=== PATIENT | male | born 1960 | race Caucasian/White ===

== ENCOUNTER 2019-12-21 14:21 | Emergency (ER) | payer OTHER, SELFPAY ==
--- NOTE | ~2019-12-21 | XR_ITS ---
EXAMINATION: XR chest 2V DATE: 12/21/2019 15:16 INDICATION: Mid to left chest pain TECHNIQUE: PA and lateral views of the chest are obtained. COMPARISON: 10/31/2018 FINDINGS: The lungs are free of acute opacities. There is no pleural effusion or pneumothorax. The ca rdiomediastinal silhouette is normal. There is mild thoracic spondylosis. IMPRESSION: 1. No acute cardiopulmonary abnormality. Reviewed, dictated and finalized at location A. T OR NUT CROPS FARM MANAGER
--- NOTE | 2019-12-21 14:52 | ECG_ITS ---
Measurements Intervals [place] Rate: 60 P: 40 [place]: 149 QRS: 39 QRSD: 117 T: 52 QT: 385 QTc: 386 Interpretive Statements SINUS RHYTHM INTRAVENTRICULAR CONDUCTION DELAY BORDERLINE ECG Electronically Signed On 12-21-2019 14:55:02 DISTILLERY LABORER by Manny Urban D.O.
[2019-12-21 14:53] VITALS: BP 125/77; PULSE 62; RESP 16; TEMP 36.9; O2SAT 98
[2019-12-21 15:06] LABS: Basophils Absolute Auto 0.1 K/mm3 (0.0-0.1); Basophils Percent Auto 0.9 % (0.2-1.2); Eosinophils Absolute Auto 0.1 K/mm3 (0-0.3); Eosinophils Percent Auto 1.7 % (0-4.4); Hematocrit 39.5 % (42.0-52.0); Hemoglobin 12.6 g/dL (14.0-18.0); Immature Granulocyte Absolute 0.08 K/mm3 (0.00-0.031); Immature Granulocyte Percent A 1.1 % (0-0.5); Lymphocytes Absolute Auto 2.15 K/mm3 (0.9-3.2); Lymphocytes Percent Auto 28.3 % (18.3-44.2); Mean Corpuscular HGB Conc 31.9 g/dl (32-36); Mean Corpuscular Hemoglobin 31.4 pg (26-34); Mean Corpuscular Volume 98.5 fl (80-100); Mean Platelet Volume 10.1 fl (7.4-10.4); Monocytes Absolute Auto 0.8 K/mm3 (0.1-0.6); Monocytes Percent Auto 10.8 % (2.6-8.5); Neutrophils Absolute Auto 4.4 K/mm3 (1.3-6.7); Neutrophils Percent Auto 57.2 % (45.5-73.1); Platelet Count Result 319 k/mm3 (150-375); Red Blood Count 4.01 M/mm3 (4.6-6.20); Red Cell Distribution Width 13.2 % (11.5-14.5); White Blood Count 7.6 K/mm3 (4.5-10.0)
[2019-12-21 15:20] LABS: Blood Urea Nitrogen 36 mg/dL (9-20); Calcium 9.3 mg/dL (8.4-10.2); Carbon Dioxide 26 mmol/L (22-30); Chloride 104 mmol/L (98-107); Estimated CRCL calculation 34 ml/min; Estimated Glomerular Filt Rate 25; Glucose 99 mg/dL (75-110); Potassium 4.5 mmol/L (3.4-5.0); Sodium 140 mmol/L (137-145)
[2019-12-21 15:31] LABS: Troponin I < 0.012 ng/mL (0.000-0.034)
--- NOTE | 2019-12-21 15:33 | ED.CHESTPAIN ---
HPI - Chest Pain General Chief Complaint: Chest Pain Stated Complaint: CP Time Seen by Provider: 12/21/19 15:09 Source: patient and RN notes reviewed Mode of arrival: ambulatory Limitations: no limitations History of Present Illness HPI narrative: Pt is a 59 y/o male presenting to the ED c/o CP radiating to shoulders and arms. Pt reports he started experiencing lt sided CP radiating to his bilateral shoulders and BUE at 1200 this afternoon. Pt states his pain has since alleviated, but notes it was an 8/10 on the pain scale during its onset. Pt also reports ORDONEZ, but denies N/V. Pt notes he took 1 baby aspirin earlier this morning and Ibuprofen x2 earlier today. Pt notes he has a Hx of Stress LA 1 year ago, and sees Dr. Tee as his Clean Up Helper Banquet. Pt states he had a negative Cardiac Catheterization a year ago with no blockages. Pt states his current feels similar to a previous LA. Pt notes he currently takes Metoprolol 25 mg BID, Amlodipine, and Omeprazole due to a Hx of GERD. Pt states he also has a Hx of Poly-cystic kidney disease. Pt notes he quit smoking a year ago. Pertinent past history: prior LA Onset (ago): hour(s) (5) Pain location: left chest Pain radiation: right arm, left arm, left shoulder and right shoulder Associated symptoms: other (ORDONEZ) Related Data Home Medications Medication Instructions Recorded Confirmed amlodipine 12/21/19 aspirin [Aspirin Low Dose] 12/21/19 metoprolol tartrate 12/21/19 omeprazole 12/21/19 Allergies Allergy/AdvReac Type Severity Reaction Status Date / Time No Known Allergies Allergy Verified 12/21/19 15:56 Review of Systems Review of Systems: All systems reviewed & are unremarkable except as noted in HPI and below Cardiovascular: Cardiovascular: Reports chest pain (Lt sided radiating to bilateral shoulders and BUE) Gastrointestinal: Gastrointestinal: Denies nausea and Denies vomiting Neurologic: Reports headache(s) PMFSH Past Medical History Medical History Anemia Ankle fracture, left Asthma COPD (chronic obstructive pulmonary disease) Emphysema of lung GERD (gastroesophageal reflux disease) HTN (hypertension) Myocardial infarction NSTEMI Pneumonia Polycystic kidney disease Surgical History Surgical History History of bladder surgery S/P cardiac catheterization Social History Social History Smoking status: Former smoker Exam Narrative: Exam Narrative: GENERAL: Well-appearing, well-nourished, and in no acute distress. HEAD: Normocephalic, atraumatic EYES: PERRLA and EOMI, conjunctiva clear without discharge THROAT:Mucous membranes moist, Oropharynx normal without erythema, exudate, peritonsillar swelling or fluctuance NECK: Supple, without lymphadenopathy or mass RESPIRATORY: No respiratory distress, Airway patent, Respirations non-labored, Clear to auscultation without rales, rhonchi or wheeze HEART: Regular rate and rhythm. No murmur heard. Normal peripheral pulses. ABDOMEN: Soft, nontender, nondistended, normal active bowel sounds. No masses. No rebound or guarding, No organomegaly. EXTREMITIES: No edema, normal strength with full range of motion. SKIN: Warm, dry, normal color without rash NEURO: Alert and oriented x3. CN 2-12 grossly intact. No focal deficits. PSYCH: Normal mood and affect. Course Course Emergency Course: PAtient presented with chest pain. He has history of LA but he had negative cath 1 year ago and equity structurer thought likely due to coronary spasms so he is on CCB. Patient has been pain free. I have discussed that he needs follow up with a railcar foreman. He does not need to be admitted at this time. Consultations Consultation #1: Discussed case with Cardiology CLOTHING WORKER Aviva Huitron. Presumptively coronary spasms seen in patients chart. If Troponins are negative pt can be discharged with follow-up. Date:
[2019-12-21] MEDS: ASPIRIN 81 MG CHEWABLE TABLET 324 MG PO (15:54)
[2019-12-21] MEDS: LACTATED RINGERS 1,000 ML 999 ML IV CONT (15:55)
[2019-12-21 15:56] LABS: Partial Thromboplastin Time 30.5 SECONDS (22.3-36.8); Prothrombin Time 12.7 Seconds (11.1-14.7)
[2019-12-21 16:00] VITALS: BP 139/98; PULSE 54; RESP 12; O2SAT 100
[2019-12-21 17:00] VITALS: BP 141/88; PULSE 55; RESP 14; O2SAT 100
[2019-12-21 18:00] VITALS: BP 149/88; PULSE 55; RESP 16; O2SAT 96
[2019-12-21 18:40] LABS: Troponin I < 0.012 ng/mL (0.000-0.034)
[2019-12-21 19:29] VITALS: BP 136/96; PULSE 55; RESP 13; O2SAT 100
== END 2019-12-21 19:31 | disposition home or self-care (01) ==
PROVIDERS: Emergency Medicine; Emergency Provider General Practice; PCP Internal Medicine
DX: R07.9 Chest pain, unspecified (principal); N18.9 Chronic kidney disease, unspecified; I12.9 Hypertensive chronic kidney disease with stage 1 through stage 4 chronic kidney disease, or unspecified chronic kidney disease; K21.9 Gastro-esophageal reflux disease without esophagitis; J43.9 Emphysema, unspecified; I25.2 Old myocardial infarction; Q61.3 Polycystic kidney, unspecified; Z79.82 Long term (current) use of aspirin; Z87.891 Personal history of nicotine dependence; I45.9 Conduction disorder, unspecified
CPT/HCPCS: 36415; 71046; 80048; 84484; 85025; 85610; 85730; 93005; 96360; 96361; 99284; A9270; J7120

== ENCOUNTER 2019-12-24 08:37 | Outpatient (CLI) | payer OTHER, SELFPAY ==
--- NOTE | ~2019-12-24 | US_ITS ---
EXAMINATION: US abdomen complete EXAM DATE: 12/24/2019 11:18 INDICATION: Polycystic kidneys. Abdominal bloating. TECHNIQUE: Multiple grayscale and Doppler images of the complete abdomen were obtained (by a technolo lazaro who performed the scan) and subsequently reviewed. Comparison is made to prior examination from 10/31/2018. FINDINGS: The abdominal aorta is normal in caliber. Visualized portion IVC is patent. The pancreatic head a nd body are normal in appearance. The pancreatic tail is not visualized. The liver has normal echogenicity and contour. Again there are multiple liver cysts. There is again a hyperechoic left liver lobe region measuring up to 2.7 cm, another region measuring 2.5 cm. These d o not appear significantly changed. There is no evidence of intrahepatic biliary duct dilation. Por amari venous flow was seen in the hepatopedal, normal direction and has normal Doppler waveform. Common bile duct measures 4 mm, which is normal. The gallbladder wall is normal in thickness, with ex pected amount of distention. No sonographic evidence of pericholecystic fluid. There is no cholelit hiases. Technologist performing exam reports patient did not demonstrate sonographic Ojeda's sign. Please note that this sign is less reliable in patients who have received pain medication. Right kidney: The right kidney measures 28 cm x 15 x 13 cm with innumerable cysts, autosomal dominant polycystic kidney disease. No definite evidence of hydronephrosis. Left kidney: Left kidney measures 25 x 10 x 12 cm, also innumerable cysts. No definite left-sided hyd ronephrosis. The spleen measures 11.8 x 6.5 centimeters and is morphologically normal. IMPRESSION: 1. Autosomal dominant polycystic kidney disease. 2. Liver cysts and at least 2 hyperechoic regions, which also appear unchanged. Reviewed, dictated and finalized at location B. TABLE OPERATOR IMPRESSION: 1. Autosomal dominant polycystic kidney disease. 2. Liver cysts and at least 2 hyperechoic regions, which also appear unchanged .
== END 2019-12-24 08:38 | disposition home or self-care (01) ==
LOC: CHSIMG 08:40
PROVIDERS: PCP Internal Medicine; Visit Provider Internal Medicine
DX: R14.0 Abdominal distension (gaseous) (principal); Q61.3 Polycystic kidney, unspecified
CPT/HCPCS: 76700

== ENCOUNTER 2020-02-15 08:17 | Outpatient (CLI) | payer OTHER, SELFPAY ==
[2020-02-15 08:32] LABS: Basophils Absolute Auto 0.07 K/mm3 (0.00-0.10); Eosinophils Absolute Auto 0.14 K/mm3 (0.02-0.50); Eosinophils Percent Auto 1.9 % (1.0-6.0); Hemoglobin 13.2 g/dL (14.0-18.0); Immature Granulocyte Absolute 0.07 K/mm3 (0.00-0.00); Lymphocytes Absolute Auto 2.11 K/mm3 (1.10-4.50); Lymphocytes Percent Auto 28.7 % (18.0-42.0); Mean Corpuscular HGB Conc 31.4 g/dL (32.0-36.0); Mean Corpuscular Hemoglobin 30.5 pg (27.0-31.0); Monocytes Absolute Auto 0.82 K/mm3 (0.10-0.90); Monocytes Percent Auto 11.2 % (2.0-11.0); Neutrophils Absolute Auto 4.1 K/mm3 (1.7-7.2); Neutrophils Percent Auto 56.2 % (50.0-70.0); Platelet Count Result 288 K/mm3 (150-420); Red Blood Count 4.33 M/mm3 (4.70-6.10); Red Cell Distribution Width 12.9 % (11.6-14.4); White Blood Count 7.3 K/mm3 (4.8-10.8)
[2020-02-15 08:47] LABS: Creatinine Urine 74.69 mg/dL (40-278); Total Protein Urine Random 36.5 mg/dL (0.0-11.9)
[2020-02-15 10:04] LABS: Albumin Level 4.1 g/dL (3.4-5.0); Anion Gap 14.1 mmol/L (7-16); Blood Urea Nitrogen 44 mg/dL (7-18); Calcium 9.2 mg/dL (8.5-10.1); Carbon Dioxide 28 mmol/L (21-32); Chloride 105 mmol/L (98-108); Estimated Glomerular Filt Rate 27; Glucose 106 mg/dL (70-99); Osmolality Calculated 305 mOsm/kg (285-295); Potassium 5.1 mmol/L (3.5-5.1); Sodium 142 mmol/L (136-145)
[2020-02-17 09:44] LABS: Parathyroid Intact 75 pg/mL (14-64)
[2020-02-18 02:03] LABS: Vitamin D 25 Hydroxy 25 ng/mL (30-100)
== END 2020-02-15 08:18 | disposition home or self-care (01) ==
LOC: CHSLAB 08:19
PROVIDERS: PCP Internal Medicine; Visit Provider Internal Medicine Nephrology
DX: N18.4 Chronic kidney disease, stage 4 (severe) (principal); Q61.3 Polycystic kidney, unspecified; I12.9 Hypertensive chronic kidney disease with stage 1 through stage 4 chronic kidney disease, or unspecified chronic kidney disease
CPT/HCPCS: 36415; 80069; 82306; 82570; 83970; 84156; 85025

== ENCOUNTER 2020-03-04 08:20 | Outpatient (CLI) | payer OTHER, SELFPAY ==
--- NOTE | ~2020-03-04 | MR_ITS ---
MRA OF THE BRAIN INDICATION: Autosomal dominant polycystic kidney disease. PROCEDURE: The study consist of multiple vertical and horizontal reconstructive images using informat ion obtained from a 3-D [id number] technique. COMPARISON: MRA dated 11/01/2018 FINDINGS: There is relatively normal and symmetrical flow seen within the anterior cerebral, middle c erebral and posterior cerebral arteries. The flow signals within the intracranial segments of the in ternal carotid arteries and the basilar artery are within normal limits. There are no focal abnormal ities to suggest a hemodynamically significant stenosis or aneurysm about the [place] of [place]. IMPRESSION: UNREMARKABLE MR INTRACRANIAL ANGIOGRAPHY STUDY. Reviewed, dictated and finalized at location A.
== END 2020-03-04 08:21 | disposition home or self-care (01) ==
LOC: ANHIMG 08:24
PROVIDERS: PCP Internal Medicine; Visit Provider Internal Medicine Nephrology
DX: Q61.3 Polycystic kidney, unspecified (principal); R51 Headache
CPT/HCPCS: 70544

== ENCOUNTER 2020-05-04 09:05 | Outpatient (CLI) | payer OTHER, SELFPAY ==
[2020-05-04 11:34] LABS: Carbon Dioxide 27 mmol/L (21-32); Chloride 106 mmol/L (98-108); Sodium 142 mmol/L (136-145)
[2020-05-04 11:35] LABS: Blood Urea Nitrogen 53 mg/dL (7-18); Calcium 9.1 mg/dL (8.5-10.1); Estimated Glomerular Filt Rate 21; Glucose 101 mg/dL (70-99); Osmolality Calculated 308 mOsm/kg (285-295); Phosphorus 4.4 mg/dL (2.6-4.7)
[2020-05-04 11:43] LABS: Creatinine Urine 111.51 mg/dL (40-278); Total Protein Urine Random 31.7 mg/dL (0.0-11.9)
== END 2020-05-04 09:06 | disposition home or self-care (01) ==
PROVIDERS: PCP Internal Medicine; Visit Provider Internal Medicine Nephrology
DX: I12.9 Hypertensive chronic kidney disease with stage 1 through stage 4 chronic kidney disease, or unspecified chronic kidney disease (principal); N18.4 Chronic kidney disease, stage 4 (severe); Q61.3 Polycystic kidney, unspecified
CPT/HCPCS: 36415; 80069; 82570; 84156

== ENCOUNTER 2020-05-15 10:46 | Observation (INO) | payer OTHER, SELFPAY ==
[2020-05-15] VITALS (13 sets, daily range): BP systolic 126–155; BP diastolic 76–90; PULSE 48–64; RESP 16–18; TEMP 36.5–36.8; O2SAT 95–99; BMI 23.6
--- NOTE | ~2020-05-15 | XR_ITS ---
EXAMINATION: XR chest 1V portable INDICATION: Chest pain TECHNIQUE: Portable AP chest at 1130 hours COMPARISON: 02/19/2020 FINDINGS: The lungs are free of acute opacities. There is no pleural effusion or pneumothorax. The ca rdiomediastinal silhouette is normal. The visualized bones and soft tissues are unremarkable. IMPRESSION: 1. No acute cardiopulmonary abnormality. Reviewed, dictated and finalized at location A.
--- NOTE | 2020-05-15 11:01 | ECG_ITS ---
Measurements Intervals [place] Rate: 53 P: 72 [place]: 165 QRS: 52 QRSD: 96 T: 69 QT: 391 QTc: 370 Interpretive Statements SINUS BRADYCARDIA BASELINE ARTIFACT- V2-V3 BORDERLINE ECG Electronically Signed On 05-16-2020 10:52:51 CDT by Manny Urban D.O.
--- NOTE | 2020-05-15 11:24 | ED.CHESTPAIN ---
HPI - Chest Pain General Chief Complaint: Chest Pain Stated Complaint: chest pains Mode of arrival: ambulatory Limitations: no limitations History of Present Illness HPI narrative: 60 y.o. male with CAD, s/p PR with HTN, PCKD, COPD and GERD started having chest symptoms about 2:30 this AM. He describes chest pressure, initially mild, associated with neck, bilateral upper extremity, shoulder and scapular angle radiation. The These episodes initially lasted 1 -2 minutes and occurred sporadically. At about 9:50 AM the episodes became more severe, #5-6/10, lasting up to 4 - 5 minutes and occurring several times/hour. He has no symptoms between episodes. Associated symptoms are mild, consisting of lightheadeness, nausea and difficulty getting a deep breath. He denies sweating. These symptoms resemble those he had Oct 2017 with his heart attack and in November 2019, evaluated at [facility], which pt states were attributed to muscle spasm. His GFR has been dropping. Cardiac stress test done by the kidney transplant providers at [facility] March of 2020 was reportedly normal. Risk Factors Coronary artery disease risk factors: smoking history Related Data Home Medications Medication Instructions Recorded Confirmed amlodipine [Norvasc] See Rx Instructions .ROUTE .COMPLEX 12/21/19 05/15/20 aspirin [Aspirin Low Dose] See Rx Instructions .ROUTE .COMPLEX 12/21/19 05/15/20 metoprolol tartrate See Rx Instructions .ROUTE .COMPLEX 12/21/19 05/15/20 omeprazole See Rx Instructions .ROUTE .COMPLEX 12/21/19 05/15/20 Allergies Allergy/AdvReac Type Severity Reaction Status Date / Time No Known Allergies Allergy Verified 04/06/20 10:50 Review of Systems Constitutional: Constitutional: Denies chills and Denies fever(s) Cardiovascular: Cardiovascular: Reports no additional cardiovascular complaints Respiratory: Respiratory: Denies cough Gastrointestinal: Gastrointestinal: Denies abdominal pain, Reports constipation and Denies vomiting Genitourinary: Genitourinary: Denies dysuria Neurologic: Denies dizziness PMFSH Past Medical History Medical History Anemia Ankle fracture, left Asthma CKD (chronic kidney disease) stage 4, GFR 15-29 ml/min Colon cancer screening COPD (chronic obstructive pulmonary disease) Emphysema of lung GERD (gastroesophageal reflux disease) HTN (hypertension) Myocardial infarction NSTEMI Pneumonia Polycystic kidney disease Surgical History Surgical History History of bladder surgery S/P cardiac catheterization Family History Family History (Updated 05/15/20 @ 11:44 by Tristan Melendez MD) Mother PCK (polycystic kidney disease) Social History Social History (Updated 05/15/20 @ 12:34 by Tristan Melendez MD) Years smoked: 40 Smoking status: Former smoker Living arrangements: with family Gender identity (if verbalized by the patient): Male Sexual Orientation (if Verbalized by the Patient): Straight or Heterosexual Exam Const: General: no acute distress Orientation/consciousness: patient oriented x3 HENMT: Mouth: Yes Normal oral and palatal mucosa present Neck: Neck: no lymphadenopathy Chest: Chest palpation & inspection: normal inspection of the chest and no tenderness Resp: Effort & Inspection: normal respiratory effort and no retractions Auscultation: no rales, no wheezes and diminished lung sounds Cardio: Rate: regular rate Other: very distant heart sounds, no murmur appreciated. JVD: flat at 30 degrees GI: Inspection: distended Other: nontender. No masses or organomegally : General: Yes no CVA tenderness Skin: General skin exam: normal color Rashes: no rashes Neuro: General: patient oriented x3 and moves all extremities Extrem: General: normal to inspection and no edema Psych: Affect: Anxious affect present Course Course Emergency Course: Pain resolved meena
[2020-05-15] MEDS: MAG HYDROX/ALUMINUM HYD/SIMETH 30 ML, PHENobarb/HYOSCY/ATROPINE/SCOP 32.4 MG, LIDOCAINE... PO (11:28)
[2020-05-15 11:29] LABS: Basophils Absolute Auto 0.06 K/mm3 (0.00-0.10); Basophils Percent Auto 0.8 % (0.0-1.0); Eosinophils Absolute Auto 0.19 K/mm3 (0.02-0.50); Eosinophils Percent Auto 2.5 % (1.0-6.0); Hematocrit 37.5 % (40.0-54.0); Hemoglobin 12.2 g/dL (14.0-18.0); Immature Granulocyte Absolute 0.05 K/mm3 (0.00-0.00); Immature Granulocyte Percent A 0.7 % (0.0-0.0); Lymphocytes Absolute Auto 2.23 K/mm3 (1.10-4.50); Lymphocytes Percent Auto 29.9 % (18.0-42.0); Mean Corpuscular HGB Conc 32.5 g/dL (32.0-36.0); Mean Corpuscular Hemoglobin 31.4 pg (27.0-31.0); Mean Corpuscular Volume 96.4 fL (78.0-102.0); Mean Platelet Volume 10.4 fl (8.7-11.0); Monocytes Absolute Auto 0.91 K/mm3 (0.10-0.90); Monocytes Percent Auto 12.2 % (2.0-11.0); Neutrophils Percent Auto 53.9 % (50.0-70.0); Platelet Count Result 272 K/mm3 (150-420); Red Blood Count 3.89 M/mm3 (4.70-6.10); Red Cell Distribution Width 13.1 % (11.6-14.4); White Blood Count 7.5 K/mm3 (4.8-10.8)
[2020-05-15] MEDS: ASPIRIN 81 MG CHEWABLE TABLET 324 MG PO (11:30)
[2020-05-15 11:48] LABS: Alanine Aminotransferase 24 U/L (16-63); Albumin Level 3.7 g/dL (3.4-5.0); Alkaline Phosphatase 83 U/L (46-116); Anion Gap 11.5 mmol/L (7-16); Aspartate Amino Transferase 13 U/L (15-37); Bilirubin,Total 0.3 mg/dL (0.00-1.00); Blood Urea Nitrogen 39 mg/dL (7-18); Calcium 8.9 mg/dL (8.5-10.1); Carbon Dioxide 27 mmol/L (21-32); Chloride 112 mmol/L (98-108); Estimated CRCL calculation 34 ml/min; Estimated Glomerular Filt Rate 29; Glucose 90 mg/dL (70-99); Lipase 91 U/L (73-393); Osmolality Calculated 311 mOsm/kg (285-295); Potassium 4.5 mmol/L (3.5-5.1); Sodium 146 mmol/L (136-145); Troponin I < 0.02 ng/mL (0.00-0.056)
[2020-05-15 11:49] LABS: BNP 72 pg/mL (0-100)
[2020-05-15 11:50] LABS: Partial Thromboplastin Time 27.8 SEC (22.3-31.6)
[2020-05-15 11:53] LABS: D Dimer 0.27 mg/L (0.19-0.50)
[2020-05-15 13:06] LABS: Add Urine Microscopic? NO; Appearance Urine Clear (Clear); Bilirubin Urine Negative (Negative); Blood Urine Negative (Negative); Color Urine Yellow (Yellow); Glucose Urine UA Negative (Negative); Ketones Urine Negative (Negative); Leukocyte Esterase Ur Negative LEU/UL (Negative); Nitrate Urine Negative (Negative); Protein Urine Negative (Negative); Specific Grav Ur 1.015 (1.010-1.020); Urobilinogen Urine 0.2 mg/dL (0.2-1.0); pH Urine 5.5 (5.0-8.0)
--- NOTE | 2020-05-15 14:09 | PM.IMHP ---
H&P: HPI History of Present Illness Chief complaint: chest pains <SAM Javier - Last Filed: 05/15/20 15:27> Narrative: Abel Browne is a 60 year old male that presented to [facility] ED with complaints of chest discomfort. Patient has a past medical history of CAD, history of [place], hypertension, CKD stage 4, COPD, GERD, hypertension, pneumonia, polycystic kidney disease, colon cancer screening, COPD and anemia. According to patient in bed to 2:30 a.m. he started experiencing chest discomfort that radiated to both of his upper extremities and up his neck. patient noted that last time he had similar symptoms he was having a heart attack.. he also has a history of GERD he also notes that occasions he felt the same way with his GERD symptoms. he noted that he had at least a half a dozen episodes before he came to the ED. patient was recently also at [facility] in November of 2019 for similar symptoms. [place] was ruled out and patient was treated for muscle spasms. Patient also experienced lightheaded with nausea and shortness of breath. vital signs are 146/84, 57, 18, 96% on air. while in the ED patient received a EKG which indicates sinus John with heart rate in the 40s, troponin was negative x1, sodium slightly elevated BUN and creatinine elevated, CK-MB negative, chest x-ray unremarkable. patient will be admitted for chest pain and acute on chronic renal failure and bradycardia. patient continues to complain of chest discomfort. Patient denies palpitation, extremity numbness, lightheadness, dizziness, constipation, diarrhea, chills or fever. <ASM Javier - Last Filed: 05/15/20 15:27> Review of Systems Review of Systems: Narrative: CONSTITUTIONAL : anxious and fatigued HEENT: Eyes: No diplopia or blurred vision. ENT: No earache, sore throat or runny nose. CARDIOVASCULAR: chest discomfort that radiates to the bilateral upper extremities and neck RESPIRATORY: complain of shortness of breath No cough, PND or orthopnea. GASTROINTESTINAL: No nausea, vomiting or diarrhea. GENITOURINARY: No dysuria, frequency or urgency. MUSCULOSKELETAL: No muscle, back pain, joint pain or stiffness. SKIN: No change in skin, hair or nails. NEUROLOGIC: No paresthesias, fasciculations, seizures or weakness. complained of lightheadedness that has resolved PSYCHIATRIC: No disorder of thought or mood. ENDOCRINE: No heat or cold intolerance, polyuria or polydipsia. HEMATOLOGICAL: No easy bruising or bleeding. <SAM Javier - Last Filed: 05/15/20 15:27> [facility] Past Medical History Medical History: Medical History Anemia Ankle fracture, left Asthma CKD (chronic kidney disease) stage 4, GFR 15-29 ml/min Colon cancer screening COPD (chronic obstructive pulmonary disease) Emphysema of lung GERD (gastroesophageal reflux disease) HTN (hypertension) Myocardial infarction NSTEMI Pneumonia Polycystic kidney disease <SAM Javier - Last Filed: 05/15/20 15:27> Surgical History Surgical History: Surgical History History of bladder surgery S/P cardiac catheterization <SAM Javier - Last Filed: 05/15/20 15:27> Family History Family History: Family History (Updated 05/15/20 @ 11:44 by Tristan Melendez MD) Mother PCK (polycystic kidney disease) <SAM Javier - Last Filed: 05/15/20 15:27> Social History Social History: Social History (Updated 05/15/20 @ 12:34 by Tristan Melendez MD) Smoking packs per day: 1.5 Smoking cigarettes per day: 30.0 Years smoked: 40 Smoking pack-years: 60.00 Smoking status: Former smoker Tobacco type: cigarettes Smoking end date: 09/27/18 Alcohol intake: never Substance use: never Substance use type: does not use Living arrangements: with family Gender identity (if verbalized by the patient): Male Se
--- NOTE | 2020-05-15 14:16 | ADMGEN ---
This patient, Abel Bronwe, was admitted to 2nd Floor Room 205-2. Patient/family oriented to hospital policies and general routines including ID bracelet, bed and alarms, visiting hours, pain management, procedures, bathroom and other care routines, personal items, smoking policy, room service/diet, and visiting hours. Valuables list has been completed. Information on how to activate the Rapid Response Team has been discussed. Patient/Family are encouraged to report perceived risks to care and to ask questions if they do not understand what they are told or what they should do.
[2020-05-15] MEDS: ACETAMINOPHEN 500 MG TABLET 1000 MG PO (15:35)
[2020-05-15] MEDS: MAG HYDROX/AL HYDROX/SIMETH 30 ML UDC PO (15:36)
[2020-05-15] MEDS: amLODIPine BESYLATE 5 MG TABLET 2.5 MG PO (15:37)
[2020-05-15] MEDS: PHARMACIST COMMUNICATION ORDER 1 EACH XX (15:56)
[2020-05-15 17:38] LABS: Troponin I < 0.02 ng/mL (0.00-0.056)
[2020-05-15] MEDS: PANTOPRAZOLE 40 MG TABLET PO (21:00)
[2020-05-15 22:54] LABS: Troponin I < 0.02 ng/mL (0.00-0.056)
[2020-05-16 03:53] VITALS: BP 133/81; PULSE 66; RESP 16; TEMP 36.5; O2SAT 95
[2020-05-16] MEDS: BUDESONIDE/FORMOTEROL (*SP) 160-4.5 MCG 6 GM INH 2 PUFF INHALATION (05:32)
[2020-05-16 06:48] LABS: Troponin I < 0.02 ng/mL (0.00-0.056)
[2020-05-16 07:40] VITALS: BP 147/90; PULSE 82; RESP 20; TEMP 36.8; O2SAT 97
[2020-05-16] MEDS: ENOXAPARIN 40 MG/0.4 ML SYRINGE SUB-Q (08:00)
[2020-05-16] MEDS: LACTULOSE 20 GM/30 ML UDC 10 GM PO (08:00)
[2020-05-16] MEDS: PANTOPRAZOLE 40 MG TABLET PO (08:00)
[2020-05-16] MEDS: ASPIRIN 81 MG ENTERIC TABLET PO (08:00)
[2020-05-16] MEDS: amLODIPine BESYLATE 5 MG TABLET 2.5 MG PO (08:00)
[2020-05-16 10:24] LABS: Hemoglobin 11.9 g/dL (14.0-18.0); Mean Corpuscular HGB Conc 31.3 g/dL (32.0-36.0); Mean Corpuscular Hemoglobin 30.7 pg (27.0-31.0); Mean Corpuscular Volume 98.2 fL (78.0-102.0); Mean Platelet Volume 10.7 fl (8.7-11.0); Platelet Count Result 256 K/mm3 (150-420); Red Blood Count 3.87 M/mm3 (4.70-6.10); Red Cell Distribution Width 13.2 % (11.6-14.4); White Blood Count 7.2 K/mm3 (4.8-10.8)
[2020-05-16 10:56] LABS: Alanine Aminotransferase 25 U/L (16-63); Albumin Level 3.6 g/dL (3.4-5.0); Alkaline Phosphatase 75 U/L (46-116); Aspartate Amino Transferase 14 U/L (15-37); Bilirubin,Total 0.5 mg/dL (0.00-1.00); Blood Urea Nitrogen 36 mg/dL (7-18); Calcium 8.7 mg/dL (8.5-10.1); Carbon Dioxide 27 mmol/L (21-32); Estimated CRCL calculation 37 ml/min; Estimated Glomerular Filt Rate 30; Glucose 93 mg/dL (70-99); Total Protein 6.3 g/dL (6.4-8.2)
[2020-05-16 11:53] VITALS: BP 130/81; PULSE 86; RESP 20; TEMP 36.9; O2SAT 96
[2020-05-16] MEDS: ACETAMINOPHEN 500 MG TABLET 1000 MG PO (11:59)
[2020-05-16] MEDS: CYCLOBENZAPRINE HCL 10 MG TABLET 5 MG PO (12:00)
--- NOTE | 2020-05-16 12:12 | P.DS_ITS ---
DS: Admitting Diagnosis Admitting Diagnosis Admitting Diagnosis: Chest pain, unspecified DS: Discharge Diagnosis Discharge Diagnosis (1) Chest pain: Qualifiers: Chest pain type: unspecified Qualified Code(s): R07.9 - Chest pain, unspecified Code(s): R07.9 - Chest pain, unspecified Status: Acute Assessment and Plan: * not believed to be cardiac related * troponin negative x4 * continue aspirin * CK-MB Negative * stress test results ordered from [facility] * patient has a history of cardiac catheterization and chest pain * EKG sinus tach heart rate in the 40s (2) CKD (chronic kidney disease) stage 4, GFR 15-29 ml/min: Code(s): N18.4 - Chronic kidney disease, stage 4 (severe) Status: Acute Assessment and Plan: * patient with history of polycystic kidneys * patient not qualified for transplant * (3) Anemia: Qualifiers: Anemia type: other cause Other causes of anemia: other cause, not classified Qualified Code(s): D64.89 - Other specified anemias Code(s): D64.9 - Anemia, unspecified Status: Acute Assessment and Plan: * secondary to chronic kidney disease * follow-up with nephrology (4) Myocardial infarction: Qualifiers: Involved coronary artery: unspecified coronary artery Myocardial infarction type: unspecified Qualified Code(s): I21.9 - Acute myocardial infarction, unspecified Code(s): I21.9 - Acute myocardial infarction, unspecified Status: Acute Assessment and Plan: * patient with a history of NM that occurred [address] did not indicate blockage patient placed on medication * stress test in November at [facility] per patient negative results * patient has a history of cardiac catheterization (5) Polycystic kidney disease: Code(s): Q61.3 - Polycystic kidney, unspecified Status: Acute Assessment and Plan: * patient worked up for kidney transplant did meet criteria does have plans for right nephrectomy with at [facility] * (6) DVT prophylaxis: Code(s): Z29.9 - Encounter for prophylactic measures, unspecified Status: Acute Assessment and Plan: * continue Lovenox (7) Bradycardia: Code(s): R00.1 - Bradycardia, unspecified Status: Acute Assessment and Plan: * patient takes metoprolol 25 mg bid notified director medical writing informed the patient is bradycardia, decided to continue the metoprolol 25 mg b.i.d. * continue telemetry * EKG sinus John heart rates in the 40s * patient has a history of bradycardia per patient DS: Summary Hospital Course Hospital Course: Patient admitted to [facility] to rule out NM. all tests negative for NM patient will discharge home today. I did contact Raysa Farrar GOLF CART REPAIRER for Dr Tee and informed her that while patient was here his heart rate did drop in the upper 40s-50. and notify her that patient is metoprolol 25 mg bid. we decided to continue metoprolol 25mg b.i.d.. patient is asymptomatic. patient informed to follow-up with Dr. Tee. Patient able to tolerate all meals , slept well and ambulate at baseline. Patient denies SOB, CP, palpitation, extremity numbness, lightheadness, dizziness, constipation, diarrhea, chills or fever. Patient agree that they are ready for discharge and discharge plan. Time Spent with Patient Time attestation: Total time spent providing and/or coordinating discharge services:60 Exam Narrative: Exam Narrative: General: A well-developed, well-nourished male
--- NOTE | 2020-05-16 12:12 | PM.DS ---
DS: Admitting Diagnosis Admitting Diagnosis Admitting Diagnosis: Chest pain, unspecified DS: Discharge Diagnosis Discharge Diagnosis (1) Chest pain: Qualifiers: Chest pain type: unspecified Qualified Code(s): R07.9 - Chest pain, unspecified Code(s): R07.9 - Chest pain, unspecified Status: Acute Assessment and Plan: not believed to be cardiac related troponin negative x4 continue aspirin CK-MB Negative stress test results ordered from [place] [facility] patient has a history of cardiac catheterization and chest pain EKG sinus tach heart rate in the 40s (2) CKD (chronic kidney disease) stage 4, GFR 15-29 ml/min: Code(s): N18.4 - Chronic kidney disease, stage 4 (severe) Status: Acute Assessment and Plan: patient with history of polycystic kidneys patient not qualified for transplant (3) Anemia: Qualifiers: Anemia type: other cause Other causes of anemia: other cause, not classified Qualified Code(s): D64.89 - Other specified anemias Code(s): D64.9 - Anemia, unspecified Status: Acute Assessment and Plan: secondary to chronic kidney disease follow-up with nephrology (4) Myocardial infarction: Qualifiers: Involved coronary artery: unspecified coronary artery Myocardial infarction type: unspecified Qualified Code(s): I21.9 - Acute myocardial infarction, unspecified Code(s): I21.9 - Acute myocardial infarction, unspecified Status: Acute Assessment and Plan: patient with a history of VT that occurred [address] did not indicate blockage patient placed on medication stress test in November at [facility] per patient negative results patient has a history of cardiac catheterization (5) Polycystic kidney disease: Code(s): Q61.3 - Polycystic kidney, unspecified Status: Acute Assessment and Plan: patient worked up for kidney transplant did meet criteria does have plans for right nephrectomy with at [facility] (6) DVT prophylaxis: Code(s): Z29.9 - Encounter for prophylactic measures, unspecified Status: Acute Assessment and Plan: continue Lovenox (7) Bradycardia: Code(s): R00.1 - Bradycardia, unspecified Status: Acute Assessment and Plan: patient takes metoprolol 25 mg bid notified information services manager informed the patient is bradycardia, decided to continue the metoprolol 25 mg b.i.d. continue telemetry EKG sinus John heart rates in the 40s patient has a history of bradycardia per patient DS: Summary Hospital Course Hospital Course: Patient admitted to [facility] to rule out VT. all tests negative for VT patient will discharge home today. I did contact Raysa Farrar NP for Dr Tee and informed her that while patient was here his heart rate did drop in the upper 40s-50. and notify her that patient is metoprolol 25 mg bid. we decided to continue metoprolol 25mg b.i.d.. patient is asymptomatic. patient informed to follow-up with Dr. Tee. Patient able to tolerate all meals , slept well and ambulate at baseline. Patient denies SOB, CP, palpitation, extremity numbness, lightheadness, dizziness, constipation, diarrhea, chills or fever. Patient agree that they are ready for discharge and discharge plan. Time Spent with Patient Time attestation: Total time spent providing and/or coordinating discharge services:60 Exam Narrative: Exam Narrative: General: A well-developed, well-nourished male sitting up in bed no acute distress. HEENT: Normocephalic, atraumatic. PERRL, EOMI. Sclerae anicteric. Oral mucosa moist. Oropharynx clear. Neck: Supple. Respiratory: Lungs are clear to auscultation bilaterally. Cardiovascular: bradycardic Gastrointestinal: Abdomen is soft, nontender, and nondistended with positive bowel sounds. No organomegaly. Skin: Warm, dry, and slightly pale.. No rash or lesio
[2020-05-16 12:37] LABS: Anion Gap 14.8 mmol/L (7-16); Chloride 107 mmol/L (98-108); Osmolality Calculated 306 mOsm/kg (285-295); Potassium 4.8 mmol/L (3.5-5.1); Sodium 144 mmol/L (136-145)
== END 2020-05-16 13:40 | disposition home or self-care (01) ==
LOC: CHSED 12:39 → CHS2ND 13:40
PROVIDERS: Nurse Practitioner; Admitting Provider Family Medicine; Emergency Provider Family Medicine; PCP Internal Medicine; Visit Provider Family Medicine
DX: R07.9 Chest pain, unspecified (principal); J44.9 Chronic obstructive pulmonary disease, unspecified; I10 Essential (primary) hypertension; K21.9 Gastro-esophageal reflux disease without esophagitis; Q61.3 Polycystic kidney, unspecified; N18.4 Chronic kidney disease, stage 4 (severe); I25.10 Atherosclerotic heart disease of native coronary artery without angina pectoris; R06.02 Shortness of breath; I25.2 Old myocardial infarction; Z87.891 Personal history of nicotine dependence
CPT/HCPCS: 36415; 71045; 80053; 81003; 82553; 83690; 83880; 84484; 85025; 85027; 85380; 85730; 93005; 96372; 96374; 99284; 99285; A9270; G0378; J1650; J2060

== ENCOUNTER 2020-05-25 01:13 | Outpatient (CLI) | payer OTHER, SELFPAY ==
[2020-05-25 19:19] LABS: SARS-CoV-2 RNA PCR Negative
== END 2020-05-25 01:14 | disposition home or self-care (01) ==
LOC: ANHCOVIDDT 01:13
PROVIDERS: PCP Internal Medicine; Visit Provider Internal Medicine Gastroenterology
DX: Z01.818 Encounter for other preprocedural examination (principal); Z11.59 Encounter for screening for other viral diseases
CPT/HCPCS: 87635; C9803; U0003

== ENCOUNTER 2020-05-27 02:26 | Day surgery (SDC) | payer OTHER, SELFPAY ==
[2020-05-17 12:33] VITALS: BMI 27.0
[2020-05-27 06:24] VITALS: BP 144/96; PULSE 67; RESP 18; TEMP 36.2; O2SAT 97
[2020-05-27] MEDS: LACTATED RINGERS 1,000 ML 150 ML IV CONT (06:54)
--- NOTE | 2020-05-27 07:16 | WPDANESEPPF ---
Anes - Initial Pre Proc Eval Procedure: Operation Date: 05/27/20 08:00 Proposed Procedures p Screening Colonoscopy - Milind Travis MD Date/Time: 05/27/20 07:16 Surgeon: Milind Travis MD Pre Op Diagnosis: Neoplasm Screening Patient Data Age: 60 Gender: M Height: 1.91 m Weight: 96.5 kg Last Vital Signs Temp 36.2 C L 05/27/20 06:24 Pulse 67 05/27/20 06:24 Resp 18 05/27/20 06:24 BP 144/96 H 05/27/20 06:24 Pulse Ox 97 05/27/20 06:24 Allergies Allergy/AdvReac Type Severity Reaction Status Date / Time No Known Allergies Allergy Verified 05/27/20 06:16 Home Medications Medication Instructions Recorded Confirmed Type amlodipine [Norvasc] See Rx Instructions .ROUTE .COMPLEX 12/21/19 05/27/20 History aspirin [Aspirin Low Dose] See Rx Instructions .ROUTE .COMPLEX 12/21/19 05/17/20 History omeprazole See Rx Instructions .ROUTE .COMPLEX 12/21/19 05/27/20 History cyclobenzaprine 5 mg PO Q8H PRN #20 tablet 05/16/20 05/17/20 Rx lorazepam [Ativan] 0.5 mg PO BID PRN #20 tablet 05/16/20 05/17/20 Rx metoprolol tartrate 25 mg PO BID #30 tablet 05/16/20 05/27/20 Rx trazodone 50 mg PO HS PRN #15 tablet 05/16/20 05/27/20 Rx lactulose 05/17/20 History Patient hx anesthesia problems: none Family hx anesthesia problems: none PMFSH Surgical History Surgical History History of bladder surgery S/P cardiac catheterization Family History Family History (Updated 05/15/20 @ 11:44 by Tristan Melendez MD) Mother PCK (polycystic kidney disease) Social History Social History (Updated 05/15/20 @ 12:34 by Tristan Melendez MD) Smoking packs per day: 1.5 Smoking cigarettes per day: 30.0 Years smoked: 40 Smoking pack-years: 60.00 Smoking status: Former smoker Tobacco type: cigarettes Smoking end date: 09/27/18 Alcohol intake: never Substance use: never Substance use type: does not use Gender identity (if verbalized by the patient): Male Sexual Orientation (if Verbalized by the Patient): Straight or Heterosexual Spiritual care concerns: No Anes - Eval Final PreProcedure Day of Procedure 05/27/20 07:16 Patient weight: overweight Heart: regular rate and rhythm Lungs: clear to auscultation and normal air movement Airway: Mallampati scale class II Neurological: alert and oriented Last oral intake: >/= 8 hours ASA classification: III Emergent: no Anesthetic plan: proceed Anesthesia type and monitoring: general GIVS Informed Consent: The patient's anesthetic plan and its attendant risks and benefits were discussed with the patient/family/POA. Questions were solicited and answers provided to the satisfaction of the patient/family/POA.
--- NOTE | 2020-05-27 07:54 | PM.HPGS ---
History of Present Illness History of Present Illness Consent: Risks, benefits, and alternatives have been discussed and questions answered. Patient agrees to proceed with procedure. Chief complaint: Neoplasm Screening Narrative: Abel Browne is a 60 year old male here for screening colonoscopy Review of Systems Constitutional: Constitutional: Denies headache(s) and Denies weakness Eyes: Eyes: Denies blurry vision ENT: Reports Normal hearing present, Denies headache(s) and Denies neck pain Cardiovascular: Cardiovascular: Denies chest pain and Denies dyspnea Respiratory: Respiratory: Denies dyspnea Gastrointestinal: Gastrointestinal: Reports no additional gastrointestinal complaints Genitourinary: Genitourinary: Denies dysuria Musculoskeletal: Musculoskeletal: Denies neck pain Integumentary/Breasts: Skin/Breast: Denies dry skin Neurologic: Reports Normal hearing present, Denies headache(s) and Denies weakness Psychiatric: Psychiatric: Denies anxiety Endocrine: Endocrine: Denies change in body appearance Hematologic/Lymphatic: Hematologic/Lymphatic: Denies easy bleeding Allergic/Immunologic: Allergic/Immunologic: Denies urticaria PMFSH Surgical History Surgical History History of bladder surgery S/P cardiac catheterization Family History Family History (Updated 05/15/20 @ 11:44 by Tristan Melendez MD) Mother PCK (polycystic kidney disease) Social History Social History (Updated 05/15/20 @ 12:34 by Tristan Melendez MD) Smoking packs per day: 1.5 Smoking cigarettes per day: 30.0 Years smoked: 40 Smoking pack-years: 60.00 Smoking status: Former smoker Tobacco type: cigarettes Smoking end date: 09/27/18 Alcohol intake: never Substance use: never Substance use type: does not use Gender identity (if verbalized by the patient): Male Sexual Orientation (if Verbalized by the Patient): Straight or Heterosexual Spiritual care concerns: No Meds Home Medications and Allergies Home Medications Medication Instructions Recorded Confirmed Type amlodipine [Norvasc] See Rx Instructions .ROUTE .COMPLEX 12/21/19 05/27/20 History aspirin [Aspirin Low Dose] See Rx Instructions .ROUTE .COMPLEX 12/21/19 05/17/20 History omeprazole See Rx Instructions .ROUTE .COMPLEX 12/21/19 05/27/20 History cyclobenzaprine 5 mg PO Q8H PRN #20 tablet 05/16/20 05/17/20 Rx lorazepam [Ativan] 0.5 mg PO BID PRN #20 tablet 05/16/20 05/17/20 Rx metoprolol tartrate 25 mg PO BID #30 tablet 05/16/20 05/27/20 Rx trazodone 50 mg PO HS PRN #15 tablet 05/16/20 05/27/20 Rx lactulose 05/17/20 History Allergies Allergy/AdvReac Type Severity Reaction Status Date / Time No Known Allergies Allergy Verified 05/27/20 06:16 Vital Signs Vital Signs - 24 hr 05/27/20 06:24 Temperature 97.2 F L Pulse Rate 67 Respiratory Rate 18 Blood Pressure 144/96 H Pulse Oximetry 97 Exam Const: General: comfortable and no acute distress HENMT: General nose exam: Normal nares present Eyes: General: appearance normal, both eyes and all related structures Neck: Neck: no JVD Resp: Auscultation: clear to auscultation bilaterally Cardio: Rate: regular rate Rhythm: regular rhythm GI: Inspection: non-distended GI Palp: Yes Soft to palpation Skin: General skin exam: normal color Neuro: General: gait normal Speech: normal speech Extrem: General: normal to inspection Psych: Mental Status: mental status grossly normal Assessment and Plan Assessment and plan (1) Colon cancer screening: Code(s): Z12.11 - Encounter for screening for malignant neoplasm of colon Status: Acute Assessment and Plan: will proceed with colonoscopy (2) Polycystic kidney disease: Code(s): Q61.3 - Polycystic kidney, unspecified Status: Acute (3) CKD (chronic kidney disease) stage 4, GFR 15-29 ml/min: Code(s): N18.4 - Chronic kidney dise
[2020-05-27 08:15] VITALS: BP 82/51; PULSE 71; RESP 14; O2SAT 96
[2020-05-27 08:25] VITALS: BP 88/53; PULSE 68; RESP 14; O2SAT 98
[2020-05-27 08:35] VITALS: BP 114/72; PULSE 55; RESP 22; O2SAT 99
== END 2020-05-27 08:44 | disposition home or self-care (01) ==
PROVIDERS: PCP Internal Medicine; Visit Provider Internal Medicine Gastroenterology
PROC: 0DJD8ZZ Inspection of Lower Intestinal Tract, Via Natural or Artificial Opening Endoscopic (ICD-10-PCS; CPT 45378; principal; 2020-05-27 08:00)
DX: Z12.11 Encounter for screening for malignant neoplasm of colon (principal); K57.30 Diverticulosis of large intestine without perforation or abscess without bleeding; K62.89 Other specified diseases of anus and rectum; K64.8 Other hemorrhoids; Q61.3 Polycystic kidney, unspecified; N18.4 Chronic kidney disease, stage 4 (severe); Z87.891 Personal history of nicotine dependence; Z79.82 Long term (current) use of aspirin
CPT/HCPCS: 45378; J2704; J7120

== ENCOUNTER 2020-06-20 12:19 | Outpatient (CLI) | payer OTHER, SELFPAY ==
[2020-06-20 13:05] LABS: Creatinine Urine 103.19 mg/dL (40-278); Total Protein Urine Random 56.9 mg/dL (0.0-11.9)
[2020-06-20 13:31] LABS: Albumin Level 3.2 g/dL (3.4-5.0); Anion Gap 11 mmol/L (8-16); Blood Urea Nitrogen 71 mg/dL (7-18); Calcium 8.9 mg/dL (8.5-10.1); Carbon Dioxide 23 mmol/L (21-32); Chloride 103 mmol/L (98-108); Estimated Glomerular Filt Rate 12; Glucose 102 mg/dL (70-99); Osmolality Calculated 304 mOsm/kg (285-295); Potassium 5.7 mmol/L (3.5-5.1); Sodium 137 mmol/L (136-145)
[2020-06-22 11:14] LABS: Vitamin D 25 Hydroxy 20 ng/mL (30-100)
[2020-06-23 14:38] LABS: Parathyroid Intact 55 pg/mL (14-64)
== END 2020-06-20 12:20 | disposition home or self-care (01) ==
LOC: CHSLAB 12:21
PROVIDERS: PCP Internal Medicine; Visit Provider Internal Medicine Nephrology
DX: I12.9 Hypertensive chronic kidney disease with stage 1 through stage 4 chronic kidney disease, or unspecified chronic kidney disease (principal); N18.4 Chronic kidney disease, stage 4 (severe); Q61.3 Polycystic kidney, unspecified
CPT/HCPCS: 36415; 80069; 82306; 82570; 83970; 84156

== ENCOUNTER 2020-07-01 09:03 | Outpatient (CLI) | payer OTHER, SELFPAY ==
[2020-07-01 10:18] LABS: Albumin Level 3.7 g/dL (3.4-5.0); Anion Gap 6 mmol/L (8-16); Blood Urea Nitrogen 65 mg/dL (7-18); Calcium 9.2 mg/dL (8.5-10.1); Carbon Dioxide 27 mmol/L (21-32); Chloride 105 mmol/L (98-108); Estimated Glomerular Filt Rate 10; Glucose 131 mg/dL (70-99); Osmolality Calculated 306 mOsm/kg (285-295); Phosphorus 5.1 mg/dL (2.6-4.7); Potassium 6.1 mmol/L (3.5-5.1); Sodium 138 mmol/L (136-145)
== END 2020-07-01 09:04 | disposition home or self-care (01) ==
LOC: CHSLAB 09:05
PROVIDERS: PCP Internal Medicine; Visit Provider Internal Medicine Nephrology
DX: N18.5 Chronic kidney disease, stage 5 (principal)
CPT/HCPCS: 36415; 80069

== ENCOUNTER 2020-07-03 09:40 | Emergency (ER) | payer OTHER, SELFPAY ==
--- NOTE | ~2020-07-03 | CT_ITS ---
EXAMINATION: CT abdomen pelvis wo con DATE: 07/03/2020 10:41 INDICATION: Patient status post right nephrectomy on 06/14/2020 with pain at the incision site. TECHNIQUE: Computed tomography (CT) of the abdomen and pelvis was performed without intravenous contr ast. The dose-length product (DLP) was 675.75 mGy-cm. Automated exposure control and iterative recons truction technique were employed. COMPARISON: None FINDINGS: The lung bases are clear. The heart size is normal. There are innumerable cysts of the live r. The spleen, pancreas, gallbladder, and adrenal glands are normal. The left kidney is enlarged and contains innumerable cysts, some of which are hemorrhagic. The right kidney is surgically absent. The re is an approximately 7.6 x 3.8 cm gas-containing fluid collection in the right abdominal wall. No p athologically enlarged abdominal or pelvic lymph nodes are identified. There is no free intraperitone al gas or evidence of bowel obstruction. Colonic diverticulosis is present without evidence of divert iculitis. There is moderate lumbar spondylosis at L1-2. A tiny fat-containing umbilical hernia is not ed. IMPRESSION: 1. Gas containing collection in the right, consistent with abscess versus postoperative seroma/hemato ma. 2. Changes of right nephrectomy. Reviewed, dictated and finalized at location A. IMPRESSION: 1. Gas containing collection in the right, consistent with abscess versus posto perative seroma/hematoma. 2. Changes of right nephrectomy.
[2020-07-03 09:59] VITALS: BP 125/78; PULSE 69; RESP 20; TEMP 36.6; O2SAT 98
[2020-07-03 10:16] LABS: Basophils Absolute Auto 0.06 K/mm3 (0.00-0.10); Basophils Percent Auto 0.6 % (0.0-1.0); Eosinophils Absolute Auto 0.25 K/mm3 (0.02-0.50); Eosinophils Percent Auto 2.6 % (1.0-6.0); Hematocrit 33.9 % (40.0-54.0); Hemoglobin 10.8 g/dL (14.0-18.0); Immature Granulocyte Absolute 0.07 K/mm3 (0.00-0.00); Immature Granulocyte Percent A 0.7 % (0.0-0.0); Lymphocytes Absolute Auto 1.26 K/mm3 (1.10-4.50); Lymphocytes Percent Auto 12.9 % (18.0-42.0); Mean Corpuscular HGB Conc 31.9 g/dL (32.0-36.0); Mean Corpuscular Hemoglobin 31.3 pg (27.0-31.0); Mean Corpuscular Volume 98.3 fL (78.0-102.0); Mean Platelet Volume 9.1 fl (8.7-11.0); Monocytes Absolute Auto 0.92 K/mm3 (0.10-0.90); Monocytes Percent Auto 9.5 % (2.0-11.0); Neutrophils Absolute Auto 7.2 K/mm3 (1.7-7.2); Neutrophils Percent Auto 73.7 % (50.0-70.0); Platelet Count Result 483 K/mm3 (150-420); Red Blood Count 3.45 M/mm3 (4.70-6.10); Red Cell Distribution Width 12.5 % (11.6-14.4); White Blood Count 9.7 K/mm3 (4.8-10.8)
[2020-07-03] MEDS: ONDANSETRON INJ 4 MG/2 ML VIAL IV PUSH (10:20)
[2020-07-03] MEDS: MORPHINE SULFATE 4 MG/ML INJ 2 MG IV PUSH (10:23)
[2020-07-03] MEDS: SODIUM CHLORIDE 0.9% IV 1,000 ML 999 ML IV CONT (10:24)
[2020-07-03 10:27] LABS: Add Urine Microscopic? YES; Appearance Urine Clear (Clear); Bilirubin Urine Negative (Negative); Blood Urine Negative (Negative); Color Urine Yellow (Yellow); Glucose Urine UA Negative (Negative); Ketones Urine Negative (Negative); Leukocyte Esterase Ur Negative LEU/UL (Negative); Nitrate Urine Negative (Negative); Protein Urine Trace (Negative); Specific Grav Ur 1.015 (1.010-1.020); Urobilinogen Urine 0.2 mg/dL (0.2-1.0); pH Urine 5.5 (5.0-8.0)
[2020-07-03 10:32] LABS: Alanine Aminotransferase 22 U/L (16-63); Albumin Level 3.4 g/dL (3.4-5.0); Alkaline Phosphatase 95 U/L (46-116); Anion Gap 11 mmol/L (8-16); Aspartate Amino Transferase 11 U/L (15-37); Bilirubin,Total 0.3 mg/dL (0.00-1.00); Blood Urea Nitrogen 49 mg/dL (7-18); Calcium 8.6 mg/dL (8.5-10.1); Carbon Dioxide 23 mmol/L (21-32); Chloride 106 mmol/L (98-108); Estimated CRCL calculation 16 ml/min; Estimated Glomerular Filt Rate 10; Glucose 178 mg/dL (70-99); Lipase 233 U/L (73-393); Osmolality Calculated 307 mOsm/kg (285-295); Partial Thromboplastin Time 28.9 SEC (22.3-31.6); Potassium 4.7 mmol/L (3.5-5.1); Prothrombin Time 10.7 Seconds (9.64-11.0); Sodium 140 mmol/L (136-145)
[2020-07-03 10:35] LABS: Lactic Acid Reflex 0.8 mmol/L (0.4-2.0)
[2020-07-03 10:55] LABS: Bacteria Urine None seen /hpf; RBC Urine None seen /hpf (0-2); Squamous Epithelial Cell Urine None seen /hpf (Few); WBC Urine None seen /hpf (0-3)
[2020-07-03 10:56] LABS: Mucus Urine None seen /lpf
--- NOTE | 2020-07-03 11:15 | ED.ABDPAIN ---
HPI - Abdominal Pain General Chief Complaint: Abdominal Pain Stated Complaint: 60 YO male w/ h/o right nephrectomy (sec to polycystic renal disease) on 06/14/[address] [facility] comes into ED for evaluation of R lower abd swelling w/ erythema and induration at site of robotic nephrectomy. Patient states the incision was fine and healing until last 24 hours when he noticed the redness. Related Data Home Medications Medication Instructions Recorded Confirmed amlodipine [Norvasc] See Rx Instructions .ROUTE .COMPLEX 12/21/19 07/03/20 aspirin [Aspirin Low Dose] See Rx Instructions .ROUTE .COMPLEX 12/21/19 07/03/20 omeprazole See Rx Instructions .ROUTE .COMPLEX 12/21/19 07/03/20 lactulose 10 g PO DAILY 05/17/20 07/03/20 Allergies Allergy/AdvReac Type Severity Reaction Status Date / Time No Known Allergies Allergy Verified 05/27/20 06:16 Review of Systems Review of Systems: All systems reviewed & are unremarkable except as noted in HPI and below Constitutional: Constitutional: Reports as per HPI, Denies chills, Denies fatigue, Denies fever(s) and Denies weakness ENT: Reports system reviewed and no additional complaints, except as documented Cardiovascular: Cardiovascular: Reports no additional cardiovascular complaints Respiratory: Respiratory: Reports no additional respiratory complaints Gastrointestinal: Gastrointestinal: Reports no additional gastrointestinal complaints, Reports abdominal pain, Denies bloating, Denies constipation, Denies diarrhea and Denies vomiting Genitourinary: Genitourinary: Reports no additional male genitourinary complaints Musculoskeletal: Musculoskeletal: Reports no additional musculoskeletal complaints Integumentary/Breasts: Comments: Laproscopic skin incisions 3 of shich appear to be healing, the largest of lesion on RLQ is erythematous and indurated, FLUCTUANT. Neurologic: Reports system reviewed and no additional complaints, except as documented Psychiatric: Psychiatric: Reports no additional psychiatric complaints Endocrine: Endocrine: Reports no additional endocrine complaints Hematologic/Lymphatic: Hematologic/Lymphatic: Reports no additional hematologic/lymphatic complaints Allergic/Immunologic: Allergic/Immunologic: Reports no additional allergic/immunologic complaints [facility] Past Medical History Medical History Anemia Ankle fracture, left Asthma CKD (chronic kidney disease) stage 4, GFR 15-29 ml/min Colon cancer screening COPD (chronic obstructive pulmonary disease) Emphysema of lung GERD (gastroesophageal reflux disease) HTN (hypertension) Myocardial infarction NSTEMI Pneumonia Polycystic kidney disease Surgical History Surgical History History of bladder surgery S/P cardiac catheterization Family History Family History Mother PCK (polycystic kidney disease) Social History Social History Smoking packs per day: 1.5 Smoking cigarettes per day: 30.0 Years smoked: 40 Smoking pack-years: 60.00 Smoking status: Former smoker Tobacco type: cigarettes Smoking end date: 09/27/18 Alcohol intake: never Substance use: never Substance use type: does not use Gender identity (if verbalized by the patient): Male Spiritual care concerns: No Exam Const: General: healthy appearing, no acute distress and alert Orientation/consciousness: patient oriented x3 HENMT: Head: normal to inspection Eyes: Conjunctivae: conjunctivae normal Pupils: Equal, round and reactive pupils present EOM: EOMs intact bilaterally Neck: Neck: normal visual inspection and no lymphadenopathy Chest: Chest palpation & inspection: normal inspection of the chest Resp: Effort & Inspection: normal respiratory effort Auscultation: clear to auscultation bilaterally
[2020-07-03] MEDS: levoFLOXacin 500 MG/D5W 100 ML 500 MG/100 ML BAG 100 MG IVPB (11:17)
--- NOTE | 2020-07-03 12:00 | PC.NURSE ---
MATT AT BEDSIDE FOR ASSISTANCE WITH NEEDLE ASPIRATION OF ABSCESS RLQ INCISION
[2020-07-03 13:18] VITALS: BP 125/78; PULSE 71; RESP 14; O2SAT 98
== END 2020-07-03 13:47 | disposition short-term general hospital (02) ==
PROVIDERS: Emergency Provider Family Medicine; PCP Internal Medicine
DX: T81.49XA Infection following a procedure, other surgical site, initial encounter (principal); I12.9 Hypertensive chronic kidney disease with stage 1 through stage 4 chronic kidney disease, or unspecified chronic kidney disease; N18.9 Chronic kidney disease, unspecified; J44.9 Chronic obstructive pulmonary disease, unspecified; K21.9 Gastro-esophageal reflux disease without esophagitis; Z87.891 Personal history of nicotine dependence
CPT/HCPCS: 10060; 36415; 74176; 80053; 81001; 83605; 83690; 85025; 85610; 85730; 87040; 87070; 87077; 87186; 87205; 96361; 96365; 96375; 99283; 99285; J1956; J2270; J2405; J7030

== ENCOUNTER 2020-07-15 09:59 | Outpatient (CLI) | payer OTHER, SELFPAY ==
[2020-07-15 10:50] LABS: Albumin Level 4.1 g/dL (3.4-5.0); Anion Gap 8 mmol/L (8-16); Blood Urea Nitrogen 73 mg/dL (7-18); Calcium 8.7 mg/dL (8.5-10.1); Carbon Dioxide 24 mmol/L (21-32); Chloride 108 mmol/L (98-108); Estimated Glomerular Filt Rate 11; Glucose 97 mg/dL (70-99); Osmolality Calculated 311 mOsm/kg (285-295); Phosphorus 4.7 mg/dL (2.6-4.7); Potassium 5.8 mmol/L (3.5-5.1); Sodium 140 mmol/L (136-145)
== END 2020-07-15 10:00 | disposition home or self-care (01) ==
LOC: CHSLAB 10:00
PROVIDERS: PCP Internal Medicine; Visit Provider Internal Medicine Nephrology
DX: N18.5 Chronic kidney disease, stage 5 (principal)
CPT/HCPCS: 36415; 80069

== ENCOUNTER 2020-07-22 08:44 | Outpatient (CLI) | payer OTHER, SELFPAY ==
[2020-07-22 09:23] LABS: Albumin Level 4.1 g/dL (3.4-5.0); Anion Gap 11 mmol/L (8-16); Blood Urea Nitrogen 66 mg/dL (7-18); Calcium 8.6 mg/dL (8.5-10.1); Carbon Dioxide 24 mmol/L (21-32); Chloride 107 mmol/L (98-108); Estimated Glomerular Filt Rate 11; Glucose 121 mg/dL (70-99); Osmolality Calculated 314 mOsm/kg (285-295); Phosphorus 4.1 mg/dL (2.6-4.7); Potassium 5.5 mmol/L (3.5-5.1); Sodium 142 mmol/L (136-145)
== END 2020-07-22 08:45 | disposition home or self-care (01) ==
LOC: CHSLAB 08:46
PROVIDERS: PCP Internal Medicine; Visit Provider Internal Medicine Nephrology
DX: N18.5 Chronic kidney disease, stage 5 (principal)
CPT/HCPCS: 36415; 80069

== ENCOUNTER 2020-07-29 08:41 | Outpatient (CLI) | payer OTHER, SELFPAY ==
[2020-07-29 09:39] LABS: Anion Gap 11 mmol/L (8-16); Blood Urea Nitrogen 65 mg/dL (7-18); Calcium 8.9 mg/dL (8.5-10.1); Carbon Dioxide 23 mmol/L (21-32); Chloride 107 mmol/L (98-108); Estimated Glomerular Filt Rate 11; Glucose 120 mg/dL (70-99); Osmolality Calculated 311 mOsm/kg (285-295); Phosphorus 4.3 mg/dL (2.6-4.7); Potassium 5.8 mmol/L (3.5-5.1); Sodium 141 mmol/L (136-145)
== END 2020-07-29 08:42 | disposition home or self-care (01) ==
LOC: CHSLAB 08:42
PROVIDERS: PCP Internal Medicine; Visit Provider Internal Medicine Nephrology
DX: N18.5 Chronic kidney disease, stage 5 (principal)
CPT/HCPCS: 36415; 80069

== ENCOUNTER 2020-08-08 09:03 | Outpatient (CLI) | payer OTHER, SELFPAY ==
[2020-08-08 10:11] LABS: Anion Gap 9 mmol/L (8-16); Blood Urea Nitrogen 64 mg/dL (7-18); Calcium 8.8 mg/dL (8.5-10.1); Carbon Dioxide 25 mmol/L (21-32); Chloride 108 mmol/L (98-108); Estimated Glomerular Filt Rate 12; Glucose 107 mg/dL (70-99); Osmolality Calculated 312 mOsm/kg (285-295); Phosphorus 3.8 mg/dL (2.6-4.7); Potassium 4.9 mmol/L (3.5-5.1); Sodium 142 mmol/L (136-145)
== END 2020-08-08 09:04 | disposition home or self-care (01) ==
LOC: CHSLAB 09:05
PROVIDERS: PCP Internal Medicine; Visit Provider Internal Medicine Nephrology
DX: N18.5 Chronic kidney disease, stage 5 (principal)
CPT/HCPCS: 36415; 80069

== ENCOUNTER 2020-08-10 09:06 | Outpatient (CLI) | payer OTHER, SELFPAY | END 2020-08-10 09:07 | disposition home or self-care (01) | PROVIDERS: PCP Internal Medicine; Visit Provider Transplant Surgery | DX: N18.6 End stage renal disease (principal) | CPT/HCPCS: 36415 ==

== ENCOUNTER 2020-08-15 09:08 | Outpatient (CLI) | payer OTHER, SELFPAY ==
[2020-08-15 10:19] LABS: Albumin Level 4.1 g/dL (3.4-5.0); Anion Gap 12 mmol/L (8-16); Blood Urea Nitrogen 66 mg/dL (7-18); Calcium 8.7 mg/dL (8.5-10.1); Carbon Dioxide 24 mmol/L (21-32); Chloride 109 mmol/L (98-108); Estimated Glomerular Filt Rate 12; Glucose 119 mg/dL (70-99); Osmolality Calculated 320 mOsm/kg (285-295); Phosphorus 4.5 mg/dL (2.6-4.7); Potassium 5.2 mmol/L (3.5-5.1); Sodium 145 mmol/L (136-145)
== END 2020-08-15 09:09 | disposition home or self-care (01) ==
LOC: CHSLAB 09:11
PROVIDERS: PCP Internal Medicine; Visit Provider Internal Medicine Nephrology
DX: N18.5 Chronic kidney disease, stage 5 (principal)
CPT/HCPCS: 36415; 80069

== ENCOUNTER 2020-08-22 09:17 | Outpatient (CLI) | payer OTHER, SELFPAY ==
[2020-08-22 10:12] LABS: Albumin Level 4.1 g/dL (3.4-5.0); Anion Gap 12 mmol/L (8-16); Blood Urea Nitrogen 74 mg/dL (7-18); Calcium 8.7 mg/dL (8.5-10.1); Carbon Dioxide 23 mmol/L (21-32); Chloride 108 mmol/L (98-108); Estimated Glomerular Filt Rate 12; Glucose 89 mg/dL (70-99); Osmolality Calculated 316 mOsm/kg (285-295); Phosphorus 4.7 mg/dL (2.6-4.7); Potassium 5.4 mmol/L (3.5-5.1); Sodium 143 mmol/L (136-145)
== END 2020-08-22 09:18 | disposition home or self-care (01) ==
LOC: CHSLAB 09:19
PROVIDERS: PCP Internal Medicine; Visit Provider Internal Medicine Nephrology
DX: N18.5 Chronic kidney disease, stage 5 (principal)
CPT/HCPCS: 36415; 80069

== ENCOUNTER 2020-08-29 08:08 | Outpatient (CLI) | payer OTHER, SELFPAY ==
[2020-08-29 08:57] LABS: Anion Gap 11 mmol/L (8-16); Blood Urea Nitrogen 70 mg/dL (7-18); Calcium 8.1 mg/dL (8.5-10.1); Carbon Dioxide 24 mmol/L (21-32); Chloride 109 mmol/L (98-108); Estimated Glomerular Filt Rate 11; Glucose 118 mg/dL (70-99); Osmolality Calculated 319 mOsm/kg (285-295); Potassium 5.3 mmol/L (3.5-5.1); Sodium 144 mmol/L (136-145)
== END 2020-08-29 08:09 | disposition home or self-care (01) ==
LOC: CHSLAB 08:10
PROVIDERS: PCP Internal Medicine; Visit Provider Internal Medicine Nephrology
DX: N18.5 Chronic kidney disease, stage 5 (principal)
CPT/HCPCS: 36415; 80069

== ENCOUNTER 2020-09-05 08:27 | Outpatient (CLI) | payer OTHER, SELFPAY ==
[2020-09-05 09:10] LABS: Anion Gap 12 mmol/L (8-16); Blood Urea Nitrogen 69 mg/dL (7-18); Calcium 8.2 mg/dL (8.5-10.1); Carbon Dioxide 25 mmol/L (21-32); Chloride 106 mmol/L (98-108); Estimated Glomerular Filt Rate 11; Glucose 101 mg/dL (70-99); Osmolality Calculated 316 mOsm/kg (285-295); Phosphorus 4.8 mg/dL (2.6-4.7); Potassium 5.6 mmol/L (3.5-5.1); Sodium 143 mmol/L (136-145)
== END 2020-09-05 08:28 | disposition home or self-care (01) ==
LOC: CHSLAB 08:28
PROVIDERS: PCP Internal Medicine; Visit Provider Internal Medicine Nephrology
DX: N18.5 Chronic kidney disease, stage 5 (principal)
CPT/HCPCS: 36415; 80069

== ENCOUNTER 2020-10-31 08:08 | Outpatient (RCR) | payer OTHER, SELFPAY ==
[2020-09-12 10:07] LABS: Albumin Level 4.2 g/dL (3.4-5.0); Anion Gap 11 mmol/L (8-16); Blood Urea Nitrogen 81 mg/dL (7-18); Calcium 8.2 mg/dL (8.5-10.1); Carbon Dioxide 23 mmol/L (21-32); Chloride 107 mmol/L (98-108); Estimated Glomerular Filt Rate 9; Glucose 114 mg/dL (70-99); Osmolality Calculated 317 mOsm/kg (285-295); Phosphorus 4.5 mg/dL (2.6-4.7); Potassium 5.5 mmol/L (3.5-5.1); Sodium 141 mmol/L (136-145)
[2020-09-19 11:13] LABS: Albumin Level 4.3 g/dL (3.4-5.0); Anion Gap 13 mmol/L (8-16); Blood Urea Nitrogen 81 mg/dL (7-18); Calcium 8.4 mg/dL (8.5-10.1); Carbon Dioxide 24 mmol/L (21-32); Chloride 105 mmol/L (98-108); Estimated Glomerular Filt Rate 10; Glucose 139 mg/dL (70-99); Osmolality Calculated 320 mOsm/kg (285-295); Phosphorus 5.4 mg/dL (2.6-4.7); Potassium 5.4 mmol/L (3.5-5.1); Sodium 142 mmol/L (136-145)
[2020-09-26 10:32] LABS: Albumin Level 4.5 g/dL (3.4-5.0); Anion Gap 13 mmol/L (8-16); Blood Urea Nitrogen 90 mg/dL (7-18); Calcium 8.3 mg/dL (8.5-10.1); Carbon Dioxide 23 mmol/L (21-32); Chloride 106 mmol/L (98-108); Estimated Glomerular Filt Rate 10; Glucose 92 mg/dL (70-99); Osmolality Calculated 321 mOsm/kg (285-295); Phosphorus 5.6 mg/dL (2.6-4.7); Potassium 5.4 mmol/L (3.5-5.1); Sodium 142 mmol/L (136-145)
[2020-10-03 09:25] LABS: Albumin Level 4.1 g/dL (3.4-5.0); Anion Gap 11 mmol/L (8-16); Blood Urea Nitrogen 78 mg/dL (7-18); Calcium 8.1 mg/dL (8.5-10.1); Carbon Dioxide 25 mmol/L (21-32); Chloride 107 mmol/L (98-108); Estimated Glomerular Filt Rate 10; Glucose 98 mg/dL (70-99); Osmolality Calculated 319 mOsm/kg (285-295); Phosphorus 4.6 mg/dL (2.6-4.7); Potassium 5.2 mmol/L (3.5-5.1); Sodium 143 mmol/L (136-145)
[2020-10-10 10:01] LABS: Albumin Level 4.4 g/dL (3.4-5.0); Anion Gap 12 mmol/L (8-16); Blood Urea Nitrogen 85 mg/dL (7-18); Calcium 8.7 mg/dL (8.5-10.1); Carbon Dioxide 24 mmol/L (21-32); Chloride 106 mmol/L (98-108); Estimated Glomerular Filt Rate 10; Glucose 83 mg/dL (70-99); Osmolality Calculated 318 mOsm/kg (285-295); Phosphorus 4.7 mg/dL (2.6-4.7); Potassium 5.6 mmol/L (3.5-5.1); Sodium 142 mmol/L (136-145)
[2020-10-17 11:45] LABS: Albumin Level 4.2 g/dL (3.4-5.0); Anion Gap 13 mmol/L (8-16); Blood Urea Nitrogen 86 mg/dL (7-18); Calcium 7.8 mg/dL (8.5-10.1); Carbon Dioxide 24 mmol/L (21-32); Chloride 103 mmol/L (98-108); Estimated Glomerular Filt Rate 10; Glucose 118 mg/dL (70-99); Osmolality Calculated 317 mOsm/kg (285-295); Phosphorus 4.6 mg/dL (2.6-4.7); Potassium 4.8 mmol/L (3.5-5.1); Sodium 140 mmol/L (136-145)
[2020-10-24 10:27] LABS: Albumin Level 4.2 g/dL (3.4-5.0); Anion Gap 11 mmol/L (8-16); Blood Urea Nitrogen 90 mg/dL (7-18); Calcium 8.3 mg/dL (8.5-10.1); Carbon Dioxide 23 mmol/L (21-32); Chloride 103 mmol/L (98-108); Estimated Glomerular Filt Rate 9; Glucose 128 mg/dL (70-99); Osmolality Calculated 313 mOsm/kg (285-295); Phosphorus 4.4 mg/dL (2.6-4.7); Sodium 137 mmol/L (136-145)
[2020-10-31 08:56] LABS: Albumin Level 4.3 g/dL (3.4-5.0); Anion Gap 12 mmol/L (8-16); Blood Urea Nitrogen 91 mg/dL (7-18); Calcium 8.4 mg/dL (8.5-10.1); Carbon Dioxide 24 mmol/L (21-32); Chloride 105 mmol/L (98-108); Estimated Glomerular Filt Rate 10; Glucose 123 mg/dL (70-99); Osmolality Calculated 321 mOsm/kg (285-295); Phosphorus 4.7 mg/dL (2.6-4.7); Potassium 5.1 mmol/L (3.5-5.1); Sodium 141 mmol/L (136-145)
== END 2020-12-11 23:59 | disposition home or self-care (01) ==
LOC: CHSLAB 08:08
PROVIDERS: PCP Internal Medicine; Visit Provider Internal Medicine Nephrology
DX: N18.5 Chronic kidney disease, stage 5 (principal); E87.5 Hyperkalemia
CPT/HCPCS: 36415; 80069

== ENCOUNTER 2020-11-02 09:17 | Outpatient (CLI) | payer OTHER, SELFPAY ==
--- NOTE | ~2020-11-02 | XR_ITS ---
XR chest 2V 11/02/2020 09:44 Indication: Chronic kidney disease. Shortness of breath. Procedure: 2 view chest Comparison: Comparison to multiple prior studies sequentially, with oldest reviewed study dated 11/2017. Findings: Heart size normal. No focal air space disease, pulmonary edema, pleural effusion or suspect ed pneumothorax. Impression: 1: No acute cardiopulmonary disease. Reviewed, dictated and finalized at location A. 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
[2020-11-06 06:45] LABS: Hepatitis A Antibody IgM Nonreactive; Hepatitis B Core Antibody Nonreactive (Nonreactive); Hepatitis B Surface Antibody Nonreactive (Nonreactive); Hepatitis B Surface Antigen Nonreactive (Nonreactive); Hepatitis C Signal to Cutoff 0.73 ratio (<1.00); Hepatitis C Virus Antibody Nonreactive (Nonreactive)
== END 2020-11-02 09:18 | disposition home or self-care (01) ==
PROVIDERS: PCP Internal Medicine; Visit Provider Internal Medicine Nephrology
DX: N18.5 Chronic kidney disease, stage 5 (principal); R53.81 Other malaise; R10.11 Right upper quadrant pain
CPT/HCPCS: 36415; 71046; 80074; 86706

== ENCOUNTER 2020-11-07 07:53 | Outpatient (CLI) | payer OTHER, SELFPAY ==
[2020-11-07 09:11] LABS: Albumin Level 4.4 g/dL (3.4-5.0); Anion Gap 10 mmol/L (8-16); Blood Urea Nitrogen 83 mg/dL (7-18); Calcium 8.4 mg/dL (8.5-10.1); Carbon Dioxide 25 mmol/L (21-32); Chloride 106 mmol/L (98-108); Estimated Glomerular Filt Rate 9; Glucose 132 mg/dL (70-99); Osmolality Calculated 319 mOsm/kg (285-295); Phosphorus 5.4 mg/dL (2.6-4.7); Potassium 5.1 mmol/L (3.5-5.1); Sodium 141 mmol/L (136-145)
[2020-11-07 22:22] LABS: SARS-CoV-2 RNA PCR Negative
== END 2020-11-07 07:54 | disposition home or self-care (01) ==
LOC: CHSLAB 07:54
PROVIDERS: PCP Internal Medicine; Visit Provider Internal Medicine Nephrology
DX: N18.6 End stage renal disease (principal); R06.00 Dyspnea, unspecified; R05 Cough; Z20.822 Contact with and (suspected) exposure to COVID-19; E87.5 Hyperkalemia
CPT/HCPCS: 36415; 80069; C9803; U0003

== ENCOUNTER 2021-06-28 15:27 | Outpatient (CLI) | payer OTHER, SELFPAY ==
[2021-06-28 16:35] LABS: SARS-CoV-2 RNA PCR Negative (Negative)
== END 2021-06-28 15:28 | disposition home or self-care (01) ==
LOC: CHSLAB 15:30
PROVIDERS: PCP Internal Medicine; Visit Provider Internal Medicine
DX: Z20.822 Contact with and (suspected) exposure to COVID-19 (principal)
CPT/HCPCS: C9803; U0003; U0005

== ENCOUNTER 2022-10-23 22:16 | Emergency (ER) | payer OTHER, SELFPAY ==
--- NOTE | ~2022-10-23 | CT_ITS ---
CT Abdomen and Pelvis with contrast. History: Abdominal pain. Spiral CT of the abdomen and pelvis was performed after the administration of intravenous contrast. 1 00 cc of Omnipaque 350 was administered intravenously without complication. Dose reduction technique was used on this scan by utilizing automated exposure control and iterative reconstruction technique. The dose-length product (DLP) was 574.65 mGy-cm. COMPARISON: 07/03/2020 Findings: Scans through the lung bases demonstrate mild atelectatic change. Innumerable hepatic cysts are stable from prior exam. Left kidney is enlarged and nearly completely r eplaced by innumerable cysts. Right kidney absent, presumably due to prior resection. The spleen, alicea creas, gallbladder, and adrenal glands are within normal limits. No evidence of aortic aneurysm. No lymphadenopathy is seen. There is no evidence of bowel obstruction. There is sigmoid diverticulosis. There is no evidence to s uggest acute appendicitis or diverticulitis. Images through the pelvis were performed. Urinary bladder unremarkable. Prostate gland and seminal ve sicles are unremarkable. No ascites is seen. Impression: No acute abnormality identified. 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 Probable prior right nep hrectomy. Reviewed, dictated and finalized at location . AGENT Impression: No acute abnormality identified. 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 Pr obable prior right nephrectomy.
[2022-10-23 22:25] VITALS: BP 134/70; PULSE 72; RESP 20; TEMP 37; O2SAT 98
--- NOTE | 2022-10-23 22:29 | ED.NAVMDI ---
HPI - Nausea/Vomiting/Diarrhea General Chief complaint: Nausea/Vomiting/Diarrhea Stated complaint: vomiting Time Seen by Provider: 10/23/22 22:29 Source: patient and RN notes reviewed Mode of arrival: ambulatory Limitations: no limitations History of Present Illness HPI Narrative: patient had sudden onset of nausea vomiting that woke him from sleep. He said he felt his stomach turning. He says that his epigastric area is sore from vomiting otherwise he does not have any other abdominal pain. He denies any fever chills. He denies any cough headache, chest pain. also states that friend of theirs had a heart attack and the only thing he had was a sudden onset of vomiting. Patient has a history coronary artery disease. MD elicited complaint: nausea and vomiting Onset (ago): hour(s) (2) Description of vomiting: bilious Description of diarrhea: watery Associated nausea: Yes Associated abdominal pain: No Location of pain: none Exacerbating factors: none Relieving factors: none Associated symptoms: denies other symptoms Related Data Home Medications Medication Instructions Recorded Confirmed amlodipine 5 mg tablet (Norvasc) See Rx Instructions .Route .COMPLEX 12/21/19 10/23/22 aspirin 81 mg tablet,delayed See Rx Instructions .Route .COMPLEX 12/21/19 10/23/22 release (Sheng Low Dose Aspirin) bumetanide 1 mg tablet 1 mg PO DAILY 10/23/22 10/23/22 cholecalciferol (vitamin D3) 25 25 mcg PO DAILY 10/23/22 10/23/22 mcg (1,000 unit) tablet (Vitamin D3) famotidine 20 mg tablet 40 mg PO DAILY 10/23/22 10/23/22 Allergies Allergy/AdvReac Type Severity Reaction Status Date / Time No Known Allergies Allergy Verified 05/27/20 06:16 Review of Systems Review of Systems: All systems reviewed & are unremarkable except as noted in HPI and below [facility] Past Medical History Medical History (Updated 10/24/22 @ 00:59 by Stan Abreu MD) Anemia Ankle fracture, left Asthma CKD (chronic kidney disease) stage 4, GFR 15-29 ml/min Colon cancer screening COPD (chronic obstructive pulmonary disease) Emphysema of lung GERD (gastroesophageal reflux disease) HTN (hypertension) Myocardial infarction NSTEMI Pneumonia Polycystic kidney disease Surgical History Surgical History (Updated 10/23/22 @ 22:30 by Stan Abreu MD) History of bladder surgery History of nephrectomy Right S/P cardiac catheterization Family History Family History Mother PCK (polycystic kidney disease) Social History Social History Smoking packs per day: 1.5 Smoking cigarettes per day: 30.0 Years smoked: 40 Smoking pack-years: 60.00 Smoking status: Former smoker Tobacco type: cigarettes Smoking end date: 09/27/18 Alcohol intake: never Substance use: never Substance use type: does not use Gender identity (if verbalized by the patient): Male Sexual Orientation (if Verbalized by the Patient): Straight or Heterosexual Spiritual care concerns: No Exam Const: General: healthy appearing, no acute distress and alert Nutritional Appearance: well nourished Orientation/consciousness: patient oriented x3 Limitations: no limitations HENMT: Head: normal to inspection Ears: external ears normal Face/Nose/Sinus: Normal external nose present Face and sinus: normal facial exam Mouth: Yes moist mucous membranes Eyes: Conjunctivae: conjunctivae normal Cornea: corneas normal Pupils: Equal, round and reactive pupils present EOM: EOMs intact bilaterally Neck: Neck: normal visual inspection Chest: Chest palpation & inspection: normal inspection of the chest Resp: Effort & Inspection: normal respiratory effort Auscultation: clear to auscultation bilaterally Cardio: Rate: regular rate Rhythm: regular rhythm GI: GI Palp: Yes Soft to palpation, No Tenderness to palpation present (GI) and No Guarding due to palpat
[2022-10-23] MEDS: ONDANSETRON INJ 4 MG/2 ML VIAL IV PUSH (22:47)
--- NOTE | 2022-10-23 22:47 | ECG_ITS ---
Measurements Intervals [place] Rate: 72 P: 66 OR: 146 QRS: 61 QRSD: 102 T: 69 QT: 396 QTc: 434 Interpretive Statements SINUS RHYTHM BASELINE ARTIFACT RSR' V1 AND V2 BORDERLINE ECG COMPARED TO ECG 05/15/2020 10:51:11 HEART RATE HAS INCREASED Electronically Signed On 10-24-2022 17:07:45 [employer] WORK[employer] by James Olivera M.D.
[2022-10-23 23:04] LABS: Basophils Absolute Auto 0.05 K/mm3 (0.00-0.10); Basophils Percent Auto 0.4 % (0.0-1.0); Eosinophils Absolute Auto 0.05 K/mm3 (0.02-0.50); Eosinophils Percent Auto 0.4 % (1.0-6.0); Hematocrit 38.2 % (40.0-54.0); Immature Granulocyte Absolute 0.06 K/mm3 (0.00-0.00); Immature Granulocyte Percent A 0.5 % (0.0-0.0); Lymphocytes Percent Auto 5.7 % (18.0-42.0); Mean Corpuscular HGB Conc 31.4 g/dL (32.0-36.0); Mean Corpuscular Volume 104.9 fL (78.0-102.0); Mean Platelet Volume 9.7 fl (8.7-11.0); Monocytes Absolute Auto 1.03 K/mm3 (0.10-0.90); Monocytes Percent Auto 8.4 % (2.0-11.0); Neutrophils Absolute Auto 10.4 K/mm3 (1.7-7.2); Neutrophils Percent Auto 84.6 % (50.0-70.0); Platelet Count Result 273 K/mm3 (150-420); Red Blood Count 3.64 M/mm3 (4.70-6.10); Red Cell Distribution Width 13.3 % (11.6-14.4); White Blood Count 12.2 K/mm3 (4.8-10.8)
[2022-10-23 23:13] LABS: Add Urine Microscopic? YES; Appearance Urine Clear (Clear); Bilirubin Urine Negative (Negative); Blood Urine Negative (Negative); Color Urine Light Yellow (Yellow); Glucose Urine UA Trace (Negative); Ketones Urine Negative (Negative); Leukocyte Esterase Ur Negative LEU/UL (Negative); Nitrate Urine Negative (Negative); Protein Urine 1+ (Negative); Urobilinogen Urine 0.2 mg/dL (0.2-1.0); pH Urine 7.5 (5.0-8.0)
[2022-10-23 23:19] LABS: Bacteria Urine Trace /hpf; RBC Urine 0-2 /hpf (0-2); WBC Urine 0-3 /hpf (0-3)
[2022-10-23 23:25] LABS: Lactic Acid Reflex 0.7 mmol/L (0.4-2.0)
[2022-10-23 23:30] VITALS: BP 114/67; PULSE 78; RESP 18; O2SAT 98
[2022-10-23 23:31] LABS: Alanine Aminotransferase 12 U/L (16-63); Albumin Level 3.9 g/dL (3.4-5.0); Alkaline Phosphatase 69 U/L (46-116); Anion Gap 13 mmol/L (8-16); Aspartate Amino Transferase 17 U/L (15-37); Bilirubin,Total 0.6 mg/dL (0.00-1.00); Blood Urea Nitrogen 50 mg/dL (7-18); Calcium 7.3 mg/dL (8.5-10.1); Carbon Dioxide 25 mmol/L (21-32); Chloride 103 mmol/L (98-108); Estimated CRCL calculation 12 ml/min; Estimated Glomerular Filt Rate 8; Glucose 121 mg/dL (70-99); Osmolality Calculated 306 mOsm/kg (285-295); Sodium 141 mmol/L (136-145); Total Protein 7.2 g/dL (6.4-8.2)
[2022-10-23 23:34] LABS: CRP < 0.5 mg/dL (0.0-0.9); Lipase 117 U/L (16-77); Magnesium 1.6 mg/dL (1.8-2.4)
[2022-10-23 23:40] LABS: Troponin I 6.7 ng/L (0.00-60.4)
--- NOTE | 2022-10-24 | PC.NURSE ---
Pt ambulated to BR per self, reports having some diarrhea but feeling some better and has no n/v since given Zofran. Awaiting CT results and labs.
[2022-10-24] MEDS: SODIUM CHLORIDE 0.9% IV 500 ML 999 ML IV CONT (00:57)
[2022-10-24] MEDS: PROMETHAZINE HCL 25 MG/ML AMPUL IM (00:57)
[2022-10-24] MEDS: metroNIDAZOLE 500 MG/ISO 100ML 500 MG/100 ML BAG 100 MG IVPB (01:05)
[2022-10-24 01:07] VITALS: BP 120/71; PULSE 74; RESP 18; TEMP 36.6; O2SAT 98
--- NOTE | 2022-10-24 02:12 | PC.NURSE ---
Pt up ambulatory to BR, states his stomach still feels crampy and is nauseated, having bouts of diarrhea. ERP in to discuss POC for home d/c and f/u in AM. Pt to have dialysis as scheduled in AM.
[2022-10-24 02:24] VITALS: BP 118/74; PULSE 81; RESP 20; TEMP 36.9; O2SAT 100
[2022-10-24] MEDS: ONDANSETRON HCL ODT 4 MG TABLET PO (02:28)
== END 2022-10-24 02:36 | disposition home or self-care (01) ==
PROVIDERS: Emergency Provider Emergency Medicine
DX: K52.9 Noninfective gastroenteritis and colitis, unspecified (principal); I12.9 Hypertensive chronic kidney disease with stage 1 through stage 4 chronic kidney disease, or unspecified chronic kidney disease; N18.4 Chronic kidney disease, stage 4 (severe); J43.9 Emphysema, unspecified; I25.2 Old myocardial infarction; Z87.891 Personal history of nicotine dependence; Z79.82 Long term (current) use of aspirin
CPT/HCPCS: 36415; 74177; 80053; 81001; 83605; 83690; 83735; 84484; 85025; 86140; 93005; 96365; 96372; 96375; 99284; A9270; J2405; J2550; J7040; Q9967

== ENCOUNTER 2023-05-13 19:50 | Emergency (ER) | payer OTHER, MEDICARE, SELFPAY ==
[2023-05-13] VITALS (9 sets, daily range): BP systolic 112–154; BP diastolic 68–85; PULSE 51–66; RESP 12–16; TEMP 36.6; O2SAT 94–100
--- NOTE | ~2023-05-13 | XR_ITS ---
EXAMINATION: XR chest 1V portable Exam Date/Time: 05/13/2023 20:20 CDT HISTORY: MIDSTERNAL Chest pain Comparison: 11/02/2020. RESULT: Lines, tubes, and devices: None. Lungs and pleura: Clear. Cardiomediastinal silhouette: Stable. Other: No acute osseous or upper abdominal finding. IMPRESSION: No acute cardiopulmonary process. Reviewed, dictated and finalized at location K.
--- NOTE | 2023-05-13 19:53 | ECG_ITS ---
Measurements Intervals [place] Rate: 64 P: 74 AR: 163 QRS: 59 QRSD: 99 T: 71 QT: 388 QTc: 402 Interpretive Statements SINUS RHYTHM INCOMPLETE RIGHT BUNDLE BRANCH BLOCK BASELINE ARTIFACT- V1-V2 BORDERLINE ECG COMPARED TO ECG 10/23/2022 22:59:05 NO SIGNIFICANT CHANGES Electronically Signed On 05-13-2023 20:17:34 CDT by Manny Urban D.O.
--- NOTE | 2023-05-13 20:25 | ED.GENADULT ---
HPI - General Adult General Chief complaint: Chest Pain Stated complaint: Chest Pain History of Present Illness HPI narrative: 63yo man h/o CAD, [place], ESRD, presents after an episode of chest pain. Started this morning while out walking on his usual 4-7 mile per day walk. He cut his walk short, returned home, and took some Tums, which helped. Then had hemodialysis today without incident. The rest of the day was uneventful until he laid down this evening and the pain returned. Midsternal ache. Similar to prior [place] over 5 years ago but pt had a stress test this past October which was normal. No fevers, chills, congestion, dyspnea, leg swelling. Related Data Home Medications Medication Instructions Recorded Confirmed amlodipine 5 mg tablet (Norvasc) See Rx Instructions .Route .COMPLEX 12/21/19 05/13/23 aspirin 81 mg tablet,delayed See Rx Instructions .Route .COMPLEX 12/21/19 05/13/23 release (Sheng Low Dose Aspirin) bumetanide 1 mg tablet 1 mg PO DAILY 10/23/22 05/13/23 cholecalciferol (vitamin D3) 25 25 mcg PO DAILY 10/23/22 05/13/23 mcg (1,000 unit) tablet (Vitamin D3) famotidine 20 mg tablet 40 mg PO DAILY 10/23/22 05/13/23 Allergies Allergy/AdvReac Type Severity Reaction Status Date / Time No Known Allergies Allergy Verified 05/13/23 19:54 Review of Systems Review of Systems: All systems reviewed & are unremarkable except as noted in HPI and below Constitutional: Constitutional: Denies chills and Denies fever(s) ENT: Denies dysphagia Cardiovascular: Cardiovascular: Reports chest pain Respiratory: Respiratory: Denies chest congestion, Denies cough and Denies dyspnea Gastrointestinal: Gastrointestinal: Denies abdominal pain [facility] Past Medical History Medical History Anemia Ankle fracture, left Asthma CKD (chronic kidney disease) stage 4, GFR 15-29 ml/min Colon cancer screening COPD (chronic obstructive pulmonary disease) Emphysema of lung GERD (gastroesophageal reflux disease) HTN (hypertension) Myocardial infarction NSTEMI Pneumonia Polycystic kidney disease Surgical History Surgical History History of bladder surgery History of nephrectomy Right S/P cardiac catheterization Family History Family History Mother PCK (polycystic kidney disease) Social History Social History Smoking packs per day: 1.5 Smoking cigarettes per day: 30.0 Years smoked: 40 Smoking pack-years: 60.00 Smoking status: Former smoker Tobacco type: cigarettes Smoking end date: 09/27/18 Alcohol intake: never Substance use: never Substance use type: does not use Living arrangements: with family Gender identity (if verbalized by the patient): Male Sexual Orientation (if Verbalized by the Patient): Straight or Heterosexual Spiritual care concerns: No Exam Const: General: healthy appearing and no acute distress Nutritional Appearance: well nourished Eyes: Conjunctivae: conjunctivae normal Neck: Neck: no meningeal signs Resp: Effort & Inspection: normal respiratory effort and not labored Auscultation: clear to auscultation bilaterally Cardio: Rate: regular rate Rhythm: regular rhythm Heart sounds: no murmurs GI: GI Palp: Yes Soft to palpation and No Tenderness to palpation present (GI) Skin: General skin exam: normal color, no jaundice and no pallor Neuro: General: patient oriented x3, moves all extremities and no focal motor deficits Gait exam (Neuro): Normal gait present Extrem: General: no clubbing, cyanosis or edema Other: LUE AVF with intact pulse and thrill Course Vital Signs Vital signs: Vital Signs Temperature 36.6 C 05/13/23 19:52 Pulse Rate 61 05/13/23 19:52 Respiratory Rate 16 05/13/23 19:52 Blood Pressure
[2023-05-13] MEDS: ASPIRIN 81 MG CHEWABLE TABLET 243 MG PO (20:27)
[2023-05-13 20:28] LABS: Basophils Absolute Auto 0.04 K/mm3 (0.00-0.10); Basophils Percent Auto 0.6 % (0.0-1.0); Eosinophils Absolute Auto 0.13 K/mm3 (0.02-0.50); Hematocrit 34.7 % (40.0-54.0); Hemoglobin 11.1 g/dL (14.0-18.0); Immature Granulocyte Absolute 0.03 K/mm3 (0.00-0.00); Immature Granulocyte Percent A 0.5 % (0.0-0.0); Lymphocytes Absolute Auto 2.18 K/mm3 (1.10-4.50); Mean Corpuscular Hemoglobin 33.2 pg (27.0-31.0); Mean Corpuscular Volume 103.9 fL (78.0-102.0); Mean Platelet Volume 9.6 fl (8.7-11.0); Monocytes Absolute Auto 0.79 K/mm3 (0.10-0.90); Neutrophils Absolute Auto 3.4 K/mm3 (1.7-7.2); Neutrophils Percent Auto 51.9 % (50.0-70.0); Platelet Count Result 250 K/mm3 (150-420); Red Blood Count 3.34 M/mm3 (4.70-6.10); Red Cell Distribution Width 12.9 % (11.6-14.4); White Blood Count 6.6 K/mm3 (4.8-10.8)
[2023-05-13] MEDS: FAMOTIDINE 20 MG/2 ML VIAL 40 MG IV PUSH (20:37)
[2023-05-13 20:49] LABS: Alanine Aminotransferase 21 U/L (16-63); Albumin Level 3.7 g/dL (3.4-5.0); Alkaline Phosphatase 86 U/L (46-116); Anion Gap 7 mmol/L (8-16); Aspartate Amino Transferase 11 U/L (15-37); Bilirubin,Total 0.4 mg/dL (0.00-1.00); Blood Urea Nitrogen 25 mg/dL (7-18); Calcium 8.6 mg/dL (8.5-10.1); Carbon Dioxide 33 mmol/L (21-32); Chloride 102 mmol/L (98-108); Estimated CRCL calculation 18 ml/min; Estimated Glomerular Filt Rate 13; Glucose 117 mg/dL (70-99); Lipase 43 U/L (16-77); Magnesium 1.8 mg/dL (1.8-2.4); Osmolality Calculated 299 mOsm/kg (285-295); Potassium 3.8 mmol/L (3.5-5.1); Sodium 142 mmol/L (136-145); Total Protein 6.7 g/dL (6.4-8.2)
[2023-05-13 20:53] LABS: Troponin I 155.4 ng/L (0.00-60.4)
--- NOTE | 2023-05-13 21:54 | PC.NURSE ---
2152: Pt c/o increasing CP. Dr. Ulloa aware. Orders received
[2023-05-13] MEDS: ONDANSETRON INJ 4 MG/2 ML VIAL IV PUSH (21:56)
[2023-05-13] MEDS: MORPHINE SULFATE (*CRX) 2 MG/ML INJ 4 MG IV PUSH (21:56)
[2023-05-13] MEDS: SODIUM CHLORIDE 0.9% IV 1,000 ML 999 ML IV CONT (21:57)
[2023-05-13 23:12] LABS: Troponin I 99.4 ng/L (0.00-60.4)
[2023-05-13] MEDS: MAG HYDROX/ALUMINUM HYD/SIMETH 30 ML, PHENobarb/HYOSCY/ATROPINE/SCOP 32.4 MG, LIDOCAINE... PO (23:21)
[2023-05-13] MEDS: PANTOPRAZOLE SODIUM IV 40 MG VIAL 80 MG IV PUSH (23:22)
--- NOTE | 2023-05-13 23:36 | PC.NURSE ---
2315 Pt c/o CP returning. Dr. Ulloa aware and will place orders
--- NOTE | 2023-05-13 23:37 | PC.NURSE ---
Pt stating that his CP has resolved after administration of GI cocktail and IV pantoprazole
== END 2023-05-13 23:59 | disposition home or self-care (01) ==
PROVIDERS: Emergency Provider Emergency Medicine; PCP Internal Medicine
DX: R07.9 Chest pain, unspecified (principal); K20.90 Esophagitis, unspecified without bleeding; I25.10 Atherosclerotic heart disease of native coronary artery without angina pectoris; I25.2 Old myocardial infarction; I12.0 Hypertensive chronic kidney disease with stage 5 chronic kidney disease or end stage renal disease; N18.6 End stage renal disease; Z79.82 Long term (current) use of aspirin; Z87.891 Personal history of nicotine dependence
CPT/HCPCS: 36415; 71045; 80053; 83690; 83735; 84484; 85025; 93005; 96361; 96374; 96375; 99284; A9270; C9113; J2270; J2405; J7030

== ENCOUNTER 2023-05-15 16:04 | Observation (INO) | payer OTHER, MEDICARE, SELFPAY ==
[2023-05-15] VITALS (14 sets, daily range): BP systolic 106–133; BP diastolic 59–75; PULSE 49–74; RESP 13–20; TEMP 36.4–36.6; O2SAT 88–100; BMI 23.1; BMI 22.8
--- NOTE | ~2023-05-15 | CT_ITS ---
EXAMINATION: CTA chest abdomen pelvis DATE: 05/15/2023 19:56 INDICATION: chest pain radiates into back/abd, eval dissection . TECHNIQUE: Computed tomography (CT) of the chest, abdomen, and pelvis was performed with 100 mL Omnip aque-350 intravenous contrast, in the arterial phase. Automated exposure control and iterative recons truction technique were employed. The dose-length product was 1048.80 mGy-cm. COMPARISON: X-ray chest, same date; CT abdomen pelvis 10/23/2022. FINDINGS: CHEST: Thoracic aorta: No significant dilation. Mild arch calcification, with a small focus of noncalcified plaque. Lung parenchyma and airways: Mild centrilobular and paraseptal emphysematous change. Apical and bibas ilar scarring. Scattered calcified granulomas. Thoracic inlet, axillae and chest wall: No thyroid or soft tissue mass. No axillary lymphadenopathy. Mediastinum: No mass or lymphadenopathy. Heart and pericardium: Normal heart size. No pericardial effusion. Coronary artery calcifications: Absent. Pleura: No effusion or mass. Thoracic bones: No acute osseous finding in the chest. ABDOMEN/PELVIS: Liver: Innumerable hepatic cysts. Biliary/Gallbladder: Gallbladder is normal. No bile duct dilation. Pancreas: No mass or duct dilation. Spleen: Normal. Adrenals:No mass. Kidneys: The right kidney is surgically absent. Innumerable right renal cysts distorting/replacing th e small amount of remaining renal parenchyma. GI tract: No small or large bowel dilation. Normal appendix. Diverticulosis without diverticulitis. Mesentery/Peritoneum: No ascites, mass, or free air. Retroperitoneum: No mass . Mild atherosclerotic abdominal aortic and/or arterial calcifications. The major aortic branches are patent. Pelvis: Pelvic organs are within normal limits Soft Tissues: Soft tissues and body wall unremarkable. Abdominopelvic bones: No acute osseous finding in the abdomen/pelvis. IMPRESSION: No acute finding in the chest, abdomen, pelvis. Specifically there is no CT evidence of aortic dissec tion or aneurysm Reviewed, dictated and finalized at location K. IMPRESSION: No acute finding in the chest, abdomen, pelvis. Specifically there is no CT venu dence of aortic dissection or aneurysm
--- NOTE | ~2023-05-15 | XR_ITS ---
EXAMINATION: XR chest 2V DATE: 05/15/2023 16:36 INDICATION: Medial anterior chest pain. TECHNIQUE: Frontal and lateral views of the chest were obtained. COMPARISON: Chest single view 05/13/2023, chest 2 views 11/02/20 FINDINGS: There is mild scarring at the lung apices. No pleural effusion or pneumothorax. The heart s ize is normal. There is mild chronic anterior wedging of vertebral bodies at thoracolumbar junction. IMPRESSION: 1. Mild scarring at the lung apices. Reviewed, dictated and finalized at location A.
--- NOTE | 2023-05-15 16:06 | ECG_ITS ---
Measurements Intervals [place] Rate: 54 P: 52 [place]: 158 QRS: 59 QRSD: 106 T: 62 QT: 422 QTc: 404 Interpretive Statements SINUS BRADYCARDIA INCOMPLETE RIGHT BUNDLE BRANCH BLOCK BORDERLINE ECG COMPARED TO ECG 05/13/2023 19:56:11 SINUS BRADYCARDIA NOW PRESENT Electronically Signed On 05-15-2023 16:35:44 CDT by Manny Urban D.O.
[2023-05-15 17:19] LABS: Basophils Absolute Auto 0.1 K/mm3 (0.0-0.1); Basophils Percent Auto 0.7 % (0.2-1.2); Eosinophils Absolute Auto 0.1 K/mm3 (0-0.3); Eosinophils Percent Auto 1.7 % (0-4.4); Hematocrit 35.6 % (42.0-52.0); Hemoglobin 11.1 g/dL (14.0-18.0); Immature Granulocyte Absolute 0.03 K/mm3 (0.00-0.031); Immature Granulocyte Percent A 0.4 % (0-0.5); Lymphocytes Absolute Auto 1.93 K/mm3 (0.9-3.2); Mean Corpuscular HGB Conc 31.2 g/dl (32-36); Mean Corpuscular Hemoglobin 33.2 pg (26-34); Mean Corpuscular Volume 106.6 fl (80-100); Mean Platelet Volume 9.7 fl (7.4-10.4); Monocytes Absolute Auto 0.9 K/mm3 (0.1-0.6); Monocytes Percent Auto 12.5 % (2.6-8.5); Neutrophils Absolute Auto 3.9 K/mm3 (1.3-6.7); Neutrophils Percent Auto 56.7 % (45.5-73.1); Platelet Count Result 242 k/mm3 (150-375); Red Blood Count 3.34 M/mm3 (4.6-6.20); Red Cell Distribution Width 13.2 % (11.5-14.5); White Blood Count 6.9 K/mm3 (4.5-10.0)
[2023-05-15 17:28] LABS: Alanine Aminotransferase 18 U/L (6-50); Albumin Level 4.1 g/dL (3.5-5.1); Alkaline Phosphatase 75 U/L (38-126); Anion Gap 6 mmol/L (8-16); Aspartate Amino Transferase 26 U/L (17-59); Bilirubin,Total 0.6 mg/dL (0.2-1.3); Blood Urea Nitrogen 20 mg/dL (9-20); Calcium 8.1 mg/dL (8.4-10.2); Carbon Dioxide 32 mmol/L (22-30); Chloride 100 mmol/L (98-107); Estimated CRCL calculation 22 ml/min; Estimated Glomerular Filt Rate 17; Glucose 81 mg/dL (65-110); Lipase 710 U/L (23-300); Potassium 4.2 mmol/L (3.4-5.0); Sodium 138 mmol/L (137-145)
[2023-05-15 17:42] LABS: Troponin I 0.831 ng/mL (0.000-0.034)
[2023-05-15 17:52] LABS: Partial Thromboplastin Time 32.2 SECONDS (22.3-36.8); Prothrombin Time 13.4 Seconds (11.1-14.7)
[2023-05-15 18:19] LABS: Platelet Estimate Adequate (Adequate)
[2023-05-15 18:21] LABS: Schistocytes None Seen (NORMAL)
[2023-05-15 18:22] LABS: Anisocytosis 1+ (NORMAL); Hypochromasia 1+ (NORMAL)
[2023-05-15] MEDS: ASPIRIN 81 MG CHEWABLE TABLET 324 MG PO (18:34)
--- NOTE | 2023-05-15 19:23 | ED.RECABL ---
HPI - Recheck/Abnormal Lab/Rx General Chief Complaint: Recheck/Abnormal Lab/Rx Stated Complaint: elevated trop levels on saturday Time Seen by Provider: 05/15/23 17:57 History of Present Illness HPI narrative: Patient is a 63-year-old male with a history of ESRD on dialysis presenting with elevated troponins. Patient states that he normally walks about 5 miles every day in order to stay in shape. States that he developed severe chest pain 2 days ago while on his walk. He was seen at another ER and told that his symptoms were indigestion. He had another episode of chest pain today while on his walk and his called his pedodontist who reviewed the blood work and told him to come back for evaluation due to elevated troponin levels. He currently denies any complaints. States that the pain earlier radiated into his back and both of his shoulders. States that he had some lightheadedness but no shortness of breath. Reports a history of polycystic kidney disease. He denies fevers, cough, numbness or weakness, headache Related Data Home Medications Medication Instructions Recorded Confirmed amlodipine 5 mg tablet (Norvasc) See Rx Instructions .Route .COMPLEX 12/21/19 05/15/23 aspirin 81 mg tablet,delayed See Rx Instructions .Route .COMPLEX 12/21/19 05/15/23 release (Sheng Low Dose Aspirin) bumetanide 1 mg tablet 1 mg PO DAILY 10/23/22 05/15/23 famotidine 20 mg tablet 40 mg PO DAILY 10/23/22 05/15/23 Allergies Allergy/AdvReac Type Severity Reaction Status Date / Time No Known Allergies Allergy Verified 05/17/23 13:57 Review of Systems Review of Systems: All systems reviewed & are unremarkable except as noted in HPI and below PMFSH Past Medical History Medical History Anemia Ankle fracture, left Asthma CKD (chronic kidney disease) stage 4, GFR 15-29 ml/min Colon cancer screening COPD (chronic obstructive pulmonary disease) Emphysema of lung ESRD (end stage renal disease) on dialysis GERD (gastroesophageal reflux disease) HTN (hypertension) Myocardial infarction NSTEMI NSTEMI (non-ST elevated myocardial infarction) Pneumonia Polycystic kidney disease Renal osteodystrophy Surgical History Surgical History History of bladder surgery History of nephrectomy Right S/P cardiac catheterization Family History Family History Mother PCK (polycystic kidney disease) Social History Social History Smoking packs per day: 1.5 Smoking cigarettes per day: 30.0 Years smoked: 40 Smoking pack-years: 60.00 Smoking status: Former smoker Alcohol intake: never Substance use: never Substance use type: does not use Lack of Transportation: No Lack of Food: Never True Current Housing: I Have Housing Concerned About Future Housing: No Difficulty Paying Gas/Electric Bills: No Difficulty Paying for Meds: No Currently Unemployed: No Education: High School Diploma/GED Difficulty w/ Childcare or Family Care: No Living arrangements: with family Gender identity (if verbalized by the patient): Male Sexual Orientation (if Verbalized by the Patient): Straight or Heterosexual Spiritual care concerns: No Exam Narrative: GENERAL: Appears chronically ill, no acute distress, pleasant and cooperative HEAD: Normocephalic, atraumatic. EYES: PERRLA and EOMI. ENT: Nares clear, no rhinorrhea or epistaxis. Mucous membranes moist. NECK: Supple. CHEST: Clear to auscultation. No respiratory distress. HEART: Regular rate and rhythm. ABDOMEN: Soft, nontender, nondistended EXTREMITIES: Normal range of motion. No edema. SKIN: Warm, dry, no rash. NEURO: No focal deficits. Alert and oriented x3. PSYCH: Normal mood and affect. Course Vital Signs Vital signs: Vital Signs
[2023-05-15 20:30] LABS: Troponin I 0.972 ng/mL (0.000-0.034)
--- NOTE | 2023-05-15 20:49 | PM.IMHP ---
H&P: HPI History of Present Illness Date/Time: 05/15/23 20:49 Chief Complaint: Chest pain, r/o ACS. Narrative: Patient is a 63-year-old male with a history of ESRD, secondary to ADPCKD, on dialysis, CAD s/p AR several years ago presenting with elevated troponins.?He has been on hemodialysis for 3 years. He underwent resection of a [place] kidney due to abdominal discomfort related to polycystic kidney size. Patient states that he normally walks about 5 miles every day in order to stay in shape.?He had a stress test last 10/2022 which was unremarkable. Patient is active on a kidney transplant waitlist at [place]. The patient was in his usual state of health until 2 days prior to presentation. He states that he developed severe chest pain 2 days ago while on his walk.? He was seen at another ER and told that his symptoms were indigestion.? He had another episode of chest pain today while on his walk and his called his glazier apprentice who reviewed the blood work and told him to come back for evaluation due to elevated troponin levels.? He currently denies any complaints.? States that the pain earlier radiated into his back and both of his shoulders.? States that he had some lightheadedness but no shortness of breath.? He denies fevers, cough, numbness or weakness, headache. In the ED the patient is a temperature of 97.5? home pulse 58, respiration 20, blood pressure 112/59, pulse of 99 % on room air. He CBC shows a WBC of 6.9, hemoglobin 11.1, hematocrit 35.6, platelet count 242. His serum chemistry shows a sodium of 138, potassium 4.2, chloride 100, bicarbonate 32, BUN 30 and creatinine 3.7. Serum glucose is 81. Chest x-ray shows mild scaring at the lung apices. There were no acute finding in the chest, abdomen, pelvis. There is no CT evidence of aortic dissection or aneurysm. Troponin was elevated at 0.8 with repeat troponin 1.0. Patient was started on anti-platelet with aspirin, heparin drip. Cardiology was consulted. The hospital medicine service was consulted for evaluation and further management. Patient will be admitted under observation to IMU. Review of Systems Review of Systems: All systems reviewed & are unremarkable except as noted in HPI and below Constitutional: Constitutional: Denies chills and Denies fever(s) ENT: Denies dysphagia Cardiovascular: Cardiovascular: Reports chest pain Respiratory: Respiratory: Denies chest congestion, Denies cough and Denies dyspnea Gastrointestinal: Gastrointestinal: Denies abdominal pain [facility] Past Medical History Medical History (Updated 05/16/23 @ 06:38 by Alison Duckworth MD) Anemia Ankle fracture, left Asthma CKD (chronic kidney disease) stage 4, GFR 15-29 ml/min Colon cancer screening COPD (chronic obstructive pulmonary disease) Emphysema of lung GERD (gastroesophageal reflux disease) HTN (hypertension) Myocardial infarction NSTEMI Pneumonia Polycystic kidney disease Surgical History Surgical History (Updated 05/16/23 @ 06:38 by Alison Duckworth MD) History of bladder surgery History of nephrectomy Right S/P cardiac catheterization Family History Family History Mother PCK (polycystic kidney disease) Social History Social History Smoking packs per day: 1.5 Smoking cigarettes per day: 30.0 Years smoked: 40 Smoking pack-years: 60.00 Smoking status: Former smoker Alcohol intake: never Substance use: never Substance use type: does not use Lack of Transportation: No Lack of Food: Never True Current Housing: I Have Housing Concerned About Future Housing: No Difficulty Paying Gas/Electric Bills: No Difficulty Paying for Meds: No Currently Unemployed: No Education: High School Diploma/GED Difficulty w/ Childcare or Family Care: No Living arrangements: with family Gender identity (if verbalized by the patient): Male Sexual Orien
[2023-05-15] MEDS: HEPARIN SOD/D5W 100 UNITS/ML 25,000 UNITS/250 ML BAG 10 UNITS IV CONT (21:38)
[2023-05-15] MEDS: HEPARIN SODIUM 5,000 UNITS/ML VIAL 4000 UNITS IV PUSH (21:38)
--- NOTE | 2023-05-15 23:00 | ADMGEN ---
This patient, Abel Browne, was admitted to IMU Room 213-01 at 2230 . Patient/family oriented to hospital policies and general routines including ID bracelet, bed and alarms, visiting hours, pain management, procedures, bathroom and other care routines, personal items, smoking policy, room service/diet, and visiting hours. Information on how to activate the Rapid Response Team has been discussed. Patient/Family are encouraged to report perceived risks to care and to ask questions if they do not understand what they are told or what they should do.
[2023-05-16] VITALS (27 sets, daily range): BP systolic 107–141; BP diastolic 63–74; PULSE 54–77; RESP 12–22; TEMP 35.6–36.6; O2SAT 91–100
[2023-05-16 03:28] LABS: Basophils Percent Auto 0.8 % (0.2-1.2); Eosinophils Absolute Auto 0.1 K/mm3 (0-0.3); Eosinophils Percent Auto 2.3 % (0-4.4); Hematocrit 35.2 % (42.0-52.0); Hemoglobin 10.9 g/dL (14.0-18.0); Immature Granulocyte Absolute 0.02 K/mm3 (0.00-0.031); Immature Granulocyte Percent A 0.4 % (0-0.5); Lymphocytes Absolute Auto 1.66 K/mm3 (0.9-3.2); Lymphocytes Percent Auto 31.3 % (18.3-44.2); Mean Corpuscular Hemoglobin 32.5 pg (26-34); Mean Corpuscular Volume 105.1 fl (80-100); Mean Platelet Volume 9.5 fl (7.4-10.4); Monocytes Absolute Auto 0.8 K/mm3 (0.1-0.6); Monocytes Percent Auto 14.3 % (2.6-8.5); Neutrophils Absolute Auto 2.7 K/mm3 (1.3-6.7); Neutrophils Percent Auto 50.9 % (45.5-73.1); Platelet Count Result 224 k/mm3 (150-375); Red Blood Count 3.35 M/mm3 (4.6-6.20); Red Cell Distribution Width 13.3 % (11.5-14.5); White Blood Count 5.3 K/mm3 (4.5-10.0)
[2023-05-16 03:40] LABS: Partial Thromboplastin Time 91.6 SECONDS (22.3-36.8)
[2023-05-16 04:29] LABS: Hypochromasia 1+ (NORMAL); Macrocytosis 1+ (NORMAL); Platelet Estimate Adequate (Adequate); Schistocytes None Seen (NORMAL)
--- NOTE | 2023-05-16 06:30 | ECG_ITS ---
Measurements Intervals Brogue Rate: 54 P: 54 WV: 152 QRS: 46 QRSD: 101 T: 58 QT: 417 QTc: 399 Interpretive Statements SINUS BRADYCARDIA VENTRICULAR PREMATURE COMPLEX EARLY PRECORDIAL R/S TRANSITION BORDERLINE ECG COMPARED TO ECG 05/15/2023 16:11:43 NO SIGNIFICANT CHANGES Electronically Signed On 05-16-2023 10:13:55 CDT by Manny Urban D.O.
[2023-05-16 07:04] LABS: Anion Gap 3 mmol/L (8-16); Blood Urea Nitrogen 25 mg/dL (9-20); Carbon Dioxide 35 mmol/L (22-30); Chloride 101 mmol/L (98-107); Estimated CRCL calculation 18 ml/min; Estimated Glomerular Filt Rate 13; Glucose 64 mg/dL (65-110); Potassium 4.4 mmol/L (3.4-5.0); Sodium 139 mmol/L (137-145)
[2023-05-16] MEDS: ASPIRIN 81 MG ENTERIC TABLET PO (08:08)
[2023-05-16] MEDS: FAMOTIDINE 20 MG TABLET 40 MG PO (08:09)
[2023-05-16] MEDS: METOPROLOL TARTRATE 25 MG TABLET PO (08:09)
[2023-05-16] MEDS: BUMETANIDE 1 MG TABLET PO (08:09)
[2023-05-16] MEDS: amLODIPine BESYLATE 5 MG TABLET PO (08:10)
[2023-05-16 09:28] LABS: Partial Thromboplastin Time 53.4 SECONDS (22.3-36.8)
[2023-05-16] MEDS: HEPARIN SODIUM 5,000 UNITS/ML VIAL 4000 UNITS IV PUSH (10:25)
[2023-05-16 10:35] LABS: Hepatitis B Surface Antigen Negative (Negative)
[2023-05-16 10:53] LABS: Hepatitis B Surface Anti Res Positive
--- NOTE | 2023-05-16 13:14 | PM.CNNEP ---
Assessment and Plan Assessment and plan (1) ESRD (end stage renal disease) on dialysis: Code(s): N18.6 - End stage renal disease; Z99.2 - Dependence on renal dialysis Status: Acute Assessment and Plan: The patient has end-stage renal disease. He is on dialysis 3 times a week. He is due today but he is going to get a cardiac catheterization so we will do his treatment tomorrow. Volume status looks fine. He is not short of breath. His lungs are clear and he has no swelling. The patient's potassium is okay as well. (2) Chest pain: Qualifiers: Chest pain type: unspecified Qualified Code(s): R07.9 - Chest pain, unspecified Code(s): R07.9 - Chest pain, unspecified Status: Acute Assessment and Plan: The patient has chest pain/pressure. This is exertional. Is improved with rest. I agree that there is high suspicion for coronary issues even though his troponins are okay. This could just be angina. He has had coronary disease in the past and so is at risk for more events. He is going to get a cardiac catheterization today. (3) COPD (chronic obstructive pulmonary disease): Code(s): J44.9 - Chronic obstructive pulmonary disease, unspecified Status: Acute Assessment and Plan: He stopped smoking long ago. He is getting supportive care for COPD. (4) Anemia: Qualifiers: Anemia type: other cause Other causes of anemia: other cause, not classified Qualified Code(s): D64.89 - Other specified anemias Code(s): D64.9 - Anemia, unspecified Status: Acute Assessment and Plan: The patient has anemia. Hemoglobin is 10.9. Will give him Epogen on dialysis tomorrow. (5) Renal osteodystrophy: Code(s): N25.0 - Renal osteodystrophy Status: Acute Assessment and Plan: Will check a phosphorus in the morning History of Present Illness Reason for Consult Consult date: 05/16/23 Chief Complaint Chief complaint: Elevated Troponin History of Present Illness Narrative: Abel is a very pleasant 63-year-old gentleman who has multiple medical problems including end-stage renal disease on dialysis at [facility] under Dr. Cristobal weeks 3 times a week on Tuesdays and Saturdays, coronary disease status post ME, polycystic kidney disease, pneumonia in the past, hypertension, GERD, COPD, asthma, anemia, renal osteodystrophy. Patient says that he was fine until Saturday when he took a walk. He developed chest pain and pressure. He slowed down and stopped for a while and it took a lot longer to finish his walk but eventually he was able to make it home. He went to the ER that night at [place] and there they check troponins which were only mildly elevated. He was given a lidocaine solution to swallow and that helped his pain so he was discharged. He went to dialysis on Saturday and it went pretty well. On Saturday he took another walk and had more of the chest pressure. He called his petroleum inspector supervisor office and they instructed and did go to the emergency room. He was evaluated in the ER his troponins were high again. Repeat troponin was slightly higher than still. It was feared that he might be having a STEMI so he was placed on a heparin drip and admitted to the floor cardiology was consulted. Dr. Horner saw the patient a few minutes ago and said that they needed to take him for a cardiac catheterization. So he is going to day at about noon. The patient does not have any shortness of breath. No belly pain. No nausea vomiting diarrhea constipation. No black or bloody stools. He has been on dialysis for about 2 or 3 years. His dialysis has been going well. He does not gain a whole lot of weight between treatments. His labs are generally okay. He is on the kidney transplant list. Review of Systems Constitutional: Constitutional: Reports no additional constitutional complaints Eyes: Eyes: Reports no additional eye com
--- NOTE | 2023-05-16 13:24 | PM.CNCAR ---
Assessment and Plan Assessment and plan (1) NSTEMI (non-ST elevated myocardial infarction): Code(s): I21.4 - Non-ST elevation (NSTEMI) myocardial infarction Status: Acute Assessment and Plan: Episodes of exertional chest pain with elevated troponins. His cardiac cath from 2018 was personally reviewed and it did not show any significant CAD. Given his clinical presentation, recommended cardiac cath to re-evaluate coronary anatomy. Discussed procedure details with the patient, including risks vs benefits, and alternative management options. Patient agreeable. (2) ESRD (end stage renal disease) on dialysis: Code(s): N18.6 - End stage renal disease; Z99.2 - Dependence on renal dialysis Status: Acute Assessment and Plan: Nephrology consulted (3) Dysphagia: Code(s): R13.10 - Dysphagia, unspecified Status: Acute Assessment and Plan: Patient reports having difficulty eating some foods and drinking liquids, and feels like food and liquids feel like they get stuck when he swallows. Recommend GI consultation. History of Present Illness History of Present Illness Consult date/time: 05/16/23 13:24 Requesting physician: Neisha Ford MD Consult reason: chest pain and Other (Elevated troponins ) Reason For Visit: Elevated Troponin Narrative: We are consulted for chest pain and elevated troponins. This is a 63-year-old male who follows with Dr. Tee in the clinic. He has a history of NSTEMI in 09/2018 with significantly elevated troponins. Cardiac cath 09/2018 showed angiographically normal coronary arteries. Thought to have possible coronary artery spasm. Patient also has PCKD and is on hemodialysis. Being evaluated for renal transplant at [place]. Patient reports an episode of exertional chest pain that occurred Saturday morning. Patient states he normally walks a couple miles a day, but when walking, he developed anterior chest tightness with radiation to his shoulders. Would get better with rest. This occurred again with exertion yesterday. Patient was seen at [facility] on 05/13 for evaluation and was discharged home. Given repeat episode of exertional chest pain yesterday, he came to [place] ER. Patient also reports a history of feeling like food and water sometimes gets stuck when he is eating and drinking. Has had to avoid eating bread because of this. ER evaluation showed EKG without ischemic changes Initial troponin of 0.831 which navarro to 1.080. Review of Systems Review of Systems: All systems reviewed & are unremarkable except as noted in HPI and below (HPI) [facility] Past Medical History Medical History Anemia Ankle fracture, left Asthma CKD (chronic kidney disease) stage 4, GFR 15-29 ml/min Colon cancer screening COPD (chronic obstructive pulmonary disease) Emphysema of lung GERD (gastroesophageal reflux disease) HTN (hypertension) Myocardial infarction NSTEMI Pneumonia Polycystic kidney disease Surgical History Surgical History History of bladder surgery History of nephrectomy Right S/P cardiac catheterization Family History Family History Mother PCK (polycystic kidney disease) Social History Social History Smoking packs per day: 1.5 Smoking cigarettes per day: 30.0 Years smoked: 40 Smoking pack-years: 60.00 Smoking status: Former smoker Alcohol intake: never Substance use: never Substance use type: does not use Lack of Transportation: No Lack of Food: Never True Current Housing: I Have Housing Concerned About Future Housing: No Difficulty Paying Gas/Electric Bills: No Difficulty Paying for Meds: No Currently Unemployed: No Education: High School Diploma/GED Difficulty w/ Childcare or Family Care: No Living arran
--- NOTE | 2023-05-16 14:08 | WPDMODSED ---
Moderate Sedation Note-Pt Data Patient Data Diagnosis: NSTEMI Present Complaint: NSTEMI Procedure to be performed/Plan: Coronary angiography, left heart cath, +/- PCI Allergies Allergy/AdvReac Type Severity Reaction Status Date / Time No Known Allergies Allergy Verified 05/15/23 16:05 Home Medications Medication Instructions Recorded Confirmed Type amlodipine 5 mg tablet (Norvasc) See Rx Instructions .Route .COMPLEX 12/21/19 05/15/23 History aspirin 81 mg tablet,delayed See Rx Instructions .Route .COMPLEX 12/21/19 05/15/23 History release (Sheng Low Dose Aspirin) metoprolol tartrate 25 mg tablet 25 mg PO BID #30 tabs 05/16/20 05/15/23 Rx bumetanide 1 mg tablet 1 mg PO DAILY 10/23/22 05/15/23 History famotidine 20 mg tablet 40 mg PO DAILY 10/23/22 05/15/23 History pantoprazole 40 mg tablet,delayed 40 mg PO BID PRN 05/13/23 05/15/23 Rx release heartburn/esophagitis #20 tabs Current Medications: Active Medications Amlodipine Besylate (Amlodipine Besylate 5 Mg Tablet) 5 mg PO DAILY [facility] Last Admin: 05/16/23 08:10 Dose: 5 mg Aspirin (Aspirin 81 Mg Enteric Tablet) 81 mg PO QAM [facility] Last Admin: 05/16/23 08:08 Dose: 81 mg Bumetanide (Bumetanide 1 Mg Tablet) 1 mg PO DAILY [facility] Last Admin: 05/16/23 08:09 Dose: 1 mg Epoetin Vijay-epbx (Epoetin Vijay-Epbx 4,000 Units/Ml Vial) 8,[address] [facility] Epoetin Vijay-epbx (Epoetin Vijay-Epbx 2,000 Units/Ml Vial) 2,000 units IV PUSH [facility] Famotidine (Famotidine 20 Mg Tablet) 40 mg PO DAILY [facility] Last Admin: 05/16/23 08:09 Dose: 40 mg Sodium Chloride (Normal Saline Iv) 1,000 mls @ 999 mls/hr IV CONT .Q1H1M ONE Stop: 05/16/23 14:21 Albumin Human (Albutein) 50 mls @ 999 mls/hr IVPB Q10M PRN PRN Reason: HYPOTENSION Stop: 05/17/23 13:20 Metoprolol Tartrate (Metoprolol Tartrate 25 Mg Tablet) 25 mg PO Q12HR [facility] Last Admin: 05/16/23 08:09 Dose: 25 mg Pantoprazole Sodium (Pantoprazole 40 Mg Tablet) 40 mg PO BID PRN PRN Reason: heartburn/esophagitis Sedation/Anesthesia: No previous sedation/anesthesia problems (including family history). [facility] Past Medical History Medical History Anemia Ankle fracture, left Asthma CKD (chronic kidney disease) stage 4, GFR 15-29 ml/min Colon cancer screening COPD (chronic obstructive pulmonary disease) Emphysema of lung GERD (gastroesophageal reflux disease) HTN (hypertension) Myocardial infarction NSTEMI Pneumonia Polycystic kidney disease Surgical History Surgical History History of bladder surgery History of nephrectomy Right S/P cardiac catheterization Family History Family History Mother PCK (polycystic kidney disease) Social History Social History Smoking packs per day: 1.5 Smoking cigarettes per day: 30.0 Years smoked: 40 Smoking pack-years: 60.00 Smoking status: Former smoker Alcohol intake: never Substance use: never Substance use type: does not use Lack of Transportation: No Lack of Food: Never True Current Housing: I Have Housing Concerned About Future Housing: No Difficulty Paying Gas/Electric Bills: No Difficulty Paying for Meds: No Currently Unemployed: No Education: High School Diploma/GED Difficulty w/ Childcare or Family Care: No Living arrangements: with family Gender identity (if verbalized by the patient): Male Sexual Orientation (if Verbalized by the Patient): Straight or Heterosexual Spiritual care concerns: No Mod Sed Physical Exam Physical Exam Pre Procedural Exam: Normal: Appearance, Lungs, Heart Rate, Heart Rhythm, Neuro Exam, Abdomen, Extremities and Skin Hours since solid foods: 15 Hours since liquid intake: 8 Mallampati Classification: class III Internal Medicine - PN: Obj Da Vital Signs Vital Signs:
--- NOTE | 2023-05-16 14:09 | WPDCARDPROC ---
Cardiac Cath Procedure Note Date of procedure:: 05/16/23 Performing physician:: CATHETERIZATION LABORATORY REPORT Procedure Date: 05/16/2023 Service Parts Coordinator: Ashwin Horner M.D., [facility]? Referring Physician: Ashwin Horner M.D. ? Anesthesia: Versed and Fentanyl were ordered and given in my presence at 13:32, procedure ended at 13:57. Supervision of nurse monitored moderate sedation with Versed and Fentanyl was provided for 25 minutes. Total of Versed 1mg and Fentanyl 50mcg were administered by the Business Test Analyst RN Lida Chavez. Pre-op Diagnosis: Coronary artery disease Post-op Diagnosis: 1. Nonobstructive coronary arteries. Angiographically, the coronary arteries are unchanged compared to prior cath. 2. Left ventricular end-diastolic pressure of 24mmHg Procedure(s): 1. Moderate sedation 2. Ultrasound-guided access of the right common femoral artery 3. Coronary angiography 4. Left heart cath Access Site: Right common femoral artery Brief History and Clinical Indications: Patient is a 63 year old male who is referred for [facility] for NSTEMI. All risks, benefits and alternatives to left heart catheterization with or without percutaneous coronary intervention was discussed at length with the patient. Risk of complications including but not limited to bleeding, infection, arrhythmia, stroke, worsening kidney function, blood loss, groin hematoma, limb loss, emergency coronary artery bypass grafting, and even were discussed with the patient and all questions were answered. The patient understood and wished to proceed. Time out called, patient name, date of , medical record number, allergies, procedure performed, identify Service Parts Coordinator, patient and staff member concurred with accurate data, procedure carried on. Findings: LEFT HEART CATHETERIZATION FINDINGS: 1. Left main: The left main coronary artery is widely patent without any significant obstructive disease. 2. Left anterior descending: The LAD and the diagonal branches have mild luminal irregularities without any significant obstructive angiographic disease. The mid-distal LAD is of small caliber. 3. Left circumflex: The left circumflex artery and the main marginal branches have mild luminal irregularities without any significant obstructive angiographic disease. 4. Right coronary artery: The RCA has mild luminal irregularities without any significant obstructive angiographic disease. The RCA is the dominant vessel. 5. Left ventricle: A. End-diastolic pressure 24mmHg. B. LV gram deferred. C. No significant gradient across aortic valve on catheter pullback. Description of Procedure: Informed consent signed and placed in the chart. Patient transferred to laboratory animal caretaker room. Prepped and draped in usual sterile fashion. 2% lidocaine in right groin area. Micropuncture needle used to access right common femoral artery under ultrasound guidance. J wire advanced, micropuncture cannula placed. Right iliofemoral angiogram performed, access confirmed and micropuncture cannula exchanged for 5-FR sheath. 5F FL 4 diagnostic catheter engaged Left Main Coronary Artery. 5F FR 4 diagnostic catheter engaged Right Coronary Artery. Multiple orthogonal angiogram obtained and reviewed 5F Pigtail diagnostic catheter crossed aortic valve to obtain LVEDP, LV angiogram deferred. Hemostasis was achieved by manual pressure. ? Assessment: 1. Nonobstructive coronary arteries. Angiographically, the coronary arteries are unchanged compared to prior cath. 2. Left ventricular end-diastolic pressure of 24mmHg Post Operative Condition: Stable No significant blood loss Disposition: Floor Plan: The patient will be monitored in the recovery area. The above findings were discussed with the referring physician. Continue aggressive medical therapy and risk factor modification. ? Ashwin Horner M.D. Interventional Cardiology
[2023-05-16 14:35] LABS: Activated Clotting Time 149 SEC (74-137)
--- NOTE | 2023-05-16 17:23 | PM.IMPN ---
Progress Note: A&P Assessment and Plan (1) NSTEMI (non-ST elevated myocardial infarction): Code(s): I21.4 - Non-ST elevation (NSTEMI) myocardial infarction Status: Acute Assessment and Plan: Patient symptoms of chest pain occurring with exercise are concerning for acute coronary syndrome. Patient has a history of prior TN. Troponins peaked at 1.08. EKG showing iRBBB but no change. The patient was started on anti-platelet, heparin drip. Cardiology consulted. LHC showing non obstructive coronary arteries. Discussed with Cardiology. Patient may be having coronary spasm. Continue medical management. (2) Dysphagia: Code(s): R13.10 - Dysphagia, unspecified Status: Acute Assessment and Plan: Patient complains of dysphagia that appears to be longstanding. He has a history of GERD. Continue Pepcid. GI consult for possible EGD. (3) Polycystic kidney disease: Code(s): Q61.3 - Polycystic kidney, unspecified Status: Acute Assessment and Plan: Patient has a family history of polycystic kidney disease. His mother of an aneurysm. Patient underwent all the appropriate screening testing. (4) ESRD (end stage renal disease) on dialysis: Code(s): N18.6 - End stage renal disease; Z99.2 - Dependence on renal dialysis Status: Acute Assessment and Plan: ESRD on hemodialysis Saturdays. Nephrology consulted. Plan for dialysis tomorrow. Plan DVT prophylaxis scds Code status is a full code. Subjective Date/time seen: 05/16/23 17:23 Interval history: 63yo male with ESRD and CAD here for chest pain. Patient feels well. no CP or SOB. Has been having complanits of dysphagia but this is long standing. He has never had an EGD. he was in the process of a workup with what sounds like a gastric probe placement but never had this done. No cocaine use. Exam Narrative: AF 96.8 128/65 61 18 95% Gen - NARD Chest - lungs clear anteriorly, nml RR CV - RRR S1/S2. Tele showing no significant dysrhythmias. Abd - Soft, NT/ND, Positive BS. Right groiin site without hematoma Ext - No pedal edema. Thrill and bruit Left upper arm Psych - Nml mood and affect Skin - Warm and dry Objective Data Vital Signs Vital Signs: Vital Signs - 24 hr 07/19/23 17:51 05/15/23 18:00 05/15/23 18:15 Temperature Pulse Rate 49 L 58 L 58 L Respiratory Rate 15 14 13 Blood Pressure Pulse Oximetry 99 99 98 Oxygen Delivery 05/15/23 18:30 05/15/23 18:31 05/15/23 18:45 Temperature Pulse Rate 54 L 55 L 59 L Respiratory Rate 17 19 13 Blood Pressure 106/71 Pulse Oximetry 96 97 99 Oxygen Delivery 05/15/23 19:02 05/15/23 19:15 05/15/23 19:16 Temperature Pulse Rate 55 L 61 52 L Respiratory Rate 14 19 14 Blood Pressure 133/75 Pulse Oximetry 97 100 97 Oxygen Delivery 05/15/23 19:30 05/15/23 19:54 05/15/23 20:00 Temperature Pulse Rate 60 74 64 Respiratory Rate 18 15 19 Blood Pressure Pulse Oximetry 98 98 97 Oxygen Delivery 05/15/23 23:01 05/16/23 00:00 05/16/23 00:00 Temperature 97.8 F Pulse Rate 66 61 Respiratory Rate 18 Blood Pressure 122/59 L Pulse Oximetry 88 L Oxygen Delivery Room Air 05/16/23 03:35 05/16/23 04:00 05/16/23 04:00 Temperature 97.8 F Pulse Rate 55 L 58 L Respiratory Rate 18 Blood Pressure 117/65 Pulse Oximetry 91 Oxygen Delivery Room Air 05/16/23 08:09 05/16/23 08:17 05/16/23 12:11 Temperature 96.2 F L 96.1 F L Pulse Rate 60 58 L 56 L Respiratory Rate 22 H 18 Blood Pressure 119/65 139/72 Pulse Oximetry 97 98 Oxygen Delivery 05/16/23 14:24 05/16/23 14:26 05/16/23 14:30 Temperature Pulse Rate 66 66 63 Respiratory Rate 14 20 14 Blood Pressure 121/72 134/63 120/74 Pulse Oximetry 95 100 95 Oxygen Delivery Room Air Room Air Room Air 05/16/23 14:35 05/16/23 14:40 05/16/23 14:45 Temperature Pulse Rate 66 61 62 Respir
[2023-05-17] VITALS (25 sets, daily range): BP systolic 107–146; BP diastolic 58–76; PULSE 52–93; RESP 14–26; TEMP 35.9–37; O2SAT 95–97
--- NOTE | 2023-05-17 06:06 | WPDGICN ---
Assessment and Plan Assessment and plan (1) Dysphagia: Code(s): R13.10 - Dysphagia, unspecified Status: Acute Assessment and Plan: He has had this for several years and is becoming so frequent that happens almost every day. Anything like meat or bread will get hung up on the way down a may have to stop eating. He has not lost weight. He has never had EGD or been referred for EGD to investigate this. (2) NSTEMI (non-ST elevated myocardial infarction): Code(s): I21.4 - Non-ST elevation (NSTEMI) myocardial infarction Status: Acute Assessment and Plan: He has history of coronary artery disease. He underwent catheterization yesterday which was negative for acute occlusion. (3) Polycystic kidney disease: Code(s): Q61.3 - Polycystic kidney, unspecified Status: Acute Assessment and Plan: this has resulted in him having chronic renal failure for which he is on dialysis 3 times a week. He states that he has cysts in his liver as well. He wondered if perhaps he had a cyst in his stomach or esophagus that broke yesterday. I explain him that these cysts form generally only in solid organs. (4) ESRD (end stage renal disease) on dialysis: Code(s): N18.6 - End stage renal disease; Z99.2 - Dependence on renal dialysis Status: Acute Assessment and Plan: on chronic hemodialysis and due for dialysis treatment today. Plan EGD today. The procedure was explained including the possible risks such as bleeding or perforation particularly due to the need to dilate his esophagus. GI Consult Note Consult date/time: 05/17/23 06:06 HPI: Abel Browne is a 63 year old male with chronic kidney disease due to polycystic disease. He also has coronary artery disease and presented yesterday to the emergency room with chest pain which did radiate to his back. He underwent catheterization yesterday with no acute findings, according to him. (The computers are not allowing me to review those records at this time.) I am asked to see him because he states that he has had difficulty swallowing for several years foods, particularly bread, meat, rice will get caught alf down. He will need to stop eating or drink water to help it pass. He does have chronic heartburn for which he uses famotidine. He denies weight loss. he is hopeful of a kidney transplant. He has had 1 kidney removed already and has been on hemodialysis for least 3 years. Review of Systems Review of Systems: All systems reviewed & are unremarkable except as noted in HPI and below PMFSH Past Medical History Medical History Anemia Ankle fracture, left Asthma CKD (chronic kidney disease) stage 4, GFR 15-29 ml/min Colon cancer screening COPD (chronic obstructive pulmonary disease) Emphysema of lung GERD (gastroesophageal reflux disease) HTN (hypertension) Myocardial infarction NSTEMI Pneumonia Polycystic kidney disease Surgical History Surgical History History of bladder surgery History of nephrectomy Right S/P cardiac catheterization Family History Family History Mother PCK (polycystic kidney disease) Social History Social History Smoking packs per day: 1.5 Smoking cigarettes per day: 30.0 Years smoked: 40 Smoking pack-years: 60.00 Smoking status: Former smoker Alcohol intake: never Substance use: never Substance use type: does not use Lack of Transportation: No Lack of Food: Never True Current Housing: I Have Housing Concerned About Future Housing: No Difficulty Paying Gas/Electric Bills: No Difficulty Paying for Meds: No Currently Unemployed: No Education: High School Diploma/GED Difficulty w/ Childcare or Family Care: No Wendy
--- NOTE | 2023-05-17 07:02 | PC.NURSE ---
Paper documentation exists on this patient due to [employer] downtime on 05/17/23 from to [0700] .
[2023-05-17 07:48] LABS: Albumin Level 3.8 g/dL (3.5-5.1); Anion Gap 7 mmol/L (8-16); Blood Urea Nitrogen 34 mg/dL (9-20); Calcium 8.5 mg/dL (8.4-10.2); Carbon Dioxide 30 mmol/L (22-30); Chloride 101 mmol/L (98-107); Estimated CRCL calculation 12 ml/min; Estimated Glomerular Filt Rate 9; Glucose 90 mg/dL (65-110); Sodium 138 mmol/L (137-145)
--- NOTE | 2023-05-17 10:10 | WPDANESEPPF ---
Anes - Initial Pre Proc Eval Procedure: Operation Date: 05/16/23 13:30 Proposed Procedures p Left Heart Cath - Ashwin Horner MD Operation Date: 05/17/23 14:45 Proposed Procedures p Esophagogastroduodenoscopy - Javi Oscar MD Date/Time: 05/17/23 10:10 Surgeon: Alison Duckworth MD Pre Op Diagnosis: Elevated Troponin Patient Data Age: 63 Gender: M Height: 1.91 m Weight: 81.7 kg Last Vital Signs Temp 36.4 C 05/17/23 08:18 Pulse 52 L 05/17/23 08:18 Resp 18 05/17/23 08:18 BP 132/59 L 05/17/23 08:18 Pulse Ox 97 05/17/23 08:18 O2 Del Method Room Air 05/16/23 23:20 Allergies Allergy/AdvReac Type Severity Reaction Status Date / Time No Known Allergies Allergy Verified 05/17/23 13:57 Home Medications Medication Instructions Recorded Confirmed Type amlodipine 5 mg tablet (Norvasc) See Rx Instructions .Route .COMPLEX 12/21/19 05/15/23 History aspirin 81 mg tablet,delayed See Rx Instructions .Route .COMPLEX 12/21/19 05/15/23 History release (Sheng Low Dose Aspirin) metoprolol tartrate 25 mg tablet 25 mg PO BID #30 tabs 05/16/20 05/15/23 Rx bumetanide 1 mg tablet 1 mg PO DAILY 10/23/22 05/15/23 History famotidine 20 mg tablet 40 mg PO DAILY 10/23/22 05/15/23 History pantoprazole 40 mg tablet,delayed 40 mg PO BID PRN 05/13/23 05/15/23 Rx release heartburn/esophagitis #20 tabs isosorbide mononitrate 30 mg 30 mg PO QAM #30 tabs 05/17/23 Rx tablet,extended release 24 hr Laboratory Tests 05/16/23 05/16/23 05/17/23 03:02 14:17 05:00 Activ Coag Time Kaolin 149 H SEC (74-137) Sodium 138 mmol/L (137-145) Potassium 5.0 mmol/L (3.4-5.0) Chloride 101 mmol/L (98-107) Carbon Dioxide 30 mmol/L (22-30) Anion Gap 7 L mmol/L (8-16) BUN 34 H mg/dL (9-20) Creatinine 6.60 H mg/dL (0.7-1.3) Estim Creat Clear Calc 12 ml/min Estimated GFR 9 L (59 - ) Glucose 90 mg/dL (65-110) Calcium 8.5 mg/dL (8.4-10.2) Phosphorus 5.0 H mg/dL (2.5-4.5) Albumin 3.8 g/dL (3.5-5.1) Hep Bs Antigen Negative (Negative) Hep Bs Antibody Positive Patient hx anesthesia problems: none Family hx anesthesia problems: none Results Review: All pre-operative results and documents have been reviewed as part of the pre-operative evaluation. [facility] Past Medical History Medical History Anemia Ankle fracture, left Asthma CKD (chronic kidney disease) stage 4, GFR 15-29 ml/min Colon cancer screening COPD (chronic obstructive pulmonary disease) Emphysema of lung ESRD (end stage renal disease) on dialysis GERD (gastroesophageal reflux disease) HTN (hypertension) Myocardial infarction NSTEMI NSTEMI (non-ST elevated myocardial infarction) Pneumonia Polycystic kidney disease Renal osteodystrophy Surgical History Surgical History History of bladder surgery History of nephrectomy Right S/P cardiac catheterization Family History Family History Mother PCK (polycystic kidney disease) Social History Social History Smoking packs per day: 1.5 Smoking cigarettes per day: 30.0 Years smoked: 40 Smoking pack-years: 60.00 Smoking status: Former smoker Alcohol intake: never Substance use: never Substance use type: does not use Lack of Transportation: No Lack of Food: Never True Current Housing: I Have Housing Concerned About Future Housing: No Difficulty Paying Gas/Electric Bills: No Difficulty Paying for Meds: No Currently Unemployed: No Education: High School Diploma/GED Difficulty w/ Childcare or Family Care: No Living arrangements: with family Gender identity (if v
--- NOTE | 2023-05-17 11:14 | PM.PNNEP ---
Progress Note: A&P Assessment and Plan (1) ESRD (end stage renal disease) on dialysis: Code(s): N18.6 - End stage renal disease; Z99.2 - Dependence on renal dialysis Status: Acute Assessment and Plan: The patient has end-stage renal disease. He is on dialysis 3 times a week. He is due today but he is going to get a cardiac catheterization so we will do his treatment tomorrow. Volume status looks fine. He is not short of breath. His lungs are clear and he has no swelling. Potassium is okay Dialysis is underway (2) Chest pain: Qualifiers: Chest pain type: unspecified Qualified Code(s): R07.9 - Chest pain, unspecified Code(s): R07.9 - Chest pain, unspecified Status: Acute Assessment and Plan: The patient has chest pain/pressure. This is exertional. Is improved with rest. I agree that there is high suspicion for coronary issues even though his troponins are okay. This could just be angina. He has had coronary disease in the past and so is at risk for more events. Catheterization was negative. GI workup is planned (3) COPD (chronic obstructive pulmonary disease): Code(s): J44.9 - Chronic obstructive pulmonary disease, unspecified Status: Acute Assessment and Plan: He stopped smoking long ago. He is getting supportive care for COPD. (4) Anemia: Qualifiers: Anemia type: other cause Other causes of anemia: other cause, not classified Qualified Code(s): D64.89 - Other specified anemias Code(s): D64.9 - Anemia, unspecified Status: Acute Assessment and Plan: The patient has anemia. Hemoglobin is 10.9. Will give him Epogen again on dialysis tomorrow. (5) Renal osteodystrophy: Code(s): N25.0 - Renal osteodystrophy Status: Acute Assessment and Plan: Phosphorus doing well at 5 Subjective Date/time seen: 05/17/23 11:14 Interval history: Patient is alert. He feels okay. His catheterization was negative so is going to get a GI workup He is on dialysis now and tolerating it well. His blood pressure is doing well. He never has very much fluid on. We are going for 1L today and will decrease the UF if we need to. He was seen at 10:20 am Will do him again tomorrow to get him back on schedule. Review of Systems Cardiovascular: Cardiovascular: Reports no additional cardiovascular complaints Respiratory: Respiratory: Reports no additional respiratory complaints Gastrointestinal: Gastrointestinal: Reports no additional gastrointestinal complaints Genitourinary: Genitourinary: Reports no additional male genitourinary complaints Exam Narrative: WDWN in NAD skin no rash head ncat lungs clear cor reg no rub abd BS+ nontender and soft ext no edema. Objective Data Vital Signs Vital Signs: Vital Signs - 24 hr 05/16/23 12:11 05/16/23 14:24 05/16/23 14:26 Temperature 96.1 F L Pulse Rate 56 L 66 66 Respiratory Rate 18 14 20 Blood Pressure 139/72 121/72 134/63 Pulse Oximetry 98 95 100 Oxygen Delivery Room Air Room Air 05/16/23 14:30 05/16/23 14:35 05/16/23 14:40 Temperature Pulse Rate 63 66 61 Respiratory Rate 14 16 12 Blood Pressure 120/74 113/69 122/71 Pulse Oximetry 95 95 97 Oxygen Delivery Room Air Room Air Room Air 05/16/23 14:45 05/16/23 14:50 05/16/23 14:55 Temperature Pulse Rate 62 55 L 56 L Respiratory Rate 19 16 20 Blood Pressure 139/73 117/70 138/68 Pulse Oximetry 95 98 98 Oxygen Delivery Room Air Room Air Room Air 05/16/23 15:00 05/16/23 15:15 05/16/23 15:30 Temperature Pulse Rate 63 60 57 L Respiratory Rate 15 14 15 Blood Pressure 141/73 H 126/74 125/69 Pulse Oximetry 97 97 95 Oxygen Delivery Room Air Room Air Room Air 05/16/23 16:28 05/16/23 12:00 05/16/23 16:00 Temperature 96.8 F L Pulse Rate 61 57 L 57 L Respiratory Rate 18 Blood Pressure 128/65 Pulse Oximetry 95 Oxygen Delivery 05/16/23 18:00 0
[2023-05-17] MEDS: EPOETIN ALFA 10,000 UNITS/ML VIAL 10000 UNITS IV PUSH (11:39)
[2023-05-17] MEDS: SODIUM CHLORIDE 0.9% IV 500 ML 10 ML IV CONT (14:03)
--- NOTE | 2023-05-17 14:04 | WPDANESEPPF ---
Anes - Initial Pre Proc Eval Procedure: Operation Date: 05/16/23 13:30 Proposed Procedures p Left Heart Cath - Ashwin Horner MD Operation Date: 05/17/23 15:45 Proposed Procedures p Esophagogastroduodenoscopy - Javi Oscar MD Date/Time: 05/17/23 14:04 Surgeon: Alison Duckworth MD Pre Op Diagnosis: Elevated Troponin Patient Data Age: 63 Gender: M Height: 1.91 m Weight: 81.7 kg Last Vital Signs Temp 36.4 C 05/17/23 13:58 Pulse 63 05/17/23 13:58 Resp 20 05/17/23 13:58 BP 129/69 05/17/23 13:58 Pulse Ox 97 05/17/23 13:58 O2 Del Method Room Air 05/17/23 13:58 Allergies Allergy/AdvReac Type Severity Reaction Status Date / Time No Known Allergies Allergy Verified 05/17/23 13:57 Home Medications Medication Instructions Recorded Confirmed Type amlodipine 5 mg tablet (Norvasc) See Rx Instructions .Route .COMPLEX 12/21/19 05/15/23 History aspirin 81 mg tablet,delayed See Rx Instructions .Route .COMPLEX 12/21/19 05/15/23 History release (Sheng Low Dose Aspirin) metoprolol tartrate 25 mg tablet 25 mg PO BID #30 tabs 05/16/20 05/15/23 Rx bumetanide 1 mg tablet 1 mg PO DAILY 10/23/22 05/15/23 History famotidine 20 mg tablet 40 mg PO DAILY 10/23/22 05/15/23 History pantoprazole 40 mg tablet,delayed 40 mg PO BID PRN 05/13/23 05/15/23 Rx release heartburn/esophagitis #20 tabs Laboratory Tests 05/16/23 05/17/23 14:17 05:00 Activ Coag Time Kaolin 149 H SEC (74-137) Sodium 138 mmol/L (137-145) Potassium 5.0 mmol/L (3.4-5.0) Chloride 101 mmol/L (98-107) Carbon Dioxide 30 mmol/L (22-30) Anion Gap 7 L mmol/L (8-16) BUN 34 H mg/dL (9-20) Creatinine 6.60 H mg/dL (0.7-1.3) Estim Creat Clear Calc 12 ml/min Estimated GFR 9 L (59 - ) Glucose 90 mg/dL (65-110) Calcium 8.5 mg/dL (8.4-10.2) Phosphorus 5.0 H mg/dL (2.5-4.5) Albumin 3.8 g/dL (3.5-5.1) Patient hx anesthesia problems: none Family hx anesthesia problems: none Results Review: All pre-operative results and documents have been reviewed as part of the pre-operative evaluation. [facility] Past Medical History Medical History Anemia Ankle fracture, left Asthma CKD (chronic kidney disease) stage 4, GFR 15-29 ml/min Colon cancer screening COPD (chronic obstructive pulmonary disease) Emphysema of lung ESRD (end stage renal disease) on dialysis GERD (gastroesophageal reflux disease) HTN (hypertension) Myocardial infarction NSTEMI NSTEMI (non-ST elevated myocardial infarction) Pneumonia Polycystic kidney disease Renal osteodystrophy Surgical History Surgical History History of bladder surgery History of nephrectomy Right S/P cardiac catheterization Family History Family History Mother PCK (polycystic kidney disease) Social History Social History Smoking packs per day: 1.5 Smoking cigarettes per day: 30.0 Years smoked: 40 Smoking pack-years: 60.00 Smoking status: Former smoker Alcohol intake: never Substance use: never Substance use type: does not use Lack of Transportation: No Lack of Food: Never True Current Housing: I Have Housing Concerned About Future Housing: No Difficulty Paying Gas/Electric Bills: No Difficulty Paying for Meds: No Currently Unemployed: No Education: High School Diploma/GED Difficulty w/ Childcare or Family Care: No Living arrangements: with family Gender identity (if verbalized by the patient): Male Sexual Orientation (if Verbalized by the Patient): Straight or Heterosexual Spiritual care concerns: No Anes - Eval Final PreProcedure Day of Procedure 05/17/23 14:04 Patient weight: normal
[2023-05-17] MEDS: ISOSORBIDE MONONITRATE 30 MG TAB.ER.24H PO (16:11)
[2023-05-17] MEDS: ASPIRIN 81 MG ENTERIC TABLET PO (16:11)
[2023-05-17] MEDS: amLODIPine BESYLATE 5 MG TABLET PO (16:12)
[2023-05-17] MEDS: METOPROLOL TARTRATE 25 MG TABLET PO (16:12)
[2023-05-17] MEDS: BUMETANIDE 1 MG TABLET PO (16:12)
[2023-05-17] MEDS: FAMOTIDINE 20 MG TABLET 40 MG PO (16:12)
[2023-05-17] MEDS: DOCUSATE SODIUM 100 MG CAPSULE PO (17:09)
--- NOTE | 2023-05-17 17:09 | PM.DS ---
DS: Admitting Diagnosis Discharge Date 05/17/23 Admitting Diagnosis Chest pain DS: Discharge Diagnosis Discharge Diagnosis (1) NSTEMI (non-ST elevated myocardial infarction): Code(s): I21.4 - Non-ST elevation (NSTEMI) myocardial infarction Status: Acute (2) Dysphagia: Code(s): R13.10 - Dysphagia, unspecified Status: Acute (3) Polycystic kidney disease: Code(s): Q61.3 - Polycystic kidney, unspecified Status: Acute (4) ESRD (end stage renal disease) on dialysis: Code(s): N18.6 - End stage renal disease; Z99.2 - Dependence on renal dialysis Status: Acute (5) Esophageal motility disorder: Code(s): K22.4 - Dyskinesia of esophagus Status: Acute (6) Esophageal stricture: Code(s): K22.2 - Esophageal obstruction Status: Acute DS: Summary Hospital Course Reason for hospitalization: 63yo male with ESRD and CAD here for chest pain. Please see H&P for details. Hospital Course: Patient had chest pain occurring with exercise with concern for acute coronary syndrome.? Patient has a history of prior TX. Troponins peaked at 1.08. EKG showing iRBBB but no change. CXR showing mild scarring at the lung apices. CT Chest/Abd/pelvis showing no acute findings and no evidence of aortic dissection or aneurysm. The patient was started on anti-platelet therapy and heparin drip.? Cardiology was consulted. Left heart catheterization on 05/16 showing non obstructive coronary arteries. Patient may be having coronary spasm.?He is already on Norvasc. Patient was also complaining of dysphagia with food sticking sensation that appears to be longstanding.? He has a history of GERD. GI was consult for EGD. EGD showing tertiary contraction with a moderate stenosis noted in the midesophagus. Patient underwent balloon dilation using a 15-18 mm balloon. A few diverticuli were noted in the midesophagus. The stomach and duodenum were normal appearing. Spoke with GI who stated biopsies were taken as well. Patient was seen by Nephrology. He underwent hemodialysis the day after his heart catheterization which he tolerated well. It should be clarified that the patient has dialysis on [id number]. Patient can be discharged home today with plans to continue his dialysis per his routine on May 20. Patient overall did well and was able be discharged home on 05/17/2023. Status at Discharge Cognitive/behavioral status at discharge: stable Time Spent with Patient Time attestation: Total time spent providing and/or coordinating discharge services: 38 minutes Time spent: Greater than 30 minutes Exam Narrative: AF 96.6 143/67 68 16 97% Gen - NARD Chest - lungs clear anteriorly, nml RR CV - RRR S1/S2. Tele showing no significant dysrhythmias. Abd - Soft, NT/ND, Positive BS. Ext - No pedal edema. Thrill and bruit left upper arm Psych - Nml mood and affect Skin - Warm and dry DS: Data Data Completed and Pending Pending studies at discharge: Pending at discharge 05/17/23 15:10 Surgical [PTH] Routine Labs on day of discharge: Labs from last 24 hours 05/17/23 05:00 Sodium 138 Potassium 5.0 Chloride 101 Carbon Dioxide 30 Anion Gap 7 L BUN 34 H Creatinine 6.60 H Estim Creat Clear Calc 12 Estimated GFR 9 L Glucose 90 Calcium 8.5 Phosphorus 5.0 H Albumin 3.8 Discharge Plan Discharge Attending physician on discharge: Karlos Muller Consulting providers: Sony Rangel; Cece Patel; Javi Oscar Discharging Clinician: Karlos Muller Anticipated Discharge Date/Time: 05/17/23 17:24 Patient Disposition: Home, Self-Care Activity: as tolerated Diet: heart healthy and renal Discharge Instructions: Patient is current with [facility] [place] on // schedule with 06:00am chair time. Contact your doctor or call 911 and come to the Emergency Room if you have chest pain, light
== END 2023-05-17 18:26 | disposition home or self-care (01) ==
LOC: ANHED 22:29 → ANHIMU 05-16 02:06
PROVIDERS: Emergency Medicine; Internal Medicine; Internal Medicine Gastroenterology; Internal Medicine Nephrology; Admitting Provider Internal Medicine; Emergency Provider Emergency Medicine; PCP Internal Medicine; Visit Provider Internal Medicine
PROC: 4A023N7 Measurement of Cardiac Sampling and Pressure, Left Heart, Percutaneous Approach (ICD-10-PCS; CPT 93452; principal; 2023-05-16 13:30)
PROC: 0DJ08ZZ Inspection of Upper Intestinal Tract, Via Natural or Artificial Opening Endoscopic (ICD-10-PCS; CPT 43235; principal; 2023-05-17 15:45)
DX: I21.4 Non-ST elevation (NSTEMI) myocardial infarction (principal); K22.2 Esophageal obstruction; K22.5 Diverticulum of esophagus, acquired; K22.4 Dyskinesia of esophagus; R13.10 Dysphagia, unspecified; Q61.2 Polycystic kidney, adult type; I12.0 Hypertensive chronic kidney disease with stage 5 chronic kidney disease or end stage renal disease; N18.6 End stage renal disease; Z99.2 Dependence on renal dialysis; D63.1 Anemia in chronic kidney disease; Z90.5 Acquired absence of kidney; K21.9 Gastro-esophageal reflux disease without esophagitis; J44.9 Chronic obstructive pulmonary disease, unspecified; R12 Heartburn; N25.0 Renal osteodystrophy; I49.3 Ventricular premature depolarization; I25.10 Atherosclerotic heart disease of native coronary artery without angina pectoris; I25.2 Old myocardial infarction; Z87.891 Personal history of nicotine dependence; Z87.01 Personal history of pneumonia (recurrent); R79.89 Other specified abnormal findings of blood chemistry; Z79.82 Long term (current) use of aspirin; Z79.899 Other long term (current) drug therapy
CPT/HCPCS: 43249; 36415; 71046; 71275; 74174; 80048; 80053; 80069; 83690; 84484; 85025; 85610; 85730; 86706; 87340; 88305; 93005; 93458; 96365; 96366; 99285; A9270; C1726; C1887; C1894; G0257; G0378; J0461; J1644; J2250; J2305; J2704; J3010; J7030; J7040; Q4081; Q9967

== ENCOUNTER 2023-11-12 08:36 | Outpatient (CLI) | payer OTHER, MEDICARE, SELFPAY ==
[2023-11-12 10:03] LABS: Prostate Specific Antigen 1.2 ng/mL (< OR = 4.0)
== END 2023-11-12 08:37 | disposition home or self-care (01) ==
LOC: CHSLAB 08:40
PROVIDERS: PCP Internal Medicine; Visit Provider Internal Medicine Nephrology
DX: Z01.810 Encounter for preprocedural cardiovascular examination (principal)
CPT/HCPCS: 36415; 84153; G0103

== ENCOUNTER 2024-01-31 11:18 | Emergency (ER) | payer MEDICARE, OTHER, SELFPAY ==
--- NOTE | ~2024-01-31 | XR_ITS ---
XR chest 2V DATE: 01/31/2024 11:48 INDICATION: Chest pain following dialysis treatment. History of myocardial infarction. TECHNIQUE: 2 views, PA and lateral projections COMPARISON: 05/15/2023 2 view chest 05/15/2023 CTA chest abdomen pelvis FINDINGS: Bilateral hyperinflation, suggesting obstructive airways disease. No pulmonary infiltrate o r consolidation or pulmonary mass lesion is evident. Normal heart size. No hilar or mediastinal enlargement. No pleural effusion or pulmonary vascular con gestion or pneumothorax. Osteopenia. IMPRESSION: Moderate hyperinflation, suggesting obstructive airways disease No active cardiopulmonary disease Reviewed, dictated and finalized at location B.
[2024-01-31 11:19] VITALS: BP 105/57; PULSE 119; RESP 20; TEMP 36.6; O2SAT 100
--- NOTE | 2024-01-31 11:21 | ECG_ITS ---
Measurements Intervals [place] Rate: 58 P: [place]: 0 QRS: 56 QRSD: 106 T: 65 QT: 421 QTc: 414 Interpretive Statements SINUS BRADYCARDIA ABNORMAL RHYTHM ECG COMPARED TO ECG 05/16/2023 09:32:25 NO SIGNIFICANT CHANGES Electronically Signed On 01-31-2024 12:36:34 CDT by Donaldo Tee M.D.
[2024-01-31 11:37] LABS: Basophils Absolute Auto 0.1 K/mm3 (0.0-0.1); Basophils Percent Auto 0.8 % (0.2-1.2); Eosinophils Absolute Auto 0.1 K/mm3 (0-0.3); Eosinophils Percent Auto 1.8 % (0-4.4); Hemoglobin 13.6 g/dL (14.0-18.0); Immature Granulocyte Absolute 0.04 K/mm3 (0.00-0.031); Immature Granulocyte Percent A 0.7 % (0-0.5); Lymphocytes Absolute Auto 2.17 K/mm3 (0.9-3.2); Mean Corpuscular HGB Conc 32.4 g/dl (32-36); Mean Corpuscular Hemoglobin 33.9 pg (26-34); Mean Corpuscular Volume 104.7 fl (80-100); Mean Platelet Volume 9.5 fl (7.4-10.4); Monocytes Absolute Auto 0.7 K/mm3 (0.1-0.6); Monocytes Percent Auto 11.3 % (2.6-8.5); Neutrophils Percent Auto 49.4 % (45.5-73.1); Platelet Count Result 280 k/mm3 (150-375); Red Blood Count 4.01 M/mm3 (4.6-6.20); Red Cell Distribution Width 13.3 % (11.5-14.5)
[2024-01-31 11:52] LABS: INR 0.8; Prothrombin Time 11.9 Seconds (11.1-14.7)
[2024-01-31 11:53] LABS: Partial Thromboplastin Time 29.5 Seconds (22.3-36.8)
[2024-01-31 12:01] LABS: Alanine Aminotransferase 14 U/L (6-50); Albumin Level 4.8 g/dL (3.5-5.1); Alkaline Phosphatase 77 U/L (38-126); Anion Gap 9 mmol/L (4-12); Aspartate Amino Transferase 19 U/L (17-59); Bilirubin,Total 0.7 mg/dL (0.2-1.3); Blood Urea Nitrogen 30 mg/dL (9-20); Calcium 8.7 mg/dL (8.4-10.2); Carbon Dioxide 34 mmol/L (22-30); Chloride 94 mmol/L (98-107); Estimated CRCL calculation 18 ml/min; Estimated Glomerular Filt Rate 13; Glucose 105 mg/dL (65-110); Lipase 125 U/L (23-300); Potassium 3.8 mmol/L (3.4-5.0); Sodium 137 mmol/L (137-145)
[2024-01-31 12:03] LABS: Troponin I < 0.012 ng/mL (0.000-0.034)
[2024-01-31 13:20] VITALS: O2SAT 100
[2024-01-31 13:23] VITALS: BP 99/64; PULSE 62; RESP 20; O2SAT 99
[2024-01-31 13:31] VITALS: BP 103/73; PULSE 63; RESP 16; O2SAT 99
--- NOTE | 2024-01-31 14:08 | ED.CHESTPAIN ---
HPI - Chest Pain General Chief Complaint: Chest Pain Stated Complaint: sudden chest pain radiating to back after dialysis Time Seen by Provider: 01/31/24 13:00 History of Present Illness HPI narrative: 63-year-old male present to the emergency department for evaluation of 10-15 minutes of chest pain. Patient states when he was at dialysis after having the dialysis port removed he had increased bleeding from the port. Patient states that in response to this he became diaphoretic dizzy lightheaded and had an episode of low blood pressure that lasted approximately 10-15 minutes. Patient states that during this time he was treated with additional IV fluids. Patient states the chest pain resolved. Upon arrival emergency department patient states he does feel improved denies any chest pain or shortness breath. Patient has been on dialysis for the last 4 years due to polycystic kidney disease. Patient does still make some urine. Related Data Home Medications Medication Instructions Recorded Confirmed amlodipine 5 mg tablet (Norvasc) See Rx Instructions .Route .COMPLEX 12/21/19 05/15/23 aspirin 81 mg tablet,delayed See Rx Instructions .Route .COMPLEX 12/21/19 05/15/23 release (Sheng Low Dose Aspirin) Allergies Allergy/AdvReac Type Severity Reaction Status Date / Time No Known Allergies Allergy Verified 01/31/24 13:27 Review of Systems Review of Systems: All systems reviewed & are unremarkable except as noted in HPI and below PMFSH Past Medical History Medical History Anemia Ankle fracture, left Asthma CKD (chronic kidney disease) stage 4, GFR 15-29 ml/min Colon cancer screening COPD (chronic obstructive pulmonary disease) Emphysema of lung ESRD (end stage renal disease) on dialysis GERD (gastroesophageal reflux disease) HTN (hypertension) Myocardial infarction NSTEMI NSTEMI (non-ST elevated myocardial infarction) Pneumonia Polycystic kidney disease Renal osteodystrophy Surgical History Surgical History History of bladder surgery History of nephrectomy Right S/P cardiac catheterization Family History Family History Mother PCK (polycystic kidney disease) Social History Social History Smoking packs per day: 1.5 Smoking cigarettes per day: 30.0 Years smoked: 40 Smoking pack-years: 60.00 Smoking status: Former smoker Alcohol intake: never Substance use: never Substance use type: does not use Lack of Transportation: No Lack of Food: Never True Current Housing: I Have Housing Concerned About Future Housing: No Difficulty Paying Gas/Electric Bills: No Difficulty Paying for Meds: No Currently Unemployed: No Education: High School Diploma/GED Difficulty w/ Childcare or Family Care: No Living arrangements: with family Gender identity (if verbalized by the patient): Male Sexual Orientation (if Verbalized by the Patient): Straight or Heterosexual Spiritual care concerns: No Exam Narrative: APPEARANCE: Well appearing, no pain, no distress, well-nourished. HEAD: normocephalic, atraumatic. EYES: PERRLA/EOMI, conjunctivae clear. NOSE: Normal no drainage EARS:TMS clear with good light reflex. THROAT: Pharynx clear, no exudate. NECK: Supple. No adenopathy, no masses. RESPIRATORY: Airway patent, respirations nonlabored. Clear to auscultation bilaterally, no rales, rhonchi, wheezing. CARDIOVASCULAR: Regular rate and rhythm without murmurs rubs or gallops. ABDOMINAL: Soft, nontender, nondistended, normal bowel sounds MUSCULOSKELETAL: Moves all extremities. Strength/ROM intact, No edema, No calf tenderness. NEURO: Alert. Cranial nerves II through XII intact. Grossly intact SKIN: Warm, dry. Normal Color Course Course Emergency Cour
[2024-01-31 14:48] VITALS: BP 112/68; PULSE 67; RESP 16; O2SAT 96
[2024-01-31 16:18] VITALS: BP 100/85; PULSE 67; RESP 20; O2SAT 99
== END 2024-01-31 16:37 | disposition home or self-care (01) ==
PROVIDERS: Emergency Provider Emergency Medicine; PCP Internal Medicine
DX: R55 Syncope and collapse (principal); I25.2 Old myocardial infarction; J44.9 Chronic obstructive pulmonary disease, unspecified; J43.9 Emphysema, unspecified; I12.0 Hypertensive chronic kidney disease with stage 5 chronic kidney disease or end stage renal disease; N18.6 End stage renal disease; Z99.2 Dependence on renal dialysis; N25.0 Renal osteodystrophy; K21.9 Gastro-esophageal reflux disease without esophagitis; Q61.3 Polycystic kidney, unspecified; Z87.891 Personal history of nicotine dependence; Z79.82 Long term (current) use of aspirin; Z90.5 Acquired absence of kidney
CPT/HCPCS: 36415; 71046; 80053; 83690; 84484; 85025; 85610; 85730; 93005; 99284

== ENCOUNTER 2024-08-17 10:57 | Emergency (ER) | payer MEDICARE, OTHER, SELFPAY ==
[2024-08-17] VITALS (16 sets, daily range): BP systolic 120–177; BP diastolic 74–81; PULSE 54–61; RESP 12–29; TEMP 35.7–36.4; O2SAT 95–100
--- NOTE | ~2024-08-17 | CT_ITS ---
CTA chest abdomen pelvis Ordering provider: Shivam Vogt MD History: . chest pain into back . Comparison: May 15, 2023 Technique: CT angiogram chest, abdomen and pelvis was performed following timed intravenous injection of contrast. Thin slice axial images and reformatted coronal images were obtained. Three dimensional reformatted images of the chest were also obtained using a [employer] workstation. Radiation reduction t echnique utilized.The dose-length product was 661.96 mGy-cm. FINDINGS: CHEST: --THORACIC AORTA: Mild atheromatous disease. No aneurysm, dissection or mediastinal hematoma. Ascendi ng aorta measures 3.5 cm. --GREAT VESSELS: Normal as visualized. --PULMONARY ARTERIES: No pulmonary embolus. --VISUALIZED THORACIC INLET: Normal. --MEDIASTINUM: Coronary arteries: Mild atheromatous disease. Heart/other: The heart is not enlarged. Lymph nodes: No mediastinal or hilar adenopathy. Slightly dilated esophagus with thickened wall and with air-fluid levels suggestive of reflux esophag itis. Further evaluation advised. --LUNGS: No pulmonary nodules or masses. No infiltrates or effusions. No pneumothorax. Emphysematous changes o f the lungs. --MUSCULOSKELETAL: Superficial soft tissues: The superficial soft tissues are normal. Bones: Age appropriate degenerative changes of the spine. ABDOMEN/PELVIS: --MUSCULOSKELETAL: Bones: Age appropriate degenerative changes of the spine. Superficial soft tissues: The superficial soft tissues are normal. --UPPER ABDOMINAL ORGANS: Liver: Polycystic changes are noted. Gallbladder: Distended. Spleen: Normal. Stomach/duodenum: Normal. Pancreas: Slightly prominent pancreatic duct. Possible pancreatic divisum. Adrenals: Normal. Kidneys: Status post right nephrectomy. Left polycystic kidney. --PELVIC ORGANS: The bladder shows thickened wall with underfilling. No bladder stones. --BOWEL AND MESENTERY: Colon: No evidence of diverticulitis sigmoid colon. Thickened wall of the rectum. Normal appendix. Small Bowel: Slightly dilated small bowel loops are noted which may indicate enteritis. Follow-up adv ised. No definite obstruction. Peritoneum/mesentery: No free air or free fluid. No mesenteric lymphadenopathy. --RETROPERITONEUM: No retroperitoneal lymphadenopathy. --ARTERIES: ABDOMINAL AORTA: Mild atheromatous disease. No aneurysm or dissection. RENAL ARTERIES: Slightly narrowed left renal artery. The right is not seen. CELIAC AXIS: Normal. SMA: Normal. ANTHONY: Normal. ILIAC AND VISUALIZED FEMORAL ARTERIES: Mild atherosclerotic changes. MESENTERIC ARTERIES: Normal. IMPRESSION: CHEST: 1. No evidence of dissection or pulmonary embolism. 2. No acute cardiopulmonary pathology. ABDOMEN/PELVIS: 1. Polycystic disease with multiple cysts in the liver and left kidney. 2. Status post right nephrectomy. 3. Thickened wall of the rectum suggestive of proctitis. 4. Slight dilatation of the small bowel which may indicate enteritis. 5. Constipation. Reviewed, dictated and finalized at location A.
--- NOTE | ~2024-08-17 | XR_ITS ---
XR chest 2V Ordering provider: Shivam Vogt MD History: 64 years Male with . chest pain . Comparison: January 31, 2024 FINDINGS: MEDIASTINUM: The cardiac silhouette is not enlarged. LUNGS: No infiltrates, effusions or pneumothorax. OTHER: No free air under the diaphragm. Degenerative changes of the spine. IMPRESSION: No acute cardiopulmonary pathology. Reviewed, dictated and finalized at location A.
--- NOTE | 2024-08-17 10:59 | ECG_ITS ---
Test Date: 2024-08-17 11:31:04 Measurements Intervals [place] Rate: 57 P: 57 [place]: 150 QRS: 36 QRSD: 105 T: 57 QT: 404 QTc: 395 Interpretive Statements SINUS BRADYCARDIA OTHERWISE NORMAL ECG No previous ECG available for comparison Electronically Signed On 08-17-2024 14:21:09 CDT by Donaldo Tee M.D.
--- NOTE | 2024-08-17 11:11 | PC.NURSE ---
64 year old male presents to ED for chest pain. Patient states that chest pain began about 20 min prior to arrival. Patient is currently alert and oriented x's4. Patient is able to move all extremities without difficulty. Patient is accompanied by his .
[2024-08-17] MEDS: ASPIRIN 81 MG CHEWABLE TABLET 324 MG PO (11:13)
[2024-08-17 11:38] LABS: Basophils Absolute Auto 0.1 K/mm3 (0.0-0.1); Basophils Percent Auto 0.9 % (0.2-1.2); Eosinophils Absolute Auto 0.1 K/mm3 (0-0.3); Eosinophils Percent Auto 1.9 % (0-4.4); Hematocrit 39.5 % (42.0-52.0); Hemoglobin 12.7 g/dL (14.0-18.0); Immature Granulocyte Absolute 0.05 K/mm3 (0.00-0.031); Immature Granulocyte Percent A 0.8 % (0-0.5); Lymphocytes Absolute Auto 2.01 K/mm3 (0.9-3.2); Lymphocytes Percent Auto 31.2 % (18.3-44.2); Mean Corpuscular HGB Conc 32.2 g/dl (32-36); Mean Corpuscular Hemoglobin 33.7 pg (26-34); Mean Corpuscular Volume 104.8 fl (80-100); Mean Platelet Volume 9.5 fl (7.4-10.4); Monocytes Absolute Auto 0.9 K/mm3 (0.1-0.6); Monocytes Percent Auto 13.8 % (2.6-8.5); Neutrophils Absolute Auto 3.3 K/mm3 (1.3-6.7); Neutrophils Percent Auto 51.4 % (45.5-73.1); Platelet Count Result 279 k/mm3 (150-375); Red Blood Count 3.77 M/mm3 (4.6-6.20); Red Cell Distribution Width 14.2 % (11.5-14.5); White Blood Count 6.5 K/mm3 (4.5-10.0)
--- NOTE | 2024-08-17 12:02 | ED.GENADULT ---
HPI - General Adult General Chief complaint: Chest Pain Stated complaint: chest pain Time Seen by Provider: 08/17/24 11:16 History of Present Illness HPI narrative: 64-year-old male presenting to the emergency department for evaluation for epigastric pain that he states feels similar to his prior esophageal spasms. Patient also does have a prior history of coronary disease and does have stents in place. Patient reports the current epigastric pain has been bothering him for the last 2 days. Related Data Home Medications Medication Instructions Recorded Confirmed amlodipine 5 mg tablet (Norvasc) See Rx Instructions .Route .COMPLEX 12/21/19 05/15/23 aspirin 81 mg tablet,delayed See Rx Instructions .Route .COMPLEX 12/21/19 05/15/23 release (Sheng Low Dose Aspirin) Allergies Allergy/AdvReac Type Severity Reaction Status Date / Time No Known Allergies Allergy Verified 08/17/24 10:58 Review of Systems Review of Systems: All systems reviewed & are unremarkable except as noted in HPI and below PMFSH Past Medical History Medical History Anemia Ankle fracture, left Asthma CKD (chronic kidney disease) stage 4, GFR 15-29 ml/min Colon cancer screening COPD (chronic obstructive pulmonary disease) Emphysema of lung ESRD (end stage renal disease) on dialysis GERD (gastroesophageal reflux disease) HTN (hypertension) Myocardial infarction NSTEMI NSTEMI (non-ST elevated myocardial infarction) Pneumonia Polycystic kidney disease Renal osteodystrophy Surgical History Surgical History History of bladder surgery History of nephrectomy Right S/P cardiac catheterization Family History Family History Mother PCK (polycystic kidney disease) Social History Social History Smoking packs per day: 1.5 Smoking cigarettes per day: 30.0 Years smoked: 40 Smoking pack-years: 60.00 Smoking status: Former smoker Alcohol intake: never Substance use: never Substance use type: does not use Lack of Transportation: No Lack of Food: Never True Current Housing: I Have Housing Concerned About Future Housing: No Difficulty Paying Gas/Electric Bills: No Difficulty Paying for Meds: No Currently Unemployed: No Education: High School Diploma/GED Difficulty w/ Childcare or Family Care: No Living arrangements: with family Gender identity (if verbalized by the patient): Male Sexual Orientation (if Verbalized by the Patient): Straight or Heterosexual Spiritual care concerns: No Exam Narrative: APPEARANCE: Well appearing, no pain, no distress, well-nourished. HEAD: normocephalic, atraumatic. EYES: PERRLA/EOMI, conjunctivae clear. NOSE: Normal no drainage EARS:TMS clear with good light reflex. THROAT: Pharynx clear, no exudate. NECK: Supple. No adenopathy, no masses. RESPIRATORY: Airway patent, respirations nonlabored. Clear to auscultation bilaterally, no rales, rhonchi, wheezing. CARDIOVASCULAR: Regular rate and rhythm without murmurs rubs or gallops. ABDOMINAL: Soft, nontender, nondistended, normal bowel sounds MUSCULOSKELETAL: Moves all extremities. Strength/ROM intact, No edema, No calf tenderness. NEURO: Alert. Cranial nerves II through XII intact. Grossly intact SKIN: Warm, dry. Normal Color Course Vital Signs Vital signs: Vital Signs Temperature 96.3 F L 08/17/24 11:02 Pulse Rate 60 08/17/24 11:02 Respiratory Rate 16 08/17/24 11:02 Blood Pressure 177/81 H 08/17/24 11:02 Pulse Oximetry 100 08/17/24 11:02 Oxygen Delivery Room Air 08/17/24 11:02 Temperature 97.6 F 08/17/24 16:10 Pulse Rate 57 L 08/17/24 16:10 Respiratory Rate 16 08/17/24 16:10 Blood Pressure 137/74 08/17/24 16:10 Pulse Oximetry 98 08/17/24 16:10 Oxygen Delivery Room Air 08/17/24 11:06 Medical Decision Making [facility] Narrative Medical decision making narrative: [age] old male present to the emergency department for evaluation for epigastric pain. Patient is afebrile with no leukocytosis and a stable hemoglobin of 12.7. Patient's INR is 1.0. Patient did have an elevated creatinine but he is on dialysis. Patient does not make urine. Patient had negative serial troponins. CTA was ordered due to patient complaining pain radiate from his chest to his back and was negative for aneurysm. Positive for constipation possible proctitis. Patient states he does have outpatient follow-up scheduled was physicians. Differential Diagnosis Differential Diagnosis: MS, esophagitis, gastritis, colitis, diverticulitis Vital Signs Vital Signs: Vital Signs Temperature 96.3 F L 08/17/24 11:02 Pulse Rate 60 08/17/24 11:02 Respiratory Rate 16 08/17/24 11:02 Blood Pressure 177/81 H 08/17/24 11:02 Pulse Oximetry 100 08/17/24 11:02 Oxygen Delivery Room Air 08/17/24 11:02 Temperature 97.6 F 08/17/24 16:10 Pulse Rate 57 L 08/17/24 16:10 Respiratory Rate 16 08/17/24 16:10 Blood Pressure 137/74 08/17/24 16:10 Pulse Oximetry 98 08/17/24 16:10 Oxygen Delivery Room Air 08/17/24 11:06 Lab Data Lab results reviewed: Yes I reviewed the patient's lab results. 08/17/24 11:20 08/17/24 14:35 Labs: Lab Results 08/17/24 08/17/24 08/17/24 Range/Units 11:20 12:56 14:35 WBC 6.5 (4.5-10.0) K/mm3 RBC 3.77 L (4.6-6.20) M/mm3 Hgb 12.7 L (14.0-18.0) g/dL Hct 39.5 L (42.0-52.0) % MCV 104.8 H (80-100) fl MCH 33.7 (26-34) pg MCHC 32.2 (32-36) g/dl RDW 14.2 (11.5-14.5) % Plt Count 279 (150-375) k/mm3 MPV 9.5 (7.4-10.4) fl Immature Gran % (Auto) 0.8 H (0-0.5) % Neut % (Auto) 51.4 (45.5-73.1) % Lymph % (Auto) 31.2 (18.3-44.2) % Nobles % (Auto) 13.8 H (2.6-8.5) % Eos % (Auto) 1.9 (0-4.4) % Baso % (Auto) 0.9 (0.2-1.2) % Lymph # (Auto) 2.01 (0.9-3.2) K/mm3 Nobles # (Auto) 0.9 H (0.1-0.6) K/mm3 Eos # (Auto) 0.1 (0-0.3) K/mm3 Baso # (Auto) 0.1 (0.0-0.1) K/mm3 Abs Immat Gran (auto) 0.05 H (0.00-0.031) K/mm3 Absolute Neuts (auto) 3.3 (1.3-6.7) K/mm3 Absolute Nucleated RBC 0.000 (0.0-0.012) K/mm3 Nucleated RBC % 0.0 (0.0-0.2) % PT 13.4 (11.1-14.7) Seconds INR 1.0 APTT 27.8 (22.3-36.8) Seconds Sodium Cancelled 138 Potassium Cancelled 4.9 Chloride Cancelled 96 L Carbon Dioxide Cancelled 33 H Anion Gap Cancelled 9 BUN Cancelled 40 H D Creatinine Cancelled 6.80 H Estim Creat Clear Calc Cancelled 11 Estimated GFR Cancelled 8 L Glucose Cancelled 77 Calcium Cancelled 8.3 L Total Bilirubin Cancelled 1.5 H AST Cancelled 37 ALT Cancelled 18 Alkaline Phosphatase Cancelled 63 Troponin I 0.023 (0.000-0.034) ng/mL Total Protein Cancelled 7.0 Albumin Cancelled 4.5 Lipase Cancelled 151 Imaging Data Radiologist's impression: Impressions Chest X-Ray 08/17/24 11:57 IMPRESSION: No acute cardiopulmonary pathology. Chest/Abdomen/Pelvis CTA 08/17/24 15:13 IMPRESSION: CHEST: 1. No evidence of dissection or pulmonary embolism. 2. No acute cardiopulmonary pathology. ABDOMEN/PELVIS: 1. Polycystic disease with multiple cysts in the liver and left kidney. 2. Status post right nephrectomy. 3. Thickened wall of the rectum suggestive of proctitis. 4. Slight dilatation of the small bowel which may indicate enteritis. 5. Constipation. Discharge Plan Discharge Clinical Impression: Atypical chest pain Patient Disposition: Home, Self-Care Condition: Stable Instructions: Antibiotic Form Additional Instructions: Taking medication for your esophagitis/gastritis. Maalox as needed for intermittent epigastric pain. Have close follow-up with your primary care physician for additional outpatient cardiac testing. If you have any worsening symptoms or if you have any questions or concerns then please call or return to the emergency department. Prescriptions: New hydrocodone-acetaminophen 5-325 mg tablet 1 tablet PO Q12H PRN (Reason: pain) Qty: 10 0RF No Action pantoprazole 40 mg tablet,delayed release (DR/EC) 40 mg PO BID PRN (Reason: heartburn/esophagitis) Qty: 20 0RF metoprolol tartrate 25 mg tablet 25 mg PO BID Qty: 30 0RF amlodipine [Norvasc] 5 mg tablet See Rx Instructions .ROUTE .COMPLEX Rx Instructions: daily aspirin [Sheng Low Dose Aspirin] 81 mg Tablet,Delayed Release (Dr/Ec) See Rx Instructions .ROUTE .COMPLEX Rx Instructions: daily isosorbide mononitrate 30 mg Tablet Extended Release 24 Hr 30 mg PO QAM Qty: 30 2RF famotidine 40 mg tablet 40 mg PO DAILY Qty: 30 11RF bumetanide 1 mg tablet 1 mg PO DAILY Qty: 90 3RF Follow-up/Referrals: Gerardo Shah MD [Primary Care Provider] -
[2024-08-17] MEDS: FAMOTIDINE 20 MG/2 ML VIAL IV PUSH (12:16)
[2024-08-17] MEDS: NITROGLYCERIN SL 0.4 MG TABLET SUBLINGUAL (12:16)
[2024-08-17] MEDS: PANTOPRAZOLE SODIUM IV 40 MG VIAL IV PUSH (12:16)
--- NOTE | 2024-08-17 12:20 | PC.NURSE ---
RN administered 1st dose of Nitro at this time.
--- NOTE | 2024-08-17 12:21 | PC.NURSE ---
Patient states he is feeling better. Patient had a couple drinks of water. Patient rates pain at a 6 at this time.
--- NOTE | 2024-08-17 12:25 | PC.NURSE ---
Patient states chest pain is resolving. Now states pain is a 5. RN held Nitro.
[2024-08-17 13:12] LABS: Partial Thromboplastin Time 27.8 Seconds (22.3-36.8); Prothrombin Time 13.4 Seconds (11.1-14.7)
--- NOTE | 2024-08-17 13:42 | PC.NURSE ---
Patient reports chest pain as increasing to a 6 at this time. MD made aware. New orders for GI cocktail at this time.
[2024-08-17] MEDS: BELLADONNA ALK/PHENOB ELIX 10 ML, MAG HYDROX/ALUMINUM HYD/SIMETH 30 ML, LIDOCAINE HCL 2... PO (13:46)
--- NOTE | 2024-08-17 14:23 | PC.NURSE ---
Patient is stating that GI cocktail will not go down. RN asked MD for medication for pain. new orders given.
[2024-08-17] MEDS: MORPHINE SULFATE (*CRX) 4 MG/ML INJ IV PUSH (14:27)
[2024-08-17 15:01] LABS: Alanine Aminotransferase 18 U/L (6-50); Albumin Level 4.5 g/dL (3.5-5.1); Alkaline Phosphatase 63 U/L (38-126); Anion Gap 9 mmol/L (4-12); Aspartate Amino Transferase 37 U/L (17-59); Bilirubin,Total 1.5 mg/dL (0.2-1.3); Blood Urea Nitrogen 40 mg/dL (9-20); Calcium 8.3 mg/dL (8.4-10.2); Carbon Dioxide 33 mmol/L (22-30); Chloride 96 mmol/L (98-107); Estimated CRCL calculation 11 ml/min; Estimated Glomerular Filt Rate 8; Glucose 77 mg/dL (65-110); Lipase 151 U/L (23-300); Potassium 4.9 mmol/L (3.4-5.0); Sodium 138 mmol/L (137-145)
[2024-08-17 15:08] LABS: Troponin I 0.023 ng/mL (0.000-0.034)
== END 2024-08-17 16:27 | disposition home or self-care (01) ==
PROVIDERS: Emergency Provider Emergency Medicine; PCP Internal Medicine
DX: R07.89 Other chest pain (principal); N18.6 End stage renal disease; I12.0 Hypertensive chronic kidney disease with stage 5 chronic kidney disease or end stage renal disease; N25.0 Renal osteodystrophy; I25.10 Atherosclerotic heart disease of native coronary artery without angina pectoris; I25.2 Old myocardial infarction; J45.909 Unspecified asthma, uncomplicated; J43.9 Emphysema, unspecified; D64.9 Anemia, unspecified; K21.9 Gastro-esophageal reflux disease without esophagitis; Q61.3 Polycystic kidney, unspecified; Z95.5 Presence of coronary angioplasty implant and graft; Z87.01 Personal history of pneumonia (recurrent); Z87.891 Personal history of nicotine dependence; Z90.5 Acquired absence of kidney; Z79.82 Long term (current) use of aspirin; Z79.899 Other long term (current) drug therapy; R00.1 Bradycardia, unspecified; R93.3 Abnormal findings on diagnostic imaging of other parts of digestive tract; K62.89 Other specified diseases of anus and rectum; K59.00 Constipation, unspecified; K76.89 Other specified diseases of liver
CPT/HCPCS: 36415; 71046; 71275; 74174; 80053; 83690; 84484; 85025; 85610; 85730; 93005; 96374; 96375; 99284; A9270; J2270; J2470; Q9967

== ENCOUNTER 2024-10-11 13:41 | Emergency (ER) | payer MEDICARE, OTHER, SELFPAY ==
--- NOTE | ~2024-10-11 | CT_ITS ---
EXAMINATION: CT abdomen pelvis w con DATE: 10/11/2024 16:31 INDICATION: epigastric and right upper quadrant pain TECHNIQUE: Computed tomography (CT) of the abdomen and pelvis was performed with 100 mL Omnipaque-350 intravenous contrast. Automated exposure control and iterative reconstruction technique were employe d. The dose-length product was 458.45 mGy-cm. COMPARISON: None. FINDINGS: Lower thorax: Unremarkable Liver: Enlarged. Innumerable hepatic cysts. Biliary/Gallbladder: Mild gallbladder distention, without stones or inflammatory change. No bile duct dilation. Pancreas: No mass or duct dilation. Spleen: Normal. Adrenals:No mass. Kidneys: Status post right nephrectomy. Innumerable left renal cysts. GI tract: Mild distal esophageal and gastric wall edema. Persistent rectal wall thickening. No small or large bowel dilation. Normal appendix. Diverticulosis without diverticulitis. Mesentery/Peritoneum: No ascites, mass, or free air. Retroperitoneum: No mass. Atherosclerotic abdominal aortic and/or arterial calcifications. Pelvis: Partially distended urinary bladder with wall thickening.. Soft Tissues: Soft tissues and body wall unremarkable. Bones: No acute osseous finding. IMPRESSION: Mild esophagitis/gastritis. Mild gallbladder distention, without stones or inflammatory change. This may be secondary to fasting. Correlate with biliary labs and symptoms of right upper quadrant pain. Urinary bladder wall thickening secondary to incomplete distention versus cystitis. Correlate with ur inalysis Persistent rectal wall thickening may indicate presence of proctitis. Reviewed, dictated and finalized at location K. NESS OFFICE MANAGER IMPRESSION: Mild esophagitis/gastritis. Mild gallbladder distention, without stones or inflammatory change. This may be secondary to fasting. Correlate with biliary labs and symptoms of right upper quadrant pain. Urinary bladder wall thickening secondary to incomplete distention versus cysti tis. Correlate with urinalysis Persistent rectal wall thickening may indicate presence of proctitis.
--- NOTE | ~2024-10-11 | XR_ITS ---
EXAMINATION: XR chest 1V portable Exam Date/Time: 10/11/2024 16:15 COMMISSIONED FIRE OFFICER HISTORY: epigastric pain Comparison: 08/17/2024. RESULT: Lines, tubes, and devices: None. Lungs and pleura: Clear. Cardiomediastinal silhouette: Stable. Other: No acute osseous or upper abdominal finding. IMPRESSION: No acute cardiopulmonary process. Reviewed, dictated and finalized at location K. ISSIONED FIRE OFFICER
[2024-10-11 13:42] VITALS: BP 154/77; PULSE 99; RESP 18; TEMP 37; O2SAT 98
--- NOTE | 2024-10-11 13:51 | ED_ITS ---
HPI - Abdominal Pain General Chief Complaint: Abdominal Pain Stated Complaint: abdominal pain Time Seen by Provider: 10/11/24 13:50 Source: patient Mode of arrival: ambulatory Limitations: no limitations History of Present Illness HPI narrative: 64 years old white male came to the ED from home by private car complaining epigastric pain started yesterday morning, steady, denying aggravating or relieving factors, denying radiation of pain. Last dialysis was 3 days ago. Patient denies any fever, chills, nausea, vomiting, patient reports sneezing and coughing up phlegm in the last 48 hours. Last Tylenol take it hour prior to arrival Related Data Home Medications ?Medication ?Instructions ?Recorded ?Confirmed ?Last Taken ?Type amlodipine 5 mg tablet (Norvasc) See Rx Instructions .Route .COMPLEX 12/21/19 10/11/24 05/13/23 History aspirin 81 mg tablet,delayed See Rx Instructions .Route .COMPLEX 12/21/19 10/11/24 05/13/23 History release (Sheng Low Dose Aspirin) Allergies Allergy/AdvReac Type Severity Reaction Status Date / Time No Known Allergies Allergy Verified 10/11/24 13:48 Review of Systems 2 Review of Systems: All systems reviewed & are unremarkable except as noted in HPI and below PMFSH Past Medical History Medical History NSTEMI (non-ST elevated myocardial infarction) Renal osteodystrophy ESRD (end stage renal disease) on dialysis CKD (chronic kidney disease) stage 4, GFR 15-29 ml/min Colon cancer screening Anemia Ankle fracture, left Polycystic kidney disease GERD (gastroesophageal reflux disease) Pneumonia Asthma Emphysema of lung COPD (chronic obstructive pulmonary disease) HTN (hypertension) Myocardial infarction NSTEMI Surgical History Surgical History History of nephrectomy Right History of bladder surgery S/P cardiac catheterization Family History Family History Mother PCK (polycystic kidney disease) Social History Social History Smoking packs per day: 1.5 Smoking cigarettes per day: 30.0 Years smoked: 40 Smoking pack-years: 60.00 Smoking status: Former smoker Alcohol intake: never Substance use: never Substance use type: does not use Lack of Transportation: No Lack of Food: Never True Current Housing: I Have Housing Concerned About Future Housing: No Difficulty Paying Gas/Electric Bills: No Difficulty Paying for Meds: No Currently Unemployed: No Education: High School Diploma/GED Difficulty w/ Childcare or Family Care: No Living arrangements: with family Gender identity (if verbalized by the patient): Male Sexual Orientation (if Verbalized by the Patient): Straight or Heterosexual Spiritual care concerns: No Exam 2 Narrative: General appearance: Well-developed, well-nourished Skin: Normal color Head: Normocephalic, nontraumatic Eyes: Clear conjunctiva ENT: Oropharynx normal, ears normal, nose normal Neck: Supple, nontender Chest and respiratory: Airway patent, no respiratory distress, no accessory muscle use Heart: Regular rate/rhythm Abdomen: Soft, moderate tenderness epigastric and right upper quadrant, no guarding or rebound no organomegaly, quiet bowel sounds Vascular: Normal peripheral pulses, normal capillary refill. 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 tested, no gross motor deficit Course Vital Signs Vital signs: Vital Signs Temperature 37.0 C 10/11/24 13:42 Pulse Rate 99 10/11/24 13:42 Respiratory Rate 18 10/11/24 13:42 Blood Pressure 154/77 H 10/11/24 13:42 Pulse Oximetry 98 10/11/24 13:42 Oxygen Delivery Room Air 10/11/24 13:42 Temperature 37.4 C 10/11/24 16:55 Pulse Rate 98 10/11/24 16:55 Respiratory Rate 18 10/11/24 16:55 Blood Pressure 112/80 10/11/24 16:55 Pulse Oximetry 97 10/11/24 16:55 Oxygen Delivery Room Air 10/11/24 16:55 MDM - Abdominal Pain MDM Narrative Medical decision making narrative: patient came to the ED with upper abdominal pain started yesterday, Vital signs are stable Physical examination consistent with tenderness epigastric and right upper quadrant Differential diagnosis include cholecystitis, appendicitis, constipation, diverticulitis, pancreatitis, viral infection Blood workup today includes CBC, CMP, lipase showed hemoglobin of 10.9 potassium 6.3, BNP 73, creatinine 9.2, glucose 106 C-reactive protein 20.5 Urinalysis showed no evidence of infection CT abdomen and pelvis with IV contrast showed Mild esophagitis/gastritis. Mild gallbladder distention, without stones or inflammatory change. This may be secondary to fasting. Correlate with biliary labs and symptoms of right upper quadrant pain. Urinary bladder wall thickening secondary to incomplete distention versus cystitis. Correlate with urinalysis Persistent rectal wall thickening may indicate presence of proctitis. Chest x-ray showed no acute abnormalities Patient is telling me that he is taking famotidine for acid reflux, does not have pantoprazole anymore he used to take it as needed. Pantoprazole 40 mg twice a day was prescribed to the patient prior to discharge. Esophagitis, gastritis is my concern. The pt was discharged to home.the pt,s condition upon discharge was fair,education was provided to the pt in reference to the final impression,discharge study results,treatment,prognosis and need for follow up . Differential Diagnosis Differential diagnosis: Likely abdominal pain, acute appendicitis, constipation, diverticulitis, gastroenteritis and pancreatitis Medical Records Attestation: I reviewed the patient's medical records. Lab Data Attestation: I reviewed the patient's lab results. 10/11/24 14:50 10/11/24 14:03 Labs: Lab Results 10/11/24 10/11/24 10/11/24 Range/Units 14:03 14:04 14:50 WBC 10.6 (4.8-10.8) K/mm3 RBC 3.25 L (4.70-6.10) M/mm3 Hgb 10.9 L (14.0-18.0) g/dL Hct 33.2 L (40.0-54.0) % MCV 102.2 H (78.0-102.0) fL MCH 33.5 H (27.0-31.0) pg MCHC 32.8 (32-36) g/dL RDW 13.8 (11.6-14.4) % Plt Count 181 (150-420) K/mm3 MPV 10.3 (8.7-11.0) fl Immature Gran % (Auto) Not Reportable Neut % (Auto) Not Reportable Lymph % (Auto) Not Reportable [place] % (Auto) Not Reportable Eos % (Auto) Not Reportable Baso % (Auto) Not Reportable Lymph # (Auto) Not Reportable [place] # (Auto) Not Reportable Eos # (Auto) Not Reportable Baso # (Auto) Not Reportable Abs Immat Gran (auto) Not Reportable Absolute Neuts (auto) Not Reportable Absolute Nucleated RBC Not Reportable Total Counted 100 Neutrophils % (Manual) 69 (46-73) % Band Neutrophils % 0 (0-6) % Lymphocytes % (Manual) 3 L (18-44) % Monocytes % (Manual) 27 H (3-9) % Eosinophils % (Manual) 1 (1-6) % Nucleated RBC % Not Reportable Abs Neuts (Manual) 7.31 H (1.3-6.7) K/mm3 Abs Lymphs (Manual) 0.31 L (1.1-4.5) K/mm3 Abs Monocytes (Manual) 2.86 H (0.1-0.90) K/mm3 Absolute Eos (Manual) 0.10 (0.02-0.50) K/mm3 Platelet Estimate Adequate (Adequate) Schistocytes None seen Sodium 136 (136-145) mmol/L Potassium 6.3 H (3.5-5.1) mmol/L Chloride 97 L (98-108) mmol/L Carbon Dioxide 25 (21-32) mmol/L Anion Gap 14 H (4-12) mmol/L BUN 73 H (7-18) mg/dL Creatinine 9.21 H* (0.70-1.30) mg/dL Estim Creat Clear Calc 9 ml/min Estimated GFR 6 L (59 - ) Glucose 106 H (70-99) mg/dL Calculated Osmolality 303 H (285-295) mOsm/kg Calcium 8.8 (8.5-10.1) mg/dL Total Bilirubin 0.7 (0.00-1.00) mg/dL AST 19 (15-37) U/L ALT 19 (16-63) U/L Alkaline Phosphatase 76 (46-116) U/L C-Reactive Protein 20.5 H (0.0-0.9) mg/dL Total Protein 6.7 (6.4-8.2) g/dL Albumin 3.0 L (3.4-5.0) g/dL Lipase 16 (16-77) U/L Urine Color Light yellow (Yellow) Urine Appearance Clear (Clear) Urine pH 8.0 (5.0-8.0) Ur Specific [place] 1.015 (1.010-1.020) Urine Protein 2+ H (Negative) Urine Glucose (UA) Trace H (Negative) Urine Ketones Negative (Negative) Ur Blood (Man) Negative (Negative) Urine Nitrate Negative (Negative) Urine Bilirubin Negative (Negative) Urine Urobilinogen 0.2 (0.2-1.0) mg/dL Leukocyte Esterase Rfl Negative (Negative) RAFAEL/UL Ur Squamous Epith Cells Occasional (Few) /hpf Influenza A (RT-PCR) Negative (Negative) Influenza B (RT-PCR) Negative (Negative) RSV (RT-PCR) Negative (Negative) SARS-CoV-2 RNA (RT-PCR) Negative (Negative) Imaging Data Radiologist's impression: ITS Impressions Chest X-Ray 10/11/24 16:41 IMPRESSION: No acute cardiopulmonary process. Abdomen/Pelvis CT 10/11/24 16:42 IMPRESSION: Mild esophagitis/gastritis. Mild gallbladder distention, without stones or inflammatory change. This may be secondary to fasting. Correlate with biliary labs and symptoms of right upper quadrant pain. Urinary bladder wall thickening secondary to incomplete distention versus cystitis. Correlate with urinalysis Persistent rectal wall thickening may indicate presence of proctitis. Critical Care Time Critical Care Time Critical Care Time: Yes Total Critical Care Time: 30 Discharge Plan Discharge Clinical Impression: Acute epigastric pain, Hyperkalemia Patient Disposition: Home, Self-Care Condition: Stable Instructions: Hyperkalemia (ED), Epigastric Pain (ED) Additional Instructions: Return if symptoms are worsening , call your family physician for appointment, take Tylenol as as needed for aches and pain, continue home medications. Patient Language: Thai Prescriptions: New pantoprazole [Protonix] 40 mg tablet,delayed release (DR/EC) 40 mg PO BID 28 Days Qty: 60 0RF No Action pantoprazole 40 mg tablet,delayed release (DR/EC) 40 mg PO BID PRN (Reason: heartburn/esophagitis) Qty: 20 0RF metoprolol tartrate 25 mg tablet 25 mg PO BID Qty: 30 0RF amlodipine [Norvasc] 5 mg tablet See Rx Instructions .ROUTE .COMPLEX Rx Instructions: daily aspirin [Sheng Low Dose Aspirin] 81 mg Tablet,Delayed Release (Dr/Ec) See Rx Instructions .ROUTE .COMPLEX Rx Instructions: daily isosorbide mononitrate 30 mg Tablet Extended Release 24 Hr 30 mg PO QAM Qty: 30 2RF hydrocodone-acetaminophen 5-325 mg tablet 1 tablet PO Q12H PRN (Reason: pain) Qty: 10 0RF famotidine 40 mg tablet 40 mg PO DAILY Qty: 30 11RF bumetanide 1 mg tablet 1 mg PO DAILY Qty: 90 3RF Follow-up/Referrals: UNKNOWN,DOCTOR [Non-Staff] -
--- NOTE | 2024-10-11 14:03 | ECG_ITS ---
Test Date: 2024-10-11 14:19:33 Measurements Intervals [place] Rate: 92 P: 82 SD: 142 QRS: 59 QRSD: 98 T: 70 QT: 311 QTc: 385 Interpretive Statements SINUS RHYTHM Compared to ECG 08/17/2024 11:31:04 Sinus bradycardia no longer present Electronically Signed On 10-12-2024 12:00:57 APPLICATIONS COORDINATOR by Ed Gaffney M.D.
--- NOTE | 2024-10-11 14:34 | PC.NURSE ---
covid swab sent to lab
[2024-10-11] MEDS: SODIUM CHLORIDE 0.9% IV 1,000 ML 125 ML IV CONT (14:53)
[2024-10-11 15:05] LABS: Hematocrit 33.2 % (40.0-54.0); Hemoglobin 10.9 g/dL (14.0-18.0); Mean Corpuscular HGB Conc 32.8 g/dL (32-36); Mean Corpuscular Hemoglobin 33.5 pg (27.0-31.0); Mean Corpuscular Volume 102.2 fL (78.0-102.0); Mean Platelet Volume 10.3 fl (8.7-11.0); Platelet Count Result 181 K/mm3 (150-420); Red Blood Count 3.25 M/mm3 (4.70-6.10); Red Cell Distribution Width 13.8 % (11.6-14.4); White Blood Count 10.6 K/mm3 (4.8-10.8)
[2024-10-11 15:30] VITALS: BP 142/88; PULSE 85; RESP 16; O2SAT 98
[2024-10-11 15:33] LABS: Alanine Aminotransferase 19 U/L (16-63); Alkaline Phosphatase 76 U/L (46-116); Anion Gap 14 mmol/L (4-12); Aspartate Amino Transferase 19 U/L (15-37); Bilirubin,Total 0.7 mg/dL (0.00-1.00); Blood Urea Nitrogen 73 mg/dL (7-18); Calcium 8.8 mg/dL (8.5-10.1); Carbon Dioxide 25 mmol/L (21-32); Chloride 97 mmol/L (98-108); Estimated CRCL calculation 9 ml/min; Estimated Glomerular Filt Rate 6; Glucose 106 mg/dL (70-99); Lipase 16 U/L (16-77); Osmolality Calculated 303 mOsm/kg (285-295); Potassium 6.3 mmol/L (3.5-5.1); Sodium 136 mmol/L (136-145); Total Protein 6.7 g/dL (6.4-8.2)
[2024-10-11 15:49] LABS: CRP 20.5 mg/dL (0.0-0.9)
[2024-10-11 16:09] LABS: Add Urine Microscopic? YES; Appearance Urine Clear (Clear); Bilirubin Urine Negative (Negative); Blood Urine Negative (Negative); Color Urine Light Yellow (Yellow); Glucose Urine UA Trace (Negative); Ketones Urine Negative (Negative); Leukocyte Esterase Ur Negative LEU/UL (Negative); Nitrate Urine Negative (Negative); Protein Urine 2+ (Negative); Specific Grav Ur 1.015 (1.010-1.020); Urobilinogen Urine 0.2 mg/dL (0.2-1.0)
[2024-10-11 16:15] LABS: Squamous Epithelial Cell Urine Occasional /hpf (Few)
[2024-10-11 16:19] LABS: Influenza A QL RT-PCR Negative (Negative); Influenza B QL RT-PCR Negative (Negative); RSV RNA, RT-PCR Negative (Negative); SARS-CoV-2 RNA PCR Negative (Negative)
[2024-10-11 16:26] LABS: Band Neutrophils Percent 0 % (0-6); Eosinophils Percent Manual 1 % (1-6); Lymphocytes Absolute Manual 0.31 K/mm3 (1.1-4.5); Lymphocytes Percent Manual 3 % (18-44); Monocytes Absolute Manual 2.86 K/mm3 (0.1-0.90); Monocytes Percent Manual 27 % (3-9); Neutrophils Absolute Manual 7.31 K/mm3 (1.3-6.7); Neutrophils Percent Manual 69 % (46-73); Total Cells Counted 100
[2024-10-11 16:27] LABS: Platelet Estimate Adequate (Adequate); Schistocytes None Seen
[2024-10-11 16:55] VITALS: BP 112/80; PULSE 98; RESP 18; TEMP 37.4; O2SAT 97
[2024-10-11] MEDS: INSULIN HUMAN REGULAR (*BKC) 1,000 UNITS/10 ML VIAL 10 UNITS IV PUSH (17:34)
[2024-10-11] MEDS: CALCIUM CHLORIDE 1,000 MG/10 ML SYRINGE 1000 MG IV PUSH (17:36)
[2024-10-11] MEDS: DEXTROSE 50% 25 GM/50 ML SYRINGE IV PUSH (17:40)
[2024-10-11] MEDS: SODIUM BICARBONATE 8.4% 50 MEQ/50 ML SYRINGE IV PUSH (17:48)
[2024-10-11] MEDS: SODIUM POLYSTYRENE SULFONONATE 15 GM/60 ML BTL 30 GM PO (17:55)
[2024-10-11 18:03] VITALS: BP 126/71; PULSE 77; RESP 16; TEMP 36.8; O2SAT 97
[2024-10-13 00:07] LABS: Glucose Point of Care 115 mg/dl (65-105)
--- NOTE | 2024-10-13 12:46 | PC.NURSE ---
PRELIMINARY BLOOD CULUTRE; GRAM NEGATIVE BACILLI ISOLATED, CONTINUE TO MONITOR FOR FINAL C&S
--- NOTE | 2024-10-14 12:08 | PC.NURSE ---
PRELIMINARY BLOOD CULTURE RESULTS X1: ISOLATE 1: ESCHERICHIA COLI FROM AEROBIC BOTTLE ONLY; NO GROWTH TO DATE IN ANAEROBIC BOTTLE
--- NOTE | 2024-10-15 14:34 | PC.NURSE ---
preliminary blood cultures x2 reviewed. e coli isolated in aerobic culture only. awaiting final report
--- OUTSIDE RECORDS SUMMARY | 2024-10-16 06:34 | XMS_ITS | Clinical Summary ---
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 Gender Identity Not on file Sexual Orientation Not on file Plan of Treatment Health Maintenance Due Date Last Done Comments Hepatitis C Virus (HCV) Screening 1960 TdaP Immunization 1960 Colonoscopy 02/20/2005 Colorectal Cancer Screening 02/20/2005 Cologuard 02/20/2010 Immunochemical Fecal Occult Blood 02/20/2010 Zoster Immunization (1 of 2) 02/20/2010 PSA Discussion 02/20/2015 SARS-COV-2 Immunization ( season) 2023 Influenza Immunization (Seas on Ended) 2024 Hepatitis B Immunization Aged Out No longer eligible based on patient's age to complete this topic Meningococcal Immunization (ACWY) Aged Out No longer eligible based on patient's age to complete this topic Pneumococcal Immunization Combined Aged Out No longer eligible based on patient's age to complete this topic Rotavirus Immunization Aged Out No lo nger eligible based on patient's age to complete this topic Insurance [facility] Care Teams Combat Systems Engineer Relationship Specialty Start Date End Date Gerardo Shah MD [address] [place] [address] PCP - General Internal Medicine 11/05/18 Stan Mendez DO [address] [place] [address] Gastroenterology 11/05/18
--- OUTSIDE RECORDS SUMMARY | 2024-10-16 06:35 | XMS_ITS | Encounter Summary ---
Author Organization [facility] Address [address] [place] [address] Care Team Providers Care Director Chemistry Name Role Phone Gerardo Shah MD Primary Care Provider [phone] Suzette Strickland MD Unavailable [phone] Rita Tapia RN Unavailable [phone] Encounter Details Date Type Department Care Team (Late st Contact Info) Description 03/18/2024 1:30 PM CDT Social Work [facility] [address] [place] [address], [address] Floor, [place] [address] Bhavik Calderon MSW Social History Tobacco Use Types Packs/Day Years Used Date Smoking Tobacco: Former Cigarettes 1.5 40 0 04/11/1978 - 2017 Smokeless Tobacco: Never Alcohol Use Standard Drinks/Week Comments Yes 1 (1 standard drink = 0.6 oz pur e alcohol) OCC Sex and Gender Information Value Date Recorded Sex Assigned at Not on file 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 Medical Status Patient initially listed for transplant on 08/03/2020, and his current status is active. Pt starteddialysis (CHD) in 10/2020. He currently attends dialysis at [facility] in [place], [place] on M, W, F for 3 1/2 hours. Aside from some bleeding, pt states dialysis is going well. Patient remains compliant with dialysis, and reports no concerns with dialysis compliance or medication management at this ti ne. Patient remains independent with ADLs, does not use any assistive equipment at home, and drives. AD/POA Has Court-Appointed Guardian? No Has AD/POA on file?No Has Healthcare Power of Clinical Research Assistant on file? No Pt states he has a blank copy of an AD/DPOA and does not need assistance completing at this time. Pt to complete AD/DPOA at own discretion. Living Arrangements / Social Support Current address confirmed [place] [address] [place] [address]. Patient currently lives with hiswife, Blanquita and his mother in law, Yuridia (89yo). Patient's social support system consists of his wifeand his two sisters (Meghann and Nicko). Patient's , Blanquita (#[phone]) will be primary caregiverpost transplant, she has access to FMLA, and Meghann (sister, #[phone]) will be provide additional support as needed. Patient's living situation and social support remains adequate to support him post-transplant. Employment / Income / Insurance Patient is disabled. His household income consists of his SSDI and his 's wages. Patient reports his financial situation to be tight but stable, and confirms no issues meeting his basic needs at this time. Additioanlly, pts sister has provided financial support in the past when needed. Patient's insurance coverage includes Medicare A&B and UMR ([facility]) through his 's employer, and he uses [facility] and [facility]. Pt is receiving [place] assistance with his insurance premiums. SW reviewed [place] eligibility for transplant patients and notified pt that assistance will terminate and pt will be financial responsible for premium payments. Psychosocial Factors Unknown or Not Assessed No Concerns Reported Assistance in Place Intervention Needed or In Process Transportation X Income-Financial X Employment / Vocation X Insurance / Medication Access X Social Support X Living Environment / Lodging / Housing X Comprehension of Diagnosis X Alcohol / Substance Abuse X Tobacco Usage X Mental Health / Coping X Mental Health/Coping Pt does not have a significant mental health hx and has not participated in mental health treatment(therapy, psychiatric medications, etc.) He describes having some feelings of anxiety and frustration regarding the transplant process, as he has heard stories about hardships from pt's at dialysis. He additionally describes how hard it was watching his mother go through this process as well. SW provides supportive counseling and validates pt's concerns. Pt is intentional about staying active andcontinues to walk 5 miles every day after dialysis, which helps him to cope. He denies any significant changes in his mood, anxiety, SI/HI, or hx of SA. Substance Use Tobacco: Pt has a 40 year smoking hx, smoking 1.5ppd. He quit smoking after he had a heart attack 5years ago and has maintained abstinence. Alcohol: Pt has a hx of social alcohol use. He describes drinking less frequent d/t fluid restrictions. He now drinks roughly 1 beer per year. He denies a hx or presence of excessive/uncontrolled alcohol use, dependency, or treatment (AA/rehab). Illicit Drug: None reported to SW. Impressions: Reassessment complete. Patient is 64 years old and remains actively waitlisted for transplant at this time. Patient appears to have an adequate understanding of transplant risks & benefits, and denies any issues with medical compliance at this time. Blanquita () will continue to be the primary source of caregiver support post-transplant. Patient's financial situation appears stable and adequateto meet his basic needs. His insurance coverage includes Medicare A&B and R ([facility]). Patient remains independent with ADLs, and there have been no major changes to his functional status since initial assessment. Based on the information patient provided, patient appears to continue to be capable of following a post-transplant regimen and remains an adequate candidate for transplant from a psychosocial perspective. Recommendations: Psychosocial Reassessment: Complete. Caregiver Plan: Patient's caregiver will be , Blanquita (#[phone]) . Patient's backup caregiver will be pts sister, Meghann (#[phone]) Employment Plan: Patient is disabled. Medication Access After Transplant: Patient's insurance coverage includes Medicare A&B and UMR ([facility]) through his 's employer, and he uses [facility]. AD/DPOA: Pt has not completed AD/DPOA paperwork. Pt has blank copy of AD/DPOA. Pt to complete at own discretion. Goals: Patient will continue to adhere to the pre-transplant treatment plan and following transplant team recommendations. Plan: Social work will collaborate with transplant team and patient will continue to await donor offer SEAN Miles, [facility] Senior Logistics Manager [phone] documented in this encounter Plan of Treatment Scheduled Procedures Name Priority Associated Diagnoses Date/Ti me TRANSPLANT KIDNEY ESRD (end stage renal disease) ([facility]) documented as of this encounter Visit Diagnoses Not on filedocumented in this encounter Care Teams Director Chemistry Relationship Specialty Start Date End Date Gerardo Shah MD PCP - General Internal Medicine 09/30/18 Suzette Strickland MD [address] [facility] [address] [place] [address] Referring Physician Nephrology 02/15/20 Rita Tapia, RN [address] [place] [address] Registered Nurse Ply Splicer 02/15/20 documented as of this encounter
--- OUTSIDE RECORDS SUMMARY | 2024-10-16 06:35 | XMS_ITS | Encounter Summary ---
Author Organization [facility] Healthcare Address [address] [place] [address] Care Team Providers Care Wax Machine Operator Name Role Phone Gerardo Shah MD Primary Care Provider [phone] Suzette Strickland MD Unavailable [phone] Rita Tapia RN Unavailable [phone] Encounter Details Date Type Department Care Team (Latest Contact Info) Description 12/23/2023 10:00 AM WATER TESTER - 12/23/2023 11:59 PM WATER TESTER Hospital Encounter [address] [address] 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) ([facility]) Discharge Disposition: Discharge to home or self care Social History Tobacco Use Types Packs/Day Years Used Date Smoking Tobacco: Former Cigarettes 1.5 40 0 04/11/1978 - 2017 Smokeless Tobacco: Never Alcohol Use Standard Drinks/Week Comments Yes 1 (1 standard drink = 0.6 oz pur e alcohol) OCC Sex and Gender Information Value Date Recorded Sex Assigned at Not on file Legal Sex Male 4:54 AM WATER TESTER Gender Identity Not on file Sexual Orientation Straight 05/03/2020 10 :36 AM CDT documented as of this encounter Medications at Time of Discharge acetaminophen 500 mg capsuleIndications :Pain Take 1 capsule (500 mg total) by mouth every 6 (six) hours as needed for pain for up to 30 doses 30 capsule 06/18/2020 aspirin 81 mg tabletIndications: Myocardial Reinfarction Prevention Take 1 tablet (81 mg total) by mouth every morning bumetanide (BUMEX) 1 mg tabletIndications: HELP EMPTY BLADDER Take 1 tablet (1 mg total) by mouth every morning 09/06/2020 cyanocobalamin (Vitamin B-12) 1,000 mcg tabletIndications: Prevention of Vitamin B12 Deficiency Take 1 tablet (1,000 mcg total) by mouth every morning famotidine (PEPCID) 20 mg tablet Take 2 tablets (40 mg total) by mouth daily lidocaine-prilocai ne cream 03/17/2021 nitroglycerin (NITROSTAT) 0.[address] 1 tablet (0.4 mg total) under the tongue every 5 (five) minutes as needed for chest pain 30 tablet 3 09/05/2023 amLODIPine (NORVASC) 5 mg tablet TAKE ONE TABLET BY MOUTH EVERY MORNING 90 tablet 2 09/16/2023 4 isosorbide mononitrate ER (IMDUR) 30 mg 24 hr tablet TAKE ONE TABLET BY MOUTH EVERY MORNING 30 tablet 3 11/18/2023 4 metoprolol tartrate (LOPRESSOR) 25 mg immediate release tablet TAKE ONE TABLET BY MOUTH TWICE A DAY 180 tablet 2 05/22/2023 4 documented as of this encounter Discharge Disposition Disposition Code Departure Means Destination Discharge to home or self care documented in this encounter Plan of Treatment Scheduled Procedures Name Priority Associated Diagnoses Date/Ti me TRANSPLANT KIDNEY ESRD (end stage renal disease) ([facility]) documented as of this encounter Procedures Procedure Name Priority Date/Time Associated Diagnosis Comments HLA ANTIBODY SCREEN BY PRA OR SAB PER SCHEDULE (CLASS I AND CLASS II) Routine 12/23/2023 10:00 AM WATER TESTER Stage 5 chronic kidney disease on chronic dialysis ([facility]) ([facility]) documented in this encounter Results * HLA Antibody Screen by PRA or SAB per Schedule (Class I and Class II) (12/23/2023 10:00 AM WATER TESTER) Blood 12/23/2023 10:0 0 AM WATER TESTER Narrative [facility] - WATER TESTER Sample received in lab and stored. ??No testing performed at this time. us Perla Valadez MD LAB BLOOD ORDERABLE S Final Result [facility] documented in this encounter Visit Diagnoses Diagnosis 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) (HCC) documented in this encounter Care Teams Wax Machine Operator Relationship Specialty Start Date End Date Gerardo Shah MD PCP - General Internal Medicine 09/30/18 Suzette Strickland MD [address] [facility] [address] [place] [address] Referring Physician Nephrology 02/15/20 Rita Tapia, RN [address] [place], [place] [id number] Registered Nurse Stock Wetter 02/15/20 documented as of this encounter
--- OUTSIDE RECORDS SUMMARY | 2024-10-16 06:35 | XMS_ITS | Encounter Summary ---
Author Organization [facility] Healthcare Address [address] [place] [address] Care Team Providers Care Cutter Plastics Rolls Name Role Phone Gerardo Shah MD Primary Care Provider [phone] Suzette Strickland MD Unavailable [phone] Rita Tapia RN Unavailable [phone] Encounter Details Date Type Department Care Team (Latest Contact Info) Description 04/13/2024 10:00 AM CDT - 04/13/2024 11:59 PM CDT Hospital Encounter [address] [address] 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) ([facility]) Discharge Disposition: Discharge to home or self [...] on file Legal Sex Male 4:54 AM ICE CREAM MIXER Gender Identity Not on file Sexual Orientation [...] BY MOUTH EVERY MORNING 30 tablet 3 03/17/2024 4 documented as of this encounter Discharge Disposition Disposition Code Departure Means Destination Discharge to home or self care documented in this encounter Plan of Treatment Scheduled Procedures Name Priority Associated Diagnoses Date/Ti me TRANSPLANT KIDNEY ESRD (end stage renal disease) ([facility]) documented as of this encounter Procedures Procedure Name Priority Date/Time Associated Diagnosis Comments HLA ANTIBODY SCREEN BY PRA OR SAB PER SCHEDULE (CLASS I AND CLASS II) Routine 04/13/2024 10:00 AM CDT Stage 5 chronic kidney disease on chronic dialysis ([facility]) ([facility]) HLA ANTIBODY SCREEN - SAB (CLASS I AND CLASS II) Routine 04/13/2024 10:00 AM CDT Stage 5 chronic kidney disease on chronic dialysis ([facility]) ([facility]) documented in this encounter Results * HLA Antibody Screen - SAB (Class I and Class II) (04/13/2024 10:00 AM CDT) Class I Treatment EDTA [facility] Class I Dilution 1:1 [facility] Class I Tested Date 04/14/2024 [facility] Class I Result Negative [facility] Class I CPRA 0 [facility] Class II Treatment EDTA [facility] Class II Dilution 1:1 [facility] Class II Tested Date 04/14/2024 [facility]OT[facility] Class II Result Positive [facility] Class II CPRA 20 [facility] Class II Moderate Risk DPB1*01:01, DPB1*11:01 [facility] Class II Low Risk DR51; DQ7; DPB1*03:01 [facility] 04/13/2024 10:0 0 AM CDT 04/15/2024 2:51 PM CDT Narrative [facility] - 04/15/2024 2:51 PM CDT Single-antigen HLA antibody screen is performed on serum samples using a method developed and validated by the [facility] HLA laboratory based on an FDA-approved IVD kit ([employer] Single-Antigen, [employer] [place], [place]). All patient serum samples are pretreated with EDTA before the screen to prevent complement interference. Additional serum treatments, such as adsorption and DTT treatment, may be performed as indicated. ??Interpretive comments: Low risk: MFI 7201-2549. Moderate risk: MFI 7506-9215. Increased risk: MFI >/= 5000. The presence of an antigen in two or more risk categories may indicate a mixed reactivity pattern among beads of multiple subtypes. Preformed donor-specific antibodies (DSA) with MFI above 2000 are predictive of positive cytotoxicity crossmatch (Hum Immunol 2010;71:268-73. Hum Immunol 2012;73:497- 604) and carry a higher risk of humoral rejection. For our solid-organ transplant programs, unacceptable antigens (UA) for transplant candidates are defined by MFI >/= 2000 with some exceptions. UA are listed at [employer] and used to generate calculated PRA (cPRA) rounded to the nearest integer. In the post-transplant setting, MFI values from donor-specific beads are listed in the DSA report to provide additional information. It is important to note that this test is approved as a qualitative test and the MFI values are not strictly linear. For platelet refractoriness: An empirical cutoff value of MFI >/= 2000 has been used in our center; a higher cutoff value such as 5000 may also be suitable for highly sensitized patients to prioritize the antigens to avoid. Testing performed at the [facility], [address], 5th floor, [place], [address]. IA # [id number]. Harman Flores M.D., Ph.D., HLA Clinical Operations Consultant Aviva Conway, Ph.D., Corrections Counselor, [facility] Current methodology and interpretive comments last revised on 11/22/2022. us Perla aVladez MD LAB BLOOD ORDERABLE S Final Result [facility] * HLA Antibody Screen by PRA or SAB per Schedule (Class I and Class II) (04/13/2024 10:00 AM CDT) Blood 04/13/2024 10:0 0 AM CDT Narrative HIST[facility] - ICE CREAM MIXER Sample received in lab. ??Single Antigen Antibody Screen ordered. us Perla Valadez MD LAB BLOOD ORDERABLE S Final Result [facility] documented in this encounter Visit Diagnoses Diagnosis 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) (HCC) documented in this encounter Care Teams Cutter Plastics Rolls Relationship Specialty Start Date End Date Gerardo Shah MD PCP - General Internal Medicine 09/30/18 Suzette Strickland MD [address] [place] [address] [place] [address] Referring Physician Nephrology 02/15/20 Rita Tapia, RN [address] [place] [address] Registered Nurse Natural Science Manager 02/15/20 documented as of this encounter
--- OUTSIDE RECORDS SUMMARY | 2024-10-16 06:35 | XMS_ITS | Encounter Summary ---
Author Organization [facility] Healthcare Address [address] [place] [address] Care Team Providers Care Beer Brewer Name Role Phone Gerardo Shah MD Primary Care Provider [phone] Suzette Strickland MD Unavailable [phone] Rita Tapia RN Unavailable [phone] Encounter Details Date Type Department Care Team (Late st Contact Info) Description 11/12/2023 Telephone [facility] Transplant Kidney [address] [facility] [address] Mailstop [phone] [place], [place] [id number] Rita Tapia RN [address] [place], [place] [id number] Social History Tobacco Use Types Packs/Day Years Used Date Smoking Tobacco: Former Cigarettes 1.5 40 0 04/11/1978 - 2017 Smokeless Tobacco: Never Alcohol Use Standard Drinks/Week Comments Yes 1 (1 standard drink = 0.6 oz pur e alcohol) OCC Sex and Gender Information Value Date Recorded Sex Assigned at Not on file Legal Sex Male 4:54 AM CARE CONNECTOR Gender Identity Not on file Sexual Orientation Straight 05/03/2020 10 :36 AM CDT documented as of this encounter Miscellaneous Notes * Telephone Encounter - Rita Tapia RN - 11/12/2023 11:20 AM CST Received PSA from [facility]. Added to checklist and saved to chart. CONNECTOR documented in this encounter Plan of Treatment Scheduled Procedures Name Priority Associated Diagnoses Date/Ti me TRANSPLANT KIDNEY ESRD (end stage renal disease) ([facility]) documented as of this encounter Visit Diagnoses Not on filedocumented in this encounter Care Teams Beer Brewer Relationship Specialty Start Date End Date Gerardo Shah MD PCP - General Internal Medicine 09/30/18 Suzette Strickland MD [address] [facility] [address] [place] [address] Referring Physician Nephrology 02/15/20 Rita Tapia, RN [address] [place], [place] [id number] Registered Nurse Customer Support Representative 02/15/20 documented as of this encounter
--- OUTSIDE RECORDS SUMMARY | 2024-10-16 06:35 | XMS_ITS | Encounter Summary ---
Author Organization [facility] Healthcare Address [address] [place] [address] Care Team Providers Care Melt Down Furnace Operator Name Role Phone Gerardo Shah MD Primary Care Provider [phone] Suzette Strickland MD Unavailable [phone] Rita Tapia RN Unavailable [phone] Encounter Details Date Type Department Care Team (Late st Contact Info) Description 09/29/2024 Telephone [facility] Transplant Kidney [address] [facility] 340 Mailstop [phone] [place], [place] [phone] Rita Tapia RN [address] [place], [place] [phone] Social History Tobacco Use Types Packs/Day Years Used Date Smoking Tobacco: Former Cigarettes 1.5 40 0 04/11/1978 - 2017 Smokeless Tobacco: Never Alcohol Use Standard Drinks/Week Comments Yes 1 (1 standard drink = 0.6 oz pur e alcohol) OCC Sex and Gender Information Value Date Recorded Sex Assigned at Not on file Legal Sex Male 4:54 AM WHEEL LOADER OPERATOR Gender Identity Not on file Sexual Orientation Straight 05/03/2020 10 :36 AM CDT documented as of this encounter Miscellaneous Notes * Telephone Encounter - Rita Tapia RN - 09/29/2024 3:06 PM CST Called patient and discussed need for annual testing. I told him that he had a cath in April of 2023at had no blockages so we could forego the cardiac stress testing until April of 2025. I aske dhimif he has a dentist he sees and he says he sees a Dr. Kan in [place]. I told him I would request a dental clearance letter from them and get his labs from his dialysis center. Faxed dental clearance letter to [phone]. L LOADER OPERATOR documented in this encounter Plan of Treatment Scheduled Procedures Name Priority Associated Diagnoses Date/Ti me TRANSPLANT KIDNEY ESRD (end stage renal disease) ([facility]) documented as of this encounter Visit Diagnoses Not on filedocumented in this encounter Care Teams Melt Down Furnace Operator Relationship Specialty Start Date End Date Gerardo Shah MD PCP - General Internal Medicine 09/30/18 Suzette Strickland MD [address] [facility] [address] [place] [address] Referring Physician Nephrology 02/15/20 Rita Tapia, RN [address] [place] [address] Registered Nurse Instructional Technology Director 02/15/20 documented as of this encounter
--- OUTSIDE RECORDS SUMMARY | 2024-10-16 06:35 | XMS_ITS | Encounter Summary ---
Author Organization [facility] Healthcare Address [address] [place] [address] Care Team Providers Care Pastoral Worker Name Role Phone Gerardo Shah MD Primary Care Provider Suzette Strickland MD Unavailable [phone] Rita Tapia RN Unavailable [phone] Reason for Visit * Reason Onset Date Comments Waitlist Maintenance 11/07/2023 Encounter Details Date Type Department Care Team (Late st Contact Info) Description 11/07/2023 Telephone [facility] Transplant Kidney [address] [address] Mailstop [phone] [place] [address] Rhoda Morejon Waitlist Maintenance Social History Tobacco Use Types Packs/Day Years Used Date Smoking Tobacco: Former Cigarettes 1.5 40 0 04/11/1978 - 2017 Smokeless Tobacco: Never Alcohol Use Standard Drinks/Week Comments Yes 1 (1 standard drink = 0.6 oz pur e alcohol) OCC Sex and Gender Information Value Date Recorded Sex Assigned at Not on file Legal Sex Male 4:54 AM CUSHION MAT MAKER Gender Identity Not on file Sexual Orientation Straight 05/03/2020 10 :36 AM CDT documented as of this encounter Miscellaneous Notes * Telephone Encounter - Rhoda Morejon - 11/12/2023 11:05 AM CST Spoke to patient on the phone. Encouraged patient to contact nurse with any questions. Reviewed the following: Demographics (email, address, phone numbers): No changes Patient contacts: No changes Insurance carriers: Patient confirmed [employer] as primary and Medicare A&B as secondary insurance. I reminded patient of the importance of notifying the transplant center right away of any insurancechanges. Employment status and financial situation: No changes Dialysis: No changes Weight: Patient self reported being 179 pounds. BMI 22.4 Medical issues (hospitalizations, medical conditions, illnesses, infections, procedures, open wounds, new diagnoses, or positive COVID results):Patient stated he had his PSA done today at [facility]. COVID Vaccinations: None reported Social Issues/Questions: None reported ION MAT MAKER documented in this encounter Plan of Treatment Scheduled Procedures Name Priority Associated Diagnoses Date/Ti me TRANSPLANT KIDNEY ESRD (end stage renal disease) ([facility]) documented as of this encounter Visit Diagnoses Not on filedocumented in this encounter Care Teams Pastoral Worker Relationship Specialty Start Date End Date Gerardo Shah MD PCP - General Internal Medicine 09/30/18 Suzette Strickland MD [address] [facility] [address] [place] [address] Referring Physician Nephrology 02/15/20 Rita Tapia, RN [address] [place] [address] Registered Nurse Correctional Counselor 02/15/20 documented as of this encounter
--- OUTSIDE RECORDS SUMMARY | 2024-10-16 06:35 | XMS_ITS | Encounter Summary ---
Author Organization [facility] Healthcare Address [address] [place] [address] Care Team Providers Care Sanitation Tank Washer Name Role Phone Gerardo Shah MD Primary Care Provider [phone] Suzette Strickland MD Unavailable [phone] Rita Tapia RN Unavailable [phone] Encounter Details Date Type Department Care Team (Late st Contact Info) Description 08/04/2024 Telephone [facility] Transplant Kidney [address] [facility] 340 Mailstop [phone] [place], [place] [phone] Rita Tapia RN [address] [place], [place] [phone] Social History Tobacco Use Types Packs/Day Years Used Date Smoking Tobacco: Former Cigarettes 1.5 40 0 04/11/1978 - 2017 Smokeless Tobacco: Never Alcohol Use Standard Drinks/Week Comments Yes 1 (1 standard drink = 0.6 oz pur e alcohol) OCC Sex and Gender Information Value Date Recorded Sex Assigned at Not on file Legal Sex Male 4:54 AM CHIEF SCIENTIST Gender Identity Not on file Sexual Orientation Straight 05/03/2020 10 :36 AM CDT documented as of this encounter Miscellaneous Notes * Telephone Encounter - Rita Tapia RN - 08/04/2024 10:09 AM CDT Returned call to patient and let him know that he is at the top of page 2 for the O blood group. Heasked about his annual testing. I told him that he had a cath in April of 2023 that was clean and wewill need to schedule his annual testing in October. He verbalized understanding. documented in this encounter Plan of Treatment Scheduled Procedures Name Priority Associated Diagnoses Date/Ti me TRANSPLANT KIDNEY ESRD (end stage renal disease) ([facility]) documented as of this encounter Visit Diagnoses Not on filedocumented in this encounter Care Teams Sanitation Tank Washer Relationship Specialty Start Date End Date Gerardo Shah MD PCP - General Internal Medicine 09/30/18 Suzette Strickland MD [address] [facility] [address] [place] [address] Referring Physician Nephrology 02/15/20 Rita Tapia, RN [address] [place] [address] Registered Nurse Cruise Consultant 02/15/20 documented as of this encounter
--- OUTSIDE RECORDS SUMMARY | 2024-10-16 06:35 | XMS_ITS | Encounter Summary ---
Author Organization [facility] Healthcare Address [address] [place] [address] Care Team Providers Care Turbine Mechanic Name Role Phone Gerardo Shah MD Primary Care Provider [phone] Suzette Strickland MD Unavailable [phone] Rita Tapia RN Unavailable [phone] Encounter Details Date Type Department Care Team (Late st Contact Info) Description 10/05/[address] [facility] Transplant Kidney [address] [address] Mailstop [phone] [place] [address] Landy Sumner Social History Tobacco Use Types Packs/Day Years Used Date Smoking Tobacco: Former Cigarettes 1.5 40 0 04/11/1978 - 2017 Smokeless Tobacco: Never Alcohol Use Standard Drinks/Week Comments Yes 1 (1 standard drink = 0.6 oz pur e alcohol) OCC Sex and Gender Information Value Date Recorded Sex Assigned at Not on file Legal Sex Male 4:54 AM COLLEGE BASKETBALL COACH Gender Identity Not on file Sexual Orientation Straight 05/03/2020 10 :36 AM CDT documented as of this encounter Last Filed Vital Signs Vital Sign Reading Time Taken Comments Blood Pressure - - Pulse - - Temperature - - Respiratory Rate - - Oxygen Saturation - - Inhaled Oxygen Concentration - - Weight 81.5 kg (179 lb 10.8 oz) 10/05/2024 1:31 PM COLLEGE BASKETBALL COACH Height - - Body Mass Index 22.46 03/24/2024 8:34 AM CDT documented in this encounter Progress Notes * Landy Sumner - 10/05/2024 1:31 PM CST Received dialysis records via fax and saved to chart Updated weight , dialysis start date, and immunizations EGE BASKETBALL COACH documented in this encounter Plan of Treatment Scheduled Procedures Name Priority Associated Diagnoses Date/Ti me TRANSPLANT KIDNEY ESRD (end stage renal disease) ([facility]) documented as of this encounter Visit Diagnoses Not on filedocumented in this encounter Care Teams Turbine Mechanic Relationship Specialty Start Date End Date Gerardo Shah MD PCP - General Internal Medicine 09/30/18 Suzette Strickland MD [address] [facility] [address] [place] [address] Referring Physician Nephrology 02/15/20 Rita Tapia, RN [address] [place], [place] [phone] Registered Nurse Freight Car Builder 02/15/20 documented as of this encounter
--- OUTSIDE RECORDS SUMMARY | 2024-10-16 06:35 | XMS_ITS | Encounter Summary ---
Author Organization [facility] Healthcare Address [address] [place] [address] Care Team Providers Care Instrument Calibrator Name Role Phone Gerardo Shah MD Primary Care Provider [phone] Suzette Strickland MD Unavailable [phone] Rita Tapia RN Unavailable [phone] Encounter Details Date Type Department Care Team (Latest Contact Info) Description 09/21/2024 10:00 AM CAR DRIVER - 09/21/2024 11:59 PM CAR DRIVER Hospital Encounter [address] [address] ESRD (end stage renal disease) ([facility]) ([facility]) Discharge Disposition: Discharge to home or [...] on file Legal Sex Male 4:54 AM CAR DRIVER Gender Identity Not on file Sexual Orientation Straight 05/03/2020 10 :36 AM CDT documented as of this encounter Medications at Time of Discharge acetaminophen 500 mg capsuleIndications :Pain Take 1 capsule (500 mg total) by mouth every 6 (six) hours as needed for pain for up to 30 doses 30 capsule 06/18/2020 amLODIPine (NORVASC) 5 mg tablet TAKE ONE TABLET BY MOUTH EVERY MORNING 90 tablet 2 06/15/2024 aspirin 81 mg tabletIndications: Myocardial Reinfarction Prevention [...] tablets (40 mg total) by mouth daily isosorbide mononitrate ER (IMDUR) 30 mg 24 hr tablet TAKE ONE TABLET BY MOUTH EVERY MORNING 30 tablet 3 07/14/2024 lidocaine-prilocai ne cream 03/17/2021 nitroglycerin (NITROSTAT) 0.[address] 1 tablet (0.4 mg total) under the tongue every 5 (five) minutes as needed for chest pain 30 tablet 3 09/05/2023 documented as of this encounter Discharge Disposition Disposition Code Departure Means Destination Discharge to home or self care documented in this encounter Plan of Treatment Scheduled Procedures Name Priority Associated Diagnoses Date/Ti ia TRANSPLANT KIDNEY ESRD (end stage renal disease) ([facility]) documented as of this encounter Procedures Procedure Name Priority Date/Time Associated Diagnosis Comments HLA ANTIBODY SCREEN BY PRA OR SAB PER SCHEDULE (CLASS I AND CLASS II) Routine 09/21/2024 10:00 AM CAR DRIVER ESRD (end stage renal disease) ([facility]) ([facility]) documented in this encounter Results * HLA Antibody Screen by PRA or SAB per Schedule (Class I and Class II) (09/21/2024 10:00 AM CAR DRIVER) Blood 09/21/2024 10:0 0 AM CAR DRIVER Narrative HISTOTRAC - CAR DRIVER Sample received in lab and stored. ??No testing performed at this time. us Alonso Pruitt MD LAB BLOOD ORDERABLES Final Resu lt HISTVINCENT documented in this encounter Visit Diagnoses Diagnosis ESRD (end stage renal disease) (CMS/HCC) (HCC) End stage renal disease documented in this encounter Care Teams Instrument Calibrator Relationship Specialty Start Date End Date Gerardo Shah MD PCP - General Internal Medicine 09/30/18 Suzette Strickland MD [facility] [address] [place] [address] Referring Physician Nephrology 02/15/20 Rita Tapia, RN [address] [place], [place] [id number] Registered Nurse Mining Engineer 02/15/20 documented as of this encounter
--- OUTSIDE RECORDS SUMMARY | 2024-10-16 06:35 | XMS_ITS | Encounter Summary ---
Author Organization [facility] Healthcare Address [address] [place] [address] Care Team Providers Care Director Cpg Name Role Phone Gerardo Shah MD Primary Care Provider [phone] Suzette Strickland MD Unavailable [phone] Rita Tapia RN Unavailable [phone] Encounter Details Date Type Department Care Team (Latest Contact Info) Description 06/08/2024 10:00 AM CDT - 06/08/2024 11:59 PM CDT Hospital Encounter [address] [address] ESRD (end stage renal disease) ([facility]) ([facility]) Discharge Disposition: Discharge to home or [...] on file Legal Sex Male 4:54 AM ACID RETORT OPERATOR Gender Identity Not on file Sexual [...] TRANSPLANT KIDNEY ESRD (end stage renal disease) ([facility]) documented as of this encounter Procedures Procedure Name Priority Date/Time Associated Diagnosis Comments HLA ANTIBODY SCREEN BY PRA OR SAB PER SCHEDULE (CLASS I AND CLASS II) Routine 06/08/2024 10:00 AM CDT ESRD (end stage renal disease) ([facility]) ([facility]) HLA ANTIBODY SCREEN - SAB (CLASS I AND CLASS II) Routine 06/08/2024 10:00 AM CDT ESRD (end stage renal disease) ([facility]) ([facility]) documented in this encounter Results * HLA Antibody Screen - SAB (Class I and Class II) (06/08/2024 10:00 AM CDT) Class I Treatment EDTA HISTOTRAC Class I Dilution 1:1 HISTOTRAC Class I Tested Date 06/09/2024 HISTOTRAC Class I Result Negative HISTOTRAC Class I CPRA 0 HISTOTRAC Class II Treatment EDTA HISTOTRAC Class II Dilution 1:1 HISTOTRAC Class II Tested Date 06/09/2024 HISTOTRAC Class II Result Positive HISTOTRAC Class II CPRA 20 HISTOTRAC Class II Moderate Risk DPB1*01:01, DPB1*11:01 HISTOTRAC Class II Low Risk DQ7; DPB1*03:01 HISTOTRAC 06/08/2024 10:0 0 AM CDT 06/10/2024 12:36 PM CDT Narrative HISTOTRAC - 06/10/2024 12:36 PM CDT Single-antigen HLA antibody screen is performed on serum samples using a method developed and validated by the [facility] HLA laboratory based on an FDA-approved IVD kit (Fontselfcreen Single-Antigen, [employer], [place], [place]). All patient serum samples are pretreated with EDTA before the screen to prevent complement interference. Additional serum treatments, such as adsorption and DTT treatment, may be performed as indicated. ??Interpretive comments: Low risk: MFI [id number]. Moderate risk: MFI [id number]. Increased risk: MFI >/= 5000. The presence [...] antigens to avoid. Testing performed at the [facility], [address], 5th floor, [facility], [place], [address]. [facility] # [id number]. Harman Flores M.D., Ph.D., HLA Weatherization And Housing Inspector Aviva Conway, Ph.D., Slate Roofer, [facility] Current methodology and interpretive comments last revised on 11/22/2022. us Alonso Pruitt MD LAB BLOOD ORDERABLES Final Resu lt HISTOTRAC * HLA Antibody Screen by PRA or SAB per Schedule (Class I and Class II) (06/08/2024 10:00 AM CDT) Blood 06/08/2024 10:0 0 AM CDT Narrative HISTOTRAC - ACID RETORT OPERATOR Sample received in lab. ??Single Antigen Antibody Screen ordered. Alonso Pruitt MD LAB BLOOD ORDERABLES Final Resu lt HISTOTRAC documented in this encounter Visit Diagnoses Diagnosis ESRD (end stage renal disease) (CMS/HCC) ([facility]) End stage renal disease documented in this encounter Care Teams Director Cpg Relationship Specialty Start Date End Date Gerardo Shah MD PCP - General Internal Medicine 09/30/18 Suzette Strickland MD [address] [facility] [address] [place] [address] Referring Physician Nephrology 02/15/20 Rita Tapia, RN [address] [place] [address] Registered Nurse Community Theater Actor 02/15/20 documented as of this encounter
--- OUTSIDE RECORDS SUMMARY | 2024-10-16 06:35 | XMS_ITS | Encounter Summary ---
Author Organization [facility] Healthcare Address [address] [place] [address] Care Team Providers Care Labeling Machine Operator Name Role Phone Gerardo Shah MD Primary Care Provider [phone] Suzette Strickland MD Unavailable [phone] Rita Tapia RN Unavailable [phone] Encounter Details Date Type Department Care Team (Latest Contact Info) Description 07/06/2024 10:00 AM CDT - 07/06/2024 11:59 PM CDT Hospital Encounter [address] [address] ESRD (end stage renal disease) ([facility]) (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) documented as of this encounter Procedures Procedure Name Priority Date/Time Associated Diagnosis Comments HLA ANTIBODY SCREEN BY PRA OR SAB PER SCHEDULE (CLASS I AND CLASS II) Routine 07/06/2024 10:00 AM CDT ESRD (end stage renal disease) ([facility]) ([facility]) documented in this encounter Results * HLA Antibody Screen by PRA or SAB per Schedule (Class I and Class II) (07/06/2024 10:00 AM CDT) Blood 07/06/2024 10:0 0 AM CDT Narrative HISTOTRAC - STARCH CRAB Sample received in lab and stored. ??No testing performed at this time. us Alonso Pruitt MD LAB BLOOD ORDERABLES Final Resu lt HISTOTRAC documented in this encounter Visit Diagnoses Diagnosis ESRD (end stage renal disease) (CMS/HCC) (HCC) End stage renal disease documented in this encounter Care Teams Labeling Machine Operator Relationship Specialty Start Date End Date Gerardo Shah MD PCP - General Internal Medicine 09/30/18 Suzette Strickland MD [address] [facility] [address] [place] [address] Referring Physician Nephrology 02/15/20 Rita Tapia, RN [address] [place], [place] [id number] Registered Nurse Nozzleman 02/15/20 documented as of this encounter
--- OUTSIDE RECORDS SUMMARY | 2024-10-16 06:35 | XMS_ITS | Encounter Summary ---
Author Organization [facility] Healthcare Address [address] [place] [address] Care Team Providers Care Mobile Product Manager Name Role Phone Gerardo Shah MD Primary Care Provider [phone] Suzette Strickland MD Unavailable [phone] Rita Tapia RN Unavailable [phone] Encounter Details Date Type Department Care Team (Late st Contact Info) Description 11/12/2023 Orders Only [facility] Transplant Kidney [phone] [place] [address] Provider, MD [facility] [place] [address] Social History Tobacco Use Types Packs/Day Years Used Date Smoking Tobacco: Former Cigarettes 1.5 40 0 04/11/1978 - 2017 Smokeless Tobacco: Never Alcohol Use Standard Drinks/Week Comments Yes 1 (1 standard drink = 0.6 oz pur e alcohol) OCC Sex and Gender Information Value Date Recorded Sex Assigned at Not on file Legal Sex Male 4:54 AM LEGAL RECORDS MANAGER Gender Identity Not on file Sexual Orientation Straight 05/03/2020 10 :36 AM CDT documented as of this encounter Plan of Treatment Scheduled Procedures Name Priority Associated Diagnoses Date/Ti me TRANSPLANT KIDNEY ESRD (end stage renal disease) (CMS/HCC) documented as of this encounter Procedures Procedure Name Priority Date/Time Associated Diagnosis Comments PROSTATE-SPECIFIC AG, SERUM Routine 11/12/2023 11:23 AM LEGAL RECORDS MANAGER documented in this encounter Results * Prostate-Specific Ag, Serum (11/12/2023 11:23 AM LEGAL RECORDS MANAGER) Blood us Historical Provider LAB BLOOD ORDERABLES Frances l Result documented in this encounter Visit Diagnoses Not on filedocumented in this encounter Care Teams Mobile Product Manager Relationship Specialty Start Date End Date Gerardo Shah MD PCP - General Internal Medicine 09/30/18 Suzette Strickland MD [facility] [address] [place] [address] Referring Physician Nephrology 02/15/20 Rita Tapia, RN [address] [place], [place] [id number] Registered Nurse Ambulance Operations Supervisor 02/15/20 documented as of this encounter
--- OUTSIDE RECORDS SUMMARY | 2024-10-16 06:35 | XMS_ITS | Encounter Summary ---
Author Organization [facility] Healthcare Address [address] [place] [address] Care Team Providers Care Extractions Technologist Name Role Phone Gerardo Shah MD Primary Care Provider [phone] Suzette Strickland MD Unavailable [phone] Rita Tapia RN Unavailable [phone] Encounter Details Date Type Department Care Team (Latest Contact Info) Description 02/03/2024 10:00 AM CDT - 02/03/2024 11:59 PM CDT Hospital Encounter [address] [address] 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) ([facility]) Discharge Disposition: Discharge to home or [...] on file Legal Sex Male 4:54 AM DIRECTOR SKILLS Gender Identity Not on file Sexual Orientation [...] in this encounter Plan of Treatment Scheduled Orders Name Type Priority Associated Diagnoses Orde r Schedule HLA Antibody Screen by PRA or SAB per Schedule (Class I and Class II) Lab Routine Stage 5 chronic kidney disease on chronic dialysis ([facility]) ([facility]) Once for 1 Occurrences starting 02/04/2024 until 02/04/2024 Scheduled Procedures Name Priority Associated Diagnoses Date/Ti me TRANSPLANT KIDNEY ESRD (end stage renal disease) ([facility]) documented as of this encounter Procedures Procedure Name Priority Date/Time Associated Diagnosis Comments HLA ANTIBODY SCREEN BY PRA OR SAB PER SCHEDULE (CLASS I AND CLASS II) Routine 02/03/2024 10:00 AM CDT Stage 5 chronic kidney disease on chronic dialysis ([facility]) ([facility]) HLA ANTIBODY SCREEN - SAB (CLASS I AND CLASS II) Routine 02/03/2024 10:00 AM CDT 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) (HCC) documented in this encounter Results * HLA Antibody Screen - SAB (Class I and Class II) (02/03/2024 10:00 AM CDT) Class I Treatment EDTA HISTOTRAC Class I Dilution 1:1 HISTOTRAC Class I Tested Date 02/04/2024 HISTOTRAC Class I Result Negative HISTOTRAC Class I CPRA 0 HISTOTRAC Class I Low Risk A34 HISTOTRAC Class II Treatment EDTA HISTOTRAC Class II Dilution 1:1 HISTOTRAC Class II Tested Date 02/04/2024 HISTOTRAC Class II Result Negative HISTOTRAC Class II CPRA 0 HISTOTRAC Class II Low Risk DQ7; DPB1*01:01, DPB1*11:01 HISTOTRAC 02/03/2024 10:0 0 AM CDT 02/05/2024 11:51 AM CDT Narrative HISTOTRAC - 02/05/2024 11:51 AM CDT Single-antigen HLA antibody screen is performed on serum samples using a method developed and validated by the [facility] HLA laboratory based on an FDA-approved IVD kit (LABScreen Single-Antigen, [employer], [place], [place]). All patient serum samples are pretreated with EDTA before the screen to prevent complement interference. Additional serum treatments, such as adsorption and DTT treatment, may be performed as indicated. ??Interpretive comments: Low risk: MFI [id number]. Moderate risk: MFI [id number]. Increased risk: MFI >/= 5000. The presence [...] antigens to avoid. Testing performed at the [facility], [address] [place] [address], 5th floor, [place], [address]. CLIA # [id number]. Harman Flores M.D., Ph.D., HLA Tribal Delegate Aviva Conway, Ph.D., Business Consultant, [facility] Current methodology and interpretive comments last revised on 11/22/2022. us Perla Valadez MD LAB BLOOD ORDERABLE S Final Result Performing Organization Address City/[facility] Co de Phone Number HISTOTRAC * HLA Antibody Screen by PRA or SAB per Schedule (Class I and Class II) (02/03/2024 10:00 AM CDT) Blood 02/03/2024 10:0 0 AM CDT Narrative HISTOTRAC - DIRECTOR SKILLS Sample received in lab. ??Single Antigen Antibody Screen ordered. us Perla Valadez MD LAB BLOOD ORDERABLE S Final Result Performing Organization Address [facility] Co de Phone Number HISTOTRAC documented in this encounter Visit Diagnoses Diagnosis 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) (HCC) documented in this encounter Care Teams Extractions Technologist Relationship Specialty Start Date End Date Gerardo Shah MD PCP - General Internal Medicine 09/30/18 Suzette Strickland MD [address] [facility] [address] [place] [address] Referring Physician Nephrology 02/15/20 Rita Tapia, RN [address], [place] [id number] Registered Nurse Analysis Analyst 02/15/20 documented as of this encounter
--- OUTSIDE RECORDS SUMMARY | 2024-10-16 06:35 | XMS_ITS ---
Author Organization [facility] [address] Address [address] [place] [address] Care Team Providers Care Warehouse Order Puller Name Role Phone Gerardo Shah MD Primary Care Provider [phone] Suzette Strickland MD Unavailable [phone] Rita Tapia RN Unavailable Active Problems Patient Care Coordination No te Formatting of this note migh t be different from the original. 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[facility]) 03/12/2023 Malignant neoplasm of right kidney 09/07/2021 Gastroesophageal reflux disease 06/08/2021 Hypertension 06/08/2021 Vitamin B12 deficiency 06/08/2021 Kidney disease 09/29/2020 Overview (09/29/2020): Added automatically from request for surgery [id number] Encounter for surgical after care following surgery of circulatory system 09/28/2020 Stage 5 chronic kidney disea se on chronic dialysis ([facility]) 08/04/2020 Overview (08/04/2020): Added automatically from request for surgery [id number] End-stage renal disease (ESRD) ([facility]) 020 Overview (06/22/2020): Added automatically from request for surgery [id number] Autosomal dominant polycystic kidney disease 06/2020 Overview (05/05/2020): Added automatically from request for surgery [id number] Polycystic kidney disease, autosomal dominant Stage 4 chronic kidney disease (CMS/HCC) 020 Pre-transplant evaluation for kidney transplant 04/12/2020 Secondary hyperparathyroidism 04/12/2020 Other chest pain 12/23/2018 End stage renal disease ([facility]/HCC) Acute postoperative abdominal pain Current Oncology Plans No current plan information found. Past Plans No past plan information found. Radiation Treatments * No radiation treatments are documented for this patient in [facility]. Treatments may have been administered in another system. Lifetime Dose Tracking * Chemical Lifetime Dose Automatic Entry Manual Entr y Fluoro Time 0.56 minutes 0.56 minutes 0 minutes Air kerma at the reference point (Ka,r) 1.02 mGy 1 .02 mGy 0 mGy DLP 830 mGycm 830 mGycm 0 mGycm Resolved Problems Problem Noted Date Diagnosed Date Resolved Date Coronary arteriosclerosis 06/08/2021
--- OUTSIDE RECORDS SUMMARY | 2024-10-16 06:35 | XMS_ITS | Encounter Summary ---
Author Organization [facility] Healthcare Address [address] [place] [address] Care Team Providers Care Dialysis Patient Care Technician Name Role Phone Gerardo Shah MD Primary Care Provider [phone] Suzette Strickland MD Unavailable [phone] Rita Tapia RN Unavailable [phone] Encounter Details Date Type Department Care Team (Late st Contact Info) Description 06/09/2024 Orders Only [facility] Transplant Kidney [address] [address] [address] [phone] [place], [place] [phone] Rita Tapia, RN [address] [place], [place] [id number] ESRD (end stage renal disease) ([facility]/HCC) ([facility]) (Primary Dx) Social History Tobacco Use Types Packs/Day Years Used Date Smoking Tobacco: Former Cigarettes 1.5 40 0 04/11/1978 - 2017 Smokeless Tobacco: Never Alcohol Use Standard Drinks/Week Comments Yes 1 (1 standard drink = 0.6 oz pur e alcohol) OCC Sex and Gender Information Value Date Recorded Sex Assigned at Not on file Legal Sex Male 4:54 AM DIRECTOR OF ACADEMIC SUPPORT Gender Identity Not on file Sexual Orientation Straight 05/03/2020 10 :36 AM CDT documented as of this encounter Plan of Treatment Scheduled Orders Name Type Priority Associated Diagnoses Orde r Schedule HLA Antibody Screen by PRA or SAB per Schedule (Class I and Class II) Lab Routine ESRD (end stage renal disease) ([facility]) ([facility]) 12 Occurrences starting 06/09/2024 until 06/09/2025, 4 completed Collection Task for HLA Antibody Screen Lab Routine ESRD (end stage renal disease) ([facility]) ([facility]) 12 Occurrences starting 06/09/2024 until 06/09/2025 Scheduled Procedures Name Priority Associated Diagnoses Date/Ti me TRANSPLANT KIDNEY ESRD (end stage renal disease) ([facility]) documented as of this encounter Results * HLA Antibody Screen by PRA or SAB per Schedule (Class I and Class II) (09/21/2024 10:00 AM DIRECTOR OF ACADEMIC SUPPORT) Blood 09/21/2024 10:0 0 AM DIRECTOR OF ACADEMIC SUPPORT Narrative HISTOTRAC - DIRECTOR OF ACADEMIC SUPPORT Sample received in lab and stored. ??No testing performed at this time. Alonso Pruitt MD LAB BLOOD ORDERABLES Final Resu lt Performing Organization Address [facility] Co de Phone Number HISTOTRAC * HLA Antibody Screen by PRA or SAB per Schedule (Class I and Class II) (08/10/2024 10:00 AM CDT) Blood 08/10/2024 10:0 0 AM CDT Narrative HISTOTRAC - DIRECTOR OF ACADEMIC SUPPORT Sample received in lab. ??Single Antigen Antibody Screen ordered. Alonso Pruitt MD LAB BLOOD ORDERABLES Final Resu lt Performing Organization Address City/State/[facility] Co de Phone Number HISTOTRAC * HLA Antibody Screen by PRA or SAB per Schedule (Class I and Class II) (07/06/2024 10:00 AM CDT) Blood 07/06/2024 10:0 0 AM CDT Narrative HISTOTRAC - DIRECTOR OF ACADEMIC SUPPORT Sample received in lab and stored. ??No testing performed at this time. Alonso Pruitt MD LAB BLOOD ORDERABLES Final Resu lt HISTOTRAC * HLA Antibody Screen by PRA or SAB per Schedule (Class I and Class II) (06/08/2024 10:00 AM CDT) Blood 06/08/2024 10:0 0 AM CDT Narrative HISTOTRAC - DIRECTOR OF ACADEMIC SUPPORT Sample received in lab. ??Single Antigen Antibody Screen ordered. us Alonso Pruitt MD LAB BLOOD ORDERABLES Final Resu lt HISTOTRAC documented in this encounter Visit Diagnoses Diagnosis ESRD (end stage renal disease) (CMS/HCC) (HCC)- Primary End stage renal disease ESRD (end stage renal disease) (CMS/HCC) (HCC) End stage renal disease ESRD (end stage renal disease) (CMS/HCC) (HCC) End stage renal disease ESRD (end stage renal disease) (CMS/HCC) (HCC) End stage renal disease ESRD (end stage renal disease) (CMS/HCC) (HCC) End stage renal disease documented in this encounter Care Teams Dialysis Patient Care Technician Relationship Specialty Start Date End Date Gerardo Shah MD PCP - General Internal Medicine 09/30/18 Suzette Strickland MD [address] [facility] [address] [place] [address] Referring Physician Nephrology 02/15/20 Rita Tapia, RN [address] [place] [address] Registered Nurse Camp Program Director 02/15/20 documented as of this encounter
--- OUTSIDE RECORDS SUMMARY | 2024-10-16 06:35 | XMS_ITS | Encounter Summary ---
Author Organization [facility] Healthcare Address [address] [place] [address] Care Team Providers Care Sales Utility Representative Name Role Phone Gerardo Shah MD Primary Care Provider [phone] Suzette Strickland MD Unavailable [phone] Rita Tapia RN Unavailable [phone] Encounter Details Date Type Department Care Team (Late st Contact Info) Description 09/30/2024 Documentation [facility] and [facility] [phone] [place], [place] [id number] Rita Tapia, RN [address] [place], [place] [id number] Social History Tobacco Use Types Packs/Day Years Used Date Smoking Tobacco: Former Cigarettes 1.5 40 0 04/11/1978 - 2017 Smokeless Tobacco: Never Alcohol Use Standard Drinks/Week Comments Yes 1 (1 standard drink = 0.6 oz pur e alcohol) OCC Sex and Gender Information Value Date Recorded Sex Assigned at Not on file Legal Sex Male 4:54 AM DRAGGER Gender Identity Not on file Sexual Orientation Straight 05/03/2020 10 :36 AM CDT documented as of this encounter Plan of Treatment Scheduled Procedures Name Priority Associated Diagnoses Date/Ti me TRANSPLANT KIDNEY ESRD (end stage renal disease) ([facility]) documented as of this encounter Visit Diagnoses Not on filedocumented in this encounter Care Teams Sales Utility Representative Relationship Specialty Start Date End Date Gerardo Shah MD PCP - General Internal Medicine 09/30/18 Suzette Strickland MD [address] [facility] [address] [place] [address] Referring Physician Nephrology 02/15/20 Rita Tapia, RN [address] [place] [address] Registered Nurse Wrist Liner 02/15/20 documented as of this encounter
--- OUTSIDE RECORDS SUMMARY | 2024-10-16 06:35 | XMS_ITS | Encounter Summary ---
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 Gender Identity Not on file Sexual Orientation [...] MOUTH EVERY MORNING 90 tablet 2 09/16/2023 isosorbide mononitrate ER (IMDUR) 30 mg 24 hr tablet TAKE ONE TABLET BY MOUTH EVERY MORNING 30 tablet 3 03/17/2024 4 documented as of this encounter Discharge Disposition Disposition Code Departure Means Destination Discharge to home or self care documented in this encounter Plan of Treatment Scheduled Procedures Name Priority Associated Diagnoses Date/Ti mn TRANSPLANT KIDNEY ESRD (end stage renal disease) ([facility]) documented as of this encounter Visit Diagnoses Not on filedocumented in this encounter Care Teams Associate Store Manager Relationship Specialty Start Date End Date Gerardo Shah MD PCP - General Internal Medicine 09/30/18 Suzette Strickland MD [address] [facility] [address] [place] [address] Referring Physician Nephrology 02/15/20 Rita Tapia, RN [address] [place] [address] Registered Nurse Associate Loan Officer 02/15/20 documented as of this encounter
--- OUTSIDE RECORDS SUMMARY | 2024-10-16 06:35 | XMS_ITS | Encounter Summary ---
Author Organization [facility] Healthcare Address [address] [place] [address] Care Team Providers Care Medical Staff Manager Name Role Phone Gerardo Shah MD Primary Care Provider [phone] Suzette Strickland MD Unavailable [phone] Rita Tapia RN Unavailable [phone] Encounter Details Date Type Department Care Team (Latest Contact Info) Description 08/10/2024 10:00 AM CDT - 08/10/2024 11:59 PM CDT Hospital Encounter [address] [address] ESRD (end stage renal disease) ([facility]) ([facility]) Discharge Disposition: Discharge to home or [...] on file Legal Sex Male 4:54 AM AUDIT SPEC Gender Identity Not on file Sexual Orientation [...] TRANSPLANT KIDNEY ESRD (end stage renal disease) ([facility]) documented as of this encounter Procedures Procedure Name Priority Date/Time Associated Diagnosis Comments HLA ANTIBODY SCREEN BY PRA OR SAB PER SCHEDULE (CLASS I AND CLASS II) Routine 08/10/2024 10:00 AM CDT ESRD (end stage renal disease) ([facility]) ([facility]) HLA ANTIBODY SCREEN - SAB (CLASS I AND CLASS II) Routine 08/10/2024 10:00 AM CDT ESRD (end stage renal disease) ([facility]) ([facility]) documented in this encounter Results * HLA Antibody Screen - SAB (Class I and Class II) (08/10/2024 10:00 AM CDT) Class I Treatment EDTA [facility] Class I Dilution 1:1 [facility] Class I Tested Date 08/12/2024 [facility] Class I Result Negative [facility] Class I CPRA 0 [facility]OT[facility] Class II Treatment EDTA [facility]OT[facility] Class II Dilution 1:1 [facility]OT[facility] Class II Tested Date 08/12/2024 [facility]OT[facility] Class II Result Positive [facility] Class II CPRA 16 [facility] Class II Moderate Risk DPB1*01:01 [facility] Class II Low Risk DPB1*11:01 [facility] 08/10/2024 10:0 0 AM CDT 08/12/2024 10:00 AM CDT Narrative HISTOTRAC - 08/12/2024 10:00 AM CDT Single-antigen HLA antibody screen is performed on serum samples using a method developed and validated by the [facility] laboratory based on an FDA-approved IVD kit ([employer] Single-Antigen, [facility], [place], [place]). All patient serum samples are pretreated with EDTA before the screen to prevent complement interference. Additional serum treatments, such as adsorption and DTT treatment, may be performed as indicated. ??Interpretive comments: Low risk: MFI [id number]. Moderate risk: MFI 2575-5610. Increased risk: MFI >/= 5000. The presence [...] antigens to avoid. Testing performed at the [facility], [address], [place], [address]. [facility] # [id number]. Harman Flores M.D., Ph.D., HLA Professional Poker Player Aviva Conway, Ph.D., Steam Shovel Oiler, [facility] Current methodology and interpretive comments last revised on 11/22/2022. Alonso Pruitt MD LAB BLOOD ORDERABLES Final Resu lt Performing Organization Address City/[facility]/ZIP Co de Phone Number HISTOT[facility] * HLA Antibody Screen by PRA or SAB per Schedule (Class I and Class II) (08/10/2024 10:00 AM CDT) Blood 08/10/2024 10:0 0 AM CDT Narrative [facility] - AUDIT SPEC Sample received in lab. ??Single Antigen Antibody Screen ordered. Alonso Pruitt MD LAB BLOOD ORDERABLES Final Resu lt Performing Organization Address City/[facility]/ZIP Co de Phone Number H[facility]OT[facility] documented in this encounter Visit Diagnoses Diagnosis ESRD (end stage renal disease) (CMS/HCC) ([facility]) End stage renal disease documented in this encounter Care Teams Medical Staff Manager Relationship Specialty Start Date End Date Gerardo Shah MD PCP - General Internal Medicine 09/30/18 Suzette Strickland MD [address] [facility] [address] [place] [address] Referring Physician Nephrology 02/15/20 Rita Tapia, RN [address] [place], [place] [id number] Registered Nurse Coppersmith Apprentice 02/15/20 documented as of this encounter
--- OUTSIDE RECORDS SUMMARY | 2024-10-16 06:35 | XMS_ITS | Encounter Summary ---
Author Organization [facility] Healthcare Address [address] [place] [address] Care Team Providers Care Photo Print Specialist Name Role Phone Gerardo Shah MD Primary Care Provider [phone] Suzette Strickland MD Unavailable [phone] Rita Tapia RN Unavailable [phone] Encounter Details Date Type Department Care Team (Late st Contact Info) Description 10/06/2024 Documentation [facility] and [facility] Transplant Kidney [phone] [place] [address] Kirstin Simmons Social History Tobacco Use Types Packs/Day Years Used Date Smoking Tobacco: Former Cigarettes 1.5 40 0 04/11/1978 - 2017 Smokeless Tobacco: Never Alcohol Use Standard Drinks/Week Comments Yes 1 (1 standard drink = 0.6 oz pur e alcohol) OCC Sex and Gender Information Value Date Recorded Sex Assigned at Not on file Legal 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 Gender Identity Not on file Sexual Orientation Straight 05/03/2020 10 :36 AM CDT documented as of this encounter Progress Notes * Kirstin Simmons - 10/06/2024 11:03 AM CST Saved the dental clearance to the chart H TOOL MAKER documented in this encounter Plan of Treatment Scheduled Procedures Name Priority Associated Diagnoses Date/Ti me TRANSPLANT KIDNEY ESRD (end stage renal disease) ([facility]) documented as of this encounter Visit Diagnoses Not on filedocumented in this encounter Care Teams Photo Print Specialist Relationship Specialty Start Date End Date Gerardo Shah MD PCP - General Internal Medicine 09/30/18 Suzette Strickland MD [facility] [facility] [address] [place] [address] Referring Physician Nephrology 02/15/20 Rita Tapia, RN [address] [place], [place] [address] Registered Nurse Agile Qa Tester 02/15/20 documented as of this encounter
--- OUTSIDE RECORDS SUMMARY | 2024-10-16 06:35 | XMS_ITS | Encounter Summary ---
Author Organization [facility] Healthcare Address [address] [place] [address] Care Team Providers Care Charge Coordinator Name Role Phone Gerardo Shah MD Primary Care Provider [phone] Suzette Strickland MD Unavailable [phone] Rita Tapia RN Unavailable [phone] Reason for Visit * Reason Onset Date Comments Waitlist Maintenance 01/13/2024 Encounter Details Date Type Department Care Team (Late st Contact Info) Description 01/13/2024 Telephone [facility] and [facility] Transplant Kidney [address] [address] [address] [phone] [place] [address] Rhoda Morejon Waitlist Maintenance Social History Tobacco Use Types Packs/Day Years Used Date Smoking Tobacco: Former Cigarettes 1.5 40 0 04/11/1978 - 2017 Smokeless Tobacco: Never Alcohol Use Standard Drinks/Week Comments Yes 1 (1 standard drink = 0.6 oz pur e alcohol) OCC Sex and Gender Information Value Date Recorded Sex Assigned at Not on file Legal 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 Encouraged patient to contact nurse with any questions. Reviewed the following: Demographics (email, address, phone numbers): No changes Patient contacts: No changes Insurance carriers: Patient confirmed [employer] as primary and Medicare A&B as secondary insurance. I reminded patient of the importance of notifying the transplant center right away of any insurancechanges. Employment status and financial situation: No changes Dialysis: No changes Weight: Patient self reported being 177 pounds. BMI 22.1 Medical issues (hospitalizations, medical conditions, illnesses, infections, procedures, open wounds, new diagnoses, or positive COVID results): Patient stated he is now taking over the counter antiacids Tums as of a month ago. COVID Vaccinations: None reported Social Issues/Questions: None reported Informed patient that I would not be contacting them regularly going forward, and that they should reach out to the transplant center via the main line with any questions or updates. documented in this encounter Plan of Treatment Scheduled Procedures Name Priority Associated Diagnoses Date/Ti me TRANSPLANT KIDNEY ESRD (end stage renal disease) ([facility]) documented as of this encounter Visit Diagnoses Not on filedocumented in this encounter Care Teams Charge Coordinator Relationship Specialty Start Date End Date Gerardo Shah MD PCP - General Internal Medicine 09/30/18 Suzette Strickland MD [address] [facility] [address] [place] [address] Referring Physician Nephrology 02/15/20 Rita Tapia, RN [address] [place] [address] Registered Nurse Cistern Room Operator 02/15/20 documented as of this encounter
--- OUTSIDE RECORDS SUMMARY | 2024-10-16 06:35 | XMS_ITS | Encounter Summary ---
Author Organization [facility] Address [address] [place] [address] Phone Care Team Providers Care Computer Support Technician Name Role Phone Gerardo Shah MD Primary Care Provider [phone] Suzette Strickland MD Unavailable [phone] Rita Tapia RN Unavailable [phone] Reason for Referral * MRI/CAT/PET Scan (Routine) - Authorized Specialty Diagnoses / Procedures Referred By Kishore t Referred To Contact Radiology Diagnoses History of kidney cancer Procedures MRI Abdomen WO Contrast Quique Guzman NP [address] [facility] [place] [address] Phone: tel: fax: [address] [address] Referral ID Status Reason Start Date Expiration Date V isits Requested Visits Authorized [id number] Authorized 09/08/2024 10/08/2025 1 1 ADMINISTRATOR Encounter Details Date Type Department Care Team (Late st Contact Info) Description 09/08/2024 11:40 AM UNIX ADMINISTRATOR Office Visit [facility]) - [facility] Urology [address] [place] [address] Advanced Medicine 11th [place] [address] [place] [address] Quique Guzman NP [address] [place] [address] History of kidney cancer (Primary Dx) Social History Tobacco Use Types Packs/Day Years Used Date Smoking Tobacco: Former Cigarettes 1.5 40 0 04/11/1978 - 2017 Smokeless Tobacco: Never Alcohol Use Standard Drinks/Week Comments Yes 1 (1 standard drink = 0.6 oz pur e alcohol) OCC Sex and Gender Information Value Date Recorded Sex Assigned at Not on file Legal Sex Male 4:54 AM UNIX ADMINISTRATOR Gender Identity Not on file Sexual Orientation Straight 05/03/2020 10 :36 AM CDT documented as of this encounter Progress Notes * Quique Guzman NP - 09/08/2024 11:40 AM CST Urology Note: Appointment with Quique Guzman NP CHIEF COMPLAINT: RCC HISTORY OF PRESNT ILLNESS: 64 y.o. y/o male with history of ADPCKD, on dialysis. Patient Dr. Booker. 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 MRI today showed no evidence of disease recurrence. He denies GH. PHYSICAL EXAM: General: Well-appearing male in no acute distress Radiolgy: MRI abdomen without contrast 09/08/2024 IMPRESSION: 1. Redemonstrated post surgical changes of right nephrectomy without evidence of recurrent disease on this noncontrast enhanced MR. 2. Unchanged findings consistent with polycystic liver and kidney disease. ASSESSMENT/PLAN 64 y.o. y/o male with history of polycystic kidney disease who had a right nephrectomy area with a small focus of papillary RCC in 2019. His MRI today showed no evidence of disease recurrence. Will plan on repeating an MRI next year. That will put him 5 years out and we can stop annual imaging at that time. This note was generated by speech recognition software and may contain homophonic word substitutions or errors, please contact me for any questions. ADMINISTRATOR documented in this encounter Plan of Treatment Scheduled Orders Name Type Priority Associated Diagnoses Orde r Schedule MRI Abdomen WO Contrast Imaging Schedule Routine, Read Routine (OP Routine) History of kidney cancer Expected: 03/08/2025, Expires: 03/08/2026 Scheduled Procedures Name Priority Associated Diagnoses Date/Ti me TRANSPLANT KIDNEY ESRD (end stage renal disease) ([facility]) documented as of this encounter Visit Diagnoses Diagnosis History of kidney cancer- Primary Personal history of malignant neoplasm of kidney documented in this encounter Care Teams Computer Support Technician Relationship Specialty Start Date End Date Gerardo Shah MD PCP - General Internal Medicine 09/30/18 Suzette Strickland MD [facility] [address] [place] [address] Referring Physician Nephrology 02/15/20 Rita Tapia, RN [address] [place] [address] Registered Nurse Storage And Backup Administrator 02/15/20 documented as of this encounter
--- OUTSIDE RECORDS SUMMARY | 2024-10-16 06:35 | XMS_ITS | Encounter Summary ---
Author Organization [facility] Healthcare Address [address] [place] [address] Care Team Providers Care Referral And Information Aide Name Role Phone Gerardo Shah MD Primary Care Provider [phone] Suzette Strickland MD Unavailable [phone] Rita Tapia RN Unavailable [phone] Encounter Details Date Type Department Care Team (Latest Contact Info) Description 03/09/2024 10:00 AM CDT - 03/09/2024 11:59 PM CDT Hospital Encounter [address] [address] 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) (HCC) Discharge Disposition: Discharge to home or self [...] on file 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 Gender Identity Not on file Sexual Orientation [...] TRANSPLANT KIDNEY ESRD (end stage renal disease) ([facility]) documented as of this encounter Procedures Procedure Name Priority Date/Time Associated Diagnosis Comments HLA ANTIBODY SCREEN BY PRA OR SAB PER SCHEDULE (CLASS I AND CLASS II) Routine 03/09/2024 10:00 AM CDT Stage 5 chronic kidney disease on chronic dialysis ([facility]) ([facility]) documented in this encounter Results * HLA Antibody Screen by PRA or SAB per Schedule (Class I and Class II) (03/09/2024 10:00 AM CDT) Blood 03/09/2024 10:0 0 AM CDT Narrative [facility] - DINKEY OPERATOR SLAG Sample received in lab and stored. ??No testing performed at this time. us Perla Valadez MD LAB BLOOD ORDERABLE S Final Result H[facility]OT[facility] documented in this encounter Visit Diagnoses Diagnosis 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) (HCC) documented in this encounter Care Teams Referral And Information Aide Relationship Specialty Start Date End Date Gerardo Shah MD PCP - General Internal Medicine 09/30/18 Suzette Strickland MD [address] [facility] [address] [place] [address] Referring Physician Nephrology 02/15/20 Rita Tapia, RN [address] [place], [place] [id number] Registered Nurse Heavy Forging Machine Operator 02/15/20 documented as of this encounter
--- OUTSIDE RECORDS SUMMARY | 2024-10-16 06:35 | XMS_ITS | Encounter Summary ---
Author Organization [facility] Healthcare Address [address] [place] [address] Care Team Providers Care Dry Starch Supervisor Name Role Phone Gerardo Shah MD Primary Care Provider [phone] Suzette Strickland MD Unavailable [phone] Rita Tapia RN Unavailable [phone] Encounter Details Date Type Department Care Team (Late st Contact Info) Description 11/12/2023 Documentation [facility] Transplant Kidney [address] [address] [address] [phone] [place], [place] [id number] Rita Tapia, RN [address], [place] [id number] Social History Tobacco Use Types Packs/Day Years Used Date Smoking Tobacco: Former Cigarettes 1.5 40 0 04/11/1978 - 2017 Smokeless Tobacco: Never Alcohol Use Standard Drinks/Week Comments Yes 1 (1 standard drink = 0.6 oz pur e alcohol) OCC Sex and Gender Information Value Date Recorded Sex Assigned at Not on file Legal 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 Male 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 Gender Identity Not on file Sexual Orientation Straight 05/03/2020 10 :36 AM CDT documented as of this encounter Plan of Treatment Scheduled Procedures Name Priority Associated Diagnoses Date/Ti me TRANSPLANT KIDNEY ESRD (end stage renal disease) ([facility]) documented as of this encounter Visit Diagnoses Not on filedocumented in this encounter Care Teams Dry Starch Supervisor Relationship Specialty Start Date End Date Gerardo Shah MD PCP - General Internal Medicine 09/30/18 Suzette Strickland MD [address] [facility] [address] [place] [address] Referring Physician Nephrology 02/15/20 Rita Tapia, RN [address] [place] [address] Registered Nurse Carton Folder 02/15/20 documented as of this encounter
--- OUTSIDE RECORDS SUMMARY | 2024-10-16 06:35 | XMS_ITS | Referral Summary ---
Author Organization [facility] [address] Address [address] [place] [address] Care Team Providers Care Manager Development Name Role Phone Gerardo Shah MD Primary Care Provider [phone] Suzette Strickland MD Unavailable [phone] Rita Tapia RN Unavailable [phone] Encounters Date Type Department Care Team Description 10/06/2024 Documentation [facility] Transplant Kidney [address] [facility] [address] [phone] [place] [address] Kirstin Simmons 10/05/2024 Documentation [facility] Transplant Kidney [address] [facility] [address] [id number] [place] [address] Landy Sumner 09/30/2024 Documentation [facility] Transplant Kidney [address] [facility] [address] 90-73-350 [place] [address] Rita Tapia, LEYDI 09/29/2024 Telephone [facility] Transplant Kidney [address] [facility] [address] [id number] [place] [address] Rita Tapia RN 09/21/2024 10:00 AM BROKER ASSISTANT - 09/21/2024 11:59 PM BROKER ASSISTANT Hospital Encounter [facility] [address] [place] [address] ESRD (end stage renal disease) ([facility]) ([facility]) Discharge Disposition: Discharge to home or self care 09/08/2024 8:46 AM BROKER ASSISTANT - 09/08/2024 11:59 PM BROKER ASSISTANT Hospital Encounter [facility] [address] [place] [address] History of kidney cancer Discharge Disposition: Discharge to home or self care 09/08/2024 11:40 AM BROKER ASSISTANT Office Visit [facility] ([facility] - [facility] [address] [facility] 11th [place] [address] [place] [id number] Quique Guzman NP History of kidney cancer (Primary Dx) 08/10/2024 10:00 AM CDT - 08/10/2024 11:59 PM CDT Hospital Encounter [address] [address] ESRD (end stage renal disease) ([facility]) ([facility]) Discharge Disposition: Discharge to home or self care 08/04/2024 Telephone [facility] Transplant Kidney [address] [address] [address] [id number] [place] [address] Rita Tapia RN 08/04/2024 Telephone [facility] Transplant Kidney [address] [place], [place] [address]op [phone] [place] [address] Brittany Markham from Last 3 Months Allergies No known active allergies Medications aspirin 81 mg tabletIndications :Myocardial Reinfarction Prevention Take 1 tablet (81 mg total) by mouth every morning Active cyanocobalamin (Vitamin B-12) 1,000 mcg tabletIndications :Prevention of Vitamin B12 Deficiency Take 1 tablet (1,000 mcg total) by mouth every morning Active acetaminophen 500 mg capsuleIndication s:Pain Take 1 capsule (500 mg total) by mouth every 6 (six) hours as needed for pain for up to 30 doses 30 capsule 0 Active bumetanide (BUMEX) 1 mg tabletIndications :HELP EMPTY BLADDER Take 1 tablet (1 mg total) by mouth every morning 0 Active famotidine (PEPCID) 20 mg tablet Take 2 tablets (40 mg total) by mouth daily Active lidocaine-priloca ine cream 1 Active nitroglycerin (NITROSTAT) 0.[address] 1 tablet (0.4 mg total) under the tongue every 5 (five) minutes as needed for chest pain 30 tablet 3 3 Active amLODIPine (NORVASC) 5 mg tablet TAKE ONE TABLET BY MOUTH EVERY MORNING 90 tablet 2 4 Active isosorbide mononitrate ER (IMDUR) 30 mg 24 hr tablet TAKE ONE TABLET BY MOUTH EVERY MORNING 30 tablet 3 4 Active Active Problems Patient Care Coordination No te Formatting of this note migh t be different from the original. Verbal consent - Meghann Juares Robin Problem Noted Date Diagnosed Date Prinzmetal's angina ([facility]) 03/12/2023 Malignant neoplasm of right kidney 09/07/2021 Gastroesophageal reflux disease 06/08/2021 Hypertension 06/08/2021 Vitamin B12 deficiency 06/08/2021 Kidney disease 09/29/2020 Overview (09/29/2020): Added automatically from request for surgery [id number] Encounter for surgical after care following surgery of circulatory system 09/28/2020 Stage 5 chronic kidney disea se on chronic dialysis ([facility]) 08/04/2020 Overview (08/04/2020): Added automatically from request for surgery [id number] End-stage renal disease (ESRD) ([facility]) 020 Overview (06/22/2020): Added automatically from request for surgery [id number] Autosomal dominant polycystic kidney disease 06/2020 Overview (05/05/2020): Added automatically from request for surgery [id number] Polycystic kidney disease, autosomal dominant Stage 4 chronic kidney disease ([facility]) 020 Pre-transplant evaluation for kidney transplant 04/12/2020 Secondary hyperparathyroidism 04/12/2020 Other chest pain 12/23/2018 End stage renal disease ([facility]) Acute postoperative abdominal pain Resolved Problems Problem Noted Date Diagnosed Date Resolved Date Coronary arteriosclerosis 06/08/2021 Immunizations Name Administration Dates Next Due Hep B Vaccine 01/18/2023,,08/17/2022,07/20,06/16/2021,02/17/2021,01/13/2021 ,12/16/2020 Influenza, Quadrivalent, Spl it, Intramuscular 07/28/2019 Social History Tobacco Use Types Packs/Day Years Used Date Smoking Tobacco: Former Cigarettes 1.5 40 0 04/11/1978 - 2017 Smokeless Tobacco: Never Tobacco Cessation:Counseling Given: Not Answered Alcohol Use Standard Drinks/Week Comments Yes 1 (1 standard drink = 0.6 oz pur e alcohol) OCC Sex and Gender Information Value Date Recorded Sex Assigned at Not on file Legal Sex Male 4:54 AM BROKER ASSISTANT Gender Identity Not on file Sexual Orientation Straight 05/03/2020 10 :36 AM CDT Last Filed Vital Signs Vital Sign Reading Time Taken Comments Blood Pressure 100/60 03/24/2024 8:34 AM CDT Pulse 62 03/24/2024 8:34 AM CDT Temperature 36.3 ??C (97.4 ??F) 09/07/2021 1:21 PM CS T Respiratory Rate 16 10/12/2020 1:20 PM BROKER ASSISTANT Oxygen Saturation 96% 03/24/2024 8:34 AM CDT Inhaled Oxygen Concentration - - Weight 81.5 kg (179 lb 10.8 oz) 10/05/2024 1:31 PM BROKER ASSISTANT Height 190.5 cm (6' 3 ) 03/24/2024 8:34 AM CDT Body Mass Index 22.46 03/24/2024 8:34 AM CDT Plan of Treatment Scheduled Procedures Name Priority Associated Diagnoses Date/Ti me TRANSPLANT KIDNEY ESRD (end stage renal disease) ([facility]) Procedures Procedure Name Priority Date/Time Associated Diagnosis Comments HLA ANTIBODY SCREEN BY PRA OR SAB PER SCHEDULE (CLASS I AND CLASS II) Routine 09/21/2024 10:00 AM BROKER ASSISTANT ESRD (end stage renal disease) (CMS/HCC) (HCC) MRI ABDOMEN KIDNEY WO CONTRAST Schedule Routine, Read Routine (OP Routine) 09/08/2024 9:58 AM BROKER ASSISTANT History of kidney cancer HLA ANTIBODY SCREEN - SAB (CLASS I AND CLASS II) Routine 08/10/2024 10:00 AM CDT ESRD (end stage renal disease) (CMS/HCC) (HCC) HLA ANTIBODY SCREEN BY PRA OR SAB PER SCHEDULE (CLASS I AND CLASS II) Routine 08/10/2024 10:00 AM CDT ESRD (end stage renal disease) (CMS/HCC) (HCC) HEPATITIS C ANTIBODY Routine 11/08/2022 8:15 AM BROKER ASSISTANT 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) (HCC) PSA SCREEN Routine 11/08/2022 8:15 AM BROKER ASSISTANT 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) (HCC) from Last 3 Months or Most Recently Relevant to Health Maintenance Results * HLA Antibody Screen by PRA or SAB per Schedule (Class I and Class II) (09/21/2024 10:00 AM BROKER ASSISTANT) Blood 09/21/2024 10:0 0 AM BROKER ASSISTANT Narrative HISTOTRAC - BROKER ASSISTANT Sample received in lab and stored. ??No testing performed at this time. us Alonso Pruitt MD LAB BLOOD ORDERABLES Final Resu lt HISTOTRAC * MRI Abdomen Kidney WO Contrast (09/08/2024 9:58 AM BROKER ASSISTANT) Anatomical Region Laterality Modality Body N/A Magnetic Resonan ce 09/08/2024 1:14 PM BROKER ASSISTANT Impressions 09/08/2024 1:25 PM BROKER ASSISTANT 1. ??Redemonstrated post surgical changes of right nephrectomy without evidence of recurrent disease on this noncontrast enhanced MR. 2. ??Unchanged findings consistent with polycystic liver and kidney disease. Dictated by: Cynthia Aguilar MD The radiology attending physician has personally reviewed this study, and had reviewed and/or edited this written report and agrees with it. Electronically signed by: Donaldo Moya M.D. 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 Protocol: Kidney COMPARISON: 09/10/2023 FINDINGS: Liver: Diffuse iron deposition. ??No hepatic steatosis. - Bile ducts: No intra or extrahepatic biliary ductal dilatation. - Focal liver lesions: Multiple scattered cysts are redemonstrated throughout the liver. Gallbladder: Normal Pancreas: Normal. ??The main pancreatic duct is normal in caliber. Spleen: Diffuse iron deposition. ??Normal in size. Adrenals: Normal Kidneys: Status post right nephrectomy. ??The left kidney is largely replaced by cysts, some of which are hemorrhagic. ??No hydronephrosis. Other Findings: No large nodules or masses within the imaged lung bases. ??No suspicious osseous lesions. ??No suspicious abdominal adenopathy. 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 Protocol: Kidney COMPARISON: 09/10/2023 FINDINGS: Liver: Diffuse iron deposition. No hepatic steatosis. - Bile ducts: No intra or extrahepatic biliary ductal dilatation. - Focal liver lesions: Multiple scattered cysts are redemonstrated throughout the liver. Gallbladder: Normal Pancreas: Normal. The main pancreatic duct is normal in caliber. Spleen: Diffuse iron deposition. Normal in size. Adrenals: Normal Kidneys: Status post right nephrectomy. The left kidney is largely replaced by cysts, some of which are hemorrhagic. No hydronephrosis. Other Findings: No large nodules or masses within the imaged lung bases. No suspicious osseous lesions. No suspicious abdominal adenopathy. IMPRESSION: 1. Redemonstrated post surgical changes of right nephrectomy without evidence of recurrent disease on this noncontrast enhanced MR. 2. Unchanged findings consistent with polycystic liver and kidney disease. Dictated by: Cynthia Aguilar MD The radiology attending physician has personally reviewed this study, and had reviewed and/or edited this written report and agrees with it. Electronically signed by: Donaldo Moya M.D. Quique Knox Megan STONE SPREADER OPERATOR IMG MRI PROCEDURES Fin al Result * HLA Antibody Screen by PRA or SAB per Schedule (Class I and Class II) (08/10/2024 10:00 AM CDT) Blood 08/10/2024 10:0 0 AM CDT Narrative HISTOTRAC - BROKER ASSISTANT Sample received in lab. ??Single Antigen Antibody Screen ordered. Alonso Pruitt MD LAB BLOOD ORDERABLES Final Resu lt HISTOTRAC * HLA Antibody Screen - SAB (Class [...] a method developed and validated by the [facility] HLA laboratory based on an FDA-approved IVD kit (LABScreen Single-Antigen, [employer], [place], [place]). All patient serum samples are pretreated with EDTA before the screen to prevent complement interference. Additional serum treatments, such as adsorption and DTT treatment, may be performed as indicated. ??Interpretive comments: Low risk: MFI [id number]. Moderate risk: MFI [id number]. Increased risk: MFI >/= 5000. The presence [...] antigens to avoid. Testing performed at the [facility], [address] [place] [address], 5th floor, [place], [address]. [place] # [id number]. Harman Flores M.D., Ph.D., HLA Transfer Coordinator Aviva Conway, Ph.D., Fixing Machine Operator, [facility] Current methodology and interpretive comments last revised on 11/22/2022. us Alonso Pruitt MD LAB BLOOD ORDERABLES Final Resu lt HISTOTRAC * PSA screen (11/08/2022 8:15 AM BROKER ASSISTANT) PSA-Total 0.93 <=5.40 ng/mL [facility] Comment: Interpretive Data ?AGE ? SEX ?REFERENCE INTERVAL 0 minutes-150 years ?Female ?None 0 minutes-49 years ? Male ?None ? 50-59 years ? Male ?0-3.90 ? 60-69 years ? Male ?0-5.40 ? 70-79 years ? Male ?0-6.20 ? 80-150 years ?Male ?0-6.20 The Kenn PSA Total assay procedure was used. Results from different manufacturers or methods may not be comparable. Serial testing should be performed using the same method. Current interpretive data last revised 22. Blood 11/08/2022 8:15 AM BROKER ASSISTANT 11/08/2022 8:57 AM BROKER ASSISTANT us Perla Valadez MD LAB BLOOD ORDERABLE S Final Result Performing Organization Address [facility] [place] [facility] de Phone Number [facility] [place] [address] * Hepatitis C antibody (11/08/2022 8:15 AM BROKER ASSISTANT) Hep C Ab Nonreactive Nonreactive [facility] Comment:Antibodies to HCV no t detected. Does NOT exclude the possibility of recent exposure to HCV. Current interpretive data was last revised on 22 Blood 11/08/2022 8:15 AM BROKER ASSISTANT 11/08/2022 8:57 AM BROKER ASSISTANT Perla Valadez MD LAB MICROBIOLOGY - GENERAL ORDERABLES Final Result Performing Organization Address City/[facility] Co de Phone Number [facility] [place] [address] from Last 3 Months or Most Recently Relevant to Health Maintenance Insurance [facility] HMO/PPO Address: [facility] [address] [place] [address] MEDICARE [facility] HMO/PPO Address: [address] [address] [place] [address] MEDICARE [facility] HMO/PPO Address: [address] [address] [place] [address] MEDICARE [facility] HMO/PPO Address: [address] [address] [place] [address] MEDICARE Advance Directives For more information, please contact: [phone] * Full Code (Latest Code Status on File) Date Activated Date Inactivated Comments 07/03/2020 3:51 PM 07/07/2020 4:44 PM * Full Code Date Activated Date Inactivated Comments 06/14/2020 5:08 PM 06/18/2020 10:40 PM Care Teams Manager Development Relationship Specialty Start Date End Date Gerardo Shah MD PCP - General Internal Medicine 09/30/18 Suzette Strickland MD [address] [facility] [address] [place] [address] Referring Physician Nephrology 02/15/20 Rita Tapia, RN [address] [place] [address] Registered Nurse Teacher Music 02/15/20
--- OUTSIDE RECORDS SUMMARY | 2024-10-16 06:35 | XMS_ITS | Encounter Summary ---
Author Organization [facility] Healthcare Address [address] [place] [address] Care Team Providers Care Corrections Unit Supervisor Name Role Phone Gerardo Shah MD Primary Care Provider [phone] Suzette Strickland MD Unavailable [phone] Rita Tapia RN Unavailable [phone] Encounter Details Date Type Department Care Team (Late st Contact Info) Description 08/04/2024 Telephone 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 documented in this encounter Plan of Treatment Scheduled Procedures Name Priority Associated Diagnoses Date/Ti me TRANSPLANT KIDNEY ESRD (end stage renal disease) ([facility]) documented as of this encounter Visit Diagnoses Not on filedocumented in this encounter Care Teams Corrections Unit Supervisor Relationship Specialty Start Date End Date Gerardo Shah MD PCP - General Internal Medicine 09/30/18 Suzette Strickland MD [address] [facility] [address] [address] Referring Physician Nephrology 02/15/20 Rita Tapia, RN [address] [place], [place] [id number] Registered Nurse Financial Services Auditor 02/15/20 documented as of this encounter
--- OUTSIDE RECORDS SUMMARY | 2024-10-16 06:35 | XMS_ITS | Encounter Summary ---
Author Organization [facility] Healthcare Address [address] [place] [address] Care Team Providers Care Seater Assembler Name Role Phone Gerardo Shah MD Primary Care Provider [phone] Suzette Strickland MD Unavailable [phone] Rita Tapia RN Unavailable [phone] Reason for Visit * Reason Comments Follow-up 1 year follow up. Encounter Details Date Type Department Care Team (Late st Contact Info) Description 03/24/2024 8:45 AM CDT Office Visit [facility] Cardiology [address] [id number] Donaldo Tee MD [address] [id number] Prinzmetal's angina (CMS/HCC) (HCC) (Primary Dx); Lipid screening Social History Tobacco Use Types Packs/Day Years Used Date Smoking Tobacco: Former Cigarettes 1.5 40 0 04/11/1978 - 2017 Smokeless Tobacco: Never Alcohol Use Standard Drinks/Week Comments Yes 1 (1 standard drink = 0.6 oz pur e alcohol) OCC Sex and Gender Information Value Date Recorded Sex Assigned at Not on file 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 Gender Identity Not on file Sexual Orientation Straight 05/03/2020 10 :36 AM CDT documented as of this encounter Last Filed Vital Signs Vital Sign Reading Time Taken Comments Blood Pressure 100/60 03/24/2024 8:34 AM CDT Pulse 62 03/24/2024 8:34 AM CDT Temperature - - Respiratory Rate - - Oxygen Saturation 96% 03/24/2024 8:34 AM CDT Inhaled Oxygen Concentration - - Weight 82.2 kg (181 lb 3.2 oz) 03/24/2024 8:34 A M CDT Height 190.5 cm (6' 3 ) 03/24/2024 8:34 AM CDT Body Mass Index 22.65 03/24/2024 8:34 AM CDT documented in this encounter Progress Notes * Donaldo Tee MD - 03/24/2024 8:45 AM CDT [facility] FOLLOW UP 03/24/2024 Abel Browne is a 64 y.o. male who presents for follow up of presumed history of coronary spasm. The patient was seen by myself I believe in September of 2018 with some chest pain. He was having episodes that were concerning for the possibility of myocardial ischemia and was brought for coronary angiography. The angiograms demonstrated completely normal appearing coronary arteries although there was some hypokinesia of the anteroapical wall and it was presumed therefore the might of hada coronary spasm event in the distribution of his LAD. For this calcium channel kathryn treatment was recommended and he has done well. He was hospitalized again in October of 2018 with some chest pain that recurred his ECG was unremarkable and his truck troponin levels were negative I did not see any need for further cardiac investigation at that time. The patient also has chronic kidney diseasehas been found to have polycystic kidney disease which is autosomal dominant his mother had the same disease. In 2019 he underwent a right nephrectomy to treat a renal cell carcinoma. He was undergoing a transplant workup at [place] and a stress echocardiogram was done which was a negative exam as expected since he is not known to have any coronary disease. His renal disease has progressed to end-stage renal disease requiring hemodialysis 3 times per week. Once again in April of 2023 he underwentyet another coronary angiogram to investigate chest pain and a modest troponin rise and once again was not found to have any coronary disease. He returns to the office today for scheduled six-month appointment. He has not having any specific cardiac symptoms he wanted to discuss with me for awhile trouble that he is having with hypotension that results in some difficulty with him getting dialyzed. REVIEW OF SYSTEMS General ROS: negative for - chills, fatigue, fever, malaise, night sweats, weight gain or weight loss Psychological ROS: negative for - anxiety, depression, memory difficulties or sleep disturbances Ophthalmic ROS: negative for - blurry vision, decreased vision, loss of vision or scotomata ENT ROS: negative for - epistaxis, headaches, hearing change, nasal congestion, nasal discharge, sore throat, vertigo or visual changes Hematological and Lymphatic ROS: negative for - bleeding problems, blood clots, bruising, fatigue or weight loss Endocrine ROS: negative for - hot flashes, palpitations, polydipsia/polyuria or unexpected weight changes Respiratory ROS: negative for - cough, hemoptysis, orthopnea, shortness of breath, tachypnea or wheezing Cardiovascular ROS: negative for - chest pain, dyspnea on exertion, edema, irregular heartbeat, loss of consciousness, murmur, orthopnea, palpitations, paroxysmal nocturnal dyspnea, rapid heart rate or shortness of breath Gastrointestinal ROS: negative for - abdominal pain, appetite loss, blood in stools, constipation, diarrhea, gas/bloating, heartburn, hematemesis, melena or nausea/vomiting Genito-Urinary ROS: negative for - dysuria, erectile dysfunction or hematuria Musculoskeletal ROS: negative for - joint pain, muscle pain or muscular weakness Dermatological ROS: negative for dry skin, eczema, pruritus and rash HOME MEDICATIONS Current Outpatient Medications: acetaminophen 500 mg capsule, Take 1 capsule (500 mg total) by mouth every 6 (six) hours as needed for pain for up to 30 doses, Disp: 30 capsule, Rfl: 0 amLODIPine (NORVASC) 5 mg tablet, TAKE ONE TABLET BY MOUTH EVERY MORNING, Disp: 90 tablet, Rfl: 2 aspirin 81 mg tablet, Take 1 tablet (81 mg total) by mouth every morning, Disp: , Rfl: bumetanide (BUMEX) 1 mg tablet, Take 1 tablet (1 mg total) by mouth every morning, Disp: , Rfl: cyanocobalamin (Vitamin B-12) 1,000 mcg tablet, Take 1 tablet (1,000 mcg total) by mouth every morning, Disp: , Rfl: famotidine (PEPCID) 20 mg tablet, Take 2 tablets (40 mg total) by mouth daily, Disp: , Rfl: isosorbide mononitrate ER (IMDUR) 30 mg 24 hr tablet, TAKE ONE TABLET BY MOUTH EVERY MORNING, Disp:30 tablet, Rfl: 3 lidocaine-prilocaine cream, , Disp: , Rfl: metoprolol tartrate (LOPRESSOR) 25 mg immediate release tablet, TAKE ONE TABLET BY MOUTH TWICE A DAY, Disp: 180 tablet, Rfl: 2 nitroglycerin (NITROSTAT) 0.4 mg SL tablet, Place 1 tablet (0.4 mg total) under the tongue every 5 (five) minutes as needed for chest pain, Disp: 30 tablet, Rfl: 3 LABS AND OTHER DIAGNOSTIC TESTS Lab Results Component Value Date CHOL 161 04/04/2020 Lab Results Component Value Date HDL 38 (L) 04/04/2020 Lab Results Component Value Date LDLCALC 94 04/04/2020 Lab Results Component Value Date TRIG 147 04/04/2020 Lab Results Component Value Date CHOLHDL 4 04/04/2020 Lab Results Component Value Date WBC 7.4 11/08/2022 HGB 12.1 (L) 11/08/2022 HCT 38.1 (L) 11/08/2022 MCV 103.8 (H) 11/08/2022 No lab exists for component: LABALBU PHYSICAL EXAM Vitals BP 100/60 (BP Location: Left arm, Patient Position: Sitting) Pulse 62 Ht 190.5 cm (6' 3 ) Wt 82.2 kg (181 lb 3.2 oz) SpO2 96% BMI 22.65 kg/m?? Physical Examination: General appearance - alert, well appearing, and in no distress, oriented to person, place, and time and acyanotic, in no respiratory distress Mental status - affect appropriate to mood Eyes - extraocular eye movements intact, sclera anicteric, no pallor Ears - external earsappear normal, hearing grossly normal bilaterally Nose - normal and patent, no erythema or discharge Mouth - mucous membranes moist, pharynx appears normal, dental hygiene good and tongue normal Neck - supple, no significant neck masses, carotids upstroke normal bilaterally, no bruits, no JVD Chest - clear to auscultation, no wheezes, rales or rhonchi, symmetric air entry, no tachypnea, retractions or cyanosis Heart - normal rate, regular rhythm, normal S1, S2, no murmurs, rubs, clicks or gallops, no JVD Abdomen - soft, nontender, nondistended, no masses or organomegaly bowel sounds normal Neurological - alert, oriented, normal speech, no focal findings or movement disorder noted Musculoskeletal - no joint tenderness, deformity or swelling, no muscular tenderness noted Extremities - peripheral pulses normal, no pedal edema, no clubbing or cyanosis Skin - normal coloration and turgor, no rashes, no suspicious skin lesions noted ASSESSMENT Abel Higginbotham was seen today for follow-up. Diagnoses and all orders for this visit: Prinzmetal's angina ([facility]) ([facility]) Lipid screening - POCT lipid panel PLAN/RECOMMENDATIONS Discontinue metoprolol Try to continue the low doses of amlodipine and isosorbide given his diagnosis of Prinzmetal's angina Follow-up 6 months or p.r.n. Donaldo Tee MD documented in this encounter Plan of Treatment Scheduled Procedures Name Priority Associated Diagnoses Date/Ti me TRANSPLANT KIDNEY ESRD (end stage renal disease) ([facility]) documented as of this encounter Procedures Procedure Name Priority Date/Time Associated Diagnosis Comments POCT LIPID PANEL Routine 03/24/2024 8:36 AM CDT Lipid screening documented in this encounter Results * POCT lipid panel (03/24/2024 8:36 AM CDT) Cholesterol, POC 120 mg/dL HDL, POC 38 mg/dL Triglycerides, POC 111 mg/dL LDL Cholesterol POC 59 mg/dL Chol/HDL Ratio, POC 1.6 Non-HDL Cholesterol, POC 81 mg/dL Cholesterol Total, POC 120 mg/dL Capillary blood 03/24/2024 8 :36 AM CDT Donaldo Tee MD POINT OF CARE TEST ORDER SARITHA Edited Result - Final documented in this encounter Visit Diagnoses Diagnosis Prinzmetal's angina ([facility]/HCC) ([facility])- Primary Prinzmetal angina Lipid screening Screening for lipoid disorders documented in this encounter Discontinued Medications Medication Sig Discontinue Reason Start Date End Da te metoprolol tartrate (LOPRESSOR) 25 mg immediate release tablet TAKE ONE TABLET BY MOUTH TWICE A DAY 05/22/2023 03/24/2024 documented as of this encounter Care Teams Seater Assembler Relationship Specialty Start Date End Date Gerardo Shah MD PCP - General Internal Medicine 09/30/18 Suzette Strickland MD [address] [facility] [address] [place] [address] Referring Physician Nephrology 02/15/20 Rita Tapia, RN [address] [place], [place] [id number] Registered Nurse Cytology Manager 02/15/20 documented as of this encounter
--- OUTSIDE RECORDS SUMMARY | 2024-10-16 06:35 | XMS_ITS | Encounter Summary ---
Author Organization [facility] Healthcare Address [address] [place] [address] Care Team Providers Care Scrub Nurse Name Role Phone Gerardo Shah MD Primary Care Provider [phone] Suzette Strickland MD Unavailable [phone] Rita Tapia RN Unavailable [phone] Encounter Details Date Type Department Care Team (Latest Contact Info) Description 11/20/2023 10:00 AM INHALATION THERAPY AIDE - 11/20/2023 11:59 PM INHALATION THERAPY AIDE Hospital Encounter [address] [address] 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) ([facility]) Discharge Disposition: Discharge to home or [...] on file Legal Sex Male 4:54 AM INHALATION THERAPY AIDE Gender Identity Not on file Sexual Orientation [...] TRANSPLANT KIDNEY ESRD (end stage renal disease) ([facility]) documented as of this encounter Procedures Procedure Name Priority Date/Time Associated Diagnosis Comments HLA ANTIBODY SCREEN BY PRA OR SAB PER SCHEDULE (CLASS I AND CLASS II) Routine 11/20/2023 10:00 AM INHALATION THERAPY AIDE Stage 5 chronic kidney disease on chronic dialysis ([facility]) ([facility]) HLA ANTIBODY SCREEN - SAB (CLASS I AND CLASS II) Routine 11/20/2023 10:00 AM INHALATION THERAPY AIDE Stage 5 chronic kidney disease on chronic dialysis ([facility]) ([facility]) documented in this encounter Results * HLA Antibody Screen - SAB (Class I and Class II) (11/20/2023 10:00 AM INHALATION THERAPY AIDE) Class I Treatment EDTA [facility] Class I Dilution 1:1 [facility] Class I Tested Date 11/23/2023 [facility] Class I Result Negative [facility] Class I CPRA 0 [facility] Class I Low Risk A34 [facility] Class II Treatment EDTA [facility] Class II Dilution 1:1 [facility] Class II Tested Date 11/23/2023 [facility] Class II Result Negative [facility] Class II CPRA 0 [facility] Class II Low Risk DQ7; DPB1*01:01, DPB1*11:01 [facility] 11/20/2023 10:0 0 AM INHALATION THERAPY AIDE 11/25/2023 9:57 AM INHALATION THERAPY AIDE Narrative [facility] - 11/25/2023 9:57 AM INHALATION THERAPY AIDE Single-antigen HLA antibody screen is performed on serum samples using a method developed and validated by the [facility] HLA laboratory based on an FDA-approved IVD kit (LABScreen Single-Antigen, [employer] Concierge, [facility] [place]). All patient serum samples are pretreated with EDTA before the screen to prevent complement interference. Additional serum treatments, such as adsorption and DTT treatment, may be performed as indicated. ??Interpretive comments: Low risk: MFI [id number]. Moderate risk: MFI 6514-9914. Increased risk: MFI >/= 5000. The presence [...] antigens to avoid. Testing performed at the [facility], [facility] [address], [address]th floor, [place], [address]. [place] # [id number]. Macie Vizcaino M.D., Associate HLA Automobile Washer Steam Harman Flores M.D., Ph.D., HLA Automobile Washer Steam Aviva Conway, Ph.D., Natural Gas Field Processing Supervisor, [facility] Current methodology and interpretive comments last revised on 11/22/2022. us Perla Valadez MD LAB BLOOD ORDERABLE S Final Result Performing Organization Address City/[facility]/ZIP Co de Phone Number [facility] * HLA Antibody Screen by PRA or SAB per Schedule (Class I and Class II) (11/20/2023 10:00 AM INHALATION THERAPY AIDE) Blood 11/20/2023 10:0 0 AM INHALATION THERAPY AIDE Narrative [facility] - INHALATION THERAPY AIDE Sample received in lab. ??Single Antigen Antibody Screen ordered. us Perla Valadez MD LAB BLOOD ORDERABLE S Final Result [facility] documented in this encounter Visit Diagnoses Diagnosis 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) (HCC) documented in this encounter Care Teams Scrub Nurse Relationship Specialty Start Date End Date Gerardo Shah MD PCP - General Internal Medicine 09/30/18 Suzette Strickland MD [address] [facility] [address] [place] [address] Referring Physician Nephrology 02/15/20 Rita Tapia, RN [address] [place] [address] Registered Nurse Water Treatment Plant Repairer 02/15/20 documented as of this encounter
--- OUTSIDE RECORDS SUMMARY | 2024-10-16 06:35 | XMS_ITS | Encounter Summary ---
Author Organization [facility] Healthcare Address [address] [place] [address] Care Team Providers Care Senior Contracts Administrator Name Role Phone Gerardo Shah MD Primary Care Provider [phone] Suzette Strickland MD Unavailable [phone] Rita Tapia RN Unavailable [phone] Reason for Referral * MRI/CAT/PET Scan (Routine) - Closed Specialty Diagnoses / Procedures Referred By Contac t Referred To Contact Radiology Diagnoses History of kidney cancer Procedures MRI Abdomen Kidney WO Contrast Quique Guzman NP [address] [facility] [place] [address] Phone: tel: fax: [facility] [address] [place] [address] Referral ID Status Reason Start Date Expiration Date Visits Re quested Visits Authorized [id number] Closed 09/10/2023 10/09/2024 1 1 ICAL OPERATIONS SPECIALIST Reason for Visit * MRI/CAT/PET Scan (Routine) - Closed Specialty Diagnoses / Procedures Referred By Contac t Referred To Contact Radiology Diagnoses History of kidney cancer Procedures MRI Abdomen Kidney WO Contrast Quique Guzman NP [address] [facility] [place] [address] Phone: tel: fax: [address] [address] Referral ID Status Reason Start Date Expiration Date Visits Re quested Visits Authorized [id number] Closed 09/10/2023 10/09/2024 1 1 Encounter Details Date Type Department Care Team (Latest Contact Info) Description 09/08/2024 8:46 AM CHEMICAL OPERATIONS SPECIALIST - 09/08/2024 11:59 PM CHEMICAL OPERATIONS SPECIALIST Hospital Encounter [facility] [address] [place] [address] History of kidney cancer Discharge Disposition: Discharge [...] on file Legal Sex Male 4:54 AM CHEMICAL OPERATIONS SPECIALIST Gender Identity Not on file Sexual Orientation [...] Procedure Name Priority Date/Time Associated Diagnosis Comments MRI ABDOMEN KIDNEY WO CONTRAST Schedule Routine, Read Routine (OP Routine) 09/08/2024 9:58 AM CHEMICAL OPERATIONS SPECIALIST History of kidney cancer documented in this encounter Results * MRI Abdomen Kidney WO Contrast (09/08/2024 9:58 AM CHEMICAL OPERATIONS SPECIALIST) Anatomical Region Laterality Modality Body N/A Magnetic Resonan ce 09/08/2024 1:14 PM CHEMICAL OPERATIONS SPECIALIST Impressions 09/08/2024 1:25 PM CHEMICAL OPERATIONS SPECIALIST 1. ??Redemonstrated post surgical changes of right nephrectomy without evidence of recurrent disease on this noncontrast enhanced MR. 2. ??Unchanged findings consistent with polycystic liver and kidney disease. Dictated by: Cynthia Aguilar MD The radiology attending physician has personally reviewed this study, and had reviewed and/or edited this written report and agrees with it. Electronically signed by: Donaldo Myoa M.D. Narrative 09/08/2024 1:25 PM CHEMICAL OPERATIONS SPECIALIST EXAMINATION: MAGNETIC RESONANCE IMAGING OF THE ABDOMEN [...] lesions. ??No suspicious abdominal adenopathy. Procedure Note Donadlo Moya MD PhD - 09/08/2024 EXAMINATION: MAGNETIC [...] Electronically signed by: Donaldo Moya M.D. Quique Guzman [facility] MRI PROCEDURES Fin al Result documented in this encounter Visit Diagnoses Diagnosis History of kidney cancer Personal history of malignant neoplasm of kidney documented in this encounter Care Teams Senior Contracts Administrator Relationship Specialty Start Date End Date Gerardo Shah MD PCP - General Internal Medicine 09/30/18 Suzette Strickland MD [address] [facility] [address] [place] [address] Referring Physician Nephrology 02/15/20 Rita Tapia, RN [address] [place] [address] Registered Nurse Screen Tender 02/15/20 documented as of this encounter
--- OUTSIDE RECORDS SUMMARY | 2024-10-16 06:35 | XMS_ITS | Clinical Summary ---
Author Organization [facility] [place] [address] Address [address] [place] [address] Care Team Providers Care Fire Management Officer Name Role Phone Gerardo Shah MD Primary Care Provider [phone] Suzette Strickland MD Unavailable [phone] Rita Tapia RN Unavailable [phone] Allergies No known active allergies Medications aspirin [...] Problem Noted Date Diagnosed Date Prinzmetal's angina ([facility]) 03/12/2023 Malignant neoplasm of right kidney 09/07/2021 Gastroesophageal reflux disease 06/08/2021 Hypertension 06/08/2021 Vitamin B12 deficiency 06/08/2021 Kidney disease 09/29/2020 Overview (09/29/2020): Added automatically from request for surgery [id number] Encounter for surgical after care following surgery of circulatory system 09/28/2020 Stage 5 chronic kidney disea se on chronic dialysis ([facility]) 08/04/2020 Overview (08/04/2020): Added automatically from request for surgery [id number] End-stage renal disease (ESRD) ([facility]) 020 Overview (06/22/2020): Added automatically from request for surgery [id number] Autosomal dominant polycystic kidney disease 06/2020 Overview (05/05/2020): Added automatically from request for surgery [id number] Polycystic kidney disease, autosomal dominant Stage 4 chronic kidney disease ([facility]) 020 Pre-transplant evaluation for kidney transplant 04/12/2020 Secondary hyperparathyroidism 04/12/2020 Other chest pain 12/23/2018 End stage renal disease ([facility]) Acute postoperative abdominal pain Resolved Problems Problem Noted Date Diagnosed Date Resolved Date Coronary arteriosclerosis 06/08/2021 Encounters Date Type Department Care Team Description 10/06/2024 Documentation [facility] Transplant Kidney [address] [address] Mailstop [phone] [place] [address] Kirstin Chisholm 10/05/2024 Documentation [facility] Transplant Kidney [address] [facility] [address] Mail[address] [phone] [place] [address] Landy Sumner 09/30/2024 Documentation [facility] Transplant Kidney [address] [facility] [address] Mailstop [phone] [place] [address] Rita Tapia, RN 09/29/2024 Telephone [facility] Transplant Kidney [address] [facility] [address] Mailstop [phone] [place] [address] Rita Tapia, RN 09/21/2024 10:00 AM ELECTROTYPE FINISHER - 09/21/2024 11:59 PM ELECTROTYPE FINISHER Hospital Encounter [address] [address] ESRD (end stage renal disease) (CMS/HCC) (HCC) Discharge Disposition: Discharge to home or self care 09/08/2024 11:40 AM ELECTROTYPE FINISHER Office Visit [facility] - [facility] Urology [address] [facility] 11th [place] [address] [place] [address] Quique Guzman NP History of kidney cancer (Primary Dx) 09/08/2024 8:46 AM ELECTROTYPE FINISHER - 09/08/2024 11:59 PM ELECTROTYPE FINISHER Hospital Encounter [facility] Radiology [facility] [address] [place] [address] History of kidney cancer Discharge Disposition: Discharge to home or self care 08/10/2024 10:00 AM CDT - 08/10/2024 11:59 PM CDT Hospital Encounter [address] [address] ESRD (end stage renal disease) (CMS/HCC) (HCC) Discharge Disposition: Discharge to home or self care 08/04/2024 Telephone [facility] Transplant Kidney [address] [facility] [address] Mailstop [phone] [place] [address] Rita Tapia RN 08/04/2024 Telephone [facility] Transplant Kidney [address] [facility] [address] Mailstop [phone] [place] [address] Brittany Markham from Last 3 Months Immunizations Name Administration Dates Next Due Hep B Vaccine 01/18/2023, 2,08/17/2022,07/20,06/16/2021,02/17/2021,01/13/2021 ,12/16/2020 Influenza, Quadrivalent, Spl it, Intramuscular 07/28/2019 Surgical History Surgery Date Site/Laterality Comments OTHER SURGICAL HISTORY 10/28/1972 - 10/27/1973 Ureteral surgery COLONOSCOPY 03/28/2020 - 04/26/2020 NEPHRECTOMY 05/28/2020 - 06/27/2020 CARDIAC CATHETERIZATION 10/28/2018 - 10/27/2019 Medical History Medical History Date Comments Heart attack (HCC) 09/2018 Asthma Pneumonia Arthritis Polycystic kidney disease Hiatal hernia GERD (gastroesophageal reflux disease) Anemia of chronic disease CKD (chronic kidney disease) PONV (postoperative nausea and vomiting) COPD (chronic obstructive pulmonary disease) (HC C) mild Bradycardia Family History Medical History Relation Name Comments Cancer Father Aneurysm Mother Kidney disease Mother Kidney disease Sister 1 PONV Sister 1 Anesthesia problems Neg Hx Relation Name Status Comments Father (Age 70) Mother (Age 69) Sister 1 Alive Sister 2 Alive Social History Tobacco Use Types Packs/Day Years Used Date Smoking Tobacco: Former Cigarettes 1.5 40 0 04/11/1978 - 2017 Smokeless Tobacco: Never Tobacco Cessation:Counseling Given: Not Answered Alcohol Use Standard Drinks/Week Comments Yes 1 (1 standard drink = 0.6 oz pur e alcohol) OCC Sex and Gender Information Value Date Recorded Sex Assigned at Not on file Legal Sex Male 4:54 AM ELECTROTYPE FINISHER Gender Identity Not on file Sexual Orientation Straight 05/03/2020 10 :36 AM CDT Obstetrics History Last Filed Vital Signs Vital Sign Reading Time Taken Comments Blood Pressure 100/60 03/24/2024 8:34 AM CDT Pulse 62 03/24/2024 8:34 AM CDT Temperature 36.3 ??C (97.4 ??F) 09/07/2021 1:21 PM CS T Respiratory Rate 16 10/12/2020 1:20 PM ELECTROTYPE FINISHER Oxygen Saturation 96% 03/24/2024 8:34 AM CDT Inhaled Oxygen Concentration - - Weight 81.5 kg (179 lb 10.8 oz) 10/05/2024 1:31 PM ELECTROTYPE FINISHER Height 190.5 cm (6' 3 ) 03/24/2024 8:34 AM CDT Body Mass Index 22.46 03/24/2024 8:34 AM CDT Plan of Treatment Scheduled Procedures Name Priority Associated Diagnoses Date/Ti me TRANSPLANT KIDNEY ESRD (end stage renal disease) (CMS/HCC) Health Maintenance Due Date Last Done Comments Colon Cancer Screening-Colonoscopy 1960 Depression Screening 1960 DTaP/Tdap/Td Vaccine (1 - Tdap) 02/20/1971 Regular Well Visit/Exam 18-64 02/20/1978 Lung Cancer Screening 02/20/2010 Zoster Vaccine (1 of 2) 02/20/2010 Influenza Vaccine (#1) 2024 07/28/2019 Prostate Cancer Screening-PSA 11/08/2024, 06/08/2021 Hepatitis C Screening Completed 11/08/2022 , 06/08/2021, 04/04/2020 Pneumococcal vaccine <65 Aged Out No longer eligible based on patient's age to complete this topic Procedures Procedure Name Priority Date/Time Associated Diagnosis Comments HLA ANTIBODY SCREEN BY PRA OR SAB PER SCHEDULE (CLASS I AND CLASS II) Routine 09/21/2024 10:00 AM ELECTROTYPE FINISHER ESRD (end stage renal disease) ([facility]/HCC) (HCC) MRI ABDOMEN KIDNEY WO CONTRAST Schedule Routine, Read Routine (OP Routine) 09/08/2024 9:58 AM ELECTROTYPE FINISHER History of kidney cancer HLA ANTIBODY SCREEN - SAB (CLASS I AND CLASS II) Routine 08/10/2024 10:00 AM CDT ESRD (end stage renal disease) (CMS/HCC) (HCC) HLA ANTIBODY SCREEN BY PRA OR SAB PER SCHEDULE (CLASS I AND CLASS II) Routine 08/10/2024 10:00 AM CDT ESRD (end stage renal disease) (CMS/HCC) (HCC) HEPATITIS C ANTIBODY Routine 11/08/2022 8:15 AM ELECTROTYPE FINISHER 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) (HCC) PSA SCREEN Routine 11/08/2022 8:15 AM ELECTROTYPE FINISHER 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) (HCC) from Last 3 Months or Most Recently Relevant to Health Maintenance Results * HLA Antibody Screen by PRA or SAB per Schedule (Class I and Class II) (09/21/2024 10:00 AM ELECTROTYPE FINISHER) Blood 09/21/2024 10:0 0 AM ELECTROTYPE FINISHER Narrative HISTOTRAC - ELECTROTYPE FINISHER Sample received in lab and stored. ??No testing performed at this time. us Alonso Pruitt MD LAB BLOOD ORDERABLES Final Resu lt HISTOTRAC * MRI Abdomen Kidney WO Contrast (09/08/2024 9:58 AM ELECTROTYPE FINISHER) Anatomical Region Laterality Modality Body N/A Magnetic Resonan ce 09/08/2024 1:14 PM ELECTROTYPE FINISHER Impressions 09/08/2024 1:25 PM ELECTROTYPE FINISHER 1. ??Redemonstrated post surgical changes of right [...] Donaldo Moya M.D. Narrative 09/08/2024 1:25 PM ELECTROTYPE FINISHER EXAMINATION: MAGNETIC RESONANCE IMAGING OF THE ABDOMEN [...] signed by: Donaldo Moya M.D. Quique Guzman NP IMG MRI PROCEDURES Fin al Result * HLA Antibody Screen by PRA or SAB per Schedule (Class I and Class II) (08/10/2024 10:00 AM CDT) Blood 08/10/2024 10:0 0 AM CDT Narrative HISTOTRAC - ELECTROTYPE FINISHER Sample received in lab. ??Single Antigen Antibody [...] an FDA-approved IVD kit (LABScreen Single-Antigen, [employer], [place], [place]). All patient serum samples are pretreated with EDTA before the screen to prevent complement interference. Additional serum treatments, such as adsorption and DTT treatment, may be performed as indicated. ??Interpretive comments: Low risk: MFI [id number]. Moderate risk: MFI 2426-3969. Increased risk: MFI >/= 5000. The presence [...] antigens to avoid. Testing performed at the [facility], [address] [place] [address], 5th floor, [place], [address]. IA # [id number]. Harman Flores M.D., Ph.D., HLA Professor Of Literacy Aviva Conway, Ph.D., Digester Hand, [facility] Laboratories Current methodology and interpretive comments last revised on 11/22/2022. us Alonso Pruitt MD LAB BLOOD ORDERABLES Final Resu lt HISTOTRAC * PSA screen (11/08/2022 8:15 AM ELECTROTYPE FINISHER) PSA-Total 0.93 <=5.40 ng/mL [facility]OR[facility] Comment: Interpretive Data ?AGE ? SEX ?REFERENCE [...] last revised 22. Blood 11/08/2022 8:15 AM ELECTROTYPE FINISHER 11/08/2022 8:57 AM ELECTROTYPE FINISHER Perla Valadez MD LAB BLOOD ORDERABLE S Final Result Performing Organization Address [facility] [[email or web address]] Co de Phone Number UMANG [facility] Department [place] [address] * Hepatitis C antibody (11/08/2022 8:15 AM ELECTROTYPE FINISHER) Hep C Ab Nonreactive Nonreactive [facility] Comment:Antibodies to HCV no t detected. Does NOT exclude the possibility of recent exposure to HCV. Current interpretive data was last revised on 22 Blood 11/08/2022 8:15 AM ELECTROTYPE FINISHER 11/08/2022 8:57 AM ELECTROTYPE FINISHER us Perla Vaaldez MD LAB MICROBIOLOGY - GENERAL ORDERABLES Final Result Performing Organization Address [facility] de Phone Number UMANG [facility] Department [place] [address] from Last 3 Months or Most Recently Relevant to Health Maintenance Insurance [facility] HMO/PPO Address: [address] [address] [place] [address] [id number] [place] [address] [facility] HMO/PPO Address: [address] [address] [place] [address] MEDICARE [facility] HMO/PPO Address: [address] [address] [place] [address] MEDICARE [facility] Address: [address] [address] [place] [address] [facility] HMO/PPO Address: [address] [address] [place] [address] MEDICARE [facility] Address: [address] [address] [place] [address] Advance Directives For more information, please contact: [phone] * Full Code (Latest Code Status on File) Date Activated Date Inactivated Comments 07/03/2020 3:51 PM 07/07/2020 4:44 PM * Full Code Date Activated Date Inactivated Comments 06/14/2020 5:08 PM 06/18/2020 10:40 PM Care Teams Fire Management Officer Relationship Specialty Start Date End Date Gerardo Shah MD PCP - General Internal Medicine 09/30/18 Suzette Strickland MD [address] [facility] [address] [place] [address] Referring Physician Nephrology 02/15/20 Rita Tapia, RN [address] [place] [address] Registered Nurse Mohs Surgeon/General Dermatologist 02/15/20
--- OUTSIDE RECORDS SUMMARY | 2024-10-16 06:36 | XMS_ITS | Encounter Summary ---
Author Organization [facility] Healthcare Address [address] [place] [address] Care Team Providers Care Survey Cad Technician Name Role Phone Gerardo Shah MD Primary Care Provider [phone] Suzette Strickland MD Unavailable [phone] Rita Tapia RN Unavailable [phone] Encounter Details Date Type Department Care Team (Latest Contact Info) Description 07/08/2023 10:00 AM CDT - 07/08/2023 11:59 PM CDT Hospital Encounter [address] [address] Stage 5 chronic kidney disease [...] on file Legal Sex Male 4:54 AM SEWING MACHINE REPAIRER HELPER Gender Identity Not on file Sexual Orientation [...] by mouth daily lidocaine-prilocai ne cream 03/17/2021 amLODIPine (NORVASC) 5 mg tablet TAKE ONE TABLET BY MOUTH EVERY MORNING 90 tablet 2 12/20/2022 3 isosorbide mononitrate ER (IMDUR) 30 mg 24 hr tablet 05/17/2023 3 metoprolol tartrate (LOPRESSOR) 25 mg immediate release tablet TAKE ONE TABLET BY MOUTH TWICE A DAY 180 tablet 2 05/22/2023 4 nitroglycerin (NITROSTAT) 0.[address] 1 tablet (0.4 mg total) under the tongue every 5 (five) minutes as needed 09/30/2018 3 documented as of this encounter Discharge Disposition Disposition Code Departure Means Destination Discharge to home or self care documented in this encounter Plan of Treatment Pending Results Name Type Priority Associated Diagnoses Date /Time HLA Antibody Screen by PRA or SAB per Schedule (Class I and Class II) Lab Routine Stage 5 chronic kidney disease on chronic dialysis ([facility]) ([facility]) 07/08/2023 10:00 AM CDT Scheduled Orders Name Type Priority Associated Diagnoses Orde r Schedule HLA Antibody Screen by PRA or SAB per Schedule (Class I and Class II) Lab Routine Stage 5 chronic kidney disease on chronic dialysis ([facility]) ([facility]) Once for 1 Occurrences starting 07/11/2023 until 07/11/2023 Scheduled Procedures Name Priority Associated Diagnoses Date/Ti me TRANSPLANT KIDNEY ESRD (end stage renal disease) ([facility]) documented as of this encounter Procedures Procedure Name Priority Date/Time Associated Diagnosis Comments HLA ANTIBODY SCREEN - SAB (CLASS I AND CLASS II) Routine 07/08/2023 10:00 AM CDT 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) (HCC) documented in this encounter Results * HLA Antibody Screen - SAB (Class I and Class II) (07/08/2023 10:00 AM CDT) Class I Treatment EDTA HISTOTRAC Class I Dilution 1:1 HISTOTRAC Class I Tested Date 07/12/2023 HISTOTRAC Class I Result Negative HISTOTRAC Class I CPRA 0 HISTOTRAC Class I Low Risk A34 HISTOTRAC Class II Treatment EDTA HISTOTRAC Class II Dilution 1:1 HISTOTRAC Class II Tested Date 07/12/2023 HISTOTRAC Class II Result Positive HISTOTRAC Class II CPRA 47 HISTOTRAC Class II Moderate Risk DQ7; DPB1*01:01 HISTOTRAC Class II Low Risk DPB1*06:01, DPB1*11:01 HISTOTRAC 07/08/2023 10:0 0 AM CDT 07/15/2023 1:25 PM CDT Narrative HISTOTRAC - 07/15/2023 1:25 PM CDT Single-antigen HLA antibody screen is performed on serum samples using a method developed and validated by the [facility] HLA laboratory based on an FDA-approved IVD kit (LABScreen Single-Antigen, [employer], [place], [place]). All patient serum samples are pretreated with EDTA before the screen to prevent complement interference. Additional serum treatments, such as adsorption and DTT treatment, may be performed as indicated. ??Interpretive comments: Low risk: MFI [id number]. Moderate risk: MFI 4526-8534. Increased risk: MFI >/= 5000. The presence [...] antigens to avoid. Testing performed at the [facility], [address] [place] [address], 5th floor, [place], [address]. CLIA # [id number]. Macie Vizcaino M.D., Associate HLA Plush Cutter Harman Flores M.D., Ph.D., HLA Plush Cutter Aviva Conway, Ph.D., Field Observer, [facility] Laboratories Current methodology and interpretive comments last revised on 11/22/2022. us Perla Valadez MD LAB BLOOD ORDERABLE S Final Result HISTOTRAC documented in this encounter Visit Diagnoses Diagnosis 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) (HCC) documented in this encounter Care Teams Survey Cad Technician Relationship Specialty Start Date End Date Gerardo Shah MD PCP - General Internal Medicine 09/30/18 Suzette Strickland MD [address] [facility] [address] [place] [address] Referring Physician Nephrology 02/15/20 Rita Tapia, RN [address] [place], [place] [id number] Registered Nurse Electric Organ Assembler And Checker 02/15/20 documented as of this encounter
--- OUTSIDE RECORDS SUMMARY | 2024-10-16 06:36 | XMS_ITS | Encounter Summary ---
Author Organization [facility] Healthcare Address [address] [place] [address] Care Team Providers Care News Clerk Name Role Phone Gerardo Shah MD Primary Care Provider [phone] Suzette Strickland MD Unavailable [phone] Rita Tapia RN Unavailable [phone] Encounter Details Date Type Department Care Team (Late st Contact Info) Description 07/31/2023 Telephone [facility] Transplant Kidney [address] [address] Mailstop [phone] [place] [address] Zhane Hatfield Social History Tobacco Use Types Packs/Day Years Used Date Smoking Tobacco: Former Cigarettes 1.5 40 0 04/11/1978 - 2017 Smokeless Tobacco: Never Alcohol Use Standard Drinks/Week Comments Yes 1 (1 standard drink = 0.6 oz pur e alcohol) OCC Sex and Gender Information Value Date Recorded Sex Assigned at Not on file Legal Sex Male 4:54 AM 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 documented in this encounter Plan of Treatment Scheduled Procedures Name Priority Associated Diagnoses Date/Ti me TRANSPLANT KIDNEY ESRD (end stage renal disease) ([facility]) documented as of this encounter Visit Diagnoses Not on filedocumented in this encounter Care Teams News Clerk Relationship Specialty Start Date End Date Gerardo Shah MD PCP - General Internal Medicine 09/30/18 Suzette Strickland MD [address] [facility] [address] [place] [address] Referring Physician Nephrology 02/15/20 Rita Tapia, RN [address] [place] [address] Registered Nurse Photographic Supervisor 02/15/20 documented as of this encounter
--- OUTSIDE RECORDS SUMMARY | 2024-10-16 06:36 | XMS_ITS | Encounter Summary ---
Author Organization [facility] Address [address] [place] [address] Care Team Providers Care Cytometry Technologist Name Role Phone Gerardo Shah MD Primary Care Provider [phone] Suzette Strickland MD Unavailable [phone] Rita Tapia RN Unavailable [phone] Reason for Visit * Reason Comments Coronary Artery Disease 4 mo f/u Encounter Details Date Type Department Care Team (Late st Contact Info) Description 09/05/2023 9:45 AM HISTOLOGY AIDE Office Visit [facility] Card[facility] [address] [address] Donaldo Tee MD [address] [facility] [address] [place] [address] Prinzmetal's angina (CMS/HCC) (HCC) (Primary Dx) Social History Tobacco Use Types Packs/Day Years Used Date Smoking Tobacco: Former Cigarettes 1.5 40 0 04/11/1978 - 2017 Smokeless Tobacco: Never Alcohol Use Standard Drinks/Week Comments Yes 1 (1 standard drink = 0.6 oz pur e alcohol) OCC Sex and Gender Information Value Date Recorded Sex Assigned at Not on file Legal Sex Male 4:54 AM HISTOLOGY AIDE Gender Identity Not on file Sexual Orientation Straight 05/03/2020 10 :36 AM CDT documented as of this encounter Last Filed Vital Signs Vital Sign Reading Time Taken Comments Blood Pressure 100/50 09/05/2023 9:32 AM HISTOLOGY AIDE Pulse 60 09/05/2023 9:32 AM HISTOLOGY AIDE Temperature - - Respiratory Rate - - Oxygen Saturation 97% 09/05/2023 9:32 AM HISTOLOGY AIDE Inhaled Oxygen Concentration - - Weight 81.6 kg (180 lb) 09/05/2023 9:32 AM HISTOLOGY AIDE Height 190.5 cm (6' 3 ) 09/05/2023 9:32 AM HISTOLOGY AIDE Body Mass Index 22.5 09/05/2023 9:32 AM HISTOLOGY AIDE documented in this encounter Ordered Prescriptions Prescription Sig Dispense Quantity Refills Last Filled Start Date End Date nitroglycerin (NITROSTAT) 0.[address] 1 tablet (0.4 mg total) under the tongue every 5 (five) minutes as needed for chest pain 30 tablet 3 09/05/2023 documented in this encounter Progress Notes * Donaldo Tee MD - 09/05/2023 9:45 AM CST [facility] FOLLOW UP 09/05/2023 Abel Browne is a 63 y.o. male who presents for follow up [...] He was undergoing a transplant workup at [place] and a stress echocardiogram was done which was a negative exam as expected since he is not known to have any coronary disease. His renal disease has progressed to end-stage renal disease requiring hemodialysis 3 times per week. He returns to the office today for shorter interval follow-up. I saw this gentleman back in February forhis annual appointment. He was then hospitalized in April transferred here from [place] because of some chest pain. He did have a modest troponin rise and so another coronary angiogram was done that d meccatrated no significant coronary artery disease. Looks like isosorbide was added to his medical regimen at that time. He has not had any symptoms of this sort since then. I questioned him about his availability for Nitrostat tablets. He says he has them but the bottle is at least several years old. He only other wanted to discuss with me the fact that he has been noticing some increasing tremors in his right arm. REVIEW OF SYSTEMS General ROS: negative for [...] the tongue every 5 (five) minutes as needed, Disp: , Rfl: LABS AND OTHER DIAGNOSTIC TESTS Lab Results [...] for component: LABALBU PHYSICAL EXAM Vitals BP 100/50 (BP Location: Right arm, Patient Position: Sitting) Pulse 60 Ht 190.5 cm (6' 3 ) Wt 81.6 kg (180 lb) SpO2 97% BMI 22.50 kg/m?? Physical Examination: General appearance - alert, [...] no suspicious skin lesions noted ASSESSMENT Abel was seen today for coronary artery disease. Diagnoses and all orders for this visit: Prinzmetal's angina ([facility]) ([facility]) PLAN/RECOMMENDATIONS Renew prescription for Nitrostat tablets Follow-up 6 months or p.r.n. He will discuss with his PCP the tremor that he has developed in his right arm. Told him this is not a cardiac problem he was concerned that it is related to his renal failure. Donaldo Tee MD OLOGY AIDE documented in this encounter Plan of Treatment Scheduled Procedures Name Priority Associated Diagnoses Date/Ti id TRANSPLANT KIDNEY ESRD (end stage renal disease) ([facility]) documented as of this encounter Visit Diagnoses Diagnosis Prinzmetal's angina ([facility]) ([facility])- Primary Prinzmetal angina documented in this encounter Discontinued Medications Medication Sig Discontinue Reason Start Date End Da te nitroglycerin (NITROSTAT) 0.[address] 1 tablet (0.4 mg total) under the tongue every 5 (five) minutes as needed Reorder 09/30/2018 09/05/2023 documented as of this encounter Care Teams Cytometry Technologist Relationship Specialty Start Date End Date Gerardo Shah MD PCP - General Internal Medicine 09/30/18 Suzette Strickland MD [address] [facility] [address] [place] [address] Referring Physician Nephrology 02/15/20 Rita Tapia, RN [address] [place], [place] [id number] Registered Nurse Blending Tank Tender Helper 02/15/20 documented as of this encounter
--- OUTSIDE RECORDS SUMMARY | 2024-10-16 06:36 | XMS_ITS | Encounter Summary ---
Author Organization [facility] Healthcare Address [address] [place] [address] Care Team Providers Care Clinical Services Assistant Name Role Phone Gerardo Shah MD Primary Care Provider [phone] Suzette Strickland MD Unavailable [phone] Rita Tapia RN Unavailable [phone] Encounter Details Date Type Department Care Team (Late st Contact Info) Description 07/29/2023 Telephone [facility] and 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 Is it possible to request from pt's dialysis clinic so Finance can fax as requested please. Let me know when recd Recd call from nAny Gillespie cm at [facility] requesting confirmation that pt remains actively listed for kidney txp and recent clinic note be faxed. [phone] / documented in this encounter Plan of Treatment Scheduled Procedures Name Priority Associated Diagnoses Date/Ti me TRANSPLANT KIDNEY ESRD (end stage renal disease) ([facility]) documented as of this encounter Visit Diagnoses Not on filedocumented in this encounter Care Teams Clinical Services Assistant Relationship Specialty Start Date End Date Gerardo Shah MD PCP - General Internal Medicine 09/30/18 Suzette Strickland MD [facility] [address] [place] [address] Referring Physician Nephrology 02/15/20 Rita Tapia, RN [address] [place] [address] Registered Nurse Senior Operations Analyst 02/15/20 documented as of this encounter
--- OUTSIDE RECORDS SUMMARY | 2024-10-16 06:36 | XMS_ITS | Encounter Summary ---
Author Organization [facility] Healthcare Address [address] [place] [address] Care Team Providers Care Lasting Machine Operator Hand Method Name Role Phone Gerardo Shah MD Primary Care Provider [phone] Suzette Strickland MD Unavailable [phone] Rita Tapia RN Unavailable [phone] Reason for Referral * MRI/CAT/PET Scan (Routine) - Closed Specialty Diagnoses / Procedures Referred By Contac t Referred To Contact Radiology Diagnoses Malignant neoplasm of right kidney (HCC) Procedures MRI Abdomen WO Contrast Quique Guzman NP [address] [facility] [place] [address] Phone: tel: fax: [facility] [address] [place] [address] Referral ID Status Reason Start Date Expiration Date Visits Re quested Visits Authorized [id number] Closed 09/11/2022 10/11/2023 1 1 MEAT COOK Reason for Visit * MRI/CAT/PET Scan (Routine) - Closed Specialty Diagnoses / Procedures Referred By Contac t Referred To Contact Radiology Diagnoses Malignant neoplasm of right kidney (HCC) Procedures MRI Abdomen WO Contrast Quique Guzman NP [address] [facility] [place] [address] Phone: tel: fax: [facility] [address] [facility] [place] [address] Referral ID Status Reason Start Date Expiration Date Visits Re quested Visits Authorized [id number] Closed 09/11/2022 10/11/2023 1 1 Encounter Details Date Type Department Care Team (Latest Contact Info) Description 09/10/2023 7:50 AM COLD MEAT COOK - 09/10/2023 11:59 PM COLD MEAT COOK Hospital Encounter [facility] [address] [place] [address] Malignant neoplasm of right kidney (HCC) Discharge Disposition: Discharge to home or [...] on file Legal Sex Male 4:54 AM COLD MEAT COOK Gender Identity Not on file Sexual Orientation [...] BY MOUTH EVERY MORNING 30 tablet 3 08/19/2023 4 metoprolol tartrate (LOPRESSOR) 25 mg immediate [...] Priority Date/Time Associated Diagnosis Comments MRI ABDOMEN WO CONTRAST Schedule Routine, Read Routine (OP Routine) 09/10/2023 8:42 AM COLD MEAT COOK Malignant neoplasm of right kidney (HCC) documented in this encounter Results * MRI Abdomen WO Contrast (09/10/2023 8:42 AM COLD MEAT COOK) Anatomical Region Laterality Modality Body N/A Magnetic Resonan ce 09/10/2023 9:46 AM COLD MEAT COOK Impressions 09/10/2023 10:01 AM COLD MEAT COOK 1. ??Surgical changes of right nephrectomy with no noncontrast MR evidence of locally recurrent tumor. 2. ??Unchanged findings of polycystic liver and kidney disease. Dictated by: Carla Pruitt MD, MPH The radiology attending physician has personally reviewed this study, and had reviewed and/or edited this written report and agrees with it. Electronically signed by: Roz Patterson M.D. 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 TECHNIQUE: Magnetic resonance imaging of the abdomen was performed without administration of intravenous Gadolinium contrast. Protocol: Kidney COMPARISON: MR 09/11/2022 FINDINGS: Liver: There is iron deposition. No significant hepatic steatosis. No surface nodularity. - Bile ducts: No intrahepatic or extrahepatic biliary ductal dilatation - Focal liver lesions: Numerous cysts are seen throughout the liver, grossly similar compared to prior exam. Gallbladder: Normal Pancreas: Normal Spleen: Iron deposition within the spleen. Adrenals: Normal Kidneys: Postsurgical changes of right radical nephrectomy. ??Left kidney is again noted to be entirely replaced with cysts, the majority of which are are T2 hyperintense. ??A few T1 hyperintense lesions are also present compatible with hemorrhagic or proteinaceous cysts. ??No appreciable hydronephrosis. ??Within the right nephrectomy bed, no solid tissue is identified within the limitations of this noncontrast examination. Other Findings: Diverticulosis. No lymphadenopathy. ??No ascites. ??No suspicious osseous lesion. 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 TECHNIQUE: Magnetic resonance imaging of the abdomen was performed without administration of intravenous Gadolinium contrast. Protocol: Kidney COMPARISON: MR 09/11/2022 FINDINGS: Liver: There is iron deposition. No significant hepatic steatosis. No surface nodularity. - Bile ducts: No intrahepatic or extrahepatic biliary ductal dilatation - Focal liver lesions: Numerous cysts are seen throughout the liver, grossly similar compared to prior exam. Gallbladder: Normal Pancreas: Normal Spleen: Iron deposition within the spleen. Adrenals: Normal Kidneys: Postsurgical changes of right radical nephrectomy. Left kidney is again noted to be entirely replaced with cysts, the majority of which are are T2 hyperintense. A few T1 hyperintense lesions are also present compatible with hemorrhagic or proteinaceous cysts. No appreciable hydronephrosis. Within the right nephrectomy bed, no solid tissue is identified within the limitations of this noncontrast examination. Other Findings: Diverticulosis. No lymphadenopathy. No ascites. No suspicious osseous lesion. IMPRESSION: 1. Surgical changes of right nephrectomy with no noncontrast MR evidence of locally recurrent tumor. 2. Unchanged findings of polycystic liver and kidney disease. Dictated by: Carla Pruitt MD, MPH The radiology attending physician has personally reviewed this study, and had reviewed and/or edited this written report and agrees with it. Electronically signed by: Roz Patterson M.D. Quique Guzman SANITATION TANK WASHER IMG MRI PROCEDURES Fin al Result documented in this encounter Visit Diagnoses Diagnosis Malignant neoplasm of right kidney (HCC) documented in this encounter Care Teams Lasting Machine Operator Hand Method Relationship Specialty Start Date End Date Gerardo Shah MD PCP - General Internal Medicine 09/30/18 Suzette Strickland MD [address] [facility] [address] [place] [address] Referring Physician Nephrology 02/15/20 Rita Tapia, RN [address] [place], [place] [id number] Registered Nurse Chemicals Distiller 02/15/20 documented as of this encounter
--- OUTSIDE RECORDS SUMMARY | 2024-10-16 06:36 | XMS_ITS | Encounter Summary ---
Author Organization [facility] Healthcare Address [address] [place] [address] Care Team Providers Care Bellows Charger Assembler Name Role Phone Gerardo Shah MD Primary Care Provider [phone] Suzette Strickland MD Unavailable [phone] Rita Tapia RN Unavailable [phone] Encounter Details Date Type Department Care Team (Late st Contact Info) Description 11/04/2023 Documentation [facility] and [facility] Transplant Kidney [address] [facility] [address] [phone] [place], [place] [id number] Rita Tapia, RN [address] [place], [place] [id number] Social History Tobacco Use Types Packs/Day Years Used Date Smoking Tobacco: Former Cigarettes 1.5 40 0 04/11/1978 - 2017 Smokeless Tobacco: Never Alcohol Use Standard Drinks/Week Comments Yes 1 (1 standard drink = 0.6 oz pur e alcohol) OCC Sex and Gender Information Value Date Recorded Sex Assigned at Not on file Legal Sex Male 4:54 AM INTERNET NETWORK SPECIALIST Gender Identity Not on file Sexual Orientation Straight 05/03/2020 10 :36 AM CDT documented as of this encounter Progress Notes * Rita Tapia RN - 11/04/2023 10:56 AM CST Received dental clearance. Saved to chart. RNET NETWORK SPECIALIST documented in this encounter Plan of Treatment Scheduled Procedures Name Priority Associated Diagnoses Date/Ti me TRANSPLANT KIDNEY ESRD (end stage renal disease) ([facility]) documented as of this encounter Visit Diagnoses Not on filedocumented in this encounter Care Teams Bellows Charger Assembler Relationship Specialty Start Date End Date Gerardo Shha MD PCP - General Internal Medicine 09/30/18 Suzette Strickland MD [address] [facility] [address] [place] [address] Referring Physician Nephrology 02/15/20 Rita Tapia, RN [address] [place], [place] [id number] Registered Nurse Engineering Intern 02/15/20 documented as of this encounter
--- OUTSIDE RECORDS SUMMARY | 2024-10-16 06:36 | XMS_ITS | Encounter Summary ---
Author Organization [facility] Address [address] [place] [address] Care Team Providers Care Video Tape Duplicator Name Role Phone Gerardo Shah MD Primary Care Provider [phone] Suzette Strickland MD Unavailable [phone] Rita Tapia RN Unavailable [phone] Reason for Visit * Reason Onset Date Comments Waitlist Maintenance 07/19/2023 Encounter Details Date Type Department Care Team (Late st Contact Info) Description 07/19/2023 Telephone [facility] and 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 Encouraged patient to contact nurse with any questions. Reviewed the following: Demographics (email, address, phone numbers): No changes Patient contacts: No changes Insurance carriers: Patient confirmed [employer] as primary and Medicare A&B as secondary insurance. I reminded patient of the importance of notifying the transplant center right away of any insurancechanges. Employment status and financial situation: No changes Dialysis: Patient stated he now goes at 6am. Updated in Epic. Weight: Patient self reported being 176 pounds. BMI 22.0 Medical issues (hospitalizations, medical conditions, illnesses, infections, procedures, open wounds, new diagnoses, or positive COVID results): Patient stated he was seen at [facility] back in mid April. He stated he was walking & felt like he was having a heart attack but it was issueswith his GI tract. He stated he was there 3-4 days & had a lot of test done including a heart catheter. He stated nothing was figured out but he had a follow up with his design engineering manager 2 days afterthe hospitalization. He stated he has another follow up on 09/05 with his design engineering manager. COVID Vaccinations: None reported Social Issues/Questions: None reported documented in this encounter Plan of Treatment Scheduled Procedures Name Priority Associated Diagnoses Date/Ti me TRANSPLANT KIDNEY ESRD (end stage renal disease) ([facility]) documented as of this encounter Visit Diagnoses Not on filedocumented in this encounter Care Teams Video Tape Duplicator Relationship Specialty Start Date End Date Gerardo Shah MD PCP - General Internal Medicine 09/30/18 Suzette Strickland MD [address] [facility] [address] [place] [address] Referring Physician Nephrology 02/15/20 Rita Tapia, RN [address] [place] [address] Registered Nurse Product Management Internship 02/15/20 documented as of this encounter
--- OUTSIDE RECORDS SUMMARY | 2024-10-16 06:36 | XMS_ITS | Encounter Summary ---
Author Organization [facility] Address [address] [place] [address] Care Team Providers Care Solidworks Mechanical Designer Name Role Phone Gerardo Shah MD Primary Care Provider [phone] Suzette Strickland MD Unavailable [phone] Rita Tapia RN Unavailable [phone] Encounter Details Date Type Department Care Team (Late st Contact Info) Description 07/31/2023 Telephone [facility] and [facility] Transplant Kidney [address] [address] Mailstop [phone] [place] [address] Zhane Hatfield Social History Tobacco Use Types Packs/Day Years Used Date Smoking Tobacco: Former Cigarettes 1.5 40 0 04/11/1978 - 2017 Smokeless Tobacco: Never Alcohol Use Standard Drinks/Week Comments Yes 1 (1 standard drink = 0.6 oz pur e alcohol) OCC Sex and Gender Information Value Date Recorded Sex Assigned at Not on file Legal Sex Male 4:54 AM SCREEN EXAMINER Gender Identity Not on file Sexual Orientation Straight 05/03/2020 10 :36 AM CDT documented as of this encounter Miscellaneous Notes * Telephone Encounter - Zhane Hatfield - 07/31/2023 3:43 PM CDT As of 28 Jul 2023, pt is now Medicare Primary with R/[facility] as secondary. E1E updated. documented in this encounter Plan of Treatment Scheduled Procedures Name Priority Associated Diagnoses Date/Ti me TRANSPLANT KIDNEY ESRD (end stage renal disease) ([facility]) documented as of this encounter Visit Diagnoses Not on filedocumented in this encounter Care Teams Solidworks Mechanical Designer Relationship Specialty Start Date End Date Gerardo Shah MD PCP - General Internal Medicine 09/30/18 Suzette Strickland MD [address] [facility] [address] [place] [address] Referring Physician Nephrology 02/15/20 Rita Tapia, RN [address] [place], [place] [phone] Registered Nurse Sample Card Maker 02/15/20 documented as of this encounter
--- OUTSIDE RECORDS SUMMARY | 2024-10-16 06:36 | XMS_ITS | Encounter Summary ---
Author Organization [facility] Healthcare Address [address] [place] [address] Care Team Providers Care Product Finisher Name Role Phone Gerardo Shah MD Primary Care Provider [phone] Suzette Strickland MD Unavailable [phone] Rita Tapia RN Unavailable [phone] Encounter Details Date Type Department Care Team (Late st Contact Info) Description 10/31/2023 Telephone [facility] and [facility] Transplant Kidney [address] [facility] [address] Mail[address] [phone] [place], [place] [phone] Rita Tapia RN [address] [place], [place] [phone] Social History Tobacco Use Types Packs/Day Years Used Date Smoking Tobacco: Former Cigarettes 1.5 40 0 04/11/1978 - 2017 Smokeless Tobacco: Never Alcohol Use Standard Drinks/Week Comments Yes 1 (1 standard drink = 0.6 oz pur e alcohol) OCC Sex and Gender Information Value Date Recorded Sex Assigned at Not on file Legal Sex Male 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 She said he hada [facility] at [facility]. I told her I found it in [facility] and it was clean and he would not need to do any testing. She said his dentist is Dr. Kan in [place]. I told her I would send him a dental clearance letter. I also asked her if he could get a PSA drawn and she said he would getit done and she would let me know when and where he gets it done. Faxed request for dental clearance to [phone]. ARINE WORKER documented in this encounter Plan of Treatment Scheduled Procedures Name Priority Associated Diagnoses Date/Ti me TRANSPLANT KIDNEY ESRD (end stage renal disease) ([facility]) documented as of this encounter Visit Diagnoses Not on filedocumented in this encounter Care Teams Product Finisher Relationship Specialty Start Date End Date Gerardo Shah MD PCP - General Internal Medicine 09/30/18 Suzette Strickland MD [address] [facility] [address] [place] [address] Referring Physician Nephrology 02/15/20 Rita Tapia, RN [address] [place] [address] Registered Nurse Cardiology Teacher 02/15/20 documented as of this encounter
--- OUTSIDE RECORDS SUMMARY | 2024-10-16 06:36 | XMS_ITS | Encounter Summary ---
Author Organization [facility] Healthcare Address [address] [place] [address] Care Team Providers Care Market Research Coordinator Name Role Phone Gerardo Shah MD Primary Care Provider [phone] Suzette Strickland MD Unavailable [phone] Rita Tapia RN Unavailable [phone] Encounter Details Date Type Department Care Team (Late st Contact Info) Description 10/31/2023 Telephone [facility] Transplant Kidney [address] [address] Mailstop [phone] [place] [address] Imelda Faria Social History Tobacco Use Types Packs/Day Years Used Date Smoking Tobacco: Former Cigarettes 1.5 40 0 04/11/1978 - 2017 Smokeless Tobacco: Never Alcohol Use Standard Drinks/Week Comments Yes 1 (1 standard drink = 0.6 oz pur e alcohol) OCC Sex and Gender Information Value Date Recorded Sex Assigned at Not on file Legal Sex Male 4:54 AM REVENUE COORDINATOR Gender Identity Not on file Sexual Orientation Straight 05/03/2020 10 :36 AM CDT documented as of this encounter Miscellaneous Notes * Telephone Encounter - Imelda Faria - 10/31/2023 3:05 PM CST ERROR NUE COORDINATOR documented in this encounter Plan of Treatment Scheduled Procedures Name Priority Associated Diagnoses Date/Ti me TRANSPLANT KIDNEY ESRD (end stage renal disease) ([facility]) documented as of this encounter Visit Diagnoses Not on filedocumented in this encounter Care Teams Market Research Coordinator Relationship Specialty Start Date End Date Gerardo Shah MD PCP - General Internal Medicine 09/30/18 Suzette Strickland MD [facility] [address] [place] [address] Referring Physician Nephrology 02/15/20 Rita Tapia, RN [address] [place], [place] [id number] Registered Nurse Latex Ribbon Machine Operator 02/15/20 documented as of this encounter
--- OUTSIDE RECORDS SUMMARY | 2024-10-16 06:36 | XMS_ITS | Encounter Summary ---
Author Organization [facility] Address [address] [facility] [address] [place] [address] Care Team Providers Care Door Closer Mechanic Name Role Phone Gerardo Shah MD Primary Care Provider [phone] Suzette Strickland MD Unavailable [phone] Rita Tapia RN Unavailable [phone] Reason for Visit * Reason Comments Follow-up 2 mo Encounter Details Date Type Department Care Team (Late st Contact Info) Description 05/23/2023 10:00 AM CDT Office Visit [facility] Cardiology [address] [phone] Danna Reynoso NP [address] [facility] [address] [place] [address] Coronary arteriosclerosis (Primary Dx); Microvascular angina (CMS/HCC) (HCC); Status post coronary angiogram; Hospital discharge follow-up Social History Tobacco Use Types Packs/Day Years Used Date Smoking Tobacco: Former Cigarettes 1.5 40 0 04/11/1978 - 2017 Smokeless Tobacco: Never Tobacco Cessation:Counseling Given: Not Answered Alcohol Use Standard Drinks/Week Comments Yes 1 (1 standard drink = 0.6 oz pur e alcohol) OCC Sex and Gender Information Value Date Recorded Sex Assigned at Not on file Legal Sex Male 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 Gender Identity Not on file Sexual Orientation Straight 05/03/2020 10 :36 AM CDT documented as of this encounter Last Filed Vital Signs Vital Sign Reading Time Taken Comments Blood Pressure 118/58 05/23/2023 9:53 AM CDT Pulse 60 05/23/2023 9:53 AM CDT Temperature - - Respiratory Rate - - Oxygen Saturation 96% 05/23/2023 9:53 AM CDT Inhaled Oxygen Concentration - - Weight 83 kg (183 lb) 05/23/2023 9:53 AM CDT Height 190.5 cm (6' 3 ) 05/23/2023 9:53 AM CDT Body Mass Index 22.87 05/23/2023 9:53 AM CDT documented in this encounter Progress Notes * Danna Reynoso NP - 05/23/2023 10:00 AM CDT Images from the original note were not included. [facility] Cardiology [address] [place] [address] Date of Visit: 05/23/2023 Patient ID: Abel Browne 1960 Chief Complaint Patient presents with Follow-up 2 mo Abel Browne is a 63 y.o. male who is an established patient of Dr. Tee with a history of presumed coronary vaso spasm coming to the office for hospital follow-up after he was admittedfor chest pain and elevated troponin. History of Present Illness: Abel Browne is a 63 y.o. male [...] He was undergoing a transplant workup at [place] and a stress echocardiogram was done which was a negative exam as expected since he is not known to have any coronary disease. His renal disease has progressed to end-stage renal disease requiring hemodialysis 3 times per week. 03/12/[address] Tee: He returns to the office for scheduled follow-up. What I can see in the chart he is still on the waiting list for kidney transplant. He has no cardiovascular complaints. He wanted to talk for a while about his potassium management as he says that he likesfoods that are high in potassium and his renal dietitian at the dialysis center is concerned he is typically hyperkalemic. He enjoys fresh fruits and vegetables that are high in potassium 05/23/2023 hospital follow-up visit with GRAPHIC ARTS TECHNICIAN: He went to the [place] ER for chest pain on 05/13/2023. He was given a GI cocktail and improved. However his chest pain recurred 2 days later so he went to the [facility] ER and was admitted. Initial troponin was 0.831 and navarro to 1.080. Dr. Horner saw him in consultation and was taken to the laborer laboratory. Coronary angiography showed mild luminal irregularities but no obstructive disease, and essentially appeared unchanged compared to the previouscatheterization in 2018. Because the patient's bradycardia, beta-kathryn was not up titrated, therefore he was started on Imdur 30 mg daily. He also had consultation with GI for his dysphagia, had anEGD and underwent esophageal dilatation and discharged with prescription for pantoprazole 40 mg b.i.d. for 10 days. Returns to the office today and reports he is had no recurrence of chest pain. Yesterday during dialysis his blood pressure did go low. When BP goes low he feels like a wave of burning in the chest. Records that I personally reviewed on the day of this visit include: (the interpretation is outlined in the HPI above) 03/12/[address] Tee, April 2023 [facility] records including the consultation note from Dr. Horner, cath report and discharge summary. I have also reviewed: allergies, current medications, past family history, past medical history, past social history, past surgical history and problem list. Medical History: Past Medical History: Diagnosis Date Anemia of chronic disease Arthritis Asthma Bradycardia CKD (chronic kidney disease) COPD (chronic obstructive pulmonary disease) (HCC) mild GERD (gastroesophageal reflux disease) Heart attack (CMS/HCC) (HCC) 09/2018 Hiatal hernia Pneumonia Polycystic kidney disease PONV (postoperative nausea and vomiting) Past Surgical History: Procedure Laterality Date CARDIAC CATHETERIZATION 2018 COLONOSCOPY 03/2020 NEPHRECTOMY 05/2020 OTHER SURGICAL HISTORY 1973 Ureteral surgery Social History Tobacco Use Smoking Status Former Packs/day: 1.50 Years: 40.00 Pack years: 60.00 Types: Cigarettes Start date: 04/11/1978 Quit date: 2018 Years since quittin.5 Smokeless Tobacco Never Social History Tobacco Use Smoking status: Former Packs/day: 1.50 Years: 40.00 Pack years: 60.00 Types: Cigarettes Start date: 04/11/1978 Quit date: 2018 Years since quittin.5 Smokeless tobacco: Never Substance and Sexual Activity Drug use: No Sexual activity: Defer Alcohol Use: Not on file Family History Problem Relation Age of Onset Aneurysm Mother Kidney disease Mother Cancer Father Kidney disease Sister PONV Sister Anesthesia problems Neg Hx Review of Systems Constitutional: Negative for malaise/fatigue, weight gain and weight loss. Cardiovascular: Negative for chest pain, claudication, dyspnea on exertion, leg swelling, near-syncope, orthopnea, palpitations, paroxysmal nocturnal dyspnea and syncope. Respiratory: Negative for cough, shortness of breath and sleep disturbances due to breathing. Hematologic/Lymphatic: Negative for bleeding problem. Does not bruise/bleed easily. Gastrointestinal: Positive for dysphagia and heartburn. Neurological: Negative for dizziness and light-headedness. Vital Signs: BP 118/58 (BP Location: Right arm, Patient Position: Sitting) Pulse 60 Ht 190.5 cm (6' 3 ) Wt83 kg (183 lb) SpO2 96% BMI 22.87 kg/m?? Physical Exam Constitutional: General: He is not in acute distress. Appearance: He is well-developed. HENT: Head: Normocephalic and atraumatic. Eyes: General: No scleral icterus. Conjunctiva/sclera: Conjunctivae normal. Neck: Vascular: No JVD. Trachea: No tracheal deviation. Cardiovascular: Rate and Rhythm: Regular rhythm. Bradycardia present. Heart sounds: Normal heart sounds. No murmur heard. Comments: Left upper arm fistula Pulmonary: Effort: Pulmonary effort is normal. No respiratory distress. Breath sounds: Normal breath sounds. Skin: General: Skin is warm and dry. Neurological: Mental Status: He is alert and oriented to person, place, and time. Psychiatric: Mood and Affect: Mood normal. Behavior: Behavior normal. No Known Allergies Current Outpatient Medications: amLODIPine (NORVASC) 5 mg tablet, TAKE ONE [...] ER (IMDUR) 30 mg 24 hr tablet, , Disp: , Rfl: lidocaine-prilocaine cream, , Disp: , Rfl: metoprolol tartrate (LOPRESSOR) 25 mg immediate release tablet, TAKE ONE TABLET BY MOUTH TWICE A DAY, Disp: 180 tablet, Rfl: 2 nitroglycerin (NITROSTAT) 0.4 mg SL tablet, Place 1 tablet (0.4 mg total) under the tongue every 5 (five) minutes as needed, Disp: , Rfl: acetaminophen 500 mg capsule, Take 1 capsule (500 mg total) by mouth every 6 (six) hours as needed for pain for up to 30 doses (Patient not taking: Reported on 05/23/2023), Disp: 30 capsule, Rfl: 0 Lab Results Component Value Date POTASSIUM 4.8 11/08/2022 BUNSER 30 (H) 11/08/2022 CREATININE 5.82 (H) 11/08/2022 CHOL 161 04/04/2020 TRIG 147 04/04/2020 LDLCALC 94 04/04/2020 HDL 38 (L) 04/04/2020 Lab Results Component Value Date WBC 7.4 11/08/2022 HGB 12.1 (L) 11/08/2022 HCT 38.1 (L) 11/08/2022 MCV 103.8 (H) 11/08/2022 No results found for this or any previous visit (from the past 4 hour(s)). Lab Results Component Value Date POCCHOL 118 03/12/2023 POCHDL 38 03/12/2023 POCTRIG 92 03/12/2023 POCLDL 62 03/12/2023 POCNONHDL 80 03/12/2023 POCCHLPL 118 03/12/2023 Assessment: Diagnoses and all orders for this visit: Coronary arteriosclerosis (Primary) Microvascular angina (CMS/HCC) (HCC) Status post coronary angiogram Hospital discharge follow-up Plan/Recommendations: He is s/p hospitalization for evaluation of chest pain with elevated troponin. A new coronary angiogram showed mild luminal irregularities in the coronary arteries without any significant obstructivedisease, essentially unchanged from previous cardiac catheterization in 2018. His symptoms could befrom microvascular disease. He was started on isosorbide 30 mg daily and is tolerating this withoutchest pain recurrence so far. He did have an episode of low blood pressure yesterday during dialysis. I advised the patient to notify us if hypotension becomes an ongoing problem. Otherwise continue the isosorbide, metoprolol and amlodipine. Because of this recent change in his medical therapy I advised him to follow-up with Dr. Tee again in 3 months but call us sooner with concerns. He verbalized understanding and agreed. 05/23/2023 HUMA Moon- Nurse Practitioner with [facility] This note is dictated and transcribed using [employer] Direct Software. Jewel Bearing Polisher variancesmay occur. Despite proofreading, typographical errors may occur. documented in this encounter Plan of Treatment Scheduled Procedures Name Priority Associated Diagnoses Date/Ti oh TRANSPLANT KIDNEY ESRD (end stage renal disease) (CMS/HCC) documented as of this encounter Visit Diagnoses Diagnosis Coronary arteriosclerosis- Primary Coronary atherosclerosis of unspecified type of vessel, tetlin or graft Microvascular angina (HCC) Status post coronary angiogram Other postprocedural status Hospital discharge follow-up Other follow-up examination documented in this encounter Historical Medications * This list may reflect changes made after this encounter. Medication Sig Dispense Quantity Refills Last Filled Start D ate End Date isosorbide mononitrate ER (IMDUR) 30 mg 24 hr tablet 05/17/2023 08/19/2023 added in this encounter Care Teams Door Closer Mechanic Relationship Specialty Start Date End Date Gerardo Shah MD PCP - General Internal Medicine 09/30/18 Suzette Strickland MD [address] [facility] [address] [place] [address] Referring Physician Nephrology 02/15/20 Rita Tapia, RN [address] [place] [address] Registered Nurse Cyber Security Manager 02/15/20 documented as of this encounter
--- OUTSIDE RECORDS SUMMARY | 2024-10-16 06:36 | XMS_ITS | Encounter Summary ---
Author Organization [facility] Healthcare Address [address] [place] [address] Care Team Providers Care Post Form Remover Name Role Phone Gerardo Shah MD Primary Care Provider [phone] Suzette Strickland MD Unavailable [phone] Rita Tapia RN Unavailable [phone] Reason for Visit * Reason Onset Date Comments Waitlist Maintenance 09/25/2023 Encounter Details Date Type Department Care Team (Late st Contact Info) Description 09/25/2023 Telephone [facility] Transplant Kidney [address] [address] Mailstop [phone] [place] [address] Rhoda Morjeon Waitlist Maintenance Social History Tobacco Use Types Packs/Day Years Used Date Smoking Tobacco: Former Cigarettes 1.5 40 0 04/11/1978 - 2017 Smokeless Tobacco: Never Alcohol Use Standard Drinks/Week Comments Yes 1 (1 standard drink = 0.6 oz pur e alcohol) OCC Sex and Gender Information Value Date Recorded Sex Assigned at Not on file Legal Sex Male 4:54 AM NURSE PRACTICAL Gender Identity Not on file Sexual Orientation Straight 05/03/2020 10 :36 AM CDT documented as of this encounter Miscellaneous Notes * Telephone Encounter - Rhoda Morejon - 09/30/2023 9:39 AM CST I was unable to reach patient this month. I made 3 attempts and left voicemails every time. XynCareCall task scheduled to try again next month. E PRACTICAL documented in this encounter Plan of Treatment Scheduled Procedures Name Priority Associated Diagnoses Date/Ti me TRANSPLANT KIDNEY ESRD (end stage renal disease) ([facility]) documented as of this encounter Visit Diagnoses Not on filedocumented in this encounter Care Teams Post Form Remover Relationship Specialty Start Date End Date Gerardo Shah MD PCP - General Internal Medicine 09/30/18 Suzette Strickland MD [address] [facility] [address] [place] [address] Referring Physician Nephrology 02/15/20 Rita Tapia, RN [address] [place], [place] [id number] Registered Nurse Cut Off Tender Glass 02/15/20 documented as of this encounter
--- OUTSIDE RECORDS SUMMARY | 2024-10-16 06:36 | XMS_ITS | Encounter Summary ---
Author Organization [facility] Healthcare Address [address] [place] [address] Care Team Providers Care Debt Counselor Name Role Phone Gerardo Shah MD Primary Care Provider [phone] Suzette Strickland MD Unavailable [phone] Rita Tapia RN Unavailable [phone] Encounter Details Date Type Department Care Team (Latest Contact Info) Description 06/12/2023 7:00 AM CDT - 06/12/2023 11:59 PM CDT Hospital Encounter [facility] [address] [facility] 1st [place] [phone] 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) (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) documented as of this encounter Procedures Procedure Name Priority Date/Time Associated Diagnosis Comments HLA ANTIBODY SCREEN BY PRA OR SAB PER SCHEDULE (CLASS I AND CLASS II) Routine 06/12/2023 7:00 AM CDT Stage 5 chronic kidney disease on chronic dialysis ([facility]) ([facility]) documented in this encounter Results * HLA Antibody Screen by PRA or SAB per Schedule (Class I and Class II) (06/12/2023 7:00 AM CDT) Blood 06/12/2023 7:00 AM CDT Narrative [facility] - SURFACE LOGGING SYSTEMS LOGGER Sample received in lab and stored. ??No testing performed at this time. us Perla Valadez MD LAB BLOOD ORDERABLE S Final Result [facility] documented in this encounter Visit Diagnoses Diagnosis 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) (HCC) documented in this encounter Care Teams Debt Counselor Relationship Specialty Start Date End Date Gerardo Shah MD PCP - General Internal Medicine 09/30/18 Suzette Strickland MD [address] [facility] [address] [place] [address] Referring Physician Nephrology 02/15/20 Rita Tapia, RN [address] [place], [place] [phone] Registered Nurse Court Specialist 02/15/20 documented as of this encounter
--- OUTSIDE RECORDS SUMMARY | 2024-10-16 06:36 | XMS_ITS | Encounter Summary ---
Author Organization [facility] Address [address] [place] [address] Phone Care Team Providers Care Leather Coater Name Role Phone Gerardo Shah MD Primary Care Provider [phone] Suzette Strickland MD Unavailable [phone] Rita Tapia RN Unavailable [phone] Reason for Referral * MRI/CAT/PET Scan (Routine) - Closed Specialty Diagnoses / Procedures Referred By Kishore elkins Referred To Contact Radiology Diagnoses History of kidney cancer Procedures MRI Abdomen Kidney WO Contrast Quique Guzman NP [address] [facility] [place] [address] Phone: tel: fax: [address] [address] Referral ID Status Reason Start Date Expiration Date Visits Re quested Visits Authorized [id number] Closed 09/10/2023 10/09/2024 1 1 [facility] Reason for Visit * Reason Comments Follow-up Yearly FU for Malign ant neoplasm of Rt Kidney Had MRI waiting for results Encounter Details Date Type Department Care Team ([facility] Contact Info) Description 09/10/2023 9:40 AM SECURITY SME [facility] - [facility] Urology [address] [facility] 11th [place] [address] [place] [address] Quique Guzman NP [address] [place] [address] History of kidney cancer (Primary Dx) Social History Tobacco Use Types Packs/Day Years Used Date Smoking Tobacco: Former Cigarettes 1.5 40 0 04/11/1978 - 2017 Smokeless Tobacco: Never Alcohol Use Standard Drinks/Week Comments Yes 1 (1 standard drink = 0.6 oz pur e alcohol) OCC Sex and Gender Information Value Date Recorded Sex Assigned at Not on file Legal Sex Male 4:54 AM SECURITY SME Gender Identity Not on file Sexual Orientation Straight 05/03/2020 10 :36 AM CDT documented as of this encounter Progress Notes * Quique Guzman NP - 09/10/2023 9:40 AM CST Urology Note: Appointment with Quique Guzman NP CHIEF COMPLAINT: RCC HISTORY OF PRESNT ILLNESS: 63 y.o. y/o male with history of ADPCKD, on dialysis. Patient Dr. Booker. 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 MRI today shows no evidence of disease recurrence today. He denies GH. PHYSICAL EXAM: General: Healthy-appearing male in no acute distress Radiolgy: MRI Abdomen 09/10/23 ASSESSMENT/PLAN 63 y.o. y/o male with history of polycystic kidney disease who had a right nephrectomy area with a small focus of papillary RCC in 2019. Follow-up MRI today shows no evidence of disease recurrence. Will plan on repeating imaging for a total of 5 years post diagnosis. This note was generated by speech recognition software and may contain homophonic word substitutions or errors, please contact me for any questions. [facility] documented in this encounter Plan of Treatment Scheduled Procedures Name Priority Associated Diagnoses Date/Ti me TRANSPLANT KIDNEY ESRD (end stage renal disease) (CMS/HCC) documented as of this encounter Results * MRI Abdomen Kidney WO Contrast (09/08/2024 9:58 AM SECURITY SME) Anatomical Region Laterality Modality Body N/A Magnetic Resonan ce 09/08/2024 1:14 PM SECURITY SME Impressions 09/08/2024 1:25 PM SECURITY SME 1. ??Redemonstrated post surgical changes of right [...] Donaldo Moya M.D. Narrative 09/08/2024 1:25 PM SECURITY SME EXAMINATION: MAGNETIC RESONANCE IMAGING OF THE ABDOMEN [...] signed by: Donaldo Moya M.D. Quique Guzman STUDENT MINISTRIES DIRECTOR IMG MRI PROCEDURES Fin al Result documented in this encounter Visit Diagnoses Diagnosis History of kidney cancer- Primary Personal history of malignant neoplasm of kidney History of kidney cancer Personal history of malignant neoplasm of kidney documented in this encounter Care Teams Leather Coater Relationship Specialty Start Date End Date Gerardo Shah MD PCP - General Internal Medicine 09/30/18 Suzette Strickland MD [address] [facility] [address] [place] [address] Referring Physician Nephrology 02/15/20 Rita Tapia, RN [address] [place] [address] Registered Nurse Package Checker 02/15/20 documented as of this encounter
--- OUTSIDE RECORDS SUMMARY | 2024-10-16 06:36 | XMS_ITS | Encounter Summary ---
Author Organization [facility] Healthcare Address [address] [place] [address] Care Team Providers Care Card Room Manager Name Role Phone Gerardo Shah MD Primary Care Provider [phone] Suzette Strickland MD Unavailable [phone] Rita Tapia RN Unavailable [phone] Encounter Details Date Type Department Care Team (Latest Contact Info) Description 09/11/2023 10:00 AM SAND TESTER - 09/11/2023 11:59 PM SAND TESTER Hospital Encounter [address] [address] 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) ([facility]) Discharge Disposition: Discharge to home or [...] on file Legal Sex Male 4:54 AM SAND TESTER Gender Identity Not on file Sexual [...] [facility]) documented as of this encounter Procedures Procedure Name Priority Date/Time Associated Diagnosis Comments HLA ANTIBODY SCREEN BY PRA OR SAB PER SCHEDULE (CLASS I AND CLASS II) Routine 09/11/2023 10:00 AM SAND TESTER Stage 5 chronic kidney disease on chronic dialysis ([facility]) ([facility]) HLA ANTIBODY SCREEN - SAB (CLASS I AND CLASS II) Routine 09/11/2023 10:00 AM SAND TESTER Stage 5 chronic kidney disease on chronic dialysis ([facility]) ([facility]) documented in this encounter Results * HLA Antibody Screen - SAB (Class I and Class II) (09/11/2023 10:00 AM SAND TESTER) Class I Treatment EDTA HISTOT[facility] Class I Dilution 1:1 HISTOT[facility]AC Class I Tested Date 09/13/2023 HISTOTRAC Class I Result Negative HISTOT[facility] Class I CPRA 0 HISTOT[facility]AC Class I Low Risk B13 HISTOT[facility] Class II Treatment EDTA HISTOTRAC Class II Dilution 1:1 HISTOTRAC Class II Tested Date 09/13/2023 HISTOTRAC Class II Result Positive HISTOTRAC Class II Moderate Risk DQ6; DPB1*01:01 HISTOTRAC Class II Low Risk DQ6, DQ7; DPB1*11:01 HISTOTRAC 09/11/2023 10:0 0 AM SAND TESTER 09/16/2023 7:43 AM SAND TESTER Narrative HISTOTRAC - 09/16/2023 7:43 AM SAND TESTER Single-antigen HLA antibody screen is performed on serum samples using a method developed and validated by the [facility] HLA laboratory based on an FDA-approved IVD kit (LABScreen Single-Antigen, [employer], [place], [place]). All patient serum samples are pretreated with EDTA before the screen to prevent complement interference. Additional serum treatments, such as adsorption and DTT treatment, may be performed as indicated. ??Interpretive comments: Low risk: MFI [id number]. Moderate risk: MFI [id number]. Increased risk: MFI >/= 5000. The presence [...] antigens to avoid. Testing performed at the [facility], [facility] [address], [address]th floor, [place], [address]. CLIA # [id number]. Macie Vizcaino M.D., Associate HLA Regulatory Affairs Consultant Harman Flores M.D., Ph.D., HLA Regulatory Affairs Consultant Aviva Conway, Ph.D., Therapy Technician, [facility] Current methodology and interpretive comments last revised on 11/22/2022. us Perla Valadez MD LAB BLOOD ORDERABLE S Final Result Performing Organization Address City/[facility]/ZIP Co de Phone Number HISTOTRAC * HLA Antibody Screen by PRA or SAB per Schedule (Class I and Class II) (09/11/2023 10:00 AM SAND TESTER) Blood 09/11/2023 10:0 0 AM SAND TESTER Narrative HISTOTRAC - SAND TESTER Sample received in lab. ??Single Antigen Antibody Screen ordered. us Perla Valadez MD LAB BLOOD ORDERABLE S Final Result Performing Organization Address City/[facility]/ZIP Co de Phone Number HISTOTRAC documented in this encounter Visit Diagnoses Diagnosis 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) (HCC) documented in this encounter Care Teams Card Room Manager Relationship Specialty Start Date End Date Gerardo Shah MD PCP - General Internal Medicine 09/30/18 Suzette Strickland MD [address] [facility] [address] [place] [address] Referring Physician Nephrology 02/15/20 Rita Tapia, RN [address] [place] [address] Registered Nurse Supervisor Final 02/15/20 documented as of this encounter
--- OUTSIDE RECORDS SUMMARY | 2024-10-16 06:36 | XMS_ITS | Encounter Summary ---
Author Organization [facility] Healthcare Address [address] [place] [address] Care Team Providers Care Vertical Borer Name Role Phone Gerardo Shah MD Primary Care Provider [phone] Suzette Strickland MD Unavailable [phone] Rita Tapia RN Unavailable [phone] Encounter Details Date Type Department Care Team (Latest Contact Info) Description 10/09/2023 6:25 AM BREAD MOLDER - 10/09/2023 11:59 PM BREAD MOLDER Hospital Encounter [address] [address] ESRD (end stage renal disease) ([facility]) ([facility]) Discharge Disposition: Discharge to home or self [...] on file Legal Sex Male 4:54 AM BREAD MOLDER Gender Identity Not on file Sexual Orientation [...] renal disease) ([facility]) documented as of this encounter Procedures Procedure Name Priority Date/Time Associated Diagnosis Comments HLA ANTIBODY SCREEN BY PRA OR SAB PER SCHEDULE (CLASS I AND CLASS II) Routine 10/09/2023 6:25 AM BREAD MOLDER ESRD (end stage renal disease) ([facility]) (HCC) documented in this encounter Results * HLA Antibody Screen by PRA or SAB per Schedule (Class I and Class II) (10/09/2023 6:25 AM BREAD MOLDER) Blood specimen (specimen) 10/09/2023 6:25 AM BREAD MOLDER Narrative HISTOTRAC - BREAD MOLDER Sample received in lab and stored. ??No testing performed at this time. us Tatianna Moyer MD LAB BLOOD ORDERABL ES Final Result HISTOTRAC documented in this encounter Visit Diagnoses Diagnosis ESRD (end stage renal disease) (CMS/HCC) (HCC) End stage renal disease documented in this encounter Care Teams Vertical Borer Relationship Specialty Start Date End Date Gerardo Shah MD PCP - General Internal Medicine 09/30/18 Suzette Strickland MD [address] [facility] [address] [place] [address] Referring Physician Nephrology 02/15/20 Rita Tapia, RN [address] [place], [place] [id number] Registered Nurse Product Operations Associate 02/15/20 documented as of this encounter
--- OUTSIDE RECORDS SUMMARY | 2024-10-16 06:36 | XMS_ITS | Encounter Summary ---
Author Organization [facility] Healthcare Address [address] [place] [address] Care Team Providers Care Seam Finisher Name Role Phone Gerardo Shah MD Primary Care Provider [phone] Suzette Strickland MD Unavailable [phone] Rita Tapia RN Unavailable [phone] Encounter Details Date Type Department Care Team (Late st Contact Info) Description 05/17/2023 Telephone [facility] Transplant Kidney [address] [facility] [address] [phone] [place], [place] [id number] Rita Tapia RN [address] [place], [place] [id number] Social History Tobacco Use Types Packs/Day Years Used Date Smoking Tobacco: Former Cigarettes 1.5 40 0 04/11/1978 - 2017 Smokeless Tobacco: Never Alcohol Use Standard Drinks/Week Comments Yes 1 (1 standard drink = 0.6 oz pur e alcohol) OCC Sex and Gender Information Value Date Recorded Sex Assigned at Not on file Legal Sex Male 4:54 AM GRADUATE RECRUITER Gender Identity Not on file Sexual Orientation Straight 05/03/2020 10 :36 AM CDT documented as of this encounter Miscellaneous Notes * Telephone Encounter - Rita Tapia RN - 05/17/2023 10:57 AM CDT Received cardiac cath results from 05/16/23. Added to checklist documented in this encounter Plan of Treatment Scheduled Procedures Name Priority Associated Diagnoses Date/Ti me TRANSPLANT KIDNEY ESRD (end stage renal disease) ([facility]) documented as of this encounter Visit Diagnoses Not on filedocumented in this encounter Care Teams Seam Finisher Relationship Specialty Start Date End Date Gerardo Shah MD PCP - General Internal Medicine 09/30/18 Suzette Strickland MD [address] [facility] [address] [place] [address] Referring Physician Nephrology 02/15/20 Rita Tapia, RN [address] [place], [place] [id number] Registered Nurse Back Line Cook 02/15/20 documented as of this encounter
--- OUTSIDE RECORDS SUMMARY | 2024-10-16 06:36 | XMS_ITS | Encounter Summary ---
Author Organization [facility] Healthcare Address [address] [place] [address] Care Team Providers Care Commercial Lawn Specialist Name Role Phone Gerardo Shah MD Primary Care Provider [phone] Suzette Strickland MD Unavailable [phone] Rita Tapia RN Unavailable [phone] Encounter Details Date Type Department Care Team (Late st Contact Info) Description 07/29/2023 Documentation [facility] Transplant Kidney [id number] [place], [place] [id number] Rita Tapia, RN [address] [place], [place] [id number] Social History Tobacco Use Types Packs/Day Years Used Date Smoking Tobacco: Former Cigarettes 1.5 40 0 04/11/1978 - 2017 Smokeless Tobacco: Never Alcohol Use Standard Drinks/Week Comments Yes 1 (1 standard drink = 0.6 oz pur e alcohol) OCC Sex and Gender Information Value Date Recorded Sex Assigned at Not on file Legal Sex Male 4:54 AM SENIOR COMMISSARY AGENT Gender Identity Not on file Sexual Orientation Straight 05/03/2020 10 :36 AM CDT documented as of this encounter Plan of Treatment Scheduled Procedures Name Priority Associated Diagnoses Date/Ti me TRANSPLANT KIDNEY ESRD (end stage renal disease) ([facility]) documented as of this encounter Visit Diagnoses Not on filedocumented in this encounter Care Teams Commercial Lawn Specialist Relationship Specialty Start Date End Date Gerardo Shah MD PCP - General Internal Medicine 09/30/18 Suzette Strickland MD [address] [facility] [address] [place] [address] Referring Physician Nephrology 02/15/20 Rita Tapia, RN [address] [place] [address] Registered Nurse Plug Grower 02/15/20 documented as of this encounter
--- OUTSIDE RECORDS SUMMARY | 2024-10-16 06:36 | XMS_ITS | Encounter Summary ---
Author Organization [facility] Healthcare Address [address] [place] [address] Care Team Providers Care Water Conservationist Name Role Phone Gerardo Shah MD Primary Care Provider [phone] Suzette Strickland MD Unavailable [phone] Rita Tapia RN Unavailable [phone] Encounter Details Date Type Department Care Team (Latest Contact Info) Description 08/05/2023 10:00 AM CDT - 08/05/2023 11:59 PM CDT Hospital Encounter [address] [address] 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) ([facility]) Discharge Disposition: Discharge to home [...] on file Legal Sex Male 4:54 AM MANAGER FOOD BEVERAGE Gender Identity Not on file Sexual Orientation [...] stage renal disease) ([facility]) documented as of this encounter Procedures Procedure Name Priority Date/Time Associated Diagnosis Comments HLA ANTIBODY SCREEN BY PRA OR SAB PER SCHEDULE (CLASS I AND CLASS II) Routine 08/05/2023 10:00 AM CDT Stage 5 chronic kidney disease on chronic dialysis ([facility]) ([facility]) documented in this encounter Results * HLA Antibody Screen by PRA or SAB per Schedule (Class I and Class II) (08/05/2023 10:00 AM CDT) Blood 08/05/2023 10:0 0 AM CDT Narrative HISTOTRAC - MANAGER FOOD BEVERAGE Sample received in lab and stored. ??No testing performed at this time. us Perla Valadez MD LAB BLOOD ORDERABLE S Final Result HISTOTRAC documented in this encounter Visit Diagnoses Diagnosis 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) (HCC) documented in this encounter Care Teams Water Conservationist Relationship Specialty Start Date End Date Gerardo Shah MD PCP - General Internal Medicine 09/30/18 Suzette Strickland MD [address] [facility] [address] [place] [address] Referring Physician Nephrology 02/15/20 Rita Tapia, RN [address] [place] [address] Registered Nurse Plastic Bubble Packer 02/15/20 documented as of this encounter
--- OUTSIDE RECORDS SUMMARY | 2024-10-16 06:37 | XMS_ITS | Encounter Summary ---
Author Organization [facility] Healthcare Address [address] [place] [address] Care Team Providers Care Spike Machine Feeder Name Role Phone Gerardo Shah MD Primary Care Provider [phone] Suzette Strickland MD Unavailable [phone] Rita Tapia RN Unavailable Reason for Referral * Diagnostic Imaging (Routine) - Closed Specialty Diagnoses / Procedures Referred By Contac t Referred To Contact Diagnoses 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) (HCC) Procedures XR Orthopantogram Panorex Perla Valadez MD [address] [place] [address] Phone: tel: fax: [facility] [address] [place] [address] Referral ID Status Reason Start Date Expiration Date Visits Re quested Visits Authorized [id number] Closed 09/06/2022 10/06/2023 1 1 NICAL INSPECTOR Reason for Visit * Diagnostic Imaging (Routine) - Closed Specialty Diagnoses / Procedures Referred By Contac t Referred To Contact Diagnoses 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) (HCC) Procedures XR Orthopantogram Panorex Perla Valadez MD [address] [place] [address] Phone: tel: fax: [facility] [address] [facility] [place] [address] Referral ID Status Reason Start Date Expiration Date Visits Re quested Visits Authorized [id number] Closed 09/06/2022 10/06/2023 1 1 Encounter Details Date Type Department Care Team (Latest Contact Info) Description 11/08/2022 8:18 AM TECHNICAL INSPECTOR - 11/08/2022 9:25 AM TECHNICAL INSPECTOR Hospital Encounter [facility] [address] [place] [id number] 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) ([facility]) Discharge Disposition: Discharge to home [...] on file Legal Sex Male 4:54 AM TECHNICAL INSPECTOR Gender Identity Not on file Sexual Orientation [...] BY MOUTH EVERY MORNING 90 tablet 2 04/24/2022 3 metoprolol tartrate (LOPRESSOR) 25 mg immediate release tablet TAKE ONE TABLET BY MOUTH TWICE A DAY 180 tablet 1 10/23/2022 3 nitroglycerin (NITROSTAT) 0.[address] 1 tablet (0.4 mg total) under the tongue every 5 (five) minutes as needed 09/30/2018 3 documented as of this encounter Discharge Disposition Disposition Code Departure Means Destination Discharge to home or self care documented in this encounter Plan of Treatment Scheduled Procedures Name Priority Associated Diagnoses Date/Ti me TRANSPLANT KIDNEY ESRD (end stage renal disease) ([facility]) documented as of this encounter Procedures Procedure Name Priority Date/Time Associated Diagnosis Comments XR ORTHOPANTOGRAM/PA NOREX Schedule Routine, Read Routine (OP Routine) 11/08/2022 9:13 AM TECHNICAL INSPECTOR Stage 5 chronic kidney disease on chronic dialysis ([facility]) ([facility]) documented in this encounter Results * XR Orthopantogram Panorex (11/08/2022 9:13 AM TECHNICAL INSPECTOR) Anatomical Region Laterality Modality Head and Neck N/A Panoramic X-Ray 11/08/2022 9:15 AM TECHNICAL INSPECTOR Impressions 11/08/2022 9:15 AM TECHNICAL INSPECTOR 1. ??No mandibular dental sophie or periapical abscess. Electronically signed by: Abraham Byers M.D. Narrative 11/08/2022 9:15 AM TECHNICAL INSPECTOR EXAMINATION: XR ORTHOPANTOGRAM/PANOREX HISTORY: Prerenal transplantation evaluation FINDINGS: 2 Panorex images are performed with comparison 06/08/2021. ??The maxillary is edentulous. ??There are multiple absent mandibular teeth. No mandibular dental sophie or periapical lucency. Procedure Note Abraham Byers MD - 11/08/2022 EXAMINATION: XR ORTHOPANTOGRAM/PANOREX HISTORY: Prerenal transplantation evaluation FINDINGS: 2 Panorex images are performed with comparison 06/08/2021. The maxillary is edentulous. There are multiple absent mandibular teeth. No mandibular dental sophie or periapical lucency. IMPRESSION: 1. No mandibular dental sophie or periapical abscess. Electronically signed by: Abraham Byers M.D. Perla Valadez MD IMG XR PROCEDURES F inal Result documented in this encounter Visit Diagnoses Diagnosis 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) (HCC) documented in this encounter Care Teams Spike Machine Feeder Relationship Specialty Start Date End Date Gerardo Shah MD PCP - General Internal Medicine 09/30/18 Suzette Strickland MD [address] [facility] [address] [place] [address] Referring Physician Nephrology 02/15/20 Rita Tapia, RN [address] [place], [place] [id number] Registered Nurse Transit Operations Supervisor 02/15/20 documented as of this encounter
--- OUTSIDE RECORDS SUMMARY | 2024-10-16 06:37 | XMS_ITS | Encounter Summary ---
Author Organization [facility] Healthcare Address [address] [place] [address] Care Team Providers Care Optic Fibre Drawer Name Role Phone Gerardo Shah MD Primary Care Provider [phone] Suzette Strickland MD Unavailable [phone] Rita Tapia RN Unavailable [phone] Encounter Details Date Type Department Care Team (Latest Contact Info) Description 04/04/2022 11:00 AM CDT - 04/04/2022 11:59 PM CDT Hospital Encounter [address] [address] ESRD (end stage renal disease) ([facility] ([facility]) Discharge Disposition: Discharge to home [...] on file Legal Sex Male 4:54 AM TALENT ADVISOR Gender Identity Not on file Sexual Orientation [...] TABLET BY MOUTH EVERY MORNING 30 tablet 02/23/2022 2 metoprolol tartrate (LOPRESSOR) 25 mg immediate release tablet TAKE ONE TABLET BY MOUTH TWICE A DAY 180 tablet 1 03/27/2022 2 nitroglycerin (NITROSTAT) 0.[address] 1 tablet (0.4 mg total) under the tongue every 5 (five) minutes as needed 09/30/2018 3 documented as of this encounter Discharge Disposition Disposition Code Departure Means Destination Discharge to home or self care documented in this encounter Plan of Treatment Scheduled Procedures Name Priority Associated Diagnoses Date/Ti me TRANSPLANT KIDNEY ESRD (end stage renal disease) ([facility]) documented as of this encounter Procedures Procedure Name Priority Date/Time Associated Diagnosis Comments HLA ANTIBODY SCREEN BY PRA OR SAB PER SCHEDULE (CLASS I AND CLASS II) Routine 04/04/2022 11:00 AM CDT ESRD (end stage renal disease) ([facility]) ([facility]) HLA ANTIBODY SCREEN BY PRA Routine 04/04/2022 11:00 AM CDT ESRD (end stage renal disease) ([facility]) ([facility]) documented in this encounter Results * Collection Task for HLA Antibody Screen (04/04/2022 11:00 AM CDT) HLA Antibody Screen by PRA Received [facility] Blood 04/04/2022 11:0 0 AM CDT 04/06/2022 3:18 PM CDT Tatianna Moyer MD LAB BLOOD ORDERABL ES Final Result [facility] Department [place] [address] * HLA Antibody Screen by PRA or SAB per Schedule (Class I and Class II) (04/04/2022 11:00 AM CDT) Blood specimen (specimen) 04/04/2022 11:00 AM CDT Narrative HISTOTRAC - TALENT ADVISOR Sample received in lab and stored. ??No testing performed at this time. Tatianna Moyer MD LAB BLOOD ORDERABL ES Final Result Performing Organization Address City/[facility]/ZIP Co de Phone Number HISTOTRAC documented in this encounter Visit Diagnoses Diagnosis ESRD (end stage renal disease) (CMS/HCC) ([facility]) End stage renal disease documented in this encounter Care Teams Optic Fibre Drawer Relationship Specialty Start Date End Date Gerardo Shah MD PCP - General Internal Medicine 09/30/18 Suzette Strickland MD [address] [facility] [address] [place] [address] Referring Physician Nephrology 02/15/20 Rita Tapia, RN [address] [place] [address] Registered Nurse [employer] Assistant Principal 02/15/20 documented as of this encounter
--- OUTSIDE RECORDS SUMMARY | 2024-10-16 06:37 | XMS_ITS | Encounter Summary ---
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) (HCC) Procedures Stress Echo Pharmacologic W Doppler/CF Perla Valadez MD [address] [place] [address] Phone: tel: fax: [facility] [address] [place] [address] Referral ID Status Reason Start Date Expiration Date Visits Re quested Visits Authorized [id number] Closed 09/06/2022 10/06/2023 1 1 LE SORTER * Cardiology (Routine) - Closed Specialty Diagnoses / Procedures Referred By Contac t Referred To Contact Diagnoses 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) (HCC) Procedures ECG 12 lead Perla Valadez MD [address] [place] [id number] Phone: tel: fax: [address] [phone] Referral ID Status Reason Start Date Expiration Date Visits Re quested Visits Authorized [id number] Closed 09/06/2022 10/06/2023 1 1 LE SORTER * Diagnostic Imaging (Routine) - Closed Specialty Diagnoses / Procedures Referred By Contac t Referred To Contact Diagnoses 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) (HCC) Procedures XR Chest Pa Lateral 2 Views Perla Valadez MD [address] [place] [id number] Phone: tel: fax: [address] [phone] Referral ID Status Reason Start Date Expiration Date Visits Re quested Visits Authorized [id number] Closed 09/06/2022 10/06/2023 1 1 LE SORTER * Diagnostic Imaging (Routine) - Closed Specialty Diagnoses / Procedures Referred By Contac t Referred To Contact Diagnoses 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) (HCC) Procedures XR Orthopantogram Panorex Perla Valadez MD [address] [address] Phone: tel: fax: [address] [phone] Referral ID Status Reason Start Date Expiration Date Visits Re quested Visits Authorized [id number] Closed 09/06/2022 10/06/2023 1 1 LE SORTER Encounter Details Date Type Department Care Team (Late st Contact Info) Description 09/06/2022 Telephone [facility] Transplant Kidney [address] [facility] [address] [place] [address] Rita Tapia, RN [address] [place] [address] Social History Tobacco Use Types Packs/Day Years Used Date Smoking Tobacco: Former Cigarettes 1.5 40 0 04/11/1978 - 2017 Smokeless Tobacco: Never Alcohol Use Standard Drinks/Week Comments Yes 1 (1 standard drink = 0.6 oz pur e alcohol) OCC Sex and Gender Information Value Date Recorded Sex Assigned at Not on file Legal Sex Male 4:54 AM BUNDLE SORTER Gender Identity Not on file Sexual Orientation Straight 05/03/2020 10 :36 AM CDT documented as of this encounter Miscellaneous Notes * Telephone Encounter - Rita Tapia RN - 09/06/2022 1:26 PM CST Called patient and discussed need for annual testing. He said he preferred to wait until after the first of the year. I have him scheduled for 11/08/22 as follows: CDL for Dobutamine stress echo at 1030 Please put time on schedule for labs, CXR, EKG, Panorex Please make patient schedule and mail it to patient LE SORTER documented in this encounter Plan of Treatment Pending Results Name Type Priority Associated Diagnoses Date /Time HLA Antibody Screen by PRA or SAB per Schedule (Class I and Class II) Lab Routine Stage 5 chronic kidney disease on chronic dialysis ([facility]) ([facility]) 07/08/2023 10:00 AM CDT Scheduled Orders Name Type Priority Associated Diagnoses Orde r Schedule HLA Antibody Screen by PRA or SAB per Schedule (Class I and Class II) Lab Routine Stage 5 chronic kidney disease on chronic dialysis ([facility]) ([facility]) 12 Occurrences starting 09/06/2022 until 08/23/2024, 9 completed Scheduled Procedures Name Priority Associated Diagnoses Date/Ti me TRANSPLANT KIDNEY ESRD (end stage renal disease) ([facility]) documented as of this encounter Results * HLA Antibody Screen by PRA or SAB per Schedule (Class I and Class II) (04/13/2024 10:00 AM CDT) Blood 04/13/2024 10:0 0 AM CDT Narrative HISTOTRAC - BUNDLE SORTER Sample received in lab. ??Single Antigen Antibody Screen ordered. Perla Valadez MD LAB BLOOD ORDERABLE S Final Result Performing Organization Address [facility] Co de Phone Number HISTOTRAC * HLA Antibody Screen by PRA or SAB per Schedule (Class I and Class II) (03/09/2024 10:00 AM CDT) Blood 03/09/2024 10:0 0 AM CDT Narrative HISTOTRAC - BUNDLE SORTER Sample received in lab and stored. ??No testing performed at this time. Perla Valadez MD LAB BLOOD ORDERABLE S Final Result Performing Organization Address [facility] de Phone Number HISTOTRAC * HLA Antibody Screen by PRA or SAB per Schedule (Class I and Class II) (02/03/2024 10:00 AM CDT) Blood 02/03/2024 10:0 0 AM CDT Narrative HISTOTRAC - BUNDLE SORTER Sample received in lab. ??Single Antigen Antibody Screen ordered. Perla Valadez MD LAB BLOOD ORDERABLE S Final Result Performing Organization Address [facility] de Phone Number HISTOTRAC * HLA Antibody Screen by PRA or SAB per Schedule (Class I and Class II) (12/23/2023 10:00 AM BUNDLE SORTER) Blood 12/23/2023 10:0 0 AM BUNDLE SORTER Narrative HISTOTRAC - BUNDLE SORTER Sample received in lab and stored. ??No testing performed at this time. us Perla Valadez MD LAB BLOOD ORDERABLE S Final Result H[facility] * HLA Antibody Screen by PRA or SAB per Schedule (Class I and Class II) (11/20/2023 10:00 AM BUNDLE SORTER) Blood 11/20/2023 10:0 0 AM BUNDLE SORTER Narrative HISTOTRAC - BUNDLE SORTER Sample received in lab. ??Single Antigen Antibody Screen ordered. us Perla Valadez MD LAB BLOOD ORDERABLE S Final Result H[facility]OTRAC * HLA Antibody Screen by PRA or SAB per Schedule (Class I and Class II) (09/11/2023 10:00 AM BUNDLE SORTER) Blood 09/11/2023 10:0 0 AM BUNDLE SORTER Narrative HISTOTRAC - BUNDLE SORTER Sample received in lab. ??Single Antigen Antibody Screen ordered. us Perla Valadez MD LAB BLOOD ORDERABLE S Final Result Performing Organization Address [facility] Co de Phone Number HISTOTRAC * HLA Antibody Screen by PRA or SAB per Schedule (Class I and Class II) (08/05/2023 10:00 AM CDT) Blood 08/05/2023 10:0 0 AM CDT Narrative HISTOTRAC - BUNDLE SORTER Sample received in lab and stored. ??No testing performed at this time. us Perla Valadez MD LAB BLOOD ORDERABLE S Final Result [facility] * HLA Antibody Screen by PRA or SAB per Schedule (Class I and Class II) (06/12/2023 7:00 AM CDT) Blood 06/12/2023 7:00 AM CDT Narrative HISTOTRAC - BUNDLE SORTER Sample received in lab and stored. ??No testing performed at this time. us Perla Valadez MD LAB BLOOD ORDERABLE S Final Result HISTOTRAC * STRESS ECHO PHARMACOLOGIC W DOPPLER/CF W CONTRAST (11/08/2022 11:04 AM BUNDLE SORTER) LV EF 69 % CARDIOREPORT Anatomical Region Laterality Modality Ultrasound 11/08/2022 10:3 0 AM BUNDLE SORTER Narrative 11/08/2022 11:53 AM BUNDLE SORTER Patient name: Abel Browne Date of test: 11/08/2022 Hospital #: [id number] ?Location: [facility] Interpreted by: Dino Urena MD Technical Training Coordinator: Rosa Maria Starks RDCS RN: Destiny Griffith RN Reason for Test: renal transplant evaluation Study quality: Technically good Referring Physician: PERLA VALADEZ MD Contrast Agent: 1.9 ml Optison Administered, (1.1 ml wasted). BASELINE STUDY: Wall Motion Scoring (1=Normal 2=Hypo 3=Akinetic 4=Dyskin./Aneurysm 0=Not visualized) Parasternal Long Eclectic:MAS=1 BAS=1 MIL=1 KENDRA=1 Parasternal Short Eclectic:MAS=1 MIS=1 HI=1 MIL=1 MAL=1 MA=1 Apical 4 Chambers:=1 MIS=1 BIS=1 BAL=1 MAL=1 AL=1 AC=1 Apical 2 Chambers:AI=1 HI=1 BI=1 BA=1 MA=1 AA=1 AC=1 Ejection Fraction: 69% LV Global Strain: -22% RV Global Strain: -23.9% LV Global Function: Normal left ventricular systolic function. Baseline Echo Comments: Normal LV size and systolic function; LVEF=69%. No segmental wall motion abnormalities. Miild concentric LVH. Biatrial enlargement. Mild RV enlargement with normal function. IVC is normal size. Normal aortic root size. Doppler/CF Comments: trace AR, mild AZ, mild MR, ??No MS, No , No TR. Inadequate TR jet to estimate PASP. Baseline HR: 67 Baseline BP: 113/61 Conduction Defects: None Resting ECG Comments: SR w/ PHILTTWA Medications: metoprolol norvasc asa bumex Meds held: metoprolol POST DOBUTAMINE STUDY: Wall Motion Scoring (1=Normal 2=Hypo 3=Akinetic 4=Dyskin./Aneurysm 0=Not visualized) Parasternal Long Eclectic:MAS=1 BAS=1 MIL=1 KENDRA=1 Parasternal Short Eclectic:MAS=1 MIS=1 HI=1 MIL=1 MAL=1 MA=1 Apical 4 Chambers:=1 MIS=1 BIS=1 BAL=1 MAL=1 AL=1 AC=1 Apical 2 Chambers:AI=1 HI=1 BI=1 BA=1 MA=1 AA=1 AC=1 Intravenous dobutamine was infused to a maximal dose ??30 micro-g/Kg/min. Atropine: 0.3 mg. ?Other Med: Peak HR: 160 Peak BP: 126/61 Post-Exercise Comments: Marked increase in the LV and RV contractility, no segmental wall motion abnormalities. Test terminated: ?? Stress ECG Comments: ??No ischemic changes or arrhythmia. CONTRAST ENHANCEMENT WAS EMPLOYED after initial imaging due to sub-optimal quality related to co-morbidity defined by patient's body habitus. Impression: Maximal Dobutamine Stress Echocardiogram, NEGATIVE for myocardial ischemia. Confirmed on ??11/08/2022 - 11:53:50 by Dino Urena MD ?? Assistant Attorney General: Ishaan Ornelas MD By signing this report, the attending recording artist certifies that he or she has personally supervised and interpreted the echocardiogram and has reviewed and or edited and agrees with the written comments contained within the report. Procedure Note Dino Urena MD - 11/08/2022 Patient name: Abel Browne Date of test: 11/08/2022 Hospital #: [id number] Location: [facility] Interpreted by: Dino Urena MD Technical Training Coordinator: Rosa Maria Starks RDCS RN: Destiny Griffith RN Reason for Test: renal transplant evaluation Study quality: Technically good Referring Physician: PERLA VALADEZ MD Contrast Agent: 1.9 ml Optison Administered, (1.1 ml wasted). BASELINE STUDY: Wall Motion Scoring (1=Normal 2=Hypo 3=Akinetic 4=Dyskin./Aneurysm 0=Not visualized) Parasternal Long Eclectic:MAS=1 BAS=1 MIL=1 KENDRA=1 Parasternal Short Eclectic:MAS=1 MIS=1 HI=1 MIL=1 MAL=1 MA=1 Apical 4 Chambers:=1 MIS=1 BIS=1 BAL=1 MAL=1 AL=1 AC=1 Apical 2 Chambers:AI=1 HI=1 BI=1 BA=1 MA=1 AA=1 AC=1 Ejection Fraction: 69% LV Global Strain: -22% RV Global Strain: -23.9% LV Global Function: Normal left ventricular systolic function. Baseline Echo Comments: Normal LV size and systolic function; LVEF=69%. No segmental wall motion abnormalities. Miild concentric LVH. Biatrial enlargement. Mild RV enlargement with normal function. IVC is normal size. Normal aortic root size. Doppler/CF Comments: trace AR, mild AZ, mild MR, No MS, No , No TR. Inadequate TR jet to estimate PASP. Baseline HR: 67 Baseline BP: 113/61 Conduction Defects: None Resting ECG Comments: SR w/ NSSTTWA Medications: metoprolol norvasc asa bumex Meds held: metoprolol POST DOBUTAMINE STUDY: Wall Motion Scoring (1=Normal 2=Hypo 3=Akinetic 4=Dyskin./Aneurysm 0=Not visualized) Parasternal Long Eclectic:MAS=1 BAS=1 MIL=1 KENDRA=1 Parasternal Short Eclectic:MAS=1 MIS=1 HI=1 MIL=1 MAL=1 MA=1 Apical 4 Chambers:=1 MIS=1 BIS=1 BAL=1 MAL=1 AL=1 AC=1 Apical 2 Chambers:AI=1 HI=1 BI=1 BA=1 MA=1 AA=1 AC=1 Intravenous dobutamine was infused to a maximal dose 30 micro-g/Kg/min. Atropine: 0.3 mg. Other Med: Peak HR: 160 Peak BP: 126/61 Post-Exercise Comments: Marked increase in the LV and RV contractility, no segmental wall motion abnormalities. Test terminated: Stress ECG Comments: No ischemic changes or arrhythmia. CONTRAST ENHANCEMENT WAS EMPLOYED after initial imaging due to sub-optimal quality related to co-morbidity defined by patient's body habitus. Impression: Maximal Dobutamine Stress Echocardiogram, NEGATIVE for myocardial ischemia. Confirmed on 11/08/2022 - 11:53:50 by Dino Urena MD Assistant Attorney General: Ishaan Ornelas MD By signing this report, the attending recording artist certifies that he or she has personally supervised and interpreted the echocardiogram and has reviewed and or edited and agrees with the written comments contained within the report. us Perla Valadez MD CV ECHO PROCEDURES Final Result * XR Orthopantogram Panorex (11/08/2022 9:13 AM BUNDLE SORTER) Anatomical Region Laterality Modality Head and Neck N/A Panoramic X-Ray 11/08/2022 9:15 AM BUNDLE SORTER Impressions 11/08/2022 9:15 AM BUNDLE SORTER 1. ??No mandibular dental sophie or periapical abscess. Electronically signed by: Abraham Byers M.D. Narrative 11/08/2022 9:15 AM BUNDLE SORTER EXAMINATION: XR ORTHOPANTOGRAM/PANOREX HISTORY: Prerenal transplantation evaluation [...] MD IMG XR PROCEDURES F inal Result * XR Chest Pa Lateral 2 Views (11/08/2022 8:42 AM BUNDLE SORTER) Anatomical Region Laterality Modality Body, Chest N/A Computed Radiogr aphy 11/08/2022 10:1 9 AM BUNDLE SORTER Impressions 11/08/2022 10:19 AM BUNDLE SORTER Comparison exam is dated 06/08/2021. The lungs are hyperinflated. ??No confluent pulmonary infiltrates or suspicious pulmonary nodules are seen. The cardiomediastinal silhouette is normal. No change. Electronically signed by: Luciano Vuong M.D. Narrative 11/08/2022 10:19 AM BUNDLE SORTER EXAMINATION: 2 view chest radiograph Procedure Note Luciano Vuong MD - 11/08/2022 EXAMINATION: 2 view chest radiograph IMPRESSION: Comparison exam is dated 06/08/2021. The lungs are hyperinflated. No confluent pulmonary infiltrates or suspicious pulmonary nodules are seen. The cardiomediastinal silhouette is normal. No change. Electronically signed by: Luciano Vuong M.D. Perla Valadez MD IMG XR PROCEDURES F inal Result * ECG 12 lead (11/08/2022 8:33 AM BUNDLE SORTER) Ventricular Rate EKG/Min 65 BPM [facility] Atrial Rate 65 BPM [facility] AZ-Interval (MSEC) 138 ms [facility] QRS-Interval (MSEC) 96 ms [facility] QT-Interval (MSEC) 388 ms [facility] QTc 403 ms [facility] P Eclectic 29 degrees [facility] R Eclectic 55 degrees [facility] T Eclectic 60 degrees [facility] Diagnosis Normal sinus rhythm Normal ECG When compared with ECG of 08-JUN-2021 08:01, No significant change was found Confirmed by MADY SNOW M.D ([id number]) on 11/08/2022 10:20:09 AM [facility] [place] 11/08/2022 8:33 AM BUNDLE SORTER 11/08/2022 10:20 AM BUNDLE SORTER us Perla Valadez MD ECG ORDERABLES Fin al Result [facility] * HLA Antibody Screen by PRA or SAB per Schedule (Class I and Class II) (11/08/2022 8:28 AM BUNDLE SORTER) Blood 11/08/2022 8:28 AM BUNDLE SORTER Narrative HISTOTRAC - BUNDLE SORTER Sample received in lab and stored. ??No testing performed at this time. us Perla Valadez MD LAB BLOOD ORDERABLE S Final Result Performing Organization Address [facility] de Phone Number HISTOTRAC * PSA screen (11/08/2022 8:15 AM BUNDLE SORTER) PSA-Total 0.93 <=5.40 ng/mL [facility] Comment: Interpretive Data ?AGE ? SEX ?REFERENCE [...] last revised 22. Blood 11/08/2022 8:15 AM BUNDLE SORTER 11/08/2022 8:57 AM BUNDLE SORTER us Perla Valadez MD LAB BLOOD ORDERABLE S Final Result [facility] [place] [address] * (ABNORMAL) PTH (11/08/2022 8:15 AM BUNDLE SORTER) PTH 138(H) 15 - 65 pg/mL [facility] Blood 11/08/2022 8:15 AM BUNDLE SORTER 11/08/2022 8:57 AM BUNDLE SORTER us Perla Valadez MD LAB BLOOD ORDERABLE S Final Result Performing Organization Address [facility] Co de Phone Number [facility] Department [place] [address] * Phosphorus (11/08/2022 8:15 AM BUNDLE SORTER) Phosphorus, pl 4.5 2.3 - 4.5 mg/dL [facility] Blood 11/08/2022 8:15 AM BUNDLE SORTER 11/08/2022 8:57 AM BUNDLE SORTER us Perla Valadez MD LAB BLOOD ORDERABLE S Final Result Performing Organization Address [facility] Co de Phone Number [facility] [place] [address] * Hepatitis B core antibody, total (11/08/2022 8:15 AM BUNDLE SORTER) Hep B core IgG/IgM Nonreactive Nonreactive [facility] Blood 11/08/2022 8:15 AM BUNDLE SORTER 11/08/2022 8:57 AM BUNDLE SORTER us Perla Valadez MD LAB MICROBIOLOGY - GENERAL ORDERABLES Final Result [facility] [place] [address] * Hepatitis C antibody (11/08/2022 8:15 AM BUNDLE SORTER) Hep C Ab Nonreactive Nonreactive [facility] Comment:Antibodies to HCV no t detected. Does NOT exclude the possibility of recent exposure to HCV. Current interpretive data was last revised on 22 Blood 11/08/2022 8:15 AM BUNDLE SORTER 11/08/2022 8:57 AM BUNDLE SORTER us Perla Valadez MD LAB MICROBIOLOGY - GENERAL ORDERABLES Final Result Performing Organization Address [facility]/[place] [address] * Hepatitis B Surface Antigen (11/08/2022 8:15 AM BUNDLE SORTER) HepBsAg Nonreactive Nonreactive [facility] Blood 11/08/2022 8:15 AM BUNDLE SORTER 11/08/2022 8:57 AM BUNDLE SORTER us Perla Valadez MD LAB MICROBIOLOGY - GENERAL [place] [address] * Hepatitis B surface antibody (immune status) (11/08/2022 8:15 AM BUNDLE SORTER) HBsAb (immune status) Reactive [facility] Comment:This result is consi stent with immunity to Hepatitis B Virus when used in the setting of routine screening. Current interpretive data was last revised on 22 HBsAb (immune status) index 4,909.0 mIUnits/m L [facility] Comment: The method for this assay was changed on 08/22/22. Quantitative results are approximately 0.5 log10 higher with the new assay in comparison with the one previously in use. Current interpretive data was last revised on 22. Blood 11/08/2022 8:15 AM BUNDLE SORTER 11/08/2022 8:57 AM BUNDLE SORTER Perla Valadez MD LAB MICROBI OLOGY - GENERAL ORDERABLES Edited Result - Final Performing Organization Address [facility]/ZIP Co de Phone Number [facility] Department [place] [address] * HIV 1/2 Antibody plus p24 Antigen Blood (11/08/2022 8:15 AM BUNDLE SORTER) Pathologist [facility] HIV 1/2 ab + p24 ag Nonreactive Nonreactive [facility] Comment:Nonreactive for HIV- 1 antigen and HIV-1/HIV-2 antibodies. No laboratory evidence of HIV infection. If acute HIV infection is suspected, consider testing for HIV-1 RNA. Current interpretive data was last revised on 22. Blood 11/08/2022 8:15 AM BUNDLE SORTER 11/08/2022 8:57 AM BUNDLE SORTER Perla Valadez MD LAB MICROBIOLOGY - GENERAL ORDERABLES Final Result [facility] [place] [address] * (ABNORMAL) Comprehensive metabolic panel (11/08/2022 8:15 AM BUNDLE SORTER) Sodium 142 135 - 145 mmol/L [facility] Potassium, pl 4.8 3.3 - 4.9 mmol/L [facility] Chloride 100 97 - 110 mmol/L [facility] CO2 32 22 - 32 mmol/L [facility] Anion gap 10 2 - 15 mmol/L [facility] BUN 30(H) 8 - 25 mg/dL [facility] Creatinine 5.82(H) 0.80 - 1.30 mg/dL [facility] Glucose 90 70 - 199 mg/dL [facility] Comment: Interpretive Data Fasting glucose >/= 126 mg/dl is diagnostic for diabetes. ?? Fasting is defined as no caloric intake for at least 8 hours. Fasting glucose between 100 mg/dl to 125 mg/dl is diagnostic of prediabetes. In a patient with classic symptoms of hyperglycemia or hyperglycemic crisis, a random glucose >/= 200 mg/dl is diagnostic for diabetes. In the absence of unequivocal hyperglycemia, results should be confirmed by repeat testing. The classification and Diagnosis of Diabetes Diabetes Care 2017;40 (Suppl. 1):S11. Current interpretive data was last revised 2017. Calcium 8.9 8.5 - 10.3 mg/dL [facility] Bilirubin, total 0.6 0.1 - 1.2 mg/dL [facility] Protein, pl 7.1 6.5 - 8.5 g/dL [facility] Albumin 4.5 3.5 - 5.0 g/dL [facility] Alk phos 68 40 - 130 Units/L [facility] ALT 23 7 - 55 Units/L [facility] AST 17 10 - 50 Units/L [facility] Blood 11/08/2022 8:15 AM BUNDLE SORTER 11/08/2022 8:57 AM BUNDLE SORTER us Perla Valadez MD LAB BLOOD ORDERABLE S Final Result [facility] [place] [address] * (ABNORMAL) CBC with auto differential (11/08/2022 8:15 AM BUNDLE SORTER) Pathologist [facility] WBC 7.4 3.8 - 9.9 K/cumm [facility] Hgb 12.1(L) 13.0 - 17.5 g/dL [facility] Hct 38.1(L) 38.9 - 50.3 % [facility] Plt 285 150 - 400 K/cumm [facility] MPV 9.5 9.1 - 12.3 fL [facility] RBC 3.67(L) 4.30 - 5.80 M/cumm [facility] MCV 103.8(H) 81.3 - 96.4 fL [facility] MCH 33.0 27.1 - 33.3 pg [facility] MCHC 31.8(L) 32.3 - 35.7 g/dL [facility] RDW CV 13.5 11.1 - 14.9 % [facility] RDW SD 52.1(H) 35.7 - 48.1 fL [facility] NRBC abs 0.00 0.00 - 0.01 K/cumm [facility] Blood 11/08/2022 8:15 AM BUNDLE SORTER 11/08/2022 8:57 AM BUNDLE SORTER us Perla Valadez MD LAB BLOOD ORDERABLE S Final Result [facility] [place] [address] documented in this encounter Visit Diagnoses Diagnosis 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) (HCC)- Primary 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) (HCC) 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) (HCC) 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) (HCC) 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) (HCC) 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) (HCC) 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) (HCC) 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) (HCC) 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) (HCC) 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) (HCC) 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
--- OUTSIDE RECORDS SUMMARY | 2024-10-16 06:37 | XMS_ITS | Encounter Summary ---
Author Organization [facility] Healthcare Address [address] [place] [address] Care Team Providers Care Fruit Grader Name Role Phone Gerardo Shah MD Primary Care Provider Suzette Strickland MD Unavailable Rita Tapia RN Unavailable [phone] Reason for Referral * Cardiology (Routine) - Closed Specialty Diagnoses / Procedures Referred By Contac t Referred To Contact Diagnoses 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) (HCC) Procedures ECG 12 lead Perla Valadez MD [address] [place] [address] Phone: tel: fax: [facility] [address] [place] [address] Referral ID Status Reason Start Date Expiration Date Visits Re quested Visits Authorized [id number] Closed 09/06/2022 10/06/2023 1 1 INE GRAINER Reason for Visit * Cardiology (Routine) - Closed Specialty Diagnoses / Procedures Referred By Contac t Referred To Contact Diagnoses 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) (HCC) Procedures ECG 12 lead Perla Valadez MD [address] [place] [address] Phone: tel: fax: [facility] 1 [facility] [place] [address] Referral ID Status Reason Start Date Expiration Date Visits Re quested Visits Authorized [id number] Closed 09/06/2022 10/06/2023 1 1 Encounter Details Date Type Department Care Team (Latest Contact Info) Description 11/08/2022 8:18 AM MACHINE GRAINER - 11/08/2022 9:25 AM MACHINE GRAINER Hospital Encounter [facility] [address] [place] [address] Stage 5 chronic kidney disease on chronic [...] file Legal Sex Male 4:54 AM MACHINE GRAINER Gender Identity Not on file Sexual Orientation [...] TRANSPLANT KIDNEY ESRD (end stage renal disease) ([facility]) documented as of this encounter Procedures Procedure Name Priority Date/Time Associated Diagnosis Comments ECG 12-LEAD Routine 11/08/2022 8:33 AM MACHINE GRAINER Stage 5 chronic kidney disease on chronic dialysis ([facility]) ([facility]) documented in this encounter Results * ECG 12 lead (11/08/2022 8:33 AM MACHINE GRAINER) Ventricular Rate EKG/Min 65 BPM [facility] Atrial Rate 65 BPM [facility] GA-Interval (MSEC) 138 ms [facility] QRS-Interval (MSEC) 96 ms [facility] QT-Interval (MSEC) 388 ms [facility] QTc 403 ms [facility] P [place] 29 degrees [facility] R [place] 55 degrees [facility] T [place] 60 degrees [facility] Diagnosis Normal sinus rhythm Normal ECG When compared with ECG of 08-JUN-2021 08:01, No significant change was found Confirmed by MADY SNOW M.D ([id number]) on 11/08/2022 10:20:09 AM [facility] 11/08/2022 8:33 AM MACHINE GRAINER 11/08/2022 10:20 AM [facility] us Perla Valadez MD ECG ORDERABLES Fin al Result [facility] documented in this encounter Visit Diagnoses Diagnosis Stage 5 chronic kidney disease on chronic dialysis ([facility]) ([facility]) documented in this encounter Care Teams Fruit Grader Relationship Specialty Start Date End Date Gerardo Shah MD PCP - General Internal Medicine 09/30/18 Suzette Strickland MD [address] [facility] [address] [place] [address] Referring Physician Nephrology 02/15/20 Rita Tapia, RN [address] [place] [address] Registered Nurse Investigation Officer 02/15/20 documented as of this encounter
--- OUTSIDE RECORDS SUMMARY | 2024-10-16 06:37 | XMS_ITS | Encounter Summary ---
Author Organization [facility] Healthcare Address [address] [place] [address] Care Team Providers Care Bin Tripper Operator Name Role Phone Gerardo Shah MD Primary Care Provider [phone] Suzette Strickland MD Unavailable [phone] Rita Tapia RN Unavailable [phone] Encounter Details Date Type Department Care Team (Late st Contact Info) Description 09/06/[address] [facility] Transplant Kidney [address] [address] Mailstop [phone] [place] [address] Landy Sumner Social History Tobacco Use Types Packs/Day Years Used Date Smoking Tobacco: Former Cigarettes 1.5 40 0 04/11/1978 - 2017 Smokeless Tobacco: Never Alcohol Use Standard Drinks/Week Comments Yes 1 (1 standard drink = 0.6 oz pur e alcohol) OCC Sex and Gender Information Value Date Recorded Sex Assigned at Not on file Legal Sex Male 4:54 AM NURSING HOME PHYSICIAN Gender Identity Not on file Sexual Orientation Straight 05/03/2020 10 :36 AM CDT documented as of this encounter Progress Notes * Landy Sumner - 09/06/2022 2:34 PM CST Scheduled annual testing appointments for 11/08/2022. Saved schedule to chart. Mailed schedule, med list and campus map to patient. ING HOME PHYSICIAN documented in this encounter Plan of Treatment Scheduled Procedures Name Priority Associated Diagnoses Date/Ti me TRANSPLANT KIDNEY ESRD (end stage renal disease) ([facility]) documented as of this encounter Visit Diagnoses Not on filedocumented in this encounter Care Teams Bin Tripper Operator Relationship Specialty Start Date End Date Gerardo Shah MD PCP - General Internal Medicine 09/30/18 Suzette Strickland MD [address] [facility] [address] [place] [address] Referring Physician Nephrology 02/15/20 Rita Tapia, RN [address] [place] [address] Registered Nurse Trencher Driver 02/15/20 documented as of this encounter
--- OUTSIDE RECORDS SUMMARY | 2024-10-16 06:37 | XMS_ITS | Encounter Summary ---
Author Organization [facility] Healthcare Address [address] [place] [address] Care Team Providers Care Electroplater Automatic Name Role Phone Gerardo Shah MD Primary Care Provider [phone] Suzette Strickland MD Unavailable [phone] Rita Tapia RN Unavailable [phone] Reason for Visit * Reason Onset Date Comments Waitlist Maintenance 01/31/2022 Encounter Details Date Type Department Care Team (Late st Contact Info) Description 01/31/2022 Telephone [facility] Transplant Kidney [address] [address] Mailstop [phone] [place] [address] Shahnaz Zamarripa Waitlist Maintenance Social History Tobacco Use Types Packs/Day Years Used Date Smoking Tobacco: Former Cigarettes 1.5 40 0 04/11/1978 - 2017 Smokeless Tobacco: Never Alcohol Use Standard Drinks/Week Comments Yes 1 (1 standard drink = 0.6 oz pur e alcohol) OCC Sex and Gender Information Value Date Recorded Sex Assigned at Not on file Legal Sex Male 4:54 AM BOREMATIC OPERATOR Gender Identity Not on file Sexual Orientation Straight 05/03/2020 10 :36 AM CDT documented as of this encounter Miscellaneous Notes * Telephone Encounter - ZamarripaErin whatleyra - 02/01/2022 11:10 AM CDT Spoke to patient on the phone. Encouraged patient to contact nurse with any questions. Reviewed the following: Demographics (email, address, phone numbers): No changes Patient contacts: No changes Insurance carriers: Confirmed [employer] as primary and Medicare A&B as secondary insurance I reminded patient of the importance of notifying the transplant center right away of any insurancechanges. Employment status and financial situation: No changes Dialysis: No changes Weight: Patient self reported being 191.6 pounds. BMI:23.9 Medical issues (hospitalizations, medical conditions, illnesses, infections, procedures, open wounds, new diagnoses, or positive COVID results): None reported COVID Vaccinations: None reported Social Issues/Questions: None reported documented in this encounter Plan of Treatment Scheduled Procedures Name Priority Associated Diagnoses Date/Ti me TRANSPLANT KIDNEY ESRD (end stage renal disease) ([facility]) documented as of this encounter Visit Diagnoses Not on filedocumented in this encounter Care Teams Electroplater Automatic Relationship Specialty Start Date End Date Gerardo Shah MD PCP - General Internal Medicine 09/30/18 Suzette Strickland MD [address] [facility] [address] [place] [address] Referring Physician Nephrology 02/15/20 Rita Tapia, RN [address] [place] [address] Registered Nurse Assembly Manager 02/15/20 documented as of this encounter
--- OUTSIDE RECORDS SUMMARY | 2024-10-16 06:37 | XMS_ITS | Encounter Summary ---
Author Organization [facility] Healthcare Address [address] [place] [address] Care Team Providers Care Sash Assembler Name Role Phone Gerardo Shah MD Primary Care Provider Suzette Strickland MD Unavailable [phone] Rita Tapia RN Unavailable [phone] Encounter Details Date Type Department Care Team (Late st Contact Info) Description 11/28/2022 6:00 PM STAIN WIPER Social Work [facility] Transplant Center [address] [place] [address], [address] Floor, [place] [address] Social History Tobacco Use Types Packs/Day Years Used Date Smoking Tobacco: Former Cigarettes 1.5 40 0 04/11/1978 - 2017 Smokeless Tobacco: Never Alcohol Use Standard Drinks/Week Comments Yes 1 (1 standard drink = 0.6 oz pur e alcohol) OCC Sex and Gender Information Value Date Recorded Sex Assigned at Not on file Legal Sex Male 4:54 AM STAIN WIPER Gender Identity Not on file Sexual Orientation Straight 05/03/2020 10 :36 AM CDT documented as of this encounter Progress Notes * Marie Rodriguez LCSW - 11/28/2022 6:00 PM CST Kidney Transplant Social Work Reassessment Patient Name: Abel Browne Date of : 1960 Date of Initial Assessment: 04/12/2020 Date of Reassessment: 11/28/2022 Referral Reason: Annual Reassessment Referral Source: Social Work Evaluation Method: Telephone People Present During Assessment: Pt & BUSINESS DEVELOPMENT MANAGER Sources of Information: Pt & Medical Record. Medical Status Patient initially listed for transplant on 08/03/2020, and his current status is active. Pt starteddialysis (CHD) in 10/2020. Patient remains compliant with dialysis, and reports no concerns with dialysis compliance or medication management at this time. Patient remains independent with ADLs, doesnot use any assistive equipment at home, and drives. AD/POA Has Court-Appointed Guardian? No Has AD/POA on file?No Has Healthcare Power of Equipment Operator/Laborer on file? No BUSINESS DEVELOPMENT MANAGER mailed pt AD/DPOA document and information to review. Pt to complete at own discretion. Living Arrangements / Social Support Current address confirmed as [address] [place] [address]. Patient currently lives with hiswife, Blanquita and his mother in law, Yuridia (87yo). Patient's social support system consists of his wifeand his two sisters (Meghann and Nicko). Patient's , Blanquita (#[phone]) will be primary caregiverpost transplant, and Meghann (sister, #[phone]) will be provide additional support as needed. Patient's living situation and social support remains adequate to support him post-transplant. Employment / Income / Insurance Patient is disabled. His household income consists of his SSDI and his 's wages. Patient reports his financial situation to be stable, and confirms no issues meeting his basic needs at this time.Additioanlly, pts sister has provided financial support in the past when needed. Patient's insurance coverage includes Medicare A&B and UMR ([facility]) through his 's employer, and he uses [facility]. Pt is receiving AKF assistance with his insurance premiums. SW reviewed [...] health treatment(therapy, psychiatric medications, etc.) He describes feeling acceptance towards dialysis and understands the purpose of this treatment. Pt is intentional about staying active and reportedly walks 5 miles every day, which helps him to cope. He denies any significant changes in his mood, SI/HI, orhx of SA. Substance Use Tobacco: Pt has a 40 year smoking hx, smoking 1.5ppd. He quit smoking after he had a heart attack 5years ago and has maintained abstinence. Alcohol: Pt has a hx of social alcohol use. He describes drinking less frequent d/t fluid restrictions. He denies a hx or presence of excessive/uncontrolled alcohol use, dependency, or treatment (AA/rehab). Illicit Drug: None Reported. Impressions: Reassessment complete. Patient is 62 years old and remains actively waitlisted for [...] His insurance coverage includes Medicare A&B and UMR ([facility]). Patient remains independent with ADLs, and there have been no major changes to his functional status since initial assessment. Based on the information patient provided, patient appears to continue to be capable of following a post-transplant regimen and remains an adequate candidate for transplant from a psychosocial perspective. Recommendations: Psychosocial Reassessment: Complete. Caregiver Plan: Patient's caregiver will be Blanquita (#[phone]) . Patient's backup caregiver will be pts sisterMeghann (#[phone]) Employment Plan: Patient is disabled. Medication Access After Transplant: Patient's insurance coverage includes Medicare A&B and UMR ([facility]) through his 's employer, and he uses [facility]. AD/DPOA: Pt has not completed AD/DPOA paperwork. BUSINESS DEVELOPMENT MANAGER mailed pt AD/DPOA document and information toreview. Pt to complete at own discretion. Goals: Patient will continue to adhere to the pre-transplant treatment plan and following transplant team recommendations. Plan: Social work will collaborate with transplant team and patient will continue to await donor offer. SEAN Landa, BUSINESS DEVELOPMENT MANAGER [phone] N WIPER documented in this encounter Plan of Treatment Scheduled Procedures Name Priority Associated Diagnoses Date/Ti me TRANSPLANT KIDNEY ESRD (end stage renal disease) ([facility]) documented as of this encounter Visit Diagnoses Not on filedocumented in this encounter Care Teams Sash Assembler Relationship Specialty Start Date End Date Gerardo Shah MD PCP - General Internal Medicine 09/30/18 Suzette Strickland MD [facility] [address] [place] [address] Referring Physician Nephrology 02/15/20 Rita Tapia, RN [address] [place], [place] [id number] Registered Nurse Board Design Engineer 02/15/20 documented as of this encounter
--- OUTSIDE RECORDS SUMMARY | 2024-10-16 06:37 | XMS_ITS | Encounter Summary ---
Author Organization [facility] Address [address] [place] [facility] [address] [place] [address] Care Team Providers Care Bridge Tender Name Role Phone Gerardo Shah MD Primary Care Provider [phone] Suzette Strickland MD Unavailable [phone] Rita Tapia RN Unavailable [phone] Reason for Visit * Reason Comments Chest Pain 1 year fu Encounter Details Date Type Department Care Team (Late st Contact Info) Description 03/13/2022 10:00 AM CDT Office Visit [facility] Cardiology [address] [place] [address] Donaldo Tee MD [address] [facility] [address] [facility] [address] [place], [place] [address] Encounter for surgical aftercare following surgery of circulatory system (Primary Dx); Lipid screening Social History Tobacco Use Types Packs/Day Years Used Date Smoking Tobacco: Former Cigarettes 1.5 40 0 04/11/1978 - 2017 Smokeless Tobacco: Never Alcohol Use Standard Drinks/Week Comments Yes 1 (1 standard drink = 0.6 oz pur e alcohol) OCC Sex and Gender Information Value Date Recorded Sex Assigned at Not on file Legal Sex Male 4:54 AM SALES ENABLEMENT LEAD Gender Identity Not on file Sexual Orientation Straight 05/03/2020 10 :36 AM CDT documented as of this encounter Last Filed Vital Signs Vital Sign Reading Time Taken Comments Blood Pressure 124/72 03/13/2022 9:53 AM CDT Pulse 70 03/13/2022 9:53 AM CDT Temperature - - Respiratory Rate - - Oxygen Saturation 97% 03/13/2022 9:53 AM CDT Inhaled Oxygen Concentration - - Weight 86.6 kg (191 lb) 03/13/2022 9:53 AM CDT Height 190.5 cm (6' 3 ) 03/13/2022 9:53 AM CDT Body Mass Index 23.87 03/13/2022 9:53 AM CDT documented in this encounter Progress Notes * Donaldo Tee MD - 03/13/2022 10:00 AM CDT [facility] FOLLOW UP 03/13/2022 Abel Browne is a 62 y.o. male who presents for follow up [...] He was undergoing a transplant workup at [facility] and a stress echocardiogram was done which was a negative exam as expected since he is not known to have any coronary disease. His renal disease has progressed to end-stage renal disease requiring hemodialysis 3 times per week. The patient returns to the office for scheduled follow-up. He returns today and has no cardiovascular complaints to report he is frustrated primarily about him being on dialysis and the imposition that is on his personal schedule. Other than that he has no cardiovascular symptoms or complaints. He still is on the transplant list at [facility] if an organ becomes available. REVIEW OF SYSTEMS General ROS: negative for [...] and rash HOME MEDICATIONS Current Outpatient Medications: ??? acetaminophen 500 mg capsule, Take 1 capsule (500 mg total) by mouth every 6 (six) hours as needed for pain for up to 30 doses (Patient taking differently: Take 1,000 mg by mouth every 6 (six) hours as needed for pain), Disp: 30 capsule, Rfl: 0 ??? amLODIPine (NORVASC) 5 mg tablet, TAKE ONE TABLET BY MOUTH EVERY MORNING, Disp: 30 tablet, Rfl:0 ??? aspirin 81 mg tablet, Take 81 mg by mouth every morning , Disp: , Rfl: ??? bumetanide (BUMEX) 1 mg tablet, Take 1 mg by mouth every morning , Disp: , Rfl: ??? cyanocobalamin (Vitamin B-12) 1,000 mcg tablet, Take 1,000 mcg by mouth every morning , Disp: ,Rfl: ??? famotidine (PEPCID) 20 mg tablet, Take 40 mg by mouth daily, Disp: , Rfl: ??? lidocaine-prilocaine cream, , Disp: , Rfl: ??? metoprolol tartrate (LOPRESSOR) 25 mg immediate release tablet, TAKE ONE TABLET BY MOUTH TWICE A DAY, Disp: 180 tablet, Rfl: 1 ??? nitroglycerin (NITROSTAT) 0.4 mg SL tablet, Place 0.4 mg under the tongue every 5 (five) minutes as needed , Disp: , Rfl: LABS AND OTHER DIAGNOSTIC TESTS Lab Results Component Value Date CHOL 161 04/04/2020 Lab Results Component Value Date HDL 38 (L) 04/04/2020 Lab Results Component Value Date LDLCALC 94 04/04/2020 Lab Results Component Value Date TRIG 147 04/04/2020 Lab Results Component Value Date CHOLHDL 4 04/04/2020 Lab Results Component Value Date WBC 5.3 06/08/2021 HGB 11.6 (L) 06/08/2021 HCT 36.0 (L) 06/08/2021 MCV 99.2 (H) 06/08/2021 No lab exists for component: LABALBU PHYSICAL EXAM Vitals BP 124/72 (BP Location: Right arm, Patient Position: Sitting) Pulse 70 Ht 190.5 cm (6' 3 ) Wt 86.6 kg (191 lb) SpO2 97% BMI 23.87 kg/m?? Physical Examination: General appearance - alert, [...] noted ASSESSMENT Abel was seen today for chest pain. Diagnoses and all orders for this visit: Encounter for surgical aftercare following surgery of circulatory system PLAN/RECOMMENDATIONS Continue low-dose calcium channel kathryn therapy as described above I will see him at annual intervals at this point since his coronary spasm has not been a recurrent problem any simply taking a modest dose of Norvasc for this. Donaldo Tee MD documented in this encounter Miscellaneous Notes * Addendum Note - Stephanie Bryan MA - 03/13/2022 10:00 AM CDTAddended by: STEPHANIE BRYAN on: 03/13/2022 10:17 AM Modules accepted: Orders documented in this encounter Plan of Treatment Scheduled Procedures Name Priority Associated Diagnoses Date/Ti me TRANSPLANT KIDNEY ESRD (end stage renal disease) ([facility]) documented as of this encounter Procedures Procedure Name Priority Date/Time Associated Diagnosis Comments POCT LIPID PANEL Routine 03/13/2022 10:1 7 AM CDT Lipid screening documented in this encounter Results * POCT lipid panel (03/13/2022 10:17 AM CDT) Cholesterol, POC 138 mg/dL HDL, POC 28 mg/dL Triglycerides, POC 250 mg/dL LDL Cholesterol POC 60 mg/dL Chol/HDL Ratio, POC 4.9 Non-HDL Cholesterol, POC 110 mg/dL Cholesterol Total, POC 138 mg/dL Capillary blood 03/13/2022 1 0:17 AM CDT us Donaldo Tee MD POINT OF CARE TEST ORDER SARITHA Final Result documented in this encounter Visit Diagnoses Diagnosis Encounter for surgical aftercare following surgery of circulatory system- Primary Lipid screening Screening for lipoid disorders documented in this encounter Care Teams Bridge Tender Relationship Specialty Start Date End Date Gerardo Shah MD PCP - General Internal Medicine 09/30/18 Suzette Strickland MD [address] [facility] [address] [place] [address] Referring Physician Nephrology 02/15/20 Rita Tapia, RN [address] [place], [place] [id number] Registered Nurse Social Service Agency Director 02/15/20 documented as of this encounter
--- OUTSIDE RECORDS SUMMARY | 2024-10-16 06:37 | XMS_ITS | Encounter Summary ---
Author Organization [facility] Healthcare Address [address] [place] [address] Care Team Providers Care Health Care Specialist Name Role Phone Gerardo Shah MD Primary Care Provider [phone] Suzette Strickland MD Unavailable [phone] Rita Tapia RN Unavailable [phone] Reason for Visit * Reason Onset Date Comments Waitlist Maintenance 05/09/2023 Encounter Details Date Type Department Care Team (Late st Contact Info) Description 05/09/2023 Telephone [facility] Transplant Kidney [address] [address] Mailstop [phone] [place] [address] Rhoda Morejon Waitlist Maintenance Social History Tobacco Use Types Packs/Day Years Used Date Smoking Tobacco: Former Cigarettes 1.5 40 0 04/11/1978 - 2017 Smokeless Tobacco: Never Alcohol Use Standard Drinks/Week Comments Yes 1 (1 standard drink = 0.6 oz pur e alcohol) OCC Sex and Gender Information Value Date Recorded Sex Assigned at Not on file Legal Sex Male 4:54 AM MACHINE DEBURRER Gender Identity Not on file Sexual Orientation Straight 05/03/2020 10 :36 AM CDT documented as of this encounter Miscellaneous Notes * Telephone Encounter - Rhoda Morejon - 05/09/2023 2:44 PM CDT Spoke to patient on the phone. Encouraged patient to contact nurse with any questions. Reviewed the following: Demographics (email, address, phone numbers): No changes Patient contacts: No changes Insurance carriers: Patient confirmed [employer] as primary and Medicare A&B as secondary insurance. I reminded patient of the importance of notifying the transplant center right away of any insurancechanges. Employment status and financial situation: No changes Dialysis: Patient stated he now goes to Dialysis at 2pm. Updated in Epic. Weight: Patient self reported being 83.1 kilos BMI 22.9 Medical issues (hospitalizations, medical conditions, illnesses, infections, procedures, open wounds, new diagnoses, or positive COVID results): None reported COVID Vaccinations: None reported Social Issues/Questions: None reported documented in this encounter Plan of Treatment Scheduled Procedures Name Priority Associated Diagnoses Date/Ti me TRANSPLANT KIDNEY ESRD (end stage renal disease) ([facility] documented as of this encounter Visit Diagnoses Not on filedocumented in this encounter Care Teams Health Care Specialist Relationship Specialty Start Date End Date Gerardo Shah MD PCP - General Internal Medicine 09/30/18 Suzette Strickland MD [facility] [address] [place] [address] Referring Physician Nephrology 02/15/20 Rita Tapia, RN [address] [place] [address] Registered Nurse Research Professional 02/15/20 documented as of this encounter
--- OUTSIDE RECORDS SUMMARY | 2024-10-16 06:37 | XMS_ITS | Encounter Summary ---
Author Organization [facility] Address [address] [place] [address] Care Team Providers Care [place] Representative Name Role Phone Gerardo Shah MD Primary Care Provider [phone] Suzette Strickland MD Unavailable [phone] Rita Tapia RN Unavailable [phone] Encounter Details Date Type Department Care Team (Late st Contact Info) Description 05/15/2023 Telephone [facility] Cardiology [address] [facility] [address] [place] [address] Donaldo Tee MD [address] [facility] [address] [place] [address] Social History Tobacco Use Types Packs/Day Years Used Date Smoking Tobacco: Former Cigarettes 1.5 40 0 04/11/1978 - 2017 Smokeless Tobacco: Never Alcohol Use Standard Drinks/Week Comments Yes 1 (1 standard drink = 0.6 oz pur e alcohol) OCC Sex and Gender Information Value Date Recorded Sex Assigned at Not on file Legal Sex Male 4:54 AM LOGISTICS DIRECTOR Gender Identity Not on file Sexual Orientation Straight 05/03/2020 10 :36 AM CDT documented as of this encounter Miscellaneous Notes * Telephone Encounter - Ivory Rodgers RN - 05/15/2023 4:53 PM CDT Spoke with pts spouse reassured her that pt is in good hands. She states that they have drawn bloodand done an EKG. I advised that this is a start to their workup and they would get him in a room assoon as they could. She voiced that she was upset because when EMS came to the house to get pt theymade the comment that they were only instructed to call EMS because the doctor wanted to go home .Advised spouse that we advised him to go to the ER via EMS because he needs more immediate care that we would be able to provide in the office. She verbalizes understanding and very appreciative of return call and conversation. * Telephone Encounter - Caty Zabala - 05/15/2023 4:35 PM CDT Pt spouse states her and her are currently at in the ER as intrusted by Mary. She's panicking because they will not get him into a room until one is available. Pt requesting call back. Contact:[phone] * Telephone Encounter - Mary Navarro RN - 05/15/2023 2:58 PM CDT Records reviewd and briefly discuss with DK. Noted elevated tpn and CP symptoms similar to previousMI on records. Call placed to pt. Only able to speak to pts family member as pt was sleeping to hard after dialysis. She states he asks if he can call me back. I asked if he has any CP and told her Iwould really like to speak to him as I am considering sending him back to the ER. He states he is not really having any more CP but some trouble swallowing and throwing up. Advised pt to go to the ER for evaluation. * Telephone Encounter - Kadi Tee MA - 05/15/2023 1:33 PM CDT Records received from [facility]. Records given to LEYDI Hernandez to review since Dr. Tee is out of the office this afternoon. She will contact patient's . * Telephone Encounter - Marivel Siddiqui - 05/15/2023 9:02 AM CDT Pt spouse states pt was taken to [facility] on 05/13 because he was having severe chest pain.States pts troponin levels were 155. Spouse is requesting we get those records for [facility] to review. Contact: documented in this encounter Plan of Treatment Scheduled Procedures Name Priority Associated Diagnoses Date/Ti me TRANSPLANT KIDNEY ESRD (end stage renal disease) ([facility]) documented as of this encounter Visit Diagnoses Not on filedocumented in this encounter Care Teams U.[place]. Representative Relationship Specialty Start Date End Date Gerardo Shah MD PCP - General Internal Medicine 09/30/18 Suzette Strickland MD [facility] [address] [place] [address] Referring Physician Nephrology 02/15/20 Rita Tapia RN [address] [place] [address] Registered Nurse Group Exercise Class Instructor 02/15/20 documented as of this encounter
--- OUTSIDE RECORDS SUMMARY | 2024-10-16 06:37 | XMS_ITS | Encounter Summary ---
Author Organization [facility] Address [address] [facility] [address] [place] [address] Phone Care Team Providers Care Mailing Specialist Name Role Phone Gerardo Shah MD Primary Care Provider [phone] Suzette Strickland MD Unavailable [phone] Rita Tapia RN Unavailable [phone] Reason for Referral * MRI/CAT/PET Scan (Routine) - Closed Specialty Diagnoses / Procedures Referred By Kishore elkins Referred To Contact Radiology Diagnoses Malignant neoplasm of right kidney (HCC) Procedures MRI Abdomen WO Contrast Quique Guzman NP [address] [facility] [place] [address] Phone: tel: fax: [address] [phone] Referral ID Status Reason Start Date Expiration Date Visits Re quested Visits Authorized [id number] Closed 09/11/2022 10/11/2023 1 1 AL PROJECT MANAGER Reason for Visit * Reason Comments Malignant neoplasm right kidney F/u appt , discuss imagingDialysisPt has concerns regarding weight gain * Consultation (Routine) - Closed Specialty Diagnoses / Procedures Referred By Kishore elkins Referred To Contact Urology Diagnoses End-stage renal disease (ESRD) (CMS/HCC) (HCC) Gerardo Shah MD Phone: tel: fax: [facility] (All Locations) Referral ID Status Reason Start Date Expiration Date V isits Requested Visits Authorized [id number] Closed Specialty Services Required 03/14/2022 04/13/2023 99 99 Encounter Details Date Type Department Care Team (Late st Contact Info) Description 09/11/2022 9:20 AM GLOBAL PROJECT MANAGER Office Visit [facility] - [facility] Urology [address] [facility] 11th [place] [address] [place] [address] Quique Guzman NP [address] [place] [address] Malignant neoplasm of right kidney (CMS/HCC) (HCC) (Primary Dx); End-stage renal disease (ESRD) (CMS/HCC) (HCC) Social History Tobacco Use Types Packs/Day Years Used Date Smoking Tobacco: Former Cigarettes 1.5 40 0 04/11/1978 - 2017 Smokeless Tobacco: Never Alcohol Use Standard Drinks/Week Comments Yes 1 (1 standard drink = 0.6 oz pur e alcohol) OCC Sex and Gender Information Value Date Recorded Sex Assigned at Not on file Legal Sex Male 4:54 AM GLOBAL PROJECT MANAGER Gender Identity Not on file Sexual Orientation Straight 05/03/2020 10 :36 AM CDT documented as of this encounter Progress Notes * Quique Guzman NP - 09/11/2022 9:20 AM CST Urology Note: Appointment with Quique Guzman NP CHIEF COMPLAINT: RCC HISTORY OF PRESNT ILLNESS: 62 y.o. y/o male with history of ADPCKD, on dialysis. Patient Dr. Juarez and Lux. 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 MRI today shows no evidence of disease recurrence today. He denies GH. PHYSICAL EXAM: General: Healthy-appearing male in no acute distress Radiolgy: MRI Abdomen 09/11/22 IMPRESSION: 1. Postsurgical changes from right nephrectomy with no noncontrast MR evidence of locally recurrent tumor. 2. Unchanged findings of polycystic liver and kidney disease. ASSESSMENT/PLAN 62 y.o. y/o male with history of polycystic kidney disease who had a right nephrectomy area with a small focus of papillary RCC in 2019. Follow-up MRI today shows no evidence of recurrence. The plan on repeat imaging (MRI) in 1 year. This note was generated by speech recognition software and may contain homophonic word substitutions or errors, please contact me for any questions. AL PROJECT MANAGER documented in this encounter Plan of Treatment Scheduled Procedures Name Priority Associated Diagnoses Date/Ti me TRANSPLANT KIDNEY ESRD (end stage renal disease) (CMS/HCC) documented as of this encounter Procedures Procedure Name Priority Date/Time Associated Diagnosis Comments POCT URINALYSIS DIPSTICK Routine 09/11/2022 9:00 AM GLOBAL PROJECT MANAGER Malignant neoplasm of right kidney (CMS/HCC) (HCC) documented in this encounter Results * MRI Abdomen WO Contrast (09/10/2023 8:42 AM GLOBAL PROJECT MANAGER) Anatomical Region Laterality Modality Body N/A Magnetic Resonan ce 09/10/2023 9:46 AM GLOBAL PROJECT MANAGER Impressions 09/10/2023 10:01 AM GLOBAL PROJECT MANAGER 1. ??Surgical changes of right nephrectomy with no noncontrast MR evidence of locally recurrent tumor. 2. ??Unchanged findings of polycystic liver and kidney disease. Dictated by: Carla Pruitt MD, MPH The radiology attending physician has personally reviewed this study, and had reviewed and/or edited this written report and agrees with it. Electronically signed by: Roz Patterson M.D. Narrative 09/10/2023 10:01 AM GLOBAL PROJECT MANAGER EXAMINATION: MAGNETIC RESONANCE IMAGING OF THE ABDOMEN [...] signed by: Roz Patterson M.D. Quique Guzman WATCHMAKER APPRENTICE IMG MRI PROCEDURES Fin al Result * (ABNORMAL) POCT urinalysis dipstick (09/11/2022 9:00 AM GLOBAL PROJECT MANAGER) Color, Urine, POC Yellow Clarity, ur, POC Clear Clear Glucose, ur, POC Negative Negative MG/DL Ketones, ur, POC Negative Negative Blood, ur, POC Negative Negative pH, ur, POC 7.0 5.0 - 8.0 Protein, ur, POC 2+(A) Negative Nitrite, ur, POC Negative Negative Leukocytes, ur, POC Negative Negative Lot Number 0 Urine 09/11/2022 9:00 AM GLOBAL PROJECT MANAGER Quique Guzman NP POINT OF CARE TEST ORD ERABLES Final Result documented in this encounter Visit Diagnoses Diagnosis Malignant neoplasm of right kidney (HCC)- Primary End-stage renal disease (ESRD) (CMS/HCC) (HCC) Malignant neoplasm of right kidney (HCC) documented in this encounter Orders Outpatient Referral Count Last Ordered Date Fir st Ordered Date AMB REFERRAL TO UROLOGY 1 09/11/2022 documented in this encounter Care Teams Mailing Specialist Relationship Specialty Start Date End Date Gerardo Shah MD PCP - General Internal Medicine 09/30/18 Suzette Strickland MD [address] [facility] [address] [place] [address] Referring Physician Nephrology 02/15/20 Rita Tapia, RN [address] [place] [address] Registered Nurse Big Data Hadoop Developer 02/15/20 documented as of this encounter
--- OUTSIDE RECORDS SUMMARY | 2024-10-16 06:37 | XMS_ITS | Encounter Summary ---
Author Organization [facility] Healthcare Address [address] [place] [address] Care Team Providers Care Photo Mask Cleaner Name Role Phone Gerardo Shah MD Primary Care Provider [phone] Suzette Strickland MD Unavailable [phone] Rita Tapia RN Unavailable [phone] Encounter Details Date Type Department Care Team (Late st Contact Info) Description 11/08/2022 9:00 AM FUEL AGENT Lab [facility] Advanced Medicine [facility] Advanced Medicine ([facility]) [address] [place] [address] [phone] 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) (HCC) Social History Tobacco Use Types Packs/Day Years Used Date Smoking Tobacco: Former Cigarettes 1.5 40 0 04/11/1978 - 2017 Smokeless Tobacco: Never Alcohol Use Standard Drinks/Week Comments Yes 1 (1 standard drink = 0.6 oz pur e alcohol) OCC Sex and Gender Information Value Date Recorded Sex Assigned at Not on file Legal Sex Male 4:54 AM FUEL AGENT Gender Identity Not on file Sexual [...] SCHEDULE (CLASS I AND CLASS II) Routine 11/08/2022 8:28 AM FUEL AGENT 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) (HCC) HLA ANTIBODY SCREEN BY PRA Routine 11/08/2022 8:27 AM FUEL AGENT 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) (HCC) EGFR Routine 11/08/2022 8:15 AM FUEL AGENT 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) (HCC) DIFFERENTIAL AUTO Routine 11/08/2022 8:1 5 AM FUEL AGENT 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) (HCC) PSA SCREEN Routine 11/08/2022 8:15 AM FUEL AGENT 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) (HCC) HIV 1/2 ANTIBODY PLUS P24 ANTIGEN Routine 11/08/2022 8:15 AM FUEL AGENT 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) (HCC) CBC WITH AUTO DIFFERENTIAL Routine 11/08/2022 8:15 AM FUEL AGENT 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) (HCC) HEPATITIS C ANTIBODY Routine 11/08/2022 8:15 AM FUEL AGENT 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) (HCC) HEPATITIS B CORE ANTIBODY, TOTAL Routine 11/08/2022 8:15 AM FUEL AGENT 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) (HCC) HEPATITIS B SURFACE ANTIBODY (IMMUNE STATUS) Routine 11/08/2022 8:15 AM FUEL AGENT 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) (HCC) HEPATITIS B SURFACE ANTIGEN Routine 11/08/2022 8:15 AM FUEL AGENT 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) (HCC) PHOSPHORUS Routine 11/08/2022 8:15 AM FUEL AGENT 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) (HCC) PTH Routine 11/08/2022 8:15 AM FUEL AGENT 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) (HCC) COMPREHENSIVE METABOLIC PANEL Routine 11/08/2022 8:15 AM FUEL AGENT 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) (HCC) documented in this encounter Results * HLA Antibody Screen by PRA or SAB per Schedule (Class I and Class II) (11/08/2022 8:28 AM FUEL AGENT) Blood 11/08/2022 8:28 AM FUEL AGENT Narrative [facility] - FUEL AGENT Sample received in lab and stored. ??No testing performed at this time. us Perla Valadez MD LAB BLOOD ORDERABLE S Final Result Performing Organization Address City/State/[facility] Co de Phone Number [facility] * Collection Task for HLA Antibody Screen (11/08/2022 8:27 AM FUEL AGENT) HLA Antibody Screen by PRA Received [facility] Blood 11/08/2022 8:27 AM FUEL AGENT 11/08/2022 9:58 AM FUEL AGENT us Perla Valadez MD LAB BLOOD ORDERABLE S Final Result Performing Organization Address [facility] Co de Phone Number [facility] [address] [facility] [place] [address] * (ABNORMAL) eGFR (11/08/2022 8:15 AM FUEL AGENT) eGFR 10(L) 90 - 130 mL/min/1. 73 m2 [facility] Comment: Interpretive Data Reference Interval Normal ?>/= 90 mL/min/1.73m2 Mildly decreased* ? 60 - 89 mL/min/1.73m2 Mildly to moderately decreased ?45 - 59 mL/min/1.73m2 Moderately to severely decreased ??30 - 44 mL/min/1.73m2 Severely decreased ?15 - 29 mL/min/1.73m2 Kidney Failure ?< 15 ??mL/min/1.73m2 *Relative to young adult level Estimated glomerular filtration rate is determined by the 2020 CKD-EPI equation recommended by the National Kidney Foundation (A Unifying Approach to GFR Estimation: Recommendations of the NKF-ASK Task Force on Reassessing the Inclusion of Race in Diagnosing Kidney Disease, JASN 2020). The CKD-EPI equation should not be used for patients with unstable renal function and has not been validated in children and those over 70. Current interpretive data was last reviewed 2021. Blood 11/08/2022 8:15 AM FUEL AGENT 11/08/2022 9:01 AM FUEL AGENT us Perla Valadez MD LAB BLOOD ORDERABLE S Final Result [facility] [address] [facility] Department [place] [address] * Differential, auto (11/08/2022 8:15 AM FUEL AGENT) Neutrophil abs 4.8 1.7 - 6.5 K/cumm [facility] Imm gran abs 0.0 0.0 - 0.1 K/cumm [facility] Lymphocyte abs 1.5 0.8 - 3.3 K/cumm [facility] Monocyte abs 0.8 0.2 - 0.8 K/cumm [facility] Eosinophil abs 0.1 0.0 - 0.5 K/cumm [facility] Basophil abs 0.1 0.0 - 0.1 K/cumm [facility] Neutrophil pct 65.7 % [facility] Comment: Interpretive Data Percent cell count reference ranges are not reported, since discordance with absolute values may lead to misinterpretation of CBC data. Current Interpretive Data was last revised on 2018. Imm gran pct 0.5 % [facility] Comment: Interpretive Data Percent cell count reference ranges are not reported, since discordance with absolute values may lead to misinterpretation of CBC data. Current Interpretive Data was last revised on 2018. Lymphocyte pct 21.0 % [facility] Comment: Interpretive Data Percent cell count reference ranges are not reported, since discordance with absolute values may lead to misinterpretation of CBC data. Current Interpretive Data was last revised on 2018. Monocyte pct 10.7 % [facility] Comment: Interpretive Data Percent cell count reference ranges are not reported, since discordance with absolute values may lead to misinterpretation of CBC data. Current Interpretive Data was last revised on 2018. Eosinophil pct 1.1 % [facility] Comment: Interpretive Data Percent cell count reference ranges are not reported, since discordance with absolute values may lead to misinterpretation of CBC data. Current Interpretive Data was last revised on 2018. Basophil pct 1.0 % [facility] Comment: Interpretive Data Percent cell count reference ranges are not reported, since discordance with absolute values may lead to misinterpretation of CBC data. Current Interpretive Data was last revised on 2018. Blood 11/08/2022 8:15 AM FUEL AGENT 11/08/2022 8:57 AM FUEL AGENT us Perla Valadez MD LAB BLOOD ORDERABLE S Final Result [facility] [address] [facility] Department of Laboratories [place], [place] [id number] * (ABNORMAL) CBC with auto differential (11/08/2022 8:15 AM FUEL AGENT) WBC 7.4 3.8 - 9.9 K/cumm [facility] Hgb 12.1(L) 13.0 - 17.5 g/dL [facility] Hct 38.1(L) 38.9 - 50.3 % [facility] Plt 285 150 - 400 K/cumm [facility] MPV 9.5 9.1 - 12.3 fL [facility] RBC 3.67(L) 4.30 - 5.80 M/cumm [facility] MCV 103.8(H) 81.3 - 96.4 fL [facility] MCH 33.0 27.1 - 33.3 pg [facility] MCHC 31.8(L) 32.3 - 35.7 g/dL [facility] RDW CV 13.5 11.1 - 14.9 % [facility] RDW SD 52.1(H) 35.7 - 48.1 fL [facility] NRBC abs 0.00 0.00 - 0.01 K/cumm [facility] Blood 11/08/2022 8:15 AM FUEL AGENT 11/08/2022 8:57 AM FUEL AGENT us Perla Valadez MD LAB BLOOD ORDERABLE S Final Result [facility] [address] [facility] Department [place] [address] * (ABNORMAL) Comprehensive metabolic panel (11/08/2022 8:15 AM FUEL AGENT) Sodium 142 135 - 145 mmol/L [facility] Potassium, pl 4.8 3.3 - 4.9 mmol/L [facility] Chloride 100 97 - 110 mmol/L [facility] CO2 32 22 - 32 mmol/L [facility] Anion gap 10 2 - 15 mmol/L [facility] BUN 30(H) 8 - 25 mg/dL [facility] Creatinine 5.82(H) 0.80 - 1.30 mg/dL [facility] Glucose 90 70 - 199 mg/dL [facility] Comment: Interpretive Data Fasting glucose [...] Calcium 8.9 8.5 - 10.3 mg/dL [facility] Bilirubin, total 0.6 0.1 - 1.2 mg/dL [facility] Protein, pl 7.1 6.5 - 8.5 g/dL [facility] Albumin 4.5 3.5 - 5.0 g/dL [facility] Alk phos 68 40 - 130 Units/L [facility] ALT 23 7 - 55 Units/L [facility] AST 17 10 - 50 Units/L [facility] Blood 11/08/2022 8:15 AM FUEL AGENT 11/08/2022 8:57 AM FUEL AGENT us Perla Valadez MD LAB BLOOD ORDERABLE S Final Result Performing Organization Address [facility] Co de Phone Number [facility] Department [place] [address] * HIV 1/2 Antibody plus p24 Antigen Blood (11/08/2022 8:15 AM FUEL AGENT) [facility] HIV 1/2 ab + p24 ag Nonreactive Nonreactive [facility] Comment:Nonreactive for HIV- 1 antigen and HIV-1/HIV-2 antibodies. No laboratory evidence of HIV infection. If acute HIV infection is suspected, consider testing for HIV-1 RNA. Current interpretive data was last revised on 22. Blood 11/08/2022 8:15 AM FUEL AGENT 11/08/2022 8:57 AM FUEL AGENT us Perla Valadez MD LAB MICROBIOLOGY - GENERAL ORDERABLES Final Result Performing Organization Address City/[facility]/ZIP Co de Phone Number [facility] Department [place] [address] * Hepatitis B surface antibody (immune status) (11/08/2022 8:15 AM FUEL AGENT) Pathologist [facility] HBsAb (immune status) Reactive [facility] Comment:This result is consi stent with immunity to Hepatitis B Virus when used in the setting of routine screening. Current interpretive data was last revised on 22 HBsAb (immune status) index 4,909.0 mIUnits/m L [facility] Comment: The method for this assay was changed on 08/22/22. Quantitative results are approximately 0.5 log10 higher with the new assay in comparison with the one previously in use. Current interpretive data was last revised on 22. Blood 11/08/2022 8:15 AM FUEL AGENT 11/08/2022 8:57 AM FUEL AGENT Perla Valadez MD LAB MICROBI OLOGY - GENERAL ORDERABLES Edited Result - Final Performing Organization Address City/[facility]/ZIP Co de Phone Number [facility] Department [place] [address] * Hepatitis B Surface Antigen (11/08/2022 8:15 AM FUEL AGENT) [facility] HepBsAg Nonreactive Nonreactive [facility] Blood 11/08/2022 8:15 AM FUEL AGENT 11/08/2022 8:57 AM FUEL AGENT Perla Valadez MD LAB MICROBIOLOGY - GENERAL ORDERABLES Final Result Performing Organization Address [facility] Co de Phone Number [facility] Department [place] [address] * Hepatitis C antibody (11/08/2022 8:15 AM FUEL AGENT) Pathologist [facility] Hep C Ab Nonreactive Nonreactive [facility] Comment:Antibodies to HCV no t detected. Does NOT exclude the possibility of recent exposure to HCV. Current interpretive data was last revised on 22 Blood 11/08/2022 8:15 AM FUEL AGENT 11/08/2022 8:57 AM FUEL AGENT us Perla Valadez MD LAB MICROBIOLOGY - GENERAL ORDERABLES Final Result Performing Organization Address City/[facility] Co de Phone Number [facility] [place] [address] * Hepatitis B core antibody, total (11/08/2022 8:15 AM FUEL AGENT) Hep B core IgG/IgM Nonreactive Nonreactive [facility] Blood 11/08/2022 8:15 AM FUEL AGENT 11/08/2022 8:57 AM FUEL AGENT us Perla Valadez MD LAB MICROBIOLOGY - GENERAL ORDERABLES Final Result Performing Organization Address [facility] Co de Phone Number [facility] [place] [address] * Phosphorus (11/08/2022 8:15 AM FUEL AGENT) Phosphorus, pl 4.5 2.3 - 4.5 mg/dL [facility] Blood 11/08/2022 8:15 AM FUEL AGENT 11/08/2022 8:57 AM FUEL AGENT us Perla Valadez MD LAB BLOOD ORDERABLE S Final Result Performing Organization Address City/[facility] Co de Phone Number [facility] [place] [place] [address] * (ABNORMAL) PTH (11/08/2022 8:15 AM FUEL AGENT) PTH 138(H) 15 - 65 pg/mL [facility] Blood 11/08/2022 8:15 AM FUEL AGENT 11/08/2022 8:57 AM FUEL AGENT us Perla Valadez MD LAB BLOOD ORDERABLE S Final Result Performing Organization Address City/[facility]/ZIP Co de Phone Number [facility] Department [place] [address] * PSA screen (11/08/2022 8:15 AM FUEL AGENT) PSA-Total 0.93 <=5.40 ng/mL [facility] Comment: Interpretive Data ?AGE ? SEX ?REFERENCE [...] last revised 22. Blood 11/08/2022 8:15 AM FUEL AGENT 11/08/2022 8:57 AM FUEL AGENT us Perla Valadez MD LAB BLOOD ORDERABLE S Final Result Performing Organization Address [facility] de Phone Number [facility] Department [place] [address] documented in this encounter Visit Diagnoses Diagnosis 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) (HCC) documented in this encounter Care Teams Photo Mask Cleaner Relationship Specialty Start Date End Date Gerardo Shah MD PCP - General Internal Medicine 09/30/18 Suzette Strickland MD [address] [facility] [address] [place] [address] Referring Physician Nephrology 02/15/20 Rita Tapia, RN [address] [place], [place] [id number] Registered Nurse Crisis Mental Health Therapist 02/15/20 documented as of this encounter
--- OUTSIDE RECORDS SUMMARY | 2024-10-16 06:37 | XMS_ITS | Encounter Summary ---
Author Organization [facility] Healthcare Address [address] [place] [address] Care Team Providers Care Director Government Name Role Phone Gerardo Shah MD Primary Care Provider [phone] Suzette Strickland MD Unavailable [phone] Rita Tapia RN Unavailable [phone] Encounter Details Date Type Department Care Team (Latest Contact Info) Description 10/03/2022 10:00 AM [employer]ING [employer] - 10/03/2022 11:59 PM [facility] Hospital Encounter [address] [address] ESRD (end stage renal disease) ([facility]) ([facility]); Stage 5 chronic kidney disease on chronic dialysis ([facility]) ([facility]) Discharge Disposition: Discharge to home [...] on file 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[employer] Gender Identity Not on file Sexual Orientation [...] KIDNEY ESRD (end stage renal disease) ([facility]) documented as of this encounter Procedures Procedure Name Priority Date/Time Associated Diagnosis Comments HLA ANTIBODY SCREEN BY PRA OR SAB PER SCHEDULE (CLASS I AND CLASS II) Routine 10/03/2022 10:00 AM [employer] ESRD (end stage renal disease) ([facility]) ([facility]) HLA ANTIBODY SCREEN - PRA (CLASS I AND CLASS II) Routine 10/03/2022 10:00 AM [employer] ESRD (end stage renal disease) ([facility]) ([facility]) HLA ANTIBODY SCREEN BY PRA Routine 10/03/2022 10:00 AM [employer] Stage 5 chronic kidney disease on chronic dialysis ([facility]) ([facility]) HLA ANTIBODY SCREEN - SAB (CLASS I AND CLASS II) Routine 10/03/2022 10:00 AM [employer] ESRD (end stage renal disease) (CMS/HCC) (HCC) documented in this encounter Results * HLA Antibody Screen - PRA (Class I and Class II) (10/03/2022 10:00 AM [employer]) Class I Treatment Untreated [facility] Class I Dilution 1:1 [facility] Class I Tested Date 10/05/2022 [facility] Class I Result Negative [facility] Class I Percent Positive 0 [facility] Class II Treatment Untreated [facility] Class II Dilution 1:1 [facility] Class II Tested Date 10/05/2022 [facility] Class II Result Positive [facility] Class II Percent Positive 3 [facility] 10/03/2022 10:0 0 AM [employer] 10/05/2022 1:12 PM [employer] Narrative [facility] - 10/05/2022 1:12 PM [employer] PRA (panel reactive antibody) HLA antibody screen is performed on serum samples using a method developed and validated by the [facility] HLA laboratory based on an FDA- approved IVD kit (LABScreen PRA, [place], [place], [place]). Interpretive comments: The percentage of beads with MFI > 750 is reported, which indicates the percentage of donor population estimated to be incompatible with the patient tested. PRA > 0% is consistent with alloimmunization to HLA. Testing performed at the [facility], [address] [place] [address], 5th floor, [place], [address]. CLIA # [id number]. Macie Vizcaino M.D., Associate HLA Helper Driver Harman Flores M.D., Ph.D., HLA Helper Driver Aviva Conway, Ph.D., Iron Assorter, [facility] Current methodology and interpretive comments last revised on 01/05/2020. us Tatianna Moyer MD LAB BLOOD ORDERABL ES Final Result [facility] * HLA Antibody Screen - SAB (Class I and Class II) (10/03/2022 10:00 AM [employer]) Class I Treatment EDTA [facility] Class I Dilution 1:1 [facility] Class I Tested Date 10/04/2022 [facility] Class I Result Negative [facility] Class I CPRA 0 [facility] Class I Low Risk B37 [facility] Class II Treatment EDTA [facility] Class II Dilution 1:1 [facility] Class II Tested Date 10/04/2022 [facility] Class II Result Positive [facility] Class II Moderate Risk DPB1*01:01 [facility] Class II Low Risk DPB1*11:01 [facility] 10/03/2022 10:0 0 AM [employer] 10/05/2022 1:11 PM [employer] Narrative [facility] - 10/05/2022 1:11 PM [employer] Single-antigen HLA antibody screen is performed on serum samples using a method developed and validated by the [facility] HLA laboratory based on an FDA-approved IVD kit (LABScreen Single-Antigen, [place], [place], [place]). All patient serum samples are pretreated with EDTA before the screen to prevent complement interference. Additional serum treatments, such as adsorption and DTT treatment, may be performed as indicated. ??Interpretive comments: Low risk: MFI [id number]. Moderate risk: MFI [id number]. Increased risk: MFI >/= 5000. The presence [...] PRA (cPRA) rounded to the nearest integer. UA of DQA1 and DP specificities are not included in cPRA calculation currently. If UA consist of DQA1 and DP specificities only, no cPRA will be reported. In the post-transplant setting, MFI values from [...] to avoid. Testing performed at the [facility], [facility]th [facility], [facility], [place], [address]. [facility] # [id number]. Macie Vizcaino M.D., Associate HLA Helper Driver Harman lFores M.D., Ph.D., HLA Helper Driver Aviva Conway, Ph.D., Iron Assorter, [facility] Current methodology and interpretive comments last revised on 01/05/2020. us Tatianna Moyer MD LAB BLOOD ORDERABL ES Final Result Performing Organization Address [facility] Co de Phone Number [facility] * Collection Task for HLA Antibody Screen (10/03/2022 10:00 AM [employer]ING [employer]) HLA Antibody Screen by PRA Received [facility] Blood 10/03/2022 10:0 0 AM [employer] 10/05/2022 9:23 AM [employer] Perla Valadez MD LAB BLOOD ORDERABLE S Final Result Performing Organization Address [facility] Co de Phone Number [facility] Department [place] [address] * HLA Antibody Screen by PRA or SAB per Schedule (Class I and Class II) (10/03/2022 10:00 AM [employer]) Blood specimen (specimen) 10/03/2022 10:00 AM [employer]ING [employer] Narrative [facility] - [employer] Sample received in lab. ??Single Antigen Antibody Screen and PRA Screen ordered. Tatianna Moyer MD LAB BLOOD ORDERABL ES Final Result [facility] documented in this encounter Visit Diagnoses Diagnosis ESRD (end stage renal disease) (CMS/HCC) (HCC) End stage renal disease 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) ([facility]) documented in this encounter Care Teams Director Government Relationship Specialty Start Date End Date Gerardo Shah MD PCP - General Internal Medicine 09/30/18 Suzette Strickland MD [address] [facility] [address] [place] [address] Referring Physician Nephrology 02/15/20 Rita Tapia, RN [address] [place] [address] Registered Nurse Canned Food Reconditioning Inspector 02/15/20 documented as of this encounter
--- OUTSIDE RECORDS SUMMARY | 2024-10-16 06:37 | XMS_ITS | Encounter Summary ---
Author Organization [facility] Healthcare Address [address] [place] [address] Care Team Providers Care Unit Control Clerk Name Role Phone Gerardo Shah MD Primary Care Provider [phone] Suzette Strickland MD Unavailable Rita Tapia RN Unavailable [phone] Encounter Details Date Type Department Care Team (Latest Contact Info) Description 12/12/2022 10:00 AM CLINICAL DATA ANALYST - 12/12/2022 11:59 PM [facility] Hospital Encounter [address] [address] ESRD (end stage renal disease) ([facility] ([facility]); Stage 5 chronic kidney disease on chronic dialysis ([facility]) ([facility]) Discharge Disposition: Discharge to home or self [...] on file 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 Gender Identity Not on file Sexual Orientation [...] ESRD (end stage renal disease) ([facility]) documented as of this encounter Procedures Procedure Name Priority Date/Time Associated Diagnosis Comments HLA ANTIBODY SCREEN BY PRA OR SAB PER SCHEDULE (CLASS I AND CLASS II) Routine 12/12/2022 10:00 AM CLINICAL DATA ANALYST ESRD (end stage renal disease) ([facility]) ([facility]) HLA ANTIBODY SCREEN BY PRA Routine 12/12/2022 10:00 AM CLINICAL DATA ANALYST Stage 5 chronic kidney disease on chronic dialysis ([facility]) ([facility]) documented in this encounter Results * Collection Task for HLA Antibody Screen (12/12/2022 10:00 AM CLINICAL DATA ANALYST) HLA Antibody Screen by PRA Received [facility] Blood 12/12/2022 10:0 0 AM CLINICAL DATA ANALYST 12/14/2022 8:20 AM CLINICAL DATA ANALYST us Perla Valadez MD LAB BLOOD ORDERABLE S Final Result [facility] Department [place] [address] * HLA Antibody Screen by PRA or SAB per Schedule (Class I and Class II) (12/12/2022 10:00 AM CLINICAL DATA ANALYST) Blood specimen (specimen) 12/12/2022 10:00 AM CLINICAL DATA ANALYST Narrative [facility]ISTOT[facility] - CLINICAL DATA ANALYST Sample received in lab and stored. ??No testing performed at this time. us Tatianna Moyer MD LAB BLOOD ORDERABL ES Final Result [facility] documented in this encounter Visit Diagnoses Diagnosis ESRD (end stage renal disease) (CMS/HCC) (HCC) End stage renal disease 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) (HCC) documented in this encounter Care Teams Unit Control Clerk Relationship Specialty Start Date End Date Gerardo Shah MD PCP - General Internal Medicine 09/30/18 Suzette Strickland MD [address] [facility] [address] [place] [address] Referring Physician Nephrology 02/15/20 Rita Tapia, RN [address] [place] [address] Registered Nurse Sales Service Executive 02/15/20 documented as of this encounter
--- OUTSIDE RECORDS SUMMARY | 2024-10-16 06:37 | XMS_ITS | Encounter Summary ---
Author Organization [facility] Address [address] [facility] [address] [place] [address] Care Team Providers Care Import Dispatcher Name Role Phone Gerardo Shah MD Primary Care Provider [phone] Suzette Strickland MD Unavailable [phone] Rita Tapia RN Unavailable [phone] Reason for Visit * Reason Comments Follow-up 1 year follow up. 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 Gender Identity Not on file Sexual Orientation Straight 05/03/2020 10 :36 AM CDT documented as of this encounter Last Filed Vital Signs Vital Sign Reading Time Taken Comments Blood Pressure 104/60 03/12/2023 9:04 AM CDT Pulse 51 03/12/2023 9:04 AM CDT Temperature - - Respiratory Rate - - Oxygen Saturation 99% 03/12/2023 9:04 AM CDT Inhaled Oxygen Concentration - - Weight 83.9 kg (185 lb) 03/12/2023 9:04 AM CDT Height 190.5 cm (6' 3 ) 03/12/2023 9:04 AM CDT Body Mass Index 23.12 03/12/2023 9:04 AM CDT documented in this encounter Progress Notes * Donaldo Tee MD - 03/12/2023 9:15 AM CDT [facility] FOLLOW UP 03/12/2023 Abel Browne is a 63 y.o. male [...] He was undergoing a transplant workup at [facility] and a stress echocardiogram was done which was a negative exam as expected since he is not known to have any coronary disease. His renal disease has progressed to end-stage renal disease requiring hemodialysis 3 times per week. He returns to the office for scheduled follow-up. What I can see in the chart he is still on the waiting list for kidney transplant. He has no cardiovascular complaints. He wanted to talk for a whileabout his potassium management as he says that he likes foods that are high in potassium and his renal dietitian at the dialysis center is concerned he is typically hyperkalemic. He enjoys fresh fruits and vegetables that are high in potassium REVIEW OF SYSTEMS General ROS: negative for [...] to 30 doses (Patient taking differently: Take 2 capsules (1,000 mg total) by mouth every 6 (six) hours as needed for pain), Disp: 30 capsule, Rfl: 0 amLODIPine (NORVASC) [...] total) by mouth daily, Disp: , Rfl: lidocaine-prilocaine cream, , Disp: , Rfl: metoprolol tartrate (LOPRESSOR) 25 mg immediate release tablet, TAKE ONE TABLET BY MOUTH TWICE A DAY, Disp: 180 tablet, Rfl: 1 nitroglycerin (NITROSTAT) 0.4 mg SL tablet, Place [...] for component: LABALBU PHYSICAL EXAM Vitals BP 104/60 (BP Location: Left arm, Patient Position: Sitting) Pulse 51 Ht 190.5 cm (6' 3 ) Wt 83.9 kg (185 lb) SpO2 99% BMI 23.12 kg/m?? Physical Examination: General appearance - alert, [...] noted ASSESSMENT Abel was seen today for follow-up. Diagnoses and all orders for this visit: Coronary arteriosclerosis Lipid screening - POCT lipid panel PLAN/RECOMMENDATIONS Continue low-dose calcium channel kathryn therapy as described above Will continue to see him annually or p.r.n. Donaldo Tee MD documented in this encounter Plan of Treatment Scheduled Procedures Name Priority Associated Diagnoses Date/Ti me TRANSPLANT KIDNEY ESRD (end stage renal disease) ([facility]) documented as of this encounter Procedures Procedure Name Priority Date/Time Associated Diagnosis Comments POCT LIPID PANEL Routine 03/12/2023 9:08 AM CDT Lipid screening documented in this encounter Results * POCT lipid panel (03/12/2023 9:08 AM CDT) Cholesterol, POC 118 mg/dL HDL, POC 38 mg/dL Triglycerides, POC 92 mg/dL LDL Cholesterol POC 62 mg/dL Chol/HDL Ratio, POC 1.7 Non-HDL Cholesterol, POC 80 mg/dL Cholesterol Total, POC 118 mg/dL Capillary blood 03/12/2023 9 :08 AM CDT us Donaldo Tee MD POINT OF CARE TEST ORDER SARITHA Final Result documented in this encounter Visit Diagnoses Diagnosis Coronary arteriosclerosis- Primary Coronary atherosclerosis of unspecified type of vessel, [place] or graft Lipid screening Screening for lipoid disorders Prinzmetal's angina ([facility]) ([facility]) Prinzmetal angina documented in this encounter Care Teams Import Dispatcher Relationship Specialty Start Date End Date Gerardo Shah MD PCP - General Internal Medicine 09/30/18 Suzette Strickland MD [address] [facility] [address] [place] [address] Referring Physician Nephrology 02/15/20 Rita Tapia, RN [address] [place], [place] [id number] Registered Nurse Investment Manager 02/15/20 documented as of this encounter
--- OUTSIDE RECORDS SUMMARY | 2024-10-16 06:37 | XMS_ITS | Encounter Summary ---
Author Organization [facility] Healthcare Address [address] [place] [address] Care Team Providers Care Medical Care Administrator Name Role Phone Gerardo Shha MD Primary Care Provider [phone] Suzette Strickland MD Unavailable [phone] Rita Tapia RN Unavailable [phone] Encounter Details Date Type Department Care Team (Late st Contact Info) Description 08/01/2022 Telephone [facility] and [facility] Transplant Kidney [address] [address] Mailstop [id number] [place] [address] Zhane Hatfield Social History Tobacco Use Types Packs/Day Years Used Date Smoking Tobacco: Former Cigarettes 1.5 40 0 04/11/1978 - 2017 Smokeless Tobacco: Never Alcohol Use Standard Drinks/Week Comments Yes 1 (1 standard drink = 0.6 oz pur e alcohol) OCC Sex and Gender Information Value Date Recorded Sex Assigned at Not on file 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 requesting call back on pt's status and if pt remains actively listed. Returned call and confirmed pt remains actively listed. Requested CB if clinical is needed for update. documented in this encounter Plan of Treatment Scheduled Procedures Name Priority Associated Diagnoses Date/Ti me TRANSPLANT KIDNEY ESRD (end stage renal disease) ([facility]) documented as of this encounter Visit Diagnoses Not on filedocumented in this encounter Care Teams Medical Care Administrator Relationship Specialty Start Date End Date Gerardo Shah MD PCP - General Internal Medicine 09/30/18 Suzette Strickland MD [facility] [facility] [address] [place] [address] Referring Physician Nephrology 02/15/20 Rita Tapia, RN [address] [place], [place] [id number] Registered Nurse [employer] [place] Consultant 02/15/20 documented as of this encounter
--- OUTSIDE RECORDS SUMMARY | 2024-10-16 06:37 | XMS_ITS | Encounter Summary ---
Author Organization [facility] Healthcare Address [address] [place] [address] Care Team Providers Care Telephone Solicitor Supervisor Name Role Phone Gerardo hSah MD Primary Care Provider [phone] Suzette Strickland MD Unavailable [phone] Rita Tapia RN Unavailable [phone] Reason for Visit * Reason Onset Date Comments Waitlist Maintenance 04/17/2022 Encounter Details Date Type Department Care Team (Late st Contact Info) Description 04/17/2022 Telephone [facility] and [facility] Transplant Kidney [address] [address] Mailstop [id number] [place] [address] Shahnaz Zamarripa Waitlist Maintenance Social History Tobacco Use Types Packs/Day Years Used Date Smoking Tobacco: Former Cigarettes 1.5 40 0 04/11/1978 - 2017 Smokeless Tobacco: Never Alcohol Use Standard Drinks/Week Comments Yes 1 (1 standard drink = 0.6 oz pur e alcohol) OCC Sex and Gender Information Value Date Recorded Sex Assigned at Not on file 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 Encouraged her to contact nurse with any questions. Reviewed the following: Demographics (email, address, phone numbers): No changes Patient contacts: No changes Insurance carriers: Confirmed [employer] as primary and Medicare A&B as secondary insurance I reminded patient's of the importance of notifying the transplant center right away of any insurance changes. Employment status and financial situation: No changes Dialysis: No changes Weight: Patient's reported patient being around 188 pounds. BMI 23.5 Medical issues (hospitalizations, medical conditions, illnesses, infections, procedures, open wounds, new diagnoses, or positive COVID results): None reported COVID Vaccinations: None reported Social Issues/Questions: None reported documented in this encounter Plan of Treatment Scheduled Procedures Name Priority Associated Diagnoses Date/Ti me TRANSPLANT KIDNEY ESRD (end stage renal disease) ([facility]) documented as of this encounter Visit Diagnoses Not on filedocumented in this encounter Care Teams Telephone Solicitor Supervisor Relationship Specialty Start Date End Date Gerardo Shah MD PCP - General Internal Medicine 09/30/18 Suzette Strickland MD [address] [facility] [address] [place] [address] Referring Physician Nephrology 02/15/20 Rita Tapia, RN [address] [place] [address] Registered Nurse Firearms Specialist 02/15/20 documented as of this encounter
--- OUTSIDE RECORDS SUMMARY | 2024-10-16 06:37 | XMS_ITS | Encounter Summary ---
Author Organization [facility] Healthcare Address [address] [place] [address] Care Team Providers Care Can Filling Room Sweeper Name Role Phone Gerardo Shah MD Primary Care Provider [phone] Suzette Strickland MD Unavailable [phone] Rita Tapia RN Unavailable [phone] Encounter Details Date Type Department Care Team (Latest Contact Info) Description 10/31/2022 10:00 AM EXPLOSIVE OPERATOR FUSE - 10/31/2022 11:59 PM EXPLOSIVE OPERATOR FUSE Hospital Encounter [address] [address] [facility]D (end stage renal disease[facility] ([facility] ([facility]) Discharge Disposition: Discharge to home or [...] on file Legal Sex Male 4:54 AM EXPLOSIVE OPERATOR FUSE Gender Identity Not on file Sexual Orientation [...] TRANSPLANT KIDNEY ESRD (end stage renal disease) ([facility]) documented as of this encounter Procedures Procedure Name Priority Date/Time Associated Diagnosis Comments HLA ANTIBODY SCREEN BY PRA OR SAB PER SCHEDULE (CLASS I AND CLASS II) Routine 10/31/2022 10:00 AM EXPLOSIVE OPERATOR FUSE ESRD (end stage renal disease) ([facility]) ([facility]) HLA ANTIBODY SCREEN - PRA (CLASS I AND CLASS II) Routine 10/31/2022 10:00 AM EXPLOSIVE OPERATOR FUSE ESRD (end stage renal disease) ([facility]) ([facility]) HLA ANTIBODY SCREEN - SAB (CLASS I AND CLASS II) Routine 10/31/2022 10:00 AM EXPLOSIVE OPERATOR FUSE ESRD (end stage renal disease) ([facility]) ([facility]) documented in this encounter Results * HLA Antibody Screen - PRA (Class I and Class II) (10/31/2022 10:00 AM EXPLOSIVE OPERATOR FUSE) Class I Treatment Frozen -80 C [facility] Class I Dilution 1:1 [facility] Class I Tested Date 11/13/2022 HISTOT[facility] Class I Result Negative [facility]OT[facility] Class I Percent Positive 0 [facility]OT[facility] Class II Treatment Frozen -80 C [facility]OT[facility] Class II Dilution 1:1 [facility]OT[facility] Class II Tested Date 11/13/2022 HISTOT[facility]AC Class II Result Positive [facility]OT[facility] Class II Percent Positive 3 H[facility]OT[facility]AC 10/31/2022 10:0 0 AM EXPLOSIVE OPERATOR FUSE 11/22/2022 11:04 AM EXPLOSIVE OPERATOR FUSE Narrative HISTOTRAC - 11/22/2022 11:04 AM EXPLOSIVE OPERATOR FUSE PRA (panel reactive antibody) HLA antibody screen is performed on serum samples using a method developed and validated by the [facility] HLA laboratory based on an FDA- approved IVD kit (Piethis.comcreen PRA, [employer], [facility] [place]). Interpretive comments: The percentage of beads with MFI > 750 is reported, which indicates the percentage of donor population estimated to be incompatible with the patient tested. PRA > 0% is consistent with alloimmunization to HLA. Testing performed at the [facility] Laboratory, [address] [place] [address], 5th floor, [place], [address]. CLIA # [id number]. Macie Vizcaino M.D., Associate HLA Digital Press Operator Harman Flores M.D., Ph.D., HLA Digital Press Operator Aviva Conway, Ph.D., Bilingual Social Worker, [facility] Clinical Laboratories Current methodology and interpretive comments last revised on 01/05/2020. us Tatianna Moyer MD LAB BLOOD ORDERABL ES Final Result [facility] * HLA Antibody Screen - SAB (Class I and Class II) (10/31/2022 10:00 AM EXPLOSIVE OPERATOR FUSE) Class I Treatment EDTA [facility] Class I Dilution 1:1 [facility]OT[facility] Class I Tested Date 11/07/2022 [facility]ISTOT[facility] Class I Result Negative [facility]OT[facility] Class I CPRA 0 [facility]OT[facility] Class II Treatment EDTA H[facility]OT[facility] Class II Dilution 1:1 [facility]ISTOTRAC Class II Tested Date 11/07/2022 HISTOTRAC Class II Result Positive [facility]ISTOT[facility] Class II Moderate Risk DPB1*01:01 HISTOT[facility] Class II Low Risk DQ7; DPB1*11:01 HISTOTRAC 10/31/2022 10:0 0 AM EXPLOSIVE OPERATOR FUSE 11/15/2022 3:53 PM EXPLOSIVE OPERATOR FUSE Narrative HISTOTRAC - 11/15/2022 3:53 PM EXPLOSIVE OPERATOR FUSE Single-antigen HLA antibody screen is performed on serum samples using a method developed and validated by the [facility] HLA laboratory based on an FDA-approved IVD kit (Piethis.comcreen Single-Antigen, [employer], [place], [place]). All patient serum samples are pretreated with EDTA before the screen to prevent complement interference. Additional serum treatments, such as adsorption and DTT treatment, may be performed as indicated. ??Interpretive comments: Low risk: MFI [id number]. Moderate risk: MFI [id number]. Increased risk: MFI >/= 5000. The presence [...] antigens to avoid. Testing performed at the [facility] Laboratory, [address], 5th floor, [place], [address]. [facility] # [id number]. Macie Vizcaino M.D., Associate HLA Digital Press Operator Harman Flores M.D., Ph.D., HLA Digital Press Operator Aviva Conway, Ph.D., Bilingual Social Worker, [facility] Clinical Laboratories Current methodology and interpretive comments last revised on 01/05/2020. Tatianna Moyer MD LAB BLOOD ORDERABL ES Final Result Performing Organization Address City/[facility]/ZIP Co de Phone Number HISTOT[facility] * HLA Antibody Screen by PRA or SAB per Schedule (Class I and Class II) (10/31/2022 10:00 AM EXPLOSIVE OPERATOR FUSE) Blood specimen (specimen) 10/31/2022 10:00 AM EXPLOSIVE OPERATOR FUSE Narrative HISTOTRAC - EXPLOSIVE OPERATOR FUSE Sample received in lab. ??Single Antigen Antibody Screen and PRA Screen ordered. Tatianna Moyer MD LAB BLOOD ORDERABL ES Final Result [facility]OT[facility] documented in this encounter Visit Diagnoses Diagnosis ESRD (end stage renal disease) (CMS/HCC) (HCC) End stage renal disease documented in this encounter Orders Lab Orders Without Results Count Last Ordered D ate First Ordered Date HLA ANTIBODY SCREEN BY PRA 1 11/01/2022 documented in this encounter Care Teams Can Filling Room Sweeper Relationship Specialty Start Date End Date Gerardo Shah MD PCP - General Internal Medicine 09/30/18 Suzette Strickland MD [address] [facility] [address] [place] [address] Referring Physician Nephrology 02/15/20 Rita Tapia, RN [address] [place] [address] Registered Nurse Quality Control Assessor 02/15/20 documented as of this encounter
--- OUTSIDE RECORDS SUMMARY | 2024-10-16 06:37 | XMS_ITS | Encounter Summary ---
Author Organization [facility] Healthcare Address [address] [place] [address] Care Team Providers Care Pile Fabric Knitter Name Role Phone Gerardo Shah MD Primary Care Provider [phone] Suzette Strickland MD Unavailable [phone] Rita Tapia RN Unavailable [phone] Encounter Details Date Type Department Care Team (Latest Contact Info) Description 03/21/2022 10:20 AM CDT Hospital Encounter [address] [address] ESRD (end stage renal disease) ([facility] ([facility]) Discharge Disposition: Discharge to home or self [...] on file Legal 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 Male 4:54 AM CASTING 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 HELPER Gender Identity Not on file Sexual [...] MOUTH TWICE A DAY 180 tablet 1 06/26/2021 2 nitroglycerin (NITROSTAT) 0.4 mg SL tablet [...] ESRD (end stage renal disease) ([facility]) documented as of this encounter Procedures Procedure Name Priority Date/Time Associated Diagnosis Comments HLA ANTIBODY SCREEN BY PRA OR SAB PER SCHEDULE (CLASS I AND CLASS II) Routine 03/21/2022 10:20 AM CDT ESRD (end stage renal disease) ([facility] ([facility]) HLA ANTIBODY SCREEN BY PRA Routine 03/21/2022 10:20 AM CDT ESRD (end stage renal disease) ([facility] ([facility]) HLA ANTIBODY SCREEN - SAB (CLASS I AND CLASS II) Routine 03/21/2022 10:20 AM CDT ESRD (end stage renal disease) ([facility] ([facility]) documented in this encounter Results * HLA Antibody Screen - SAB (Class I and Class II) (03/21/2022 10:20 AM CDT) Class I Treatment EDTA HISTOTRAC Class I Dilution 1:1 HISTOTRAC Class I Tested Date 03/24/2022 HISTOTRAC Class I Result Negative HISTOTRAC Class I CPRA 0 HISTOTRAC Class I Low Risk A34; B37 HISTOTRAC Class II Treatment EDTA HISTOTRAC Class II Dilution 1:1 HISTOTRAC Class II Tested Date 03/24/2022 HISTOTRAC Class II Result Positive HISTOTRAC Class II Moderate Risk DPB1*01:01 HISTOTRAC 03/21/2022 10:2 0 AM CDT 03/27/2022 8:42 AM CDT Narrative HISTOTRAC - 03/27/2022 8:42 AM CDT Single-antigen HLA antibody screen is performed on serum samples using a method developed and validated by the [facility] laboratory based on an FDA-approved IVD kit ([employer]creen Single-Antigen, Poly Adaptive, [facility] [place]). All patient serum samples are pretreated with EDTA before the screen to prevent complement interference. Additional serum treatments, such as adsorption and DTT treatment, may be performed as indicated. ??Interpretive comments: Low risk: MFI [id number]. Moderate risk: MFI [id number]. Increased risk: MFI >/= 5000. The presence [...] antigens to avoid. Testing performed at the [facility], [address] [place] [address], 5th floor, [facility], [place], [address]. [facility] # [id number]. Gracie Rubi M.D., Ph.D., Associate HLA Safety Risk Lead Harman Flores M.D., Ph.D., HLA Safety Risk Lead Aviva Conway, Ph.D., Nurse Sexual Assault, [facility] Current methodology and interpretive comments last revised on 01/05/2020. Tatianna Moyer MD LAB BLOOD ORDERABL ES Final Result Performing Organization Address City/[facility]/ZIP Co de Phone Number HISTOTRAC * Collection Task for HLA Antibody Screen (03/21/2022 10:20 AM CDT) HLA Antibody Screen by PRA Received [facility] Blood 03/21/2022 10:2 0 AM CDT 03/23/2022 3:46 PM CDT Tatianna Moyer MD LAB BLOOD ORDERABL ES Final Result Performing Organization Address [facility] Co de Phone Number [facility] One [facility] Department [place] [address] * HLA Antibody Screen by PRA or SAB per Schedule (Class I and Class II) (03/21/2022 10:20 AM CDT) Blood specimen (specimen) 03/21/2022 10:20 AM CDT Narrative HISTOTRAC - CASTING 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 HELPER Sample received in lab. ??Single Antigen Antibody Screen ordered. Tatianna Moyer MD LAB BLOOD ORDERABL ES Final Result Performing Organization Address City/[facility]/ZIP Co de Phone Number HISTOTRAC documented in this encounter Visit Diagnoses Diagnosis ESRD (end stage renal disease) (CMS/HCC) (HCC) End stage renal disease documented in this encounter Care Teams Pile Fabric Knitter Relationship Specialty Start Date End Date Gerardo Shah MD PCP - General Internal Medicine 09/30/18 Suzette Strickland MD [address] [facility] [address] [place] [address] Referring Physician Nephrology 02/15/20 Rita Tapia, RN [address] [place], [place] [id number] Registered Nurse Circulation Clerk 02/15/20 documented as of this encounter
--- OUTSIDE RECORDS SUMMARY | 2024-10-16 06:37 | XMS_ITS | Encounter Summary ---
Author Organization [facility] Healthcare Address [address] [place] [address] Care Team Providers Care Full Stack Engineer Name Role Phone Gerardo Shah MD Primary Care Provider [phone] Suzette Strickland MD Unavailable [phone] Rita Tapia RN Unavailable [phone] Encounter Details Date Type Department Care Team (Latest Contact Info) Description 08/29/2022 10:00 AM CDT - 08/29/2022 11:59 PM CDT Hospital Encounter [address] [address] ESRD (end stage renal disease) ([facility] ([facility]) Discharge Disposition: Discharge to home [...] on file Legal Sex Male 4:54 AM OPERATOR PREFINISH Gender Identity Not on file Sexual Orientation [...] (end stage renal disease) ([facility]) documented as of this encounter Procedures Procedure Name Priority Date/Time Associated Diagnosis Comments HLA ANTIBODY SCREEN BY PRA OR SAB PER SCHEDULE (CLASS I AND CLASS II) Routine 08/29/2022 10:00 AM CDT ESRD (end stage renal disease) ([facility] ([facility]) HLA ANTIBODY SCREEN BY PRA Routine 08/29/2022 10:00 AM CDT ESRD (end stage renal disease) ([facility] ([facility]) documented in this encounter Results * Collection Task for HLA Antibody Screen (08/29/2022 10:00 AM CDT) HLA Antibody Screen by PRA Received [facility] Blood 08/29/2022 10:0 0 AM CDT 08/31/2022 3:46 PM CDT Tatianna Moyer MD LAB BLOOD ORDERABL ES Final Result [facility] Department [place] [address] * HLA Antibody Screen by PRA or SAB per Schedule (Class I and Class II) (08/29/2022 10:00 AM CDT) Blood specimen (specimen) 08/29/2022 10:00 AM CDT Narrative HISTOTRAC - OPERATOR PREFINISH Sample received in lab and stored. ??No testing performed at this time. Tatianna Moyer MD LAB BLOOD ORDERABL ES Final Result Performing Organization Address City/[facility]/ZIP Co de Phone Number HISTOTRAC documented in this encounter Visit Diagnoses Diagnosis ESRD (end stage renal disease) (CMS/HCC) ([facility]) End stage renal disease documented in this encounter Care Teams Full Stack Engineer Relationship Specialty Start Date End Date Gerardo Shah MD PCP - General Internal Medicine 09/30/18 Suzette Strickland MD [address] [facility] [address] [place] [address] Referring Physician Nephrology 02/15/20 Rita Tapia, RN [address] [place] [address] Registered Nurse Cytopathology Technologist 02/15/20 documented as of this encounter
--- OUTSIDE RECORDS SUMMARY | 2024-10-16 06:37 | XMS_ITS | Encounter Summary ---
Author Organization [facility] Address [address] [facility] [address] [place] [address] Care Team Providers Care Sponge Diver Name Role Phone Gerardo Shah MD Primary Care Provider [phone] Suzette Strickland MD Unavailable [phone] Rita Tapia RN Unavailable [phone] Encounter Details Date Type Department Care Team (Late st Contact Info) Description 05/17/2023 Orders Only [facility] Cardiology [address] [place] [address] Ashwin Horner MD [address] [facility] [address], [place] [address] Social History Tobacco Use Types Packs/Day Years Used Date Smoking Tobacco: Former Cigarettes 1.5 40 0 04/11/1978 - 2017 Smokeless Tobacco: Never Alcohol Use Standard Drinks/Week Comments Yes 1 (1 standard drink = 0.6 oz pur e alcohol) OCC Sex and Gender Information Value Date Recorded Sex Assigned at Not on file 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 Gender Identity Not on file Sexual Orientation Straight 05/03/2020 10 :36 AM CDT documented as of this encounter Plan of Treatment Scheduled Procedures Name Priority Associated Diagnoses Date/Ti me TRANSPLANT KIDNEY ESRD (end stage renal disease) ([facility]) documented as of this encounter Procedures Procedure Name Priority Date/Time Associated Diagnosis Comments CARDIOLOGY DOCUMENT SCAN Routine 023 10:44 AM CDT CARDIOLOGY DOCUMENT SCAN Routine 023 10:42 AM CDT documented in this encounter Results * Cardiology Document Scan (05/16/2023 10:44 AM CDT) Anatomical Region Laterality Modality Other us Ashwin Horner MD [facility] PRO CEDURES Final Result * Cardiology Document Scan (05/16/2023 10:42 AM CDT) Anatomical Region Laterality Modality Other us Ashwin Horner MD CV CARDIAC SERVICES PRO CEDURES Final Result documented in this encounter Visit Diagnoses Not on filedocumented in this encounter Care Teams Sponge Diver Relationship Specialty Start Date End Date Gerardo Shah MD PCP - General Internal Medicine 09/30/18 Suzette Strickland MD [address] [facility] [address] [place] [address] Referring Physician Nephrology 02/15/20 Rita Tapia, RN [address] [place] [address] Registered Nurse Membership Manager 02/15/20 documented as of this encounter
--- OUTSIDE RECORDS SUMMARY | 2024-10-16 06:37 | XMS_ITS | Encounter Summary ---
Author Organization [facility] Healthcare Address [address] [place] [address] Care Team Providers Care Plant Guard Name Role Phone Gerardo Shah MD Primary Care Provider [phone] Suzette Strickland MD Unavailable [phone] Rita Tapia RN Unavailable [phone] Encounter Details Date Type Department Care Team (Latest Contact Info) Description 06/06/2022 10:00 AM CDT - 06/06/2022 11:59 PM CDT Hospital Encounter [address] [address] ESRD (end stage renal disease) ([facility]) ([facility]) Discharge Disposition: Discharge to home or [...] on file Legal Sex Male 4:54 AM INSULATION WORKER Gender Identity Not on file Sexual [...] TRANSPLANT KIDNEY ESRD (end stage renal disease) ([facility]) documented as of this encounter Procedures Procedure Name Priority Date/Time Associated Diagnosis Comments HLA ANTIBODY SCREEN BY PRA OR SAB PER SCHEDULE (CLASS I AND CLASS II) Routine 06/06/2022 10:00 AM CDT ESRD (end stage renal disease) ([facility]) ([facility]) HLA ANTIBODY SCREEN BY PRA Routine 06/06/2022 10:00 AM CDT ESRD (end stage renal disease) ([facility]) ([facility]) documented in this encounter Results * Collection Task for HLA Antibody Screen (06/06/2022 10:00 AM CDT) HLA Antibody Screen by PRA Received [facility] Blood 06/06/2022 10:0 0 AM CDT 06/07/2022 4:05 PM CDT Tatianna Moyer MD LAB BLOOD ORDERABL ES Final Result [facility] One [facility] Department [place] [address] * HLA Antibody Screen by PRA or SAB per Schedule (Class I and Class II) (06/06/2022 10:00 AM CDT) Blood specimen (specimen) 06/06/2022 10:00 AM CDT Narrative HISTOTRAC - INSULATION WORKER Sample received in lab and stored. ??No testing performed at this time. Tatianna Moyer MD LAB BLOOD ORDERABL ES Final Result Performing Organization Address City/[facility]/ZIP Co de Phone Number HISTOTRAC documented in this encounter Visit Diagnoses Diagnosis ESRD (end stage renal disease) (CMS/HCC) ([facility]) End stage renal disease documented in this encounter Care Teams Plant Guard Relationship Specialty Start Date End Date Gerardo Shah MD PCP - General Internal Medicine 09/30/18 Suzette Strickland MD [address] [facility] [address] [place] [address] Referring Physician Nephrology 02/15/20 Rita Tapia, RN [address] [place] [address] Registered Nurse Client Services Account Manager 02/15/20 documented as of this encounter
--- OUTSIDE RECORDS SUMMARY | 2024-10-16 06:37 | XMS_ITS | Encounter Summary ---
Author Organization [facility] Healthcare Address [address] [place] [address] Care Team Providers Care Home Care Chaplain Name Role Phone Gerardo Shah MD Primary Care Provider [phone] Suzette Strickland MD Unavailable [phone] Rita Tapia RN Unavailable [phone] Encounter Details Date Type Department Care Team (Latest Contact Info) Description 08/15/2022 10:00 AM CDT - 08/15/2022 11:59 PM CDT Hospital Encounter [address] [address] ESRD (end stage renal disease) ([facility]) ([facility]) Discharge Disposition: Discharge to home [...] on file Legal Sex Male 4:54 AM SCRUB WOMAN Gender Identity Not on file Sexual Orientation [...] TRANSPLANT KIDNEY ESRD (end stage renal disease) ([facility]) documented as of this encounter Procedures Procedure Name Priority Date/Time Associated Diagnosis Comments HLA ANTIBODY SCREEN BY PRA OR SAB PER SCHEDULE (CLASS I AND CLASS II) Routine 08/15/2022 10:00 AM CDT ESRD (end stage renal disease) ([facility]) ([facility]) HLA ANTIBODY SCREEN BY PRA Routine 08/15/2022 10:00 AM CDT ESRD (end stage renal disease) ([facility]) ([facility]) documented in this encounter Results * Collection Task for HLA Antibody Screen (08/15/2022 10:00 AM CDT) HLA Antibody Screen by PRA Received [facility] Blood 08/15/2022 10:0 0 AM CDT 08/20/2022 3:38 PM CDT Tatianna Moyer MD LAB BLOOD ORDERABL ES Final Result [facility] One [facility] Department [place] [address] * HLA Antibody Screen by PRA or SAB per Schedule (Class I and Class II) (08/15/2022 10:00 AM CDT) Blood specimen (specimen) 08/15/2022 10:00 AM CDT Narrative HISTOTRAC - SCRUB WOMAN Sample received in lab and stored. ??No testing performed at this time. Tatianna Moyer MD LAB BLOOD ORDERABL ES Final Result Performing Organization Address City/[facility]/ZIP Co de Phone Number HISTOTRAC documented in this encounter Visit Diagnoses Diagnosis ESRD (end stage renal disease) (CMS/HCC) ([facility]) End stage renal disease documented in this encounter Care Teams Home Care Chaplain Relationship Specialty Start Date End Date Gerardo Shah MD PCP - General Internal Medicine 09/30/18 Suzette Strickland MD [address] [facility] [address] [place] [address] Referring Physician Nephrology 02/15/20 Rita Tapia, RN [address] [place] [address] Registered Nurse Boot Trimmer 02/15/20 documented as of this encounter
--- OUTSIDE RECORDS SUMMARY | 2024-10-16 06:37 | XMS_ITS | Encounter Summary ---
Author Organization [facility] Healthcare Address [address] [place] [address] Care Team Providers Care Boathouse Keeper Name Role Phone Gerardo Shah MD Primary Care Provider [phone] Suzette Strickland MD Unavailable [phone] Rita Tapia RN Unavailable [phone] Encounter Details Date Type Department Care Team (Latest Contact Info) Description 01/09/2023 6:00 AM CDT - 01/09/2023 11:59 PM CDT Hospital Encounter [address] [address] ESRD (end stage renal disease) ([facility]) ([facility]) Discharge Disposition: [...] on file Legal Sex Male 4:54 AM PSYCHIATRIC ARNP Gender Identity Not on file Sexual Orientation [...] EVERY MORNING 90 tablet 2 12/20/2022 3 metoprolol tartrate (LOPRESSOR) 25 mg immediate [...] renal disease) ([facility]) documented as of this encounter Procedures Procedure Name Priority Date/Time Associated Diagnosis Comments HLA ANTIBODY SCREEN BY PRA OR SAB PER SCHEDULE (CLASS I AND CLASS II) Routine 01/09/2023 6:00 AM CDT ESRD (end stage renal disease) ([facility]) ([facility]) documented in this encounter Results * HLA Antibody Screen by PRA or SAB per Schedule (Class I and Class II) (01/09/2023 6:00 AM CDT) Blood specimen (specimen) 01/09/2023 6:00 AM CDT Narrative HISTOTRAC - PSYCHIATRIC ARNP Sample received in lab and stored. ??No testing performed at this time. us Tatianna Moyer MD LAB BLOOD ORDERABL ES Final Result HISTOTRAC documented in this encounter Visit Diagnoses Diagnosis ESRD (end stage renal disease) (CMS/HCC) (HCC) End stage renal disease documented in this encounter Care Teams Boathouse Keeper Relationship Specialty Start Date End Date Gerardo Shah MD PCP - General Internal Medicine 09/30/18 Suzette Strickland MD [address] [facility] [address] [place] [address] Referring Physician Nephrology 02/15/20 Rita Tapia, RN [address] [place], [place] [address] Registered Nurse Sewing Machine Repairer Helper 02/15/20 documented as of this encounter
--- OUTSIDE RECORDS SUMMARY | 2024-10-16 06:37 | XMS_ITS | Encounter Summary ---
Author Organization [facility] Healthcare Address [address] [place] [address] Care Team Providers Care Apn Name Role Phone Gerardo Shah MD Primary Care Provider [phone] Suzette Strickland MD Unavailable [phone] Rita Tapia RN Unavailable [phone] Encounter Details Date Type Department Care Team (Late st Contact Info) Description 10/30/2022 Telephone [facility] Transplant Kidney [address] [address] Mailstop [phone] [place] [address] Zhane Hatfield Social History Tobacco Use Types Packs/Day Years Used Date Smoking Tobacco: Former Cigarettes 1.5 40 0 04/11/1978 - 2017 Smokeless Tobacco: Never Alcohol Use Standard Drinks/Week Comments Yes 1 (1 standard drink = 0.6 oz pur e alcohol) OCC Sex and Gender Information Value Date Recorded Sex Assigned at Not on file 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 IAL FORCES COMMUNICATIONS SERGEANT documented in this encounter Plan of Treatment Scheduled Procedures Name Priority Associated Diagnoses Date/Ti me TRANSPLANT KIDNEY ESRD (end stage renal disease) ([facility]) documented as of this encounter Visit Diagnoses Not on filedocumented in this encounter Care Teams Apn Relationship Specialty Start Date End Date Gerardo Shah MD PCP - General Internal Medicine 09/30/18 Suzette Strickland MD [address] [facility] [address] [place] [address] Referring Physician Nephrology 02/15/20 Rita Tapia, RN [address] [place], [place] [id number] Registered Nurse Retail Pos Specialist 02/15/20 documented as of this encounter
--- OUTSIDE RECORDS SUMMARY | 2024-10-16 06:37 | XMS_ITS | Encounter Summary ---
Author Organization [facility] Healthcare Address [address] [place] [address] Care Team Providers Care Millinery Designer Name Role Phone Gerardo Shah MD Primary Care Provider [phone] Suzette Strickland MD Unavailable [phone] Rita Tapia RN Unavailable [phone] Reason for Visit * Reason Onset Date Comments Waitlist Maintenance 06/28/2022 Encounter Details Date Type Department Care Team (Late st Contact Info) Description 06/28/2022 Telephone [facility] Transplant Kidney [address] [address] Mailstop [phone] [place] [address] Shahnaz Zamarripa Waitlist Maintenance Social History Tobacco Use Types Packs/Day Years Used Date Smoking Tobacco: Former Cigarettes 1.5 40 0 04/11/1978 - 2017 Smokeless Tobacco: Never Alcohol Use Standard Drinks/Week Comments Yes 1 (1 standard drink = 0.6 oz pur e alcohol) OCC Sex and Gender Information Value Date Recorded Sex Assigned at Not on file Legal Sex Male 4:54 AM ARABIC LINGUIST Gender Identity Not on file Sexual Orientation Straight 05/03/2020 10 :36 AM CDT documented as of this encounter Miscellaneous Notes * Telephone Encounter - ZamarripaErin whatleyra - 07/03/2022 9:34 AM CDT Spoke to patient on the phone. Encouraged patient to contact nurse with any questions. Reviewed the following: Demographics (email, address, phone numbers): No changes Patient contacts: No changes Insurance carriers: Confirmed [employer] as primary and Medicare A&B as secondary insurance I reminded patient of the importance of notifying the transplant center right away of any insurancechanges. Employment status and financial situation: No changes Dialysis: No changes Weight: Patient self reported being 188 pounds. BMI 23.5 Medical issues (hospitalizations, medical conditions, illnesses, infections, procedures, open wounds, new diagnoses, or positive COVID results): None reported COVID Vaccinations: None reported Social Issues/Questions: None reported documented in this encounter Plan of Treatment Scheduled Procedures Name Priority Associated Diagnoses Date/Ti me TRANSPLANT KIDNEY ESRD (end stage renal disease) ([facility] documented as of this encounter Visit Diagnoses Not on filedocumented in this encounter Care Teams Millinery Designer Relationship Specialty Start Date End Date Gerardo Shah MD PCP - General Internal Medicine 09/30/18 Suzette Strickland MD [address] [facility] [address] [place] [address] Referring Physician Nephrology 02/15/20 Rita Tapia, RN [address] [place] [address] Registered Nurse Collection Team Lead 02/15/20 documented as of this encounter
--- OUTSIDE RECORDS SUMMARY | 2024-10-16 06:37 | XMS_ITS | Encounter Summary ---
Author Organization [facility] Healthcare Address [address] [place] [address] Care Team Providers Care Motor Route Carrier Name Role Phone Gerardo Shah MD Primary Care Provider [phone] Suzette Strickland MD Unavailable [phone] Rita Tapia RN Unavailable [phone] Encounter Details Date Type Department Care Team (Late st Contact Info) Description 10/31/2022 Telephone [facility] Transplant Kidney [address] [address] Mailstop [phone] [place] [address] Zhane Hatfield Social History Tobacco Use Types Packs/Day Years Used Date Smoking Tobacco: Former Cigarettes 1.5 40 0 04/11/1978 - 2017 Smokeless Tobacco: Never Alcohol Use Standard Drinks/Week Comments Yes 1 (1 standard drink = 0.6 oz pur e alcohol) OCC Sex and Gender Information Value Date Recorded Sex Assigned at Not on file Legal Sex Male 4:54 AM GLUER AND WEDGER Gender Identity Not on file Sexual Orientation Straight 05/03/2020 10 :36 AM CDT documented as of this encounter Miscellaneous Notes * Telephone Encounter - Zhane Hatfield - 10/31/2022 12:06 PM CST Updated pt's 2022 ins benefits and entered in E1E. Pt can remain actively listed. Finance will callpt and update ins benefit information. R AND WEDGER documented in this encounter Plan of Treatment Scheduled Procedures Name Priority Associated Diagnoses Date/Ti me TRANSPLANT KIDNEY ESRD (end stage renal disease) ([facility]) documented as of this encounter Visit Diagnoses Not on filedocumented in this encounter Care Teams Motor Route Carrier Relationship Specialty Start Date End Date Gerardo Shah MD PCP - General Internal Medicine 09/30/18 Suzette Strickland MD [address] [facility] [address] [place] [address] Referring Physician Nephrology 02/15/20 Rita Tapia, RN [address] [place], [place] [id number] Registered Nurse Seismograph Computer 02/15/20 documented as of this encounter
--- OUTSIDE RECORDS SUMMARY | 2024-10-16 06:37 | XMS_ITS | Encounter Summary ---
Author Organization [facility] Healthcare Address [address] [place] [address] Care Team Providers Care Solaris Administrator Name Role Phone Gerardo Shah MD Primary Care Provider [phone] Suzette Strickland MD Unavailable [phone] Rita Tapia RN Unavailable [phone] Reason for Referral * MRI/CAT/PET Scan (Routine) - Closed Specialty Diagnoses / Procedures Referred By Kishore elkins Referred To Contact Radiology Diagnoses Malignant neoplasm of right kidney (HCC) Procedures MRI Abdomen Kidney WO Contrast Jose L Reed DO Phone: tel: fax: [address] [address] Referral ID Status Reason Start Date Expiration Date Visits Re quested Visits Authorized [id number] Closed 09/07/2021 10/07/2022 1 1 LOPMENT LEAD Reason for Visit * MRI/CAT/PET Scan (Routine) - Closed Specialty Diagnoses / Procedures Referred By Kishore elkins Referred To Contact Radiology Diagnoses Malignant neoplasm of right kidney (HCC) Procedures MRI Abdomen Kidney WO Contrast Jose L Reed DO Phone: tel: fax: [address] [place] [address] Referral ID Status Reason Start Date Expiration Date Visits Re quested Visits Authorized [id number] Closed 09/07/2021 10/07/2022 1 1 Encounter Details Date Type Department Care Team (Latest Contact Info) Description 09/11/2022 7:30 AM DEVELOPMENT LEAD - 09/11/2022 11:59 PM DEVELOPMENT LEAD Hospital Encounter [facility] [place] [address] Jose L Reed, [address] [place] [address] Malignant neoplasm of right kidney (CMS/HCC) (HCC) Discharge Disposition: Discharge to home [...] on file Legal Sex Male 4:54 AM DEVELOPMENT LEAD Gender Identity Not on file Sexual [...] CONTRAST Schedule Routine, Read Routine (OP Routine) 09/11/2022 8:40 AM DEVELOPMENT LEAD Malignant neoplasm of right kidney (CMS/HCC) (HCC) documented in this encounter Results * MRI Abdomen Kidney WO Contrast (09/11/2022 8:40 AM DEVELOPMENT LEAD) Anatomical Region Laterality Modality Body N/A Magnetic Resonan ce 09/11/2022 9:58 AM DEVELOPMENT LEAD Impressions 09/11/2022 9:58 AM DEVELOPMENT LEAD 1. Postsurgical changes from right nephrectomy with no noncontrast MR evidence of locally recurrent tumor. 2. Unchanged findings of polycystic liver and kidney disease. Electronically signed by: Vanessa Kirkland M.D. 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 Protocol: Kidney COMPARISON: 09/07/2021 FINDINGS: Liver: No surface nodularity present. There is diffuse low intensity of the liver on in phase imaging, compatible with iron deposition. Numerous cysts are seen throughout the liver, grossly similar compared to the prior exam. Gallbladder: Normal Pancreas: Normal Spleen: Iron deposition within the spleen appears present, without focal splenic lesion Adrenals: Normal Kidneys: Postsurgical changes from right radical nephrectomy are noted. The left kidney is again noted to be entirely replaced with cysts, some of which are intrinsically T1 hyperintense, compatible with hemorrhage/high density proteinaceous content. No appreciable hydronephrosis is seen. Within the nephrectomy bed, no solid tissue is identifiable within the limitations of this noncontrast exam Other Findings: No upper abdominal lymphadenopathy or ascites. Lung bases unremarkable. 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 Protocol: Kidney COMPARISON: 09/07/2021 FINDINGS: Liver: No surface nodularity present. There is diffuse low intensity of the liver on in phase imaging, compatible with iron deposition. Numerous cysts are seen throughout the liver, grossly similar compared to the prior exam. Gallbladder: Normal Pancreas: Normal Spleen: Iron deposition within the spleen appears present, without focal splenic lesion Adrenals: Normal Kidneys: Postsurgical changes from right radical nephrectomy are noted. The left kidney is again noted to be entirely replaced with cysts, some of which are intrinsically T1 hyperintense, compatible with hemorrhage/high density proteinaceous content. No appreciable hydronephrosis is seen. Within the nephrectomy bed, no solid tissue is identifiable within the limitations of this noncontrast exam Other Findings: No upper abdominal lymphadenopathy or ascites. Lung bases unremarkable. No suspicious osseous lesion IMPRESSION: 1. Postsurgical changes from right nephrectomy with no noncontrast MR evidence of locally recurrent tumor. 2. Unchanged findings of polycystic liver and kidney disease. Electronically signed by: Vanessa Kirkland M.D. Jose L Reed DO [facility] MRI PROCEDURES Final Result documented in this encounter Visit Diagnoses Diagnosis Malignant neoplasm of right kidney (HCC) documented in this encounter Care Teams Solaris Administrator Relationship Specialty Start Date End Date Gerardo Shah MD PCP - General Internal Medicine 09/30/18 Suzette Strickland MD [address] [facility] [address] [place] [address] Referring Physician Nephrology 02/15/20 Rita Tapia, RN [address] [place] [address] Registered Nurse Liner Installer 02/15/20 documented as of this encounter
--- OUTSIDE RECORDS SUMMARY | 2024-10-16 06:37 | XMS_ITS | Encounter Summary ---
Author Organization [facility] Healthcare Address [address] [place] [address] Care Team Providers Care Demand Manager Name Role Phone Gerardo Shah MD Primary Care Provider [phone] Suzette Strickland MD Unavailable [phone] Rita Tapia RN Unavailable [phone] Encounter Details Date Type Department Care Team (Latest Contact Info) Description 05/06/2023 10:00 AM CDT - 05/06/2023 11:59 PM CDT Hospital Encounter [address] [address] ESRD (end stage renal disease) ([facility]) ([facility]) Discharge Disposition: Discharge to home [...] on file Legal Sex Male 4:54 AM NAILER HAND Gender Identity Not on file Sexual Orientation [...] TRANSPLANT KIDNEY ESRD (end stage renal disease) ([facility]) documented as of this encounter Procedures Procedure Name Priority Date/Time Associated Diagnosis Comments HLA ANTIBODY SCREEN BY PRA OR SAB PER SCHEDULE (CLASS I AND CLASS II) Routine 05/06/2023 10:00 AM CDT ESRD (end stage renal disease) ([facility]) ([facility]) HLA ANTIBODY SCREEN - SAB (CLASS I AND CLASS II) Routine 05/06/2023 10:00 AM CDT ESRD (end stage renal disease) ([facility]) ([facility]) documented in this encounter Results * HLA Antibody Screen - SAB (Class I and Class II) (05/06/2023 10:00 AM CDT) Class I Treatment EDTA HISTOTRAC Class I Dilution 1:1 HISTOTRAC Class I Tested Date 05/09/2023 HISTOTRAC Class I Result Negative HISTOTRAC Class I CPRA 0 HISTOTRAC Class I Low Risk A34 HISTOTRAC Class II Treatment EDTA HISTOTRAC Class II Dilution 1:1 HISTOTRAC Class II Tested Date 05/09/2023 HISTOTRAC Class II Result Positive HISTOTRAC Class II CPRA 16 HISTOTRAC Class II Moderate Risk DPB1*01:01 HISTOTRAC Class II Low Risk DQ7; DPB1*11:01 HISTOTRAC 05/06/2023 10:0 0 AM CDT 05/10/2023 2:55 PM CDT Narrative HISTOTRAC - 05/10/2023 2:55 PM CDT Single-antigen HLA antibody screen is performed on serum samples using a method developed and validated by the [facility] HLA laboratory based on an FDA-approved IVD kit (SiOxcreen Single-Antigen, alaTest, [facility] [place]). All patient serum samples are pretreated with EDTA before the screen to prevent complement interference. Additional serum treatments, such as adsorption and DTT treatment, may be performed as indicated. ??Interpretive comments: Low risk: MFI [id number]. Moderate risk: MFI 7144-7206. Increased risk: MFI >/= 5000. The presence [...] antigens to avoid. Testing performed at the [facility], [address], 5th floor, [facility], [place], [address]. [facility] # [id number]. Maice Vizcaino M.D., Associate HLA Public Relations Coordinator Harman Flores M.D., Ph.D., HLA Public Relations Coordinator Aviva Conway, Ph.D., Retail Sales Director, [facility] Current methodology and interpretive comments last revised on 11/22/2022. Tatianna Moyer MD LAB BLOOD ORDERABL ES Final Result HISTOTRAC * HLA Antibody Screen by PRA or SAB per Schedule (Class I and Class II) (05/06/2023 10:00 AM CDT) Blood specimen (specimen) 05/06/2023 10:00 AM CDT Narrative HISTOTRAC - NAILER HAND Sample received in lab. ??Single Antigen Antibody Screen ordered. Tatianna Moyer MD LAB BLOOD ORDERABL ES Final Result HISTOTRAC documented in this encounter Visit Diagnoses Diagnosis ESRD (end stage renal disease) (CMS/HCC) ([facility]) End stage renal disease documented in this encounter Care Teams Demand Manager Relationship Specialty Start Date End Date Gerardo Shah MD PCP - General Internal Medicine 09/30/18 Suzette Strickland MD [address] [facility] [address] [place] [address] Referring Physician Nephrology 02/15/20 Rita Tapia, RN [address] [place] [address] Registered Nurse Environmental Field Professional 02/15/20 documented as of this encounter
--- OUTSIDE RECORDS SUMMARY | 2024-10-16 06:37 | XMS_ITS | Encounter Summary ---
Author Organization [facility] Healthcare Address [address] [place] [address] Care Team Providers Care Video Game Programmer Name Role Phone Gerardo Shah MD Primary Care Provider [phone] Suzette Strickland MD Unavailable [phone] Rita Tapia RN Unavailable [phone] Reason for Visit * Reason Onset Date Comments Waitlist Maintenance 03/05/2023 Encounter Details Date Type Department Care Team (Late st Contact Info) Description 03/05/2023 Telephone [facility] Transplant Kidney [address] [address] Mailstop [phone] [place] [address] Rhoda Morejon Waitlist Maintenance Social History Tobacco Use Types Packs/Day Years Used Date Smoking Tobacco: Former Cigarettes 1.5 40 0 04/11/1978 - 2017 Smokeless Tobacco: Never Alcohol Use Standard Drinks/Week Comments Yes 1 (1 standard drink = 0.6 oz pur e alcohol) OCC Sex and Gender Information Value Date Recorded Sex Assigned at Not on file Legal Sex Male 4:54 AM BAND EDGER Gender Identity Not on file Sexual Orientation Straight 05/03/2020 10 :36 AM CDT documented as of this encounter Miscellaneous Notes * Telephone Encounter - Rhoda Morejon - 03/05/2023 11:08 AM CDT Spoke to patient on the phone. Encouraged patient to contact nurse with any questions. Reviewed the following: Demographics (email, address, phone numbers): No changes Patient contacts: No changes Insurance carriers: Patient confirmed [employer] as primary and Medicare A&B as secondary insurance. I reminded patient of the importance of notifying the transplant center right away of any insurancechanges. Employment status and financial situation: No changes Dialysis: Patient stated he is now at [facility] Dialysis. I called Dialysis center & Zhane confirmed they started here on 01/28/2023 Mon,Wed,Fri PM. Weight: Patient self reported being 86 kilos BMI 23.7 Medical issues (hospitalizations, medical conditions, illnesses, infections, procedures, open wounds, new diagnoses, or positive COVID results): None reported COVID Vaccinations: None reported Social Issues/Questions: None reported documented in this encounter Plan of Treatment Scheduled Procedures Name Priority Associated Diagnoses Date/Ti me TRANSPLANT KIDNEY ESRD (end stage renal disease) ([facility]) documented as of this encounter Visit Diagnoses Not on filedocumented in this encounter Care Teams Video Game Programmer Relationship Specialty Start Date End Date Gerardo Shah MD PCP - General Internal Medicine 09/30/18 Suzette Strickland MD [address] [facility] [address] [place] [address] Referring Physician Nephrology 02/15/20 Rita Tapia, RN [address] [place] [address] Registered Nurse Tip Banding Machine Operator 02/15/20 documented as of this encounter
--- OUTSIDE RECORDS SUMMARY | 2024-10-16 06:37 | XMS_ITS | Encounter Summary ---
Author Organization [facility] Healthcare Address [address] [place] [address] Care Team Providers Care Property Insurance Inspector Name Role Phone Gerardo Shah MD Primary Care Provider [phone] Suzette Strickland MD Unavailable [phone] Rita Tapia RN Unavailable [phone] Encounter Details Date Type Department Care Team (Late st Contact Info) Description 01/30/[address] [facility] Transplant Kidney [address] [address] Mailstop [phone] [place] [address] Zhane Hatfield Social History Tobacco Use Types Packs/Day Years Used Date Smoking Tobacco: Former Cigarettes 1.5 40 0 04/11/1978 - 2017 Smokeless Tobacco: Never Alcohol Use Standard Drinks/Week Comments Yes 1 (1 standard drink = 0.6 oz pur e alcohol) OCC Sex and Gender Information Value Date Recorded Sex Assigned at Not on file Legal Sex Male 4:54 AM BAKESHOP CLEANER Gender Identity Not on file Sexual Orientation Straight 05/03/2020 10 :36 AM CDT documented as of this encounter Miscellaneous Notes * Telephone Encounter - Zhane Hatfield - 01/30/2023 12:15 PM CDT Received msg from Anny Gillespie cm at [facility] ([phone]) f/u to get status updateon pt and if still actively listed. Returned call and provided requested information. documented in this encounter Plan of Treatment Scheduled Procedures Name Priority Associated Diagnoses Date/Ti me TRANSPLANT KIDNEY ESRD (end stage renal disease) ([facility]) documented as of this encounter Visit Diagnoses Not on filedocumented in this encounter Care Teams Property Insurance Inspector Relationship Specialty Start Date End Date Gerardo Shah MD PCP - General Internal Medicine 09/30/18 Suzette Strickland MD [facility] [address] [place] [address] Referring Physician Nephrology 02/15/20 Rita Tapia, RN [address] [place], [place] [address] Registered Nurse Fruit Washer 02/15/20 documented as of this encounter
--- OUTSIDE RECORDS SUMMARY | 2024-10-16 06:37 | XMS_ITS | Encounter Summary ---
Author Organization [facility] Healthcare Address [address] [place] [address] Care Team Providers Care Welding Machine Operator Helper Gas Name Role Phone Gerardo Shah MD Primary Care Provider [phone] Suzette Strickland MD Unavailable [phone] Rita Tapia RN Unavailable [phone] Encounter Details Date Type Department Care Team (Late st Contact Info) Description 09/06/2022 Telephone [facility] Transplant Kidney [address] [address] Mailstop [phone] [place] [address] Zhane Hatfield Social History Tobacco Use Types Packs/Day Years Used Date Smoking Tobacco: Former Cigarettes 1.5 40 0 04/11/1978 - 2017 Smokeless Tobacco: Never Alcohol Use Standard Drinks/Week Comments Yes 1 (1 standard drink = 0.6 oz pur e alcohol) OCC Sex and Gender Information Value Date Recorded Sex Assigned at Not on file Legal Sex Male 4:54 AM POWER GENERATION PLANT OPERATOR Gender Identity Not on file Sexual Orientation Straight 05/03/2020 10 :36 AM CDT documented as of this encounter Miscellaneous Notes * Telephone Encounter - Zhane Hatfield - 09/06/2022 4:18 PM CST Finance will re-verify ins coverage for 2022. Right now pt remains Medicare secondary (Medicare will be primary 07-28-2023). Called and spoke to both pt and spouse who confirmed same ins for next year. Finance will request new approval if needed for 2022. R GENERATION PLANT OPERATOR documented in this encounter Plan of Treatment Scheduled Procedures Name Priority Associated Diagnoses Date/Ti me TRANSPLANT KIDNEY ESRD (end stage renal disease) ([facility]) documented as of this encounter Visit Diagnoses Not on filedocumented in this encounter Care Teams Welding Machine Operator Helper Gas Relationship Specialty Start Date End Date Gerardo Shah MD PCP - General Internal Medicine 09/30/18 Suzette Strickland MD [facility] [address] [place] [address] Referring Physician Nephrology 02/15/20 Rita Tapia, RN [address] [place] [address] Registered Nurse Cena 02/15/20 documented as of this encounter
--- OUTSIDE RECORDS SUMMARY | 2024-10-16 06:37 | XMS_ITS | Encounter Summary ---
Author Organization [facility] Healthcare Address [address] [place] [address] Care Team Providers Care Pier Master Assistant Name Role Phone Gerardo Shah MD Primary Care Provider [phone] Suzette Strickland MD Unavailable [phone] Rita Tapia RN Unavailable [phone] Reason for Visit * Reason Onset Date Comments Waitlist Maintenance 12/26/2022 Encounter Details Date Type Department Care Team (Late st Contact Info) Description 12/26/[address] [facility] Transplant Kidney [address] [address] Mailstop [phone] [place] [address] Rhoda Morejon Waitlist Maintenance Social History Tobacco Use Types Packs/Day Years Used Date Smoking Tobacco: Former Cigarettes 1.5 40 0 04/11/1978 - 2017 Smokeless Tobacco: Never Alcohol Use Standard Drinks/Week Comments Yes 1 (1 standard drink = 0.6 oz pur e alcohol) OCC Sex and Gender Information Value Date Recorded Sex Assigned at Not on file Legal Sex Male 4:54 AM KNIFE OPERATOR Gender Identity Not on file Sexual Orientation Straight 05/03/2020 10 :36 AM CDT documented as of this encounter Miscellaneous Notes * Telephone Encounter - Rhoda Morejon - 12/31/2022 11:37 AM CST Spoke to patient on the phone. Encouraged patient to contact nurse with any questions. Reviewed the following: Demographics (email, address, phone numbers): No changes Patient contacts: No changes Insurance carriers: Confirmed [employer] as primary and Medicare A&B as secondary insurance I reminded patient of the importance of notifying the transplant center right away of any insurancechanges. Employment status and financial situation: No changes Dialysis: Patient stated he will be going to Dialysis at [facility] soon due to the centerhe is going to now is closing. Weight: Patient self reported being 189 pounds. BMI 23.6 Medical issues (hospitalizations, medical conditions, illnesses, infections, procedures, open wounds, new diagnoses, or positive COVID results): Patient stated he was seen at the ER in [place] in 11/2022 due to a bacteria infection. He stated he was throwing up & had stomach cramps. He was at the ER for 5-6 hours & was given an antibiotic he is no longer taking & feeling better. COVID Vaccinations: None reported Social Issues/Questions: None reported E OPERATOR documented in this encounter Plan of Treatment Scheduled Procedures Name Priority Associated Diagnoses Date/Ti me TRANSPLANT KIDNEY ESRD (end stage renal disease) ([facility] documented as of this encounter Visit Diagnoses Not on filedocumented in this encounter Care Teams Pier Master Assistant Relationship Specialty Start Date End Date Gerardo Shah MD PCP - General Internal Medicine 09/30/18 Suzette Strickland MD [facility] [address] [place] [address] Referring Physician Nephrology 02/15/20 Rita Tapia, RN [address] [place] [address] Registered Nurse Communications Strategist 02/15/20 documented as of this encounter
--- OUTSIDE RECORDS SUMMARY | 2024-10-16 06:37 | XMS_ITS | Encounter Summary ---
Author Organization [facility] Healthcare Address [address] [place] [address] Care Team Providers Care Automation And Controls Supervisor Name Role Phone Gerardo Shah MD Primary Care Provider [phone] Suzette Strickland MD Unavailable [phone] Rita Tapia RN Unavailable [phone] Encounter Details Date Type Department Care Team (Latest Contact Info) Description 05/02/2022 10:00 AM CDT - 05/02/2022 11:59 PM CDT Hospital Encounter [address] [address] ESRD (end stage renal disease) ([facility]) ([facility]) Discharge Disposition: Discharge to home or self [...] on file Legal Sex Male 4:54 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 Gender Identity Not on file Sexual Orientation [...] ESRD (end stage renal disease) ([facility]) documented as of this encounter Procedures Procedure Name Priority Date/Time Associated Diagnosis Comments HLA ANTIBODY SCREEN BY PRA OR SAB PER SCHEDULE (CLASS I AND CLASS II) Routine 05/02/2022 10:00 AM CDT ESRD (end stage renal disease) ([facility]) ([facility]) HLA ANTIBODY SCREEN - SAB (CLASS I AND CLASS II) Routine 05/02/2022 10:00 AM CDT ESRD (end stage renal disease) ([facility]) ([facility]) documented in this encounter Results * HLA Antibody Screen - SAB (Class I and Class II) (05/02/2022 10:00 AM CDT) Class I Treatment EDTA HISTOTRAC Class I Dilution 1:1 HISTOTRAC Class I Tested Date 05/05/2022 HISTOTRAC Class I Result Positive HISTOTRAC Class I CPRA 1 HISTOTRAC Class I Moderate Risk A34 HISTOTRAC Class I Low Risk B37 HISTOTRAC Class II Treatment EDTA HISTOTRAC Class II Dilution 1:1 HISTOTRAC Class II Tested Date 05/05/2022 HISTOTRAC Class II Result Positive HISTOTRAC Class II Moderate Risk DQA1*06; DPB1*01:01 HISTOTRAC Class II Low Risk DQ7; DP11 HISTOTRAC 05/02/2022 10:0 0 AM CDT 05/07/2022 11:55 AM CDT Narrative HISTOTRAC - 05/07/2022 11:55 AM CDT Single-antigen HLA antibody screen is performed on serum samples using a method developed and validated by the [facility] HLA laboratory based on an FDA-approved IVD kit ([employer] Groupcreen Single-Antigen, [place], [facility] [place]). All patient serum samples are pretreated with EDTA before the screen to prevent complement interference. Additional serum treatments, such as adsorption and DTT treatment, may be performed as indicated. ??Interpretive comments: Low risk: MFI [id number]. Moderate risk: MFI [id number]. Increased risk: MFI >/= 5000. The presence [...] to avoid. Testing performed at the [facility], [address] [place] [address], 5th floor, [place], [address]. CLIA # [id number]. Macie Vizcaino M.D., Associate HLA Director Of Reimbursement Harman Flores M.D., Ph.D., HLA Director Of Reimbursement Aviva Conway, Ph.D., Database Architect, [facility] Current methodology and interpretive comments last revised on 01/05/2020. Tatianna Moyer MD LAB BLOOD ORDERABL ES Final Result Performing Organization Address City/[facility]/ZIP Co de Phone Number HISTOTRAC * HLA Antibody Screen by PRA or SAB per Schedule (Class I and Class II) (05/02/2022 10:00 AM CDT) Blood specimen (specimen) 05/02/2022 10:00 AM CDT Narrative HISTOTRAC - GOLF COURSE ARCHITECT Sample received in lab. ??Single Antigen Antibody Screen ordered. Tatianna Moyer MD LAB BLOOD ORDERABL ES Final Result Performing Organization Address City/[facility] Co de Phone Number HISTOTRAC documented in this encounter Visit Diagnoses Diagnosis ESRD (end stage renal disease) ([facility]/HCC) ([facility]) End stage renal disease documented in this encounter Care Teams Automation And Controls Supervisor Relationship Specialty Start Date End Date Gerardo Shah MD PCP - General Internal Medicine 09/30/18 Suzette Strickland MD [address] [facility] [address] [place] [address] Referring Physician Nephrology 02/15/20 Rita Tapia, RN [address] [place] [address] Registered Nurse Brake Drum Molder 02/15/20 documented as of this encounter
--- OUTSIDE RECORDS SUMMARY | 2024-10-16 06:37 | XMS_ITS | Encounter Summary ---
Author Organization [facility] Healthcare Address [address] [place] [address] Care Team Providers Care Hosted Services Analyst Name Role Phone Gerardo Shah MD Primary Care Provider [phone] Suzette Strickland MD Unavailable [phone] Rita Tapia RN Unavailable [phone] Encounter Details Date Type Department Care Team (Latest Contact Info) Description 07/11/2022 10:00 AM CDT - 07/11/2022 11:59 PM CDT Hospital Encounter [address] [address] ESRD (end stage renal disease) ([facility]) ([facility]) Discharge Disposition: Discharge to home or self [...] on file 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 Gender Identity Not on file Sexual [...] TRANSPLANT KIDNEY ESRD (end stage renal disease) ([facility]) documented as of this encounter Procedures Procedure Name Priority Date/Time Associated Diagnosis Comments HLA ANTIBODY SCREEN BY PRA OR SAB PER SCHEDULE (CLASS I AND CLASS II) Routine 07/11/2022 10:00 AM CDT ESRD (end stage renal disease) ([facility]) ([facility]) HLA ANTIBODY SCREEN BY PRA Routine 07/11/2022 10:00 AM CDT ESRD (end stage renal disease) ([facility]) ([facility]) HLA ANTIBODY SCREEN - SAB (CLASS I AND CLASS II) Routine 07/11/2022 10:00 AM CDT ESRD (end stage renal disease) ([facility]) ([facility]) documented in this encounter Results * HLA Antibody Screen - SAB (Class I and Class II) (07/11/2022 10:00 AM CDT) Class I Treatment EDTA HISTOTRAC Class I Dilution 1:1 HISTOTRAC Class I Tested Date 07/13/2022 HISTOTRAC Class I Result Negative HISTOTRAC Class I CPRA 0 HISTOTRAC Class I Low Risk A34; B37 HISTOTRAC Class II Treatment EDTA HISTOTRAC Class II Dilution 1:1 HISTOTRAC Class II Tested Date 07/13/2022 HISTOTRAC Class II Result Positive HISTOTRAC Class II Moderate Risk DPB1*01:01 HISTOTRAC Class II Low Risk DQ7; DP11 HISTOTRAC 07/11/2022 10:0 0 AM CDT 07/16/2022 9:27 AM CDT Narrative HISTOTRAC - 07/16/2022 9:27 AM CDT Single-antigen HLA antibody screen is performed on serum samples using a method developed and validated by the [facility] HLA laboratory based on an FDA-approved IVD kit (LABScreen Single-Antigen, [employer], [place], [place]). All patient serum samples are pretreated with EDTA before the screen to prevent complement interference. Additional serum treatments, such as adsorption and DTT treatment, may be performed as indicated. ??Interpretive comments: Low risk: MFI [id number]. Moderate risk: MFI [phone]. Increased risk: MFI >/= 5000. The presence [...] antigens to avoid. Testing performed at the [facility], [facility], 5th [facility], [facility], [place], [address]. [facility] # [id number]. Macie Vizcaino M.D., Associate HLA Tile Conduit Layer Harman Flores M.D., Ph.D., HLA Tile Conduit Layer Aviva Conway, Ph.D., Brake Liner, [facility] Current methodology and interpretive comments last revised on 01/05/2020. Tatianna Moyer MD LAB BLOOD ORDERABL ES Final Result Performing Organization Address City/[facility]/ZIP Co de Phone Number HISTOTR * Collection Task for HLA Antibody Screen (07/11/2022 10:00 AM CDT) HLA Antibody Screen by PRA Received [facility] Blood 07/11/2022 10:0 0 AM CDT 07/12/2022 2:34 PM CDT Tatianna Moyer MD LAB BLOOD ORDERABL ES Final Result Performing Organization Address City/[facility] Co de Phone Number [facility] Department [place] [address] * HLA Antibody Screen by PRA or SAB per Schedule (Class I and Class II) (07/11/2022 10:00 AM CDT) Blood specimen (specimen) 07/11/2022 10:00 AM CDT Narrative HISTOTRAC - SALMON GILLNET VESSEL OPERATOR Sample received in lab. ??Single Antigen Antibody Screen ordered. Tatianna Moyer MD LAB BLOOD ORDERABL ES Final Result HISTOTRAC documented in this encounter Visit Diagnoses Diagnosis ESRD (end stage renal disease) (CMS/HCC) (HCC) End stage renal disease documented in this encounter Care Teams Hosted Services Analyst Relationship Specialty Start Date End Date Gerardo Shah MD PCP - General Internal Medicine 09/30/18 Suzette Strickland MD [facility] [address] [place] [address] Referring Physician Nephrology 02/15/20 Rita Tapia, RN [address] [place], [place] [id number] Registered Nurse Plate Glass Polisher 02/15/20 documented as of this encounter
--- OUTSIDE RECORDS SUMMARY | 2024-10-16 06:37 | XMS_ITS | Encounter Summary ---
Author Organization [facility] Healthcare Address [address] [place] [address] Care Team Providers Care Material Handler Name Role Phone Gerardo Shah MD Primary Care Provider [phone] Suzette Strickland MD Unavailable [phone] Rita Tapia RN Unavailable [phone] Encounter Details Date Type Department Care Team (Late st Contact Info) Description 11/08/2022 Documentation [facility] Transplant Kidney [address] [facility] [address] [phone] [place], [place] [id number] Rita Tapia, RN [address] [place], [place] [id number] Social History Tobacco Use Types Packs/Day Years Used Date Smoking Tobacco: Former Cigarettes 1.5 40 0 04/11/1978 - 2017 Smokeless Tobacco: Never Alcohol Use Standard Drinks/Week Comments Yes 1 (1 standard drink = 0.6 oz pur e alcohol) OCC Sex and Gender Information Value Date Recorded Sex Assigned at Not on file 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 Patient has active immunity. Patient is not in need of being vaccinated. GRAPHIC COMPUTATOR documented in this encounter Plan of Treatment Scheduled Procedures Name Priority Associated Diagnoses Date/Ti me TRANSPLANT KIDNEY ESRD (end stage renal disease) ([facility]) documented as of this encounter Visit Diagnoses Not on filedocumented in this encounter Care Teams Material Handler Relationship Specialty Start Date End Date Gerardo Shah MD PCP - General Internal Medicine 09/30/18 Suzette Strickland MD [facility] [address] [place] [address] Referring Physician Nephrology 02/15/20 Rita Tapia, RN [address] [place] [address] Registered Nurse Jacquard Plate Maker 02/15/20 documented as of this encounter
--- OUTSIDE RECORDS SUMMARY | 2024-10-16 06:37 | XMS_ITS | Encounter Summary ---
Author Organization [facility] Healthcare Address [address] [place] [address] Care Team Providers Care Marine Engine Mechanic Name Role Phone Gerardo Shah MD Primary Care Provider [phone] Suzette Strickland MD Unavailable [phone] Rita Tapia RN Unavailable [phone] Reason for Referral * Diagnostic Imaging (Routine) - Closed Specialty Diagnoses / Procedures Referred By Contac t Referred To Contact Diagnoses 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) (HCC) Procedures XR Chest Pa Lateral 2 Views Perla Valadez MD [address] [place] [address] Phone: tel: fax: [facility] [address] [place] [address] Referral ID Status Reason Start Date Expiration Date Visits Re quested Visits Authorized [id number] Closed 09/06/2022 10/06/2023 1 1 NSE ANALYST Reason for Visit * Diagnostic Imaging (Routine) - Closed Specialty Diagnoses / Procedures Referred By Contac t Referred To Contact Diagnoses 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) (HCC) Procedures XR Chest Pa Lateral 2 Views Perla Valadez MD [address] [place] [address] Phone: tel: fax: [facility] [address] [facility] [place] [address] Referral ID Status Reason Start Date Expiration Date Visits Re quested Visits Authorized [id number] Closed 09/06/2022 10/06/2023 1 1 Encounter Details Date Type Department Care Team (Latest Contact Info) Description 11/08/2022 8:15 AM EXPENSE ANALYST - 11/08/2022 8:17 AM EXPENSE ANALYST Hospital Encounter [facility] [address] [place] [id number] Stage 5 chronic kidney disease on chronic [...] on file Legal Sex Male 4:54 AM EXPENSE ANALYST Gender Identity Not on file Sexual [...] stage renal disease) ([facility]) documented as of this encounter Procedures Procedure Name Priority Date/Time Associated Diagnosis Comments XR CHEST PA LATERAL 2 VIEWS Schedule Routine, Read Routine (OP Routine) 11/08/2022 8:42 AM EXPENSE ANALYST Stage 5 chronic kidney disease on chronic dialysis ([facility]) ([facility]) documented in this encounter Results * XR Chest Pa Lateral 2 Views (11/08/2022 8:42 AM EXPENSE ANALYST) Anatomical Region Laterality Modality Body, Chest N/A Computed Radiogr aphy 11/08/2022 10:1 9 AM EXPENSE ANALYST Impressions 11/08/2022 10:19 AM EXPENSE ANALYST Comparison exam is dated 06/08/2021. The lungs are hyperinflated. ??No confluent pulmonary infiltrates or suspicious pulmonary nodules are seen. The cardiomediastinal silhouette is normal. No change. Electronically signed by: Luciano Vuong M.D. Narrative 11/08/2022 10:19 AM EXPENSE ANALYST EXAMINATION: 2 view chest radiograph Procedure Note [...] (HCC) documented in this encounter Care Teams Marine Engine Mechanic Relationship Specialty Start Date End Date Gerardo Shah MD PCP - General Internal Medicine 09/30/18 Suzette Strickland MD [address] [facility] [address] [place] [address] Referring Physician Nephrology 02/15/20 Rita Tapia, RN [address] [place], [place] [id number] Registered Nurse Analyst Competitive Intelligence 02/15/20 documented as of this encounter
--- OUTSIDE RECORDS SUMMARY | 2024-10-16 06:37 | XMS_ITS | Encounter Summary ---
Author Organization [facility] Healthcare Address [address] [place] [address] Care Team Providers Care Gasoline Locomotive Crane Operator Name Role Phone Gerardo Shah MD Primary Care Provider [phone] Suzette Strickland MD Unavailable [phone] Rita Tapia RN Unavailable [phone] Reason for Referral * Cardiology (Routine) - Closed Specialty Diagnoses / Procedures Referred By Contac t Referred To Contact Diagnoses 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) (HCC) Procedures Stress Echo Pharmacologic W Doppler/CF Ro Valadez MD [address] [place] [address] Phone: tel: fax: [facility] [address] [place] [address] Referral ID Status Reason Start Date Expiration Date Visits Re quested Visits Authorized [id number] Closed 09/06/2022 10/06/2023 1 1 PRINTING PRESS OPERATOR Reason for Visit * Cardiology (Routine) - Closed Specialty Diagnoses / Procedures Referred By Contac t Referred To Contact Diagnoses 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) (HCC) Procedures Stress Echo Pharmacologic W Doppler/CF Ro Valadez MD [address] [place] [address] Phone: tel: fax: [address] [address] Referral ID Status Reason Start Date Expiration Date Visits Re quested Visits Authorized [id number] Closed 09/06/2022 10/06/2023 1 1 Encounter Details Date Type Department Care Team (Latest Contact Info) Description 11/08/2022 9:26 AM TOP PRINTING PRESS OPERATOR - 11/08/2022 11:59 PM TOP PRINTING PRESS OPERATOR Hospital Encounter [facility] [address] [place] [address] Stage 5 chronic kidney disease on [...] on file Legal Sex Male 4:54 AM TOP PRINTING PRESS OPERATOR Gender Identity Not on file Sexual Orientation Straight 05/03/2020 10 :36 AM CDT documented as of this encounter Last Filed Vital Signs Vital Sign Reading Time Taken Comments Blood Pressure 126/71 11/08/2022 11:14 AM TOP PRINTING PRESS OPERATOR Pulse 87 11/08/2022 11:14 AM TOP PRINTING PRESS OPERATOR Temperature - - Respiratory Rate - - Oxygen Saturation - - Inhaled Oxygen Concentration - - Weight 86.6 kg (191 lb) 11/08/2022 10:17 AM TOP PRINTING PRESS OPERATOR Height 190.5 cm (6' 3 ) 11/08/2022 10:17 AM TOP PRINTING PRESS OPERATOR Body Mass Index 23.87 11/08/2022 10:17 AM TOP PRINTING PRESS OPERATOR documented in this encounter Medications at Time of Discharge [...] Procedure Name Priority Date/Time Associated Diagnosis Comments STRESS ECHO PHARMACOLOGIC W DOPPLER/CF W CONTRAST Routine 11/08/2022 11:04 AM TOP PRINTING PRESS OPERATOR Stage 5 chronic kidney disease on chronic dialysis ([facility] ([facility]) documented in this encounter Results * STRESS ECHO PHARMACOLOGIC W DOPPLER/CF W CONTRAST (11/08/2022 11:04 AM TOP PRINTING PRESS OPERATOR) LV EF 69 % CARDIOREPORT Anatomical Region Laterality Modality Ultrasound 11/08/2022 10:3 0 AM TOP PRINTING PRESS OPERATOR Narrative 11/08/2022 11:53 AM TOP PRINTING PRESS OPERATOR Patient name: Abel Browne Date of test: 11/08/2022 Hospital #: [id number] ?Location: [facility] Interpreted by: Dino Urena MD Scrap Picker: Rosa Maria Starks RDCS RN: Destiny Griffith RN Reason for Test: renal transplant evaluation Study quality: Technically good Referring Physician: RO VALADEZ MD Contrast Agent: 1.9 ml Optison Administered, (1.1 ml wasted). BASELINE STUDY: Wall Motion Scoring (1=Normal 2=Hypo 3=Akinetic 4=Dyskin./Aneurysm 0=Not visualized) Parasternal Long [place]:MAS=1 BAS=1 MIL=1 KENDRA=1 Parasternal Short [place]:MAS=1 MIS=1 MO=1 MIL=1 MAL=1 MA=1 Apical 4 Chambers:=1 MIS=1 BIS=1 BAL=1 MAL=1 AL=1 AC=1 Apical 2 Chambers:AI=1 MO=1 BI=1 BA=1 MA=1 AA=1 AC=1 Ejection Fraction: 69% LV Global Strain: -22% RV Global Strain: -23.9% LV Global Function: Normal left ventricular systolic function. Baseline Echo Comments: Normal LV size and systolic function; LVEF=69%. No segmental wall motion abnormalities. Miild concentric LVH. Biatrial enlargement. Mild RV enlargement with normal function. IVC is normal size. Normal aortic root size. Doppler/CF Comments: trace AR, mild OH, mild MR, ??No MS, No , No TR. Inadequate TR jet to estimate PASP. Baseline HR: 67 Baseline BP: 113/61 Conduction Defects: None Resting ECG Comments: SR w/ NSSTTWA Medications: metoprolol norvasc asa bumex Meds held: metoprolol POST DOBUTAMINE STUDY: Wall Motion Scoring (1=Normal 2=Hypo 3=Akinetic 4=Dyskin./Aneurysm 0=Not visualized) Parasternal Long [place]:MAS=1 BAS=1 MIL=1 KENDRA=1 Parasternal Short [place]:MAS=1 MIS=1 MO=1 MIL=1 MAL=1 MA=1 Apical 4 Chambers:=1 MIS=1 BIS=1 BAL=1 MAL=1 AL=1 AC=1 Apical 2 Chambers:AI=1 MO=1 BI=1 BA=1 MA=1 AA=1 AC=1 Intravenous dobutamine [...] - 11:53:50 by Dino Urena MD ?? Hitch Technician: Ishaan Ornelas MD By signing this report, the attending house detective certifies that he or she has personally supervised and interpreted the echocardiogram and has reviewed and or edited and agrees with the written comments contained within the report. Procedure Note Dino Urena MD - 11/08/2022 Patient name: Abel Browne Date of test: 11/08/2022 Hospital #: [id number] Location: [facility] Interpreted by: Dino Urena MD Scrap Picker: Rosa Maria Starks RDCS RN: Destiny Griffith RN Reason for Test: renal transplant evaluation Study quality: Technically good Referring Physician: RO VALADEZ MD Contrast Agent: 1.9 ml Optison Administered, (1.1 ml wasted). BASELINE STUDY: Wall Motion Scoring (1=Normal 2=Hypo 3=Akinetic 4=Dyskin./Aneurysm 0=Not visualized) Parasternal Long [place]:MAS=1 BAS=1 MIL=1 KENDRA=1 Parasternal Short [place]:MAS=1 MIS=1 MO=1 MIL=1 MAL=1 MA=1 Apical 4 Chambers:=1 MIS=1 BIS=1 BAL=1 MAL=1 AL=1 AC=1 Apical 2 Chambers:AI=1 MO=1 BI=1 BA=1 MA=1 AA=1 AC=1 Ejection Fraction: 69% LV Global Strain: -22% RV Global Strain: -23.9% LV Global Function: Normal left ventricular systolic function. Baseline Echo Comments: Normal LV size and systolic function; LVEF=69%. No segmental wall motion abnormalities. Miild concentric LVH. Biatrial enlargement. Mild RV enlargement with normal function. IVC is normal size. Normal aortic root size. Doppler/CF Comments: trace AR, mild OH, mild MR, No MS, No , No TR. Inadequate TR jet to estimate PASP. Baseline HR: 67 Baseline BP: 113/61 Conduction Defects: None Resting ECG Comments: SR w/ NSSTTWA Medications: metoprolol norvasc asa bumex Meds held: metoprolol POST DOBUTAMINE STUDY: Wall Motion Scoring (1=Normal 2=Hypo 3=Akinetic 4=Dyskin./Aneurysm 0=Not visualized) Parasternal Long [place]:MAS=1 BAS=1 MIL=1 KENDRA=1 Parasternal Short [place]:MAS=1 MIS=1 MO=1 MIL=1 MAL=1 MA=1 Apical 4 Chambers:=1 MIS=1 BIS=1 BAL=1 MAL=1 AL=1 AC=1 Apical 2 Chambers:AI=1 MO=1 BI=1 BA=1 MA=1 AA=1 AC=1 Intravenous dobutamine [...] 11/08/2022 - 11:53:50 by Dino Urena MD Hitch Technician: Ishaan Ornelas MD By signing this report, the attending house detective certifies that he or she has personally supervised and interpreted the echocardiogram and has reviewed and or edited and agrees with the written comments contained within the report. us Ro Valadez MD CV ECHO PROCEDURES Final Result documented in this encounter Visit Diagnoses Diagnosis 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) (HCC) documented in this encounter Administered Medications Inactive Administered Medications - up to 3 most recent administrations Medication Order MAR Action Action Date Dose Rate Site atropine injection 0-2 mg 0-2 mg, intravenous, Administer over 1 Minutes, Titrated, Starting on Brenna 11/08/22 at 1100, For 2 hours, Intra-Procedure (CV) New Bag 11/08/2022 11:05 AM TOP PRINTING PRESS OPERATOR 0.3 mg DOBUTamine in dextrose 5% (DOBUTREX) 100 mg/50 mL (2,000 mcg/mL) infusion (premix) 10-50 mcg/kg/min ? 86.6 kg (25.98-129.9 mL/hr, rounded to 26-129.9 mL/hr), intravenous, Titrated, Starting on Brenna 11/08/22 at 1100, For 2 hours, Intra-Procedure (CV) New Bag 11/08/2022 11:07 AM TOP PRINTING PRESS OPERATOR 30 mcg/kg/min 77.9 mL/hr esmoloL (BREVIBLOC) injection 10-200 mg 10-200 mg, intravenous, Administer over 1 Minutes, Titrated, Starting on Brenna 11/08/22 at 1100, For 2 hours, Intra-Procedure (CV) New Bag 11/08/2022 11:11 AM TOP PRINTING PRESS OPERATOR 60 mg perflutren protein-a (OPTISON) 3 mL in sodium chloride 0.9% 8 mL syringe 1-8 mL, intravenous, Once in imaging, contrast, Starting on Brenna 11/08/22 at 1030, For 1 dose, Intra-Procedure (CV) Contrast Given 11/08/2022 11:06 AM TOP PRINTING PRESS OPERATOR 5 mL documented in this encounter Care Teams Gasoline Locomotive Crane Operator Relationship Specialty Start Date End Date Gerardo Shah MD PCP - General Internal Medicine 09/30/18 Suzette Strickland MD [address] [facility] [address] [place] [address] Referring Physician Nephrology 02/15/20 Rita Tapia, RN [address] [place] [address] Registered Nurse Spinning Supervisor 02/15/20 documented as of this encounter
--- OUTSIDE RECORDS SUMMARY | 2024-10-16 06:37 | XMS_ITS | Encounter Summary ---
Author Organization [facility] Healthcare Address [address] [place] [address] Care Team Providers Care Nurse College Name Role Phone Gerardo Shah MD Primary Care Provider [phone] Suzette Strickland MD Unavailable [phone] Rita Tapia RN Unavailable [phone] Encounter Details Date Type Department Care Team (Latest Contact Info) Description 03/21/2022 10:20 AM CDT Hospital Encounter [address] [address] Discharge Disposition: Discharge to home [...] on file Legal Sex Male 4:54 AM BOTTLE SELECTOR Gender Identity Not on file Sexual Orientation [...] KIDNEY ESRD (end stage renal disease) ([facility]) documented as of this encounter Visit Diagnoses Not on filedocumented in this encounter Care Teams Nurse College Relationship Specialty Start Date End Date Gerardo Shah MD PCP - General Internal Medicine 09/30/18 Suzette Strickland MD [facility] [address] [place] [address] Referring Physician Nephrology 02/15/20 Rita Tapia, RN [address] [place] [address] Registered Nurse Profile Shaper Operator 02/15/20 documented as of this encounter
--- OUTSIDE RECORDS SUMMARY | 2024-10-16 06:37 | XMS_ITS | Encounter Summary ---
Author Organization [facility] Healthcare Address [address] [place] [address] Care Team Providers Care Template Clerk Name Role Phone Gerardo Shah MD Primary Care Provider [phone] Suzette Strickland MD Unavailable [phone] Rita Tapia RN Unavailable [phone] Encounter Details Date Type Department Care Team (Late st Contact Info) Description 04/06/2022 Orders Only [facility] Transplant Kidney [address] [address] Mailstop [id number] [place], [place] [id number] Rita Tapia, RN [address] [place], [place] [id number] ESRD (end stage renal disease) (CMS/HCC) ([facility]) (Primary Dx) Social History Tobacco Use Types Packs/Day Years Used Date Smoking Tobacco: Former Cigarettes 1.5 40 0 04/11/1978 - 2017 Smokeless Tobacco: Never Alcohol Use Standard Drinks/Week Comments Yes 1 (1 standard drink = 0.6 oz pur e alcohol) OCC Sex and Gender Information Value Date Recorded Sex Assigned at Not on file Legal Sex Male 4:54 AM REGIONAL MARKETING DIRECTOR Gender Identity Not on file Sexual Orientation Straight 05/03/2020 10 :36 AM CDT documented as of this encounter Plan of Treatment Scheduled Orders Name Type Priority Associated Diagnoses Orde r Schedule Collection Task for HLA Antibody Screen Lab Routine ESRD (end stage renal disease) ([facility]) (HCC) 12 Occurrences starting 04/06/2022 until 04/03/2025, 1 completed Scheduled Procedures Name Priority Associated Diagnoses Date/Ti me TRANSPLANT KIDNEY ESRD (end stage renal disease) ([facility]) documented as of this encounter Results * HLA Antibody Screen by PRA or SAB per Schedule (Class I and Class II) (10/09/2023 6:25 AM REGIONAL MARKETING DIRECTOR) Blood specimen (specimen) 10/09/2023 6:25 AM REGIONAL MARKETING DIRECTOR Narrative [facility] - REGIONAL MARKETING DIRECTOR Sample received in lab and stored. ??No testing performed at this time. Tatianna Moyer MD LAB BLOOD ORDERABL ES Final Result Performing Organization Address [facility] Co de Phone Number [facility] * HLA Antibody Screen by PRA or SAB per Schedule (Class I and Class II) (05/06/2023 10:00 AM CDT) Blood specimen (specimen) 05/06/2023 10:00 AM CDT Narrative HISTOTR[facility] - REGIONAL MARKETING DIRECTOR Sample received in lab. ??Single Antigen Antibody Screen ordered. Tatianna Moyer MD LAB BLOOD ORDERABL ES Final Result Performing Organization Address [facility] Co de Phone Number [facility] * HLA Antibody Screen by PRA or SAB per Schedule (Class I and Class II) (01/09/2023 6:00 AM CDT) Blood specimen (specimen) 01/09/2023 6:00 AM CDT Narrative H[facility] - REGIONAL MARKETING DIRECTOR Sample received in lab and stored. ??No testing performed at this time. Tatianna Moyer MD LAB BLOOD ORDERABL ES Final Result Performing Organization Address [facility] Co de Phone Number [facility] * HLA Antibody Screen by PRA or SAB per Schedule (Class I and Class II) (12/12/2022 10:00 AM REGIONAL MARKETING DIRECTOR) Blood specimen (specimen) 12/12/2022 10:00 AM REGIONAL MARKETING DIRECTOR Narrative [facility] - REGIONAL MARKETING DIRECTOR Sample received in lab and stored. ??No testing performed at this time. Result [facility] Tatianna Moyer MD LAB BLOOD ORDERABL ES Final Result Performing Organization Address [facility] de Phone Number [facility] * HLA Antibody Screen by PRA or SAB per Schedule (Class I and Class II) (10/31/2022 10:00 AM REGIONAL MARKETING DIRECTOR) Blood specimen (specimen) 10/31/2022 10:00 AM REGIONAL MARKETING DIRECTOR Narrative HISTOTRAC - REGIONAL MARKETING DIRECTOR Sample received in lab. ??Single Antigen Antibody Screen and PRA Screen ordered. Result [facility] Tatianna Moyer MD LAB BLOOD ORDERABL ES Final Result Performing Organization Address [facility] de Phone Number H[facility] * HLA Antibody Screen by PRA or SAB per Schedule (Class I and Class II) (10/03/2022 10:00 AM REGIONAL MARKETING DIRECTOR) Blood specimen (specimen) 10/03/2022 10:00 AM REGIONAL MARKETING DIRECTOR Narrative H[facility] - REGIONAL MARKETING DIRECTOR Sample received in lab. ??Single Antigen Antibody Screen and PRA Screen ordered. Tatianna Moyer MD LAB BLOOD ORDERABL ES Final Result Performing Organization Address [facility] de Phone Number [facility] * HLA Antibody Screen by PRA or SAB per Schedule (Class I and Class II) (08/29/2022 10:00 AM CDT) Blood specimen (specimen) 08/29/2022 10:00 AM CDT Narrative H[facility]OTR[facility] - REGIONAL MARKETING DIRECTOR Sample received in lab and stored. ??No testing performed at this time. Tatianna Moyer MD LAB BLOOD ORDERABL ES Final Result Performing Organization Address [facility] Co de Phone Number [facility] * HLA Antibody Screen by PRA or SAB per Schedule (Class I and Class II) (08/15/2022 10:00 AM CDT) Blood specimen (specimen) 08/15/2022 10:00 AM CDT Narrative HISTOTRAC - REGIONAL MARKETING DIRECTOR Sample received in lab and stored. ??No testing performed at this time. Tatianna Moyer MD LAB BLOOD ORDERABL ES Final Result Performing Organization Address [facility] de Phone Number [facility] * HLA Antibody Screen by PRA or SAB per Schedule (Class I and Class II) (07/11/2022 10:00 AM CDT) Blood specimen (specimen) 07/11/2022 10:00 AM CDT Narrative [facility] - REGIONAL MARKETING DIRECTOR Sample received in lab. ??Single Antigen Antibody Screen ordered. Tatianna Moyer MD LAB BLOOD ORDERABL ES Final Result Performing Organization Address [facility] de Phone Number [facility] * HLA Antibody Screen by PRA or SAB per Schedule (Class I and Class II) (06/06/2022 10:00 AM CDT) Blood specimen (specimen) 06/06/2022 10:00 AM CDT Narrative HISTOTRAC - REGIONAL MARKETING DIRECTOR Sample received in lab and stored. ??No testing performed at this time. Tatianna Moyer MD LAB BLOOD ORDERABL ES Final Result Performing Organization Address [facility] de Phone Number [facility] * HLA Antibody Screen by PRA or SAB per Schedule (Class I and Class II) (05/02/2022 10:00 AM CDT) Blood specimen (specimen) 05/02/2022 10:00 AM CDT Narrative HISTOTRAC - REGIONAL MARKETING DIRECTOR Sample received in lab. ??Single Antigen Antibody Screen ordered. Tatianna Moyer MD LAB BLOOD ORDERABL ES Final Result [facility] * Collection Task for HLA Antibody Screen (04/04/2022 11:00 AM CDT) HLA Antibody Screen by PRA Received [facility] Blood 04/04/2022 11:0 0 AM CDT 04/06/2022 3:18 PM CDT Tatianna Moyer MD LAB BLOOD ORDERABL ES Final Result Performing Organization Address [facility] de Phone Number [facility] [place] [address] * HLA Antibody Screen by PRA or SAB per Schedule (Class I and Class II) (04/04/2022 11:00 AM CDT) Blood specimen (specimen) 04/04/2022 11:00 AM CDT Narrative HISTOTR[facility] - REGIONAL MARKETING DIRECTOR Sample received in lab and stored. ??No [...] kidney disease on chronic dialysis (CMS/HCC) (HCC) ESRD (end stage renal disease) (CMS/HCC) (HCC) End stage renal disease ESRD (end stage renal disease) (CMS/HCC) (HCC) End stage renal disease 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) (HCC) ESRD (end stage renal disease) (CMS/HCC) (HCC) End stage renal disease ESRD (end stage renal disease) (CMS/HCC) (HCC) End stage renal disease ESRD (end stage renal disease) (CMS/HCC) (HCC) End stage renal disease documented in this encounter Care Teams Template Clerk Relationship Specialty Start Date End Date Gerardo Shah MD PCP - General Internal Medicine 09/30/18 Suzette Strickland MD [address] [facility] [address] [place] [address] Referring Physician Nephrology 02/15/20 Rita Tapia, RN [address] [place] [address] Registered Nurse News Videographer 02/15/20 documented as of this encounter
--- OUTSIDE RECORDS SUMMARY | 2024-10-16 06:37 | XMS_ITS | Encounter Summary ---
Author Organization [facility] Healthcare Address [address] [place] [address] Care Team Providers Care Manager Product Design Name Role Phone Gerardo Shah MD Primary Care Provider [phone] Suzette Strickland MD Unavailable [phone] Rita Tapia RN Unavailable [phone] Reason for Visit * Reason Onset Date Comments Waitlist Maintenance 10/11/2022 Encounter Details Date Type Department Care Team (Late st Contact Info) Description 10/11/2022 Telephone [facility] Transplant Kidney [address] [address] Mailstop [phone] [place] [address] Rhoda Morejon Waitlist Maintenance Social History Tobacco Use Types Packs/Day Years Used Date Smoking Tobacco: Former Cigarettes 1.5 40 0 04/11/1978 - 2017 Smokeless Tobacco: Never Alcohol Use Standard Drinks/Week Comments Yes 1 (1 standard drink = 0.6 oz pur e alcohol) OCC Sex and Gender Information Value Date Recorded Sex Assigned at Not on file Legal Sex Male 4:54 AM PHARMACOLOGY TEACHER Gender Identity Not on file Sexual Orientation Straight 05/03/2020 10 :36 AM CDT documented as of this encounter Miscellaneous Notes * Telephone Encounter - Rhoda Morejon - 10/15/2022 5:47 PM CST Spoke to patient on the phone. Encouraged patient to contact nurse with any questions. Reviewed the following: Demographics (email, address, phone numbers): No changes Patient contacts: No changes Insurance carriers: Confirmed [employer] as primary and Medicare A&B as secondary insurance I reminded patient of the importance of notifying the transplant center right away of any insurancechanges. Employment status and financial situation: No changes Dialysis: Patient reported he is now going to Dialysis at 6 am. Weight: Patient self reported being 185 pounds. BMI 23.1 Medical issues (hospitalizations, medical conditions, illnesses, infections, procedures, open wounds, new diagnoses, or positive COVID results): None reported COVID Vaccinations: None reported Social Issues/Questions: None reported MACOLOGY TEACHER documented in this encounter Plan of Treatment Scheduled Procedures Name Priority Associated Diagnoses Date/Ti me TRANSPLANT KIDNEY ESRD (end stage renal disease) ([facility]) documented as of this encounter Visit Diagnoses Not on filedocumented in this encounter Care Teams Manager Product Design Relationship Specialty Start Date End Date Gerardo Shah MD PCP - General Internal Medicine 09/30/18 Suzette Strickland MD [address] [facility] [address] [place] [address] Referring Physician Nephrology 02/15/20 Rita Tapia, RN [address] [place] [address] Registered Nurse Basketball Coach 02/15/20 documented as of this encounter
--- OUTSIDE RECORDS SUMMARY | 2024-10-16 06:38 | XMS_ITS | Encounter Summary ---
Author Organization [facility] Healthcare Address [address] [place] [address] Care Team Providers Care Prep Manager Name Role Phone Gerardo Shah MD Primary Care Provider [phone] Suzette Strickland MD Unavailable [phone] Rita Tapia RN Unavailable [phone] Encounter Details Date Type Department Care Team (Late st Contact Info) Description 09/19/2021 11:50 AM SOLE SEWER HAND Lab [address] [address] ESRD (end stage renal disease) ([facility]/HCC) ([facility]) Social History Tobacco Use Types Packs/Day Years Used Date Smoking Tobacco: Former Cigarettes 1.5 40 0 04/11/1978 - 2017 Smokeless Tobacco: Never Alcohol Use Standard Drinks/Week Comments Yes 1 (1 standard drink = 0.6 oz pur e alcohol) OCC Sex and Gender Information Value Date Recorded Sex Assigned at Not on file Legal Sex Male 4:54 AM SOLE SEWER HAND Gender Identity Not on file Sexual Orientation Straight 05/03/2020 10 :36 AM CDT documented as of this encounter Plan of Treatment Scheduled Procedures Name Priority Associated Diagnoses Date/Ti me TRANSPLANT KIDNEY ESRD (end stage renal disease) ([facility]) documented as of this encounter Procedures Procedure Name Priority Date/Time Associated Diagnosis Comments HLA ANTIBODY SCREEN BY PRA OR SAB PER SCHEDULE (CLASS I AND CLASS II) Routine 09/15/2021 11:00 AM SOLE SEWER HAND ESRD (end stage renal disease) (CMS/HCC) (HCC) HLA ANTIBODY SCREEN BY PRA Routine 09/15/2021 11:00 AM SOLE SEWER HAND ESRD (end stage renal disease) (CMS/HCC) (HCC) documented in this encounter Results * Collection Task for HLA Antibody Screen (09/15/2021 11:00 AM SOLE SEWER HAND) HLA Antibody Screen by PRA [facility] Blood 09/15/2021 11:0 0 AM SOLE SEWER HAND 09/19/2021 12:15 PM SOLE SEWER HAND Tatianna Moyer MD LAB BLOOD ORDERABL ES Final Result [facility] [place] [address] * HLA Antibody Screen by PRA or SAB per Schedule (Class I and Class II) (09/15/2021 11:00 AM SOLE SEWER HAND) Blood specimen (specimen) 09/15/2021 11:00 AM SOLE SEWER HAND Narrative [facility] - SOLE SEWER HAND Sample received in lab and stored. ??No testing performed at this time. Tatianna Moyer MD LAB BLOOD ORDERABL ES Final Result [facility] documented in this encounter Visit Diagnoses Diagnosis ESRD (end stage renal disease) (CMS/HCC) (HCC) End stage renal disease documented in this encounter Care Teams Prep Manager Relationship Specialty Start Date End Date Gerardo Shah MD PCP - General Internal Medicine 09/30/18 Suzette Strickland MD [address] [facility] [address] [place] [address] Referring Physician Nephrology 02/15/20 Rita Tapia, RN [address] [place] [address] Registered Nurse Resin Mixer 02/15/20 documented as of this encounter
--- OUTSIDE RECORDS SUMMARY | 2024-10-16 06:38 | XMS_ITS | Encounter Summary ---
Author Organization [facility] Healthcare Address [address] [place] [address] Care Team Providers Care Electronics Detail Draftsperson Name Role Phone Gerardo Shah MD Primary Care Provider [phone] Suzette Strickland MD Unavailable [phone] Rita Tapia RN Unavailable [phone] Encounter Details Date Type Department Care Team (Late st Contact Info) Description 01/04/2022 10:05 AM STEAMSHIP AGENT Lab [address] [address] ESRD (end stage renal disease) ([facility] ([facility]) Social History Tobacco Use Types Packs/Day Years Used Date Smoking Tobacco: Former Cigarettes 1.5 40 0 04/11/1978 - 2017 Smokeless Tobacco: Never Alcohol Use Standard Drinks/Week Comments Yes 1 (1 standard drink = 0.6 oz pur e alcohol) OCC Sex and Gender Information Value Date Recorded Sex Assigned at Not on file Legal Sex Male 4:54 AM STEAMSHIP AGENT Gender Identity Not on file Sexual Orientation Straight 05/03/2020 10 :36 AM CDT documented as of this encounter Plan of Treatment Scheduled Procedures Name Priority Associated Diagnoses Date/Ti me TRANSPLANT KIDNEY ESRD (end stage renal disease) ([facility]) documented as of this encounter Procedures Procedure Name Priority Date/Time Associated Diagnosis Comments HLA ANTIBODY SCREEN BY PRA OR SAB PER SCHEDULE (CLASS I AND CLASS II) Routine 01/03/2022 10:00 AM STEAMSHIP AGENT ESRD (end stage renal disease) (CMS/HCC) ([facility]) documented in this encounter Results * HLA Antibody Screen by PRA or SAB per Schedule (Class I and Class II) (01/03/2022 10:00 AM STEAMSHIP AGENT) Blood specimen (specimen) 01/03/2022 10:00 AM STEAMSHIP AGENT Narrative [facility] - STEAMSHIP AGENT Sample received in lab and stored. ??No testing performed at this time. us Tatianna Moyer MD LAB BLOOD ORDERABL ES Final Result [facility] documented in this encounter Visit Diagnoses Diagnosis ESRD (end stage renal disease) (CMS/HCC) ([facility]) End stage renal disease documented in this encounter Care Teams Electronics Detail Draftsperson Relationship Specialty Start Date End Date Gerardo Shah MD PCP - General Internal Medicine 09/30/18 Suzette Strickland MD [address] [facility] [address] [place] [address] Referring Physician Nephrology 02/15/20 Rita Tapia, RN [address] [place], [place] [id number] Registered Nurse Signs And Displays Salesperson 02/15/20 documented as of this encounter
--- OUTSIDE RECORDS SUMMARY | 2024-10-16 06:38 | XMS_ITS | Encounter Summary ---
Author Organization [facility] Healthcare Address [address] [place] [address] Care Team Providers Care Sole Painter Name Role Phone Gerardo Shah MD Primary Care Provider [phone] Suzette Strickland MD Unavailable [phone] Rita Tapia RN Unavailable [phone] Reason for Referral * Diagnostic Imaging (Routine) - Closed Specialty Diagnoses / Procedures Referred By Contac t Referred To Contact Diagnoses 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) (HCC) Procedures XR Orthopantogram Panorex Tatianna Moyer MD [address] [place] [address] Phone: tel: fax: [facility] [address] [place] [address] Referral ID Status Reason Start Date Expiration Date Visits Re quested Visits Authorized [id number] Closed 04/28/2021 05/28/2022 1 1 Reason for Visit * Diagnostic Imaging (Routine) - Closed Specialty Diagnoses / Procedures Referred By Contac t Referred To Contact Diagnoses 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) (HCC) Procedures XR Orthopantogram Panorex Tatianna Moyer MD [address] [place] [address] Phone: tel: fax: [facility] [address] [facility] [address] Referral ID Status Reason Start Date Expiration Date Visits Re quested Visits Authorized [id number] Closed 04/28/2021 05/28/2022 1 1 Encounter Details Date Type Department Care Team (Latest Contact Info) Description 06/08/2021 7:44 AM CDT - 06/08/2021 8:59 AM CDT Hospital Encounter [facility] [address] [place] [address] Tatianna Moyer MD [address] [place] [address] 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) ([facility]) Discharge Disposition: Discharge to [...] on file Legal Sex Male 4:54 AM IRON BENDER Gender Identity Not on file Sexual Orientation [...] ne cream 03/17/2021 amLODIPine (NORVASC) 5 mg tabletIndications: hypertension Take 1 tablet (5 mg total) by mouth every morning 90 tablet 1 12/28/2020 1 metoprolol tartrate (LOPRESSOR) 25 mg immediate release tabletIndications: coronary artery disease,hypertensi on Take 1 tablet (25 mg total) by mouth 2 (two) times a day 180 tablet 1 12/28/2020 1 nitroglycerin (NITROSTAT) 0.[address] [...] KIDNEY ESRD (end stage renal disease) ([facility]) documented as of this encounter Procedures Procedure Name Priority Date/Time Associated Diagnosis Comments XR ORTHOPANTOGRAM/PA NOREX Schedule Routine, Read Routine (OP Routine) 06/08/2021 8:30 AM CDT Stage 5 chronic kidney disease on chronic dialysis ([facility]) ([facility]) documented in this encounter Results * XR Orthopantogram Panorex (06/08/2021 8:30 AM CDT) Anatomical Region Laterality Modality Head and Neck N/A Panoramic X-Ray 06/08/2021 9:31 AM CDT Impressions 06/08/2021 9:36 AM CDT 1. No large caries or periapical lucencies. Dictated by: Shannon Thapa MD The radiology attending physician has personally reviewed this study, and had reviewed and/or edited this written report and agrees with it. Electronically signed by: Ivan Adamson M.D. Narrative 06/08/2021 9:36 AM CDT EXAMINATION: XR ORTHOPANTOGRAM/PANOREX HISTORY: ??T transplant evaluation. FINDINGS: 2 view orthopantogram is submitted for interpretation with comparison to 04/04/2020. The maxillary ridge is edentulous. There is interval extraction of the right mandibular second molar. Multiple dental restorations are unchanged. There are no large caries or periapical lucencies. Procedure Note Ivan Adamson MD - 06/08/2021 EXAMINATION: XR ORTHOPANTOGRAM/PANOREX HISTORY: T transplant evaluation. FINDINGS: 2 view orthopantogram is submitted for interpretation with comparison to 04/04/2020. The maxillary ridge is edentulous. There is interval extraction of the right mandibular second molar. Multiple dental restorations are unchanged. There are no large caries or periapical lucencies. IMPRESSION: 1. No large caries or periapical lucencies. Dictated by: Shannon Thapa MD The radiology attending physician has personally reviewed this study, and had reviewed and/or edited this written report and agrees with it. Electronically signed by: Ivan Adamson M.D. [facility] Randall Moyer MD IMG XR PROCEDURES Final Result documented in this encounter Visit Diagnoses Diagnosis 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) ([facility]) documented in this encounter Care Teams Sole Painter Relationship Specialty Start Date End Date Gerardo Shah MD PCP - General Internal Medicine 09/30/18 Suzette Strickland MD [address] [facility] [address] [place] [address] Referring Physician Nephrology 02/15/20 Rita Tapia, RN [address] [place] [address] Registered Nurse Web Page Designer 02/15/20 documented as of this encounter
--- OUTSIDE RECORDS SUMMARY | 2024-10-16 06:38 | XMS_ITS | Encounter Summary ---
Author Organization [facility] Address [address] [place] [address] Phone Care Team Providers Care Helpdesk Manager Name Role Phone Gerardo Shah MD Primary Care Provider [phone] Suzette Strickland MD Unavailable [phone] Rita Tapia RN Unavailable [phone] Encounter Details Date Type Department Care Team (Late st Contact Info) Description 02/06/2021 Orders Only [facility] Nephrology [address] [facility] 5th [place] [address] [place] [address] Tatianna Moyer MD [address] [place] [address] Social History Tobacco Use Types Packs/Day Years Used Date Smoking Tobacco: Former Cigarettes 1.5 40 0 04/11/1978 - 2017 Smokeless Tobacco: Never Alcohol Use Standard Drinks/Week Comments Yes 1 (1 standard drink = 0.6 oz pur e alcohol) OCC Sex and Gender Information Value Date Recorded Sex Assigned at Not on file Legal Sex Male 4:54 AM ENGINE MANAGER Gender Identity Not on file Sexual Orientation Straight 05/03/2020 10 :36 AM CDT documented as of this encounter Plan of Treatment Scheduled Procedures Name Priority Associated Diagnoses Date/Ti me TRANSPLANT KIDNEY ESRD (end stage renal disease) ([facility]) documented as of this encounter Procedures Procedure Name Priority Date/Time Associated Diagnosis Comments HLA ANTIBODY SCREEN - SAB (CLASS I AND CLASS II) Routine 02/06/2021 10:00 AM CDT documented in this encounter Results * HLA Antibody Screen - SAB (Class I and Class II) (02/06/2021 10:00 AM CDT) Class I Treatment EDTA HISTOTRAC Class I Dilution 1:1 HISTOTRAC Class I Tested Date 02/07/2021 HISTOTRAC Class I Result Negative HISTOTRAC Class I CPRA 0 HISTOTRAC Class I Low Risk B37 HISTOTRAC Class II Treatment EDTA HISTOTRAC Class II Dilution 1:1 HISTOTRAC Class II Tested Date 02/07/2021 HISTOTRAC Class II Result Negative HISTOTRAC Class II CPRA 0 HISTOTRAC Class II Low Risk DQ7; DP1 HISTOTRAC 02/06/2021 10:0 0 AM CDT 02/08/2021 6:45 AM CDT Narrative HISTOTRAC - 02/08/2021 6:45 AM CDT Single-antigen HLA antibody screen is performed on serum samples using a method developed and validated by the [facility] HLA laboratory based on an FDA-approved IVD kit (LABScreen Single-Antigen, [employer], [place], [place]). All patient serum samples are pretreated with EDTA before the screen to prevent complement interference. Additional serum treatments, such as adsorption and DTT treatment, may be performed as indicated. ??Interpretive comments: Low risk: MFI 5532-4951. Moderate risk: MFI 5266-2051. Increased risk: MFI >/= 5000. The presence [...] antigens to avoid. Testing performed at the [facility], [address] [place] [address], [place], [address]. CLIA # [id number]. Gracie Rubi M.D., Ph.D., Associate HLA Etl Bi Developer Harman Flores M.D., Ph.D., HLA Etl Bi Developer Stan Patel M.D., Mailroom Messenger, [facility] Current methodology and interpretive comments last revised on 01/05/2020. Tatianna Moyer MD LAB BLOOD ORDERABL ES Final Result HISTOTRAC documented in this encounter Visit Diagnoses Not on filedocumented in this encounter Care Teams Helpdesk Manager Relationship Specialty Start Date End Date Gerardo Shah MD PCP - General Internal Medicine 09/30/18 Suzette Strickland MD [address] [facility] [address] [place] [address] Referring Physician Nephrology 02/15/20 Rita Tapia, RN [address] [place] [address] Registered Nurse Iron Setter 02/15/20 documented as of this encounter
--- OUTSIDE RECORDS SUMMARY | 2024-10-16 06:38 | XMS_ITS | Encounter Summary ---
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) (HCC) Procedures Six Minute Walk - Tatianna Smith MD [address] [place] [address] Phone: tel: fax: [facility] [address] [place] [address] Referral ID Status Reason Start Date Expiration Date Visits Re quested Visits Authorized [id number] Closed 04/28/2021 05/28/2022 1 1 * Cardiology (Routine) - Closed Specialty Diagnoses / Procedures Referred By Contac t Referred To Contact Diagnoses 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) (HCC) Procedures Stress Echo Pharmacologic Tatianna Smith MD [address] [place] [address] Phone: tel: fax: [address] [phone] Referral ID Status Reason Start Date Expiration Date Visits Re quested Visits Authorized [id number] Closed 06/05/2021 06/27/2021 1 1 * Cardiology (Routine) - Closed Specialty Diagnoses / Procedures Referred By Contac t Referred To Contact Diagnoses 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) (HCC) Procedures ECG 12 lead Tatianna Smith MD [address] [place] [address] Phone: tel: fax: [address] [phone] Referral ID Status Reason Start Date Expiration Date Visits Re quested Visits Authorized [id number] Closed 04/28/2021 05/28/2022 1 1 * Diagnostic Imaging (Routine) - Closed Specialty Diagnoses / Procedures Referred By Contac t Referred To Contact Diagnoses 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) (HCC) Procedures XR Chest Pa Lateral 2 Views Tatianna Smith MD [address] [place] [address] Phone: tel: fax: [address] [phone] Referral ID Status Reason Start Date Expiration Date Visits Re quested Visits Authorized [id number] Closed 04/28/2021 05/28/2022 1 1 * Diagnostic Imaging (Routine) - Closed Specialty Diagnoses / Procedures Referred By Contac t Referred To Contact Diagnoses 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) (HCC) Procedures XR Orthopantogram Panorex Tatianna Smith MD [address] [place] [address] Phone: tel: fax: [facility] [address] [facility] [place] [address] Referral ID Status Reason Start Date Expiration Date Visits Re quested Visits Authorized [id number] Closed 04/28/2021 05/28/2022 1 1 Encounter Details Date Type Department Care Team (Late st Contact Info) Description 04/28/2021 Telephone 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 Please schedule patient any Saturday or and email schedule to [email or web address] He needs: Labs CXR Panorex DSE EKG 6 minute walk documented in this encounter Plan of Treatment Scheduled Procedures Name Priority Associated Diagnoses Date/Ti me TRANSPLANT KIDNEY ESRD (end stage renal disease) ([facility]) documented as of this encounter Procedures Procedure Name Priority Date/Time Associated Diagnosis Comments SIX MINUTE WALK Routine 06/08/2021 9:10 AM CDT 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) (HCC) documented in this encounter Results * STRESS ECHO PHARMACOLOGIC W DOPPLER/CF W CONTRAST (06/08/2021 12:04 PM CDT) Anatomical Region Laterality Modality Ultrasound 06/08/2021 10:3 0 AM CDT Narrative 06/08/2021 12:19 PM CDT Patient name: Abel Browne Date of test: 06/08/2021 Hospital #: [id number] ?Location: [facility] Interpreted by: Ezio Garcia MD Diesel Lube Tech: Radha Garza RDCS RN: Destiny Griffith RN Reason for Test: Renal Tx Evaluation Study quality: Technically good Referring Physician: TATIANNA SMITH MD Contrast Agent: 1.9 ml Optison Administered, (1.1 ml wasted). BASELINE STUDY: Wall Motion Scoring (1=Normal 2=Hypo 3=Akinetic 4=Dyskin./Aneurysm 0=Not visualized) Parasternal Long [place]:MAS=1 BAS=1 MIL=1 KENDRA=1 Parasternal Short [place]:MAS=1 MIS=1 MD=1 MIL=1 MAL=1 MA=1 Apical 4 Chambers:=1 MIS=1 BIS=1 BAL=1 MAL=1 AL=1 AC=1 Apical 2 Chambers:AI=1 MD=1 BI=1 BA=1 MA=1 AA=1 AC=1 Ejection Fraction: 70% LV Global Strain: -21.8% LV Global Function: Normal left ventricular systolic function. Baseline Echo Comments: Normal LV+RV morphology and function, No wall abnormalities. Doppler/CF Comments: No MS, MR, , AR, TS, TR, PS, [place], PA systolic pressure is 20 mmHg. Baseline HR: 55 Baseline BP: 104/55 Conduction Defects: None Resting ECG Comments: Normal sinus rhythm, NSSTTWA Medications: metoprolol norvasc asa bumex pepcid Meds held: metoprolol POST DOBUTAMINE STUDY: Wall Motion Scoring (1=Normal 2=Hypo 3=Akinetic 4=Dyskin./Aneurysm 0=Not visualized) Parasternal Long [place]:MAS=1 BAS=1 MIL=1 KENDRA=1 Parasternal Short [place]:MAS=1 MIS=1 MD=1 MIL=1 MAL=1 MA=1 Apical 4 Chambers:=1 MIS=1 BIS=1 BAL=1 MAL=1 AL=1 AC=1 Apical 2 Chambers:AI=1 MD=1 BI=1 BA=1 MA=1 AA=1 AC=1 Intravenous dobutamine was infused to a maximal dose ??40 micro-g/Kg/min. Atropine: 0.3 mg. ?Other Med: Peak HR: 157 Peak BP: 62/48 Post-Exercise Comments: Marked increase in the LV and RV contractility and no segmental wall motion abnormalities. Test terminated: ??Target heart rate achieved, Hypotension Stress ECG Comments: ??No ischemic changes or arrhythmia. CONTRAST ENHANCEMENT WAS EMPLOYED after initial imaging due to sub-optimal quality related to co-morbidity defined by patient's body habitus. Impression: 1) Maximal Dobutamine Stress Echocardiogram NEGATIVE for myocardial ischemia. Confirmed on ??06/08/2021 - 12:19:52 by Ezio Garcia MD By signing this report, the attending cooling tower technician certifies that he or she has personally supervised and interpreted the echocardiogram and has reviewed and or edited and agrees with the written comments contained within the report. Procedure Note Ezio Garcia MD - 06/08/2021 Patient name: Abel Browne Date of test: 06/08/2021 Hospital #: [id number] Location: [facility] Interpreted by: Ezio Garcia MD Diesel Lube Tech: Radha Garza RDCS RN: Destiny Griffith RN Reason for Test: Renal Tx Evaluation Study quality: Technically good Referring Physician: TATIANNA SMITH MD Contrast Agent: 1.9 ml Optison Administered, (1.1 ml wasted). BASELINE STUDY: Wall Motion Scoring (1=Normal 2=Hypo 3=Akinetic 4=Dyskin./Aneurysm 0=Not visualized) Parasternal Long [place]:MAS=1 BAS=1 MIL=1 KENDRA=1 Parasternal Short [place]:MAS=1 MIS=1 MD=1 MIL=1 MAL=1 MA=1 Apical 4 Chambers:=1 MIS=1 BIS=1 BAL=1 MAL=1 AL=1 AC=1 Apical 2 Chambers:AI=1 MD=1 BI=1 BA=1 MA=1 AA=1 AC=1 Ejection Fraction: 70% LV Global Strain: -21.8% LV Global Function: Normal left ventricular systolic function. Baseline Echo Comments: Normal LV+RV morphology and function, No wall abnormalities. Doppler/CF Comments: No MS, MR, , AR, TS, TR, PS, MO, PA systolic pressure is 20 mmHg. Baseline HR: 55 Baseline BP: 104/55 Conduction Defects: None Resting ECG Comments: Normal sinus rhythm, NSSTTWA Medications: metoprolol norvasc asa bumex pepcid Meds held: metoprolol POST DOBUTAMINE STUDY: Wall Motion Scoring (1=Normal 2=Hypo 3=Akinetic 4=Dyskin./Aneurysm 0=Not visualized) Parasternal Long [place]:MAS=1 BAS=1 MIL=1 KENDRA=1 Parasternal Short [place]:MAS=1 MIS=1 MD=1 MIL=1 MAL=1 MA=1 Apical 4 Chambers:=1 MIS=1 BIS=1 BAL=1 MAL=1 AL=1 AC=1 Apical 2 Chambers:AI=1 MD=1 BI=1 BA=1 MA=1 AA=1 AC=1 Intravenous dobutamine was infused to a maximal dose 40 micro-g/Kg/min. Atropine: 0.3 mg. Other Med: Peak HR: 157 Peak BP: 62/48 Post-Exercise Comments: Marked increase in the LV and RV contractility and no segmental wall motion abnormalities. Test terminated: Target heart rate achieved, Hypotension Stress ECG Comments: No ischemic changes or arrhythmia. CONTRAST ENHANCEMENT WAS EMPLOYED after initial imaging due to sub-optimal quality related to co-morbidity defined by patient's body habitus. Impression: 1) Maximal Dobutamine Stress Echocardiogram NEGATIVE for myocardial ischemia. Confirmed on 06/08/2021 - 12:19:52 by Ezio Garcia MD By signing this report, the attending cooling tower technician certifies that he or she has personally supervised and interpreted the echocardiogram and has reviewed and or edited and agrees with the written comments contained within the report. us Tatianna Smith MD CV ECHO PROCEDURES Final Result * Six Minute Walk - (06/08/2021 9:10 AM CDT) Anatomical Region Laterality Modality PFT Narrative 06/08/2021 1:11 PM CDT Margaret Mcguire, EDUCATIONAL THERAPIST on 06/08/2021 11:53 AM 6 MINUTE WALK RESULTS Name: Abel Browne : 1960 DOS: 06/08/2021 Diagnosis: Pre- Kidney eval EDUCATIONAL THERAPIST performed walk: Margaret Mcguire Rest: 1 min 0 LPM SPO2: 98 % HR: 63 ALISHA: 0 BP: 120/66 Rest: 2 min ??LPM SPO2: ??% HR: ? Walk: 1 min 0 LPM SPO2: 96 % HR: 76 ? Walk: 2 min 0 LPM SPO2: 93 % HR: 94 ? Walk: 3 min 0 LPM SPO2: 100 % HR: 101 ALISHA: 0 ?? Walk: 4 min 0 LPM SPO2: 97 % HR: 99 ? Walk: 5 min 0 LPM SPO2: 98 % HR: 99 ? Walk: 6 min 0 LPM SPO2: 98 % HR: 105 ALISHA: 0 BP: 141/62 ? Post: 1 min ??LPM SPO2: ??% HR: ? Post: 2 min 0 LPM SPO2: 98 % HR: 70 ALISHA: 0 ?? Walking SpO2 ranged from: 93-100 Walking HR ranged from: 76-105 Number of feet walked: ??1703 Number of rest breaks: ??0 O2 Recommendation Resting: ?? 0 LPM ?? Midwalk: ??0 LPM ?? Exercise: 0 LPM ? Patient's current exercise program: He walk 4-5x week for 5 miles per day. At rest breathing room air oxygen level is adequate. Heart rate increases normally with exercise. With exercise oxygen level is stable. Oxygen prescription: RA rest, RA exercise. us Tatianna Smith MD RESPIRATORY CARE O RDERABLES Final Result * XR Orthopantogram Panorex (06/08/2021 8:30 AM [...] it. Electronically signed by: Ivan Adamson M.D. us Tatianna Smith MD IMG XR PROCEDURES Final Result * PSA screen (06/08/2021 8:05 AM CDT) PSA-Total 1.20 <=5.40 ng/mL [facility] Comment: Interpretive Data ?AGE ? SEX ?REFERENCE INTERVAL 0 minutes-150 years ?Female ?None 0 minutes-49 years ? Male ?None ? 50-59 years ? Male ?0-3.90 ? 60-69 years ? Male ?0-5.40 ? 70-79 years ? Male ?0-6.20 ? 80-150 years ?Male ?0-6.20 Current interpretive data last revised 2018. Blood specimen (specimen) 06/08/2021 8:05 AM CDT 06/08/2021 8:28 AM CDT us Tatianna Smith MD LAB BLOOD ORDERABL ES Final Result [facility] Department [place] [address] * (ABNORMAL) PTH (06/08/2021 8:05 AM CDT) PTH 148(H) 15 - 65 pg/mL [facility] Blood specimen (specimen) 06/08/2021 8:05 AM CDT 06/08/2021 8:28 AM CDT Tatianna Smith MD LAB BLOOD ORDERABL ES Final Result Performing Organization Address [facility] de Phone Number [facility] Department [place] [address] * Phosphorus (06/08/2021 8:05 AM CDT) Pathologist [facility] Phosphorus, pl 3.8 2.3 - 4.5 mg/dL [facility] Blood specimen (specimen) 06/08/2021 8:05 AM CDT 06/08/2021 8:28 AM CDT Tatianna Smith MD LAB BLOOD ORDERABL ES Final Result Performing Organization Address [facility] de Phone Number [facility] [place] [address] * Hepatitis B core antibody, total (06/08/2021 8:05 AM CDT) [facility] Hep B core IgG/IgM Nonreactive Nonreactive [facility] Blood specimen (specimen) 06/08/2021 8:05 AM CDT 06/08/2021 8:27 AM CDT Result [facility] Tatianna Smith MD LAB MICROB IOLOGY - GENERAL ORDERABLES Edited Result - Final Performing Organization Address [facility] Co de Phone Number [facility] [place] [address] * Hepatitis C antibody (06/08/2021 8:05 AM CDT) [facility] Hep C Ab Nonreactive Nonreactive [facility] Comment:Antibodies to HCV no t detected. Does NOT exclude the possibility of recent exposure to HCV. Blood specimen (specimen) 06/08/2021 8:05 AM CDT 06/08/2021 8:27 AM CDT Tatianna Smith MD LAB MICROB IOLOGY - GENERAL ORDERABLES Edited Result - Final Performing Organization Address [facility] Co de Phone Number [facility] [place] [address] * Hepatitis B Surface Antigen (06/08/2021 8:05 AM CDT) HepBsAg Nonreactive Nonreactive [facility] Blood specimen (specimen) 06/08/2021 8:05 AM CDT 06/08/2021 8:27 AM CDT Tatianna Smith MD LAB MICROB IOLOGY - GENERAL ORDERABLES Edited Result - Final Performing Organization Address [facility] de Phone Number [facility] Department [place] [address] * Hepatitis B surface antibody (immune status) (06/08/2021 8:05 AM CDT) Pathologist [facility] HBsAb (immune status) Reactive [facility] Comment: Interpretive Data Nonreactive: This result is consistent with a lack of immunity to Hepatitis B Virus when used in the setting of routine screening. Equivocal: The immune status of the individual should be further assessed, if appropriate, after consideration of clinical status, risk factors, and additional diagnostic information. Reactive: This result is consistent with immunity to Hepatitis B Virus when used in the setting of routine screening. Current interpretive data was last revised on 20. HBsAb (immune status) index 13.5 mIUnits/m L [facility] Blood specimen (specimen) 06/08/2021 8:05 AM CDT 06/08/2021 8:27 AM CDT Tatianna Smith MD LAB MICROBIOLOGY - GENERAL ORDERABLES Final Result Performing Organization Address [facility] Co de Phone Number [facility] Department [place] [address] * HIV 1/2 Antibody plus p24 Antigen (06/08/2021 8:05 AM CDT) [facility] HIV 1/2 ab + p24 ag Nonreactive Nonreactive [facility] Comment: Nonreactive for HIV-1 antigen and HIV-1/HIV-2 antibodies. No laboratory evidence of HIV infection. If acute HIV infection is suspected, consider testing for HIV-1 RNA. Blood specimen (specimen) 06/08/2021 8:05 AM CDT 06/08/2021 8:28 AM CDT Tatianna Smith MD LAB MICROBIOLOGY - GENERAL ORDERABLES Final Result [facility] [place] [address] * (ABNORMAL) Comprehensive metabolic panel (06/08/2021 8:05 AM CDT) [facility] Sodium 143 135 - 145 mmol/L [facility] Potassium, pl 4.7 3.3 - 4.9 mmol/L [facility] Chloride 100 97 - 110 mmol/L [facility] CO2 32 22 - 32 mmol/L [facility] Anion gap 11 2 - 15 mmol/L [facility] BUN 22 8 - 25 mg/dL [facility] Creatinine 4.92(H) 0.80 - 1.30 mg/dL [facility] Glucose 89 70 - 199 mg/dL [facility] Comment: Interpretive Data Fasting glucose >/= [...] interpretive data was last revised 2017. Calcium 9.2 8.5 - 10.3 mg/dL [facility] Bilirubin, total 0.5 0.1 - 1.2 mg/dL [facility] Protein, pl 7.4 6.5 - 8.5 g/dL [facility] Albumin 4.7 3.5 - 5.0 g/dL [facility] Alk phos 68 40 - 130 Units/L [facility] ALT 10 7 - 55 Units/L [facility] AST 15 10 - 50 Units/L [facility] Blood specimen (specimen) 06/08/2021 8:05 AM CDT 06/08/2021 8:28 AM CDT us Tatianna Smith MD LAB BLOOD ORDERABL ES Final Result [facility] Department [place] [address] * (ABNORMAL) CBC with auto differential (06/08/2021 8:05 AM CDT) WBC 5.3 3.8 - 9.9 K/cumm [facility] Hgb 11.6(L) 13.0 - 17.5 g/dL [facility] Hct 36.0(L) 38.9 - 50.3 % [facility] Plt 209 150 - 400 K/cumm [facility] MPV 10.6 9.1 - 12.3 fL [facility] RBC 3.63(L) 4.30 - 5.80 M/cumm [facility] MCV 99.2(H) 81.3 - 96.4 fL [facility] MCH 32.0 27.1 - 33.3 pg [facility] MCHC 32.2(L) 32.3 - 35.7 g/dL [facility] RDW CV 13.5 11.1 - 14.9 % [facility] RDW SD 49.5(H) 35.7 - 48.1 fL [facility] NRBC abs 0.00 0.00 - 0.01 K/cumm [facility] Blood specimen (specimen) 06/08/2021 8:05 AM CDT 06/08/2021 8:28 AM CDT Tatianna Smith MD LAB BLOOD ORDERABL ES Final Result Performing Organization Address City/[facility]/ZIP Co de Phone Number [facility] Department [place] [address] * ECG 12 lead (06/08/2021 8:01 AM CDT) Ventricular Rate EKG/Min 58 BPM [facility] Atrial Rate 58 BPM [facility] MO-Interval (MSEC) 144 ms [facility] QRS-Interval (MSEC) 98 ms [facility] QT-Interval (MSEC) 430 ms [facility] QTc 422 ms [facility] P [place] 68 degrees [facility] R [place] 62 degrees [facility] T [place] 60 degrees [facility] Diagnosis Sinus bradycardia Otherwise normal ECG When compared with ECG of 04-APR-2020 08:26, No significant change was found Confirmed by MADY SNOW M.D ([id number]) on 06/08/2021 3:54:26 PM [facility] 06/08/2021 8:01 AM CDT 06/08/2021 3:54 PM CDT Tatianna Smith MD ECG ORDERABLES Fi nal Result Performing Organization Address [facility] Co de Phone Number [facility] * XR Chest Pa Lateral 2 Views (06/08/2021 7:46 AM CDT) Anatomical Region Laterality Modality Body, Chest N/A Computed Radiogr aphy 06/08/2021 8:05 AM CDT Impressions 06/08/2021 8:05 AM CDT Comparison made to examination of 04/04/2020 The lungs are clear without acute pneumonic consolidation or pulmonary edema. There is no pleural effusion or pneumothorax. Heart size and mediastinal contours within normal limits. Electronically signed by: Rubi Patterson M.D. Narrative 06/08/2021 8:05 AM CDT EXAMINATION: 2 view chest radiograph Procedure Note Rubi Patterson MD - 06/08/2021 EXAMINATION: 2 view chest radiograph IMPRESSION: Comparison made to examination of 04/04/2020 The lungs are clear without acute pneumonic consolidation or pulmonary edema. There is no pleural effusion or pneumothorax. Heart size and mediastinal contours within normal limits. Electronically signed by: Rubi Patterson M.D. [facility] Randall Smith MD IMG XR PROCEDURES Final Result documented in this encounter Visit Diagnoses Diagnosis 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) (HCC)- Primary 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) (HCC) 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) (HCC) documented in this encounter Care Teams Religious Educator Relationship Specialty Start Date End Date Gerardo Shah MD PCP - General Internal Medicine 09/30/18 Suzette Strickland MD [address] [facility] [address] [place] [address] Referring Physician Nephrology 02/15/20 Rita Tapia, RN [address] [place] [address] Registered Nurse Lead Application Architect 02/15/20 documented as of this encounter
--- OUTSIDE RECORDS SUMMARY | 2024-10-16 06:38 | XMS_ITS | Encounter Summary ---
Author Organization [facility] Healthcare Address [address] [place] [address] Care Team Providers Care Slot Shift Supervisor Name Role Phone Gerardo Shah MD Primary Care Provider [phone] Suzette Strickland MD Unavailable [phone] Rita Tapia RN Unavailable [phone] Reason for Visit * (Routine) - Closed Specialty Diagnoses / Procedures Referred By Contac t Referred To Contact Diagnoses 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) (HCC) Procedures Six Minute Walk - Tatianna Moyer MD [address] [place] [address] Phone: tel: fax: [address] [phone] Referral ID Status Reason Start Date Expiration Date Visits Re quested Visits Authorized [id number] Closed 04/28/2021 05/28/2022 1 1 Encounter Details Date Type Department Care Team (Latest Contact Info) Description 06/08/2021 9:00 AM CDT - 06/08/2021 10:02 AM CDT Hospital Encounter [facility] [address] 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 Gender Identity Not on file Sexual Orientation [...] TRANSPLANT KIDNEY ESRD (end stage renal disease) ([facility]) documented as of this encounter Procedures Procedure Name Priority Date/Time Associated Diagnosis Comments SIX MINUTE WALK Routine 06/08/2021 9:10 AM CDT 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) (HCC) documented in this encounter Results * Six Minute Walk - (06/08/2021 9:10 AM CDT) Anatomical Region Laterality Modality PFT Narrative 06/08/2021 1:11 PM CDT Margaret Mcguire, ELECTRICAL CAD DESIGNER on 06/08/2021 11:53 AM 6 MINUTE WALK RESULTS Name: Abel Browne : 1960 DOS: 06/08/2021 Diagnosis: Pre- Kidney eval ELECTRICAL CAD DESIGNER performed walk: Magraret Mcguire Rest: 1 min 0 LPM SPO2: [...] stable. Oxygen prescription: RA rest, RA exercise. Tatianna Moyer MD RESPIRATORY CARE O RDERABLES Final Result documented in this encounter Visit Diagnoses Not on filedocumented in this encounter Care Teams Slot Shift Supervisor Relationship Specialty Start Date End Date Gerardo Shah MD PCP - General Internal Medicine 09/30/18 Suzette Strickland MD [address] [facility] [address] [place] [address] Referring Physician Nephrology 02/15/20 Rita Tapia, RN [address] [place] [address] Registered Nurse Rope Cleaner 02/15/20 documented as of this encounter
--- OUTSIDE RECORDS SUMMARY | 2024-10-16 06:38 | XMS_ITS | Encounter Summary ---
Author Organization [facility] Healthcare Address [address] [place] [address] Care Team Providers Care Client Service Administrator Name Role Phone Gerardo Shah MD Primary Care Provider [phone] Suzette Strickland MD Unavailable [phone] Rita Tapia RN Unavailable [phone] Reason for Referral * Cardiology (Routine) - Closed Specialty Diagnoses / Procedures Referred By Contac t Referred To Contact Diagnoses 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) (HCC) Procedures Stress [place] Pharmacologic Enio Smith MD [address] [place] [address] Phone: tel: fax: [facility] [address] [place] [address] Referral ID Status Reason Start Date Expiration Date Visits Re quested Visits Authorized [id number] Closed 06/05/2021 06/27/2021 1 1 Reason for Visit * Cardiology (Routine) - Closed Specialty Diagnoses / Procedures Referred By Contac t Referred To Contact Diagnoses 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) (HCC) Procedures Stress [place] Pharmacologic Enio Smith MD [address] [place] [address] Phone: tel: fax: [address] [address] Referral ID Status Reason Start Date Expiration Date Visits Re quested Visits Authorized [id number] Closed 06/05/2021 06/27/2021 1 1 Encounter Details Date Type Department Care Team (Latest Contact Info) Description 06/08/2021 10:03 AM CDT - 06/08/2021 11:59 PM CDT Hospital Encounter [facility] Cardiac Diagnostic Lab [address] [place] [address] Enio Smith MD [address] [place] [address] 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) ([facility]) Discharge Disposition: Discharge to home [...] on file Legal 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 Male 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 HELPER Gender Identity Not on file Sexual Orientation Straight 05/03/2020 10 :36 AM CDT documented as of this encounter Last Filed Vital Signs Vital Sign Reading Time Taken Comments Blood Pressure 125/79 06/08/2021 11:48 AM CDT Pulse 75 06/08/2021 11:48 AM CDT Temperature - - Respiratory Rate - - Oxygen Saturation - - Inhaled Oxygen Concentration - - Weight 90.7 kg (200 lb) 06/08/2021 10:48 AM CDT Height 190.5 cm (6' 3 ) 06/08/2021 10:48 AM CDT Body Mass Index 25 06/08/2021 10:48 AM CDT documented in this encounter Medications at Time [...] KIDNEY ESRD (end stage renal disease) ([facility]) documented as of this encounter Procedures Procedure Name Priority Date/Time Associated Diagnosis Comments STRESS ECHO PHARMACOLOGIC W DOPPLER/CF W CONTRAST Routine 06/08/2021 12:04 PM CDT Stage 5 chronic kidney disease on chronic dialysis ([facility]) ([facility]) documented in this encounter Results * STRESS ECHO PHARMACOLOGIC W DOPPLER/CF W CONTRAST (06/08/2021 12:04 PM CDT) Anatomical Region Laterality Modality Ultrasound 06/08/2021 10:3 0 AM CDT Narrative 06/08/2021 12:19 PM CDT Patient name: Abel Browne Date of test: 06/08/2021 Hospital #: [id number] ?Location: [facility] Interpreted by: Ezio Garcia MD Puffer Tender: Radha Garza RDCS RN: Destiny Griffith RN Reason for Test: Renal Tx Evaluation Study quality: Technically good Referring Physician: ENIO SMITH MD Contrast Agent: 1.9 ml Optison Administered, (1.1 ml wasted). BASELINE STUDY: Wall Motion Scoring (1=Normal 2=Hypo 3=Akinetic 4=Dyskin./Aneurysm 0=Not visualized) Parasternal Long [place]:MAS=1 BAS=1 MIL=1 KENDRA=1 Parasternal Short [place]:MAS=1 MIS=1 ID=1 MIL=1 MAL=1 MA=1 Apical 4 Chambers:=1 MIS=1 BIS=1 BAL=1 MAL=1 AL=1 AC=1 Apical 2 Chambers:AI=1 ID=1 BI=1 BA=1 MA=1 AA=1 AC=1 Ejection Fraction: 70% LV Global Strain: -21.8% LV Global Function: Normal left ventricular systolic function. Baseline Echo Comments: Normal LV+RV morphology and function, No wall abnormalities. Doppler/CF Comments: No MS, MR, , AR, TS, TR, PS, [place], PA systolic pressure is 20 mmHg. Baseline HR: 55 Baseline BP: 104/55 Conduction Defects: None Resting ECG Comments: Normal sinus rhythm, NSSTTWA Medications: metoprolol norvasc asa bumex pepcid Meds held: metoprolol POST DOBUTAMINE STUDY: Wall Motion Scoring (1=Normal 2=Hypo 3=Akinetic 4=Dyskin./Aneurysm 0=Not visualized) Parasternal Long [place]:MAS=1 BAS=1 MIL=1 KENDRA=1 Parasternal Short [place]:MAS=1 MIS=1 ID=1 MIL=1 MAL=1 MA=1 Apical 4 Chambers:=1 MIS=1 BIS=1 BAL=1 MAL=1 AL=1 AC=1 Apical 2 Chambers:AI=1 ID=1 BI=1 BA=1 MA=1 AA=1 AC=1 Intravenous dobutamine [...] MD By signing this report, the attending bushing and broach operator certifies that he or she has personally supervised and interpreted the echocardiogram and has reviewed and or edited and agrees with the written comments contained within the report. Procedure Note Ezio Garcia MD - 06/08/2021 Patient name: Abel Browne Date of test: 06/08/2021 Hospital #: [id number] Location: [facility] Interpreted by: Ezio Garcia MD Puffer Tender: Radha Garza RDCS RN: Destiny Griffith RN Reason for Test: Renal Tx Evaluation Study quality: Technically good Referring Physician: ENIO SMITH MD Contrast Agent: 1.9 ml Optison Administered, (1.1 ml wasted). BASELINE STUDY: Wall Motion Scoring (1=Normal 2=Hypo 3=Akinetic 4=Dyskin./Aneurysm 0=Not visualized) Parasternal Long [place]:MAS=1 BAS=1 MIL=1 KENDRA=1 Parasternal Short [place]:MAS=1 MIS=1 ID=1 MIL=1 MAL=1 MA=1 Apical 4 Chambers:=1 MIS=1 BIS=1 BAL=1 MAL=1 AL=1 AC=1 Apical 2 Chambers:AI=1 ID=1 BI=1 BA=1 MA=1 AA=1 AC=1 Ejection Fraction: 70% LV Global Strain: -21.8% LV Global Function: Normal left ventricular systolic function. Baseline Echo Comments: Normal LV+RV morphology and function, No wall abnormalities. Doppler/CF Comments: No MS, MR, , AR, TS, TR, PS, WI, PA systolic pressure is 20 mmHg. Baseline HR: 55 Baseline BP: 104/55 Conduction Defects: None Resting ECG Comments: Normal sinus rhythm, NSSTTWA Medications: metoprolol norvasc asa bumex pepcid Meds held: metoprolol POST DOBUTAMINE STUDY: Wall Motion Scoring (1=Normal 2=Hypo 3=Akinetic 4=Dyskin./Aneurysm 0=Not visualized) Parasternal Long [place]:MAS=1 BAS=1 MIL=1 KENDRA=1 Parasternal Short [place]:MAS=1 MIS=1 ID=1 MIL=1 MAL=1 MA=1 Apical 4 Chambers:=1 MIS=1 BIS=1 BAL=1 MAL=1 AL=1 AC=1 Apical 2 Chambers:AI=1 ID=1 BI=1 BA=1 MA=1 AA=1 AC=1 Intravenous dobutamine [...] MD By signing this report, the attending bushing and broach operator certifies that he or she has personally supervised and interpreted the echocardiogram and has reviewed and or edited and agrees with the written comments contained within the report. Enio Smith MD CV ECHO PROCEDURES Final Result documented in this encounter Visit Diagnoses Diagnosis 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) (HCC) documented in this encounter Administered Medications Inactive Administered Medications - up to 3 most recent administrations Medication Order MAR Action Action Date Dose Rate Site atropine injection 0.2-2 mg 0.2-2 mg, intravenous, Administer over 1 Minutes, Titrated, Starting on Brenna 06/08/21 at 1100, For 2 hours, Intra-Procedure (CV) New Bag 06/08/2021 11:39 AM CDT 0.3 mg DOBUTamine in dextrose 5% (DOBUTREX) 1,000 mg/250 mL (4,000 mcg/mL) infusion (premix) 10-50 mcg/kg/min ? 91 kg (13.65-68.25 mL/hr), intravenous, Titrated, Starting on Brenna 06/08/21 at 1100, For 2 hours, Intra-Procedure (CV) New Bag 06/08/2021 11:41 AM CDT 40 mcg/kg/min 54.6 mL/hr esmoloL (BREVIBLOC) injection 10-200 mg 10-200 mg, intravenous, Administer over 1 Minutes, Titrated, Starting on Brenna 06/08/21 at 1100, For 2 hours, Intra-Procedure (CV) New Bag 06/08/2021 11:42 AM CDT 30 mg perflutren protein-a (OPTISON) 3 mL in sodium chloride 0.9% 8 mL syringe 1-8 mL, intravenous, Once in imaging, contrast, Starting on Brenna 06/08/21 at 1019, For 1 dose, Intra-Procedure (CV) Contrast Given 06/08/2021 11:41 AM CDT 5 mL documented in this encounter Historical Medications * This list may reflect changes made after this encounter. Medication Sig Dispense Quantity Refills Last Filled Start D ate End Date lidocaine-prilocaine cream 03/17/2021 added in this encounter Care Teams Client Service Administrator Relationship Specialty Start Date End Date Gerardo Shah MD PCP - General Internal Medicine 09/30/18 Suzette Strickland MD [address] [facility] [address] [place] [address] Referring Physician Nephrology 02/15/20 Rita Tapia, RN [address] [place] [address] Registered Nurse Masonry Installer 02/15/20 documented as of this encounter
--- OUTSIDE RECORDS SUMMARY | 2024-10-16 06:38 | XMS_ITS | Encounter Summary ---
Author Organization [facility] Healthcare Address [address] [place] [address] Care Team Providers Care Waste Disposal Leakage Tester Name Role Phone Gerardo Shah MD Primary Care Provider [phone] Suzette Strickland MD Unavailable [phone] Rita Tapia RN Unavailable [phone] Reason for Visit * Reason Onset Date Comments Waitlist Maintenance 05/11/2021 Encounter Details Date Type Department Care Team (Late st Contact Info) Description 05/11/2021 Telephone [facility] and [facility] Transplant Kidney [address] [address] [id number] [place] [address] Cornelia Tracey Waitlist Maintenance Social History Tobacco Use Types Packs/Day Years Used Date Smoking Tobacco: Former Cigarettes 1.5 40 0 04/11/1978 - 2017 Smokeless Tobacco: Never Alcohol Use Standard Drinks/Week Comments Yes 1 (1 standard drink = 0.6 oz pur e alcohol) OCC Sex and Gender Information Value Date Recorded Sex Assigned at Not on file Legal Sex Male 4:54 AM CANNONEER Gender Identity Not on file Sexual Orientation Straight 05/03/2020 10 :36 AM CDT documented as of this encounter Miscellaneous Notes * Telephone Encounter - Kirstin De La Torre - 05/11/2021 1:37 PM CDT Patient now has Medicare secondary updated smartform * Telephone Encounter - Kirstin De La Torre - 05/11/2021 1:36 PM CDT Patient : NATIVIDAD FINCH : 1960 Gender: Male Address: [address] [place] [id number] Eligibility : 05/11/2021 Submitter : ROMINA Submitter Type: Provider General Eligibility Information Status: Active Coverage Insurance Type: Medicare Part A Plan : 01/26/2021 Notes 2-Beneficiary insured due to End Stage Renal Disease ESRD Status: Active Coverage Insurance Type: Medicare Part B Plan : 01/26/2021 Notes 2-Beneficiary insured due to End Stage Renal Disease ESRD Coverages -- Select Coverage -- Coordination of Benefits Health Benefit Plan Coverage Insurance Type: Medicare Secondary End-Stage Renal Disease Beneficiary in the 12 month coordinationperiod with an employer's group health plan Primary Payer: [facility] Address: [facility] [address] [place] [address] Coordination of Benefits : 01/26/2021-07/27/2023 Insurance Policy #: [id number] * Telephone Encounter - Cornelia Tracey - 05/11/2021 1:00 PM CDT Spoke to patient on the phone. Delivered the education message about how the waiting list works. Discussed that wait times vary greatly based on a number of factors, and briefly explained how organ matches are made based on those factors. Encouraged patient to contact nurse with any questions. Reviewed the following: Demographics (email, address, phone numbers): No changes Patient contacts: No changes Insurance carriers: The patient stated that he has Medicare A&B in addition to [place] [employer]. The patient stated that his medicare number is [id number]. Please update in Epic. Employment status and financial situation: No changes Dialysis: No changes Weight: Patient self reported being 195 pounds. BMI 24.4. Medical issues (hospitalizations, medical conditions, illnesses, infections, procedures, open wounds, new diagnoses, or positive COVID results): None reported COVID Vaccinations: None reported Social Issues/Questions: None reported OTHER: The patient states that he is doing fine . He states that he feels a little weak some days.However, he thinks that this is normal due to his decreased kidney function. The patient tries to eat healthy and exercise when able. documented in this encounter Plan of Treatment Scheduled Procedures Name Priority Associated Diagnoses Date/Ti me TRANSPLANT KIDNEY ESRD (end stage renal disease) ([facility]) documented as of this encounter Visit Diagnoses Not on filedocumented in this encounter Care Teams Waste Disposal Leakage Tester Relationship Specialty Start Date End Date Gerardo hSah MD PCP - General Internal Medicine 09/30/18 Suzette Strickland MD [address] [facility] [address] [place] [address] Referring Physician Nephrology 02/15/20 Rita Tapia, RN [address] [place], [place] [id number] Registered Nurse Workforce Manager 02/15/20 documented as of this encounter
--- OUTSIDE RECORDS SUMMARY | 2024-10-16 06:38 | XMS_ITS | Encounter Summary ---
Author Organization [facility] Healthcare Address [address] [place] [address] Care Team Providers Care Vest Baster Name Role Phone Gerardo Shah MD Primary Care Provider Suzette Strickland MD Unavailable [phone] Rita Tapia RN Unavailable [phone] Reason for Visit * Reason Onset Date Comments Waitlist Maintenance 07/19/2021 Encounter Details Date Type Department Care Team (Late st Contact Info) Description 07/19/2021 Telephone [facility] Transplant Kidney [address] [address] [address] [place] [address] Cornelia Tracey Waitlist Maintenance Social History Tobacco Use Types Packs/Day Years Used Date Smoking Tobacco: Former Cigarettes 1.5 40 0 04/11/1978 - 2017 Smokeless Tobacco: Never Alcohol Use Standard Drinks/Week Comments Yes 1 (1 standard drink = 0.6 oz pur e alcohol) OCC Sex and Gender Information Value Date Recorded Sex Assigned at Not on file Legal Sex Male 4:54 AM ACQUISITION ADVISOR Gender Identity Not on file Sexual Orientation Straight 05/03/2020 10 :36 AM CDT documented as of this encounter Miscellaneous Notes * Telephone Encounter - Cornelia Tracey - 07/20/2021 2:38 PM CDT Spoke to patient on the [...] contacts: No changes Insurance carriers: The patient confirmed [employer] as his primary insurance and Medicare A&B as his secondary insurance. Employment status and financial situation: No changes Dialysis: No changes Weight: Patient self reported being 85.9 kilos. BMI 23.7. Medical issues (hospitalizations, medical conditions, illnesses, infections, procedures, open wounds, new diagnoses, or positive COVID results): The patient stated that he has been walking about 5 miles a day to reduce his leg cramps. The patient states he believes this walking has helped him lose weight as well. COVID Vaccinations: None reported Social Issues/Questions: None reported documented in this encounter Plan of Treatment Scheduled Procedures Name Priority Associated Diagnoses Date/Ti me TRANSPLANT KIDNEY ESRD (end stage renal disease) ([facility]) documented as of this encounter Visit Diagnoses Not on filedocumented in this encounter Care Teams Vest Baster Relationship Specialty Start Date End Date Gerardo Shah MD PCP - General Internal Medicine 09/30/18 Suzette Strickland MD [address] [facility] [address] [place] [address] Referring Physician Nephrology 02/15/20 Rita Tapia, RN [address] [place] [address] Registered Nurse Rheostat Assembler 02/15/20 documented as of this encounter
--- OUTSIDE RECORDS SUMMARY | 2024-10-16 06:38 | XMS_ITS | Encounter Summary ---
Author Organization [facility] Healthcare Address [address] [place] [address] Care Team Providers Care Physician Executive Name Role Phone Gerardo Shah MD Primary Care Provider [phone] Suzette Strickland MD Unavailable [phone] Rita Tapia RN Unavailable [phone] Encounter Details Date Type Department Care Team (Late st Contact Info) Description 08/02/2021 Telephone [facility] and [facility] Transplant Kidney [address] [address] [phone] [place] [address] Zhane Hatfield Social History Tobacco Use Types Packs/Day Years Used Date Smoking Tobacco: Former Cigarettes 1.5 40 0 04/11/1978 - 2017 Smokeless Tobacco: Never Alcohol Use Standard Drinks/Week Comments Yes 1 (1 standard drink = 0.6 oz pur e alcohol) OCC Sex and Gender Information Value Date Recorded Sex Assigned at Not on file Legal Sex Male 4:54 AM SKYDIVING INSTRUCTOR Gender Identity Not on file Sexual Orientation Straight 05/03/2020 10 :36 AM CDT documented as of this encounter Miscellaneous Notes * Telephone Encounter - Zhane Hatfield - 08/02/2021 3:43 PM CDT Received call from new assigned therapeutic case manager today - Anny Adler. Anny provided her contact information and confirmed pt remains actively listed with txp approval in place. Anny's phone: [phone] / fax: [phone]. Pt's record Updated. documented in this encounter Plan of Treatment Scheduled Procedures Name Priority Associated Diagnoses Date/Ti me TRANSPLANT KIDNEY ESRD (end stage renal disease) ([facility]) documented as of this encounter Visit Diagnoses Not on filedocumented in this encounter Care Teams Physician Executive Relationship Specialty Start Date End Date Gerardo Shah MD PCP - General Internal Medicine 09/30/18 Suzette Strickland MD [address] [facility] [address] [place] [address] Referring Physician Nephrology 02/15/20 Rita Tapia, RN [address] [place] [address] Registered Nurse Automobile Repair Service Estimator 02/15/20 documented as of this encounter
--- OUTSIDE RECORDS SUMMARY | 2024-10-16 06:38 | XMS_ITS | Encounter Summary ---
Author Organization [facility] Healthcare Address [address] [place] [address] Care Team Providers Care Wood Drill Operator Name Role Phone Gerardo Shah MD Primary Care Provider [phone] Suzette Strickland MD Unavailable [phone] Rita Tapia RN Unavailable [phone] Encounter Details Date Type Department Care Team (Late st Contact Info) Description 05/02/2021 Documentation [facility] and [facility] Transplant Kidney [address] [address] Mail[phone] [place] [address] Erica Rosales Social History Tobacco Use Types Packs/Day Years Used Date Smoking Tobacco: Former Cigarettes 1.5 40 0 04/11/1978 - 2017 Smokeless Tobacco: Never Alcohol Use Standard Drinks/Week Comments Yes 1 (1 standard drink = 0.6 oz pur e alcohol) OCC Sex and Gender Information Value Date Recorded Sex Assigned at Not on file Legal Sex Male 4:54 AM GLOBAL CTO Gender Identity Not on file Sexual Orientation Straight 05/03/2020 10 :36 AM CDT documented as of this encounter Progress Notes * Erica Rosales - 05/02/2021 12:16 PM CDT Emailed schedule, map, and stress test med list to: [email or web address] documented in this encounter Plan of Treatment Scheduled Procedures Name Priority Associated Diagnoses Date/Ti me TRANSPLANT KIDNEY ESRD (end stage renal disease) ([facility]) documented as of this encounter Visit Diagnoses Not on filedocumented in this encounter Care Teams Wood Drill Operator Relationship Specialty Start Date End Date Gerardo Shah MD PCP - General Internal Medicine 09/30/18 Suzette Strickland MD [address] [facility] [address] [place] [address] Referring Physician Nephrology 02/15/20 Rita Tapia, RN [address] [place], [place] [id number] Registered Nurse Senior Marketing Specialist 02/15/20 documented as of this encounter
--- OUTSIDE RECORDS SUMMARY | 2024-10-16 06:38 | XMS_ITS | Encounter Summary ---
Author Organization [facility] Address [address] [place] [address] Phone Care Team Providers Care Grain Manager Name Role Phone Gerardo Shah MD Primary Care Provider [phone] Suzette Strickland MD Unavailable [phone] Rita Tapia RN Unavailable [phone] Encounter Details Date Type Department Care Team (Late st Contact Info) Description 09/15/2021 Telephone [facility] [place] [address] Neisha Wilkes EMT Social History Tobacco Use Types Packs/Day Years Used Date Smoking Tobacco: Former Cigarettes 1.5 40 0 04/11/1978 - 2017 Smokeless Tobacco: Never Alcohol Use Standard Drinks/Week Comments Yes 1 (1 standard drink = 0.6 oz pur e alcohol) OCC Sex and Gender Information Value Date Recorded Sex Assigned at Not on file Legal Sex Male 4:54 AM DESKIDDING MACHINE OPERATOR Gender Identity Not on file Sexual Orientation Straight 05/03/2020 10 :36 AM CDT documented as of this encounter Miscellaneous Notes * Telephone Encounter - Neisha Wilkes EMT - 09/15/2021 2:08 PM CST Attempted to contact pt to reschedule appt. Left a voicemail with instructions to call us back. Pt needs to be rescheduled to 08/30/2022 or 09/13/2022 per MD schedule change. IDDING MACHINE OPERATOR IDDING MACHINE OPERATOR documented in this encounter Plan of Treatment Scheduled Procedures Name Priority Associated Diagnoses Date/Ti me TRANSPLANT KIDNEY ESRD (end stage renal disease) ([facility]) documented as of this encounter Visit Diagnoses Not on filedocumented in this encounter Care Teams Grain Manager Relationship Specialty Start Date End Date Gerardo Shah MD PCP - General Internal Medicine 09/30/18 Suzette Strickland MD [address] [facility] [address] [place] [address] Referring Physician Nephrology 02/15/20 Rita Tapia, RN [address] [place] [address] Registered Nurse Grapple Yarder Operator 02/15/20 documented as of this encounter
--- OUTSIDE RECORDS SUMMARY | 2024-10-16 06:38 | XMS_ITS | Encounter Summary ---
Author Organization [facility] Healthcare Address [address] [place] [address] Care Team Providers Care Trades Helper Name Role Phone Gerardo Shah MD Primary Care Provider [phone] Suzette Strickland MD Unavailable [phone] Rita Tapia RN Unavailable [phone] Reason for Visit * Reason Onset Date Comments Waitlist Maintenance 01/12/2021 Encounter Details Date Type Department Care Team (Late st Contact Info) Description 01/12/2021 Telephone [facility] Transplant Kidney [address] [address] Mailstop [phone] [place] [address] Rubi Ott Waitlist Maintenance Social History Tobacco Use Types Packs/Day Years Used Date Smoking Tobacco: Former Cigarettes 1.5 40 0 04/11/1978 - 2017 Smokeless Tobacco: Never Alcohol Use Standard Drinks/Week Comments Yes 1 (1 standard drink = 0.6 oz pur e alcohol) OCC Sex and Gender Information Value Date Recorded Sex Assigned at Not on file Legal Sex Male 4:54 AM DUST MILL OPERATOR Gender Identity Not on file Sexual Orientation Straight 05/03/2020 10 :36 AM CDT documented as of this encounter Miscellaneous Notes * Telephone Encounter - Rubi Ott - 01/12/2021 3:57 PM CDT Spoke to patient on the phone. Delivered the education message about being ready when patient is called in for a transplant. Explained needing to have a support person identified and ready to go, a bag packed and ready, and discussed that transplant ???dry-runs?? may happen. Encouraged patient to contact nurse with any questions. Reviewed the following: Demographics (email, address, phone numbers): No changes Patient contacts: No changes Insurance carriers: Patient confirmed [facility] as sole/primary policy Employment status and financial situation: No changes Dialysis: No changes - patient reported previously noted start of dialysis Weight: Patient self reported being 99 kilos Medical issues (hospitalizations, medical conditions, illnesses, infections, procedures, open wounds, new diagnoses, or positive COVID results): None reported COVID Vaccinations: None reported Social Issues/Questions: None reported documented in this encounter Plan of Treatment Scheduled Procedures Name Priority Associated Diagnoses Date/Ti me TRANSPLANT KIDNEY ESRD (end stage renal disease) ([facility]) documented as of this encounter Visit Diagnoses Not on filedocumented in this encounter Care Teams Trades Helper Relationship Specialty Start Date End Date Gerardo Shah MD PCP - General Internal Medicine 09/30/18 Suzette Strickland MD [facility] [address] [place] [address] Referring Physician Nephrology 02/15/20 Rita Tapia, RN [address] [place] [address] Registered Nurse Colleter 02/15/20 documented as of this encounter
--- OUTSIDE RECORDS SUMMARY | 2024-10-16 06:38 | XMS_ITS | Encounter Summary ---
Author Organization [facility] Healthcare Address [address] [place] [address] Care Team Providers Care Food Checker Name Role Phone Gerardo Shah MD Primary Care Provider [phone] Suzette Strickland MD Unavailable [phone] Rita Tapia RN Unavailable [phone] Encounter Details Date Type Department Care Team (Late st Contact Info) Description 11/15/2020 Telephone [facility] Transplant Kidney [address] [address] Mailstop [phone] [place] [address] Brittany Markham Social History Tobacco Use Types Packs/Day Years Used Date Smoking Tobacco: Former Cigarettes 1.5 40 0 04/11/1978 - 2017 Smokeless Tobacco: Never Alcohol Use Standard Drinks/Week Comments Yes 1 (1 standard drink = 0.6 oz pur e alcohol) OCC Sex and Gender Information Value Date Recorded Sex Assigned at Not on file Legal 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 Gender Identity Not on file Sexual Orientation Straight 05/03/2020 10 :36 AM CDT documented as of this encounter Miscellaneous Notes * Telephone Encounter - Brittany Markham - 11/15/2020 12:34 PM CST Patient's called on after hours line regarding Dialysis Requested a call back GRATION JUDGE documented in this encounter Plan of Treatment Scheduled Procedures Name Priority Associated Diagnoses Date/Ti me TRANSPLANT KIDNEY ESRD (end stage renal disease) ([facility]) documented as of this encounter Visit Diagnoses Not on filedocumented in this encounter Care Teams Food Checker Relationship Specialty Start Date End Date Gerardo Shah MD PCP - General Internal Medicine 09/30/18 Suzette Strickland MD [address] [facility] [address] [place] [address] Referring Physician Nephrology 02/15/20 Rita Tapia, RN [address] [place] [address] Registered Nurse Jumpbasting Canvas Baster 02/15/20 documented as of this encounter
--- OUTSIDE RECORDS SUMMARY | 2024-10-16 06:38 | XMS_ITS | Encounter Summary ---
Author Organization [facility] Healthcare Address [address] [place] [address] Care Team Providers Care Firearms Sales Associate Name Role Phone Gerardo Shah MD Primary Care Provider [phone] Suzette Strickland MD Unavailable [phone] Rita Tapia RN Unavailable [phone] Encounter Details Date Type Department Care Team (Late st Contact Info) Description 06/08/2021 10:00 AM CDT Lab [facility] Advanced Medicine [facility] Advanced Medicine ([facility]) [address] [place] [address] [phone] Stage 5 chronic kidney disease on chronic dialysis ([facility]/HCC) ([facility]) Social History Tobacco Use Types Packs/Day Years Used Date Smoking Tobacco: Former Cigarettes 1.5 40 0 04/11/1978 - 2017 Smokeless Tobacco: Never Alcohol Use Standard Drinks/Week Comments Yes 1 (1 standard drink = 0.6 oz pur e alcohol) OCC Sex and Gender Information Value Date Recorded Sex Assigned at Not on file 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 Gender Identity Not on file Sexual Orientation Straight 05/03/2020 10 :36 AM CDT documented as of this encounter Plan of Treatment Scheduled Procedures Name Priority Associated Diagnoses Date/Ti me TRANSPLANT KIDNEY ESRD (end stage renal disease) ([facility]/HCC) documented as of this encounter Procedures Procedure Name Priority Date/Time Associated Diagnosis Comments EGFR Routine 06/08/2021 8:05 AM CDT 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) (HCC) DIFFERENTIAL AUTO Routine 06/08/2021 8:0 5 AM CDT 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) (HCC) PSA SCREEN Routine 06/08/2021 8:05 AM CDT 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) (HCC) HIV 1/2 ANTIBODY PLUS P24 ANTIGEN Routine 06/08/2021 8:05 AM CDT 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) (HCC) CBC WITH AUTO DIFFERENTIAL Routine 06/08/2021 8:05 AM CDT 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) (HCC) HEPATITIS C ANTIBODY Routine 06/08/2021 8:05 AM CDT 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) (HCC) HEPATITIS B CORE ANTIBODY, TOTAL Routine 06/08/2021 8:05 AM CDT 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) (HCC) HEPATITIS B SURFACE ANTIBODY (IMMUNE STATUS) Routine 06/08/2021 8:05 AM CDT 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) (HCC) HEPATITIS B SURFACE ANTIGEN Routine 06/08/2021 8:05 AM CDT 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) (HCC) PHOSPHORUS Routine 06/08/2021 8:05 AM CDT 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) (HCC) PTH Routine 06/08/2021 8:05 AM CDT 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) (HCC) COMPREHENSIVE METABOLIC PANEL Routine 06/08/2021 8:05 AM CDT 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) (HCC) documented in this encounter Results * (ABNORMAL) eGFR (06/08/2021 8:05 AM CDT) Pathologist [facility] eGFR 12(L) 90 - 130 mL/min/1.7 3 m2 [facility] Comment: Interpretive Data Reference Interval Normal ?>/= 90 mL/min/1.73m2 Mildly decreased* ? 60 - 89 mL/min/1.73m2 Mildly to moderately decreased ?45 - 59 mL/min/1.73m2 Moderately to severely decreased ??30 - 44 mL/min/1.73m2 Severely decreased ?15 - 29 mL/min/1.73m2 Kidney Failure ?< 15 ??mL/min/1.73m2 *Relative to young adult level Estimated glomerular filtration rate is determined by the CKD-EPI equation recommended by the National Kidney Foundation (KDIGO 2012 Clinical Practice Guideline for the Evaluation and Management of Chronic Kidney Disease. Kidney Intnl Suppl Oct 2012;3:1). The CKD-EPI equation should not be used for patients with unstable renal function and has not been validated in children and those over 70. Current interpretive data was last reviewed 2020 Blood specimen (specimen) 06/08/2021 8:05 AM CDT 06/08/2021 8:28 AM CDT us Tatianna Moyer MD LAB BLOOD ORDERABL ES Final Result [facility] Department [place] [address] * Differential, auto (06/08/2021 8:05 AM CDT) Pathologist [facility] Neutrophil abs 3.1 1.7 - 6.5 K/cumm [facility] Imm gran abs 0.0 0.0 - 0.1 K/cumm [facility] Lymphocyte abs 1.5 0.8 - 3.3 K/cumm [facility] Monocyte abs 0.6 0.2 - 0.8 K/cumm [facility] Eosinophil abs 0.1 0.0 - 0.5 K/cumm [facility] Basophil abs 0.1 0.0 - 0.1 K/cumm [facility] Neutrophil pct 57.6 % [facility] Comment: Interpretive Data Percent cell count reference ranges are not reported, since discordance with absolute values may lead to misinterpretation of CBC data. Current Interpretive Data was last revised on 2018. Imm gran pct 0.4 % [facility] Comment: Interpretive Data Percent cell count reference ranges are not reported, since discordance with absolute values may lead to misinterpretation of CBC data. Current Interpretive Data was last revised on 2018. Lymphocyte pct 28.7 % [facility] Comment: Interpretive Data Percent cell count reference ranges are not reported, since discordance with absolute values may lead to misinterpretation of CBC data. Current Interpretive Data was last revised on 2018. Monocyte pct 10.3 % [facility] Comment: Interpretive Data Percent cell count reference ranges are not reported, since discordance with absolute values may lead to misinterpretation of CBC data. Current Interpretive Data was last revised on 2018. Eosinophil pct 1.5 % [facility] Comment: Interpretive Data Percent cell count reference ranges are not reported, since discordance with absolute values may lead to misinterpretation of CBC data. Current Interpretive Data was last revised on 2018. Basophil pct 1.5 % [facility] Comment: Interpretive Data Percent cell count reference ranges are not reported, since discordance with absolute values may lead to misinterpretation of CBC data. Current Interpretive Data was last revised on 2018. Blood specimen (specimen) 06/08/2021 8:05 AM CDT 06/08/2021 8:28 AM CDT Tatianna Moyer MD LAB BLOOD ORDERABL ES Final Result [facility] [place] [address] * (ABNORMAL) CBC with auto differential (06/08/2021 8:05 AM CDT) [facility] WBC 5.3 3.8 - 9.9 K/cumm [facility] Hgb 11.6(L) 13.0 - 17.5 g/dL [facility] Hct 36.0(L) 38.9 - 50.3 % [facility] Plt 209 150 - 400 K/cumm [facility] MPV 10.6 9.1 - 12.[address] [facility] RBC 3.63(L) 4.30 - 5.80 M/cumm [facility] MCV 99.2(H) 81.3 - 96.[address] [facility] MCH 32.0 27.1 - 33.[address] [facility] MCHC 32.2(L) 32.3 - 35.7 g/dL [facility] RDW CV 13.5 11.1 - 14.9 % [facility] RDW SD 49.5(H) 35.7 - 48.[address] [facility] NRBC abs 0.00 0.00 - 0.01 K/cumm [facility] Blood specimen (specimen) 06/08/2021 8:05 AM CDT 06/08/2021 8:28 AM CDT Tatianna Moyer MD LAB BLOOD ORDERABL ES Final Result [facility] Department [place] [address] * (ABNORMAL) Comprehensive metabolic panel (06/08/2021 8:05 AM CDT) Pathologist [facility] Sodium 143 135 - 145 mmol/L [facility] Potassium, pl 4.7 3.3 - 4.9 mmol/L [facility] Chloride 100 97 - 110 mmol/L [facility] CO2 32 22 - 32 mmol/L [facility] Anion gap 11 2 - 15 mmol/L [facility] BUN 22 8 - 25 mg/dL [facility] Creatinine 4.92(H) 0.80 - 1.30 mg/dL [facility] Glucose 89 70 - 199 mg/dL [facility] Comment: Interpretive Data Fasting glucose >/= [...] 9.2 8.5 - 10.3 mg/dL [facility] Bilirubin, total 0.5 0.1 - 1.2 mg/dL [facility] Protein, pl 7.4 6.5 - 8.5 g/dL [facility] Albumin 4.7 3.5 - 5.0 g/dL [facility] Alk phos 68 40 - 130 Units/L [facility] ALT 10 7 - 55 Units/L [facility] AST 15 10 - 50 Units/L [facility] Blood specimen (specimen) 06/08/2021 8:05 AM CDT 06/08/2021 8:28 AM CDT Tatianna Moyer MD LAB BLOOD ORDERABL ES Final Result [facility] Department [place] [address] * HIV 1/2 Antibody plus p24 Antigen (06/08/2021 8:05 AM CDT) HIV 1/2 ab + p24 ag Nonreactive Nonreactive [facility] Comment: Nonreactive for HIV-1 antigen and HIV-1/HIV-2 antibodies. No laboratory evidence of HIV infection. If acute HIV infection is suspected, consider testing for HIV-1 RNA. Blood specimen (specimen) 06/08/2021 8:05 AM CDT 06/08/2021 8:28 AM CDT Tatianna Moyer MD LAB MICROBIOLOGY - GENERAL ORDERABLES Final Result Performing Organization Address [facility] de Phone Number [facility] [place] [address] * Hepatitis B surface antibody (immune status) (06/08/2021 8:05 AM CDT) HBsAb (immune status) Reactive [facility] Comment: Interpretive Data Nonreactive: This result [...] status) index 13.5 mIUnits/m L [facility] Blood specimen (specimen) 06/08/2021 8:05 AM CDT 06/08/2021 8:27 AM CDT Tatianna Moyer MD LAB MICROBIOLOGY - GENERAL ORDERABLES Final Result Performing Organization Address [facility] de Phone Number [facility] Department [place] [address] * Hepatitis B Surface Antigen (06/08/2021 8:05 AM CDT) HepBsAg Nonreactive Nonreactive [facility] Blood specimen (specimen) 06/08/2021 8:05 AM CDT 06/08/2021 8:27 AM CDT Tatianna Moyer MD LAB MICROB IOLOGY - GENERAL ORDERABLES Edited Result - Final Performing Organization Address [facility] Co de Phone Number [facility] [place] [address] * Hepatitis C antibody (06/08/2021 8:05 AM CDT) Hep C Ab Nonreactive Nonreactive [facility] Comment:Antibodies to HCV no t detected. Does NOT exclude the possibility of recent exposure to HCV. Blood specimen (specimen) 06/08/2021 8:05 AM CDT 06/08/2021 8:27 AM CDT Tatianna Moyer MD LAB MICROB IOLOGY - GENERAL ORDERABLES Edited Result - Final Performing Organization Address [facility] Co de Phone Number [facility] [place] [address] * Hepatitis B core antibody, total (06/08/2021 8:05 AM CDT) Hep B core IgG/IgM Nonreactive Nonreactive [facility] Blood specimen (specimen) 06/08/2021 8:05 AM CDT 06/08/2021 8:27 AM CDT Tatianna Moyer MD LAB MICROB IOLOGY - GENERAL ORDERABLES Edited Result - Final Performing Organization Address [facility] Co de Phone Number [facility] Department [place] [address] * Phosphorus (06/08/2021 8:05 AM CDT) Phosphorus, pl 3.8 2.3 - 4.5 mg/dL [facility] Blood specimen (specimen) 06/08/2021 8:05 AM CDT 06/08/2021 8:28 AM CDT Tatianna Moyer MD LAB BLOOD ORDERABL ES Final Result Performing Organization Address [facility] de Phone Number [facility] Department [place] [address] * (ABNORMAL) PTH (06/08/2021 8:05 AM CDT) PTH 148(H) 15 - 65 pg/mL [facility] Blood specimen (specimen) 06/08/2021 8:05 AM CDT 06/08/2021 8:28 AM CDT Tatianna Moyer MD LAB BLOOD ORDERABL ES Final Result Performing Organization Address [facility] de Phone Number [facility] Department [place] [address] * PSA screen (06/08/2021 8:05 AM CDT) Pathologist [facility] PSA-Total 1.20 <=5.40 ng/mL [facility] Comment: Interpretive Data ?AGE ? SEX ?REFERENCE INTERVAL 0 minutes-150 years ?Female ?None 0 minutes-49 years ? Male ?None ? 50-59 years ? Male ?0-3.90 ? 60-69 years ? Male ?0-5.40 ? 70-79 years ? Male ?0-6.20 ? 80-150 years ?Male ?0-6.20 Current interpretive data last revised 2018. Blood specimen (specimen) 06/08/2021 8:05 AM CDT 06/08/2021 8:28 AM CDT us Tatianna Moyer MD LAB BLOOD ORDERABL ES Final Result [facility] [place] [address] documented in this encounter Visit Diagnoses Diagnosis 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) (HCC) documented in this encounter Care Teams Firearms Sales Associate Relationship Specialty Start Date End Date Gerardo Shah MD PCP - General Internal Medicine 09/30/18 Suzette Strickland MD [address] [facility] [address] [place] [address] Referring Physician Nephrology 02/15/20 Rita Tapia, RN [address] [place], [place] [address] Registered Nurse Benzene Operator 02/15/20 documented as of this encounter
--- OUTSIDE RECORDS SUMMARY | 2024-10-16 06:38 | XMS_ITS | Encounter Summary ---
Author Organization [facility] Healthcare Address [address] [place] [address] Care Team Providers Care Neurology Physician Assistant Name Role Phone Gerardo Shah MD Primary Care Provider [phone] Suzette Strickland MD Unavailable [phone] Rita Tapia RN Unavailable [phone] Encounter Details Date Type Department Care Team (Late st Contact Info) Description 06/15/2021 10:50 AM CDT Lab [address] [address] ESRD (end stage renal disease) ([facility]/HCC) ([facility]) Social History Tobacco Use Types Packs/Day Years Used Date Smoking Tobacco: Former Cigarettes 1.5 40 0 04/11/1978 - 2017 Smokeless Tobacco: Never Alcohol Use Standard Drinks/Week Comments Yes 1 (1 standard drink = 0.6 oz pur e alcohol) OCC Sex and Gender Information Value Date Recorded Sex Assigned at Not on file 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 Gender Identity Not on file Sexual Orientation Straight 05/03/2020 10 :36 AM CDT documented as of this encounter Plan of Treatment Scheduled Procedures Name Priority Associated Diagnoses Date/Ti me TRANSPLANT KIDNEY ESRD (end stage renal disease) (CMS/[facility]) documented as of this encounter Procedures Procedure Name Priority Date/Time Associated Diagnosis Comments HLA ANTIBODY SCREEN BY PRA OR SAB PER SCHEDULE (CLASS I AND CLASS II) Routine 06/14/2021 10:00 AM CDT ESRD (end stage renal disease) (CMS/HCC) (HCC) HLA ANTIBODY SCREEN BY PRA Routine 06/14/2021 10:00 AM CDT ESRD (end stage renal disease) (CMS/HCC) (HCC) HLA ANTIBODY SCREEN - SAB (CLASS I AND CLASS II) Routine 06/14/2021 10:00 AM CDT ESRD (end stage renal disease) (CMS/HCC) (HCC) documented in this encounter Results * HLA Antibody Screen - SAB (Class I and Class II) (06/14/2021 10:00 AM CDT) Class I Treatment EDTA [facility] Class I Dilution 1:1 [facility] Class I Tested Date 06/16/2021 [facility] Class I Result Negative [facility] Class I CPRA 0 [facility] Class I Low Risk A34; B37 [facility] Class II Treatment EDTA [facility] Class II Dilution 1:1 [facility] Class II Tested Date 06/16/2021 [facility] Class II Result Negative [facility] Class II CPRA 0 [facility] Class II Low Risk DQ7; DP1 [facility] 06/14/2021 10:0 0 AM CDT 06/16/2021 12:53 PM CDT Narrative [facility] - 06/16/2021 12:53 PM CDT Single-antigen HLA antibody screen is performed on serum samples using a method developed and validated by the [facility] HLA laboratory based on an FDA-approved IVD kit (LABScreen Single-Antigen, [employer], [place], [place]). All patient serum samples are pretreated with EDTA before the screen to prevent complement interference. Additional serum treatments, such as adsorption and DTT treatment, may be performed as indicated. ??Interpretive comments: Low risk: MFI [id number]. Moderate risk: MFI 1626-2579. Increased risk: MFI >/= 5000. The presence [...] antigens to avoid. Testing performed at the [facility], [address] [place] [address], 5th floor, [place], [address]. [place] # [id number]. Gracie Rubi M.D., Ph.D., Associate HLA Nursing Education Specialist Harman Flores M.D., Ph.D., HLA Nursing Education Specialist Stan Patel M.D., [place], [facility] Current methodology and interpretive comments last revised on 01/05/2020. Tatianna Moyer MD LAB BLOOD ORDERABL ES Final Result Performing Organization Address [facility] Co de Phone Number [facility] * Collection Task for HLA Antibody Screen (06/14/2021 10:00 AM CDT) HLA Antibody Screen by PRA Received [facility] Blood 06/14/2021 10:0 0 AM CDT 06/15/2021 12:11 PM CDT Tatianna Moyer MD LAB BLOOD ORDERABL ES Final Result Performing Organization Address [facility] Co de Phone Number [facility] [place] [address] * HLA Antibody Screen by PRA or SAB per Schedule (Class I and Class II) (06/14/2021 10:00 AM CDT) Blood specimen (specimen) 06/14/2021 10:00 AM CDT Narrative [facility] - GAME WARDEN Sample received in lab. ??Single Antigen Antibody Screen ordered. us Tatianna Moyer MD LAB BLOOD ORDERABL ES Final Result [facility] documented in this encounter Visit Diagnoses Diagnosis ESRD (end stage renal disease) (CMS/HCC) (HCC) End stage renal disease documented in this encounter Care Teams Neurology Physician Assistant Relationship Specialty Start Date End Date Gerardo Shah MD PCP - General Internal Medicine 09/30/18 Suzette Strickland MD [address] [facility] [address] [place] [address] Referring Physician Nephrology 02/15/20 Rita Tapia, RN [address] [place] [address] Registered Nurse Assistant Professor Of Physics 02/15/20 documented as of this encounter
--- OUTSIDE RECORDS SUMMARY | 2024-10-16 06:38 | XMS_ITS | Encounter Summary ---
Author Organization [facility] Healthcare Address [address] [place] [address] Care Team Providers Care Lavatory Attendant Name Role Phone Gerardo Shah MD Primary Care Provider [phone] Suzette Strickland MD Unavailable [phone] Rita Tapia RN Unavailable [phone] Encounter Details Date Type Department Care Team (Late st Contact Info) Description 08/11/2021 2:25 PM CDT Lab [address] [address] ESRD (end stage renal disease) ([facility]/HCC) ([facility]) Social History Tobacco Use Types Packs/Day Years Used Date Smoking Tobacco: Former Cigarettes 1.5 40 0 04/11/1978 - 2017 Smokeless Tobacco: Never Alcohol Use Standard Drinks/Week Comments Yes 1 (1 standard drink = 0.6 oz pur e alcohol) OCC Sex and Gender Information Value Date Recorded Sex Assigned at Not on file 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 Gender Identity Not on file Sexual Orientation [...] SCHEDULE (CLASS I AND CLASS II) Routine 08/09/2021 10:00 AM CDT ESRD (end stage renal disease) (CMS/HCC) (HCC) HLA ANTIBODY SCREEN BY PRA Routine 08/09/2021 10:00 AM CDT ESRD (end stage renal disease) (CMS/HCC) (HCC) HLA ANTIBODY SCREEN - SAB (CLASS I AND CLASS II) Routine 08/09/2021 10:00 AM CDT ESRD (end stage renal disease) (CMS/HCC) (HCC) documented in this encounter Results * HLA Antibody Screen - SAB (Class I and Class II) (08/09/2021 10:00 AM CDT) Class I Treatment EDTA HISTOTRAC Class I Dilution 1:1 HISTOTRAC Class I Tested Date 08/12/2021 HISTOTRAC Class I Result Negative HISTOTRAC Class I CPRA 0 HISTOTRAC Class I Low Risk A34; B37 HISTOTRAC Class II Treatment EDTA HISTOTRAC Class II Dilution 1:1 HISTOTRAC Class II Tested Date 08/12/2021 HISTOTRAC Class II Result Positive HISTOTRAC Class II CPRA 0 HISTOTRAC Class II Moderate Risk DQA1*06; DPB1*01:01 HISTOTRAC 08/09/2021 10:0 0 AM CDT 08/14/2021 12:51 PM CDT Narrative HISTOTRAC - 08/14/2021 12:51 PM CDT Single-antigen HLA antibody screen is performed on serum samples using a method developed and validated by the [facility] laboratory based on an FDA-approved IVD kit (LABScreen Single-Antigen, [employer], [place], [place]). All patient serum samples are pretreated with EDTA before the screen to prevent complement interference. Additional serum treatments, such as adsorption and DTT treatment, may be performed as indicated. ??Interpretive comments: Low risk: MFI [id number]. Moderate risk: MFI [id number]. Increased risk: MFI >/= 5000. The presence [...] antigens to avoid. Testing performed at the [facility], [address] [place] [address], 5th floor, [place], [address]. IA # [id number]. Gracie Rubi M.D., Ph.D., Associate HLA Shaker Repairer Harman Flores M.D., Ph.D., HLA Shaker Repairer Stan Patel M.D., Manager Diversity, [facility] Current methodology and interpretive comments last revised on 01/05/2020. Tatianna Moyer MD LAB BLOOD ORDERABL ES Final Result Performing Organization Address City/[facility] Co de Phone Number HISTOTRAC * Collection Task for HLA Antibody Screen (08/09/2021 10:00 AM CDT) HLA Antibody Screen by PRA Received [facility] Blood 08/09/2021 10:0 0 AM CDT 08/11/2021 3:49 PM CDT Tatianna Moyer MD LAB BLOOD ORDERABL ES Final Result [facility] Department [place] [address] * HLA Antibody Screen by PRA or SAB per Schedule (Class I and Class II) (08/09/2021 10:00 AM CDT) Blood specimen (specimen) 08/09/2021 10:00 AM CDT Narrative HISTOTRAC - SCHEDULE ANNOUNCER Sample received in lab. ??Single Antigen Antibody Screen ordered. us Tatianna Moyer MD LAB BLOOD ORDERABL ES Final Result [facility] documented in this encounter Visit Diagnoses Diagnosis ESRD (end stage renal disease) (CMS/HCC) (HCC) End stage renal disease documented in this encounter Care Teams Lavatory Attendant Relationship Specialty Start Date End Date Gerardo Shah MD PCP - General Internal Medicine 09/30/18 Suzette Strickland MD [address] [facility] [address] [place] [address] Referring Physician Nephrology 02/15/20 Rita Tapia, RN [address] [place] [address] Registered Nurse Dumpcart Driver 02/15/20 documented as of this encounter
--- OUTSIDE RECORDS SUMMARY | 2024-10-16 06:38 | XMS_ITS | Encounter Summary ---
Author Organization [facility] Healthcare Address [address] [place] [address] Care Team Providers Care Cisco Certified Network Professional Name Role Phone Gerardo Shah MD Primary Care Provider [phone] Suzette Strickland MD Unavailable [phone] Rita Tapia RN Unavailable [phone] Reason for Visit * Reason Onset Date Comments Waitlist Maintenance 01/10/2021 Encounter Details Date Type Department Care Team (Late st Contact Info) Description 01/10/2021 Documentation [facility] Transplant Kidney [address] 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 documented in this encounter Plan of Treatment Scheduled Procedures Name Priority Associated Diagnoses Date/Ti me TRANSPLANT KIDNEY ESRD (end stage renal disease) ([facility]) documented as of this encounter Visit Diagnoses Not on filedocumented in this encounter Care Teams Cisco Certified Network Professional Relationship Specialty Start Date End Date Gerardo Shah MD PCP - General Internal Medicine 09/30/18 Suzette Strickland MD [facility] [address] [place] [address] Referring Physician Nephrology 02/15/20 Rita Tapia RN [address] [place], [place] [id number] Registered Nurse Linux Engineer 02/15/20 documented as of this encounter
--- OUTSIDE RECORDS SUMMARY | 2024-10-16 06:38 | XMS_ITS | Encounter Summary ---
Author Organization [facility] Healthcare Address [address] [place] [address] Care Team Providers Care Entertainer Or Variety Artist Name Role Phone Gerardo Shah MD Primary Care Provider [phone] Suzette Strickland MD Unavailable [phone] Rita Tapia RN Unavailable [phone] Reason for Visit * Reason Onset Date Comments Waitlist Maintenance 09/18/2021 Encounter Details Date Type Department Care Team (Late st Contact Info) Description 09/18/2021 Telephone [facility] Transplant Kidney [address] [address] Mailstop [phone] [place] [address] Cornelia Tracey Waitlist Maintenance Social History Tobacco Use Types Packs/Day Years Used Date Smoking Tobacco: Former Cigarettes 1.5 40 0 04/11/1978 - 2017 Smokeless Tobacco: Never Alcohol Use Standard Drinks/Week Comments Yes 1 (1 standard drink = 0.6 oz pur e alcohol) OCC Sex and Gender Information Value Date Recorded Sex Assigned at Not on file 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 Delivered [...] No changes Insurance carriers: The patient confirmed [employer] as primary insurance and Medicare A&B as secondary insurance. Employment status and financial situation: No changes Dialysis: No changes Weight: Patient self reported being 186 pounds. BMI 23.2. Medical issues (hospitalizations, medical conditions, illnesses, infections, procedures, open wounds, new diagnoses, or positive COVID results): The patient states that he is still having cramps in his legs and sometimes his hands. He states that he is still walking 5 miles a day. He states that seems to help reduce the cramping. COVID Vaccinations: None reported Social Issues/Questions: None reported PULLER documented in this encounter Plan of Treatment Scheduled Procedures Name Priority Associated Diagnoses Date/Ti me TRANSPLANT KIDNEY ESRD (end stage renal disease) ([facility]) documented as of this encounter Visit Diagnoses Not on filedocumented in this encounter Care Teams Entertainer Or Variety Artist Relationship Specialty Start Date End Date Gerardo Shah MD PCP - General Internal Medicine 09/30/18 Suzette Strickland MD [address] [facility] [address] [place] [address] Referring Physician Nephrology 02/15/20 Rita Tapia, RN [address] [place] [address] Registered Nurse Boot And Saddle Repair Person 02/15/20 documented as of this encounter
--- OUTSIDE RECORDS SUMMARY | 2024-10-16 06:38 | XMS_ITS | Encounter Summary ---
Author Organization [facility] Healthcare Address [address] [place] [address] Care Team Providers Care Quality Systems Technician Name Role Phone Gerardo Shah MD Primary Care Provider [phone] Suzette Strickland MD Unavailable [phone] Rita Tapia RN Unavailable [phone] Encounter Details Date Type Department Care Team (Late st Contact Info) Description 03/07/2021 5:10 PM CDT Lab [address] [address] ESRD (end stage renal disease) ([facility]) Social History Tobacco Use Types Packs/Day Years Used Date Smoking Tobacco: Former Cigarettes 1.5 40 0 04/11/1978 - 2017 Smokeless Tobacco: Never Alcohol Use Standard Drinks/Week Comments Yes 1 (1 standard drink = 0.6 oz pur e alcohol) OCC Sex and Gender Information Value Date Recorded Sex Assigned at Not on file 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 Gender Identity Not on file Sexual Orientation Straight 05/03/2020 10 :36 AM CDT documented as of this encounter Plan of Treatment Scheduled Procedures Name Priority Associated Diagnoses Date/Ti me TRANSPLANT KIDNEY ESRD (end stage renal disease) ([facility]) documented as of this encounter Procedures Procedure Name Priority Date/Time Associated Diagnosis Comments HLA ANTIBODY SCREEN BY PRA OR SAB PER SCHEDULE (CLASS I AND CLASS II) Routine 03/03/2021 10:00 AM CDT ESRD (end stage renal disease) (CMS/HCC) HLA ANTIBODY SCREEN BY PRA Routine 03/03/2021 10:00 AM CDT ESRD (end stage renal disease) (CMS/HCC) documented in this encounter Results * HLA Antibody Screen by PRA or SAB per Schedule (Class I and Class II) (03/03/2021 10:00 AM CDT) Blood specimen (specimen) 03/03/2021 10:00 AM CDT Narrative HISTOTRAC - SKILLED LABORER Sample received in lab and stored. ??No testing performed at this time. Tatianna Moyer MD LAB BLOOD ORDERABL ES Final Result Performing Organization Address City/[facility] Co de Phone Number HISTOTRAC * Collection Task for HLA Antibody Screen (03/03/2021 10:00 AM CDT) HLA Antibody Screen by PRA Received [facility] Blood specimen (specimen) 03/03/2021 10:00 AM CDT 03/07/2021 6:15 PM CDT Tatianna Moyer MD LAB BLOOD ORDERABL ES Final Result Performing Organization Address City/[facility]/ZIP Co de Phone Number [facility] Department [place] [address] documented in this encounter Visit Diagnoses Diagnosis ESRD (end stage renal disease) (CMS/HCC) (HCC) End stage renal disease documented in this encounter Care Teams Quality Systems Technician Relationship Specialty Start Date End Date Gerardo Shah MD PCP - General Internal Medicine 09/30/18 Suzette Strickland MD [address] [facility] [address] [place] [address] Referring Physician Nephrology 02/15/20 Rita Tapia, RN [address] [place] [address] Registered Nurse Ext Js Developer 02/15/20 documented as of this encounter
--- OUTSIDE RECORDS SUMMARY | 2024-10-16 06:38 | XMS_ITS | Encounter Summary ---
Author Organization [facility] Address [address] [place] [address] Care Team Providers Care Formulation Chemist Name Role Phone Gerardo Shah MD Primary Care Provider [phone] Suzette Strickland MD Unavailable [phone] Rita Tapia RN Unavailable [phone] Reason for Visit * Reason Comments Follow-up 6 mo follow up on CP Encounter Details Date Type Department Care Team (Late st Contact Info) Description 03/09/2021 9:30 AM CDT Office Visit [facility] Cardiology [address] [address] Donaldo Tee MD [address] [facility] [address] [address] Other chest pain (Primary Dx) Social History Tobacco Use Types Packs/Day Years Used Date Smoking Tobacco: Former Cigarettes 1.5 40 0 04/11/1978 - 2017 Smokeless Tobacco: Never Alcohol Use Standard Drinks/Week Comments Yes 1 (1 standard drink = 0.6 oz pur e alcohol) OCC Sex and Gender Information Value Date Recorded Sex Assigned at Not on file Legal 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 Male 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 Gender Identity Not on file Sexual Orientation Straight 05/03/2020 10 :36 AM CDT documented as of this encounter Last Filed Vital Signs Vital Sign Reading Time Taken Comments Blood Pressure 132/70 03/09/2021 9:35 AM CDT Pulse 61 03/09/2021 9:35 AM CDT Temperature - - Respiratory Rate - - Oxygen Saturation 98% 03/09/2021 9:35 AM CDT Inhaled Oxygen Concentration - - Weight 93.4 kg (206 lb) 03/09/2021 9:35 AM CDT Height 190.5 cm (6' 3 ) 03/09/2021 9:35 AM CDT Body Mass Index 25.75 03/09/2021 9:35 AM CDT documented in this encounter Progress Notes * Donaldo Tee MD - 03/09/2021 9:30 AM CDT [facility] FOLLOW UP 03/09/2021 Abel Browne is a 61 y.o. male who presents for follow up [...] He was undergoing a transplant workup at [place] and a stress echocardiogram was done which was a negative exam as expected since he is not known to have any coronary disease. He returns to the office today for scheduled follow-up. He is not having any cardiac symptoms or concerns. He has been started on hemodialysis which he now has 3 times per week. He has not had any chest pain or any other cardiac symptoms. REVIEW OF SYSTEMS General ROS: negative for [...] 6 (six) hours as needed for pain ), Disp: 30 capsule, Rfl: 0 ??? amLODIPine (NORVASC) 5 mg tablet, Take 1 tablet (5 mg total) by mouth every morning, Disp: 90 tablet, Rfl: 1 ??? aspirin 81 mg tablet, Take 81 [...] by mouth daily, Disp: , Rfl: ??? metoprolol tartrate (LOPRESSOR) 25 mg immediate release tablet, Take 1 tablet (25 mg total) by mouth 2 (two) times a day, Disp: 180 tablet, Rfl: 1 ??? nitroglycerin [...] 04/04/2020 Lab Results Component Value Date WBC 6.7 07/05/2020 HGB 9.7 (L) 10/12/2020 HCT 29.0 (L) 10/12/2020 MCV 98.3 (H) 07/05/2020 No lab exists for component: LABALBU PHYSICAL EXAM Vitals BP 132/70 (BP Location: Right arm, Patient Position: Sitting) Pulse 61 Ht 190.5 cm (6' 3 ) Wt 93.4 kg (206 lb) SpO2 98% BMI 25.75 kg/m?? Physical Examination: General appearance - alert, [...] Diagnoses and all orders for this visit: Other chest pain PLAN/RECOMMENDATIONS Continue low-dose calcium channel kathryn therapy as described above I will see him at annual intervals at this point since his coronary spasm has not been a recurrent problem any simply taking a modest dose of Norvasc for this. Donaldo Tee MD documented in this encounter Miscellaneous Notes * Addendum Note - Neisha Conti MA - 03/09/2021 9:30 AM CDTAddended by: NEISHA CONTI on: 03/09/2021 11:41 AM Modules accepted: Orders documented in this encounter Plan of Treatment Scheduled Procedures Name Priority Associated Diagnoses Date/Ti me TRANSPLANT KIDNEY ESRD (end stage renal disease) ([facility]) documented as of this encounter Procedures Procedure Name Priority Date/Time Associated Diagnosis Comments POCT LIPID PANEL Routine 03/09/2021 11:4 0 AM CDT Other chest pain documented in this encounter Results * POCT lipid panel (03/09/2021 11:40 AM CDT) Cholesterol, POC 148 mg/dL HDL, POC 39 mg/dL Triglycerides, POC 177 mg/dL LDL Cholesterol POC 74 mg/dL Chol/HDL Ratio, POC 3.8 Non-HDL Cholesterol, POC 110 mg/dL Cholesterol Total, POC 148 mg/dL Capillary blood 03/09/2021 1 1:40 AM CDT us Donaldo Tee MD POINT OF CARE TEST ORDER SARITHA Final Result documented in this encounter Visit Diagnoses Diagnosis Other chest pain- Primary documented in this encounter Discontinued Medications Medication Sig Discontinue Reason Start Date End Da te omeprazole (PriLOSEC) 40 mg capsuleIndications:Treatm ent of Non-Bleeding Gastric Disorder Take 40 mg by mouth every morning Therapy completed 11/27/2018 03/09/2021 sodium zirconium cyclosilicate (LOKELMA ORAL)Indications:LOWER K LEVELS Take 1 tablet by mouth every other day Therapy completed 03/09/2021 documented as of this encounter Historical Medications * This list may reflect changes made after this encounter. famotidine (PEPCID) 20 mg tablet Take 2 tablets (40 mg total) by mouth daily added in this encounter Care Teams Formulation Chemist Relationship Specialty Start Date End Date Gerardo Shah MD PCP - General Internal Medicine 09/30/18 Suzette Strickland MD [address] [facility] [address] [place] [address] Referring Physician Nephrology 02/15/20 Rita Tapia, RN [address] [place] [address] Registered Nurse Player Services Representative 02/15/20 documented as of this encounter
--- OUTSIDE RECORDS SUMMARY | 2024-10-16 06:38 | XMS_ITS | Encounter Summary ---
Author Organization [facility] Healthcare Address [address] [place] [address] Care Team Providers Care Forest Firefighter Name Role Phone Gerardo Shah MD Primary Care Provider [phone] Suzette Strickland MD Unavailable [phone] Rita Tapia RN Unavailable [phone] Encounter Details Date Type Department Care Team (Late st Contact Info) Description 11/15/2020 Telephone [facility] Transplant Kidney [address] [facility] [address] Mailstop [phone] [place], [place] [id number] Rita Tapia RN [address] [facility] [place], [place] [id number] Social History Tobacco Use Types Packs/Day Years Used Date Smoking Tobacco: Former Cigarettes 1.5 40 0 04/11/1978 - 2017 Smokeless Tobacco: Never Alcohol Use Standard Drinks/Week Comments Yes 1 (1 standard drink = 0.6 oz pur e alcohol) OCC Sex and Gender Information Value Date Recorded Sex Assigned at Not on file Legal Sex Male 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 He said he [facility] at [facility]. Updated information in Epic. AMINATED LAND CONSULTANT documented in this encounter Plan of Treatment Scheduled Procedures Name Priority Associated Diagnoses Date/Ti me TRANSPLANT KIDNEY ESRD (end stage renal disease) ([facility]) documented as of this encounter Visit Diagnoses Not on filedocumented in this encounter Care Teams Forest Firefighter Relationship Specialty Start Date End Date Gerardo Shah MD PCP - General Internal Medicine 09/30/18 Suzette Strickland MD [facility] [address] [place] [address] Referring Physician Nephrology 02/15/20 Rita Tapia, RN [address] [place] [address] Registered Nurse City Jailer 02/15/20 documented as of this encounter
--- OUTSIDE RECORDS SUMMARY | 2024-10-16 06:38 | XMS_ITS | Encounter Summary ---
Author Organization [facility] Healthcare Address [address] [place] [address] Care Team Providers Care Solderer Electronic Name Role Phone Gerardo Shah MD Primary Care Provider [phone] Suzette Strickland MD Unavailable [phone] Rita Tapia RN Unavailable [phone] Reason for Visit * Reason Onset Date Comments Waitlist Maintenance 11/15/2021 Encounter Details Date Type Department Care Team (Late st Contact Info) Description 11/15/2021 Telephone [facility] Transplant Kidney [address] [address] Mailstop [id number] [place] [address] Cornelia Tracey Waitlist Maintenance Social History Tobacco Use Types Packs/Day Years Used Date Smoking Tobacco: Former Cigarettes 1.5 40 0 04/11/1978 - 2017 Smokeless Tobacco: Never Alcohol Use Standard Drinks/Week Comments Yes 1 (1 standard drink = 0.6 oz pur e alcohol) OCC Sex and Gender Information Value Date Recorded Sex Assigned at Not on file Legal Sex Male 4:54 AM TELEPHONE OPERATORS SUPERVISOR Gender Identity Not on file Sexual Orientation Straight 05/03/2020 10 :36 AM CDT documented as of this encounter Miscellaneous Notes * Telephone Encounter - Kirstin De La Torre - 11/30/2021 10:08 AM CST Reverified insurance through [employer] and insurance is active PHONE OPERATORS SUPERVISOR * Telephone Encounter - Kirstin De La Torre - 11/30/2021 10:08 AM CST Patient : NATIVIDAD FINCH : 1960 Gender: Male Address: [address] [place] [address] Eligibility : 11/30/2021 Submitter : ROMINA Submitter Type: Provider General [...] an employer's group health plan Primary Payer: [facility] Address: [address] [address] Coordination of Benefits : 01/26/2021-07/27/2023 PHONE OPERATORS SUPERVISOR * Telephone Encounter - Kirstin De La Torre - 11/30/2021 10:07 AM CST Patient : NATIVIDAD FINCH Plan #: [id number] Group Name: [facility] #: [id number] [facility] CHOICE PLUS Plan Network ID: [id number] : 1960 Gender: Male Relationship: Spouse Address: [address] [place] [address] Plan Begin : 10/28/2012 Subscriber : BLANQUITA Queenie JOSETTE Address: [address] [place] [address] Submitter : ROMINA Submitter Type: Provider General Eligibility Information Status: Active Coverage Coverages -- Select Coverage -- PHONE OPERATORS SUPERVISOR * Telephone Encounter - Cornelia Tracey - 11/30/2021 9:52 AM CST Spoke to patient on the phone. Encouraged patient to contact nurse with any questions. Reviewed the following: Demographics (email, address, phone numbers): No changes Patient contacts: No changes Insurance carriers: The patient confirmed [employer] as primary insurance and Medicare A&B as secondary insurance. I reminded patient of the importance of notifying the transplant center right away of any insurancechanges. Employment status and financial situation: No changes Dialysis: Updated time in [facility]. The patient stated that he did not attend dialysis yesterday due tothe weather conditions. He states that he spoke to the dialysis unit about the possibility of the weather preventing his attendance beforehand. The dialysis unit nurse instructed him to watch his fluid if this was the case, but that he should be fine . He states he notified the unit yesterday as well. He states that he will attend dialysis tomorrow. Weight: Patient self reported being 85 kilos. BMI 23.4. Medical issues (hospitalizations, medical conditions, illnesses, infections, procedures, open wounds, new diagnoses, or positive COVID results): None reported COVID Vaccinations: None reported Social Issues/Questions: None reported PHONE OPERATORS SUPERVISOR documented in this encounter Plan of Treatment Scheduled Procedures Name Priority Associated Diagnoses Date/Ti me TRANSPLANT KIDNEY ESRD (end stage renal disease) ([facility]) documented as of this encounter Visit Diagnoses Not on filedocumented in this encounter Care Teams Solderer Electronic Relationship Specialty Start Date End Date Gerardo Shah MD PCP - General Internal Medicine 09/30/18 Suzette Strickland MD [address] [facility] [address] [place] [address] Referring Physician Nephrology 02/15/20 Rita Tapia, RN [address] [place] [address] Registered Nurse College Sports Coach 02/15/20 documented as of this encounter
--- OUTSIDE RECORDS SUMMARY | 2024-10-16 06:38 | XMS_ITS | Encounter Summary ---
Author Organization [facility] Healthcare Address [address] [place] [address] Care Team Providers Care Junior Engineer Name Role Phone Gerardo Shah MD Primary Care Provider [phone] Suzette Strickland MD Unavailable [phone] Rita Tapia RN Unavailable [phone] Reason for Referral * Diagnostic Imaging (Routine) - Closed Specialty Diagnoses / Procedures Referred By Contac t Referred To Contact Diagnoses 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) (HCC) Procedures XR Chest Pa Lateral 2 Views Tatianna Moyer MD [address] [place] [address] Phone: tel: fax: [facility] [address] [place] [address] Referral ID Status Reason Start Date Expiration Date Visits Re quested Visits Authorized [id number] Closed 04/28/2021 05/28/2022 1 1 * Cardiology (Routine) - Closed Specialty Diagnoses / Procedures Referred By Contac t Referred To Contact Diagnoses 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) (HCC) Procedures ECG 12 lead Tatianna Moyer MD [address] [place] [address] Phone: tel: fax: [address] [address] Referral ID Status Reason Start Date Expiration Date Visits Re quested Visits Authorized [id number] Closed 04/28/2021 05/28/2022 1 1 Reason for Visit * Cardiology (Routine) - Closed Specialty Diagnoses / Procedures Referred By Contac t Referred To Contact Diagnoses 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) (HCC) Procedures ECG 12 lead Tatianna Moyer MD [address] [place] [address] Phone: tel: fax: [address] [phone] Referral ID Status Reason Start Date Expiration Date Visits Re quested Visits Authorized [id number] Closed 04/28/2021 05/28/2022 1 1 Encounter Details Date Type Department Care Team (Latest Contact Info) Description 06/08/2021 7:15 AM CDT - 06/08/2021 7:43 AM CDT Hospital Encounter [facility] [address] [place] [address] Tatianna Moyer MD [address] [facility] [place] [address] Stage 5 chronic kidney disease on chronic [...] on file Legal 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 Gender Identity Not on file Sexual [...] KIDNEY ESRD (end stage renal disease) ([facility]) documented as of this encounter Procedures Procedure Name Priority Date/Time Associated Diagnosis Comments ECG 12-LEAD Routine 06/08/2021 8:01 AM CDT Stage 5 chronic kidney disease on chronic dialysis ([facility]) ([facility]) XR CHEST PA LATERAL 2 VIEWS Schedule Routine, Read Routine (OP Routine) 06/08/2021 7:46 AM CDT Stage 5 chronic kidney disease on chronic dialysis ([facility]) ([facility]) documented in this encounter Results * ECG 12 lead (06/08/2021 8:01 AM CDT) Ventricular Rate EKG/Min 58 BPM [facility] Atrial Rate 58 BPM [facility] AK-Interval (MSEC) 144 ms [facility] QRS-Interval (MSEC) 98 ms [facility] QT-Interval (MSEC) 430 ms [facility] QTc 422 ms [facility] P [place] 68 degrees [facility] R [place] 62 degrees [facility] T [place] 60 degrees [facility] Diagnosis Sinus bradycardia Otherwise normal ECG When compared with ECG of 04-APR-2020 08:26, No significant change was found Confirmed by MADY SNOW M.D ([id number]) on 06/08/2021 3:54:26 PM [facility] 06/08/2021 8:01 AM CDT 06/08/2021 3:54 PM CDT [facility] Randall Moyer MD ECG ORDERABLES nal Result [facility] * XR Chest Pa Lateral 2 Views [...] limits. Electronically signed by: Rubi Patterson M.D. [facility] Randall Moyer MD IMG XR PROCEDURES Final Result documented in this encounter Visit Diagnoses Diagnosis 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) (HCC) documented in this encounter Care Teams Junior Engineer Relationship Specialty Start Date End Date Gerardo Shah MD PCP - General Internal Medicine 09/30/18 Suzette Strickland MD [address] [facility] [address] [place] [address] Referring Physician Nephrology 02/15/20 Rita Tapia, RN [address] [place] [address] Registered Nurse Automotive Software Engineer 02/15/20 documented as of this encounter
--- OUTSIDE RECORDS SUMMARY | 2024-10-16 06:38 | XMS_ITS | Encounter Summary ---
Author Organization [facility] Healthcare Address [address] [place] [address] Care Team Providers Care Propulsion Engineer Name Role Phone Gerardo Shah MD Primary Care Provider [phone] Suzette Strickland MD Unavailable [phone] Rita Tapia RN Unavailable [phone] Encounter Details Date Type Department Care Team (Late st Contact Info) Description 05/05/2021 Documentation [facility] and Transplant Kidney [address] [facility] [address] Mail[address] [phone] [place], [place] [id number] Rita Tapia, RN [address] [place], [place] [phone] Social History Tobacco Use Types Packs/Day Years Used Date Smoking Tobacco: Former Cigarettes 1.5 40 0 04/11/1978 - 2017 Smokeless Tobacco: Never Alcohol Use Standard Drinks/Week Comments Yes 1 (1 standard drink = 0.6 oz pur e alcohol) OCC Sex and Gender Information Value Date Recorded Sex Assigned at Not on file 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 Saved to media. documented in this encounter Plan of Treatment Scheduled Procedures Name Priority Associated Diagnoses Date/Ti me TRANSPLANT KIDNEY ESRD (end stage renal disease) ([facility]) documented as of this encounter Visit Diagnoses Not on filedocumented in this encounter Care Teams Propulsion Engineer Relationship Specialty Start Date End Date Gerardo Shah MD PCP - General Internal Medicine 09/30/18 Suzette Strickland MD [facility] [address] [place] [address] Referring Physician Nephrology 02/15/20 Rita Tapia, RN [address] [place] [address] Registered Nurse Artificial Snow Making Machine Operator 02/15/20 documented as of this encounter
--- OUTSIDE RECORDS SUMMARY | 2024-10-16 06:38 | XMS_ITS | Encounter Summary ---
Author Organization [facility] Healthcare Address [address] [place] [address] Care Team Providers Care Menu Planner Name Role Phone Gerardo Shah MD Primary Care Provider [phone] Suzette Strickland MD Unavailable [phone] Rita Tapia RN Unavailable [phone] Encounter Details Date Type Department Care Team (Late st Contact Info) Description 03/30/2021 3:00 PM CDT Lab [address] [address] ESRD (end stage renal disease) ([facility]) Social History Tobacco Use Types Packs/Day Years Used Date Smoking Tobacco: Former Cigarettes 1.5 40 0 04/11/1978 - 2017 Smokeless Tobacco: Never Alcohol Use Standard Drinks/Week Comments Yes 1 (1 standard drink = 0.6 oz pur e alcohol) OCC Sex and Gender Information Value Date Recorded Sex Assigned at Not on file 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 Gender Identity Not on file Sexual Orientation Straight 05/03/2020 10 :36 AM CDT documented as of this encounter Plan of Treatment Scheduled Procedures Name Priority Associated Diagnoses Date/Ti me TRANSPLANT KIDNEY ESRD (end stage renal disease) ([facility]) documented as of this encounter Procedures Procedure Name Priority Date/Time Associated Diagnosis Comments HLA ANTIBODY SCREEN BY PRA OR SAB PER SCHEDULE (CLASS I AND CLASS II) Routine 03/29/2021 10:00 AM CDT ESRD (end stage renal disease) ([facility]) HLA ANTIBODY SCREEN - SAB (CLASS I AND CLASS II) Routine 03/29/2021 10:00 AM CDT ESRD (end stage renal disease) ([facility]) documented in this encounter Results * HLA Antibody Screen - SAB (Class I and Class II) (03/29/2021 10:00 AM CDT) Class I Treatment EDTA [facility] Class I Dilution 1:1 [facility]OT[facility] Class I Tested Date 04/01/2021 [facility]OT[facility]AC Class I Result Negative [facility]OT[facility] Class I CPRA 0 [facility]OT[facility]AC Class I Low Risk A34; B37 [facility]OT[facility] Class II Treatment EDTA [facility]OT[facility] Class II Dilution 1:1 [facility]OT[facility]AC Class II Tested Date 04/01/2021 HISTOTRAC Class II Result Positive HISTOTRAC Class II Moderate Risk DQA1*06 [facility]OT[facility] Class II Low Risk DPB1*01:01 [facility]OT[facility] 03/29/2021 10:0 0 AM CDT 04/03/2021 9:43 AM CDT Narrative HISTOTRAC - 04/03/2021 9:43 AM CDT Single-antigen HLA antibody screen is performed on serum samples using a method developed and validated by the [facility] HLA laboratory based on an FDA-approved IVD kit (LABScreen Single-Antigen, [employer], [place], [place]). All patient serum samples are pretreated with EDTA before the screen to prevent complement interference. Additional serum treatments, such as adsorption and DTT treatment, may be performed as indicated. ??Interpretive comments: Low risk: MFI [id number]. Moderate risk: MFI [id number]. Increased risk: MFI >/= 5000. The presence [...] antigens to avoid. Testing performed at the [facility], [address] [place] [address], 5th floor, [place], [address]. IA # [id number]. Gracie Rubi M.D., Ph.D., Associate HLA Online Marketing Specialist Harman Flores M.D., Ph.D., HLA Online Marketing Specialist Stan Patel M.D., [place], [facility] Clinical Laboratories Current methodology and interpretive comments last revised on 01/05/2020. Tatianna Moyer MD LAB BLOOD ORDERABL ES Final Result Performing Organization Address [facility] Co de Phone Number HISTOTRAC * HLA Antibody Screen by PRA or SAB per Schedule (Class I and Class II) (03/29/2021 10:00 AM CDT) Blood specimen (specimen) 03/29/2021 10:00 AM CDT Narrative HISTOTRAC - AGRICULTURAL ENGINEERING TEACHER Sample received in lab. ??Single Antigen Antibody Screen ordered. Tatianna Moyer MD LAB BLOOD ORDERABL ES Final Result Performing Organization Address [facility]/State/ZIP Co de Phone Number HISTOTRAC documented in this encounter Visit Diagnoses Diagnosis ESRD (end stage renal disease) (CMS/HCC) (HCC) End stage renal disease documented in this encounter Care Teams Menu Planner Relationship Specialty Start Date End Date Gerardo Shah MD PCP - General Internal Medicine 09/30/18 Suzette Strickland MD [address] [facility] [address] [place] [address] Referring Physician Nephrology 02/15/20 Rita Tapia, RN [address] [place] [address] Registered Nurse Pedigree Tracer 02/15/20 documented as of this encounter
--- OUTSIDE RECORDS SUMMARY | 2024-10-16 06:38 | XMS_ITS | Encounter Summary ---
Author Organization [facility] Healthcare Address [address] [place] [address] Care Team Providers Care Road Marker Name Role Phone Gerardo Shah MD Primary Care Provider [phone] Suzette Strickland MD Unavailable [phone] Rita Tapia RN Unavailable [phone] Encounter Details Date Type Department Care Team (Late st Contact Info) Description 12/08/2021 3:05 PM CABIN CREW Lab [address] [address] ESRD (end stage renal disease) ([facility]/HCC) ([facility]) Social History Tobacco Use Types Packs/Day Years Used Date Smoking Tobacco: Former Cigarettes 1.5 40 0 04/11/1978 - 2017 Smokeless Tobacco: Never Alcohol Use Standard Drinks/Week Comments Yes 1 (1 standard drink = 0.6 oz pur e alcohol) OCC Sex and Gender Information Value Date Recorded Sex Assigned at Not on file 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 Gender Identity Not on file Sexual Orientation Straight 05/03/2020 10 :36 AM CDT documented as of this encounter Plan of Treatment Scheduled Procedures Name Priority Associated Diagnoses Date/Ti me TRANSPLANT KIDNEY ESRD (end stage renal disease) ([facility]) documented as of this encounter Procedures Procedure Name Priority Date/Time Associated Diagnosis Comments HLA ANTIBODY SCREEN BY PRA OR SAB PER SCHEDULE (CLASS I AND CLASS II) Routine 12/06/2021 9:30 AM CABIN CREW ESRD (end stage renal disease) (CMS/HCC) (HCC) HLA ANTIBODY SCREEN - SAB (CLASS I AND CLASS II) Routine 12/06/2021 9:30 AM CABIN CREW ESRD (end stage renal disease) (CMS/HCC) (HCC) documented in this encounter Results * HLA Antibody Screen - SAB (Class I and Class II) (12/06/2021 9:30 AM CABIN CREW) Class I Treatment EDTA HISTOTRAC Class I Dilution 1:1 HISTOTRAC Class I Tested Date 12/10/2021 HISTOTRAC Class I Result Negative HISTOTRAC Class I CPRA 0 HISTOTRAC Class I Low Risk A34; B37 HISTOTRAC Class II Treatment EDTA HISTOTRAC Class II Dilution 1:1 HISTOTRAC Class II Tested Date 12/10/2021 HISTOTRAC Class II Result Positive HISTOTRAC Class II Moderate Risk DQA1*06 HISTOT[facility]AC Class II Low Risk DP1 [facility]OT[facility] 12/06/2021 9:30 AM CABIN CREW 12/12/2021 9:04 AM CABIN CREW Narrative HISTOTRAC - 12/12/2021 9:04 AM CABIN CREW Single-antigen HLA antibody screen is performed on serum samples using a method developed and validated by the [facility] HLA laboratory based on an FDA-approved IVD kit (LABScreen Single-Antigen, [employer], [place], [place]). All patient serum samples are pretreated with EDTA before the screen to prevent complement interference. Additional serum treatments, such as adsorption and DTT treatment, may be performed as indicated. ??Interpretive comments: Low risk: MFI [id number]. Moderate risk: MFI [id number]. Increased risk: MFI >/= 5000. The presence [...] antigens to avoid. Testing performed at the [facility], [address] [place] [address], 5th floor, [place], [address]. CLIA # [id number]. Gracie Rubi M.D., Ph.D., Associate HLA Superintendent Drilling And Production Harman Flores M.D., Ph.D., HLA Superintendent Drilling And Production Aviva Conway, Ph.D., Turn Out, [facility] Clinical Laboratories Current methodology and interpretive comments last revised on 01/05/2020. Tatianna Moyer MD LAB BLOOD ORDERABL ES Final Result HISTOTR[facility] * HLA Antibody Screen by PRA or SAB per Schedule (Class I and Class II) (12/06/2021 9:30 AM CABIN CREW) Blood specimen (specimen) 12/06/2021 9:30 AM CABIN CREW Narrative HISTOTRAC - CABIN CREW Sample received in lab. ??Single Antigen Antibody Screen ordered. Tatianna Moyer MD LAB BLOOD ORDERABL ES Final Result [facility] documented in this encounter Visit Diagnoses Diagnosis ESRD (end stage renal disease) (CMS/HCC) (HCC) End stage renal disease documented in this encounter Care Teams Road Marker Relationship Specialty Start Date End Date Gerardo Shah MD PCP - General Internal Medicine 09/30/18 Suzette Strickland MD [address] [facility] [address] [place] [address] Referring Physician Nephrology 02/15/20 Rita Tapia, RN [address] [place] [address] Registered Nurse Baker Bread 02/15/20 documented as of this encounter
--- OUTSIDE RECORDS SUMMARY | 2024-10-16 06:38 | XMS_ITS | Encounter Summary ---
Author Organization [facility] Healthcare Address [address] [place] [address] Care Team Providers Care Scientific Informatics Project Leader Name Role Phone Gerardo Shah MD Primary Care Provider [phone] Suzette Strickland MD Unavailable [phone] Rita Tapia RN Unavailable [phone] Encounter Details Date Type Department Care Team (Late st Contact Info) Description 04/27/2021 Telephone [facility] Transplant Kidney [address] [facility] [address] Mailstop [phone] [place], [place] [phone] Rita Tapia RN [address], [place] [phone] Social History Tobacco Use Types Packs/Day Years Used Date Smoking Tobacco: Former Cigarettes 1.5 40 0 04/11/1978 - 2017 Smokeless Tobacco: Never Alcohol Use Standard Drinks/Week Comments Yes 1 (1 standard drink = 0.6 oz pur e alcohol) OCC Sex and Gender Information Value Date Recorded Sex Assigned at Not on file 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 Spoke with mother in law that answered the phone and saidhe was not at home right now but she took my number and is going to have him call me back. documented in this encounter Plan of Treatment Scheduled Procedures Name Priority Associated Diagnoses Date/Ti me TRANSPLANT KIDNEY ESRD (end stage renal disease) ([facility]) documented as of this encounter Visit Diagnoses Not on filedocumented in this encounter Care Teams Scientific Informatics Project Leader Relationship Specialty Start Date End Date Gerardo Shah MD PCP - General Internal Medicine 09/30/18 Suzette Strickland MD [address] [facility] [address] [place] [address] Referring Physician Nephrology 02/15/20 Rita Tapia, RN [address] [place] [address] Registered Nurse Cargo Router 02/15/20 documented as of this encounter
--- OUTSIDE RECORDS SUMMARY | 2024-10-16 06:38 | XMS_ITS | Encounter Summary ---
Author Organization [facility] Healthcare Address [address] [place] [address] Care Team Providers Care Medical Review Coordinator Name Role Phone Gerardo Shah MD Primary Care Provider [phone] Suzette Strickland MD Unavailable [phone] Rita Tapia RN Unavailable [phone] Encounter Details Date Type Department Care Team (Late st Contact Info) Description 11/08/2021 7:05 PM RUG MEASURER Lab [address] [address] ESRD (end stage renal disease) ([facility]) ([facility]) Social History Tobacco Use Types Packs/Day Years Used Date Smoking Tobacco: Former Cigarettes 1.5 40 0 04/11/1978 - 2017 Smokeless Tobacco: Never Alcohol Use Standard Drinks/Week Comments Yes 1 (1 standard drink = 0.6 oz pur e alcohol) OCC Sex and Gender Information Value Date Recorded Sex Assigned at Not on file 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 Gender Identity Not on file Sexual Orientation Straight 05/03/2020 10 :36 AM CDT documented as of this encounter Plan of Treatment Scheduled Procedures Name Priority Associated Diagnoses Date/Ti me TRANSPLANT KIDNEY ESRD (end stage renal disease) (CMS/[facility]) documented as of this encounter Procedures Procedure Name Priority Date/Time Associated Diagnosis Comments HLA ANTIBODY SCREEN BY PRA OR SAB PER SCHEDULE (CLASS I AND CLASS II) Routine 11/06/2021 8:00 AM RUG MEASURER ESRD (end stage renal disease) (CMS/HCC) (HCC) HLA ANTIBODY SCREEN - SAB (CLASS I AND CLASS II) Routine 11/06/2021 8:00 AM RUG MEASURER ESRD (end stage renal disease) (CMS/HCC) (HCC) documented in this encounter Results * HLA Antibody Screen - SAB (Class I and Class II) (11/06/2021 8:00 AM RUG MEASURER) Class I Treatment EDTA [facility] Class I Dilution 1:1 [facility] Class I Tested Date 11/09/2021 [facility]OT[facility] Class I Result Negative [facility] Class I CPRA 0 [facility] Class I Low Risk A34; B37 [facility] Class II Treatment EDTA [facility] Class II Dilution 1:1 [facility] Class II Tested Date 11/09/2021 [facility]OT[facility]AC Class II Result Positive [facility] Class II Moderate Risk DQA1*06; DPB1*01:01 [facility] 11/06/2021 8:00 AM RUG MEASURER 11/10/2021 2:01 PM RUG MEASURER Narrative HISTOTRAC - 11/10/2021 2:01 PM RUG MEASURER Single-antigen HLA antibody screen is performed on serum samples using a method developed and validated by the [facility] laboratory based on an FDA-approved IVD kit (LABScreen Single-Antigen, [employer], [place], [place]). All patient serum samples are pretreated with EDTA before the screen to prevent complement interference. Additional serum treatments, such as adsorption and DTT treatment, may be performed as indicated. ??Interpretive comments: Low risk: MFI 3960-8072. Moderate risk: MFI 3920-3540. Increased risk: MFI >/= 5000. The presence [...] to avoid. Testing performed at the [facility], [address] [place] [address], 5th floor, [place], [address]. [place] # [id number]. Gracie Rubi M.D., Ph.D., Associate HLA Balcony Worker Harman Flores M.D., Ph.D., HLA Balcony Worker Stan Patel M.D., Arch Support Technician, [facility] Current methodology and interpretive comments last revised on 01/05/2020. Tatianna Moyer MD LAB BLOOD ORDERABL ES Final Result Performing Organization Address City/[facility] Co de Phone Number HISTOTR[facility] * HLA Antibody Screen by PRA or SAB per Schedule (Class I and Class II) (11/06/2021 8:00 AM RUG MEASURER) Blood specimen (specimen) 11/06/2021 8:00 AM RUG MEASURER Narrative [facility]ISTOT[facility] - RUG MEASURER Sample received in lab. ??Single Antigen Antibody Screen ordered. Tatianna Moyer MD LAB BLOOD ORDERABL ES Final Result [facility]OT[facility] documented in this encounter Visit Diagnoses Diagnosis ESRD (end stage renal disease) (CMS/HCC) (HCC) End stage renal disease documented in this encounter Care Teams Medical Review Coordinator Relationship Specialty Start Date End Date Gerardo Shah MD PCP - General Internal Medicine 09/30/18 Suzette Strickland MD [address] [facility] [address] [place] [address] Referring Physician Nephrology 02/15/20 Rita Tapia, RN [address] [place] [address] Registered Nurse Cost Accounting Analyst 02/15/20 documented as of this encounter
--- OUTSIDE RECORDS SUMMARY | 2024-10-16 06:38 | XMS_ITS | Encounter Summary ---
Author Organization [facility] Healthcare Address [address] [place] [address] Care Team Providers Care Computer Operations Analyst Name Role Phone Gerardo Shah MD Primary Care Provider [phone] Suzette Strickland MD Unavailable [phone] Rita Tapia RN Unavailable [phone] Reason for Visit * Reason Onset Date Comments Waitlist Maintenance 01/17/2021 Encounter Details Date Type Department Care Team (Late st Contact Info) Description 01/17/2021 Documentation [facility] and [facility] Transplant Kidney [address] [facility] [address] [phone] [place] [address] Anjelica Saenz RN [address] [facility] [address] [place] [address] Waitlist Maintenance Social History Tobacco Use Types Packs/Day Years Used Date Smoking Tobacco: Former Cigarettes 1.5 40 0 04/11/1978 - 2017 Smokeless Tobacco: Never Alcohol Use Standard Drinks/Week Comments Yes 1 (1 standard drink = 0.6 oz pur e alcohol) OCC Sex and Gender Information Value Date Recorded Sex Assigned at Not on file 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 Copy was saved into Media. Dialysis start date added to Epic. documented in this encounter Plan of Treatment Scheduled Procedures Name Priority Associated Diagnoses Date/Ti me TRANSPLANT KIDNEY ESRD (end stage renal disease) ([facility]) documented as of this encounter Visit Diagnoses Not on filedocumented in this encounter Care Teams Computer Operations Analyst Relationship Specialty Start Date End Date Gerardo Shah MD PCP - General Internal Medicine 09/30/18 Suzette Strickland MD [facility] [address] [place] [address] Referring Physician Nephrology 02/15/20 Rita Tapia, RN [address] [place], [place] [id number] Registered Nurse Vibrator Operator 02/15/20 documented as of this encounter
--- OUTSIDE RECORDS SUMMARY | 2024-10-16 06:38 | XMS_ITS | Encounter Summary ---
Author Organization [facility] Healthcare Address [address] [place] [address] Care Team Providers Care Time Analysis Clerk Name Role Phone Gerardo Shah MD Primary Care Provider [phone] Suzette Strickland MD Unavailable [phone] Rita Tapia RN Unavailable [phone] Reason for Referral * Diagnostic Imaging (Routine) - Closed Specialty Diagnoses / Procedures Referred By Contac t Referred To Contact Radiology Diagnoses Malignant neoplasm of right kidney (HCC) Polycystic kidney disease, autosomal dominant Procedures MRI Abdomen Kidney WO Contrast Marc Khan MD [address] [facility] [id number] [place] [address] Phone: tel: fax: [facility] [address] [place] [address] Referral ID Status Reason Start Date Expiration Date Visits Re quested Visits Authorized [id number] Closed 09/07/2020 10/07/2021 1 1 ALT PAVING SUPERVISOR Reason for Visit * Diagnostic Imaging (Routine) - Closed Specialty Diagnoses / Procedures Referred By Contac t Referred To Contact Radiology Diagnoses Malignant neoplasm of right kidney (HCC) Polycystic kidney disease, autosomal dominant Procedures MRI Abdomen Kidney WO Contrast Marc Khan MD [address] [facility] [id number] [place] [address] Phone: tel: fax: [facility] [address] [facility] [place] [address] Referral ID Status Reason Start Date Expiration Date Visits Re quested Visits Authorized [id number] Closed 09/07/2020 10/07/2021 1 1 Encounter Details Date Type Department Care Team (Late st Contact Info) Description 09/07/2021 11:14 AM ASPHALT PAVING SUPERVISOR - 09/07/2021 11:59 PM ASPHALT PAVING SUPERVISOR Hospital Encounter [facility] [address] [place] [address] Marc Khan MD [address] [facility] [id number] [place] [address] Malignant neoplasm of right kidney (CMS/HCC) (HCC); Polycystic kidney disease, autosomal dominant Discharge Disposition: Discharge to home or self [...] on file Legal Sex Male 4:54 AM ASPHALT PAVING SUPERVISOR Gender Identity Not on file Sexual [...] TABLET BY MOUTH EVERY MORNING 90 tablet 1 06/26/2021 2 metoprolol tartrate (LOPRESSOR) 25 mg immediate [...] CONTRAST Schedule Routine, Read Routine (OP Routine) 09/07/2021 1:05 PM ASPHALT PAVING SUPERVISOR Malignant neoplasm of right kidney (CMS/HCC) (HCC) Polycystic kidney disease, autosomal dominant documented in this encounter Results * MRI Abdomen Kidney WO Contrast (09/07/2021 1:05 PM ASPHALT PAVING SUPERVISOR) Anatomical Region Laterality Modality Body N/A Magnetic Resonan ce 09/07/2021 2:54 PM ASPHALT PAVING SUPERVISOR Impressions 09/07/2021 3:28 PM ASPHALT PAVING SUPERVISOR 1. Postsurgical changes of right nephrectomy without evidence of residual recurrent disease within the abdomen. 2. Findings of polycystic kidney and liver disease without suspicious solid liver or kidney lesion on this noncontrast examination. Dictated by: Rj Peck M.D. The radiology attending physician has personally reviewed this study, and had reviewed and/or edited this written report and agrees with it. Electronically signed by: Chris Santana M.D. 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 Protocol: Kidney COMPARISON: 09/07/2020 FINDINGS: Liver: Mild hepatic steatosis. ?? - Bile ducts: No intrahepatic or extrahepatic biliary dilation. - Focal liver lesions: Multiple simple appearing cysts are seen throughout the liver. No suspicious focal liver lesions. Gallbladder: Normal Pancreas: Normal Spleen: Normal Adrenals: Normal Kidneys: Postsurgical changes of right nephrectomy without nodularity in the surgical bed. Innumerable cysts within the left kidney are compatible with polycystic kidney disease. Intrinsic T1 hyperintensity within cysts likely represent hemorrhagic cysts. Other Findings: No lymphadenopathy within the abdomen. ??No suspicious osseous lesions. Wedging of the upper lumbar spine is unchanged from CT 04/04/2020 The visualized portions of the bowel are nondilated and there is no focal wall thickening. The lung bases are clear. The visualized aorta and branch vessels are patent. 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 Protocol: Kidney COMPARISON: 09/07/2020 FINDINGS: Liver: Mild hepatic steatosis. - Bile ducts: No intrahepatic or extrahepatic biliary dilation. - Focal liver lesions: Multiple simple appearing cysts are seen throughout the liver. No suspicious focal liver lesions. Gallbladder: Normal Pancreas: Normal Spleen: Normal Adrenals: Normal Kidneys: Postsurgical changes of right nephrectomy without nodularity in the surgical bed. Innumerable cysts within the left kidney are compatible with polycystic kidney disease. Intrinsic T1 hyperintensity within cysts likely represent hemorrhagic cysts. Other Findings: No lymphadenopathy within the abdomen. No suspicious osseous lesions. Wedging of the upper lumbar spine is unchanged from CT 04/04/2020 The visualized portions of the bowel are nondilated and there is no focal wall thickening. The lung bases are clear. The visualized aorta and branch vessels are patent. IMPRESSION: 1. Postsurgical changes of right nephrectomy without evidence of residual recurrent disease within the abdomen. 2. Findings of polycystic kidney and liver disease without suspicious solid liver or kidney lesion on this noncontrast examination. Dictated by: Rj Peck M.D. The radiology attending physician has personally reviewed this study, and had reviewed and/or edited this written report and agrees with it. Electronically signed by: Chris Santana M.D. Marc Khan MD IM MRI PROCEDURES Final Result documented in this encounter Visit Diagnoses Diagnosis Malignant neoplasm of right kidney (HCC) Polycystic kidney disease, autosomal dominant Congenital polycystic kidney, autosomal dominant documented in this encounter Care Teams Time Analysis Clerk Relationship Specialty Start Date End Date Gerardo Shah MD PCP - General Internal Medicine 09/30/18 Suzette Strickland MD [address] [facility] [address] [place] [address] Referring Physician Nephrology 02/15/20 Rita Tapia, RN [address] [place], [place] [id number] Registered Nurse Record Producer 02/15/20 documented as of this encounter
--- OUTSIDE RECORDS SUMMARY | 2024-10-16 06:38 | XMS_ITS | Encounter Summary ---
Author Organization [facility] Address [address] [place] [address] Phone Care Team Providers Care Registered Nurse Obstetrics Name Role Phone Gerardo Shah MD Primary Care Provider [phone] Suzette Strickland MD Unavailable [phone] Rita Tapia RN Unavailable [phone] Reason for Referral * MRI/CAT/PET Scan (Routine) - Closed Specialty Diagnoses / Procedures Referred By Kishore elkins Referred To Contact Radiology Diagnoses Malignant neoplasm of right kidney (HCC) Procedures MRI Abdomen Kidney WO Contrast Jose L Reed DO Phone: tel: fax: [address] [address] Referral ID Status Reason Start Date Expiration Date Visits Re quested Visits Authorized [id number] Closed 09/07/2021 10/07/2022 1 1 BUILDER SUPERVISOR Reason for Visit * Reason Comments Follow-up ESRD * Consultation (Routine) - Canceled Specialty Diagnoses / Procedures Referred By Kishore elkins Referred To Contact Urology Diagnoses Polycystic kidney disease Gerardo Shah MD Phone: tel: fax: Referral ID Status Reason Start Date Expiration Date Visits Requested Visits Authorized [id number] Canceled Specialty Services Required 04/28/2020 11/07/2021 99 99 Encounter Details Date Type Department Care Team (Late st Contact Info) Description 09/07/2021 1:20 PM TANK BUILDER SUPERVISOR Office Visit [facility] Medicine ([facility]) - [facility] Urology [address]th [place] [address] [place] [address] [place] [address] [address] Malignant neoplasm of right kidney (CMS/HCC) (HCC) (Primary Dx); Polycystic kidney disease, autosomal dominant; End-stage renal disease (ESRD) (CMS/HCC) (HCC) Social History Tobacco Use Types Packs/Day Years Used Date Smoking Tobacco: Former Cigarettes 1.5 40 0 04/11/1978 - 2017 Smokeless Tobacco: Never Alcohol Use Standard Drinks/Week Comments Yes 1 (1 standard drink = 0.6 oz pur e alcohol) OCC Sex and Gender Information Value Date Recorded Sex Assigned at Not on file Legal Sex Male 4:54 AM TANK BUILDER SUPERVISOR Gender Identity Not on file Sexual Orientation Straight 05/03/2020 10 :36 AM CDT documented as of this encounter Last Filed Vital Signs Vital Sign Reading Time Taken Comments Blood Pressure - - Pulse - - Temperature 36.3 ??C (97.4 ??F) 09/07/2021 1:21 PM CS T Respiratory Rate - - Oxygen Saturation - - Inhaled Oxygen Concentration - - Weight - - Height - - Body Mass Index - - documented in this encounter Progress Notes * Jose L Reed DO - 09/07/2021 1:20 PM CST Images from the original note were not included. DEPARTMENT OF SURGERY, DIVISION OF UROLOGY OFFICE PROGRESS NOTE Chief complaint: Chief Complaint Patient presents with ??? Follow-up ESRD History of present illness: Abel Browne is a 61 y.o. male with a history of ADPCKD. Patient Dr. Juarez and [place]. 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 09/07/2021:?? Here for follow-up. He has been doing well. He walks 5 miles a day. He feels better than he had one year ago. He is on dialysis Saturday uncomplicated. He has not been smoking on for years. No trouble with his incisions. He had an MRI today. ?? Allergies as of 09/07/2021 ??? (No Known Allergies) Current Outpatient Medications: ??? acetaminophen 500 mg [...] BY MOUTH EVERY MORNING, Disp: 90 tablet, Rfl:1 ??? aspirin 81 mg tablet, Take 81 [...] minutes as needed , Disp: , Rfl: Past Medical History: Diagnosis Date ??? Anemia of chronic disease ??? Arthritis ??? Asthma ??? Bradycardia ??? CKD (chronic kidney disease) ??? COPD (chronic obstructive pulmonary disease) (CMS/HCC) (HCC) mild ??? GERD (gastroesophageal reflux disease) ??? Heart attack (CMS/HCC) (HCC) 09/2018 ??? Hiatal hernia ??? Pneumonia ??? Polycystic kidney disease ??? PONV (postoperative nausea and vomiting) Past Surgical History: Procedure Laterality Date ??? CARDIAC CATHETERIZATION 2018 ??? COLONOSCOPY 03/2020 ??? NEPHRECTOMY 05/2020 ??? OTHER SURGICAL HISTORY 1973 Ureteral surgery Family History Problem Relation Age of Onset ??? Aneurysm Mother ??? Kidney disease Mother ??? Cancer Father ??? Kidney disease Sister ??? PONV Sister ??? Anesthesia problems Neg Hx Social History Socioeconomic History ??? Marital status: Spouse name: Not on file ??? Number of children: Not on file ??? Years of education: Not on file ??? Highest education level: Not on file Occupational History ??? Not on file Tobacco Use ??? Smoking status: Former Smoker Packs/day: 1.50 Years: 40.00 Pack years: 60.00 Types: Cigarettes Start date: 04/11/1978 Quit date: 2017 Years since quittin.8 ??? Smokeless tobacco: Never Used Vaping Use ??? Vaping Use: Never used Substance and Sexual Activity ??? Alcohol use: Yes Alcohol/week: 1.0 standard drink Types: 1 Cans of beer per week Comment: OCC ??? Drug use: No ??? Sexual activity: Defer Other Topics Concern ??? Not on file Social History Narrative ??? Not on file Social Determinants of Health Financial Resource Strain: Not on file Food Insecurity: Not on file Transportation Needs: Not on file Physical Activity: Not on file Stress: Not on file Social Connections: Not on file Intimate Partner Violence: Not on file Housing Stability: Not on file Review of Systems: Gastrointestinal: negative for abdominal pain, change in bowel habits, dyspepsia, dysphagia, melenaand nausea Genitourinary: Negative for flank pain Physical Exam: Vitals: 09/07/21 1321 Temp: 36.3 ??C (97.4 ??F) General: does not appear in acute distress; no pain present Head: normocephalic/atraumatic Eyes: no discharge noted; (R,L) extraocular movements are intact; visual field normal Ears: (R,L) hearing grossly normal Nose/Mouth/Throat: mucous membranes moist Neck: neck inspection is normal; neck ROM normal Respiratory: has normal respiratory effort, non labored Cardiac: normal heart rate present Gastrointestinal: nonobese, abdominal appearance is normal; incisions are well healed. No evidence of hernia. This skin of the right lower quadrant incision is quite tethered but otherwise is not concerning Exam: no dang, Extremities: (R,L) pink and warm; no edema Musculoskeletal: normal range of motion present Neurology: patient is alert; no gross neurologic deficits Mood: has normal mood and affect Objective: Labs Reviewed Lab Results Component Value Date CREATININE 4.92 (H) 06/08/2021 Lab Results Component Value Date PSA 1.20 06/08/2021 Additional Labs: UA: Lab Results Component Value Date DOUG 5.0 09/07/2020 RBCU 0-2 04/04/2020 UROBILINOGEN <2.0 04/04/2020 NITRITEU Negative 04/04/2020 KETONESU Negative 09/07/2020 KETONESU Negative 04/04/2020 MRI Abdomen Kidney WO Contrast Narrative: EXAMINATION: MAGNETIC RESONANCE IMAGING OF THE ABDOMEN [...] visualized aorta and branch vessels are patent. Impression: 1. Postsurgical changes of right nephrectomy without evidence of residual recurrent disease within the abdomen. 2. Findings of polycystic kidney and liver disease without suspicious solid liver or kidney lesion given noncontrast technique. Dictated by: Rj ePck M.D. Lab/Radiology/Diagnostic Review: I have independently visually inspected the MRI images from 09/07/2021. It shows cystic left kidneyas well as liver. No obvious masses. No obvious recurrence from the right nephrectomy bed.. Available records within the EMR were reviewed including Care Everywhere. Orders: Orders Placed This Encounter ??? MRI Abdomen Kidney WO Contrast Standing Status: Future Standing Expiration Date: 03/07/2023 Order Specific Question: Clinical question to be answered: Answer: history of papillary RCC Order Specific Question: Is patient claustrophobic? Answer: No Order Specific Question: Is patient able to lie flat for at least one hour? Answer: Yes Order Specific Question: Where should this order be performed? Answer: [facility] [152] Order Specific Question: Does the patient have a cardiovascular implantable electronic device, pacemaker, or implantable cardioverter-defibrillator? Answer: Unknown Order Specific Question: Does the patient require anesthesia? Answer: No Order Specific Question: Does the patient have a programmable shunt? Answer: Unknown Assessment: Abel Browne is a 61 y.o. male with a history of autosomal dominant polycystic kidney disease status post right nephrectomy with Dr. Khan in May 2020. This showed a focus of 1 cm papillary renal cell carcinoma pT1aNx. He is on dialysis Saturday at this point. He is on the transplant list. He is very active walking 5 miles a day. He otherwise is in good spirits in feels healthy. Plan: 1. Return to clinic in one year with MRI without contrast prior Thank you for allowing me to participate in the care of Abel Browne. Please call me with questions or concerns. Jose L Reed DO, MBA Panel Wirer of Urology [facility] For appointments: [phone] My bilingual office assistant: [phone] For after hours emergencies: [phone] This note was written using a voice recognition system hardware device. Please note there may be variance in spelling, grammar, and syntax because of the voice recognition system hardware. Not every sentence has been reviewed in its entirety and if there are any concerns about the above please contact Dr. Reed directly at [phone]. BUILDER SUPERVISOR documented in this encounter Plan of Treatment Scheduled Procedures Name Priority Associated Diagnoses Date/Ti me TRANSPLANT KIDNEY ESRD (end stage renal disease) ([facility]) documented as of this encounter Results * MRI Abdomen Kidney WO Contrast (09/11/2022 8:40 AM TANK BUILDER SUPERVISOR) Anatomical Region Laterality Modality Body N/A Magnetic Resonan ce 09/11/2022 9:58 AM TANK BUILDER SUPERVISOR Impressions 09/11/2022 9:58 AM TANK BUILDER SUPERVISOR 1. Postsurgical changes from right nephrectomy with no noncontrast MR evidence of locally recurrent tumor. 2. Unchanged findings of polycystic liver and kidney disease. Electronically signed by: Vanessa Kirkland M.D. Narrative 09/11/2022 9:58 AM TANK BUILDER SUPERVISOR EXAMINATION: MAGNETIC RESONANCE IMAGING OF THE [...] Vanessa Kirkland M.D. Jose L Reed DO IM MRI PROCEDURES Final Result documented in this encounter Visit Diagnoses Diagnosis Malignant neoplasm of right kidney (HCC)- Primary Polycystic kidney disease, autosomal dominant Congenital polycystic kidney, autosomal dominant End-stage renal disease (ESRD) (CMS/HCC) (HCC) Malignant neoplasm of right kidney (HCC) documented in this encounter Care Teams Registered Nurse Obstetrics Relationship Specialty Start Date End Date Gerardo Shah MD PCP - General Internal Medicine 09/30/18 Suzetet Strickland MD [address] [facility] [address] [place] [address] Referring Physician Nephrology 02/15/20 Rita Tapia, RN [address] [place] [address] Registered Nurse Inward Toll Operator 02/15/20 documented as of this encounter
--- OUTSIDE RECORDS SUMMARY | 2024-10-16 06:38 | XMS_ITS | Encounter Summary ---
Author Organization [facility] Healthcare Address [address] [place] [address] Care Team Providers Care Upholsterer Inside Name Role Phone Gerardo Shah MD Primary Care Provider [phone] Suzette Strickland MD Unavailable [phone] Rita Tapia RN Unavailable [phone] Encounter Details Date Type Department Care Team (Late st Contact Info) Description 11/13/2021 2:20 PM ELEVATOR SERVICE TECHNICIAN Lab [address] [address] Social History Tobacco Use Types Packs/Day Years Used Date Smoking Tobacco: Former Cigarettes 1.5 40 0 04/11/1978 - 2017 Smokeless Tobacco: Never Alcohol Use Standard Drinks/Week Comments Yes 1 (1 standard drink = 0.6 oz pur e alcohol) OCC Sex and Gender Information Value Date Recorded Sex Assigned at Not on file Legal Sex Male 4:54 AM ELEVATOR SERVICE TECHNICIAN Gender Identity Not on file Sexual Orientation Straight 05/03/2020 10 :36 AM CDT documented as of this encounter Plan of Treatment Scheduled Procedures Name Priority Associated Diagnoses Date/Ti me TRANSPLANT KIDNEY ESRD (end stage renal disease) (CMS/HCC) documented as of this encounter Visit Diagnoses Not on filedocumented in this encounter Care Teams Upholsterer Inside Relationship Specialty Start Date End Date Gerardo Shah MD PCP - General Internal Medicine 09/30/18 Suzette Strickland MD [address] [facility] [address] [place] [address] Referring Physician Nephrology 02/15/20 Rita Tapia, RN [address] [place], [place] [id number] Registered Nurse Manager Instrumentation 02/15/20 documented as of this encounter
--- OUTSIDE RECORDS SUMMARY | 2024-10-16 06:38 | XMS_ITS | Encounter Summary ---
Author Organization [facility] Healthcare Address [address] [place] [address] Care Team Providers Care Valve Mechanic Name Role Phone Gerardo Shah MD Primary Care Provider [phone] Suzette Strickland MD Unavailable [phone] Rita Tapia RN Unavailable [phone] Encounter Details Date Type Department Care Team (Late st Contact Info) Description 07/14/2021 12:20 PM CDT Lab [address] [address] ESRD (end stage renal disease) ([facility]/HCC) ([facility]) Social History Tobacco Use Types Packs/Day Years Used Date Smoking Tobacco: Former Cigarettes 1.5 40 0 04/11/1978 - 2017 Smokeless Tobacco: Never Alcohol Use Standard Drinks/Week Comments Yes 1 (1 standard drink = 0.6 oz pur e alcohol) OCC Sex and Gender Information Value Date Recorded Sex Assigned at Not on file Legal Sex Male 4:54 AM MANAGEMENT ADVISOR Gender Identity Not on file Sexual [...] SCHEDULE (CLASS I AND CLASS II) Routine 07/12/2021 10:00 AM CDT ESRD (end stage renal disease) (CMS/HCC) (HCC) documented in this encounter Results * HLA Antibody Screen by PRA or SAB per Schedule (Class I and Class II) (07/12/2021 10:00 AM CDT) Blood specimen (specimen) 07/12/2021 10:00 AM CDT Narrative HISTOT[facility] - MANAGEMENT ADVISOR Sample received in lab and stored. ??No testing performed at this time. us Tatianna Moyer MD LAB BLOOD ORDERABL ES Final Result [facility] documented in this encounter Visit Diagnoses Diagnosis ESRD (end stage renal disease) (CMS/HCC) ([facility]) End stage renal disease documented in this encounter Care Teams Valve Mechanic Relationship Specialty Start Date End Date Gerardo Shah MD PCP - General Internal Medicine 09/30/18 Suzette Strickland MD [address] [facility] [address] [address] Referring Physician Nephrology 02/15/20 Rita Tapia, RN [address] [place] [address] Registered Nurse Receiver Bulk System 02/15/20 documented as of this encounter
--- OUTSIDE RECORDS SUMMARY | 2024-10-16 06:38 | XMS_ITS | Encounter Summary ---
Author Organization [facility] Healthcare Address [address] [place] [address] Care Team Providers Care Boat Carpenter Mechanic Name Role Phone Gerardo Shah MD Primary Care Provider [phone] Suzette Strickland MD Unavailable [phone] Rita Tapia RN Unavailable [phone] Encounter Details Date Type Department Care Team (Late st Contact Info) Description 02/07/2021 2:50 PM CDT Lab [address] [address] ESRD (end stage renal disease) ([facility]) Social History Tobacco Use Types Packs/Day Years Used Date Smoking Tobacco: Former Cigarettes 1.5 40 0 04/11/1978 - 2017 Smokeless Tobacco: Never Alcohol Use Standard Drinks/Week Comments Yes 1 (1 standard drink = 0.6 oz pur e alcohol) OCC Sex and Gender Information Value Date Recorded Sex Assigned at Not on file Legal Sex Male 4:54 AM PHYSICIAN EXTENDER Gender Identity Not on file Sexual Orientation Straight 05/03/2020 10 :36 AM CDT documented as of this encounter Plan of Treatment Scheduled Procedures Name Priority Associated Diagnoses Date/Ti me TRANSPLANT KIDNEY ESRD (end stage renal disease) ([facility]) documented as of this encounter Procedures Procedure Name Priority Date/Time Associated Diagnosis Comments HLA ANTIBODY SCREEN BY PRA Routine 02/06/2021 10:00 AM CDT ESRD (end stage renal disease) ([facility]) documented in this encounter Results * Collection Task for HLA Antibody Screen (02/06/2021 10:00 AM CDT) HLA Antibody Screen by PRA Pedro ASTORGA Blood specimen (specimen) 02/06/2021 10:00 AM CDT 02/07/2021 4:11 PM CDT us Tatianna Moyer MD LAB BLOOD ORDERABL ES Final Result [facility] Department [place] [address] documented in this encounter Visit Diagnoses Diagnosis ESRD (end stage renal disease) (CMS/HCC) ([facility]) End stage renal disease documented in this encounter Care Teams Boat Carpenter Mechanic Relationship Specialty Start Date End Date Gerardo Shah MD PCP - General Internal Medicine 09/30/18 Suzette Strickland MD [address] [facility] [address] [place] [address] Referring Physician Nephrology 02/15/20 Rita Tapia, RN [address] [place] [address] Registered Nurse Pumping Plant Operator 02/15/20 documented as of this encounter
--- OUTSIDE RECORDS SUMMARY | 2024-10-16 06:39 | XMS_ITS | Encounter Summary ---
Author Organization [facility] Healthcare Address [address] [place] [address] Care Team Providers Care Slip Operator Name Role Phone Gerardo Shah MD Primary Care Provider [phone] Suzette Strickland MD Unavailable [phone] Rita Tapia RN Unavailable [phone] Reason for Referral * Diagnostic Imaging (Routine) - Closed Specialty Diagnoses / Procedures Referred By Contac t Referred To Contact Radiology Diagnoses Renal cell carcinoma of right kidney (HCC) Procedures MRI Abdomen Kidney WO Contrast Marc Khan MD [address] [facility] [id number] [place] [address] Phone: tel: fax: [facility] [address] [place] [address] Referral ID Status Reason Start Date Expiration Date Visits Re quested Visits Authorized [id number] Closed 08/08/2020 09/07/2021 1 1 AND NUTRITION SUPERVISOR Reason for Visit * Diagnostic Imaging (Routine) - Closed Specialty Diagnoses / Procedures Referred By Contac t Referred To Contact Radiology Diagnoses Renal cell carcinoma of right kidney (HCC) Procedures MRI Abdomen Kidney WO Contrast Marc Khan MD [address] [facility] [id number] [facility] [place] [address] Phone: tel: fax: [facility] [address] [place] [address] Referral ID Status Reason Start Date Expiration Date Visits Re quested Visits Authorized [id number] Closed 08/08/2020 09/07/2021 1 1 Encounter Details Date Type Department Care Team (Late st Contact Info) Description 09/07/2020 6:07 AM FOOD AND NUTRITION SUPERVISOR - 09/07/2020 11:59 PM FOOD AND NUTRITION SUPERVISOR Hospital Encounter 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 Gender Identity Not on file Sexual Orientation Straight 05/03/2020 10 :36 AM CDT documented as of this encounter Medications at Time of Discharge acetaminophen 500 mg capsuleIndications: Pain Take 1 capsule (500 mg total) by mouth every 6 (six) hours as needed for pain for up to 30 doses 30 capsule 06/18/2020 aspirin 81 mg tabletIndications:M yocardial Reinfarction Prevention Take 1 tablet (81 mg total) by mouth every morning bumetanide (BUMEX) 1 mg tabletIndications:H ELP EMPTY BLADDER Take 1 tablet (1 mg total) by mouth every morning 09/06/2020 cyanocobalamin (Vitamin B-12) 1,000 mcg tabletIndications:P revention of Vitamin B12 Deficiency Take 1 tablet (1,000 mcg total) by mouth every morning amLODIPine (NORVASC) 5 mg tablet TAKE ONE TABLET BY MOUTH DAILY 90 tablet 3 12/20/2019 1 metoprolol (LOPRESSOR) 25 mg tablet TAKE ONE TABLET BY MOUTH TWICE A DAY 180 tablet 3 12/20/2019 1 nitroglycerin (NITROSTAT) 0.[address] 1 tablet (0.4 mg total) under the tongue every 5 (five) minutes as needed 09/30/2018 3 omeprazole (PriLOSEC) 40 mg capsuleIndications: Treatment of Non-Bleeding Gastric Disorder Take 40 mg by mouth every morning 11/27/2018 1 sodium zirconium cyclosilicate (LOKELMA ORAL)Indications:LO WER K LEVELS Take 1 tablet by mouth every other day 1 tamsulosin (FLOMAX) 0.4 mg extended release capsule Take 1 capsule (0.4 mg total) by mouth daily with dinner 30 capsule 1 06/18/2020 0 documented as of this encounter Discharge Disposition [...] CONTRAST Schedule Routine, Read Routine (OP Routine) 09/07/2020 7:01 AM FOOD AND NUTRITION SUPERVISOR Renal cell carcinoma of right kidney (CMS/HCC) documented in this encounter Results * MRI Abdomen Kidney WO Contrast (09/07/2020 7:01 AM FOOD AND NUTRITION SUPERVISOR) Anatomical Region Laterality Modality Body N/A Magnetic Resonan ce 09/07/2020 11:0 0 AM FOOD AND NUTRITION SUPERVISOR Impressions 09/07/2020 5:06 PM FOOD AND NUTRITION SUPERVISOR 1. ??Postsurgical changes of right nephrectomy without residual nodular mass in the nephrectomy bed. 2. ??Polycystic liver and kidney disease with stable appearance of hepatic and left renal cysts, almost entirely replacing the left renal parenchyma. ??No suspicious solid liver or kidney lesion. 3. ??Resolution of right abdominal wall fluid collection. ??No residual fluid collection identified. Dictated by: Rj Downs M.D. The radiology attending physician has personally reviewed this study, and had reviewed and/or edited this written report and agrees with it. Electronically signed by: Markus Montoya M.D. 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 TECHNIQUE: Magnetic resonance imaging of the abdomen was performed without administration of intravenous Gadolinium contrast. Protocol: Kidney COMPARISON: No prior magnetic resonance imaging is available for comparison. ??CT 07/03/2020, 04/04/2020 FINDINGS: Liver: No significant hepatic steatosis or iron deposition. ??No hepatic surface nodularity. - Bile ducts: No intra or extrahepatic biliary ductal dilatation. - Focal liver lesions: Numerous T2 hyperintense cysts are scattered throughout the liver, similar appearance to the prior CT and in keeping with polycystic kidney liver disease. ??No suspicious nodularity or hepatic mass is identified. Gallbladder: Normal. Pancreas: Normal. Spleen: Normal. Adrenals: Normal. Kidneys: Right kidney is surgically absent. ??The left kidney is almost entirely replaced by cysts, some with T1 hyperintensity compatible with hemorrhagic or proteinaceous cysts. ??Only minimal left renal cortical parenchyma is identified, in keeping with polycystic kidney disease and end-stage renal disease. ??No hydronephrosis. Other Findings: No ascites. ??Visualized bowel loops are without abnormal wall thickening or evidence of obstruction. ??Marrow signal intensity within the visualized osseous structures is normal. ??No abdominal lymphadenopathy. ??There is a prominent 1.2 x 0.5 cm left pericardiophrenic lymph node, nonspecific, possibly reactive. ??The previously noted fluid and gas collection along the right abdominal wall has resolved, compatible with successful incision and drainage. 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 TECHNIQUE: Magnetic resonance imaging of the abdomen was performed without administration of intravenous Gadolinium contrast. Protocol: Kidney COMPARISON: No prior magnetic resonance imaging is available for comparison. CT 07/03/2020, 04/04/2020 FINDINGS: Liver: No significant hepatic steatosis or iron deposition. No hepatic surface nodularity. - Bile ducts: No intra or extrahepatic biliary ductal dilatation. - Focal liver lesions: Numerous T2 hyperintense cysts are scattered throughout the liver, similar appearance to the prior CT and in keeping with polycystic kidney liver disease. No suspicious nodularity or hepatic mass is identified. Gallbladder: Normal. Pancreas: Normal. Spleen: Normal. Adrenals: Normal. Kidneys: Right kidney is surgically absent. The left kidney is almost entirely replaced by cysts, some with T1 hyperintensity compatible with hemorrhagic or proteinaceous cysts. Only minimal left renal cortical parenchyma is identified, in keeping with polycystic kidney disease and end-stage renal disease. No hydronephrosis. Other Findings: No ascites. Visualized bowel loops are without abnormal wall thickening or evidence of obstruction. Marrow signal intensity within the visualized osseous structures is normal. No abdominal lymphadenopathy. There is a prominent 1.2 x 0.5 cm left pericardiophrenic lymph node, nonspecific, possibly reactive. The previously noted fluid and gas collection along the right abdominal wall has resolved, compatible with successful incision and drainage. IMPRESSION: 1. Postsurgical changes of right nephrectomy without residual nodular mass in the nephrectomy bed. 2. Polycystic liver and kidney disease with stable appearance of hepatic and left renal cysts, almost entirely replacing the left renal parenchyma. No suspicious solid liver or kidney lesion. 3. Resolution of right abdominal wall fluid collection. No residual fluid collection identified. Dictated by: Rj Downs M.D. The radiology attending physician has personally reviewed this study, and had reviewed and/or edited this written report and agrees with it. Electronically signed by: Markus Montoya M.D. Marc Khan MD [facility] MRI PROCEDURES Final Result documented in this encounter Visit Diagnoses Diagnosis Renal cell carcinoma of right kidney (HCC) documented in this encounter Care Teams Slip Operator Relationship Specialty Start Date End Date Gerardo Shah MD PCP - General Internal Medicine 09/30/18 Suzette Strickland MD [address] [facility] [address] [place] [address] Referring Physician Nephrology 02/15/20 Rita Tapia, RN [address] [place] [address] Registered Nurse Lead Technician 02/15/20 documented as of this encounter
--- OUTSIDE RECORDS SUMMARY | 2024-10-16 06:39 | XMS_ITS | Encounter Summary ---
Author Organization [facility] Healthcare Address [address] [place] [address] Care Team Providers Care Shirring Tender Name Role Phone Gerardo Shah MD Primary Care Provider [phone] Suzette Strickland MD Unavailable [phone] Rita Tapia RN Unavailable [phone] Encounter Details Date Type Department Care Team (Late st Contact Info) Description 08/04/2020 Telephone [facility] Transplant Kidney [address] [facility] [phone] [place] [address] Zhane Hatfield Social History Tobacco Use Types Packs/Day Years Used Date Smoking Tobacco: Former Cigarettes 1.5 40 0 04/11/1978 - 2017 Smokeless Tobacco: Never Alcohol Use Standard Drinks/Week Comments Yes 2 (1 standard drink = 0.6 oz pur e alcohol) Sex and Gender Information Value Date Recorded Sex Assigned at Not on file 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 Gender Identity Not on file Sexual Orientation Straight 05/03/2020 10 :36 AM CDT documented as of this encounter Miscellaneous Notes * Telephone Encounter - Zhane Hatfield - 08/04/2020 12:41 PM CDT Called and LM for maco Almanza, requesting call back with txp auth or if she needs clin docs to let me know so we can fax to her documented in this encounter Plan of Treatment Scheduled Procedures Name Priority Associated Diagnoses Date/Ti me TRANSPLANT KIDNEY ESRD (end stage renal disease) ([facility]) documented as of this encounter Visit Diagnoses Not on filedocumented in this encounter Care Teams Shirring Tender Relationship Specialty Start Date End Date Gerardo Shah MD PCP - General Internal Medicine 09/30/18 Suzette Strickland MD [address] [facility] [address] [place] [address] Referring Physician Nephrology 02/15/20 Rita Tapia, RN [address] [place] [address] Registered Nurse Swatch Checker 02/15/20 documented as of this encounter
--- OUTSIDE RECORDS SUMMARY | 2024-10-16 06:39 | XMS_ITS | Encounter Summary ---
Author Organization [facility] Address [address] [place] [address] Care Team Providers Care Sole Inker Name Role Phone Gerardo Shah MD Primary Care Provider [phone] Suzette Strickland MD Unavailable [phone] Rita Tapia RN Unavailable [phone] Encounter Details Date Type Department Care Team (Latest Contact Info) Description 10/12/2020 8:01 AM CORE DIPPER - 10/12/2020 1:50 PM CORE DIPPER Hospital Encounter [facility] Operating Room [address] [place] [address] Chucho Mojica MD [address] [facility] [id number] [place] [address] Discharge Disposition: Discharge to home or self [...] on file Legal Sex Male 4:54 AM CORE DIPPER Gender Identity Not on file Sexual Orientation Straight 05/03/2020 10 :36 AM CDT documented as of this encounter Last Filed Vital Signs Vital Sign Reading Time Taken Comments Blood Pressure 119/70 10/12/2020 1:20 PM CORE DIPPER Pulse 67 10/12/2020 1:20 PM CORE DIPPER Temperature 36.2 ??C (97.2 ??F) 10/12/2020 1:06 PM CS T Respiratory Rate 16 10/12/2020 1:20 PM CORE DIPPER Oxygen Saturation 100% 10/12/2020 1:20 PM CORE DIPPER Inhaled Oxygen Concentration - - Weight 96.2 kg (212 lb) 10/05/2020 8:25 AM CORE DIPPER Height 190.5 cm (6' 3 ) 10/05/2020 8:25 AM CORE DIPPER Body Mass Index 26.5 10/05/2020 8:25 AM CORE DIPPER documented in this encounter Discharge Diagnoses Diagnosis Stenosis of other vascular prosthetic devices, implants and grafts, initial encounter (HCC) - STENOSIS OF OTHER VASCULAR PROSTHETIC DEVICES, IMPLANTS AND GRAFTS, INITIAL ENCOUNTER Surgical operation with anastomosis, bypass or graft as the cause of abnormal reaction of the patient, or of later complication, without mention of misadventure at the time of the procedure - SURGICAL OPERATION WITH ANASTOMOSIS, BYPASS OR GRAFT THE CAUSE OF ABNORMAL REACTION OF THE PATIEN Activity, unspecified - ACTIVITY, UNSPECIFIED Unspecified place or not applicable - UNSPECIFIED PLACE OR NOT APPLICABLE Unspecified external cause status - UNSPECIFIED EXTERNAL CAUSE STATUS Hypertensive chronic kidney disease with stage 5 chronic kidney disease or end stage renal disease (HCC) - HYPERTENSIVE CHRONIC KIDNEY DISEASE WITH STAGE 5 CHRONIC KIDNEY DISEASE OR END STAGE RENAL DISEASE End stage renal disease (CMS/HCC) (HCC) - END STAGE RENAL DISEASE End stage renal disease Old myocardial infarction - OLD MYOCARDIAL INFARCTION Chronic obstructive pulmonary disease, unspecified (HCC) - CHRONIC OBSTRUCTIVE PULMONARY DISEASE, UNSPECIFIED Nonrheumatic mitral (valve) insufficiency - NONRHEUMATIC MITRAL (VALVE) INSUFFICIENCY Cystic disease of liver - CYSTIC DISEASE OF LIVER Other specified disorders of liver Anemia in chronic kidney disease (CODE) - ANEMIA IN CHRONIC KIDNEY DISEASE (MANIFESTATION) Gastro-esophageal reflux disease without esophagitis - GASTRO-ESOPHAGEAL REFLUX DISEASE WITHOUT ESOPHAGITIS Diaphragmatic hernia without obstruction or gangrene - DIAPHRAGMATIC HERNIA WITHOUT OBSTRUCTION OR GANGRENE Diaphragmatic hernia without mention of obstruction or gangrene Polycystic kidney, unspecified - POLYCYSTIC KIDNEY, UNSPECIFIED Unspecified osteoarthritis, unspecified site - UNSPECIFIED OSTEOARTHRITIS, UNSPECIFIED SITE Other chronic pain - OTHER CHRONIC PAIN Low back pain - LOW BACK PAIN Lumbago Acquired absence of kidney - ACQUIRED ABSENCE OF KIDNEY Other specified postprocedural states - OTHER SPECIFIED POSTPROCEDURAL STATES Personal history of nicotine dependence - PERSONAL HISTORY OF NICOTINE DEPENDENCE 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 Plan of Care : Based on the above findings, I consider Abel Browne to be an acceptable risk for : Procedure(s): REVISION ARTERIOVENOUS FISTULA - ARM fistulogram, possible endovascular vs open revision of left arm AV fistula FISTULOGRAM DIPPER Source Note - Mariama Villa NP - 10/05/2020 9:43 AM CORE DIPPER Images from the original note were not included. Center for Preoperative Assessment and Planning Preoperative Evaluation Record Evaluation type/location: TPAP from [facility] Planned procedure site: [facility] (Pods 2//5/SAMPLE SEWER) Date: 10/05/20 NOTE: This note represents a preoperative evaluation initiated via telephone interview. NO PHYSICALEXAM was performed at the time of initial assessment. A physical exam may be added to this note anddocumented below. Anesthesia Evaluation Abel Browne is a 60 y.o. male Procedure(s): REVISION ARTERIOVENOUS FISTULA - ARM fistulogram, possible endovascular vs open revision of left arm AV fistula FISTULOGRAM Pre-Op Diagnosis Codes: * Kidney disease [N28.9] HISTORY HPI 60 y/o male w/ symptomatic ESRD s/p AV fistula creation 08/01/20 who was subsequently found to have a hematoma around his fistula. Patient is being evaluated prior to undergoing undergoing LUE AV fistula revision. Other medical history includes IA, HTN, and COPD/asthma. Past Medical History Information obtained from: patient and chart. Neurological Pertinent negatives: seizures; CVA/stroke and TIA Cardiovascular + Hypertension (on Metoprolol, Norvasc ) Typical systolic BP - 130 Typical diastolic BP - 70 + IA (IA 2018 s/p catheterization - no CAD and presumed coronary spasm event in distribution of LAD- sx at time of IA were indigestion type pain for ~24 hours ) Number of IA's: 1. Date of last IA: 2017. + Current valvular disease (per stress echo 04/11, LVEF 71%) - MR - mild; + Other arrhythmia (SB 50s - pt reports hx of bradycardia) - bradycardia. Pertinent negatives: CAD ; atrial fibrillation; pacemaker/ICD; PVD; DVT/PE; negative for CHF and hyperlipidemia Comments: F/b Dr. Nay Shrestha [place] w/ presumed history of coronary spasm per cardiology documentation. Per cardiology note 02/2020 in [facility] The patient was seen by myself I believe in September of 2018 with some chest pain. He was having episodes that were concerning for the possibility of myocardial ischemia and was brought for coronary angiography. The angiograms demonstrated completely normal appearing coronary arteries although there was some hypokinesia of the anteroapical wall and it was presumed therefore the might of had a coronary spasm event in the distribution of his LAD. For this calcium channel kathryn treatment was recommended and he has done well. 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 Respiratory + COPD ( mild COPD in setting of pneumonia, has not used inhalers in years) Rescue inhaler use: never. Hospitalizations/ER in the last year: 0. Most recent exacerbation: none recalled . FEV1 % predicted: 53%. Pertinent negatives: sleep apnea (SHAHEEN); no O2 use outside the hospital; no history of oral steriod use; no prior intubation for respiratory failure and non-smoker Comments: Per PFTs 04/04/2020 - moderately severe obstructive ventilatory defect. There is air trapping and hyperinflation. Denies being prescribed any inhalers Onset at time of pneumonia > 15 yearsago. Hx of bleach poisoning at work ~20 years ago Hepatic / Heme + Liver disease (polycystic liver per CT imaging - LFTs unremarkable 03/2020 per [facility]) + History of anemia (anemia of CKD, most recent H/H 9.4/29.5 on 07/05/20) - iron deficiency Pertinent negatives: history of thrombocytopenia and history of Emperatriz positive Gastrointestinal + GERD (on Omeprazole ) - on daily therapy. Symptoms < 1x/week. + Hiatal hernia Renal / + Renal disease (2/2 polycystic kidney disease, His Grade Tamper is Dr. Strickland) - ESRD Pertinent negatives: dialysis Comments: S/p R nephrectomy 05/2020 Musculoskeletal/Pain + Chronic pain (low back - on Flexeril and PRN Nassau - reports no use of Nassau in months ) Endocrine / Other Pertinent negatives: diabetes mellitus; thyroid disease; cancer history; rheumatological disease and infectious disease Functional Capacity Functional capacity: 4-6 METs Comments: Reports no SOB or CP with walking 2 city blocks or ascending 2 flights of stairs. Reportshe was previously <4 METS but since nephrectomy in 05/2020 he has noticed great improvement in his breathing. Review of Systems + chest pain (NO nitro use since 2018 - negative stress 03/2020) + pedal edema (Chronic BLE edema 2/2 CKD- managed on Bumex- stable and unchanged) + dizziness (intermittent w/ quick position changes - chronic and unchanged ) + chronic pain (low back - on Flexeril and PRN Nassau - reports no use of Nassau in months ) + numbness/tingling (bilateral hands/UEs intermittent ) + heartburn (worsening attributed to PKD ) + dysphagia (esophagus twists at times - intermittent ) + dentures/partials (upper denture) Pertinent negatives: productive cough; wheezing; SOB; recent cold/flu; fever; palpitations; orthopnea; PND; previous transfusion; melena/hematochezia; easy bruising; bleeding problems; syncope; muscle weakness; hard of hearing; vision loss; nausea; diarrhea; chipped/loose teeth; abdominal pain; diaphoresis and no unexpected weight change PAT Summary and Plans Cardiac risk classification of planned procedure: low cardiac risk. Preoperative assessment status: complete. Initial preoperative evaluation discussed with: Eliseo Baig MD Additional comments: Abel Browne is a 60 y.o. male who is being evaluated prior to undergoing a low cardiac risk surgery. Revised Cardiac Risk Index factors are (ischemic heart disease and preoperative creatinine > 2 mg/dL) for a total RCRI of 2 out of 6. Functional capacity is 4-6 METs. This assessment was performed via telephone. Therefore the physical exam has been deferred to the day of surgery team. The patient was provided with preoperative instructions for their medications. The patient was informed that instructions regarding stopping any therapeutic antiplatelet or anticoagulant medications will be provided by the surgeon's office. The patient was instructed to shower/bathe the night priorand the morning of the planned procedure using an antibacterial soap. Patient instructions were provided via phone and Sent electronically via [employer]. Patient verbalized understanding of preoperative plan. Obstructive sleep apnea (SHAHEEN) screening status is Preliminary SHAHEEN screening not complete, pending neck circumference measurement on day of surgery. Blood bank needs for day of procedure: No type and screen needed Pending labs/tests include: N/A Labs reviewed from 07/05/20 CBC with H/H 11.3/36.1 BMP with Na 141, K 5.0, Cr 4.7 -->Hyperkalemia managed on lokelca every other day. ISTAT labs ordered DOS. Patient with No known exposure to COVID19 and no concerning symptoms of COVID19. Plan for pre-procedure COVID19 testin10/10/20 at [facility]. Reports episode of spasm like CP 05/2020 and he was evaluated at hospital in [facility] - felt like spasm in epigastric region. Denies use of nitroglycerin in >2 years. Patient had negative stress test 03/2020 in [facility]. ECG at OSH 04/2020 shows SB. The patient is on aspirin therapy and is scheduled for cardiac/vascular surgery where aspirin is routinely continued for periprocedural benefit. TPAP complete. Preoperative evaluation performed by Mariama Villa NP on 10/05/20 at 9:45 AM. . Patient Active Problem List Diagnosis ??? Other chest pain ??? End stage renal disease (CMS/HCC) ??? Polycystic kidney disease, autosomal dominant ??? Stage 4 chronic kidney disease (CMS/HCC) ??? Pre-transplant evaluation for kidney transplant ??? Secondary hyperparathyroidism (CMS/HCC) ??? Autosomal dominant polycystic kidney disease ??? Acute postoperative abdominal pain ??? End-stage renal disease (ESRD) (CMS/HCC) ??? ESRD (end stage renal disease) (CMS/HCC) ??? Encounter for surgical aftercare following surgery of circulatory system ??? Kidney disease Past Medical History: Diagnosis Date ??? Anemia of chronic disease ??? Arthritis ??? Asthma ??? Bradycardia ??? CKD (chronic kidney disease) ??? COPD (chronic obstructive pulmonary disease) (CMS/HCC) mild ??? GERD (gastroesophageal reflux disease) ??? Heart attack (CMS/HCC) 09/2018 ??? Hiatal hernia ??? Pneumonia ??? Polycystic kidney disease ??? PONV (postoperative nausea and vomiting) Past Surgical History: Procedure Laterality Date ??? CARDIAC CATHETERIZATION 2018 ??? COLONOSCOPY 03/2020 ??? NEPHRECTOMY 05/2020 ??? OTHER SURGICAL HISTORY 1973 Ureteral surgery No Known Allergies Med List Status: Nurse Complete Set By: Stan Melendez RN at 10/05/2020 8:22 AM Taking? Last Dose Start Date End Date Provider acetaminophen 500 mg capsule 10/04/2020 06/18/20 -- Belkys Mccormick MD Take 1 capsule (500 mg total) by mouth every 6 (six) hours as needed for pain for up to 30 doses Patient taking differently: Take 1,000 mg by mouth every 6 (six) hours as needed for pain amLODIPine (NORVASC) 5 mg tablet 10/05/2020 12/20/19 -- Donaldo Tee MD TAKE ONE TABLET BY MOUTH DAILY Patient taking differently: Take 5 mg by mouth every morning Notes: ` aspirin 81 mg tablet 10/05/2020 -- -- Eben Tomas MD bumetanide (BUMEX) 1 mg tablet 10/05/2020 09/06/20 -- Eben Tomas MD cyanocobalamin (Vitamin B-12) 1,000 mcg tablet 10/05/2020 -- -- Eben Tomas MD metoprolol (LOPRESSOR) 25 mg tablet 10/05/2020 12/20/19 -- Donaldo Tee MD TAKE ONE TABLET BY MOUTH TWICE A DAY Patient taking differently: Take 25 mg by mouth 2 (two) times a day nitroglycerin (NITROSTAT) 0.4 mg SL tablet More than a month 09/30/18 -- Eben Tomas MD omeprazole (PriLOSEC) 40 mg capsule 10/05/2020 11/27/18 -- Eben Tomas MD sodium zirconium cyclosilicate (LOKELMA ORAL) 10/04/2020 -- -- Eben Tomas MD No current facility-administered medications for this encounter. Current Outpatient Medications: ??? acetaminophen 500 mg capsule ??? amLODIPine (NORVASC) 5 mg tablet ??? aspirin 81 mg tablet ??? bumetanide (BUMEX) 1 mg tablet ??? cyanocobalamin (Vitamin B-12) 1,000 mcg tablet ??? metoprolol (LOPRESSOR) 25 mg tablet ??? omeprazole (PriLOSEC) 40 mg capsule ??? sodium zirconium cyclosilicate (LOKELMA ORAL) ??? nitroglycerin (NITROSTAT) 0.4 mg SL tablet Social History Tobacco Use Smoking Status Former Smoker ??? Packs/day: 1.50 ??? Years: 40.00 ??? Pack years: 60.00 ??? Types: Cigarettes ??? Start date: 04/11/1978 ??? Quit date: 2017 ??? Years since quittin.9 Smokeless Tobacco Never Used Substance and Sexual Activity Alcohol Use Yes ??? Alcohol/week: 1.0 standard drinks ??? Types: 1 Cans of beer per week Comment: OCC Substance and Sexual Activity Drug Use No Family History Problem Relation Age of Onset ??? Aneurysm Mother ??? Kidney disease Mother ??? Cancer Father ??? Kidney disease Sister ??? PONV Sister ??? Anesthesia problems Neg Hx There were no vitals filed for this visit. Relevant diagnostics: ECG(s): OSH 05/15/2020: SB, 53 bpm? 04/04/2020: SB, 52 bpm? Stress test(s): 04/11/2020 DSE:??Impression: ??Maximal Dobutamine Stress Echocardiogram, NEGATIVE for myocardial ischemia.Normal global LV Myocardial longitudinal function and LV strain pattern. LV Global Function: Normal left ventricular systolic Function. Baseline Echo Comments: Normal LV+RV ??normal systolic function - No wall abnormalities, Mild LVH. Normal LA+RA size. EF 71%.?Doppler/CF Comments: Mild MR. ? PFT(s): 04/04/2020:? FVC PRED 0.05 - 9.99 Liters 4.91 ?? FVC PRE 0 - 12 Liters 4.26 ?? FVC %PRE PRED 0 - 300 % 87 ?? FEV1 PRED 0.05 - 9.99 Liters 3.78 ?? FEV1 PRE 0 - 12 Liters 2.01 ?? FEV1 %PRE PRED 0 - 300 % 53 ?? FEV1/FVC PRED 1 - 99 % 77 ?? FEV1/FVC PRE 0 - 12 % 47? IMPRESSION: There is a moderately severe obstructive ventilatory defect. There is air trapping and hyperinflation. There is no impairment of alveolar gas exchange by DLCO.? 6 min walk??Interpretation: Breathing room air, SpO2 is normal at rest and during exercise sufficient to increase pulse from 61to 91 b/min, SpO2 is stable. On this basis, SpO2 is adequate at rest and while walking breathing room air. This level of exercise is associated with no significant change of FEV1. ?? Vascular studies: 06/16/20 US Vein mapping Conclusions: 1. Duplex imaging of bilateral cephalic and basilic veins reveals the cross-sectional measurements noted above. 2. Superficial vein thrombus(isolated) in the left cephalic vein at mid forearm. 3. No evidence of acute deep vein thrombosis bilaterally in the upper extremities. ?? Other: ?? CXR 04/04/2020:??IMPRESSION: There are no prior chest radiographs at [facility] for comparison. The heart and mediastinal contours are normal. ??There is no mass or consolidation. ??There is no lymphadenopathy. ??There are no pleural effusions. ??There is no pneumothorax. There is old granulomatous disease. ?? CT abd/pelvis 04/04/2020:??IMPRESSION: ?? 1. ??Minimal abdominal aortic and right common iliac artery calcific atherosclerosis. ?? 2. ??Polycystic liver and kidney disease. ??Of note some of the renal lesions are hyperattenuating and may have hemorrhagic or proteinaceous content. ??Comparison with prior studies or MRI would be helpful to assess for any solid lesions. ?? 3. ??6 mm nodule within the lingula for which a one-year follow-up study is recommended. ?? Recommend follow up of the Incidental lung nodule Additional Imaging In [address] with noncontrast chest CT.?? PT: No results found for requested labs within last 720 hours. INR: No results found for requested labs within last 720 hours. APTT: No results found for requested labs within last 720 hours. Hgb A1C: No results found for requested labs within last 720 hours. CBC RBC: No results found for requested labs within last 720 hours. RDW: No results found for requested labs within last 720 hours. MCHC: No results found for requested labs within last 720 hours. MCH: No results found for requested labs within last 720 hours. MCV: No results found for requested labs within last 720 hours. Hct: No results found for requested labs within last 720 hours. Hgb: No results found for requested labs within last 720 hours. WBC: No results found for requested labs within last 720 hours. MPV: No results found for requested labs within last 720 hours. Platelets: No results found for requested labs within last 720 hours. RDW CV: No results found for requested labs within last 720 hours. RDW Sd: No results found for requested labs within last 720 hours. BMP Glucose: No results found for requested labs within last 720 hours. Calcium: No results found for requested labs within last 720 hours. Sodium: No results found for requested labs within last 720 hours. Potassium: No results found for requested labs within last 720 hours. CO2: No results found for requested labs within last 720 hours. Chloride: No results found for requested labs within last 720 hours. BUN: No results found for requested labs within last 720 hours. Creatinine: No results found for requested labs within last 720 hours. Luis Enrique index score: 100 DIPPER documented in this encounter Miscellaneous Notes * Op Note - Chucho Mojica MD - 10/12/2020 11:40 AM CST OPERATIVE REPORT SURGEON Chucho Mojica MD FIRE LOSS PREVENTION ENGINEER Ondina Will NP ANESTHESIA: Local plus sedation by anesthesia department PRESENCE STATEMENT: I was present for the entire procedure PREOPERATIVE DIAGNOSIS left upper arm brachial cephalic primary AV fistula with stenosis near arterial anastomsis POSTOPERATIVE DIAGNOSIS same NAME OF OPERATION Left arm fistulogram US guided left AV fistula access INDICATIONS FOR PROCEDURE Patient had a left upper arm primary fistula with elevated velocities near elbow. Seems to work well on exam. No on HD yet. Anastomosis was originally created to median cubital vein which connects with cephalic vein after 3 cm. A prior advanced imaging modality (CTA, MRA, etc) had not been recently obtained for this patien OPERATIVE FINDINGS No focal stenosis. First few cm of AVF, kaibab vein size is 4 mm. After that, kaibab vein size is 9-10 mm. Brisk flow, no branches. 15 mL contrast used. DESCRIPTION OF PROCEDURE The surgical field was sterilely prepped and draped. A surgical ???time out?? was performed to confirm that the appropriate side and site were identified. Access was obtained under ultrasound guidance using a micropuncture technique. A copy of the ultrasound was placed on the patient???s permanent hospital chart. The ultrasound demonstrated flow in theartery and the needle was seen entering the artery. A micropuncture sheath was placed into the AVF. A micropuncture sheath was used for the case without upsizing. Radiologic findings: Imaging of the fistula with contrast injection to visualize the arterial inflow, anastomosis and venous outflow into the central circulation was performed. The stenosis was 0 %. The sheath was removed and direct pressure held to obtain hemostasis and the patient transported tot recovery area. SPECIMENS REMOVED None. ESTIMATED BLOOD LOSS Minimal. INTRAOPERATIVE FLUIDS See anesthesia/nursing records COUNTS All sponge, instrument, needle counts were correct at the end of the procedure. CONDITION ON DISCHARGE FROM OPERATING ROOM Stable. CHIEF NURSING OFFICER MEASURES We utilized 15 cc of Optiray contrast and fluoroscopy time was 33 seconds. DIPPER * Pre-Procedure Instructions - Mariama Villa NP - 10/05/2020 9:34 AM CST Center for Preoperative Assessment and Planning CPAP Clinic Location: [facility] The night before your surgery: * Do not eat or drink anything after midnight. This includes candy, mint, gums, chewable antacids (TUMS, Rolaids) and cough drops * Do not smoke after midnight the night before surgery. It is best to stop smoking now to improve your health. The morning of your surgery: * You may brush your teeth and rinse your mouth out. * Do not glue your dentures. * Do not wear jewelry, body piercings, makeup, hairpins, false eyelashes or contact lenses to the hospital. * Leave any valuables at home or with your family. You may want to bring a credit card if you want to use our Mobile Pharm[facility] for your discharge medications. Outpatient Surgery: * You must have a responsible adult drive you home and stay with you for 24 hours after your surgery * You cannot be alone at home or in a hotel * Please call your surgeon's office if you do not have someone to drive you home and/or stay with you after surgery * Please bring any items you may need to spend the night in the hospital. Sometimes patients need to be cared for in the hospital overnight. If you are on Dialysis: * It is best to have dialysis the day before your surgery. * Having dialysis the morning of your surgery is also fine if you are able to make it to the hospital on time. * If you are not scheduled to have dialysis the day before or the morning of your surgery, please call your surgeon's office. If you have Sleep Apnea (SHAHEEN): * Bring your CPAP/BiPAP/VPAP machine to the hospital the day of your surgery * For a few days after your surgery, you will need to wear your CPAP/ BiPAP/VPAP machine any time your are sleeping. This includes when you take a nap. Instructions For Your Medications: Pre-Surgery Instructions: Medication Instructions ??? acetaminophen 500 mg capsule Take on day of surgery if needed ??? amLODIPine (NORVASC) 5 mg tablet Take morning of surgery ??? aspirin 81 mg tablet Take morning of surgery ??? bumetanide (BUMEX) 1 mg tablet Don't take on day of surgery ??? cyanocobalamin (Vitamin B-12) 1,000 mcg tablet Don't take on day of surgery ??? metoprolol (LOPRESSOR) 25 mg tablet Take morning of surgery ??? omeprazole (PriLOSEC) 40 mg capsule Take morning of surgery ??? sodium zirconium cyclosilicate (LOKELMA ORAL) Don't take on day of surgery ??? nitroglycerin (NITROSTAT) 0.4 mg SL tablet Take on day of surgery if needed General Instructions For Medications: ?? For medications that you are instructed to take on the morning of surgery, take the medications with a few sips of water. ?? Stop all of these medications 7-14 days prior to your surgery: Vitamin E, Herbal medicines, DietPills ?? If you take aspirin, do not stop taking it unless you were instructed to do so. ?? If you have pain, you may take tylenol (acetaminophen). Do not take more than 6 tablets or 3000 mg (3 g) within a 24 period. Call your surgeon and the CPAP clinic if any of the following happens before surgery: ?? Any changes in your health ?? You have a fever ?? You have any signs of an infection (chest, urinary tract or tooth) ?? You have been to the Emergency Room or were in the hospital ?? You have started taking any new medications ?? You have questions about a bowel prep or special diet before surgery DIPPER * Perioperative Nursing Note - Stan Melendez RN - 10/05/2020 8:31 AM CORE DIPPER [facility] Planning Perioperative Nursing Note Telephone Preoperative Evaluation ([facility]) - TELEPHONE ONLY, NO PHYSICAL EXAM Date: 10/05/20 Vitals: 10/05/20 0825 Weight: 96.2 kg (212 lb) Height: 190.5 cm (6' 3 ) CHEST CIRCUMFERENCE: Social History Tobacco Use Smoking Status Former Smoker ??? Packs/day: 1.50 ??? Years: 40.00 ??? Pack years: 60.00 ??? Types: Cigarettes ??? Start date: 04/11/1978 ??? Quit date: 2017 ??? Years since quittin.9 Smokeless Tobacco Never Used Substance and Sexual Activity Alcohol Use Yes ??? Alcohol/week: 1.0 standard drinks ??? Types: 1 Cans of beer per week Comment: OCC Substance and Sexual Activity Drug Use No Outpatient Medications Marked as Taking for the 10/12/20 encounter (Hospital Encounter) Medication Sig Dispense Refill ??? acetaminophen 500 mg capsule Take 1 capsule (500 mg total) by mouth every 6 (six) hours as needed for pain for up to 30 doses (Patient taking differently: Take 1,000 mg by mouth every 6 (six) hours as needed for pain ) 30 capsule 0 ??? amLODIPine (NORVASC) 5 mg tablet TAKE ONE TABLET BY MOUTH DAILY (Patient taking differently: Take 5 mg by mouth every morning ) 90 tablet 3 ??? aspirin 81 mg tablet Take 81 mg by mouth every morning ??? bumetanide (BUMEX) 1 mg tablet Take 1 mg by mouth every morning ??? cyanocobalamin (Vitamin B-12) 1,000 mcg tablet Take 1,000 mcg by mouth every morning ??? metoprolol (LOPRESSOR) 25 mg tablet TAKE ONE TABLET BY MOUTH TWICE A DAY (Patient taking differently: Take 25 mg by mouth 2 (two) times a day ) 180 tablet 3 ??? omeprazole (PriLOSEC) 40 mg capsule Take 40 mg by mouth every morning ??? sodium zirconium cyclosilicate (LOKELMA ORAL) Take 1 tablet by mouth every other day Implants No active implants to display in this view. SKIN Piercings Remaining: No Wound (LDAs) Type of Wound (LDA): (NONE) SCREENINGS Abisai Fall Risk Score (Retired): 15 Luis Enrique index score: 100 NUTRITION PATIENT CARE PLANNING Advance Directives (For Healthcare) Advance Directive: Patient does not have advance directive Communication/Vegetable Vendor Needs Communication Needs: None Assistive Devices/DME: Eyeglasses, Dentures upper Discharge Planning Type of Residence: Private residence Living Arrangements: Spouse/significant other Support Systems: Family members Assistance Needed: FAMILY WILL BE FLOOR NURSE AND HELPER Patient expects to be discharged to:: Private residence COVID Screening Covid-19 Screening In the last 10 days have you had any new or worsening cough, SOB, fever (>=100F), body aches, loss of taste or smell, diarrhea or vomiting, or sore throat?: No Have you had close contact with anyone with confirmed or suspected COVID-19 in the past 3 weeks?: No Do you live in or work in a congregate living facility (ex. assisted living/fci facility, penitentiary, jail)?: No Have you tested positive for COVID-19 within the last 14 days?: No Have you previously tested positive for COVID-19? No Have you had a COVID -19 exposure within the past 14 days? No Were both or all people exposed wearing masks (cloth, isolation, surgical or N95)? N/A TESTING PLAN-See Instructions for plan We recommend you Self-Isolate after COVID Testing: Stay at home, if possible until your surgery date. Maintain a 6 foot distance from other people (social distancing). Avoid touching your eyes, noseand mouth with unwashed hands. Wash your hands often with soap and water for at least 20 seconds. Use an alcohol- based hand senior fire protection engineer that contains at least 60% alcohol if soap and water are not available. ADDITIONAL COMMENTS/ FOLLOW UP DIPPER * Pre-Procedure Instructions - Stan Melendez RN - 10/05/2020 8:30 AM CORE DIPPER PRE-SURGICAL INSTRUCTIONS ??? General Information ?? Surgery location provided to patient. ?? Arrival time and surgical time will be provided by your surgeon. ?? Wear something clean, loose, comfortable and easy to get in and out of. ?? Leave your valuables and any jewelry at home (No metal or piercings are allowed in the operatingroom) ?? Bring your insurance card, a photo ID (like a Business Analysis Consultant's license) and a method of payment for any insurance copay, deductible, or copay for discharge medications. ?? Bring a complete, up to date list of all of your medications including any over the counter medications or supplements you may take. ? How To Prepare Your Skin For Surgery Antiseptic/antibacterial soap will decrease the amount of germs on your skin. It is important to minimize the risk of getting an infection by doing the following: ?? Change all the linens on the bed the night before surgery so you are sleeping on clean fresh sheets and pillowcases. ?? Shower the evening before and the morning of surgery with an antibacterial soap such as Dial or a surgical soap known as chlorhexidine (Hibiclens). You can purchase this soap at any pharmacy or department store or come by our CPAP clinic and we will give it to you free of charge. Do not use thissoap on your face or hair. ?? Wash your hair and face with your regular shampoo (no conditioners) and facial cleanser. ?? Take a shower using ?? cup (2 oz.) of antiseptic soap applied to a clean fresh washcloth. Scrub your entire body from the neck down. If you can't reach the surgical site, such as your back, have someone help you with your shower. Step out of the water and leave soap on your skin for 2 minutes prior to rinsing off. Rinse thoroughly and dry yourself off with a clean fresh dry towel. ?? Wear clean clothes or pajamas to sleep in and on morning of surgery. ?? Nothing extra on the skin or hair such as deodorant, makeup, hair products, lotions, powders, Vaseline, creams, or perfumes the evening before and the morning of surgery. ?? The morning of the surgery repeat the shower process with the remaining ?? cup (2 oz.) of surgical scrub using another fresh wash cloth and towel. ?? Do not shave the morning of surgery. ?? REMEMBER no deodorant, make-up, lotions, powders, creams, Vaseline, oils, conditioners or hair products the morning of the surgery. COVID TESTING PLAN COVID Test Request Placed in Epic to [facility]. Test to be performed on 10/10/20 [facility] If you have COVID testing or should have COVID testing for your surgery/procedure, please read below section: If you need to reschedule your COVID test to a different location or if your surgery gets rescheduled, you MUST call [phone] Saturday-Saturday 8am-4:30pm to get your COVID testing rescheduled or your lab order will not be available at Testing Sites. COVID Testing is only valid for up to 96 hours prior to surgery date, unless otherwise specified. If you are unable to reach staff at the above phone number, please call the CPAP Staff at [phone]. This number cannot order a lab test, but can attempt to contact the above number/staff to assist you. We are available Saturday-Saturday 8am-4:30pm . We recommend you Self-Isolate after COVID Testing: Stay at home, if possible until your surgery date. Maintain a 6 foot distance from other people (social distancing). Avoid touching your eyes, nose and mouth with unwashed hands. Wash your hands often with soap and water for at least 20 seconds. Use an alcohol- based hand senior fire protection engineer that contains at least 60% alcohol if soap and water are not available. ALL Patients should read below section: All visitors/patients are being asked to wear a clean mask when entering the hospital. COVID 19 Updates & Visitor Policy: Please access [email or web address] for the most updated information. ??? For patients having surgery [facility], if your surgeon's office has not notified you of your surgery time by NOON THE BUSINESS DAY BEFORE your surgery, please call [phone] and ask for your surgeon's office DR MOJICA DIPPER documented in this encounter Plan of Treatment Scheduled Procedures Name Priority Associated Diagnoses Date/Ti me TRANSPLANT KIDNEY ESRD (end stage renal disease) (CMS/[facility]) documented as of this encounter Procedures Procedure Name Priority Date/Time Associated Diagnosis Comments FL FLUOROSCOPY < 1 HOUR IP Routine 10/12/2020 12:50 PM CORE DIPPER FISTULOGRAM 10/12/2020 11:56 AM CORE DIPPER Kidney disease REVISION ARTERIOVENOUS FISTULA - ARM 10/12/2020 11:56 AM CORE DIPPER Kidney disease POC BLOOD GAS AND CHEMISTRIES, ARTERIAL Routine 10/12/2020 10:17 AM CORE DIPPER documented in this encounter Results * FL Fluoroscopy < 1 Hour (10/12/2020 12:50 PM CORE DIPPER) Narrative [facility] - 10/12/2020 12:51 PM CORE DIPPER The images from this study are not interpreted by Radiology. ??Please refer to the physician's procedure / OR operative note. us Chucho Mojica MD IMG FLUOROSCOPY PROCEDURES Fin al Result [facility] * (ABNORMAL) POC Blood Gas and Chemistries, Arterial - (10/12/2020 10:17 AM CORE DIPPER) Na, POC 141 135 - 145 mmol/L [facility] K POC 5.2(H) 3.3 - 4.9 mmol/L [facility] Comment: Interpretive Data Unable to assess hemolysis. ??Invitro hemolysis causes falsely elevated potassium. Current Interpretive Data was last revised on 2020. Glucose, POC 81 70 - 199 mg/dL [facility] Hct, POC 29.0(L) 41.4 - 51.6 % [facility] Total Hb, POC 9.7(L) 13.8 - 17.2 g/dL [facility] Blood specimen (specimen) 10/12/2020 10:17 AM CORE DIPPER 10/12/2020 10:17 AM CORE DIPPER us Chucho Mojica MD LAB POCT ORDERABLES - DEVICE F inal Result UMANG ASTORGA [facility] Department [place] [address] documented in this encounter Visit Diagnoses Diagnosis Kidney disease- Primary Unspecified disorder of kidney and ureter documented in this encounter Admitting Diagnoses Diagnosis Kidney disease Unspecified disorder of kidney and ureter documented in this encounter Administered Medications Inactive Administered Medications - up to 3 most recent administrations Medication Order MAR Action Action Date Dose Rate Site sodium chloride 0.9% infusion 30 mL/hr, intravenous, Continuous, Starting on Sat10/12/20 at 1030, Pre-Op documented in this encounter Active and Recently Administered Medications Times are shown in CORE DIPPER. Continuous Medication Order 10/10/2020 10/11/2020 10/12/2020 sodium chloride 0.9% infusion 30 mL/hr, intravenous, Continuous, Starting on Sat10/12/20 at 1030, Pre-Op 1030 (Due) PRN Medication Order 10/10/2020 10/11/2020 10/12/2020 fentaNYL (SUBLIMAZE) preservative free injection 25 mcg 25 mcg, intravenous, Every 10 min PRN, 1st line for pain, Starting on Sat10/12/20 at 1302, Phase I, Switch to 2nd line analgesic order if pain is uncontrolled or increasing after 2 doses. Notify Anesthesiologist if total PACU dose reaches 100 mcg and pain score 5/10 or more., Indications: Pain fentaNYL (SUBLIMAZE) preservative free injection 50 mcg 50 mcg, intravenous, Every 10 min PRN, 2nd line for pain, Starting on Sat10/12/20 at 1302, Phase I, May administer 10 mintes after 2nd dose of 1st line analgesic agent for uncontrolled or increasing pain. Revert to 1st line dose if POSS of 3. Notify Anesthesiologist if total PACU dose reaches 100 mcg and pain score 5/10 or more., Indications: Pain haloperidol (HALDOL) injection 0.5 mg 0.5 mg, intravenous, Once as needed, nausea, vomiting, Starting on Sat10/12/20 at 1302, For 1 dose, Phase I, If administered IV push, administer over 5 min for adults heparin in 0.9% sodium chloride 1,000 units/500 mL (2 unit/mL) infusion (premix) (CANCELED) As needed, Starting on Sat10/12/20 at 1244, Intra-Op 1244 (Given - Provid er: Chucho Mojica MD) ioversoL (OPTIRAY 320) injection (CANCELED) As needed, Starting on Sat10/12/20 at 1244, Intra-Op 1244 (Given - Provid er: Chucho Mojica MD) naloxone (NARCAN) 0.4 mg/mL injection 0.04-0.4 mg 0.04-0.4 mg, intravenous, Once as needed, other, excessive sedation/respiratory depression, Starting on Sat10/12/20 at 1302, For 1 dose, Phase I, Dilute 0.4 mg with 9 mL NS (final concentration 0.04 mg/mL). For respiratory depression (respiratory rate less than 6), administer 0.4 mg IVP over 30 seconds. For excessive sedation administer 0.04 mg (1 mL) every 1 minute until desired level of alertness. For IV, administer over 30 seconds., Indications: Opioid Toxicity sodium chloride 0.9 % irrigation (CANCELED) As needed, Starting on Sat10/12/20 at 1244, Intra-Op 1244 (Given - Provid er: Chucho Mojica MD) sterile water irrigation (CANCELED) As needed, Starting on Sat10/12/20 at 1244, Intra-Op 1244 (Given - Provid er: Chucho Mojica MD - Comment: instruments) documented in this encounter Orders Medications Ordered That Wolf ht Not Have Been Administered Count Last Ordered Date First Ordered Date ceFAZolin (ANCEF) 2,000 mg/2 0 mL in sterile water (premix) 2,000 mg 1 10/12/2020 fentaNYL (SUBLIMAZE) preserv ative free injection 25 mcg 1 10/12/2020 fentaNYL (SUBLIMAZE) preserv ative free injection 50 mcg 1 10/12/2020 haloperidol (HALDOL) injection 0.5 mg 1 heparin in 0.9% sodium chlor ele 1,000 units/500 mL (2 unit/mL) infusion (premix) 1 10/12/2020 ioversoL (OPTIRAY 320) injection 1 10/12/20 20 naloxone (NARCAN) 0.4 mg/mL injection 0.04-0.4 mg 1 10/12/2020 sodium chloride 0.9 % irrigation 1 10/12/20 sodium chloride 0.9% flush 0.5-20 mL 1 09/27 sodium chloride 0.9% infusion 1 10/12/2020 sterile water irrigation 1 10/12/2020 Diet Count Last Ordered Date First Orde red Date ADULT DISCHARGE DIET 1 10/12/2020 Nursing Count Last Ordered Date First Orde red Date DISCHARGE ACTIVITY 1 10/12/2020 DISCHARGE CALL PROVIDER 1 10/12/2020 DISCHARGE DRESSING 1 10/12/2020 documented in this encounter Care Teams Sole Inker Relationship Specialty Start Date End Date Gerardo Shah MD PCP - General Internal Medicine 09/30/18 Suzette Strickland MD [address] [facility] [address] [place] [address] Referring Physician Nephrology 02/15/20 Rita Tapia, RN [address] [place], [place] [id number] Registered Nurse Tc Operator 02/15/20 documented as of this encounter
--- OUTSIDE RECORDS SUMMARY | 2024-10-16 06:39 | XMS_ITS | Encounter Summary ---
Author Organization [facility] Address [address] [facility] [address] [place] [address] Phone Care Team Providers Care Awning Maker Name Role Phone Gerardo Shah MD Primary Care Provider [phone] Suzette Strickland MD Unavailable [phone] Rita Tapia RN Unavailable [phone] Encounter Details Date Type Department Care Team (Late st Contact Info) Description 09/30/2020 Telephone [facility] Surgery [address] [facility] Medical Office Building [address] [address] Chucho Aponte MD [address] [facility] [id number] [place], [place] [id number] Social History Tobacco Use Types Packs/Day Years Used Date Smoking Tobacco: Former Cigarettes 1.5 40 0 04/11/1978 - 2017 Smokeless Tobacco: Never Alcohol Use Standard Drinks/Week Comments Yes 2 (1 standard drink = 0.6 oz pur e alcohol) Sex and Gender Information Value Date Recorded Sex Assigned at Not on file Legal Sex Male 4:54 AM CRAB CATCHER Gender Identity Not on file Sexual Orientation Straight 05/03/2020 10 :36 AM CDT documented as of this encounter Miscellaneous Notes * Telephone Encounter - Qiana Salmon RMA - 09/30/2020 9:51 AM CRAB CATCHER I called and spoke with pt's and answered all of her questions. She will reach out if she has any additional questions. ----- Message from Shanelle Peters sent at 09/30/2020 9:00 AM CRAB CATCHER ----- Regarding: procedure questions Patient's (Blanquita, ) called. They have some questions about his upcoming procedure on10-12: -What will they be doing in this procedure - using balloon to open it up or completely re-doing theaccess? -How long will this take? -Does someone have to stay at the hospital while this is being done? (They have to ask someone to bring him/them so they're trying to work out the transportation soonerrather than later.) Thanks, Shanelle CATCHER CATCHER documented in this encounter Plan of Treatment Scheduled Procedures Name Priority Associated Diagnoses Date/Ti me TRANSPLANT KIDNEY ESRD (end stage renal disease) ([facility]) documented as of this encounter Visit Diagnoses Not on filedocumented in this encounter Care Teams Awning Maker Relationship Specialty Start Date End Date Gerardo Shah MD PCP - General Internal Medicine 09/30/18 Suzette Strickland MD [facility] [facility] [address] [place] [address] Referring Physician Nephrology 02/15/20 Rita Tapia, RN [address] [place], [place] [id number] Registered Nurse Centrifugal Operator 02/15/20 documented as of this encounter
--- OUTSIDE RECORDS SUMMARY | 2024-10-16 06:39 | XMS_ITS | Encounter Summary ---
Author Organization [facility] Healthcare Address [address] [place] [address] Care Team Providers Care Histology Technician Name Role Phone Gerardo Shah MD Primary Care Provider [phone] Suzette Strickland MD Unavailable [phone] Rita Tapia RN Unavailable [phone] Encounter Details Date Type Department Care Team (Late st Contact Info) Description 08/04/2020 Documentation [facility] Transplant Kidney [address] [facility] [address] [id number] [place], [place] [id number] Rita Tapia, RN [address] [place], [place] [id number] Social History Tobacco Use Types Packs/Day Years Used Date Smoking Tobacco: Former Cigarettes 1.5 40 0 04/11/1978 - 2017 Smokeless Tobacco: Never Alcohol Use Standard Drinks/Week Comments Yes 2 (1 standard drink = 0.6 oz pur e alcohol) Sex and Gender Information Value Date Recorded Sex Assigned at Not on file Legal Sex Male 4:54 AM STEWARD/STEWARDESS SECOND Gender Identity Not on file Sexual Orientation Straight 05/03/2020 10 :36 AM CDT documented as of this encounter Progress Notes * Rita Tapia RN - 08/04/2020 6:30 AM CDT Successfully verified the ABO for Abel Browne (SSN:[id number]).The candidate is now eligible for match runs. UNOS and TIEDI forms completed. documented in this encounter Plan of Treatment Scheduled Procedures Name Priority Associated Diagnoses Date/Ti me TRANSPLANT KIDNEY ESRD (end stage renal disease) ([facility]) documented as of this encounter Visit Diagnoses Not on filedocumented in this encounter Care Teams Histology Technician Relationship Specialty Start Date End Date Gerardo Shah MD PCP - General Internal Medicine 09/30/18 Suzette Strickland MD [facility] [facility] [address] [place] [address] Referring Physician Nephrology 02/15/20 Rita Tapia, RN [address] [place] [address] Registered Nurse Community Engagement Coordinator 02/15/20 documented as of this encounter
--- OUTSIDE RECORDS SUMMARY | 2024-10-16 06:39 | XMS_ITS | Encounter Summary ---
Author Organization [facility] Address [address] [facility] [address] [place] [address] Care Team Providers Care Bowling Alley Floors Installer Name Role Phone Gerardo Shah MD Primary Care Provider [phone] Suzette Strickland MD Unavailable [phone] Rita Tapia RN Unavailable [phone] Encounter Details Date Type Department Care Team (Late st Contact Info) Description 10/05/2020 Orders Only [facility] Testing Site - [address] [place] [address] Chucho Mojica MD [address] [facility] [id number] [place] [address] Pre-procedure lab exam (Primary Dx) Social History Tobacco Use Types Packs/Day Years Used Date Smoking Tobacco: Former Cigarettes 1.5 40 0 04/11/1978 - 2017 Smokeless Tobacco: Never Alcohol Use Standard Drinks/Week Comments Yes 1 (1 standard drink = 0.6 oz pur e alcohol) OCC Sex and Gender Information Value Date Recorded Sex Assigned at Not on file Legal Sex Male 4:54 AM PALS NURSE Gender Identity Not on file Sexual Orientation Straight 05/03/2020 10 :36 AM CDT documented as of this encounter Progress Notes * Samanta Key - 10/05/2020 9:02 AM CST Order Information Order #: [id number] Procedure: REQUEST FOR AMBULATORY COLLECTION SITE TESTING - ADULT Order Date: 10/05/2020 Proc Category: Outpatient Referral Orderables Priority: Routine Status: ?? Class: Internal Referral Ordering User: Stan Melendez RN Auth Provider: HCUCHO MOJICA Provider: ?? Diagnosis: ?? Department: ?? Sched Instruct: ?? Comment: ?? Order Specific Questions Question Answer Comment Testing types: Pre-procedure ?? Date of Px/chemo/treatment/placement/transfer 10/12/2020 ?? Testing site patient will be sent to: [facility], [place] ?? Date testing requested: 10/10/2020 ?? Testing: COVID-RNA ?? Does the patient currently work in a healthcare facility with direct patient contact? No ?? Is the patient a resident of a congregate care or living setting? No ?? Is the patient ? No ?? Please select the performing region: [facility] NURSE documented in this encounter Plan of Treatment Scheduled Procedures Name Priority Associated Diagnoses Date/Ti me TRANSPLANT KIDNEY ESRD (end stage renal disease) ([facility]) documented as of this encounter Results * COVID-19 Coronavirus RNA Nasopharyngeal (10/10/2020 8:30 AM PALS NURSE) COVID-19 RNA Not Detected KARTIK MARSHALL ([place]) Comment: Testing performed as a component of ??a specimen pool. ??Negative results should be treated as presumptive and, if inconsistent with clinical signs and symptoms or necessary for patient management, pooled samples should be tested individually. Negative results do not preclude SARS-CoV-2 infection and must not be used as the sole basis for patient management decisions. Negative results must be considered in the context of a patient? s recent exposures, history, presence of clinical signs and symptoms consistent with COVID-19. Interpretive Data Testing performed by the [facility] Infectious Disease [facility]. The Novel Coronavirus Assay (COVID-19) Real Time RT-PCR assay is for in vitro diagnostic use under FDA emergency use authorization only. A negative RT-PCR result does not preclude infection with COVID-19 and should not be used as the sole basis for treatment or other patient management decisions. Additional sample types have been validated according to CLIA regulations. ?? Current Interpretive Data was last revised on 2020. Testing performed by: [facility], [address] [place]., [address] First COVID-19 test? No [facility] ([place]) Comment:Testing performed by : [facility], [address] [place] [address], [phone] Employeed in healthcare? No [facility] ([place]) Comment:Testing performed by : [facility], [address] [place] [address], [phone] status? No [facility] ([place]) Comment:Testing performed by : [facility], [address] [facility], [address] Group care resident? No [facility] ([place]) Comment:Testing performed by : [facility], [address] [place] [address], [address] Hospitalized? Unknown [facility] ([place]) Comment:Testing performed by : [facility], [address] [facility], [address] Is patient in ICU? Unknown [facility] ([place]) Comment:Testing performed by : [facility], [address] [place] [address], [phone] Symptomatic as defined by CDC? No [facility] ([place]) Comment:Testing performed by : [facility], [address] [place] [address], [phone] Nasopharyngeal 10/10/2020 8: 30 AM PALS NURSE 10/10/2020 2:56 PM PALS NURSE Narrative UMANG MARSHALL ([place]) - 10/11/2020 3:56 AM PALS NURSE What is the reason for testing?->Screening prior to scheduled procedure or surgery us Chucho Mojica MD LAB MICROBIOLOGY - GENERAL ORD ERABLES Final Result UMANG MARSHALL (JT) [address] [facility] Department [place] [address] documented in this encounter Visit Diagnoses Diagnosis Pre-procedure lab exam- Primary Pre-procedural laboratory examination Pre-procedure lab exam Pre-procedural laboratory examination documented in this encounter Care Teams Bowling Alley Floors Installer Relationship Specialty Start Date End Date Gerardo Shah MD PCP - General Internal Medicine 09/30/18 Suzette Strickland MD [address] [facility] [address] [place] [address] Referring Physician Nephrology 02/15/20 Rita Tapia, RN [address] [place] [address] Registered Nurse Design Quality Engineer 02/15/20 documented as of this encounter
--- OUTSIDE RECORDS SUMMARY | 2024-10-16 06:39 | XMS_ITS | Encounter Summary ---
Author Organization [facility] Address [address] [place] [address] Phone Care Team Providers Care International Accountant Name Role Phone Gerardo Shah MD Primary Care Provider [phone] Suzette Strickland MD Unavailable [phone] Rita Tapia RN Unavailable [phone] Reason for Referral * Diagnostic Imaging (Routine) - Closed Specialty Diagnoses / Procedures Referred By Kishore elkins Referred To Contact Vascular Surgery Diagnoses Arteriovenous fistula, acquired (CMS/HCC) (HCC) Procedures US Hemodialysis Access Bruce Torre NP Phone: tel: fax: [facility] Surgery [address] [facility] 8th [place] [address] [place] [address] Phone: tel: fax: Referral ID Status Reason Start Date Expiration Date Visits Re quested Visits Authorized [id number] Closed 08/31/2020 09/30/2021 99 99 ING INSTRUCTOR Encounter Details Date Type Department Care Team (Latest Contact Info) Description 08/31/2020 11:15 AM SAILING INSTRUCTOR Office Visit [facility] Surgery [address] [facility] 2nd [address] [place] [address] Bruce Torre NP [id number] [place] [address] Arteriovenous fistula, acquired ([facility]) Social History Tobacco Use Types Packs/Day Years Used Date Smoking Tobacco: Former Cigarettes 1.5 40 0 04/11/1978 - 2017 Smokeless Tobacco: Never Alcohol Use Standard Drinks/Week Comments Yes 2 (1 standard drink = 0.6 oz pur e alcohol) Sex and Gender Information Value Date Recorded Sex Assigned at Not on file Legal Sex Male 4:54 AM SAILING INSTRUCTOR Gender Identity Not on file Sexual Orientation Straight 05/03/2020 10 :36 AM CDT documented as of this encounter Last Filed Vital Signs Vital Sign Reading Time Taken Comments Blood Pressure 151/77 08/31/2020 10:06 AM SAILING INSTRUCTOR Pulse 73 08/31/2020 10:06 AM SAILING INSTRUCTOR Temperature 36.4 ??C (97.5 ??F) 08/31/2020 10:[address] Respiratory Rate - - Oxygen Saturation 100% 08/31/2020 10:06 AM SAILING INSTRUCTOR Inhaled Oxygen Concentration - - Weight 96.6 kg (213 lb) 08/31/2020 10:06 AM SAILING INSTRUCTOR Height 190.5 cm (6' 3 ) 08/31/2020 10:06 AM SAILING INSTRUCTOR Body Mass Index 26.62 08/31/2020 10:06 AM SAILING INSTRUCTOR documented in this encounter Progress Notes * Bruce Torre NP - 08/31/2020 11:15 AM CST Natividad Finch is a 60 y.o. male with end stage renal disease. He presents today for post operative follow up after undergoing creation of left AC fossa dialysis fistula (radial artery to median cubital /cephalic vein) on August [address] Aponte . He is not currently on dialysis. He states he is doing well without any arm or hand claudication, redness or drainage from the incision. He reports tingling in his fingers bilaterally but states he had this prior to his surgery. I have reviewed his health history form, signed it accordingly and will be scanned into the EMR. he has a current medication list which includes the following prescription(s): acetaminophen, amlodipine (NORVASC), aspirin, bisacodyl (DULCOLAX), cyanocobalamin (VITAMIN B-12), famotidine (PEPCID), metoprolol tartrate (LOPRESSOR), nitroglycerin (NITROSTAT), sodium zirconium cyclosilicate, tamsulosin (FLOMAX), ciprofloxacin (CIPRO), cyclobenzaprine (FLEXERIL), lactulose, omeprazole (PRILOSEC), oxycodone (ROXICODONE), oxycodone (ROXICODONE), and sennosides. He has No Known Allergies. He does not smoke, he quit two years ago. On physical exam today this is a pleasant male in no apparent distress. His vital signs today are Blood pressure 151/77, pulse 73, temperature 36.4 ??C (97.5 ??F), height 190.5 cm (6' 3 ), weight 96.6 kg (213 lb), SpO2 100 %. His left arm incision is well healed with no redness or drainage. He has a good thrill and bruit over the fistula and a strong radial pulse. 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 He has no ulcerations or tissue loss. Vascular duplex performed today shows 2180 cc/min with No evidence of stenosis noted in the venous outflow vessel. Compression of hematoma surrounding fistula at antecubital fossa level causing in increase in velocity. Bruce Torre NP Section of Vascular Surgery [facility] MD Chucho Toledo MD Cosigned by Chucho Aponte MD at 09/01/2020 2:48 PM SAILING INSTRUCTOR ING INSTRUCTOR ING INSTRUCTOR documented in this encounter Plan of Treatment Scheduled Procedures Name Priority Associated Diagnoses Date/Ti me TRANSPLANT KIDNEY ESRD (end stage renal disease) ([facility]) documented as of this encounter Results * US Hemodialysis Access (09/28/2020 9:49 AM SAILING INSTRUCTOR) Anatomical Region Laterality Modality Body N/A Ultrasound 09/28/2020 9:08 AM SAILING INSTRUCTOR Narrative 09/28/2020 1:35 PM SAILING INSTRUCTOR [employer] [facility] [employer] [facility] - Department of Vascular Surgery, Vascular Laboratory [address] [place] [id number] Dialysis Access Fistula/Graft Duplex Report Patient Name: NATIVIDAD FINCH J ?? : 1960 (60y 7m) ??Gender: M Study Date: 09/28/2020 9:08:31 AM Coordinator Hotels: RHYS ??Location: [facility] Order Provider: BRUCE TORRE Quality: Adequate Ref.Provider: BRUCE TORRE Procedures: Vascular Report: Left Upper Extremity Arterial-Venous Fistula Duplex Exam. Radial artery to Cephalic vein ( Medial cubital vein). Indications: Arteriovenous fistula, acquired. Measurements: Diameter/Depth ?Velocities ? Measurement ? Value ?Units ?Measurement ? Value ?Units ? Lt Anastomosis Diameter ? 0.14 ? cm ? Lt Inflow Artery ?193.80 ? cm/s ? Lt Anastomosis Depth ?1.83 ? cm ? Lt Anastomosis ?656.00 ? cm/s ? Lt Outflow A/C Diameter ? 0.66 ? cm ? Lt Outflow Antecubital ?317.90 ? cm/s ? Lt Outflow A/C Depth ?0.34 ? cm ? Lt Outflow Vein Dist Arm ?108.40 ? cm/s ? Lt Outflow Distal Arm Diameter ?0.92 ? cm ? Lt Outflow Vein Mid Arm ? 103.70 ? cm/s ? Lt Outflow Distal Arm Depth ? 0.32 ? cm ? Lt Outflow Vein Prox Arm ?141.40 ? cm/s ? Lt Outflow Mid Arm Diameter ? 0.86 ? cm ? Lt Deep Vein Clothier ? 139.10 ? cm/s ? Lt Outflow Mid Arm Depth ?1.07 ? cm ? Lt Axillary Vein ?37.00 ?cm/s ? Lt Outflow Proximal Arm Diameter ?0.73 ? cm ? Lt Subclavian Vein ?148.00 ? cm/s ? Lt Outflow Proximal Arm Depth ? 0.96 ? cm ? Lt Volume Flow Average ?1505.00 ?cc/min ? Lt Deep Vein Clothier Diameter ?0.72 ? cm ? Lt Deep Vein Clothier Depth ? 1.28 ? cm ? - Findings: Performing Coordinator Hotels: Rhys Bryant, RVT, RDMS, RDCS, ACS. [place] Arterial Inflow Normal: No evidence of arterial stenosis in the inflow vessel. Anastomosis: Systolic velocity ratio is 3.38 which is consistent with >50% narrowing at the anastomosis. There is significant proliferation of the vein intima causing neointimal hyperplasia and vein lumen diameter reduction to less than 2mm at the anastomosis. Previously noted hematoma is measuring 1.1 by 0.8cm- appears to be reduced in size compared to the study on 09/01/2020. Venous Outflow: No evidence of stenosis noted in the venous outflow vessel. Incidental finding- there is a branch confluencing into cephalic vein at the distal arm level measuring 4.1mm. Volume Flow: Three volume flow measurements are performed, an averaged volume flow is 1505cc/min. Provider Notification: Results called to Bruce Torre NP at 10am. Conclusions: 1. Patent hemodialysis fistula with a >50% narrowing at the anastomosis. 2. Volume flow 1505cc/min. History: 08/01/2020 left AVF- radial to median antecubital vein. Previous Studies: Previous study on 08/31/2020. Disclaimer: The signing physician has reviewed all images pertaining to this test. These images and this report will be retained in the patient chart by the Vascular Laboratory for the legally required time period. This chart constitutes the legal record of any testing performed. Electronically Signed By: Chucho Aponte MD [facility] [phone] 2020-09-28 13:35:03 SAILING INSTRUCTOR CC: CC: Procedure Note Chucho Aponte MD - 09/28/2020 [facility] - Department of Vascular Surgery,Vascular Laboratory [address] [place] [address] Dialysis Access Fistula/Graft Duplex Report Patient Name: NATIVIDAD FINCH JPatient ID: [id number] : 1960 (60y 7m) Gender: MStudy Date: 09/28/2020 9:08:31 AM RHYS Location: [facility] Order Provider: BRUCE TORREQuality: Adequate Ref.Provider: BRUCE TORRE Procedures: Vascular Report: Left Upper Extremity Arterial-Venous Fistula Duplex Exam.Radial artery to Cephalic vein ( Medial cubital vein). Indications: Arteriovenous fistula, acquired. Measurements: Diameter/Depth Velocities Measurement Value Units MeasurementValue Units Lt Anastomosis Diameter 0.14 cm Lt Inflow Stzpcv184.80 cm/s Lt Anastomosis Depth 1.83 cm Lt Pwnglgwzdzg534.00 cm/s Lt Outflow A/C Diameter 0.66 cm Lt OutflowAntecubital 317.90 cm/s Lt Outflow A/C Depth 0.34 cm Lt Outflow Vein DistArm 108.40 cm/s Lt Outflow Distal Arm Diameter 0.92 cm Lt Outflow Vein MidArm 103.70 cm/s Lt Outflow Distal Arm Depth 0.32 cm Lt Outflow Vein ProxArm 141.40 cm/s Lt Outflow Mid Arm Diameter 0.86 cm Lt Deep VeinConfluence 139.10 cm/s Lt Outflow Mid Arm Depth 1.07 cm Lt Axillary Vein37.00 cm/s Lt Outflow Proximal Arm Diameter 0.73 cm Lt Subclavian Fgcl229.00 cm/s Lt Outflow Proximal Arm Depth 0.96 cm Lt Volume FlowAverage 1505.00 cc/min Lt Deep Vein Clothier Diameter 0.72 cm Lt Deep Vein Clothier Depth 1.28 cm - Findings: Performing Coordinator Hotels: Rhys Bryant, DICKSON, RDMS, RDCS, ACS. [place] Arterial Inflow Normal: No evidence of arterial stenosis in theinflow vessel. Anastomosis: Systolic velocity ratio is 3.38 which is consistent with >50%narrowing at the anastomosis. There is significant proliferation of the vein intima causing neointimalhyperplasia and vein lumen diameter reduction to less than 2mm at the anastomosis. Previously noted hematoma is measuring 1.1 by 0.8cm- appears to be reducedin size compared to the study on 09/01/2020. Venous Outflow: No evidence of stenosis noted in the venous outflowvessel. Incidental finding- there is a branch confluencing into cephalic vein atthe distal arm level measuring 4.1mm. Volume Flow: Three volume flow measurements are performed, an averagedvolume flow is 1505cc/min. Provider Notification: Results called to Bruce Torre NP at 10am. Conclusions: 1. Patent hemodialysis fistula with a >50% narrowing at the anastomosis. 2. Volume flow 1505cc/min. History: 08/01/2020 left AVF- radial to median antecubital vein. Previous Studies: Previous study on 08/31/2020. Disclaimer: The signing physician has reviewed all images pertaining tothis test. These images and this report will be retained in the patient chart by theVascular Laboratory for the legally required time period. This chart constitutes the legalrecord of any testing performed. Electronically Signed By: Chucho Aponte MD [facility] [phone] 2020-09-28 13:35:03 SAILING INSTRUCTOR CC: CC: Bruce Torre EDGING SUPERVISOR IMG PROCEDURES Final Result documented in this encounter Visit Diagnoses Diagnosis Arteriovenous fistula, acquired (CMS/HCC) (HCC) Arteriovenous fistula, acquired Arteriovenous fistula, acquired (CMS/HCC) (HCC) Arteriovenous fistula, acquired documented in this encounter Historical Medications * This list may reflect changes made after this encounter. famotidine (PEPCID) 20 mg tablet Take 20 mg by mouth 2 (two) times a day 0 sodium zirconium cyclosilicate (LOKELMA ORAL)Indications:LO WER K LEVELS Take 1 tablet by mouth every other day 1 added in this encounter Care Teams International Accountant Relationship Specialty Start Date End Date Gerardo Shah MD PCP - General Internal Medicine 09/30/18 Suzette Strickland MD [address] [facility] [address] [place] [address] Referring Physician Nephrology 02/15/20 Rita Tapia, RN [address] [place], [place] [id number] Registered Nurse Relief Operator 02/15/20 documented as of this encounter
--- OUTSIDE RECORDS SUMMARY | 2024-10-16 06:39 | XMS_ITS | Encounter Summary ---
Author Organization [facility] Healthcare Address [address] [place] [address] Care Team Providers Care Seal Skinner Name Role Phone Gerardo Shah MD Primary Care Provider [phone] Suzette Strickland MD Unavailable [phone] Rita Tapia RN Unavailable [phone] Reason for Visit * Reason Onset Date Comments Waitlist Maintenance 10/03/2020 Encounter Details Date Type Department Care Team (Late st Contact Info) Description 10/03/2020 Documentation [facility] Transplant Kidney [address] [address] [address] [id number] [place] [address] Aditi Steel Waitlist Maintenance Social History Tobacco Use Types Packs/Day Years Used Date Smoking Tobacco: Former Cigarettes 1.5 40 0 04/11/1978 - 2017 Smokeless Tobacco: Never Alcohol Use Standard Drinks/Week Comments Yes 2 (1 standard drink = 0.6 oz pur e alcohol) Sex and Gender Information Value Date Recorded Sex Assigned at Not on file Legal Sex Male 4:54 AM BIOMED TECH Gender Identity Not on file Sexual Orientation Straight 05/03/2020 10 :36 AM CDT documented as of this encounter Progress Notes * Aditi Steel - 10/03/2020 11:14 PM CST [facility] Introduction Letter mailed to patient. This letter explains that Care will be calling on behalf of interpretive program coordinator. ED TECH documented in this encounter Plan of Treatment Scheduled Procedures Name Priority Associated Diagnoses Date/Ti me TRANSPLANT KIDNEY ESRD (end stage renal disease) ([facility]) documented as of this encounter Visit Diagnoses Not on filedocumented in this encounter Care Teams Seal Skinner Relationship Specialty Start Date End Date Gerardo Shah MD PCP - General Internal Medicine 09/30/18 Suzette Strickland MD [address] [facility] [address] [place] [address] Referring Physician Nephrology 02/15/20 Rita Tapia, RN [address] [place], [place] [id number] Registered Nurse Fractionation Supervisor 02/15/20 documented as of this encounter
--- OUTSIDE RECORDS SUMMARY | 2024-10-16 06:39 | XMS_ITS | Encounter Summary ---
Author Organization [facility] Healthcare Address [address] [place] [address] Care Team Providers Care Waste Water Plant Operator Name Role Phone Gerardo Shah MD Primary Care Provider [phone] Suzette Strickland MD Unavailable [phone] Rita Tapia RN Unavailable [phone] Encounter Details Date Type Department Care Team (Late st Contact Info) Description 10/06/2020 Documentation [facility] Transplant Kidney [address] [facility] [address] Mail[address] [id number] [place], [place] [id number] Rita Tapia, RN [address] [place], [place] [id number] Social History Tobacco Use Types Packs/Day Years Used Date Smoking Tobacco: Former Cigarettes 1.5 40 0 04/11/1978 - 2017 Smokeless Tobacco: Never Alcohol Use Standard Drinks/Week Comments Yes 1 (1 standard drink = 0.6 oz pur e alcohol) OCC Sex and Gender Information Value Date Recorded Sex Assigned at Not on file Legal Sex Male 4:54 AM DEPARTMENT STORE GENERAL MANAGER Gender Identity Not on file Sexual Orientation Straight 05/03/2020 10 :36 AM CDT documented as of this encounter Progress Notes * Rita Tapia RN - 10/06/2020 8:13 AM CST Saved POA and consents to chart RTMENT STORE GENERAL MANAGER documented in this encounter Plan of Treatment Scheduled Procedures Name Priority Associated Diagnoses Date/Ti me TRANSPLANT KIDNEY ESRD (end stage renal disease) ([facility]) documented as of this encounter Visit Diagnoses Not on filedocumented in this encounter Care Teams Waste Water Plant Operator Relationship Specialty Start Date End Date Gerardo Shah MD PCP - General Internal Medicine 09/30/18 Suzette Strickland MD [address] [place] [address] Referring Physician Nephrology 02/15/20 Rita Tapia, RN [address] [place], [place] [id number] Registered Nurse Potato Inspector 02/15/20 documented as of this encounter
--- OUTSIDE RECORDS SUMMARY | 2024-10-16 06:39 | XMS_ITS | Encounter Summary ---
Author Organization [facility] Healthcare Address [address] [place] [address] Care Team Providers Care Hospital Mortician Name Role Phone Gerardo Shah MD Primary Care Provider [phone] Suzette Strickland MD Unavailable [phone] Rita Tapia RN Unavailable [phone] Encounter Details Date Type Department Care Team (Late st Contact Info) Description 08/16/2020 Telephone [facility] Transplant Kidney [address] [facility] 340 Mailstop [phone] [place] [address] Zhane Hatfield Social History Tobacco Use Types Packs/Day Years Used Date Smoking Tobacco: Former Cigarettes 1.5 40 0 04/11/1978 - 2017 Smokeless Tobacco: Never Alcohol Use Standard Drinks/Week Comments Yes 2 (1 standard drink = 0.6 oz pur e alcohol) Sex and Gender Information Value Date Recorded Sex Assigned at Not on file Legal Sex Male 4:54 AM SENIOR SCHEDULER Gender Identity Not on file Sexual Orientation Straight 05/03/2020 10 :36 AM CDT documented as of this encounter Miscellaneous Notes * Telephone Encounter - Zhane Hatfield - 08/16/2020 9:38 AM CDT Received vm from Holly who stated SHREYA is being faxed and there is no auth number is assigned but will be at time of admission. This approval has no expiration. Please call at time of admission and pt's block and case maker is Cami so call her if any changes to pt's status. Qs feel free to call me at [phone] documented in this encounter Plan of Treatment Scheduled Procedures Name Priority Associated Diagnoses Date/Ti me TRANSPLANT KIDNEY ESRD (end stage renal disease) ([facility]) documented as of this encounter Visit Diagnoses Not on filedocumented in this encounter Care Teams Hospital Mortician Relationship Specialty Start Date End Date Gerardo Shah MD PCP - General Internal Medicine 09/30/18 Suzette Strickland MD [address] [facility] [address] [place] [address] Referring Physician Nephrology 02/15/20 Rita Tapia, RN [address] [place] [address] Registered Nurse Student Truck Driver 02/15/20 documented as of this encounter
--- OUTSIDE RECORDS SUMMARY | 2024-10-16 06:39 | XMS_ITS | Encounter Summary ---
Author Organization [facility] Healthcare Address [address] [place] [address] Care Team Providers Care Sucker Machine Operator Name Role Phone Gerardo Shah MD Primary Care Provider [phone] Suzette Strickland MD Unavailable [phone] Rita Tapia RN Unavailable [phone] Reason for Visit * Reason Onset Date Comments Waitlist Status Update 08/15/2020 active Encounter Details Date Type Department Care Team (Late st Contact Info) Description 08/15/2020 Documentation [facility] and [facility] Transplant Kidney [address] [address] Mailstop [phone] [place] [address] Erica Rosales Waitlist Status Update (active) Social History Tobacco Use Types Packs/Day Years Used Date Smoking Tobacco: Former Cigarettes 1.5 40 0 04/11/1978 - 2017 Smokeless Tobacco: Never Alcohol Use Standard Drinks/Week Comments Yes 2 (1 standard drink = 0.6 oz pur e alcohol) Sex and Gender Information Value Date Recorded Sex Assigned at Not on file 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 Gender Identity Not on file Sexual Orientation Straight 05/03/2020 10 :36 AM CDT documented as of this encounter Progress Notes * Erica Rosales - 08/15/2020 5:49 PM CDT Patient status changed to ACTIVE in [facility]- letter sent to patient, PCP, and Referring MD Kidney Candidate Successfully updated registration for Abel Browne (SSN:[id number]) documented in this encounter Plan of Treatment Scheduled Procedures Name Priority Associated Diagnoses Date/Ti me TRANSPLANT KIDNEY ESRD (end stage renal disease) ([facility]) documented as of this encounter Visit Diagnoses Not on filedocumented in this encounter Care Teams Sucker Machine Operator Relationship Specialty Start Date End Date Gerardo Shah MD PCP - General Internal Medicine 09/30/18 Suzette Strickland MD [facility] [address] [place] [address] Referring Physician Nephrology 02/15/20 Rita Tapia, RN [address] [place], [place] [id number] Registered Nurse Facilities Operations Technician 02/15/20 documented as of this encounter
--- OUTSIDE RECORDS SUMMARY | 2024-10-16 06:39 | XMS_ITS | Encounter Summary ---
Author Organization [facility] Healthcare Address [address] [place] [address] Care Team Providers Care Diesel Power Mechanic Name Role Phone Gerardo Shah MD Primary Care Provider [phone] Suzette Strickland MD Unavailable [phone] Rita Tapia RN Unavailable [phone] Encounter Details Date Type Department Care Team (Late st Contact Info) Description 08/15/2020 Telephone [facility] Transplant Kidney [address] [address] Mailstop [phone] [place] [address] Zhane Hatfield Social History Tobacco Use Types Packs/Day Years Used Date Smoking Tobacco: Former Cigarettes 1.5 40 0 04/11/1978 - 2017 Smokeless Tobacco: Never Alcohol Use Standard Drinks/Week Comments Yes 2 (1 standard drink = 0.6 oz pur e alcohol) Sex and Gender Information Value Date Recorded Sex Assigned at Not on file 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 Ref# [id number]. Letter date 08-12-2020 and filed in Detail Drafter. Pt will need Approval for Admission. Call [facility] at [phone]. documented in this encounter Plan of Treatment Scheduled Procedures Name Priority Associated Diagnoses Date/Ti me TRANSPLANT KIDNEY ESRD (end stage renal disease) ([facility]) documented as of this encounter Visit Diagnoses Not on filedocumented in this encounter Care Teams Diesel Power Mechanic Relationship Specialty Start Date End Date Gerardo Shah MD PCP - General Internal Medicine 09/30/18 Suzette Strickland MD [address] [facility] [address] [place] [address] Referring Physician Nephrology 02/15/20 Rita Tapia, RN [address] [place] [address] Registered Nurse Sales Vice President 02/15/20 documented as of this encounter
--- OUTSIDE RECORDS SUMMARY | 2024-10-16 06:39 | XMS_ITS | Encounter Summary ---
Author Organization [facility] Healthcare Address [address] [place] [address] Care Team Providers Care Chief Airline Radio Operator Name Role Phone Gerardo Shah MD Primary Care Provider [phone] Suzette Strickland MD Unavailable [phone] Rita Tapia RN Unavailable [phone] Encounter Details Date Type Department Care Team (Late st Contact Info) Description 08/11/2020 11:15 AM CDT Lab [address] [address] Tatianna Moyer MD [address] [facility] [address] [place] [address] ESRD (end stage renal disease) ([facility], [...] file Legal Sex Male 4:54 AM CLINICAL DOCUMENTATION SPEC Gender Identity Not on file Sexual Orientation Straight 05/03/2020 10 :36 AM CDT documented as of this encounter Discharge Disposition [...] SCHEDULE (CLASS I AND CLASS II) Routine 08/10/2020 10:00 AM CDT ESRD (end stage renal disease) ([facility]) HLA ANTIBODY SCREEN BY PRA Routine 08/10/2020 10:00 AM CDT ESRD (end stage renal disease) ([facility]) HLA ANTIBODY SCREEN - SAB (CLASS I AND CLASS II) Routine 08/10/2020 10:00 AM CDT ESRD (end stage renal disease) ([facility]) documented in this encounter Results * HLA Antibody Screen - SAB (Class I and Class II) (08/10/2020 10:00 AM CDT) Class I Treatment EDTA [facility] Class I Dilution 1:1 [facility] Class I Tested Date 08/11/2020 [facility] Class I Result Negative [facility] Class I CPRA 0 [facility] Class I Low Risk B37 [facility] Class II Treatment EDTA [facility] Class II Dilution 1:1 [facility] Class II Tested Date 08/11/2020 [facility] Class II Result Negative [facility] Class II CPRA 0 [facility] Class II Low Risk DQ7; DP1 [facility] 08/10/2020 10:0 0 AM CDT 08/12/2020 8:42 AM CDT Narrative [facility]ISTOT[facility] - 08/12/2020 8:42 AM CDT Single-antigen HLA antibody screen is performed on serum samples using a method developed and validated by the [facility] HLA laboratory based on an FDA-approved IVD kit (LABScreen Single-Antigen, [employer], [place], [place]). All patient serum samples are pretreated with EDTA before the screen to prevent complement interference. Additional serum treatments, such as adsorption and DTT treatment, may be performed as indicated. ??Interpretive comments: Low risk: MFI 2029-1007. Moderate risk: MFI 9975-9550. Increased risk: MFI >/= 5000. The presence [...] antigens to avoid. Testing performed at the [facility] HLA Laboratory, [address] [place] [address], 5th floor, [place], [address]. [place] # [id number]. Gracie Rubi M.D., Ph.D., Associate HLA Brusher Hand Harman Flores M.D., Ph.D., HLA Brusher Hand Stan Patel M.D., Principal Clerk, [facility] Clinical Laboratories Current methodology and interpretive comments last revised on 01/05/2020. us Tatianna Moyer MD LAB BLOOD ORDERABL ES Final Result [facility]ISTOT[facility] * Collection Task for HLA Antibody Screen (08/10/2020 10:00 AM CDT) HLA Antibody Screen by PRA Received [facility] Blood specimen (specimen) 08/10/2020 10:00 AM CDT 08/11/2020 2:50 PM CDT us Tatianna Moyer MD LAB BLOOD ORDERABL ES Final Result [facility] Department [place] [address] * HLA Antibody Screen by PRA or SAB per Schedule (Class I and Class II) (08/10/2020 10:00 AM CDT) Blood specimen (specimen) 08/10/2020 10:00 AM CDT Narrative [facility] - CLINICAL DOCUMENTATION SPEC Sample received in lab. ??Single Antigen Antibody Screen ordered. Tatianna Moyer MD LAB BLOOD ORDERABL ES Final Result Performing Organization Address City/[facility]/ZIP Co de Phone Number HISTOTRAC documented in this encounter Visit Diagnoses Diagnosis ESRD (end stage renal disease) (CMS/HCC) ([facility]) End stage renal disease documented in this encounter Care Teams Chief Airline Radio Operator Relationship Specialty Start Date End Date Gerardo Shah MD PCP - General Internal Medicine 09/30/18 Suzette Strickland MD [address] [facility] [address] [place] [address] Referring Physician Nephrology 02/15/20 Rita Tapia, RN [address] [place] [address] Registered Nurse Java Developer With Security Clearance 02/15/20 documented as of this encounter
--- OUTSIDE RECORDS SUMMARY | 2024-10-16 06:39 | XMS_ITS | Encounter Summary ---
Author Organization [facility] Address [address] [place] [address] Phone Care Team Providers Care Outside Sales Executive Name Role Phone Gerardo Shah MD Primary Care Provider [phone] Suzette Strickland MD Unavailable [phone] Rita Tapia RN Unavailable [phone] Encounter Details Date Type Department Care Team (Late st Contact Info) Description 08/17/2020 Telephone [facility] Urology [address] [facility] [address] [place] [address] Ilana Bingham Social History Tobacco Use Types Packs/Day Years Used Date Smoking Tobacco: Former Cigarettes 1.5 40 0 04/11/1978 - 2017 Smokeless Tobacco: Never Alcohol Use Standard Drinks/Week Comments Yes 2 (1 standard drink = 0.6 oz pur e alcohol) Sex and Gender Information Value Date Recorded Sex Assigned at Not on file 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 Thank you * Telephone Encounter - Ilana Bingham - 08/17/2020 4:05 PM CDT [facility] has been seeing patient for wound assessment. He has one area right lower quadrant thathas a Blue and clear loop of a suture that is protruding out of the wound. Otherwise it is healing well, very little draining, no redness, no pain, no signs of infection. documented in this encounter Plan of Treatment Scheduled Procedures Name Priority Associated Diagnoses Date/Ti me TRANSPLANT KIDNEY ESRD (end stage renal disease) ([facility]) documented as of this encounter Visit Diagnoses Not on filedocumented in this encounter Care Teams Outside Sales Executive Relationship Specialty Start Date End Date Gerardo Shah MD PCP - General Internal Medicine 09/30/18 Suzette Strickland MD [facility] [address] [place] [address] Referring Physician Nephrology 02/15/20 Rita Tapia, RN [address] [place] [address] Registered Nurse Account Manager Education 02/15/20 documented as of this encounter
--- OUTSIDE RECORDS SUMMARY | 2024-10-16 06:39 | XMS_ITS | Encounter Summary ---
Author Organization [facility] Healthcare Address [address] [place] [address] Care Team Providers Care Bond Runner Name Role Phone Gerardo Shah MD Primary Care Provider [phone] Suzette Strickland MD Unavailable [phone] Rita Tapia RN Unavailable [phone] Encounter Details Date Type Department Care Team (Late st Contact Info) Description 08/11/2020 Telephone 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 He had been above 20 but then had a nephrectomy and is now below 20 and had a fistula placed and is getting ready to start dialysis Received a call from Holly the new human services case manager following this pt. Holly stated she is needing an updated eGFR on pt because reviewing previous notes, it stated pt's GFR was too high and he was not candidate for txp. Please fax labs to me at [phone]. My phone is [phone] Thank you. documented in this encounter Plan of Treatment Scheduled Procedures Name Priority Associated Diagnoses Date/Ti az TRANSPLANT KIDNEY ESRD (end stage renal disease) ([facility]) documented as of this encounter Visit Diagnoses Not on filedocumented in this encounter Care Teams Bond Runner Relationship Specialty Start Date End Date Gerardo Shah MD PCP - General Internal Medicine 09/30/18 Suzette Strickland MD [address] [facility] [address] [place] [address] Referring Physician Nephrology 02/15/20 Rita Tapia, RN [address] [place], [place] [address] Registered Nurse Patient Care Technician Instructor 02/15/20 documented as of this encounter
--- OUTSIDE RECORDS SUMMARY | 2024-10-16 06:39 | XMS_ITS | Encounter Summary ---
Author Organization [facility] Healthcare Address [address] [place] [address] Care Team Providers Care Director Industrial Nursing Name Role Phone Gerardo Shah MD Primary Care Provider [phone] Suzette Strickland MD Unavailable [phone] Rita Tapia RN Unavailable [phone] Encounter Details Date Type Department Care Team (Late st Contact Info) Description 08/15/2020 Telephone [facility] Transplant Kidney [address] [address] Mailstop [phone] [place] [address] Zhane Hatfield Social History Tobacco Use Types Packs/Day Years Used Date Smoking Tobacco: Former Cigarettes 1.5 40 0 04/11/1978 - 2017 Smokeless Tobacco: Never Alcohol Use Standard Drinks/Week Comments Yes 2 (1 standard drink = 0.6 oz pur e alcohol) Sex and Gender Information Value Date Recorded Sex Assigned at Not on file 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 Approval: [id number]. Letter of approval filed in intermediate project manager. Pt can be actively listed when ready. documented in this encounter Plan of Treatment Scheduled Procedures Name Priority Associated Diagnoses Date/Ti me TRANSPLANT KIDNEY ESRD (end stage renal disease) ([facility]) documented as of this encounter Visit Diagnoses Not on filedocumented in this encounter Care Teams Director Industrial Nursing Relationship Specialty Start Date End Date Gerardo Shah MD PCP - General Internal Medicine 09/30/18 Suzette Strickland MD [address] [facility] [address] [place] [address] Referring Physician Nephrology 02/15/20 Rita Tapia, RN [address] [place], [place] [address] Registered Nurse Machine Feed Operator 02/15/20 documented as of this encounter
--- OUTSIDE RECORDS SUMMARY | 2024-10-16 06:39 | XMS_ITS | Encounter Summary ---
Author Organization [facility] Healthcare Address [address] [place] [address] Care Team Providers Care Fiberglass Machine Operator Name Role Phone Gerardo Shah MD Primary Care Provider [phone] Suzette Strickland MD Unavailable [phone] Rita Tapia RN Unavailable [phone] Encounter Details Date Type Department Care Team (Late st Contact Info) Description 08/05/2020 Telephone [facility] and [facility] Transplant Kidney [address] [address] Mailstop [phone] [place], [place] [id number] Zhane Hatfield Social History Tobacco Use Types Packs/Day Years Used Date Smoking Tobacco: Former Cigarettes 1.5 40 0 04/11/1978 - 2017 Smokeless Tobacco: Never Alcohol Use Standard Drinks/Week Comments Yes 2 (1 standard drink = 0.6 oz pur e alcohol) Sex and Gender Information Value Date Recorded Sex Assigned at Not on file 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 Finance will handle and notify when approval received. Kirstin - please put together our txp clin package and fax to: Kiley Oscar at fax: [phone] Requesting txp approval. Thank you - Zhane documented in this encounter Plan of Treatment Scheduled Procedures Name Priority Associated Diagnoses Date/Ti me TRANSPLANT KIDNEY ESRD (end stage renal disease) ([facility]) documented as of this encounter Visit Diagnoses Not on filedocumented in this encounter Care Teams Fiberglass Machine Operator Relationship Specialty Start Date End Date Gerardo Shah MD PCP - General Internal Medicine 09/30/18 Suzette Strickland MD [address] [facility] [address] [place] [address] Referring Physician Nephrology 02/15/20 Rita Tapia, RN [address] [place] [address] Registered Nurse Front Counter Attendant 02/15/20 documented as of this encounter
--- OUTSIDE RECORDS SUMMARY | 2024-10-16 06:39 | XMS_ITS | Encounter Summary ---
Author Organization [facility] Healthcare Address [address] [place] [address] Care Team Providers Care Water Resource Specialist Name Role Phone Gerardo Shah MD Primary Care Provider [phone] Suzette Strickland MD Unavailable [phone] Rita Tapia RN Unavailable [phone] Encounter Details Date Type Department Care Team (Late st Contact Info) Description 08/15/2020 Documentation [facility] and [facility] Transplant Kidney [address] [facility] [address] Mailstop [phone] [place], [place] [id number] Rita Tapia, RN [address] [place], [place] [id number] Social History Tobacco Use Types Packs/Day Years Used Date Smoking Tobacco: Former Cigarettes 1.5 40 0 04/11/1978 - 2017 Smokeless Tobacco: Never Alcohol Use Standard Drinks/Week Comments Yes 2 (1 standard drink = 0.6 oz pur e alcohol) Sex and Gender Information Value Date Recorded Sex Assigned at Not on file 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 documented in this encounter Plan of Treatment Scheduled Procedures Name Priority Associated Diagnoses Date/Ti me TRANSPLANT KIDNEY ESRD (end stage renal disease) ([facility]) documented as of this encounter Visit Diagnoses Not on filedocumented in this encounter Care Teams Water Resource Specialist Relationship Specialty Start Date End Date Gerardo Shah MD PCP - General Internal Medicine 09/30/18 Suzette Strickland MD [address] [facility] [address] [place] [address] Referring Physician Nephrology 02/15/20 Rita Tapia, RN [address] [place] [address] Registered Nurse Museum Educator 02/15/20 documented as of this encounter
--- OUTSIDE RECORDS SUMMARY | 2024-10-16 06:39 | XMS_ITS | Encounter Summary ---
Author Organization [facility] Address [address] [place] [address] Phone Care Team Providers Care [employer] Principal Name Role Phone Gerardo Shah MD Primary Care Provider [phone] Suzette Strickland MD Unavailable [phone] Rita Tapia RN Unavailable [phone] Reason for Referral * Diagnostic Imaging (Routine) - Closed Specialty Diagnoses / Procedures Referred By Kishore t Referred To Contact Radiology Diagnoses Malignant neoplasm of right kidney (HCC) Polycystic kidney disease, autosomal dominant Procedures MRI Abdomen Kidney WO Contrast Marc Khan MD [address] [facility] [id number] [place] [address] Phone: tel: fax: [address] [phone] Referral ID Status Reason Start Date Expiration Date Visits Re quested Visits Authorized [id number] Closed 09/07/2020 10/07/2021 1 1 T ADVISOR Reason for Visit * Reason Comments Renal Cancer s/p R nephrectomy -Papillary renal cell carcinoma, type 2, 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, WHO/ISUP grade 3, 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 Urology [address] [facility] Advanced Medicine 11th [place] [address] [place] [address] Marc Khan MD [address] [facility] [id number] [place] [address] Malignant neoplasm of right kidney (CMS/HCC) (Primary Dx); Polycystic kidney disease, autosomal dominant Social History Tobacco Use Types Packs/Day Years Used Date Smoking Tobacco: Former Cigarettes 1.5 40 0 04/11/1978 - 2017 Smokeless Tobacco: Never Alcohol Use Standard Drinks/Week Comments Yes 2 (1 standard drink = 0.6 oz pur e alcohol) Sex and Gender Information Value Date Recorded Sex Assigned at Not on file Legal Sex Male 4:54 AM GUEST ADVISOR Gender Identity Not on file Sexual Orientation Straight 05/03/2020 10 :36 AM CDT documented as of this encounter Progress Notes * Marc Khan MD - 09/07/2020 8:30 AM CST Subjective/Objective Patient ID: Abel Browne is a 60 y.o. male. 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 Right lap nephrectomy in May 2020 complicated with postop wound infection. Also, a 1 cm papillary RCCA was discovered incidentally in the specimen. He is doing well. He has a LUE fistula, but he has not started HD. He had an MRI today. Review of Systems Constitutional: Negative for chills, fever and unexpected weight change. Respiratory: Negative for shortness of breath. Gastrointestinal: Negative for abdominal distention, abdominal pain, nausea and vomiting. Genitourinary: Negative for difficulty urinating, dysuria, flank pain, frequency, hematuria and urgency. Physical Exam Constitutional: Appearance: He is well-developed. Eyes: Pupils: Pupils are equal, round, and reactive to light. Neck: Musculoskeletal: Normal range of motion. Pulmonary: Effort: Pulmonary effort is normal. No respiratory distress. Abdominal: Palpations: Abdomen is soft. Comments: His RLQ incision has healed. Musculoskeletal: Normal range of motion. Skin: General: Skin is warm and dry. Neurological: Mental Status: He is alert and oriented to person, place, and time. MRI today: IMPRESSION: 1. Postsurgical changes of right nephrectomy without residual nodular mass in the nephrectomy bed. ?? 2. Polycystic liver and kidney disease with stable appearance of hepatic and left renal cysts, almost entirely replacing the left renal parenchyma. No suspicious solid liver or kidney lesion. ?? 3. Resolution of right abdominal wall fluid collection. No residual fluid collection identified. ?? Dictated by: Rj Downs M.D. I personally reviewed the images and I agree with the radiologist's report. Assessment/Plan ADPKD with incidental discovery of a small papillary RCCA. We have agreed on surveillance. He will follow-up in one year with a non-contrast MRI. His wound has healed. 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, WHO/ISUP grade 3, arisingin the background of end-stage cystic kidney disease.pT1aNx Orders: - MRI Abdomen Kidney WO Contrast; Future Polycystic kidney disease, autosomal dominant (Q61.2) - MRI Abdomen Kidney WO Contrast; Future T ADVISOR documented in this encounter Plan of Treatment Scheduled Procedures Name Priority Associated Diagnoses Date/Ti me TRANSPLANT KIDNEY ESRD (end stage renal disease) (CMS/HCC) documented as of this encounter Procedures Procedure Name Priority Date/Time Associated Diagnosis Comments POCT URINALYSIS DIPSTICK Routine 09/07/2020 8:57 AM GUEST ADVISOR Malignant neoplasm of right kidney (CMS/HCC) Polycystic kidney disease, autosomal dominant documented in this encounter Results * MRI Abdomen Kidney WO Contrast (09/07/2021 1:05 PM GUEST ADVISOR) Anatomical Region Laterality Modality Body N/A Magnetic Resonan ce 09/07/2021 2:54 PM GUEST ADVISOR Impressions 09/07/2021 3:28 PM GUEST ADVISOR 1. Postsurgical changes of right nephrectomy without [...] Chris Santana M.D. Narrative 09/07/2021 3:28 PM GUEST ADVISOR EXAMINATION: MAGNETIC RESONANCE IMAGING OF THE ABDOMEN [...] by: Chris Santana M.D. Marc Khan MD [facility] MRI PROCEDURES Final Result * (ABNORMAL) POCT urinalysis dipstick (09/07/2020 8:57 AM GUEST ADVISOR) Glucose, ur, POC Negative Negative mg/dL Ketones, ur, POC Negative Negative Blood, ur, POC Negative Negative pH, ur, POC 5.0 5.0 - 8.0 Protein, ur, POC Trace(A) Negative Nitrite, ur, POC Negative Negative Leukocytes, ur, POC Negative Negative Lot Number x Urine 09/07/2020 8:57 AM GUEST ADVISOR Marc Khan MD POINT OF CARE TEST ORDERA BLES Final Result documented in this encounter Visit Diagnoses Diagnosis Malignant neoplasm of right kidney (HCC)- Primary Polycystic kidney disease, autosomal dominant Congenital polycystic kidney, autosomal dominant Malignant neoplasm of right kidney (HCC) Polycystic kidney disease, autosomal dominant Congenital polycystic kidney, autosomal dominant documented in this encounter Care Teams [employer] Principal Relationship Specialty Start Date End Date Gerardo Shah MD PCP - General Internal Medicine 09/30/18 Suzette Strickland MD [address] [facility] [address] [place] [address] Referring Physician Nephrology 02/15/20 Rita Tapia, RN [address] [place] [address] Registered Nurse Health Analytics Consultant 02/15/20 documented as of this encounter
--- OUTSIDE RECORDS SUMMARY | 2024-10-16 06:39 | XMS_ITS | Encounter Summary ---
Author Organization [facility] Address [address] [place] [address] Care Team Providers Care Securities Compliance Examiner Name Role Phone Gerardo Shah MD Primary Care Provider [phone] Suzette Strickland MD Unavailable [phone] Rita Tapia RN Unavailable [phone] Encounter Details Date Type Department Care Team (Late st Contact Info) Description 08/11/[address] [facility] Transplant Kidney [address] [address] [address]stop [phone] [place] [address] Zhane Hatfield Social History Tobacco Use Types Packs/Day Years Used Date Smoking Tobacco: Former Cigarettes 1.5 40 0 04/11/1978 - 2017 Smokeless Tobacco: Never Alcohol Use Standard Drinks/Week Comments Yes 2 (1 standard drink = 0.6 oz pur e alcohol) Sex and Gender Information Value Date Recorded Sex Assigned at Not on file Legal Sex Male 4:54 AM 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 [employer] is requesting to see that his GFR is below 20 and I couldn't find anything in labs. Thanks - Zhane documented in this encounter Plan of Treatment Scheduled Procedures Name Priority Associated Diagnoses Date/Ti me TRANSPLANT KIDNEY ESRD (end stage renal disease) ([facility]) documented as of this encounter Visit Diagnoses Not on filedocumented in this encounter Care Teams Securities Compliance Examiner Relationship Specialty Start Date End Date Gerardo Shah MD PCP - General Internal Medicine 09/30/18 Suzette Strickland MD [address] [facility] [address] [place] [address] Referring Physician Nephrology 02/15/20 Rita Tapia, RN [address] [place], [place] [id number] Registered Nurse Brass Molder Helper 02/15/20 documented as of this encounter
--- OUTSIDE RECORDS SUMMARY | 2024-10-16 06:39 | XMS_ITS | Encounter Summary ---
Author Organization [facility] Address [address] [place] [address] Phone Care Team Providers Care Senior [employer] Developer Name Role Phone Gerardo Shah MD Primary Care Provider [phone] Suzette Strickland MD Unavailable [phone] Rita Tapia RN Unavailable [phone] Reason for Visit * Diagnostic Imaging (Routine) - Closed Specialty Diagnoses / Procedures Referred By Kishore elkins Referred To Contact Vascular Surgery Diagnoses Arteriovenous fistula, acquired (CMS/HCC) (HCC) Procedures US Hemodialysis Access Bruce Torre NP Phone: tel: fax: [facility] Surgery [address] [facility] Advanced [facility] 8th [place] [address] [place] [address] Phone: tel: fax: Referral ID Status Reason Start Date Expiration Date Visits Re quested Visits Authorized [id number] Closed 08/31/2020 09/30/2021 99 99 Encounter Details Date Type Department Care Team (Latest Contact Info) Description 09/28/2020 9:30 AM STRUCTURAL STEEL ERECTOR Ancillary Procedure [facility] Surgery [address] [place] [address] Arteriovenous fistula, acquired (CMS/HCC) Social History Tobacco Use Types Packs/Day Years Used Date Smoking Tobacco: Former Cigarettes 1.5 40 0 04/11/1978 - 2017 Smokeless Tobacco: Never Alcohol Use Standard Drinks/Week Comments Yes 2 (1 standard drink = 0.6 oz pur e alcohol) Sex and Gender Information Value Date Recorded Sex Assigned at Not on file Legal Sex Male 4:54 AM STRUCTURAL STEEL ERECTOR Gender Identity Not on file Sexual Orientation Straight 05/03/2020 10 :36 AM CDT documented as of this encounter Plan of Treatment Scheduled Procedures Name Priority Associated Diagnoses Date/Ti me TRANSPLANT KIDNEY ESRD (end stage renal disease) ([facility]) documented as of this encounter Procedures Procedure Name Priority Date/Time Associated Diagnosis Comments US HEMODIALYSIS ACCESS Schedule Routine, Read Routine (OP Routine) 09/28/2020 9:49 AM STRUCTURAL STEEL ERECTOR Arteriovenous fistula, acquired ([facility]) documented in this encounter Results * US Hemodialysis Access (09/28/2020 9:49 AM STRUCTURAL STEEL ERECTOR) Anatomical Region Laterality Modality Body N/A Ultrasound 09/28/2020 9:08 AM STRUCTURAL STEEL ERECTOR Narrative 09/28/2020 1:35 PM STRUCTURAL STEEL ERECTOR [facility] - Department of Vascular Surgery, Vascular Laboratory [address] [place] [address] Dialysis Access Fistula/Graft Duplex Report Patient Name: NATIVIDAD FINCH J ?? : 1960 (60y 7m) ??Gender: M Study Date: 09/28/2020 9:08:31 AM Fund Manager: RHYS ??Location: [facility] Order Provider: BRUCE TORRE Quality: Adequate Ref.Provider: [...] 0.86 ? cm ? Lt Deep Vein [place] ? 139.10 ? cm/s ? Lt Outflow Mid Arm Depth ?1.07 ? cm ? Lt Axillary Vein ?37.00 ?cm/s ? Lt Outflow Proximal Arm Diameter ?0.73 ? cm ? Lt Subclavian Vein ?148.00 ? cm/s ? Lt Outflow Proximal Arm Depth ? 0.96 ? cm ? Lt Volume Flow Average ?1505.00 ?cc/min ? Lt Deep Vein [place] Diameter ?0.72 ? cm ? Lt Deep Vein [place] Depth ? 1.28 ? cm ? - Findings: Performing Fund Manager: Rhys Bryant, DICKSON, RDMS, RDCS, ACS. [place] Arterial Inflow Normal: No evidence of arterial [...] performed. Electronically Signed By: Chucho Aponte MD [facility] [phone] 2020-09-28 13:35:03 STRUCTURAL STEEL ERECTOR CC: CC: Procedure Note Chucho Aponte MD - 09/28/2020 [facility] - Department of Vascular Surgery,Vascular Laboratory [address] [place] [address] Dialysis Access Fistula/Graft Duplex Report Patient Name: NATIVIDAD FINCH JPatient ID: [id number] : 1960 (60y 7m) Gender: MStudy Date: 09/28/2020 9:08:31 AM RHYS Location: [facility] Order Provider: BRUCE TORREQuality: Adequate Ref.Provider: BRUCE TORRE Procedures: Vascular Report: Left Upper Extremity Arterial-Venous Fistula Duplex Exam.Radial artery to Cephalic vein ( Medial cubital vein). Indications: Arteriovenous fistula, acquired. Measurements: Diameter/Depth Velocities Measurement Value Units MeasurementValue Units Lt Anastomosis Diameter 0.14 cm Lt Inflow Cqcgza690.80 cm/s Lt Anastomosis Depth 1.83 cm Lt Ksbjhswyxmd996.00 cm/s Lt Outflow A/C Diameter 0.66 cm [...] Proximal Arm Diameter 0.73 cm Lt Subclavian Zneg958.00 cm/s Lt Outflow Proximal Arm Depth 0.96 cm Lt Volume FlowAverage 1505.00 cc/min Lt Deep Vein [place] Diameter 0.72 cm Lt Deep Vein [place] Depth 1.28 cm - Findings: Performing Fund Manager: Rhys Bryant, MICHELLT, RDMS, RDCS, ACS. [place] Arterial Inflow Normal: No evidence of arterial [...] performed. Electronically Signed By: Chucho Aponte MD [facility] [phone] 2020-09-28 13:35:03 STRUCTURAL STEEL ERECTOR CC: CC: Bruce Torre NP IMG US PROCEDURES Final Result documented in this encounter Visit Diagnoses Diagnosis Arteriovenous fistula, acquired (CMS/HCC) (HCC) Arteriovenous fistula, acquired documented in this encounter Care Teams Senior Cognos Developer Relationship Specialty Start Date End Date Gerardo Shah MD PCP - General Internal Medicine 09/30/18 Suzette Strickland MD [address] [facility] [address] [place] [address] Referring Physician Nephrology 02/15/20 Rita Tapia, RN [address] [place] [address] Registered Nurse Senior Agricultural Assistant 02/15/20 documented as of this encounter
--- OUTSIDE RECORDS SUMMARY | 2024-10-16 06:39 | XMS_ITS | Encounter Summary ---
Author Organization [facility] Address [address] [place] [address] Phone Care Team Providers Care Browning Processor Name Role Phone Gerardo Shah MD Primary Care Provider [phone] Suzette Strickland MD Unavailable Rita Tapia RN Unavailable [phone] Reason for Visit * Diagnostic Imaging (Routine) - Closed Specialty Diagnoses / Procedures Referred By Kishore elkins Referred To Contact Vascular Surgery Diagnoses End stage renal disease (CMS/HCC) (HCC) Procedures US Hemodialysis Access Chucho Mojica MD Phone: tel: fax: [facility] Surgery [address] [facility] Advanced [facility] 8th [place] [address] [place] [address] Phone: tel: fax: Referral ID Status Reason Start Date Expiration Date Visits Re quested Visits Authorized [id number] Closed 08/04/2020 09/03/2021 99 99 Encounter Details Date Type Department Care Team (Latest Contact Info) Description 08/31/2020 10:15 AM CONSTRUCTION ENGINEER Ancillary Procedure [facility] Surgery [address] [place] [address] End stage renal disease (CMS/HCC) Social History Tobacco Use Types Packs/Day Years Used Date Smoking Tobacco: Former Cigarettes 1.5 40 0 04/11/1978 - 2017 Smokeless Tobacco: Never Alcohol Use Standard Drinks/Week Comments Yes 2 (1 standard drink = 0.6 oz pur e alcohol) Sex and Gender Information Value Date Recorded Sex Assigned at Not on file Legal Sex Male 4:54 AM CONSTRUCTION ENGINEER Gender Identity Not on file Sexual Orientation Straight 05/03/2020 10 :36 AM CDT documented as of this encounter Plan of Treatment Scheduled Procedures Name Priority Associated Diagnoses Date/Ti me TRANSPLANT KIDNEY ESRD (end stage renal disease) ([facility]) documented as of this encounter Procedures Procedure Name Priority Date/Time Associated Diagnosis Comments US HEMODIALYSIS ACCESS Schedule Routine, Read Routine (OP Routine) 08/31/2020 10:21 AM CONSTRUCTION ENGINEER End stage renal disease ([facility]) documented in this encounter Results * US Hemodialysis Access (08/31/2020 10:21 AM CONSTRUCTION ENGINEER) Anatomical Region Laterality Modality Body N/A Ultrasound 08/31/2020 9:44 AM CONSTRUCTION ENGINEER Narrative 09/01/2020 10:06 PM CONSTRUCTION ENGINEER [facility] - Department of Vascular Surgery, Vascular Laboratory [address] [place] [address] Dialysis Access Fistula/Graft Duplex Report Patient Name: ABEL FINCH J ?? : 1960 (60y 6m) ??Gender: M Study Date: 08/31/2020 9:44:43 AM Household Coordinator: DB ??Location: [facility] Order Provider: CHUCHO MOJICA Quality: Adequate Ref.Provider: CHUCHO MOJICA Procedures: Vascular Report: Left Upper Extremity Arterial-Venous Fistula Duplex Exam. Radial artery to Median cubital/Cephalic vein. Indications: End stage renal disease. Measurements: Diameter/Depth ?Velocities ? Measurement ? Value ?Units ?Measurement ? Value ?Units ? Lt Anastomosis Diameter ? 0.23 ? cm ? Lt Inflow Artery ?187.30 ? cm/s ? Lt Anastomosis Depth ?1.80 ? cm ? Lt Anastomosis ?516.90 ? cm/s ? Lt Outflow A/C Diameter ? 0.35 ? cm ? Lt Outflow Antecubital ?760.70 ? cm/s ? Lt Outflow A/C Depth ?1.08 ? cm ? Lt Outflow Vein Dist Arm ?183.30 ? cm/s ? Lt Outflow Distal Arm Diameter ?1.12 ? cm ? Lt Outflow Vein Mid Arm ? 154.50 ? cm/s ? Lt Outflow Distal Arm Depth ? 0.22 ? cm ? Lt Outflow Vein Prox Arm ?132.30 ? cm/s ? Lt Outflow Mid Arm Diameter ? 0.81 ? cm ? Lt Deep Vein [place] ? 185.20 ? cm/s ? Lt Outflow Mid Arm Depth ?0.77 ? cm ? Lt Axillary Vein ?275.00 ? cm/s ? Lt Outflow Proximal Arm Diameter ?0.77 ? cm ? Lt Subclavian Vein ?109.00 ? cm/s ? Lt Outflow Proximal Arm Depth ? 1.35 ? cm ? Lt Volume Flow Average ?2180.66 ?cc/min ? Lt Deep Vein [place] Diameter ?0.62 ? cm ? Lt Deep Vein [place] Depth ? 1.09 ? cm ? Measurement ? Value ?Units ?Measurement ? Value ?Units ? Diameter/Depth ?Velocities ? - Findings: Performing Household Coordinator: Meghann Moss RVT. [place] Arterial Inflow Normal: No evidence of arterial stenosis in the inflow vessel. Anastomosis: The fistula anastomosis is patent. Venous Outflow: No evidence of stenosis noted in the venous outflow vessel. Compression of hematoma surrounding fistula at antecubital fossa level causing in increase in velocity. Cross sectional measurement of hematoma is 1.28 cm x 1.58cm. Volume Flow: Three volume flow measurements are performed, an averaged volume flow is 2,180.66 cc/min. Provider Notification: Results called to Meghann Torre NP. Conclusions: 1. Patent hemodialysis fistula with no evidence of significant narrowing. 2. Hematoma surrounding fistula at the level antecubital fossa may be compressing fistula causing an increase in velocity. 3. Three volume flow measurements are performed, an averaged volume flow is 2,180.66 cc/min. History: End-stage renal disease. Previous Studies: No previous studies for comparison. Disclaimer: The signing physician has reviewed all images pertaining to this test. These images and this report will be retained in the patient chart by the Vascular Laboratory for the legally required time period. This chart constitutes the legal record of any testing performed. Electronically Signed By: Federico Bain MD [facility] 2020-09-01 22:06:09 CONSTRUCTION ENGINEER CC: CC: Procedure Note Federico Bain MD - 09/01/2020 [facility] - Department of Vascular Surgery,Vascular Laboratory [address] [place] [address] Dialysis Access Fistula/Graft Duplex Report Patient Name: ABEL FINCH JPatient ID: [id number] : 1960 (60y 6m) Gender: MStudy Date: 08/31/2020 9:44:43 AM NABIL Location: [facility] Order Provider: CHUCHO MOJICAQuality: Adequate Ref.Provider: CHUCHO MOJICA Procedures: Vascular Report: Left Upper Extremity Arterial-Venous Fistula Duplex Exam.Radial artery to Median cubital/Cephalic vein. Indications: End stage renal disease. Measurements: Diameter/Depth Velocities Measurement Value Units MeasurementValue Units Lt Anastomosis Diameter 0.23 cm Lt Inflow Hcadpo350.30 cm/s Lt Anastomosis Depth 1.80 cm Lt Qetfldcbgaq534.90 cm/s Lt Outflow A/C Diameter 0.35 cm Lt OutflowAntecubital 760.70 cm/s Lt Outflow A/C Depth 1.08 cm Lt Outflow Vein DistArm 183.30 cm/s Lt Outflow Distal Arm Diameter 1.12 cm Lt Outflow Vein MidArm 154.50 cm/s Lt Outflow Distal Arm Depth 0.22 cm Lt Outflow Vein ProxArm 132.30 cm/s Lt Outflow Mid Arm Diameter 0.81 cm Lt Deep VeinConfluence 185.20 cm/s Lt Outflow Mid Arm Depth 0.77 cm Lt Axillary Nwca419.00 cm/s Lt Outflow Proximal Arm Diameter 0.77 cm Lt Subclavian Ugig586.00 cm/s Lt Outflow Proximal Arm Depth 1.35 cm Lt Volume FlowAverage 2180.66 cc/min Lt Deep Vein [place] Diameter 0.62 cm Lt Deep Vein [place] Depth 1.09 cm Measurement Value Units MeasurementValue Units Diameter/Depth Velocities - Findings: Performing Household Coordinator: Meghann Moss RVT. [place] Arterial Inflow Normal: No evidence of arterial stenosis in theinflow vessel. Anastomosis: The fistula anastomosis is patent. Venous Outflow: No evidence of stenosis noted in the venous outflowvessel. Compression of hematoma surrounding fistula at antecubital fossa level causing inincrease in velocity. Cross sectional measurement of hematoma is 1.28 cm x 1.58cm. Volume Flow: Three volume flow measurements are performed, an averagedvolume flow is 2,180.66 cc/min. Provider Notification: Results called to Meghann Torre NP. Conclusions: 1. Patent hemodialysis fistula with no evidence of significantnarrowing. 2. Hematoma surrounding fistula at the level antecubital fossa may becompressing fistula causing an increase in velocity. 3. Three volume flow measurements are performed, an averaged volume flowis 2,180.66 cc/min. History: End-stage renal disease. Previous Studies: No previous studies for comparison. Disclaimer: The signing physician has reviewed all images pertaining tothis test. These images and this report will be retained in the patient chart by theVascular Laboratory for the legally required time period. This chart constitutes the legalrecord of any testing performed. Electronically Signed By: Federico Bain MD FACS 2020-09-01 22:06:09 CONSTRUCTION ENGINEER CC: CC: us Chucho Mojica MD IM US PROCEDURES Final Result documented in this encounter Visit Diagnoses Diagnosis End stage renal disease (CMS/HCC) (HCC) End stage renal disease documented in this encounter Care Teams Browning Processor Relationship Specialty Start Date End Date Gerardo Shah MD PCP - General Internal Medicine 09/30/18 Suzette Strickland MD [address] [facility] [address] [place] [address] Referring Physician Nephrology 02/15/20 Rita Tapia, RN [address] [place], [place] [id number] Registered Nurse Chucking Machine Set Up Operator Tool 02/15/20 documented as of this encounter
--- OUTSIDE RECORDS SUMMARY | 2024-10-16 06:39 | XMS_ITS | Encounter Summary ---
Author Organization [facility] Address [address] [place] [address] Phone Care Team Providers Care Toter Name Role Phone Gerardo Shah MD Primary Care Provider [phone] Suzette Strickland MD Unavailable [phone] Rita Tapia RN Unavailable [phone] Reason for Referral * Diagnostic Imaging (Routine) - Closed Specialty Diagnoses / Procedures Referred By Kishore elkins Referred To Contact Vascular Surgery Diagnoses End stage renal disease (CMS/HCC) (HCC) Procedures US Hemodialysis Access Chucho Mojica MD Phone: tel: fax: [facility] Advanced [facility] 8th [place] [address] [place] [address] Phone: tel: fax: Referral ID Status Reason Start Date Expiration Date Visits Re quested Visits Authorized [id number] Closed 08/04/2020 09/03/2021 99 99 Encounter Details Date Type Department Care Team (Late st Contact Info) Description 08/04/2020 Telephone [facility] Surgery [facility] 8th [place] [address] [place] [address] Chucho Mojica MD [address] [facility] [address] [place] [address] Social History Tobacco Use Types Packs/Day Years Used Date Smoking Tobacco: Former Cigarettes 1.5 40 0 04/11/1978 - 2017 Smokeless Tobacco: Never Alcohol Use Standard Drinks/Week Comments Yes 2 (1 standard drink = 0.6 oz pur e alcohol) Sex and Gender Information Value Date Recorded Sex Assigned at Not on file Legal Sex Male 4:54 AM DISH CARRIER Gender Identity Not on file Sexual Orientation Straight 05/03/2020 10 :36 AM CDT documented as of this encounter Miscellaneous Notes * Telephone Encounter - Rona Amin RMA - 08/04/2020 9:18 AM CDT Vascular Post Surgical Follow Up Patient was contacted post discharge day 3 to assess progress. How are you feeling: doing alright Activity: doing fine, just watching his arm Incision: Incision is clean and dry and there are no concerns Pain: 0 /10 Other concerns/ questions: no doing alright, not really Instructed to contact the office with any questions or concerns. documented in this encounter Plan of Treatment Scheduled Procedures Name Priority Associated Diagnoses Date/Ti me TRANSPLANT KIDNEY ESRD (end stage renal disease) ([facility]) documented as of this encounter Results * US Hemodialysis Access (08/31/2020 10:21 AM DISH CARRIER) Anatomical Region Laterality Modality Body N/A Ultrasound 08/31/2020 9:44 AM DISH CARRIER Narrative 09/01/2020 10:06 PM DISH CARRIER [employer] [facility] - Department of Vascular Surgery, Vascular Laboratory [address] [place] [address] Dialysis Access Fistula/Graft Duplex Report Patient Name: ABEL FINCH Colin ?? : 1960 (60y 6m) ??Gender: M Study Date: 08/31/2020 9:44:43 AM Online Affiliate Marketing Manager: DB ??Location: [facility] Order Provider: CHUCHO MOJICA Quality: Adequate Ref.Provider: [...] 0.81 ? cm ? Lt Deep Vein [employer] ? 185.20 ? cm/s ? Lt Outflow Mid Arm Depth ?0.77 ? cm ? Lt Axillary Vein ?275.00 ? cm/s ? Lt Outflow Proximal Arm Diameter ?0.77 ? cm ? Lt Subclavian Vein ?109.00 ? cm/s ? Lt Outflow Proximal Arm Depth ? 1.35 ? cm ? Lt Volume Flow Average ?2180.66 ?cc/min ? Lt Deep Vein [employer] Diameter ?0.62 ? cm ? Lt Deep Vein [employer] Depth ? 1.09 ? cm ? Measurement ? Value ?Units ?Measurement ? Value ?Units ? Diameter/Depth ?Velocities ? - Findings: Performing Online Affiliate Marketing Manager: Meghann Moss RVT. [place] Arterial Inflow Normal: No evidence of arterial [...] By: Federico Bain MD FACS 2020-09-01 22:06:09 DISH CARRIER CC: CC: Procedure Note Federico Bain MD - 09/01/2020 [facility] - Department of Vascular Surgery,Vascular Laboratory [address] [place] [address] Dialysis Access Fistula/Graft Duplex Report Patient Name: ABEL FINCH JPatient ID: [id number] : 1960 (60y 6m) Gender: MStudy Date: 08/31/2020 9:44:43 AM NABIL Location: [facility] Order Provider: MOJICA, BRIANQuality: Adequate Ref.Provider: CHUCHO MOJICA Procedures: Vascular Report: Left Upper Extremity Arterial-Venous Fistula Duplex Exam.Radial artery to Median cubital/Cephalic vein. Indications: End stage renal disease. Measurements: Diameter/Depth Velocities Measurement Value Units MeasurementValue Units Lt Anastomosis Diameter 0.23 cm Lt Inflow Hlkjrx291.30 cm/s Lt Anastomosis Depth 1.80 cm Lt Owufzujberr250.90 cm/s Lt Outflow A/C Diameter 0.35 cm [...] Mid Arm Depth 0.77 cm Lt Axillary Euxg303.00 cm/s Lt Outflow Proximal Arm Diameter 0.77 cm Lt Subclavian Vnab851.00 cm/s Lt Outflow Proximal Arm Depth 1.35 cm Lt Volume FlowAverage 2180.66 cc/min Lt Deep Vein [employer] Diameter 0.62 cm Lt Deep Vein [employer] Depth 1.09 cm Measurement Value Units MeasurementValue Units Diameter/Depth Velocities - Findings: Performing Online Affiliate Marketing Manager: Meghann Moss RVT. [place] Arterial Inflow Normal: No evidence of arterial [...] performed. Electronically Signed By: Federico Bain MD [facility] 2020-09-01 22:06:09 DISH CARRIER CC: CC: Chucho Mojica MD [facility] PROCEDURES Final Result documented in this encounter Visit Diagnoses Diagnosis End stage renal disease (CMS/HCC) (HCC) End stage renal disease End stage renal disease (CMS/HCC) (HCC) End stage renal disease documented in this encounter Care Teams Toter Relationship Specialty Start Date End Date Gerardo Shah MD PCP - General Internal Medicine 09/30/18 Suzette Strickland MD [address] [facility] [address] [place] [address] Referring Physician Nephrology 02/15/20 Rita Tapia, RN [address] [place], [place] [id number] Registered Nurse Licensed Insurance Sales Agent 02/15/20 documented as of this encounter
--- OUTSIDE RECORDS SUMMARY | 2024-10-16 06:39 | XMS_ITS | Encounter Summary ---
Author Organization [facility] Address [address] [place] [address] Phone Care Team Providers Care Can Maker Name Role Phone Gerardo Shah MD Primary Care Provider [phone] Suzette Strickland MD Unavailable [phone] Rita Tapia RN Unavailable [phone] Encounter Details Date Type Department Care Team (Late st Contact Info) Description 10/11/2020 Telephone [facility] Surgery [address] [facility] Advanced Medicine 8th [place] [address] [place] [address] Chucho Aponte MD [address] [facility] [address] [place] [address] Social History Tobacco Use Types Packs/Day Years Used Date Smoking Tobacco: Former Cigarettes 1.5 40 0 04/11/1978 - 2017 Smokeless Tobacco: Never Alcohol Use Standard Drinks/Week Comments Yes 1 (1 standard drink = 0.6 oz pur e alcohol) OCC Sex and Gender Information Value Date Recorded Sex Assigned at Not on file Legal Sex Male 4:54 AM SENIOR SOFTWARE ARCHITECT Gender Identity Not on file Sexual Orientation Straight 05/03/2020 10 :36 AM CDT documented as of this encounter Miscellaneous Notes * Telephone Encounter - Rona Amin, A - 10/11/2020 8:13 AM SENIOR SOFTWARE ARCHITECT Pre-screened for covid, confirmed patient got covid tested, date/time and instructions for surgery OR SOFTWARE ARCHITECT documented in this encounter Plan of Treatment Scheduled Procedures Name Priority Associated Diagnoses Date/Ti me TRANSPLANT KIDNEY ESRD (end stage renal disease) ([facility]) documented as of this encounter Visit Diagnoses Not on filedocumented in this encounter Care Teams Can Maker Relationship Specialty Start Date End Date Gerardo Shah MD PCP - General Internal Medicine 09/30/18 Suzette Strickland MD [address] [facility] [address] [place] [address] Referring Physician Nephrology 02/15/20 Rita Tapia, RN [address] [place] [address] Registered Nurse Tugboat Engineer 02/15/20 documented as of this encounter
--- OUTSIDE RECORDS SUMMARY | 2024-10-16 06:39 | XMS_ITS | Encounter Summary ---
Author Organization [facility] Address [address] [place] [address] Phone Care Team Providers Care Hat Blocking Operator Name Role Phone Gerardo Shah MD Primary Care Provider [phone] Suzette Strickland MD Unavailable [phone] Rita Tapia RN Unavailable [phone] Encounter Details Date Type Department Care Team (Late st Contact Info) Description 09/27/2020 Telephone [facility] Surgery [address] [facility] 1st Floor [address] [place] [address] Meghann Torre NP [address] [facility] [address] [place] [address] Social History Tobacco Use Types Packs/Day Years Used Date Smoking Tobacco: Former Cigarettes 1.5 40 0 04/11/1978 - 2017 Smokeless Tobacco: Never Alcohol Use Standard Drinks/Week Comments Yes 2 (1 standard drink = 0.6 oz pur e alcohol) Sex and Gender Information Value Date Recorded Sex Assigned at Not on file Legal Sex Male 4:54 AM LITHOGRAPHIC PROOFER Gender Identity Not on file Sexual Orientation Straight 05/03/2020 10 :36 AM CDT documented as of this encounter Miscellaneous Notes * Telephone Encounter - Meghann Torre NP - 09/27/2020 9:43 AM CST COVID screening OGRAPHIC PROOFER documented in this encounter Plan of Treatment Scheduled Procedures Name Priority Associated Diagnoses Date/Ti me TRANSPLANT KIDNEY ESRD (end stage renal disease) ([facility]) documented as of this encounter Visit Diagnoses Not on filedocumented in this encounter Care Teams Hat Blocking Operator Relationship Specialty Start Date End Date Gerardo Shah MD PCP - General Internal Medicine 09/30/18 Suzette Strickland MD [facility] [facility] [address] [place] [address] Referring Physician Nephrology 02/15/20 Rita Tapia, RN [address] [place], [place] [id number] Registered Nurse Pharmacist 02/15/20 documented as of this encounter
--- OUTSIDE RECORDS SUMMARY | 2024-10-16 06:39 | XMS_ITS | Encounter Summary ---
Author Organization [facility] Address [address] [place] [address] Phone Care Team Providers Care Shipping Receiving Manager Name Role Phone Gerardo Shah MD Primary Care Provider [phone] Suzette Strickland MD Unavailable [phone] Rita Tapia RN Unavailable [phone] Encounter Details Date Type Department Care Team (Late st Contact Info) Description 08/30/2020 Telephone [facility] Surgery [address] [facility] 1st Floor [address] [place] [address] Meghann Torre NP [address] [facility] [address] [place] [address] Social History Tobacco Use Types Packs/Day Years Used Date Smoking Tobacco: Former Cigarettes 1.5 40 0 04/11/1978 - 2017 Smokeless Tobacco: Never Alcohol Use Standard Drinks/Week Comments Yes 2 (1 standard drink = 0.6 oz pur e alcohol) Sex and Gender Information Value Date Recorded Sex Assigned at Not on file Legal Sex Male 4:54 AM ALARM SECURITY OR SURVEILLANCE MONITOR Gender Identity Not on file Sexual Orientation Straight 05/03/2020 10 :36 AM CDT documented as of this encounter Miscellaneous Notes * Telephone Encounter - Meghann Torre NP - 08/30/2020 8:58 AM CST COVID screening M SECURITY OR SURVEILLANCE MONITOR documented in this encounter Plan of Treatment Scheduled Procedures Name Priority Associated Diagnoses Date/Ti me TRANSPLANT KIDNEY ESRD (end stage renal disease) ([facility]) documented as of this encounter Visit Diagnoses Not on filedocumented in this encounter Care Teams Shipping Receiving Manager Relationship Specialty Start Date End Date Gerardo Shah MD PCP - General Internal Medicine 09/30/18 Suzette Strickland MD [facility] [address] [facility] [address] [place] [address] Referring Physician Nephrology 02/15/20 Rita Tapia, RN [address] [place], [place] [id number] Registered Nurse Ambulance Driver Paramedic 02/15/20 documented as of this encounter
--- OUTSIDE RECORDS SUMMARY | 2024-10-16 06:39 | XMS_ITS | Encounter Summary ---
Author Organization [facility] Address [address] [place] [address] Phone Care Team Providers Care Optical Designer Name Role Phone Gerardo Shah MD Primary Care Provider [phone] Suzette Strickland MD Unavailable [phone] Rita Tapia RN Unavailable [phone] Encounter Details Date Type Department Care Team (Late st Contact Info) Description 10/31/2020 Telephone [facility] Surgery [address] [facility] 8th [place] [address] [place] [address] Chucho Aponte MD [address] [facility] [id number] [place] [address] Social History Tobacco Use Types Packs/Day Years Used Date Smoking Tobacco: Former Cigarettes 1.5 40 0 04/11/1978 - 2017 Smokeless Tobacco: Never Alcohol Use Standard Drinks/Week Comments Yes 1 (1 standard drink = 0.6 oz pur e alcohol) OCC Sex and Gender Information Value Date Recorded Sex Assigned at Not on file Legal Sex Male 4:54 AM PALLIATIVE CARE COORDINATOR Gender Identity Not on file Sexual Orientation Straight 05/03/2020 10 :36 AM CDT documented as of this encounter Miscellaneous Notes * Telephone Encounter - Rona Amin, RMA - 10/31/2020 4:34 PM PALLIATIVE CARE COORDINATOR Patient contacted us that they will need to start dialysis soon I instructed him that it was fine for them to use it. ----- Message from Chucho Aponte MD sent at 10/31/2020 4:00 PM PALLIATIVE CARE COORDINATOR ----- Regarding: RE: Yes ----- Message ----- From: Rona Amin RMA Sent: 10/31/2020 2:06 PM PALLIATIVE CARE COORDINATOR To: Chucho Aponte MD Can they use his access? IATIVE CARE COORDINATOR IATIVE CARE COORDINATOR documented in this encounter Plan of Treatment Scheduled Procedures Name Priority Associated Diagnoses Date/Ti me TRANSPLANT KIDNEY ESRD (end stage renal disease) ([facility]) documented as of this encounter Visit Diagnoses Not on filedocumented in this encounter Care Teams Optical Designer Relationship Specialty Start Date End Date Gerardo Shah MD PCP - General Internal Medicine 09/30/18 Suzette Strickland MD [address] [facility] [address] [place] [address] Referring Physician Nephrology 02/15/20 Rita Tapia, RN [address] [place] [address] Registered Nurse Real Estate Agency Licensee 02/15/20 documented as of this encounter
--- OUTSIDE RECORDS SUMMARY | 2024-10-16 06:39 | XMS_ITS | Encounter Summary ---
Author Organization [facility] Address [address] [place] [address] Care Team Providers Care Annealing Operator Name Role Phone Gerardo Shah MD Primary Care Provider [phone] Suzette Strickland MD Unavailable [phone] Rita Tapia RN Unavailable [phone] Encounter Details Date Type Department Care Team (Late st Contact Info) Description 08/11/2020 Telephone [facility] Transplant Kidney [address] [address] [phone] [place] [address] Zhane Hatfield Social History Tobacco Use Types Packs/Day Years Used Date Smoking Tobacco: Former Cigarettes 1.5 40 0 04/11/1978 - 2017 Smokeless Tobacco: Never Alcohol Use Standard Drinks/Week Comments Yes 2 (1 standard drink = 0.6 oz pur e alcohol) Sex and Gender Information Value Date Recorded Sex Assigned at Not on file Legal Sex Male 4:54 AM NNP Gender Identity Not on file Sexual Orientation Straight 05/03/2020 10 :36 AM CDT documented as of this encounter Miscellaneous Notes * Telephone Encounter - Kirstin De La Torre - 08/11/2020 2:32 PM CDT Faxed MDRD to Holly at [facility] * Telephone Encounter - Zhane Hatfield - 08/11/2020 2:18 PM CDT Kirstin - please fax the pt's MDRD (in Media Mgr, dtd 06/27/2020) to [facility]. [facility] Attn: Holly Holly is requesting pt's GFR/MDRD result. Thank you - Zhane documented in this encounter Plan of Treatment Scheduled Procedures Name Priority Associated Diagnoses Date/Ti me TRANSPLANT KIDNEY ESRD (end stage renal disease) ([facility]) documented as of this encounter Visit Diagnoses Not on filedocumented in this encounter Care Teams Annealing Operator Relationship Specialty Start Date End Date Gerardo Shah MD PCP - General Internal Medicine 09/30/18 Suzette Strickland MD [address] [facility] [address] [place] [address] Referring Physician Nephrology 02/15/20 Rita Tapia, RN [address] [place] [address] Registered Nurse Drafter Structural 02/15/20 documented as of this encounter
--- OUTSIDE RECORDS SUMMARY | 2024-10-16 06:39 | XMS_ITS | Encounter Summary ---
Author Organization [facility] Address [address] [place] [address] Care Team Providers Care Swimming Pool Maintenance Supervisor Name Role Phone Gerardo Shah MD Primary Care Provider [phone] Suzette Strickland MD Unavailable [phone] Rita Tapia RN Unavailable [phone] Reason for Visit * Reason Onset Date Comments Waitlist Maintenance 11/04/2020 Encounter Details Date Type Department Care Team (Late st Contact Info) Description 11/04/2020 Documentation [facility] Transplant Kidney [address] [address] [phone] [place] [address] Aditi Steel Waitlist Maintenance Social History Tobacco Use Types Packs/Day Years Used Date Smoking Tobacco: Former Cigarettes 1.5 40 0 04/11/1978 - 2017 Smokeless Tobacco: Never Alcohol Use Standard Drinks/Week Comments Yes 1 (1 standard drink = 0.6 oz pur e alcohol) OCC Sex and Gender Information Value Date Recorded Sex Assigned at Not on file Legal Sex Male 4:54 AM GREASE PRESS HELPER Gender Identity Not on file Sexual Orientation Straight 05/03/2020 10 :36 AM CDT documented as of this encounter Progress Notes * Aditi Steel - 11/04/2020 2:55 PM CST [facility] Initial Contact Packet mailed to patient. This packet includes a Call In Sheet that has important tips and contact information for care team, as well as postcards to hand out to potential living donors. SE PRESS HELPER documented in this encounter Plan of Treatment Scheduled Procedures Name Priority Associated Diagnoses Date/Ti me TRANSPLANT KIDNEY ESRD (end stage renal disease) ([facility]) documented as of this encounter Visit Diagnoses Not on filedocumented in this encounter Care Teams Swimming Pool Maintenance Supervisor Relationship Specialty Start Date End Date Gerardo Shah MD PCP - General Internal Medicine 09/30/18 Suzette Strickland MD [address] [facility] [address] [place] [address] Referring Physician Nephrology 02/15/20 Rita Tapia, RN [address] [place], [place] [id number] Registered Nurse Car Shakeout Operator 02/15/20 documented as of this encounter
--- OUTSIDE RECORDS SUMMARY | 2024-10-16 06:39 | XMS_ITS | Encounter Summary ---
Author Organization [facility] Address [address] [place] [address] Care Team Providers Care Director Of Critical Care Name Role Phone Gerardo Shah MD Primary Care Provider [phone] Suzette Strickland MD Unavailable [phone] Rita Tapia RN Unavailable [phone] Encounter Details Date Type Department Care Team (Late st Contact Info) Description 10/12/2020 11:54 AM TEMPLATE CUTTER Anesthesia Event [facility] Operating Room [address] [place] [address] Clem Leiva MD [address] [place] [address] Mariama Villa NP [address] [facility] [phone] [place] [address] Anesthesia Record Procedure Summary Procedure Name Responsible Anesthesiologist Anesthesia Start Time Anesthesia Stop Time fistulogram, left arm (Left: Arm Upper) Clem Leiva MD 10/12/20 1154 10/12/20 1304 Events Date Time Event Comment 10/12/2020 0946 In Preop 1154 An Start 1156 In Room 1157 An Start Data 1209 Start Supplemental O2 1209 An Induction The patient was reevaluated immediately before moderate or deep sedation use and before anesthesia induction. 1216 Anesthesia Ready 1216 Quick Note Pre-op IV infil trated. First 1ml of each Versed and Fentanyl not Intravenous 1229 Proc Start 1254 Proc Fin 1258 Out of Room 1304 Handoff to RN I completed my handoff to the receiving nurse during which we: 1. Patient identified 2. Responsible provider identified 3. Pertinent medical history reviewed 4. Procedure type and surgical course discussed 5. Intraoperative anesthetic management and any significant issues discussed 6. Expectations and concerns for postop period discussed 7. Questions solicited from receiving nurse 8. Patient disposition at the time of handoff: PACU 1304 An Stop Meds Name Total midazolam PF 2 mg fentaNYL 100 mcg ceFAZolin 2,000 mg LR 200 mL * Agents Name O2% N2O O2 Sevoflurane Inspired Sevoflurane * Blood No blood administrations on file. Lines, Drains, and Airways Type Details Placement Removal Hemodialysis AV Access Placement Date: 08/01/20; Placement Time: 1000 08/01/20 1000 by Pam Winston RN RETIRED Surgical Site 06/14/20; 0939; Ri ght; Flank; with lap sites x 3; 09/29/24 (Retired LDA, Removed/Completed by [employer] with LDA Utility); 1213 (Retired LDA, Removed/Completed by [employer] with LDA Utility) 06/14/20 0939 by Blanka Devlin RN 09/29/24 1213 by Discharge Provider, Automatic RETIRED Surgical Site 08/01/20; 0943; Le ft; Arm; 09/29/24 (Retired LDA, Removed/Completed by [employer] with LDA Utility); 1213 (Retired LDA, Removed/Completed by [employer] with LDA Utility) 08/01/20 0943 by Barbara Pollack RN 09/29/24 1213 by Discharge Provider, Automatic Peripheral IV Placement Date: 10/12/20; Placement Time: 1026; Catheter Size: 20 G; Orientation: Right; Location: Antecubital; Insertion Attempts: 1; Removal Date: 10/12/20; Removal Time: 1313; Removal Reason: Infiltrated (Inflitrated in OR. Removed in OR) 10/12/20 1026 by Joanne Berry RN 10/12/20 1313 by Essie Shin RN RETIRED Surgical Site 10/12/20; 1310; No ; Left, Upper; Arm; 09/29/24 (Retired LDA, Removed/Completed by [facility] with LDA Utility); 1213 (Retired LDA, Removed/Completed by [employer] with LDA Utility) 10/12/20 1310 by Essie Shin RN 09/29/24 1213 by Discharge Provider, Automatic documented in this encounter Social History Tobacco Use Types Packs/Day Years Used Date Smoking Tobacco: Former Cigarettes 1.5 40 0 04/11/1978 - 2017 Smokeless Tobacco: Never Alcohol Use Standard Drinks/Week Comments Yes 1 (1 standard drink = 0.6 oz pur e alcohol) OCC Sex and Gender Information Value Date Recorded Sex Assigned at Not on file Legal Sex Male 4:54 AM TEMPLATE CUTTER Gender Identity Not on file Sexual Orientation Straight 05/03/2020 10 :36 AM CDT documented as of this encounter OR Notes * Anesthesia Postprocedure Evaluation - Clem Leiva MD - 10/12/2020 1:24 PM CST Patient: Abel Browne Procedure Summary Date: 10/12/20 Room / Location: [facility] OR POD 3 ROOM 307 / [facility] OR POD 3 Anesthesia Start: 1154 Anesthesia Stop: Procedures: fistulogram, left arm (Left Arm Upper) FISTULOGRAM (Left ) Diagnosis: Kidney disease (Kidney disease [N28.9]) Surgeons: Chucho Aponte MD Responsible Provider: Clem Leiva MD Anesthesia Type: MAC ASA Status: 3 Anesthesia Type: MAC Last vitals BP 145/61 Pulse 67 Temp 36.2 ??C (97.2 ??F) (Temporal) Resp 16 SpO2 100% Anesthesia Post Evaluation Patient location during evaluation: PACU Patient participation: complete - patient participated Level of consciousness: fully awake Pain management: adequate Airway patency: adequate Evidence of recall: no Anesthetic complications: no Cardiovascular status: acceptable Respiratory status: acceptable Hydration status: acceptable Pt is: normothermic Nausea/Vomiting status: none LATE CUTTER * Anesthesia Preprocedure Evaluation - Clem Leiva MD - 10/05/2020 9:43 AM CST Images from the original note were not included. [facility] for Preoperative Assessment and Planning Preoperative Evaluation Record Evaluation type/location: TPAP from [facility] Planned procedure site: [facility] OR (Pods 2/3/5/LAMINATING MACHINE FEEDER) Date: 10/05/20 NOTE: This note represents a [...] AV fistula revision. Other medical history includes TX, HTN, and COPD/asthma. Past Medical History Information obtained from: patient and chart. Neurological Pertinent negatives: seizures; CVA/stroke and TIA Cardiovascular + Hypertension (on Metoprolol, Norvasc ) Typical systolic BP - 130 Typical diastolic BP - 70 + TX (TX 2018 s/p catheterization - no CAD and presumed coronary spasm event in distribution of LAD- sx at time of TX were indigestion type pain for ~24 hours ) Number of TX's: 1. Date of last TX: 2017. + Current valvular disease (per stress echo 04/11, LVEF 71%) - MR - mild; + Other arrhythmia (SB 50s - pt reports hx of bradycardia) - bradycardia. Pertinent negatives: CAD ; atrial fibrillation; pacemaker/ICD; PVD; DVT/PE; negative for CHF and hyperlipidemia Comments: F/b Dr. Nay Shrestha [place] w/ presumed history of coronary spasm per cardiology documentation. Per cardiology note 02/2020 in epic The patient was seen by myself I [...] CT imaging - LFTs unremarkable 03/2020 per epic) + History of anemia (anemia of CKD, most recent H/H 9.4/29.5 on 07/05/20) - iron deficiency Pertinent negatives: history of thrombocytopenia and history of Emperatriz positive Gastrointestinal + GERD (on Omeprazole ) - on daily therapy. Symptoms < 1x/week. + Hiatal hernia Renal / + Renal disease (2/2 polycystic kidney disease, His Cnc Operator is Dr. Strickland) - ESRD Pertinent negatives: dialysis Comments: S/p R nephrectomy 05/2020 Musculoskeletal/Pain + Chronic pain (low back - on Flexeril and PRN Burdick - reports no use of Burdick in months ) Endocrine / Other Pertinent [...] (low back - on Flexeril and PRN Burdick - reports no use of Burdick in months ) + numbness/tingling (bilateral hands/UEs [...] provided via phone and Sent electronically via [place]. Patient verbalized understanding of preoperative plan. Obstructive sleep apnea (SHAHEEN) screening status is Preliminary SHAHEEN screening not complete, pending neck circumference measurement on day of surgery. Blood bank needs for day of procedure: No type and screen needed Pending labs/tests include: N/A Labs reviewed from 07/05/20 CBC with H/H 11.3/36.1 BMP with Na 141, K 5.0, Cr 4.7 -->Hyperkalemia managed on lokelma every other day. ISTAT labs ordered DOS. Patient with No known exposure to COVID19 and no concerning symptoms of COVID19. Plan for pre-procedure COVID19 testin10/10/20 at [facility]. Reports episode of spasm like CP 05/2020 and he was evaluated at hospital in [facility] - felt like spasm in epigastric region. Denies use of nitroglycerin in >2 years. Patient had negative stress test 03/2020 in epic. ECG at OSH 04/2020 shows SB. The [...] There are no prior chest radiographs at [facility] for comparison. The heart and mediastinal contours [...] requested labs within last 720 hours. Luis Nerique index score: 100 DOS Physical Exam Medical history, medications, and allergies reviewed. Attestation: I endorse the findings of the anesthesia pre-evaluation assessment dated: 10/05/2020. Airway Exam: Mallampati: II Cervical ROM: FROM TM distance: >4 Cardiovascular Exam: Rate: regular Rhythm: regular Pulmonary Exam: LCTA, bilat Dental Exam: (Missing upper teeth) Current state: Patient's current state is cooperative. Anesthesia Plan ASA 3 My patient is approved for the Anesthesia Controlled Medication protocol when under care of a DEFLECTOR OPERATOR Planned anesthesia: MAC Informed Consent: Anesthesia plan and risks discussed with patient. Consent and Attending signature: I and/or my designee have discussed the anesthesia plan, benefits, possible alternatives, parental presence at time of induction (if indicated), and clinically relevant risks that may include dental injury, unintentional awareness, and/or other complications. The patient and/or parent/legal guardian understand, and agree to proceed. All questions answered. LATE CUTTER LATE CUTTER documented in this encounter Plan of Treatment Scheduled Procedures Name Priority Associated Diagnoses Date/Ti vt TRANSPLANT KIDNEY ESRD (end stage renal disease) ([facility]) documented as of this encounter Visit Diagnoses Not on filedocumented in this encounter Administered Medications Inactive Administered Medications - up to 3 most recent administrations Medication Order MAR Action Action Date Dose Rate Site ceFAZolin (ANCEF) injection Administer over 3 Minutes, As needed, Starting on Sat10/12/20 at 1223, Anesthesia Intra-op Given 10/12/2020 12:23 PM TEMPLATE CUTTER 2,000 mg fentaNYL (SUBLIMAZE) preservative free injection intravenous, As needed, Starting on Sat10/12/20 at 1215, Anesthesia Intra-op Given 10/12/2020 12:15 PM TEMPLATE CUTTER 50 mcg Given 10/12/2020 11:54 AM TEMPLATE CUTTER 50 mcg Lactated Ringer's (LR) infusion Continuous PRN, Starting on Sat10/12/20 at 1154, Anesthesia Intra-op New Bag 10/12/2020 11:54 AM TEMPLATE CUTTER midazolam (VERSED) 1 mg/mL preservative free injection intravenous, Administer over 2 Minutes, As needed, Starting on Sat10/12/20 at 1215, Anesthesia Intra-op Given 10/12/2020 12:15 PM TEMPLATE CUTTER 1 mg Given 10/12/2020 11:54 AM TEMPLATE CUTTER 1 mg documented in this encounter Care Teams Director Of Critical Care Relationship Specialty Start Date End Date Gerardo Shah MD PCP - General Internal Medicine 09/30/18 Suzette Strickland MD [address] [facility] [address] [place] [address] Referring Physician Nephrology 02/15/20 Rita Tapia, RN [address] [place] [address] Registered Nurse Beveling And Edging Machine Operator 02/15/20 documented as of this encounter
--- OUTSIDE RECORDS SUMMARY | 2024-10-16 06:39 | XMS_ITS | Encounter Summary ---
Author Organization [facility] Address [address] [place] [address] Phone Care Team Providers Care Press Set Up Name Role Phone Gerardo Shah MD Primary Care Provider [phone] Suzette Strickland MD Unavailable [phone] Rita Tapia RN Unavailable [phone] Encounter Details Date Type Department Care Team (Late st Contact Info) Description 09/28/2020 10:15 AM POURER METAL Office Visit [facility] Surgery [address] [facility] 2nd Floor [address] [place] [address] Meghann Torre NP [address] [facility] [id number] [place], [place] [id number] Encounter for surgical aftercare following surgery of circulatory system (Primary Dx) Social History Tobacco Use Types Packs/Day Years Used Date Smoking Tobacco: Former Cigarettes 1.5 40 0 04/11/1978 - 2017 Smokeless Tobacco: Never Alcohol Use Standard Drinks/Week Comments Yes 2 (1 standard drink = 0.6 oz pur e alcohol) Sex and Gender Information Value Date Recorded Sex Assigned at Not on file Legal Sex Male 4:54 AM POURER METAL Gender Identity Not on file Sexual Orientation Straight 05/03/2020 10 :36 AM CDT documented as of this encounter Last Filed Vital Signs Vital Sign Reading Time Taken Comments Blood Pressure 158/73 09/28/2020 9:38 AM POURER METAL Pulse 66 09/28/2020 9:38 AM POURER METAL Temperature 36.2 ??C (97.2 ??F) 09/28/2020 9:38 AM CS T Respiratory Rate - - Oxygen Saturation 99% 09/28/2020 9:38 AM POURER METAL Inhaled Oxygen Concentration - - Weight 96.4 kg (212 lb 8 oz) 09/28/2020 9:38 AM POURER METAL Height 190.5 cm (6' 3 ) 09/28/2020 9:38 AM POURER METAL Body Mass Index 26.56 09/28/2020 9:38 AM POURER METAL documented in this encounter Progress Notes * Meghann Torre, MARINE ENGINE MECHANIC - 09/28/2020 10:15 AM CST Abel Browne is a 60 y.o. male with end stage renal disease. He underwent creation of leftAC fossa dialysis fistula on August 01. He was seen about a month ago and was found to have a hematoma around his fistula and is here for reevaluation of this hematoma . He is not currently on dialysis. He does complain that he has been having muscle cramps all over his body recently and feels like it is related to his medications. He states he is doing well and denies any arm or hand claudication, redness or drainage from the incision. I have reviewed his health history form, signed it accordingly and will be scanned into the EMR. he has a current medication list which includes the following prescription(s): acetaminophen, amlodipine (NORVASC), aspirin, bumetanide (BUMEX), cyanocobalamin (VITAMIN B-12), metoprolol tartrate (LOPRESSOR), nitroglycerin (NITROSTAT), omeprazole (PRILOSEC), and sodium zirconium cyclosilicate. He has No Known Allergies. He does not smoke and consumes alcohol weekly. On physical exam today this is a pleasant male in no apparent distress. His vital signs today are Blood pressure 158/73, pulse 66, temperature 36.2 ??C (97.2 ??F), height 190.5 cm (6' 3 ), weight 96.4 kg (212 lb 8 oz), SpO2 99 %. His Left arm incision is well healed with no redness or drainage. He has a good thrill and bruit over the fistula and a strong radial pulse. He has good motor and sensory function of his hand and hasgood spiritual advisor strength. He has no ulcerations or tissue loss. Vascular duplex performed today shows 1505 cc/min. With a greater than 50% narrowing at the distal anastomosis with ratio of 3.38 and velocity of 655cm/s with intimal thickening of the vein wall . They do not see significant hematoma. I will notify Dr. Aponte of these findings an contact the patient with recommendations. Meghann Torre NP Section of Vascular Surgery [facility] Gerardo Shah MD Brian Rubin, MD Cosigned by Chucho Aponte MD at 09/28/2020 12:51 PM POURER METAL ER METAL ER METAL documented in this encounter Plan of Treatment Scheduled Procedures Name Priority Associated Diagnoses Date/Ti me TRANSPLANT KIDNEY ESRD (end stage renal disease) ([facility]) documented as of this encounter Visit Diagnoses Diagnosis Encounter for surgical aftercare following surgery of circulatory system- Primary documented in this encounter Discontinued Medications Medication Sig Discontinue Reason Start Date End Da te tamsulosin (FLOMAX) 0.4 mg extended release capsule Take 1 capsule (0.4 mg total) by mouth daily with dinner Therapy completed 06/18/2020 09/28/2020 documented as of this encounter Historical Medications * This list may reflect changes made after this encounter. bumetanide (BUMEX) 1 mg tabletIndications :HELP EMPTY BLADDER Take 1 tablet (1 mg total) by mouth every morning 09/06/2020 added in this encounter Care Teams Press Set Up Relationship Specialty Start Date End Date Gerardo Shah MD PCP - General Internal Medicine 09/30/18 Suzette Strickland MD [address] [facility] [address] [place] [address] Referring Physician Nephrology 02/15/20 Rita Tapia, RN [address] [place] [address] Registered Nurse Veneer Cutter 02/15/20 documented as of this encounter
--- OUTSIDE RECORDS SUMMARY | 2024-10-16 06:39 | XMS_ITS | Encounter Summary ---
Author Organization [facility] Healthcare Address [address] [place] [address] Care Team Providers Care Circular Knife Cutter Machine Name Role Phone Gerardo Shah MD Primary Care Provider [phone] Suzette Strickland MD Unavailable [phone] Rita Tapia RN Unavailable [phone] Encounter Details Date Type Department Care Team (Late st Contact Info) Description 10/12/2020 11:40 AM ADMIN ASST - 10/12/2020 2:45 PM ADMIN ASST Surgery [facility] Operating Room 1 [place] [address] Chucho Mojica MD [id number] [place] [address] fistulogram, left arm Surgery Details Date/Time Status Location OR Service Patient Class Case Cl ass Case Type Trauma Case? 10/12/2020 11:40 AM Posted [facility] OR POD 3 307 Vascular Outpatient Elective Panel 1 Procedure LRB Anes Op Region Wound Class Comments fistulogram, left arm Left General Arm Upper Class I - Clean FISTULOGRAM Left General Class I - Clean Surgeon Surgeon Role Service Panel Chucho Mojica MD Primary Vascular 1 documented in this encounter Social History Tobacco Use Types Packs/Day Years Used Date Smoking Tobacco: Former Cigarettes 1.5 40 0 04/11/1978 - 2017 Smokeless Tobacco: Never Alcohol Use Standard Drinks/Week Comments Yes 1 (1 standard drink = 0.6 oz pur e alcohol) OCC Sex and Gender Information Value Date Recorded Sex Assigned at Not on file Legal Sex Male 4:54 AM ADMIN ASST Gender Identity Not on file Sexual Orientation Straight 05/03/2020 10 :36 AM CDT documented as of this encounter Last Filed Vital Signs Vital Sign Reading Time Taken Comments Blood Pressure 119/70 10/12/2020 1:20 PM ADMIN ASST Pulse 67 10/12/2020 1:20 PM ADMIN ASST Temperature 36.2 ??C (97.2 ??F) 10/12/2020 1:06 PM CS T Respiratory Rate 16 10/12/2020 1:20 PM ADMIN ASST Oxygen Saturation 100% 10/12/2020 1:20 PM ADMIN ASST Inhaled Oxygen Concentration - - Weight 96.2 kg (212 lb) 10/05/2020 8:25 AM ADMIN ASST Height 190.5 cm (6' 3 ) 10/05/2020 8:25 AM ADMIN ASST Body Mass Index 26.5 10/05/2020 8:25 AM ADMIN ASST documented in this encounter Medications at Time [...] Based on the above findings, I consider Able Browne to be an acceptable risk for : Procedure(s): REVISION ARTERIOVENOUS FISTULA - ARM fistulogram, possible endovascular vs open revision of left arm AV fistula FISTULOGRAM N ASST Source Note - Mariama Villa NP - 10/05/2020 9:43 AM ADMIN ASST Images from the original note were not included. Center for Preoperative Assessment and Planning Preoperative Evaluation Record Evaluation type/location: TPAP from [facility] Planned procedure site: [facility] (Pods 2/3//GROCERY DEPARTMENT MANAGER) Date: 10/05/20 NOTE: This note represents a [...] AV fistula revision. Other medical history includes [place], HTN, and COPD/asthma. Past Medical History Information obtained from: patient and chart. Neurological Pertinent negatives: seizures; CVA/stroke and TIA Cardiovascular + Hypertension (on Metoprolol, Norvasc ) Typical systolic BP - 130 Typical diastolic BP - 70 + MO (MO 2018 s/p catheterization - no CAD and presumed coronary spasm event in distribution of LAD- sx at time of MO were indigestion type pain for ~24 hours ) Number of MO's: 1. Date of last MO: 2017. + Current valvular disease (per stress echo 04/11, LVEF 71%) - MR - mild; + Other arrhythmia (SB 50s - pt reports hx of bradycardia) - bradycardia. Pertinent negatives: CAD ; atrial fibrillation; pacemaker/ICD; PVD; DVT/PE; negative for CHF and hyperlipidemia Comments: F/b [facility] w/ presumed history of coronary spasm per cardiology documentation. Per cardiology note 02/2020 in [facility] The patient was seen by myself I [...] Renal disease (2/2 polycystic kidney disease, His Slat Basket Top Maker is Dr. Strickland) - ESRD Pertinent negatives: dialysis Comments: S/p R nephrectomy 05/2020 Musculoskeletal/Pain + Chronic pain (low back - on Flexeril and PRN [place] - reports no use of [place] in months ) Endocrine / Other Pertinent [...] (low back - on Flexeril and PRN [place] - reports no use of [place] in months ) + numbness/tingling (bilateral hands/UEs [...] provided via phone and Sent electronically via [facility]. Patient verbalized understanding of preoperative plan. Obstructive sleep apnea (SHAHEEN) screening status is Preliminary SHAHEEN screening not complete, pending neck circumference measurement on day of surgery. Blood bank needs for day of procedure: No type and screen needed Pending labs/tests include: N/A Labs reviewed from 07/05/20 CBC with H/H 11.3/36.1 BMP with Na 141, K 5.0, Cr 4.7 -->Hyperkalemia managed on [facility] every other day. ISTAT labs ordered DOS. Patient with No known exposure to COVID19 and no concerning symptoms of COVID19. Plan for pre-procedure COVID19 testin10[facility]10[facility]20 at [facility]. Reports episode of spasm like CP 05/2020 and he was evaluated at [facility] in [facility] - felt like spasm in epigastric region. [...] abdominal pain ??? End-stage renal disease (ESRD) ([facility]) ??? ESRD (end stage renal disease) ([facility]) ??? Encounter for surgical aftercare following surgery of circulatory system ??? Kidney disease Past Medical History: Diagnosis Date ??? Anemia of chronic disease ??? Arthritis ??? Asthma ??? Bradycardia ??? CKD (chronic kidney disease) ??? COPD (chronic obstructive pulmonary disease) ([facility]) mild ??? GERD (gastroesophageal reflux disease) ??? Heart attack ([facility]) 09/2018 ??? Hiatal hernia ??? Pneumonia ??? [...] There are no prior chest radiographs at [facility] for comparison. The heart and mediastinal contours [...] 720 hours. Luis Enrique index score: 100 N ASST documented in this encounter Miscellaneous Notes * Op Note - Chucho Mojica MD - 10/12/2020 11:40 AM CST OPERATIVE REPORT SURGEON Chucho Mojica MD TITLE CLERK Ondina Will NP ANESTHESIA: Local plus sedation [...] focal stenosis. First few cm of AVF, tonto apache vein size is 4 mm. After that, tonto apache vein size is 9-10 mm. Brisk flow, [...] CONDITION ON DISCHARGE FROM OPERATING ROOM Stable. SALES OPERATIONS LEAD MEASURES We utilized 15 cc of Optiray contrast and fluoroscopy time was 33 seconds. N ASST * Pre-Procedure Instructions - Mariama Villa NP - 10/05/2020 9:34 AM CST Center for Preoperative Assessment and Planning CPAP Clinic Location: [facility] The night before your surgery: [...] bowel prep or special diet before surgery N ASST * Perioperative Nursing Note - Stan Melendez RN - 10/05/2020 8:31 AM ADMIN ASST Center for Preoperative Assessment and Planning Perioperative Nursing Note Telephone Preoperative Evaluation ([facility]) - TELEPHONE ONLY, NO PHYSICAL EXAM [...] (LDAs) Type of Wound (LDA): (NONE) SCREENINGS Barone Fall Risk Score (Retired): 15 Luis Enrique index score: 100 NUTRITION PATIENT CARE PLANNING Advance Directives (For Healthcare) Advance Directive: Patient does not have advance directive Communication/Health Education Specialist Needs Communication Needs: None Assistive Devices/DME: Eyeglasses, Dentures upper Discharge Planning Type of Residence: Private residence Living Arrangements: Spouse/significant other Support Systems: Family members Assistance Needed: FAMILY WILL BE FOOT TENDER AND HELPER Patient expects to be discharged [...] in a congregate living facility (ex. assisted living/nursing home facility, correction, [facility])?: No Have you tested positive for COVID-19 [...] 20 seconds. Use an alcohol- based hand rehabilitation program coordinator that contains at least 60% alcohol if soap and water are not available. ADDITIONAL COMMENTS/ FOLLOW UP N ASST * Pre-Procedure Instructions - Stan Melendez RN - 10/05/2020 8:30 AM ADMIN ASST PRE-SURGICAL INSTRUCTIONS ??? General Information ?? Surgery [...] insurance card, a photo ID (like a Lead Relay Tester's license) and a method of payment for [...] COVID Test Request Placed in Epic to [facility]. Test to be performed on 10/10/20 [facility] If you have COVID testing or should have COVID testing for your surgery/procedure, please read below section: If you need to reschedule your COVID test to a different location or if your surgery gets rescheduled, you MUST call [phone] Saturday-Saturday 8am-4:30pm to get your COVID testing rescheduled or your lab order will not be available at Testing Sites. COVID Testing is only valid for up to 96 hours prior to surgery date, unless otherwise specified. If you are unable to reach staff at the above phone number, please call the CPAP Staff at [phone]. This number cannot order a lab test, [...] 20 seconds. Use an alcohol- based hand rehabilitation program coordinator that contains at least 60% alcohol if soap and water are not available. ALL Patients should read below section: All visitors/patients are being asked to wear a clean mask when entering the hospital. COVID 19 Updates & Visitor Policy: Please access [email or web address] for the most updated information. ??? For patients having surgery @ [facility], if your surgeon's office has not notified you of your surgery time by NOON THE BUSINESS DAY BEFORE your surgery, please call [phone] and ask for your surgeon's office DR MOJICA N ASST documented in this encounter Plan of Treatment Scheduled Procedures Name Priority Associated Diagnoses Date/Ti me TRANSPLANT KIDNEY ESRD (end stage renal disease) ([facility]) documented as of this encounter Procedures Procedure Name Priority Date/Time Associated Diagnosis Comments FL FLUOROSCOPY < 1 HOUR IP Routine 10/12/2020 12:50 PM ADMIN ASST FISTULOGRAM 10/12/2020 11:56 AM ADMIN ASST Kidney disease REVISION ARTERIOVENOUS FISTULA - ARM 10/12/2020 11:56 AM ADMIN ASST Kidney disease POC BLOOD GAS AND CHEMISTRIES, ARTERIAL Routine 10/12/2020 10:17 AM ADMIN ASST documented in this encounter Results * FL Fluoroscopy < 1 Hour (10/12/2020 12:50 PM ADMIN ASST) Narrative [facility] - 10/12/2020 12:51 PM ADMIN ASST The images from this study are not interpreted by Radiology. ??Please refer to the physician's procedure / OR operative note. us Chucho Mojica MD IMG FLUOROSCOPY PROCEDURES Fin al Result [facility] * (ABNORMAL) POC Blood Gas and Chemistries, Arterial - (10/12/2020 10:17 AM ADMIN ASST) Na, POC 141 135 - 145 mmol/L [facility] K POC 5.2(H) 3.3 - 4.9 mmol/L [facility] Comment: Interpretive Data Unable to assess hemolysis. ??Invitro hemolysis causes falsely elevated potassium. Current Interpretive Data was last revised on 2020. Glucose, POC 81 70 - 199 mg/dL [facility] Hct, POC 29.0(L) 41.4 - 51.6 % [facility] Total Hb, POC 9.7(L) 13.8 - 17.2 g/dL [facility] Blood specimen (specimen) 10/12/2020 10:17 AM ADMIN ASST 10/12/2020 10:17 AM ADMIN ASST us Chucho Mojica MD LAB POCT ORDERABLES - DEVICE F inal Result [facility] Department [place] [address] documented in this encounter Visit Diagnoses Diagnosis Kidney disease- Primary Unspecified disorder of kidney and ureter Kidney disease Unspecified disorder of kidney and ureter documented in this encounter Admitting Diagnoses Diagnosis Kidney disease Unspecified disorder of kidney and ureter documented in this encounter Administered Medications Inactive Administered Medications - up to 3 most recent administrations Medication Order MAR Action Action Date Dose Rate Site heparin in 0.9% sodium chloride 1,000 units/500 mL (2 unit/mL) infusion (premix) As needed, Starting on Sat10/12/20 at 1244, Intra-Op Given 10/12/2020 12:44 PM ADMIN ASST 500 mL Surgical Site ioversoL (OPTIRAY 320) injection As needed, Starting on Sat10/12/20 at 1244, Intra-Op Given 10/12/2020 12:44 PM ADMIN ASST 15 mL Surgical Site sodium chloride 0.9 % irrigation As needed, Starting on Sat10/12/20 at 1244, Intra-Op Given 10/12/2020 12:44 PM ADMIN ASST 1,000 mL Surgical Site sodium chloride 0.9% infusion 30 mL/hr, intravenous, Continuous, Starting on Sat10/12/20 at 1030, Pre-Op sterile water irrigation As needed, Starting on Sat10/12/20 at 1244, Intra-Op Given 10/12/2020 12:44 PM ADMIN ASST 1,000 mL Other (Comment) documented in this encounter Active and Recently Administered Medications Times are shown in ADMIN ASST. Continuous Medication Order 10/10/2020 10/11/2020 10/12/2020 sodium [...] 10/12/2020 haloperidol (HALDOL) injection 0.5 mg 1 naloxone (NARCAN) 0.4 mg/mL injection 0.04-0.4 mg 1 10/12/2020 sodium chloride 0.9% flush 0.5-20 mL 1 09/27 sodium chloride 0.9% infusion 1 10/12/2020 Diet Count Last Ordered Date First Orde red Date ADULT DISCHARGE DIET 1 10/12/2020 Nursing Count Last Ordered Date First Orde red Date DISCHARGE ACTIVITY 1 10/12/2020 DISCHARGE CALL PROVIDER 1 10/12/2020 DISCHARGE DRESSING 1 10/12/2020 documented in this encounter Care Teams Circular Knife Cutter Machine Relationship Specialty Start Date End Date Gerardo Shah MD PCP - General Internal Medicine 09/30/18 Suzette Strickland MD [address] [facility] [address] [place] [address] Referring Physician Nephrology 02/15/20 Rita Tapia, RN [address] [place] [address] Registered Nurse Certified Surgical First Assistant 02/15/20 documented as of this encounter
--- OUTSIDE RECORDS SUMMARY | 2024-10-16 06:39 | XMS_ITS | Encounter Summary ---
Author Organization [facility] Address [address] [place] [address] Phone Care Team Providers Care Manager Investigations Name Role Phone Gerardo Shah MD Primary Care Provider Suzette Strickland MD Unavailable [phone] Rita Tapia RN Unavailable [phone] Reason for Referral * Diagnostic Imaging (Routine) - Closed Specialty Diagnoses / Procedures Referred By Kishore elkins Referred To Contact Radiology Diagnoses Renal cell carcinoma of right kidney (HCC) Procedures MRI Abdomen Kidney WO Contrast Marc Khan MD [address] [facility] [id number] [place] [address] Phone: tel: fax: [address] [address] Referral ID Status Reason Start Date Expiration Date Visits Re quested Visits Authorized [id number] Closed 08/08/2020 09/07/2021 1 1 Encounter Details Date Type Department Care Team (Late st Contact Info) Description 08/08/2020 Orders Only [facility] Urology [facility] Medical Office Building [address] [place] [address] Marc Khan MD [address] [facility] [id number] [place] [address] Renal cell carcinoma of right kidney (CMS/HCC) (Primary Dx) Social History Tobacco Use Types Packs/Day Years Used Date Smoking Tobacco: Former Cigarettes 1.5 40 0 04/11/1978 - 2017 Smokeless Tobacco: Never Alcohol Use Standard Drinks/Week Comments Yes 2 (1 standard drink = 0.6 oz pur e alcohol) Sex and Gender Information Value Date Recorded Sex Assigned at Not on file Legal Sex Male 4:54 AM MERCHANT POLICE Gender Identity Not on file Sexual Orientation Straight 05/03/2020 10 :36 AM CDT documented as of this encounter Plan of Treatment Scheduled Procedures Name Priority Associated Diagnoses Date/Ti me TRANSPLANT KIDNEY ESRD (end stage renal disease) (CMS/HCC) documented as of this encounter Results * MRI Abdomen Kidney WO Contrast (09/07/2020 7:01 AM MERCHANT POLICE) Anatomical Region Laterality Modality Body N/A Magnetic Resonan ce 09/07/2020 11:0 0 AM MERCHANT POLICE Impressions 09/07/2020 5:06 PM MERCHANT POLICE 1. ??Postsurgical changes of right nephrectomy without residual nodular mass in the nephrectomy bed. 2. ??Polycystic liver and kidney disease with stable appearance of hepatic and left renal cysts, almost entirely replacing the left renal parenchyma. ??No suspicious solid liver or kidney lesion. 3. ??Resolution of right abdominal wall fluid collection. ??No residual fluid collection identified. Dictated by: Rj Dowsn M.D. The radiology attending physician has personally reviewed this study, and had reviewed and/or edited this written report and agrees with it. Electronically signed by: Markus Montoya M.D. Narrative 09/07/2020 5:06 PM MERCHANT POLICE EXAMINATION: MAGNETIC RESONANCE IMAGING OF THE ABDOMEN [...] by: Markus Montoya M.D. Marc Khan MD IMG MRI PROCEDURES Final Result documented in this encounter Visit Diagnoses Diagnosis Renal cell carcinoma of right kidney (HCC)- Primary Renal cell carcinoma of right kidney (HCC) documented in this encounter Care Teams Manager Investigations Relationship Specialty Start Date End Date Gerardo Shah MD PCP - General Internal Medicine 09/30/18 Suzette Strickland MD [address] [facility] [address] [place] [address] Referring Physician Nephrology 02/15/20 Rita Tapia, RN [address] [place] [address] Registered Nurse Safety Physician 02/15/20 documented as of this encounter
--- OUTSIDE RECORDS SUMMARY | 2024-10-16 06:39 | XMS_ITS | Encounter Summary ---
Author Organization [facility] Healthcare Address [address] [place] [address] Care Team Providers Care Filtration Supervisor Name Role Phone Gerardo Shah MD Primary Care Provider [phone] Suzette Strickland MD Unavailable [phone] Rita Tapia RN Unavailable [phone] Reason for Visit * Reason Onset Date Comments Waitlist Maintenance 10/25/2020 Encounter Details Date Type Department Care Team (Late st Contact Info) Description 10/25/2020 Telephone [facility] Transplant Kidney [address] [facility] [id number] [place], [place] [id number] Rubi Ott Waitlist Maintenance Social History Tobacco Use Types Packs/Day Years Used Date Smoking Tobacco: Former Cigarettes 1.5 40 0 04/11/1978 - 2017 Smokeless Tobacco: Never Alcohol Use Standard Drinks/Week Comments Yes 1 (1 standard drink = 0.6 oz pur e alcohol) OCC Sex and Gender Information Value Date Recorded Sex Assigned at Not on file Legal Sex Male 4:54 AM SOIL SCIENCE TECHNICAL OFFICER Gender Identity Not on file Sexual Orientation Straight 05/03/2020 10 :36 AM CDT documented as of this encounter Miscellaneous Notes * Telephone Encounter - Kirstin De L aTorre - 10/31/2020 3:21 PM CST Reverified insurance through [employer] and insurance is active SCIENCE TECHNICAL OFFICER * Telephone Encounter - Kirstin De La Torre - 10/31/2020 3:21 PM CST Patient : ABEL FINCH Plan #: [id number] Group Name: [facility] Group #: [id number] [facility] CHOICE PLUS Plan Network ID: [id number] : [id number] Gender: Male Relationship: Spouse Address: [id number] [place] [address] Date of Last Update : 10/29/2020 Plan Begin : 10/28/2012 Subscriber : BLANQUITA FINCH Address: [address] [place] [address] Submitter : RIZWAN Submitter Type: Provider General Eligibility Information Status: Active Coverage Coverages -- Select Coverage -- SCIENCE TECHNICAL OFFICER * Telephone Encounter - Rubi Ott - 10/31/2020 3:07 PM CST Spoke to patient on the phone. I introduced myself and explained that I would be calling about every 2 months. Discussed that we would be sending a packet of information in the mail. Reviewed the following: Demographics (email, address, phone numbers): No changes Patient contacts: No changes Insurance carriers: Patient confirmed [employer] plan as sole/primary Employment status and financial situation: No changes Dialysis: No changes - patient was told today that dialysis was probably necessary at this point and his shipping clerk/admin will be starting that paperwork. He will update when he's officially started treatment. Weight: Patient self reported being 212 pounds. Medical issues (hospitalizations, medical conditions, illnesses, infections, procedures, open wounds, new diagnoses, or positive COVID results): None reported Social Issues/Questions: None reported SCIENCE TECHNICAL OFFICER documented in this encounter Plan of Treatment Scheduled Procedures Name Priority Associated Diagnoses Date/Ti me TRANSPLANT KIDNEY ESRD (end stage renal disease) ([facility]) documented as of this encounter Visit Diagnoses Not on filedocumented in this encounter Care Teams Filtration Supervisor Relationship Specialty Start Date End Date Gerardo Shah MD PCP - General Internal Medicine 09/30/18 Suzette Strickland MD [address] [facility] [address] [place] [address] Referring Physician Nephrology 02/15/20 Rita Tapia, RN [address] [place] [address] Registered Nurse Business Division Chair 02/15/20 documented as of this encounter
--- OUTSIDE RECORDS SUMMARY | 2024-10-16 06:39 | XMS_ITS | Encounter Summary ---
Author Organization [facility] Healthcare Address [address] [place] [address] Care Team Providers Care Shaft Tender Name Role Phone Gerardo Shah MD Primary Care Provider [phone] Suzette Strickland MD Unavailable [phone] Rita Tapia RN Unavailable [phone] Encounter Details Date Type Department Care Team (Late st Contact Info) Description 10/10/2020 8:30 AM FLASHER ADJUSTER Lab [address] [address] Chucho Aponte MD [address] [facility] [address] [place] [address] Pre-procedure lab exam Discharge Disposition: Discharge to home or self [...] on file Legal Sex Male 4:54 AM FLASHER ADJUSTER Gender Identity Not on file Sexual Orientation Straight 05/03/2020 10 :36 AM CDT documented as of this encounter Discharge Disposition Disposition Code Departure Means Destination Discharge to home or self care documented in this encounter Plan of Treatment Scheduled Procedures Name Priority Associated Diagnoses Date/Ti me TRANSPLANT KIDNEY ESRD (end stage renal disease) ([facility]) documented as of this encounter Procedures Procedure Name Priority Date/Time Associated Diagnosis Comments COVID-19 CORONAVIRUS RNA Routine 10/10/2020 8:30 AM FLASHER ADJUSTER Pre-procedure lab exam documented in this encounter Results * COVID-19 Coronavirus RNA Nasopharyngeal (10/10/2020 8:30 AM FLASHER ADJUSTER) COVID-19 RNA Not Detected [facility] (JT) Comment: Testing performed as a component of [...] COVID-19. Interpretive Data Testing performed by the [facility] Molecular Infectious Disease Laboratory. The 2019Novel Coronavirus Assay (COVID-19) Real Time RT-PCR assay [...] last revised on 2020. Testing performed by: [facility], [address] [place] [address], [place]., [address] First COVID-19 test? No [facility] (JT) Comment:Testing performed by : [facility], [address] [place] [address]., [address] Employeed in healthcare? No [facility] (JT) Comment:Testing performed by : [facility] [address] [place]., [address] status? No [facility] (JT) Comment:Testing performed by : [facility], [address] [place] [address]., [address] Group care resident? No [facility] (JT) Comment:Testing performed by : [facility], [address] [place]., [address] Hospitalized? Unknown UMANG MARSHALL (JT) Comment:Testing performed by : [facility], [address], [address] Is patient in ICU? Unknown UMANG MARSHALL (JT) Comment:Testing performed by : [facility], [address], [address] Symptomatic as defined by CDC? No UMANG MARSHALL (JT) Comment:Testing performed by : [facility], [address], [address] Nasopharyngeal 10/10/2020 8: 30 AM FLASHER ADJUSTER 10/10/2020 2:56 PM FLASHER ADJUSTER Narrative UMANG MARSHALL (JT) - 10/11/2020 3:56 AM FLASHER ADJUSTER What is the reason for testing?->Screening prior to scheduled procedure or surgery Chucho Aponte MD LAB MICROBIOLOGY - GENERAL ORD ERABLES Final Result UMANG MARSHALL (JT) 1 [facility] Department [place] [address] documented in this encounter Visit Diagnoses Diagnosis Pre-procedure lab exam Pre-procedural laboratory examination documented in this encounter Care Teams Shaft Tender Relationship Specialty Start Date End Date Gerardo Shah MD PCP - General Internal Medicine 09/30/18 Suzette Strickland MD [address] [facility] [place] [address] [place] [address] Referring Physician Nephrology 02/15/20 Rita Tapia, RN [address] [place] [address] Registered Nurse Wheel Braider 02/15/20 documented as of this encounter
--- OUTSIDE RECORDS SUMMARY | 2024-10-16 06:39 | XMS_ITS | Encounter Summary ---
Author Organization [facility] Medical Group Address [address] [facility] [address] [place] [address] Care Team Providers Care Client Coordinator Name Role Phone Gerardo Shah MD Primary Care Provider [phone] Suzette Strickland MD Unavailable [phone] iRta Tapia RN Unavailable [phone] Reason for Visit * Reason Comments Follow-up 6 month f/u. Hx: hea rt attack Encounter Details Date Type Department Care Team (Late st Contact Info) Description 09/06/2020 10:30 AM MITER OPERATOR Office Visit [facility] Medical Group Cardiology [address] [facility] [address] [place] [address] Donaldo Tee MD [address] [facility] [address] [place] [address] Other chest pain (Primary Dx) Social History Tobacco Use Types Packs/Day Years Used Date Smoking Tobacco: Former Cigarettes 1.5 40 0 04/11/1978 - 2017 Smokeless Tobacco: Never Alcohol Use Standard Drinks/Week Comments Yes 2 (1 standard drink = 0.6 oz pur e alcohol) Sex and Gender Information Value Date Recorded Sex Assigned at Not on file Legal Sex Male 4:54 AM MITER OPERATOR Gender Identity Not on file Sexual Orientation Straight 05/03/2020 10 :36 AM CDT documented as of this encounter Last Filed Vital Signs Vital Sign Reading Time Taken Comments Blood Pressure 132/66 09/06/2020 10:29 AM MITER OPERATOR Pulse 57 09/06/2020 10:29 AM MITER OPERATOR Temperature - - Respiratory Rate - - Oxygen Saturation 96% 09/06/2020 10:29 AM MITER OPERATOR Inhaled Oxygen Concentration - - Weight 96.8 kg (213 lb 4.8 oz) 09/06/2020 10:29 AM MITER OPERATOR Height 190.5 cm (6' 3 ) 09/06/2020 10:29 AM MITER OPERATOR Body Mass Index 26.66 09/06/2020 10:29 AM MITER OPERATOR documented in this encounter Progress Notes * Donaldo Tee MD - 09/06/2020 10:30 AM CST [facility] FOLLOW UP 09/06/2020 Abel Browne is a 60 y.o. male who presents for follow up [...] dominant his mother had the same disease. He returns to the office today for scheduled follow-up. 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 Because of advancing renal insufficiency he had a AV fistula created at [facility] recently. Despite the fact that he had a normal coronaryangiogram a stress echocardiogram was performed also at [facility] this part of his evaluation is a candidate for a renal transplant. The stress test as expected was negative. REVIEW OF SYSTEMS General ROS: negative for [...] 30 doses, Disp: 30 capsule, Rfl: 0 ??? amLODIPine (NORVASC) 5 mg tablet, TAKE ONE TABLET BY MOUTH DAILY (Patient taking differently: Take 5 mg by mouth every morning ), Disp: 90 tablet, Rfl: 3 ??? aspirin 81 mg tablet, Take 81 mg by mouth every morning , Disp: , Rfl: ??? cyanocobalamin (Vitamin B-12) 1,000 mcg tablet, Take 1,000 mcg by mouth every morning , Disp: ,Rfl: ??? metoprolol (LOPRESSOR) 25 mg tablet, TAKE ONE TABLET BY MOUTH TWICE A DAY (Patient taking differently: Take 25 mg by mouth 2 (two) times a day ), Disp: 180 tablet, Rfl: 3 ??? nitroglycerin (NITROSTAT) 0.4 mg SL tablet, , Disp: , Rfl: ??? omeprazole (PriLOSEC) 40 mg capsule, Take 40 mg by mouth every morning , Disp: , Rfl: ??? sodium zirconium cyclosilicate (LOKELMA ORAL), Take by mouth, Disp: , Rfl: ??? tamsulosin (FLOMAX) 0.4 mg extended release capsule, Take 1 capsule (0.4 mg total) by mouth daily with dinner (Patient not taking: Reported on 09/06/2020), Disp: 30 capsule, Rfl: 1 LABS AND OTHER DIAGNOSTIC TESTS Lab Results Component Value Date CHOL 161 04/04/2020 Lab Results Component Value Date HDL 38 (L) 04/04/2020 Lab Results Component Value Date LDLCALC 94 04/04/2020 Lab Results Component Value Date TRIG 147 04/04/2020 Lab Results Component Value Date CHOLHDL 4 04/04/2020 Lab Results Component Value Date WBC 6.7 07/05/2020 HGB See Comment 08/01/2020 HCT See Comment 08/01/2020 MCV 98.3 (H) 07/05/2020 No lab exists for component: LABALBU PHYSICAL EXAM There were no vitals taken for this visit. Physical Examination: General appearance - alert, well [...] rashes, no suspicious skin lesions noted ASSESSMENT There are no diagnoses linked to this encounter. PLAN/RECOMMENDATIONS Continue low-dose calcium channel kathryn therapy as described above He continues to actively follow-up with nephrology at [facility] regarding potentially starting dialysis soon and/or being considered a candidate for a renal transplant Continue to see him at 6 month intervals Donaldo Tee MD R OPERATOR documented in this encounter Plan of Treatment Scheduled Procedures Name Priority Associated Diagnoses Date/Ti me TRANSPLANT KIDNEY ESRD (end stage renal disease) ([facility]) documented as of this encounter Visit Diagnoses Diagnosis Other chest pain- Primary documented in this encounter Discontinued Medications Medication Sig Discontinue Reason Start Date End Da te ciprofloxacin (CIPRO) 500 mg tablet Take 1.5 tablets (750 mg total) by mouth daily Therapy completed 07/07/2020 09/06/2020 sennosides (SENNA ORAL)Indications:cons tipation Take 3 tablets by mouth as needed Therapy completed 09/06/2020 oxyCODONE (ROXICODONE) 5 mg immediate release tabletIndications:Anali n Take 1 tablet (5 mg total) by mouth every 6 (six) hours as needed for pain Therapy completed 08/01/2020 09/06/2020 oxyCODONE (ROXICODONE) 5 mg immediate release tabletIndications:Anali n Take 1 tablet (5 mg total) by mouth every 6 (six) hours as needed for pain Therapy completed 07/06/2020 09/06/2020 lactulose solution 10 gram/15mLIndications: constipation Take 10 g by mouth as needed Therapy completed 02/22/2020 09/06/2020 famotidine (PEPCID) 20 mg tablet Take 20 mg by mouth 2 (two) times a day Therapy completed 09/06/2020 cyclobenzaprine (FLEXERIL) 5 mg tablet Take 1 tablet (5 mg total) by mouth 3 (three) times a day as needed for muscle spasms for up to 20 doses Therapy completed 06/18/2020 09/06/2020 bisacodyL (DULCOLAX) 10 mg suppository Insert 0.5 suppositories (5 mg total) into the rectum daily as needed for constipation for up to 10 doses Therapy completed 06/18/2020 09/06/2020 documented as of this encounter Care Teams Client Coordinator Relationship Specialty Start Date End Date Gerardo Shah MD PCP - General Internal Medicine 09/30/18 Suzette Strickland MD [address] [facility] [address] [place] [address] Referring Physician Nephrology 02/15/20 Rita Tapia, RN [address] [place], [place] [id number] Registered Nurse Associate Art Director 02/15/20 documented as of this encounter
--- OUTSIDE RECORDS SUMMARY | 2024-10-16 06:39 | XMS_ITS | Encounter Summary ---
Author Organization [facility] Healthcare Address [address] [place] [address] Care Team Providers Care Oliving Machine Operator Name Role Phone Gerardo Shah MD Primary Care Provider [phone] Suzette Strickland MD Unavailable [phone] Rita Tapia RN Unavailable [phone] Encounter Details Date Type Department Care Team (Late st Contact Info) Description 09/06/2020 Telephone [facility] Radiology [address] [place] [address] Marc Khan MD [address] [id number] [address] [place], [place] [id number] Social History Tobacco Use Types Packs/Day Years Used Date Smoking Tobacco: Former Cigarettes 1.5 40 0 04/11/1978 - 2017 Smokeless Tobacco: Never Alcohol Use Standard Drinks/Week Comments Yes 2 (1 standard drink = 0.6 oz pur e alcohol) Sex and Gender Information Value Date Recorded Sex Assigned at Not on file Legal Sex Male 4:54 AM DIRECTOR STATISTICAL PROGRAMMING Gender Identity Not on file Sexual Orientation Straight 05/03/2020 10 :36 AM CDT documented as of this encounter Plan of Treatment Scheduled Procedures Name Priority Associated Diagnoses Date/Ti me TRANSPLANT KIDNEY ESRD (end stage renal disease) ([facility]) documented as of this encounter Visit Diagnoses Not on filedocumented in this encounter Care Teams Oliving Machine Operator Relationship Specialty Start Date End Date Gerardo Shah MD PCP - General Internal Medicine 09/30/18 Suzette Strickland MD [address] [facility] [address] [place] [address] Referring Physician Nephrology 02/15/20 Rita Tapia, RN [address] [place] [address] Registered Nurse Environmental Field Professional 02/15/20 documented as of this encounter
--- OUTSIDE RECORDS SUMMARY | 2024-10-16 06:39 | XMS_ITS | Encounter Summary ---
Author Organization [facility] Address [address] [place] [address] Phone Care Team Providers Care Balcony Worker Name Role Phone Gerardo Shah MD Primary Care Provider [phone] Suzette Strickland MD Unavailable [phone] Rita Tapia RN Unavailable [phone] Encounter Details Date Type Department Care Team (Late st Contact Info) Description 10/14/2020 Telephone [facility] Surgery [address] [facility] Advanced Medicine 8th [place] [address] [place] [address] Chucho Aponte MD [address] [facility] [address] [place] [address] Social History Tobacco Use Types Packs/Day Years Used Date Smoking Tobacco: Former Cigarettes 1.5 40 0 04/11/1978 - 2017 Smokeless Tobacco: Never Alcohol Use Standard Drinks/Week Comments Yes 1 (1 standard drink = 0.6 oz pur e alcohol) OCC Sex and Gender Information Value Date Recorded Sex Assigned at Not on file Legal Sex Male 4:54 AM SUPERVISOR LOADING Gender Identity Not on file Sexual Orientation Straight 05/03/2020 10 :36 AM CDT documented as of this encounter Miscellaneous Notes * Telephone Encounter - Rona Amin, A - 10/14/2020 9:19 AM SUPERVISOR LOADING Vascular Post Surgical Follow Up Patient was contacted post discharge day 2 to assess progress. How are you feeling: Feeling fine Activity: whatever he wants Incision: Incision is clean and dry and there are no concerns Pain: 0 /10 Other concerns/ questions: will follow up PRN when or if they need to start using his access. Instructed to contact the office with any questions or concerns. RVISOR LOADING documented in this encounter Plan of Treatment Scheduled Procedures Name Priority Associated Diagnoses Date/Ti me TRANSPLANT KIDNEY ESRD (end stage renal disease) ([facility]) documented as of this encounter Visit Diagnoses Not on filedocumented in this encounter Care Teams Balcony Worker Relationship Specialty Start Date End Date Gerardo Shah MD PCP - General Internal Medicine 09/30/18 Suzette Strickland MD [facility] [facility] [address] [place] [address] Referring Physician Nephrology 02/15/20 Rita Tapia, RN [address] [place] [address] Registered Nurse Garbage Man 02/15/20 documented as of this encounter
--- OUTSIDE RECORDS SUMMARY | 2024-10-16 06:40 | XMS_ITS | Encounter Summary ---
Author Organization [facility] Medical Group Address [address] [facility] [address] [place] [address] Care Team Providers Care Acetaldehyde Converter Operator Name Role Phone Gerardo Shah MD Primary Care Provider [phone] Suzette Strickland MD Unavailable [phone] Rita Tapia RN Unavailable [phone] Encounter Details Date Type Department Care Team (Late st Contact Info) Description 07/26/[address] [facility] Testing Site - [address] [place] [address] Chucho Aponte MD [address] [facility] [id number] [place] [address] Pre-op testing (Primary Dx) Social History Tobacco Use Types Packs/Day Years Used Date Smoking Tobacco: Former Cigarettes 1.5 40 0 04/11/1978 - 2017 Smokeless Tobacco: Never Alcohol Use Standard Drinks/Week Comments Yes 2 (1 standard drink = 0.6 oz pur e alcohol) Sex and Gender Information Value Date Recorded Sex Assigned at Not on file Legal Sex Male 4:54 AM FLAME DEGREASER Gender Identity Not on file Sexual Orientation Straight 05/03/2020 10 :36 AM CDT documented as of this encounter Progress Notes * Idania Pacheco MA - 07/26/2020 2:45 PM CDT Placed covid order for Saturday in [place]. Will contact pt via [employer] with details. documented in this encounter Plan of Treatment Scheduled Procedures Name Priority Associated Diagnoses Date/Ti me TRANSPLANT KIDNEY ESRD (end stage renal disease) (CMS/HCC) documented as of this encounter Results * COVID-19 Coronavirus RNA Nasopharyngeal (07/29/2020 7:58 AM CDT) COVID-19 RNA Not Detected [facility] (JT) Comment: Interpretive Data Testing performed at [facility] Molecular Infectious Disease Laboratory. The 2018- Coronavirus Assay (COVID-19) Real Time RT-PCR assay [...] last revised on 2020. Testing performed by: [facility], [address] [place] [address]., [address] First COVID-19 test? No [facility] (JT) Comment:Testing performed by : [facility], [address] [place] [address]., [address] Employeed in healthcare? No [facility] (JT) Comment:Testing performed by : [address] [address] status? No [facility] (JT) Comment:Testing performed by : [address] [address] Group care resident? No [facility] (JT) Comment:Testing performed by : [facility], [address] [place] [address]., [address] Hospitalized? Unknown [facility] (JT) Comment:Testing performed by : [address], [address] Is patient in ICU? Unknown UMANG MARSHALL (JT) Comment:Testing performed by : [facility], [address] [place]., [address] Symptomatic as defined by CDC? No UMANG MARSHALL (JT) Comment:Testing performed by : [facility], [address] [place]., [address] Nasopharyngeal 07/29/2020 7: 58 AM CDT 07/29/2020 2:23 PM CDT Narrative UMANG MARSHALL (JT) - 07/29/2020 8:21 PM CDT What is the reason for testing?->Screening prior to scheduled (>12 hr) surgery or procedure Chucho Aponte MD LAB MICROBIOLOGY - GENERAL ORD ERABLES Edited Result - Final UMANG MARSHALL (JT) 1 [facility] Department [place] [address] documented in this encounter Visit Diagnoses Diagnosis Pre-op testing- Primary Unspecified pre-operative examination Pre-op testing Unspecified pre-operative examination documented in this encounter Care Teams Acetaldehyde Converter Operator Relationship Specialty Start Date End Date Gerardo Shah MD PCP - General Internal Medicine 09/30/18 Suzette Strickland MD [address] [facility] [address] [place] [address] Referring Physician Nephrology 02/15/20 Rita Tapia, RN [address] [place] [address] Registered Nurse Bleach Tester 02/15/20 documented as of this encounter
--- OUTSIDE RECORDS SUMMARY | 2024-10-16 06:40 | XMS_ITS | Encounter Summary ---
Author Organization [facility] Healthcare Address [address] [place] [address] Care Team Providers Care Storage Battery Charger Name Role Phone Gerardo Shah MD Primary Care Provider [phone] Suzette Strickland MD Unavailable [phone] Rita Tapia RN Unavailable [phone] Encounter Details Date Type Department Care Team (Late st Contact Info) Description 08/01/2020 8:30 AM CDT - 08/01/2020 11:25 AM CDT Surgery [facility] Operating Room [address] [place] [address] Chucho Aponte MD [id number] [place] [address] CREATION ARTERIOVENOUS FISTULA - ARM Surgery Details Date/Time Status Location OR Service Patient Class Case Cl ass Case Type Trauma Case? 08/01/2020 8:30 AM Posted [facility] OR POD 3 307 Vascular Outpatient Elective Panel 1 Procedure LRB Anes Op Region Wound Class Comments CREATION ARTERIOVENOUS FISTULA - ARM Left General Elb ow Class I - Clean Surgeon Surgeon Role Service Panel Chucho Aponte MD Primary Vascular 1 Mohan Mcmullen MD Fellow Vascular 1 Case Notes 07/08: date changed from 07/11 to 08/01 per Rona via in-basket. DRE06/23: date changed from 07/06 to 07/11 per Rona via in-basket. 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 Gender Identity Not on file Sexual Orientation Straight 05/03/2020 10 :36 AM CDT documented as of this encounter Last Filed Vital Signs Vital Sign Reading Time Taken Comments Blood Pressure 133/75 08/01/2020 11:20 AM CDT Pulse 60 08/01/2020 11:20 AM CDT Temperature 36.2 ??C (97.2 ??F) 08/01/2020 10:05 AM C DT Respiratory Rate 20 08/01/2020 11:20 AM CDT Oxygen Saturation 98% 08/01/2020 11:20 AM CDT Inhaled Oxygen Concentration - - Weight 96.2 kg (212 lb) 06/27/2020 8:48 AM CDT Height 190.5 cm (6' 3 ) 06/27/2020 8:48 AM CDT Body Mass Index 26.5 06/27/2020 8:48 AM CDT documented in this encounter Discharge Instructions * Discharge Instructions* Mohan Mcmullen MD - 08/01/2020 9:55 AM CDT Resume your prior home medications Use tylenol for pain. If pain persists use prescribed oxycodone. You received a left arm brachiocephalic arteriovenous fistula. Do not allow anyone to perform needle sticks on your left arm or access your fistula until cleared by Dr. Aponte's office. We will arrange for your follow up in a month. The skin glue on your arm will come off on its own. Please do not scratch it off or peel it off. Donot soak your left arm or lift > 10 lbs with your left arm for 4 weeks after surgery. You may get your incision wet (do not soak it) after 48 hours. * Attachments The following attachments cannot be sent through Care Everywhere. * Arteriovenous Fistula Creation for Hemodialysis (Discharge Care) ([place]izen [place]) * Skin Adhesive Care (Discharge Care) ([place]izen [place]) * [facility] PATHWAY TO EXCELLENT CARE AFTER SURGERY documented in this encounter Medications at Time of Discharge acetaminophen 500 mg capsuleIndication s:Pain Take 1 capsule (500 mg total) by mouth every 6 (six) hours as needed for pain for up to 30 doses 30 capsule 0 aspirin 81 mg tabletIndications :Myocardial Reinfarction Prevention Take 1 tablet (81 mg total) by mouth every morning cyanocobalamin (Vitamin B-12) 1,000 mcg tabletIndications :Prevention of Vitamin B12 Deficiency Take 1 tablet (1,000 mcg total) by mouth every morning polyethylene glycol (MIRALAX) 17 gram packetIndications :constipation Take 1 packet (17 g total) by mouth daily 30 packet 0 08/07/20 20 amLODIPine (NORVASC) 5 mg tablet TAKE ONE TABLET BY MOUTH DAILY 90 tablet 3 0 12/29/19 21 bisacodyL (DULCOLAX) 10 mg suppository Insert 0.5 suppositories (5 mg total) into the rectum daily as needed for constipation for up to 10 doses 10 suppository 0 09/06/20 20 ciprofloxacin (CIPRO) 500 mg tablet Take 1.5 tablets (750 mg total) by mouth daily 10 tablet 0 09/06/20 20 cyclobenzaprine (FLEXERIL) 5 mg tablet Take 1 tablet (5 mg total) by mouth 3 (three) times a day as needed for muscle spasms for up to 20 doses 20 tablet 0 09/06/20 20 lactulose solution 10 gram/15mLIndicati ons:constipation Take 10 g by mouth as needed 0 09/06/20 20 metoprolol (LOPRESSOR) 25 mg tablet TAKE ONE TABLET BY MOUTH TWICE A DAY 180 tablet 3 0 12/29/19 21 nitroglycerin (NITROSTAT) 0.[address] 1 tablet (0.4 mg total) under the tongue every 5 (five) minutes as needed 8 09/05/20 23 omeprazole (PriLOSEC) 40 mg capsuleIndication s:Treatment of Non-Bleeding Gastric Disorder Take 40 mg by mouth every morning 9 03/09/20 21 oxyCODONE (ROXICODONE) 5 mg immediate release tabletIndications :Pain Take 1 tablet (5 mg total) by mouth every 6 (six) hours as needed for pain 10 tablet 0 09/06/20 20 oxyCODONE (ROXICODONE) 5 mg immediate release tabletIndications :Pain Take 1 tablet (5 mg total) by mouth every 6 (six) hours as needed for pain 10 tablet 0 09/06/20 20 sennosides (SENNA ORAL)Indications: constipation Take 3 tablets by mouth as needed 09/06/20 20 tamsulosin (FLOMAX) 0.4 mg extended release capsule Take 1 capsule (0.4 mg total) by mouth daily with dinner 30 capsule 1 0 09/28/20 20 documented as of this encounter Ordered Prescriptions Prescription Sig Dispense Quantity Refills Last Filled Start Date End Date oxyCODONE (ROXICODONE) 5 mg immediate release tabletIndications: Pain Take 1 tablet (5 mg total) by mouth every 6 (six) hours as needed for pain 10 tablet 08/01/2020 09/06/2020 documented in this encounter Discharge Disposition Disposition Code Departure Means Destination Discharge to home or self care documented in this encounter H&P Notes * Mohan Mcmullen MD - 08/01/2020 6:29 AM CDT Vascular Surgery History and Physical Admission Date: 08/01/2020 Abel Browne is a 60 y.o. male with chief complaint of need for dialysis access. HPI: 60 year old male with history of ckd 4-5, OK, htn, hld, copd/asthma, crcl around 20, and yet to initiate dialysis. He has had a recent nephrectomy and had a wound complication requiring readmission. Denies fevers, chills, cp, sob, n/v, abd pain, extremity issues. The following conditions are considered present on admission and being treated, or evaluated. Chronic Kidney Disease: Stage 4 = eGFR 15-29 Past Medical History: Diagnosis Date ??? Anemia of chronic disease ??? Arthritis ??? Asthma ??? Bradycardia ??? CKD (chronic kidney disease) ??? COPD (chronic obstructive pulmonary disease) (CMS/HCC) mild ??? GERD (gastroesophageal reflux disease) ??? Heart attack (CMS/HCC) 09/2018 ??? Hiatal hernia ??? Pneumonia ??? Polycystic kidney disease ??? PONV (postoperative nausea and vomiting) Past Surgical History: Procedure Laterality Date ??? CARDIAC CATHETERIZATION 2019 ??? COLONOSCOPY 03/2020 ??? NEPHRECTOMY 05/2020 ??? OTHER SURGICAL HISTORY 1973 Ureteral surgery HOME MEDICATIONS : acetaminophen 500 mg capsule amLODIPine (NORVASC) 5 mg tablet aspirin 81 mg tablet bisacodyL (DULCOLAX) 10 mg suppository cyanocobalamin (Vitamin B-12) 1,000 mcg tablet cyclobenzaprine (FLEXERIL) 5 mg tablet lactulose solution 10 gram/15mL metoprolol (LOPRESSOR) 25 mg tablet omeprazole (PriLOSEC) 40 mg capsule sennosides (SENNA ORAL) tamsulosin (FLOMAX) 0.4 mg extended release capsule ciprofloxacin (CIPRO) 500 mg tablet nitroglycerin (NITROSTAT) 0.4 mg SL tablet oxyCODONE (ROXICODONE) 5 mg immediate release tablet polyethylene glycol (MIRALAX) 17 gram packet No Known Allergies Social History Tobacco Use ??? Smoking status: Former Smoker Packs/day: 1.50 Years: 40.00 Pack years: 60.00 Types: Cigarettes Start date: 04/11/1978 Quit date: 2018 Years since quittin.7 ??? Smokeless tobacco: Never Used Substance Use Topics ??? Alcohol use: Yes Alcohol/week: 2.0 - 3.0 standard drinks Types: 2 - 3 Cans of beer per week Family History Problem Relation Age of Onset ??? Aneurysm Mother ??? Kidney disease Mother ??? Cancer Father ??? Kidney disease Sister ??? PONV Sister ??? Anesthesia problems Neg Hx Review of Systems: Must be review of 10 systems Review of Systems 10 pt ros negative except as noted per hpi Vitals: Arrival Vitals [08/01/20 0620] Temp 36.4 ??C (97.5 ??F) Pulse 62 Resp 14 BP SpO2 100 % Temp src Heart Rate Source Patient Position BP Location FiO2 (%) Most Recent : Vitals: 08/01/20 0620 Pulse: 62 Resp: 14 Temp: 36.4 ??C (97.5 ??F) SpO2: 100% Objective Physical exam: Must include at least two elements each from 9 organ systems for a comprehensive exam Physical Exam Aox4, nad ncat Mmm Neck supple Neuro grossly intact rrr nwob abd s/nt/nd, dressing over rlq Ext wwp Palp left radial pulse Lab/Radiology/Diagnostic Review: Lab results in the last 24 hours: No results found for this or any previous visit (from the past 24hour(s)). , Chemistry CMP: No results found for: ALBUMIN, BUNSER, CALCIUM, CO2, CHLORIDE, CREATININE, GLUCOSE, POTASSIUM, SODIUM, BILITOT, PROTEIN, PROT, PROTSER, ALT, AST, GGT, ALKPHOS, CBC:No results found for: WBC, RBC, HGB, HCT, MCV, MCH, MCHC, RDW, RDWCV, RDWSD, MPV, NRBC, NRBCABS, NRBCPCT, Coags: No results found for: PT, PTT, APTT, FFN, FIBRINOGEN, INR, ACTIVATEDCL, Lipids: No results found for: CHOL, CHLPL, HDL, LDLCALC, TRIG, CHOLHDL, Cardiac Enzymes: No results found for: CKTOTAL, CKMB, CKMBINDEX, TROPONINT and POC Glucose: No results found for: GLUCOSE US Kidney Complete Narrative: EXAMINATION: COMPLETE RENAL SONOGRAM HISTORY: 60-year-old man with polycystic kidney disease status post right nephrectomy with evaluation prior to kidney transplant. COMPARISON: CT from 07/03/2020 FINDINGS: Kidneys: The right kidney is surgically absent. There is minimal residual renal parenchyma on the left. The left kidney is significantly enlarged secondary to numerous cysts measuring up to 20.9 cm. There is no left hydronephrosis. There are innumerable simple, anechoic cysts throughout the left kidney. There are scattered calcifications throughout the left kidney. Bladder: The urinary bladder is normal Impression: Innumerable cysts throughout the left kidney in keeping with polycystic kidney disease with multiple scattered calcifications. Electronically signed by: Clem Osborn M.D. Principal Problem: End-stage renal disease (ESRD) ([facility]) Assessment /Plan No new Assessment & Plan notes have been filed under this hospital service since the last note was generated. Service: Vascular Surgery 60M crcl 20, yet to initiate hd. Right hand dominant. Plan for left arm access creation today in the OR Mohan Mcmullen MD Fellow, Vascular/Endovascular Surgery Pager: [phone] Cosigned by Chucho Aponte MD at 08/01/2020 6:41 AM CDT documented in this encounter Miscellaneous Notes * Perioperative Nursing Note - Pam Winston RN - 08/01/2020 11:03 AM CDT K+ level of 4.7 after surgery was reported to Dr Spence, anesthesia * Perioperative Nursing Note - Pam Winston RN - 08/01/2020 11:00 AM CDT Belongings retrieved from [address], sealed, and placed on bed. * Perioperative Nursing Note - Pam Winston RN - 08/01/2020 10:40 AM CDT Potassium drawn and result is 4.7 * Op Note - Chucho Aponte MD - 08/01/2020 8:57 AM CDT SALOONKEEPER Mohan Mcmullen MD ANESTHESIA: General PREOPERATIVE DIAGNOSIS (ES): End stage renal disease requiring hemodialysis access. POSTOPERATIVE DIAGNOSIS (ES): End stage renal disease requiring hemodialysis access. NAME OF OPERATION: Ultrasound of left arm veins. Creation of left AC fossa dialysis fistula (radial artery to median cubital/cephalic vein). INDICATIONS FOR PROCEDURE: End stage renal disease requiring hemodialysis access. OPERATIVE FINDINGS: Successful creation of dialysis fistula. DESCRIPTION OF PROCEDURE: The appropriate extremity was identified in the preoperative holding area, marked, and reconfirmed during a pre-incision ???time-out?? procedure. An ultrasound of the vascular structures was performed and printed photographic images of the ultrasound were placed on the patient???s permanent hospital chart. The ultrasound demonstrated an adequate sized vein with no evidence of thrombus, stenosis or occlusion in the segment planned for AVF creation. The patient has a high bifurcation of the left brachial artery An incision was made exposing the necessary length of the radial artery at the elbow and median cubital/cephalic vein. The vein was ligated distally and transposed onto the adjacent artery, with an end to side anastomosis created using Prolene suture. After appropriate flushing, flow was institutedthrough the fistula as well as restored into the jamul arterial circulation. Adequate distal arterial perfusion to the hand was confirmed, and flow through the fistula was confirmed by the presence of a thrill near the anastomosis and a doppler signal in the upper arm. The cephalic vein distal to its median cubital vein confluence was ligated. The incision was then irrigated and closed after confirming hemostasis. SPECIMENS REMOVED: None. ESTIMATED BLOOD LOSS: Minimal INTRAOPERATIVE FLUIDS: See anesthesia records. SPONGE/INSTRUMENT/NEEDLE COUNTS: Correct. CONDITION ON DISCHARGE FROM OPERATING ROOM: Stable. PRESENCE STATEMENT: I was present for the entire procedure * Pre-Procedure Instructions - Idania Sousa NP - 06/29/2020 8:19 AM CDT Center for Preoperative Assessment and Planning CPAP Clinic Location: [facility] The night before your surgery: * Do [...] rinse your mouth out. * Do not wear jewelry, body piercings, [...] be cared for in the hospital overnight. Instructions For Your Medications: Pre-Surgery Instructions: Medication Instructions ??? acetaminophen 500 mg capsule Take on day of surgery if needed ??? amLODIPine (NORVASC) 5 mg tablet Take morning of surgery ??? aspirin 81 mg tablet Per surgeon recommendation ??? bisacodyL (DULCOLAX) 10 mg suppository Don't take on day of surgery ??? cyanocobalamin (Vitamin B-12) 1,000 mcg tablet Don't take on day of surgery ??? cyclobenzaprine (FLEXERIL) 5 mg tablet Take on day of surgery if needed ??? HYDROcodone-acetaminophen (NORCO) 5-325 mg per tablet Take on day of surgery if needed ??? lactulose solution 10 gram/15mL Don't take on day of surgery ??? metoprolol (LOPRESSOR) 25 mg tablet Take morning of surgery ??? nitroglycerin (NITROSTAT) 0.4 mg SL tablet Take on day of surgery if needed ??? omeprazole (PriLOSEC) 40 mg capsule Take morning of surgery ??? sennosides (SENNA ORAL) Don't take on day of surgery ??? tamsulosin (FLOMAX) 0.4 mg extended release capsule Take per usual the night before surgery Your surgeon will tell you IF YOU SHOULD STOP the following medications and WHEN TO STOP taking them. Do not stop taking them on your own without being told to do so: Aspirin General Instructions For Medications: ?? Stop all of these medications 7-14 [...] bowel prep or special diet before surgery * Perioperative Nursing Note - Nery Pruitt RN - 06/27/2020 9:05 AM CDT Center for Preoperative Assessment and Planning Perioperative Nursing Note Telephone Preoperative Evaluation ([facility]) - TELEPHONE ONLY, NO PHYSICAL EXAM Date: 06/27/20 Vitals: 06/27/20 0848 Weight: 96.2 kg (212 lb) Height: 190.5 cm (6' 3 ) CHEST CIRCUMFERENCE: N/A Social History Tobacco Use Smoking Status Former Smoker ??? Packs/day: 1.50 ??? Years: 40.00 ??? Pack years: 60.00 ??? Types: Cigarettes ??? Start date: 04/11/1978 ??? Quit date: 2017 ??? Years since quittin.6 Smokeless Tobacco Never Used Substance and Sexual Activity Alcohol Use Yes ??? Alcohol/week: 2.0 - 3.0 standard drinks ??? Types: 2 - 3 Cans of beer per week Substance and Sexual Activity Drug Use No Outpatient Medications Marked as Taking for the 07/11/20 encounter (Hospital Encounter) with Chucho Aponte MD Medication Sig Dispense Refill ??? acetaminophen 500 mg capsule Take 1 capsule (500 mg total) by mouth every 6 (six) hours as needed for pain for up to 30 doses 30 capsule 0 ??? amLODIPine (NORVASC) 5 mg tablet TAKE ONE TABLET BY MOUTH DAILY (Patient taking differently: Take 5 mg by mouth every morning ) 90 tablet 3 ??? aspirin 81 mg tablet Take 81 mg by mouth every morning ??? bisacodyL (DULCOLAX) 10 mg suppository Insert 0.5 suppositories (5 mg total) into the rectum daily as needed for constipation for up to 10 doses 10 suppository 0 ??? cyanocobalamin (Vitamin B-12) 1,000 mcg tablet Take 1,000 mcg by mouth every morning ??? cyclobenzaprine (FLEXERIL) 5 mg tablet Take 1 tablet (5 mg total) by mouth 3 (three) times a day as needed for muscle spasms for up to 20 doses 20 tablet 0 ??? HYDROcodone-acetaminophen (NORCO) 5-325 mg per tablet Take 1 tablet by mouth every 6 (six) hours as needed (breakthrough pain) (Patient taking differently: Take 1 tablet by mouth as needed (breakthrough pain) ) 20 tablet 0 ??? lactulose solution 10 gram/15mL Take 10 g by mouth as needed ??? metoprolol (LOPRESSOR) 25 mg tablet TAKE ONE TABLET BY MOUTH TWICE A DAY (Patient taking differently: Take 25 mg by mouth 2 (two) times a day ) 180 tablet 3 ??? nitroglycerin (NITROSTAT) 0.4 mg SL tablet ??? omeprazole (PriLOSEC) 40 mg capsule Take 40 mg by mouth every morning ??? polyethylene glycol (MIRALAX) 17 gram packet Take 1 packet (17 g total) by mouth 2 (two) times a day for 20 doses (Patient taking differently: Take 17 g by mouth as needed for constipation ) 20 packet 0 ??? sennosides (SENNA ORAL) Take 3 tablets by mouth as needed ??? tamsulosin (FLOMAX) 0.4 mg extended release capsule Take 1 capsule (0.4 mg total) by mouth daily with dinner (Patient taking differently: Take 0.4 mg by mouth every morning ) 30 capsule 1 Implants No active implants to display in this view. SKIN Piercings Remaining: No Wound (LDAs) Type of Wound (LDA): (denies) SCREENINGS Abisai Fall Risk Score (Retired): 15 Luis Enrique index score: 100 Is someone currently physically or emotionally hurting you or your family?: Denies PATIENT CARE PLANNING Advance Directives (For Healthcare) Advance Directive: Patient does not have advance directive Communication/Rib Trim Separator Needs Communication Needs: Glasses Patient's Preferred Language: Citizen Of [place] Does caregiver's language differ from patient's?: No Is an mailroom associate needed? : No Assistive Devices/DME: Dentures upper, Eyeglasses Discharge Planning Type of Residence: Private residence Living Arrangements: Spouse/significant other Support Systems: Spouse/significant other Patient expects to be discharged to:: Private residence(Animal Attendant: sister) COVID Screening Covid-19 Screening In the last 10 days have you had any new or worsening cough, SOB, fever (>=100F), body aches, loss of taste or smell, diarrhea or vomiting, or sore throat: No Have you had close contact with anyone with confirmed or suspected COVID-19 in the past 3 weeks?: No Do you live in or work in a congregate living facility (ex. assisted living/prison facility, alf, long-term)?: No Have you previously tested positive for COVID-19? No TESTING PLAN-See Instructions for plan We recommend you Self-Isolate after COVID Testing: Stay at home, if possible until your surgery date. Maintain a 6 foot distance from other people (social distancing). Avoid touching your eyes, nose and mouth with unwashed hands. Wash your hands often with soap and water for at least 20 seconds. Use an alcohol- based hand mechanical door repairer that contains at least 60% alcohol if soap and water are not available. ADDITIONAL COMMENTS/ FOLLOW UP * Pre-Procedure Instructions - Nery Pruitt RN - 06/27/2020 9:04 AM CDT PRE-SURGICAL INSTRUCTIONS ??? General Information ?? Surgery [...] insurance card, a photo ID (like a Animal Attendant's license) and a method of payment for [...] the surgery. COVID TESTING PLAN COVID Test set up [facility] on 07/07/20. In-basket message sent to [email or web address]. Patient aware of plan. If you need to reschedule your COVID test to a different location or if your surgery gets rescheduled, you MUST call [phone] Saturday-Saturday 8am-4:30pm to get your COVID testing rescheduled or your lab order will not be available at Testing Sites. COVID Testing is only valid for up to 96 hours prior to surgery date, unless otherwise specified. We recommend you Self-Isolate after COVID Testing: Stay at home, if possible until your surgery date. Maintain a 6 foot distance from other people (social distancing). Avoid touching your eyes, nose and mouth with unwashed hands. Wash your hands often with soap and water for at least 20 seconds. Use an alcohol- based hand mechanical door repairer that contains at least 60% alcohol if soap and water are not available. All visitors/patients are being asked to wear a clean mask when entering the hospital. COVID 19 Updates & Visitor Policy: Please access [email or web address] for the most updated information. Surgery Times: For patients having surgery @ [facility], [facility] or [facility], if your surgeon's office has not notified you of your surgery time by NOON THE BUSINESS DAY BEFORE your surgery, please call [phone] and ask for your surgeon'soffice Dr. Aponte. documented in this encounter Plan of Treatment Scheduled Procedures Name Priority Associated Diagnoses Date/Ti me TRANSPLANT KIDNEY ESRD (end stage renal disease) ([facility]) documented as of this encounter Procedures Procedure Name Priority Date/Time Associated Diagnosis Comments POC BLOOD GAS AND CHEMISTRIES, ARTERIAL Routine 08/01/2020 10:31 AM CDT POC BLOOD GAS AND CHEMISTRIES, VENOUS Routine 08/01/2020 10:29 AM CDT CREATION ARTERIOVENOUS FISTULA - ARM 08/01/2020 8:27 AM CDT End-stage renal disease (ESRD) ([facility]) Case Notes 07/08: date changed from 07/11 to 08/01 per Rona via in-basket. DRE06/23: date changed from 07/06 to 07/11 per Rona via in-basket. LINDA POC BLOOD GAS AND CHEMISTRIES, VENOUS Routine 08/01/2020 6:54 AM CDT documented in this encounter Results * POC Blood Gas and Chemistries, Arterial - (08/01/2020 10:31 AM CDT) K POC 4.7 3.3 - 4.9 mmol/L [facility] Comment: Interpretive Data Unable to assess hemolysis. ??Invitro hemolysis causes falsely elevated potassium. Current Interpretive Data was last revised on 2020. Blood specimen (specimen) 08/01/2020 10:31 AM CDT 08/01/2020 10:31 AM CDT us Chucho Aponte MD LAB POCT ORDERABLES - DEVICE F inal Result [facility] Department [place] [address] * POC Blood Gas and Chemistries, Venous - (08/01/2020 10:29 AM CDT) pH, Saad POC See Comment 7.32 - 7.43 [facility] Comment:Credited, interface order error pCO2, saad POC See Comment 40 - 50 [facility] Comment:Credited, interface order error pO2, saad POC See Comment [facility] Comment:Credited, interface order error Na, POC See Comment 135 - 145 [facility] Comment:Credited, interface order error Cl, POC See Comment 97 - 110 [facility] Comment:Credited, interface order error Ionized Ca, POC See Comment 4.50 - 5.10 [facility] Comment:Credited, interface order error Glucose, POC See Comment 70 - 199 [facility] Comment:Credited, interface order error Lactate, POC See Comment 0.7 - 2.2 [facility] Comment:Credited, interface order error O2Hb, Saad POC See Comment 90.0 - 95.0 [facility] Comment:Credited, interface order error COHb, Saad POC See Comment 0.0 - 2.9 [facility] Comment:Credited, interface order error MetHb, Saad POC See Comment 0.0 - 1.9 [facility] Comment:Credited, interface order error O2 Sat, Saad POC (Jennie) See Comment [facility] Comment:Credited, interface order error Base excess, POC See Comment [facility] Comment:Credited, interface order error HCO3, Saad POC See Comment 20 - 30 [facility] Comment:Credited, interface order error Hct, POC See Comment 41.4 - 51.6 [facility] Comment:Credited, interface order error Total Hb, POC See Comment 13.8 - 17.2 [facility] Comment:Credited, interface order error O2 Sat, Saad POC (Calc) See Comment [facility] Comment:Credited, interface order error Blood specimen (specimen) 08/01/2020 10:29 AM CDT 08/01/2020 10:29 AM CDT Chucho Aponte MD LAB POCT ORDERABLES - DEVICE E dited Result - Final [facility] Department [place] [address] * (ABNORMAL) POC Blood Gas and Chemistries, Venous - (08/01/2020 6:54 AM CDT) pH, Saad POC 7.29(L) 7.32 - 7.43 [facility] pCO2, saad POC 47 40 - 50 mmHg [facility] pO2, saad POC 47 mmHg [facility] Na, POC 142 135 - 145 mmol/L [facility] K POC 5.5(H) 3.3 - 4.9 mmol/L [facility] Comment: Interpretive Data Unable to assess hemolysis. ??Invitro hemolysis causes falsely elevated potassium. Current Interpretive Data was last revised on 2020. Cl, POC 111(H) 97 - 110 mmol/L [facility] Ionized Ca, POC 5.06 4.50 - 5.10 mg/dL [facility] Glucose, POC 88 70 - 199 mg/dL [facility] Lactate, POC 0.8 0.7 - 2.2 mmol/L [facility] O2 Sat, Saad POC (Jennie) 83 % [facility] Base excess, POC -4.2 mmol/L [facility] HCO3, Saad POC 23 20 - 30 mmol/L [facility] Hct, POC 30.0(L) 41.4 - 51.6 % [facility] Total Hb, POC 9.9(L) 13.8 - 17.2 g/dL [facility] O2 Sat, Saad POC (Calc) 77 % [facility] Blood specimen (specimen) 08/01/2020 6:54 AM CDT 08/01/2020 6:54 AM CDT us Chucho Aponte MD LAB POCT ORDERABLES - DEVICE F inal Result [facility] Department [place] [address] documented in this encounter Visit Diagnoses Diagnosis End-stage renal disease (ESRD) (CMS/HCC) (HCC)- Primary End-stage renal disease (ESRD) (CMS/HCC) (HCC) documented in this encounter Admitting Diagnoses Diagnosis End-stage renal disease (ESRD) (CMS/HCC) (HCC) documented in this encounter Administered Medications Inactive Administered Medications - up to 3 most recent administrations Medication Order MAR Action Action Date Dose Rate Site acetaminophen (TYLENOL) tablet 500 mg 500 mg, oral, Once, On Sat08/01/20 at 1315, For 1 dose, Phase I Given 08/01/2020 1:11 PM CDT 500 mg heparin in 0.9% sodium chloride 1,000 units/500 mL (2 unit/mL) infusion (premix) As needed, Starting on Sat08/01/20 at 0929, Intra-Op Given 08/01/2020 9:29 AM CDT 500 mL lidocaine (XYLOCAINE) 30 mL, bupivacaine (MARCAINE) 30 mL solution As needed, Starting on Sat08/01/20 at 0942, Intra-Op Given 08/01/2020 9:42 AM CDT 10 mL sodium chloride 0.9 % irrigation As needed, Starting on Sat08/01/20 at 0930, Intra-Op Given 08/01/2020 9:30 AM CDT 1,000 mL sodium chloride 0.9% infusion 30 mL/hr, intravenous, Continuous, Starting on Sat08/01/20 at 0645, Pre-Op New Bag 08/01/2020 8:27 AM CDT sterile water irrigation As needed, Starting on Sat08/01/20 at 0930, Intra-Op Given 08/01/2020 9:30 AM CDT 1,000 mL documented in this encounter Discontinued Medications Medication Sig Discontinue Reason Start Date End Da te oxyCODONE (ROXICODONE) 5 mg immediate release tabletIndications:Pain Take 1 tablet (5 mg total) by mouth every 4 (four) hours as needed for pain for up to 20 doses Take 1 or 2 tablets every 4 hours as needed for pain Error 06/18/2020 06/27/2020 documented as of this encounter Active and Recently Administered Medications Times are shown in CDT. Scheduled Medication Order 07/30/2020 07/31/2020 08/01/2020 acetaminophen (TYLENOL) tablet 500 mg (COMPLETED) 500 mg, oral, Once, On Sat08/01/20 at 1315, For 1 dose, Phase I 1311 (Given - Provid er: Lorena Saba RN) ceFAZolin (ANCEF) 2,000 mg/20 mL in sterile water (premix) 2,000 mg (COMPLETED) 2,000 mg, intravenous, at 400 mL/hr, Administer over 3 Minutes, Once, On Sat08/01/20 at 0645, For 1 dose, Pre-Op, Administer within 60 minutes of incision., Indications: Prophylaxis, Surgical 0850 (Given - Provid er: Vanita Flores MD) Continuous Medication Order 07/30/2020 07/31/2020 08/01/2020 Lactated Ringer's (LR) infusion 30 mL/hr, intravenous, Continuous, Starting on Sat08/01/20 at 0645, Pre-Op 0645 (Due) sodium chloride 0.9% infusion 30 mL/hr, intravenous, Continuous, Starting on Sat08/01/20 at 0645, Pre-Op 0827 (New Bag - Prov ider: Vanita Flores MD)0953 (Stopped - Provider: Vanita Flores MD) PRN Medication Order 07/30/2020 07/31/2020 08/01/2020 diphenhydrAMINE (BENADRYL) injection 12.5 mg 12.5 mg, intravenous, Every 15 min PRN, itching, Starting on Sat08/01/20 at 1006, For 2 doses, Phase I, Max cumulative dose 50 mg., Indications: Itching fentaNYL (SUBLIMAZE) preservative free injection 50 mcg 50 mcg, intravenous, Once as needed, uncontrolled pain on PACU admission, Starting on Sat08/01/20 at 1006, For 1 dose, Phase I, Then proceed to PACU 1st line analgesic., Indications: Pain haloperidol (HALDOL) injection 1 mg 1 mg, intravenous, Administer over 5 Minutes, Every 6 hours PRN, nausea, vomiting, Starting on Sat08/01/20 at 1006, Phase I, If nausea/vomiting not relieved by prochlorperazine within 30 minutes. heparin in 0.9% sodium chloride 1,000 units/500 mL (2 unit/mL) infusion (premix) (CANCELED) As needed, Starting on Sat08/01/20 at 0929, Intra-Op 0929 (Given - Provid er: Chucho Aponte MD - Comment: vessel irrigation) HYDROmorphone (DILAUDID) injection 0.2 mg 0.2 mg, intravenous, Administer over 2 Minutes, Every 10 min PRN, 1st line for pain, Starting on Sat08/01/20 at 1006, Phase I, Switch to 2nd line analgesic order if pain is uncontrolled or increasing after 2 doses. Notify Anesthesiologist if total PACU dose reaches 2 mg and pain score 5/10 or more., Indications: Pain HYDROmorphone (DILAUDID) injection 0.4 mg 0.4 mg, intravenous, Administer over 2 Minutes, Every 10 min PRN, 2nd line for pain, Starting on Sat08/01/20 at 1006, Phase I, May administer 10 mintes after 2nd dose of 1st line analgesic agent for uncontrolled or increasing pain. Revert to 1st line dose if POSS of 3. Notify Anesthesiologist if total PACU dose reaches 2 mg and pain score 5/10 or more., Indications: Pain labetaloL (NORMODYNE,TRANDATE) injection 5 mg 5 mg, intravenous, at 30 mL/hr, Administer over 2 Minutes, Every 10 min PRN, high blood pressure, Starting on Sat08/01/20 at 1006, Phase I, Max cumulative dose 20 mg. Dose if systolic blood pressure greater than 180 AND HR greater than 70. lidocaine (XYLOCAINE) 30 mL, bupivacaine (MARCAINE) 30 mL solution (CANCELED) As needed, Starting on Sat08/01/20 at 0942, Intra-Op 0942 (Given - Provid er: Mohan Mcmullen MD) meperidine (DEMEROL) preservative free injection 12.5 mg 12.5 mg, intravenous, Every 10 min PRN, shivering, Starting on Sat08/01/20 at 1006, For 2 doses, Phase I, Max cumulative dose 25 mg., Indications: Shivering naloxone (NARCAN) 0.4 mg/mL injection 0.04-0.4 mg 0.04-0.4 mg, intravenous, Once as needed, other, excessive sedation/respiratory depression, Starting on Sat08/01/20 at 1006, For 1 dose, Phase I, Dilute 0.4 mg with 9 mL NS (final concentration 0.04 mg/mL). For respiratory depression (respiratory rate less than 6), administer 0.4 mg IVP over 30 seconds. For excessive sedation administer 0.04 mg (1 mL) every 1 minute until desired level of alertness. For IV, administer over 30 seconds., Indications: Opioid Toxicity prochlorperazine (COMPAZINE) injection 10 mg 10 mg, intravenous, Administer over 2 Minutes, Every 6 hours PRN, nausea, vomiting, Starting on Sat08/01/20 at 1006, Phase I, Proceed to haloperidol if no relief within 30 minutes. sodium chloride 0.9 % irrigation (CANCELED) As needed, Starting on Sat08/01/20 at 0930, Intra-Op 0930 (Given - Provid er: Chucho Aponte MD - Comment: Wound irrigatiion; total amount used unknown) sterile water irrigation (CANCELED) As needed, Starting on Sat08/01/20 at 0930, Intra-Op 0930 (Given - Provid er: Pastora Collazo RN - Comment: instrument rinse) documented in this encounter Orders Medications Ordered That Wolf ht Not Have Been Administered Count Last Ordered Date First Ordered Date ceFAZolin (ANCEF) 2,000 mg/2 0 mL in sterile water (premix) 2,000 mg 1 08/01/2020 diphenhydrAMINE (BENADRYL) i njection 12.5 mg 1 08/01/2020 fentaNYL (SUBLIMAZE) preserv ative free injection 50 mcg 1 08/01/2020 haloperidol (HALDOL) injection 1 mg 1 08/01 HYDROmorphone (DILAUDID) injection 0.2 mg 1 08/01/2020 HYDROmorphone (DILAUDID) injection 0.4 mg 1 08/01/2020 labetaloL (NORMODYNE,TRANDAT E) injection 5 mg 1 08/01/2020 Lactated Ringer's (LR) infusion 1 0 meperidine (DEMEROL) preserv ative free injection 12.5 mg 1 08/01/2020 naloxone (NARCAN) 0.4 mg/mL injection 0.04-0.4 mg 1 08/01/2020 prochlorperazine (COMPAZINE) injection 10 mg 1 08/01/2020 sodium chloride 0.9% flush 0.5-20 mL 3 02/2020 sodium chloride 0.9% infusion 1 08/01/2020 documented in this encounter Care Teams Storage Battery Charger Relationship Specialty Start Date End Date Gerardo Shah MD PCP - General Internal Medicine 09/30/18 Suzette Strickland MD [address] [facility] [address] [place] [address] Referring Physician Nephrology 02/15/20 Rita Tapia, RN [address] [place] [address] Registered Nurse Slab Stripper 02/15/20 documented as of this encounter
--- OUTSIDE RECORDS SUMMARY | 2024-10-16 06:40 | XMS_ITS | Encounter Summary ---
Author Organization [facility] Healthcare Address [address] [place] [address] Care Team Providers Care Highway Commissioner Name Role Phone Gerardo Shah MD Primary Care Provider [phone] Suzette Strickland MD Unavailable [phone] Rita Tapia RN Unavailable [phone] Encounter Details Date Type Department Care Team (Late st Contact Info) Description 06/29/2020 Documentation [facility] and [facility] Transplant Kidney [address] [facility] [address] [phone] [place], [place] [id number] Rita Tapia, RN [address] [facility], [place] [id number] Social History Tobacco Use Types Packs/Day Years Used Date Smoking Tobacco: Former Cigarettes 1.5 40 0 04/11/1978 - 2017 Smokeless Tobacco: Never Alcohol Use Standard Drinks/Week Comments Yes 2 (1 standard drink = 0.6 oz pur e alcohol) Sex and Gender Information Value Date Recorded Sex Assigned at Not on file 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 Saved to media. documented in this encounter Plan of Treatment Scheduled Procedures Name Priority Associated Diagnoses Date/Ti me TRANSPLANT KIDNEY ESRD (end stage renal disease) ([facility]) documented as of this encounter Visit Diagnoses Not on filedocumented in this encounter Care Teams Highway Commissioner Relationship Specialty Start Date End Date Gerardo Shah MD PCP - General Internal Medicine 09/30/18 Suzette Strickland MD [address] [facility] [address] [place] [address] Referring Physician Nephrology 02/15/20 Rita Tapia, RN [address] [place], [place] [id number] Registered Nurse Splitter Head 02/15/20 documented as of this encounter
--- OUTSIDE RECORDS SUMMARY | 2024-10-16 06:40 | XMS_ITS | Encounter Summary ---
Author Organization [facility] Address [address] [place] [address] Phone Care Team Providers Care Agent Name Role Phone Gerardo Shah MD Primary Care Provider [phone] Suzette Strickland MD Unavailable [phone] Rita Tapia RN Unavailable [phone] Encounter Details Date Type Department Care Team (Late st Contact Info) Description 07/27/2020 Telephone [facility] Urology [address] 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 Thank you * Telephone Encounter - Ilana Bingham - 08/01/2020 11:21 AM CDT Do you want MRI or CT, looks like he has elevated creatinine * Telephone Encounter - Marc Khan MD - 08/01/2020 10:50 AM CDT He does not need to see an oncologist. They would not recommend anything other than continued follow-up with imaging at this time. August is appropriate for his next imaging. Thank you * Telephone Encounter - Ilana Bingham - 07/27/2020 2:52 PM CDT Patient's called asking if he needs to see oncologist? Since this did fitter and turner to be cancer, does he need imaging/follow-up in August? If so what imaging do you want? documented in this encounter Plan of Treatment Scheduled Procedures Name Priority Associated Diagnoses Date/Ti me TRANSPLANT KIDNEY ESRD (end stage renal disease) (CMS/[facility]) documented as of this encounter Visit Diagnoses Not on filedocumented in this encounter Care Teams Agent Relationship Specialty Start Date End Date Gerardo Shah MD PCP - General Internal Medicine 09/30/18 Suzette Strickland MD [address] [facility] [address] [place] [address] Referring Physician Nephrology 02/15/20 Rita Tapia, RN [address] [place] [address] Registered Nurse Group Fitness Assistant Department Head 02/15/20 documented as of this encounter
--- OUTSIDE RECORDS SUMMARY | 2024-10-16 06:40 | XMS_ITS | Encounter Summary ---
Author Organization [facility] Healthcare Address [address] [place] [address] Care Team Providers Care Timber Framer Name Role Phone Gerardo Shah MD Primary Care Provider [phone] Suzette Strickland MD Unavailable [phone] Rita Tapia RN Unavailable [phone] Encounter Details Date Type Department Care Team (Late st Contact Info) Description 07/25/2020 Telephone [facility] and [facility] Transplant Kidney [address] [facility] [address] [phone] [place], [place] [phone] Rita Tapia, RN [address] [facility], [place] [id number] Social History Tobacco Use Types Packs/Day Years Used Date Smoking Tobacco: Former Cigarettes 1.5 40 0 04/11/1978 - 2017 Smokeless Tobacco: Never Alcohol Use Standard Drinks/Week Comments Yes 2 (1 standard drink = 0.6 oz pur e alcohol) Sex and Gender Information Value Date Recorded Sex Assigned at Not on file 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 Called Neftaly on home number and let him know that I got his ultrasound results back Saturday but it was too late for me to get him on the agenda for todays meeting and I would present him to the team next Saturday. He said he would pass thisinformation on to his . documented in this encounter Plan of Treatment Scheduled Procedures Name Priority Associated Diagnoses Date/Ti me TRANSPLANT KIDNEY ESRD (end stage renal disease) ([facility]) documented as of this encounter Visit Diagnoses Not on filedocumented in this encounter Care Teams Timber Framer Relationship Specialty Start Date End Date Gerardo Shah MD PCP - General Internal Medicine 09/30/18 Suzette Strickland MD [address] [facility] [address] [place] [address] Referring Physician Nephrology 02/15/20 Rita Tapia, RN [address] [place] [address] Registered Nurse Engraver Copperplate 02/15/20 documented as of this encounter
--- OUTSIDE RECORDS SUMMARY | 2024-10-16 06:40 | XMS_ITS | Encounter Summary ---
Author Organization [facility] Healthcare Address [address] [place] [address] Care Team Providers Care Country Manager Name Role Phone Gerardo Shah MD Primary Care Provider [phone] Suzette Strickland MD Unavailable [phone] Rita Tapia RN Unavailable [phone] Encounter Details Date Type Department Care Team (Late st Contact Info) Description 08/02/2020 Telephone [facility] Transplant Kidney [address] [facility] [address] Mail[address] [phone] [place] [address] Zhane Hatfield Social History Tobacco Use Types Packs/Day Years Used Date Smoking Tobacco: Former Cigarettes 1.5 40 0 04/11/1978 - 2017 Smokeless Tobacco: Never Alcohol Use Standard Drinks/Week Comments Yes 2 (1 standard drink = 0.6 oz pur e alcohol) Sex and Gender Information Value Date Recorded Sex Assigned at Not on file 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 Requested return call. documented in this encounter Plan of Treatment Scheduled Procedures Name Priority Associated Diagnoses Date/Ti me TRANSPLANT KIDNEY ESRD (end stage renal disease) ([facility]) documented as of this encounter Visit Diagnoses Not on filedocumented in this encounter Care Teams Country Manager Relationship Specialty Start Date End Date Gerardo Shah MD PCP - General Internal Medicine 09/30/18 Suzette Strickland MD [address] [facility] [address] [place] [address] Referring Physician Nephrology 02/15/20 Rita Tapia, RN [address] [place] [address] Registered Nurse Behavioral Modification Assistant 02/15/20 documented as of this encounter
--- OUTSIDE RECORDS SUMMARY | 2024-10-16 06:40 | XMS_ITS | Encounter Summary ---
Author Organization [facility] Healthcare Address [address] [place] [address] Care Team Providers Care Advertising Job Titles Name Role Phone Gerardo Shah MD Primary Care Provider [phone] Suzette Strickland MD Unavailable [phone] Rita Tapia RN Unavailable [phone] Encounter Details Date Type Department Care Team (Late st Contact Info) Description 07/25/2020 Telephone [facility] Transplant Kidney [address] [facility] [address] [phone] [place] [address] Brittany Markham Social History Tobacco Use Types Packs/Day Years Used Date Smoking Tobacco: Former Cigarettes 1.5 40 0 04/11/1978 - 2017 Smokeless Tobacco: Never Alcohol Use Standard Drinks/Week Comments Yes 2 (1 standard drink = 0.6 oz pur e alcohol) Sex and Gender Information Value Date Recorded Sex Assigned at Not on file 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 Gender Identity Not on file Sexual Orientation Straight 05/03/2020 10 :36 AM CDT documented as of this encounter Miscellaneous Notes * Telephone Encounter - Brittany Markham - 07/25/2020 9:57 AM CDT Patient's Blanquita called having questions regarding the next step documented in this encounter Plan of Treatment Scheduled Procedures Name Priority Associated Diagnoses Date/Ti me TRANSPLANT KIDNEY ESRD (end stage renal disease) ([facility]) documented as of this encounter Visit Diagnoses Not on filedocumented in this encounter Care Teams Advertising Job Titles Relationship Specialty Start Date End Date Gerardo Shah MD PCP - General Internal Medicine 09/30/18 Suzette Strickland MD [address] [facility] [address] [place] [address] Referring Physician Nephrology 02/15/20 Rita Tapia, RN [address] [place] [address] Registered Nurse Boarding House Cook 02/15/20 documented as of this encounter
--- OUTSIDE RECORDS SUMMARY | 2024-10-16 06:40 | XMS_ITS | Encounter Summary ---
Author Organization [facility] Healthcare Address [address] [place] [address] Care Team Providers Care Tax Manager Cpa Name Role Phone Gerardo Shah MD Primary Care Provider [phone] Suzette Strickland MD Unavailable [phone] Rita Tapia RN Unavailable [phone] Reason for Visit * Reason Onset Date Comments Return call 08/03/2020 Encounter Details Date Type Department Care Team (Late st Contact Info) Description 08/03/[address] 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 Please return call documented in this encounter Plan of Treatment Scheduled Procedures Name Priority Associated Diagnoses Date/Ti me TRANSPLANT KIDNEY ESRD (end stage renal disease) ([facility]) documented as of this encounter Visit Diagnoses Not on filedocumented in this encounter Care Teams Tax Manager Cpa Relationship Specialty Start Date End Date Gerardo Shah MD PCP - General Internal Medicine 09/30/18 Suzette Strickland MD [address] [facility] [address] [place] [address] Referring Physician Nephrology 02/15/20 Rita Tapia, RN [address] [place] [address] Registered Nurse Crew Leader/Control Room Operator 02/15/20 documented as of this encounter
--- OUTSIDE RECORDS SUMMARY | 2024-10-16 06:40 | XMS_ITS | Encounter Summary ---
Author Organization [facility] Healthcare Address [address] [place] [address] Care Team Providers Care Cutter Apprentice Hand Name Role Phone Gerardo Shah MD Primary Care Provider [phone] Suzette Strickland MD Unavailable [phone] Rita Tapia RN Unavailable [phone] Encounter Details Date Type Department Care Team (Late st Contact Info) Description 08/02/2020 Telephone [facility] Transplant Kidney [address] [facility] [address] [id number] [place], [place] [id number] Rita Tapia RN [address] [place], [place] [id number] Social History Tobacco Use Types Packs/Day Years Used Date Smoking Tobacco: Former Cigarettes 1.5 40 0 04/11/1978 - 2017 Smokeless Tobacco: Never Alcohol Use Standard Drinks/Week Comments Yes 2 (1 standard drink = 0.6 oz pur e alcohol) Sex and Gender Information Value Date Recorded Sex Assigned at Not on file 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 I called her and we reviewed the fact that [facility] has been approved for listing for kidney transplant. I answered all of her questions and she also informed me she had sent me some paperwork for [facility] for insurance and asked if I had received it. I told her that if she faxed it last week I hadnt received it yet but I would look for it tomorrow and if I dont get It I would call her tomorrow documented in this encounter Plan of Treatment Scheduled Procedures Name Priority Associated Diagnoses Date/Ti me TRANSPLANT KIDNEY ESRD (end stage renal disease) ([facility]) documented as of this encounter Visit Diagnoses Not on filedocumented in this encounter Care Teams Cutter Apprentice Hand Relationship Specialty Start Date End Date Gerardo Shah MD PCP - General Internal Medicine 09/30/18 Suzette Strickland MD [address] [facility] [address] [place] [address] Referring Physician Nephrology 02/15/20 Rita Tapia, RN [address] [place] [address] Registered Nurse Seo Specialist 02/15/20 documented as of this encounter
--- OUTSIDE RECORDS SUMMARY | 2024-10-16 06:40 | XMS_ITS | Encounter Summary ---
Author Organization [facility] Healthcare Address [address] [place] [address] Care Team Providers Care Cemetery Counselor Name Role Phone Gerardo Shah MD Primary Care Provider [phone] Suzette Strickland MD Unavailable [phone] Rita Tapia RN Unavailable [phone] Encounter Details Date Type Department Care Team (Late st Contact Info) Description 07/01/2020 Telephone [facility] Trans[facility] Kidney [address] 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 He said that was OK. Please mail him out a schedule for that day with the location of ultrasound at the [facility]. documented in this encounter Plan of Treatment Scheduled Procedures Name Priority Associated Diagnoses Date/Ti me TRANSPLANT KIDNEY ESRD (end stage renal disease) ([facility]) documented as of this encounter Visit Diagnoses Not on filedocumented in this encounter Care Teams Cemetery Counselor Relationship Specialty Start Date End Date Gerardo Shah MD PCP - General Internal Medicine 09/30/18 Suzette Strickland MD [address] [facility] [address] [place] [address] Referring Physician Nephrology 02/15/20 Rita Tapia, RN [address] [place] [address] Registered Nurse Asphalt Spreader Operator 02/15/20 documented as of this encounter
--- OUTSIDE RECORDS SUMMARY | 2024-10-16 06:40 | XMS_ITS | Encounter Summary ---
Author Organization [facility] Home Care Serv[facility] es Address [address] [place] [address] Phone Care Team Providers Care Marketing Support Coordinator Name Role Phone Gerardo Shah MD Primary Care Provider [phone] Suzette Strickland MD Unavailable [phone] Rita Tapia RN Unavailable [phone] Encounter Details Date Type Department Care Team (Late st Contact Info) Description 07/07/2020 Telephone [facility] [address] [place], [place] [id number] Tammie Hernandez RN Social History Tobacco Use Types Packs/Day Years Used Date Smoking Tobacco: Former Cigarettes 1.5 40 0 04/11/1978 - 2017 Smokeless Tobacco: Never Alcohol Use Standard Drinks/Week Comments Yes 2 (1 standard drink = 0.6 oz pur e alcohol) Sex and Gender Information Value Date Recorded Sex Assigned at Not on file 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 CM DID INFORM NP. [facility] # [phone] documented in this encounter Plan of Treatment Scheduled Procedures Name Priority Associated Diagnoses Date/Ti me TRANSPLANT KIDNEY ESRD (end stage renal disease) ([facility]) documented as of this encounter Visit Diagnoses Not on filedocumented in this encounter Care Teams Marketing Support Coordinator Relationship Specialty Start Date End Date Gerardo Shah MD PCP - General Internal Medicine 09/30/18 Suzette Strickland MD [address] [facility] [address] [place] [address] Referring Physician Nephrology 02/15/20 Rita Tapia, RN [address] [place], [place] [phone] Registered Nurse Gis Engineer 02/15/20 documented as of this encounter
--- OUTSIDE RECORDS SUMMARY | 2024-10-16 06:40 | XMS_ITS | Encounter Summary ---
Author Organization [facility] Healthcare Address [address] [place] [address] Care Team Providers Care Snow Groomer Name Role Phone Gerardo Shah MD Primary Care Provider [phone] Suzette Strickland MD Unavailable [phone] Rita Tapia RN Unavailable [phone] Reason for Visit * Diagnostic Imaging (Routine) - Closed Specialty Diagnoses / Procedures Referred By Contac t Referred To Contact Diagnoses ESRD (end stage renal disease) (CMS/HCC) (HCC) Procedures US Kidney Complete US Renal Doppler Alec Shell MD Phone: tel: fax: [address] [address] Referral ID Status Reason Start Date Expiration Date Visits Re quested Visits Authorized [id number] Closed 07/01/2020 07/31/2021 1 1 Encounter Details Date Type Department Care Team (Latest Contact Info) Description 07/22/2020 2:03 PM CDT - 07/22/2020 11:59 PM CDT Hospital Encounter [facility] [place] [address] Alec Shell MD [address] [place] [address] ESRD (end stage renal disease) ([facility] Discharge Disposition: Discharge to [...] on file Legal Sex Male 4:54 AM SCORER SINGLE Gender Identity Not on file Sexual Orientation [...] 10 g by mouth as needed 0 11/10/20 20 metoprolol (LOPRESSOR) 25 mg tablet TAKE [...] 09/28/20 20 documented as of this encounter Discharge Disposition Disposition Code Departure Means Destination Discharge to home or self care documented in this encounter Plan of Treatment Scheduled Procedures Name Priority Associated Diagnoses Date/Ti me TRANSPLANT KIDNEY ESRD (end stage renal disease) ([facility]) documented as of this encounter Procedures Procedure Name Priority Date/Time Associated Diagnosis Comments US KIDNEY COMPLETE Schedule Routine, Read Routine (OP Routine) 07/22/2020 3:08 PM CDT ESRD (end stage renal disease) ([facility]) documented in this encounter Results * US Kidney Complete (07/22/2020 3:08 PM CDT) Anatomical Region Laterality Modality Kidney N/A Ultrasound 07/22/2020 3:13 PM CDT Impressions 07/22/2020 3:13 PM CDT Innumerable cysts throughout the left kidney in keeping with polycystic kidney disease with multiple scattered calcifications. Electronically signed by: Clem Osborn M.D. Narrative 07/22/2020 3:13 PM CDT EXAMINATION: COMPLETE RENAL SONOGRAM HISTORY: ??60-year-old man with polycystic kidney disease status post right nephrectomy with evaluation prior to kidney transplant. COMPARISON: ??CT from 07/03/2020 FINDINGS: ?? Kidneys: The right kidney is surgically absent. ??There is minimal residual renal parenchyma on the left. ??The left kidney is significantly enlarged secondary to numerous cysts measuring up to 20.9 cm. ??There is no left hydronephrosis. ??There are innumerable simple, anechoic cysts throughout the left kidney. ??There are scattered calcifications throughout the left kidney. ?? Bladder: The urinary bladder is normal Procedure Note Clem Osborn MD - 07/22/2020 EXAMINATION: COMPLETE RENAL SONOGRAM HISTORY: 60-year-old man [...] kidney. Bladder: The urinary bladder is normal IMPRESSION: Innumerable cysts throughout the left kidney in keeping with polycystic kidney disease with multiple scattered calcifications. Electronically signed by: Clem Osborn M.D. Alec Shell MD [facility] [place] PROCEDURES Final Result documented in this encounter Visit Diagnoses Diagnosis ESRD (end stage renal disease) (CMS/HCC) (HCC) End stage renal disease documented in this encounter Care Teams Snow Groomer Relationship Specialty Start Date End Date Gerardo Shah MD PCP - General Internal Medicine 09/30/18 Suzette Strickland MD [address] [facility] [address] [place] [address] Referring Physician Nephrology 02/15/20 Rita Tapia, RN [address] [place] [address] Registered Nurse Content Specialist 02/15/20 documented as of this encounter
--- OUTSIDE RECORDS SUMMARY | 2024-10-16 06:40 | XMS_ITS | Encounter Summary ---
Author Organization [facility] Healthcare Address [address] [place] [address] Care Team Providers Care Forest Logistics Manager Name Role Phone Gerardo Shah MD Primary Care Provider [phone] Suzette Strickland MD Unavailable [phone] Rita Tapia RN Unavailable [phone] Encounter Details Date Type Department Care Team (Late st Contact Info) Description 07/29/2020 7:55 AM CDT [address] [address] Chucho Aponte MD [address] [facility] [id number] [place] [address] Pre-op testing Discharge Disposition: Discharge to home or self [...] on file Legal Sex Male 4:54 AM OUTSIDE DELIVERER Gender Identity Not on file Sexual Orientation Straight 05/03/2020 10 :36 AM CDT documented as of this encounter Discharge Disposition Disposition Code Departure Means Destination Discharge to home or self care documented in this encounter Plan of Treatment Scheduled Procedures Name Priority Associated Diagnoses Date/Ti me TRANSPLANT KIDNEY ESRD (end stage renal disease) ([facility]) documented as of this encounter Procedures Procedure Name Priority Date/Time Associated Diagnosis Comments COVID-19 CORONAVIRUS RNA Routine 07/29/2020 7:58 AM CDT Pre-op testing B ISO TITER BATTERY Routine 04/04/2020 9 :10 AM CDT documented in this encounter Results * COVID-19 Coronavirus RNA Nasopharyngeal (07/29/2020 7:58 AM CDT) COVID-19 RNA Not Detected [facility] (JT) Comment: Interpretive Data Testing performed at [facility] Molecular Infectious Disease [facility]. The 2018-Novel Coronavirus Assay (COVID-19) Real Time RT-PCR assay [...] last revised on 2020. Testing performed by: [facility], [address] [place] [address]., [id number] First COVID-19 test? No [facility] (JT) Comment:Testing performed by : [facility], [address] [place] [address]., [address] Employeed in healthcare? No [facility] (JT) Comment:Testing performed by : [address] [address] status? No CE [facility] (JT) Comment:Testing performed by : [address] [address] Group care resident? No [facility] (JT) Comment:Testing performed by : [address] [address] Hospitalized? Unknown [facility] (JT) Comment:Testing performed by : [address], [address] Is patient in ICU? Unknown UMANG [facility] (JT) Comment:Testing performed by : [facility], [address] [place]., [address] Symptomatic as defined by CDC? No UMANG [facility] (JT) Comment:Testing performed by : [facility], [address] [place]., [address] Nasopharyngeal 07/29/2020 7: 58 AM CDT 07/29/2020 2:23 PM CDT Narrative [facility] (PETACA) - 07/29/2020 8:21 PM CDT What is the reason for testing?->Screening prior to scheduled (>12 hr) surgery or procedure us Chucho Aponte MD LAB MICROBIOLOGY - GENERAL ORD ERABLES Edited Result - Final Performing Organization Address City/[facility]/ZIP Co de Phone Number UMANG [facility] (PETACA) [address] [facility] Department [place] [address] * B iso titer battery (04/04/2020 9:10 AM CDT) Iso A [facility] Iso A A[facility] titer: [address] [facility] Iso B AHG Iso B [facility] titer: [facility] Blood specimen (specimen) 04/04/2020 9:10 AM CDT 08/08/2020 9:25 AM CDT us Notinfile Unknown LAB BLOOD ORDERABLES Final Res ult [facility] Department [place] [address] documented in this encounter Visit Diagnoses Diagnosis Pre-op testing Unspecified pre-operative examination documented in this encounter Care Teams Forest Logistics Manager Relationship Specialty Start Date End Date Gerardo Shah MD PCP - General Internal Medicine 09/30/18 Suzette Strickland MD [address] [facility] [address] [place] [address] Referring Physician Nephrology 02/15/20 Rita Tapia, RN [address] [place] [address] Registered Nurse Passport Support Associate 02/15/20 documented as of this encounter
--- OUTSIDE RECORDS SUMMARY | 2024-10-16 06:40 | XMS_ITS | Encounter Summary ---
Author Organization [facility] Healthcare Address [address] [place] [address] Care Team Providers Care Batch Freezer Name Role Phone Gerardo Shah MD Primary Care Provider [phone] Suzette Strickland MD Unavailable [phone] Rita Tapia RN Unavailable [phone] Encounter Details Date Type Department Care Team (Latest Contact Info) Description 08/01/2020 5:58 AM CDT - 08/01/2020 1:21 PM CDT Hospital Encounter [facility] Operating Room [address] [place] [address] Chucho Aponte MD [address] [facility] [id number] [place] [address] Discharge Disposition: Discharge to home or self [...] on file 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 Gender Identity Not on file Sexual Orientation Straight 05/03/2020 10 :36 AM CDT documented as of this encounter Last Filed Vital Signs Vital Sign Reading Time Taken Comments Blood Pressure 120/73 08/01/2020 1:00 PM CDT Pulse 57 08/01/2020 1:00 PM CDT Temperature 36.2 ??C (97.2 ??F) 08/01/2020 10:05 AM C DT Respiratory Rate 19 08/01/2020 1:00 PM CDT Oxygen Saturation 99% 08/01/2020 1:00 PM CDT Inhaled Oxygen Concentration - - Weight 96.2 kg (212 lb) 06/27/2020 8:48 AM CDT Height 190.5 cm (6' 3 ) 06/27/2020 8:48 AM CDT Body Mass Index 26.5 06/27/2020 8:48 AM CDT documented in this encounter Discharge Diagnoses Diagnosis Hypertensive chronic kidney disease with stage 5 chronic kidney disease or end stage renal disease (HCC) - HYPERTENSIVE CHRONIC KIDNEY DISEASE WITH STAGE 5 CHRONIC KIDNEY DISEASE OR END STAGE RENAL DISEASE End stage renal disease (CMS/[facility]) (HCC) - END STAGE RENAL DISEASE End stage renal disease Old myocardial infarction - OLD MYOCARDIAL INFARCTION Hyperlipidemia, unspecified - HYPERLIPIDEMIA, UNSPECIFIED Chronic obstructive pulmonary disease, unspecified (HCC) - CHRONIC OBSTRUCTIVE PULMONARY DISEASE, UNSPECIFIED Gastro-esophageal reflux disease without esophagitis - GASTRO-ESOPHAGEAL REFLUX DISEASE WITHOUT ESOPHAGITIS Polycystic kidney, unspecified - POLYCYSTIC KIDNEY, UNSPECIFIED Unspecified osteoarthritis, unspecified site - UNSPECIFIED OSTEOARTHRITIS, UNSPECIFIED SITE Dependence on renal dialysis (CMS/[facility]) ([facility]) - DEPENDENCE ON RENAL DIALYSIS Renal dialysis status Other exterminator helper termite (current) drug therapy - OTHER NC MANAGER (CURRENT) DRUG THERAPY manager terminal (current) use of aspirin - NC MANAGER (CURRENT) USE OF ASPIRIN Acquired absence of kidney - ACQUIRED ABSENCE OF KIDNEY Personal history of nicotine dependence - PERSONAL HISTORY OF NICOTINE DEPENDENCE documented in this encounter Discharge Instructions * [...] Arteriovenous Fistula Creation for Hemodialysis (Discharge Care) (Taiwanese) * Skin Adhesive Care (Discharge Care) ([place]aiwanese) * [facility] PATHWAY TO EXCELLENT CARE AFTER SURGERY documented [...] with dinner 30 capsule 1 0 09/28/20 documented as of this encounter Ordered Prescriptions [...] old male with history of ckd 4-5, ME, htn, hld, copd/asthma, crcl around 20, and [...] as noted per hpi Vitals: Arrival Vitals [08/01/20619] Temp 36.4 ??C (97.5 ??F) Pulse 62 Resp 14 BP SpO2 100 % Temp src Heart Rate Source Patient Position BP Location FiO2 (%) Most Recent : Vitals: 08/01/20619 Pulse: 62 Resp: 14 Temp: 36.4 ??C [...] M.D. Principal Problem: End-stage renal disease (ESRD) ([facility]) Assessment /Plan No new Assessment & Plan notes have been filed under this hospital service since the last note was generated. Service: Vascular Surgery 60M crcl 20, yet to initiate hd. Right hand dominant. Plan for left arm access creation today in the OR Mohan Mcmullen MD Fellow, Vascular/Endovascular Surgery Pager: [phone] Cosigned by Chucho Aponte MD at 08/01/2020 [...] Aponte MD - 08/01/2020 8:57 AM CDT SWATCH CLERK Mohan Mcmullen MD ANESTHESIA: General PREOPERATIVE DIAGNOSIS [...] fistula as well as restored into the [place] arterial circulation. Adequate distal arterial perfusion to [...] Preoperative Assessment and Planning CPAP Clinic Location: [facility] The night before your surgery: * [...] Planning Perioperative Nursing Note Telephone Preoperative Evaluation ([facility]) - TELEPHONE ONLY, NO PHYSICAL EXAM Date: [...] (LDAs) Type of Wound (LDA): (denies) SCREENINGS Barone Fall Risk Score (Retired): 15 Luis Enrique index score: 100 Is someone currently physically or emotionally hurting you or your family?: Denies PATIENT CARE PLANNING Advance Directives (For Healthcare) Advance Directive: Patient does not have advance directive Communication/Consulting Technical Director Needs Communication Needs: Glasses Patient's Preferred Language: Taiwanese Does caregiver's language differ from patient's?: No Is an supplies packer needed? : No Assistive Devices/DME: Dentures upper, Eyeglasses Discharge Planning Type of Residence: Private residence Living Arrangements: Spouse/significant other Support Systems: Spouse/significant other Patient expects to be discharged to:: Private residence(Cyber Security Architect: sister) COVID Screening Covid-19 Screening In the [...] in a congregate living facility (ex. assisted living/senior care facility, assisted, senior care)?: No Have you previously tested positive for [...] 20 seconds. Use an alcohol- based hand take up operator that contains at least 60% alcohol if [...] insurance card, a photo ID (like a Cyber Security Architect's license) and a method of payment for [...] COVID TESTING PLAN COVID Test set up [facility] on 07/07/20. In-basket message sent to [employer]. Patient aware of plan. If you need to reschedule your COVID test to a different location or if your surgery gets rescheduled, you MUST call [phone] Saturday-Saturday 8am-4:30pm to get your COVID testing [...] 20 seconds. Use an alcohol- based hand take up operator that contains at least 60% alcohol if soap and water are not available. All visitors/patients are being asked to wear a clean mask when entering the hospital. COVID 19 Updates & Visitor Policy: Please access [email or web address] for the most updated information. Surgery Times: For patients having surgery @ [facility], [facility] or [facility], if your surgeon's office has not notified you of your surgery time by NOON THE BUSINESS DAY BEFORE your surgery, please call [phone] and ask for your surgeon'ceceliafiсергей Aponte. documented in this encounter Plan of Treatment Scheduled Procedures Name Priority Associated Diagnoses Date/Ti me TRANSPLANT KIDNEY ESRD (end stage renal disease) ([facility]) documented as of this encounter Procedures Procedure Name Priority Date/Time Associated Diagnosis Comments POC BLOOD GAS AND CHEMISTRIES, ARTERIAL Routine 08/01/2020 10:31 AM CDT POC BLOOD GAS AND CHEMISTRIES, VENOUS Routine 08/01/2020 10:29 AM CDT CREATION ARTERIOVENOUS FISTULA - ARM 08/01/2020 8:27 AM CDT End-stage renal disease (ESRD) (CMS/[facility]) Case Notes 07/08: date changed from 07/11 to 08/01 per Rona via in-basket. DRE06/23: date changed from 07/06 to 07/11 per Rona via in-basket. LINDA POC BLOOD GAS AND CHEMISTRIES, VENOUS Routine 08/01/2020 6:54 AM CDT documented in this encounter Results * POC Blood Gas and Chemistries, Arterial - (08/01/2020 10:31 AM CDT) K POC 4.7 3.3 - 4.9 mmol/L [facility] Comment: Interpretive Data Unable to assess hemolysis. ??Invitro hemolysis causes falsely elevated potassium. Current Interpretive Data was last revised on 2020. Blood specimen (specimen) 08/01/2020 10:31 AM CDT 08/01/2020 10:31 AM CDT Chucho Aponte MD LAB POCT ORDERABLES - DEVICE F inal Result [facility] Department [place] [address] * POC Blood Gas and Chemistries, Venous - (08/01/2020 10:29 AM CDT) Pathologist [facility] pH, Saad POC See Comment 7.32 - 7.43 [facility] Comment:Credited, interface order error pCO2, saad POC See Comment 40 - 50 [facility] Comment:Credited, interface order error pO2, saad POC See Comment [facility] Comment:Credited, interface order error Na, POC See Comment 135 - 145 [facility] Comment:Credited, interface order error Cl, POC See Comment 97 - 110 [facility] Comment:Credited, interface order error Ionized Ca, POC See Comment 4.50 - 5.10 [facility] Comment:Credited, interface order error Glucose, POC See Comment 70 - 199 [facility] Comment:Credited, interface order error Lactate, POC See Comment 0.7 - 2.2 [facility] Comment:Credited, interface order error O2Hb, Saad POC See Comment 90.0 - 95.0 [facility] Comment:Credited, interface order error COHb, Saad POC See Comment 0.0 - 2.9 [facility] Comment:Credited, interface order error MetHb, Saad POC See Comment 0.0 - 1.9 [facility] Comment:Credited, interface order error O2 Sat, Saad POC (Jennie) See Comment [facility] Comment:Credited, interface order error Base excess, POC See Comment [facility] Comment:Credited, interface order error HCO3, Saad POC See Comment 20 - 30 [facility] Comment:Credited, interface order error Hct, POC See Comment 41.4 - 51.6 [facility] Comment:Credited, interface order error Total Hb, POC See Comment 13.8 - 17.2 [facility] Comment:Credited, interface order error O2 Sat, Saad POC (Calc) See Comment [facility] Comment:Credited, interface order error Blood specimen (specimen) 08/01/2020 10:29 AM CDT 08/01/2020 10:29 AM CDT Chucho Aponte MD LAB POCT ORDERABLES - DEVICE E dited Result - Final [facility] Department [place] [address] * (ABNORMAL) POC Blood Gas and Chemistries, Venous - (08/01/2020 6:54 AM CDT) pH, Saad POC 7.29(L) 7.32 - 7.43 [facility] pCO2, saad POC 47 40 - 50 mmHg [facility] pO2, saad POC 47 mmHg [facility] Na, POC 142 135 - 145 mmol/L [facility] K POC 5.5(H) 3.3 - 4.9 mmol/L [facility] Comment: Interpretive Data Unable to assess hemolysis. ??Invitro hemolysis causes falsely elevated potassium. Current Interpretive Data was last revised on 2020. Cl, POC 111(H) 97 - 110 mmol/L [facility] Ionized Ca, POC 5.06 4.50 - 5.10 mg/dL [facility] Glucose, POC 88 70 - 199 mg/dL [facility] Lactate, POC 0.8 0.7 - 2.2 mmol/L [facility] O2 Sat, Saad POC (Jennie) 83 % [facility] Base excess, POC -4.2 mmol/L [facility] HCO3, Saad POC 23 20 - 30 mmol/L [facility] Hct, POC 30.0(L) 41.4 - 51.6 % [facility] Total Hb, POC 9.9(L) 13.8 - 17.2 g/dL [facility] O2 Sat, Saad POC (Calc) 77 % [facility] Blood specimen (specimen) 08/01/2020 6:54 AM CDT 08/01/2020 6:54 AM CDT us Chucho Aponte MD LAB POCT ORDERABLES - DEVICE F inal Result [facility] Department [place] [address] documented in this encounter Visit Diagnoses Diagnosis End-stage renal disease (ESRD) (CMS/HCC) (HCC)- Primary documented in this encounter Admitting Diagnoses Diagnosis End-stage renal disease (ESRD) (CMS/HCC) (HCC) documented in this encounter Administered Medications Inactive Administered Medications - up to 3 most recent administrations Medication Order MAR Action Action Date Dose Rate Site acetaminophen (TYLENOL) tablet 500 mg 500 mg, oral, Once, On Sat08/01/20 at 1315, For 1 dose, Phase I Given 08/01/2020 1:11 PM CDT 500 mg sodium chloride 0.9% infusion 30 mL/hr, intravenous, Continuous, Starting on Sat08/01/20 at 0645, Pre-Op New Bag 08/01/2020 8:27 AM CDT documented in this encounter Discontinued Medications Medication [...] infusion 30 mL/hr, intravenous, Continuous, Starting on 08/01/20 at 0645, Pre-Op 0827 (New Bag - [...] haloperidol (HALDOL) injection 1 mg 1 08/01 heparin in 0.9% sodium chlor ele 1,000 units/500 mL (2 unit/mL) infusion (premix) 1 08/01/2020 HYDROmorphone (DILAUDID) injection 0.2 mg 1 08/01/2020 HYDROmorphone (DILAUDID) injection 0.4 mg 1 08/01/2020 labetaloL (NORMODYNE,TRANDAT E) injection 5 mg 1 08/01/2020 Lactated Ringer's (LR) infusion 1 0 lidocaine (XYLOCAINE) 30 mL, bupivacaine (MARCAINE) 30 mL solution 1 08/01/2020 meperidine (DEMEROL) preserv ative free injection 12.5 mg 1 08/01/2020 naloxone (NARCAN) 0.4 mg/mL injection 0.04-0.4 mg 1 08/01/2020 prochlorperazine (COMPAZINE) injection 10 mg 1 08/01/2020 sodium chloride 0.9 % irrigation 1 08/01/20 20 sodium chloride 0.9% flush 0.5-20 mL 3 02/2020 sodium chloride 0.9% infusion 1 08/01/2020 sterile water irrigation 1 08/01/2020 documented in this encounter Care Teams Batch Freezer Relationship Specialty Start Date End Date Gerardo Shah MD PCP - General Internal Medicine 09/30/18 Suzette Strickland MD [address] [facility] [address] [place] [address] Referring Physician Nephrology 02/15/20 Rita Tapia, RN [address] [place] [address] Registered Nurse Teasel Setter 02/15/20 documented as of this encounter
--- OUTSIDE RECORDS SUMMARY | 2024-10-16 06:40 | XMS_ITS | Encounter Summary ---
Author Organization [facility] Healthcare Address [address] [place] [address] Care Team Providers Care Multi Site Leasing Consultant Name Role Phone Gerardo Shah MD Primary Care Provider [phone] Suzette Strickland MD Unavailable [phone] Rita Tapia RN Unavailable [phone] Encounter Details Date Type Department Care Team (Late st Contact Info) Description 08/03/2020 Telephone [facility] Transplant Kidney [address] [facility] [address] [id number] [place], [place] [id number] Rita Tapia RN [address] [place], [place] [id number] Social History Tobacco Use Types Packs/Day Years Used Date Smoking Tobacco: Former Cigarettes 1.5 40 0 04/11/1978 - 2017 Smokeless Tobacco: Never Alcohol Use Standard Drinks/Week Comments Yes 2 (1 standard drink = 0.6 oz pur e alcohol) Sex and Gender Information Value Date Recorded Sex Assigned at Not on file Legal Sex Male 4:54 AM PATIENT ACCESS DIRECTOR Gender Identity Not on file Sexual Orientation Straight 05/03/2020 10 :36 AM CDT documented as of this encounter Miscellaneous Notes * Telephone Encounter - Rita Tapia RN - 08/03/2020 11:24 AM CDT Returned call to patients and she informed me that the paperwork she asked me to fill out doesn't need to be complete but what Sanjay needs now is the letter saying Neftaly has been added to the waitlist for kidney transplant. I told her I would fax that to Sanjay today. documented in this encounter Plan of Treatment Scheduled Procedures Name Priority Associated Diagnoses Date/Ti me TRANSPLANT KIDNEY ESRD (end stage renal disease) ([facility]) documented as of this encounter Visit Diagnoses Not on filedocumented in this encounter Care Teams Multi Site Leasing Consultant Relationship Specialty Start Date End Date Gerardo Shah MD PCP - General Internal Medicine 09/30/18 Suzette Strickland MD [address] [facility] [address] [place] [address] Referring Physician Nephrology 02/15/20 Rita Tapia, RN [address] [place], [place] [id number] Registered Nurse Master Brewer 02/15/20 documented as of this encounter
--- OUTSIDE RECORDS SUMMARY | 2024-10-16 06:40 | XMS_ITS | Encounter Summary ---
Author Organization [facility] Healthcare Address [address] [place] [address] Care Team Providers Care Respiratory Therapy Instructor Name Role Phone Gerardo Shah MD Primary Care Provider [phone] Suzette Strickland MD Unavailable [phone] Rita Tapia RN Unavailable [phone] Encounter Details Date Type Department Care Team (Late st Contact Info) Description 06/28/2020 Documentation [facility] Transplant Kidney [address] [address] [address] [phone] [place] [address] Erica Rosales Social History Tobacco Use Types Packs/Day Years Used Date Smoking Tobacco: Former Cigarettes 1.5 40 0 04/11/1978 - 2017 Smokeless Tobacco: Never Alcohol Use Standard Drinks/Week Comments Yes 2 (1 standard drink = 0.6 oz pur e alcohol) Sex and Gender Information Value Date Recorded Sex Assigned at Not on file Legal Sex Male 4:54 AM 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 RESOURCE 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 Gender Identity Not on file Sexual Orientation Straight 05/03/2020 10 :36 AM CDT documented as of this encounter Progress Notes * Erica Rosales - 06/28/2020 11:53 AM CDT Mailed consents documented in this encounter Plan of Treatment Scheduled Procedures Name Priority Associated Diagnoses Date/Ti me TRANSPLANT KIDNEY ESRD (end stage renal disease) ([facility]) documented as of this encounter Visit Diagnoses Not on filedocumented in this encounter Care Teams Respiratory Therapy Instructor Relationship Specialty Start Date End Date Gerardo Shah MD PCP - General Internal Medicine 09/30/18 Suzette Strickland MD [address] [facility] [address] [place] [address] Referring Physician Nephrology 02/15/20 Rita Tapia, RN [address] [place] [address] Registered Nurse Metal Bed Assembler 02/15/20 documented as of this encounter
--- OUTSIDE RECORDS SUMMARY | 2024-10-16 06:40 | XMS_ITS | Encounter Summary ---
Author Organization [facility] Healthcare Address [address] [place] [address] Care Team Providers Care Kaitara Taraka Name Role Phone Gerardo Shah MD Primary Care Provider [phone] Suzette Strickland MD Unavailable [phone] Rita Tapia RN Unavailable [phone] Reason for Referral * Transplant (Routine) - Closed Specialty Diagnoses / Procedures Referred By Contac t Referred To Contact Transplant Diagnoses ESRD (end stage renal disease) (CMS/HCC) (HCC) Tatianna Moyer MD [address] [place] [address] Phone: tel: fax: Referral ID Status Reason Start Date Expiration Date V isits Requested Visits Authorized [id number] Closed Specialty Services Required 08/03/2020 09/02/2021 1 1 Reason for Visit * Reason Onset Date Comments Waitlist Maintenance 08/03/2020 LISTED/ ON HOLD Encounter Details Date Type Department Care Team (Late st Contact Info) Description 08/03/2020 Documentation [facility] Transplant Kidney [address] [facility] [phone] [place] [address] BrothErica jerry Waitlist Maintenance (LISTED/ ON HOLD) Social History Tobacco Use Types Packs/Day Years Used Date Smoking Tobacco: Former Cigarettes 1.5 40 0 04/11/1978 - 2017 Smokeless Tobacco: Never Alcohol Use Standard Drinks/Week Comments Yes 2 (1 standard drink = 0.6 oz pur e alcohol) Sex and Gender Information Value Date Recorded Sex Assigned at Not on file Legal Sex Male 4:54 AM MOTOR GENERATOR SET OPERATOR Gender Identity Not on file Sexual Orientation Straight 05/03/2020 10 :36 AM CDT documented as of this encounter Progress Notes * Erica Rosales - 08/03/2020 6:27 PM CDT Patient Listed (Kidney) DDT, UNOS, status ON Hold). Sent Listing Notification letter and UNOS information to Patient. Sent Listing Notification Octavio Nelda PCP, Set up S.O. for monthly cytoscreens via [employer] to (08/17/2020), Ordered (2) cytoscreens kits via [employer] (ORDER CONFIRMATION Order Number: [id number]). Case Request Sent documented in this encounter Plan of Treatment Scheduled Procedures Name Priority Associated Diagnoses Date/Ti me TRANSPLANT KIDNEY ESRD (end stage renal disease) ([facility]) Scheduled Referrals Name Type Priority Associated Diagnoses Orde r Schedule TXP referral to Finance for Kidney Listing Outpatient Referral Routine ESRD (end stage renal disease) ([facility]) Ordered: 08/03/2020 documented as of this encounter Results * Collection Task for HLA Antibody Screen (08/29/2022 10:00 AM CDT) HLA Antibody Screen by PRA Received [facility] Blood 08/29/2022 10:0 0 AM CDT 08/31/2022 3:46 PM CDT us Tatianna Moyer MD LAB BLOOD ORDERABL ES Final Result UMANG [facility] [place] [address] * Collection Task for HLA Antibody Screen (08/15/2022 10:00 AM CDT) HLA Antibody Screen by PRA Received [facility] Blood 08/15/2022 10:0 0 AM CDT 08/20/2022 3:38 PM CDT Tatianna Moyer MD LAB BLOOD ORDERABL ES Final Result Performing Organization Address City/[facility]/ZIP Co de Phone Number [facility] [place] [address] * Collection Task for HLA Antibody Screen (07/11/2022 10:00 AM CDT) HLA Antibody Screen by PRA Received [facility] Blood 07/11/2022 10:0 0 AM CDT 07/12/2022 2:34 PM CDT Tatianna Moyer MD LAB BLOOD ORDERABL ES Final Result Performing Organization Address City/[facility] Co de Phone Number [facility] [place] [address] * Collection Task for HLA Antibody Screen (06/06/2022 10:00 AM CDT) HLA Antibody Screen by PRA Received [facility] Blood 06/06/2022 10:0 0 AM CDT 06/07/2022 4:05 PM CDT Tatianna Moyer MD LAB BLOOD ORDERABL ES Final Result Performing Organization Address City/[facility] Co de Phone Number [facility] [place] [address] * Collection Task for HLA Antibody Screen (03/21/2022 10:20 AM CDT) HLA Antibody Screen by PRA Received [facility] Blood 03/21/2022 10:2 0 AM CDT 03/23/2022 3:46 PM CDT Tatianna Moyer MD LAB BLOOD ORDERABL ES Final Result Performing Organization Address City/[facility] Co de Phone Number [facility]ANG [facility] [place] [address] * HLA Antibody Screen by PRA or SAB per Schedule (Class I and Class II) (03/21/2022 10:20 AM CDT) Blood specimen (specimen) 03/21/2022 10:20 AM CDT Narrative HISTOTRAC - MOTOR GENERATOR SET OPERATOR Sample received in lab. ??Single Antigen Antibody Screen ordered. Tatianna Moyer MD LAB BLOOD ORDERABL ES Final Result Performing Organization Address [facility] de Phone Number H[facility] * HLA Antibody Screen by PRA or SAB per Schedule (Class I and Class II) (01/03/2022 10:00 AM MOTOR GENERATOR SET OPERATOR) Blood specimen (specimen) 01/03/2022 10:00 AM MOTOR GENERATOR SET OPERATOR Narrative HISTOTRAC - MOTOR GENERATOR SET OPERATOR Sample received in lab and stored. ??No testing performed at this time. Tatianna Moyer MD LAB BLOOD ORDERABL ES Final Result Performing Organization Address [facility] Co de Phone Number [facility] * HLA Antibody Screen by PRA or SAB per Schedule (Class I and Class II) (12/06/2021 9:30 AM MOTOR GENERATOR SET OPERATOR) Blood specimen (specimen) 12/06/2021 9:30 AM MOTOR GENERATOR SET OPERATOR Narrative HISTOTRAC - MOTOR GENERATOR SET OPERATOR Sample received in lab. ??Single Antigen Antibody Screen ordered. Tatianna Moyer MD LAB BLOOD ORDERABL ES Final Result Performing Organization Address City/[facility] Co de Phone Number [facility] * HLA Antibody Screen by PRA or SAB per Schedule (Class I and Class II) (11/06/2021 8:00 AM MOTOR GENERATOR SET OPERATOR) Blood specimen (specimen) 11/06/2021 8:00 AM MOTOR GENERATOR SET OPERATOR Narrative HISTOTRAC - MOTOR GENERATOR SET OPERATOR Sample received in lab. ??Single Antigen Antibody Screen ordered. Tatianna Moyer MD LAB BLOOD ORDERABL ES Final Result [facility] * Collection Task for HLA Antibody Screen (09/15/2021 11:00 AM MOTOR GENERATOR SET OPERATOR) HLA Antibody Screen by PRA Received [facility] Blood 09/15/2021 11:0 0 AM MOTOR GENERATOR SET OPERATOR 09/19/2021 12:15 PM MOTOR GENERATOR SET OPERATOR Tatianna Moyer MD LAB BLOOD ORDERABL ES Final Result Performing Organization Address [facility] Co de Phone Number [facility] [address] [facility] Department [place] [address] * HLA Antibody Screen by PRA or SAB per Schedule (Class I and Class II) (09/15/2021 11:00 AM MOTOR GENERATOR SET OPERATOR) Blood specimen (specimen) 09/15/2021 11:00 AM MOTOR GENERATOR SET OPERATOR Narrative HISTOTRAC - MOTOR GENERATOR SET OPERATOR Sample received in lab and stored. ??No testing performed at this time. Tatianna Moyer MD LAB BLOOD ORDERABL ES Final Result [facility] * Collection Task for HLA Antibody Screen (08/09/2021 10:00 AM CDT) HLA Antibody Screen by PRA Received [facility] Blood 08/09/2021 10:0 0 AM CDT 08/11/2021 3:49 PM CDT Tatianna Moyer MD LAB BLOOD ORDERABL ES Final Result Performing Organization Address [facility] Co de Phone Number [facility] [address] [facility] [place] [address] * HLA Antibody Screen by PRA or SAB per Schedule (Class I and Class II) (08/09/2021 10:00 AM CDT) Blood specimen (specimen) 08/09/2021 10:00 AM CDT Narrative HISTOTRAC - MOTOR GENERATOR SET OPERATOR Sample received in lab. ??Single Antigen Antibody Screen ordered. Tatianna Moyer MD LAB BLOOD ORDERABL ES Final Result Performing Organization Address [facility] de Phone Number [facility] * HLA Antibody Screen by PRA or SAB per Schedule (Class I and Class II) (07/12/2021 10:00 AM CDT) Blood specimen (specimen) 07/12/2021 10:00 AM CDT Narrative HISTOTRAC - MOTOR GENERATOR SET OPERATOR Sample received in lab and stored. ??No testing performed at this time. Tatianna Moyer MD LAB BLOOD ORDERABL ES Final Result Performing Organization Address [facility] Co de Phone Number [facility] * Collection Task for HLA Antibody Screen (06/14/2021 10:00 AM CDT) Pathologist [facility] HLA Antibody Screen by PRA Received [facility] Blood 06/14/2021 10:0 0 AM CDT 06/15/2021 12:11 PM CDT Tatianna Moyer MD LAB BLOOD ORDERABL ES Final Result Performing Organization Address [facility] Co de Phone Number [facility] [address] [facility] Department [place] [address] * HLA Antibody Screen by PRA or SAB per Schedule (Class I and Class II) (06/14/2021 10:00 AM CDT) Blood specimen (specimen) 06/14/2021 10:00 AM CDT Narrative HISTOTRAC - MOTOR GENERATOR SET OPERATOR Sample received in lab. ??Single Antigen Antibody Screen ordered. Tatianna Moyer MD LAB BLOOD ORDERABL ES Final Result Performing Organization Address City/[facility]/ZIP Co de Phone Number [facility] * HLA Antibody Screen by PRA or SAB per Schedule (Class I and Class II) (03/29/2021 10:00 AM CDT) Blood specimen (specimen) 03/29/2021 10:00 AM CDT Narrative HISTOTRAC - MOTOR GENERATOR SET OPERATOR Sample received in lab. ??Single Antigen Antibody Screen ordered. Tatianna Moyer MD LAB BLOOD ORDERABL ES Final Result Performing Organization Address [facility] Co de Phone Number [facility] * Collection Task for HLA Antibody Screen (03/03/2021 10:00 AM CDT) HLA Antibody Screen by PRA Received [facility] Blood specimen (specimen) 03/03/2021 10:00 AM CDT 03/07/2021 6:15 PM CDT Tatianna Moyer MD LAB BLOOD ORDERABL ES Final Result Performing Organization Address City/[facility] Co de Phone Number UMANG ASTORGA [facility] Department [place] [address] * HLA Antibody Screen by PRA or SAB per Schedule (Class I and Class II) (03/03/2021 10:00 AM CDT) Blood specimen (specimen) 03/03/2021 10:00 AM CDT Narrative HISTOTRAC - MOTOR GENERATOR SET OPERATOR Sample received in lab and stored. ??No testing performed at this time. Tatianna Moyer MD LAB BLOOD ORDERABL ES Final Result Performing Organization Address City/[facility] Co de Phone Number [facility] * Collection Task for HLA Antibody Screen (02/06/2021 10:00 AM CDT) HLA Antibody Screen by PRA Received [facility] Blood specimen (specimen) 02/06/2021 10:00 AM CDT 02/07/2021 4:11 PM CDT Tatianna Moyer MD LAB BLOOD ORDERABL ES Final Result Performing Organization Address [facility] de Phone Number [facility] Department [place] [address] * Collection Task for HLA Antibody Screen (08/10/2020 10:00 AM CDT) HLA Antibody Screen by PRA Received [facility] Blood specimen (specimen) 08/10/2020 10:00 AM CDT 08/11/2020 2:50 PM CDT Tatianna Moyer MD LAB BLOOD ORDERABL ES Final Result Performing Organization Address [facility] de Phone Number [facility] Department [place] [address] * HLA Antibody Screen by PRA or SAB per Schedule (Class I and Class II) (08/10/2020 10:00 AM CDT) Blood specimen (specimen) 08/10/2020 10:00 AM CDT Narrative HISTOTRAC - MOTOR GENERATOR SET OPERATOR Sample received in lab. ??Single Antigen Antibody Screen ordered. Tatianna Moyer MD LAB BLOOD ORDERABL ES Final Result Performing Organization Address [facility] de Phone Number [facility] documented in this [...] disease documented in this encounter Care Teams Kaitara Taraka Relationship Specialty Start Date End Date Gerardo Shah MD PCP - General Internal Medicine 09/30/18 Suzette Strickland MD [address] [facility] [address] [place] [address] Referring Physician Nephrology 02/15/20 Rita Tapia, RN [address] [place] [address] Registered Nurse Associate Broker 02/15/20 documented as of this encounter
--- OUTSIDE RECORDS SUMMARY | 2024-10-16 06:40 | XMS_ITS | Encounter Summary ---
Author Organization [facility] Address [address] [place] [address] Phone Care Team Providers Care Bottom Painter Name Role Phone Gerardo Shah MD Primary Care Provider [phone] Suzette Strickland MD Unavailable [phone] Rita Tapia RN Unavailable [phone] Reason for Visit * Reason Comments Wound Check polycystic kidney di sease-s/p 06/14/20 Robot-assisted laparoscopic total right nephrectomy * Consultation (Routine) - Canceled Specialty Diagnoses / Procedures Referred By Kishore t Referred To Contact Urology Diagnoses Polycystic kidney disease Gerardo Shah MD Phone: tel: fax: Referral ID Status Reason Start Date Expiration Date Visits Requested Visits Authorized [id number] Canceled Specialty Services Required 04/28/2020 11/07/2021 99 99 Encounter Details Date Type Department Care Team (Late st Contact Info) Description 07/20/2020 9:20 AM CDT Office Visit [facility] Urology [address] [facility] 11th [place] [address] [place] [id number] Marc Khan MD [address] [facility] [id number] [place] [address] Polycystic kidney disease, autosomal dominant (Primary Dx) Social History Tobacco Use Types Packs/Day Years Used Date Smoking Tobacco: Former Cigarettes 1.5 40 0 04/11/1978 - 2017 Smokeless Tobacco: Never Alcohol Use Standard Drinks/Week Comments Yes 2 (1 standard drink = 0.6 oz pur e alcohol) Sex and Gender Information Value Date Recorded Sex Assigned at Not on file Legal Sex Male 4:54 AM DETAILER Gender Identity Not on file Sexual Orientation Straight 05/03/2020 10 :36 AM CDT documented as of this encounter Progress Notes * Marc Khan MD - 07/20/2020 9:20 AM CDT Subjective/Objective Patient ID: Abel Finch is a 60 y.o. male. Chief Complaint No chief complaint on file. Here for wound check. Right nephrectomy 06/14/20. Complicated by wound infection. His pain is improving. The wound is healing. It is requiring less packing material. He is having an ultrasound of his left kidney soon. He is starting the evaluation for renal transplant. Review of Systems Constitutional: Negative for chills, [...] respiratory distress. Abdominal: Palpations: Abdomen is soft. Musculoskeletal: Normal range of motion. Skin: General: Skin is warm and dry. Neurological: Mental Status: He is alert and oriented to person, place, and time. SURGICAL PATHOLOGY REPORT FINAL Patient Name: ?? ABEL FINCH Gender: ??M : ??1960 (Age: 60) Address: ??[address] [place], [place] ??[address] [facility] #: ??[id number] Taken:06/14/2020 Received:06/14/2020 Reported: 06/17/2020 Patient Type: [facility] Inpatient ? Service: Surgery Location: [facility] [address] Physician(s): ??Marc Khan M.D. Gerardo Shah M.D. Reece Arredondo M.D. 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 No tumor cell necrosis identified ?? - ? No direct extrarenal extension identified - ? No lymphovascular space invasion identified ?? - ? Resection margin with no evidence of malignancy - ? Pathologic stage [id number] dfc/06/17/2020 17:01 By this signature, I attest that the above diagnosis is based upon my personal examination of the slides(and/or other material indicated in the diagnosis). Chantel Fong M.D., Ph.D. Report Electronically Reviewed and Signed Out By ??Chantel Fong M.D., Ph.D. 06/17/2020 17:01:48 Assessment/Plan Diagnoses and all orders for this visit: Polycystic kidney disease, autosomal dominant (Q61.2) (Primary) Comments: s/p 06/14/20 Robot-assisted laparoscopic total right nephrectomy Doing well following right nephrectomy for ADPKD. A small papillary RCC was discovered in the specimen. He also had a wound infection that is resolving. He is considering whether to have a left nephrectomy given the finding of cancer in the right kidney. We will talk again after he has the ultrasound. documented in this encounter Plan of Treatment Scheduled Procedures Name Priority Associated Diagnoses Date/Ti me TRANSPLANT KIDNEY ESRD (end stage renal disease) ([facility]) documented as of this encounter Procedures Procedure Name Priority Date/Time Associated Diagnosis Comments POCT URINALYSIS DIPSTICK Routine 07/20/2020 9:26 AM CDT Polycystic kidney disease, autosomal dominant documented in this encounter Results * POCT urinalysis dipstick (07/20/2020 9:26 AM CDT) Glucose, ur, POC Negative Negative mg/dL Ketones, ur, POC Negative Negative Blood, ur, POC Negative Negative pH, ur, POC 5.0 5.0 - 8.0 Protein, ur, POC Negative Negative Nitrite, ur, POC Negative Negative Leukocytes, ur, POC Negative Negative Lot Number x Urine 07/20/2020 9:26 AM CDT Marc Khan MD POINT OF CARE TEST ORDERA BLES Final Result documented in this encounter Visit Diagnoses Diagnosis Polycystic kidney disease, autosomal dominant- Primary Congenital polycystic kidney, autosomal dominant documented in this encounter Care Teams Bottom Painter Relationship Specialty Start Date End Date Gerardo Shah MD PCP - General Internal Medicine 09/30/18 Suzette Strickland MD [address] [facility] [address] [place] [address] Referring Physician Nephrology 02/15/20 Rita Tapia, RN [address] [place] [address] Registered Nurse Medical Lab Tech Instructor 02/15/20 documented as of this encounter
--- OUTSIDE RECORDS SUMMARY | 2024-10-16 06:40 | XMS_ITS | Encounter Summary ---
Author Organization [facility] Healthcare Address [address] [place] [address] Care Team Providers Care Raisin Separator Operator Name Role Phone Gerardo Shah MD Primary Care Provider [phone] Suzette Strickland MD Unavailable [phone] Rita Tapia RN Unavailable [phone] Encounter Details Date Type Department Care Team (Latest Contact Info) Description 07/03/2020 5:31 PM CDT - 07/03/2020 11:59 PM CDT Hospital Encounter [facility] [address] [place] [id number] Discharge Disposition: Discharge to home or [...] on file Legal Sex Male 4:54 AM [employer] TRA[employer] Gender Identity Not on file Sexual Orientation [...] 20 doses 20 tablet 0 09/06/20 20 HYDROcodone-aceta minophen (NORCO) 5-325 mg per tabletIndications :Pain Take 1 tablet by mouth every 6 (six) hours as needed (breakthrough pain) 20 tablet 0 07/07/20 20 lactulose solution 10 gram/15mLIndicati ons:constipation Take [...] tablets by mouth as needed 09/06/20 20 sulfamethoxazole- trimethoprim (BACTRIM DS) 800-160 mg per tablet Take 1 tablet by mouth 2 (two) times a day for 10 days 20 tablet 0 07/07/20 20 tamsulosin (FLOMAX) 0.4 mg extended release [...] TRANSPLANT KIDNEY ESRD (end stage renal disease) ([facility]) documented as of this encounter Procedures Procedure Name Priority Date/Time Associated Diagnosis Comments CT BODY OUTSIDE CONSULT Routine 07/03/2020 5:31 PM CDT Diagnosis unknown documented in this encounter Results * CT Body Outside Consult (07/03/2020 5:31 PM CDT) Anatomical Region Laterality Modality Body N/A Computed Tomogra phy 07/03/2020 10:4 0 PM CDT Impressions 07/03/2020 10:40 PM CDT 1. ??Fluid and gas collection centered in the right abdominal wall musculature with surrounding inflammatory fat stranding extending in the subcutaneous fat of the right flank. ??Evaluation is somewhat limited by absence of contrast material; however, presence of gas and overlying skin thickening with reported drainage on clinical exam favors infection (phlegmon versus abscess with overlying cellulitis) over postoperative seroma or hematoma. 2. ??Linear radiodensity within the above described fluid collection may represent radiopaque suture material related to the recent surgery versus foreign body. 3. ??Polycystic liver and kidney disease with interval right nephrectomy without residual nodule or mass in the nephrectomy bed. The findings, conclusions and recommendations within this report do not replace the initial findings, conclusions ??and recommendations made at the facility where the study was performed based upon the imaging and clinical condition at that time. ??Comparison with the prior report and clinical history is necessary. ??The provided images may or may not represent the [place] source data set and thus may contain changes that may lower the accuracy of this second-opinion interpretation. Electronically signed by: Reece Chacon 07/03/2020 10:40 PM CDT EXAMINATION: RADIOLOGY CONSULTATION ON OUTSIDE IMAGING STUDY STUDY INITIALLY PERFORMED: 07/03/2020 at [facility] TYPE OF STUDY: Multiple computed tomographic images of the abdomen and pelvis without intravenous contrast are provided at the time of this interpretation. CONTRAST ROUTE: No contrast was administered. The protocol was adequate to address the clinical question. The outside final report was available at the time of this second opinion interpretation. TYPE OF CONSULTATION: Consult on outside imaging study with images submitted through [facility] DATE OF CONSULTATION: 07/03/2020 10:23 PM HISTORY: Adult polycystic kidney disease status post right radical nephrectomy for management of papillary renal cell carcinoma. COMPARISON: 04/04/2020 FINDINGS: Limited images of the lower thorax demonstrate normal heart size without pericardial effusion. ??No focal pneumonic consolidation or pulmonary edema within the visualized lung bases. ??High attenuation nodule in the lingula at slice position -89.5 most likely represents calcified granuloma, sequela of old granulomatous disease. ??No pleural effusion or pneumothorax. There are multiple hypoattenuating cysts scattered throughout both lobes of the liver, similar in appearance to the prior examination and in keeping with polycystic liver disease. ??No new suspicious hepatic lesion. ??No intra or extrahepatic biliary ductal dilatation. Gallbladder is unremarkable. ??Spleen, pancreas, and left adrenal gland is normal. ??Right adrenal gland is present, normal in appearance. Postoperative changes of right nephrectomy without suspicious nodule or mass in the nephrectomy bed. ??Multiple unchanged cysts largely replacing the left renal parenchyma, in keeping with known polycystic kidney disease. ??Most of these cysts are simple fluid in attenuation, while others are hyperattenuating, likely representing rosaceous or hemorrhagic contents. ??No hydronephrosis. There is a 7.4 x 3.9 x 5.4 cm fluid and gas centered in the right abdominal musculature with surrounding inflammatory fat stranding extending into the subcutaneous fat of the right flank with overlying skin thickening. ??There is a linear radiodensity within this collection best visualized at slice position -322.0. Small and large bowel are normal in course and caliber without evidence of wall thickening or obstruction. ??The appendix is normal. There are scattered colonic diverticula without evidence of diverticulitis. ??There are multiple prominent but subcentimeter mesenteric lymph nodes that have slightly increased in prominence compared to the prior examination, but remain morphologically normal and not enlarged. ??No pathologically enlarged retroperitoneal or pelvic lymph nodes. Urinary bladder is partially decompressed. ??Prostate is unremarkable. Abdominal aorta is normal in course and caliber and contains minimal atherosclerotic calcification. ??Small fat-containing right inguinal hernia. No suspicious lytic or blastic osseous lesion. Procedure Note Rj Downs MD - 07/03/2020 EXAMINATION: RADIOLOGY CONSULTATION ON OUTSIDE IMAGING STUDY STUDY INITIALLY PERFORMED: 07/03/2020 at [facility] TYPE OF STUDY: Multiple computed tomographic images of the abdomen and pelvis without intravenous contrast are provided at the time of this interpretation. CONTRAST ROUTE: No contrast was administered. The protocol was adequate to address the clinical question. The outside final report was available at the time of this second opinion interpretation. TYPE OF CONSULTATION: Consult on outside imaging study with images submitted through [facility] DATE OF CONSULTATION: 07/03/2020 10:23 PM HISTORY: Adult polycystic kidney disease status post right radical nephrectomy for management of papillary renal cell carcinoma. COMPARISON: 04/04/2020 FINDINGS: Limited images of the lower thorax demonstrate normal heart size without pericardial effusion. No focal pneumonic consolidation or pulmonary edema within the visualized lung bases. High attenuation nodule in the lingula at slice position -89.5 most likely represents calcified granuloma, sequela of old granulomatous disease. No pleural effusion or pneumothorax. There are multiple hypoattenuating cysts scattered throughout both lobes of the liver, similar in appearance to the prior examination and in keeping with polycystic liver disease. No new suspicious hepatic lesion. No intra or extrahepatic biliary ductal dilatation. Gallbladder is unremarkable. Spleen, pancreas, and left adrenal gland is normal. Right adrenal gland is present, normal in appearance. Postoperative changes of right nephrectomy without suspicious nodule or mass in the nephrectomy bed. Multiple unchanged cysts largely replacing the left renal parenchyma, in keeping with known polycystic kidney disease. Most of these cysts are simple fluid in attenuation, while others are hyperattenuating, likely representing rosaceous or hemorrhagic contents. No hydronephrosis. There is a 7.4 x 3.9 x 5.4 cm fluid and gas centered in the right abdominal musculature with surrounding inflammatory fat stranding extending into the subcutaneous fat of the right flank with overlying skin thickening. There is a linear radiodensity within this collection best visualized at slice position -322.0. Small and large bowel are normal in course and caliber without evidence of wall thickening or obstruction. The appendix is normal. There are scattered colonic diverticula without evidence of diverticulitis. There are multiple prominent but subcentimeter mesenteric lymph nodes that have slightly increased in prominence compared to the prior examination, but remain morphologically normal and not enlarged. No pathologically enlarged retroperitoneal or pelvic lymph nodes. Urinary bladder is partially decompressed. Prostate is unremarkable. Abdominal aorta is normal in course and caliber and contains minimal atherosclerotic calcification. Small fat-containing right inguinal hernia. No suspicious lytic or blastic osseous lesion. IMPRESSION: 1. Fluid and gas collection centered in the right abdominal wall musculature with surrounding inflammatory fat stranding extending in the subcutaneous fat of the right flank. Evaluation is somewhat limited by absence of contrast material; however, presence of gas and overlying skin thickening with reported drainage on clinical exam favors infection (phlegmon versus abscess with overlying cellulitis) over postoperative seroma or hematoma. 2. Linear radiodensity within the above described fluid collection may represent radiopaque suture material related to the recent surgery versus foreign body. 3. Polycystic liver and kidney disease with interval right nephrectomy without residual nodule or mass in the nephrectomy bed. The findings, conclusions and recommendations within this report do not replace the initial findings, conclusions and recommendations made at the facility where the study was performed based upon the imaging and clinical condition at that time. Comparison with the prior report and clinical history is necessary. The provided images may or may not represent the [place] source data set and thus may contain changes that may lower the accuracy of this second-opinion interpretation. Electronically signed by: Rj Downs M.D. Alec Wang MD IMG CT PROCEDURES Frances l Result documented in this encounter Visit Diagnoses Not on filedocumented in this encounter Care Teams Raisin Separator Operator Relationship Specialty Start Date End Date Gerardo Shah MD PCP - General Internal Medicine 09/30/18 Suzette Strickland MD [address] [facility] [address] [place] [address] Referring Physician Nephrology 02/15/20 Rita Tapia, RN [address] [place] [address] Registered Nurse Ship Boss 02/15/20 documented as of this encounter
--- OUTSIDE RECORDS SUMMARY | 2024-10-16 06:40 | XMS_ITS | Encounter Summary ---
Author Organization [facility] Healthcare Address [address] [place] [address] Care Team Providers Care Pt Skilled Name Role Phone Gerardo Shah MD Primary Care Provider [phone] Suzette Strickland MD Unavailable [phone] Rita Tapia RN Unavailable [phone] Encounter Details Date Type Department Care Team (Late st Contact Info) Description 07/03/2020 2:51 PM CDT - 07/07/2020 12:44 PM CDT Hospital Encounter [facility] [address] [place] [address] Marc Khan MD [address] [facility] [id number] [facility] [place] [address] Surgical site infection (Primary Dx); Diagnosis unknown Discharge Disposition: Discharge to home, home health skilled care Social History Tobacco Use Types Packs/Day Years Used Date Smoking Tobacco: Former Cigarettes 1.5 40 0 04/11/1978 - 2017 Smokeless Tobacco: Never Alcohol Use Standard Drinks/Week Comments Yes 2 (1 standard drink = 0.6 oz pur e alcohol) Sex and Gender Information Value Date Recorded Sex Assigned at Not on file 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 Gender Identity Not on file Sexual Orientation Straight 05/03/2020 10 :36 AM CDT documented as of this encounter Last Filed Vital Signs Vital Sign Reading Time Taken Comments Blood Pressure 143/89 07/07/2020 11:06 AM CDT Pulse 66 07/07/2020 11:06 AM CDT Temperature 36.6 ??C (97.9 ??F) 07/07/2020 11:06 AM C DT Respiratory Rate 18 07/07/2020 11:06 AM CDT Oxygen Saturation 97% 07/07/2020 11:06 AM CDT Inhaled Oxygen Concentration - - Weight 96.2 kg (212 lb) 07/03/2020 3:01 PM CDT Height 190.5 cm (6' 3 ) 07/03/2020 3:01 PM CDT Body Mass Index 26.5 07/03/2020 3:01 PM CDT documented in this encounter Discharge Diagnoses Diagnosis Infection following a procedure, superficial incisional surgical site, initial encounter - INFECTION FOLLOWING A PROCEDURE, SUPERFICIAL INCISIONAL SURGICAL SITE, INITIAL ENCOUNTER Chronic kidney disease, stage 4 (severe) (HCC) - CHRONIC KIDNEY DISEASE, STAGE 4 (SEVERE) Polycystic kidney, adult type - POLYCYSTIC KIDNEY, ADULT TYPE Unspecified Escherichia coli (E. coli) as the cause of diseases classified elsewhere - UNSPECIFIED ESCHERICHIA COLI [E. COLI] THE CAUSE OF DISEASES CLASSIFIED ELSEWHERE Other surgical procedures as the cause of abnormal reaction of the patient, or of later complication, without mention of misadventure at the time of the procedure - OTHER SURGICAL PROCEDURES THE CAUSE OF ABNORMAL REACTION OF THE PATIENT, OR OF LATER COMPLICATION Unspecified place or not applicable - UNSPECIFIED PLACE OR NOT APPLICABLE Gastro-esophageal reflux disease without esophagitis - GASTRO-ESOPHAGEAL REFLUX DISEASE WITHOUT ESOPHAGITIS Diaphragmatic hernia without obstruction or gangrene - DIAPHRAGMATIC HERNIA WITHOUT OBSTRUCTION OR GANGRENE Diaphragmatic hernia without mention of obstruction or gangrene Unspecified osteoarthritis, unspecified site - UNSPECIFIED OSTEOARTHRITIS, UNSPECIFIED SITE Bradycardia, unspecified - BRADYCARDIA, UNSPECIFIED Anemia in other chronic diseases classified elsewhere - ANEMIA IN OTHER CHRONIC DISEASES CLASSIFIED ELSEWHERE (MANIFESTATION) Old myocardial infarction - OLD MYOCARDIAL INFARCTION Chronic obstructive pulmonary disease, unspecified (HCC) - CHRONIC OBSTRUCTIVE PULMONARY DISEASE, UNSPECIFIED Contact with and (suspected) exposure to other viral communicable diseases - CONTACT WITH AND (SUSPECTED) EXPOSURE TO OTHER VIRAL COMMUNICABLE DISEASES Acquired absence of kidney - ACQUIRED ABSENCE OF KIDNEY Personal history of pneumonia (recurrent) - PERSONAL HISTORY OF PNEUMONIA (RECURRENT) Personal history of nicotine dependence - PERSONAL HISTORY OF NICOTINE DEPENDENCE documented in this encounter Discharge Summaries * Miranda Mayer, PSYCHOLOGY FELLOW - 07/06/2020 7:47 AM CDT Inpatient Discharge Summary BRIEF OVERVIEW Admitting Provider: Marc Khan MD Discharge Provider: Marc Khan MD Primary Care Physician at Discharge: Gerardo Shah MD [phone] Admission Date: 07/03/2020 Discharge Date: 07/07/2020 Admission Location: [facility] Problems/Diagnoses: Active Problems: No Active Problems: There are no active problems currently on the Problem List. Please update the Problem List and refresh. Resolved Problems: No resolved hospital problems. DETAILS OF HOSPITAL STAY Presenting Problem/History of Present Illness: 60yoM with a PMH of ADPKD and CKD stage 4 who is s/p R radical nephrectomy on 06/14/2020, now and presents with surgical site infection. Patient was noted to have some erythema at his extraction incision prior to discharge from the hospital. He was sent out with 7 days of Keflex, which he completed. Despite the Keflex he had continueddrainage of serosanguinous fluid from his extraction site incision. On 07/02/2020 this drainage stopped and he began to note increased swelling at the incision site as well as pain at the incision. He presented to an OSH ED on 07/03/2020 with increased pain and swelling at the surgical site. OSH CT showed a large fluid collection. It was aspirated and 100 mls purulent fluid was removed, pt was transferred to [facility] for further care. Hospital Course: He was admitted to the urology floor on 07/03/2020, IV antibiotics initiated, wound culture sent to lab. IVF for hydration. Vital signs closely monitored. 07/04/2020 a bedside I&D was performed to facilitate better drainage. BID wound packing with wet to dry dressing. Continued IV antibiotics untilwound cultures resulted. Cultures showed e coli. Pt sent home on culture sensitive Cipro (renal dosed) for 10 days. Pt was deemed medically stable and was discharged home on 07/07/2020 Active Issues Requiring Follow-up: Continued would dressing changes Test Results Pending at Discharge: Operative Procedures Performed: none Other Procedures: Bedside I&D Pertinent Test Results: Wound culture with e-coli Discharge Details Physical Exam at Discharge: Discharge Condition: good Pulse: 66 Resp: 18 BP: 143/89 Temp: 36.6 ??C (97.9 ??F) Weight: 96.2 kg (212 lb) Pertinent Exam Findings at Discharge: Physical Exam Constitutional: oriented to person, place, and time and well-developed, well- nourished, and in no distress. Vital signs are normal. Eye: pupils equal. Cardiovascular: Normal rate and regular rhythm. Pulmonary/Chest: Effort normal. No accessory muscle usage. No respiratory distress. Abdominal: Soft. Incisional wound with wet to dry packing BID. There is mild tenderness. There is no CVA tenderness. : voiding Neurological: alert and oriented to person, place, and time. Skin: Warm and dry. Discharge Disposition: Discharge to home or self careHome with home health Code Status at Discharge: full code Discharge Instructions: See AVS Other Instructions Ambulatory referral to Home Health Service Line: Home Health Primary disciplines requested: Alf Home Health Services: Wound/ Ostomy Care Physician to follow patient's care (the person listed here will be responsible for signing ongoing orders): Other Comment: for orders fax Dr. Staples at [phone] Requested Start of Care Date: Tomorrow I attest that I or another qualified licensed provider saw the patient 90 days prior to or 30 days post admission and this face to face encounter meets the necessary Home Health requirements. The face to face encounter occurred on (date): 07/06/2020 The encounter with the patient was in whole, or in part, for the following medical condition, whichis the primary reason for home health care. (List medical condition): surgical wound infection I certify that, based on my findings, the following services are medically necessary skilled home health services: Wound/ Ostomy Care Clinical findings that support the need for home care: Wound requiring care, assessment, and instruction I certify that my clinical findings support patient's homebound status. Homebound criteria met because: Pain and impaired mobility post-op Poor endurance Discharge Medications: Current Medications TAKE these medications acetaminophen 500 mg capsule Take 1 capsule (500 mg total) by mouth every 6 (six) hours as needed for pain for up to 30 doses For: pain amLODIPine 5 mg tablet TAKE ONE TABLET BY MOUTH DAILY Commonly known as: NORVASC aspirin 81 mg enteric coated tablet Take 81 mg by mouth every morning For: myocardial reinfarction prevention bisacodyL 10 mg suppository Insert 0.5 suppositories (5 mg total) into the rectum daily as needed for constipation for up to 10 doses Commonly known as: DULCOLAX ciprofloxacin 500 mg tablet Take 1.5 tablets (750 mg total) by mouth daily Commonly known as: CIPRO cyanocobalamin 1,000 mcg tablet Take 1,000 mcg by mouth every morning For: prevention of vitamin B12 deficiency Commonly known as: Vitamin B-12 cyclobenzaprine 5 mg tablet Take 1 tablet (5 mg total) by mouth 3 (three) times a day as needed for muscle spasms for up to 20 doses Commonly known as: FLEXERIL lactulose 0.67 gram/mL solution Take 10 g by mouth as needed For: constipation metoprolol tartrate 25 mg immediate release tablet TAKE ONE TABLET BY MOUTH TWICE A DAY Commonly known as: LOPRESSOR nitroglycerin 0.4 mg SL tablet Commonly known as: NITROSTAT omeprazole 40 mg capsule Take 40 mg by mouth every morning For: Treatment of Non-Bleeding Gastric Disorder Commonly known as: PriLOSEC oxyCODONE 5 mg immediate release tablet Take 1 tablet (5 mg total) by mouth every 6 (six) hours as needed for pain For: pain Commonly known as: ROXICODONE polyethylene glycol 17 gram packet Take 1 packet (17 g total) by mouth daily For: constipation Commonly known as: MIRALAX Start taking on: July 08, 2020 SENNA ORAL Take 3 tablets by mouth as needed For: constipation tamsulosin 0.4 mg extended release capsule Take 1 capsule (0.4 mg total) by mouth daily with dinner Commonly known as: FLOMAX Outpatient Follow-Up: Future Appointments Date Time Provider Department Center 07/22/2020 2:[address] Main [facility] 09/06/2020 10:30 AM Donaldo Tee MD [facility] Cosigned by Marc Khan MD at 07/07/2020 11:28 AM CDT documented in this encounter Discharge Instructions * Discharge Instructions* Miranda Mayer NP - 07/06/2020 8:05 AM CDT Discharge Wound Care WHAT YOU NEED TO KNOW: An acute wound is an injury that causes a break in the skin. As your wound begins to heal, it is normal to have some swelling, pain, and redness. Your body's immune system is working to keep your wound from getting infected. Your wound may develop a scab. The scab protects your wound as it heals. DISCHARGE INSTRUCTIONS: Call 911 for the following: ?? You suddenly have trouble breathing or have chest pain. Seek care immediately if: ?? Blood soaks through your bandage. ?? You have pus or a foul odor coming from the wound. ?? Your stitches come apart or your wound reopens. Contact your healthcare provider if: ?? You continue to have pain even after you have taken pain medicine. ?? You have muscle, joint, or body aches, sweating, or a fever. ?? You have increased swelling, redness, or bleeding in your wound. ?? Your skin is itchy, swollen, or you have a rash. ?? You have questions or concerns about your condition or care. Medicines: You may need any of the following: ?? Antibiotics may be given to prevent or treat an infection. ?? Prescription pain medicine may be given. Ask your how to take this medicine safely. ?? NSAIDs help decrease swelling and pain or fever. This medicine is available with or without a doctor's order. NSAIDs can cause stomach bleeding or kidney problems in certain people. If you take blood thinner medicine, always ask your healthcare provider if NSAIDs are safe for you. Always read the medicine label and follow directions. ?? Take your medicine as directed. Contact your healthcare provider if you think your medicine is not helping or if you have side effects. Tell him or her if you are allergic to any medicine. Keep a list of the medicines, vitamins, and herbs you take. Include the amounts, and when and why you take them. Bring the list or the pill bottles to follow-up visits. Carry your medicine list with you in case of an emergency. Care for your wound as directed: Acute wounds can be in different locations and caused by differentinjuries. Follow your healthcare provider's instructions on caring for your type of wound. The following care items are for your wound: *Change dressing twice daily. *Dampen gauze with normal saline, pack gently into the wound. Cover with dry gauze and ABD pad. ?? Keep your wound covered with a clean and dry bandage. Change your bandage if it becomes wet or dirty. This will decrease the risk for infection in your wound. Follow your healthcare provider's instructions for changing your dressing. ?? Do not soak in a tub or swim until your healthcare provider says it is okay. Your wound may openif you get it too wet. Dirt from the water can also get into your wound and cause an infection. ?? Keep pets away from your wound. Pets carry germs that can cause a wound infection. ?? Do not pick or scratch scabs. Let scabs fall off on their own. You may damage new skin that is forming under the scab. You may have a worse scar after the damage. ?? Eat healthy foods and drink liquids as directed. Healthy foods give your body the nutrients it needs to heal your wound. Liquids prevent dehydration that can decrease the blood supply to your wound. Healthy foods include fruits, vegetables, grains (breads and cereals), dairy, and protein foods. Protein foods include meat, fish, nuts, and soy products. Protein, calories, vitamin C, and zinc help wounds heal. Ask your healthcare provider for more information about the foods you should eat to improve healing. Follow up with your healthcare provider as directed: Write down your questions so you remember to ask them during your visits. Follow up with Dr. Khan in 1-2 weeks. The office will call you to schedule your appointment. If you do not hear from them in 2-3 business days please call [phone]. You may also call this number with any questions or concerns. Special Instructions: Smoking increases wound healing time. Please refrain, or at least, reduce smoking for 4 weeks. If you would like a prescription for a nicotine patch, please contact your care provider who will be happy to help. ADDITIONAL INSTRUCTIONS: Pain Control You should expect to have some pain after your procedure. This is a normal part of the recovery process. The pain is more tolerable for some patients and less tolerable for others. When you are in pain: - Start by applying ice packs or heating pads and using over the counter medications such as acetaminophen (Tylenol) or ibuprofen (Advil or Motrin) unless otherwise specified by your doctor. - If your pain is still uncontrolled, you may take a stronger, prescription medication that contains opioids. Take only as much of this medication as you need. - As you recover, your pain will decrease and you will need less pain medication. You should only take pain medication if you are in pain. - If you are no longer taking any of your opioid medication and have leftover pills, dispose of them by placing them in a plastic bag, adding dish soap, and throwing them in the trash. FOLLOW UP: Dr. Marc Khan MD would like to see you in 1-2 weeks for wound check. Please call with any questions or concerns. Active issues requiring follow up: none Test results pending at discharge: none * Discharge Instr - Other Orders* Yenifer Calderón RN - 07/07/2020 11:41 AM CDT [facility] documented in this encounter Medications at Time [...] Refills Last Filled Start Date End Date ciprofloxacin (CIPRO) 500 mg tablet Take 1.5 tablets (750 mg total) by mouth daily 10 tablet 07/07/2020 0 sulfamethoxazole-t rimethoprim (BACTRIM DS) 800-160 mg per tablet Take 1 tablet by mouth 2 (two) times a day for 10 days 20 tablet 07/07/2020 0 polyethylene glycol (MIRALAX) 17 gram packetIndications: constipation Take 1 packet (17 g total) by mouth daily 30 packet 07/08/2020 0 oxyCODONE (ROXICODONE) 5 mg immediate release tabletIndications: Pain Take 1 tablet (5 mg total) by mouth every 6 (six) hours as needed for pain 10 tablet 07/06/2020 0 documented in this encounter Discharge Disposition Disposition Code Departure Means Destination Discharge to home, home health skilled care documented in this encounter Progress Notes * Yenifer Calderón RN - 07/07/2020 11:42 AM CDT 07/05/20 0624 Discharge Summary Chart reviewed For Medical Necessity Does patient have a planned readmission to hospital planned? No Equipment/Provider Needs Home Provider Services Needs Identified Home Care Agency Information Home Care Agency Type #1: Alf Home Care Agency Name [facility] Home Care Agency Contact Spoken to Andra Discharge Additional Assistance Does the patient need discharge transport arranged? No Post Discharge Care Provider Post Discharge Care Plan DC Summary has been faxed to next level of care provider (see Follow Up Providers) Patient to discharge to home with to provide transportation.[facility] to follow for correction for wound care. * Yenifer Calderón RN - 07/07/2020 9:49 AM CDT 07/07/20 0949 Communications Important Message from Medicare notice given to patient? Yes IM reviewed remotely, signed and to be faxed to medical records. * King Dumont MD - 07/06/2020 11:43 AM CDT [facility] Daily Progress Note Urological Surgery PATIENT NAME: Abel Browne : 1960 ADMIT DATE: 07/03/2020 2:51 PM LOS: 3 Problem List Items Addressed This Visit None Visit Diagnoses Surgical site infection - Primary Relevant Medications cefTRIAXone (ROCEPHIN) 2,000 mg/20 mL in sterile water (premix) 2,000 mg Other Relevant Orders Ambulatory referral to Home Health Diagnosis unknown Relevant Orders CT Body Outside Consult (Completed) Subjective INTERVAL HISTORY: FELIBERTO ON/VSS Dressing changed over night Pain control adequate Tolerating diet +amb -n/-v No bowel movements CXs: ngtd Wbc 7.6 -> 6.7 Cr 4.61 -> 4.70 Hb 10.1->9.4 1.4 uop Objective MEDICATIONS: Scheduled: amLODIPine, 5 mg, oral, Daily aspirin, 81 mg, oral, QAM bisacodyL, 5 mg, rectal, Daily cefTRIAXone, 2,000 mg, intravenous, Q24H KITA heparin, 5,000 Units, subcutaneous, Q8H KITA lactulose, 10 g, oral, BID metoprolol tartrate, 25 mg, oral, BID pantoprazole DR, 40 mg, oral, Daily senna, 2 tablet, oral, BID sodium chloride 0.9%, 0.5-20 mL, intra-catheter, Q8H KITA tamsulosin, 0.4 mg, oral, Daily with dinner Infusions: PRN: ??? acetaminophen ??? cyclobenzaprine ??? ondansetron ODT OR ondansetron ??? oxyCODONE ??? sodium chloride 0.9% VITALS: 24hr Min/Max: Temp Min: 36.3 ??C (97.3 ??F) Max: 36.9 ??C (98.4 ??F) Pulse Min: 58 Max: 77 BP Min: 123/78 Max: 145/80 Resp Min: 16 Max: 18 SpO2 Min: 91 % Max: 99 % Most Recent: Vitals: 07/05/20 2035 07/06/20 0020 07/06/20 0550 07/06/20 0815 BP: 127/73 123/78 145/80 132/77 BP Location: Right arm Right arm Right arm Right arm Patient Position: Lying Lying Lying Lying Pulse: 67 63 58 77 Resp: 16 18 18 16 Temp: 36.6 ??C (97.9 ??F) 36.9 ??C (98.4 ??F) 36.7 ??C (98.1 ??F) 36.4 ??C (97.5 ??F) TempSrc: Oral Oral Oral Oral SpO2: 99% 91% 97% 97% Weight: Height: I/O last 2 completed shifts: In: - Out: 1452 [Urine:1452] Intake/Output Summary (Last 24 hours) at 07/06/2020 1143 Last data filed at 07/06/2020 0815 Gross per 24 hour Intake -- Output 1352 ml Net -1352 ml PHYSICAL EXAM: Constitutional: Appears well-developed and well-nourished. No distress. Cardiovascular: Normal rate, regular rhythm and intact distal pulses. Pulmonary/Chest: Effort normal and breath sounds normal. No respiratory distress. No wheezes nor rales Abdominal: Soft. Bowel sounds are normal. No distension and no mass. There is mild tenderness on palpation of extraction site incision in RLQ with associated erythema and edema, no fluctuance noted, wound packed with krillex with taped abd pad Musculoskeletal: No edema or deformity. Lymphadenopathy: No cervical adenopathy. Neurological: Alert and oriented to person, place, and time. Skin: Skin is warm and dry. Psychiatric: Normal mood and affect. ?? LAB/ RADIOLOGY/ DIAGNOSTIC REVIEW: Recent Labs Lab Units 07/05/20223207/05/20 0037 07/03/20 1626 SODIUM mmol/L 141 139 140 POTASSIUM PLASMA mmol/L 5.0* See Comment 4.8 CO2 mmol/L 23 22 24 BUN SERUM mg/dL 54* 55* 60* GLUCOSE mg/dL 89 99 89 CREATININE mg/dL 4.70* 4.61* 5.13* CALCIUM mg/dL 8.9 8.7 8.9 CHLORIDE mmol/L 108 110 107 ANIONGAP mmol/L 10 7 9 Recent Labs Lab Units 07/05/20223207/05/20 0322 07/03/20 1626 WBC K/cumm 6.7 7.6 8.7 HEMOGLOBIN g/dL 9.4* 10.1* 10.3* HEMATOCRIT % 29.5* 32.3* 33.0* MCV fL 98.3* 99.1* 97.9* PLATELETS K/cumm 413* 442* 455* NEUTROS ABS K/cumm -- 4.2 -- I have reviewed the laboratory results. 60yoM with a PMH of ADPKD and CKD stage 4 who is POD# 19 from R radical nephrectomy and presents with surgical site infection. ?? - continue empiric IV CTX - f/u wound culture for gram stain and culture: ecoli, awaiting sensitivities - continue BID dressing changes - obtain labs - home health for wound packing and dressing changes??ordered Dispo: pending sensitivities of cxs and transition to PO abx Pain: PRN oxy and sched Tylenol Diet: low K diet DVT PPX: SQH, SCDs LTDs: 1 PIV, no dang Code: Full King Dumont MD, [facility] [employer] Urology, PGY1 Cosigned by Marc Khan MD at 07/06/2020 12:23 PM CDT * King Dumont MD - 07/05/2020 6:49 AM CDT [facility] Daily Progress Note Urological Surgery PATIENT NAME: Abel Browne : 1960 ADMIT DATE: 07/03/2020 2:51 PM LOS: 2 Problem List Items Addressed This Visit None Visit Diagnoses Diagnosis unknown Relevant Orders CT Body Outside Consult (Completed) Subjective INTERVAL HISTORY: FELIBERTO ON/VSS Dressing changed over night Pain control adequate Tolerating diet +amb -n/-v CXs: ngtd Wbc 8.7 ->7.6 Cr 5.1 -> 4.61 2.3 uop Objective MEDICATIONS: Scheduled: amLODIPine, 5 mg, oral, Daily aspirin, 81 mg, oral, QAM cefTRIAXone, 2,000 mg, intravenous, Q24H KITA heparin, 5,000 Units, subcutaneous, Q8H KITA lidocaine, 10 mL, subcutaneous, Once metoprolol tartrate, 25 mg, oral, BID pantoprazole DR, 40 mg, oral, Daily sodium chloride 0.9%, 0.5-20 mL, intra-catheter, Q8H KITA tamsulosin, 0.4 mg, oral, Daily with dinner Infusions: sodium chloride 0.9%, 75 mL/hr, Last Rate: 75 mL/hr (07/05/20 0533) PRN: ??? acetaminophen ??? cyclobenzaprine ??? ondansetron ODT OR ondansetron ??? oxyCODONE ??? sodium chloride 0.9% VITALS: 24hr Min/Max: Temp Min: 36.3 ??C (97.3 ??F) Max: 36.7 ??C (98.1 ??F) Pulse Min: 61 Max: 82 BP Min: 129/81 Max: 144/73 Resp Min: 16 Max: 18 SpO2 Min: 93 % Max: 100 % Most Recent: Vitals: 07/04/20 1635 07/04/20200907/05/20 0030 07/05/20 0535 BP: 144/73 134/79 132/85 129/81 BP Location: Right arm Patient Position: Lying Pulse: 81 70 65 67 Resp: 18 16 18 16 Temp: 36.5 ??C (97.7 ??F) 36.7 ??C (98.1 ??F) 36.6 ??C (97.9 ??F) 36.6 ??C (97.9 ??F) TempSrc: Oral SpO2: 93% 96% 98% 97% Weight: Height: I/O last 2 completed shifts: In: 2868 [P.O.:1270; I.V.:1578; IV Piggyback:20] Out: 2275 [Urine:2275] Intake/Output Summary (Last 24 hours) at 07/05/2020 0649 Last data filed at 07/05/2020 0635 Gross per 24 hour Intake 1187 ml Output 2350 ml Net -1163 ml PHYSICAL EXAM: Constitutional: Appears well-developed and well-nourished. No distress. Cardiovascular: Normal rate, regular rhythm and intact distal pulses. Pulmonary/Chest: Effort normal and breath sounds normal. No respiratory distress. No wheezes nor rales Abdominal: Soft. Bowel sounds are normal. No distension and no mass. There is mild tenderness on palpation of extraction site incision in RLQ with associated erythema and edema, no fluctuance noted, wound packed with krillex Musculoskeletal: No edema or deformity. Lymphadenopathy: No cervical adenopathy. Neurological: Alert and oriented to person, place, and time. Skin: Skin is warm and dry. Psychiatric: Normal mood and affect. ?? LAB/ RADIOLOGY/ DIAGNOSTIC REVIEW: Recent Labs Lab Units 07/05/20 0037 07/03/20 1626 SODIUM mmol/L 139 140 POTASSIUM PLASMA mmol/L See Comment 4.8 CO2 mmol/L 22 24 BUN SERUM mg/dL 55* 60* GLUCOSE mg/dL 99 89 CREATININE mg/dL 4.61* 5.13* CALCIUM mg/dL 8.7 8.9 CHLORIDE mmol/L 110 107 ANIONGAP mmol/L 7 9 Recent Labs Lab Units 07/05/20 0322 07/03/20 1626 WBC K/cumm 7.6 8.7 HEMOGLOBIN g/dL 10.1* 10.3* HEMATOCRIT % 32.3* 33.0* MCV fL 99.1* 97.9* PLATELETS K/cumm 442* 455* NEUTROS ABS K/cumm 4.2 -- I have reviewed the laboratory results. 60yoM with a PMH of ADPKD and CKD stage 4 who is POD# 19 from R radical nephrectomy and presents with surgical site infection. ?? - continue empiric IV CTX - f/u wound culture for gram stain and culture - f/u OSH ER cultures - continue BID dressing changes, will extend incision today - obtain AM labs - home health for wound packing and dressing changes?? Dispo: pending resolution of SSI Pain: PRN oxy and sched Tylenol Diet: low K diet DVT PPX: SQH, SCDs LTDs: 1 PIV, no dang Code: Full King Dumont MD, [employer] Urology, PGY1 Cosigned by Marc Khan MD at 07/05/2020 7:10 AM CDT * Yenifer Calderón, LEYDI - 07/05/2020 6:25 AM CDT 07/05/20 06 Information Information Obtained From Other (Specify) Name chart review Referral Data Referral Source Pet Ambassador Referral Reason Discharge Planning Prior to Admission Primary Caregiver Self Support System Spouse/Significant Other Support system contact info (name, phone, availablity) [facility] Home Care Services No Durable Medical Equipment None Living Arrangements Spouse/significant other Type of Residence Private residence Number of steps inside: 14 steps Number of steps outside: 1 steps Financial Resource Payor Source Commercial Potential Discharge Needs Anticipated discharge level of care Private residence Pt/Family agrees with Anticipated Level of Care Yes Patient expects to be discharged to: Private residence Dialysis No Behavioral Health Services No Impression: HPI: Mr. Browne is a 60yoM with a PMH of ADPKD and CKD stage 4 who is POD# 19 from R radical nephrectomy and presents with surgical site infection. Additional Information/Options Discussed: Patient chart reviewed from admission 2 weeks ago for initial assessment. Address and phone verified to face sheet. HHC: [facility] for wound care Transportation: Blanquita jane Problem: ensure safe discharge when medically stable Plan/Goal Includes: CM to follow for needs Insurance verified as: [facility] Admit Source: non health care facility PCP: verified as Gerardo Shah MD Pharmacy: Prescription coverage verified Based on a comprehensive family assessment, assistance with instrumental activities of daily livingafter discharge will be provided by patient. Through the course of our work I determined that patiet possesses the skill and ability to provide and monitor the care of the patient when he or she returns home. Patient has the capacity to provide/monitor/arrange for the care of the patient. Finally, we determined that patient has the knowledge of available resources and that combining them with their existing resources will suffice to sustainand care for the patient when he or she returns home. The treatment team is aware of this information. All are in agreement with the aftercare plan. * Dumont, King Larson MD - 07/04/2020 7:15 AM CDT [facility] Daily Progress Note Urological Surgery PATIENT NAME: Abel Browne : 1960 ADMIT DATE: 07/03/2020 2:51 PM LOS: 1 Problem List Items Addressed This Visit None Visit Diagnoses Diagnosis unknown Relevant Orders CT Body Outside Consult (Completed) Subjective INTERVAL HISTORY: FELIBERTO ON/VSS Pain control adequate Tolerating diet +amb +f , +BM -n/-v CXs: ngtd Wbc 8.7 Cr 5.5 -> 5.1 1.6 uop Objective MEDICATIONS: Scheduled: amLODIPine, 5 mg, oral, Daily aspirin, 81 mg, oral, QAM cefTRIAXone, 2,000 mg, intravenous, Q24H KITA heparin, 5,000 Units, subcutaneous, Q8H KITA metoprolol tartrate, 25 mg, oral, BID pantoprazole DR, 40 mg, oral, Daily sodium chloride 0.9%, 0.5-20 mL, intra-catheter, Q8H KITA tamsulosin, 0.4 mg, oral, Daily with dinner Infusions: sodium chloride 0.9%, 75 mL/hr, Last Rate: 75 mL/hr (07/04/20 0610) PRN: ??? acetaminophen ??? cyclobenzaprine ??? ondansetron ODT OR ondansetron ??? oxyCODONE ??? sodium chloride 0.9% VITALS: 24hr Min/Max: Temp Min: 36.4 ??C (97.5 ??F) Max: 36.9 ??C (98.4 ??F) Pulse Min: 67 Max: 78 BP Min: 126/65 Max: 136/76 Resp Min: 16 Max: 18 SpO2 Min: 93 % Max: 100 % Most Recent: Vitals: 07/03/20 1501 07/03/20 1952 07/03/20 2356 07/04/20 0415 BP: 136/76 133/64 131/83 126/65 BP Location: Right arm Left arm Right arm Left arm Patient Position: Lying Lying Lying Lying Pulse: 70 72 67 78 Resp: 18 16 16 16 Temp: 36.6 ??C (97.9 ??F) 36.4 ??C (97.5 ??F) 36.9 ??C (98.4 ??F) 36.5 ??C (97.7 ??F) TempSrc: Oral Oral Oral Oral SpO2: 100% 93% 99% 94% Weight: 96.2 kg (212 lb) Height: 190.5 cm (6' 3 ) I/O last 2 completed shifts: In: 1681 [P.O.:830; I.V.:851] Out: 1825 [Urine:1825] Intake/Output Summary (Last 24 hours) at 07/04/2020 0716 Last data filed at 07/04/2020 0610 Gross per 24 hour Intake 1681 ml Output 1825 ml Net -144 ml PHYSICAL EXAM: Constitutional: Appears well-developed and well-nourished. No distress. Cardiovascular: Normal rate, regular rhythm and intact distal pulses. Pulmonary/Chest: Effort normal and breath sounds normal. No respiratory distress. No wheezes nor rales Abdominal: Soft. Bowel sounds are normal. No distension and no mass. There is mild tenderness on palpation of extraction site incision in RLQ with associated erythema and edema, no fluctuance noted, small aperture at the lateral aspect of the incision that allowed for expression of minimal remaining pus Musculoskeletal: No edema or deformity. Lymphadenopathy: No cervical adenopathy. Neurological: Alert and oriented to person, place, and time. Skin: Skin is warm and dry. Psychiatric: Normal mood and affect. ?? LAB/ RADIOLOGY/ DIAGNOSTIC REVIEW: Recent Labs Lab Units 07/03/20 1626 SODIUM mmol/L 140 POTASSIUM PLASMA mmol/L 4.8 CO2 mmol/L 24 BUN SERUM mg/dL 60* GLUCOSE mg/dL 89 CREATININE mg/dL 5.13* CALCIUM mg/dL 8.9 CHLORIDE mmol/L 107 ANIONGAP mmol/L 9 Recent Labs Lab Units 07/03/20 1626 WBC K/cumm 8.7 HEMOGLOBIN g/dL 10.3* HEMATOCRIT % 33.0* MCV fL 97.9* PLATELETS K/cumm 455* I have reviewed the laboratory results. 60yoM with a PMH of ADPKD and CKD stage 4 who is POD# 19 from R radical nephrectomy and presents with surgical site infection. ?? - continue empiric IV CTX - f/u wound culture for gram stain and culture - f/u OSH ER cultures - incision/drainage at bedside today, iodoform dressing BID - obtain AM labs ?? Dispo: pending resolution of SSI Pain: PRN oxy and sched Tylenol Diet: low K diet IVF: NS DVT PPX: SQH, SCDs LTDs: 1 PIV, no dang Code: Full King D. Dumont MD, [facility] [employer] Urology, PGY1 Cosigned by Peterson Haider MD at 07/04/2020 10:24 AM CDT Associated attestation - Peterson Haider MD - 07/04/2020 10:24 AM CDT I have seen and examined the patient on 07/04/20. I agree with the findings and plan of care as documented in the resident note. Please contact urology service with questions or concerns Peterson Haider MD documented in this encounter H&P Notes * Alec Wang MD - 07/03/2020 3:53 PM CDT History and Physical - Urologic Surgery Subjective Patient is a 60 y.o. male with chief complaint of surgical site infection. HPI: Mr. Browne is a 60yoM with a PMH of ADPKD and CKD stage 4 who is POD# 19 from R radical nephrectomy and presents with surgical site infection. Patient was noted to have some erythema at his extraction incision prior to discharge from the hospital. He was sent out with 7 days of Keflex, which he completed. Despite the Keflex he had continueddrainage of serosanguinous fluid from his extraction site incision. Yesterday this drainage stoppedand he began to note increased swelling at the incision site as well as pain at the incision. Today he had persistent swelling in the region with pain and generalized fatigue. He presented to an OSH ED where a CT was obtained that demonstrated a large fluid collection consistent with a surgical site abscess. The abscess was aspirated with 100cc of purulent material obtain and the patient was transferred to [facility] for additional management. On arrival he notes some tenderness, erythema and swelling in the area but denies fevers, chills, chest pain, shortness of breath, hematuria, UTI symptoms, constipation or hematochezia. Past Medical History: Diagnosis Date ??? Anemia [...] mcg tablet cyclobenzaprine (FLEXERIL) 5 mg tablet HYDROcodone-acetaminophen (NORCO) 5-325 mg per tablet lactulose solution 10 gram/15mL metoprolol (LOPRESSOR) 25 mg tablet nitroglycerin (NITROSTAT) 0.4 mg SL tablet omeprazole (PriLOSEC) 40 mg capsule sennosides (SENNA ORAL) tamsulosin (FLOMAX) 0.4 mg extended release capsule No Known Allergies Social History Tobacco Use ??? Smoking status: Former Smoker Packs/day: 1.50 Years: 40.00 Pack years: 60.00 Types: Cigarettes Start date: 04/11/1978 Quit date: 2018 Years since quittin.6 ??? Smokeless tobacco: Never Used Substance Use Topics ??? Alcohol use: Yes Alcohol/week: 2.0 - 3.0 standard drinks Types: 2 - 3 Cans of beer per week Family History Problem Relation Age of Onset ??? Aneurysm Mother ??? Kidney disease Mother ??? Cancer Father ??? Kidney disease Sister ??? PONV Sister ??? Anesthesia problems Neg Hx Review of Systems Constitutional: Negative for appetite change, fatigue, fever and unexpected weight change. HENT: Negative for trouble swallowing. Eyes: Negative for scleral icterus Respiratory: Negative for cough, shortness of breath and wheezing. Cardiovascular: Negative for chest pain, palpitations and leg swelling. Gastrointestinal: Negative for abdominal distention, abdominal pain, blood in stool, constipation, diarrhea, nausea and vomiting. Endocrine: Negative for uncontrolled blood sugars Genitourinary: Negative for difficulty urinating, dysuria and hematuria. Musculoskeletal: Negative for arthralgias. Skin: Negative for color change and rash. Positive for erythema at incision site Neurological: Negative for dizziness, syncope, weakness. Hematological: Negative for adenopathy. Does not bruise/bleed easily. Psychiatric/Behavioral: Negative for agitation and confusion. All other systems reviewed and are negative. Objective Vitals: Arrival Vitals [07/03/20 1501] Temp 36.6 ??C (97.9 ??F) Pulse 70 Resp 18 BP 136/76 SpO2 100 % Temp src Oral Heart Rate Source Monitor Patient Position Lying BP Location Right arm FiO2 (%) Most Recent : Vitals: 07/03/20 1501 BP: 136/76 Pulse: 70 Resp: 18 Temp: 36.6 ??C (97.9 ??F) SpO2: 100% No intake/output data recorded. No intake/output data recorded. Physical exam: Constitutional: Appears well-developed and well-nourished. No distress. HENT: No nasal cannula nor NGT Eyes: Conjunctivae are normal. Neck: Normal range of motion. Cardiovascular: Normal rate, regular rhythm and intact distal pulses. Pulmonary/Chest: Effort normal and breath sounds normal. No respiratory distress. No wheezes nor rales Abdominal: Soft. Bowel sounds are normal. No distension and no mass. There is mild tenderness on palpation of extraction site incision in RLQ with associated erythema and edema, no fluctuance noted, small aperture at the lateral aspect of the incision that allowed for expression of minimal remaining pus Musculoskeletal: No edema or deformity. Lymphadenopathy: No cervical adenopathy. Neurological: Alert and oriented to person, place, and time. Skin: Skin is warm and dry. Psychiatric: Normal mood and affect. Lab/Radiology/Diagnostic Review: I have reviewed the lab and imaging studies reviewed as mentioned above. Assessment/Plan 60yoM with a PMH of ADPKD and CKD stage 4 who is POD# 19 from R radical nephrectomy and presents with surgical site infection. - admit to Urology for observation - start empiric IV CTX - sent wound culture for gram stain and culture - f/u OSH ER cultures - nominate OSH CT for radiology read - consider opening incision more at bedside for better drainage - obtain AM labs Dispo: pending resolution of SSI Pain: PRN oxy and sched Tylenol Diet: low K diet IVF: NS DVT PPX: SQH, SCDs LTDs: 1 PIV, no dang Code: Full Alec Wang MD Urologic Surgery 07/03/20203:54 PM Cosigned by Peterson Haider MD at 07/03/2020 9:16 PM CDT documented in this encounter Miscellaneous Notes * Plan of Care - Stephanie Kang RN - 07/07/2020 11:47 AM CDT Goals: Clinical Goals for the Shift: Wound care teaching, pain control, discharge Summary: Patient discharged Home, pain well controlled, wound care teaching done with present to help assist at home, discharge instructions given and patient verbalizes understanding. * Plan of Care - Gaby Zamarripa RN - 07/07/2020 4:19 AM CDT Problem: Lack of Knowledge: Goal: Ability to state signs and symptoms to report to health care provider will improve Outcome: Progressing Goal: Understanding of ways to prevent infection will improve Outcome: Progressing Problem: Nutritional: Goal: Nutritional status will improve Outcome: Progressing Problem: Physical Regulation: Goal: Diagnostic test results will improve Outcome: Progressing Goal: Will remain free from infection Outcome: Progressing Goal: Ability to maintain vital signs within normal range will improve Outcome: Progressing Problem: Respiratory: Goal: Ability to maintain normal respiratory secretions will improve Outcome: Progressing Problem: Skin Integrity: Goal: Demonstration of wound healing without infection will improve Outcome: Progressing Goal: Complications related to intravenous access or infusion will be avoided or minimized Outcome: Progressing Goals: Clinical Goals for the Shift: pain control, safety, VSS, monitor IOs, dressing change Summary: Pt A&Ox4. VSS. Pt states minimal pain - tylenol given prior to dressing change. Dressing changes BID, wet to dry packing. Incision having a moderate amount of drainage. Pt tolerating packing. Pt UAL. Output is adequate. Will continue to monitor for this shift. * Plan of Care - Yenifer Calderón RN - 07/06/2020 1:46 PM CDT CM notified by Andra of [facility] that [facility] was able to accept patient but sart of care would be delayed until 07/11. company is preferred by patient and and in network for insurance. CM notified PSYCHOLOGY FELLOW Miranda Moreno of the delay to of start of care for services after discharge. Additional wound care supplies to be provided to patient upon discharge. * Plan of Care - Keren Burgess RN - 07/06/2020 9:42 AM CDT Problem: Lack of Knowledge: Goal: Ability to state signs and symptoms to report to health care provider will improve Outcome: Progressing Goal: Understanding of ways to prevent infection will improve Outcome: Progressing Problem: Nutritional: Goal: Nutritional status will improve Outcome: Progressing Problem: Physical Regulation: Goal: Diagnostic test results will improve Outcome: Progressing Goal: Will remain free from infection Outcome: Progressing Goal: Ability to maintain vital signs within normal range will improve Outcome: Progressing Problem: Respiratory: Goal: Ability to maintain normal respiratory secretions will improve Outcome: Progressing Problem: Skin Integrity: Goal: Demonstration of wound healing without infection will improve Outcome: Progressing Goal: Complications related to intravenous access or infusion will be avoided or minimized Outcome: Progressing Problem: Health Behavior: Goal: Understanding of discharge needs will improve Outcome: Progressing Goals: Clinical Goals for the Shift: pain control, safety, VSS, monitor IOs, dressing change Summary: Patient's vitals are stable. His I&Os were monitored. His pain has been well controlled. He is up ad cesar. He is able to express needs. Will continue to monitor. * Plan of Care - Gaby Zamarripa RN - 07/06/2020 4:24 AM CDT Problem: Lack of Knowledge: Goal: Ability to state signs and symptoms to report to health care provider will improve Outcome: Progressing Goal: Understanding of ways to prevent infection will improve Outcome: Progressing Problem: Nutritional: Goal: Nutritional status will improve Outcome: Progressing Problem: Physical Regulation: Goal: Diagnostic test results will improve Outcome: Progressing Goal: Will remain free from infection Outcome: Progressing Goal: Ability to maintain vital signs within normal range will improve Outcome: Progressing Goals: Clinical Goals for the Shift: pain control, safety, VSS, monitor IOs, dressing change Summary: Pt is A&Ox4. Pt denies pain -- oxycodone given before dressing change. Dressing changeBID, wet to dry with silver nitrate. VSS. Output is adequate - pt has yet to have a bowel movement.Pt up ad cesar with a steady gait. Will continue to monitor for this shift. * Plan of Care - Keren Burgess RN - 07/05/2020 3:46 PM CDT Problem: Lack of Knowledge: Goal: Ability to state signs and symptoms to report to health care provider will improve Outcome: Progressing Goal: Understanding of ways to prevent infection will improve Outcome: Progressing Problem: Nutritional: Goal: Nutritional status will improve Outcome: Progressing Problem: Physical Regulation: Goal: Diagnostic test results will improve Outcome: Progressing Goal: Will remain free from infection Outcome: Progressing Goal: Ability to maintain vital signs within normal range will improve Outcome: Progressing Problem: Respiratory: Goal: Ability to maintain normal respiratory secretions will improve Outcome: Progressing Problem: Skin Integrity: Goal: Demonstration of wound healing without infection will improve Outcome: Progressing Goal: Complications related to intravenous access or infusion will be avoided or minimized Outcome: Progressing Problem: Health Behavior: Goal: Understanding of discharge needs will improve Outcome: Progressing Goals: Clinical Goals for the Shift: pain control, safety, VSS, monitor IOs, dressing change Summary: Patient's vitals are stable. His I&Os were monitored. His pain has been well controlled. He is up ad cesar. He is able to express needs. Will continue to monitor. * Plan of Care - Gaby Zamarripa RN - 07/05/2020 2:38 AM CDT Problem: Lack of Knowledge: Goal: Ability to state signs and symptoms to report to health care provider will improve Outcome: Progressing Goal: Understanding of ways to prevent infection will improve Outcome: Progressing Problem: Nutritional: Goal: Nutritional status will improve Outcome: Progressing Problem: Physical Regulation: Goal: Diagnostic test results will improve Outcome: Progressing Goal: Will remain free from infection Outcome: Progressing Goal: Ability to maintain vital signs within normal range will improve Outcome: Progressing Problem: Skin Integrity: Goal: Demonstration of wound healing without infection will improve Outcome: Progressing Goal: Complications related to intravenous access or infusion will be avoided or minimized Outcome: Progressing Goals: Clinical Goals for the Shift: pain control, safety, VSS, monitor IOs, dressing change Summary: Pt is A&Ox4. VSS. Pain is controlled without pain medications -- premedicated with oxycodone before dressing change. Pt is up ad cesar. Output is adequate. Will continue to monitor for this shift. * Plan of Care - Liliana Contreras RN - 07/04/2020 3:59 PM CDT Problem: Lack of Knowledge: Goal: Ability to state signs and symptoms to report to health care provider will improve Outcome: Progressing Goal: Understanding of ways to prevent infection will improve Outcome: Progressing Problem: Nutritional: Goal: Nutritional status will improve Outcome: Progressing Problem: Physical Regulation: Goal: Diagnostic test results will improve Outcome: Progressing Goal: Will remain free from infection Outcome: Progressing Goal: Ability to maintain vital signs within normal range will improve Outcome: Progressing Problem: Respiratory: Goal: Ability to maintain normal respiratory secretions will improve Outcome: Progressing Problem: Skin Integrity: Goal: Demonstration of wound healing without infection will improve Outcome: Progressing Goal: Complications related to intravenous access or infusion will be avoided or minimized Outcome: Progressing Goals: Clinical Goals for the Shift: pain control, out of bed, monitor I&Os Summary: Patient complained of little pain this shift. Pain controlled by analgesics. Patient up adlib and has a steady gait. Patient tolerating a regular diet. opened patient's incision at bedside and packed wound. * Post-Procedure Note - King Dumont MD - 07/04/2020 11:15 AM CDT Bedside incision and drainage 10 cc of lidocaine administered, incision made along right lower quadrant laparoscopic incision, irrigated with 300 mL of NS, hemostasis with silver nitrate swabs, packed with 1/2 inch krillex, dressing with abd pad and super sponge and tape. Will continue ceftriaxone q1d Cosigned by Peterson Haider MD at 07/04/2020 4:12 PM CDT * Plan of Care - Erica Melendez RN - 07/04/2020 3:29 AM CDT Goals: Clinical Goals for the Shift: pain control, monitor I/O, VSS Summary: Pt's pain controlled with flexeril. Pt voiding adequately. VSS. Pt resting comfortably with SCDS on. Problem: Lack of Knowledge: Goal: Ability to state signs and symptoms to report to health care provider will improve Outcome: Progressing Goal: Understanding of ways to prevent infection will improve Outcome: Progressing Problem: Nutritional: Goal: Nutritional status will improve Outcome: Progressing Problem: Physical Regulation: Goal: Diagnostic test results will improve Outcome: Progressing Goal: Will remain free from infection Outcome: Progressing Goal: Ability to maintain vital signs within normal range will improve Outcome: Progressing Problem: Respiratory: Goal: Ability to maintain normal respiratory secretions will improve Outcome: Progressing Problem: Skin Integrity: Goal: Demonstration of wound healing without infection will improve Outcome: Progressing Goal: Complications related to intravenous access or infusion will be avoided or minimized Outcome: Progressing * Plan of Care - France Garces RN - 07/03/2020 6:52 PM CDT Problem: Lack of Knowledge: Goal: Ability to state signs and symptoms to report to health care provider will improve Outcome: Progressing Goal: Understanding of ways to prevent infection will improve Outcome: Progressing Problem: Nutritional: Goal: Nutritional status will improve Outcome: Progressing Problem: Physical Regulation: Goal: Diagnostic test results will improve Outcome: Progressing Goal: Will remain free from infection Outcome: Progressing Goal: Ability to maintain vital signs within normal range will improve Outcome: Progressing Problem: Respiratory: Goal: Ability to maintain normal respiratory secretions will improve Outcome: Progressing Problem: Skin Integrity: Goal: Demonstration of wound healing without infection will improve Outcome: Progressing Goal: Complications related to intravenous access or infusion will be avoided or minimized Outcome: Progressing Goals: Monitor vital signs, tolerate diet,admission labs and IV, antibiotics as ordered Summary: Vital signs stable, tolerating diet, admissions labs drawn, new IV placed, IV antibiotics given as ordered. documented in this encounter Plan of Treatment Scheduled Procedures Name Priority Associated Diagnoses Date/Ti me TRANSPLANT KIDNEY ESRD (end stage renal disease) ([facility]) documented as of this encounter Procedures Procedure Name Priority Date/Time Associated Diagnosis Comments CBC WITHOUT DIFFERENTIAL Timed 07/05/2020 10:33 PM CDT BASIC METABOLIC PANEL Timed 07/05/2020 10:33 PM CDT COVID-19 CORONAVIRUS RNA Routine 07/05/2020 11:15 AM CDT POTASSIUM, WHOLE BLOOD Timed 07/05/2020 3:22 AM CDT DIFFERENTIAL AUTO Timed 07/05/2020 3:2 2 AM CDT CBC WITH AUTO DIFFERENTIAL Timed 07/05/2020 3:22 AM CDT BASIC METABOLIC PANEL Timed 07/05/2020 12:[address] BODY OUTSIDE CONSULT Routine 07/03/2020 5:31 PM CDT Diagnosis unknown AEROBIC CULTURE AND GRAM STAIN Routine 07/03/2020 4:26 PM CDT CBC WITHOUT DIFFERENTIAL Timed 07/03/2020 4:26 PM CDT BASIC METABOLIC PANEL Timed 07/03/2020 4:26 PM CDT documented in this encounter Results * (ABNORMAL) Basic metabolic panel (07/05/2020 10:33 PM CDT) Sodium 141 135 - 145 mmol/L [facility] Potassium, pl 5.0(H) 3.3 - 4.9 mmol/L [facility] Chloride 108 97 - 110 mmol/L [facility] CO2 23 22 - 32 mmol/L [facility] Anion gap 10 2 - 15 mmol/L [facility] BUN 54(H) 8 - 25 mg/dL [facility] Creatinine 4.70(H) 0.80 - 1.30 mg/dL [facility] Glucose 89 70 - 199 mg/dL [facility] Comment: Interpretive Data Fasting glucose >/= 126 [...] 2017. Calcium 8.9 8.5 - 10.3 mg/dL [facility] Blood specimen (specimen) 07/05/2020 10:33 PM CDT 07/05/2020 11:51 PM CDT us Marc Khan MD LAB BLOOD ORDERABLES Frances arndt Result [facility] Department [place] [address] * (ABNORMAL) CBC without differential (07/05/2020 10:33 PM CDT) [facility] WBC 6.7 3.8 - 9.9 K/cumm [facility] Hgb 9.4(L) 13.0 - 17.5 g/dL [facility] Hct 29.5(L) 38.9 - 50.3 % [facility] Plt 413(H) 150 - 400 K/cumm [facility] MPV 10.0 9.1 - 12.3 fL [facility] RBC 3.00(L) 4.30 - 5.80 M/cumm [facility] MCV 98.3(H) 81.3 - 96.4 fL [facility] MCH 31.3 27.1 - 33.3 pg [facility] MCHC 31.9(L) 32.3 - 35.7 g/dL [facility] RDW CV 12.7 11.1 - 14.9 % [facility] RDW SD 45.8 35.7 - 48.1 fL [facility] NRBC abs 0.00 0.00 - 0.01 K/cumm [facility] Blood specimen (specimen) 07/05/2020 10:33 PM CDT 07/05/2020 11:53 PM CDT Macr Khan MD LAB BLOOD ORDERABLES Frances arndt Result [facility] Department [place] [address] * COVID-19 Coronavirus RNA Nasopharyngeal (07/05/2020 11:15 AM CDT) [facility] COVID-19 RNA Not Detected [facility] Comment: Interpretive Data Testing performed at [facility] Molecular Infectious Disease Laboratory. The 2019-Novel Coronavirus Assay (COVID-19) Real Time RT-PCR assay [...] Interpretive Data was last revised on 2020. Nasopharyngeal 07/05/2020 11 :15 AM CDT 07/05/2020 2:58 PM CDT Narrative [facility] - 07/05/2020 11:35 PM CDT Is the patient experiencing any symptoms consistent with COVID (eg. Fever, cough, shortness of breath)?->No What is the reason for testing?->Discharge planning/removal of isolation Marc Khan MD LAB MICROBIOLOGY - GENERA L ORDERABLES Final Result [facility] Department [place] [address] * (ABNORMAL) Differential, auto (07/05/2020 3:22 AM CDT) Neutrophil abs 4.2 1.7 - 6.5 K/cumm [facility] Imm gran abs 0.1 0.0 - 0.1 K/cumm [facility] Lymphocyte abs 2.0 0.8 - 3.3 K/cumm [facility] Monocyte abs 0.9(H) 0.2 - 0.8 K/cumm [facility] Eosinophil abs 0.4 0.0 - 0.5 K/cumm [facility] Basophil abs 0.1 0.0 - 0.1 K/cumm [facility] Neutrophil pct 55.2 % [facility] Comment: Interpretive Data Percent cell count reference ranges are not reported, since discordance with absolute values may lead to misinterpretation of CBC data. Current Interpretive Data was last revised on 2018. Imm gran pct 0.8 % [facility] Comment: Interpretive Data Percent cell count reference ranges are not reported, since discordance with absolute values may lead to misinterpretation of CBC data. Current Interpretive Data was last revised on 2018. Lymphocyte pct 26.8 % [facility] Comment: Interpretive Data Percent cell count reference ranges are not reported, since discordance with absolute values may lead to misinterpretation of CBC data. Current Interpretive Data was last revised on 2018. Monocyte pct 11.4 % [facility] Comment: Interpretive Data Percent cell count reference ranges are not reported, since discordance with absolute values may lead to misinterpretation of CBC data. Current Interpretive Data was last revised on 2018. Eosinophil pct 5.0 % [facility] Comment: Interpretive Data Percent cell count reference ranges are not reported, since discordance with absolute values may lead to misinterpretation of CBC data. Current Interpretive Data was last revised on 2018. Basophil pct 0.8 % [facility] Comment: Interpretive Data Percent cell count reference ranges are not reported, since discordance with absolute values may lead to misinterpretation of CBC data. Current Interpretive Data was last revised on 2018. Blood specimen (specimen) 07/05/2020 3:22 AM CDT 07/05/2020 3:40 AM CDT us Monica Pollack MD LAB BLOOD ORDERABLES Final Re sult [facility] Department [place] [address] * (ABNORMAL) CBC with auto differential (07/05/2020 3:22 AM CDT) WBC 7.6 3.8 - 9.9 K/cumm [facility] Hgb 10.1(L) 13.0 - 17.5 g/dL [facility] Hct 32.3(L) 38.9 - 50.3 % [facility] Plt 442(H) 150 - 400 K/cumm [facility] MPV 9.4 9.1 - 12.3 fL [facility] RBC 3.26(L) 4.30 - 5.80 M/cumm [facility] MCV 99.1(H) 81.3 - 96.4 fL [facility] MCH 31.0 27.1 - 33.3 pg [facility] MCHC 31.3(L) 32.3 - 35.7 g/dL [facility] RDW CV 12.6 11.1 - 14.9 % [facility] RDW SD 45.9 35.7 - 48.1 fL [facility] NRBC abs 0.00 0.00 - 0.01 K/cumm [facility] Blood specimen (specimen) 07/05/2020 3:22 AM CDT 07/05/2020 3:40 AM CDT Monica Pollack MD LAB BLOOD ORDERABLES Final Re sult Performing Organization Address [facility] de Phone Number [facility] [place] [address] * Potassium, whole blood (07/05/2020 3:22 AM CDT) Potassium, bld 4.9 3.3 - 4.9 mmol/L [facility] Comment: Interpretive Data Unable to assess hemolysis. ??Invitro hemolysis causes falsely elevated potassium. Current Interpretive Data was last revised on 2020. Blood specimen (specimen) 07/05/2020 3:22 AM CDT 07/05/2020 3:32 AM CDT Monica Pollack MD LAB BLOOD ORDERABLES Final Re sult Performing Organization Address [facility] de Phone Number [facility] [place] [address] * (ABNORMAL) Basic metabolic panel (07/05/2020 12:37 AM CDT) Sodium 139 135 - 145 mmol/L [facility] Potassium, pl See Comment 3.3 - 4.9 mmol/L [facility] Comment:Credited; Hemolyzed Specimen Chloride 110 97 - 110 mmol/L [facility] CO2 22 22 - 32 mmol/L [facility] Comment:Hemolyzed; result ma y be falsely decreased Anion gap 7 2 - 15 mmol/L [facility] BUN 55(H) 8 - 25 mg/dL [facility] Creatinine 4.61(H) 0.80 - 1.30 mg/dL [facility] Glucose 99 70 - 199 mg/dL [facility] Comment: Interpretive Data Fasting glucose >/= 126 [...] interpretive data was last revised 2017. Calcium 8.7 8.5 - 10.3 mg/dL [facility] Blood specimen (specimen) 07/05/2020 12:37 AM CDT 07/05/2020 1:20 AM CDT us Marc Khan MD LAB BLOOD ORDERABLES Frances l Result [facility] Department [place] [address] * CT Body Outside Consult (07/03/2020 5:31 [...] images may or may not represent the [place] source data set and thus may contain changes that may lower the accuracy of this second-opinion interpretation. Electronically signed by: Rj Downs M.D. Narrative 07/03/2020 10:40 PM CDT EXAMINATION: RADIOLOGY CONSULTATION ON OUTSIDE IMAGING STUDY STUDY INITIALLY PERFORMED: 07/03/2020 at [facility] TYPE OF STUDY: Multiple computed tomographic images [...] IMAGING STUDY STUDY INITIALLY PERFORMED: 07/03/2020 at [facility] TYPE OF STUDY: Multiple computed tomographic images [...] images may or may not represent the [place] source data set and thus may contain changes that may lower the accuracy of this second-opinion interpretation. Electronically signed by: Rj Downs M.D. Alec Wang MD IMG CT PROCEDURES Frances l Result * (ABNORMAL) Aerobic culture and gram stain Wound Abdominal, right lower quadrant (07/03/2020 4:26 PMCDT) Direct Specimen Exam Stain: Rare polymorphonuclear leukocytes seen. No organisms seen. [facility] Report Final Report: Few Escherichia coli (.) [facility] Organism ESCHERICHIA COLI [facility] Wound (Abdominal, right lower quadrant) 07/03/2020 4:26 PM CDT 07/03/2020 5:27 PM CDT Narrative [facility] - 07/07/2020 9:39 AM CDT Testing performed by [facility] Microbiology Laboratory ([phone]) Specimens submitted from normally sterile body sites will have all bacterial morphotypes identified. ??Specimens that contain grossly mixed raysa and/or are from body sites that are not normally sterile will be examined for Staphylococcus aureus, Pseudomonas aeruginosa, beta-hemolytic strep, vancomycin-resistant Enterococcus and fungus. ??If any of these are isolated, the organism will be reported. Current interpretive data was last revised on 2017. Organism Antibiotic Method Susceptibility Escherichia coli Ampicillin INTERPRETATION Susceptible Escherichia coli Cefazolin INTERPRETATION Susceptible Escherichia coli Gentamicin INTERPRETATION Susceptible Escherichia coli Ampicillin with Sulbactam INTERPRETAT ION Susceptible Escherichia coli Trimethoprim with Sulfamethoxazole IN TERPRETATION Susceptible Escherichia coli Meropenem INTERPRETATION Susceptible Escherichia coli Cefepime INTERPRETATION Susceptible Escherichia coli Ciprofloxacin INTERPRETATION Susceptible Escherichia coli Ceftazidime INTERPRETATION Susceptible Escherichia coli Ceftriaxone INTERPRETATION Susceptible Escherichia coli Piperacillin/Tazobactam INTERPRETATIO N Susceptible Marc Khan MD LAB MICROBIOLOGY - GENERA L ORDERABLES Final Result [facility] Department [place] [address] * (ABNORMAL) Basic metabolic panel (07/03/2020 4:26 PM CDT) Sodium 140 135 - 145 mmol/L [facility] Potassium, pl 4.8 3.3 - 4.9 mmol/L [facility] Chloride 107 97 - 110 mmol/L [facility] CO2 24 22 - 32 mmol/L [facility] Anion gap 9 2 - 15 mmol/L [facility] BUN 60(H) 8 - 25 mg/dL [facility] Creatinine 5.13(H) 0.80 - 1.30 mg/dL [facility] Glucose 89 70 - 199 mg/dL [facility] Comment: Interpretive Data Fasting glucose >/= 126 [...] 2017. Calcium 8.9 8.5 - 10.3 mg/dL [facility] Blood specimen (specimen) 07/03/2020 4:26 PM CDT 07/03/2020 5:27 PM CDT us Marc Khan MD LAB BLOOD ORDERABLES Frances arndt Result [facility] Department [place] [address] * (ABNORMAL) CBC without differential (07/03/2020 4:26 PM CDT) Pathologist [facility] WBC 8.7 3.8 - 9.9 K/cumm [facility] Hgb 10.3(L) 13.0 - 17.5 g/dL [facility] Hct 33.0(L) 38.9 - 50.3 % [facility] Plt 455(H) 150 - 400 K/cumm [facility] MPV 9.7 9.1 - 12.3 fL [facility] RBC 3.37(L) 4.30 - 5.80 M/cumm [facility] MCV 97.9(H) 81.3 - 96.4 fL [facility] MCH 30.6 27.1 - 33.3 pg [facility] MCHC 31.2(L) 32.3 - 35.7 g/dL [facility] RDW CV 12.6 11.1 - 14.9 % [facility] RDW SD 45.6 35.7 - 48.1 fL [facility] NRBC abs 0.00 0.00 - 0.01 K/cumm [facility] Blood specimen (specimen) 07/03/2020 4:26 PM CDT 07/03/2020 5:27 PM CDT us Marc Khan MD LAB BLOOD ORDERABLES Frances yris Result [facility] Department [place] [address] documented in this encounter Visit Diagnoses Diagnosis Surgical site infection- Primary Diagnosis unknown documented in this encounter Administered Medications Inactive Administered Medications - up to 3 most recent administrations Medication Order MAR Action Action Date Dose Rate Site acetaminophen (TYLENOL) tablet 650 mg 650 mg, oral, Every 4 hours PRN, 1st line for pain, Starting on Sat07/03/20 at 1548, Indications: PainIndications:Pain Given 07/07/2020 7:58 AM CDT 650 mg Given 07/06/2020 9:01 PM CDT 650 mg Given 07/04/2020 5:23 PM CDT 650 mg amLODIPine (NORVASC) tablet 5 mg 5 mg, oral, Daily, First dose on Sat07/04/20 at 0900 Given 07/07/2020 8:19 AM CDT 5 mg Given 07/06/2020 9:28 AM CDT 5 mg Given 07/05/2020 9:51 AM CDT 5 mg aspirin enteric coated tablet 81 mg 81 mg, oral, Every morning, First dose on Sat07/04/20 at 0900, Do not crush, chew, cut, dissolve, open or otherwise manipulate tablet/capsule., Indications: Myocardial Reinfarction PreventionIndications:Myocardial Reinfarction Prevention Given 07/07/2020 7:58 AM CDT 81 mg Given 07/06/2020 9:28 AM CDT 81 mg Given 07/05/2020 9:51 AM CDT 81 mg bisacodyL (DULCOLAX) suppository 5 mg 5 mg, rectal, Daily, First dose (after last modification) on Sat07/05/20 at 2100 cefTRIAXone (ROCEPHIN) 2,000 mg/20 mL in sterile water (premix) 2,000 mg 2,000 mg, intravenous, at 1,200 mL/hr, Administer over 1 Minutes, Every 24 hours scheduled, First dose on Sat07/03/20 at 1800, Indications: Skin/Soft Tissue InfectionIndications:Skin/Soft Tissue Infection Given 07/06/2020 9:01 PM CDT 2,000 mg 1200 mL/hr Given 07/05/2020 6:15 PM CDT 2,000 mg 1200 mL/hr Given 07/04/2020 5:22 PM CDT 2,000 mg 1200 mL/hr cyclobenzaprine (FLEXERIL) tablet 5 mg 5 mg, oral, 3 times daily PRN, muscle spasms, Starting on Sat07/03/20 at 1800 Given 07/03/2020 8:19 PM CDT 5 mg heparin 5,000 unit/mL injection 5,000 Units 5,000 Units, subcutaneous, Every 8 hours scheduled, First dose on Sat07/03/20 at 1630, Indications: Deep Vein Thrombosis PreventionIndications:Deep Vein Thrombosis Prevention Given 07/07/2020 5:52 AM CDT 5,000 Units Left Lower Abdomen Given 07/06/2020 9:01 PM CDT 5,000 Units L eft Lower Abdomen Given 07/06/2020 3:41 PM CDT 5,000 Units L eft Lower Abdomen HYDROmorphone (DILAUDID) 0.5 mg/0.5 mL injection - ADS Override Pull Starting on Sat07/05/20 at 0930, For 1 dose, Created by briana override HYDROmorphone (DILAUDID) injection 0.2 mg 0.2 mg, intravenous, Administer over 2 Minutes, Once, On Sat07/05/20 at 1015, For 1 dose Given 07/05/2020 9:33 AM CDT 0.2 mg lactulose 0.67 gram/mL oral solution 10 g 10 g, oral, 2 times daily, First dose (after last modification) on Sat07/05/20 at 2100, Indications: constipationIndications:constipation Given 07/06/2020 9:28 AM CDT 10 g Given 07/05/2020 8:28 PM CDT 10 g lactulose 0.67 gram/mL oral solution 20 g 20 g, oral, 2 times daily, First dose (after last modification) on Sat07/06/20 at 2100, Indications: constipationIndications:con stipation Given 07/06/2020 9:01 PM CDT 20 g lidocaine (XYLOCAINE) 10 mg/mL (1 %) injection - ADS Override Pull Starting on Sat07/05/20 at 0835, For 1 dose, Created by cabinet override lidocaine (XYLOCAINE) 10 mg/mL (1 %) injection 100 mg 100 mg (10 mL), subcutaneous, Once, On Sat07/05/20 at 0730, For 1 dose, Indications: Administration of Local AnesthesiaIndications:Admin istration of Local Anesthesia Given 07/05/2020 9:37 AM CDT 100 mg Face lidocaine (XYLOCAINE) 10 mg/mL (1 %) injection 200 mg 200 mg (20 mL), subcutaneous, Once, On Sat07/04/20 at 0900, For 1 dose, Indications: Administration of Local AnesthesiaIndications:Admin istration of Local Anesthesia Given by Other 07/05/2020 9:36 AM CDT 200 mg Right Lower Abdomen Given 07/04/2020 10:29 AM CDT 200 mg R ight Lower Abdomen metoprolol tartrate (LOPRESSOR) immediate release tablet 25 mg 25 mg, oral, 2 times daily, First dose on 07/03/20 at 2100 Given 07/07/2020 7:58 AM CDT 25 mg Given 07/06/2020 9:01 PM CDT 25 mg Given 07/06/2020 9:28 AM CDT 25 mg ondansetron (ZOFRAN) injection 4 mg 4 mg, intravenous, Administer over 2 Minutes, Every 6 hours PRN, nausea, vomiting, if not tolerating PO, Starting on 07/03/20 at 1548, Indications: Nausea and VomitingIndications:Nausea and Vomiting Given 07/05/2020 9:31 PM CDT 4 mg Given 07/05/2020 4:54 PM CDT 4 mg ondansetron ODT (ZOFRAN-ODT) disintegrating tablet 4 mg 4 mg, oral, Every 6 hours PRN, nausea, vomiting, Starting on 07/03/20 at 1548, Indications: Nausea and VomitingIndications:Nausea and Vomiting Given 07/05/2020 12:38 AM CDT 4 m g oxyCODONE (ROXICODONE) tablet 5 mg 5 mg, oral, Every 4 hours PRN, 2nd line for pain, Starting on 07/03/20 at 1548, May administer 1 hour after 1st line agent for uncontrolled or increasing pain., Indications: PainIndications:Pain Given 07/05/2020 9:31 PM CDT 5 mg Given 07/05/2020 2:22 PM CDT 5 mg Given 07/04/2020 9:41 PM CDT [address] (PROTONIX) extended release tablet 40 mg 40 mg, oral, Daily, First dose on Sat07/04/20 at 0900, Do not crush, chew, cut, dissolve, open or otherwise manipulate tablet/capsule., Indications: Treatment of Non-Bleeding Gastric DisorderIndications:Treatment of Non-Bleeding Gastric Disorder Given 07/07/2020 7:58 AM CDT 40 mg Given 07/06/2020 9:28 AM CDT 40 mg Given 07/05/2020 9:51 AM CDT 40 mg polyethylene glycol (MIRALAX) packet 17 g 17 g, oral, Daily, First dose on Sat07/07/20 at 0900, Indications: constipationIndications:constipation Given 07/07/2020 7:58 AM CDT 17 g senna (SENOKOT) tablet 2 tablet 2 tablet, oral, 2 times daily, First dose on Sat07/05/20 at 1345, Indications: constipationIndications:constipation Given 07/06/2020 9:01 PM CDT 2 table ts Given 07/06/2020 9:28 AM CDT 2 tablets Given 07/05/2020 8:28 PM CDT 2 tablets silver nitrate applicator 10 application 10 application (deactivated), topical, Once, On Sat07/04/20 at 0900, For 1 dose, Apply to affected area: wound Given 07/04/2020 10:29 AM CDT 6 application (deactivated) sodium chloride 0.9% flush 0.5-20 mL 0.5-20 mL, intra-catheter, Every 8 hours scheduled, First dose on Sat07/03/20 at 1630, Flush volume based on line type and size. Given 07/06/2020 9:03 PM CDT 10 mL Given 07/06/2020 5:31 PM CDT 10 mL Given 07/05/2020 8:35 PM CDT 10 mL sodium chloride 0.9% infusion 75 mL/hr, intravenous, Continuous, Starting on 07/03/20 at 1630 New Bag 07/05/2020 5:33 AM CDT 75 mL/hr 75 mL/hr New Bag 07/04/2020 5:23 PM CDT 75 mL/hr 75 mL/hr Rate/Dose Verify 07/04/2020 3:51 PM CDT 75 mL/hr 75 mL/h r tamsulosin (FLOMAX) extended release capsule 0.4 mg 0.4 mg, oral, Daily with dinner, First dose on Sat07/03/20 at 1800, Do not crush, chew, cut, dissolve, open or otherwise manipulate tablet/capsule. Given 07/06/2020 6:30 PM CDT 0.4 mg Given 07/05/2020 6:15 PM CDT 0.4 mg Given 07/04/2020 5:23 PM CDT 0.4 mg documented in this encounter Discontinued Medications Medication Sig Discontinue Reason Start Date End Da te sulfamethoxazole-trime thoprim (BACTRIM DS) 800-160 mg per tablet Take 1 tablet by mouth 2 (two) times a day for 10 days Stop Taking at Discharge 07/07/2020 07/07/2020 HYDROcodone-acetaminop hen (NORCO) 5-325 mg per tabletIndications:Pain Take 1 tablet by mouth every 6 (six) hours as needed (breakthrough pain) Stop Taking at Discharge 06/21/2020 07/07/2020 documented as of this encounter Active and Recently Administered Medications Times are shown in CDT. Scheduled Medication Order 07/05/2020 07/06/2020 07/07/2020 amLODIPine (NORVASC) tablet 5 mg 5 mg, oral, Daily, First dose on Sat07/04/20 at 0900 0951 (Given - Provider: Keren Burgess RN) 0928 (Given - Provider: Keren Burgess, LEYDI) 0819 (Given - Provider: Stephanie Kang, RN) aspirin enteric coated tablet 81 mg 81 mg, oral, Every morning, First dose on Sat07/04/20 at 0900, Do not crush, chew, cut, dissolve, open or otherwise manipulate tablet/capsule., Indications: Myocardial Reinfarction Prevention 0951 (Given - Provider: Keren Burgess, LEYDI) 0928 (Given - Provider: Keren Burgess, LEYDI) 0758 (Given - Provider: Stephanie Kang, RN) bisacodyL (DULCOLAX) suppository 5 mg 5 mg, rectal, Daily, First dose (after last modification) on Sat07/05/20 at 2100 2026 (Not Given - Provider: Gaby Zamarripa RN - Reason: Patient/family refused) 2103 (Not Given - Provider: Gaby Zamarripa RN - Reason: Patient/family refused) cefTRIAXone (ROCEPHIN) 2,000 mg/20 mL in sterile water (premix) 2,000 mg 2,000 mg, intravenous, at 1,200 mL/hr, Administer over 1 Minutes, Every 24 hours scheduled, First dose on Sat07/03/20 at 1800, Indications: Skin/Soft Tissue Infection 1815 (Given - Provider: Keren Burgess RN) 2100 (Given - Provider: Gaby Zamarripa RN) heparin 5,000 unit/mL injection 5,000 Units 5,000 Units, subcutaneous, Every 8 hours scheduled, First dose on Sat07/03/20 at 1630, Indications: Deep Vein Thrombosis Prevention 0533 (Given - Provider: Gaby Zamarripa RN)1310 (Given - Provider: Keren Burgess RN)2027 (Given - Provider: Gaby Zamarripa RN) 0549 (Given - Provider: Gaby Zamarripa RN)154 (Given - Provider: Keren Burgess RN)2100 (Given - Provider: Gaby Zamarripa RN) 0552 (Given - Provider: Gaby Zamarripa RN) HYDROmorphone (DILAUDID) injection 0.2 mg (COMPLETED) 0.2 mg, intravenous, Administer over 2 Minutes, Once, On Sat07/05/20 at 1015, For 1 dose 0933 (Given - Provider: Keren Burgess RN - Comment: MD Dumont verified) lactulose 0.67 gram/mL oral solution 10 g (CANCELED) 10 g, oral, 2 times daily, First dose (after last modification) on Sat07/05/20 at 2100, Indications: constipation 2027 (Given - Provider: Gaby Zamarripa RN) 09 (Given - Provider: Keren Burgess RN) lactulose 0.67 gram/mL oral solution 20 g 20 g, oral, 2 times daily, First dose (after last modification) on Sat07/06/20 at 2100, Indications: constipation 2100 (Given - Provider: Gaby Zamarripa RN) 075 (Not Given - Provider: Stephanie Kang RN - Reason: Patient/family refused) lidocaine (XYLOCAINE) 10 mg/mL (1 %) injection 100 mg (COMPLETED) 100 mg (10 mL), subcutaneous, Once, On Sat07/05/20 at 0730, For 1 dose, Indications: Administration of Local Anesthesia 0937 (Given - Provider: Keren Burgess RN - Comment: Given by MD Dumont during procedure) lidocaine (XYLOCAINE) 10 mg/mL (1 %) injection 200 mg (COMPLETED) 200 mg (20 mL), subcutaneous, Once, On Sat07/04/20 at 0900, For 1 dose, Indications: Administration of Local Anesthesia 0936 (Given by Other - Provider: Keren Burgess RN - Comment: Given by MD Dumont prior to procedure) metoprolol tartrate (LOPRESSOR) immediate release tablet 25 mg 25 mg, oral, 2 times daily, First dose on Sat07/03/20 at 2100 0951 (Given - Provider: Keren Burgess RN)2027 (Given - Provider: Gaby Zamarripa RN) 09 (Given - Provider: Keren Burgess RN)2100 (Given - Provider: Gaby Zamarripa, LEYDI) 0758 (Given - Provider: Stephanie Kang RN) pantoprazole DR (PROTONIX) extended release tablet 40 mg 40 mg, oral, Daily, First dose on Sat07/04/20 at 0900, Do not crush, chew, cut, dissolve, open or otherwise manipulate tablet/capsule., Indications: Treatment of Non-Bleeding Gastric Disorder 0951 (Given - Provider: Keren Burgess RN) 0928 (Given - Provider: Keren Burgess RN) 0758 (Given - Provider: Stephanie Kang, LEYDI) polyethylene glycol (MIRALAX) packet 17 g 17 g, oral, Daily, First dose on Sat07/07/20 at 0900, Indications: constipation 0758 (Given - Provider: Stephanie Kang, LEYDI) senna (SENOKOT) tablet 2 tablet 2 tablet, oral, 2 times daily, First dose on 9/8/20 at 1345, Indications: constipation 1420 (Given - Provider: Keren Burgess RN)2027 (Given - Provider: Gaby Zamarripa, LEYDI) 0928 (Given - Provider: Keren Burgess RN)210 (Given - Provider: Gaby Zamarripa RN) 0759 (Not Given - Provider: Stephanie Kang RN - Reason: Patient/family refused) sodium chloride 0.9% flush 0.5-20 mL 0.5-20 mL, intra-catheter, Every 8 hours scheduled, First dose on 07/03/20 at 1630, Flush volume based on line type and size. 0529 (Not Given - Provider: Gaby Zamarripa RN - Reason: IV Infusing)1310 (Given - Provider: Keren Burgess RN)2034 (Given - Provider: Gaby Zamarripa RN) 0506 (Not Given - Provider: Gaby Zamarripa RN - Reason: Other)173 (Given - Provider: Keren Burgess RN)210 (Given - Provider: Gaby Zamarripa RN) 0524 (Not Given - Provider: Gaby Zamarripa RN - Reason: Other) tamsulosin (FLOMAX) extended release capsule 0.4 mg 0.4 mg, oral, Daily with dinner, First dose on Sat07/03/20 at 1800, Do not crush, chew, cut, dissolve, open or otherwise manipulate tablet/capsule. 1815 (Given - Provider: Keren Burgess RN) 1830 (Given - Provider: Keren Burgess RN) Continuous Medication Order 07/05/2020 07/06/2020 07/07/2020 sodium chloride 0.9% infusion (CANCELED) 75 mL/hr, intravenous, Continuous, Starting on 07/03/20 at 1630 0533 (New Bag - Provider: Gaby Zamarripa RN)1310 (Stopped - Provider: Keren Burgess RN) PRN Medication Order 07/05/2020 07/06/2020 07/07/2020 acetaminophen (TYLENOL) tablet 650 mg 650 mg, oral, Every 4 hours PRN, 1st line for pain, Starting on 07/03/20 at 1548, Indications: Pain 2101 (Given - Provider: Gaby Zamarripa RN) 0758 (Given - Provider: Stephanie Kang RN) cyclobenzaprine (FLEXERIL) tablet 5 mg 5 mg, oral, 3 times daily PRN, muscle spasms, Starting on 07/03/20 at 1800 ondansetron (ZOFRAN) injection 4 mg(Linked Group 1) 4 mg, intravenous, Administer over 2 Minutes, Every 6 hours PRN, nausea, vomiting, if not tolerating PO, Starting on 07/03/20 at 1548, Indications: Nausea and Vomiting 0038 (See Alternative - Provider: Gaby Zamarripa RN)1654 (Given - Provider: Keren Burgess RN)2130 (Given - Provider: Gaby Zamarripa, LEYDI) ondansetron ODT (ZOFRAN-ODT) disintegrating tablet 4 mg(Linked Group 1) 4 mg, oral, Every 6 hours PRN, nausea, vomiting, Starting on 07/03/20 at 1548, Indications: Nausea and Vomiting 0038 (Given - Provider: Gaby Zamarripa RN)165 (See Alternative - Provider: Keren Burgess RN)2130 (See Alternative - Provider: Gaby Zamarripa RN) oxyCODONE (ROXICODONE) tablet 5 mg 5 mg, oral, Every 4 hours PRN, 2nd line for pain, Starting on 07/03/20 at 1548, May administer 1 hour after 1st line agent for uncontrolled or increasing pain., Indications: Pain 0951 (Not Given - Provider: Keren Burgess RN - Reason: Patient/family refused)1422 (Given - Provider: Keren Burgess RN)2130 (Given - Provider: Gaby Zamarripa RN) sodium chloride 0.9% flush 0.5-20 mL 0.5-20 mL, intra-catheter, As needed, line care, Starting on 07/03/20 at 1546, Flush volume based on line type and size. Flush before and after each use. Linked Groups Order Group 1: ondansetron ODT (ZOFRAN-ODT) disintegrating tablet 4 mgJump to med 4 mg, oral, Every 6 hours PRN, nausea, vomiting, Starting on 07/03/20 at 1548, Indications: Nausea and Vomiting Or ondansetron (ZOFRAN) injection 4 mgJump to med 4 mg, intravenous, Administer over 2 Minutes, Every 6 hours PRN, nausea, vomiting, if not tolerating PO, Starting on 07/03/20 at 1548, Indications: Nausea and Vomiting documented in this encounter Orders Medications Ordered That Wolf ht Not Have Been Administered Count Last Ordered Date First Ordered Date bisacodyL (DULCOLAX) suppository 5 mg 2 05/2020 lactulose 0.67 gram/mL oral solution 10 g 1 07/05/2020 lidocaine (XYLOCAINE) 10 mg/ mL (1 %) injection 50 mg 1 07/05/2020 enoxaparin (LOVENOX) syringe 40 mg 1 2019 sodium chloride 0.9% flush 0.5-20 mL 1 03/2020 Nursing Count Last Ordered Date First Orde red Date WEIGH PATIENT 1 07/03/2020 documented in this encounter Care Teams Pt Skilled Relationship Specialty Start Date End Date Gerardo Shah MD PCP - General Internal Medicine 09/30/18 Suzette Stirckland MD [address] [facility] [address] [place] [address] Referring Physician Nephrology 02/15/20 Rita Tapia, RN [address] [place] [address] Registered Nurse [place] [employer] 02/15/20 documented as of this encounter
--- OUTSIDE RECORDS SUMMARY | 2024-10-16 06:40 | XMS_ITS | Encounter Summary ---
Author Organization [facility] Healthcare Address [address] [place] [address] Care Team Providers Care Check And Transfer Beader Name Role Phone Gerardo Shah MD Primary Care Provider [phone] Suzette Strickland MD Unavailable [phone] Rita Tapia RN Unavailable [phone] Encounter Details Date Type Department Care Team (Late st Contact Info) Description 08/01/2020 8:25 AM CDT Anesthesia Event [facility] Operating Room 1 [place] [id number] Cindy Spence MD PhD [address] [place] [address] Antonieta Fontana, EZEQUIEL [address] [facility] [phone] [place] [address] Anesthesia Record Procedure Summary Procedure Name Responsible Anesthesiologist Anesthesia Start Time Anesthesia Stop Time CREATION ARTERIOVENOUS FISTULA - ARM (Left: Elbow) Cindy Spence MD PhD 08/01/20 0825 08/01/20 1010 Events Date Time Event Comment 08/01/2020 0607 In Preop 0825 An Start 0827 An Start Data 0827 In Room 0835 An Induction The patient was reevaluated immediately before moderate or deep sedation use and before anesthesia induction. 0839 An Intubation 0852 Anesthesia Ready 0857 Proc Start 0857 Incision Start 0943 Proc Fin 0959 An Extubation 1000 an stop data 1002 Out of Room 1010 Handoff to RN I completed my handoff [...] disposition at the time of handoff: PACU 1010 An Stop Meds Name Total propofol 200 mg rocuronium 60 mg phenylephrine 100 mcg/mL 100 mcg ondansetron PF (ZOFRAN) 2 mg/mL injectio n 4 mg glycopyrrolate 0.8 mg neostigmine injection 1 mg/mL 4 mg ceFAZolin (ANCEF) 2,000 mg/20 mL in ster ile water (premix) 2,000 mg 2,000 mg albuterol inhaler 10 puff dexamethasone 4 mg/ml 4 mg phenylephrine infusion (100 mcg/mL) 5.06 mg fentaNYL 100 mcg lidocaine 2 % PF 100 mg heparin 1,000 unit/mL PF 3,000 Units sodium chloride 0.9% infusion 400 mL * Agents Name O2% N2O O2 Air Sevoflurane Desflurane Inspired Desflurane Inspired Sevoflurane * Blood No blood administrations on file. Lines, Drains, and Airways Type Details Placement Removal Hemodialysis AV Access Placement Date: 08/01/20; Placement Time: 1000 08/01/20 1000 by Pam Winston RN RETIRED Surgical Site 06/14/20; 0939; Right; Flank; with lap sites x 3; 09/29/24 (Retired LDA, Removed/Completed by [employer] with LDA Utility); 1213 (Retired LDA, Removed/Completed by [employer] with LDA Utility) 06/14/20 0939 by Blanka Devlin RN 09/29/24 1213 by Discharge Provider, Automatic Peripheral IV Placement Date: 08/01/20; Placement Time: 0640; Catheter Size: 20 G; Orientation: Right; Location: Hand; Insertion Attempts: 2; Patient Tolerance: Tolerated well; Removal Date: 08/01/20; Removal Time: 1318; Removal Reason: Discharge 08/01/20 0640 by Beto Barnett RN 08/01/20 1318 by Lorena Saba RN ETT Placement Date: 08/01/20; Placement Time: 08 (created via procedure documentation); Mask Ventilation: 1; Technique: Direct laryngoscopy; Type: ETT - single; Single Lumen Tube Size: 8 mm; Cuffed: Yes; Laryngoscope: Tim; Blade Size: 4; Location: Oral; Grade View: Grade I; Insertion Attempts: 1; Placement Verification: Auscultation, Capnometry; Removal Date: 08/01/20; Removal Time: 95808/01/20 0837 by Vanita Flores MD 08/01/20 0959 by Vanita Flores MD RETIRED Surgical Site 08/01/20; 0943; Le ft; Arm; 09/29/24 (Retired LDA, Removed/Completed by [employer] with LDA Utility); 1213 (Retired LDA, Removed/Completed by [employer] with LDA Utility) 08/01/20 0943 by Barbara [...] on file 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 Gender Identity Not on file Sexual Orientation Straight 05/03/2020 10 :36 AM CDT documented as of this encounter OR Notes * Anesthesia Postprocedure Evaluation - Jhony Canales MD - 08/01/2020 11:24 AM CDT Patient: Abel Browne Procedure Summary Date: 08/01/20 Room / Location: [facility] OR POD 3 ROOM 307 / [facility] OR POD 3 Anesthesia Start: 824 Anesthesia Stop: 1009 Procedure: CREATION ARTERIOVENOUS FISTULA - ARM (Left Elbow) Diagnosis: End-stage renal disease (ESRD) (CMS/HCC) (End-stage renal disease (ESRD) (CMS/HCC) [N18.6]) Surgeon: Chucho Aponte MD Responsible Provider: Cindy Spence MD PhD Anesthesia Type: general ASA Status: 3 Anesthesia Type: general Last vitals BP 106/69 Pulse 63 Temp 36.2 ??C (97.2 ??F) Resp 15 SpO2 96% Anesthesia Post Evaluation Patient location during evaluation: PACU Patient participation: complete - patient participated Level of consciousness: fully awake Pain management: satisfactory to patient Airway patency: adequate Evidence of recall: no Anesthetic complications: no Cardiovascular status: hemodynamically stable Respiratory status: non-labored ventilation Hydration status: stable Pt is: normothermic Nausea/Vomiting status: none * Anesthesia Procedure Notes - Vanita Flores MD - 08/01/2020 9:05 AM CDT Associated Order(s): Airway Airway Patient location: OR Urgency: elective Date/time: 08/01/2020 8:37 AM Indications for airway management: anesthesia Difficult airway: no Staff: Supervising provider: Cindy Spence MD PhD Placed by: Resident: Vanita Flores MD Emergent airway documentation: Risks and benefits discussed: yes Consent obtained: yes Consent given by: patient Airway prep: Preoxygenated: yes Patient position: sniffing Mask difficulty assessment: 1 - vent by mask Spontaneous ventilation during airway: absent Sedation level during airway: GA Final airway details: Final airway type: endotracheal airway Tube type: ETT ETT size: 8.0 mm Cuffed: yes Technique used for successful ETT placement: direct laryngoscopy Devices/Methods used in placement: cricoid pressure and intubating stylet Insertion site: oral Blade type: Tim Blade size: 4 Cormack-Lehane (direct): grade I - full view of glottis Cuff inflated with: air ETT to lips: 22 cm Placement verified by: auscultation and CO2 detection Airway secured with: silk tape Number of attempts: 1 * Anesthesia Preprocedure Evaluation - Cindy Spence MD PhD - 06/29/2020 8:25 AM CDT Images from the original note were not included. 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 NO PHYSICALEXAM was performed at the time of initial assessment. A physical exam may be added to this note anddocumented below. Anesthesia Evaluation Abel Browne is a 60 y.o. male Procedure(s): CREATION ARTERIOVENOUS FISTULA - ARM ARTERIOVENOUS GRAFT - UPPER EXTREMITY Pre-Op Diagnosis Codes: * End-stage renal disease (ESRD) ([facility]) [N18.6] HISTORY HPI 60 y/o male w/ symptomatic ESRD undergoing evaluation prior to AV fistula creation. Other medical history includes [place], HTN, and COPD/asthma. Past Medical History Information obtained from: patient and chart. Neurological Pertinent negatives: seizures; CVA/stroke and TIA Cardiovascular + Hypertension (on Metoprolol, Norvasc ) Typical systolic BP - 130 Typical diastolic BP - 70 + [place] ([place] 2018 s/p catheterization - no CAD and presumed coronary spasm event in distribution of LAD- sx at time of [place] were indigestion type pain for ~24 hours ) Number of KY's: 1. Date of last [place]: 2017. + Current valvular disease (per stress echo 04/11, LVEF 71%) - MR - mild; + Other arrhythmia (SB 50s - pt reports hx of bradycardia) - bradycardia. Pertinent negatives: CAD ; atrial fibrillation; pacemaker/ICD; PVD; DVT/PE; negative for CHF and hyperlipidemia Comments: F/b Dr. Nay Sh[place] w/ presumed history of coronary spasm per cardiology documentation. Per cardiology note 02/2020 in [facility] The patient was seen by myself [...] at that time ?? Respiratory + COPD Rescue inhaler use: never. Hospitalizations/ER in the last year: 0. Most recent exacerbation: none recalled . FEV1 % predicted: 53%. + Asthma Pertinent negatives: sleep apnea (SHAHEEN); no O2 [...] 03/2020 per epic) + History of anemia (ACD) Pertinent negatives: history of thrombocytopenia and history of Emperatriz positive Gastrointestinal + GERD (on Omeprazole ) - on daily therapy. Symptoms < 1x/week. 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 Strickland) - ESRD Pertinent negatives: dialysis Comments: S/p R nephrectomy 05/2020 Musculoskeletal/Pain + Chronic pain (low back - on Flexeril and PRN Freeport - reports no use of Freeport in months ) Endocrine / Other Pertinent [...] breathing. Review of Systems + chest pain (last episode 6 weeks ago [place] - felt like spasm in epigastric region. Resolved in 3-4 hours. Seen at OSH ED. NO nitro use since 2018 - negative stress 03/2020) + dizziness (intermittent w/ quick position changes - chronic and unchanged ) + chronic pain (low back - on Flexeril and PRN Freeport - reports no use of Freeport in months ) + numbness/tingling (bilateral hands/UEs intermittent ) + heartburn (worsening attributed to PKD ) + dysphagia (esophagus twists at times - intermittent ) + dentures/partials (upper denture) Pertinent negatives: productive cough; wheezing; SOB; recent cold/flu; fever; palpitations; orthopnea; pedal edema; PND; previous transfusion; melena/hematochezia; easy bruising; bleeding [...] Patient instructions were provided via phone and in writing sent via [employer] mail. Patient verbalized understanding of preoperative plan. Obstructive sleep apnea (SHAHEEN) screening status is Preliminary SHAHEEN screening not complete, pending neck circumference measurement on day of surgery. Blood bank needs for day of procedure: No type and screen needed Pending labs/tests include: N/A Labs reviewed from 06/17/20 CBC with H/H 11.3/36.1 BMP with Na 140, K 4.7, creatinine 5.98 ISTAT labs ordered DOS. Patient with No known exposure to COVID19 and no concerning symptoms of COVID19. Plan for pre-procedure COVID19 testin07/07/20 at [facility]. Reports episode of spasm like CP ~ 6 weeks ago and he was evaluated at hospital in [facility] - felt like spasm in epigastric region. Denies use of nitroglycerin in >2 years. Patient had negative stress test 03/2020 in epic. ECG at OSH 04/2020 shows SB. The patient is on aspirin therapy and is scheduled for cardiac/vascular surgery where aspirin is routinely continued for periprocedural benefit. TPAP complete. Preoperative evaluation performed by Idania Sousa NP on 06/29/20 at 8:45 AM. . Patient Active Problem List Diagnosis ??? Other chest pain ??? End stage renal disease (CMS/HCC) ??? Polycystic kidney disease, autosomal dominant ??? Stage 4 chronic kidney disease (CMS/HCC) ??? Pre-transplant evaluation for kidney transplant ??? Secondary hyperparathyroidism (CMS/HCC) ??? Autosomal dominant polycystic kidney disease ??? Acute postoperative abdominal pain ??? End-stage renal disease (ESRD) (CMS/HCC) Past Medical History: Diagnosis Date ??? Anemia [...] Med List Status: Nurse Complete Set By: Nery Pruitt RN at 06/27/2020 8:55 AM Taking? Last Dose Start Date End Date Provider acetaminophen 500 mg capsule 06/18/20 -- Belkys Mccormick MD Take 1 capsule (500 mg total) by mouth every 6 (six) hours as needed for pain for up to 30 doses amLODIPine (NORVASC) 5 mg tablet 12/20/19 -- Donaldo Tee MD TAKE ONE TABLET BY MOUTH DAILY Patient taking differently: Take 5 mg by mouth every morning Notes: ` aspirin 81 mg tablet -- -- Historical ProviderMD bisacodyL (DULCOLAX) 10 mg suppository 06/18/20 -- Belkys Mccormick MD Insert 0.5 suppositories (5 mg total) into the rectum daily as needed for constipation for up to 10doses cyanocobalamin (Vitamin B-12) 1,000 mcg tablet -- -- Historical Provider, cyclobenzaprine (FLEXERIL) 5 mg tablet 06/18/20 -- Belkys Mccormick MD Take 1 tablet (5 mg total) by mouth 3 (three) times a day as needed for muscle spasms for up to 20 doses HYDROcodone-acetaminophen (NORCO) 5-325 mg per tablet 06/21/20 -- Pedro Mccormick MD Take 1 tablet by mouth every 6 (six) hours as needed (breakthrough pain) Patient taking differently: Take 1 tablet by mouth as needed (breakthrough pain) lactulose solution 10 gram/15mL 02/22/20 -- Historical Provider, metoprolol (LOPRESSOR) 25 mg tablet 12/20/19 -- Donaldo Tee MD TAKE ONE TABLET BY MOUTH TWICE A DAY Patient taking differently: Take 25 mg by mouth 2 (two) times a day nitroglycerin (NITROSTAT) 0.4 mg SL tablet 09/30/18 -- Historical Provider, omeprazole (PriLOSEC) 40 mg capsule 11/27/18 -- Historical Provider, polyethylene glycol (MIRALAX) 17 gram packet () 06/18/20 06/28/20 Belkys Mccormick MD Take 1 packet (17 g total) by mouth 2 (two) times a day for 20 doses Patient taking differently: Take 17 g by mouth as needed for constipation sennosides (SENNA ORAL) -- -- Historical Provider, tamsulosin (FLOMAX) 0.4 mg extended release capsule 06/18/20 07/18/20 Belkys Mccormick MD Take 1 capsule (0.4 mg total) by mouth daily with dinner Patient taking differently: Take 0.4 mg by mouth every morning No current facility-administered medications for this encounter. Current Outpatient Medications: ??? acetaminophen 500 mg capsule ??? amLODIPine (NORVASC) 5 mg tablet ??? aspirin 81 mg tablet ??? bisacodyL (DULCOLAX) 10 mg suppository ??? cyanocobalamin (Vitamin B-12) 1,000 mcg tablet ??? cyclobenzaprine (FLEXERIL) 5 mg tablet ??? HYDROcodone-acetaminophen (NORCO) 5-325 mg per tablet ??? lactulose solution 10 gram/15mL ??? metoprolol (LOPRESSOR) 25 mg tablet ??? nitroglycerin (NITROSTAT) 0.4 mg SL tablet ??? omeprazole (PriLOSEC) 40 mg capsule ??? sennosides (SENNA ORAL) ??? tamsulosin (FLOMAX) 0.4 mg extended release capsule Social History Tobacco Use Smoking Status Former [...] Relevant diagnostics: ECG(s): OSH 05/15/2020: SB, 53 bpm ?? 04/04/2020: SB, 52 bpm ?? Stress test(s): 04/11/2020 DSE: Impression: ??Maximal Dobutamine Stress Echocardiogram, NEGATIVE for myocardial ischemia.Normal global LV Myocardial longitudinal function and LV strain pattern. LV Global Function: Normal left ventricular systolic Function. Baseline Echo Comments: Normal LV+RV ??normal systolic function - No wall abnormalities, Mild LVH. Normal LA+RA size. EF 71%. ??Doppler/CF Comments: Mild MR. ? PFT(s): 04/04/2020: ?? FVC PRED 0.05 - 9.99 Liters 4.91 [...] ?? FEV1/FVC PRE 0 - 12 % 47 ?? IMPRESSION: There is a moderately severe obstructive ventilatory defect. There is air trapping and hyperinflation. There is no impairment of alveolar gas exchange by DLCO. ? 6 min walk Interpretation: Breathing room air, SpO2 is normal at [...] the upper extremities. ?? Other: ?? CXR 04/04/2020: IMPRESSION: There are no prior chest radiographs at [facility] for comparison. The heart and mediastinal contours are normal. ??There is no mass or consolidation. ??There is no lymphadenopathy. ??There are no pleural effusions. ??There is no pneumothorax. There is old granulomatous disease. ?? CT abd/pelvis 04/04/2020: IMPRESSION: ?? 1. ??Minimal abdominal aortic and right [...] Imaging In 12 Mon[address] with noncontrast chest CT. PT: No results found for requested labs within last 720 hours. INR: No results found for requested labs within last 720 hours. APTT: No results found for requested labs within last 720 hours. Hgb A1C: No results found for requested labs within last 720 hours. CBC RBC: 06/17/2020: 3.71 M/cumm* RDW: No results found for requested labs within last 720 hours. MCHC: 06/17/2020: 31.3 g/dL* MCH: 06/17/2020: 30.5 pg MCV: 06/17/2020: 97.3 fL* Hct: 06/17/2020: 36.1 %* Hgb: 06/17/2020: 11.3 g/dL* WBC: 06/17/2020: 8.0 K/cumm MPV: 06/17/2020: 9.9 fL Platelets: 06/17/2020: 258 K/cumm RDW CV: 06/17/2020: 13.3 % RDW Sd: 06/17/2020: 47.3 fL BMP Glucose: 06/17/2020: 104 mg/dL Calcium: 06/17/2020: 8.8 mg/dL Sodium: 06/17/2020: 140 mmol/L Potassium: 06/17/2020: 4.7 mmol/L CO2: 06/17/2020: 21 mmol/L* Chloride: 06/17/2020: 106 mmol/L BUN: 06/17/2020: 71 mg/dL* Creatinine: 06/17/2020: 5.49 mg/dL* Luis Enrique index score: 100 DOS Physical Exam Medical history, medications, and allergies reviewed. Attestation: I endorse the findings of the anesthesia pre-evaluation assessment dated: 07/29/2020. Airway Exam: Mallampati: II Cervical ROM: FROM Cardiovascular Exam: Rate: regular Rhythm: regular Current state: Patient's current state is cooperative and interactive. Anesthesia Plan ASA 3 My patient is approved for the Anesthesia Controlled Medication protocol when under care of a [employer] LEAD Planned anesthesia: General Team communication plan: oral ET tube Induction: Induction: intravenous. Postoperative Plan: Postoperative administration opioids intended. No postoperative mechanical ventilation intended. Patient's planned disposition post procedure is Outpatient. Planned trial extubation. Informed Consent: Discussed plan with resident. Anesthesia plan and risks discussed with patient. Consent and Attending signature: I and/or my designee have discussed the anesthesia plan, benefits, possible alternatives, parental presence at time of induction (if indicated), and clinically relevant risks that may include dental injury, unintentional awareness, and/or other complications. The patient and/or parent/legal guardian understand, and agree to proceed. All questions answered. documented in this encounter Plan of Treatment Scheduled Procedures Name Priority Associated Diagnoses Date/Ti me TRANSPLANT KIDNEY ESRD (end stage renal disease) ([facility]) documented as of this encounter Procedures Procedure Name Priority Date/Time Associated Diagnosis Comments ANESTHESIA INTUBATION Routine 08/01/2020 9:05 AM CDT documented in this encounter Results * Airway (08/01/2020 9:05 AM CDT) Narrative Vanita Flores MD - 08/01/2020 9:05 AM CDT Vanita Flores MD ? 08/01/2020 ??9:06 AM Airway Patient location: OR Urgency: elective Date/time: 08/01/2020 8:37 AM Indications for airway management: anesthesia Difficult airway: no Staff: Supervising provider: Cindy Spence MD PhD Placed by: Resident: Vanita Flores MD Emergent airway documentation: Risks and benefits discussed: yes Consent obtained: yes Consent given by: patient Airway prep: Preoxygenated: yes Patient position: sniffing Mask difficulty assessment: 1 - vent by mask Spontaneous ventilation during airway: absent Sedation level during airway: GA Final airway details: Final airway type: endotracheal airway Tube type: ETT ETT size: 8.0 mm Cuffed: yes Technique used for successful ETT placement: direct laryngoscopy Devices/Methods used in placement: cricoid pressure and intubating stylet Insertion site: oral Blade type: Tim Blade size: 4 Cormack-Lehane (direct): grade I - full view of glottis Cuff inflated with: air ETT to lips: 22 cm Placement verified by: auscultation and CO2 detection Airway secured with: silk tape Number of attempts: 1 us Cindy Spence MD PhD ANESTHESIA ORDERABLES Final R esult documented in this encounter Visit Diagnoses Not on filedocumented in this encounter Administered Medications Inactive Administered Medications - up to 3 most recent administrations Medication Order MAR Action Action Date Dose Rate Site albuterol HFA (PROVENTIL HFA,VENTOLIN HFA,PROAIR HFA) 90 mcg/actuation inhaler inhalation, As needed, Starting on Sat08/01/20 at 0843, Anesthesia Intra-op Given 08/01/2020 8:44 AM CDT 5 puffs Given 08/01/2020 8:43 AM CDT 5 puffs ceFAZolin (ANCEF) 2,000 mg/20 mL in sterile water (premix) 2,000 mg 2,000 mg, intravenous, at 400 mL/hr, Administer over 3 Minutes, Once, On Sat08/01/20 at 0645, For 1 dose, Pre-Op, Administer within 60 minutes of incision., Indications: Prophylaxis, SurgicalIndications:Proph ylaxis, Surgical Given 08/01/2020 8:50 AM CDT 2,000 mg dexAMETHasone (DECADRON) 4 mg/mL injection Administer over 2 Minutes, As needed, Starting on Sat08/01/20 at 0858, Anesthesia Intra-op Given 08/01/2020 8:58 AM CDT 4 mg fentaNYL (SUBLIMAZE) preservative free injection As needed, Starting on Sat08/01/20 at 0833, Anesthesia Intra-op Given 08/01/2020 8:33 AM CDT 100 mcg glycopyrrolate (ROBINUL) injection intravenous, Administer over 1 Minutes, As needed, Starting on Sat08/01/20 at 0937, Anesthesia Intra-op Given 08/01/2020 9:37 AM CDT 0.8 mg heparin 1,000 unit/mL preservative free injection As needed, Starting on Sat08/01/20 at 0904, Anesthesia Intra-op Given 08/01/2020 9:04 AM CDT 3,000 Units lidocaine (XYLOCAINE) 20 mg/mL (2 %) preservative free injection As needed, Starting on Sat08/01/20 at 0835, Anesthesia Intra-op Given 08/01/2020 8:35 AM CDT 100 mg neostigmine (PROSTIGMIN) injection intravenous, Administer over 3 Minutes, As needed, Starting on Sat08/01/20 at 0938, Anesthesia Intra-op Given 08/01/2020 9:38 AM CDT 4 mg ondansetron (ZOFRAN) injection intravenous, Administer over 2 Minutes, As needed, Starting on Sat08/01/20 at 0949, Anesthesia Intra-op Given 08/01/2020 9:49 AM CDT 4 mg phenylephrine (GABRIELLA-SYNEPHRINE) 0.5 mg/5 mL (100 mcg/mL) in sodium chloride 0.9% (premix) intravenous, As needed, Starting on Sat08/01/20 at 0836, Anesthesia Intra-op Given 08/01/2020 8:36 AM CDT 100 mcg phenylephrine (GABRIELLA-SYNEPHRINE) 5 mg/50 mL (100 mcg/mL) in sodium chloride 0.9% (premix) Continuous PRN, Starting on Sat08/01/20 at 0840, Anesthesia Intra-op Rate/Dose Change 08/01/2020 9:09 AM CDT 0.9 mcg/kg/min 51.9 mL/hr Rate/Dose Change 08/01/2020 9:04 AM CDT 0.6 mcg/kg/min 34. 6 mL/hr Rate/Dose Change 08/01/2020 8:57 AM CDT 1 mcg/kg/min 57.7 mL/hr propofoL (DIPRIVAN) IV intravenous, As needed, Starting on Sat08/01/20 at 0835, Anesthesia Intra-op Given 08/01/2020 8:36 AM CDT 50 mg Given 08/01/2020 8:35 AM CDT 150 mg rocuronium (ZEMURON) injection intravenous, As needed, Starting on Sat08/01/20 at 0836, Anesthesia Intra-op Given 08/01/2020 8:36 AM CDT 60 mg sodium chloride 0.9% infusion 30 mL/hr, intravenous, Continuous, Starting on Sat08/01/20 at 0645, Pre-Op New Bag 08/01/2020 8:27 AM CDT documented in this encounter Care Teams Check And Transfer Beader Relationship Specialty Start Date End Date Gerardo Shah MD PCP - General Internal Medicine 09/30/18 Suzette Strickland MD [address] [facility] [address] [place] [address] Referring Physician Nephrology 02/15/20 Rita Tapia, RN [address] [place] [address] Registered Nurse Test Man 02/15/20 documented as of this encounter
--- OUTSIDE RECORDS SUMMARY | 2024-10-16 06:40 | XMS_ITS | Encounter Summary ---
Author Organization [facility] Healthcare Address [address] [place] [address] Care Team Providers Care Blood Bank Specialist Name Role Phone Gerardo Shah MD Primary Care Provider [phone] Suzette Strickland MD Unavailable [phone] Rita Tapia RN Unavailable [phone] Encounter Details Date Type Department Care Team (Latest Contact Info) Description 07/07/2020 Telephone Urology Miranda Mayer, MINING SPECULATOR [address] 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 Please schedule f/u in 1-2 weeks for wound check Thank you, Miranda documented in this encounter Plan of Treatment Scheduled Procedures Name Priority Associated Diagnoses Date/Ti me TRANSPLANT KIDNEY ESRD (end stage renal disease) ([facility]) documented as of this encounter Visit Diagnoses Not on filedocumented in this encounter Care Teams Blood Bank Specialist Relationship Specialty Start Date End Date Gerardo Shah MD PCP - General Internal Medicine 09/30/18 Suzette Strickland MD [address] [facility] [address] [place] [address] Referring Physician Nephrology 02/15/20 Rita Tapia, RN [address] [place] [address] Registered Nurse Media Specialist 02/15/20 documented as of this encounter
--- OUTSIDE RECORDS SUMMARY | 2024-10-16 06:40 | XMS_ITS | Encounter Summary ---
Author Organization [facility] Healthcare Address [address] [place] [address] Care Team Providers Care Combination Machine Tool Operator Name Role Phone Gerardo Shah MD Primary Care Provider [phone] Suzette Strickland MD Unavailable [phone] Rita Tapia RN Unavailable [phone] Encounter Details Date Type Department Care Team (Late st Contact Info) Description 08/02/2020 Telephone [facility] Transplant Kidney [address] [facility] [address] [id number] [place], [place] [id number] Rita Tapia, RN [address] [place], [place] [id number] Social History Tobacco Use Types Packs/Day Years Used Date Smoking Tobacco: Former Cigarettes 1.5 40 0 04/11/1978 - 2017 Smokeless Tobacco: Never Alcohol Use Standard Drinks/Week Comments Yes 2 (1 standard drink = 0.6 oz pur e alcohol) Sex and Gender Information Value Date Recorded Sex Assigned at Not on file 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 Patient???s chart was signed off by Dr. Timmons and Dr. Pruitt for kidney transplant Please list patient ON HOLD pending finance Please DONT mail KDPI >85% consent information No to KDPI >85% donor No to Hep B core positive donors All Patients being Listed: Diabetes: no Previous Transplants: none Antibodies Screen: None detected * Telephone Encounter - Rita Tapia RN - 08/02/2020 1:18 PM CDT I called pt. and let him know he was signed off at today's meeting. I let him know some of his testing will have to be repeated if it is a year old while on the waiting list and I will keep track of that and let him know when he needs any testing repeated. We discussed that he needs to get monthly cytoscreens drawn and sent to us. We discussed if he gets hospitalized, gets an infection or any blood products that he needs to call us with an update as this is important information related to transplant. We discussed if he is going to travel out of town to let us know any additional phone numbers where he can be reached in case we have a kidney for him. We also discussed that he needs to update us if he has any changes in address, phone numbers or any changes in insurance coverage. Phone highlights On hold until finance approves Monthly cytoscreens Hosp., infection, transfusions, out of town, get new number, address and insurance coverage documented in this encounter Plan of Treatment Scheduled Procedures Name Priority Associated Diagnoses Date/Ti me TRANSPLANT KIDNEY ESRD (end stage renal disease) ([facility]) documented as of this encounter Visit Diagnoses Not on filedocumented in this encounter Care Teams Combination Machine Tool Operator Relationship Specialty Start Date End Date Gerardo Shah MD PCP - General Internal Medicine 09/30/18 Suzette Strickland MD [address] [facility] [address] [place] [address] Referring Physician Nephrology 02/15/20 Rita Tapia, RN [address] [place] [address] Registered Nurse Laboratory Technologist 02/15/20 documented as of this encounter
--- OUTSIDE RECORDS SUMMARY | 2024-10-16 06:40 | XMS_ITS | Encounter Summary ---
Author Organization [facility] Healthcare Address [address] [place] [address] Care Team Providers Care Smooth And Burr Worker Composites Name Role Phone Gerardo Shah MD Primary Care Provider [phone] Suzette Strickland MD Unavailable [phone] Rita Tapia RN Unavailable [phone] Encounter Details Date Type Department Care Team (Late st Contact Info) Description 06/28/2020 Telephone [facility] Transplant Kidney [address] [facility] [address] [id number] [place], [place] [phone] Rita Tapia RN [address] [place], [place] [id number] Social History Tobacco Use Types Packs/Day Years Used Date Smoking Tobacco: Former Cigarettes 1.5 40 0 04/11/1978 - 2017 Smokeless Tobacco: Never Alcohol Use Standard Drinks/Week Comments Yes 2 (1 standard drink = 0.6 oz pur e alcohol) Sex and Gender Information Value Date Recorded Sex Assigned at Not on file 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 He said he had one in the spring at [facility]. I told him I would send to them for the records. documented in this encounter Plan of Treatment Scheduled Procedures Name Priority Associated Diagnoses Date/Ti me TRANSPLANT KIDNEY ESRD (end stage renal disease) ([facility]) documented as of this encounter Visit Diagnoses Not on filedocumented in this encounter Care Teams Smooth And Burr Worker Composites Relationship Specialty Start Date End Date Gerardo Shah MD PCP - General Internal Medicine 09/30/18 Suzette Strickland MD [address] [facility] [address] [place] [address] Referring Physician Nephrology 02/15/20 Rita Tapia, RN [address] [place] [address] Registered Nurse Bar Machine Operator 02/15/20 documented as of this encounter
--- OUTSIDE RECORDS SUMMARY | 2024-10-16 06:40 | XMS_ITS | Encounter Summary ---
Author Organization [facility] Healthcare Address [address] [place] [address] Care Team Providers Care Vice President Commercial Bank Name Role Phone Gerardo Shah MD Primary Care Provider [phone] Suzette Strickland MD Unavailable [phone] Rita Tapia RN Unavailable [phone] Encounter Details Date Type Department Care Team (Late st Contact Info) Description 07/01/2020 Telephone [facility] Transplant Kidney [address] [facility] [address] [phone] [place], [place] [phone] Rita Tapia RN [address] [place], [place] [id number] Social History Tobacco Use Types Packs/Day Years Used Date Smoking Tobacco: Former Cigarettes 1.5 40 0 04/11/1978 - 2017 Smokeless Tobacco: Never Alcohol Use Standard Drinks/Week Comments Yes 2 (1 standard drink = 0.6 oz pur e alcohol) Sex and Gender Information Value Date Recorded Sex Assigned at Not on file 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 I told him I had the MRI so now he needs a renal ultrasound. He is coming to [place] on 07/11 for fistula placement and wanted to know if I could schedule it then. I called ultrasound and the first available appointment they have is 07/22/20. Attempted to call patient back with this information but had to leave a message. Will try to call again later. documented in this encounter Plan of Treatment Scheduled Procedures Name Priority Associated Diagnoses Date/Ti me TRANSPLANT KIDNEY ESRD (end stage renal disease) (CMS/HCC) documented as of this encounter Visit Diagnoses Diagnosis ESRD (end stage renal disease) (CMS/HCC) ([facility])- Primary End stage renal disease documented in this encounter Care Teams Vice President Commercial Bank Relationship Specialty Start Date End Date Gerardo Shah MD PCP - General Internal Medicine 09/30/18 Suzette Strickland MD [address] [facility] [address] [place] [address] Referring Physician Nephrology 02/15/20 Rita Tapia, RN [address] [place] [address] Registered Nurse Panel Monitor 02/15/20 documented as of this encounter
--- OUTSIDE RECORDS SUMMARY | 2024-10-16 06:40 | XMS_ITS | Encounter Summary ---
Author Organization [facility] Healthcare Address [address] [place] [address] Care Team Providers Care Visual And Stock Associate Name Role Phone Gerardo Shah MD Primary Care Provider [phone] Suzette Strickland MD Unavailable [phone] Rita Tapia RN Unavailable [phone] Encounter Details Date Type Department Care Team (Late st Contact Info) Description 07/01/2020 Documentation [facility] Transplant Kidney [address] [address] [address] [phone] [place] [address] Erica Rosales Social History Tobacco Use Types Packs/Day Years Used Date Smoking Tobacco: Former Cigarettes 1.5 40 0 04/11/1978 - 2017 Smokeless Tobacco: Never Alcohol Use Standard Drinks/Week Comments Yes 2 (1 standard drink = 0.6 oz pur e alcohol) Sex and Gender Information Value Date Recorded Sex Assigned at Not on file 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 Gender Identity Not on file Sexual Orientation Straight 05/03/2020 10 :36 AM CDT documented as of this encounter Progress Notes * Erica Rosales - 07/01/2020 4:08 PM CDT Mailed schedule and map documented in this encounter Plan of Treatment Scheduled Procedures Name Priority Associated Diagnoses Date/Ti me TRANSPLANT KIDNEY ESRD (end stage renal disease) ([facility]) documented as of this encounter Visit Diagnoses Not on filedocumented in this encounter Care Teams Visual And Stock Associate Relationship Specialty Start Date End Date Gerardo Shah MD PCP - General Internal Medicine 09/30/18 Suzette Strickland MD [address] [facility] [address] [place] [address] Referring Physician Nephrology 02/15/20 Rita Tapia, RN [address] [place] [address] Registered Nurse Consulting Systems Engineer 02/15/20 documented as of this encounter
--- OUTSIDE RECORDS SUMMARY | 2024-10-16 06:41 | XMS_ITS | Encounter Summary ---
Author Organization [facility] Healthcare Address [address] [place] [address] Care Team Providers Care Field Training Agent Name Role Phone Gerardo Shah MD Primary Care Provider [phone] Suzette Strickland MD Unavailable [phone] Rita Tapia RN Unavailable [phone] Encounter Details Date Type Department Care Team (Late st Contact Info) Description 04/04/2020 11:55 AM CDT Lab [facility] ([facility]) [address] [place] [address] [phone] End stage renal disease ([facility]) Social History Tobacco Use Types Packs/Day Years Used Date Smoking Tobacco: Former Cigarettes Q uit: 2018 Smokeless Tobacco: Never Alcohol Use Standard Drinks/Week Comments No 0 (1 standard drink = 0.6 oz pur e alcohol) Sex and Gender Information Value Date Recorded Sex Assigned at Not on file Legal Sex Male 4:54 AM [employer] Gender Identity Not on file Sexual Orientation Straight 05/03/2020 10 :36 AM CDT documented as of this encounter Plan of Treatment Scheduled Procedures Name Priority Associated Diagnoses Date/Ti me TRANSPLANT KIDNEY ESRD (end stage renal disease) ([facility]/HCC) documented as of this encounter Procedures Procedure Name Priority Date/Time Associated Diagnosis Comments URINALYSIS AND REFLEX TO MICROSCOPIC Routine 04/04/2020 9:42 AM CDT End stage renal disease ([facility]) URINALYSIS, MICROSCOPIC ONLY Routine 04/04/2020 9:42 AM CDT End stage renal disease (CMS/HCC) LR HLA TYPING (CLASS I AND CLASS II) Routine 04/04/2020 9:10 AM CDT End stage renal disease (CMS/HCC) HLA ANTIBODY SCREEN BY PRA Routine 04/04/2020 9:10 AM CDT End stage renal disease (CMS/HCC) HLA CLASS I DNA (ABC) RECIPIENT Routine 04/04/2020 9:10 AM CDT End stage renal disease (CMS/HCC) HLA ANTIBODY SCREEN BY SINGLE ANTIGEN Routine 04/04/2020 9:10 AM CDT End stage renal disease (CMS/HCC) HLA ANTIBODY SCREEN BY SINGLE ANTIGEN Routine 04/04/2020 9:10 AM CDT End stage renal disease (CMS/HCC) HLA ANTIBODY SCREEN - SAB (CLASS I AND CLASS II) Routine 04/04/2020 9:10 AM CDT End stage renal disease (CMS/HCC) ABO/RH Routine 04/04/2020 9:10 AM CDT End stage renal disease (CMS/HCC) REFLEX HEPATITIS C RNA Routine 0 8:59 AM CDT End stage renal disease (CMS/HCC) DIFFERENTIAL AUTO Routine 04/04/2020 8:5 9 AM CDT End stage renal disease (CMS/HCC) IRON PROFILE W/ IBC Routine 04/04/2020 8 :59 AM CDT End stage renal disease (CMS/HCC) CMV, IGG Routine 04/04/2020 8:59 AM CDT End stage renal disease (CMS/HCC) CBC WITH AUTO DIFFERENTIAL Routine 04/04/2020 8:59 AM CDT End stage renal disease (CMS/HCC) HEPATITIS C ANTIBODY Routine 04/04/2020 8:59 AM CDT End stage renal disease (CMS/HCC) LEANDRO SERRATO VIRUS VCA, IGG Routine 04/04/2020 8:59 AM CDT End stage renal disease (CMS/HCC) HEPATITIS B CORE ANTIBODY, TOTAL Routine 04/04/2020 8:59 AM CDT End stage renal disease (CMS/HCC) PROTEIN, URINE, RANDOM Routine 0 8:59 AM CDT End stage renal disease (CMS/HCC) CREATININE, URINE, RANDOM Routine 04/04/2020 8:59 AM CDT End stage renal disease (CMS/HCC) HSV 2 ANTIBODY, IGG Routine 04/04/2020 8 :59 AM CDT End stage renal disease (CMS/HCC) HSV 1 ANTIBODY, IGG Routine 04/04/2020 8 :59 AM CDT End stage renal disease (CMS/HCC) RPR Routine 04/04/2020 8:59 AM CDT End stage renal disease (CMS/HCC) HEPATITIS B SURFACE ANTIBODY (IMMUNE STATUS) Routine 04/04/2020 8:59 AM CDT End stage renal disease (CMS/HCC) HEPATITIS B SURFACE ANTIGEN Routine 04/04/2020 8:59 AM CDT End stage renal disease (CMS/HCC) APTT Routine 04/04/2020 8:59 AM CDT End stage renal disease (CMS/HCC) PROTIME-INR Routine 04/04/2020 8:59 AM CDT End stage renal disease (CMS/HCC) VARICELLA ZOSTER ANTIBODY, IGG Routine 04/04/2020 8:59 AM CDT End stage renal disease (CMS/HCC) URIC ACID Routine 04/04/2020 8:59 AM CDT End stage renal disease (CMS/HCC) PHOSPHORUS Routine 04/04/2020 8:59 AM CDT End stage renal disease (CMS/HCC) PTH Routine 04/04/2020 8:59 AM CDT End stage renal disease (CMS/HCC) GAMMA GT Routine 04/04/2020 8:59 AM CDT End stage renal disease (CMS/HCC) FERRITIN Routine 04/04/2020 8:59 AM CDT End stage renal disease (CMS/HCC) LIPID PANEL Routine 04/04/2020 8:59 AM CDT End stage renal disease (CMS/HCC) COMPREHENSIVE METABOLIC PANEL Routine 04/04/2020 8:59 AM CDT End stage renal disease (CMS/HCC) documented in this encounter Results * Urinalysis, microscopic only (04/04/2020 9:42 AM CDT) WBC, ur 0-5 0 - 5 /HPF [facility] RBC, ur 0-2 0 - 2 /HPF [facility] Urine 04/04/2020 9:42 AM CDT 04/04/2020 9:54 AM CDT us Alonso Pruitt MD LAB URINE ORDERABLES Final Resu lt [facility] Department [place] [address] * (ABNORMAL) Urinalysis reflex to microscopic (04/04/2020 9:42 AM CDT) Color, ur Straw Yellow [facility] Clarity, ur Clear Clear [facility] Specific gravity, ur 1.012 1.010 - 1.025 [facility] pH, urine 6 [facility] Protein, ur ql 1+(A) Negative [facility] Glucose, ur ql Negative Negative [facility] Ketones, ur Negative Negative [facility] Bilirubin, ur Negative Negative [facility] Blood, ur Negative Negative [facility] Urobilinogen, ur <2.0 <2.0 mg/dL [facility] Nitrite, ur Negative Negative [facility] Leukocyte esterase, ur Negative Negative [facility] UA reflex comment Reflex to microscopic UA will be performed. [facility] Urine 04/04/2020 9:4 2 AM CDT 04/04/2020 9:54 AM CDT [facility]ative [facility] - 04/04/2020 10:00 AM CDT ?? Urine pH is affected by diet, medications, systemic acid-base disturbances, and renal tubular function. ??pH may affect urinary stone formation. ??For example, urine pH below 6.0 may help reduce the tendency for calcium phosphate stones and pH greater than 6.0 may reduce the tendency for uric acid stone formation. Source: [facility]. Last revised 11-07-2017 Alonso Pruitt MD LAB URINE ORDERABLES Final Resu lt Performing Organization Address City/[facility]/ZIP Co de Phone Number [facility] [place] [address] * Collection Task for HLA Antibody Screen (04/04/2020 9:10 AM CDT) Pathologist [facility] HLA Antibody Screen By Single Antigen Received [facility] Blood specimen (specimen) 04/04/2020 9:10 AM CDT 04/04/2020 12:30 PM CDT Alonso Pruitt MD LAB BLOOD ORDERABLES Final Resu lt Performing Organization Address City/[facility]/ZIP Co de Phone Number [facility] [place] [address] * HLA Antibody Screen - SAB (Class I and Class II) (04/04/2020 9:10 AM CDT) Class I Treatment EDTA [facility] Class I Dilution 1:1 [facility] Class I Tested Date 04/04/2020 [facility] Class I Result Negative [facility] Class I CPRA 0 [facility] Class I Low Risk B37 [facility] Class II Treatment EDTA [facility] Class II Dilution 1:1 [facility] Class II Tested Date 04/04/2020 [facility] Class II Result Negative [facility] Class II CPRA 0 [facility] Class II Low Risk DP1, DP11 [facility] Blood specimen (specimen) 04/04/2020 9:10 AM CDT 04/05/2020 9:48 AM CDT Narrative [facility] - 04/05/2020 9:48 AM CDT Single-antigen HLA antibody screen is performed on serum samples using a method developed and validated by the [facility] HLA laboratory based on an FDA-approved IVD kit ([employer] Single-Antigen, [employer], [place], [place]). All patient serum samples are pretreated with EDTA before the screen to prevent complement interference. Additional serum treatments, such as adsorption and DTT treatment, may be performed as indicated. ??Interpretive comments: Low risk: MFI [id number]. Moderate risk: MFI [id number]. Increased risk: MFI >/= 5000. The presence [...] antigens to avoid. Testing performed at the [facility], [facility] [address], [address]th floor, [place], [address]. [place] # [id number]. Gracie Rubi M.D., Ph.D., Associate HLA Executive Secretary Social Welfare Harman Flores M.D., Ph.D., HLA Executive Secretary Social Welfare Stan Patel M.D., [employer], [facility] Clinical Laboratories Current methodology and interpretive comments last revised on 01/05/2020. Alonso Pruitt MD LAB BLOOD ORDERABLES Final Resu lt Performing Organization Address [facility] Co de Phone Number [facility] * Collection Task for HLA Antibody Screen (04/04/2020 9:10 AM CDT) Pathologist [facility] HLA Antibody Screen By Single Antigen Received [facility] Blood specimen (specimen) 04/04/2020 9:10 AM CDT 04/04/2020 12:30 PM CDT Alonso Pruitt MD LAB BLOOD ORDERABLES Final Resu lt Performing Organization Address [facility] Co de Phone Number [facility] [place] [address] * Collection Task for HLA Typing 1 (04/04/2020 9:10 AM CDT) Pathologist [facility] HLA Class I DNA (ABC) Recipient Received [facility] Blood specimen (specimen) 04/04/2020 9:10 AM CDT 04/04/2020 12:30 PM CDT Alonso Pruitt MD LAB BLOOD ORDERABLES Final Resu lt Performing Organization Address [facility] Co de Phone Number [facility] [place] [address] * LR HLA Typing (Class I and Class II) (04/04/2020 9:10 AM CDT) r-SSO [facility] A First Allele A*02 [facility] A Second Allele A*29 [facility] A First Serological Equivalent A2 H[facility] A Second Serological Equivalent A29 [facility] B First Allele B*44 [facility] B Second Allele B*44 [facility] B First Serological Equivalent B44 [facility] B Second Serological Equivalent B44 [facility] Bw First Serological Equivalent Bw4 [facility] Bw Second Serological Equivalent Bw4 [facility] C First Allele C*05 [facility] C Second Allele C*16 H[facility] C First Serological Equivalent Cw5 [facility] C Second Serological Equivalent Cw16 [facility] DRB1 First Allele DRB1*01 [facility] DRB1 Second Allele DRB1*07 H[facility]OT[facility] DRB1 First Serological Equivalent DR1 [facility]OT[facility] DRB1 Second Serological Equivalent DR7 [facility]OT[facility]AC DRB4 First Allele DRB4*01 [facility] DRB4 First Serological Equivalent DR53 [facility] DQA1 First Allele DQA1*01 [facility] DQA1 Second Allele DQA1*02 [facility] DQB1 First Allele DQB1*02 [facility] DQB1 Second Allele DQB1*05 [facility] DQB1 First Serological Equivalent DQ2 [facility] DQB1 Second Serological Equivalent DQ5 [facility] DPB1 First Allele DPB1*04 H[facility]OTRAC DPB1 Second Allele DBP1*04 [facility] DPB1 First Serological Equivalent DP4 [facility] DPB1 Second Serological Equivalent DP4 [facility] Reportable Comments unable to exclude rare C*08,16 BFD 04/07/20 [facility] Blood specimen (specimen) 04/04/2020 9:10 AM CDT 04/07/2020 11:07 AM CDT Narrative [facility] - 04/07/2020 11:07 AM CDT DNA was extracted from whole blood or buccal cell specimens, and relevant genomic regions were amplified by polymerase chain reactions (PCR). HLA typing was performed on PCR amplicons using reverse sequence-specific oligonucleotide (r-SSO) and/or sequence-specific primers (SSP) based techniques. r-SSO and SSP are FDA approved as IVD tests and validated by the [facility] Laboratory. Testing performed at the [facility], [address], 5th floor, [place], [address]. [facility] # [id number]. Gracie Rubi M.D., Ph.D., Associate HLA Executive Secretary Social Welfare Harman Flores M.D., Ph.D., HLA Executive Secretary Social Welfare Stan Patel M.D., [employer], [facility] Clinical Laboratories Current methodology comment last revised on 01/05/2020. Alonso Pruitt MD LAB BLOOD ORDERABLES Final Resu lt Performing Organization Address [facility]/ZIP Co de Phone Number [facility] * ABO/Rh (04/04/2020 9:10 AM CDT) [facility] ABO Rh O Negative [facility] Blood specimen (specimen) 04/04/2020 9:10 AM CDT 04/04/2020 12:32 PM CDT Alonso Pruitt MD LAB BLOOD BANK TEST ORDERABLES Final Result Performing Organization Address [facility] Co de Phone Number [facility] Department [place] [address] * Collection Task for HLA Antibody Screen (04/04/2020 9:10 AM CDT) [facility] HLA Antibody Screen by PRA Received [facility] Blood specimen (specimen) 04/04/2020 9:10 AM CDT 04/04/2020 12:30 PM CDT Alonso Pruitt MD LAB BLOOD ORDERABLES Final Resu lt Performing Organization Address [facility] [place] [address] * Reflex Hepatitis C RNA, Quantitative (04/04/2020 8:59 AM CDT) [facility] HCV RNA result Not Detected [facility] Comment: Interpretive data: The quantifiable range of this assay is 15 IU/mL to 100,000,000 IU/mL (1.18 log IU/mL to 8.00 log IU/mL). Testing was performed by the [employer] AmpliPrep/[employer] TaqMan HCV Test version 2.0 ([employer] Testing performed at [facility] Current Interpretive Data was last revised on 2015. Blood specimen (specimen) 04/04/2020 8:59 AM CDT 04/04/2020 11:33 AM CDT us Alonso Pruitt MD LAB BLOOD ORDERABLES Final Resu lt [facility] Department [place] [address] * Differential, auto (04/04/2020 8:59 AM CDT) Neutrophil abs 5.1 1.7 - 6.5 K/cumm [facility] Imm gran abs 0.1 0.0 - 0.1 K/cumm [facility] Lymphocyte abs 2.0 0.8 - 3.3 K/cumm [facility] Monocyte abs 0.8 0.2 - 0.8 K/cumm [facility] Eosinophil abs 0.1 0.0 - 0.5 K/cumm [facility] Basophil abs 0.1 0.0 - 0.1 K/cumm [facility] Neutrophil pct 61.9 % [facility] Comment: Interpretive Data Percent cell count reference ranges are not reported, since discordance with absolute values may lead to misinterpretation of CBC data. Current Interpretive Data was last revised on 2018. Imm gran pct 0.7 % [facility] Comment: Interpretive Data Percent cell count reference ranges are not reported, since discordance with absolute values may lead to misinterpretation of CBC data. Current Interpretive Data was last revised on 2018. Lymphocyte pct 24.6 % [facility] Comment: Interpretive Data Percent cell count reference ranges are not reported, since discordance with absolute values may lead to misinterpretation of CBC data. Current Interpretive Data was last revised on 2018. Monocyte pct 10.3 % [facility] Comment: Interpretive Data Percent cell count reference ranges are not reported, since discordance with absolute values may lead to misinterpretation of CBC data. Current Interpretive Data was last revised on 2018. Eosinophil pct 1.6 % [facility] Comment: Interpretive Data Percent cell count reference ranges are not reported, since discordance with absolute values may lead to misinterpretation of CBC data. Current Interpretive Data was last revised on 2018. Basophil pct 0.9 % [facility] Comment: Interpretive Data Percent cell count reference ranges are not reported, since discordance with absolute values may lead to misinterpretation of CBC data. Current Interpretive Data was last revised on 2018. Blood specimen (specimen) 04/04/2020 8:59 AM CDT 04/04/2020 9:58 AM CDT Alonso Pruitt MD LAB BLOOD ORDERABLES Final Resu lt Performing Organization Address City/[facility]/ZIP Co de Phone Number [facility] Department [place] [address] * (ABNORMAL) Uric acid (04/04/2020 8:59 AM CDT) Uric acid 9.2(H) 3.0 - 8.0 mg/dL [facility] Blood specimen (specimen) 04/04/2020 8:59 AM CDT 04/04/2020 9:59 AM CDT Alonso Pruitt MD LAB BLOOD ORDERABLES Final Resu lt [facility] [place] [address] * Creatinine, urine, random (04/04/2020 8:59 AM CDT) Creatinine Ur 100.1 mg/dL [facility] Comment: Interpretive Data No reference range established. Current interpretive data was last revised 2019. Urine 04/04/2020 8:59 AM CDT 04/04/2020 9:59 AM CDT Alonso Pruitt MD LAB URINE ORDERABLES Final Resu lt Performing Organization Address [facility] de Phone Number [facility] [place] [address] * Protein, urine, random (04/04/2020 8:59 AM CDT) Pathologist [facility] Protein, ur, quant 29.7 mg/dL [facility] Comment: Interpretive Data No reference range established. Current interpretive data was last revised 2019. Urine 04/04/2020 8:59 AM CDT 04/04/2020 9:59 AM CDT Alonso Pruitt MD LAB URINE ORDERABLES Final Resu lt Performing Organization Address [facility] [place] [address] * RPR (04/04/2020 8:59 AM CDT) Pathologist [facility] RPR Nonreactive Nonreactive [facility] Blood specimen (specimen) 04/04/2020 8:59 AM CDT 04/04/2020 9:59 AM CDT Alonso Pruitt MD LAB MICROBIOLOGY - GENERAL ORDE RABLES Final Result Performing Organization Address [facility] [place] [address] * aPTT (04/04/2020 8:59 AM CDT) Pathologist [facility] aPTT 31 25 - 37 sec [facility] Comment: Interpretive data Heparin therapeutic range: 60-90 seconds Range based on correlation with therapeutic heparin activity range of 0.3-0.7 units/ml. Current interpretive data was last revised on 2019. Blood specimen (specimen) 04/04/2020 8:59 AM CDT 04/04/2020 9:57 AM CDT Alonso Pruitt MD LAB BLOOD ORDERABLES Final Resu lt Performing Organization Address [facility] Co de Phone Number [facility] [place] [address] * Protime-INR (04/04/2020 8:59 AM CDT) PT 11.0 8.6 - 13.0 sec [facility] INR 1.0 0.8 - 1.2 [facility] Comment: Interpretive data Oral anticoagulant therapeutic ranges: Venous thromboembolism prophylaxis or treatment: 2.0-3.0 CARDIOLOGY Standard range: 2.0-3.0 High-intensity range: 2.5-3.5 Refer to indication-specific guidelines for appropriate target ranges for prosthetic heart valve replacement. Current interpretive data was last revised on 2019. Blood specimen (specimen) 04/04/2020 8:59 AM CDT 04/04/2020 9:57 AM CDT Alonso Pruitt MD LAB BLOOD ORDERABLES Final Resu lt Performing Organization Address [facility] de Phone Number [facility] [place] [address] * (ABNORMAL) PTH (04/04/2020 8:59 AM CDT) PTH 79(H) 15 - 65 pg/mL [facility] Blood specimen (specimen) 04/04/2020 8:59 AM CDT 04/04/2020 9:59 AM CDT Result [facility] Alonso Pruitt MD LAB BLOOD ORDERABLES Final Resu lt Performing Organization Address [facility] de Phone Number [facility] [place] [address] * Phosphorus (04/04/2020 8:59 AM CDT) Phosphorus, pl 3.6 2.3 - 4.5 mg/dL [facility] Blood specimen (specimen) 04/04/2020 8:59 AM CDT 04/04/2020 9:59 AM CDT us Alonso Pruitt MD LAB BLOOD ORDERABLES Final Resu lt [facility] Department [place] [address] * (ABNORMAL) Lipid panel (04/04/2020 8:59 AM CDT) Cholesterol 161 30 - 199 mg/dL [facility] Comment: Interpretive Data Ages < or = 19 years ??Acceptable: ? <170 mg/dL ??Borderline high: ??170-199 mg/dL ??High: ? >or= 200 mg/dL Ages > or = 20 years ??Desirable: ?<200 mg/dL ??Borderline high: ??200-239 mg/dL ??High: ? >or= 240 mg/dL Literature References: 1. Expert Panel on Integrated Guidelines for Cardiovascular Health and Risk Reduction in Children and Adolescents. Pediatrics 2011;128:S213 2. NCEP Expert Panel. Circulation 2004;110:227 Current Interpretive Data was last revised on 2018. Triglycerides 147 <=149 mg/dL [facility] Comment: Interpretive Data Ages < or = 9 years ??Acceptable: ? <75 mg/dL ??Borderline high: ??75-99 mg/dL ??High: ? >or= 100 mg/dL Ages 10 to 20 years ??Acceptable: ? <90 mg/dL ??Borderline high: ??90-129 mg/dL ??High: ? >or= 130 mg/dL Ages > or = 20 years ??Desirable: ?<150 mg/dL ??Borderline high: ??150-199 mg/dL ??High: ? 200-499 mg/dL ?Very high: ?? >or= 499 mg/dL Literature References: 1. Expert Panel on Integrated Guidelines for Cardiovascular Health and Risk Reduction in Children and Adolescents. Pediatrics 2011;128:S213 2. NCEP Expert Panel. Circulation 2004;110:227 Current Interpretive Data was last revised on 2018. HDL 38(L) >=40 mg/dL [facility] Comment: Interpretive Data Ages < or = 19 years ??Acceptable: ? >45 mg/dL ??Borderline low: ?? 40-45 mg/dL ??Low: ? <40 mg/dL Ages > or = 20 years ??Desirable: ?>or= 60 mg/dL ??Low: ? <40 mg/dL Literature References: 1. Expert Panel on Integrated Guidelines for Cardiovascular Health and Risk Reduction in Children and Adolescents. Pediatrics 2011;128:S213 2. NCEP Expert Panel. Circulation 2004;110:227 Current Interpretive Data was last revised on 2018. LDL, calculated 94 <=129 mg/dL [facility] Comment: Interpretive Data Ages < or = 19 years ??Acceptable: ? <110 mg/dL ??Borderline high: ??110-129 mg/dL ??High: ?>or= 130 mg/dL Ages > or = 20 years ??Optimal: ? <100 mg/dL ??Near optimal: ?100-129 mg/dL ??Borderline high: ?? 130-159 mg/dL ??High: ?>160 mg/dL Literature References: 1. Expert Panel on Integrated Guidelines for Cardiovascular Health and Risk Reduction in Children and Adolescents. Pediatrics 2011;128:S213 2. NCEP Expert Panel. Circulation 2004;110:227 Current Interpretive Data was last revised on 2018. Non-HDL Cholesterol 123 mg/dL [facility] Comment: Interpretive Data Ages < or = 19 years ??Acceptable: ?<120 mg/dL ??Borderline high: ??120-144 mg/dL ??High: ?>145 mg/dL Ages > or = 20 years ??When triglycerides are >200 mg/dL, Non-HDL cholesterol is a secondary target of ? therapy with treatment goals that are 30 mg/dL greater than the LDL cholesterol target. ? Literature References: 1. Expert Panel on Integrated Guidelines for Cardiovascular Health and Risk Reduction in Children and Adolescents. Pediatrics 2011;128:S213 2. NCEP Expert Panel. Circulation 2004;110:227 Current Interpretive Data was last revised on 2018. Chol/HDL ratio 4 [facility] Blood specimen (specimen) 04/04/2020 8:59 AM CDT 04/04/2020 9:59 AM CDT Alonso Pruitt MD LAB BLOOD ORDERABLES Final Resu lt Performing Organization Address City/[facility] de Phone Number [facility] [place] [address] * (ABNORMAL) Iron profile w/ IBC (04/04/2020 8:59 AM CDT) Iron 71 50 - 150 mcg/dL [facility] TIBC 248(L) 250 - 400 mcg/dL [facility] Transferrin saturation 29 20 - 50 % [facility] Blood specimen (specimen) 04/04/2020 8:59 AM CDT 04/04/2020 9:59 AM CDT Alonso Pruitt MD LAB BLOOD ORDERABLES Final Resu lt [facility] [place] [address] * Hepatitis B core antibody, total (04/04/2020 8:59 AM CDT) [facility] Hep B core IgG/IgM Nonreactive Nonreactive [facility] Blood specimen (specimen) 04/04/2020 8:59 AM CDT 04/04/2020 10:01 AM CDT Alonso Pruitt MD LAB MICROBIOLOGY - GENERAL ORDE [place]EN[place] Edited Result - Final Performing Organization Address City/[facility] Co de Phone Number [facility] [place] [address] * Gamma GT (04/04/2020 8:59 AM CDT) [facility] GGT 19 10 - 50 Units/L [facility] Blood specimen (specimen) 04/04/2020 8:59 AM CDT 04/04/2020 9:59 AM CDT Alonso Pruitt MD LAB BLOOD ORDERABLES Final Resu lt Performing Organization Address [facility] de Phone Number [facility] [place] [address] * Ferritin (04/04/2020 8:59 AM CDT) [facility] Ferritin 369 30 - 400 ng/mL [facility] Blood specimen (specimen) 04/04/2020 8:59 AM CDT 04/04/2020 9:59 AM CDT Alonso Pruitt MD LAB BLOOD ORDERABLES Final Resu lt Performing Organization Address [facility] de Phone Number [facility] [place] [address] * CMV, IgG (04/04/2020 8:59 AM CDT) [facility] CMV IgG Negative Negative [facility] Comment: Interpretive Data Negative - No detectable CMV IgG antibody. Equivocal- Uncertain Immune Status. ??Additional sample should be sent. Positive - Indicates presence of detectable CMV IgG antibody. Current interpretive data was last revised on 2016. Blood specimen (specimen) 04/04/2020 8:59 AM CDT 04/04/2020 9:58 AM CDT Alonso Pruitt MD LAB MICROBIOLOGY - GENERAL MANNYNallely COOP[place] Final Result [facility] [place] [address] * (ABNORMAL) Comprehensive metabolic panel (04/04/2020 8:59 AM CDT) Sodium 142 135 - 145 mmol/L [facility] Potassium, pl 4.8 3.3 - 4.9 mmol/L [facility] Chloride 107 97 - 110 mmol/L [facility] CO2 25 22 - 32 mmol/L [facility] Anion gap 10 2 - 15 mmol/L [facility] BUN 41(H) 8 - 25 mg/dL [facility] Creatinine 2.56(H) 0.80 - 1.30 mg/dL [facility] Glucose 86 70 - 199 mg/dL [facility] Comment: Interpretive Data Fasting glucose >/= 126 [...] interpretive data was last revised 2017. Calcium 9.5 8.5 - 10.3 mg/dL [facility] Bilirubin, total 0.3 0.1 - 1.2 mg/dL [facility] Protein, pl 7.5 6.5 - 8.5 g/dL [facility] Albumin 4.9 3.5 - 5.0 g/dL [facility] Alk phos 86 40 - 130 Units/L [facility] ALT 20 7 - 55 Units/L [facility] AST 22 10 - 50 Units/L [facility] Blood specimen (specimen) 04/04/2020 8:59 AM CDT 04/04/2020 9:59 AM CDT Alonso Pruitt MD LAB BLOOD ORDERABLES Final Resu lt Performing Organization Address City/[facility]/ZIP Co de Phone Number [facility] [place] [address] * (ABNORMAL) CBC with auto differential (04/04/2020 8:59 AM CDT) Pathologist [facility] WBC 8.2 3.8 - 9.9 K/cumm [facility] Hgb 13.3 13.0 - 17.5 g/dL [facility] Hct 40.7 38.9 - 50.3 % [facility] Plt 301 150 - 400 K/cumm [facility] MPV 10.4 9.1 - 12.3 fL [facility] RBC 4.23(L) 4.30 - 5.80 M/cumm [facility] MCV 96.2 81.3 - 96.4 fL [facility] MCH 31.4 27.1 - 33.3 pg [facility] MCHC 32.7 32.3 - 35.7 g/dL [facility] RDW CV 13.2 11.1 - 14.9 % [facility] RDW SD 47.4 35.7 - 48.1 fL [facility] NRBC abs 0.00 0.00 - 0.01 K/cumm [facility] Blood specimen (specimen) 04/04/2020 8:59 AM CDT 04/04/2020 9:58 AM CDT Alonso Pruitt MD LAB BLOOD ORDERABLES Final Resu lt [facility] [place] [address] * (ABNORMAL) Hepatitis C antibody (04/04/2020 8:59 AM CDT) Pathologist [facility] Hep C Ab Reactive( A) Nonreactive [facility] Comment:Positive for HCV ant ibodies.?? This may represent current or past HCV infection. Supplemental molecular testing will be automatically performed to determine ??current infection status in accordance with current CDC screening recommendations. Blood specimen (specimen) 04/04/2020 8:59 AM CDT 04/04/2020 10:01 AM CDT Alonso Pruitt MD LAB MICROBIOLOGY - GENERAL ORDE RABLES Final Result Performing Organization Address [facility] de Phone Number [facility] [place] [address] * Varicella Zoster (VZV) IgG Blood (04/04/2020 8:59 AM CDT) [facility] VZV IgG Reactive Nonreactive [facility] Comment:IgG antibodies to Va ricella Zoster virus detected.?? This may indicate that the patient was exposed to Varicella Zoster through??infection or vaccination. Blood specimen (specimen) 04/04/2020 8:59 AM CDT 04/04/2020 9:59 AM CDT Alonso Pruitt MD LAB MICROBIOLOGY - GENERAL ORDE RABLES Final Result Performing Organization Address [facility] de Phone Number [facility] [place] [address] * HSV 2 IgG Antibody Blood (04/04/2020 8:59 AM CDT) [facility] HSV 2 IgG Reactive Nonreactive [facility] Comment: Interpretive Data 1. Negative: No detectable IgG antibody to HSV-2. 2. Equivocal: Presence or absence of detectable antibodies to HSV-2 cannot be determined and the test should be repeated. 3. 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 Current interpretive data was last revised on 2017. Blood specimen (specimen) 04/04/2020 8:59 AM CDT 04/04/2020 9:59 AM CDT Alonso Pruitt MD LAB MICROBIOLOGY - GENERAL ORDNallely HULL Final Result Performing Organization Address [facility] Co de Phone Number [facility] [place] [address] * HSV 1 IgG Antibody Blood (04/04/2020 8:59 AM CDT) Pathologist [facility] HSV 1 IgG Reactive Nonreactive [facility] Comment: Interpretive Data 1. Nonreactive: No detectable IgG antibody to HSV-1. 2. Equivocal: Presence or absence of detectable antibodies to HSV-1 cannot be determined and the test should be repeated. 3. Reactive: Indicates presence of detectable IgG antibody to HSV-1. Current interpretive data was last revised on 2017. Blood specimen (specimen) 04/04/2020 8:59 AM CDT 04/04/2020 9:59 AM CDT Alonso Pruitt MD LAB MICROBIOLOGY - GENERAL BECCA HULL Final Result Performing Organization Address [facility] de Phone Number [facility] [place] [address] * Hepatitis B Surface Antigen (04/04/2020 8:59 AM CDT) Pathologist [facility] HepBsAg Nonreactive Nonreactive [facility] Blood specimen (specimen) 04/04/2020 8:59 AM CDT 04/04/2020 10:01 AM CDT Alonso Pruitt MD LAB MICROBIOLOGY - GENERAL BECCA HULL Edited Result - Final Performing Organization Address [facility] [place] [address] * Hepatitis B surface antibody (immune status) (04/04/2020 8:59 AM CDT) Pathologist [facility] HBsAb (immune status) Nonreactive [facility] Comment: Interpretive Data Nonreactive: This result is [...] interpretive data was last revised on 20. Blood specimen (specimen) 04/04/2020 8:59 AM CDT 04/04/2020 10:01 AM CDT Alonso Pruitt MD LAB MICROBIOLOGY - GENERAL ORDE RABLES Final Result Performing Organization Address [facility] de Phone Number [facility] [place] [address] * (ABNORMAL) Leandro Serrato virus VCA, IgG (04/04/2020 8:59 AM CDT) EBV VCA IgG Positive( A) Negative [facility] Comment: Interpretive Data Results ? Interpretation Negative ?No detectable antibody to VCA IgG ?antibody. Equivocal ? Uncertain immune status, suggest ?sending additional sample. Positive ?Indicates the presence of antibody; ?90% of the adult population will ?have been infected with EBV sometime ?in the past. Interpretive data revised 01/22/2017. Blood specimen (specimen) 04/04/2020 8:59 AM CDT 04/04/2020 9:59 AM CDT Alonso Pruitt MD LAB BLOOD ORDERABLES Final Resu lt Performing Organization Address [facility] de Phone Number [facility] [place] [address] documented in this encounter Visit Diagnoses Diagnosis End stage renal disease (CMS/HCC) (HCC) End stage renal disease documented in this encounter Orders Lab Orders Without Results Count Last Ordered D ate First Ordered Date HLA ANTIBODY SCREEN - PRA (C LASS I AND CLASS II) 1 04/04/2020 documented in this encounter Care Teams Field Training Agent Relationship Specialty Start Date End Date Gerardo Shah MD PCP - General Internal Medicine 09/30/18 Suzette Strickland MD [address] [facility] [address] [place] [address] Referring Physician Nephrology 02/15/20 Rita Tapia, RN [address] [place] [address] Registered Nurse Sales Operations Analyst 02/15/20 documented as of this encounter
--- OUTSIDE RECORDS SUMMARY | 2024-10-16 06:41 | XMS_ITS | Encounter Summary ---
Author Organization [facility] Healthcare Address [address] [place] [address] Care Team Providers Care Car Repairman Name Role Phone Gerardo Shah MD Primary Care Provider [phone] Suzette Strickland MD Unavailable [phone] Rita Taipa RN Unavailable [phone] Encounter Details Date Type Department Care Team (Late st Contact Info) Description 04/21/2020 Telephone [facility] Transplant Kidney [address] [facility] [address] [phone] [place] [address] Giulia Santos. Social History Tobacco Use Types Packs/Day Years Used Date Smoking Tobacco: Former Cigarettes 1.5 39.5 0 04/11/1978 - 2017 Smokeless Tobacco: Never Alcohol Use Standard Drinks/Week Comments No 0 (1 standard drink = 0.6 oz pur e alcohol) Sex and Gender Information Value Date Recorded Sex Assigned at Not on file Legal Sex Male 4:54 AM BALL SHAGGER Gender Identity Not on file Sexual Orientation Straight 05/03/2020 10 :36 AM CDT documented as of this encounter Miscellaneous Notes * Telephone Encounter - Giulia Santos. - 04/21/2020 9:55 AM CDT Requests return call re: if he's not going to get a transplant have you made a surgeon appointment for him and where do they go from here. documented in this encounter Plan of Treatment Scheduled Procedures Name Priority Associated Diagnoses Date/Ti me TRANSPLANT KIDNEY ESRD (end stage renal disease) ([facility]) documented as of this encounter Visit Diagnoses Not on filedocumented in this encounter Care Teams Car Repairman Relationship Specialty Start Date End Date Gerardo Shah MD PCP - General Internal Medicine 09/30/18 Suzette Strickland MD [address] [facility] [address] [place] [address] Referring Physician Nephrology 02/15/20 Rita Tapia, RN [address] [place], [place] [id number] Registered Nurse Arranger Assembler 02/15/20 documented as of this encounter
--- OUTSIDE RECORDS SUMMARY | 2024-10-16 06:41 | XMS_ITS | Encounter Summary ---
Author Organization [facility] Healthcare Address [address] [place] [address] Care Team Providers Care Duck Farmer Name Role Phone Gerardo Shah MD Primary Care Provider [phone] Suzette Strickland MD Unavailable [phone] Rita Tapia RN Unavailable [phone] Encounter Details Date Type Department Care Team (Late st Contact Info) Description 06/27/2020 Orders Only [facility] HealthCare/ Physicians [address] [place] [address] Chucho Aponte MD [address] N[address] [facility] [place] [id number] [place], [place] [id number] Preop testing (Primary Dx) Social History Tobacco Use Types Packs/Day Years Used Date Smoking Tobacco: Former Cigarettes 1.5 40 0 04/11/1978 - 2017 Smokeless Tobacco: Never Alcohol Use Standard Drinks/Week Comments Yes 2 (1 standard drink = 0.6 oz pur e alcohol) Sex and Gender Information Value Date Recorded Sex Assigned at Not on file Legal Sex Male 4:54 AM MAINTENANCE MACHINE REPAIRER Gender Identity Not on file Sexual Orientation Straight 05/03/2020 10 :36 AM CDT documented as of this encounter Progress Notes * Deana Guillermo MA - 06/27/2020 10:33 AM CDT PRE PROCEDURAL COVID TESTING ORDERED at [facility] documented in this encounter Plan of Treatment Scheduled Procedures Name Priority Associated Diagnoses Date/Ti me TRANSPLANT KIDNEY ESRD (end stage renal disease) ([facility]) documented as of this encounter Visit Diagnoses Diagnosis Preop testing- Primary Unspecified pre-operative examination documented in this encounter Care Teams Duck Farmer Relationship Specialty Start Date End Date Gerardo Shah MD PCP - General Internal Medicine 09/30/18 Suzette Strickland MD [address] [facility] [address] [place] [address] Referring Physician Nephrology 02/15/20 Rita Tapia, RN [address] [place] [address] Registered Nurse Content Checker 02/15/20 documented as of this encounter
--- OUTSIDE RECORDS SUMMARY | 2024-10-16 06:41 | XMS_ITS | Encounter Summary ---
Author Organization [facility] Healthcare Address [address] [place] [address] Care Team Providers Care Information Systems Analyst Name Role Phone Gerardo Shah MD Primary Care Provider [phone] Suzette Strickland MD Unavailable [phone] Rita Tapia RN Unavailable [phone] Encounter Details Date Type Department Care Team (Late st Contact Info) Description 06/27/2020 Telephone [facility] Transplant Kidney [address] [facility] [address] Mailstop [phone] [place], [place] [id number] Rita Tapia RN [address] [facility], [place] [id number] Social History Tobacco Use Types Packs/Day Years Used Date Smoking Tobacco: Former Cigarettes 1.5 40 0 04/11/1978 - 2017 Smokeless Tobacco: Never Alcohol Use Standard Drinks/Week Comments Yes 2 (1 standard drink = 0.6 oz pur e alcohol) Sex and Gender Information Value Date Recorded Sex Assigned at Not on file Legal Sex Male 4:54 AM RN HOSPICE Gender Identity Not on file Sexual Orientation Straight 05/03/2020 10 :36 AM CDT documented as of this encounter Miscellaneous Notes * Telephone Encounter - Rita Tapia RN - 06/27/2020 9:42 AM CDT Called patient to find out if he had a colonoscopy and he said he had one done in April at [place]. documented in this encounter Plan of Treatment Scheduled Procedures Name Priority Associated Diagnoses Date/Ti me TRANSPLANT KIDNEY ESRD (end stage renal disease) ([facility]) documented as of this encounter Visit Diagnoses Not on filedocumented in this encounter Care Teams Information Systems Analyst Relationship Specialty Start Date End Date Gerardo Shah MD PCP - General Internal Medicine 09/30/18 Suzette Strickland MD [facility] [address] [place] [address] Referring Physician Nephrology 02/15/20 Rita Tapia, RN [address] [place], [place] [id number] Registered Nurse Grout Machine Operator 02/15/20 documented as of this encounter
--- OUTSIDE RECORDS SUMMARY | 2024-10-16 06:41 | XMS_ITS | Encounter Summary ---
Author Organization [facility] Address [address] [place] [address] Phone Care Team Providers Care Decatizer Name Role Phone Gerardo Shah MD Primary Care Provider [phone] Suzette Strickland MD Unavailable [phone] Rita Tapia RN Unavailable [phone] Encounter Details Date Type Department Care Team (Late st Contact Info) Description 05/05/2020 Telephone [facility] Urology [address] [facility] Medical Office Building [address] [place] [address] Ilana Bingham Social History Tobacco Use Types Packs/Day Years Used Date Smoking Tobacco: Former Cigarettes 1.5 39.5 0 04/11/1978 - 2017 Smokeless Tobacco: Never Alcohol Use Standard Drinks/Week Comments No 0 (1 standard drink = 0.6 oz pur e alcohol) Sex and Gender Information Value Date Recorded Sex Assigned at Not on file Legal Sex Male 4:54 AM HAND EDGER Gender Identity Not on file Sexual Orientation Straight 05/03/2020 10 :36 AM CDT documented as of this encounter Miscellaneous Notes * Telephone Encounter - Ilana Bingham - 05/05/2020 10:31 AM CDT Will schedule 06/14/2020 * Telephone Encounter - Ilana Bingham. - 05/05/2020 10:27 AM CDT ----- Message from Marc Khan MD sent at 05/05/2020 9:44 AM CDT ----- He needs a right laparoscopic nephrectomy at [facility]. +/- Xi robot. Allow a little extra time (30-60 minutes) as it is a large kidney. Thank you documented in this encounter Plan of Treatment Scheduled Procedures Name Priority Associated Diagnoses Date/Ti me TRANSPLANT KIDNEY ESRD (end stage renal disease) ([facility]) documented as of this encounter Visit Diagnoses Not on filedocumented in this encounter Care Teams Decatizer Relationship Specialty Start Date End Date Gerardo Shah MD PCP - General Internal Medicine 09/30/18 Suzette Strickladn MD [address] [facility] [address] [place] [address] Referring Physician Nephrology 02/15/20 Rita Tapia, RN [address] [place], [place] [id number] Registered Nurse Radio Dispatcher 02/15/20 documented as of this encounter
--- OUTSIDE RECORDS SUMMARY | 2024-10-16 06:41 | XMS_ITS | Encounter Summary ---
Author Organization [facility] Address [address] [place] [address] Phone Care Team Providers Care Surveillance Camera Technician Name Role Phone Gerardo Shah MD Primary Care Provider [phone] Suzette Strickland MD Unavailable [phone] Rita Tapia RN Unavailable [phone] Encounter Details Date Type Department Care Team (Late st Contact Info) Description 06/20/2020 Telephone [facility] U[facility] [address] [facility] Medical Office Building [address] [place] [address] Ilana Bingham Social History Tobacco Use Types Packs/Day Years Used Date Smoking Tobacco: Former Cigarettes 1.5 40 0 04/11/1978 - 2017 Smokeless Tobacco: Never Alcohol Use Standard Drinks/Week Comments No 0 (1 standard drink = 0.6 oz pur e alcohol) Sex and Gender Information Value Date Recorded Sex Assigned at Not on file Legal Sex Male 4:54 AM NURSE DISCHARGE PLANNER Gender Identity Not on file Sexual Orientation Straight 05/03/2020 10 :36 AM CDT documented as of this encounter Miscellaneous Notes * Telephone Encounter - Ilana Bingham - 06/20/2020 12:52 PM CDT Patient returned your call documented in this encounter Plan of Treatment Scheduled Procedures Name Priority Associated Diagnoses Date/Ti me TRANSPLANT KIDNEY ESRD (end stage renal disease) ([facility]) documented as of this encounter Visit Diagnoses Not on filedocumented in this encounter Care Teams Surveillance Camera Technician Relationship Specialty Start Date End Date Gerardo Shah MD PCP - General Internal Medicine 09/30/18 Suzette Strickland MD [address] [facility] [address] [place] [address] Referring Physician Nephrology 02/15/20 Rita aTpia, RN [address] [place], [place] [id number] Registered Nurse [employer] Refrigerated Truck Driver 02/15/20 documented as of this encounter
--- OUTSIDE RECORDS SUMMARY | 2024-10-16 06:41 | XMS_ITS | Encounter Summary ---
Author Organization [facility] Healthcare Address [address] [place] [address] Care Team Providers Care Window Systems Administrator Name Role Phone Gerardo Shah MD Primary Care Provider [phone] Suzette Strickland MD Unavailable [phone] Rita Tapia RN Unavailable [phone] Encounter Details Date Type Department Care Team (Late st Contact Info) Description 04/11/2020 1:00 PM CDT Social Work [facility] [address] [place] [address], 8th Floor, [place] [address] Social History Tobacco Use Types Packs/Day Years Used Date Smoking Tobacco: Former Cigarettes 1.5 39.5 0 04/11/1978 - 2017 Smokeless Tobacco: Never Alcohol Use Standard Drinks/Week Comments No 0 (1 standard drink = 0.6 oz pur e alcohol) Sex and Gender Information Value Date Recorded Sex Assigned at Not on file Legal Sex Male 4:54 AM SSIS ARCHITECT Gender Identity Not on file Sexual Orientation Straight 05/03/2020 10 :36 AM CDT documented as of this encounter Progress Notes * Marie Rodriguez LMSW - 04/11/2020 1:00 PM CDT Kidney Transplant Initial Psychosocial Assessment Identifying Information Name: Abel Browne : 1960 Assessment date: 04/12/2020 Transplant Type: Kidney Transplant Evaluation - 02/18/2020 - [facility] Primary language: Montenegrin People Present at Assessment:Pt completed psychosocial assessment via telephone d/t public health crisis. Pts spouse, Blanquita was also present during evalution. Citizenship Patient is a [place] citizen. Patient was born and raised in [place]. Family Background and Supportive Relationships Patient lives with his , Blanquita in a 2 story house that they own with 1 step from the outside to the inside. Current address is [address] [place], [place] [id number]. Patient and Spouse have been for 19 years. Patient does not have any children. Pts parents are . Pt has 2 sisters; Meghann who lives in [place], [place] and Nicko, who lives in [place], [place]. Patient is independent with ADLs and drives. Support / Caregiver Plans Meghann (sister, ) will be pts primary caregiver support post- transplant and will provide transportation, be present for the post-transplant education teaching, and will provide assistance with ADLs as needed once the patient is discharged from the hospital. Meghann is self-employed and will have the necessary flexibility to provide adequate support post transplant. Pt will also have assistance from his Spouse, Blanquita ([phone]) who is planning to get on FMLA. Advance Directives Pt does not have an AD/DPOA. Patient was provided AD/DOPA documents and information. Pt will complete on own discretion. Patient verbally named Blanquita (spouse, ) as his primary agent. Education / Employment / Financial Situation Pt graduated from high school and completed 3 years of college. He is unemployed. 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 At this time patient is unsure if he will return to work post-transplant.His spouse is working full-time as a FLOOR INSTALLATION MECHANIC. Pts current income includes unemployment and his spouses wages. Patient reports finances to be okay and they deny financial concerns at this time. Insurance / Resources Pt has UMR (private insurance) through his spouses employer for medical and prescription drug coverage. Patient denies receiving assistance a this time and uses [facility] in [place], [place]. SWdefers to pts financial systems manager to ensure adequate insurance coverage for post-transplant. VA Benefits Have you served in the ? no Are you currently receiving any VA benefits? 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 Patient has known about his kidney disease since he was 29. Patient has not initiated dialysis at this time, in fact patients GFR is too good for transplant at this time. Post transplant, pt does not anticipate any issues with taking multiple pills throughout the day or receiving medication changes via phone from RN. He plans to get his labs drawn at [facility]. He does not anticipate any issues with remaining adherent and obtaining weeklylab draws post-transplant. Patient's sister, Nicko Browne are interested in donating at this time.Patient appears to be coping appropriately at this time. Patient states that building model cars, watching movies, and his personal trip practice helps him to cope. Mental Health Patient reports no history of mental health treatment or concerns and no past or present suicidal thoughts or attempts. Substance Abuse and Treatment Tobacco Pt smoked 1 1/2 ppd for 40 years. Patient quit smoking 2 years ago after he experienced a heart attack. Pt denies any use since that time. Alcohol Pt has aprox 1 beer/week. Pt denies a hx of alcohol abuse, dependency, or treatment (AA/Rehab). Illicit substances Pt denies any past or present illicit drug use. Legal Issues Patient denies any legal concerns at this time. Impression Patient is a 60 year old male. He completes the psychosocial assessment via telephone andis pleasant and agreeable to social work intervention. He demonstrates a logical thought process, is forthcoming with information,and appears to be a reliable historian. His spouse is present for thecall and is respectful in letting the patient answer and also contributes additional information when appropriate. Patient is unemployed. Meghann (sister, ) will be the primary caregiver support with assistance from patients , Blanquita. He denies any past or current mental health concerns. Pt considers his finances to be okay and he plans to continue his current insurance coverage aftertransplant. Patient appears to be capable of following a post-transplant regimen. If the following problems continue to be addressed, patient is considered an appropriate candidate for kidney transplant from a psychosocial perspective. Problems/Plan 1. Psychosocial Assessment - Solution: Complete. 2. Employment Plan - Solution: Patient is unemployed. 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 Atthis time patient is unsure if he will return to work post-transplant.His spouse is working full-time as a FLOOR INSTALLATION MECHANIC. Pts current income includes unemployment and his spouses wages. Patient reports finances to be okay and they deny financial concerns at this time. 3. Medication Access After Transplant - Solution: Pt has UMR (private insurance) through his spouses employer for medical and prescription drug coverage. Patient denies receiving assistance a this time and uses [facility] in [place], [place]. SW defers to pts financial systems manager to ensure adequate insurance coverage for post-transplant. 4. Transplant Education - Solution: SW provided information on transplant psychosocial risks, resources, and expectations after transplant. SW emphasized the importance of following transplant regimen and provided contact information for pt's questions/concerns. 5. AD/DPOA - Solution: Pt does not have an AD/DPOA. Patient was provided AD/DOPA documents and information. Pt will complete on own discretion. Patient verbally named Blanquita (spouse, ) as his primary agent. PLAN: Social work will continue to assess patient annually or as psychosocial needs change until patient is transplanted, should the team determine patient is an acceptable candidate for transplant listing. Patient will continue to complete evaluation testing and follow the recommendations of the transplant team. RECOMMENDATION: Through the course of our work I determined that Pt/Family possess the skill and ability to provideand monitor care of the patient when he returns home. Pt/Family Have the capacity to provide/monitor/arrange for the care of patient. And finally we determined that the Pt/Family has the knowledge ofavailable resources and that combining them with their existing resources will suffice to sustain the care for the patient when he returns home. The treatment team is aware of this information. All are in agreement with the aftercare plan. documented in this encounter Plan of Treatment Scheduled Procedures Name Priority Associated Diagnoses Date/Ti me TRANSPLANT KIDNEY ESRD (end stage renal disease) ([facility]) documented as of this encounter Visit Diagnoses Not on filedocumented in this encounter Care Teams Window Systems Administrator Relationship Specialty Start Date End Date Gerardo Shah MD PCP - General Internal Medicine 09/30/18 Suzette Strickland MD [address] [facility] [address] [place] [address] Referring Physician Nephrology 02/15/20 Rita Tapia, RN [address] [place] [address] Registered Nurse Wheel Cleaner 02/15/20 documented as of this encounter
--- OUTSIDE RECORDS SUMMARY | 2024-10-16 06:41 | XMS_ITS | Encounter Summary ---
Author Organization [facility] Address [address] [place] [address] Phone Care Team Providers Care Mail Distribution Scheme Examiner Name Role Phone Gerardo Shah MD Primary Care Provider [phone] Suzette Strickland MD Unavailable [phone] Rita Tapia RN Unavailable [phone] Encounter Details Date Type Department Care Team (Latest Contact Info) Description 04/11/2020 3:00 PM CDT Office Visit [facility] Nephrology [facility] 5th [place] [address] [place] [address] Belkys So, ACCOUNT COLLECTOR [address] [place] [address] Pre-transplant evaluation for kidney transplant (Primary Dx); Polycystic kidney disease, autosomal dominant; Stage 4 chronic kidney disease (CMS/HCC); Secondary hyperparathyroidism (CMS/HCC) Social History Tobacco Use Types Packs/Day Years Used Date Smoking Tobacco: Former Cigarettes 1.5 39.5 0 04/11/1978 - 2017 Smokeless Tobacco: Never Alcohol Use Standard Drinks/Week Comments No 0 (1 standard drink = 0.6 oz pur e alcohol) Sex and Gender Information Value Date Recorded Sex Assigned at Not on file 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 Gender Identity Not on file Sexual Orientation Straight 05/03/2020 10 :36 AM CDT documented as of this encounter Last Filed Vital Signs Vital Sign Reading Time Taken Comments Blood Pressure 134/65 04/11/2020 1:37 PM CDT Pulse 74 04/11/2020 1:37 PM CDT Temperature 36.9 ??C (98.4 ??F) 04/11/2020 1:37 PM C DT Respiratory Rate - - Oxygen Saturation - - Inhaled Oxygen Concentration - - Weight 97.3 kg (214 lb 6.4 oz) 04/11/2020 1:37 P M CDT Height 190.5 cm (6' 3 ) 04/11/2020 1:37 PM CDT Body Mass Index 26.8 04/11/2020 1:37 PM CDT documented in this encounter Progress Notes * Belkys So, ACCOUNT COLLECTOR - 04/11/2020 3:00 PM CDT KIDNEY TRANSPLANT MEDICINE PRETRANSPLANT EVALUATION I have been asked to evaluate Abel Browne by Dr. Strickland as a potential kidney recipient. HISTORY OF PRESENT ILLNESS: Abel Browne is a 60 y.o. male here for evaluation as a potential transplant recipient. He has end-stage renal disease due to autosomal dominant polycystic kidneydisease which was diagnosed by symptoms in 1988. He had not been under the care of a physician regularly but did not have any blood work again until 2018 when he had chest pain and presented to the ED. At that time he was told his GFR was 50%; During that hospitalization he underwent cardiac catheterization. He again had labs done when he presented to [facility] with muscle spasm. At that time he was told his kidney function was 25%. He is currently not on dialysis. He denies any nausea, vomiting, diarrhea, constipation, fever, chills, chest pain, or shortness of breath. He is not currently listed anywhere else. He wants to undergo renal transplant because he would like to feel better and not. He does have living donors at this time. Does have intermittent nausea and vomiting, as well as pruritis; gets headaches when physically active; mid abdominal heaviness No SHAHEEN, DVT, PE, cancers, CVA, nephrolithiasis; no gout; no kidney stones; not UTI's; Past Medical History Chronic Kidney Disease secondary to ADPKD stage IV not yet on AIRPORT ENGINEER. His Inside Account Representative is Dr. Strickland Autosomal dominant polycystic kidney disease Hypertension Coronary Artery Disease s/p OK 2018 s/p catheterization Secondary Hyperparathyroidism Anemia of Chronic Kidney Disease Hiatal Hernia Urethral stricture s/p dilatation (as a teenager) Chronic Constipation Past Surgical History None Patient Active Problem List Diagnosis ??? Other chest pain ??? End stage renal disease (CMS/HCC) ??? Polycystic kidney disease, autosomal dominant ??? Stage 4 chronic kidney disease (CMS/HCC) History reviewed. No pertinent surgical history. No Known Allergies Current Outpatient Medications: ??? amLODIPine (NORVASC) 5 mg tablet, TAKE ONE TABLET BY MOUTH DAILY, Disp: 90 tablet, Rfl: 3 ??? aspirin 81 mg tablet, Take 81 mg by mouth daily., Disp: , Rfl: ??? cyanocobalamin (Vitamin B-12) 1,000 mcg tablet, Take 1,000 mcg by mouth daily, Disp: , Rfl: ??? lactulose solution 10 gram/15mL, Take 10 g by mouth daily, Disp: , Rfl: ??? metoprolol (LOPRESSOR) 25 mg tablet, TAKE ONE TABLET BY MOUTH TWICE A DAY, Disp: 180 tablet, Rfl: 3 ??? nitroglycerin (NITROSTAT) 0.4 mg SL tablet, , Disp: , Rfl: ??? omeprazole (PriLOSEC) 40 mg capsule, Take 40 mg by mouth daily., Disp: , Rfl: No current facility-administered medications for this visit. Family History family history includes Aneurysm in his mother; Cancer in his father; Kidney disease in his mother and sister. Social reports that he quit smoking about 2 years ago. He started smoking about 42 years ago. He smoked 1.50 packs per day. He has never used smokeless tobacco. He reports that he does not drink alcohol or use drugs. 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 HENT: Positive for sinus pain. Eyes: Negative. Respiratory: Negative. Gastrointestinal: Positive for nausea and vomiting. Genitourinary: Negative. Skin: Negative. Neurological: Negative. Psychiatric/Behavioral: Negative. SENSITIZING EVENTS: Positive for: None VIRAL INFECTIONS: Negative for HSV mouth, HSV genitals, shingles and mumps,. Viral infections positive for: VZV Overall physical fitness by Karnofsky: 70 - Cares for self; unable to carry on normal activity or do normal work Exercise tolerance: one mile Infections recent: None Cancers: None Cardiac difficulties: hx OK Vascular difficulties: None Pulmonary difficulties: Tobacco history Neurologic difficulties: None Coagulopathy issues: None Problems with General anesthesia: Unknown Highest level education: 2 years college PHYSICAL EXAM: Vitals BP 134/65 Pulse 74 Temp 36.9 ??C (98.4 ??F) Ht 190.5 cm (6' 3 ) Wt 97.3 kg (214 lb 6.4 oz) BMI 26.80 kg/m?? Physical Exam Constitutional: Appearance: Normal appearance. HENT: Head: Atraumatic. Nose: Nose normal. Mouth/Throat: Mouth: Mucous membranes are moist. Pharynx: Oropharynx is clear. Eyes: Extraocular Movements: Extraocular movements intact. Pupils: Pupils are equal, round, and reactive to light. Neck: Musculoskeletal: Normal range of motion and neck supple. Cardiovascular: Rate and Rhythm: Normal rate and regular rhythm. Pulses: Normal pulses. Heart sounds: Normal heart sounds. Pulmonary: Effort: Pulmonary effort is normal. Breath sounds: Normal breath sounds. Abdominal: General: Bowel sounds are normal. There is distension. Comments: Large Bilateral kidneys and polycystic liver Musculoskeletal: Normal range of motion. Skin: General: Skin is warm and dry. Neurological: General: No focal deficit present. Mental Status: He is alert and oriented to person, place, and time. Psychiatric: Mood and Affect: Mood normal. Behavior: Behavior normal. Thought Content: Thought content normal. Judgment: Judgment normal. LABORATORY VALUES Chemistry Chemistry Component Value Date/Time SODIUM 142 04/04/2020 0859 POTASSIUM 4.8 04/04/2020 0859 CHLORIDE 107 04/04/2020 0859 CO2 25 04/04/2020 0859 BUNSER 41 (H) 04/04/2020 0859 CREATININE 2.56 (H) 04/04/2020 0859 GLUCOSE 86 04/04/2020 0859 Component Value Date/Time CALCIUM 9.5 04/04/2020 0859 ALKPHOS 86 04/04/2020 0859 AST 22 04/04/2020 0859 ALT 20 04/04/2020 0859 BILITOT 0.3 04/04/2020 0859 Lab Results Component Value Date PTH 79 (H) 04/04/2020 CALCIUM 9.5 04/04/2020 PHOS 3.6 04/04/2020 Lab Results Component Value Date LABGGT 19 04/04/2020 No results found for: HGBA1C No results found for: PSA Lab Results Component Value Date URICACID 9.2 (H) 04/04/2020 Lab Results Component Value Date CHOL 161 04/04/2020 TRIG 147 04/04/2020 HDL 38 (L) 04/04/2020 LDLCALC 94 04/04/2020 CBC Lab Results Component Value Date WBC 8.2 04/04/2020 HGB 13.3 04/04/2020 HCT 40.7 04/04/2020 MCV 96.2 04/04/2020 LABPLAT 301 04/04/2020 Lab Results Component Value Date FERRITIN 369 04/04/2020 IRON 71 04/04/2020 TRANSFERSAT 29 04/04/2020 Lab Results Component Value Date ABORH O Negative 04/04/2020 Lab Results Component Value Date PT 11.0 04/04/2020 INR 1.0 04/04/2020 APTT 31 04/04/2020 Urine No results found for: PROTCREATUrine dipstick shows positive for protein. Micro exam: 0-5 WBC's per HPF. Viral serologies: Lab Results Component Value Date HEPBCAB Nonreactive 04/04/2020 HEPCAB Reactive (A) 04/04/2020 Lab Results Component Value Date CMVIGG Negative 04/04/2020 [id number] Reactive 04/04/2020 BOS5INB Reactive 04/04/2020 VZVIGG Reactive 04/04/2020 LABRPR Nonreactive 04/04/2020 No results found for: [id number] Lab Results Component Value Date HLA Received 04/04/2020 HLA Received 04/04/2020 HLA Received 04/04/2020 HLA Received 04/04/2020 IMAGING AND DIAGNOSTICS: CXR: Results for orders placed during the hospital encounter of 04/04/20 X-ray chest 2 views Narrative EXAMINATION: 2 view chest radiograph Impression There are no prior chest radiographs at [facility] for comparison. The heart and mediastinal contours are normal. There is no mass or consolidation. There is no lymphadenopathy. There are no pleural effusions. There is no pneumothorax. There is old granulomatous disease. Electronically signed by: Ann Marie Zazueta M.D. CT abd/pelvis: No results found for this or any previous visit. Results for orders placed during the hospital encounter of 04/04/20 CT Abdomen Pelvis WO Contrast Narrative EXAMINATION: Computed tomography of the abdomen and pelvis without intravenous contrast HISTORY: Renal transplant evaluation TECHNIQUE: Transaxial computed tomographic images of the abdomen and pelvis were obtained without intravenous contrast according to the standard protocol. COMPARISON: None available FINDINGS: Within the lung bases, there is no pleural effusion, pneumothorax, or consolidation. A 6 mm nodule is present within the lingula at table position -711.5. Heart size is normal without pericardial effusion. The abdominal aorta demonstrates minimal atherosclerotic calcification as does the right common iliac artery. No external iliac artery atherosclerotic calcifications or aneurysm is identified. Innumerable cysts replace the parenchyma of both kidneys, most of which are simple fluid attenuation while others are hyperattenuating. There is no hydronephrosis. Multiple hepatic cysts are present. No definite solid liver lesion. No biliary duct dilation or gallbladder distention. No focal lesion is seen within the adrenal glands or the pancreas. The spleen is normal in size. No retroperitoneal mesenteric pelvic or inguinal lymphadenopathy. The prostate gland bladder grossly normal. No free intraperitoneal fluid or free gas. Scattered colonic diverticula are seen without associated inflammation. There is no peritoneal or omental nodularity. The appendix is normal. A small fat-containing right inguinal hernia is present. Bone windows demonstrate no osseous lesion or fracture. Impression 1. Minimal abdominal aortic and right common iliac artery calcific atherosclerosis. 2. Polycystic liver and kidney disease. Of note some of the renal lesions are hyperattenuating and may have hemorrhagic or proteinaceous content. Comparison with prior studies or MRI would be helpful to assess for any solid lesions. 3. 6 mm nodule within the lingula for which a one-year follow-up study is recommended. Recommend follow up of the Incidental lung nodule Additional Imaging In [address] Mon[address] with noncontrast chest CT. Electronically signed by: Nitish Rodriguez M.D. EKG: sinus bradycardia. Results for orders placed during the hospital encounter of 04/04/20 ECG 12 lead 04/04/2020 3:05 PM (Final) Status: Normal 04/04/2020 3:05 PM TTE Results for orders placed during the hospital encounter of 04/11/20 Stress Echo Pharmacologic 04/11/2020 04/11/2020 9:54 AM (Final) Status: Normal 04/11/2020 9:54 AM Narrative Patient name: Abel Browne Date of test: 04/11/2020 Hospital #: [id number] Location: [facility] Interpreted by: Baltazar Howe MD. Machine Feed Operator: Chucho Hoyt RDCS RN: Karthik Kruger RN Reason for Test: ESRD Study quality: Technically good Referring Physician: FARHAD KING MD Contrast Agent: 0.9 ml Optison Administered, (2.1 ml wasted). LV Global Function: Normal left ventricular systolic function. Baseline Echo Comments: Normal LV+RV normal systolic function - No wall abnormalities, Mild LVH. Normal LA+RA size. EF 71% Doppler/CF Comments: Mild MR. e/e' 6 (septal) 5 (lateral) Baseline HR: 72 Baseline BP: 126/82 Conduction Defects: None Resting ECG Comments: Normal sinus rhythm. Medications: Metoprolol, Norvasc, ASA Meds held: Metoprolol Intravenous dobutamine was infused to a maximal dose 30 micro-g/Kg/min. Atropine: 0.2 mg. Other Med: Peak HR: 151 Peak BP: 111/69 Post-Exercise Comments: Marked increase in the LV and RV contractility, no segmental wall motion abnormalities. Test terminated: Stress ECG Comments: No ischemic changes or arrhythmia. CONTRAST ENHANCEMENT WAS EMPLOYED after initial imaging due to sub-optimal quality related to co-morbidity defined by patient's body habitus. Impression: Maximal Dobutamine Stress Echocardiogram, NEGATIVE for myocardial ischemia.Normal global LV Myocardial longitudinal function and LV strain pattern. Confirmed on 04/11/2020 - 09:54:04 by Baltazar Howe MD. By signing this report, the attending information strategist certifies that he or she has personally supervised and interpreted the echocardiogram and has reviewed and or edited and agrees with the written comments contained within the report. XR Orthopantogram Panorex Narrative XR ORTHOPANTOGRAM/PANOREX HISTORY: Transplant evaluation. FINDINGS: 1 view orthopantogram is obtained. The maxillary ridge is edentulous. Multiple extractions and restorations of the mandibular teeth are present. There are no large caries or periapical lucencies. The osseous mandible is normal. Impression No large caries or periapical lucencies. Electronically signed by: Ivan Adamson M.D. 6 Minute Walk 04/04/20 Diagnosis: ESRD Time(min) Distance (ft)/ [place]royo O2 L/M SpO2 HR Bettie* BP FEV1/ % Pred Rest: ?? RA 99 61 2 119/80 1.93 / 53 ? Walk/Bike: ? 1 ?? RA 98 82 2 ? 2 ?? RA 97 88 3 ? 3 ?? RA 98 89 3 ? 4 ?? RA 99 90 3 ? 5 ?? RA 98 87 3 ? 6 min 0 sec 1610 RA 99 91 3 ? Recovery: ? 1 ?? RA 99 70 3 138/88 2.17 / 58 2 ?? RA 99 69 2 ? *Bettie rate of perceived exertion (1-10 dyspnea scale) Gagan, CHEST 2003; 123:1408 ?? Walk Test Summary: Six Minute Walk Distance: 1610 ft Six minute Walk Work [distance (m) x body wt (kg)]: 08696 kg.m (normal >60,000 kg.m) Oxygen required to maintain SpO2 greater than 90% during six minutes of walking: - L/M EGD was done 11/04/18 however, no results available at this time Colonoscopy None on record IMPRESSION: Abel Browne is a 60 y.o. male here for evaluation as a potential transplant recipient. The following are his risks: 1. Chronic Kidney Disease stage IV not yet on AIRPORT ENGINEER (eGFR per MDRD 26) 2. ADPKD 3. Hypertension 4. Chronic Constipation 5. Secondary Hyperparathyroidism: well controlled at this time Transplant candidacy: At this time the patient is NOT a candidate due to his GFR. Once his GFR is < 20 then he can be re evaluated. He can proceed with continued work up as part of his evaluation, we would recommend the followin. Transplant surgery to evaluated CT if surgical intervention of tangirnaq kidneys is indicated priorto transplant. 2. Repeat CT one year (March 2021) for 6 mm lingula nodule 3. Colonoscopy 4. Labs: add PSA 5. Head imaging/MRI for PKD w headaches to exclude aneurysm 6. MRI of abdomen to further evaluate for renal lesions The risks and benefits of kidney transplantation, immunosuppression including financial, risks, potential need to receive blood products and need for long- term follow-up care were addressed with the patient. The possibility of alternative treatments such as dialysis or were also discussed with the patient. The patient was offered the opportunity for questions and discussion. Final determination of the patient's transplant candidacy will be made after a review of the incoming data and discussion in the multidisciplinary kidney transplant meeting. documented in this encounter Plan of Treatment Scheduled Procedures Name Priority Associated Diagnoses Date/Ti me TRANSPLANT KIDNEY ESRD (end stage renal disease) (CMS/HCC) documented as of this encounter Visit Diagnoses Diagnosis Pre-transplant evaluation for kidney transplant- Primary Polycystic kidney disease, autosomal dominant Congenital polycystic kidney, autosomal dominant Stage 4 chronic kidney disease (CMS/HCC) (HCC) Secondary hyperparathyroidism (HCC) Secondary hyperparathyroidism (of renal origin) documented in this encounter Discontinued Medications Medication Sig Discontinue Reason Start Date End Da te lactulose 0.67 gram/mL solution 03/10/2020 04/11/2020 documented as of this encounter Historical Medications * This list may reflect changes made after this encounter. Medication Sig Dispense Quantity Refills Last Filled Start D ate End Date lactulose 0.67 gram/mL solution 03/10/2020 04/11/20 20 added in this encounter Care Teams Mail Distribution Scheme Examiner Relationship Specialty Start Date End Date Gerardo Shah MD PCP - General Internal Medicine 09/30/18 Suzette Strickland MD [address] [facility] [address] [place] [address] Referring Physician Nephrology 02/15/20 Rita Tapia, RN [address] [place] [address] Registered Nurse Weblogic Developer 02/15/20 documented as of this encounter
--- OUTSIDE RECORDS SUMMARY | 2024-10-16 06:41 | XMS_ITS | Encounter Summary ---
Author Organization [facility] Address [address] [place] [address] Phone Care Team Providers Care Pearl Fisherman Name Role Phone Gerardo Shah MD Primary Care Provider [phone] Suzette Strickland MD Unavailable [phone] Rita Tapia RN Unavailable [phone] Encounter Details Date Type Department Care Team (Late st Contact Info) Description 06/21/2020 Orders Only [facility] ([facility] - [facility] Urology [address] [facility] Advanced Medicine 11th [place] [address] [place] [address] Pedro Mccormick MD [address] [place] [address] Postoperative pain (Primary Dx) Social History Tobacco Use Types Packs/Day Years Used Date Smoking Tobacco: Former Cigarettes 1.5 40 0 04/11/1978 - 2017 Smokeless Tobacco: Never Alcohol Use Standard Drinks/Week Comments No 0 (1 standard drink = 0.6 oz pur e alcohol) Sex and Gender Information Value Date Recorded Sex Assigned at Not on file 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 Gender Identity Not on file Sexual Orientation Straight 05/03/2020 10 :36 AM CDT documented as of this encounter Ordered Prescriptions Prescription Sig Dispense Quantity Refills Last Filled Start Date End Date HYDROcodone-acetam inophen (NORCO) 5-325 mg per tabletIndications: Pain Take 1 tablet by mouth every 6 (six) hours as needed (breakthroug h pain) 20 tablet 06/21/2020 07/07/2020 documented in this encounter Plan of Treatment Scheduled Procedures Name Priority Associated Diagnoses Date/Ti me TRANSPLANT KIDNEY ESRD (end stage renal disease) ([facility]) documented as of this encounter Visit Diagnoses Diagnosis Postoperative pain- Primary Other acute postoperative pain documented in this encounter Care Teams Pearl Fisherman Relationship Specialty Start Date End Date Gerardo Shah MD PCP - General Internal Medicine 09/30/18 Suzette Strickland MD [address] [facility] [address] [place] [address] Referring Physician Nephrology 02/15/20 Rita Tapia, RN [address] [place] [address] Registered Nurse Corridor Redevelopment Manager 02/15/20 documented as of this encounter
--- OUTSIDE RECORDS SUMMARY | 2024-10-16 06:41 | XMS_ITS | Encounter Summary ---
Author Organization [facility] Address [address] [place] [address] Care Team Providers Care Air Breaker Operator Name Role Phone Gerardo Shah MD Primary Care Provider [phone] Suzette Strickland MD Unavailable [phone] Rita Tapia RN Unavailable [phone] Encounter Details Date Type Department Care Team (Late st Contact Info) Description 06/27/2020 Documentation [facility] Transplant Kidney [address] [facility] [phone] [place], [place] [id number] Rita Tapia, RN [address] [place], [place] [id number] Social History Tobacco Use Types Packs/Day Years Used Date Smoking Tobacco: Former Cigarettes 1.5 40 0 04/11/1978 - 2017 Smokeless Tobacco: Never Alcohol Use Standard Drinks/Week Comments Yes 2 (1 standard drink = 0.6 oz pur e alcohol) Sex and Gender Information Value Date Recorded Sex Assigned at Not on file 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 Gender Identity Not on file Sexual Orientation Straight 05/03/2020 10 :36 AM CDT documented as of this encounter Plan of Treatment Scheduled Procedures Name Priority Associated Diagnoses Date/Ti me TRANSPLANT KIDNEY ESRD (end stage renal disease) ([facility]) documented as of this encounter Visit Diagnoses Not on filedocumented in this encounter Care Teams Air Breaker Operator Relationship Specialty Start Date End Date Gerardo Shah MD PCP - General Internal Medicine 09/30/18 Suzette Strickland MD [address] [facility] [address] [place] [address] Referring Physician Nephrology 02/15/20 Rita Tapia, RN [address] [place] [address] Registered Nurse Oiling Machine Operator 02/15/20 documented as of this encounter
--- OUTSIDE RECORDS SUMMARY | 2024-10-16 06:41 | XMS_ITS | Encounter Summary ---
Author Organization [facility] Healthcare Address [address] [place] [address] Care Team Providers Care Channel Rougher Name Role Phone Gerardo Shah MD Primary Care Provider [phone] Suzette Strickland MD Unavailable [phone] Rita Tapia RN Unavailable [phone] Reason for Visit * Reason Onset Date Comments Transplant Social Work - Initial Consult 020 Encounter Details Date Type Department Care Team (Late st Contact Info) Description 04/08/2020 Telephone [facility] Social Work [address] [place] [address] Marie Rodriguez LCSW Transplant Social Work - Initial Consult Social History Tobacco Use Types Packs/Day Years Used Date Smoking Tobacco: Former Cigarettes Q uit: 2018 Smokeless Tobacco: Never Alcohol Use Standard Drinks/Week Comments No 0 (1 standard drink = 0.6 oz pur e alcohol) Sex and Gender Information Value Date Recorded Sex Assigned at Not on file 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 Pt did not answer, SW LVM requesting a return call. Marie Rodriguez MSW, SUPERVISOR [employer] [phone] documented in this encounter Plan of Treatment Scheduled Procedures Name Priority Associated Diagnoses Date/Ti me TRANSPLANT KIDNEY ESRD (end stage renal disease) ([facility]) documented as of this encounter Visit Diagnoses Not on filedocumented in this encounter Care Teams Channel Rougher Relationship Specialty Start Date End Date Gerardo Shah MD PCP - General Internal Medicine 09/30/18 Suzette Strickland MD [facility] [address] [place] [address] Referring Physician Nephrology 02/15/20 Rita Tapia, RN [address] [place], [place] [id number] Registered Nurse Mail Opener 02/15/20 documented as of this encounter
--- OUTSIDE RECORDS SUMMARY | 2024-10-16 06:41 | XMS_ITS | Encounter Summary ---
Author Organization [facility] Healthcare Address [address] [place] [address] Care Team Providers Care Wheel Setter Name Role Phone Gerardo Shah MD Primary Care Provider [phone] Suzette Strickland MD Unavailable [phone] Rita Tapia RN Unavailable [phone] Reason for Referral * Diagnostic Imaging (Routine) - Closed Specialty Diagnoses / Procedures Referred By Contac t Referred To Contact Diagnoses End stage renal disease (CMS/HCC) (HCC) Procedures X-ray chest 2 views Alonso Pruitt MD [address] [facility] [address] [address] Phone: tel: fax: [facility] [address] [place] [address] Referral ID Status Reason Start Date Expiration Date Visits Re quested Visits Authorized [id number] Closed 02/18/2020 08/29/2021 1 1 * (Routine) - Closed Specialty Diagnoses / Procedures Referred By Kishore t Referred To Contact Diagnoses End stage renal disease (CMS/HCC) (HCC) Procedures ECG 12 lead Alonso Pruitt MD [address] [facility] [address] [address] Phone: tel: fax: [address] [address] Referral ID Status Reason Start Date Expiration Date Visits Re quested Visits Authorized [id number] Closed 02/18/2020 08/29/2021 1 1 Reason for Visit * (Routine) - Closed Specialty Diagnoses / Procedures Referred By Contac t Referred To Contact Diagnoses End stage renal disease ([facility]/HCC) ([facility]) Procedures ECG 12 lead Alonso Pruitt MD [address] [facility] [address] [facility] [place] [address] Phone: tel: fax: [address] [phone] Referral ID Status Reason Start Date Expiration Date Visits Re quested Visits Authorized [id number] Closed 02/18/2020 08/29/2021 1 1 Encounter Details Date Type Department Care Team (Latest Contact Info) Description 04/04/2020 8:52 AM CDT - 04/04/2020 8:53 AM CDT Hospital Encounter [facility] [address] [place] [address] Alonso Pruitt MD [address] [facility] [address] [address] End stage renal disease ([facility]/HCC) Discharge Disposition: Discharge to home or self care Social History Tobacco Use Types Packs/Day Years Used Date Smoking Tobacco: Former Cigarettes Q uit: 2018 Smokeless Tobacco: Never Alcohol Use Standard Drinks/Week Comments No 0 (1 standard drink = 0.6 oz pur e alcohol) Sex and Gender Information Value Date Recorded Sex Assigned at Not on file 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 Gender Identity Not on file Sexual Orientation Straight 05/03/2020 10 :36 AM CDT documented as of this encounter Medications at Time of Discharge aspirin 81 mg tabletIndications: Myocardial Reinfarction Prevention Take 1 tablet (81 mg total) by mouth every morning cyanocobalamin (Vitamin B-12) 1,000 mcg tabletIndications: Prevention of Vitamin B12 Deficiency Take 1 tablet (1,000 mcg total) by mouth every morning amLODIPine (NORVASC) 5 mg tablet TAKE ONE TABLET BY MOUTH DAILY 90 tablet 3 12/20/2019 1 lactulose 0.67 gram/mL solution 03/10/2020 04/11/20 2 0 lactulose solution 10 gram/15mLIndicatio ns:constipation Take 10 g by mouth as needed 02/22/2020 0 metoprolol (LOPRESSOR) 25 mg tablet TAKE ONE TABLET BY MOUTH TWICE A DAY 180 tablet 3 12/20/2019 1 nitroglycerin (NITROSTAT) 0.[address] 1 tablet (0.4 mg total) under the tongue every 5 (five) minutes as needed 09/30/2018 3 omeprazole (PriLOSEC) 40 mg capsuleIndications :Treatment of Non-Bleeding Gastric Disorder Take 40 mg by mouth every morning 11/27/2018 1 documented as of this encounter Discharge [...] VIEWS Schedule Routine, Read Routine (OP Routine) 04/04/2020 9:36 AM CDT End stage renal disease ([facility]) ECG 12-LEAD Routine 04/04/2020 8:26 AM CDT End stage renal disease ([facility]) documented in this encounter Results * X-ray chest 2 views (04/04/2020 9:36 AM CDT) Anatomical Region Laterality Modality Body, Chest N/A Computed Radiogr aphy 04/04/2020 12:4 0 PM CDT Impressions 04/04/2020 12:40 PM CDT There are no prior chest radiographs at [facility] for comparison. The heart and mediastinal contours are normal. ??There is no mass or consolidation. ??There is no lymphadenopathy. ??There are no pleural effusions. ??There is no pneumothorax. There is old granulomatous disease. Electronically signed by: Ann Marie Zazueta M.D. Narrative 04/04/2020 12:40 PM CDT EXAMINATION: 2 view chest radiograph Procedure Note Ann Marie Zazueta MD - 04/04/2020 EXAMINATION: 2 view chest radiograph IMPRESSION: There are no prior chest radiographs at [facility] for comparison. The heart and mediastinal contours are normal. There is no mass or consolidation. There is no lymphadenopathy. There are no pleural effusions. There is no pneumothorax. There is old granulomatous disease. Electronically signed by: Ann Marie Zazueta M.D. Alonso Pruitt MD IMG XR PROCEDURES Final Result * ECG 12 lead (04/04/2020 8:26 AM CDT) Ventricular Rate EKG/Min 52 BPM [facility] Atrial Rate 52 BPM [facility] CO-Interval (MSEC) 148 ms [facility] QRS-Interval (MSEC) 94 ms [facility] QT-Interval (MSEC) 422 ms [facility] QTc 392 ms [facility] P Elizabeth 62 degrees [facility] R Elizabeth 36 degrees [facility] T Elizabeth 59 degrees [facility] Diagnosis Sinus bradycardia Otherwise normal ECG No previous ECGs available Confirmed by MADY SNOW M.D ([id number]) on 04/04/2020 3:05:49 PM [facility] 04/04/2020 8:26 AM CDT 04/04/2020 3:05 PM CDT Alonso Pruitt MD ECG ORDERABLES Final Result [facility] documented in this encounter Visit Diagnoses Diagnosis End stage renal disease (CMS/HCC) (HCC) End stage renal disease documented in this encounter Care Teams Wheel Setter Relationship Specialty Start Date End Date Gerardo Shah MD PCP - General Internal Medicine 09/30/18 Suzette Strickland MD [address] [facility] [address] [place] [address] Referring Physician Nephrology 02/15/20 Rita Tapia, RN [address] [place], [place] [id number] Registered Nurse Briquetting Machine Operator 02/15/20 documented as of this encounter
--- OUTSIDE RECORDS SUMMARY | 2024-10-16 06:41 | XMS_ITS | Encounter Summary ---
Author Organization [facility] Healthcare Address [address] [place] [address] Care Team Providers Care Systems Software Designer Name Role Phone Gerardo Shah MD Primary Care Provider [phone] Suzette Strickland MD Unavailable [phone] Rita Tapia RN Unavailable [phone] Encounter Details Date Type Department Care Team (Late st Contact Info) Description 06/28/2020 Documentation [facility] Transplant Kidney [address] 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 Saved to media. documented in this encounter Plan of Treatment Scheduled Procedures Name Priority Associated Diagnoses Date/Ti me TRANSPLANT KIDNEY ESRD (end stage renal disease) ([facility]) documented as of this encounter Visit Diagnoses Not on filedocumented in this encounter Care Teams Systems Software Designer Relationship Specialty Start Date End Date Gerardo Shah MD PCP - General Internal Medicine 09/30/18 Suzette Strickland MD [address] [facility] [address] [place] [address] Referring Physician Nephrology 02/15/20 Rita Tapia, RN [address] [place], [place] [id number] Registered Nurse Ophthalmic Medical Technologist 02/15/20 documented as of this encounter
--- OUTSIDE RECORDS SUMMARY | 2024-10-16 06:41 | XMS_ITS | Encounter Summary ---
Author Organization [facility] Healthcare Address [address] [place] [address] Care Team Providers Care Farmworker Turkey Farm Name Role Phone Gerardo Shah MD Primary Care Provider [phone] Suzette Strickland MD Unavailable [phone] Rita Tapia RN Unavailable [phone] Encounter Details Date Type Department Care Team (Late st Contact Info) Description 06/20/2020 Telephone [facility] Transplant Kidney [address] [facility] [address] [phone] [place], [place] [id number] Rita Tapia, RN [address] [place], [place] [id number] Social History Tobacco Use Types Packs/Day Years Used Date Smoking Tobacco: Former Cigarettes 1.5 40 0 04/11/1978 - 2017 Smokeless Tobacco: Never Alcohol Use Standard Drinks/Week Comments No 0 (1 standard drink = 0.6 oz pur e alcohol) Sex and Gender Information Value Date Recorded Sex Assigned at Not on file Legal Sex Male 4:54 AM GALLEY HAND Gender Identity Not on file Sexual Orientation Straight 05/03/2020 10 :36 AM CDT documented as of this encounter Miscellaneous Notes * Telephone Encounter - Rita Tapia RN - 06/20/2020 4:06 PM CDT Returned patients call and he informed me he had his nephrectomy. I told him that I had seen the notes indicating this and his kidney function was now down to 11 and I would proceed with presenting him to the committee on Saturday for listing. documented in this encounter Plan of Treatment Scheduled Procedures Name Priority Associated Diagnoses Date/Ti me TRANSPLANT KIDNEY ESRD (end stage renal disease) ([facility]) documented as of this encounter Visit Diagnoses Not on filedocumented in this encounter Care Teams Farmworker Turkey Farm Relationship Specialty Start Date End Date Gerardo Shah MD PCP - General Internal Medicine 09/30/18 Suzette Strickland MD [address] [place] [address] Referring Physician Nephrology 02/15/20 Rita Tapia, RN [address] [place] [address] Registered Nurse Account Services Manager 02/15/20 documented as of this encounter
--- OUTSIDE RECORDS SUMMARY | 2024-10-16 06:41 | XMS_ITS | Encounter Summary ---
Author Organization [facility] Address [address] [place] [address] Phone Care Team Providers Care De Icer Kit Assembler Name Role Phone Gerardo Shah MD Primary Care Provider [phone] Suzette Strickland MD Unavailable [phone] Rita Tapia RN Unavailable [phone] Encounter Details Date Type Department Care Team (Late st Contact Info) Description 06/16/2020 1:05 PM CDT Ancillary Procedure [facility] Vascular Lab IP [address] [facility] [address] [place] [address] Social History Tobacco Use Types Packs/Day Years Used Date Smoking Tobacco: Former Cigarettes 1.5 40 0 04/11/1978 - 2017 Smokeless Tobacco: Never Alcohol Use Standard Drinks/Week Comments No 0 (1 standard drink = 0.6 oz pur e alcohol) Sex and Gender Information Value Date Recorded Sex Assigned at Not on file 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 Gender Identity Not on file Sexual Orientation Straight 05/03/2020 10 :36 AM CDT documented as of this encounter Plan of Treatment Scheduled Procedures Name Priority Associated Diagnoses Date/Ti me TRANSPLANT KIDNEY ESRD (end stage renal disease) (CMS/HCC) documented as of this encounter Procedures Procedure Name Priority Date/Time Associated Diagnosis Comments US VEIN MAPPING DUPLEX UPPER EXTREMITY BILATERAL IP Routine 06/16/2020 4:18 PM CDT documented in this encounter Results * US Vein Mapping Duplex Upper Extremity Bilateral (06/16/2020 4:18 PM CDT) Anatomical Region Laterality Modality Vascular Bilateral Ultrasound 06/16/2020 1:27 PM CDT Narrative 06/16/2020 3:04 PM CDT [facility] - Department of Vascular Surgery, Vascular Laboratory [address] [place] [address] Upper Extremity Vein Mapping Report Patient Name: ABEL FINCH J : 1960 (60y 3m) Study Date: 06/16/2020 1:27:59 PM Gender: M Bondactor Machine Operator: MKLocation: [id number] Ref.Provider: VALENCIA KHAN Quality: Adequate Order Provider: VALENCIA KHAN Procedures: Mapping Report: Bilateral Upper Extremity Vein Mapping. Indications: chronic kidney disease stage 5 (failure) GFR<15 mL/min. Measurements: Right - ? Left - ? Measurement ? Value ?Units ?Measurement ? Value ? Units ? Rt Axillary Vein Diameter ? 0.91 ? cm ? Lt Axillary Vein Diameter ? 0.71 ?cm ? Rt Prox Brachial Vein D. 1 ?- ?cm ? Lt Prox Brachial Vein D. 1 ?- ? cm ? Rt Prox Brachial Vein D. 2 ?- ?cm ? Lt Prox Brachial Vein D. 2 ?- ? cm ? Rt Mid Brachial Vein D. 1 ? - ?cm ? Lt Mid Brachial Vein D. 1 ? - ? cm ? Rt Mid Brachial Vein D. 2 ? - ?cm ? Lt Mid Brachial Vein D. 2 ? - ? cm ? Rt Dist Brachial Vein D. 1 ?- ?cm ? Lt Dist Brachial Vein D. 1 ?- ? cm ? Rt Dist Brachial Vein D. 2 ?- ?cm ? Lt Dist Brachial Vein D. 2 ?- ? cm ? Rt Cephalic Vein Zone 1 ? 0.34 ? cm ? Lt Cephalic Vein Zone 1 ? 0.51 ?cm ? Rt Cephalic Vein Zone 2 ? 0.29 ? cm ? Lt Cephalic Vein Zone 2 ? 0.49 ?cm ? Rt Cephalic Vein Zone 3 ? 0.31 ? cm ? Lt Cephalic Vein Zone 3 ? 0.51 ?cm ? Rt Cephalic Vein Zone 4 ? 0.20/ lateral forearm branch 0.27 ?cm ? Lt Cephalic Vein Zone 4 ? 0.48/lateral forearm branch ? cm ? Rt Cephalic Vein Zone 5 ? 0.06 ? cm ? Lt Cephalic Vein Zone 5 ? 0.20 (focal non-occlusive SVT) ?cm ? Rt Cephalic Vein Zone 6 ? 0.24/branch reconnects to main cephalic ?cm ? Lt Cephalic Vein Zone 6 ? 0.34 ?cm ? Rt Cephalic Vein Zone 7 ? 0.22 ? cm ? Lt Cephalic Vein Zone 7 ? 0.17 ?cm ? Rt Basilic Vein Zone 1 ?0.22 ? cm ? Lt Basilic Vein Zone 1 ?0.37 ?cm ? Rt Basilic Vein Zone 2 ?0.21 ? cm ? Lt Basilic Vein Zone 2 ?0.36 ?cm ? Rt Basilic Vein Zone 3 ?0.25 ? cm ? Lt Basilic Vein Zone 3 ?0.32 ?cm ? Rt Basilic Vein Zone 4 ?0.27 ? cm ? Lt Basilic Vein Zone 4 ?0.16 ?cm ? Rt Basilic Vein Zone 5 ?0.28 ? cm ? Lt Basilic Vein Zone 5 ?0.13 ?cm ? Rt Basilic Vein Zone 6 ?0.23 ? cm ? Lt Basilic Vein Zone 6 ?0.10 ?cm ? Rt Basilic Vein Zone 7 ?0.15 ? cm ? Lt Basilic Vein Zone 7 ?unable to locate ?cm ? Measurement ? Value ?Units ?Measurement ? Value ? Units ? Right - ? Left - ? - Findings: Performing Bondactor Machine Operator: Essie Sevilla RVT. Bilateral: Venous Doppler signals in the bilateral upper extremities are within normal limits for spontaneity and phasicity; normal response to compression maneuvers. Right: Duplex imaging of right cephalic and basilic veins reveals the cross- sectional measurements noted above. No evidence of superficial vein thrombus. The radial and ulnar artery/vein bifurcation appears to be at the proximal arm level Radial V Prox 0.23cm Radial V Mid 0.18cm/0.20cm Radial V Distal 0.13/0.19 Ulnar V Prox 0.34/0.53 Ulnar V Mid 0.45/0.23 Ulnar V Distal 0.31/0.42. Left: Duplex imaging of left cephalic and basilic veins reveals the cross- sectional measurements noted above. Isolated superficial vein thrombus noted in the cephalic vein at the mid forearm. The radial and ulnar artery/vein bifurcation appears to be at the proximal arm level Radial V Prox 0.23cm Radial V Mid 0.12 Radial V Distal 0.14cm/0.09cm Ulnar V Prox 0.43cm Ulnar V Mid 0.23cm/0.25cm Ulnar V Distal 0.32cm/0.15cm. Conclusions: 1. Duplex imaging of bilateral cephalic and basilic veins reveals the cross- sectional measurements noted above. 2. Superficial vein thrombus(isolated) in the left cephalic vein at mid forearm. 3. No evidence of acute deep vein thrombosis bilaterally in the upper extremities. History: Chronic kidney disease. Previous Studies: No previous studies for comparison. Disclaimer: Zone 1 = proximal arm; Zone 2 = mid arm; Zone 3 = distal arm; Zone 4 = ante-cubital; Zone 5 = proximal forearm; Zone 6 = mid forearm; Zone 7 = distal forearm. All measurements are obtained with a tourniquet placed on the upper arm unless it is contraindicated and noted in the report. The signing physician has reviewed all images pertaining to this test. These images and this report will be retained in the patient chart by the Vascular Laboratory for the legally required time period. This chart constitutes the legal record of any testing performed. Electronically Signed By: Federico Bain MD [facility] 2020-06-16 15:04:35 CDT CC: CC: Procedure Note Federico Bain MD - 06/16/2020 [facility] - Department of Vascular Surgery,Vascular Laboratory [address] [place] [address] Upper Extremity Vein Mapping Report Patient Name: ABEL FINCH JPatimartín ID: [id number] : 1960 (60y 3m)Study Date: 06/16/2020 1:27:59 PM Gender: MAccession #: [id number] Bondactor Machine Operator: Rubinacation: [id number] Ref.Provider: VALENCIA KHANQuality: Adequate Order Provider: VALENCIA KHANAccount #: [id number] Procedures: Mapping Report: Bilateral Upper Extremity Vein Mapping. Indications: chronic kidney disease stage 5 (failure) GFR<15 mL/min. Measurements: Right -Left - Measurement ValueUnits Measurement ValueUnits Rt Axillary Vein Diameter 0.91cm Lt Axillary Vein Diameter 0.71cm Rt Prox Brachial Vein D. 1 -cm Lt Prox Brachial Vein D. 1 -cm Rt Prox Brachial Vein D. 2 -cm Lt Prox Brachial Vein D. 2 -cm Rt Mid Brachial Vein D. 1 -cm Lt Mid Brachial Vein D. 1 -cm Rt Mid Brachial Vein D. 2 -cm Lt Mid Brachial Vein D. 2 -cm Rt Dist Brachial Vein D. 1 -cm Lt Dist Brachial Vein D. 1 -cm Rt Dist Brachial Vein D. 2 -cm Lt Dist Brachial Vein D. 2 -cm Rt Cephalic Vein Zone 1 0.34cm Lt Cephalic Vein Zone 1 0.51cm Rt Cephalic Vein Zone 2 0.29cm Lt Cephalic Vein Zone 2 0.49cm Rt Cephalic Vein Zone 3 0.31cm Lt Cephalic Vein Zone 3 0.51cm Rt Cephalic Vein Zone 4 0.20/ lateral forearm branch 0.27cm Lt Cephalic Vein Zone 4 0.48/lateral forearm branchcm Rt Cephalic Vein Zone 5 0.06cm Lt Cephalic Vein Zone 5 0.20 (focal non-occlusive SVT)cm Rt Cephalic Vein Zone 6 0.24/branch reconnects to main cephaliccm Lt Cephalic Vein Zone 6 0.34cm Rt Cephalic Vein Zone 7 0.22cm Lt Cephalic Vein Zone 7 0.17cm Rt Basilic Vein Zone 1 0.22cm Lt Basilic Vein Zone 1 0.37cm Rt Basilic Vein Zone 2 0.21cm Lt Basilic Vein Zone 2 0.36cm Rt Basilic Vein Zone 3 0.25cm Lt Basilic Vein Zone 3 0.32cm Rt Basilic Vein Zone 4 0.27cm Lt Basilic Vein Zone 4 0.16cm Rt Basilic Vein Zone 5 0.28cm Lt Basilic Vein Zone 5 0.13cm Rt Basilic Vein Zone 6 0.23cm Lt Basilic Vein Zone 6 0.10cm Rt Basilic Vein Zone 7 0.15cm Lt Basilic Vein Zone 7 unable to locatecm Measurement ValueUnits Measurement ValueUnits Right -Left - - Findings: Performing Bondactor Machine Operator: Essie Sevilla RVT. Bilateral: Venous Doppler signals in the bilateral upper extremities arewithin normal limits for spontaneity and phasicity; normal response to compressionmaneuvers. Right: Duplex imaging of right cephalic and basilic veins reveals thecross- sectional measurements noted above. No evidence of superficial vein thrombus. The radial and ulnar artery/vein bifurcation appears to be at the proximalarm level Radial V Prox 0.23cm Radial V Mid 0.18cm/0.20cm Radial V Distal 0.13/0.19 Ulnar V Prox 0.34/0.53 Ulnar V Mid 0.45/0.23 Ulnar V Distal 0.31/0.42. Left: Duplex imaging of left cephalic and basilic veins reveals thecross- sectional measurements noted above. Isolated superficial vein thrombus noted in thecephalic vein at the mid forearm. The radial and ulnar artery/vein bifurcation appears to be at the proximalarm level Radial V Prox 0.23cm Radial V Mid 0.12 Radial V Distal 0.14cm/0.09cm Ulnar V Prox 0.43cm Ulnar V Mid 0.23cm/0.25cm Ulnar V Distal 0.32cm/0.15cm. Conclusions: 1. Duplex imaging of bilateral cephalic and basilic veins reveals thecross- sectional measurements noted above. 2. Superficial vein thrombus(isolated) in the left cephalic vein at midforearm. 3. No evidence of acute deep vein thrombosis bilaterally in the upperextremities. History: Chronic kidney disease. Previous Studies: No previous studies for comparison. Disclaimer: Zone 1 = proximal arm; Zone 2 = mid arm; Zone 3 = distal arm;Zone 4 = ante-cubital; Zone 5 = proximal forearm; Zone 6 = mid forearm; Zone 7 =distal forearm. All measurements are obtained with a tourniquet placed on the upper armunless it is contraindicated and noted in the report. The signing physician has reviewed all images pertaining to this test.These images and this report will be retained in the patient chart by the VascularLaboratory for the legally required time period. This chart constitutes the legal record ofany testing performed. Electronically Signed By: Federico Bain MD [facility] 2020-06-16 15:04:35 CDT CC: CC: us Valencia Khan MD IMG US PROCEDURES Final R esult documented in this encounter Visit Diagnoses Not on filedocumented in this encounter Care Teams De Icer Kit Assembler Relationship Specialty Start Date End Date Gerardo Shah MD PCP - General Internal Medicine 09/30/18 Suzette Strickland MD [address] [facility] [address] [place] [address] Referring Physician Nephrology 02/15/20 Rita Tapia RN [address] [place] [address] Registered Nurse Cigar Head Holer 02/15/20 documented as of this encounter
--- OUTSIDE RECORDS SUMMARY | 2024-10-16 06:41 | XMS_ITS | Encounter Summary ---
Author Organization [facility] Address [address] [place] [address] Care Team Providers Care Environmental Remediation Engineer Name Role Phone Gerardo Shah MD Primary Care Provider [phone] Suzette Strickland MD Unavailable [phone] Rita Tapia RN Unavailable Reason for Referral * Diagnostic Imaging (Routine) - Closed Specialty Diagnoses / Procedures Referred By Contac t Referred To Contact Diagnoses End stage renal disease (CMS/HCC) (HCC) Procedures XR Orthopantogram Panorex Alonso Pruitt MD [address] [email or web address] [address] [address] Phone: tel: fax: [facility] [address] [place] [address] Referral ID Status Reason Start Date Expiration Date Visits Re quested Visits Authorized [id number] Closed 02/18/2020 08/29/2021 1 1 Reason for Visit * Diagnostic Imaging (Routine) - Closed Specialty Diagnoses / Procedures Referred By Contac t Referred To Contact Diagnoses End stage renal disease (CMS/HCC) (HCC) Procedures XR Orthopantogram Panorex Alonso Pruitt MD [address] [address] Phone: tel: fax: [facility] [address] [facility] [place] [address] Referral ID Status Reason Start Date Expiration Date Visits Re quested Visits Authorized [id number] Closed 02/18/2020 08/29/2021 1 1 Encounter Details Date Type Department Care Team (Latest Contact Info) Description 04/04/2020 8:54 AM CDT - 04/04/2020 9:51 AM CDT Hospital Encounter [facility] [address] [place] [address] Alonso Pruitt MD [address] [facility] [address] [place], [place] [id number] End stage renal disease ([facility]/HCC) Discharge Disposition: Discharge to home or self care Social History Tobacco Use Types Packs/Day Years Used Date Smoking Tobacco: Former Cigarettes Q uit: 2018 Smokeless Tobacco: Never Alcohol Use Standard Drinks/Week Comments No 0 (1 standard drink = 0.6 oz pur e alcohol) Sex and Gender Information Value Date Recorded Sex Assigned at Not on file 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 Gender Identity Not on file Sexual [...] TRANSPLANT KIDNEY ESRD (end stage renal disease) ([facility]) documented as of this encounter Procedures Procedure Name Priority Date/Time Associated Diagnosis Comments XR ORTHOPANTOGRAM/PA NOREX Schedule Routine, Read Routine (OP Routine) 04/04/2020 11:20 AM CDT End stage renal disease ([facility]) TYPE AND SCREEN Routine 04/04/2020 10:20 AM CDT documented in this encounter Results * XR Orthopantogram Panorex (04/04/2020 11:20 AM CDT) Anatomical Region Laterality Modality Head and Neck N/A Panoramic X-Ray 04/04/2020 11:2 2 AM CDT Impressions 04/04/2020 11:22 AM CDT No large caries or periapical lucencies. Electronically signed by: Ivan Adamson M.D. Narrative 04/04/2020 11:22 AM CDT XR ORTHOPANTOGRAM/PANOREX HISTORY: ??Transplant evaluation. FINDINGS: ??1 view orthopantogram is obtained. The maxillary ridge is edentulous. Multiple extractions and restorations of the mandibular teeth are present. There are no large caries or periapical lucencies. The osseous mandible is normal. Procedure Note Ivan Adamson MD - 04/04/2020 XR ORTHOPANTOGRAM/PANOREX HISTORY: Transplant evaluation. FINDINGS: 1 view orthopantogram is obtained. The maxillary ridge is edentulous. Multiple extractions and restorations of the mandibular teeth are present. There are no large caries or periapical lucencies. The osseous mandible is normal. IMPRESSION: No large caries or periapical lucencies. Electronically signed by: Ivan Adamson M.D. Alonso Pruitt MD IMG XR PROCEDURES Final Result * Type and screen (04/04/2020 10:20 AM CDT) ABO Rh O Negative [facility] Emperatriz, indirect Negative [facility] Blood specimen (specimen) 04/04/2020 10:20 AM CDT 04/04/2020 10:20 AM CDT Alonso Pruitt MD LAB BLOOD BANK TEST ORDERABLES Final Result [facility] Department [place] [address] documented in this encounter Visit Diagnoses Diagnosis End stage renal disease (CMS/HCC) (HCC) End stage renal disease documented in this encounter Care Teams Environmental Remediation Engineer Relationship Specialty Start Date End Date Gerardo Shah MD PCP - General Internal Medicine 09/30/18 Suzette Strickland MD [address] [facility] [address] [place] [address] Referring Physician Nephrology 02/15/20 Rita Tapia, RN [address] [place] [address] Registered Nurse Sheeter Waxer Operator 02/15/20 documented as of this encounter
--- OUTSIDE RECORDS SUMMARY | 2024-10-16 06:41 | XMS_ITS | Encounter Summary ---
Author Organization [facility] Address [address] [place] [address] Care Team Providers Care Customs Investigator Name Role Phone Gerardo Shah MD Primary Care Provider [phone] Suzette Strickland MD Unavailable [phone] Rita Tapia RN Unavailable [phone] Encounter Details Date Type Department Care Team (Late st Contact Info) Description 04/12/[address] [facility]ney [address] 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 Pt began eval testing 04-11-2020 Will wait for return call documented in this encounter Plan of Treatment Scheduled Procedures Name Priority Associated Diagnoses Date/Ti me TRANSPLANT KIDNEY ESRD (end stage renal disease) ([facility]) documented as of this encounter Visit Diagnoses Not on filedocumented in this encounter Care Teams Customs Investigator Relationship Specialty Start Date End Date Gerardo Shah MD PCP - General Internal Medicine 09/30/18 Suzette Strickland MD [address] [facility] [address] [place] [address] Referring Physician Nephrology 02/15/20 Rita Tapia, RN [address] [place], [place] [id number] Registered Nurse Waste[employer] Treatment Plant Chemist 02/15/20 documented as of this encounter
--- OUTSIDE RECORDS SUMMARY | 2024-10-16 06:41 | XMS_ITS | Encounter Summary ---
Author Organization [facility] Healthcare Address [address] [place] [address] Care Team Providers Care Behavior Support Specialist Name Role Phone Gerardo Shah MD Primary Care Provider [phone] Suzette Strickland MD Unavailable [phone] Rita Tapia RN Unavailable [phone] Encounter Details Date Type Department Care Team (Late st Contact Info) Description 06/14/2020 5:19 AM CDT - 06/18/2020 6:20 PM CDT Hospital Encounter [facility] [address] [place] [address] Valencia Khan MD [address] [id number] [place] [address] Autosomal dominant polycystic kidney disease Discharge Disposition: Discharge to home or self [...] file Legal Sex Male 4:54 AM RN PERIOPERATIVE Gender Identity Not on file Sexual Orientation Straight 05/03/2020 10 :36 AM CDT documented as of this encounter Last Filed Vital Signs Vital Sign Reading Time Taken Comments Blood Pressure 141/78 06/18/2020 10:10 AM CDT Pulse 86 06/18/2020 10:10 AM CDT Temperature 36.4 ??C (97.5 ??F) 06/18/2020 10:10 AM C DT Respiratory Rate 18 06/18/2020 10:10 AM CDT Oxygen Saturation 97% 06/18/2020 10:10 AM CDT Inhaled Oxygen Concentration - - Weight 97.5 kg (215 lb) 06/14/2020 4:35 PM CDT Height 185.4 cm (6' 1 ) 06/14/2020 4:35 PM CDT Body Mass Index 28.37 06/14/2020 4:35 PM CDT documented in this encounter Discharge Diagnoses Diagnosis Polycystic kidney, adult type - POLYCYSTIC KIDNEY, ADULT TYPE Acidosis - ACIDOSIS Hypertensive chronic kidney disease with stage 5 chronic kidney disease or end stage renal disease (HCC) - HYPERTENSIVE CHRONIC KIDNEY DISEASE WITH STAGE 5 CHRONIC KIDNEY DISEASE OR END STAGE RENAL DISEASE Secondary hyperparathyroidism of renal origin (HCC) - SECONDARY HYPERPARATHYROIDISM OF RENAL ORIGIN Secondary hyperparathyroidism (of renal origin) Anemia in other chronic diseases classified elsewhere - ANEMIA IN OTHER CHRONIC DISEASES CLASSIFIED ELSEWHERE (MANIFESTATION) Other acute postprocedural pain - OTHER ACUTE POSTPROCEDURAL PAIN Old myocardial infarction - OLD MYOCARDIAL INFARCTION Unspecified asthma, uncomplicated - UNSPECIFIED ASTHMA, UNCOMPLICATED Constipation, unspecified - CONSTIPATION, UNSPECIFIED Acute kidney failure, unspecified (HCC) - ACUTE KIDNEY FAILURE, UNSPECIFIED Acute kidney failure, unspecified End stage renal disease (CMS/HCC) (HCC) - END STAGE RENAL DISEASE End stage renal disease roasterman (current) use of aspirin - MOTORCOACH OPERATOR (CURRENT) USE OF ASPIRIN Family history of malignant neoplasm, unspecified - FAMILY HISTORY OF MALIGNANT NEOPLASM, UNSPECIFIED Family history of polycystic kidney - FAMILY HISTORY OF POLYCYSTIC KIDNEY Family history of disorders of kidney and ureter - FAMILY HISTORY OF DISORDERS OF KIDNEY AND URETER Personal history of nicotine dependence - PERSONAL HISTORY OF NICOTINE DEPENDENCE Gastro-esophageal reflux disease without esophagitis - GASTRO-ESOPHAGEAL REFLUX DISEASE WITHOUT ESOPHAGITIS Diaphragmatic hernia without obstruction or gangrene - DIAPHRAGMATIC HERNIA WITHOUT OBSTRUCTION OR GANGRENE Diaphragmatic hernia without mention of obstruction or gangrene Unspecified osteoarthritis, unspecified site - UNSPECIFIED OSTEOARTHRITIS, UNSPECIFIED SITE Other terminal makeup operator (current) drug therapy - OTHER HALFWAY (CURRENT) DRUG THERAPY Personal history of pneumonia (recurrent) - PERSONAL HISTORY OF PNEUMONIA (RECURRENT) documented in this encounter Discharge Summaries * Miranda Mayer NP - 06/17/2020 2:09 PM CDT Inpatient Discharge Summary BRIEF OVERVIEW Admitting Provider: Valencia Khan MD Discharge Provider: Valencia Khan MD Primary Care Physician at Discharge: Gerardo Sahh MD [phone] Admission Date: 06/14/2020 Discharge Date: 06/18/2020 Admission Location: [facility] Problems/Diagnoses: Principal Problem: Autosomal dominant polycystic kidney disease Active Problems: Acute postoperative abdominal pain Resolved Problems: No resolved hospital problems. DETAILS OF HOSPITAL STAY Presenting Problem/History of Present Illness: 60 y/o male with ADPKD with symptoms of shortness of breath, abdominal distention and constipation.After consultation with Dr. Khan, the pt has elected to undergo a right nephrectomy Hospital Course: Natividad Browne underwent right nephrectomy on 06/14/2020 by Valencia Khan MD, was admitted to the urology floor after stabilization in the PACU. For full details of procedure see operative note. IV fluids for hydration, vital signs closely monitored. Pain controlled with multimodal agents. Dang catheter in place draining clear yellow urine. Allowed a clear liquid diet. POD#1 Dang catheter removed and pt voided without difficulty. PVR with bladder scan done to ensure adequate emptying of the bladder. Diet advanced to regular and pt tolerated well. Pt having issues with pain control, he does not want to increase narcotic use due to his hx of constipation. Encouraged fluids and ambulation. POD#2 Increase in Cr to 4.89, nephrology c/s placed, maybe candidate for renal transplant. Increase pain, pt agreed to increased narcotic dose and suppository, miralax and enema for constipation, Pt did have BM late in the day and then 2 overnight. POD#3 Cr 5.38, Vascular consult per nephrology for fistula planning. Pt's pain much better controlled POD#4. Ambulating at baseline. Pain controlled on oral agents. Incisions clean, and well approximated, closed with dermabond, with ecchymosis and erythema surround incision. Pt was started on Keflex (7 total days). The patient was deemed to be medically stable for discharge from the hospital on 06/18/20 and was in agreement with the plan to discharge home. The patient will follow up with Valencia Khan MD in clinic in 3 mo. Strict return precautions were provided and good understanding was confirmed. Active Issues Requiring Follow-up: AV fistula with vascular HD w/ Renal Test Results Pending at Discharge: Operative Procedures Performed: Procedure(s): XI NEPHRECTOMY - LAPAROSCOPIC ROBOTIC ASSISTED Other Procedures: none Pertinent Test Results: none Discharge Details Physical Exam at Discharge: Discharge Condition: good Pulse: 86 Resp: 18 BP: 141/78 Temp: 36.4 ??C (97.5 ??F) Weight: 97.5 kg (215 lb) Pertinent Exam Findings at Discharge: General: No acute distress, resting comfortably Pulmonary: Nonlabored breathing Abdomen: Soft, appropriately TTP, nondistended.??Incisions CDI with dermabond. Ecchymosis and mild erythema at extraction site incision. : no dang; voiding CYU Extremities: no edema, wearing SCD's Discharge Disposition: Discharge to home or self careHome to self care Code Status at Discharge: Full code Discharge Instructions: See AVS Discharge Medications: Current Medications TAKE these medications [...] to 10 doses Commonly known as: DULCOLAX cephalexin 250 mg capsule Take 1 capsule (250 mg total) by mouth 2 (two) times a day for 7 days For: Skin/Soft Tissue Infection Commonly known as: KEFLEX cyanocobalamin 1,000 mcg tablet Take 1,000 mcg [...] every 4 hours as needed for pain For: pain Commonly known as: ROXICODONE polyethylene glycol 17 gram packet Take 1 packet (17 g total) by mouth 2 (two) times a day for 20 doses Commonly known as: MIRALAX SENNA ORAL Take 3 tablets by mouth as needed For: constipation tamsulosin 0.4 mg extended release capsule Take 1 capsule (0.4 mg total) by mouth daily with dinner Commonly known as: FLOMAX Outpatient Follow-Up: Future Appointments Date Time Provider Department Center 09/06/2020 10:30 AM Donaldo Tee MD [facility] Cosigned by Antonio Melendez MD at 06/19/2020 8:14 AM CDT documented in this encounter Discharge Instructions * Discharge Instructions* Miranda Mayer, EZEQUIEL - 06/17/2020 2:09 PM CDT DISCHARGE INSTRUCTIONS FOR NEPHRECTOMY Call your doctor if: * You have a fever higher than 101.5 F (38.6 C). * You have nausea, vomiting or diarrhea. * Your pain medicine is not helping your pain. * You feel dizzy, very tired or like you may faint. (It is normal to feel somewhat tired for 1-2 weeks after surgery.) * You have large blood clots in your urine. * You have pus or bright red drainage from your incision(s). Call your surgeon???s office during regular business hours. If you need to speak to someone after hours or on weekends or holidays, call . Diet: You may resume your usual home diet. Activity: * Do NOT lift anything over 10 pounds for 4 weeks. * Do NOT drive or operate machinery if you are taking narcotic pain medicine. * Do NOT take baths or swim in pools for 4 weeks. * You may take showers. Gently wash over wounds with soap and water, and dab or pat dry with a towel. * Take short frequent walks every day. Climbing stairs is OK. Care Instructions: Take your stool softeners as prescribed to keep your bowel movements as effortless as possible until fully healed. If you develop diarrhea, you may hold the softeners until bowel movements firm up. Steri-Strips: You have paper strips over your incisions. These strips will fall off on their own in about 10-14 days. If they do not fall off after 14 days, please feel free to remove them. Beaver: You may shower and allow soapy water to run over your samia, do not scrub them. Rinse soap off and pat dry after shower. Special Instructions: Smoking increases wound healing time. [...] them in the trash. FOLLOW UP: Dr. Valencia Khan MD would like to see you on as scheduled. Please call [phone] with any questions or concerns. STAPLE REMOVAL APPOINTMENT - your doctor would like your samia removed in 7-10 days in the office. The clinic will call you to schedule a follow-up appointment. If you do not hear from them within 3 business days, please call [phone] to schedule your appointment with the Nurse Practitioner yuan Nurse [facility]. Active issues requiring follow up: none Test results pending at discharge: pathology documented in this encounter Medications at Time [...] (1,000 mcg total) by mouth every morning cephalexin (KEFLEX) 250 mg capsuleIndication s:Skin/Soft Tissue Infection Take 1 capsule (250 mg total) by mouth 2 (two) times a day for 7 days 14 capsule 0 06/25/20 20 polyethylene glycol (MIRALAX) 17 gram packet Take 1 packet (17 g total) by mouth 2 (two) times a day for 20 doses 20 packet 0 06/28/20 20 amLODIPine (NORVASC) 5 mg tablet TAKE ONE TABLET BY MOUTH DAILY 90 tablet 3 0 12/29/19 21 bisacodyL (DULCOLAX) 10 mg suppository Insert 0.5 suppositories (5 mg total) into the rectum daily as needed for constipation for up to 10 doses 10 suppository 0 09/06/20 20 cyclobenzaprine (FLEXERIL) 5 mg [...] every 4 hours as needed for pain 20 tablet 0 06/27/20 20 sennosides (SENNA ORAL)Indications: constipation Take 3 tablets by mouth as needed 09/06/20 20 tamsulosin (FLOMAX) 0.4 mg extended release capsule Take 1 capsule (0.4 mg total) by mouth daily with dinner 30 capsule 1 0 09/28/20 20 documented as of this encounter Ordered Prescriptions Prescription Sig Dispense Quantity Refills Last Filled Start Date End Date acetaminophen 500 mg capsuleIndication s:Pain Take 1 capsule (500 mg total) by mouth every 6 (six) hours as needed for pain for up to 30 doses 30 capsule 0 oxyCODONE (ROXICODONE) 5 mg immediate release tabletIndications :Pain Take 1 tablet (5 mg total) by mouth every 4 (four) hours as needed for pain for up to 20 doses Take 1 or 2 tablets every 4 hours as needed for pain 20 tablet 0 06/27/20 20 tamsulosin (FLOMAX) 0.4 mg extended release capsule Take 1 capsule (0.4 mg total) by mouth daily with dinner 30 capsule 1 0 09/28/20 20 polyethylene glycol (MIRALAX) 17 gram packet Take 1 packet (17 g total) by mouth 2 (two) times a day for 20 doses 20 packet 0 06/28/20 20 cyclobenzaprine (FLEXERIL) 5 mg tablet Take 1 tablet (5 mg total) by mouth 3 (three) times a day as needed for muscle spasms for up to 20 doses 20 tablet 0 09/06/20 20 cephalexin (KEFLEX) 250 mg capsuleIndication s:Skin/Soft Tissue Infection Take 1 capsule (250 mg total) by mouth 2 (two) times a day for 7 days 14 capsule 0 06/25/20 20 bisacodyL (DULCOLAX) 10 mg suppository Insert 0.5 suppositories (5 mg total) into the rectum daily as needed for constipation for up to 10 doses 10 suppository 0 09/06/20 20 oxyCODONE (ROXICODONE) 5 mg immediate release tabletIndications :Pain Take 1 or 2 tablets every 4 hours as needed for pain 20 tablet 0 06/18/20 20 documented in this encounter Discharge Disposition Disposition Code Departure Means Destination Discharge to home or self care documented in this encounter Progress Notes * Belkys Mccormick MD - 06/18/2020 9:14 AM CDT Daily Progress Subjective Mr. Natividad Browne is a 60 y.o. male who underwent right Nx??for??ADPKD. Interval History: Pain well controlled -n/-v +OOB +f/+BM Objective Physical Exam: General: No acute distress, resting comfortably Pulmonary: Nonlabored breathing Abdomen: Soft, appropriately TTP, mildly distended.. Incisions CDI with dermabond. Some erythema atextraction site incision : no dang; voiding CYU Extremities: no edema, wearing SCD's Lab/Radiology/Diagnostic Review: Laboratory review: Lab results in the last 24 hours: Recent Results (from the past 24 hour(s)) Basic metabolic panel Collection Time: 06/17/20 10:43 PM Result Value Ref Range Sodium 140 135 - 145 mmol/L Potassium, pl 4.7 3.3 - 4.9 mmol/L Chloride 106 97 - 110 mmol/L CO2 21 (L) 22 - 32 mmol/L Anion gap 13 2 - 15 mmol/L BUN 71 (H) 8 - 25 mg/dL Creatinine 5.49 (H) 0.80 - 1.30 mg/dL Glucose 104 70 - 199 mg/dL Calcium 8.8 8.5 - 10.3 mg/dL CBC without differential Collection Time: 06/17/20 10:43 PM Result Value Ref Range WBC 8.0 3.8 - 9.9 K/cumm Hgb 11.3 (L) 13.0 - 17.5 g/dL Hct 36.1 (L) 38.9 - 50.3 % Plt 258 150 - 400 K/cumm MPV 9.9 9.1 - 12.3 fL RBC 3.71 (L) 4.30 - 5.80 M/cumm MCV 97.3 (H) 81.3 - 96.4 fL MCH 30.5 27.1 - 33.3 pg MCHC 31.3 (L) 32.3 - 35.7 g/dL RDW CV 13.3 11.1 - 14.9 % RDW SD 47.3 35.7 - 48.1 fL NRBC abs 0.00 0.00 - 0.01 K/cumm Magnesium Collection Time: 06/17/20 10:43 PM Result Value Ref Range Magnesium 2.2 1.4 - 2.5 mg/dL Phosphorus Collection Time: 06/17/20 10:43 PM Result Value Ref Range Phosphorus, pl 4.4 2.3 - 4.5 mg/dL Potassium, whole blood Collection Time: 06/17/20 11:38 PM Result Value Ref Range Potassium, bld 4.7 3.3 - 4.9 mmol/L Additional Labs: Ua: No results found for: SPECGRAVUR, DOUG, RBCU, LEUKOCYTESU, GLUCOSEU, UROBILINOGEN, SQUAMEPIU, NITRITEU, KETONESU Vitals: 24hr Min/Max: Temp Min: 36.5 ??C (97.7 ??F) Max: 37 ??C (98.6 ??F) Pulse Min: 70 Max: 88 BP Min: 128/80 Max: 154/84 Resp Min: 16 Max: 20 SpO2 Min: 93 % Max: 96 % Most Recent : Vitals: 06/18/20 0515 BP: 128/80 Pulse: 70 Resp: 16 Temp: 36.9 ??C (98.4 ??F) SpO2: 96% I/O last 2 completed shifts: In: 300 [P.O.:300] Out: 1625 [Urine:1625] No intake/output data recorded. Assessment/Plan Principal Problem: Autosomal dominant polycystic kidney disease Active Problems: Acute postoperative abdominal pain Mr. Natividad Browne is a 60 y.o. male who underwent right Nx??for??ADPKD. PLAN 7-day Keflex Renal c/s, vasc sx c/s PT/OT Pain control Regular diet; bowel regimen SCDs/SQH For any questions or concerns, please contact urology Saturday - Saturday, 6am-6pm at . For nights, weekends or holidays, please call the nailing machine operator and ask for the urology resident online merchant. Belkys Mccormick MD [phone] 06/18/2020 Cosigned by Antonio Melendez MD at 06/19/2020 8:14 AM CDT Associated attestation - Antonio Melendez MD - 06/19/2020 8:14 AM CDT I have seen and examined the patient on 06/18/2020. I agree with the findings and plan of care as documented in the resident's/fellow's note. * Carroll Ferro MD - 06/18/2020 6:52 AM CDT NEPHROLOGY CONSULT SUBSEQUENT VISIT NOTE CHIEF COMPLAINT: YOLANDA on CKD INTERVAL HISTORY: There were no acute events overnight. Patient denies any worsening symptoms. REVIEW OF SYSTEMS: As per HPI. All other systems are negative. CURRENT MEDICATIONS: acetaminophen, 1,000 mg, oral, Q6H KITA amLODIPine, 5 mg, oral, QAM heparin, 5,000 Units, subcutaneous, Q8H KITA lactulose, 10 g, oral, BID metoprolol tartrate, 25 mg, oral, BID pantoprazole DR, 40 mg, oral, Daily polyethylene glycol, 17 g, oral, BID senna-docusate, 1 tablet, oral, BID sodium chloride 0.9%, 0.5-20 mL, intra-catheter, Q8H KITA tamsulosin, 0.4 mg, oral, Daily with dinner PHYSICAL EXAMINATION: GENERAL: no acute distress VITALS: BP 128/80 (BP Location: Right arm, Patient Position: Lying) Pulse 70 Temp 36.9 ??C (98.4 ??F) (Oral) Resp 16 Ht 185.4 cm (6' 1 ) Wt 97.5 kg (215 lb) SpO2 96% BMI 28.37 kg/m?? Temp: [36.5 ??C (97.7 ??F)-37 ??C (98.6 ??F)] 36.9 ??C (98.4 ??F) Pulse: [70-88] 70 BP: (127-154)/(72-89) 128/80 Resp: [16-20] 16 SpO2: [93 %-96 %] 96 % Temp Min: 36.5 ??C (97.7 ??F) Max: 37 ??C (98.6 ??F) Pulse Min: 70 Max: 88 BP Min: 127/84 Max: 154/84 Resp Min: 16 Max: 20 SpO2 Min: 93 % Max: 96 % HENT: MM pink and moist. Oropharynx clear. EYES: sclera anicteric CVS: S1 S2 normal, no murmurs, rub or gallop. No LE edema. LUNGS: clear to auscultation bilaterally ABD: Soft, distended, non-tender, BS normal. No masses SKIN: No rash ASPHALT SPREADER OPERATOR: Alert Ox3. No focal motor deficits PSYCH: Pleasant, cooperative, appropriate affect MSK: No joint swelling or tenderness Date 06/17/20699 - 06/18/2065806/18/20699 - 06/19/20 0659 Shift [id number] 7657-6460 24 Hour Total 1438-1781 1201-1987 24 Hour Total INTAKE P.O. 300 300 Shift Total(mL/kg) 300(3.1) 300(3.1) OUTPUT Urine(mL/kg/hr) 825(0.7) 800 1625 Shift Total(mL/kg) 825(8.5) 800(8.2) 1625(16.7) NET -825 -500 -1325 Weight (kg) 97.5 97.5 97.5 97.5 97.5 97.5 LABORATORY DATA: Recent Labs Lab Units 06/17/20224206/16/20232506/15/20 2250 WBC K/cumm 8.0 11.8* 10.0* HEMOGLOBIN g/dL 11.3* 11.7* 10.6* PLATELETS K/cumm 258 253 234 Recent Labs Lab Units 06/17/20224206/16/20232506/15/20 2250 SODIUM mmol/L 140 136 136 POTASSIUM PLASMA mmol/L 4.7 5.1* 4.9 CHLORIDE mmol/L 106 103 100 CO2 mmol/L * 21* 22 BUN SERUM mg/dL 71* 65* 57* CREATININE mg/dL 5.49* 5.38* 4.89* CALCIUM mg/dL 8.8 9.0 8.2* MAGNESIUM mg/dL 2.2 -- 1.9 PHOSPHORUS PLASMA mg/dL 4.4 -- 4.6* Lab Results Component Value Date PTH 79 (H) 04/04/2020 CALCIUM 8.8 06/17/2020 CAION 4.87 06/14/2020 PHOS 4.4 06/17/2020 Lab Results Component Value Date IRON 71 04/04/2020 TIBC 248 (L) 04/04/2020 TRANSFERSAT 29 04/04/2020 FERRITIN 369 04/04/2020 ASSESSMENT AND PLAN ?? #YOLANDA on ADPKD - Presenting with enlarged kidneys with numerous cysts on imaging, abdominal distension, SOB - Cr 2.33 on 06/06, Cr today yesterday evening was 5.49 mildly worsened from 5.38 yesterday am??following R nephrectomy 06/14 - UOP ~ 1.3L yesterday. - rise in Cr likely secondary to expected decrease in GFR following removal of R kidney. - Likely now Cr plateauing. - Vein mapping done, vascular following. - Patient will follow up with his outpatient vice president safety and is currently stable from renal standpoint for discharge but patient will need to follow up in 2 weeks with his vice president safety. - patient still with good UOP. - Avoid nephrotoxic drugs. - Renal dose medications. - Strict I/O. ?? #Secondary Hyperparathyroidism -PTH 79 on 04/04/20 -Phos 4.6, 25-OH Vit D decreased at 25 #Metabolic acidosis - CO2 21. - Reccm sodium bicarb tabs 650 mg TID. We will sign off, patient is ok from renal standpoint for discharge and will follow up with his primary vice president safety for further planning of HD needs. Carroll Meyer MD Renal Fellow. Consult 2 Service Contact (phone): [phone] After hours and weekends: please page [phone] Cosigned by Markus Couch MD PhD at 06/18/2020 12:13 PM CDT Associated attestation - Markus Couch MD PhD - 06/18/2020 12:13 PM CDT I have seen and examined the patient today, . I agree with the findings and plan of care as documented in the resident's/fellow's note. For discharge today. He will follow up with his local vice president safety within two weeks. Markus Couch MD PhD * Gabriela Wade, PT - 06/17/2020 3:50 PM CDT As supervising PT, I agree with and cosign all documentation provided on this date by SPT. Gabriela Schuler, PT 06/17/20 3:50 PM * Carroll Ferro MD - 06/17/2020 11:08 AM CDT NEPHROLOGY CONSULT SUBSEQUENT VISIT NOTE CHIEF COMPLAINT: YOLANDA on CKD INTERVAL HISTORY: There were no acute events overnight. Patient reported that he is feeling a little better today. REVIEW OF SYSTEMS: As per HPI. All other systems are negative. CURRENT MEDICATIONS: acetaminophen, 1,000 mg, oral, Q6H KITA amLODIPine, 5 mg, oral, QAM heparin, 5,000 Units, subcutaneous, Q8H KITA lactulose, 10 g, oral, BID metoprolol tartrate, 25 mg, oral, BID pantoprazole DR, 40 mg, oral, Daily polyethylene glycol, 17 g, oral, BID senna-docusate, 1 tablet, oral, BID sodium chloride 0.9%, 0.5-20 mL, intra-catheter, Q8H KITA PHYSICAL EXAMINATION: GENERAL: no acute distress VITALS: BP 127/84 (BP Location: Right arm, Patient Position: Lying) Pulse 88 Temp 36.5 ??C (97.7 ??F) (Oral) Resp 19 Ht 185.4 cm (6' 1 ) Wt 97.5 kg (215 lb) SpO2 93% BMI 28.37 kg/m?? Temp: [36.5 ??C (97.7 ??F)-37.1 ??C (98.8 ??F)] 36.5 ??C (97.7 ??F) Pulse: [65-88] 88 BP: (127-161)/(80-92) 127/84 Resp: [16-20] 19 SpO2: [90 %-94 %] 93 % Temp Min: 36.5 ??C (97.7 ??F) Max: 37.1 ??C (98.8 ??F) Pulse Min: 65 Max: 88 BP Min: 127/84 Max: 161/92 Resp Min: 16 Max: 20 SpO2 Min: 90 % Max: 94 % HENT: MM pink and moist. Oropharynx clear. EYES: sclera anicteric CVS: S1 S2 normal, no murmurs, rub or gallop. No LE edema. LUNGS: clear to auscultation bilaterally ABD: Soft, distended, non-tender, BS normal. No masses SKIN: No rash ASPHALT SPREADER OPERATOR: Alert Ox3. No focal motor deficits PSYCH: Pleasant, cooperative, appropriate affect MSK: No joint swelling or tenderness Date 06/16/20699 - 06/17/2065806/17/20699 - 06/18/20 0659 Shift 6261-5469 5003-2007 24 Hour Total 9531-5936 7265-8438 24 Hour Total INTAKE P.O. 120 0 120 Shift Total(mL/kg) 120(1.2) 0(0) 120(1.2) OUTPUT Urine(mL/kg/hr) 725(0.6) 550(0.5) 1275(0.5) 150 150 Shift Total(mL/kg) 725(7.4) 550(5.6) 1275(13.1) 150(1.5) 150(1.5) NET -605 -550 -1155 -150 -150 Weight (kg) 97.5 97.5 97.5 97.5 97.5 97.5 LABORATORY DATA: Recent Labs Lab Units 06/16/20232506/15/20224906/15/20 0414 WBC K/cumm 11.8* 10.0* 13.2* HEMOGLOBIN g/dL 11.7* 10.6* 10.5* PLATELETS K/cumm 253 234 244 Recent Labs Lab Units 06/16/20232506/15/20224906/15/20 0414 SODIUM mmol/L 136 136 139 POTASSIUM PLASMA mmol/L 5.1* 4.9 4.9 CHLORIDE mmol/L 103 100 106 CO2 mmol/L 21* 22 21* BUN SERUM mg/dL 65* 57* 56* CREATININE mg/dL 5.38* 4.89* 4.13* CALCIUM mg/dL 9.0 8.2* 7.9* MAGNESIUM mg/dL -- 1.9 -- PHOSPHORUS PLASMA mg/dL -- 4.6* -- Lab Results Component Value Date PTH 79 (H) 04/04/2020 CALCIUM 9.0 06/16/2020 CAION 4.87 06/14/2020 PHOS 4.6 (H) 06/15/2020 Lab Results Component Value Date IRON 71 04/04/2020 TIBC 248 (L) 04/04/2020 TRANSFERSAT 29 04/04/2020 FERRITIN 369 04/04/2020 ASSESSMENT AND PLAN ?? #YOLANDA on ADPKD -Presenting with enlarged kidneys with numerous cysts on imaging, abdominal distension, SOB -Cr 2.33 on 06/06, now uptrending to 5.38??following R nephrectomy 06/14 -UOP ~ 1.3L yesterday. -rise in Cr likely secondary to expected decrease in GFR following removal of R kidney but concerning for worsening Cr level. - Vein mapping done yesterday, Reccm consulting vascular surgey for planning of AVF/AVG. - Patient may need HD sooner then later. - patient still with good UOP. -will need management of CKD based on new GFR. - Plan to monitor Cr trend. - Avoid nephrotoxic drugs. - Renal dose medications. - Strict I/O. ?? #Secondary Hyperparathyroidism -PTH 79 on 04/04/20 -Phos 4.6, 25-OH Vit D decreased at 25 #Metabolic acidosis - CO2 21. - Reccm sodium bicarb tabs 650 mg TID. Carroll Meyer MD Renal Fellow. Consult 2 Service Contact (phone): [phone] After hours and weekends: please page [phone] Cosigned by Markus Couch MD PhD at 06/17/2020 2:11 PM CDT Associated attestation - Markus Couch MD PhD - 06/17/2020 2:11 PM CDT I have seen and examined the patient today . I agree with the findings and plan of care as documented in the resident's/fellow's note. Cr is still creeping up s/p nephrectomy. Please consult vascular surgery for AVF/AVG evaluation. Markus Couch MD PhD * Barry Littlejohn MD - 06/17/2020 7:00 AM CDT Daily Progress Subjective Mr. Natividad Browne is a 60 y.o. male who underwent right Nx??for??ADPKD. Interval History: Pain well controlled -n/-v +OOB +f/+BM Objective Physical Exam: General: No acute distress, resting comfortably Pulmonary: Nonlabored breathing Abdomen: Soft, appropriately TTP, mildly distended.. Incisions CDI with dermabond : no dang; voiding CYU Extremities: no edema, wearing SCD's Lab/Radiology/Diagnostic Review: Laboratory review: Lab results in the last 24 hours: Recent Results (from the past 24 hour(s)) CBC without differential Collection Time: 06/16/20 11:26 PM Result Value Ref Range WBC 11.8 (H) 3.8 - 9.9 K/cumm Hgb 11.7 (L) 13.0 - 17.5 g/dL Hct 35.6 (L) 38.9 - 50.3 % Plt 253 150 - 400 K/cumm MPV 10.4 9.1 - 12.3 fL RBC 3.69 (L) 4.30 - 5.80 M/cumm MCV 96.5 (H) 81.3 - 96.4 fL MCH 31.7 27.1 - 33.3 pg MCHC 32.9 32.3 - 35.7 g/dL RDW CV 13.2 11.1 - 14.9 % RDW SD 46.9 35.7 - 48.1 fL NRBC abs 0.00 0.00 - 0.01 K/cumm Basic metabolic panel Collection Time: 06/16/20 11:26 PM Result Value Ref Range Sodium 136 135 - 145 mmol/L Potassium, pl 5.1 (H) 3.3 - 4.9 mmol/L Chloride 103 97 - 110 mmol/L CO2 21 (L) 22 - 32 mmol/L Anion gap 12 2 - 15 mmol/L BUN 65 (H) 8 - 25 mg/dL Creatinine 5.38 (H) 0.80 - 1.30 mg/dL Glucose 110 70 - 199 mg/dL Calcium 9.0 8.5 - 10.3 mg/dL Additional Labs: Ua: No results found for: SPECGRAVUR, DOUG, RBCU, LEUKOCYTESU, GLUCOSEU, UROBILINOGEN, SQUAMEPIU, NITRITEU, KETONESU Vitals: 24hr Min/Max: Temp Min: 36.5 ??C (97.7 ??F) Max: 37.1 ??C (98.8 ??F) Pulse Min: 65 Max: 88 BP Min: 127/84 Max: 161/92 Resp Min: 16 Max: 20 SpO2 Min: 90 % Max: 94 % Most Recent : Vitals: 06/17/20 0842 BP: 127/84 Pulse: 88 Resp: 19 Temp: 36.5 ??C (97.7 ??F) SpO2: 93% I/O last 2 completed shifts: In: 120 [P.O.:120] Out: 1275 [Urine:1275] I/O this shift: In: - Out: 150 [Urine:150] Assessment/Plan Principal Problem: Autosomal dominant polycystic kidney disease Active Problems: Acute postoperative abdominal pain Mr. Natividad Browne is a 60 y.o. male who underwent right Nx??for??ADPKD. PLAN Renal following, appreciate recs; will get VS cs today for fistula planning Pain control Regular diet; bowel regimen SCDs/SQH Cosigned by Valencia Khan MD at 06/17/2020 11:33 AM CDT * Gatito Barrientos MD - 06/16/2020 3:19 PM CDT Daily Progress Subjective Cr increase from 4.13 to 4.89. UOP ~3L overnight. Objective Vitals: 24hr Min/Max: Temp Min: 36.8 ??C (98.2 ??F) Max: 37 ??C (98.6 ??F) Pulse Min: 59 Max: 72 BP Min: 122/77 Max: 154/85 Resp Min: 16 Max: 18 SpO2 Min: 90 % Max: 94 % Most Recent: Vitals: 06/16/20 1215 BP: 142/85 Pulse: 66 Resp: 18 Temp: 36.8 ??C (98.2 ??F) SpO2: 94% I&Os: I/O last 2 completed shifts: In: 1240 [P.O.:1240] Out: 2950 [Urine:2950] I/O this shift: In: 120 [P.O.:120] Out: 725 [Urine:725] Physical Exam: Constitutional:??NAD, well developed, well nourished. Eyes:??PERRL, EOMI, anicteric. HENT:??NCAT. Oropharynx normal,??moist??mucus membranes. Lungs:??CTAB, no W/R/R. Comfortable on room air. Cardiovascular: RRR, normal S1 and S2, no murmurs, no JVD. Gi:?Soft, non-tender, non-distended, normal bowel sounds, no organomegaly. Skin:??Incision in LLQ C/D/I, bruising surrounding incision with no drainage. Extremities: Normal without edema or cyanosis Lymph:?No cervical, supraclavicular, axillary or inguinal adenopathy Neurologic:??AOx4, CNII-XII intact, normal strength and sensation. Psychiatric:?Normal affect and mood. Lab/Radiology/Diagnostic Review: Laboratory review: Lab results in the last 24 hours: Recent Results (from the past 24 hour(s)) Basic metabolic panel Collection Time: 06/15/20 10:50 PM Result Value Ref Range Sodium 136 135 - 145 mmol/L Potassium, pl 4.9 3.3 - 4.9 mmol/L Chloride 100 97 - 110 mmol/L CO2 22 22 - 32 mmol/L Anion gap 14 2 - 15 mmol/L BUN 57 (H) 8 - 25 mg/dL Creatinine 4.89 (H) 0.80 - 1.30 mg/dL Glucose 96 70 - 199 mg/dL Calcium 8.2 (L) 8.5 - 10.3 mg/dL CBC without differential Collection Time: 06/15/20 10:50 PM Result Value Ref Range WBC 10.0 (H) 3.8 - 9.9 K/cumm Hgb 10.6 (L) 13.0 - 17.5 g/dL Hct 34.0 (L) 38.9 - 50.3 % Plt 234 150 - 400 K/cumm MPV 10.2 9.1 - 12.3 fL RBC 3.40 (L) 4.30 - 5.80 M/cumm MCV 100.0 (H) 81.3 - 96.4 fL MCH 31.2 27.1 - 33.3 pg MCHC 31.2 (L) 32.3 - 35.7 g/dL RDW CV 13.5 11.1 - 14.9 % RDW SD 50.5 (H) 35.7 - 48.1 fL NRBC abs 0.00 0.00 - 0.01 K/cumm Phosphorus Collection Time: 06/15/20 10:50 PM Result Value Ref Range Phosphorus, pl 4.6 (H) 2.3 - 4.5 mg/dL Magnesium Collection Time: 06/15/20 10:50 PM Result Value Ref Range Magnesium 1.9 1.4 - 2.5 mg/dL Vitamin D 25 hydroxy Collection Time: 06/15/20 10:50 PM Result Value Ref Range Vitamin D, 25-hydroxy 25 (L) 30 - 80 ng/mL Assessment/Plan Principal Problem: Autosomal dominant polycystic kidney disease Active Problems: Acute postoperative abdominal pain Mr. Browne is a 60yo M with PMHx of ADPKD, ID ([facility] 2018 with no obstruction, thought to be coronary spasms), HTN, asthma that is s/p R nephrectomy on 06/15. ?? -presenting with enlarged kidneys with numerous cysts on imaging, abdominal distension, SOB -Cr 2.33 on 06/06, now 4.13 following R nephrectomy 06/14 -patient states he has eaten very little since procedure -has been on IVF D5 1/2NS @ 125cc for almost 24 hours -UOP 1.3L yesterday ?? Plan: ?? #YOLANDA -rise in Cr likely secondary to expected decrease in GFR following removal of R kidney -patient still with good UOP -will need management of CKD based on new GFR -recommend vein mapping ?? #Secondary Hyperparathyroidism -PTH 79 on 04/04/20 -Phos 4.6, 25-OH Vit D decreased at 25 ? Renal??Consult 2 Service Contact (phone): [phone] After hours and weekends: please page [phone] ?? Gatito Barrientos MD PGY-3, Internal Medicine [facility] Cosigned by Markus Couch MD PhD at 06/16/2020 6:02 PM CDT Associated attestation - Markus Couch MD PhD - 06/16/2020 6:02 PM CDT I have seen and examined the patient today, . I agree with the findings and plan of care as documented in the resident's/fellow's note. Markus Couch MD PhD * Gabriela Wade, PT - 06/15/2020 2:40 PM CDT As supervising PT, I agree with and cosign all documentation provided on this date by SPT. Gabriela Schuler, PT 06/15/20 2:40 PM * Yenifer Calderón RN - 06/15/2020 8:09 AM CDT 06/15/20 0807 Information Information Obtained From Patient Referral Data Referral Source Doctor Of Audiology Referral Reason Discharge Planning Prior to Admission Primary Caregiver Self Support System Spouse/Significant Other Support system contact info (name, phone, availablity) spouseBlanquita Home Care Services No Durable Medical Equipment None Living Arrangements Spouse/significant other Type of Residence Private residence Steps in home? Yes, Outside of home;Yes, Inside home Number of steps inside: 14 steps Number of steps outside: 1 steps Financial Resource Payor Source Commercial Potential Discharge Needs Anticipated discharge level of care Private residence Pt/Family agrees with Anticipated Level of Care Yes Patient expects to be discharged to: Private residence Dialysis No Behavioral Health Services No Impression: Mr. Natividad Browne is a 60 y.o. male who underwent right Nx??for??ADPKD Additional Information/Options Discussed: Patient interviewed at bedside for initial assessment. Address and phone verified to face sheet. HHC: none Transportation: spouseBlanquita Problem: ensure safe discharge when medically stable Plan/Goal Includes: CM to follow for needs Insurance verified [facility] Admit Source: non health care facility PCP: verified as Gerardo Shah MD Pharmacy: Prescription coverage verified Based on a comprehensive family assessment, assistance with instrumental activities of daily livingafter discharge will be provided by patient. Through the course of our work I determined that patient possesses the skill and ability to provideand monitor the care of the patient when he or she returns home. Patient has the capacity to provide/monitor/arrange for the care of the patient. Finally, we determined that patient has the knowledgeof available resources and that combining them with their existing resources will suffice to sustain and care for the patient when he or she returns home. The treatment team is aware of this information. All are in agreement with the aftercare plan. * Barry Littlejohn MD - 06/15/2020 7:00 AM CDT Daily Progress Subjective Mr. Natividad Browne is a 60 y.o. male who underwent right Nx??for??ADPKD. Interval History: Pain well controlled -n/-v +OOB -f Objective Physical Exam: General: No acute distress, resting comfortably Pulmonary: Nonlabored breathing Abdomen: Soft, appropriately TTP, nondistended.?? Incisions CDI with dermabond : dang draining cy urine Extremities: no edema, wearing SCD's Lab/Radiology/Diagnostic Review: Laboratory review: Lab results in the last 24 hours: Recent Results (from the past 24 hour(s)) Basic metabolic panel Collection Time: 06/15/20 4:14 AM Result Value Ref Range Sodium 139 135 - 145 mmol/L Potassium, pl 4.9 3.3 - 4.9 mmol/L Chloride 106 97 - 110 mmol/L CO2 21 (L) 22 - 32 mmol/L Anion gap 12 2 - 15 mmol/L BUN 56 (H) 8 - 25 mg/dL Creatinine 4.13 (H) 0.80 - 1.30 mg/dL Glucose 149 70 - 199 mg/dL Calcium 7.9 (L) 8.5 - 10.3 mg/dL CBC without differential Collection Time: 06/15/20 4:14 AM Result Value Ref Range WBC 13.2 (H) 3.8 - 9.9 K/cumm Hgb 10.5 (L) 13.0 - 17.5 g/dL Hct 33.4 (L) 38.9 - 50.3 % Plt 244 150 - 400 K/cumm MPV 10.3 9.1 - 12.3 fL RBC 3.39 (L) 4.30 - 5.80 M/cumm MCV 98.5 (H) 81.3 - 96.4 fL MCH 31.0 27.1 - 33.3 pg MCHC 31.4 (L) 32.3 - 35.7 g/dL RDW CV 13.5 11.1 - 14.9 % RDW SD 49.2 (H) 35.7 - 48.1 fL NRBC abs 0.00 0.00 - 0.01 K/cumm Additional Labs: Ua: No results found for: SPECGRAVUR, DOUG, RBCU, LEUKOCYTESU, GLUCOSEU, UROBILINOGEN, SQUAMEPIU, NITRITEU, KETONESU Vitals: 24hr Min/Max: Temp Min: 36.5 ??C (97.7 ??F) Max: 36.8 ??C (98.2 ??F) Pulse Min: 56 Max: 80 BP Min: 107/72 Max: 140/68 Resp Min: 11 Max: 20 SpO2 Min: 92 % Max: 99 % Most Recent : Vitals: 06/15/20 1218 BP: 140/68 Pulse: 59 Resp: 18 Temp: 36.5 ??C (97.7 ??F) SpO2: 94% I/O last 2 completed shifts: In: 1686.7 [P.O.:120; I.V.:1566.7] Out: 1320 [Urine:1270; Blood:50] I/O this shift: In: 120 [P.O.:120] Out: 750 [Urine:750] Assessment/Plan Principal Problem: Autosomal dominant polycystic kidney disease Active Problems: Acute postoperative abdominal pain Mr. Natividad Browne is a 60 y.o. male who underwent right Nx??for??ADPKD. PLAN Pain control OOB/AMB Nephrology cs SQH/SCDs Full diet Cosigned by Valencia Khan MD at 06/15/2020 2:33 PM CDT documented in this encounter H&P Notes * Valencia Khan MD - 06/14/2020 7:05 AM CDT I have reviewed the H&P, examined the patient, and endorse the findings as written. Plan of Care : Based on the above findings, I consider Natividad Browne to be an acceptable risk for : Procedure(s): XI NEPHRECTOMY - LAPAROSCOPIC ROBOTIC ASSISTED Source Note - Yazmin HernandezEZEQUIEL coffman - 06/06/2020 8:06 AM CDT Images from the original note were not included. [facility] for Preoperative Assessment and Planning Preoperative Evaluation Record Evaluation type/location: [facility] Planned procedure site: [facility] OR (Pod 1) Date: 06/06/20 Anesthesia Evaluation Procedure(s): XI NEPHRECTOMY - LAPAROSCOPIC ROBOTIC ASSISTED Pre-Op Diagnosis Codes: * Autosomal dominant polycystic kidney disease [Q61.2] HISTORY HPI 60 y/o male w/ symptomatic polycystic kidney disease and for RIGHT laparoscopic robotic assisted nephrectomy Past Medical History Information obtained from: patient and chart. Neurological Pertinent negatives: seizures; CVA/stroke and TIA Cardiovascular + Hypertension + ID (ID 2018 s/p catheterization - no CAD and presumed coronary spasm event in distribution of LAD- sx at time of ID were indigestion type pain for ~24 hours ) Number of ID's: 1. Date of last ID: 2017. + Current valvular disease - MR - mild; + Other arrhythmia (SB 50s - pt reports hx of bradycardia) - bradycardia. Pertinent negatives: CAD ; atrial fibrillation; pacemaker/ICD; PVD; DVT/PE and negative for CHF Comments: F/b Dr. Nay Shrestha [place] w/ presumed history of coronary spasm per cardiology documentation. [facility] The patient was seen by myself I [...] history of Emperatriz positive Gastrointestinal + GERD - on daily therapy. Symptoms weekly but < daily. + Hiatal hernia Renal / + Renal disease (polycystic kidney disease - stage IV CKD not yet on [employer]. 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 Strickland) - CKD Pertinent negatives: dialysis Musculoskeletal/Pain + Chronic pain (low back ) Endocrine / Other Pertinent negatives: diabetes mellitus; thyroid disease and cancer history Functional Capacity Functional capacity: <4 METs Comments: NUNEZ w/ 1 flight of stairs if going up quickly ongoing for ~ 1 year. Attributes worsening to cysts pushing up on diaphragm Review of Systems + SOB (jntermittent NUNEZ - see above ) + chest pain (last episode 2 weeks ago Linda GONZALEZ - felt like spasm in epigastric region. Resolved in 3-4 hours. Seen at OSH ED. NO TNG use since 2018) + orthopnea (sleeps on stomach w/ 1 pillow w/o dyspnea. Laying on back is difficult to breathe attributed to cysts ) + pedal edema (mild chronic - improves w/ elevation ) + dizziness (intermittent w/ quick position changes - chronic and unchanged ) + chronic pain (low back ) + numbness/tingling (bilateral hands/UEs intermittent ) + heartburn (worsening attributed to PKD ) + nausea/vomiting (intermittent N/V attributed to symptomatic PKD - last episode of vomiting was 03/2020) + dysphagia (esophagus twists at times - intermittent ) + dentures/partials (upper denture) + abdominal pain (intermittent epigastric ) Pertinent negatives: productive cough; wheezing; recent cold/flu; fever; palpitations; PND; previous transfusion; melena/hematochezia; easy bruising; bleeding problems; syncope; muscle weakness; hardof hearing; vision loss; diarrhea; chipped/loose teeth; diaphoresis and no unexpected weight change Comments: Pruritis attributed to CKD PAT Summary and Plans Cardiac risk classification of planned procedure: intermediate cardiac risk. Initial preoperative evaluation discussed with: Raymundo Younger MD Additional comments: Natividad Browne is a 60 y.o. male who is being evaluated prior to undergoing an intermediate cardiac risk surgery. Revised Cardiac Risk Index factors are (none) for a totalRCRI of 0 out of 6. Functional capacity is <4 METs (specifically: NUNEZ w/ 1 flight of stairs if going up quickly ongoing for ~ 1 year). >>> Moderately severe obstructive ventilatory defect/ air trapping and hyperinflation per PFTs 03/2020. Pt reports known hx of COPD/asthma w/ prior smoking history 40 years. Patient denies having any prescribed inhalers. NUNEZ noted for ~1 year. Faxed results of PFTs to PCP requesting they please contact patient to advise any further treatment based on these findings to optimize him as muchas possible prior to surgery. Patient also made aware of this plan and advised he reach out to his PCP for further instructions. Reports episode of spasm like CP ~ 2 weeks ago and he was evaluated at hospital in [facility] - felt like spasm in epigastric region. Patient had negative stress test 03/[facility]. Will retrieve records for chart completion. The patient is on aspirin therapy and has a history of ID 2018 presumed 2/2 coronary artery spasm per cardiology documentation. For the proposed procedure, the risk of increased bleeding likely outweighs the benefits of preoperative antiplatelet therapy. If the surgeon agrees with risk assessment, we would support stopping aspirin up to 7-10 days prior to the procedure and resuming therapy when feasible in the postoperative period. The patient was instructed verbally and written to hold aspirin1 week prior to surgery (per CPAP/urology protocol) and verbalized understanding. Please call the CPAP attending ([phone]) with any questions. Obstructive sleep apnea (SHAHEEN) screening status is STOP-Bang=3 suggesting moderate risk for SHAHEEN, bicarbonate value pending. The patient is at elevated risk for obstructive sleep apnea (SHAHEEN) per STOP-BANG screening questionnaire results. We do not feel that preoperative SHAHEEN testing is likely to outweigh the downsides of delaying surgery and we recommend that the patient talk to their primary doctoror other clinician after surgery about getting tested for SHAHEEN. Patient with No known exposure to COVID19 and no concerning symptoms of COVID19. Plan for pre-procedure COVID19 testing: Surgery date greater than 4 days from today. Pre-procedure COVID19 testing scheduled to be performed on 06/10/2020 at [facility]. . Blood bank needs for day of procedure: Type and Screen only Pending labs/tests include: CBC BMP T&S Urine culture Preoperative evaluation performed by Yazmin Hernandez NP on 06/06/20 at 0928 AM. . Follow up note OSH D/c summary and ECG 04/2020 reviewed and w/o unexpected findings. Lab review and PCP plan for untreated COPD pending. Follow-up completed by: Yazmin Hernandez NP on 06/06/20 at 7:03 PM Follow up note Labs reviewed and are significant for: K+ 5.3. Discussed with CPAP attending, to recheck on DOS andeducate pt on limiting high K+ foods. Spoke with pt discussed K+ foods and to limit between now andDOS and he verbalized understanding. Order placed for DOS K+. Also asked if pt has reached out to PCP and he states he will call this afternoon. Will follow up end of the week regarding pulmonary optimization. Labs reviewed and are significant for a total CO2 of 29 . With a STOP-Bang score of 3-4, this qualifies the patient as high risk for severe SHAHEEN. SHAHEEN order set initiated. Awaiting urine culture. Surgeon's office reviews laboratory results independently. Follow-up completed by: Nellie Medina NP on 06/07/20 at 12:55 PM Discussed with: Yvonne Gamboa MD Follow up note Labs reviewed and are without significant findings (urine culture, no growth). Surgeon's office reviews laboratory results independently. Awaiting PCP plan for untreated COPD. Follow-up completed by: Janel Wheat NP on 06/08/20 at 8:12 AM Follow up note Spoke w/ patient and he has not heard from PCP yet regarding untreated COPD, however he found inhalers at home from when he had pneumonia in the past (Symbicort and albuterol inhaler). I advised him to consider taking symbicort BID or per previous rx instructions prior to OR and encouraged him to touch base w/ his PCP. He was educated to rinse his mouth well after using symbicort. CPAP evaluation complete Follow-up completed by: Yazmin Hernandez NP on 06/10/20 at 11:24 AM ANESTHESIA HISTORY: Patient denies any prior anesthesia or surgery problems EXCEPT PONV. Patient Active Problem List Diagnosis ??? Other chest pain ??? End stage renal disease (CMS/HCC) ??? Polycystic kidney disease, autosomal dominant ??? Stage 4 chronic kidney disease (CMS/HCC) ??? Pre-transplant evaluation for kidney transplant ??? Secondary hyperparathyroidism (CMS/HCC) ??? Autosomal dominant polycystic kidney disease Past Medical History: Diagnosis Date ??? Anemia of chronic disease ??? Arthritis ??? Asthma ??? CKD (chronic kidney disease) ??? GERD (gastroesophageal reflux disease) ??? Heart attack (CMS/HCC) ??? Hiatal hernia ??? Hypertension ??? Pneumonia ??? Polycystic kidney disease ??? PONV (postoperative nausea and vomiting) Past Surgical History: Procedure Laterality Date ??? COLONOSCOPY 03/2020 ??? OTHER SURGICAL HISTORY 1973 Ureteral surgery No Known Allergies Taking? Last Dose Start Date End Date Provider amLODIPine (NORVASC) 5 mg tablet 06/06/2020 12/20/19 -- Donaldo Tee MD TAKE ONE TABLET BY MOUTH DAILY Patient taking differently: Take 5 mg by mouth every morning Notes: ` aspirin 81 mg tablet 06/06/2020 -- -- Historical Provider, cyanocobalamin (Vitamin B-12) 1,000 mcg tablet 06/06/2020 -- -- Historical Provider, lactulose solution 10 gram/15mL Past Week 02/22/20 -- Historical Provider, metoprolol (LOPRESSOR) 25 mg tablet 06/06/2020 12/20/19 -- Donaldo Tee MD TAKE ONE TABLET BY MOUTH TWICE A DAY Patient taking differently: Take 25 mg by mouth 2 (two) times a day nitroglycerin (NITROSTAT) 0.4 mg SL tablet More than a month 09/30/18 -- Historical Provider, omeprazole (PriLOSEC) 40 mg capsule 06/06/2020 11/27/18 -- Historical Provider, sennosides (SENNA ORAL) 06/05/2020 -- -- Historical Provider, Current Outpatient Medications: ??? amLODIPine (NORVASC) 5 mg tablet ??? aspirin 81 mg tablet ??? cyanocobalamin (Vitamin B-12) 1,000 mcg tablet ??? lactulose solution 10 gram/15mL ??? metoprolol (LOPRESSOR) 25 mg tablet ??? omeprazole (PriLOSEC) 40 mg capsule ??? sennosides (SENNA ORAL) ??? nitroglycerin (NITROSTAT) 0.4 mg SL tablet Social History Tobacco Use Smoking Status Former Smoker ??? Packs/day: 1.50 ??? Years: 40.00 ??? Pack years: 60.00 ??? Start date: 04/11/1978 ??? Last attempt to quit: 2017 ??? Years since quittin.6 Smokeless Tobacco Never Used Substance and Sexual Activity Alcohol Use No Substance and Sexual Activity Drug Use No Family History Problem Relation Age of Onset ??? Aneurysm Mother ??? Kidney disease Mother ??? Cancer Father ??? Kidney disease Sister ??? PONV Sister ??? Anesthesia problems Neg Hx Vitals: 06/06/20 0820 06/06/20 0824 BP: 126/79 130/82 Pulse: 59 SpO2: 100% Relevant diagnostics: ECG(s): OSH 05/15/2020: SB, 53 bpm 04/04/2020: SB, 52 bpm Stress test(s): 04/11/2020 DSE: Impression: Maximal Dobutamine Stress Echocardiogram, NEGATIVE for myocardial ischemia.Normal global LV Myocardial longitudinal function and LV strain pattern. LV Global Function: Normal left ventricular systolic Function. Baseline Echo Comments: Normal LV+RV normal systolic function - No wall abnormalities, Mild LVH. Normal LA+RA size. EF 71%. Doppler/CF Comments: Mild MR. ?? PFT(s): 04/04/2020: FVC PRED 0.05 - 9.99 Liters 4.91 FVC PRE 0 - 12 Liters 4.26 FVC %PRE PRED 0 - 300 % 87 FEV1 PRED 0.05 - 9.99 Liters 3.78 FEV1 PRE 0 - 12 Liters 2.01 FEV1 %PRE PRED 0 - 300 % 53 FEV1/FVC PRED 1 - 99 % 77 FEV1/FVC PRE 0 - 12 % 47 IMPRESSION: There is a moderately severe obstructive ventilatory defect. There is air trapping and hyperinflation. There is no impairment of alveolar gas exchange by DLCO. 6 min walk Interpretation: Breathing room air, SpO2 is normal at rest and during exercise sufficient to increase pulse from 61to 91 b/min, SpO2 is stable. On this basis, SpO2 is adequate at rest and while walking breathing room air. This level of exercise is associated with no significant change of FEV1. Vascular studies: N/A Other: CXR 04/04/2020: IMPRESSION: There are no prior chest radiographs at [facility] for comparison. The heart and mediastinal contours are normal. There is no mass or consolidation. There is no lymphadenopathy. There are no pleural effusions. There is no pneumothorax. There is old granulomatous disease. CT abd/pelvis 04/04/2020: IMPRESSION: ?? 1. Minimal abdominal aortic and right common iliac artery calcific atherosclerosis. ?? 2. Polycystic liver and kidney disease. Of note some of the renal lesions are hyperattenuating and may have hemorrhagic or proteinaceous content. Comparison with prior studies or MRI would be helpful to assess for any solid lesions. ?? 3. 6 mm nodule within the lingula [...] for requested labs within last 720 hours. STOP-Bang Total Score: 3 Luis Enriuqe index score: 100 documented in this encounter Procedure Notes * Jhony Canales MD - 06/14/2020 8:33 AM CDT Images from the original note were not included. Procedures PROCEDURE NOTE: Name: Natividad Browne : 1960 Date of Transversus Abdominis Plane Block: 06/14/2020 Attending: Jhony Canales MD Cad Programmer: Tristan Mccarthy MD Procedure: Transversus Abdominus Plane (TAP) block with ultrasound - Bilateral. Pre-procedural Diagnosis: Acute Postoperative Pain Abdominal Pain After Surgery Post-procedural Diagnosis: Acute Postoperative Pain Abdominal Pain After Surgery Indication for Procedure: Post-operative Pain Control per Surgeon's Request Informed consent was obtained for TAP nerve block for postoperative pain control. Timeout was performed. The patient was placed in supine position, and the appropriate areas on the abdomen were sterilized with chlorhexidine scrub. The ultrasound probe was then prepped into the field in sterile fashion. A 21 gauge 4-inch insulated needle was inserted on the left side under ultrasound guidance using in-plane technique. After negative aspiration, 25 mL of 0.5% Bupivicaine was injected. No complications. The above was repeated on the contralateral side without complications. Image: See US images in chart Trainee: Tristan Mccarthy MD Attending: Jhony Canales MD 06/14/2020 8:34 AM I was present and participated for the entire procedure Jhony Canales MD documented in this encounter Consult Notes * Nazanin Huffman MD - 06/17/2020 11:03 AM CDTAssociated Order(s): IP CONSULT TO VASCULAR SURGERY Vascular Surgery Consultation Patient Name/MRN: Natividad Browne [id number] Treatment Team: Vascular Surgery- Reason for Consult: ESRD nearing dialysis; fistula planning Attending: Valencia Khan MD Today's Date: 06/17/2020 Admitting Service: Surgery Admitting location: [id number] Admit Date: 06/14/2020 Code Status: Full Code Requesting Provider: Valencia Khan MD CC: ESRD Subjective HPI: Patient is a 60 y.o. 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 Vascular surgery is consulted for possible creation of HD access. He had CKD IV prior to nephrectomy andfollowed with Dr. Strickland as an outpatient for his renal disease. After nephrectomy, he has continued to have a rise in Cr and BUN. He has not required dialysis to this point; however, they believe he will need access for dialysis in the near future. He is a right handed male with additional PMH as noted below. He reports normal hand strength and occasional numbness and tingling in bilateral hands that radiaates from the shoulder. He has a 40 pack year history of smoking, but quit about 2 years ago. He underwent vein mapping on 06/16/2020. Past Medical History: Diagnosis Date ??? Anemia of chronic disease ??? Arthritis ??? Asthma ??? CKD (chronic kidney disease) ??? GERD (gastroesophageal reflux disease) ??? Heart attack (CMS/HCC) ??? Hiatal hernia ??? Hypertension ??? Pneumonia ??? Polycystic kidney disease ??? PONV (postoperative nausea and vomiting) Past Surgical History: Procedure Laterality Date ??? COLONOSCOPY 03/2020 ??? OTHER SURGICAL HISTORY 1973 Ureteral surgery No Known Allergies Medications Prior to Admission Medication Sig Dispense Refill Last Dose ??? amLODIPine (NORVASC) 5 mg tablet TAKE ONE TABLET BY MOUTH DAILY (Patient taking differently: Take 5 mg by mouth every morning ) 90 tablet 3 06/13/2020 at Unknown time ??? aspirin 81 mg tablet Take 81 mg by mouth every morning Past Week at Unknown time ??? cyanocobalamin (Vitamin B-12) 1,000 mcg tablet Take 1,000 mcg by mouth every morning 06/13/2020 at Unknown time ??? metoprolol (LOPRESSOR) 25 mg tablet TAKE ONE TABLET BY MOUTH TWICE A DAY (Patient taking differently: Take 25 mg by mouth 2 (two) times a day ) 180 tablet 3 06/14/2020 at Unknown time ??? omeprazole (PriLOSEC) 40 mg capsule Take 40 mg by mouth every morning 06/14/2020 at Unknown time ??? lactulose solution 10 gram/15mL Take 10 g by mouth as needed ??? nitroglycerin (NITROSTAT) 0.4 mg SL tablet More than a month at Unknown time ??? sennosides (SENNA ORAL) Take 3 tablets by mouth as needed Current Facility-Administered Medications Medication Dose Route Frequency Provider Last Rate Last Dose ??? acetaminophen (TYLENOL) tablet 1,000 mg 1,000 mg oral Q6H [facility] Junior Mas MD 1,000 mg at 06/17/20 0532 ??? amLODIPine (NORVASC) tablet 5 mg 5 mg oral QAM Junior Mas MD 5 mg at 06/17/20 0840 ??? bisacodyL (DULCOLAX) suppository 10 mg 10 mg rectal BID PRN Belkys Mccormick MD ??? cyclobenzaprine (FLEXERIL) tablet 5 mg 5 mg oral TID PRN Belkys Mccormick MD 5 mg at 06/17/20 0405 ??? heparin 5,000 unit/mL injection 5,000 Units 5,000 Units subcutaneous Q8H [facility] Junior Mas MD 5,000 Units at 06/17/20 0531 ??? lactulose 0.67 gram/mL oral solution 10 g 10 g oral BID Belkys Mccormick MD 10 g at ??? metoprolol tartrate (LOPRESSOR) immediate release tablet 25 mg 25 mg oral BID Junior Mas MD 25 mg at 06/17/20 0840 ??? ondansetron ODT (ZOFRAN-ODT) disintegrating tablet 4 mg 4 mg oral Q6H PRN Junior Mas MD Or ??? ondansetron (ZOFRAN) injection 4 mg 4 mg intravenous Q6H PRN Junior Mas MD 4 mg at 06/16/201999 ??? oxyCODONE (ROXICODONE) tablet 10 mg 10 mg oral Q3H PRN Belkys Mccormick MD ??? pantoprazole DR (PROTONIX) extended release tablet 40 mg 40 mg oral Daily Junior Mas MD 40 mg at 06/17/20 0840 ??? polyethylene glycol (MIRALAX) packet 17 g 17 g oral BID Belkys Mccormick MD 17 g at ??? senna (SENOKOT) tablet 1 tablet 1 tablet oral BID PRN Junior Mas MD 1 tablet at 06/16/20 0918 ??? senna-docusate (PERICOLACE) 8.6-50 mg per tablet 1 tablet 1 tablet oral BID Barry Littlejohn MD 1 tablet at 06/17/20 0840 ??? sodium chloride 0.9% flush 0.5-20 mL 0.5-20 mL intra-catheter Q8H [facility] Junior Mas MD10 mL at 06/16/20 1953 ??? sodium chloride 0.9% flush 0.5-20 mL 0.5-20 mL intra-catheter PRN Junior Mas MD Family History Problem Relation Age of Onset ??? Aneurysm Mother ??? Kidney disease Mother ??? Cancer Father ??? Kidney disease Sister ??? PONV Sister ??? Anesthesia problems Neg Hx Social History Tobacco Use ??? Smoking status: Former Smoker Packs/day: 1.50 Years: 40.00 Pack years: 60.00 Start date: 04/11/1978 Quit date: 2018 Years since quittin.6 ??? Smokeless tobacco: Never Used Substance Use Topics ??? Alcohol use: No Primary Care Physician: Gerardo Shah MD Primary Care Physician number: [phone] Review of Systems: Systems reviewed and negative for constitutional, neurologic, ENT, cardiac, respiratory, gastrointestinal, genitourinary, integument, psychiatric, endocrine except as stated in HPI and below: Objective Vitals: Arrival Vitals Temp 06/14/20 0550 36.7 ??C (98.1 ??F) Pulse 06/14/20 0545 55 Resp 06/14/20 0550 16 BP 06/14/20 0550 141/89 SpO2 06/14/20 0550 98 % Temp src 06/14/20 0550 Temporal Heart Rate Source 06/14/20 0550 Monitor Patient Position 06/14/20 1945 Lying BP Location 06/14/20 0550 Right arm FiO2 (%) -- Most Recent : Vitals: 06/17/20 0842 BP: 127/84 Pulse: 88 Resp: 19 Temp: 36.5 ??C (97.7 ??F) SpO2: 93% I/O last 2 completed shifts: In: 120 [P.O.:120] Out: 1275 [Urine:1275] I/O this shift: In: - Out: 150 [Urine:150] Physical exam: General appearance: appears stated age Constitutional: No acute distress Eyes: EOMI, anicteric Cardiovascular: regular rate, regular rhythm Pulses Left arm: Palpable radial, multiphasic ulnar and palmar arch Right arm: Palpable radial and ulnar Lower extremities: Palpable femoral, DP/PT b/l Respiratory: non-labored breathing Skin: no ulceration GI: Soft, appropriately tender; distended. No pusatile abdominal mass Muskuloskeletal: Extremities move equally Neuro: Alert and oriented x4, non-focal Lab/Radiology/Diagnostic Review: Laboratory review: Lab results in the last 12 hours: Recent Results (from the past 12 hour(s)) CBC without differential Collection Time: 06/16/20 11:26 PM Result Value Ref Range WBC 11.8 (H) 3.8 - 9.9 K/cumm Hgb 11.7 (L) 13.0 - 17.5 g/dL Hct 35.6 (L) 38.9 - 50.3 % Plt 253 150 - 400 K/cumm MPV 10.4 9.1 - 12.3 fL RBC 3.69 (L) 4.30 - 5.80 M/cumm MCV 96.5 (H) 81.3 - 96.4 fL MCH 31.7 27.1 - 33.3 pg MCHC 32.9 32.3 - 35.7 g/dL RDW CV 13.2 11.1 - 14.9 % RDW SD 46.9 35.7 - 48.1 fL NRBC abs 0.00 0.00 - 0.01 K/cumm Basic metabolic panel Collection Time: 06/16/20 11:26 PM Result Value Ref Range Sodium 136 135 - 145 mmol/L Potassium, pl 5.1 (H) 3.3 - 4.9 mmol/L Chloride 103 97 - 110 mmol/L CO2 21 (L) 22 - 32 mmol/L Anion gap 12 2 - 15 mmol/L BUN 65 (H) 8 - 25 mg/dL Creatinine 5.38 (H) 0.80 - 1.30 mg/dL Glucose 110 70 - 199 mg/dL Calcium 9.0 8.5 - 10.3 mg/dL Us Vein Mapping Duplex Upper Extremity Bilateral Result Date: 06/16/2020 Narrative: [facility] - Department of Vascular Surgery, Vascular Laboratory [address] [place] [address] Upper Extremity Vein Mapping Report Patient Name: NATIVIDAD BROWNE J : 1960 (60y 3m) Study Date: 06/16/2020 1:27:59 PM Gender: M Lpn Cma: MKLocation: [id number] Ref.Provider: VALENCIA KHAN Quality: Adequate Order Provider: VALENCIA KHAN Procedures: Mapping Report: Bilateral Upper Extremity Vein Mapping. Indications: chronic kidney disease stage 5 (failure) GFR<15 mL/min. Measurements: Right - Left - Measurement Value Units Measurement Value Units Rt Axillary Vein Diameter 0.91 cm Lt Axillary Vein Diameter 0.71 cm Rt Prox Brachial Vein D. 1 - cm Lt Prox Brachial Vein D. 1 - cm Rt Prox Brachial Vein D. 2 - cm Lt Prox Brachial Vein D. 2 - cm Rt Mid Brachial Vein D. 1 - cm Lt Mid Brachial Vein D. 1 - cm Rt Mid Brachial Vein D. 2- cm Lt Mid Brachial Vein D. 2 - cm Rt Dist Brachial Vein D. 1 - cm Lt Dist Brachial Vein D. 1 - cmRt Dist Brachial Vein D. 2 - cm Lt Dist Brachial Vein D. 2 - cm Rt Cephalic Vein Zone 1 0.34 cm LtCephalic Vein Zone 1 0.51 cm Rt Cephalic Vein Zone 2 0.29 cm Lt Cephalic Vein Zone 2 0.49 cm Rt Cephalic Vein Zone 3 0.31 cm Lt Cephalic Vein Zone 3 0.51 cm Rt Cephalic Vein Zone 4 0.20/ lateral forearm branch 0.27 cm Lt Cephalic Vein Zone 4 0.48/lateral forearm branch cm Rt Cephalic Vein Zone 5 0.06 cm Lt Cephalic Vein Zone 5 0.20 (focal non-occlusive SVT) cm Rt Cephalic Vein Zone 6 0.24/branchreconnects to main cephalic cm Lt Cephalic Vein Zone 6 0.34 cm Rt Cephalic Vein Zone 7 0.22 cm Lt Cephalic Vein Zone 7 0.17 cm Rt Basilic Vein Zone 1 0.22 cm Lt Basilic Vein Zone 1 0.37 cm Rt Basilic Vein Zone 2 0.21 cm Lt Basilic Vein Zone 2 0.36 cm Rt Basilic Vein Zone 3 0.25 cm Lt Basilic VeinZone 3 0.32 cm Rt Basilic Vein Zone 4 0.27 cm Lt Basilic Vein Zone 4 0.16 cm Rt Basilic Vein Zone5 0.28 cm Lt Basilic Vein Zone 5 0.13 cm Rt Basilic Vein Zone 6 0.23 cm Lt Basilic Vein Zone 6 0.10 cm Rt Basilic Vein Zone 7 0.15 cm Lt Basilic Vein Zone 7 unable to locate cm Measurement Value Units Measurement Value Units Right - Left - - Findings: Performing Lpn Cma: Essie Sevilla RVT. Bilateral: Venous Doppler signals in the bilateral upper extremities are within normal limits for spont aneity and phasicity; normal response to compression maneuvers. Right: Duplex imaging of right cephalic and basilic veins reveals the cross-sectional measurements noted above. No evidence of superficial vein thrombus. The radial and ulnar artery/vein bifurcation appears to be at the proximal arm level Radial V Prox 0.23cm Radial V Mid 0.18cm/0.20cm Radial V Distal 0.13/0.19 Ulnar V Prox 0.34/0.53Ulnar V Mid 0.45/0.23 Ulnar V Distal 0.31/0.42. Left: Duplex imaging of left cephalic and basilic veins reveals the cross-sectional measurements noted above. Isolated superficial vein thrombus noted in the cephalic vein at the mid forearm. The radial and ulnar artery/vein bifurcation appears to be at the proximal arm level Radial V Prox 0.23cm Radial V Mid 0.12 Radial V Distal 0.14cm/0.09cm UlnarV Prox 0.43cm Ulnar V Mid 0.23cm/0.25cm Ulnar V Distal 0.32cm/0.15cm. Conclusions: 1. Duplex imaging of bilateral cephalic and basilic veins reveals the cross-sectional measurements noted above. 2. Superficial vein thrombus(isolated) in the left cephalic vein at mid forearm. 3. No evidence of acutedeep vein thrombosis bilaterally in the upper extremities. [...] The signing physician has reviewed all images pertainingto this test. These images and this report will be retained in the patient chart by the Vascular Laboratory for the legally required time period. This chart constitutes the legal record of any testing performed. Electronically Signed By: Federico Bain MD FACS 2020-06-16 15:04:35 CDT CC: CC: Assessment /Plan Patient is a 60 y.o. 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 - Vein mapping reviewed - Will discuss with patient and primary vice president safety regarding desire and timing for fistula creation - Will tentatively plan for outpatient follow-up with Dr. Aponte pending [facility]. - Vascular surgery will continue to follow. Please call [phone] with vascular consult questions 20/05. Discussed with Dr. Aponte @11:00 Cosigned by Chucho Aponte MD at 06/18/2020 2:12 PM CDT Associated attestation - Chucho Aponte MD - 06/18/2020 2:12 PM CDT I have seen and examined the patient on 06/17/2020. I agree with the findings and plan of care as documented in the fellow/resident/STRAPPING MACHINE OPERATOR's note. * Gatito Barrientos MD - 06/15/2020 10:57 AM CDTAssociated Order(s): IP CONSULT TO NEPHROLOGY Nephrology Consult Reason for Consult: PCKD, s/p right nephrectomy Subjective HPI: Mr. Browne is a 60yo M with PMHx of ADPKD, ID ([facility] 2017 with no obstruction, thought to be coronary spasms), HTN, asthma that is s/p R nephrectomy on 06/15. History gathered from patient, chart, and careeverywhere. Per patient, he has known about his ADPKD since he was 29 years old. His youngest sister as well ashis mom have it, and his mom had a renal transplant when she was 50 years old. However, he was asymptomatic and was not following with any nephrologists until recently. In 2017 he had chest pain, and he had a LHC for potential ID. During this hospitalization, he was told his GFR was ~50%. He then presented to [facility] in Oct 2018 for chest pain, where he was told his GFR was ~25%. Renal US from Oct 2018 showed hsi R kidney was 18.9cm and L kidney was 20.5cm and he was found to have innumerable cysts in both kidneys. He still remained asymptomatic until early this year when he began to develop intermittent N/V, abdominal bloating, and intermittent SOB.He then began seeing Dr. Strickland 12/2019. He denies any issues urinating, or dysuria or hematuria, and stated he had mild edema of his ankles. Cr was 2.6 at this time (was 1.77 09/2018 and 1.6 10/2018). He was referred to transplant nephrology at [facility] who he saw 04/14/20. His Cr was 2.56 at this time.He underwent transplant work up but was not a candidate as his GFR was >20. His CT abdomen/pelvis showed liver and kidney cysts, and attenuating renal lesions suggestive of hemorraghic or proteinaceous component. Due to his imaging and symptoms he was referred to transplant surgery. He was admitted for R nephrectomy yesterday. Per OP note, he had a massively enlarged R kidney withinnumerable cysts. Numerous cysts were aspirated with 1270mL of cystic fluid aspirated. Cr was 2.33on 06/06; this morning it was 4.13. He states he has not eaten much of anything since the procedure due to discomfort and pain. He has been on IVF (D5 1/2 NS) at 125cc/hr since noon yesterday. Today he is complaining of pain and not being able to find comfortable position. He states he cannot take full breaths due to his pain and it is too early to tell if his abdominal distension is improved. Allergies: none PMH as above PSH: LHC 2017, R nephrectomy 2019 Fam Hx: mom and youngest sister with ADPKD (mom w/ renal transplant when she was 50, she at 68) Social Hx: smoked 1.5 ppd for 40 years, quit 2017 Past Medical History: Diagnosis Date ??? Anemia of chronic disease ??? Arthritis ??? Asthma ??? CKD (chronic kidney disease) ??? GERD (gastroesophageal reflux disease) ??? Heart attack (CMS/HCC) ??? Hiatal hernia ??? Hypertension ??? Pneumonia ??? Polycystic kidney disease ??? PONV (postoperative nausea and vomiting) Past Surgical History: Procedure Laterality Date ??? COLONOSCOPY 03/2020 ??? OTHER SURGICAL HISTORY 1973 Ureteral surgery Medications Prior to Admission Medication Sig Dispense Refill Last Dose ??? amLODIPine (NORVASC) 5 mg tablet TAKE ONE TABLET BY MOUTH DAILY (Patient taking differently: Take 5 mg by mouth every morning ) 90 tablet 3 06/13/2020 at Unknown time ??? aspirin 81 mg tablet Take 81 mg by mouth every morning Past Week at Unknown time ??? cyanocobalamin (Vitamin B-12) 1,000 mcg tablet Take 1,000 mcg by mouth every morning 06/13/2020 at Unknown time ??? metoprolol (LOPRESSOR) 25 mg tablet TAKE ONE TABLET BY MOUTH TWICE A DAY (Patient taking differently: Take 25 mg by mouth 2 (two) times a day ) 180 tablet 3 06/14/2020 at Unknown time ??? omeprazole (PriLOSEC) 40 mg capsule Take 40 mg by mouth every morning 06/14/2020 at Unknown time ??? lactulose solution 10 gram/15mL Take 10 g by mouth as needed ??? nitroglycerin (NITROSTAT) 0.4 mg SL tablet More than a month at Unknown time ??? sennosides (SENNA ORAL) Take 3 tablets by mouth as needed No Known Allergies Social History Tobacco Use ??? Smoking status: Former Smoker Packs/day: 1.50 Years: 40.00 Pack years: 60.00 Start date: 04/11/1978 Quit date: 2018 Years since quittin.6 ??? Smokeless tobacco: Never Used Substance Use Topics ??? Alcohol use: No Family History Problem Relation Age of Onset ??? Aneurysm Mother ??? Kidney disease Mother ??? Cancer Father ??? Kidney disease Sister ??? PONV Sister ??? Anesthesia problems Neg Hx Review of Systems: All other review of systems is negative Objective Vitals: 24hr Min/Max: Temp Min: 36.1 ??C (97 ??F) Max: 36.8 ??C (98.2 ??F) Pulse Min: 56 Max: 105 BP Min: 107/72 Max: 158/85 Resp Min: 10 Max: 24 SpO2 Min: 90 % Max: 99 % Most Recent: Vitals: 06/15/20 0840 BP: 127/71 Pulse: 57 Resp: 18 Temp: 36.5 ??C (97.7 ??F) SpO2: 92% I/O last 2 completed shifts: In: 1686.7 [P.O.:120; I.V.:1566.7] Out: 1320 [Urine:1270; Blood:50] I/O this shift: In: 120 [P.O.:120] Out: 425 [Urine:425] Physical Exam: Constitutional: NAD, well developed, well nourished. Eyes: PERRL, EOMI, anicteric. HENT: NCAT. Oropharynx normal, moist mucus membranes. Lungs: CTAB, no W/R/R. Comfortable on room air. Cardiovascular: RRR, normal S1 and S2, no murmurs, no JVD. Gi: Soft, non-tender, non-distended, normal bowel sounds, no organomegaly. Skin: Incision in LLQ C/D/I, bruising surrounding incision with no drainage. Extremities: Normal without edema or cyanosis Lymph: No cervical, supraclavicular, axillary or inguinal adenopathy Neurologic: AOx4, CNII-XII intact, normal strength and sensation. Psychiatric: Normal affect and mood. Lab/Radiology/Diagnostic Review: Laboratory review: Lab results in the last 24 hours: Recent Results (from the past 24 hour(s)) POC Blood Gas and Chemistries, Arterial - Collection Time: 06/14/20 11:39 AM Result Value Ref Range pH, Art POC 7.26 (L) 7.35 - 7.45 pCO2, Art POC 51 (H) 35 - 45 mmHg pO2, Art POC 280 (H) 83 - 108 mmHg Na, POC 142 135 - 145 mmol/L K POC 5.1 (H) 3.3 - 4.9 mmol/L Cl, POC 108 97 - 110 mmol/L Ionized Ca, POC 4.87 4.50 - 5.10 mg/dL Glucose, POC 136 70 - 199 mg/dL Lactate, POC 0.8 0.7 - 2.2 mmol/L SO2 (yesica) arterial 98 (H) 90 - 95 % Base Excess, POC -4.6 mmol/L HCO3, Art POC 23 20 - 30 mmol/L Hct, POC 37.0 (L) 41.4 - 51.6 % O2 Sat, Art POC (Calc) 100 % Total Hb, POC 12.4 (L) 13.8 - 17.2 g/dL Basic metabolic panel Collection Time: 06/15/20 4:14 AM Result Value Ref Range Sodium 139 135 - 145 mmol/L Potassium, pl 4.9 3.3 - 4.9 mmol/L Chloride 106 97 - 110 mmol/L CO2 21 (L) 22 - 32 mmol/L Anion gap 12 2 - 15 mmol/L BUN 56 (H) 8 - 25 mg/dL Creatinine 4.13 (H) 0.80 - 1.30 mg/dL Glucose 149 70 - 199 mg/dL Calcium 7.9 (L) 8.5 - 10.3 mg/dL CBC without differential Collection Time: 06/15/20 4:14 AM Result Value Ref Range WBC 13.2 (H) 3.8 - 9.9 K/cumm Hgb 10.5 (L) 13.0 - 17.5 g/dL Hct 33.4 (L) 38.9 - 50.3 % Plt 244 150 - 400 K/cumm MPV 10.3 9.1 - 12.3 fL RBC 3.39 (L) 4.30 - 5.80 M/cumm MCV 98.5 (H) 81.3 - 96.4 fL MCH 31.0 27.1 - 33.3 pg MCHC 31.4 (L) 32.3 - 35.7 g/dL RDW CV 13.5 11.1 - 14.9 % RDW SD 49.2 (H) 35.7 - 48.1 fL NRBC abs 0.00 0.00 - 0.01 K/cumm Assessment /Plan Principal Problem: Autosomal dominant polycystic kidney disease Active Problems: Acute postoperative abdominal pain Mr. Browne is a 60yo M with PMHx of ADPKD, ID ([facility] 2017 with no obstruction, thought to be coronary spasms), HTN, asthma that is s/p R nephrectomy on 06/15. -presenting with enlarged kidneys with numerous cysts on imaging, abdominal distension, SOB -Cr 2.33 on 06/06, now 4.13 following R nephrectomy 06/14 -patient states he has eaten very little since procedure -has been on IVF D5 1/2NS @ 125cc for almost 24 hours -UOP 1.3L yesterday Plan: #YOLANDA -rise in Cr likely secondary to expected decrease in GFR following removal of R kidney (GFR ~15 now) -patient still with good UOP -would continue to monitor, no acute interventions at this time #Secondary Hyperparathyroidism -PTH 79 on 04/04/20 -please measure phosphorous as patient may benefit from a Phos binder -also please measure Vit D Renal??Consult 2 Service Contact (phone): [phone] After hours and weekends: please page [phone] Gatito Barrientos MD PGY-3, Internal Medicine [facility] Cosigned by Markus Couch MD PhD at 06/15/2020 3:38 PM CDT Associated attestation - Markus Couch MD PhD - 06/15/2020 3:38 PM CDT I have seen and examined the patient on today, . I agree with the findings and plan of care as documented in the resident's/fellow's note. 60 yo M with ADPKD s/p nephrectomy, with Cr increase from 2.6 to 4.1. He has completed a kidney transplant eval, and he has a living donor currently being evaluated. Cr rise is expected after nephrectomy, will need to manage CKD based on new GFR, and alert transplant office that his eGFR is below 20 so that he can proceed to possible transplant. Markus Couch MD PhD documented in this encounter Nursing Notes * Stacey Hayward RN - 06/16/2020 6:40 PM CDT Pt cont to c/o abd distention & constipation, suppository given per order with no results, abdominal distention increased from this am, & RLQ abd wound weeping serosang. Fld, ANP notified, gauze drsg placed to RLQ. TO received to give evening lactulose dose early. * Rosaura Chan RN - 06/14/2020 4:12 PM CDT Informed surgery about lost BMP in lab Surgery is ok with drawing labs with evening labwork. Patient will be transferred to floor * Rosaura Chan RN - 06/14/2020 4:08 PM CDT Called lab customer service regarding patient' BMP not resulted yet. sales representative [employer] cannot find the lab, is continuing to look. documented in this encounter Miscellaneous Notes * Plan of Care - María Ward RN - 06/18/2020 6:03 PM CDT Goals: Clinical Goals for the Shift: stable vitals and i's and o's, out of bed activity, monitor incision sites, tolerate diet, monitor labs, oupatient consult to vascular surgery, pain management, discharge planning Summary: Patient's vitals and I's and o's are stable. His incision is wnl. His pain has been adequately managed. He has tolerated his diet. He will follow up with his vice president safety outpatient and may need dialysis. He has ambulated in the villatoro and was cleared by physical therapy. He and his understand his discharge instructions and follow up. * Plan of Care - Keesha Mcdonald, PT - 06/18/2020 1:58 PM CDT Problem: Mobility Goal: STG - Patient will ambulate Description: 100ft, AAD, distant supervision Outcome: Completed Goal: STG - Patient will ambulate up and down a curb/step Description: W/o railing, w/ distant supervision Outcome: Completed * Plan of Care - Destiny Mabry RN - 06/18/2020 2:46 AM CDT Problem: Health Behavior: Goal: Understanding of discharge needs will improve Outcome: Progressing Problem: Activity: Goal: Mobility will improve Outcome: Progressing Problem: Lack of Knowledge: Goal: Understanding of ways to prevent future skin breakdown will improve Outcome: Progressing Problem: Health Behavior: Goal: Understanding of discharge needs will improve Outcome: Progressing Problem: Activity: Goal: Mobility will improve Outcome: Progressing Problem: Lack of Knowledge: Goal: Understanding of ways to prevent future skin breakdown will improve Outcome: Progressing Goals: Clinical Goals for the Shift: monitor Vs, I&0's, rest Summary: Patient had several large BM's, VSS, patient voiding per urinal, pain well controlled, Whole Blood K ordered, Patient request all labs be drawn from right arm as to prepare for possible leftarm AV fistula placed in near future. * Plan of Care - Luisana Nugent - 06/17/2020 3:47 PM CDT Problem: Mobility Goal: STG - Patient will ambulate Description: 100ft, AAD, distant supervision Outcome: Progressing Problem: Transfers Goal: STG - Patient to transfer to and from sit to supine Description: Inocencio Outcome: Completed Goal: STG - Patient will transfer sit to and from stand Description: Inocencio Outcome: Completed Cosigned by Gabriela Wade, PT at 06/17/2020 3:51 PM CDT * Plan of Care - María Ward RN - 06/17/2020 2:06 PM CDT Problem: Health Behavior: Goal: Understanding of discharge needs will improve Outcome: Progressing Problem: Activity: Goal: Mobility will improve Outcome: Progressing Problem: Lack of Knowledge: Goal: Understanding of ways to prevent future skin breakdown will improve Outcome: Progressing Goal: Ability to identify appropriate dietary choices will improve Outcome: Progressing Problem: Nutritional: Goal: Dietary intake will improve Outcome: Progressing Goal: Ability to maintain a balanced intake and output will improve Outcome: Progressing Problem: Skin Integrity: Goal: Risk for impaired skin integrity will decrease Outcome: Progressing Goal: Ability to demonstrate warm and dry skin will improve Outcome: Progressing Goal: Circulation will improve to fullest extent possible Outcome: Progressing Problem: Lack of Knowledge: Goal: Ability to state ways to decrease the risk of falls will improve Outcome: Progressing Problem: Safety: Goal: Will remain free from falls Outcome: Progressing Goal: Will remain free from injury from falls Outcome: Progressing Goal: Will remain free from falls and injury in home environment Outcome: Progressing Goals: Clinical Goals for the Shift: stable vitals, monitor i's and o's, ambulate, CHG bath, pain management, moitor incision sites, tolerate diet, return of bowel funcition, monitor creatinine, consult to [facility]. surgery, discharge planning Summary: patient's vitals and I's and o's are wnl. He has had several bowel movements. His pain hasadequately been managed with oral medications. His incisions are wnl. He took a CHG shower and has ambulated. He is tolerating small amounts of food. He will remain overnight to monitor his labs and may be discharged tomorrow. Vascular Surgery has been consulted for possible dialysis access if needed. * Plan of Care - Destiny Mabry RN - 06/17/2020 3:16 AM CDT Problem: Health Behavior: Goal: Understanding of discharge needs will improve Outcome: Progressing Note: Discussed discharge needs, monitor fluid intake, pain management, prevent constipation. Problem: Activity: Goal: Mobility will improve Outcome: Progressing Problem: Lack of Knowledge: Goal: Understanding of ways to prevent future skin breakdown will improve Outcome: Progressing Goal: Ability to identify appropriate dietary choices will improve Outcome: Progressing Problem: Nutritional: Goal: Dietary intake will improve Outcome: Progressing Goal: Ability to maintain a balanced intake and output will improve Outcome: Progressing Problem: Skin Integrity: Goal: Risk for impaired skin integrity will decrease Outcome: Progressing Goal: Ability to demonstrate warm and dry skin will improve Outcome: Progressing Goal: Circulation will improve to fullest extent possible Outcome: Progressing Problem: Lack of Knowledge: Goal: Ability to state ways to decrease the risk of falls will improve Outcome: Progressing Problem: Safety: Goal: Will remain free from falls Outcome: Progressing Goal: Will remain free from injury from falls Outcome: Progressing Goal: Will remain free from falls and injury in home environment Outcome: Progressing Goals: Clinical Goals for the Shift: Pain control, have BM, continue to monitor VS / I&O Summary: Patient having several small bowel movements after receiving bowel regimen this evening. Patient states he is feeling better. * Plan of Care - Stacey Hayward RN - 06/16/2020 3:29 PM CDT Goals: Clinical Goals for the Shift: VSS, D/C dang, pain control, monitor I/O, ambulate. Summary: VSS, dang D/C'd this am per MD team, pt verbalizing adeq pain control w/ exception of abdominal discomfort, pt states R/T constipation. I/O recorded, ambulated, encouraged increased ambulation, laxatives given per order & supp given per order, cont. To monitor. * Plan of Care - Ivory Martin RN - 06/16/2020 1:49 AM CDT Problem: Health Behavior: Goal: Understanding of discharge needs will improve Outcome: Progressing Problem: Activity: Goal: Mobility will improve Outcome: Progressing Problem: Safety: Goal: Will remain free from falls Outcome: Progressing Goal: Will remain free from injury from falls Outcome: Progressing Goal: Will remain free from falls and injury in home environment Outcome: Progressing Goals: Clinical Goals for the Shift: Fall precautions; monitor urine output; pain mgmt; labs Summary: Neftaly has been resting in bed most of this shift. Reports pain of 3-5 which increases withactivity and movement. He is using SCDs and successfully using I.S. On room air, his SPO2 tends to run 89-92%. States he stopped smoking two years ago. Placed him on a continuous pulse ox to continuemonitoring this trend and ultimately placed him on 1 liter of supplemental oxygen via nasal cannula. Neftaly denies nausea. Bowel sounds are active but not flatus thus far. Abdomen is slightly rounded, soft and tender. Urine output continues to be on the low side of normal . Apparently he is being considered for placement on the kidney transplant list with sister as a possible donor. BUN and Creatinine are elevated. No edema. No dialysis to date. Some note of slight instability in his gait so fall precautions are in place. Need to encourage increased ambulation. * Plan of Care - Cristine Dueñas RN - 06/15/2020 1:21 PM CDT Goals: Clinical Goals for the Shift: pain control, OOB, rest, tolerate diet Summary: Continue to Monitor * Plan of Care - Ivory Pinzon RN - 06/14/2020 7:38 PM CDT Goals: Clinical Goals for the Shift: post-op care and pain control Summary: A and O x 4 this shift. Pt arrived via bed at 1635. He c/o R flank pain -- pain meds givenas ordered. IVFs infusing via #18g in his L hand. #18g in his R hand is SL. His R flank incision with lap sites x 3 is GAS TREATER -- wound glue is c/d/intact. No drainage noted. He can have a regular diet -- PRN nausea meds given 1x. No BM this shift. Dang is intact -- urine is yellow and clear. No edemanoted. Lungs are diminished and BS are hypoactive. Will continue to monitor. * Post-Procedure Note - Belkys Mccormick MD - 06/14/2020 5:20 PM CDT SURGERY POSTOPERATIVE CHECK SUBJECTIVE: Mr. Natividad Browne is a 60 y.o. male who underwent right Nx for ADPKD. Resting comfortably, pain well controlled with APAP/oxy prn. Reports nausea, denies vomiting, chest pain, shortness of breath. Hemodynamically stable with no complaints at this time. Past Medical History: Diagnosis Date ??? Anemia of chronic disease ??? Arthritis ??? Asthma ??? CKD (chronic kidney disease) ??? GERD (gastroesophageal reflux disease) ??? Heart attack (CMS/HCC) ??? Hiatal hernia ??? Hypertension ??? Pneumonia ??? Polycystic kidney disease ??? PONV (postoperative nausea and vomiting) OBJECTIVE: Vitals: 06/14/20 1700 BP: 134/70 Pulse: 72 Resp: Temp: SpO2: 97% General: No acute distress, resting comfortably Pulmonary: Nonlabored breathing, clear to auscultation bilaterally Abdomen: Soft, appropriately TTP, nondistended. Incisions CDI with dermabond : dang draining cy urine Extremities: no edema, wearing SCD's PLAN: Nephro c/s Reg diet, IVF APAP, oxy prn Dang out tomorrow anti emetics PRN monitor labs VS I's and O's closely ICS OOB POD 0 SCD's, Lovenox. For any questions or concerns, please contact urology Saturday - Saturday, 6am-6pm at . For nights, weekends or holidays, please call the nailing machine operator and ask for the urology resident online merchant. Belkys Mccormick MD [phone] 06/14/2020 Cosigned by Valencia Khan MD at 06/14/2020 5:31 PM CDT * Op Note - Valencia Khan MD - 06/14/2020 8:19 AM CDT OPERATIVE REPORT FACILITY ID: [facility] SURGEON Pravin Khan M.D. HVAC REFRIGERATION TECHNICIAN MD Abraham Mccoy DO Cheryl Miller ANESTHESIA General. PREOPERATIVE DIAGNOSIS Autosomal Dominant Polycystic Kidney Disease (ADPKD) POSTOPERATIVE DIAGNOSIS Same. NAME OF OPERATION 1. Robot-assisted laparoscopic total right nephrectomy INDICATION FOR PROCEDURE Natividad Browne is a 60 y.o. male with a history of ADPKD. His kidneys are massively enlargedwith cysts and he is symptomatic with abdominal pain and shortness of breath. Following discussion of risks, benefits, and alternatives to this procedure patient agreed to proceed with right nephrectomy. OPERATIVE FINDINGS Massively enlarged right kidney with innumerable cysts. DESCRIPTION OF PROCEDURE Informed consent was obtained. Patient brought to the operating room. IV antibiotics were given. Bilateral sequential compression devices were placed. Following smooth induction of general anesthesia, patient was prepped and draped in usual standard sterile fashion. A time-out was then performed to ensure proper patient and proper procedure. Veress needle insufflation was performed. A periumbilical camera trocar was placed. Ensuring no injuries to underlying structures, the Veress needle was removed. Robotic trocars were placed with direct visualization. The robot was then docked. The colon was reflected medially. The duodenum was identified and Kocherized. The IVC was identified near the tail of Gerota's fascia and dissected to the level of the right renal vein. The renal hilum was dissected free of surrounding connective tissue. The renal hilum was controlled and divided with Vesolock clips. The superior medial dissection was performed and the right adrenal gland was spared. The posterior and lateral attachments of the kidney were then released with a combination of blunt and electrocautery dissection. Numerous cysts were p unctured and aspirated to reduce the size of the kidney. 1270 ml of cyst fluid was aspirated. The kidney was placed into an entrapment sac. The size of the kidney made dissection of the kidney and the mobilization of the kidney challenging, an additional 45 minutes to 50 minutes extra time was added to the procedure. One of the robotic trocar sites was extended to extract the specimen. The fascia was closed with 0 Loop PDS suture in running fashion. The overlying skin of all sites was then closed with 4-0 monoacyl suture. Dermabond was applied. The patient was awoken and taken to postoperative anesthesia recovery. SPECIMENS REMOVED 1. Right kidney ESTIMATED BLOOD LOSS 50 mL. INTRAOPERATIVE FLUIDS 1200 mL of crystalloid. SPONGE, INSTRUMENT AND NEEDLE COUNT Correct x 2. CONDITION ON DISCHARGE Stable to PACU. ATTESTATION OF PRESENCE I was present and directly participated in the entire procedure. * Perioperative Nursing Note - Stephanie Sinclair, LEYDI - 06/14/2020 7:27 AM CDT Late order from ICT QUALITY ASSURANCE ENGINEER for scop patch. Applied by ICT QUALITY ASSURANCE ENGINEER. documented in this encounter Plan of Treatment Scheduled Procedures Name Priority Associated Diagnoses Date/Ti me TRANSPLANT KIDNEY ESRD (end stage renal disease) ([facility]) documented as of this encounter Procedures Procedure Name Priority Date/Time Associated Diagnosis Comments POTASSIUM, WHOLE BLOOD STAT 06/17/2020 11:38 PM CDT CBC WITHOUT DIFFERENTIAL Timed 06/17/2020 10:43 PM CDT PHOSPHORUS Timed 06/17/2020 10:43 PM CDT MAGNESIUM Timed 06/17/2020 10:43 PM CDT BASIC METABOLIC PANEL Timed 06/17/2020 10:43 PM CDT CBC WITHOUT DIFFERENTIAL Timed 06/16/2020 11:26 PM CDT BASIC METABOLIC PANEL Timed 06/16/2020 11:26 PM CDT US VEIN MAPPING DUPLEX UPPER EXTREMITY BILATERAL IP Routine 06/16/2020 4:18 PM CDT VITAMIN D 25 HYDROXY Timed 06/15/2020 10:50 PM CDT CBC WITHOUT DIFFERENTIAL Timed 06/15/2020 10:50 PM CDT PHOSPHORUS Routine 06/15/2020 10:50 PM CDT MAGNESIUM Timed 06/15/2020 10:50 PM CDT BASIC METABOLIC PANEL Timed 06/15/2020 10:50 PM CDT CBC WITHOUT DIFFERENTIAL Timed 06/15/2020 4:14 AM CDT BASIC METABOLIC PANEL Timed 06/15/2020 4:14 AM CDT POC BLOOD GAS AND CHEMISTRIES, ARTERIAL Routine 06/14/2020 11:39 AM CDT SURGICAL PATHOLOGY Routine 06/14/2020 9: 37 AM CDT Autosomal dominant polycystic kidney disease XI NEPHRECTOMY - LAPAROSCOPIC ROBOTIC ASSISTED 06/14/2020 7:32 AM CDT Autosomal dominant polycystic kidney disease POCT [id number]-A-[id number]-GLU-HCT,WB - ISTAT Routine 06/14/2020 6:13 AM CDT documented in this encounter Results * Potassium, whole blood (06/17/2020 11:38 PM CDT) Potassium, bld 4.7 3.3 - 4.9 mmol/L [facility] Blood specimen (specimen) 06/17/2020 11:38 PM CDT 06/17/2020 11:48 PM CDT Valencia Khan MD LAB BLOOD ORDERABLES Frances l Result Performing Organization Address [facility]/ZIP Co de Phone Number [facility] Department [place] [address] * Phosphorus (06/17/2020 10:43 PM CDT) Phosphorus, pl 4.4 2.3 - 4.5 mg/dL [facility] Blood specimen (specimen) 06/17/2020 10:43 PM CDT 06/17/2020 10:56 PM CDT Valencia Khan MD LAB BLOOD ORDERABLES Frances l Result [facility] [place] [address] * Magnesium (06/17/2020 10:43 PM CDT) [facility] Magnesium 2.2 1.4 - 2.5 mg/dL [facility] Blood specimen (specimen) 06/17/2020 10:43 PM CDT 06/17/2020 10:56 PM CDT Valencia Khan MD LAB BLOOD ORDERABLES Frances l Result [facility] [place] [place] [address] * (ABNORMAL) CBC without differential (06/17/2020 10:43 PM CDT) [facility] WBC 8.0 3.8 - 9.9 K/cumm [facility] Hgb 11.3(L) 13.0 - 17.5 g/dL [facility] Hct 36.1(L) 38.9 - 50.3 % [facility] Plt 258 150 - 400 K/cumm [facility] MPV 9.9 9.1 - 12.3 fL [facility] RBC 3.71(L) 4.30 - 5.80 M/cumm [facility] MCV 97.3(H) 81.3 - 96.4 fL [facility] MCH 30.5 27.1 - 33.3 pg [facility] MCHC 31.3(L) 32.3 - 35.7 g/dL [facility] RDW CV 13.3 11.1 - 14.9 % [facility] RDW SD 47.3 35.7 - 48.1 fL [facility] NRBC abs 0.00 0.00 - 0.01 K/cumm [facility] Blood specimen (specimen) 06/17/2020 10:43 PM CDT 06/17/2020 10:56 PM CDT Valencia Khan MD LAB BLOOD ORDERABLES Frances l Result [facility] Department [place] [address] * (ABNORMAL) Basic metabolic panel (06/17/2020 10:43 PM CDT) Sodium 140 135 - 145 mmol/L [facility] Potassium, pl 4.7 3.3 - 4.9 mmol/L [facility] Chloride 106 97 - 110 mmol/L [facility] CO2 21(L) 22 - 32 mmol/L [facility] Anion gap 13 2 - 15 mmol/L [facility] BUN 71(H) 8 - 25 mg/dL [facility] Creatinine 5.49(H) 0.80 - 1.30 mg/dL [facility] Glucose 104 70 - 199 mg/dL [facility] Comment: Interpretive Data Fasting glucose >/= [...] interpretive data was last revised 2017. Calcium 8.8 8.5 - 10.3 mg/dL [facility] Blood specimen (specimen) 06/17/2020 10:43 PM CDT 06/17/2020 10:56 PM CDT Valencia Khan MD LAB BLOOD ORDERABLES Frances l Result Performing Organization Address City/[facility] Co de Phone Number [facility] Department [place] [address] * (ABNORMAL) Basic metabolic panel (06/16/2020 11:26 PM CDT) Sodium 136 135 - 145 mmol/L [facility] Potassium, pl 5.1(H) 3.3 - 4.9 mmol/L [facility] Chloride 103 97 - 110 mmol/L [facility] CO2 21(L) 22 - 32 mmol/L [facility] Anion gap 12 2 - 15 mmol/L [facility] BUN 65(H) 8 - 25 mg/dL [facility] Creatinine 5.38(H) 0.80 - 1.30 mg/dL [facility] Glucose 110 70 - 199 mg/dL [facility] Comment: Interpretive Data Fasting glucose >/= [...] interpretive data was last revised 2017. Calcium 9.0 8.5 - 10.3 mg/dL [facility] Blood specimen (specimen) 06/16/2020 11:26 PM CDT 06/16/2020 11:58 PM CDT Valencia Khan MD LAB BLOOD ORDERABLES Frances arndt Result [facility] Department [place] [address] * (ABNORMAL) CBC without differential (06/16/2020 11:26 PM CDT) WBC 11.8(H) 3.8 - 9.9 K/cumm [facility] Hgb 11.7(L) 13.0 - 17.5 g/dL [facility] Hct 35.6(L) 38.9 - 50.3 % [facility] Plt 253 150 - 400 K/cumm [facility] MPV 10.4 9.1 - 12.3 fL [facility] RBC 3.69(L) 4.30 - 5.80 M/cumm [facility] MCV 96.5(H) 81.3 - 96.4 fL [facility] MCH 31.7 27.1 - 33.3 pg [facility] MCHC 32.9 32.3 - 35.7 g/dL [facility] RDW CV 13.2 11.1 - 14.9 % [facility] RDW SD 46.9 35.7 - 48.1 fL [facility] NRBC abs 0.00 0.00 - 0.01 K/cumm [facility] Blood specimen (specimen) 06/16/2020 11:26 PM CDT 06/16/2020 11:59 PM CDT us Valencia Khan MD LAB BLOOD ORDERABLES Frances arndt Result Performing Organization Address City/State/[facility] Co de Phone Number [facility] Department [place] [address] * US Vein Mapping Duplex Upper Extremity Bilateral (06/16/2020 4:18 PM CDT) Anatomical Region Laterality Modality Vascular Bilateral Ultrasound 06/16/2020 1:27 PM CDT Narrative 06/16/2020 3:04 PM CDT [facility] - Department of Vascular Surgery, Vascular Laboratory [address] [place] [address] Upper Extremity Vein Mapping Report Patient Name: NATIVIDAD BROWNE J : 1960 (60y 3m) Study Date: 06/16/2020 1:27:59 PM Gender: M Lpn Cma: MKLocation: [id number] Ref.Provider: VALENCIA KHAN Quality: Adequate Order Provider: [...] ? Left - ? - Findings: Performing Lpn Cma: Essie Sevilla RVT. Bilateral: Venous Doppler signals [...] performed. Electronically Signed By: Federico Bain MD [facility] 2020-06-16 15:04:35 CDT CC: CC: Procedure Note Federico Bain MD - 06/16/2020 [facility] - Department of Vascular Surgery,Vascular Laboratory [address] [place] [address] Upper Extremity Vein Mapping Report Patient Name: NATIVIDAD BROWNE JPatient ID: [id number] : 1960 (60y 3m)Study Date: 06/16/2020 1:27:59 PM Gender: MAccession #: [id number] Lpn Cma: MKLocation: [id number] Ref.Provider: VALENCIA KHANQuality: Adequate Order Provider: Dayana KHANunt #: [id number] Procedures: Mapping Report: Bilateral Upper Extremity Vein [...] ValueUnits Right -Left - - Findings: Performing Lpn Cma: Essie Sevilla RVT. Bilateral: Venous Doppler signals [...] performed. Electronically Signed By: Federico Bain MD [facility] 2020-06-16 15:04:35 CDT CC: CC: Valencia Khan MD [facility] US PROCEDURES Final R esult * (ABNORMAL) Vitamin D 25 hydroxy (06/15/2020 10:50 PM CDT) Pathologist [facility] Vitamin D 25-OH 25(L) 30 - 80 ng/mL [facility] Blood specimen (specimen) 06/15/2020 10:50 PM CDT 06/15/2020 11:49 PM CDT Valencia Khan MD LAB BLOOD ORDERABLES Frances l Result Performing Organization Address [facility] de Phone Number [facility] [place] [place] [address] * Magnesium (06/15/2020 10:50 PM CDT) [facility] Magnesium 1.9 1.4 - 2.5 mg/dL [facility] Blood specimen (specimen) 06/15/2020 10:50 PM CDT 06/15/2020 11:49 PM CDT Valencia Khan MD LAB BLOOD ORDERABLES Frances l Result Performing Organization Address [facility] de Phone Number [facility] [place] [place] [address] * (ABNORMAL) Phosphorus (06/15/2020 10:50 PM CDT) [facility] Phosphorus, pl 4.6(H) 2.3 - 4.5 mg/dL [facility] Blood specimen (specimen) 06/15/2020 10:50 PM CDT 06/15/2020 11:49 PM CDT Valencia Khan MD LAB BLOOD ORDERABLES Frances l Result Performing Organization Address [facility] de Phone Number [facility] [place] [address] * (ABNORMAL) CBC without differential (06/15/2020 10:50 PM CDT) [facility] WBC 10.0(H) 3.8 - 9.9 K/cumm [facility] Hgb 10.6(L) 13.0 - 17.5 g/dL [facility] Hct 34.0(L) 38.9 - 50.3 % [facility] Plt 234 150 - 400 K/cumm [facility] MPV 10.2 9.1 - 12.3 fL [facility] RBC 3.40(L) 4.30 - 5.80 M/cumm [facility] MCV 100.0(H) 81.3 - 96.4 fL [facility] MCH 31.2 27.1 - 33.3 pg [facility] MCHC 31.2(L) 32.3 - 35.7 g/dL [facility] RDW CV 13.5 11.1 - 14.9 % [facility] RDW SD 50.5(H) 35.7 - 48.1 fL [facility] NRBC abs 0.00 0.00 - 0.01 K/cumm [facility] Blood specimen (specimen) 06/15/2020 10:50 PM CDT 06/15/2020 11:50 PM CDT us Miranda Mayer STRAPPING MACHINE OPERATOR LAB BLOOD ORDERABLES Final Res ult [facility] Department [place] [address] * (ABNORMAL) Basic metabolic panel (06/15/2020 10:50 PM CDT) Sodium 136 135 - 145 mmol/L [facility] Potassium, pl 4.9 3.3 - 4.9 mmol/L [facility] Chloride 100 97 - 110 mmol/L [facility] CO2 22 22 - 32 mmol/L [facility] Anion gap 14 2 - 15 mmol/L [facility] BUN 57(H) 8 - 25 mg/dL [facility] Creatinine 4.89(H) 0.80 - 1.30 mg/dL [facility] Glucose 96 70 - 199 mg/dL [facility] Comment: Interpretive Data Fasting glucose >/= [...] interpretive data was last revised 2017. Calcium 8.2(L) 8.5 - 10.3 mg/dL [facility] Blood specimen (specimen) 06/15/2020 10:50 PM CDT 06/15/2020 11:49 PM CDT us Miranda Mayer STRAPPING MACHINE OPERATOR LAB BLOOD ORDERABLES Final Res ult [facility] Department [place] [address] * (ABNORMAL) CBC without differential (06/15/2020 4:14 AM CDT) WBC 13.2(H) 3.8 - 9.9 K/cumm [facility] Hgb 10.5(L) 13.0 - 17.5 g/dL [facility] Hct 33.4(L) 38.9 - 50.3 % [facility] Plt 244 150 - 400 K/cumm [facility] MPV 10.3 9.1 - 12.3 fL [facility] RBC 3.39(L) 4.30 - 5.80 M/cumm [facility] MCV 98.5(H) 81.3 - 96.4 fL [facility] MCH 31.0 27.1 - 33.3 pg [facility] MCHC 31.4(L) 32.3 - 35.7 g/dL [facility] RDW CV 13.5 11.1 - 14.9 % [facility] RDW SD 49.2(H) 35.7 - 48.1 fL [facility] NRBC abs 0.00 0.00 - 0.01 K/cumm [facility] Blood specimen (specimen) 06/15/2020 4:14 AM CDT 06/15/2020 5:07 AM CDT us Valencia Khan MD LAB BLOOD ORDERABLES Frances l Result [facility] Department [place] [address] * (ABNORMAL) Basic metabolic panel (06/15/2020 4:14 AM CDT) [facility] Sodium 139 135 - 145 mmol/L [facility] Potassium, pl 4.9 3.3 - 4.9 mmol/L [facility] Chloride 106 97 - 110 mmol/L [facility] CO2 21(L) 22 - 32 mmol/L [facility] Anion gap 12 2 - 15 mmol/L [facility] BUN 56(H) 8 - 25 mg/dL [facility] Creatinine 4.13(H) 0.80 - 1.30 mg/dL [facility] Glucose 149 70 - 199 mg/dL [facility] Comment: Interpretive Data Fasting glucose >/= [...] interpretive data was last revised 2017. Calcium 7.9(L) 8.5 - 10.3 mg/dL [facility] Blood specimen (specimen) 06/15/2020 4:14 AM CDT 06/15/2020 5:06 AM CDT Valencia Khan MD LAB BLOOD ORDERABLES Frances l Result Performing Organization Address City/[facility]/ZIP Co de Phone Number [facility] Department [place] [address] * (ABNORMAL) POC Blood Gas and Chemistries, Arterial - (06/14/2020 11:39 AM CDT) pH, Art POC 7.26(L) 7.35 - 7.45 [facility] pCO2, Art POC 51(H) 35 - 45 mmHg [facility] pO2, Art POC 280(H) 83 - 108 mmHg [facility] Na, POC 142 135 - 145 mmol/L [facility] K POC 5.1(H) 3.3 - 4.9 mmol/L [facility] Cl, POC 108 97 - 110 mmol/L [facility] Ionized Ca, POC 4.87 4.50 - 5.10 mg/dL [facility] Glucose, POC 136 70 - 199 mg/dL [facility] Lactate, POC 0.8 0.7 - 2.2 mmol/L [facility] SO2 (yesica) arterial 98(H) 90 - 95 % [facility] Base excess, POC -4.6 mmol/L [facility] HCO3, Art POC 23 20 - 30 mmol/L [facility] Hct, POC 37.0(L) 41.4 - 51.6 % [facility] O2 Sat, Art POC (Calc) 100 % [facility] Total Hb, POC 12.4(L) 13.8 - 17.2 g/dL [facility] Blood specimen (specimen) 06/14/2020 11:39 AM CDT 06/14/2020 11:39 AM CDT us Valencia Khan MD LAB POCT ORDERABLES - DEV ICE Final Result [facility] Department [place] [address] * Surgical pathology (06/14/2020 9:37 AM CDT) Tissue (Kidney, total nephrectomy) 06/14/2020 9:37 AM CDT Narrative [facility] - 06/17/2020 5:01 PM CDT EPIC results best viewed via link to PDF [facility] [place] [address] SURGICAL PATHOLOGY REPORT FINAL Patient Name: ?? NATIVIDAD BROWNE Gender: ??M : ??1960 (Age: 60) Address: ??[address] [place], [place] ??[address] Hospital #: ??[id number] Taken:06/14/2020 Received:06/14/2020 Reported: 06/17/2020 Patient Type: [facility] Inpatient ?? Service: Surgery Location: [facility] 052 Physician(s): ??Valencia Khan M.D. Reece Toledo M.D. Grant Matthew Henning, M.D. Diagnosis: Kidney, right, radical nephrectomy: - [...] By ??Chantel Fong M.D., Ph.D. 06/17/2020 17:01:48 Microscopic Description and Comment: Microscopic examination supports the diagnosis. History: The patient is a 60-year-old man who presents with autosomal dominant polycystic kidney disease. ??Operative procedure: Right laparoscopic robotic-assisted nephrectomy. Specimen(s) Received: A: Right kidney Gross Description: The specimen is received in a single formalin filled container labeled with the patient's name and right kidney and consists of a 928.0 g, 19.5 x 13.0 x 8.2 cm radical nephrectomy specimen with an attached 4.5 cm length by 0.4 cm in diameter ureter and a moderate amount of attached perinephric adipose tissue. ??The diffusely cystic, nodular surface is inked black. ??The specimen is bisected to show a 17.9 x 12.5 x 8.0 cm kidney which demonstrates a multicystic cut surface with cysts ranging from 0.1-4.5 cm in greatest dimension with areas of colon-brown residual kidney parenchyma scattered throughout. ??The cysts are smooth lined and containing clear, serous fluid. ??A single 1.0 x 0.9 x 0.8 cm colon-yellow, solid component is grossly identified. ??Labeled A1 - hilar margins; A2 to A3 - colon-yellow, solid component, escrow representative; A4 to A5 - cystic component including residual renal pelvis and renal sinus; A6 to A9 - additional cystic component including residual kidney parenchyma in A6 and A8. ??Jar 4. and06/15/2020 09:47 PA(s): Agustin Morelos MS, JUDY ([facility]) ? 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 Procedure: ?Radical nephrectomy ? Speicmen laterality: ?Right ? Tumor site: ?Not specified ? Tumor size: ?Greatest dimension: 1.0 cm ? Additional dimensions: 0.9x0.8 cm ? Tumor focality: ?Unifocal ? 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 Sarcomatoid features: ?Not identified ? Rhabdoid Features: ?Not identified ? Tumor necrosis: ?Not identified ? Histologic Grade (WHO / ISUP Grade): ?G3: ??Nucleoli conspicuous and eosinophilic at 100x magnification ? Anatomic extent of tumor: ?Tumor limited to kidney ? Margins: ?Uninvolved by invasive carcinoma ? Lymphvascular invasion: ?Not identified ? Regional Lymph Nodes: ?No lymph nodes submitted or found ? Pathologic Stage Classification (pTNM, AJCC 8th Edition): Primary tumor: ?pT1a: ??Tumor 4 cm or less in greatest dimension, limited to the kidney Regional lymph nodes (pN): ?pNX: ??Regional lymph nodes cannot be assessed ? Pathologic findings in nonneoplastic kidney: ? Other: autosomal dominant polycystic kidney disease ? The pathologic stage assigned here should be regarded as provisional, and may change after integration of clinical data not provided with this specimen. CAP VERSION: ??Kidney 4.0.1.0 By this signature, I attest that the above diagnosis is based upon my personal examination of the slides(and/or other material). Addenda/Procedures The performance characteristics of some immunohistochemical stains, fluorescence in-situ hybridization tests and immunophenotyping by flow cytometry cited in this report (if any) were determined by the Surgical Pathology Department at [facility] as part of an ongoing quality assurance analyst program and in compliance with federally mandated regulations drawn from the Clinical Laboratory Improvement Act of 1988 (CLIA '88). ??Some of these tests rely on the use of analyte specific reagents and are subject to specific labeling requirements by the US Food and Drug Administration. ??Such diagnostic tests may only be performed in a facility that is certified by the Department of Health and Human Services as a high complexity laboratory under CLIA '88. ??The FDA has determined that such clearance or approval is not necessary. ??This test is used for clinical purposes. ??It should not be regarded as investigational or for research. ??Nevertheless, federal rules concerning the medical use of analyte specific reagents require that the following disclaimer be attached to the report: This test was developed and its performance characteristics determined by the Surgical Pathology Department of [facility]. ??It has not been cleared or approved by the U. S. Food and Drug Administration. IMAGES AND SCANNED DOCUMENTS, IF INCLUDED, ONLY VIEWABLE IN PDF VERSION OF REPORT us Valencia Khan MD LAB PATHOLOGY ORDERABLES Final Result [facility]Y [facility] [address] [place], [place] [phone] * POCT UP-O-[id number]-GLU-HCT, WB - ISTAT (06/14/2020 6:13 AM CDT) K POC 4.6 3.3 - 4.9 mmol/L [facility] Blood specimen (specimen) 06/14/2020 6:13 AM CDT 06/14/2020 6:13 AM CDT Valencia Khan MD LAB POCT ORDERABLES - DEV ICE Final Result Performing Organization Address [facility] Co de Phone Number [facility] Department [place] [address] documented in this encounter Visit Diagnoses Diagnosis Autosomal dominant polycystic kidney disease- Primary Congenital polycystic kidney, autosomal dominant Autosomal dominant polycystic kidney disease Congenital polycystic kidney, autosomal dominant Acute postoperative abdominal pain documented in this encounter Admitting Diagnoses Diagnosis Autosomal dominant polycystic kidney disease Congenital polycystic kidney, autosomal dominant documented in this encounter Administered Medications Inactive Administered Medications - up to 3 most recent administrations Medication Order MAR Action Action Date Dose Rate Site acetaminophen (TYLENOL) tablet 1,000 mg 1,000 mg, oral, Every 6 hours scheduled, First dose on Sat06/14/20 at 1800, Indications: PainIndications:Pain Given 06/18/2020 5:27 PM CDT 1,000 mg Given 06/18/2020 11:40 AM CDT 1,000 mg Given 06/17/2020 5:19 PM CDT 1,000 mg amLODIPine (NORVASC) tablet 5 mg 5 mg, oral, Every morning, First dose on Sat06/15/20 at 0900, Indications: hypertensionIndications:hypertension Given 06/18/2020 10:02 AM CDT 5 mg Given 06/17/2020 8:40 AM CDT 5 mg Given 06/16/2020 9:18 AM CDT 5 mg bisacodyL (DULCOLAX) suppository 10 mg 10 mg, rectal, Once, On Sat06/16/20 at 1315, For 1 dose Given 06/16/2020 2:53 PM CDT 10 mg bisacodyL (DULCOLAX) suppository 10 mg 10 mg, rectal, 2 times daily PRN, constipation, Starting on Brenna 06/16/20 at 1816 cephalexin (KEFLEX) capsule 250 mg 250 mg, oral, 2 times daily, First dose on 06/18/20 at 1000, Indications: Skin/Soft Tissue InfectionIndications:Skin/Soft Tissue Infection Given 06/18/2020 11:40 AM CDT 250 mg cyclobenzaprine (FLEXERIL) tablet 5 mg 5 mg, oral, 3 times daily PRN, muscle spasms, Starting on Brenna 06/16/20 at 0828 Given 06/17/2020 4:05 AM CDT 5 mg Given 06/16/2020 7:56 PM CDT 5 mg Given 06/16/2020 12:29 PM CDT 5 mg dextrose 5% and sodium chloride 0.45% infusion (premix) 125 mL/hr, intravenous, Continuous, Starting on Sat06/14/20 at 1315, Phase I & Post-op Floor Rate/Dose Verify 06/15/2020 11:32 AM CDT 125 mL/hr 125 mL/hr Rate/Dose Verify 06/15/2020 10:00 AM CDT 125 mL/hr 125 mL /hr Rate/Dose Verify 06/15/2020 9:00 AM CDT 125 mL/hr 125 mL/ hr docusate with cottonseed oil enema rectal, Once, On Brenna 06/16/20 at 1900, For 1 dose Given 06/16/2020 8:45 PM CDT fentaNYL (SUBLIMAZE) preservative free injection 50 mcg 50 mcg, intravenous, Once as needed, uncontrolled pain on PACU admission, Starting on Sat06/14/20 at 1237, For 1 dose, Phase I, Then proceed to PACU 1st line analgesic., Indications: PainIndications:Pain Given 06/14/2020 3:12 PM CDT 50 mcg heparin 5,000 unit/mL injection 5,000 Units 5,000 Units, subcutaneous, Every 8 hours scheduled, First dose on Sat06/14/20 at 1745, Indications: Deep Vein Thrombosis PreventionIndications:Deep Vein Thrombosis Prevention Given 06/18/2020 5:27 PM CDT 5,000 Units Right Lower Abdomen Given 06/18/2020 5:11 AM CDT 5,000 Units R ight Lower Abdomen Given 06/17/2020 10:45 PM CDT 5,000 Units Left Lower Abdomen HYDROmorphone (DILAUDID) injection 0.2 mg 0.2 mg, intravenous, Administer over 2 Minutes, Every 10 min PRN, 1st line for pain, Starting on Sat06/14/20 at 1237, Phase I, Switch to 2nd line analgesic order if pain is uncontrolled or increasing after 2 doses. Notify Anesthesiologist if total PACU dose reaches 2 mg and pain score 5/10 or more., Indications: PainIndications:Pain Given 06/14/2020 1:36 PM CDT 0.2 mg Given 06/14/2020 1:11 PM CDT 0.2 mg Given 06/14/2020 12:55 PM CDT 0.2 mg HYDROmorphone (DILAUDID) injection 0.2 mg 0.2 mg, intravenous, Administer over 2 Minutes, Every 4 hours PRN, breakthrough pain, Starting on Sat06/14/20 at 1839 Given 06/15/2020 11:31 AM CDT 0.2 m g Given 06/15/2020 5:06 AM CDT 0.2 mg Given 06/14/2020 8:37 PM CDT 0.2 mg lactulose 0.67 gram/mL oral solution 10 g 10 g, oral, 2 times daily PRN, constipation, Starting on Sat06/14/20 at 1720, Indications: constipationIndications:constipation Given 06/15/2020 10:16 AM CDT 10 g lactulose 0.67 gram/mL oral solution 10 g 10 g, oral, 2 times daily, First dose (after last modification) on Sat06/16/20 at 0930, Indications: constipationIndications:constipation Given 06/18/2020 10:02 AM CDT 10 g Given 06/17/2020 8:20 PM CDT 10 g Given 06/17/2020 8:40 AM CDT 10 g lactulose 0.67 gram/mL oral solution 15 g 15 g, oral, 2 times daily, First dose (after last modification) on Sat06/15/20 at 2100, Indications: constipationIndications:constipation Given 06/15/2020 9:00 PM CDT 15 g metoprolol tartrate (LOPRESSOR) immediate release tablet 25 mg 25 mg, oral, 2 times daily, First dose on Sat06/14/20 at 2100, Indications: coronary artery disease, hypertensionIndications:coronary artery disease,hypertension Given 06/18/2020 10:03 AM CDT 25 mg Given 06/17/2020 8:19 PM CDT 25 mg Given 06/17/2020 8:40 AM CDT 25 mg ondansetron (ZOFRAN) 4 mg/2 mL injection - ADS Override Pull Starting on Sat06/14/20 at 1710, For 1 dose, AMAURI PINZON: cabinet override ondansetron (ZOFRAN) injection 4 mg 4 mg, intravenous, Administer over 2 Minutes, Every 6 hours PRN, nausea, vomiting, if not tolerating PO, Starting on Sat06/14/20 at 1707, Indications: nausea and vomitingIndications:nausea and vomiting Given 06/16/2020 8:00 PM CDT 4 mg Given 06/15/2020 7:23 AM CDT 4 mg Given 06/14/2020 5:10 PM CDT 4 mg ondansetron ODT (ZOFRAN-ODT) disintegrating tablet 4 mg 4 mg, oral, Every 6 hours PRN, nausea, vomiting, Starting on Sat06/14/20 at 1707, Indications: nausea and vomitingIndications:nausea and vomiting oxyCODONE (ROXICODONE) tablet 10 mg 10 mg, oral, Every 3 hours PRN, 1st line for pain, Starting on Sat06/16/20 at 1830, Indications: PainIndications:Pain Given 06/18/2020 5:40 PM CDT 10 mg Given 06/18/2020 11:40 AM CDT 10 mg Given 06/17/2020 11:38 AM CDT 10 mg oxyCODONE (ROXICODONE) tablet 5 mg 5 mg, oral, Every 4 hours PRN, 1st line for pain, Starting on Sat06/14/20 at 1707, Indications: PainIndications:Pain Given 06/16/2020 2:58 PM CDT 5 mg Given 06/16/2020 12:07 AM CDT 5 mg Given 06/15/2020 5:47 PM CDT [address] (PROTONIX) extended release tablet 40 mg 40 mg, oral, Daily, First dose on Sat06/15/20 at 0900, Do not crush, chew, cut, dissolve, open or otherwise manipulate tablet/capsule., Indications: Treatment of Non-Bleeding Gastric DisorderIndications:Treatment of Non-Bleeding Gastric Disorder Given 06/18/2020 10:02 AM CDT 40 mg Given 06/17/2020 8:40 AM CDT 40 mg Given 06/16/2020 9:18 AM CDT 40 mg polyethylene glycol (MIRALAX) packet 17 g 17 g, oral, Daily, First dose on Sat06/15/20 at 1630 Given 06/16/2020 9:18 AM CDT 17 g Given 06/15/2020 5:46 PM CDT 17 g polyethylene glycol (MIRALAX) packet 17 g 17 g, oral, 2 times daily, First dose (after last modification) on Sat06/16/20 at 2100 Given 06/18/2020 10:02 AM CDT 1 7 g Given 06/17/2020 8:40 AM CDT 17 g scopolamine patch 72 hour 1 patch 1 patch, transdermal, Administer over 72 Hours, Once, On Sat06/14/20 at 0745, For 1 dose, Pre-Op Medication Applied 06/14/2020 7:26 AM CDT 1 patch Behind Left Ear senna (SENOKOT) tablet 1 tablet 1 tablet, oral, 2 times daily PRN, constipation, Starting on Sat06/14/20 at 1707, Indications: constipationIndications :constipation Given 06/16/2020 9:18 AM CDT 1 tablet senna-docusate (PERICOLACE) 8.6-50 mg per tablet 1 tablet 1 tablet, oral, 2 times daily, First dose on Sat06/15/20 at 2100 Given 06/18/2020 10:02 AM CDT 1 tablet Given 06/17/2020 8:40 AM CDT 1 tablet Given 06/16/2020 9:28 AM CDT 1 tablet sodium chloride 0.9% flush 0.5-20 mL 0.5-20 mL, intra-catheter, Every 8 hours scheduled, First dose on Sat06/14/20 at 1745, Flush volume based on line type and size. , Indications: FlushingIndications:Flushing Given 06/18/2020 6:36 AM CDT 10 mL Given 06/17/2020 8:19 PM CDT 10 mL Given 06/17/2020 3:33 PM CDT 10 mL sodium chloride 0.9% infusion 30 mL/hr, intravenous, Continuous, Starting on Sat06/14/20 at 0615, Pre-Op New Bag 06/14/2020 6:00 AM CDT 30 mL/hr 30 mL/hr tamsulosin (FLOMAX) extended release capsule 0.4 mg 0.4 mg, oral, Daily with dinner, First dose on Sat06/17/20 at 1815, Do not crush, chew, cut, dissolve, open or otherwise manipulate tablet/capsule. Given 06/18/2020 5:27 PM CDT 0.4 mg Given 06/17/2020 5:52 PM CDT 0.4 mg documented in this encounter Discontinued Medications Medication Sig Discontinue Reason Start Date End Da te oxyCODONE (ROXICODONE) 5 mg immediate release tabletIndications:Pain Take 1 or 2 tablets every 4 hours as needed for pain 06/16/2020 06/18/2020 documented as of this encounter Active and Recently Administered Medications Times are shown in CDT. Scheduled Medication Order 06/16/2020 06/17/2020 06/18/2020 acetaminophen (TYLENOL) tablet 1,000 mg 1,000 mg, oral, Every 6 hours scheduled, First dose on Sat06/14/20 at 1800, Indications: Pain 0007 (Given - Provider: Ivory Martin RN)0631 (Given - Provider: Ivory Martin RN)1151 (Given - Provider: Stacey Hayward RN)1810 (Given - Provider: Stacey Hayward RN)2320 (Not Given - Provider: Erica Melendez RN - Reason: Patient/family refused) 0532 (Given - Provider: Destiny Mabry RN)1140 (Given - Provider: María Ward, LEYDI)1719 (Given - Provider: María Ward, LEYDI) 0000 (Not Given - Provider: Catalina Jade RN - Reason: Patient/family refused)0624 (Not Given - Provider: Catalina Jade RN - Reason: Patient/family refused)1140 (Given - Provider: María Ward RN)1727 (Given - Provider: María Ward, LEYDI) amLODIPine (NORVASC) tablet 5 mg 5 mg, oral, Every morning, First dose on Sat06/15/20 at 0900, Indications: hypertension 0918 (Given - Provider: Stacey Hayward RN) 0840 (Given - Provider: María Ward, LEYDI) 1002 (Given - Provider: María Ward RN) bisacodyL (DULCOLAX) suppository 10 mg (COMPLETED) 10 mg, rectal, Once, On Sat06/16/20 at 1315, For 1 dose 1453 (Given - Provider: Stacey Hayward RN) cephalexin (KEFLEX) capsule 250 mg 250 mg, oral, 2 times daily, First dose on Sat06/18/20 at 1000, Indications: Skin/Soft Tissue Infection 1140 (Given - Provider: María Ward RN) docusate with cottonseed oil enema (COMPLETED) rectal, Once, On Sat06/16/20 at 1900, For 1 dose 2045 (Given - Provider: Destiny Mabry RN) heparin 5,000 unit/mL injection 5,000 Units 5,000 Units, subcutaneous, Every 8 hours scheduled, First dose on Sat06/14/20 at 1745, Indications: Deep Vein Thrombosis Prevention 0632 (Given - Provider: Ivory Martin RN)1453 (Given - Provider: Stacey Hayward RN)1956 (Given - Provider: Destiny Mabry RN)2148 (Canceled Entry - Provider: Erica Melendez RN - Comment: given earlier) 0531 (Given - Provider: Destiny Mabry RN)1533 (Given - Provider: María Ward RN)2245 (Given - Provider: Catalina Jade RN) 0511 (Given - Provider: Destiny Mabry RN)1727 (Given - Provider: María Ward, LEYDI) lactulose 0.67 gram/mL oral solution 10 g 10 g, oral, 2 times daily, First dose (after last modification) on Sat06/16/20 at 0930, Indications: constipation 0917 (Given - Provider: Stacey Hayward RN)1809 (Given - Provider: Stacey Hayward RN - Comment: given early per TO)1956 (Not Given - Provider: Destiny Mabry RN - Reason: Patient/family refused) 0840 (Given - Provider: María Ward RN)2019 (Given - Provider: Destiny Mabry RN) 1002 (Given - Provider: María Ward RN) metoprolol tartrate (LOPRESSOR) immediate release tablet 25 mg 25 mg, oral, 2 times daily, First dose on Sat06/14/20 at 2100, Indications: coronary artery disease, hypertension 18 (Given - Provider: Stacey Hayward RN)1953 (Given - Provider: Destiny Mabry RN) 0840 (Given - Provider: María Ward RN)2018 (Given - Provider: Destiny Mabry RN) 100 (Given - Provider: María Ward RN) pantoprazole DR (PROTONIX) extended release tablet 40 mg 40 mg, oral, Daily, First dose on Sat06/15/20 at 0900, Do not crush, chew, cut, dissolve, open or otherwise manipulate tablet/capsule., Indications: Treatment of Non-Bleeding Gastric Disorder 917 (Given - Provider: Stacey Hayward RN) 0840 (Given - Provider: María Ward RN) 1002 (Given - Provider: María Ward RN) polyethylene glycol (MIRALAX) packet 17 g (CANCELED) 17 g, oral, Daily, First dose on Sat06/15/20 at 1630 0918 (Given - Provider: Stacey Hayward RN) polyethylene glycol (MIRALAX) packet 17 g 17 g, oral, 2 times daily, First dose (after last modification) on Sat06/16/20 at 2100 195 (Not Given - Provider: Destiny Mabry RN - Reason: Patient/family refused) 0840 (Given - Provider: María Ward RN)2020 (Not Given - Provider: Destiny Mabry RN - Reason: Patient/family refused) 1002 (Given - Provider: María Ward RN) senna-docusate (PERICOLACE) 8.6-50 mg per tablet 1 tablet 1 tablet, oral, 2 times daily, First dose on Sat06/15/20 at 2100 0928 (Given - Provider: Stacey Hayward RN)2000 (Not Given - Provider: Destiny Mabry RN - Reason: Patient/family refused - Comment: too bloated) 0840 (Given - Provider: María Ward RN)2020 (Not Given - Provider: Destiny Mabry RN - Reason: Patient/family refused) 1002 (Given - Provider: María Ward RN) sodium chloride 0.9% flush 0.5-20 mL 0.5-20 mL, intra-catheter, Every 8 hours scheduled, First dose on Sat06/14/20 at 1745, Flush volume based on line type and size. , Indications: Flushing 0918 (Given - Provider: Stacey Hayward RN)1627 (Not Given - Provider: Stacey Hayward RN - Reason: Other)1953 (Given - Provider: Destiny Mabry RN)2148 (Not Given - Provider: Erica Melendez RN - Reason: IV Infusing) 0455 (Not Given - Provider: Erica Melendez RN - Reason: Other)1533 (Given - Provider: María Wadr RN)2019 (Given - Provider: Destiny Mabry RN) 0636 (Given - Provider: Destiny Mabry RN)1400 (Not Given - Provider: María Ward RN - Reason: Order parameters not met - Comment: IV's removed for discharge) tamsulosin (FLOMAX) extended release capsule 0.4 mg 0.4 mg, oral, Daily with dinner, First dose on Sat06/17/20 at 1815, Do not crush, chew, cut, dissolve, open or otherwise manipulate tablet/capsule. 1752 (Given - Provider: María Ward, LEYDI) 1727 (Given - Provider: María Ward RN) PRN Medication Order 06/16/2020 06/17/2020 06/18/2020 bisacodyL (DULCOLAX) suppository 10 mg 10 mg, rectal, 2 times daily PRN, constipation, Starting on Sat06/16/20 at 1816 cyclobenzaprine (FLEXERIL) tablet 5 mg 5 mg, oral, 3 times daily PRN, muscle spasms, Starting on Sat06/16/20 at 0828 1229 (Given - Provider: Stacey Hayward RN)1956 (Given - Provider: Destiny Mabry RN) 0405 (Given - Provider: Destiny Mabry RN) ondansetron (ZOFRAN) injection 4 mg(Linked Group 1) 4 mg, intravenous, Administer over 2 Minutes, Every 6 hours PRN, nausea, vomiting, if not tolerating PO, Starting on Sat06/14/20 at 1707, Indications: nausea and vomiting 2000 (Given - Provider: Destiny Mabry RN) ondansetron ODT (ZOFRAN-ODT) disintegrating tablet 4 mg(Linked Group 1) 4 mg, oral, Every 6 hours PRN, nausea, vomiting, Starting on Sat06/14/20 at 1707, Indications: nausea and vomiting 1999 (See Alternative - Provider: Destiny Mabry RN) oxyCODONE (ROXICODONE) tablet 10 mg 10 mg, oral, Every 3 hours PRN, 1st line for pain, Starting on Brenna 06/16/20 at 1830, Indications: Pain 1138 (Given - Provider: María Ward, LEYDI) 1140 (Given - Provider: María Ward RN)1740 (Given - Provider: María Ward RN) oxyCODONE (ROXICODONE) tablet 5 mg (CANCELED) 5 mg, oral, Every 4 hours PRN, 1st line for pain, Starting on Sat06/14/20 at 1707, Indications: Pain 0007 (Given - Provider: Ivory Martin RN)1458 (Given - Provider: Stacey Hayward RN) senna (SENOKOT) tablet 1 tablet 1 tablet, oral, 2 times daily PRN, constipation, Starting on Sat06/14/20 at 1707, Indications: constipation 0918 (Given - Provider: Stacey Hayward RN) sodium chloride 0.9% flush 0.5-20 mL 0.5-20 mL, intra-catheter, As needed, line care, Starting on Sat06/14/20 at 1707, Flush volume based on line type and size. Flush before and after each use. , Indications: Flushing Linked Groups Order Group 1: ondansetron ODT (ZOFRAN-ODT) disintegrating tablet 4 mgJump to med 4 mg, oral, Every 6 hours PRN, nausea, vomiting, Starting on Sat06/14/20 at 1707, Indications: nausea and vomiting Or ondansetron (ZOFRAN) injection 4 mgJump to med 4 mg, intravenous, Administer over 2 Minutes, Every 6 hours PRN, nausea, vomiting, if not tolerating PO, Starting on Sat06/14/20 at 1707, Indications: nausea and vomiting documented in this encounter Orders Medications Ordered That Wolf ht Not Have Been Administered Count Last Ordered Date First Ordered Date bisacodyL (DULCOLAX) suppository 10 mg bupivacaine (MARCAINE) 0.25 % (2.5 mg/mL) preservative free injection 06/14/2020 HYDROmorphone (DILAUDID) injection 0.4 mg 06/14/2020 lactulose 0.67 gram/mL oral solution 10 g 1 06/14/2020 lidocaine PF (XYLOCAINE) 10 mg/mL (1 %) preservative free injection 2-10 mg 06/14/2020 ondansetron (ZOFRAN) injection 4 mg 06/14 ondansetron ODT (ZOFRAN-ODT) disintegrating tablet 4 mg 06/14/2020 prochlorperazine (COMPAZINE) injection 10 mg 06/14/2020 sodium chloride 0.9 % irrigation 2 06/14/20 20 sodium chloride 0.9% flush 0.5-20 mL 2 05/28 Consult Count Last Ordered Date First Orde red Date IP CONSULT TO VASCULAR SURGERY 1 06/17/2020 IP CONSULT TO NEPHROLOGY 1 06/15/2020 documented in this encounter Care Teams Behavior Support Specialist Relationship Specialty Start Date End Date Gerardo Shah MD PCP - General Internal Medicine 09/30/18 Suzette Strickland MD [address] [facility] [address] [place] [address] Referring Physician Nephrology 02/15/20 Rita Tapia, RN [address] [place], [place] [id number] Registered Nurse Marketing Mgr 02/15/20 documented as of this encounter
--- OUTSIDE RECORDS SUMMARY | 2024-10-16 06:41 | XMS_ITS | Encounter Summary ---
Author Organization [facility] of [facility] Address [address] [place] [address] Phone Care Team Providers Care Group Sales Coordinator Name Role Phone Gerardo Shah MD Primary Care Provider [phone] Suzette Strickland MD Unavailable [phone] Rita Tapia RN Unavailable [phone] Encounter Details Date Type Department Care Team (Late st Contact Info) Description 06/21/2020 Orders Only [facility] ([facility]) - [facility] Urology [address] [facility] Advanced Medicine 11th [place] [address] [place] [address] Lien De La Torre, COLLARETTE SEPARATOR Social History Tobacco Use Types Packs/Day Years Used Date Smoking Tobacco: Former Cigarettes 1.5 40 0 04/11/1978 - 2017 Smokeless Tobacco: Never Alcohol Use Standard Drinks/Week Comments No 0 (1 standard drink = 0.6 oz pur e alcohol) Sex and Gender Information Value Date Recorded Sex Assigned at Not on file 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 Gender Identity Not on file Sexual Orientation Straight 05/03/2020 10 :36 AM CDT documented as of this encounter Plan of Treatment Scheduled Procedures Name Priority Associated Diagnoses Date/Ti me TRANSPLANT KIDNEY ESRD (end stage renal disease) ([facility]) documented as of this encounter Visit Diagnoses Not on filedocumented in this encounter Care Teams Group Sales Coordinator Relationship Specialty Start Date End Date Gerardo Shah MD PCP - General Internal Medicine 09/30/18 Suzette Strickland MD [address] [facility] [address] [place] [address] Referring Physician Nephrology 02/15/20 iRta Tapia, RN [address] [place] [address] Registered Nurse Butcher Or Smallgoods Maker 02/15/20 documented as of this encounter
--- OUTSIDE RECORDS SUMMARY | 2024-10-16 06:41 | XMS_ITS | Encounter Summary ---
Author Organization [facility] of [facility] Address [address] [place] [address] Phone Care Team Providers Care Shipping Processor Name Role Phone Gerardo Shah MD Primary Care Provider [phone] Suzette Strickland MD Unavailable [phone] Rita Tapia RN Unavailable [phone] Reason for Visit * Consultation (Routine) - Canceled Specialty Diagnoses / Procedures Referred By Kishore elkins Referred To Contact Urology Diagnoses Polycystic kidney disease Gerardo Shah MD Phone: tel: fax: Referral ID Status Reason Start Date Expiration Date Visits Requested Visits Authorized [id number] Canceled Specialty Services Required 04/28/2020 11/07/2021 99 99 Encounter Details Date Type Department Care Team (Late st Contact Info) Description 05/05/2020 9:00 AM CDT Telemedicine [place] ([facility]) - [facility] Urology [address] [place] [address] Advanced Medicine 11th [place] [address] [place] [address] Marc Khan MD [address] 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 y.o. male. Chief Complaint No chief complaint on file. HPI Symptomatic ADPKD. He has shortness of breath, abdominal distention and bowel symptoms. He voids normally. I was requested to see Abel Browne to evaluate his/her ADPKD by the renal transplant service. Review of Systems Constitutional: Negative for chills, fever and malaise/fatigue. Respiratory: Negative for shortness of breath. Gastrointestinal: Negative for abdominal pain, nausea and vomiting. Genitourinary: Negative for dysuria, flank pain and hematuria. Musculoskeletal: Negative for back pain. Skin: Negative for rash. Results CT scan dated 04/04/20: IMPRESSION: ?? 1. Minimal abdominal aortic and [...] In [address] Mon[address] with noncontrast chest CT. ?? Electronically signed by: Nitish Rodriguez M.D. I personally and independently reviewed this patient's radiology images. I agree with the radiologist's report. Labs: Lab Results Component Value Date CREATININE 2.56 (H) 04/04/2020 A/P: Symptomatic ADPKD. We discussed treatment options including cyst decortication, unilateral and bilateral nephrectomy. We have agreed on doing a right laparoscopic nephrectomy. WE reviewed the potential risks and complications and the usual expectations surrounding the surgery. He understands that he could require dialysis following the surgery. This was a telemedicine visit with Abel Browne and his which took place via Telephone. During the visit, I was located at [address] [place] [address] and the patient was located at his home in [facility]. The session started at 0923 and ended at 0949. The patient has been informed that the visit may not be secure and acknowledged the information. I have explained the option of participating in a telephone or video visit during the COVID-19 public health emergency to the patient. After being given an opportunity to ask questions about and discuss this type of visit, the patient verbally consented to proceeding with the telephone / video visit. The patient understands that this service replaces an office visit and they may be billed and/or responsible for any applicable copayments. documented in this encounter Plan of Treatment Scheduled Procedures Name Priority Associated Diagnoses Date/Ti me TRANSPLANT KIDNEY ESRD (end stage renal disease) ([facility]) documented as of this encounter Visit Diagnoses Diagnosis Polycystic kidney disease, autosomal dominant- Primary Congenital polycystic kidney, autosomal dominant documented in this encounter Care Teams Shipping Processor Relationship Specialty Start Date End Date Gerardo Shah MD PCP - General Internal Medicine 09/30/18 Suzette Strickland MD [facility] [facility] [address] [place] [address] Referring Physician Nephrology 02/15/20 Rita Tapia, RN [address] [place], [place] [id number] Registered Nurse Clinical Research Administrator 02/15/20 documented as of this encounter
--- OUTSIDE RECORDS SUMMARY | 2024-10-16 06:41 | XMS_ITS | Encounter Summary ---
Author Organization [facility] Healthcare Address [address] [place] [address] Care Team Providers Care Contamination Consultant Name Role Phone Gerardo Shah MD Primary Care Provider [phone] Suzette Strickland MD Unavailable [phone] Rita Tapia RN Unavailable [phone] Reason for Referral * Renal Disease (Routine) - Closed Specialty Diagnoses / Procedures Referred By Contac t Referred To Contact Diagnoses End stage renal disease (CMS/HCC) (HCC) Procedures Stress Echo Pharmacologic Alonso King MD [address] [place] [address] Phone: tel: fax: [facility] [address] [place] [address] Referral ID Status Reason Start Date Expiration Date Visits Re quested Visits Authorized [id number] Closed 02/18/2020 08/29/2021 1 1 Reason for Visit * Renal Disease (Routine) - Closed Specialty Diagnoses / Procedures Referred By Contac t Referred To Contact Diagnoses End stage renal disease (CMS/HCC) (HCC) Procedures Stress Echo Pharmacologic Alonso King MD [address] [place] [address] Phone: tel: fax: [facility] [address] [place] [address] Referral ID Status Reason Start Date Expiration Date Visits Re quested Visits Authorized [id number] Closed 02/18/2020 08/29/2021 1 1 Encounter Details Date Type Department Care Team (Latest Contact Info) Description 04/11/2020 7:40 AM CDT - 04/11/2020 11:59 PM CDT Hospital Encounter [facility] Cardiac Diagnostic Lab [address] [place] [address] Alonso King MD [address] [place] [address] End stage renal disease (CMS/HCC) Discharge Disposition: Discharge to home or [...] file 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 Gender Identity Not on file Sexual Orientation Straight 05/03/2020 10 :36 AM CDT documented as of this encounter Last Filed Vital Signs Vital Sign Reading Time Taken Comments Blood Pressure 111/74 04/11/2020 9:30 AM CDT Pulse 85 04/11/2020 9:30 AM CDT Temperature - - Respiratory Rate - - Oxygen Saturation - - Inhaled Oxygen Concentration - - Weight 96.2 kg (212 lb) 04/11/2020 8:24 AM CDT Height 190.5 cm (6' 3 ) 04/11/2020 8:24 AM CDT Body Mass Index 26.5 04/11/2020 8:24 AM CDT documented in this encounter Medications [...] DAILY 90 tablet 3 12/20/2019 1 lactulose solution 10 gram/15mLIndicatio ns:constipation Take 10 [...] stage renal disease) ([facility]) documented as of this encounter Procedures Procedure Name Priority Date/Time Associated Diagnosis Comments STRESS ECHO PHARMACOLOGIC W DOPPLER/CF W CONTRAST Routine 04/11/2020 9:28 AM CDT End stage renal disease (CMS/HCC) documented in this encounter Results * STRESS ECHO PHARMACOLOGIC W DOPPLER/CF W CONTRAST (04/11/2020 9:28 AM CDT) Anatomical Region Laterality Modality Ultrasound 04/11/2020 7:45 AM CDT Narrative 04/11/2020 9:54 AM CDT Patient name: Abel Browne Date of test: 04/11/2020 Hospital #: [id number] ?Location: [facility] Interpreted by: Baltazar Howe MD. Loan Auditor: Chucho Hoyt RDCS RN: Karthik Kruger RN Reason for Test: ESRD Study quality: Technically good Referring Physician: ALONSO KING MD Contrast Agent: 0.9 ml Optison Administered, (2.1 ml wasted). LV Global Function: Normal left ventricular systolic function. Baseline Echo Comments: Normal LV+RV ??normal systolic function - No wall abnormalities, Mild LVH. Normal LA+RA size. EF 71% Doppler/CF Comments: Mild MR. ??e/e' 6 (septal) 5 (lateral) Baseline HR: 72 Baseline BP: 126/82 Conduction Defects: None Resting ECG Comments: Normal sinus rhythm. Medications: Metoprolol, Norvasc, ASA Meds held: Metoprolol Intravenous dobutamine was infused to a maximal dose ??30 micro-g/Kg/min. Atropine: 0.2 mg. ?Other Med: Peak HR: 151 Peak BP: 111/69 [...] function and LV strain pattern. Confirmed on ??04/11/2020 - 09:54:04 by Baltazar Howe MD. By signing this report, the attending maori liaison adviser certifies that he or she has personally supervised and interpreted the echocardiogram and has reviewed and or edited and agrees with the written comments contained within the report. Procedure Note Fran Howe MD PhD - 04/11/2020 Patient name: Abel Browne Date of test: 04/11/2020 Hospital #: [id number] Location: [facility] Interpreted by: Baltazar Howe MD. Loan Auditor: Chucho Hoyt RDCS RN: Karthik Kruger RN Reason for Test: ESRD Study quality: Technically good Referring Physician: ALONSO KING MD Contrast Agent: 0.9 ml Optison [...] MD. By signing this report, the attending maori liaison adviser certifies that he or she has personally supervised and interpreted the echocardiogram and has reviewed and or edited and agrees with the written comments contained within the report. Alonso King MD CV ECHO PROCEDURES Final Result documented in this encounter Visit Diagnoses Diagnosis End stage renal disease (CMS/HCC) (HCC) End stage renal disease documented in this encounter Administered Medications Inactive Administered Medications - up to 3 most recent administrations Medication Order MAR Action Action Date Dose Rate Site atropine injection 0.2 mg 0.2 mg, intravenous, Administer over 1 Minutes, Titrated, Starting on Sat04/11/20 at 0900, Intra-Procedure (CV) New Bag 04/11/2020 9:00 AM CDT 0.2 mg DOBUTamine in dextrose 5% (DOBUTREX) 500 mg/250 mL (2,000 mcg/mL) infusion (premix) 10 mcg/kg/min ? 96.2 kg (28.86 mL/hr, rounded to 28.9 mL/hr), intravenous, Titrated, Starting on Sat04/11/20 at 0900, Intra-Procedure (CV) New Bag 04/11/2020 9:00 AM CDT 30 mcg/kg/min 86.6 mL/hr esmoloL (BREVIBLOC) injection 10 mg 10 mg, intravenous, Administer over 1 Minutes, Titrated, Starting on Sat04/11/20 at 0900, Intra-Procedure (CV) New Bag 04/11/2020 9:31 AM CDT 100 mg perflutren protein-a (OPTISON) 3 mL in sodium chloride 0.9% 8 mL syringe 1-8 mL, intravenous, Once in imaging, contrast, Starting on Sat04/11/20 at 0825, For 1 dose, Intra-Procedure (CV) Given 04/11/2020 9:31 AM CDT 2.5 mL documented in this encounter Care Teams Contamination Consultant Relationship Specialty Start Date End Date Gerardo Shah MD PCP - General Internal Medicine 09/30/18 Suzette Strickland MD [address] [facility] [address] [place] [address] Referring Physician Nephrology 02/15/20 Rita Tapia, RN [address] [place] [address] Registered Nurse Flight Communications Specialist 02/15/20 documented as of this encounter
--- OUTSIDE RECORDS SUMMARY | 2024-10-16 06:41 | XMS_ITS | Encounter Summary ---
Author Organization [facility] Healthcare Address [address] [place] [address] Care Team Providers Care Microfabrication Engineer Manager Name Role Phone Gerardo Shah MD Primary Care Provider [phone] Suzette Strickland MD Unavailable [phone] Rita Tapia RN Unavailable [phone] Encounter Details Date Type Department Care Team (Late st Contact Info) Description 06/09/2020 Orders Only [facility] HealthCare/ Physicians [address] [place], [place] [id number] Marc Khan MD [address] [id number] [place], [place] [phone] Pre-op testing (Primary Dx) Social History Tobacco Use Types Packs/Day Years Used Date Smoking Tobacco: Former Cigarettes 1.5 40 0 04/11/1978 - 2017 Smokeless Tobacco: Never Alcohol Use Standard Drinks/Week Comments No 0 (1 standard drink = 0.6 oz pur e alcohol) Sex and Gender Information Value Date Recorded Sex Assigned at Not on file 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 Order placed. Order and label printed for Location: [facility] documented in this encounter Plan of Treatment Scheduled Procedures Name Priority Associated Diagnoses Date/Ti me TRANSPLANT KIDNEY ESRD (end stage renal disease) ([facility]) documented as of this encounter Results * COVID-19 Coronavirus RNA Nasopharyngeal (06/10/2020 8:00 AM CDT) COVID-19 RNA Not Detected KARTIK MARSHALL (JT) Comment: Interpretive Data Testing performed at [facility] Molecular Infectious Disease Laboratory. The 2019-Novel Coronavirus [...] last revised on 2020. Testing performed by: [facility], [address] [place]., [address] Nasopharyngeal 06/10/2020 8: 00 AM CDT 06/10/2020 11:37 AM CDT Narrative UMANG MARSHALL (JT) - 06/10/2020 7:34 PM CDT Is the patient experiencing any symptoms consistent with COVID (eg. Fever, cough, shortness of breath)?->No What is the reason for testing?->Screening prior to scheduled (>12 hr) surgery or procedure us Marc Khan MD LAB MICROBIOLOGY - GENERA L ORDERABLES Final Result UMANG MARSHALL (JT) [address] [facility] [place] [address] documented in this encounter Visit Diagnoses Diagnosis Pre-op testing- Primary Unspecified pre-operative examination Pre-op testing Unspecified pre-operative examination documented in this encounter Care Teams Microfabrication Engineer Manager Relationship Specialty Start Date End Date Gerardo Shah MD PCP - General Internal Medicine 09/30/18 Suzette Strickland MD [address] [facility] [address] [place] [address] Referring Physician Nephrology 02/15/20 Rita Tapia, RN [address] [place], [place] [id number] Registered Nurse Supervisor Framing Mill 02/15/20 documented as of this encounter
--- OUTSIDE RECORDS SUMMARY | 2024-10-16 06:41 | XMS_ITS | Encounter Summary ---
Author Organization [facility] Healthcare Address [address] [place] [address] Care Team Providers Care Housekeeping Aid Name Role Phone Gerardo Shah MD Primary Care Provider [phone] Sueztte Strickland MD Unavailable [phone] Rita Tapia RN Unavailable [phone] Encounter Details Date Type Department Care Team (Late st Contact Info) Description 06/22/2020 Telephone [facility] Transplant Kidney [address] 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 They would like more direction as to what the next steps will be, please return call documented in this encounter Plan of Treatment Scheduled Procedures Name Priority Associated Diagnoses Date/Ti me TRANSPLANT KIDNEY ESRD (end stage renal disease) ([facility]) documented as of this encounter Visit Diagnoses Not on filedocumented in this encounter Care Teams Housekeeping Aid Relationship Specialty Start Date End Date Gerardo Shah MD PCP - General Internal Medicine 09/30/18 Suzette Strickland MD [address] [facility] [address] [place] [address] Referring Physician Nephrology 02/15/20 Rita Tapia, RN [address] [place] [address] Registered Nurse Equipment Analyst 02/15/20 documented as of this encounter
--- OUTSIDE RECORDS SUMMARY | 2024-10-16 06:41 | XMS_ITS | Encounter Summary ---
Author Organization [facility] Healthcare Address [address] [place] [address] Care Team Providers Care Sliver Lap Machine Tender Name Role Phone Gerardo Shah MD Primary Care Provider [phone] Suzette Strickland MD Unavailable [phone] Rita Tapia RN Unavailable [phone] Encounter Details Date Type Department Care Team (Late st Contact Info) Description 06/20/2020 Telephone [facility] Transplant Kidney [address] [facility] [address] [phone] [place] [address] Lashay Beyer Social History Tobacco Use Types Packs/Day Years Used Date Smoking Tobacco: Former Cigarettes 1.5 40 0 04/11/1978 - 2017 Smokeless Tobacco: Never Alcohol Use Standard Drinks/Week Comments No 0 (1 standard drink = 0.6 oz pur e alcohol) Sex and Gender Information Value Date Recorded Sex Assigned at Not on file 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 She stated that his Doctor said that he would be automatically moved to top of list since his kidney removed, she would like more clarification, please return call documented in this encounter Plan of Treatment Scheduled Procedures Name Priority Associated Diagnoses Date/Ti me TRANSPLANT KIDNEY ESRD (end stage renal disease) ([facility]) documented as of this encounter Visit Diagnoses Not on filedocumented in this encounter Care Teams Sliver Lap Machine Tender Relationship Specialty Start Date End Date Gerardo Shah MD PCP - General Internal Medicine 09/30/18 Suzette Strickland MD [address] [facility] [address] [place] [address] Referring Physician Nephrology 02/15/20 Rita Tapia, RN [address] [place], [place] [id number] Registered Nurse Balloon Dipper 02/15/20 documented as of this encounter
--- OUTSIDE RECORDS SUMMARY | 2024-10-16 06:41 | XMS_ITS | Encounter Summary ---
Author Organization [facility] Healthcare Address [address] [place] [address] Care Team Providers Care Factory Worker Name Role Phone Gerardo Shah MD Primary Care Provider [phone] Suzette Strickland MD Unavailable [phone] Rita Tapia RN Unavailable [phone] Reason for Referral * Diagnostic Imaging (Routine) - Closed Specialty Diagnoses / Procedures Referred By Contac t Referred To Contact Radiology Diagnoses End stage renal disease (CMS/HCC) (HCC) Procedures CT Abdomen Pelvis WO Contrast Alonso Pruitt MD [address] [facility] [address] [address] Phone: tel: fax: [facility] [address] [place] [address] Referral ID Status Reason Start Date Expiration Date Visits Re quested Visits Authorized [id number] Closed 02/18/2020 08/29/2021 1 1 Reason for Visit * Diagnostic Imaging (Routine) - Closed Specialty Diagnoses / Procedures Referred By Contac t Referred To Contact Radiology Diagnoses End stage renal disease (CMS/HCC) (HCC) Procedures CT Abdomen Pelvis WO Contrast Alonso Pruitt MD [address] [facility] [address] [place] [address] Phone: tel: fax: [facility] [address] [facility] [place] [address] Referral ID Status Reason Start Date Expiration Date Visits Re quested Visits Authorized [id number] Closed 02/18/2020 08/29/2021 1 1 Encounter Details Date Type Department Care Team (Latest Contact Info) Description 04/04/2020 12:36 PM CDT - 04/04/2020 11:59 PM CDT Hospital Encounter [facility] [address] [place] [address] Alonso Pruitt MD [address] [facility] [address] [place] [address] End stage renal disease ([facility]/HCC) Discharge Disposition: Discharge to home or self care Social History Tobacco Use Types Packs/Day Years Used Date Smoking Tobacco: Former Cigarettes Q uit: 2018 Smokeless Tobacco: Never Alcohol Use Standard Drinks/Week Comments No 0 (1 standard drink = 0.6 oz pur e alcohol) Sex and Gender Information Value Date Recorded Sex Assigned at Not on file Legal Sex Male 4:54 AM [employer] Gender Identity Not on file Sexual [...] Name Priority Date/Time Associated Diagnosis Comments CT ABDOMEN PELVIS WO CONTRAST Schedule Routine, Read Routine (OP Routine) 04/04/2020 12:48 PM CDT End stage renal disease (CMS/HCC) (HCC) documented in this encounter Results * CT Abdomen Pelvis WO Contrast (04/04/2020 12:48 PM CDT) Anatomical Region Laterality Modality Body N/A Computed Tomogra phy 04/04/2020 1:02 PM CDT Addenda Addendum by Nitish Rodriguez MD on 07/11/2021 4:15 PM CDT Follow up abdomen and pelvis CT completed 07/03/20. ??Aye DIETRICH, RN. Edited by: Aye Decker Electronically signed by: Nitish Rodriguez M.D. Impressions 04/04/2020 1:02 PM CDT 1. ??Minimal abdominal aortic and right common iliac artery calcific atherosclerosis. 2. ??Polycystic liver and kidney disease. ??Of note some of the renal lesions are hyperattenuating and may have hemorrhagic or proteinaceous content. ??Comparison with prior studies or MRI would be helpful to assess for any solid lesions. 3. ??6 mm nodule within the lingula for which a one-year follow-up study is recommended. Recommend follow up of the Incidental lung nodule Additional Imaging In [address] Mon[address] with noncontrast chest CT. ?? Electronically signed by: Nitish Rodriguez M.D. Narrative 04/04/2020 1:02 PM CDT EXAMINATION: ??Computed tomography of the abdomen and pelvis without intravenous contrast HISTORY: Renal transplant evaluation TECHNIQUE: ??Transaxial computed tomographic images of the abdomen and pelvis were obtained without intravenous contrast according to the standard protocol. COMPARISON: None available FINDINGS: ?? Within the lung bases, there is no pleural effusion, pneumothorax, or consolidation. ??A 6 mm nodule is present within the lingula at table position -711.5. ??Heart size is normal without pericardial effusion. The abdominal aorta demonstrates minimal atherosclerotic calcification as does the right common iliac artery. ??No external iliac artery atherosclerotic calcifications or aneurysm is identified. Innumerable cysts replace the parenchyma of both kidneys, most of which are simple fluid attenuation while others are hyperattenuating. There is no hydronephrosis. Multiple hepatic cysts are present. ??No definite solid liver lesion. No biliary duct dilation or gallbladder distention. ??No focal lesion is seen within the adrenal glands or the pancreas. ??The spleen is normal in size. No retroperitoneal mesenteric pelvic or inguinal lymphadenopathy. The prostate gland bladder grossly normal. ??No free intraperitoneal fluid or free gas. ??Scattered colonic diverticula are seen without associated inflammation. ??There is no peritoneal or omental nodularity. ??The appendix is normal. ??A small fat-containing right inguinal hernia is present. Bone windows demonstrate no osseous lesion or fracture. Procedure Note Nitish Rodriguez MD - 04/04/2020 EXAMINATION: Computed tomography of the abdomen and [...] windows demonstrate no osseous lesion or fracture. IMPRESSION: 1. Minimal abdominal aortic and right common [...] CT. Electronically signed by: Nitish Rodriguez M.D. us Alonso Pruitt MD IMG CT PROCEDURES Edited Result - Final documented in this encounter Visit Diagnoses Diagnosis End stage renal disease (CMS/HCC) (HCC) End stage renal disease documented in this encounter Care Teams Factory Worker Relationship Specialty Start Date End Date Gerardo Shah MD PCP - General Internal Medicine 09/30/18 Suzette Strickland MD [address] [facility] [address] [place] [address] Referring Physician Nephrology 02/15/20 Rita Tapia, RN [address] [place] [address] Registered Nurse Machine Bunch Maker 02/15/20 documented as of this encounter
--- OUTSIDE RECORDS SUMMARY | 2024-10-16 06:41 | XMS_ITS | Encounter Summary ---
Author Organization [facility] Healthcare Address [address] [place] [address] Care Team Providers Care Applications Specialist Name Role Phone Gerardo Shah MD Primary Care Provider [phone] Suzette Strickland MD Unavailable [phone] Rita Tapia RN Unavailable [phone] Encounter Details Date Type Department Care Team (Late st Contact Info) Description 06/14/2020 7:30 AM CDT - 06/14/2020 12:55 PM CDT Surgery [facility] Operating Room [address] [place] [address] Valencia Khan MD [id number] [place] [address] XI NEPHRECTOMY - LAPAROSCOPIC ROBOTIC ASSISTED Surgery Details Date/Time Status Location OR Service Patient Class Case Class Case Type Trauma Case? 06/14/2020 7:30 AM Posted [facility] OR POD 1 327 Urology Surgery Admit Elective Panel 1 Procedure LRB Anes Op Region Wound Class Comments XI NEPHRECTOMY - LAPAROSCOPIC ROBOTIC ASSISTED Right General Abdomen Class II - Clean Contaminated Surgeon Surgeon Role Service Panel Valencia Khan MD Primary Urology 1 Abraham Luciano DO Resident - Assisting General Surgery 1 Junior Mas MD Resident - Assisting Urolog y 1 documented in this encounter Social History Tobacco Use Types Packs/Day Years Used Date Smoking Tobacco: Former Cigarettes 1.5 40 0 04/11/1978 - 2017 Smokeless Tobacco: Never Alcohol Use Standard Drinks/Week Comments No 0 (1 standard drink = 0.6 oz pur e alcohol) Sex and Gender Information Value Date Recorded Sex Assigned at Not on file Legal Sex Male 4:54 AM 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 Gender Identity Not on file Sexual Orientation Straight 05/03/2020 10 :36 AM CDT documented as of this encounter Last Filed Vital Signs Vital Sign Reading Time Taken Comments Blood Pressure 127/76 06/14/2020 12:50 PM CDT Pulse 72 06/14/2020 12:50 PM CDT Temperature 36.1 ??C (97 ??F) 06/14/2020 12:23 PM CDT Respiratory Rate 13 06/14/2020 12:50 PM CDT Oxygen Saturation 96% 06/14/2020 12:50 PM CDT Inhaled Oxygen Concentration - - Weight - - Height - - Body Mass Index - - documented in this encounter Discharge Summaries * Miranda Mayer, US CUSTOMS AND BORDER OFFICER - 06/17/2020 2:09 PM CDT Inpatient Discharge Summary BRIEF OVERVIEW Admitting Provider: Valencia Khan MD Discharge Provider: Valencia Khan MD Primary Care Physician at Discharge: Gerardo Shah MD [phone] Admission Date: 06/14/2020 Discharge Date: 06/18/2020 Admission Location: [facility] Problems/Diagnoses: Principal Problem: Autosomal dominant polycystic [...] Discharge Instructions * Discharge Instructions* Miranda Mayer, US CUSTOMS AND BORDER OFFICER - 06/17/2020 2:09 PM CDT DISCHARGE INSTRUCTIONS [...] days, please feel free to remove them. [place]: You may shower and allow soapy water [...] see you on as scheduled. Please call [phone] with any questions or concerns. STAPLE REMOVAL APPOINTMENT - your doctor would like your samia removed in 7-10 days in the office. The clinic will call you to schedule a follow-up appointment. If you do not hear from them within 3 business days, please call [phone] to schedule your appointment with the Nurse Practitioner [facility]. Active issues requiring follow up: none Test [...] nights, weekends or holidays, please call the pest control operator and ask for the urology resident immigration paralegal. Belkys Mccormick MD [phone] 06/18/2020 Cosigned by Antonio Melendez MD at [...] BS normal. No masses SKIN: No rash HOUSE RN: Alert Ox3. No focal motor deficits PSYCH: Pleasant, cooperative, appropriate affect MSK: No joint swelling or tenderness Date 06/17/20699 - 06/18/20 0606/18/20699 - 06/19/20 0659 Shift 8617-7914 0454-5294 24 Hour Total 6913-2676 7628-1817 24 Hour Total INTAKE P.O. 300 300 Shift Total(mL/kg) 300(3.1) 300(3.1) OUTPUT Urine(mL/kg/hr) 825(0.7) 800 1625 Shift Total(mL/kg) 825(8.5) 800(8.2) 1625(16.7) NET 823 -500 -1322 Weight (kg) 97.5 97.5 97.5 97.5 97.5 97.5 LABORATORY DATA: Recent Labs Lab Units 06/17/20 2243 06/16/20 2326 06/15/20 2250 WBC K/cumm 8.0 11.8* 10.0* HEMOGLOBIN g/dL 11.3* 11.7* 10.6* PLATELETS K/cumm 258 253 234 Recent Labs Lab Units 06/17/203 06/16/20 2326 06/15/20 2250 SODIUM mmol/L 140 136 136 POTASSIUM PLASMA mmol/L 4.7 5.1* 4.9 CHLORIDE mmol/L 106 103 100 CO2 mmol/L * * 22 BUN SERUM mg/dL 71* 65* 57* [...] Patient will follow up with his outpatient wicker worker and is currently stable from renal standpoint for discharge but patient will need to follow up in 2 weeks with his wicker worker. - patient still with good UOP. - [...] and will follow up with his primary wicker worker for further planning of HD needs. Carroll Meyer MD Renal Fellow. Consult 2 Service Contact (phone): [phone] After hours and weekends: please page [phone] Cosigned by Markus Couch MD PhD at 06/18/2020 12:13 PM CDT Associated attestation - Markus Couch MD PhD - 06/18/2020 12:13 PM CDT I have seen and examined the patient today, . I agree with the findings and plan of care as documented in the resident's/fellow's note. For discharge today. He will follow up with his local wicker worker within two weeks. Markus Couch MD PhD [...] BS normal. No masses SKIN: No rash HOUSE RN: Alert Ox3. No focal motor deficits PSYCH: Pleasant, cooperative, appropriate affect MSK: No joint swelling or tenderness Date 06/16/20699 - 06/17/20 0606/17/20699 - 06/18/20 0659 Shift 0551-1067 1595-1671 24 Hour Total 4705-8249 9652-4016 24 Hour Total INTAKE P.O. 120 0 120 Shift Total(mL/kg) 120(1.2) 0(0) 120(1.2) OUTPUT Urine(mL/kg/hr) 725(0.6) 550(0.5) 1275(0.5) 150 150 Shift Total(mL/kg) 725(7.4) 550(5.6) 1275(13.1) 150(1.5) 150(1.5) NET -605 -550 -1155 -150 -150 Weight (kg) 97.5 97.5 97.5 97.5 97.5 97.5 LABORATORY DATA: Recent Labs Lab Units 06/16/206 06/15/20 2250 06/15/20 0414 WBC K/cumm 11.8* 10.0* 13.2* HEMOGLOBIN [...] Renal Fellow. Consult 2 Service Contact (phone): [phone] After hours and weekends: please page [phone] Cosigned by Markus Couch MD PhD at [...] a 60yo M with PMHx of ADPKD, CT ([facility] 2018 with no obstruction, thought to [...] 25 ? Renal??Consult 2 Service Contact (phone): [phone] After hours and weekends: please page [phone] ?? Gatito Barrientos MD PGY-3, Internal Medicine [facility] Cosigned by Markus Couch MD PhD at [...] all documentation provided on this date by Luisana Nugent, HERNESTO. 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 HHC: none Transportation: spouse, Blanquita Browne Problem: ensure safe discharge when medically stable Plan/Goal Includes: CM to follow for needs Insurance verified as: [facility] CHoice Admit Source: non health care facility [...] on the above findings, I consider Natividad rBowne to be an acceptable risk for : Procedure(s): XI NEPHRECTOMY - LAPAROSCOPIC ROBOTIC ASSISTED Source Note - Yazmin Hernandez NP - 06/06/2020 8:06 AM CDT Images from the original note were not included. [facility] for Preoperative Assessment and Planning Preoperative Evaluation Record Evaluation type/location: [facility] Planned procedure site: [facility] PVT OR (Pod 1) Date: 06/06/20 Anesthesia Evaluation Procedure(s): XI NEPHRECTOMY - LAPAROSCOPIC ROBOTIC ASSISTED Pre-Op Diagnosis Codes: * Autosomal dominant polycystic kidney disease [Q61.2] HISTORY HPI 60 y/o male w/ symptomatic polycystic kidney disease and for RIGHT laparoscopic robotic assisted nephrectomy Past Medical History Information obtained from: patient and chart. Neurological Pertinent negatives: seizures; CVA/stroke and TIA Cardiovascular + Hypertension + CT (2017 s/p catheterization - no CAD and presumed coronary spasm event in distribution of LAD- sx at time of CT were indigestion type pain for ~24 hours ) Number of CT's: 1. Date of last CT: 2017. + Current valvular disease - MR - mild; + Other arrhythmia (SB 50s - pt reports hx of bradycardia) - bradycardia. Pertinent negatives: CAD ; atrial fibrillation; pacemaker/ICD; PVD; DVT/PE and negative for CHF Comments: F/b Dr. Tee [facility] w/ presumed history of coronary spasm per cardiology documentation. Per cardiology note 02/2020 in [facility] The patient was seen by myself [...] CT imaging - LFTs unremarkable 03/2020 per [facility]) + History of anemia (ACD) Pertinent negatives: history of thrombocytopenia and history of Emperatriz positive Gastrointestinal + GERD - on daily therapy. Symptoms weekly but < daily. 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 His Integration Developer is Dr. Strickland) - CKD Pertinent negatives: [...] pain (last episode 2 weeks ago [place] - felt like spasm in epigastric [...] and he was evaluated at hospital in [facility] - felt like spasm in epigastric region. Patient had negative stress test 03/2020 in [facility]. Will retrieve records for chart completion. The patient is on aspirin therapy and has a history of CT 2018 presumed 2/2 coronary artery spasm per [...] verbalized understanding. Please call the CPAP attending ([phone]) with any questions. Obstructive sleep apnea (SHAHEEN) [...] scheduled to be performed on 06/10/2020 at [facility]. . Blood bank needs for [...] There are no prior chest radiographs at [facility] for comparison. The heart and mediastinal [...] 720 hours. STOP-Bang Total Score: 3 Luis Enrique index score: 100 documented in this encounter Procedure Notes * Jhony Canales MD - 06/14/2020 8:33 AM CDT Images from the original note were not included. Procedures PROCEDURE NOTE: Name: Natividad Browne : 1960 Date of Transversus Abdominis Plane Block: 06/14/2020 Attending: Jhony Canales MD Well Logger: Tristan Mccarthy MD Procedure: Transversus Abdominus Plane [...] Vascular Surgery Consultation Patient Name/MRN: Natividad Browne [id number] Treatment Team: Vascular Surgery- Reason for Consult: ESRD nearing dialysis; fistula planning Attending: Valencia Khan MD Today's Date: 06/17/2020 Admitting Service: Surgery Admitting location: [id number] Admit Date: 06/14/2020 Code Status: Full Code [...] tablet 1,000 mg 1,000 mg oral Q6H [facility] Junior Mas MD 1,000 mg at 06/17/20 0532 ??? amLODIPine (NORVASC) tablet 5 mg 5 mg oral QA Junior Mas MD 5 mg at 06/17/20 0840 ??? bisacodyL (DULCOLAX) suppository 10 mg 10 mg rectal BID PRN Belkys Mccormick MD ??? cyclobenzaprine (FLEXERIL) tablet 5 mg 5 mg oral TID PRN Belkys Mccormick MD 5 mg at 06/17/20 0405 ??? heparin 5,000 unit/mL injection 5,000 Units 5,000 Units subcutaneous Q8H [facility] Junior Mas MD 5,000 Units at 06/17/20 0531 ??? lactulose 0.67 gram/mL oral solution 10 g 10 g oral BID Belkys Mccormick MD 10 g at 06/17/200840 ??? metoprolol tartrate (LOPRESSOR) immediate release tablet [...] BID Belkys Mccormick MD 17 g at 06/17/200840 ??? senna (SENOKOT) tablet 1 tablet 1 [...] Gerardo Shah MD Primary Care Physician number: [phone] Review of Systems: Systems reviewed and negative [...] Upper Extremity Bilateral Result Date: 06/16/2020 Narrative: [facility] - Department of Vascular Surgery, Vascular Laboratory [address] [place] [address] Upper Extremity Vein Mapping Report Patient Name: NATIVIDAD BROWNE J : 1960 (60y 3m) Study Date: 06/16/2020 1:27:59 PM Gender: M Security Sme: AYAKALocation: [id number] Ref.Provider: VALENCIA KHAN Quality: Adequate Order Provider: VALENCIA KHAN Procedures: Mapping Report: Bilateral Upper Extremity Vein Mapping. Indications: chronic kidney disease stage 5 (failure) GFR<15 mL/min. Measurements: Right - Left - Measurement Value Units Measurement Value Units Rt Axillary Vein Diameter 0.91 cm Lt Axillary Vein Diameter 0.71 cm Rt Prox BrachialVein D. 1 - cm Lt Prox Brachial Vein D. 1 - cm Rt Prox Brachial Vein D. 2 - cm Lt Prox Brachial Vein D. 2 - cm Rt Mid Brachial Vein D. 1 - cm Lt Mid Brachial Vein D. 1 - cm Rt Mid Brachial Vein D. 2 - cm Lt Mid Brachial Vein D. 2 - cm Rt Dist Brachial Vein D. 1 - cm Lt Dist Brachial Vein D. 1 - cm Rt Dist Brachial Vein D. 2 - cm Lt Dist Brachial Vein D. 2 - cm Rt Cephalic Vein Zone 1 0.34 cm Lt Cephalic Vein Zone 1 0.51 cm Rt Cephalic [...] SVT) cm Rt Cephalic Vein Zone 6 0.24/branch reconnects to main cephalic cm Lt Cephalic Vein Zone 6 0.34 cm Rt Cephalic Vein Zone 7 0.22 cm Lt C ephalic Vein Zone 7 0.17 cm Rt Basilic Vein Zone 1 0.22 cm Lt Basilic Vein Zone 1 0.37 cm Rt Basilic Vein Zone 2 0.21 cm Lt Basilic Vein Zone 2 0.36 cm Rt Basilic Vein Zone 3 0.25 cm Lt Basilic Vein Zone 3 0.32 cm Rt Basilic Vein Zone 4 0.27 cm Lt Basilic Vein Zone 4 0.16 cm Rt Basilic Vein Zone5 0.28 cm Lt Basilic Vein Zone 5 0.13 cm Rt Basilic Vein Zone 6 0.23 cm Lt Basilic Vein Zone 6 0.10cm Rt Basilic Vein Zone 7 0.15 cm Lt Basilic Vein Zone 7 unable to locate cm Measurement Value Units Measurement Value Units Right - Left - - Findings: Performing Security Sme: Essie Sevilla RVT. Bilateral: Venous Doppler signals [...] measurements noted above. Isolated superficial vein thrombus notedin the cephalic vein at the mid forearm. The radial and ulnar artery/vein bifurcation appears to beat the proximal arm level Radial V Prox [...] = proximal arm; Zone 2 = mid arm;Zone 3 = distal arm; Zone 4 = ante-cubital; Zone 5 = proximal forearm; Zone 6 = mid forearm; Zone 7= distal forearm. All measurements are obtained with a tourniquet placed on the upper arm unless itis contraindicated and noted in the report. The signing physician has reviewed all images pertaining to this test. These images and this report will be retained in the patient chart by the Vascular Laboratory for the legally required time period. This chart constitutes the legal record of any testing performed. Electronically Signed By: Federico Bain MD [facility] 2020-06-16 15:04:35 CDT CC: CC: Assessment /Plan Patient is a 60 y.o. 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 - Vein mapping reviewed - Will discuss with patient and primary wicker worker regarding desire and timing for fistula creation - Will tentatively plan for outpatient follow-up with Dr. Aponte pending discussion with patient andprimary wicker worker. - Vascular surgery will continue to follow. Please call [phone] with vascular consult questions 20/05. Discussed with Dr. Aponte @11:00 Cosigned by Chucho Aponte MD at 06/18/2020 2:12 PM CDT Associated attestation - Chucho Aponte MD - 06/18/2020 2:12 PM CDT I have seen and examined the patient on 06/17/2020. I agree with the findings and plan of care as documented in the fellow/resident/US CUSTOMS AND BORDER OFFICER's note. * Gatito Barrientos MD - 06/15/2020 10:57 AM CDTAssociated Order(s): IP CONSULT TO NEPHROLOGY Nephrology Consult Reason for Consult: PCKD, s/p right nephrectomy Subjective HPI: Mr. Browne is a 60yo M with PMHx of ADPKD, CT ([facility] 2017 with no obstruction, thought to [...] had chest pain, and he had a [facility] for potential CT. During this hospitalization, he was told his GFR was ~50%. He then presented to [facility] in Oct 2018 for chest [...] He was referred to transplant nephrology at [facility] who he saw 04/14/20. His Cr was [...] a 60yo M with PMHx of ADPKD, CT ([facility] 2018 with no obstruction, thought to [...] Vit D Renal??Consult 2 Service Contact (phone): [phone] After hours and weekends: please page [phone] Gatito Barrientos MD PGY-3, Internal Medicine [facility] Cosigned by Markus Couch MD PhD at [...] service regarding patient' BMP not resulted yet. customer operations representative cannot find the lab, is continuing to [...] diet. He will follow up with his wicker worker outpatient and may need dialysis. He has ambulated in the villatoro and was cleared by physical therapy. He and his understand his discharge instructions and follow up. * Plan of Care - Keesha Mcdonald PT - 06/18/2020 1:58 PM CDT Problem: [...] of bowel funcition, monitor creatinine, consult to [facility]. surgery, discharge planning Summary: patient's [...] Monitor * Plan of Care - Ivory Wagoner RN - 06/14/2020 7:38 PM CDT Goals: [...] incision with lap sites x 3 is GERBER -- wound glue is c/d/intact. No drainage [...] nights, weekends or holidays, please call the pest control operator and ask for the urology resident immigration paralegal. Belkys Mccormick MD [phone] 06/14/2020 Cosigned by Valencia Khan MD at 06/14/2020 5:31 PM CDT * Op Note - Valencia Khan MD - 06/14/2020 8:19 AM CDT OPERATIVE REPORT FACILITY ID: [facility] SURGEON Pravin Khan M.D. TELEVISION SCRIPT WRITER MD Abraham Mccoy DO Cheryl Guillermo ANESTHESIA General. PREOPERATIVE DIAGNOSIS Autosomal Dominant Polycystic [...] procedure. * Perioperative Nursing Note - Stephanie Sinclair RN - 06/14/2020 7:27 AM CDT Late order from [employer] for scop patch. Applied by SILVINO. documented in this encounter Plan of Treatment Scheduled Procedures Name Priority Associated Diagnoses Date/Ti nj TRANSPLANT KIDNEY ESRD (end stage renal disease) ([facility]) documented as of this encounter Procedures Procedure [...] CDT Autosomal dominant polycystic kidney disease POCT [id number]-[id number],WB - ISTAT Routine 06/14/2020 6:13 AM CDT documented in this encounter Results * Potassium, whole blood (06/17/2020 11:38 PM CDT) Potassium, bld 4.7 3.3 - 4.9 mmol/L [facility] Blood specimen (specimen) 06/17/2020 11:38 PM CDT 06/17/2020 11:48 PM CDT Valencia Khan MD LAB BLOOD ORDERABLES Frances l Result Performing Organization Address [facility] [place] [address] * Phosphorus (06/17/2020 10:43 PM CDT) Pathologist [facility] Phosphorus, pl 4.4 2.3 - 4.5 mg/dL [facility] Blood specimen (specimen) 06/17/2020 10:43 PM CDT 06/17/2020 10:56 PM CDT Valencia Khan MD LAB BLOOD ORDERABLES Frances l Result Performing Organization Address [facility] [place] [address] * Magnesium (06/17/2020 10:43 PM CDT) [facility] Magnesium 2.2 1.4 - 2.5 mg/dL [facility] Blood specimen (specimen) 06/17/2020 10:43 PM CDT 06/17/2020 10:56 PM CDT Valencia Khan MD LAB BLOOD ORDERABLES Frances l Result Performing Organization Address [facility] [place] [address] * (ABNORMAL) CBC without differential (06/17/2020 10:43 PM CDT) [facility] WBC 8.0 3.8 - 9.9 K/cumm [facility] Hgb 11.3(L) 13.0 - 17.5 g/dL [facility] Hct 36.1(L) 38.9 - 50.3 % [facility] Plt 258 150 - 400 K/cumm [facility] MPV 9.9 9.1 - 12.3 fL [facility] RBC 3.71(L) 4.30 - 5.80 M/cumm [facility] MCV 97.3(H) 81.3 - 96.4 fL [facility] MCH 30.5 27.1 - 33.3 pg [facility] MCHC 31.3(L) 32.3 - 35.7 g/dL [facility] RDW CV 13.3 11.1 - 14.9 % [facility] RDW SD 47.3 35.7 - 48.1 fL [facility] NRBC abs 0.00 0.00 - 0.01 K/cumm [facility] Blood specimen (specimen) 06/17/2020 10:43 PM CDT 06/17/2020 10:56 PM CDT Valencia Khan MD LAB BLOOD ORDERABLES Frances arndt Result [facility] Department [place] [address] * (ABNORMAL) Basic metabolic panel (06/17/2020 10:43 PM CDT) Sodium 140 135 - 145 mmol/L [facility] Potassium, pl 4.7 3.3 - 4.9 mmol/L [facility] Chloride 106 97 - 110 mmol/L [facility] CO2 21(L) 22 - 32 mmol/L [facility] Anion gap 13 2 - 15 mmol/L [facility] BUN 71(H) 8 - 25 mg/dL [facility] Creatinine 5.49(H) 0.80 - 1.30 mg/dL [facility] Glucose 104 70 - 199 mg/dL [facility] Comment: Interpretive Data Fasting glucose >/= 126 [...] 2017. Calcium 8.8 8.5 - 10.3 mg/dL [facility] [place] Blood specimen (specimen) 06/17/2020 10:43 PM CDT 06/17/2020 10:56 PM CDT Valencia Khan MD LAB BLOOD ORDERABLES Frances arndt Result [facility] Department [place] [address] * (ABNORMAL) Basic metabolic panel (06/16/2020 11:26 PM CDT) Sodium 136 135 - 145 mmol/L [facility] Potassium, pl 5.1(H) 3.3 - 4.9 mmol/L [facility] Chloride 103 97 - 110 mmol/L [facility] CO2 21(L) 22 - 32 mmol/L [facility] Anion gap 12 2 - 15 mmol/L [facility] BUN 65(H) 8 - 25 mg/dL [facility] Creatinine 5.38(H) 0.80 - 1.30 mg/dL [facility] Glucose 110 70 - 199 mg/dL [facility] Comment: Interpretive Data Fasting glucose >/= 126 [...] 2017. Calcium 9.0 8.5 - 10.3 mg/dL [facility] Blood specimen (specimen) 06/16/2020 11:26 PM CDT 06/16/2020 11:58 PM CDT Valencia Khan MD LAB BLOOD ORDERABLES Frances l Result Performing Organization Address City/[facility]/ZIP Co de Phone Number [facility] Department [place] [address] * (ABNORMAL) CBC without differential (06/16/2020 11:26 PM CDT) Pathologist [facility] WBC 11.8(H) 3.8 - 9.9 K/cumm [facility] Hgb 11.7(L) 13.0 - 17.5 g/dL [facility] Hct 35.6(L) 38.9 - 50.3 % [facility] Plt 253 150 - 400 K/cumm [facility] MPV 10.4 9.1 - 12.3 fL [facility] RBC 3.69(L) 4.30 - 5.80 M/cumm [facility] MCV 96.5(H) 81.3 - 96.4 fL [facility] MCH 31.7 27.1 - 33.3 pg [facility] MCHC 32.9 32.3 - 35.7 g/dL [facility] RDW CV 13.2 11.1 - 14.9 % [facility] RDW SD 46.9 35.7 - 48.1 fL [facility] NRBC abs 0.00 0.00 - 0.01 K/cumm [facility] Blood specimen (specimen) 06/16/2020 11:26 PM CDT 06/16/2020 11:59 PM CDT Valencia Khan MD LAB BLOOD ORDERABLES Frances l Result [facility] Department [place] [address] * US Vein Mapping Duplex Upper Extremity Bilateral (06/16/2020 4:18 PM CDT) Anatomical Region Laterality Modality Vascular Bilateral Ultrasound 06/16/2020 1:27 PM CDT Narrative 06/16/2020 3:04 PM CDT [employer] - Department of Vascular Surgery, Vascular Laboratory [address] [place] [address] Upper Extremity Vein Mapping Report Patient Name: NATIVIDAD BROWNE J : 1960 (60y 3m) Study Date: 06/16/2020 1:27:59 PM Gender: M Security Sme: MKLocation: [id number] Ref.Provider: VALENCIA KHAN Quality: Adequate Order Provider: [...] ? Left - ? - Findings: Performing Security Sme: Essie Sevilla, RVT. Bilateral: Venous Doppler signals in the [...] MD FACS 2020-06-16 15:04:35 CDT CC: CC: Procedure Note Federico Bain MD - 06/16/2020 [employer] [facility] - Department of Vascular Surgery,Vascular Laboratory [address] [place] [address] Upper Extremity Vein Mapping Report Patient Name: NATIVIDAD BROWNE JPatient ID: [id number] : 1960 (60y 3m)Study Date: 06/16/2020 1:27:59 PM Gender: MAccession #: [id number] Security Sme: Rubinacation: [id number] Ref.Provider: Ara KHANality: Adequate Order Provider: Connor KHAN #: [id number] Procedures: Mapping Report: Bilateral Upper Extremity Vein [...] ValueUnits Right -Left - - Findings: Performing Security Sme: Essie Sevilla RVT. Bilateral: Venous Doppler signals [...] performed. Electronically Signed By: Federico Bain MD [facility] 2020-06-16 15:04:35 CDT CC: CC: Valencia Khan MD IM US PROCEDURES Final R esult * (ABNORMAL) Vitamin D 25 hydroxy (06/15/2020 10:50 PM CDT) [facility] Vitamin D 25-OH 25(L) 30 - 80 ng/mL [facility] Blood specimen (specimen) 06/15/2020 10:50 PM CDT 06/15/2020 11:49 PM CDT Valencia Khan MD LAB BLOOD ORDERABLES Frances l Result [facility] [place] [place] [address] * Magnesium (06/15/2020 10:50 PM CDT) [facility] Magnesium 1.9 1.4 - 2.5 mg/dL [facility] Blood specimen (specimen) 06/15/2020 10:50 PM CDT 06/15/2020 11:49 PM CDT Valencia Khan MD LAB BLOOD ORDERABLES Frances l Result [facility] [place] [address] * (ABNORMAL) Phosphorus (06/15/2020 10:50 PM CDT) Pathologist [facility] Phosphorus, pl 4.6(H) 2.3 - 4.5 mg/dL [facility] Blood specimen (specimen) 06/15/2020 10:50 PM CDT 06/15/2020 11:49 PM CDT us Valencia Khan MD LAB BLOOD ORDERABLES Frances l Result Performing Organization Address [facility] de Phone Number [facility] [place] [place] [address] * (ABNORMAL) CBC without differential (06/15/2020 10:50 PM CDT) WBC 10.0(H) 3.8 - 9.9 K/cumm [facility] Hgb 10.6(L) 13.0 - 17.5 g/dL [facility] Hct 34.0(L) 38.9 - 50.3 % [facility] Plt 234 150 - 400 K/cumm [facility] MPV 10.2 9.1 - 12.3 fL [facility] RBC 3.40(L) 4.30 - 5.80 M/cumm [facility] MCV 100.0(H) 81.3 - 96.4 fL [facility] MCH 31.2 27.1 - 33.3 pg [facility] MCHC 31.2(L) 32.3 - 35.7 g/dL [facility] RDW CV 13.5 11.1 - 14.9 % [facility] RDW SD 50.5(H) 35.7 - 48.1 fL [facility] NRBC abs 0.00 0.00 - 0.01 K/cumm [facility] Blood specimen (specimen) 06/15/2020 10:50 PM CDT 06/15/2020 11:50 PM CDT us Miranda Mayer US [employer]ORDER OFFICER LAB BLOOD ORDERABLES Final Res ult Performing Organization Address [facility]/ZIP Co de Phone Number [facility] [place] [address] * (ABNORMAL) Basic metabolic panel (06/15/2020 10:50 PM CDT) Pathologist [facility] Sodium 136 135 - 145 mmol/L [facility] Potassium, pl 4.9 3.3 - 4.9 mmol/L [facility] Chloride 100 97 - 110 mmol/L [facility] CO2 22 22 - 32 mmol/L [facility] Anion gap 14 2 - 15 mmol/L [facility] BUN 57(H) 8 - 25 mg/dL [facility] Creatinine 4.89(H) 0.80 - 1.30 mg/dL [facility] Glucose 96 70 - 199 mg/dL [facility] Comment: Interpretive Data Fasting glucose >/= 126 [...] 2017. Calcium 8.2(L) 8.5 - 10.3 mg/dL [facility] Blood specimen (specimen) 06/15/2020 10:50 PM CDT 06/15/2020 11:49 PM CDT us Miranda Mayer NP LAB BLOOD ORDERABLES Final Res ult [facility] [place] [address] * (ABNORMAL) CBC without differential (06/15/2020 4:14 AM CDT) [facility] WBC 13.2(H) 3.8 - 9.9 K/cumm [facility] Hgb 10.5(L) 13.0 - 17.5 g/dL [facility] Hct 33.4(L) 38.9 - 50.3 % [facility] Plt 244 150 - 400 K/cumm [facility] MPV 10.3 9.1 - 12.3 fL [facility] RBC 3.39(L) 4.30 - 5.80 M/cumm [facility] MCV 98.5(H) 81.3 - 96.4 fL [facility] MCH 31.0 27.1 - 33.3 pg [facility] MCHC 31.4(L) 32.3 - 35.7 g/dL [facility] RDW CV 13.5 11.1 - 14.9 % [facility] RDW SD 49.2(H) 35.7 - 48.1 fL [facility] NRBC abs 0.00 0.00 - 0.01 K/cumm [facility] Blood specimen (specimen) 06/15/2020 4:14 AM CDT 06/15/2020 5:07 AM CDT Valencia Khan MD LAB BLOOD ORDERABLES Frances l Result [facility] Department [place] [address] * (ABNORMAL) Basic metabolic panel (06/15/2020 4:14 AM CDT) Sodium 139 135 - 145 mmol/L [facility] Potassium, pl 4.9 3.3 - 4.9 mmol/L [facility] Chloride 106 97 - 110 mmol/L [facility] CO2 21(L) 22 - 32 mmol/L [facility] Anion gap 12 2 - 15 mmol/L [facility] BUN 56(H) 8 - 25 mg/dL [facility] Creatinine 4.13(H) 0.80 - 1.30 mg/dL [facility] Glucose 149 70 - 199 mg/dL [facility] Comment: Interpretive Data Fasting glucose >/= 126 [...] 2017. Calcium 7.9(L) 8.5 - 10.3 mg/dL [facility] Blood specimen (specimen) 06/15/2020 4:14 AM CDT 06/15/2020 5:06 AM CDT us Valencia Khan MD LAB BLOOD ORDERABLES Frances arndt Result [facility] Department [place] [address] * (ABNORMAL) POC Blood Gas and Chemistries, Arterial - (06/14/2020 11:39 AM CDT) pH, Art POC 7.26(L) 7.35 - 7.45 [facility] pCO2, Art POC 51(H) 35 - 45 mmHg [facility] pO2, Art POC 280(H) 83 - 108 mmHg [facility] Na, POC 142 135 - 145 mmol/L [facility] K POC 5.1(H) 3.3 - 4.9 mmol/L [facility] Cl, POC 108 97 - 110 mmol/L [facility] Ionized Ca, POC 4.87 4.50 - 5.10 mg/dL [facility] Glucose, POC 136 70 - 199 mg/dL [facility] Lactate, POC 0.8 0.7 - 2.2 mmol/L [facility] SO2 (yesica) arterial 98(H) 90 - 95 % [facility] Base excess, POC -4.6 mmol/L [facility] HCO3, Art POC 23 20 - 30 mmol/L [facility] Hct, POC 37.0(L) 41.4 - 51.6 % [facility] O2 Sat, Art POC (Calc) 100 % [facility] Total Hb, POC 12.4(L) 13.8 - 17.2 g/dL [facility] Blood specimen (specimen) 06/14/2020 11:39 AM CDT 06/14/2020 11:39 AM CDT us Valencia Khan MD LAB POCT ORDERABLES - DEV ICE Final Result [facility] Department [place] [address] * Surgical pathology (06/14/2020 9:37 AM CDT) Tissue (Kidney, total nephrectomy) 06/14/2020 9:37 AM CDT Narrative PATHOLOGY [facility] - 06/17/2020 5:01 PM CDT EPIC results best viewed via link to PDF [facility] [place] [address] SURGICAL PATHOLOGY REPORT FINAL Patient Name: ?? NATIVIDAD BROWNE Yamilet Gender: ??M : ??1960 (Age: 60) Address: ??[address] [place] [address] ??[address] [facility] #: ??[id number] Taken:06/14/2020 Received:06/14/2020 Reported: 06/17/2020 Patient Type: [facility] Inpatient ?? Service: Surgery Location: [place] [address] Physician(s): ??Valencia Khan M.D. Gerardo Shah M.D. Abraham Luciano M.D. Junior Mas M.D. Diagnosis: Kidney, right, radical nephrectomy: - [...] A2 to A3 - colon-yellow, solid component, member services representative; A4 to A5 - cystic component including residual renal pelvis and renal sinus; A6 to A9 - additional cystic component including residual kidney parenchyma in A6 and A8. ??Jar 4. and/06/15/2020 09:47 PA(s): Agustin Morelos MS, PA ([facility]) ? CANCER CASE SUMMARY FOR INVASIVE [...] determined by the Surgical Pathology Department at [facility] as part of an ongoing quality lab technician program and in compliance with federally mandated [...] determined by the Surgical Pathology Department of [facility]. ??It has not been cleared or approved by the U. S. Food and Drug Administration. IMAGES AND SCANNED DOCUMENTS, IF INCLUDED, ONLY VIEWABLE IN PDF VERSION OF REPORT Valencia Khan MD LAB PATHOLOGY ORDERABLES Final Result PATHOLOGY [facility] 3rd Floor [place], [place] [phone] * POCT [id number], WB - ISTAT (06/14/2020 6:13 AM CDT) Pathologist [facility] K POC 4.6 3.3 - 4.9 mmol/L [facility] Blood specimen (specimen) 06/14/2020 6:13 AM CDT 06/14/2020 6:13 AM CDT Valencia Khan MD LAB POCT ORDERABLES - DEV ICE Final Result [facility] Department [place] [address] documented in this encounter Visit Diagnoses Diagnosis Autosomal dominant polycystic kidney disease- Primary Congenital polycystic kidney, autosomal dominant Autosomal dominant polycystic kidney disease Congenital polycystic kidney, autosomal dominant Acute postoperative abdominal pain Autosomal dominant polycystic kidney disease Congenital polycystic kidney, autosomal dominant documented in this encounter Admitting Diagnoses Diagnosis [...] PRN, constipation, Starting on Sat06/16/20 at 1816 cephalexin (KEFLEX) capsule 250 mg 250 mg, oral, 2 times daily, First dose on Sat06/18/20 at 1000, Indications: Skin/Soft Tissue InfectionIndications:Skin/Soft Tissue Infection Given 06/18/2020 11:40 AM CDT 250 mg cyclobenzaprine (FLEXERIL) tablet 5 mg 5 mg, oral, 3 times daily PRN, muscle spasms, Starting on Sat06/16/20 at 0828 Given 06/17/2020 4:05 AM CDT 5 mg Given 06/16/2020 7:56 PM CDT 5 mg Given 06/16/2020 12:29 PM CDT 5 mg heparin 5,000 unit/mL injection 5,000 Units 5,000 Units, subcutaneous, Every 8 hours scheduled, First dose on Sat06/14/20 at 1745, Indications: Deep Vein Thrombosis PreventionIndications:Deep Vein Thrombosis Prevention Given 06/18/2020 5:27 PM CDT 5,000 Units Right Lower Abdomen Given 06/18/2020 5:11 AM CDT 5,000 Units R ight Lower Abdomen Given 06/17/2020 10:45 PM CDT 5,000 Units Left Lower Abdomen lactulose 0.67 gram/mL oral solution 10 g 10 g, oral, 2 times daily, First dose (after last modification) on Sat06/16/20 at 0930, Indications: constipationIndications:constipation Given 06/18/2020 10:02 AM CDT 10 g Given 06/17/2020 8:20 PM CDT 10 g Given 06/17/2020 8:40 AM CDT 10 g metoprolol tartrate (LOPRESSOR) immediate release tablet 25 mg 25 mg, oral, 2 times daily, First dose on Sat06/14/20 at 2100, Indications: coronary artery disease, hypertensionIndications:coronary artery disease,hypertension Given 06/18/2020 10:03 AM CDT 25 mg Given 06/17/2020 8:19 PM CDT 25 mg Given 06/17/2020 8:40 AM CDT 25 mg ondansetron (ZOFRAN) injection [...] Given 06/17/2020 11:38 AM CDT [address] (PROTONIX) extended release tablet [...] Given 06/17/2020 8:40 AM CDT 17 g senna (SENOKOT) tablet 1 tablet 1 tablet, oral, 2 times daily PRN, constipation, Starting on Sat06/14/20 at 1707, Indications: constipationIndications:constipation Given 06/16/2020 9:18 AM CDT 1 table t senna-docusate (PERICOLACE) 8.6-50 mg per tablet 1 tablet 1 tablet, oral, 2 times daily, First dose on Sat06/15/20 at 2100 Given 06/18/2020 10:02 AM CDT 1 tablet Given 06/17/2020 8:40 AM CDT 1 tablet Given 06/16/2020 9:28 AM CDT 1 tablet sodium chloride 0.9 % irrigation As needed, Starting on Sat06/14/20 at 0745, Intra-Op Given 06/14/2020 7:45 AM CDT 1,000 mL Surgical Site sodium chloride 0.9 % irrigation As needed, Starting on Sat06/14/20 at 0746, Intra-Op Given 06/14/2020 7:46 AM CDT 1,000 mL Surgical Site sodium chloride 0.9% flush 0.5-20 mL 0.5-20 mL, intra-catheter, Every 8 hours scheduled, First dose on Sat06/14/20 at 1745, Flush volume based on line type and size. , Indications: FlushingIndications:Flushing Given 06/18/2020 6:36 AM CDT 10 mL Given 06/17/2020 8:19 PM CDT 10 mL Given 06/17/2020 3:33 PM CDT 10 mL tamsulosin (FLOMAX) extended release capsule 0.4 mg [...] Patient/family refused) 0532 (Given - Provider: Destiny aMbry RN)1140 (Given - Provider: María Ward RN)1719 (Given - Provider: María Ward RN) 0000 (Not Given - Provider: Catalina Jade RN - Reason: Patient/family refused)0624 (Not Given - Provider: Catalina aJde RN - Reason: Patient/family refused)1140 (Given - [...] mg (COMPLETED) 10 mg, rectal, Once, On 06/16/20 at 1315, For 1 dose 1453 (Given - Provider: Stacey Hayward, LEYDI) cephalexin (KEFLEX) capsule 250 mg 250 mg, oral, 2 times daily, First dose on 06/18/20 at 1000, Indications: Skin/Soft Tissue Infection 1140 (Given - Provider: María Ward, LEYDI) docusate with cottonseed oil enema (COMPLETED) rectal, Once, On Brenna 06/16/20 at 1900, For 1 dose 2045 (Given - Provider: Destiny Mabry, LEYDI) heparin 5,000 unit/mL injection 5,000 Units 5,000 [...] daily, First dose (after last modification) on Brenna 06/16/20 at 0930, Indications: constipation 0917 (Given - Provider: Stacey Hayward, LEYDI)1810 (Given - Provider: Stacey Hayward RN - Comment: given early per TO)1957 (Not Given - Provider: Destiny Mabry RN - Reason: Patient/family refused) 0840 (Given - Provider: María Ward, LEYDI)2020 (Given - Provider: Destiny Mabry RN) 1002 (Given - Provider: María Ward RN) metoprolol tartrate (LOPRESSOR) immediate release tablet 25 mg 25 mg, oral, 2 times daily, First dose on Sat06/14/20 at 2100, Indications: coronary artery disease, hypertension 917 (Given - Provider: Stacey Hayward RN)1953 (Given [...] (after last modification) on Sat06/16/20 at 2100 1958 (Not Given - Provider: Destiny Mabry RN [...] Hayward RN)2000 (Not Given - Provider: Destiny Mbary RN - Reason: Patient/family refused - Comment: too bloated) 0840 (Given - Provider: María Ward, LEYDI)2020 (Not Given - Provider: Destiny Mabry RN - Reason: Patient/family refused) 1002 (Given - Provider: María Ward RN) sodium chloride 0.9% flush 0.5-20 mL 0.5-20 mL, intra-catheter, Every 8 hours scheduled, First dose on Sat06/14/20 at 1745, Flush volume based on line type and size. , Indications: Flushing 0918 (Given - Provider: Stacey Hayward, LEYDI)1627 (Not Given - Provider: Stacey Hayward RN - Reason: Other)1953 (Given - Provider: Destiny Mabry RN)2148 (Not Given - Provider: Erica Melendez RN - Reason: IV Infusing) 0455 (Not Given - Provider: Erica Melendez RN - Reason: Other)1533 (Given - Provider: María Ward RN)2019 (Given [...] Ward, LEYDI) 1727 (Given - Provider: María Ward, LEYDI) PRN Medication Order 06/16/2020 06/17/2020 06/18/2020 bisacodyL (DULCOLAX) suppository 10 mg 10 mg, rectal, 2 times daily PRN, constipation, Starting on Sat06/16/20 at 1816 cyclobenzaprine (FLEXERIL) tablet 5 mg 5 mg, oral, 3 times daily PRN, muscle spasms, Starting on Sat06/16/20 at 0828 1229 (Given - Provider: Stacey Hayward, LEYDI)1956 (Given - Provider: Destiny Mabry, LEYDI) 0405 (Given - Provider: Destiny Mabry RN) [...] pain, Starting on Sat06/16/20 at 1830, Indications: Pain 1138 (Given - Provider: María Ward RN) 1140 (Given - Provider: María Ward, LEYDI)1740 (Given - Provider: María Ward RN) oxyCODONE (ROXICODONE) tablet 5 mg (CANCELED) 5 mg, oral, Every 4 hours PRN, 1st line for pain, Starting on Sat06/14/20 at 1707, Indications: Pain 0007 (Given - Provider: Ivory Martin RN)1458 (Given - Provider: Stacey Hayward, LEYDI) senna (SENOKOT) tablet 1 tablet 1 tablet, oral, 2 times daily PRN, constipation, Starting on Sat06/14/20 at 1707, Indications: constipation 0918 (Given - Provider: Stacey Hayward, LEYDI) sodium chloride 0.9% flush 0.5-20 mL 0.5-20 [...] Count Last Ordered Date First Ordered Date cephalexin (KEFLEX) capsule 250 mg 1 2019 tamsulosin (FLOMAX) extended release capsule 0.4 mg 1 06/17/2020 bisacodyL (DULCOLAX) suppository 10 mg 2 cyclobenzaprine (FLEXERIL) tablet 5 mg 1 docusate with cottonseed oil enema 1 2019 lactulose 0.67 gram/mL oral solution 10 g 3 06/16/2020 06/14/2020 oxyCODONE (ROXICODONE) tablet 10 mg 1 06/16 polyethylene glycol (MIRALAX) packet 17 g 2 06/16/2020 06/15/2020 lactulose 0.67 gram/mL oral solution 15 g 1 06/15/2020 senna-docusate (PERICOLACE) 8.6-50 mg per tablet 1 tablet 1 06/15/2020 acetaminophen (TYLENOL) tablet 1,000 mg 1 0 06/14/2020 amLODIPine (NORVASC) tablet 5 mg 1 06/14/20 20 bupivacaine (MARCAINE) 0.25 % (2.5 mg/mL) preservative free injection 1 06/14/2020 dextrose 5% and sodium chlor ele 0.45% infusion (premix) 1 06/14/2020 fentaNYL (SUBLIMAZE) preserv ative free injection 50 mcg 1 06/14/2020 heparin 5,000 unit/mL inject ion 5,000 Units 1 06/14/2020 HYDROmorphone (DILAUDID) injection 0.2 mg 2 06/14/2020 HYDROmorphone (DILAUDID) injection 0.4 mg 1 06/14/2020 lidocaine PF (XYLOCAINE) 10 mg/mL (1 %) preservative free injection 2-10 mg 1 06/14/2020 metoprolol tartrate (LOPRESS OR) immediate release tablet 25 mg 1 06/14/2020 ondansetron (ZOFRAN) injection 4 mg 2 06/14 ondansetron ODT (ZOFRAN-ODT) disintegrating tablet 4 mg 1 06/14/2020 oxyCODONE (ROXICODONE) tablet 5 mg [address] (PROTONIX) e xtended release tablet 40 mg 1 06/14/2020 prochlorperazine (COMPAZINE) injection 10 mg 1 06/14/2020 scopolamine patch 72 hour 1 patch 1 020 senna (SENOKOT) tablet 1 tablet 1 0 sodium chloride 0.9% flush 0.5-20 mL 3 05/28 sodium chloride 0.9% infusion 1 06/14/2020 Consult Count Last Ordered Date First Orde red Date IP CONSULT TO VASCULAR SURGERY 1 06/17/2020 IP CONSULT TO NEPHROLOGY 1 06/15/2020 documented in this encounter Care Teams Applications Specialist Relationship Specialty Start Date End Date Gerardo Shah MD PCP - General Internal Medicine 09/30/18 Suzette Strickland MD [address] [facility] [address] [place] [address] Referring Physician Nephrology 02/15/20 Rita Tapia, RN [address] [place] [address] Registered Nurse Rattling Machine Tender 02/15/20 documented as of this encounter
--- OUTSIDE RECORDS SUMMARY | 2024-10-16 06:41 | XMS_ITS | Encounter Summary ---
Author Organization [facility] Healthcare Address [address] [place] [address] Care Team Providers Care Event Representative Name Role Phone Gerardo Shah MD Primary Care Provider [phone] Suzette Strickalnd MD Unavailable [phone] Rita Tapia RN Unavailable [phone] Encounter Details Date Type Department Care Team (Late st Contact Info) Description 06/10/2020 8:00 AM CDT [address] [id number] Marc Khan MD [address] [facility] [id number] [place] [address] Pre-op testing Discharge Disposition: Discharge to home [...] on file Legal Sex Male 4:54 AM [employer]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/HCC) documented as of this encounter Procedures Procedure Name Priority Date/Time Associated Diagnosis Comments COVID-19 CORONAVIRUS RNA Routine 06/10/2020 8:00 AM CDT Pre-op testing documented in this encounter Results * COVID-19 Coronavirus RNA Nasopharyngeal (06/10/2020 8:00 AM CDT) COVID-19 RNA Not Detected KARTIK MARSHALL (JT) Comment: Interpretive Data Testing performed at [facility] Molecular Infectious Disease Laboratory. The 2019-Novel [...] revised on 2020. Testing performed by: [facility], [address] [facility] [place] [address] Nasopharyngeal 06/10/2020 8: 00 AM CDT 06/10/2020 [...] ORDERABLES Final Result [facility] MARSHALL (JT) [address] [facility] Department [place] [address] documented in this encounter Visit Diagnoses Diagnosis Pre-op testing Unspecified pre-operative examination documented in this encounter Care Teams Event Representative Relationship Specialty Start Date End Date Gerardo Shah MD PCP - General Internal Medicine 09/30/18 Suzette Strickland MD [address] [facility] [address] [place] [address] Referring Physician Nephrology 02/15/20 Rita Tapia, RN [address] [place] [address] Registered Nurse Travel Rn Or 02/15/20 documented as of this encounter
--- OUTSIDE RECORDS SUMMARY | 2024-10-16 06:41 | XMS_ITS | Encounter Summary ---
Author Organization [facility] Healthcare Address [address] [place] [address] Care Team Providers Care Salesperson Art Objects Name Role Phone Gerardo Shah MD Primary Care Provider [phone] Suzette tSrickland MD Unavailable [phone] Rita Tapia RN Unavailable [phone] Encounter Details Date Type Department Care Team (Late st Contact Info) Description 06/14/2020 7:25 AM CDT Anesthesia Event [facility] Operating Room [address] [place] [address] Pool Soto MD [address] [place] [address] Yazmin Hernandez NP [address] [facility] [phone] [place] [address] Anesthesia Record Procedure Summary Procedure Name Responsible Anesthesiologist Anesthesia Start Time Anesthesia Stop Time XI NEPHRECTOMY - LAPAROSCOPIC ROBOTIC ASSISTED (Right: Abdomen) Pool Adair MD 06/14/20 0725 06/14/20 1239 Events Date Time Event Comment 06/14/2020 0531 In Preop 0643 Time out - Regional 0645 An Block Induction The patie nt was reevaluated immediately before moderate or deep sedation and before anesthesia induction. 0650 Block Placed 0655 Block Placed 0710 0725 An Start 0732 In Room 0733 An Start Data 0753 An Induction The patient was reevaluated immediately before moderate or deep sedation use and before anesthesia induction. 0755 An Intubation 0816 Anesthesia Ready 0819 Incision Start 1218 An Extubation 1219 an stop data 1220 Out of Room 1239 Handoff to RN I completed my handoff [...] Patient disposition at the time of handoff: No value filed. 1239 An Stop Meds Name Total midazolam PF 2 mg lidocaine 1 % PF 60 mg fentaNYL 450 mcg propofol 150 mg phenylephrine 100 mcg/mL 100 mcg ondansetron PF (ZOFRAN) 2 mg/mL injectio n 4 mg glycopyrrolate 0.4 mg neostigmine injection 1 mg/mL 3 mg famotidine PF 20 mg ceFAZolin 4,000 mg cisatracurium 16 mg phenylephrine infusion (100 mcg/mL) 7.92 mg niCARdipine 300 mcg bupivacaine 0.5 % PF 50 mL dexmedetomidine vial 4 mcg/mL 60 mcg LR 400 mL LR 800 mL * Agents Name O2% N2O O2 Air Sevoflurane Inspired Sevoflurane * Blood No blood administrations on file. Lines, Drains, and Airways Type Details Placement Removal Peripheral IV Placement Date: 06/14/20; Change Due: 06/18/20; Catheter Size: 18 G; Orientation: Right; Location: Hand; Removal Date: 06/18/20; Removal Time: 0900; Removal Reason: Discharge 06/14/20 0000 by Ivory Wagoner RN 06/18/20 0900 by María Ward RN Peripheral IV Placement Date: 06/14/20; Placement Time: 0558; Catheter Size: 18 G; Orientation: Left; Location: Hand; Site Prep: Chlorhexidine; Technique: Anatomical landmarks; Insertion Attempts: 1; Patient Tolerance: Tolerated well; Removal Date: 06/18/20; Removal Time: 0900; Removal Reason: Discharge 06/14/20 0558 by Stephanie Sinclair RN 06/18/20 0900 by María Ward RN Urethral Catheter Placement Date: 06/14/20; Placement Time: 075; Inserted by: Yamilet Luciano MD; Type: Non-latex; Size: 16 Fr.; Balloon Size: 10 mL; Urine Returned: Yes; Removal Date: 06/16/20; Removal Time: 0700 (removed per MD, per pt); Removal Reason: Other (Comment) (removed per MD (per pt)) 06/14/20 0757 by Blanka Devlin RN 06/16/20 0700 by Stacey Hayward RN Arterial Line Placement Date: 06/14/20; Placemnt Time: 816 (created via procedure documentation); Size: 20 G; Orientation: Left; Location: Radial; Securement: Transparent dressing; Removal Date: 06/14/20; Removal Time: 15106/14/20 08 by Uzma Silva CRNA 06/14/20 1513 by Rosaura Chan RN ETT Placement Date: 06/14/20; Placement Time: 819 (created via procedure documentation); Mask Ventilation: 1; Technique: Direct laryngoscopy; Type: ETT - single; Single Lumen Tube Size: 8 mm; Cuffed: Yes; Laryngoscope: Tim; Blade Size: 4; Location: Oral; Grade View: Grade I; Insertion Attempts: 1; Placement Verification: Auscultation, Capnometry; Airway Comment: Done by airway rotater; Removal Date: 06/14/20; Removal Time: 1218 06/14/20 0820 by Uzma Silva CRNA 06/14/20 1218 by Uzma Silva CRNA RETIRED Surgical Site 06/14/20; 0939; Ri ght; Flank; with lap sites x 3; 09/29/24 (Retired LDA, Removed/Completed by [facility] with LDA Utility); 121 (Retired LDA, Removed/Completed by [facility] with LDA Utility) 06/14/20 0939 by Blanka [...] file Legal 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 Gender Identity Not on file Sexual Orientation Straight 05/03/2020 10 :36 AM CDT documented as of this encounter OR Notes * Anesthesia Postprocedure Evaluation - Pool Adair MD - 06/14/2020 2:26 PM CDT Patient: Abel Browne Procedure Summary Date: 06/14/20 Room / Location: [facility] OR POD 1 ROOM 327 / [facility] OR POD 1 Anesthesia Start: 724 Anesthesia Stop: 1238 Procedure: XI NEPHRECTOMY - LAPAROSCOPIC ROBOTIC ASSISTED (Right Abdomen) Diagnosis: Autosomal dominant polycystic kidney disease (Autosomal dominant polycystic kidney disease [Q61.2]) Surgeon: Marc Khan MD Responsible Provider: Pool Adair MD Anesthesia Type: general ASA Status: 3 Anesthesia Type: general Last vitals BP 115/69 Pulse 73 Temp 36.7 ??C (98.1 ??F) Resp 15 SpO2 94% Anesthesia Post Evaluation Patient location during evaluation: PACU Patient participation: complete - patient participated Level of consciousness: fully awake Pain score: 3 Pain management: adequate Airway patency: adequate Evidence of recall: no Anesthetic complications: no Cardiovascular status: hemodynamically stable and blood pressure returned to baseline Respiratory status: acceptable and nasal cannula Hydration status: acceptable Pt is: normothermic Nausea/Vomiting status: none Comments: Stable and comfortable. Can go to the floor. BP 115/69 Pulse 73 Temp 36.7 ??C (98.1 ??F) Resp 15 SpO2 96% * Anesthesia Procedure Notes - Uzma Silva CRNA - 06/14/2020 8:20 AM CDT Associated Order(s): Airway Airway Patient location: OR Urgency: elective Indications for airway management: anesthesia and airway protection Difficult airway: no Staff: Supervising provider: Pool Adair MD Placed by: Anesthesiologist: Pool Adair MD Emergent airway documentation: Risks and benefits discussed: yes Consent obtained: yes Consent given by: patient Airway prep: Preoxygenated: yes Patient position: sniffing MILS maintained throughout: yes Mask difficulty assessment: 1 - vent by mask Sedation level during airway: GA Final airway details: Final airway type: endotracheal airway Tube type: ETT ETT size: 8.0 mm Cuffed: yes Technique used for successful ETT placement: direct laryngoscopy Devices/Methods used in placement: intubating stylet Insertion site: oral Blade type: Tim Blade size: 4 Cormack-Lehane (direct): grade I - full view of glottis Cuff volume: 8 mL Cuff inflated with: air ETT to lips: 22 cm Placement verified by: auscultation and CO2 detection Airway secured with: silk tape Number of attempts: 1 Additional comments: Done by airway rotater * Anesthesia Procedure Notes - Uzma Silva CRNA - 06/14/2020 8:17 AM CDT Associated Order(s): Peripheral IV Catheter Peripheral IV Catheter Patient location: OR Staff: Placed by: HARBOUR MASTER: Uzma Silva CRNA Preprocedure prep: Prep solution: alcohol PPE: gloves and provider hat/mask PIV line: Laterality: right Site: wrist Catheter size: 18 g Technique: anatomical landmarks, direct visualization and palpatation Procedure details: good blood return and occlusive dressing applied Number of attempts: 1 Assessment: Events: patient tolerated procedure well with no complications * Anesthesia Procedure Notes - Uzma Silva CRNA - 06/14/2020 8:17 AM CDT Associated Order(s): Arterial Line Arterial Line Patient location: OR Indication: continuous blood pressure monitoring and blood sampling needed Staff: Supervising provider: Pool Adair MD Placed by: HARBOUR MASTER: Uzma Silva CRNA Procedure prep: Prep solution: chlorhexadine/alcohol Prep: provider hat/mask Arterial line: Catheter size: 20 gauge Catheter length: 1 and 3/4 inch Catheter type: wire-guided catheter Laterality: left Site: radial artery Line secured: Tegaderm Results: good waveform and good blood return Number of attempts: 1 Assessment: Events: patient tolerated procedure well with no complications * Anesthesia Preprocedure Evaluation - Pool Adair MD - 06/06/2020 8:06 AM CDT Images from the original note were not included. [facility] Planning Preoperative Evaluation Record Evaluation type/location: [facility] Planned procedure site: [facility] PVT OR (Pod 1) Date: 06/06/20 Anesthesia Evaluation Procedure(s): XI NEPHRECTOMY - LAPAROSCOPIC ROBOTIC ASSISTED Pre-Op Diagnosis Codes: * Autosomal dominant polycystic kidney disease [Q61.2] HISTORY HPI 60 y/o male w/ symptomatic polycystic kidney disease and for RIGHT laparoscopic robotic assisted nephrectomy Past Medical History Information obtained from: patient and chart. Neurological Pertinent negatives: seizures; CVA/stroke and TIA Cardiovascular + Hypertension + CO (CO 2018 s/p catheterization - no CAD and presumed coronary spasm event in distribution of LAD- sx at time of CO were indigestion type pain for ~24 hours ) Number of CO's: 1. Date of last CO: 2017. + Current valvular disease - MR [...] CT imaging - LFTs unremarkable 03/2020 per psychiatric) + History of anemia (ACD) Pertinent negatives: history of thrombocytopenia and history of Emperatriz positive Gastrointestinal + GERD - on daily therapy. Symptoms weekly but < daily. 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 His Customer Operations Representative is Dr. Strickland) - CKD Pertinent negatives: [...] discussed with: Raymundo Younger MD Additional comments: Abel Browne is a [...] he was evaluated at hospital in [facility] - felt like spasm in epigastric region. Patient had negative stress test 03/2020 in epic. Will retrieve records for chart completion. The patient is on aspirin therapy and has a history of CO 2018 presumed 2/2 coronary artery spasm per [...] verbalized understanding. Please call the CPAP attending ([phone]) with any questions. Obstructive sleep apnea (SHAHEEN) [...] scheduled to be performed on 06/10/2020 at [facility]. . Blood bank needs for day of [...] There are no prior chest radiographs at [facility] for comparison. The heart and [...] Score: 3 Luis Enrique index score: 100 DOS Physical Exam Medical history, medications, and allergies reviewed. Attestation: I endorse the findings of the anesthesia pre-evaluation assessment dated: 06/06/2020. Airway Exam: Mallampati: II Cervical ROM: FROM TM distance: >4 Jaw ROM: full Cardiovascular Exam: Rate: regular Rhythm: regular Pulmonary Exam: LCTA, bilat EENT Exam: trachea midline Dental Exam: Upper dentures and otherwise appears intact Skin Exam: Skin is warm and dry. Capillary refill is < 3 seconds. Turgor is normal. Abdominal Exam: Abdomen is soft. Bowel sounds are present. Current state: Patient's current state is cooperative. Anesthesia Plan ASA 3 My patient is approved for the Anesthesia Controlled Medication protocol when under care of a HARBOUR MASTER Planned anesthesia: General Team communication plan: oral ET tube Invasive Monitors Planned: Invasive monitors planned: arterial line. Induction: Induction: intravenous. Postoperative Plan: Postoperative administration opioids intended. No postoperative mechanical ventilation intended. Patient's planned disposition post procedure is Floor. Informed Consent: Discussed plan with HARBOUR MASTER. Anesthesia plan and risks discussed with patient. [...] ESRD (end stage renal disease) ([facility]) documented as of this encounter Procedures Procedure Name Priority Date/Time Associated Diagnosis Comments ME AN PROCEDURE PLACEHOLDER Routine 06/14/2020 8:20 AM CDT ME AN ELECTIVE ENDOTRACHEAL AIRWAY Routine 06/14/2020 8:20 AM CDT ME AN PROCEDURE PLACEHOLDER Routine 06/14/2020 8:17 AM CDT ME AN PROCEDURE PLACEHOLDER Routine 06/14/2020 8:17 AM CDT documented in this encounter Results * ME AN ELECTIVE ENDOTRACHEAL AIRWAY, ME AN PROCEDURE PLACEHOLDER (06/14/2020 8:20 AM CDT) Narrative Uzma Silva CRNA - 06/14/2020 8:20 AM CDT Uzma Silva CRNA ? 06/14/2020 ??8:20 AM Airway Patient location: OR Urgency: elective Indications for airway management: anesthesia and airway protection Difficult airway: no Staff: Supervising provider: Pool Adair MD Placed by: Anesthesiologist: Pool Adair MD Emergent airway documentation: Risks and benefits discussed: yes Consent obtained: yes Consent given by: patient Airway prep: Preoxygenated: yes Patient position: sniffing MILS maintained throughout: yes Mask difficulty assessment: 1 - vent by mask Sedation level during airway: GA Final airway details: Final airway type: endotracheal airway Tube type: ETT ETT size: 8.0 mm Cuffed: yes Technique used for successful ETT placement: direct laryngoscopy Devices/Methods used in placement: intubating stylet Insertion site: oral Blade type: Tim Blade size: 4 Cormack-Lehane (direct): grade I - full view of glottis Cuff volume: 8 mL Cuff inflated with: air ETT to lips: 22 cm Placement verified by: auscultation and CO2 detection Airway secured with: silk tape Number of attempts: 1 Additional comments: Done by airway rotater us Pool Adair MD ANESTHESIA ORDERAB LES Final Result * ME AN PROCEDURE PLACEHOLDER (06/14/2020 8:17 AM CDT) Uzma Nagy CRNA - 06/14/2020 8:17 AM CDT Uzma Silva CRNA ? 06/14/2020 ??8:18 AM Peripheral IV Catheter Patient location: OR Staff: Placed by: SILVINO: Uzma Silva CRNA Preprocedure prep: Prep solution: alcohol PPE: gloves and provider hat/mask PIV line: Laterality: right Site: wrist Catheter size: 18 g Technique: anatomical landmarks, direct visualization and palpatation Procedure details: good blood return and occlusive dressing applied Number of attempts: 1 Assessment: Events: patient tolerated procedure well with no complications us Pool Adair MD ANESTHESIA ORDERAB LES Final Result * ME AN PROCEDURE PLACEHOLDER (06/14/2020 8:17 AM CDT) Uzma Nagy CRNA - 06/14/2020 8:17 AM CDT Uzma Silva CRNA ? 06/14/2020 ??8:17 AM Arterial Line Patient location: OR Indication: continuous blood pressure monitoring and blood sampling needed Staff: Supervising provider: Pool Adair MD Placed by: SILVINO: Uzma Silva CRNA Procedure prep: Prep solution: chlorhexadine/alcohol Prep: provider hat/mask Arterial line: Catheter size: 20 gauge Catheter length: 1 and 3/4 inch Catheter type: wire-guided catheter Laterality: left Site: radial artery Line secured: Tegaderm Results: good waveform and good blood return Number of attempts: 1 Assessment: Events: patient tolerated procedure well with no complications Pool Adair MD ANESTHESIA ORDERAB LES Final Result documented in this encounter Visit Diagnoses Not on filedocumented in this encounter Administered Medications Inactive Administered Medications - up to 3 most recent administrations Medication Order MAR Action Action Date Dose Rate Site bupivacaine (MARCAINE) 0.5 % (5 mg/mL) preservative free injection As needed, Starting on Sat06/14/20 at 0650, Anesthesia Intra-op Given 06/14/2020 6:55 AM CDT 25 mL Given 06/14/2020 6:50 AM CDT 25 mL ceFAZolin (ANCEF) injection intravenous, Administer over 3 Minutes, As needed, Starting on Sat06/14/20 at 0744, Anesthesia Intra-op Given 06/14/2020 11:36 AM CDT 2,000 mg Given 06/14/2020 7:44 AM CDT 2,000 mg cisatracurium (NIMBEX) 2 mg/mL injection As needed, Starting on Sat06/14/20 at 0753, Anesthesia Intra-op Given 06/14/2020 9:07 AM CDT 4 mg Given 06/14/2020 7:53 AM CDT 12 mg dexMEDEtomidine (PRECEDEX) 80 mcg/20 mL (4 mcg/mL) in sodium chloride 0.9% (premix) As needed, Starting on Sat06/14/20 at 1230, Anesthesia Intra-op Given 06/14/2020 12:36 PM CDT 20 mcg Given 06/14/2020 12:33 PM CDT 10 mcg Given 06/14/2020 12:30 PM CDT 20 mcg famotidine (PEPCID) injection Administer over 2 Minutes, As needed, Starting on Sat06/14/20 at 0725, Anesthesia Intra-op Given 06/14/2020 7:25 AM CDT 20 mg fentaNYL (SUBLIMAZE) preservative free injection intravenous, As needed, Starting on Sat06/14/20 at 0739, Anesthesia Intra-op Given 06/14/2020 8:29 AM CDT 100 mcg Given 06/14/2020 8:22 AM CDT 100 mcg Given 06/14/2020 7:39 AM CDT 150 mcg glycopyrrolate (ROBINUL) injection intravenous, Administer over 1 Minutes, As needed, Starting on Sat06/14/20 at 1149, Anesthesia Intra-op Given 06/14/2020 11:49 AM CDT 0.4 mg Lactated Ringer's (LR) infusion Continuous PRN, Starting on Sat06/14/20 at 0725, Anesthesia Intra-op New Bag 06/14/2020 7:25 AM CDT Lactated Ringer's (LR) infusion Continuous PRN, Starting on Sat06/14/20 at 0800, Anesthesia Intra-op New Bag 06/14/2020 8:00 AM CDT lidocaine PF (XYLOCAINE) 10 mg/mL (1 %) preservative free injection As needed, Starting on Sat06/14/20 at 0737, Anesthesia Intra-op Given 06/14/2020 7:37 AM CDT 60 mg midazolam (VERSED) preservative free injection intravenous, Administer over 2 Minutes, As needed, Starting on Sat06/14/20 at 0725, Anesthesia Intra-op Given 06/14/2020 7:25 AM CDT 2 mg neostigmine (PROSTIGMIN) injection intravenous, Administer over 3 Minutes, As needed, Starting on Sat06/14/20 at 1149, Anesthesia Intra-op Given 06/14/2020 11:49 AM CDT 3 mg niCARdipine (CARDENE) injection intravenous, As needed, Starting on Sat06/14/20 at 0825, Anesthesia Intra-op, Indications: hypertensionIndications:hypertension Given 06/14/2020 8:29 AM CDT 100 mcg Given 06/14/2020 8:25 AM CDT 200 mcg ondansetron (ZOFRAN) injection intravenous, Administer over 2 Minutes, As needed, Starting on Sat06/14/20 at 0725, Anesthesia Intra-op Given 06/14/2020 7:25 AM CDT 4 mg phenylephrine (GABRIELLA-SYNEPHRINE) 0.5 mg/5 mL (100 mcg/mL) in sodium chloride 0.9% (premix) intravenous, As needed, Starting on Sat06/14/20 at 0921, Anesthesia Intra-op Given 06/14/2020 9:21 AM CDT 100 mcg phenylephrine (GABRIELLA-SYNEPHRINE) 5 mg/50 mL (100 mcg/mL) in sodium chloride 0.9% (premix) Continuous PRN, Starting on Sat06/14/20 at 0757, Anesthesia Intra-op Rate/Dose Change 06/14/2020 11:33 AM CDT 0.2 mcg/kg/min 11.81 mL/hr Restarted 06/14/2020 9:19 AM CDT 0.5 mcg/kg/min 29.5 mL/h r Rate/Dose Change 06/14/2020 8:21 AM CDT 0.3 mcg/kg/min 17. 71 mL/hr propofoL (DIPRIVAN) IV intravenous, As needed, Starting on Sat06/14/20 at 0753, Anesthesia Intra-op Given 06/14/2020 7:53 AM CDT 150 mg documented in this encounter Care Teams Salesperson Art Objects Relationship Specialty Start Date End Date Gerardo Shah MD PCP - General Internal Medicine 09/30/18 Suzette Strickland MD [address] [facility] [address] [place] [address] Referring Physician Nephrology 02/15/20 Rita Tapia, RN [address] [place] [address] Registered Nurse Stock Shaper 02/15/20 documented as of this encounter
--- OUTSIDE RECORDS SUMMARY | 2024-10-16 06:41 | XMS_ITS | Encounter Summary ---
Author Organization [facility] Address [address] [place] [address] Phone Care Team Providers Care Social Services Aide Name Role Phone Gerardo Shah MD Primary Care Provider [phone] Suzette Strickland MD Unavailable [phone] Rita Tapia RN Unavailable [phone] Reason for Referral * Pulmonology (Routine) - Closed Specialty Diagnoses / Procedures Referred By Kishore elkins Referred To Contact Diagnoses End stage renal disease ([facility]) ([facility]) Procedures Pulmonary Function Test -[place] [facility] PFT [facility]- [place]-8D; Standard, Walk for Distance; Spirometry, Spirometry w/bronchodilator, DLCO and Lung Volumes Alonso Pruitt MD [address] [place] [address] Phone: tel: fax: [facility] (All Locations) Referral ID Status Reason Start Date Expiration Date Visits Re quested Visits Authorized [id number] Closed 02/18/2020 08/29/2021 9 9 Reason for Visit * Pulmonology (Routine) - Closed Specialty Diagnoses / Procedures Referred By Contjohn t Referred To Contact Diagnoses End stage renal disease ([facility]) ([facility]) Procedures Pulmonary Function Test -[place] [facility] PFT [facility]- [facility]-8D; Standard, Walk for Distance; Spirometry, Spirometry w/bronchodilator, DLCO and Lung Volumes Alonso Pruitt MD [address] [facility] [address] [place] [address] Phone: tel: fax: [facility] (All Locations) Referral ID Status Reason Start Date Expiration Date Visits Re quested Visits Authorized [id number] Closed 02/18/2020 08/29/2021 9 9 Encounter Details Date Type Department Care Team (Latest Contact Info) Description 04/04/2020 9:52 AM CDT - 04/04/2020 12:35 PM CDT Hospital Encounter [facility] Pulmonary [address] [facility] [address] [place] [id number] End stage renal disease ([facility]) Discharge Disposition: Discharge to home or self care Social History Tobacco Use Types Packs/Day Years Used Date Smoking Tobacco: Former Cigarettes Q uit: 2018 Smokeless Tobacco: Never Alcohol Use Standard Drinks/Week Comments No 0 (1 standard drink = 0.6 oz pur e alcohol) Sex and Gender Information Value Date Recorded Sex Assigned at Not on file 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 Gender Identity Not on file Sexual [...] (end stage renal disease) ([facility]) documented as of this encounter Procedures Procedure Name Priority Date/Time Associated Diagnosis Comments PULMONARY FUNCTION TEST (PFT) Routine 04/04/2020 10:36 AM CDT End stage renal disease ([facility]) documented in this encounter Results * Pulmonary Function Test - (04/04/2020 10:36 AM CDT) FVC PRED 4.91 0.05 - 9.99 Liters [facility] FVC PRE 4.26 0 - 12 Liters [facility] FVC %PRE PRED 87 0 - 300 % [facility] FEV1 PRED 3.78 0.05 - 9.99 Liters [facility] FEV1 PRE 2.01 0 - 12 Liters [facility] FEV1 %PRE PRED 53 0 - 300 % [facility] FEV1/FVC PRED 77 1 - 99 % [facility] FEV1/FVC PRE 47 0 - 12 % [facility] EMW12-03% PRED 3.11 0 - 12 L/sec [facility] CKF61-93% PRE 0.82 0 - 12 L/sec [facility] SLK09-42% %PRE PRED 26 0 - 300 % [facility] FEF75% PRED 0.96 0 - 300 L/sec [facility] FEF75% PRE 0.37 0 - 12 L/sec [facility] FEF75% %PRE PRED 38 % [facility] PEF PRED 8.97 0 - 18 L/sec [facility] PEF PRE 4.62 0 - 18 L/sec [facility] PEF %PRE PRED 51 0 - 300 % [facility] PIF PRE 3.34 0 - 18 L/sec [facility] FEV6 PRE 3.89 0 - 12 Liters [facility] FEV1/FEV6 PRE 52 0 - 12 % [facility] VC PRED 4.79 0.05 - 9.99 Liters [facility] VC PRE 4.40 0.05 - 9.99 Liters [facility] VC %PRE PRED 92 0 - 300 % [facility] TLC PRED 7.33 0.05 - 11.99 Liters [facility] TLC PRE 10.02 0.05 - 11.99 Liters [facility] TLC %PRE PRED 137 0 - 300 % [facility] RV PRED 2.33 0.05 - 9.99 Liters [facility] RV PRE 5.62 0.05 - 9.99 Liters [facility] RV %PRE PRED 241 0 - 300 % [facility] RV/TLC PRED 33 0 - 300 % [facility] RV/TLC PRE 56 0 - 300 % [facility] FRC N2 PRED 3.26 0.05 - 9.99 Liters [facility] FRC PL PRED 3.84 0.05 - 9.99 Liters [facility] FRC PL PRE 6.75 0.05 - 9.99 Liters [facility] FRC PL %PRE PRED 176 0 - 300 % [facility] ERV PRED 1.65 0.05 - 9.99 Liters [facility] ERV PRE 1.18 0.05 - 9.99 Liters [facility] ERV %PRE PRED 72 0 - 300 % [facility] IC PRE 3.27 0.05 - 9.99 Liters [facility] DLCO PRED 36.2 0.05 - 99.99 mL/mmHg/min [facility] DLCO PRE 24.9 mL/mmHg/min [facility] DLCO %PRE PRED 69 0 - 300 % [facility] DL ADJ PRED 36.2 1 - 2 mL/mmHg/min [facility] DL ADJ PRE 25.9 1 - 2 mL/mmHg/min [facility] DL ADJ %PRE PRED 71 0 - 300 % [facility] DLCO/VA PRED 5.04 mL/mHg/min/ L [facility] DLCO/VA PRE 3.64 mL/mHg/min/ L [facility] DLCO/VA %PRE PRED 72 % [facility] DL/VA ADJ PRED 3.80 mL/mHg/min/ L [facility] DL/VA ADJ %PRE PRED 100 % [facility] VA PRE 6.84 Liters [facility] RAW PRED 1.15 cmH2O/L/sec [facility] RAW PRE 4.60 cmH2O/L/sec [facility] RAW %PRE PRED 401 % [facility] GAW PRED 0.922 L/sec/cmH2O [facility] GAW PRE 0.217 L/sec/cmH2O [facility] GAW %PRE PRED 24 % [facility] SRAW PRED 4.41 cmH2O/L/s/L [facility] SRAW PRE 38.02 cmH2O/L/s/L [facility] SRAW %PRE PRED 862 % [facility] SGAW PRED 0.225 L/s/cmH2O/L [facility] SGAW PRE 0.026 L/s/cmH2O/L [facility] SGAW %PRE PRED 12 % [facility] Anatomical Region Laterality Modality PFT 04/04/2020 10:0 4 AM CDT Narrative 04/06/2020 3:39 PM CDT [facility] Division of Pulmonary & Critical Care Medicine [address] [place] [address]; [place], [place] ??[address]; [phone] Pulmonary Function Laboratory Pulmonary Stress Test Simple/Oxygen Assessment Patient: Abel Browne Date: 04/04/2020 Physician: Sonal Ht: 71.5 in Wt: 212 lbs Room: Outpatient Life Skills Trainer: Jhony : 1960 Diagnosis: ESRD Time(min) Distance (ft)/ [place] O2 L/M SpO2 HR Bettie* BP FEV1/ ?% Pred Rest: ??RA 99 61 2 119/80 1.93 / 53 ? Walk/Bike: ? 1 ??RA 98 82 2 ?? 2 ??RA 97 88 3 ?? 3 ??RA 98 89 3 ?? 4 ??RA 99 90 3 ?? 5 ??RA 98 87 3 ?? 6 min 0 sec ??1610 RA 99 91 3 ?? Recovery: ? 1 ??RA 99 70 3 138/88 2.17 / 58 2 ??RA 99 69 2 ? *Bettie rate of perceived exertion (1-10 dyspnea scale) ?? Gagan, CHEST 2003; 123:[id number] Walk Test Summary: Six Minute Walk Distance: 1610 ft Six minute Walk Work [distance (m) x body wt (kg)]: 84859 kg.m (normal >60,000 kg.m) Oxygen required to maintain SpO2 greater than 90% during six minutes of walking: - L/M Comments: - Interpretation: Breathing room air, SpO2 is normal at rest and during exercise sufficient to increase pulse from 61 to 91 b/min, SpO2 is stable. On this basis, SpO2 is adequate at rest and while walking breathing room air. This level of exercise is associated with no significant change of FEV1. By signing this report, the attending pulmonary physician certifies that he/she has personally reviewed and interpreted the graphic and numerical data associated with this pulmonary function study and has reviewed and /or edited a preliminary draft report and agrees with the written final report. Mervin Lutz MD working manager us Alonso Pruitt MD PFT ORDERABLES Final Result documented in this encounter Visit Diagnoses Diagnosis End stage renal disease (CMS/HCC) (HCC) End stage renal disease documented in this encounter Care Teams Social Services Aide Relationship Specialty Start Date End Date Gerardo Shah MD PCP - General Internal Medicine 09/30/18 Suzette Strickland MD [facility] [address] [place] [address] Referring Physician Nephrology 02/15/20 Rita Tapia, RN [address] [place] [address] Registered Nurse Furniture Sales Associate 02/15/20 documented as of this encounter
--- OUTSIDE RECORDS SUMMARY | 2024-10-16 06:41 | XMS_ITS | Encounter Summary ---
Author Organization [facility] Healthcare Address [address] [place] [address] Care Team Providers Care Special Shopper Name Role Phone Gerardo Shah MD Primary Care Provider [phone] Suzette Strickland MD Unavailable [phone] Rita Tapia RN Unavailable [phone] Encounter Details Date Type Department Care Team (Late st Contact Info) Description 05/06/2020 Telephone [facility] Transplant Kidney [address] [address] [address] [phone] [place] [address] Zhane Hatfield Social History Tobacco Use Types Packs/Day Years Used Date Smoking Tobacco: Former Cigarettes 1.5 39.5 0 04/11/1978 - 2017 Smokeless Tobacco: Never Alcohol Use Standard Drinks/Week Comments No 0 (1 standard drink = 0.6 oz pur e alcohol) Sex and Gender Information Value Date Recorded Sex Assigned at Not on file 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 Called and LM stating that pt is still going thru evaluation but if she needs any additional info to call me or fax. documented in this encounter Plan of Treatment Scheduled Procedures Name Priority Associated Diagnoses Date/Ti me TRANSPLANT KIDNEY ESRD (end stage renal disease) ([facility]) documented as of this encounter Visit Diagnoses Not on filedocumented in this encounter Care Teams Special Shopper Relationship Specialty Start Date End Date Gerardo Shah MD PCP - General Internal Medicine 09/30/18 Suzette Strickland MD [address] [facility] [address] [place] [address] Referring Physician Nephrology 02/15/20 Rita Tapia, RN [address] [place] [address] Registered Nurse Bottling Room Worker 02/15/20 documented as of this encounter
--- OUTSIDE RECORDS SUMMARY | 2024-10-16 06:41 | XMS_ITS | Encounter Summary ---
Author Organization [facility] Healthcare Address [address] [place] [address] Care Team Providers Care Dance Hall Hostess Name Role Phone Gerardo Shah MD Primary Care Provider [phone] Suzette Strickland MD Unavailable [phone] Rita Tapia RN Unavailable [phone] Reason for Referral * Consultation (Routine) - Closed Specialty Diagnoses / Procedures Referred By Contac t Referred To Contact Urology Diagnoses ESRD (end stage renal disease) ([facility]) ([facility]) Jacobo Sanchez MD Phone: tel: fax: Valencia Khan MD [address] [facility] [id number] [place] [address] Phone: tel: fax: Referral ID Status Reason Start Date Expiration Date V isits Requested Visits Authorized [id number] Closed Specialty Services Required 04/22/2020 11/01/2021 1 1 Question Answer Please select the performing region: [facility] [place] [[id number]] Please select the performing department: [facility]OL[facility] [[id number]] To provider: VALENCIA KHAN [[id number]] # of visits: 1 Comments Patient has PKD and is very uncomfortable and needs a nephrectomy and would like to see someone at [place] to have a nephrectomy Encounter Details Date Type Department Care Team (Late st Contact Info) Description 04/22/2020 Telephone [facility] and 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 Khan. I also gave him the number for his office so they could reach out to him. documented in this encounter Plan of Treatment Scheduled Procedures Name Priority Associated Diagnoses Date/Ti me TRANSPLANT KIDNEY ESRD (end stage renal disease) ([facility]) Scheduled Referrals Name Type Priority Associated Diagnoses Order Schedule Ambulatory referral to Urology Outpatient Referral Routine ESRD (end stage renal disease) (CMS/HCC) Expected: 05/06/2020 (Approximate), Expires: 04/22/2021 documented as of this encounter Visit Diagnoses Diagnosis ESRD (end stage renal disease) (CMS/HCC) (HCC)- Primary End stage renal disease documented in this encounter Care Teams Dance Hall Hostess Relationship Specialty Start Date End Date Gerardo Shah MD PCP - General Internal Medicine 09/30/18 Suzette Strickland MD [address] [facility] [address] [place] [address] Referring Physician Nephrology 02/15/20 Rita Tapia, RN [address] [place], [place] [id number] Registered Nurse Employee Relations Manager 02/15/20 documented as of this encounter
--- OUTSIDE RECORDS SUMMARY | 2024-10-16 06:41 | XMS_ITS | Encounter Summary ---
Author Organization [facility] Healthcare Address [address] [place] [address] Care Team Providers Care Storage Management Architect Name Role Phone Gerardo Shah MD Primary Care Provider [phone] Suzette Strickland MD Unavailable [phone] Rita Tapia RN Unavailable Encounter Details Date Type Department Care Team (Late st Contact Info) Description 04/11/2020 9:00 AM CDT Documentation [facility] Transplant Center [address] [facility], [place] [address] Zhane Hatfield Social History Tobacco Use Types Packs/Day Years Used Date Smoking Tobacco: Former Cigarettes 1.5 39.5 0 04/11/1978 - 2017 Smokeless Tobacco: Never Alcohol Use Standard Drinks/Week Comments No 0 (1 standard drink = 0.6 oz pur e alcohol) Sex and Gender Information Value Date Recorded Sex Assigned at Not on file 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 Ins benefits were reviewed - [facility]. This is spouse's plan from her employer at [employer]. Pt understands total annual OOP of $6,700.00 and have no financial concerns. 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 If they are remove, pt will probably start dialysis as his kidney function will drop to under 20%. Explained pt's eligibility for Medicare coverage at time of dialysis or time of txp surgery. Explained cost, COB and post-coverage but pt may qualify for Medicare based on age post-txp. Pt stated his sister is interested in being tested as possible donor. Pt asked about options if she is not a match and we discussed the exchange program. Pt will speak to his sister to see if she would be willing to participate if not a direct match for pt. Pt identified spouse as primary support post-txp. 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 Pt had no other questions or concerns and has agreed to contact [employer] if any ins changes occur or insurance questions/concerns. Insurance Plan/Status/Effective Dates Dewaynejomar Colin Browne's current insurance detail is as follows: Primary Insurance: [employer] effective 10/28/2012 - Secondary Insurance: , effective - Income Details and Employment Status Patient is currently unemployed. Patient receives incomes through spouse's income. Disability Status NA Primary Deductibles/Co-Pays Inpatient Benefits Outpatient Benefits Deductible 3,000 Co-Pay 0 Out of Pocket Max 6,700 Office Visit Co-Pay 0 Specialist Co-Pay 0 Secondary Deductibles/Co-Pays Inpatient Benefits Outpatient Benefits Deductible Co-Pay Out of Pocket Max Office Visit Co-Pay Specialist Co-Pay Prescription Drug coverage Co-Pay Retail Pharmacy Mail Order Pharmacy Generic Co-Pay Brand Name Co-Pay Non-Formulary Co-Pay Retail Pharmacy Benefit Travel and Lodging Available $10,000 benefit All deductibles, co-pays, and pharmacy benefits were reviewed with patient, with no further questions at this time. Finance Assistance Patient is not receiving financial assistance to cover their current needs. Patient will not require assistance moving forward for transplant coverage or post transplant medications Coordination of Benefits N/A Finance Concerns The patient has adequate coverage for transplant at this time. No financial concerns have been identified during this consult. The patient was advised to contact the student financial services counselor if there are any changes to their insurance, employment, or otherwise financial situation. All questions have been answered and the patient is aware to call with any additional questions. Recommendations Based on the concerns noted above, the following recommendations have been discussed with the patient: Enroll in Medicare when qualifies. documented in this encounter Plan of Treatment Scheduled Procedures Name Priority Associated Diagnoses Date/Ti me TRANSPLANT KIDNEY ESRD (end stage renal disease) ([facility]) documented as of this encounter Visit Diagnoses Not on filedocumented in this encounter Care Teams Storage Management Architect Relationship Specialty Start Date End Date Gerardo Shah MD PCP - General Internal Medicine 09/30/18 Suzette Strickland MD [facility] [address] [place] [address] Referring Physician Nephrology 02/15/20 Rita Tapia, RN [address] [place] [address] Registered Nurse Treadle Cut Off Saw Operator 02/15/20 documented as of this encounter
--- OUTSIDE RECORDS SUMMARY | 2024-10-16 06:41 | XMS_ITS | Encounter Summary ---
Author Organization [facility] Healthcare Address [address] [place] [address] Care Team Providers Care Project Internship Name Role Phone Gerardo Shah MD Primary Care Provider [phone] Suzette Strickland MD Unavailable [phone] Rita Tapia RN Unavailable [phone] Encounter Details Date Type Department Care Team (Late st Contact Info) Description 06/27/2020 Telephone [facility] Transplant Kidney [address] [facility] [address] [phone] [place], [place] [id number] Rita Tapia RN [address] [place], [place] [id number] Social History Tobacco Use Types Packs/Day Years Used Date Smoking Tobacco: Former Cigarettes 1.5 40 0 04/11/1978 - 2017 Smokeless Tobacco: Never Alcohol Use Standard Drinks/Week Comments Yes 2 (1 standard drink = 0.6 oz pur e alcohol) Sex and Gender Information Value Date Recorded Sex Assigned at Not on file 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 He says he signed them and mailed themback in several weeks ago. I told him I hadnt received anything and would mail him out a new set ofconsents Please mail patient Acknowledgement of Receipt and Consent for Kidney Transplant Evaluation with self-addressed stamped envelope. documented in this encounter Plan of Treatment Scheduled Procedures Name Priority Associated Diagnoses Date/Ti me TRANSPLANT KIDNEY ESRD (end stage renal disease) ([facility]) documented as of this encounter Visit Diagnoses Not on filedocumented in this encounter Care Teams Project Internship Relationship Specialty Start Date End Date Gerardo Shah MD PCP - General Internal Medicine 09/30/18 Suzette Strickland MD [address] [facility] [address] [place] [address] Referring Physician Nephrology 02/15/20 Rita Tapia, RN [address] [place] [address] Registered Nurse Humanities Professor 02/15/20 documented as of this encounter
--- OUTSIDE RECORDS SUMMARY | 2024-10-16 06:41 | XMS_ITS | Encounter Summary ---
Author Organization [facility] Address [address] [place] [address] Phone Care Team Providers Care Dermatology Teacher Name Role Phone Gerardo Shah MD Primary Care Provider [phone] Suzette Strickland MD Unavailable [phone] Rita Tapia RN Unavailable [phone] Encounter Details Date Type Department Care Team (Late st Contact Info) Description 06/21/2020 Telephone [facility]) - [facility] Urology [facility] Advanced Medicine 11th [place] [address] [place] [address] Betzy Lamar Social History Tobacco Use Types Packs/Day Years Used Date Smoking Tobacco: Former Cigarettes 1.5 40 0 04/11/1978 - 2017 Smokeless Tobacco: Never Alcohol Use Standard Drinks/Week Comments No 0 (1 standard drink = 0.6 oz pur e alcohol) Sex and Gender Information Value Date Recorded Sex Assigned at Not on file 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 Gender Identity Not on file Sexual Orientation Straight 05/03/2020 10 :36 AM CDT documented as of this encounter Miscellaneous Notes * Telephone Encounter - Betzy Lamar - 06/21/2020 8:38 AM CDT is asking to speak w/your regarding the paper work she gave you documented in this encounter Plan of Treatment Scheduled Procedures Name Priority Associated Diagnoses Date/Ti me TRANSPLANT KIDNEY ESRD (end stage renal disease) ([facility]) documented as of this encounter Visit Diagnoses Not on filedocumented in this encounter Care Teams Dermatology Teacher Relationship Specialty Start Date End Date Gerardo Shah MD PCP - General Internal Medicine 09/30/18 Suzette Strickland MD [address] [facility] [address] [place] [address] Referring Physician Nephrology 02/15/20 Rita Tapia, RN [address] [place], [place] [id number] Registered Nurse Gas Engine Operator 02/15/20 documented as of this encounter
--- OUTSIDE RECORDS SUMMARY | 2024-10-16 06:42 | XMS_ITS ---
Author Organization [facility] [place] [address] Address [address] [place] [address] Care Team Providers Care Shuttler Name Role Phone Gerardo Shah MD Primary Care Provider [phone] Suzette Strickland MD Unavailable [phone] Rita Tapia RN Unavailable [phone] Transplant Episode Kidney Candidate [facility] ([place], [place]) [facility] Center waitlisted on 08/03/2020 Marked as Active on 08/15/2020 Reason: Listed in [facility] Kidney CoordinatorJo Aviva Tapia RN Email: N/A Scores Score Value Updated Exceptions/Reas ons CPRA 0 08/31/2020 EPTS (Calc) 60 10/16/2024 Care Team Name Role Phone Fax Email Rita Tapia RN Kidney Coordinator [phone] N/A Suzette Strickland MD Referring Physician [phone] N/A Zhane Hatfield Health Education Specialist [phone] N/A N/A Events Pre-Transplant Referred: 01/07/2020 Evaluation began: 02/18/2020 Committee: 08/01/2020 Center waitlisted: 08/03/2020 Dialysis History Dialysis History Start End Type Comments Center 11/09/2020 Hemo Mon,Wed,Fri 6am [facility] Dialysis Center Information Center Phone Fax Address [facility] [phone] [facility] [address] [facility] [address]
--- OUTSIDE RECORDS SUMMARY | 2024-10-16 06:42 | XMS_ITS | Encounter Summary ---
Author Organization [facility] Address [address] [place] [address] Care Team Providers Care Cloth Roll Winder Name Role Phone Gerardo Shah MD Primary Care Provider [phone] Suzette Strickland MD Unavailable [phone] Rita Tapia RN Unavailable [phone] Encounter Details Date Type Department Care Team (Late st Contact Info) Description 02/18/2020 Telephone [facility] Transplant Kidney [address] [facility] [id number] [place] [address] Zhane Hatfield Social History Tobacco Use Types Packs/Day Years Used Date Smoking Tobacco: Former Cigarettes Q uit: 2018 Smokeless Tobacco: Never Alcohol Use Standard Drinks/Week Comments No 0 (1 standard drink = 0.6 oz pur e alcohol) Sex and Gender Information Value Date Recorded Sex Assigned at Not on file 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 Epic updated documented in this encounter Plan of Treatment Scheduled Procedures Name Priority Associated Diagnoses Date/Ti me TRANSPLANT KIDNEY ESRD (end stage renal disease) ([facility]) documented as of this encounter Visit Diagnoses Not on filedocumented in this encounter Care Teams Cloth Roll Winder Relationship Specialty Start Date End Date Gerardo Shah MD PCP - General Internal Medicine 09/30/18 Suzette Strcikland MD [address] [facility] [address] [place] [address] Referring Physician Nephrology 02/15/20 Rita Tapia, RN [address] [place], [place] [id number] Registered Nurse Sales And Marketing Manager 02/15/20 documented as of this encounter
--- OUTSIDE RECORDS SUMMARY | 2024-10-16 06:42 | XMS_ITS | Encounter Summary ---
Author Organization [facility] Healthcare Address [address] [place] [address] Care Team Providers Care Rehab Technician Name Role Phone Gerardo Shah MD Primary Care Provider [phone] Reason for Visit * Reason Onset Date Comments Referral - Kidney Txp 01/07/2020 Encounter Details Date Type Department Care Team (Late st Contact Info) Description 01/07/[address] 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 Gender Identity Not on file Sexual Orientation Straight 05/03/2020 10 :36 AM CDT documented as of this encounter Miscellaneous Notes * Telephone Encounter - Erica Rosales - 01/07/2020 1:07 PM CDT Mailed recipient packet documented in this encounter Plan of Treatment Scheduled Procedures Name Priority Associated Diagnoses Date/Ti me TRANSPLANT KIDNEY ESRD (end stage renal disease) ([facility]) documented as of this encounter Visit Diagnoses Not on filedocumented in this encounter Care Teams Rehab Technician Relationship Specialty Start Date End Date Gerardo Shah MD PCP - General Internal Medicine 09/30/18 documented as of this encounter
--- OUTSIDE RECORDS SUMMARY | 2024-10-16 06:42 | XMS_ITS | Encounter Summary ---
Author Organization [facility] Healthcare Address [address] [place] [address] Care Team Providers Care Formation Fracturing Operator Name Role Phone Gerardo Shah MD Primary Care Provider [phone] Suzette Strickland MD Unavailable [phone] Rita Tapia RN Unavailable [phone] Reason for Referral * Pulmonology (Routine) - Closed Specialty Diagnoses / Procedures Referred By Contac t Referred To Contact Diagnoses End stage renal disease ([facility]) ([facility]) Procedures Pulmonary Function Test -[facility] Adult PFT Lab- CAM-8D; Standard, Walk for Distance; Spirometry, Spirometry w/bronchodilator, DLCO and Lung Volumes Alonso Pruitt MD [address] [place] [address] Phone: tel: fax: [facility] (All Locations) Referral ID Status Reason Start Date Expiration Date Visits Re quested Visits Authorized [id number] Closed 02/18/2020 08/29/2021 9 9 * Renal Disease (Routine) - Closed Specialty Diagnoses / Procedures Referred By Contac t Referred To Contact Diagnoses End stage renal disease ([facility]) ([facility]) Procedures Stress Echo Pharmacologic Alonso Pruitt MD [address] [place] [address] Phone: tel: fax: [address] [phone] Referral ID Status Reason Start Date Expiration Date Visits Re quested Visits Authorized [id number] Closed 02/18/2020 08/29/2021 1 1 * (Routine) - Closed Specialty Diagnoses / Procedures Referred By Contac t Referred To Contact Diagnoses End stage renal disease (CMS/HCC) (HCC) Procedures ECG 12 lead Alonso Pruitt MD [address] [address] Phone: tel: fax: [address] [phone] Referral ID Status Reason Start Date Expiration Date Visits Re quested Visits Authorized [id number] Closed 02/18/2020 08/29/2021 1 1 * Diagnostic Imaging (Routine) - Closed Specialty Diagnoses / Procedures Referred By Contac t Referred To Contact Diagnoses End stage renal disease (CMS/HCC) (HCC) Procedures X-ray chest 2 views Alonso Pruitt MD [address] [address] Phone: tel: fax: [address] [phone] Referral ID Status Reason Start Date Expiration Date Visits Re quested Visits Authorized [id number] Closed 02/18/2020 08/29/2021 1 1 * Diagnostic Imaging (Routine) - Closed Specialty Diagnoses / Procedures Referred By Contac t Referred To Contact Diagnoses End stage renal disease (CMS/HCC) (HCC) Procedures XR Orthopantogram Panorex Alonso Pruitt MD [address] [address] Phone: tel: fax: [address] [phone] Referral ID Status Reason Start Date Expiration Date Visits Re quested Visits Authorized [id number] Closed 02/18/2020 08/29/2021 1 1 * Diagnostic Imaging (Routine) - Closed Specialty Diagnoses / Procedures Referred By Contac t Referred To Contact Radiology Diagnoses End stage renal disease (CMS/HCC) (HCC) Procedures CT Abdomen Pelvis WO Contrast Alonso Pruitt MD [address] [place] [address] Phone: tel: fax: [address] [phone] Referral ID Status Reason Start Date Expiration Date Visits Re quested Visits Authorized [id number] Closed 02/18/2020 08/29/2021 1 1 Encounter Details Date Type Department Care Team (Late st Contact Info) Description 02/18/[address] 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 Gender Identity Not on file Sexual Orientation Straight 05/03/2020 10 :36 AM CDT documented as of this encounter Miscellaneous Notes * Telephone Encounter - Rita Tapia RN - 02/18/2020 5:19 PM CDT We agreed upon the date for the first day of evaluation as 04/04/20 and the second day of 04/11/20 Please schedule the patient for the following: Class Finance CXR Panorex EKG Labs Non contrast CT of the abdomen and pelvis DSE Sw PFTs with 6 minute walk Clinic at 3 pm documented in this encounter Plan of Treatment Scheduled Orders Name Type Priority Associated Diagnoses Orde r Schedule HLA Antibody Screen - PRA (Class I and Class II) Lab Routine End stage renal disease ([facility]) Expected: 02/18/2020, Expires: 02/17/2021 Scheduled Procedures Name Priority Associated Diagnoses Date/Ti me TRANSPLANT KIDNEY ESRD (end stage renal disease) ([facility]) documented as of this encounter Results * STRESS ECHO PHARMACOLOGIC W DOPPLER/CF W CONTRAST (04/11/2020 9:28 AM CDT) Anatomical Region Laterality Modality Ultrasound 04/11/2020 7:45 AM CDT Narrative 04/11/2020 9:54 AM CDT Patient name: Abel Browne Date of test: 04/11/2020 Hospital #: [id number] ?Location: [facility] Interpreted by: Baltazar Howe MD. Respite Provider: Chucho Hoyt RDCS RN: Karthik Kruger RN Reason for Test: ESRD Study quality: Technically good Referring Physician: ALONSO PRUITT MD Contrast Agent: 0.9 ml Optison Administered, [...] MD. By signing this report, the attending library technology instructor certifies that he or she has personally supervised and interpreted the echocardiogram and has reviewed and or edited and agrees with the written comments contained within the report. Procedure Note Fran Howe MD PhD - 04/11/2020 Patient name: Abel Browne Date of test: 04/11/2020 Hospital #: [id number] Location: [facility] Interpreted by: Baltazar Howe MD. Respite Provider: Chucho Hoyt RDCS RN: Katrhik Kruger RN Reason for Test: ESRD Study quality: Technically good Referring Physician: ALONSO PRUITT MD Contrast Agent: 0.9 ml Optison Administered, [...] MD. By signing this report, the attending library technology instructor certifies that he or she has personally supervised and interpreted the echocardiogram and has reviewed and or edited and agrees with the written comments contained within the report. us Alonso Pruitt MD CV ECHO PROCEDURES Final Result * CT Abdomen Pelvis WO Contrast (04/04/2020 [...] CT. Electronically signed by: Nitish Rodriguez M.D. Alonso Pruitt MD IM CT PROCEDURES Edited Result - Final * XR Orthopantogram Panorex (04/04/2020 11:20 AM [...] by: Ivan Adamson M.D. Alonso Pruitt MD IM XR PROCEDURES Final Result * Pulmonary Function Test - (04/04/2020 10:36 AM CDT) FVC PRED 4.91 0.05 - 9.99 Liters [facility] FVC PRE 4.26 0 - 12 Liters [facility] FVC %PRE PRED 87 0 - 300 % [facility] FEV1 PRED 3.78 0.05 - 9.99 Liters [facility] FEV1 PRE 2.01 0 - 12 Liters [facility] FEV1 %PRE PRED 53 0 - 300 % [facility] FEV1/FVC PRED 77 1 - 99 % [facility] FEV1/FVC PRE 47 0 - 12 % [facility] DUR68-35% PRED 3.11 0 - 12 L/sec [facility] HOY67-30% PRE 0.82 0 - 12 L/sec [facility] ZAR10-99% %PRE PRED 26 0 - 300 % [facility] FEF75% PRED 0.96 0 - 300 L/sec [facility] FEF75% PRE 0.37 0 - 12 L/sec [facility] FEF75% %PRE PRED 38 % [facility] PEF PRED 8.97 0 - 18 L/sec [facility] PEF PRE 4.62 0 - 18 L/sec [facility] PEF %PRE PRED 51 0 - 300 % [facility] PIF PRE 3.34 0 - 18 L/sec [facility] FEV6 PRE 3.89 0 - 12 Liters [facility] FEV1/FEV6 PRE 52 0 - 12 % [facility] VC PRED 4.79 0.05 - 9.99 Liters [facility] VC PRE 4.40 0.05 - 9.99 Liters [facility] VC %PRE PRED 92 0 - 300 % [facility] TLC PRED 7.33 0.05 - 11.99 Liters [facility] TLC PRE 10.02 0.05 - 11.99 Liters [facility] TLC %PRE PRED 137 0 - 300 % [facility] RV PRED 2.33 0.05 - 9.99 Liters [facility] RV PRE 5.62 0.05 - 9.99 Liters [facility] RV %PRE PRED 241 0 - 300 % [facility] RV/TLC PRED 33 0 - 300 % [facility] RV/TLC PRE 56 0 - 300 % [facility] FRC N2 PRED 3.26 0.05 - 9.99 Liters [facility] FRC PL PRED 3.84 0.05 - 9.99 Liters [facility] FRC PL PRE 6.75 0.05 - 9.99 Liters [facility] FRC PL %PRE PRED 176 0 - 300 % [facility] ERV PRED 1.65 0.05 - 9.99 Liters [facility] ERV PRE 1.18 0.05 - 9.99 Liters [facility] ERV %PRE PRED 72 0 - 300 % [facility] IC PRE 3.27 0.05 - 9.99 Liters [facility] DLCO PRED 36.2 0.05 - 99.99 mL/mmHg/min [facility] DLCO PRE 24.9 mL/mmHg/min [facility] DLCO %PRE PRED 69 0 - 300 % [facility] DL ADJ PRED 36.2 1 - 2 mL/mmHg/min [facility] DL ADJ PRE 25.9 1 - 2 mL/mmHg/min [facility] DL ADJ %PRE PRED 71 0 - 300 % [facility] DLCO/VA PRED 5.04 mL/mHg/min/ L [facility] DLCO/VA PRE 3.64 mL/mHg/min/ L [facility] DLCO/VA %PRE PRED 72 % [facility] DL/VA ADJ PRED 3.80 mL/mHg/min/ L [facility] DL/VA ADJ %PRE PRED 100 % [facility] VA PRE 6.84 Liters [facility] RAW PRED 1.15 cmH2O/L/sec [facility] RAW PRE 4.60 cmH2O/L/sec [facility] RAW %PRE PRED 401 % [facility] GAW PRED 0.922 L/sec/cmH2O [facility] GAW PRE 0.217 L/sec/cmH2O [facility] GAW %PRE PRED 24 % [facility] SRAW PRED 4.41 cmH2O/L/s/L [facility] SRAW PRE 38.02 cmH2O/L/s/L [facility] SRAW %PRE PRED 862 % [facility] SGAW PRED 0.225 L/s/cmH2O/L [facility] SGAW PRE 0.026 L/s/cmH2O/L [facility] SGAW %PRE PRED 12 % [facility] Anatomical Region Laterality Modality PFT 04/04/2020 10:0 4 AM CDT Narrative 04/06/2020 3:39 PM CDT [facility] Division of Pulmonary & Critical Care Medicine [address] [place] [address]; [place] [address] [facility]; [place], [place] ??[address]; [phone] Pulmonary Function Laboratory Pulmonary Stress Test Simple/Oxygen Assessment Patient: Abel Browne Date: 04/04/2020 Physician: Sonal Ht: 71.5 in Wt: 212 lbs Room: Outpatient Registration Manager: Jhony : 1960 Diagnosis: ESRD Time(min) Distance [...] Work [distance (m) x body wt (kg)]: 02062 kg.m (normal >60,000 kg.m) Oxygen required to [...] the written final report. 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 products fabricator assembler Alonso Pruitt MD PFT ORDERABLES Final Result * (ABNORMAL) Urinalysis reflex to microscopic (04/04/2020 9:42 AM CDT) Color, ur Straw Yellow [facility] Clarity, ur Clear Clear [facility] Specific gravity, ur 1.012 1.010 - 1.025 [facility] pH, urine 6 [facility] Protein, ur ql 1+(A) Negative [facility] Glucose, ur ql Negative Negative [facility] Ketones, ur Negative Negative [facility] Bilirubin, ur Negative Negative [facility] Blood, ur Negative Negative [facility] Urobilinogen, ur <2.0 <2.0 mg/dL [facility] Nitrite, ur Negative Negative [facility] Leukocyte esterase, ur Negative Negative [facility] UA reflex comment Reflex to microscopic UA will be performed. [facility] Urine 04/04/2020 9:42 AM CDT 04/04/2020 9:54 AM CDT Narrative [facility] - 04/04/2020 10:00 AM CDT ?? Urine pH is affected by diet, medications, systemic acid-base disturbances, and renal tubular function. ??pH may affect urinary stone formation. ??For example, urine pH below 6.0 may help reduce the tendency for calcium phosphate stones and pH greater than 6.0 may reduce the tendency for uric acid stone formation. Source: [employer]. Last revised 11-07-2017 us Alonso Pruitt MD LAB URINE ORDERABLES Final Resu lt [facility] Department [place] [address] * X-ray chest 2 views (04/04/2020 9:36 AM CDT) Anatomical Region Laterality Modality Body, Chest N/A Computed Radiogr aphy 04/04/2020 12:4 0 PM CDT Impressions 04/04/2020 12:40 PM CDT There are no prior chest radiographs at [facility] for comparison. The heart and mediastinal [...] There are no prior chest radiographs at [facility] for comparison. The heart and mediastinal contours are normal. There is no mass or consolidation. There is no lymphadenopathy. There are no pleural effusions. There is no pneumothorax. There is old granulomatous disease. Electronically signed by: Ann Marie Zazueta M.D. Alonso Pruitt MD IMG XR PROCEDURES Final Result * Collection Task for HLA Antibody Screen (04/04/2020 9:10 AM CDT) HLA Antibody Screen by PRA Received [facility] Blood specimen (specimen) 04/04/2020 9:10 AM CDT 04/04/2020 12:30 PM CDT Alonso Pruitt MD LAB BLOOD ORDERABLES Final Resu lt Performing Organization Address [facility]/ZIP Co de Phone Number [facility] [place] [address] * Collection Task for HLA Antibody Screen (04/04/2020 9:10 AM CDT) HLA Antibody Screen By Single Antigen Received [facility] Blood specimen (specimen) 04/04/2020 9:10 AM CDT 04/04/2020 12:30 PM CDT Alonso Pruitt MD LAB BLOOD ORDERABLES Final Resu lt Performing Organization Address City/[facility] Co de Phone Number [facility] [place] [address] * HLA Antibody Screen - SAB (Class [...] a method developed and validated by the [facility] HLA laboratory based on an FDA-approved IVD kit ([employer] Single-Antigen, [employer], [place], [place]). All patient serum samples are pretreated with EDTA before the screen to prevent complement interference. Additional serum treatments, such as adsorption and DTT treatment, may be performed as indicated. ??Interpretive comments: Low risk: MFI [id number]. Moderate risk: MFI [id number]. Increased risk: MFI >/= 5000. The presence [...] to avoid. Testing performed at the [facility] Laboratory, [address] [place] [address], 5th floor, [place], [address]. CLIA # [id number]. Gracie Rubi M.D., Ph.D., Associate HLA Gsa Coordinator Harman Flores M.D., Ph.D., HLA Gsa Coordinator Stan Patel M.D., Nuclear Reactor Technician, [facility] Clinical Laboratories Current methodology and interpretive comments last revised on 01/05/2020. Alonso Pruitt MD LAB BLOOD ORDERABLES Final Resu lt Performing Organization Address [facility] de Phone Number [facility] * Collection Task for HLA Antibody Screen (04/04/2020 9:10 AM CDT) Pathologist [facility] HLA Antibody Screen By Single Antigen Received [facility] Blood specimen (specimen) 04/04/2020 9:10 AM CDT 04/04/2020 12:30 PM CDT Alonso Pruitt MD LAB BLOOD ORDERABLES Final Resu lt Performing Organization Address [facility] de Phone Number [facility] [place] [address] * Collection Task for HLA Typing 1 (04/04/2020 9:10 AM CDT) Pathologist [facility] HLA Class I DNA (ABC) Recipient Received [facility] Blood specimen (specimen) 04/04/2020 9:10 AM CDT 04/04/2020 12:30 PM CDT Alonso Pruitt MD LAB BLOOD ORDERABLES Final Resu lt Performing Organization Address [facility] de Phone Number [facility] [place] [address] * LR HLA Typing (Class I and Class II) (04/04/2020 9:10 AM CDT) [facility] Test Method r-SSO HISTOTRAC A First [place]lele A*02 HISTOTRAC [...] as IVD tests and validated by the [facility] HLA Laboratory. Testing performed at the [facility] Laboratory, [address] [place] [address], 5th floor, [place], [address]. [place] # [id number]. Gracie Rubi M.D., Ph.D., Associate HLA Gsa Coordinator Harman Flores M.D., Ph.D., HLA Gsa Coordinator Stan Patel M.D., Nuclear Reactor Technician, [facility] Clinical Laboratories Current methodology comment last revised on 01/05/2020. Alonso Pruitt MD LAB BLOOD ORDERABLES Final Resu lt Performing Organization Address [facility] Co de Phone Number [facility]FANG[facility] * ABO/Rh (04/04/2020 9:10 AM CDT) ABO Rh O Negative [facility] Blood specimen (specimen) 04/04/2020 9:10 AM CDT 04/04/2020 12:32 PM CDT Alonso Pruitt MD LAB BLOOD BANK TEST ORDERABLES Final Result Performing Organization Address [facility] de Phone Number [facility] [place] [address] * (ABNORMAL) Uric acid (04/04/2020 8:59 AM CDT) Uric acid 9.2(H) 3.0 - 8.0 mg/dL [facility] Blood specimen (specimen) 04/04/2020 8:59 AM CDT 04/04/2020 9:59 AM CDT Alonso Pruitt MD LAB BLOOD ORDERABLES Final Resu lt Performing Organization Address [facility] de Phone Number [facility] [place] [address] * Creatinine, urine, random (04/04/2020 8:59 AM CDT) Creatinine Ur 100.1 mg/dL [facility] Comment: Interpretive Data No reference range established. Current interpretive data was last revised 2019. Urine 04/04/2020 8:59 AM CDT 04/04/2020 9:59 AM CDT Alonso Pruitt MD LAB URINE ORDERABLES Final Resu lt Performing Organization Address [facility] Co de Phone Number [facility] Department [place] [address] * Protein, urine, random (04/04/2020 8:59 AM CDT) Protein, ur, quant 29.7 mg/dL [facility] Comment: Interpretive Data No reference range established. Current interpretive data was last revised 2019. Urine 04/04/2020 8:59 AM CDT 04/04/2020 9:59 AM CDT us Alonso Pruitt MD LAB URINE ORDERABLES Final Resu lt Performing Organization Address [facility] Co de Phone Number [facility] [place] [address] * RPR (04/04/2020 8:59 AM CDT) Pathologist [facility] RPR Nonreactive Nonreactive [facility] Blood specimen (specimen) 04/04/2020 8:59 AM CDT 04/04/2020 9:59 AM CDT Alonso Pruitt MD LAB MICROBIOLOGY - GENERAL ORDE RABLES Final Result Performing Organization Address [facility] de Phone Number [facility] Department [place] [address] * aPTT (04/04/2020 8:59 AM CDT) Pathologist [facility] aPTT 31 25 - 37 sec [facility] Comment: Interpretive data Heparin therapeutic range: 60-90 seconds Range based on correlation with therapeutic heparin activity range of 0.3-0.7 units/ml. Current interpretive data was last revised on 2019. Blood specimen (specimen) 04/04/2020 8:59 AM CDT 04/04/2020 9:57 AM CDT us Alonso Pruitt MD LAB BLOOD ORDERABLES Final Resu lt Performing Organization Address [facility] Co de Phone Number [facility] Department [place] [address] * Protime-INR (04/04/2020 8:59 AM CDT) [facility] PT 11.0 8.6 - 13.0 sec [facility] INR 1.0 0.8 - 1.2 [facility] Comment: Interpretive data Oral anticoagulant therapeutic ranges: Venous thromboembolism prophylaxis or treatment: 2.0-3.0 CARDIOLOGY Standard range: 2.0-3.0 High-intensity range: 2.5-3.5 Refer to indication-specific guidelines for appropriate target ranges for prosthetic heart valve replacement. Current interpretive data was last revised on 2019. Blood specimen (specimen) 04/04/2020 8:59 AM CDT 04/04/2020 9:57 AM CDT Alonso Pruitt MD LAB BLOOD ORDERABLES Final Resu lt [facility] Department [place] [address] * (ABNORMAL) PTH (04/04/2020 8:59 AM CDT) [facility] PTH 79(H) 15 - 65 pg/mL [facility] Blood specimen (specimen) 04/04/2020 8:59 AM CDT 04/04/2020 9:59 AM CDT Alonso Pruitt MD LAB BLOOD ORDERABLES Final Resu lt [facility] [place] [address] * Phosphorus (04/04/2020 8:59 AM CDT) [facility] Phosphorus, pl 3.6 2.3 - 4.5 mg/dL [facility] Blood specimen (specimen) 04/04/2020 8:59 AM CDT 04/04/2020 9:59 AM CDT us Alonso Pruitt MD LAB BLOOD ORDERABLES Final Resu lt [facility] Department [place] [address] * (ABNORMAL) Lipid panel (04/04/2020 8:59 AM CDT) Cholesterol 161 30 - 199 mg/dL [facility] Comment: Interpretive Data Ages < or = [...] on 2018. Triglycerides 147 <=149 mg/dL [facility] Comment: Interpretive Data Ages < or = [...] revised on 2018. HDL 38(L) >=40 mg/dL [facility] [place] Comment: Interpretive Data Ages < or = [...] on 2018. LDL, calculated 94 <=129 mg/dL [facility] Comment: Interpretive Data Ages < or = [...] revised on 2018. Non-HDL Cholesterol 123 mg/dL [facility] Comment: Interpretive Data Ages < or = [...] last revised on 2018. Chol/HDL ratio 4 [facility] Blood specimen (specimen) 04/04/2020 8:59 AM CDT 04/04/2020 9:59 AM CDT Alonso Pruitt MD LAB BLOOD ORDERABLES Final Resu lt Performing Organization Address City/[facility] Co de Phone Number [facility] Department [place] [address] * (ABNORMAL) Iron profile w/ IBC (04/04/2020 8:59 AM CDT) Pathologist [facility] Iron 71 50 - 150 mcg/dL [facility] TIBC 248(L) 250 - 400 mcg/dL [facility] Transferrin saturation 29 20 - 50 % [facility] Blood specimen (specimen) 04/04/2020 8:59 AM CDT 04/04/2020 9:59 AM CDT Alonso Pruitt MD LAB BLOOD ORDERABLES Final Resu lt [facility] Department [place] [address] * Hepatitis B core antibody, total (04/04/2020 8:59 AM CDT) Hep B core IgG/IgM Nonreactive Nonreactive [facility] Blood specimen (specimen) 04/04/2020 8:59 AM CDT 04/04/2020 10:01 AM CDT Alonso Pruitt MD LAB MICROBIOLOGY - GENERAL ORDE DELLA Edited Result - Final Performing Organization Address City/[facility] Co de Phone Number [facility] [place] [address] * Gamma GT (04/04/2020 8:59 AM CDT) GGT 19 10 - 50 Units/L [facility] Blood specimen (specimen) 04/04/2020 8:59 AM CDT 04/04/2020 9:59 AM CDT Alonso Pruitt MD LAB BLOOD ORDERABLES Final Resu lt Performing Organization Address [facility] Co de Phone Number [facility] [place] [address] * Ferritin (04/04/2020 8:59 AM CDT) Pathologist [facility] Ferritin 369 30 - 400 ng/mL [facility] Blood specimen (specimen) 04/04/2020 8:59 AM CDT 04/04/2020 9:59 AM CDT Result [facility] Alonso Pruitt MD LAB BLOOD ORDERABLES Final Resu lt Performing Organization Address [facility] Co de Phone Number [facility] Department [place] [address] * CMV, IgG (04/04/2020 8:59 AM CDT) [facility] CMV IgG Negative Negative [facility] Comment: Interpretive Data Negative - No detectable CMV IgG antibody. Equivocal- Uncertain Immune Status. ??Additional sample should be sent. Positive - Indicates presence of detectable CMV IgG antibody. Current interpretive data was last revised on 2016. Blood specimen (specimen) 04/04/2020 8:59 AM CDT 04/04/2020 9:58 AM CDT Alonso Pruitt MD LAB MICROBIOLOGY - GENERAL ORDNallely KENNETHTONG Final Result [facility] Department [place] [address] * (ABNORMAL) Comprehensive metabolic panel (04/04/2020 8:59 AM CDT) Sodium 142 135 - 145 mmol/L [facility] Potassium, pl 4.8 3.3 - 4.9 mmol/L [facility] Chloride 107 97 - 110 mmol/L [facility] CO2 25 22 - 32 mmol/L [facility] Anion gap 10 2 - 15 mmol/L [facility] BUN 41(H) 8 - 25 mg/dL [facility] Creatinine 2.56(H) 0.80 - 1.30 mg/dL [facility] Glucose 86 70 - 199 mg/dL [facility] Comment: Interpretive Data Fasting glucose >/= 126 [...] 2017. Calcium 9.5 8.5 - 10.3 mg/dL [facility] Bilirubin, total 0.3 0.1 - 1.2 mg/dL [facility] Protein, pl 7.5 6.5 - 8.5 g/dL [facility] Albumin 4.9 3.5 - 5.0 g/dL [facility] Alk phos 86 40 - 130 Units/L [facility] ALT 20 7 - 55 Units/L [facility] AST 22 10 - 50 Units/L [facility] Blood specimen (specimen) 04/04/2020 8:59 AM CDT 04/04/2020 9:59 AM CDT Alonso Pruitt MD LAB BLOOD ORDERABLES Final Resu lt Performing Organization Address [facility] de Phone Number [facility] Department [place] [address] * (ABNORMAL) CBC with auto differential (04/04/2020 8:59 AM CDT) [facility] WBC 8.2 3.8 - 9.9 K/cumm [facility] Hgb 13.3 13.0 - 17.5 g/dL [facility] Hct 40.7 38.9 - 50.3 % [facility] Plt 301 150 - 400 K/cumm [facility] MPV 10.4 9.1 - 12.3 fL [facility] RBC 4.23(L) 4.30 - 5.80 M/cumm [facility] MCV 96.2 81.3 - 96.4 fL [facility] MCH 31.4 27.1 - 33.3 pg [facility] MCHC 32.7 32.3 - 35.7 g/dL [facility] RDW CV 13.2 11.1 - 14.9 % [facility] RDW SD 47.4 35.7 - 48.1 fL [facility] NRBC abs 0.00 0.00 - 0.01 K/cumm [facility] Blood specimen (specimen) 04/04/2020 8:59 AM CDT 04/04/2020 9:58 AM CDT Alonso Pruitt MD LAB BLOOD ORDERABLES Final Resu lt Performing Organization Address [facility] Co de Phone Number [facility] Department [place] [address] * (ABNORMAL) Hepatitis C antibody (04/04/2020 8:59 AM CDT) [facility] Hep C Ab Reactive( A) Nonreactive [facility] Comment:Positive for HCV ant ibodies.?? This may represent current or past HCV infection. Supplemental molecular testing will be automatically performed to determine ??current infection status in accordance with current CDC screening recommendations. Blood specimen (specimen) 04/04/2020 8:59 AM CDT 04/04/2020 10:01 AM CDT Alonso Pruitt MD LAB MICROBIOLOGY - GENERAL ORDE RABTONG Final Result Performing Organization Address City/[facility] Co de Phone Number [facility] [place] [address] * Varicella Zoster (VZV) IgG Blood (04/04/2020 8:59 AM CDT) VZV IgG Reactive Nonreactive [facility] Comment:IgG antibodies to Va ricella Zoster virus detected.?? This may indicate that the patient was exposed to Varicella Zoster through??infection or vaccination. Blood specimen (specimen) 04/04/2020 8:59 AM CDT 04/04/2020 9:59 AM CDT Alonso Pruitt MD LAB MICROBIOLOGY - GENERAL ORDE RABTONG Final Result Performing Organization Address [facility] Co de Phone Number [facility] [place] [address] * HSV 2 IgG Antibody Blood (04/04/2020 8:59 AM CDT) Pathologist [facility] HSV 2 IgG Reactive Nonreactive [facility] Comment: Interpretive Data 1. Negative: No detectable [...] ORDE RABLES Final Result Performing Organization Address City/[facility] [place] [address] * HSV 1 IgG Antibody Blood (04/04/2020 8:59 AM CDT) Pathologist [facility] HSV 1 IgG Reactive Nonreactive [facility] Comment: Interpretive Data 1. Nonreactive: No detectable [...] Alonso Pruitt MD LAB MICROBIOLOGY - GENERAL ORD DELLA Final Result Performing Organization Address [facility] Co de Phone Number [facility] Department [place] [address] * Hepatitis B Surface Antigen (04/04/2020 8:59 AM CDT) Pathologist [facility] HepBsAg Nonreactive Nonreactive [facility] Blood specimen (specimen) 04/04/2020 8:59 AM CDT 04/04/2020 10:01 AM CDT Alonso Pruitt MD LAB MICROBIOLOGY - GENERAL PLYMOUTHNallely HULL Edited Result - Final Performing Organization Address City/[facility]/ZIP Co de Phone Number [facility] [place] [address] * Hepatitis B surface antibody (immune status) (04/04/2020 8:59 AM CDT) Pathologist [facility] HBsAb (immune status) Nonreactive [facility] Comment: Interpretive Data Nonreactive: This result is [...] ORDE RABLES Final Result Performing Organization Address City/[facility]/ZIP Co de Phone Number [facility] [place] [address] * (ABNORMAL) Leandro Serrato virus VCA, IgG (04/04/2020 8:59 AM CDT) Pathologist [facility] EBV VCA IgG Positive( A) Negative [facility] Comment: Interpretive Data Results ? Interpretation Negative [...] MD LAB BLOOD ORDERABLES Final Resu lt [facility] [place] [address] * ECG 12 lead (04/04/2020 8:26 AM CDT) Ventricular Rate EKG/Min 52 BPM [facility] Atrial Rate 52 BPM [facility] LA-Interval (MSEC) 148 ms [facility] QRS-Interval (MSEC) 94 ms [facility] QT-Interval (MSEC) 422 ms [facility] QTc 392 ms [facility] P [place] 62 degrees [facility] R [place] 36 degrees [facility] T [place] 59 degrees [facility] Diagnosis Sinus bradycardia Otherwise normal ECG No previous ECGs available Confirmed by MADY SNOW M.D ([id number]) on 04/04/2020 3:05:49 PM [facility] 04/04/2020 8:26 AM CDT 04/04/2020 3:05 PM CDT us Alonso Pruitt MD ECG ORDERABLES Final Result [facility] documented in this encounter Visit Diagnoses Diagnosis End stage renal disease (CMS/HCC) (HCC)- Primary End stage renal disease End stage renal disease (CMS/HCC) (HCC) End stage renal disease End stage renal disease (CMS/HCC) (HCC) End stage renal disease End stage renal disease (CMS/HCC) (HCC) End stage renal disease End stage renal disease (CMS/HCC) (HCC) End stage renal disease End stage renal disease (CMS/HCC) (HCC) End stage renal disease documented in this encounter Care Teams Formation Fracturing Operator Relationship Specialty Start Date End Date Gerardo Shah MD PCP - General Internal Medicine 09/30/18 Suzette Strickland MD [address] [facility] [address] [place] [address] Referring Physician Nephrology 02/15/20 Rita Tapia, RN [address] [place] [address] Registered Nurse Electrical Tech/Project Manager 02/15/20 documented as of this encounter
--- OUTSIDE RECORDS SUMMARY | 2024-10-16 06:42 | XMS_ITS | Encounter Summary ---
Author Organization [facility] Healthcare Address [address] [place] [address] Care Team Providers Care Sound Effects Technician Name Role Phone Gerardo Shah MD Primary Care Provider [phone] Suzette Strickland MD Unavailable [phone] Rita Tapia RN Unavailable [phone] Encounter Details Date Type Department Care Team (Late st Contact Info) Description 02/16/2020 Telephone 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 Requested call back at [phone]. Returned call and LM requesting call back documented in this encounter Plan of Treatment Scheduled Procedures Name Priority Associated Diagnoses Date/Ti me TRANSPLANT KIDNEY ESRD (end stage renal disease) ([facility]) documented as of this encounter Visit Diagnoses Not on filedocumented in this encounter Care Teams Sound Effects Technician Relationship Specialty Start Date End Date Gerardo Shah MD PCP - General Internal Medicine 09/30/18 Suzette Strickland MD [address] [facility] [address] [place] [address] Referring Physician Nephrology 02/15/20 Rita Tapia, RN [address] [place], [place] [id number] Registered Nurse Organ Recovery Coordinator 02/15/20 documented as of this encounter
--- OUTSIDE RECORDS SUMMARY | 2024-10-16 06:42 | XMS_ITS | Encounter Summary ---
Author Organization [facility] Healthcare Address [address] [place] [address] Care Team Providers Care Flap Curer Name Role Phone Gerardo Shah MD Primary Care Provider [phone] Suzette Strickland MD Unavailable [phone] Rita Tapia RN Unavailable [phone] Encounter Details Date Type Department Care Team (Late st Contact Info) Description 02/15/2020 Telephone 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 documented in this encounter Plan of Treatment Scheduled Procedures Name Priority Associated Diagnoses Date/Ti me TRANSPLANT KIDNEY ESRD (end stage renal disease) ([facility]) documented as of this encounter Visit Diagnoses Not on filedocumented in this encounter Care Teams Flap Curer Relationship Specialty Start Date End Date Gerardo Shah MD PCP - General Internal Medicine 09/30/18 Suzette Strickland MD [address] [facility] [address] [place] [address] Referring Physician Nephrology 02/15/20 Rita Tapia, RN [address] [place] [address] Registered Nurse Camera Person 02/15/20 documented as of this encounter
--- OUTSIDE RECORDS SUMMARY | 2024-10-16 06:42 | XMS_ITS | Encounter Summary ---
Author Organization [facility] Medical Group Address [address] [facility] [address] [place] [address] Care Team Providers Care Supervisor Advice Name Role Phone Gerardo Shah MD Primary Care Provider [phone] Suzette Strickland MD Unavailable [phone] Rita Tapia RN Unavailable [phone] Encounter Details Date Type Department Care Team (Late st Contact Info) Description 01/07/2019 Orders Only [facility] Health Information Management [address] [place] [id number] Scanning, Provider Social History Tobacco Use Types Packs/Day Years Used Date Smoking Tobacco: Never Smokeless Tobacco: Never Alcohol Use Standard Drinks/Week Comments No 0 (1 standard drink = 0.6 oz pur e alcohol) Sex and Gender Information Value Date Recorded Sex Assigned at Not on file 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 Gender Identity Not on file Sexual Orientation Straight 05/03/2020 10 :36 AM CDT documented as of this encounter Plan of Treatment Scheduled Procedures Name Priority Associated Diagnoses Date/Ti me TRANSPLANT KIDNEY ESRD (end stage renal disease) ([facility]) documented as of this encounter Procedures Procedure Name Priority Date/Time Associated Diagnosis Comments SCAN - LABS 01/07/2019 documented in this encounter Results * SCAN - LABS (01/07/2019) us Provider Scanning Final Result documented in this encounter Visit Diagnoses Not on filedocumented in this encounter Care Teams Supervisor Advice Relationship Specialty Start Date End Date Gerardo Shah MD PCP - General Internal Medicine 09/30/18 Suzette Strickland MD [address] [facility] [address] [place] [address] Referring Physician Nephrology 02/15/20 Rita Tapia, RN [address] [place] [address] Registered Nurse Equipment Maintenance Technician 02/15/20 documented as of this encounter
--- OUTSIDE RECORDS SUMMARY | 2024-10-16 06:42 | XMS_ITS | Encounter Summary ---
Author Organization [facility] Healthcare Address [address] [place] [address] Care Team Providers Care Domestic Maid Name Role Phone Gerardo Shah MD Primary Care Provider [phone] Suzette Strickland MD Unavailable [phone] Rita Tapia RN Unavailable [phone] Encounter Details Date Type Department Care Team (Late st Contact Info) Description 02/17/2020 Telephone [facility] Transplant Kidney [address] 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 maco Almanza mgr, stated pt has [employer] contract in place, but no auth number required. Pt can proceed with Evaluation Testing. documented in this encounter Plan of Treatment Scheduled Procedures Name Priority Associated Diagnoses Date/Ti me TRANSPLANT KIDNEY ESRD (end stage renal disease) ([facility]) documented as of this encounter Visit Diagnoses Not on filedocumented in this encounter Care Teams Domestic Maid Relationship Specialty Start Date End Date Gerardo Shah MD PCP - General Internal Medicine 09/30/18 Suzette Strickland MD [address] [facility] [address] [place], [place] [id number] Referring Physician Nephrology 02/15/20 Rita Tapia, RN [address] [place], [place] [id number] Registered Nurse Street Light Wirer 02/15/20 documented as of this encounter
--- OUTSIDE RECORDS SUMMARY | 2024-10-16 06:42 | XMS_ITS | Encounter Summary ---
Author Organization [facility] Healthcare Address [address] [place] [address] Care Team Providers Care Drilling And Production Superintendent Name Role Phone Gerardo Shah MD Primary Care Provider [phone] Suzette Strickland MD Unavailable [phone] Rita Tapia RN Unavailable [phone] Encounter Details Date Type Department Care Team (Late st Contact Info) Description 03/02/[address] 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 Pt does have T&L benefits as well. documented in this encounter Plan of Treatment Scheduled Procedures Name Priority Associated Diagnoses Date/Ti me TRANSPLANT KIDNEY ESRD (end stage renal disease) ([facility]) documented as of this encounter Visit Diagnoses Not on filedocumented in this encounter Care Teams Drilling And Production Superintendent Relationship Specialty Start Date End Date Gerardo Shah MD PCP - General Internal Medicine 09/30/18 Suzette Strickland MD [address] [facility] [address] [place] [address] Referring Physician Nephrology 02/15/20 Rita Tapia, RN [address] [place], [place] [id number] Registered Nurse Chrome Plater Helper 02/15/20 documented as of this encounter
--- OUTSIDE RECORDS SUMMARY | 2024-10-16 06:42 | XMS_ITS | Encounter Summary ---
Author Organization [facility] Medical Group Address [address] [facility] [address] [place] [address] Care Team Providers Care Potato Sorter Name Role Phone Gerardo Shah MD Primary Care Provider [phone] Encounter Details Date Type Department Care Team (Late st Contact Info) Description 10/09/2018 Telephone [facility] [address] [facility] [address] [facility] [address] [place] [address] Donaldo Tee MD [address] [facility] [address] [place] [address] Social History Tobacco Use Types Packs/Day Years Used Date Smoking Tobacco: Never Assessed Sex and Gender Information Value Date Recorded Sex Assigned at Not on file Legal Sex Male 4:54 AM FISCAL AGENT Gender Identity Not on file Sexual Orientation Straight 05/03/2020 10 :36 AM CDT documented as of this encounter Miscellaneous Notes * Telephone Encounter - Ivory Ramirez RN - 10/10/2018 3:07 PM FISCAL AGENT Left message with patients mother requesting patient call to schedule EKG and blood pressure check. AL AGENT * Telephone Encounter - Cece Patel MD - 10/10/2018 2:17 PM FISCAL AGENT Pt had atypical sx and trop 6.7 on adm but coronaries were clean, so unclear what cardiac process might be going on, if any. SX have sounded more GI than cardiac. Agree w/ your assessment. Wonder if BP is running low? Can pt come by for an EKD and BP check? Please scan discharge summary and cath report into [facility]. AL AGENT * Telephone Encounter - Ivory Ramirez RN - 10/09/2018 4:56 PM FISCAL AGENT Spoke with patient. States that he gets a feeling of indigestion a couple of hours after taking medications. Patient takes medications on an empty stomach. Encouraged him to take them with food. Also takes prevacid and has since 2009. States that he does not get much sleep and has episodes where he feels he may pass out but thinks this may be due to sleep deprivation. 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 Instructed patient to contact pcp regarding the numbness and arm and leg pain as well as possible looking into an alternative medication for acid reflux. Also encouraged patient to try to get mo re rest. Patient will call if symptoms worsen. Will forward to Dr. Patel for review. AL AGENT * Telephone Encounter - Nellie Vera - 10/09/2018 4:27 PM CST Pt reports he still feels a burning his chest. Pt returned to work and has had to do a lot of taping. When sitting down pt feels like everything is draining away like he might pass out. Feeling builds up and then lasts a couple of hours after taking the medicine. Not sure if it is the medicine orsomething else causing the feeling. Pt is working tomorrow and said that we can leave a message with his mother in law Yuridia Marroquin ifhe is not in. [phone] AL AGENT documented in this encounter Plan of Treatment Scheduled Procedures Name Priority Associated Diagnoses Date/Ti me TRANSPLANT KIDNEY ESRD (end stage renal disease) ([facility]) documented as of this encounter Visit Diagnoses Not on filedocumented in this encounter Care Teams Potato Sorter Relationship Specialty Start Date End Date Gerardo Shah MD PCP - General Internal Medicine 09/30/18 documented as of this encounter
--- OUTSIDE RECORDS SUMMARY | 2024-10-16 06:42 | XMS_ITS | Encounter Summary ---
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
--- OUTSIDE RECORDS SUMMARY | 2024-10-16 06:42 | XMS_ITS | Encounter Summary ---
Author Organization [facility] Address [address] [facility] [address] [place] [address] Care Team Providers Care Tub Mender Name Role Phone Gerardo Shah MD Primary Care Provider [phone] Reason for Visit * Reason Comments Hospital Follow Up HFU chest pain, Left heart cath Encounter Details Date Type Department Care Team (Late st Contact Info) Description 12/23/2018 11:45 AM WOOL MERCHANT Office Visit [facility] [address] [address] Donaldo Tee MD [address] [facility] [address] [address] Other chest pain (Primary Dx) Social History Tobacco Use Types Packs/Day Years Used Date Smoking Tobacco: Never Smokeless Tobacco: Never Alcohol Use Standard Drinks/Week Comments No 0 (1 standard drink = 0.6 oz pur e alcohol) Sex and Gender Information Value Date Recorded Sex Assigned at Not on file Legal Sex Male 4:54 AM WOOL MERCHANT Gender Identity Not on file Sexual Orientation Straight 05/03/2020 10 :36 AM CDT documented as of this encounter Last Filed Vital Signs Vital Sign Reading Time Taken Comments Blood Pressure 110/66 12/23/2018 12:08 PM WOOL MERCHANT Pulse 54 12/23/2018 12:08 PM WOOL MERCHANT Temperature - - Respiratory Rate - - Oxygen Saturation 97% 12/23/2018 12:08 PM WOOL MERCHANT Inhaled Oxygen Concentration - - Weight 88.5 kg (195 lb) 12/23/2018 12:08 PM WOOL MERCHANT Height 190.5 cm (6' 3 ) 12/23/2018 12:08 PM WOOL MERCHANT Body Mass Index 24.37 12/23/2018 12:08 PM WOOL MERCHANT documented in this encounter Progress Notes * Donaldo Tee MD - 12/23/2018 11:45 AM CST [facility] FOLLOW UP 12/23/2018 Abel Browne is a 58 y.o. male who presents for follow up [...] for further cardiac investigation at that time The patient returns today for scheduled office follow-up. Twelve lead ECG is done in the office in his personally reviewed and is a normal tracing. He is doing very well and having no further cardiovascular symptoms. His was concerned that he might have peripheral vascular disease in the lowerextremities because he occasionally has some weakness of the legs he is not having any symptoms of exertional claudication and on physical exam he has excellent pulses in his feet. I told her that I do not see any physical exam evidence that we would need to worry about that REVIEW OF SYSTEMS General ROS: negative for [...] pruritus and rash HOME MEDICATIONS Current Outpatient Prescriptions: ??? amLODIPine (NORVASC) 5 mg tablet, Take 5 mg by mouth daily., Disp: , Rfl: ??? aspirin 81 mg tablet, Take 81 mg by mouth daily., Disp: , Rfl: ??? metoprolol (LOPRESSOR) 25 mg tablet, Take 25 mg by mouth 2 (two) times a day., Disp: , Rfl: ??? nitroglycerin (NITROSTAT) 0.4 mg SL tablet, , Disp: , Rfl: ??? omeprazole (PriLOSEC) 40 mg capsule, Take 40 mg by mouth daily., Disp: , Rfl: LABS AND OTHER DIAGNOSTIC TESTS No results found for: CHOL No results found for: HDL No results found for: LDLCALC No results found for: TRIG No results found for: CHOLHDL No results found for: WBC, HGB, HCT, MCV, PLT No lab exists for component: LABALBU PHYSICAL EXAM Vitals BP 110/66 (BP Location: Right arm, Patient Position: Sitting) Pulse 54 Ht 190.5 cm (6' 3 ) Wt 88.5 kg (195 lb) SpO2 97% BMI 24.37 kg/m?? Physical Examination: General appearance - alert, [...] noted ASSESSMENT Abel was seen today for hospital follow up. Diagnoses and all orders for this visit: Other chest pain PLAN/RECOMMENDATIONS Will continue the patient on amlodipine for his presumed history of coronary spasm but at this point he is doing very well and no further cardiac investigation is necessary I will have him come back for an appointment in 6 months or p.r.n. if he has no further symptoms going forward he will probably be followed simply by his PCP since his coronary angiograms were unremarkable Donaldo Tee MD MERCHANT documented in this encounter Miscellaneous Notes * Addendum Note - Monica Freedman MA - 12/23/2018 11:45 AM CSTAddended by: MONICA FREEDMAN on: 01/13/2019 12:54 PM Modules accepted: Orders documented in this encounter Plan of Treatment Scheduled Procedures Name Priority Associated Diagnoses Date/Ti me TRANSPLANT KIDNEY ESRD (end stage renal disease) ([facility]) documented as of this encounter Procedures Procedure Name Priority Date/Time Associated Diagnosis Comments POCT LIPID PANEL Routine 12/23/2018 12:5 0 PM WOOL MERCHANT Other chest pain ECG 12-LEAD Routine 12/23/2018 Other chest pain documented in this encounter Results * POCT lipid panel (12/23/2018 12:50 PM WOOL MERCHANT) Cholesterol, POC 141 mg/dL HDL, POC 32 mg/dL Triglycerides, POC 157 mg/dL LDL Cholesterol POC 77 mg/dL Chol/HDL Ratio, POC 4.4 Non-HDL Cholesterol, POC 109 mg/dL Cholesterol Total, POC 141 mg/dL Blood specimen (specimen) 12/23/2018 12:50 PM WOOL MERCHANT us Donaldo Tee MD POINT OF CARE TEST ORDER SARITHA Final Result * ECG 12 lead (12/23/2018) us Donaldo Tee MD ECG ORDERABLES Final Re sult documented in this encounter Visit Diagnoses Diagnosis Other chest pain- Primary documented in this encounter Historical Medications * This list may reflect changes made after this encounter. aspirin 81 mg tabletIndications: Myocardial Reinfarction Prevention Take 1 tablet (81 mg total) by mouth every morning amLODIPine (NORVASC) 5 mg tablet Take 5 mg by mouth daily. 11/27/2018 9 nitroglycerin (NITROSTAT) 0.[address] 1 tablet (0.4 mg total) under the tongue every 5 (five) minutes as needed 09/30/2018 3 omeprazole (PriLOSEC) 40 mg capsuleIndications :Treatment of Non-Bleeding Gastric Disorder Take 40 mg by mouth every morning 11/27/2018 1 metoprolol (LOPRESSOR) 25 mg tablet Take 25 mg by mouth 2 (two) times a day. 11/27/2018 9 added in this encounter Care Teams Tub Mender Relationship Specialty Start Date End Date Gerardo Shah MD PCP - General Internal Medicine 09/30/18 documented as of this encounter
--- OUTSIDE RECORDS SUMMARY | 2024-10-16 06:42 | XMS_ITS | Encounter Summary ---
Author Organization [facility] Healthcare Address [address] [place] [address] Care Team Providers Care Photographic Colorist Name Role Phone Gerardo Shah MD Primary Care Provider [phone] Suzette Strickland MD Unavailable [phone] Rita Tapia RN Unavailable [phone] Encounter Details Date Type Department Care Team (Late st Contact Info) Description 03/30/2020 Telephone [facility] Transplant Kidney [address] 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 Appt. On Saturday, she wants to know if this is still on, and if so does he need to fast, and can he take his medication. Please advise. documented in this encounter Plan of Treatment Scheduled Procedures Name Priority Associated Diagnoses Date/Ti me TRANSPLANT KIDNEY ESRD (end stage renal disease) ([facility]) documented as of this encounter Visit Diagnoses Not on filedocumented in this encounter Care Teams Photographic Colorist Relationship Specialty Start Date End Date Gerardo Shah MD PCP - General Internal Medicine 09/30/18 Suzette Strickland MD [address] [facility] [address] [place] [address] Referring Physician Nephrology 02/15/20 Rita Tapia, RN [address] [place], [place] [id number] Registered Nurse Powder Cutting Operator 02/15/20 documented as of this encounter
--- OUTSIDE RECORDS SUMMARY | 2024-10-16 06:42 | XMS_ITS | Encounter Summary ---
Author Organization [facility] Healthcare Address [address] [place] [address] Care Team Providers Care Physician Pediatrician Name Role Phone Gerardo Shah MD Primary Care Provider Suzette Strickland MD Unavailable [phone] Rita Tapia RN Unavailable [phone] Encounter Details Date Type Department Care Team (Late st Contact Info) Description 03/30/2020 Telephone [facility] Transplant Kidney [address] [facility] [address] [phone] [place], [place] [id number] Rita Tapia, RN [address] [facility] [place], [place] [id number] Social History Tobacco Use Types Packs/Day Years Used Date Smoking Tobacco: Former Cigarettes Q uit: 2018 Smokeless Tobacco: Never Alcohol Use Standard Drinks/Week Comments No 0 (1 standard drink = 0.6 oz pur e alcohol) Sex and Gender Information Value Date Recorded Sex Assigned at Not on file Legal Sex Male 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 For the testing he is scheduled for on 04/11/20 he does need to fastand hold his Metoprolol. He thought that was the case but wanted to verify. He also told me he had the consent forms with him that need to be signed and sent back to me so I asked him to bring them with him Saturday and ask one of the departments he goes to to fax them to me and gave him the fax number documented in this encounter Plan of Treatment Scheduled Procedures Name Priority Associated Diagnoses Date/Ti me TRANSPLANT KIDNEY ESRD (end stage renal disease) ([facility]) documented as of this encounter Visit Diagnoses Not on filedocumented in this encounter Care Teams Physician Pediatrician Relationship Specialty Start Date End Date Gerardo Shah MD PCP - General Internal Medicine 09/30/18 Suzette Strickland MD [address] [facility] [address] [place] [address] Referring Physician Nephrology 02/15/20 Rita Tapia, RN [address] [place] [address] Registered Nurse Cottonseed Meat Presser 02/15/20 documented as of this encounter
--- OUTSIDE RECORDS SUMMARY | 2024-10-16 06:42 | XMS_ITS | Encounter Summary ---
Author Organization [facility] Healthcare Address [address] [place] [address] Care Team Providers Care Deaf And Hard Of Hearing Teacher Name Role Phone Gerardo Shah MD Primary Care Provider [phone] Suzette Strickland MD Unavailable [phone] Rita Tapia RN Unavailable [phone] Encounter Details Date Type Department Care Team (Late st Contact Info) Description 02/18/2020 Telephone [facility] Transplant Kidney [address] 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 I am going to call him back later this afternoon when his is home from work and review evaluation. * Telephone Encounter - Rita Tapia RN - 02/18/2020 1:23 PM CDT Called pt. and I explained the evaluation process in detail and answered all of his questions. I encouraged him to call with any questions at any time throughout the evaluation process explaining to him that we want him to have informed consent. I explained any potential donors have to call our office to initiate their donor evaluation and that I cannot give him any donor results, explaining I have to give the results to the donors only. I informed the patient that other departments may call ortext to verify the appointments with them. I stressed that these appointments are not the first or only appointments for the day. The patient will need to go by the schedule they receive from the [facility]. If they have any questions or need to reschedule, they are to call the transplant department at [phone]. documented in this encounter Plan of Treatment Scheduled Procedures Name Priority Associated Diagnoses Date/Ti me TRANSPLANT KIDNEY ESRD (end stage renal disease) ([facility]) documented as of this encounter Visit Diagnoses Not on filedocumented in this encounter Care Teams Deaf And Hard Of Hearing Teacher Relationship Specialty Start Date End Date Gerardo Shah MD PCP - General Internal Medicine 09/30/18 Suzette Strickland MD [address] [facility] [address] [place] [address] Referring Physician Nephrology 02/15/20 Rita Tapia, RN [address] [place], [place] [id number] Registered Nurse Follow Up Clerk 02/15/20 documented as of this encounter
--- OUTSIDE RECORDS SUMMARY | 2024-10-16 06:42 | XMS_ITS | Encounter Summary ---
Author Organization [facility] Healthcare Address [address] [place] [address] Care Team Providers Care Pre K Teacher Name Role Phone Gerardo Shah MD Primary Care Provider [phone] Encounter Details Date Type Department Care Team (Late st Contact Info) Description 02/12/2020 Telephone [facility] Transplant Kidney [address] [facility] [address] [phone] [place], [place] [id number] Lashay Beyer Social History Tobacco Use Types Packs/Day Years Used Date Smoking Tobacco: Former Cigarettes Q uit: 2018 Smokeless Tobacco: Never Alcohol Use Standard Drinks/Week Comments No 0 (1 standard drink = 0.6 oz pur e alcohol) Sex and Gender Information Value Date Recorded Sex Assigned at Not on file Legal Sex Male 4:54 AM LINK KNITTING MACHINE OPERATOR Gender Identity Not on file Sexual Orientation Straight 05/03/2020 10 :36 AM CDT documented as of this encounter Miscellaneous Notes * Telephone Encounter - Lashay Beyer - 02/12/2020 1:21 PM CDT Pts Mother LM asking did we received paperwork if so what are the next steps? Please return patientcall 1:17 PM 02/12/2020 documented in this encounter Plan of Treatment Scheduled Procedures Name Priority Associated Diagnoses Date/Ti me TRANSPLANT KIDNEY ESRD (end stage renal disease) ([facility]) documented as of this encounter Visit Diagnoses Not on filedocumented in this encounter Care Teams Pre K Teacher Relationship Specialty Start Date End Date Gerardo Shah MD PCP - General Internal Medicine 09/30/18 documented as of this encounter
--- OUTSIDE RECORDS SUMMARY | 2024-10-16 06:42 | XMS_ITS | Encounter Summary ---
Author Organization [facility] Address [address] [facility] [address] [place] [address] Care Team Providers Care Switchbox Assembler Name Role Phone Gerardo Shah MD Primary Care Provider [phone] Suzette Strickland MD Unavailable [phone] Rita Tapia RN Unavailable [phone] Reason for Visit * Reason Comments Follow-up 6 mo fu Encounter Details Date Type Department Care Team (Late st Contact Info) Description 03/10/2020 8:45 AM CDT Office Visit [facility] Cardiology [address] [facility] 162 [facility] [address] [place] [address] Donaldo Tee MD [address] [facility] [address] [place] [address] Other chest pain (Primary Dx); BMI 26.0-26.9,adult Social History Tobacco Use Types Packs/Day Years Used Date Smoking Tobacco: Former Cigarettes Q uit: 2018 Smokeless Tobacco: Never Tobacco Cessation:Counseling Given: No Alcohol Use Standard Drinks/Week Comments No 0 (1 standard drink = 0.6 oz pur e alcohol) Sex and Gender Information Value Date Recorded Sex Assigned at Not on file Legal Sex Male 4:54 AM ELEVATOR OPERATOR 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 Gender Identity Not on file Sexual Orientation Straight 05/03/2020 10 :36 AM CDT documented as of this encounter Last Filed Vital Signs Vital Sign Reading Time Taken Comments Blood Pressure 162/86 03/10/2020 8:33 AM CDT Pulse 70 03/10/2020 8:33 AM CDT Temperature - - Respiratory Rate - - Oxygen Saturation 98% 03/10/2020 8:33 AM CDT Inhaled Oxygen Concentration - - Weight 96.2 kg (212 lb) 03/10/2020 8:33 AM CDT Height 190.5 cm (6' 3 ) 03/10/2020 8:33 AM CDT Body Mass Index 26.5 03/10/2020 8:33 AM CDT documented in this encounter Progress Notes * Donaldo Tee MD - 03/10/2020 8:45 AM CDT [facility] 03/10/2020 Abel Browne is a 60 y.o. male [...] dominant his mother had the same disease. The patient is having a six-month office visit today. According to the patient he is now undergoingworkup to see if he is a candidate for a renal transplant. He is not having any cardiac symptomatology very denies any chest pain shortness of breath orthopnea or PND. He has an appointment to see the transplant service at [place] to start evaluation disease he is a renal transplant candidate. His mo ther had a renal transplant for the same disease as mentioned above. He is therefore quite familiarwith the process of that he is also familiar with the need to take immunosuppressive agents once hereceives an organ transplant REVIEW OF SYSTEMS General ROS: negative for [...] rash HOME MEDICATIONS Current Outpatient Medications: ??? amLODIPine (NORVASC) 5 mg tablet, TAKE ONE TABLET BY MOUTH DAILY, Disp: 90 tablet, Rfl: 3 ??? aspirin 81 mg tablet, Take 81 mg by mouth daily., Disp: , Rfl: ??? cyanocobalamin (Vitamin B-12) 500 mcg tablet, Take 500 mcg by mouth daily, Disp: , Rfl: [...] for component: LABALBU PHYSICAL EXAM Vitals BP 162/86 (BP Location: Left arm, Patient Position: Sitting) Pulse 70 Ht 190.5 cm (6' 3 ) Wt 96.2 kg (212 lb) SpO2 98% BMI 26.50 kg/m?? Physical Examination: General appearance - alert, [...] orders for this visit: Other chest pain BMI 26.0-26.9,adult PLAN/RECOMMENDATIONS Continue low-dose calcium channel kathryn therapy as described above Obviously at this time his principal health problem is his advancing renal failure and potential need for a transplant kidney versus dialysis Continue to see him at 6 month intervals Donaldo Tee MD documented in this encounter Plan of Treatment Scheduled Procedures Name Priority Associated Diagnoses Date/Ti ma TRANSPLANT KIDNEY ESRD (end stage renal disease) ([facility]) documented as of this encounter Visit Diagnoses Diagnosis Other chest pain- Primary BMI 26.0-26.9,adult documented in this encounter Discontinued Medications Medication Sig Discontinue Reason Start Date End Da te cyanocobalamin (Vitamin B-12) 500 mcg tabletIndications:Prevent ion of Vitamin B12 Deficiency Take 500 mcg by mouth daily Duplicate order 03/10/2020 documented as of this encounter Historical Medications * This list may reflect changes made after this encounter. cyanocobalamin (Vitamin B-12) 1,000 mcg tabletIndications :Prevention of Vitamin B12 Deficiency Take 1 tablet (1,000 mcg total) by mouth every morning lactulose solution 10 gram/15mLIndicati ons:constipation Take 10 g by mouth as needed 02/22/2020 09/06/2020 added in this encounter Care Teams Switchbox Assembler Relationship Specialty Start Date End Date Gerardo Shah MD PCP - General Internal Medicine 09/30/18 Suzette Strickland MD [address] [facility] [address] [place] [address] Referring Physician Nephrology 02/15/20 Rita Tapia, RN [address] [place] [address] Registered Nurse Medication Aide 02/15/20 documented as of this encounter
--- OUTSIDE RECORDS SUMMARY | 2024-10-16 06:42 | XMS_ITS | Encounter Summary ---
Author Organization [facility] Healthcare Address [address] [place] [address] Care Team Providers Care Contact Center Analyst Name Role Phone Gerardo Shah MD Primary Care Provider [phone] Suzette Strickland MD Unavailable [phone] Rita Tapia RN Unavailable [phone] Encounter Details Date Type Department Care Team (Late st Contact Info) Description 03/07/2020 Documentation [facility] Transplant Kidney [address] [facility] [address] [phone] [place] [address] Erica Rosales Social History Tobacco Use Types Packs/Day Years Used Date Smoking Tobacco: Former Cigarettes Q uit: 2018 Smokeless Tobacco: Never Alcohol Use Standard Drinks/Week Comments No 0 (1 standard drink = 0.6 oz pur e alcohol) Sex and Gender Information Value Date Recorded Sex Assigned at Not on file Legal Sex Male 4:54 AM DRILLER OPERATOR Gender Identity Not on file Sexual Orientation Straight 05/03/2020 10 :36 AM CDT documented as of this encounter Progress Notes * Erica Rosales - 03/07/2020 3:27 PM CDT Mailed c/c schedules, map, booklet, stress test med list, and folder documented in this encounter Plan of Treatment Scheduled Procedures Name Priority Associated Diagnoses Date/Ti me TRANSPLANT KIDNEY ESRD (end stage renal disease) ([facility] documented as of this encounter Visit Diagnoses Not on filedocumented in this encounter Care Teams Contact Center Analyst Relationship Specialty Start Date End Date Gerardo Shah MD PCP - General Internal Medicine 09/30/18 Suzette Strickland MD [address] [facility] [address] [place] [address] Referring Physician Nephrology 02/15/20 Rita Tapia, RN [address] [place], [place] [id number] Registered Nurse Information Technology Director 02/15/20 documented as of this encounter
--- OUTSIDE RECORDS SUMMARY | 2024-10-16 06:42 | XMS_ITS | Encounter Summary ---
Author Organization [facility] Medical Group Address [address] [facility] [address] [place] [address] Care Team Providers Care Neuropsychology Division Chief Name Role Phone Gerardo Shah MD Primary Care Provider [phone] Reason for Visit * Reason Comments Follow-up 6 mo follow up on CP , h/o coronary spasm Encounter Details Date Type Department Care Team (Late st Contact Info) Description 09/01/2019 8:45 AM KAPOK MACHINE OPERATOR Office Visit [facility] [address] [address] Donaldo Tee MD [address] [facility] [address] [id number] Other chest pain (Primary Dx) Social History Tobacco Use Types Packs/Day Years Used Date Smoking Tobacco: Former Cigarettes Q uit: 2018 Smokeless Tobacco: Never Alcohol Use Standard Drinks/Week Comments No 0 (1 standard drink = 0.6 oz pur e alcohol) Sex and Gender Information Value Date Recorded Sex Assigned at Not on file Legal Sex Male 4:54 AM KAPOK MACHINE OPERATOR Gender Identity Not on file Sexual Orientation Straight 05/03/2020 10 :36 AM CDT documented as of this encounter Last Filed Vital Signs Vital Sign Reading Time Taken Comments Blood Pressure 160/84 09/01/2019 8:31 AM KAPOK MACHINE OPERATOR Pulse 60 09/01/2019 8:31 AM KAPOK MACHINE OPERATOR Temperature - - Respiratory Rate - - Oxygen Saturation 97% 09/01/2019 8:31 AM KAPOK MACHINE OPERATOR Inhaled Oxygen Concentration - - Weight 97.1 kg (214 lb) 09/01/2019 8:31 AM KAPOK MACHINE OPERATOR Height 190.5 cm (6' 3 ) 09/01/2019 8:31 AM KAPOK MACHINE OPERATOR Body Mass Index 26.75 09/01/2019 8:31 AM KAPOK MACHINE OPERATOR documented in this encounter Progress Notes * Donaldo Tee MD - 09/01/2019 8:45 AM CST [facility] FOLLOW UP 09/01/2019 Abel Browne is a 59 y.o. male who presents for follow up [...] patient returns today for scheduled office follow-up. He is overall doing well and does not describe any cardiovascular symptoms or concerns. He was concerned that he has gained some weight afterhe stopped smoking. REVIEW OF SYSTEMS General ROS: negative for [...] Medications: ??? amLODIPine (NORVASC) 5 mg tablet, Take 1 tablet (5 mg total) by mouth daily., Disp: 90 tablet, Rfl: 3 ??? aspirin 81 mg tablet, Take 81 mg by mouth daily., Disp: , Rfl: ??? cyanocobalamin (Vitamin B-12) 500 mcg tablet, Take 500 mcg by mouth daily, Disp: , Rfl: ??? metoprolol (LOPRESSOR) 25 mg tablet, Take 1 tablet (25 mg total) by mouth 2 (two) times a day.,Disp: 180 tablet, Rfl: 3 ??? nitroglycerin (NITROSTAT) [...] for component: LABALBU PHYSICAL EXAM Vitals BP 160/84 (BP Location: Left arm, Patient Position: Sitting) Pulse 60 Ht 190.5 cm (6' 3 ) Wt 97.1 kg (214 lb) SpO2 97% BMI 26.75 kg/m?? Physical Examination: General appearance - alert, [...] calcium channel kathryn therapy as described above Continue to see him at 6 month intervals Donaldo Tee MD K MACHINE OPERATOR documented in this encounter Plan of Treatment Scheduled Procedures Name Priority Associated Diagnoses Date/Ti wa TRANSPLANT KIDNEY ESRD (end stage renal disease) ([facility]) documented as of this encounter Visit Diagnoses Diagnosis Other chest pain- Primary documented in this encounter Historical Medications * This list may reflect changes made after this encounter. cyanocobalamin (Vitamin B-12) 500 mcg tabletIndications :Prevention of Vitamin B12 Deficiency Take 500 mcg by mouth daily 03/10/2020 added in this encounter Care Teams Neuropsychology Division Chief Relationship Specialty Start Date End Date Gerardo Shah MD PCP - General Internal Medicine 09/30/18 documented as of this encounter
--- OUTSIDE RECORDS SUMMARY | 2024-10-16 06:42 | XMS_ITS | Encounter Summary ---
Author Organization [facility] Medical Group Address [address] [facility] [address] [place] [address] Care Team Providers Care Senior Functional Analyst Name Role Phone Gerardo Shah MD Primary Care Provider [phone] Encounter Details Date Type Department Care Team (Late st Contact Info) Description 12/29/2018 Telephone [facility] [address] [place] [address] Donaldo Tee MD [address] [address] Social History Tobacco Use Types Packs/Day Years Used Date Smoking Tobacco: Never Smokeless Tobacco: Never Alcohol Use Standard Drinks/Week Comments No 0 (1 standard drink = 0.6 oz pur e alcohol) Sex and Gender Information Value Date Recorded Sex Assigned at Not on file Legal Sex Male 4:54 AM ARMORER TECHNICIAN Gender Identity Not on file Sexual Orientation Straight 05/03/2020 10 :36 AM CDT documented as of this encounter Ordered Prescriptions Prescription Sig Dispense Quantity Refills Last Filled Start Date End Date amLODIPine (NORVASC) 5 mg tablet Take 1 tablet (5 mg total) by mouth daily. 90 tablet 3 12/29/2018 12/20/2019 metoprolol (LOPRESSOR) 25 mg tablet Take 1 tablet (25 mg total) by mouth 2 (two) times a day. 180 tablet 3 12/29/2018 12/20/2019 documented in this encounter Miscellaneous Notes * Telephone Encounter - Neisha Conti MA - 12/29/2018 10:08 AM CST Medication sent to pharmacy. RER TECHNICIAN * Telephone Encounter - Waleska Horta - 12/29/2018 9:32 AM ARMORER TECHNICIAN Pt called requesting refills for Metoprolol 25 mg & amlodipine 5 mg tab be sent to [facility] [phone] RER TECHNICIAN documented in this encounter Plan of Treatment Scheduled Procedures Name Priority Associated Diagnoses Date/Ti me TRANSPLANT KIDNEY ESRD (end stage renal disease) ([facility]) documented as of this encounter Visit Diagnoses Not on filedocumented in this encounter Discontinued Medications Medication Sig Discontinue Reason Start Date End Da te metoprolol (LOPRESSOR) 25 mg tablet Take 25 mg by mouth 2 (two) times a day. Reorder 11/27/2018 12/29/2018 amLODIPine (NORVASC) 5 mg tablet Take 5 mg by mouth daily. Reorder 11/27/2018 12/29/2018 documented as of this encounter Care Teams Senior Functional Analyst Relationship Specialty Start Date End Date Gerardo Shah MD PCP - General Internal Medicine 09/30/18 documented as of this encounter
--- OUTSIDE RECORDS SUMMARY | 2024-10-16 06:42 | XMS_ITS | Encounter Summary ---
Author Organization [facility] Healthcare Address [address] [place] [address] Care Team Providers Care Power Grader Operator Name Role Phone Gerardo Shah MD Primary Care Provider [phone] Encounter Details Date Type Department Care Team (Late st Contact Info) Description 02/12/2020 Telephone [facility] Transplant Kidney [address] [facility] [address] [phone] [place] [address] Erica Rosales Social History Tobacco Use Types Packs/Day Years Used Date Smoking Tobacco: Former Cigarettes Q uit: 2018 Smokeless Tobacco: Never Alcohol Use Standard Drinks/Week Comments No 0 (1 standard drink = 0.6 oz pur e alcohol) Sex and Gender Information Value Date Recorded Sex Assigned at Not on file Legal Sex Male 4:54 AM WELDER OXYHYDROGEN Gender Identity Not on file Sexual Orientation Straight 05/03/2020 10 :36 AM CDT documented as of this encounter Miscellaneous Notes * Telephone Encounter - Erica Rosales - 02/12/2020 1:52 PM CDT Phone (Outgoing) Blanquita Browne () [phone] (H) Spoke with spouse, advised that mail will be checked Saturday and a follow up call will be made to advise if packet was received, provided time frame for a nurse coordinator to call documented in this encounter Plan of Treatment Scheduled Procedures Name Priority Associated Diagnoses Date/Ti me TRANSPLANT KIDNEY ESRD (end stage renal disease) ([facility]) documented as of this encounter Visit Diagnoses Not on filedocumented in this encounter Care Teams Power Grader Operator Relationship Specialty Start Date End Date Gerardo Shah MD PCP - General Internal Medicine 09/30/18 documented as of this encounter
--- OUTSIDE RECORDS SUMMARY | 2024-10-16 06:42 | XMS_ITS | Encounter Summary ---
Author Organization [facility] Medical Group Address [address] [facility] [address] [place] [address] Care Team Providers Care Accounts Receivable Clerk Name Role Phone Greardo Shah MD Primary Care Provider [phone] Suzette Strickland MD Unavailable [phone] Rita Tapia RN Unavailable [phone] Encounter Details Date Type Department Care Team (Late st Contact Info) Description 10/31/2018 Orders Only [facility] [address] [place] [address] Scanning, Provider Social History Tobacco Use Types Packs/Day Years Used Date Smoking Tobacco: Never Assessed Sex and Gender Information Value Date Recorded Sex Assigned at Not on file 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 Gender Identity Not on file Sexual Orientation Straight 05/03/2020 10 :36 AM CDT documented as of this encounter Plan of Treatment Scheduled Procedures Name Priority Associated Diagnoses Date/Ti me TRANSPLANT KIDNEY ESRD (end stage renal disease) ([facility]) documented as of this encounter Procedures Procedure Name Priority Date/Time Associated Diagnosis Comments SCAN - RADIOLOGY/IMAGING 10/31/2018 documented in this encounter Results * SCAN - RADIOLOGY/IMAGING (10/31/2018) Anatomical Region Laterality Modality Other us Provider Scanning Final Result documented in this encounter Visit Diagnoses Not on filedocumented in this encounter Care Teams Accounts Receivable Clerk Relationship Specialty Start Date End Date Gerardo Shah MD PCP - General Internal Medicine 09/30/18 Suzette Strickland MD [address] [facility] [address] [place] [address] Referring Physician Nephrology 02/15/20 Rita Tapia, RN [address] [place] [address] Registered Nurse Desizing Machine Operator 02/15/20 documented as of this encounter
--- OUTSIDE RECORDS SUMMARY | 2024-10-16 06:42 | XMS_ITS | Encounter Summary ---
Author Organization [facility] Medical Group Address [address] [facility] [address] [place] [address] Care Team Providers Care Feed Miller Name Role Phone Gerardo Shah MD Primary Care Provider [phone] Encounter Details Date Type Department Care Team (Late st Contact Info) Description 11/24/2019 Orders Only [facility] Cardiology [address] [place] [address] Provider, MD Eben [facility] [place] [phone] Social History Tobacco Use Types Packs/Day Years [...] Procedure Name Priority Date/Time Associated Diagnosis Comments LIPID PANEL Routine 09/29/2018 3:03 AM FOOD AND NUTRITION SUPERVISOR documented in this encounter Results * (ABNORMAL) Lipid panel (09/29/2018 3:03 AM FOOD AND NUTRITION SUPERVISOR) SCRIBED Cholesterol, Total 98 0 - 200 EXTERNAL LAB SCRIBED HDL 31(A) 40 - 100 EXTERNAL LAB SCRIBED LDL 66 0 - 130 EXTERNAL LAB SCRIBED Triglycerides 69 0 - 150 EXTERNAL LAB Blood specimen (specimen) us Historical Provider LAB BLOOD ORDERABLES Edit ed Result - Final EXTERNAL LAB documented in this encounter Visit Diagnoses Not on filedocumented in this encounter Care Teams Feed Miller Relationship Specialty Start Date End Date Gerardo Shah MD PCP - General Internal Medicine 09/30/18 documented as of this encounter
--- OUTSIDE RECORDS SUMMARY | 2024-10-16 06:42 | XMS_ITS | Encounter Summary ---
Author Organization [facility] Healthcare Address [address] [place] [address] Care Team Providers Care Meat Carrier Name Role Phone Gerardo Shah MD Primary Care Provider [phone] Suzette Strickland MD Unavailable [phone] Rita Tapia RN Unavailable [phone] Encounter Details Date Type Department Care Team (Late st Contact Info) Description 02/16/2020 Telephone [facility] Transplant Kidney [address] [facility] [address] [phone] [place] [address] Zhane Hatfield Social History Tobacco Use Types Packs/Day Years Used Date Smoking Tobacco: Former Cigarettes Q uit: 2018 Smokeless Tobacco: Never Alcohol Use Standard Drinks/Week Comments No 0 (1 standard drink = 0.6 oz pur e alcohol) Sex and Gender Information Value Date Recorded Sex Assigned at Not on file 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 Radha will submit request to nurse case manager and have someone call with pt's txp benefits. documented in this encounter Plan of Treatment Scheduled Procedures Name Priority Associated Diagnoses Date/Ti me TRANSPLANT KIDNEY ESRD (end stage renal disease) ([facility]) documented as of this encounter Visit Diagnoses Not on filedocumented in this encounter Care Teams Meat Carrier Relationship Specialty Start Date End Date Gerardo Shah MD PCP - General Internal Medicine 09/30/18 Suzette Strickland MD [facility] [facility] [address] [place] [address] Referring Physician Nephrology 02/15/20 Rita Tapia, RN [address] [place], [place] [id number] Registered Nurse Aircraft Charter Dispatcher 02/15/20 documented as of this encounter
--- OUTSIDE RECORDS SUMMARY | 2024-10-16 06:42 | XMS_ITS | Encounter Summary ---
Author Organization [facility] Healthcare Address [address] [place] [address] Care Team Providers Care Predictive Maintenance Technician Name Role Phone Gerardo Shah MD Primary Care Provider [phone] Suzette Strickland MD Unavailable [phone] Rita Tapia RN Unavailable [phone] Encounter Details Date Type Department Care Team (Late st Contact Info) Description 02/17/2020 Telephone 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 Dayan stated she will open [employer] contract effective today 02/17/2020 that will be valid for one year. There is not auth number until pt is admitted for actual surgery. Once pt has completed his evaluation, please fax clinical to Cami. Miller can access the [employer] website to review pt's authorization. Dayan also stated their phone numbers will be changing soon so provided her current telephone and fax as well as her email address. [email or web address] / / e-mail: [email or web address] documented in this encounter Plan of Treatment Scheduled Procedures Name Priority Associated Diagnoses Date/Ti me TRANSPLANT KIDNEY ESRD (end stage renal disease) ([facility]) documented as of this encounter Visit Diagnoses Not on filedocumented in this encounter Care Teams Predictive Maintenance Technician Relationship Specialty Start Date End Date Gerardo Shah MD PCP - General Internal Medicine 09/30/18 Suzette Strickland MD [address] [facility] [address] [place] [address] Referring Physician Nephrology 02/15/20 Rita Tapia, RN [address] [place] [address] Registered Nurse Trust Manager 02/15/20 documented as of this encounter
--- OUTSIDE RECORDS SUMMARY | 2024-10-16 06:42 | XMS_ITS | Encounter Summary ---
Author Organization [facility] Healthcare Address [address] [place] [address] Care Team Providers Care Irrigationist Name Role Phone Gerardo Shah MD Primary Care Provider [phone] Suzette Strickland MD Unavailable [phone] Rita Tapia RN Unavailable [phone] Reason for Referral * Transplant (Routine) - Closed Specialty Diagnoses / Procedures Referred By Contac t Referred To Contact Transplant Diagnoses ESRD (end stage renal disease) (CMS/HCC) (HCC) Nadja Farrell MD [address] [place] [address] Phone: tel: fax: Referral ID Status Reason Start Date Expiration Date V isits Requested Visits Authorized [id number] Closed Specialty Services Required 02/15/2020 08/26/2021 1 1 Reason for Visit * Reason Onset Date Comments Referral - Kidney Txp 02/15/2020 Encounter Details Date Type Department Care Team (Late st Contact Info) Description 02/15/2020 Telephone [facility] Transplant Kidney [address] [facility] [address] [phone] [place] [address] BrothErica jerry Referral - Kidney Txp Social History Tobacco Use Types Packs/Day Years Used Date Smoking Tobacco: Former Cigarettes Q uit: 2018 Smokeless Tobacco: Never Alcohol Use Standard Drinks/Week Comments No 0 (1 standard drink = 0.6 oz pur e alcohol) Sex and Gender Information Value Date Recorded Sex Assigned at Not on file 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 Patient is not on dialysis * Telephone Encounter - Kirstin De La Torre - 02/15/2020 9:08 AM CDT Patient : ABEL FINCH General Eligibility Information Status: Active Coverage Plan #: [id number] Group Name: [facility] Coverages Group #: [id number] [facility] CHOICE PLUS Plan Network ID: [id number] Gender: Male Relationship: Spouse Address: [address] [place] [address] Date of Last Update : 02/14/2020 Plan Begin : 10/28/2012 Subscriber : BLANQUITA FINCH Address: [address] [place] [id number] Submitter : [facility] Submitter Type: Provider Chiropractic : Active Coverage Back To Coverage List Network Coverage Level Co-Payment Deductible Co-Insurance Out of Pocket Limitations Plan Type Notes Out $0.00 Benefit Begin : 10/28/2019 40% Per Calendar Year Benefit Begin : 10/28/2019 * Telephone Encounter - Erica Rosales 02/15/2020 8:50 AM CDT Patient initially referred to coordinator Nick for Kidney Transplant Evaluation on 02/15/2020 Recipient questionnaire, JOHANA, and insurance card saved to chart Not on dialysis at this time documented in this encounter Plan of Treatment Scheduled Procedures Name Priority Associated Diagnoses Date/Ti me TRANSPLANT KIDNEY ESRD (end stage renal disease) ([facility]) Scheduled Referrals Name Type Priority Associated Diagnoses Orde r Schedule TXP referral to [facility] Eval Outpatient Referral Routine ESRD (end stage renal disease) ([facility]) Ordered: 02/15/2020 documented as of this encounter Visit Diagnoses Diagnosis ESRD (end stage renal disease) (CMS/HCC) ([facility])- Primary End stage renal disease documented in this encounter Care Teams Irrigationist Relationship Specialty Start Date End Date Gerardo Shah MD PCP - General Internal Medicine 09/30/18 Suzette Strickland MD [address] [facility] [address] [place] [address] Referring Physician Nephrology 02/15/20 Rita Tapia, RN [address] [place] [address] Registered Nurse Membership Solicitor 02/15/20 documented as of this encounter
--- OUTSIDE RECORDS SUMMARY | 2024-10-16 06:48 | XMS_ITS | Clinical Summary ---
Author Organization [facility] Address [address] [place] [address] Phone Care Team Providers Care Rn Social Work Name Role Phone Gerardo Shah MD Primary Care Provider [phone] Allergies No known active allergies Medications Medication Sig Dispensed Refills Start Date End Date Status amLODIPine (NORVASC) 5 MG tablet TAKE ONE TABLET BY MOUTH DAILY 12/20/2019 Active aspirin EC 81 MG EC tablet Take 81 mg by mouth daily Active metoprolol tartrate (LOPRESSOR) 25 MG tablet TAKE ONE TABLET BY MOUTH TWICE A DAY 12/20/2019 Active omeprazole (PriLOSEC) [address] capsule Take 40 mg by mouth daily 11/27/2018 Active Cyanocobalamin (B-12) 1000 MCG tablet Take 1,000 mcg by mouth daily Active tamsulosin (FLOMAX) 0.4 MG 24 hr capsule 07/25/2020 Acti ve Sodium Zirconium Cyclosilicate (Lokelma) 10 g pack Take by mouth 3 (three) times a week Active lidocaine-prilocaine (EMLA) 2.5-2.5 % cream APPLY TO ACCESS SITE ONE HOUR PRIOR TO TREATMENT COVER WITH PLASTIC WRAP 30 g 11 06/21/2022 Active bumetanide (BUMEX) 1 MG tablet TAKE ONE TABLET BY MOUTH DAILY 30 tablet 11 08/29/2022 Active Active Problems Problem Noted Date Diagnosed Date Acute abdominal pain 09/18/2020 Autosomal dominant polycystic kidney disease Overview (05/11/2020): Added automatically from request for surgery [id number] Chronic kidney disease stage 4 04/12/2020 Secondary hyperparathyroidism 04/12/2020 Hypertension Coronary arteriosclerosis Gastroesophageal reflux disease Vitamin B12 deficiency Immunizations Name Administration Dates Next Due Influenza, Injectable, Quadrivalent 07/28/2019 Family History Medical History Relation Comments Lung cancer Father Brain Aneurysm Mother Hypertension Mother Polycystic kidney disease Mother Polycystic kidney disease Sister Relation Status Comments Father Mother Sister Social History Tobacco Use Types Packs/Day Years Used Date Smoking Tobacco: Former Smokeless Tobacco: Never Tobacco Cessation:Counseling Given: Yes Alcohol Use Standard Drinks/Week Comments Yes 0 (1 standard drink = 0.6 oz pur e alcohol) AUDIT-C Answer Date Recorded Frequency of Alcohol Consumption 2-3 times a wee k 01/03/2020 Average Number of Drinks Not on file 020 Frequency of Binge Drinking Not on file 05/2020 Sex and Gender Information Value Date Recorded Sex Assigned at Not on file Gender Identity Not on file Sexual Orientation Not on file Last Filed Vital Signs Vital Sign Reading Time Taken Comments Blood Pressure 136/80 09/19/2020 8:37 AM GLORY HOLE TENDER Pulse - - Temperature 36.8 ??C (98.2 ??F) 09/19/2020 8:37 AM CS T Respiratory Rate 18 09/19/2020 8:37 AM GLORY HOLE TENDER Oxygen Saturation - - Inhaled Oxygen Concentration - - Weight 95.3 kg (210 lb) 09/19/2020 8:37 AM GLORY HOLE TENDER Height 190.5 cm (6' 3 ) 09/19/2020 8:37 AM GLORY HOLE TENDER Body Mass Index 26.25 09/19/2020 8:37 AM GLORY HOLE TENDER Plan of Treatment Health Maintenance Due Date Last Done Comments Influenza Vaccine (#1) 2024 Care Teams Rn Social Work Relationship Specialty Start Date End Date Gerardo Shah MD [address] [place] [address] PCP - General Internal Medicine 12/28/19
--- OUTSIDE RECORDS SUMMARY | 2024-10-16 06:48 | XMS_ITS | Encounter Summary ---
Author Organization [facility] Address [address] [place] [address] Phone Care Team Providers Care Fixing Machine Operator Name Role Phone Gerardo Shah MD Primary Care Provider [phone] Reason for Visit * Reason Comments Med Refill Encounter Details Date Type Department Care Team (Late st Contact Info) Description 08/29/2022 Refill [facility] Nephrology and Hypertension [facility], [address] [address] Suzette Strickland MD 1034 [facility], [address] [place] [address] Social History Tobacco Use Types Packs/Day Years Used Date Smoking Tobacco: Former Smokeless Tobacco: Never Alcohol Use Standard Drinks/Week Comments Yes 0 [...] on file Sexual Orientation Not on file documented as of this encounter Plan of Treatment Not on file documented as of this encounter Visit Diagnoses Not on filedocumented in this encounter Care Teams Fixing Machine Operator Relationship Specialty Start Date End Date Gerardo Shah MD [address] [place] [address] PCP - General Internal Medicine 12/28/19 documented as of this encounter
--- OUTSIDE RECORDS SUMMARY | 2024-10-16 06:48 | XMS_ITS | Encounter Summary ---
Author Organization [facility] Address [address] [place] [address] Phone Care Team Providers Care Hydraulic Strainer Operator Name Role Phone Gerardo Shah MD Primary Care Provider [phone] Encounter Details Date Type Department Care Team (Late st Contact Info) Description 11/07/2020 Telephone [facility] Nephrology and Hypertension [address] [facility], [address] [place] [address] Suzette Strickland MD [address] [facility], [address] [place] [address] Social History Tobacco Use Types Packs/Day Years [...] on file documented as of this encounter Miscellaneous Notes * Telephone Encounter - Suzette Strickland MD - 11/09/2020 4:09 PM CST I will try to stop by and seen him on dialysis and review things with him. I called dialysis centerand ordered lidocaine cream. * Telephone Encounter - Arely Sheikh - 11/08/2020 9:13 AM CST Spoke w/ pt - relayed info - Pt had more questions about when he should take his meds on dialysis days ( heart meds etc ) and wanted to know about a cream for pain? Dialysis told him to talk to you about these items. Please advise Thank you * Telephone Encounter - Suzette Strickland MD - 11/07/2020 3:37 PM CST It should be okay -- my hope is to wean him off lokelma since dialysis will do a better job of controlling his potassium. * Telephone Encounter - Arely Sheikh - 11/07/2020 3:16 PM CST Spoke w/ pt - Starts dialysis sat (11/09) - is schedule to take lokelma that day too. Wants to know if that's okay [phone] Please advise documented in this encounter Plan of Treatment Not on file documented as of this encounter Visit Diagnoses Not on filedocumented in this encounter Care Teams Hydraulic Strainer Operator Relationship Specialty Start Date End Date Gerardo Shah MD [address] [place] [address] PCP - General Internal Medicine 12/28/19 documented as of this encounter
--- OUTSIDE RECORDS SUMMARY | 2024-10-16 06:48 | XMS_ITS | Encounter Summary ---
Author Organization [facility] Address [address] [place] [address] Phone Care Team Providers Care Baby Nurse Name Role Phone Gerardo Shah MD Primary Care Provider [phone] Encounter Details Date Type Department Care Team (Late st Contact Info) Description 01/02/2022 Telephone [facility] Nephrology and Hypertension [address] [facility], [address] [place] [address] Anabell Rangel RN Social History Tobacco Use Types Packs/Day [...] encounter Miscellaneous Notes * Telephone Encounter - Anabell Rangel RN - 01/02/2022 1:55 PM CST LMOR for pt's . Per ST's instructions asked to call dialysis unit for pt's med refill * Telephone Encounter - Suzette Strickland MD - 01/02/2022 10:49 AM CST I am not sure why PCP wants me to prescribe this (since it is not a dialysis medication) but it would not be the first time I have had to do something like this -- the simplest solution would be havepatient tell his dialysis center ([facility]) and they can just call it in under my name. Thanks. * Telephone Encounter - Anabell Rangel RN - 01/02/2022 9:38 AM CST Pt's called stating PCP asked for STK to start prescribing pt's famotidine 20 mg BID. Pt uses [facility] in [place]. Pt would like 30 day supply with refills. Please advise. documented in this encounter Plan of Treatment Not on file documented as of this encounter Visit Diagnoses Not on filedocumented in this encounter Care Teams Baby Nurse Relationship Specialty Start Date End Date Gerardo Shah MD [address] [place] [address] PCP - General Internal Medicine 12/28/19 documented as of this encounter
--- OUTSIDE RECORDS SUMMARY | 2024-10-16 06:48 | XMS_ITS | Encounter Summary ---
Author Organization [facility] Address [address] [place] [address] Phone Care Team Providers Care Commissary Representative Name Role Phone Gerardo Shah MD Primary Care Provider [phone] Encounter Details Date Type Department Care Team (Late st Contact Info) Description 11/07/2020 Telephone [facility] Nephrology and Hypertension [address] [facility], [address] [place] [address] Anabell Rangel, RN Social History Tobacco Use Types Packs/Day [...] Encounter - Suzette Strickland MD - 11/07/2020 3:41 PM CST OK. * Telephone Encounter - Anabell Rangel MA - 11/07/2020 9:19 AM CST [place] [facility] called -pt's creat 6.23. STK notified documented in this encounter Plan of Treatment Not on file documented as of this encounter Visit Diagnoses Not on filedocumented in this encounter Care Teams Commissary Representative Relationship Specialty Start Date End Date Gerardo Shah MD [address] [place] [address] PCP - General Internal Medicine 12/28/19 documented as of this encounter
--- OUTSIDE RECORDS SUMMARY | 2024-10-16 06:48 | XMS_ITS | Encounter Summary ---
Author Organization [facility] Address [address] [place] [address] Phone Care Team Providers Care Local Area Network Systems Adminstrator Name Role Phone Gerardo Shah MD Primary Care Provider [phone] Reason for Visit * Reason Comments Med Refill Encounter Details Date Type Department Care Team (Late st Contact Info) Description 06/21/2022 Refill [facility] Nephrology and Hypertension [facility], [address] [address] Suzette Strickland MD 1034 [facility], [address] [place] [address] Social History Tobacco Use Types Packs/Day Years [...] on filedocumented in this encounter Care Teams Local Area Network Systems Adminstrator Relationship Specialty Start Date End Date Gerardo Shah MD [address] [place] [address] PCP - General Internal Medicine 12/28/19 documented as of this encounter
--- OUTSIDE RECORDS SUMMARY | 2024-10-16 06:48 | XMS_ITS | Encounter Summary ---
Author Organization [facility] Address [address] [place] [address] Phone Care Team Providers Care Instrument Engineer Name Role Phone Gerardo Shah MD Primary Care Provider Reason for Visit * Reason Comments Med Refill Encounter Details Date Type Department Care Team (Late st Contact Info) Description 08/01/2021 Refill [facility] Nephrology and Hypertension [facility], [address] [address] Suzette Strickland MD 1034 [facility], [address] [place] [address] Social History Tobacco Use Types Packs/Day Years [...] on filedocumented in this encounter Care Teams Instrument Engineer Relationship Specialty Start Date End Date Gerardo Shah MD [address] [place] [address] PCP - General Internal Medicine 12/28/19 documented as of this encounter
--- OUTSIDE RECORDS SUMMARY | 2024-10-16 06:48 | XMS_ITS | Encounter Summary ---
Author Organization [facility] Address [address] [place] [address] Phone Care Team Providers Care Business Development Professional Name Role Phone Gerardo Shah MD Primary Care Provider [phone] Encounter Details Date Type Department Care Team (Late st Contact Info) Description 12/22/2020 Telephone [facility] Nephrology and Hypertension [address] [facility], [address] [place] [address] Imelda Rangel MA Social History Tobacco Use Types Packs/Day Years [...] Telephone Encounter - Suzette Strickland MD - 02/16/2021 4:58 PM CDT Done * Telephone Encounter - Suzette Strickland MD - 12/26/2020 10:44 AM CST I thought I did it but I have filled out so may forms for so many patients that I am not sure; I will look through my papers to verify and take care of it if for some reason I did not do it... * Telephone Encounter - Imelda Rangel MA - 12/22/2020 1:48 PM CST Pt's , Blanquita, dropped off [employer] in [place] and is asking if they were faxed back. documented in this encounter Plan of Treatment Not on file documented as of this encounter Visit Diagnoses Not on filedocumented in this encounter Care Teams Business Development Professional Relationship Specialty Start Date End Date Gerardo Shah MD [address] [place] [address] PCP - General Internal Medicine 12/28/19 documented as of this encounter
--- OUTSIDE RECORDS SUMMARY | 2024-10-16 06:48 | XMS_ITS | Encounter Summary ---
Author Organization [facility] Address [address] [place] [address] Phone Care Team Providers Care Photographic Machine Operator Name Role Phone Gerardo Shah MD Primary Care Provider [phone] Reason for Visit * Reason Comments Med Refill Encounter Details Date Type Department Care Team (Late st Contact Info) Description 06/04/2022 Refill [facility] Nephrology and Hypertension [facility]4 [facility], [address] [address] Suzette Strickland MD 1034 [facility], [address] [place] [address] Social History Tobacco Use Types Packs/Day Years [...] filedocumented in this encounter Care Teams Photographic Machine Operator Relationship Specialty Start Date End Date Gerardo Shah MD [address] [place] [address] PCP - General Internal Medicine 12/28/19 documented as of this encounter
--- OUTSIDE RECORDS SUMMARY | 2024-10-16 06:49 | XMS_ITS | Encounter Summary ---
Author Organization [facility] Address [address] [place] [address] Phone Care Team Providers Care Process Engineer Name Role Phone Gerardo Shah MD Primary Care Provider [phone] Encounter Details Date Type Department Care Team (Late st Contact Info) Description 08/29/2020 Orders Only [facility] Nephrology and Hypertension 1034 [facility], [address] [address] Sony Rangel MD 1034 [facility], [address] [place] [address] Social History Tobacco Use Types Packs/Day Years [...] on filedocumented in this encounter Care Teams Process Engineer Relationship Specialty Start Date End Date Gerardo Shah MD [address] [place] [address] PCP - General Internal Medicine 12/28/19 documented as of this encounter
--- OUTSIDE RECORDS SUMMARY | 2024-10-16 06:49 | XMS_ITS | Encounter Summary ---
Author Organization [facility] Address [address] [place] [address] Phone Care Team Providers Care Apparel Trimmings Sales Representative Name Role Phone Gerardo Shah MD Primary Care Provider [phone] Encounter Details Date Type Department Care Team (Late st Contact Info) Description 09/05/2020 Telephone [facility] Nephrology and Hypertension [address] [facility], [address] [place] [address] Imelda Rangel MA Social History Tobacco Use [...] Telephone Encounter - Suzette Strickland MD - 09/06/2020 4:44 PM CST Discussed with patient -- will try diuretics (bumex 1mg qday) and call back in a week with how swelling is doing; not opposed to restarting flomax. Thanks. * Telephone Encounter - Imelda Rangel MA - 09/05/2020 9:28 AM CST Per Blanquita, pt is urinating frequently but not produing much. His ankles are swelling. He is not of flomax--should he restart? He is also in need of weekly lab orders. documented in this encounter Plan of Treatment Not on file documented as of this encounter Visit Diagnoses Not on filedocumented in this encounter Care Teams Apparel Trimmings Sales Representative Relationship Specialty Start Date End Date Gerardo Shah MD [address] [place] [address] PCP - General Internal Medicine 12/28/19 documented as of this encounter
--- OUTSIDE RECORDS SUMMARY | 2024-10-16 06:49 | XMS_ITS | Encounter Summary ---
Author Organization [facility] Address [address] [place] [address] Phone Care Team Providers Care Cis Coordinator Name Role Phone Gerardo Shah MD Primary Care Provider [phone] Encounter Details Date Type Department Care Team (Late st Contact Info) Description 07/01/2020 Orders Only [facility] Nephrology and Hypertension [facility]4 [facility], [address] [place] [address] Suzette Strickland MD 1034 [facility], [address] [place] [address] Social History Tobacco Use Types Packs/Day Years [...] on file documented as of this encounter Progress Notes * Suzette Strickland MD - 07/01/2020 10:56 AM CDT Called by [facility] for critical potassum and creatinine -- called patient and feeling okay; willprescribe kayexalate with repeat labs next week -- if remains an issues, will provide samples of lokelma or velatassa to patient. H documented in this encounter Plan of Treatment Not on file documented as of this encounter Visit Diagnoses Not on filedocumented in this encounter Care Teams Cis Coordinator Relationship Specialty Start Date End Date Gerardo Shah MD [address] [place] [address] PCP - General Internal Medicine 12/28/19 documented as of this encounter
--- OUTSIDE RECORDS SUMMARY | 2024-10-16 06:49 | XMS_ITS | Encounter Summary ---
Author Organization [facility] Address [address] [place] [address] Phone Care Team Providers Care Extra Gang Supervisor Name Role Phone Gerardo Shah MD Primary Care Provider [phone] Encounter Details Date Type Department Care Team (Late st Contact Info) Description 09/06/2020 Orders Only [facility] Nephrology and Hypertension [facility]4 [facility], [address] [address] Suzette Strickland MD 1034 [facility], SUITE [facility] [place] [address] Social History Tobacco Use Types Packs/Day Years [...] on filedocumented in this encounter Care Teams Extra Gang Supervisor Relationship Specialty Start Date End Date Gerardo Shah MD [address] [place] [address] PCP - General Internal Medicine 12/28/19 documented as of this encounter
--- OUTSIDE RECORDS SUMMARY | 2024-10-16 06:49 | XMS_ITS | Encounter Summary ---
Author Organization [facility] Address [address], [place] [address] Phone Care Team Providers Care Lumber Chain Offbearer Name Role Phone Gerardo Shah MD Primary Care Provider [phone] Encounter Details Date Type Department Care Team (Late st Contact Info) Description 10/03/[address] [facility] Nephrology and Hypertension [address] [facility], [address] [place] [address] Imelda Rangel MA Social History Tobacco Use [...] Telephone Encounter - Suzette Strickland MD - 10/03/2020 3:16 PM CST Ok. Thanks. Kidney function and K+ stable. * Telephone Encounter - Imelda Rangel MA - 10/03/2020 9:49 AM CST Comm [facility] called with critical creatinine of 5.59, potassium 5.2 documented in this encounter Plan of Treatment Not on file documented as of this encounter Visit Diagnoses Not on filedocumented in this encounter Care Teams Lumber Chain Offbearer Relationship Specialty Start Date End Date Gerardo Shah MD [address] [place] [address] PCP - General Internal Medicine 12/28/19 documented as of this encounter
--- OUTSIDE RECORDS SUMMARY | 2024-10-16 06:49 | XMS_ITS | Encounter Summary ---
Author Organization [facility] Address [address] [place] [address] Phone Care Team Providers Care Worsted Winder Name Role Phone Gerardo Shah MD Primary Care Provider [phone] Encounter Details Date Type Department Care Team (Late st Contact Info) Description 08/22/2020 Telephone [facility] Nephrology and Hypertension [address] [facility], [address] [place] [address] Imelda Rangel MA Social History Tobacco Use [...] Telephone Encounter - Suzette Strickland MD - 08/22/2020 2:48 PM CDT ok * Telephone Encounter - Imelda Rangel MA - 08/22/2020 11:04 AM CDT Potassium 5.4 and they are faxing all results. * Telephone Encounter - Imelda Rangel MA - 08/22/2020 10:31 AM CDT [facility] at [facility] in [place] called with critical creatinine of 5.13 from this am. documented in this encounter Plan of Treatment Not on file documented as of this encounter Visit Diagnoses Not on filedocumented in this encounter Care Teams Worsted Winder Relationship Specialty Start Date End Date Gerardo Shah MD [address] [place] [address] PCP - General Internal Medicine 12/28/19 documented as of this encounter
--- OUTSIDE RECORDS SUMMARY | 2024-10-16 06:49 | XMS_ITS | Encounter Summary ---
Author Organization [facility] Address [address] [place] [address] Phone Care Team Providers Care Project Development Leader Name Role Phone Gerardo Shah MD Primary Care Provider [phone] Encounter Details Date Type Department Care Team (Late st Contact Info) Description 11/01/2020 Telephone [facility] Nephrology and Hypertension [address] [facility], [address] [place] [address] Anabell Rangel, LEYDI Social History Tobacco Use Types Packs/Day Years [...] Telephone Encounter - Suzette Strickland MD - 11/01/2020 2:44 PM CST ok * Telephone Encounter - Anabell Rangel MA - 11/01/2020 2:28 PM CST Per pt vasc surgeon stated fistula is ready to use. STK informed. Lab req and chest x ray order faxed to jose and pt informed to have these done. Pt stated he would go tomorrow. documented in this encounter Plan of Treatment Not on file documented as of this encounter Visit Diagnoses Not on filedocumented in this encounter Care Teams Project Development Leader Relationship Specialty Start Date End Date Gerardo Shah MD [address] [place] [address] PCP - General Internal Medicine 12/28/19 documented as of this encounter
--- OUTSIDE RECORDS SUMMARY | 2024-10-16 06:49 | XMS_ITS | Encounter Summary ---
Author Organization [facility] Address [address] [place] [address] Phone Care Team Providers Care Plant Scientist Name Role Phone Gerardo Shah MD Primary Care Provider Encounter Details Date Type Department Care Team (Late st Contact Info) Description 07/29/2020 Telephone [facility] Nephrology and Hypertension [address] [facility], [address] [facility] [place] [address] Suzette Strickland MD [address] [facility], [address] [place] [address] Social History Tobacco Use Types Packs/Day Years [...] Telephone Encounter - Suzette Strickland MD - 07/31/2020 10:46 AM CDT I left samples of [facility] at [place] office for patient to pick-up next week....directions are take every Saturday, Saturday and Saturday and I will see what repeat labs show. * Telephone Encounter - Arely Aguilar - 07/29/2020 10:17 AM CDT Hospital lab called - Pt creatine 5.24 Potassium 5.8 spoke with SHIRA. Said that you were going to call in a RX for him to supervisor opening and picking and take over the weekend and that you were going to take rx samples from main office over to [place] for him to supervisor opening and picking there on Mon or wed. And to advise pt to avoid food with high potassium. Spoke with Neftaly and relayed all info. He understood. Blanquita will supervisor opening and picking samples Thank you documented in this encounter Plan of Treatment Not on file documented as of this encounter Visit Diagnoses Not on filedocumented in this encounter Care Teams Plant Scientist Relationship Specialty Start Date End Date Gerardo Shah MD [address] [place] [address] PCP - General Internal Medicine 12/28/19 documented as of this encounter
--- OUTSIDE RECORDS SUMMARY | 2024-10-16 06:49 | XMS_ITS | Encounter Summary ---
Author Organization [facility]ician [facility] Address [address] [place] [address] Phone Care Team Providers Care Commodity Manager Name Role Phone Gerardo Shah MD Primary Care Provider Encounter Details Date Type Department Care Team (Late st Contact Info) Description 11/01/2020 Orders Only [facility] Nephrology and Hypertension [address] [place] [address], [address] [id number] Suzette Strickland MD [facility]4 [facility], SU[address] [facility] [place] [address] Chronic kidney disease, Stage V (CMS-HCC) (Primary Dx); Shortness of breath Social History Tobacco Use Types Packs/Day Years [...] as of this encounter Visit Diagnoses Diagnosis Chronic kidney disease, Stage V (CMS-HCC)- Primary Chronic kidney disease, Stage V Shortness of breath documented in this encounter Care Teams Commodity Manager Relationship Specialty Start Date End Date Gerardo Shah MD [address] [place] [address] PCP - General Internal Medicine 12/28/19 documented as of this encounter
--- OUTSIDE RECORDS SUMMARY | 2024-10-16 06:49 | XMS_ITS | Encounter Summary ---
Author Organization [facility] Address [address] [place] [address] Phone Care Team Providers Care Hygiene Coordinator Name Role Phone Gerardo Shah MD Primary Care Provider [phone] Encounter Details Date Type Department Care Team (Late st Contact Info) Description 08/17/2020 Telephone [facility] Nephrology and Hypertension [facility] [facility], [address] [facility] [place] [address] Suzette Strickland MD [address] [facility], [address] [place] [address] Social History Tobacco Use Types Packs/Day Years [...] encounter Miscellaneous Notes * Telephone Encounter - Arely Sheikh - 08/19/2020 9:47 AM CDT Spoke with pt. Relayed info. He understood. * Telephone Encounter - Suzette Strickland MD - 08/18/2020 4:53 PM CDT Probably but the medication is quite pricey/expensive; I would continue the samples they have and Iwill try to send the Rx to a speciality pharmacy to see if they can get the medication at a discount rate. Please let them know. * Telephone Encounter - Arely Sheikh - 08/18/2020 10:26 AM CDT Will they need more of the lokelma? If so , will they need a script sent to pharm? Please advise * Telephone Encounter - Suzette Strickland MD - 08/17/2020 1:48 PM CDT Please let patient and/or his know the his kidney function is holding stable and his potassiumis doing much better. I would continue the lokelma (the sample medication they picked up from the office) 3 days a week (Sat/Sat/Saturday) for now. Thanks. documented in this encounter Plan of Treatment Not on file documented as of this encounter Visit Diagnoses Not on filedocumented in this encounter Care Teams Hygiene Coordinator Relationship Specialty Start Date End Date Gerardo hSah MD [address] [place] [address] PCP - General Internal Medicine 12/28/19 documented as of this encounter
--- OUTSIDE RECORDS SUMMARY | 2024-10-16 06:49 | XMS_ITS | Encounter Summary ---
Author Organization [facility] Address [address] [place] [address] Phone Care Team Providers Care Chainstitch Sewing Machine Operator Name Role Phone Gerardo Shah MD Primary Care Provider [phone] Encounter Details Date Type Department Care Team (Late st Contact Info) Description 10/04/2020 Telephone [facility] Nephrology and Hypertension [address] [facility], [address] [place] [address] Migel Diamond MA Social History Tobacco Use Types Packs/Day [...] Telephone Encounter - Suzette Strickland MD - 10/04/2020 2:45 PM CST Done -- he will continue to take it every other day. * Telephone Encounter - Migel Diamond MA - 10/04/2020 10:17 AM CST PT HAS RECEIVED THE LOKELMA SENT TO HIS HOME AND HE SPOKE TO THE REP WHO TOLD HIM HE SHOULD TAKE EVERYDAY BUT YOU HAVE HIM ON EVERY OTHER DAY. PLEASE CALL AND LET PT KNOW WHAT DOSAGE YOU WOULD LIKE HIM TO TAKE documented in this encounter Plan of Treatment Not on file documented as of this encounter Visit Diagnoses Not on filedocumented in this encounter Care Teams Chainstitch Sewing Machine Operator Relationship Specialty Start Date End Date Gerardo Shah MD [address] [place] [address] PCP - General Internal Medicine 12/28/19 documented as of this encounter
--- OUTSIDE RECORDS SUMMARY | 2024-10-16 06:49 | XMS_ITS | Encounter Summary ---
Author Organization [facility] Address [address], [place] [address] Phone Care Team Providers Care Lining Stamper Name Role Phone Gerardo Shah MD Primary Care Provider [phone] Encounter Details Date Type Department Care Team (Late st Contact Info) Description 09/19/2020 8:30 AM BLANKBOOK STITCHING MACHINE OPERATOR Office Visit [facility] Nephrology and Hypertension [address] [place] [address], [address] [place] [address] Suzette Strickland MD [address] [facility], [address] [place] [address] Chronic kidney disease, Stage V (CMS-HCC); Autosomal dominant polycystic kidney disease; Hyperkalemia; Essential (primary) hypertension Social History Tobacco Use Types Packs/Day Years [...] on file documented as of this encounter Last Filed Vital Signs Vital Sign Reading Time Taken Comments Blood Pressure 136/80 09/19/2020 8:37 AM BLANKBOOK STITCHING MACHINE OPERATOR Pulse - - Temperature 36.8 ??C (98.2 ??F) 09/19/2020 8:37 AM CS T Respiratory Rate 18 09/19/2020 8:37 AM BLANKBOOK STITCHING MACHINE OPERATOR Oxygen Saturation - - Inhaled Oxygen Concentration - - Weight 95.3 kg (210 lb) 09/19/2020 8:37 AM BLANKBOOK STITCHING MACHINE OPERATOR Height 190.5 cm (6' 3 ) 09/19/2020 8:37 AM BLANKBOOK STITCHING MACHINE OPERATOR Body Mass Index 26.25 09/19/2020 8:37 AM BLANKBOOK STITCHING MACHINE OPERATOR documented in this encounter Progress Notes * Suzette Strickland MD - 09/19/2020 8:30 AM CST FOLLOW-UP OFFICE VISIT Patient: Abel Browne Birthdate: 1960 PCP: Gerardo Shah MD INTERIM HISTORY Abel Browne here for follow-up regarding his chronic kidney disease secondary to polycysytic kidney disease. Since last seen, he had his right nephrectomy which was complicated by a wound infection. He also saw Vascular Surgery had a AV access placed in anticipation of his eventual need for renal replacement therapy. He was also was started on samples of lokelma in an effort to control his hyperkalemia. Otherwise, he feels about the same since I last saw him. No acute distress or concerns to report atthis time. Past medical history, social history and family history has not changed since previous visit. ALLERGIES No Known Allergies MEDICATIONS Current Outpatient Medications: ??? Sodium Zirconium Cyclosilicate (Lokelma) 10 g pack, Take by mouth 3 (three) times a week, Disp:, Rfl: ??? amLODIPine (NORVASC) 5 MG tablet, TAKE ONE TABLET BY MOUTH DAILY, Disp: , Rfl: ??? aspirin EC 81 MG EC tablet, Take 81 mg by mouth daily, Disp: , Rfl: ??? bumetanide (BUMEX) 1 MG tablet, Take 1 tablet (1 mg total) by mouth 1 (one) time each day, Disp: 30 tablet, Rfl: 11 ??? Cyanocobalamin (B-12) 1000 MCG tablet, Take 1,000 mcg by mouth daily, Disp: , Rfl: ??? metoprolol tartrate (LOPRESSOR) 25 MG tablet, TAKE ONE TABLET BY MOUTH TWICE A DAY, Disp: , Rfl: ??? omeprazole (PriLOSEC) [address] capsule, Take 40 mg by mouth daily, Disp: , Rfl: ??? tamsulosin (FLOMAX) 0.4 MG 24 hr capsule, , Disp: , Rfl: REVIEW OF SYSTEMS Constitutional: No fever, weight loss or gain, no fatigue. No loss of appetite. Cardiovascular: No chest pain. No Orthopnea, PND. Respiratory: No cough, no sputum production, no SOB or NUNEZ. : No dysuria or gross hematuria. No frequency or urgency. No nocturia. Skin: No rash or itching. VITALS BP 136/80 (BP Location: Right arm, Patient Position: Sitting) Temp 98.2 ??F (36.8 ??C) Resp 18 Ht 6' 3 (1.905 m) Wt 210 lb (95.3 kg) BMI 26.25 kg/m?? BSA 2.25 m?? PHYSICAL EXAM General: Comfortable and in no acute distress Cardiovascular: Normal S1, S2; no rub Respiratory: Clear bilaterally Abdominal: Soft, non-tender, mild distended; positive bowel sounds Extremities: No cyanosis, clubbing; 1+ edema Skin: Warm and intact RECENT LABS/IMAGING Lab Results Component Value Date BUN 81 09/12/2020 CREATININE 6.15 09/12/2020 EGFRAA 10 09/12/2020 EGFR 9 09/12/2020 NA 141 09/12/2020 K 5.5 09/12/2020 CL 107 09/12/2020 CO2 23 09/12/2020 CA 8.2 09/12/2020 PHOSPHATE 4.5 09/12/2020 ALBUMIN 4.2 09/12/2020 GLUCOSE 114 09/12/2020 PROTCREATUR 284 05/04/2020 PTH 75 02/15/2020 VITD 25 02/15/2020 03/02/20 MRI/MRA of brain: unremarkable MRI/MRA of brain 10/31/18 Abdomen U/S: right kidney 18.9cm, left kidney 20.5cm; both kidneys filled with numerous cysts; few cysts in the liver noted; this is consistent with autosomal dominant polycystic kidney disease. Creatinine, Serum/Plasma Date Value Ref Range Status 09/12/2020 6.15 mg/dL Final 09/05/2020 5.57 mg/dL Final 08/29/2020 5.4 mg/dL Final 08/15/2020 5.01 mg/dL Final 08/08/2020 5.01 mg/dL Final 07/29/2020 5.24 mg/dL Final 05/04/2020 3.06 mg/dL Final 02/15/2020 2.46 mg/dL Final 12/21/2019 2.6 mg/dL Final 03/18/2019 2.37 mg/dL Final ASSESSMENT AND PLAN 1. Chronic kidney disease, Stage V (CMS-HCC) 2. Autosomal dominant polycystic kidney disease 3. Hyperkalemia 4. Essential (primary) hypertension Abel has chronic kidney disease secondary to his known diagnosis of polycystic kidney disease. ?? Unfortunately, as evidenced by the trend of his blood tests, his kidney function has been slowly deteriorating over the last two years. I suspect this is just the natural progression of his polycystic kidney disease with regard to the numerous cysts obstructing normal renal tissue. This is likely worsened by the recent addition of diuretic therapy given his issues/problems with swelling/edema. ?? To help reduce the rate of kidney deterioration: Control BP: follow trend Control LDL cholesterol: per PCP Control Intact PTH: in range; mildly low Vitamin D (by last check) Use ED/ARB: hold for now Low protein diet: follow trend ?? Benefits of slowing renal deterioration reviewed with patient in laymen's terms. Lowering blood pressure, controlling diabetes, and controlling cholesterol reduce insults to the kidney. Low protein diet helps take excess workload off of the kidney. ED/ARB help to decrease pressure in kidney and also decrease hormones that cause scar formation. Blood Pressure for this visit is 136/80. The follow up plan to address blood pressure is follow trend. Body mass index is 26.25 kg/m??. Follow up plan to address BMI is diet/exercise. Despite advanced kidney disease, electrolytes and volume status stable and no issues with uremia asof yet so no need for urgent renal replacement therapy/dialysis. Continue current medications Repeat labs prior to next visit Malinda Strickland MD documented in this encounter Plan of Treatment Not on file documented as of this encounter Procedures Procedure Name Priority Date/Time Associated Diagnosis Comments RENAL FUNCTION PANEL (RFP) Routine 09/12/2020 RENAL FUNCTION PANEL (RFP) Routine 09/05/2020 RENAL FUNCTION PANEL (RFP) Routine 08/29/2020 RENAL FUNCTION PANEL (RFP) Routine 08/22/2020 RENAL FUNCTION PANEL (RFP) Routine 08/15/2020 RENAL FUNCTION PANEL (RFP) Routine 08/08/2020 RENAL FUNCTION PANEL (RFP) Routine 07/29/2020 documented in this encounter Results * Renal Function Panel (RFP) (09/12/2020) Albumin, Serum/Plasma 4.2 g/L EXTERNAL LAB (NON-INTERFACE D) Calcium, Serum/Plasma 8.2 mg/dL EXTERNAL LAB (NON-INTERFACE D) Carbon dioxide CO2), total, Serum/Plasma 23 mmol/L EXTERNAL LAB (NON-INTERFACE D) Chloride, Serum/Plasma 107 mmol/L EXTERNAL LAB (NON-INTERFACE D) Creatinine, Serum/Plasma 6.15 mg/dL EXTERNAL LAB (NON-INTERFACE D) Glucose, Serum/Plasma 114 mg/dL EXTERNAL LAB (NON-INTERFACE D) Phosphate, Serum/Plasma 4.5 mg/dL EXTERNAL LAB (NON-INTERFACE D) Potassium, Serum/Plasma 5.5 mmol/L EXTERNAL LAB (NON-INTERFACE D) Sodium, Serum/Plasma 141 mmol/L EXTERNAL LAB (NON-INTERFACE D) Urea nitrogen, Serum/Plasma (BUN) 81 mg/dL EXTERNAL LAB (NON-INTERFACE D) eGFR, non 9 mL/min EXTERNAL LAB (NON-INTERFACE D) eGFR, 10 mL/min EXTERNAL LAB (NON-INTERFACE D) Blood (Blood, Venous) Historical Provider MD LAB BLOOD ORDERAB LES EXTERNAL LAB (NON-INTERFACED) * Renal Function Panel (RFP) (09/05/2020) Creatinine, Serum/Plasma 5.57 mg/dL EXTERNAL LAB (NON-INTERFACE D) Blood (Blood, Venous) Historical Provider MD LAB BLOOD ORDERAB LES EXTERNAL LAB (NON-INTERFACED) * Renal Function Panel (RFP) (08/29/2020) Creatinine, Serum/Plasma 5.4 mg/dL EXTERNAL LAB (NON-INTERFACE D) Blood (Blood, Venous) Historical Provider MD LAB BLOOD ORDERAB LES Performing Organization Address [facility] Co de Phone Number EXTERNAL LAB (NON-INTERFACED) * Renal Function Panel (RFP) (08/22/2020) Urea nitrogen, Serum/Plasma (BUN) 5.13 mg/dL EXTERNAL LAB (NON-INTERFACE D) Blood (Blood, Venous) Historical Provider MD LAB BLOOD ORDERAB LES Performing Organization Address [facility] de Phone Number EXTERNAL LAB (NON-INTERFACED) * Renal Function Panel (RFP) (08/15/2020) Creatinine, Serum/Plasma 5.01 mg/dL EXTERNAL LAB (NON-INTERFACE D) Blood (Blood, Venous) Historical Provider MD LAB BLOOD ORDERAB LES Performing Organization Address [facility] de Phone Number EXTERNAL LAB (NON-INTERFACED) * Renal Function Panel (RFP) (08/08/2020) Creatinine, Serum/Plasma 5.01 mg/dL EXTERNAL LAB (NON-INTERFACE D) Blood (Blood, Venous) Historical Provider MD LAB BLOOD ORDERAB LES Performing Organization Address [facility] Co de Phone Number EXTERNAL LAB (NON-INTERFACED) * Renal Function Panel (RFP) (07/29/2020) Creatinine, Serum/Plasma 5.24 mg/dL EXTERNAL LAB (NON-INTERFACE D) Blood (Blood, Venous) Historical Provider MD LAB BLOOD ORDERAB LES Performing Organization Address [facility] Co de Phone Number EXTERNAL LAB (NON-INTERFACED) documented in this encounter Visit Diagnoses Diagnosis Chronic kidney disease, Stage V ([facility]) Chronic kidney disease, Stage V Autosomal dominant polycystic kidney disease Hyperkalemia Essential (primary) hypertension documented in this encounter Care Teams Lining Stamper Relationship Specialty Start Date End Date Gerardo Shah MD [address] [place] [id number] PCP - General Internal Medicine 12/28/19 documented as of this encounter
--- OUTSIDE RECORDS SUMMARY | 2024-10-16 06:49 | XMS_ITS | Encounter Summary ---
Author Organization [facility] Address [address] [place] [address] Phone Care Team Providers Care Legal Service Specialist Name Role Phone Gerardo Shah MD Primary Care Provider [phone] Encounter Details Date Type Department Care Team (Late st Contact Info) Description 10/31/2020 Telephone [facility] Nephrology and Hypertension [address] [facility], [address] [place] [address] Imelda Rangel MA Social History Tobacco Use [...] Encounter - Suzette Strickland MD - 11/01/2020 9:42 AM CST Discussed with patient last night -- some early uremic symptoms noted. Instructed to call vascular surgeon to assess if his arm access is ready to use or not (otherwise he will need an HD catheter); I will need to order the hepatitis studies and CXR and will need to inform [facility] -- I think he is interested in [facility]. He will call back about if his AVF is ready to use. * Telephone Encounter - Anabell Rangel MA - 10/31/2020 9:53 AM CST Spoke to pt's and per pt is experiencing increased swelling, itchy skin and muscle cramps. Per pt should probably start dialysis. would like [facility] to call and discuss with pt. Pt has a dentist appt today at 11 so will be unavailable For a bit around that time. Please call * Telephone Encounter - Imelda Rangel MA - 10/31/2020 9:04 AM CST Comm Hosp lab called with creatinine of 5.87, potassium 5.1. [facility] notified. documented in this encounter Plan of Treatment Not on file documented as of this encounter Visit Diagnoses Not on filedocumented in this encounter Care Teams Legal Service Specialist Relationship Specialty Start Date End Date Gerardo Shah MD [address] [place] [address] PCP - General Internal Medicine 12/28/19 documented as of this encounter
--- OUTSIDE RECORDS SUMMARY | 2024-10-16 06:49 | XMS_ITS | Encounter Summary ---
Author Organization [facility] Address [address], [place] [address] Phone Care Team Providers Care Voice Engineer Name Role Phone Gerardo Shah MD Primary Care Provider [phone] Encounter Details Date Type Department Care Team (Late st Contact Info) Description 05/11/2020 8:30 AM CDT Office Visit [facility] Nephrology and Hypertension [address] [place] [address], [address] [place] [address] Suzette Strickland MD [address] [facility], [address] [place] [address] Chronic kidney disease stage 4 (CMS-HCC); Autosomal dominant polycystic kidney disease; Essential (primary) hypertension Social History Tobacco Use [...] Sign Reading Time Taken Comments Blood Pressure 134/74 05/11/2020 8:31 AM CDT Pulse - - Temperature 36.9 ??C (98.5 ??F) 05/11/2020 8:31 AM CD T Respiratory Rate 18 05/11/2020 8:31 AM CDT Oxygen Saturation - - Inhaled Oxygen Concentration - - Weight 97.5 kg (215 lb) 05/11/2020 8:31 AM CDT Height 190.5 cm (6' 3 ) 05/11/2020 8:31 AM CDT Body Mass Index 26.87 05/11/2020 8:31 AM CDT documented in this encounter Progress Notes * Suzette Strickland MD - 05/11/2020 8:30 AM CDT FOLLOW-UP OFFICE VISIT Patient: Abel Browne Birthdate: 1960 PCP: Gerardo Shah MD Visit Date: 05/11/2020 INTERIM HISTORY Abel Browne here for follow-up regarding his 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 He was seen about 6 weeks ago for initial evaluation of this issue. He seems to be feeling about the same since I last saw him. No apparent distress or concerns expressed at this time. No issues or problems conveyed on this clinic visit. Past medical history, social history and family history has not changed since previous visit. Has been seen by [facility] for evaluation and is tentatively scheduled for a right nephrectomy in May 2020. ALLERGIES No Known Allergies MEDICATIONS Current Outpatient Medications: ??? amLODIPine (NORVASC) 5 MG tablet, TAKE ONE TABLET BY MOUTH DAILY, Disp: , Rfl: ??? aspirin EC 81 MG EC tablet, Take 81 mg by mouth daily, Disp: , Rfl: ??? Cyanocobalamin (B-12) 1000 MCG tablet, Take 1,000 mcg by mouth daily, Disp: , Rfl: ??? lactulose (CHRONULAC) 10 GM/15ML solution, Take 15 mL (10 g total) by mouth 1 (one) time each day, Disp: 450 mL, Rfl: 5 ??? metoprolol tartrate (LOPRESSOR) 25 MG tablet, TAKE ONE TABLET BY MOUTH TWICE A DAY, Disp: , Rfl: ??? omeprazole (PriLOSEC) [address] capsule, Take 40 mg by mouth daily, Disp: , Rfl: REVIEW OF SYSTEMS Constitutional: No fever, weight loss or gain, no fatigue. No loss of appetite. Cardiovascular: No chest pain. No Orthopnea, PND. Respiratory: No cough, no sputum production, no SOB or NUNEZ. : No dysuria or gross hematuria. No frequency or urgency. No nocturia. Skin: No rash or itching. VITALS BP 134/74 (BP Location: Right arm, Patient Position: Sitting) Temp 98.5 ??F (36.9 ??C) Resp 18 Ht 6' 3 (1.905 m) Wt 215 lb (97.5 kg) BMI 26.87 kg/m?? BSA 2.27 m?? PHYSICAL EXAM General: Comfortable and in no acute distress Cardiovascular: Normal S1, S2; no rub Respiratory: Clear bilaterally Abdominal: Soft, non-tender, mild distended; positive bowel sounds Extremities: No cyanosis, clubbing, or edema Skin: Warm and dry RECENT LABS/IMAGING Lab Results Component Value Date BUN 53 05/04/2020 CREATININE 3.06 05/04/2020 EGFRAA 24 05/04/2020 EGFR 21 05/04/2020 NA 142 05/04/2020 K 5.0 05/04/2020 CL 106 05/04/2020 CO2 27 05/04/2020 CA 9.1 05/04/2020 PHOSPHATE 4.4 05/04/2020 ALBUMIN 4.0 05/04/2020 GLUCOSE 101 05/04/2020 PROTCREATUR 284 05/04/2020 PTH 75 02/15/2020 VITD 25 02/15/2020 03/02/20 MRI/MRA of brain: unremarkable MRI/MRA of brain 10/31/18 Abdomen U/S: right kidney 18.9cm, left kidney 20.5cm; both kidneys filled with numerous cysts; few cysts in the liver noted; this is consistent with autosomal dominant polycystic kidney disease. Creatinine, Serum/Plasma Date Value Ref Range Status 05/04/2020 3.06 mg/dL Final 02/15/2020 2.46 mg/dL Final 12/21/2019 2.6 mg/dL Final 03/18/2019 2.37 mg/dL Final 11/03/2018 1.6 mg/dL Final 10/27/2018 1.77 mg/dL Final ASSESSMENT AND PLAN 1. Chronic kidney disease stage 4 (CMS-HCC) 2. Autosomal dominant polycystic kidney disease 3. Essential (primary) hypertension Abel has chronic kidney disease secondary to his known diagnosis of polycystic kidney disease. ?? Unfortunately, as evidenced by the trend of his blood tests, his kidney function has been slowly deteriorating over the last two years. I suspect this is just the natural progression of his polycystic kidney disease with regard to the numerous cysts obstructing normal renal tissue. ?? To help reduce the rate of kidney deterioration: Control BP: follow trend Control LDL cholesterol: per PCP Control Intact PTH: in range; mildly low Vitamin D Use ED/ARB: hold for now Low protein diet: follow trend ?? Benefits of slowing renal deterioration reviewed with patient in laymen's terms. Lowering blood pressure, controlling diabetes, and controlling cholesterol reduce insults to the kidney. Low protein diet helps take excess workload off of the kidney. ED/ARB help to decrease pressure in kidney and also decrease hormones that cause scar formation. ?? Given his advanced kidney disease, I do not think he is a candidate for Jynarque as I suspect the risk outweighs the benefit. Blood Pressure for this visit is 134/74. The follow up plan to address blood pressure is follow trend. Body mass index is 26.87 kg/m??. Follow up plan to address BMI is diet/exercise. Continue current medications Repeat labs prior to next visit Malinda Strickland MD documented in this encounter Plan of Treatment Not on file documented as of this encounter Procedures Procedure Name Priority Date/Time Associated Diagnosis Comments TOTAL PROTEIN W/ CREATININE, URINE, RANDOM Routine 05/04/2020 RENAL FUNCTION PANEL (RFP) Routine 05/04/2020 documented in this encounter Results * Total Protein w/ Creatinine, Urine, Random (05/04/2020) Protein/Creati nine, Urine 284 mg/g creatinine EXTERNAL LAB (NON-INTERFAC ED) Historical Provider LAB URINE ORDERAB LES EXTERNAL LAB (NON-INTERFACED) * Renal Function Panel (RFP) (05/04/2020) Albumin, Serum/Plasma 4.0 g/L EXTERNAL LAB (NON-INTERFACE D) Calcium, Serum/Plasma 9.1 mg/dL EXTERNAL LAB (NON-INTERFACE D) Carbon dioxide CO2), total, Serum/Plasma 27 mmol/L EXTERNAL LAB (NON-INTERFACE D) Chloride, Serum/Plasma 106 mmol/L EXTERNAL LAB (NON-INTERFACE D) Creatinine, Serum/Plasma 3.06 mg/dL EXTERNAL LAB (NON-INTERFACE D) Glucose, Serum/Plasma 101 mg/dL EXTERNAL LAB (NON-INTERFACE D) Phosphate, Serum/Plasma 4.4 mg/dL EXTERNAL LAB (NON-INTERFACE D) Potassium, Serum/Plasma 5.0 mmol/L EXTERNAL LAB (NON-INTERFACE D) Sodium, Serum/Plasma 142 mmol/L EXTERNAL LAB (NON-INTERFACE D) Urea nitrogen, Serum/Plasma (BUN) 53 mg/dL EXTERNAL LAB (NON-INTERFACE D) eGFR, non 21 mL/min EXTERNAL LAB (NON-INTERFACE D) eGFR, 24 mL/min EXTERNAL LAB (NON-INTERFACE D) Blood (Blood, Venous) Historical Provider LAB BLOOD ORDERAB LES EXTERNAL LAB (NON-INTERFACED) documented in this encounter Visit Diagnoses Diagnosis Chronic kidney disease stage 4 (CMS-HCC) Autosomal dominant polycystic kidney disease Essential (primary) hypertension documented in this encounter Care Teams Voice Engineer Relationship Specialty Start Date End Date Gerardo Shah MD [address] [place] [address] PCP - General Internal Medicine 12/28/19 documented as of this encounter
--- OUTSIDE RECORDS SUMMARY | 2024-10-16 06:49 | XMS_ITS | Encounter Summary ---
Author Organization [facility] Address [address] [place] [address] Phone Care Team Providers Care Labor Economics Professor Name Role Phone Gerardo Shah MD Primary Care Provider [phone] Encounter Details Date Type Department Care Team (Late st Contact Info) Description 09/30/2020 Orders Only [facility] Nephrology and Hypertension [facility], [address] [address] Suzette Strickland MD [address] [facility], [address] [facility] [place] [address] Social History Tobacco Use Types Packs/Day Years [...] on filedocumented in this encounter Care Teams Labor Economics Professor Relationship Specialty Start Date End Date Gerardo Shah MD [address] [place] [address] PCP - General Internal Medicine 12/28/19 documented as of this encounter
--- OUTSIDE RECORDS SUMMARY | 2024-10-16 06:49 | XMS_ITS | Encounter Summary ---
Author Organization [facility] Address [address], [place] [address] Phone Care Team Providers Care Director Of Student Financial Aid Name Role Phone Gerardo Shah MD Primary Care Provider [phone] Encounter Details Date Type Department Care Team (Late st Contact Info) Description 01/04/2020 10:00 AM CDT Office Visit [facility] Nephrology and Hypertension [address] [place] [address], [address] [place] [address] Suzette Strickland MD [address] [facility], [address] [place] [address] Chronic kidney disease stage 4 (CMS-HCC); Autosomal [...] Sign Reading Time Taken Comments Blood Pressure 136/72 01/04/2020 10:14 AM CDT Pulse - - Temperature 37 ??C (98.6 ??F) 01/04/2020 10:14 AM CDT Respiratory Rate 18 01/04/2020 10:14 AM CDT Oxygen Saturation - - Inhaled Oxygen Concentration - - Weight 96.2 kg (212 lb) 01/04/2020 10:14 AM CDT Height 190.5 cm (6' 3 ) 01/04/2020 10:14 AM CDT Body Mass Index 26.5 01/04/2020 10:14 AM CDT documented in this encounter Progress Notes * Suzette Strickland MD - 01/04/2020 10:00 AM CDT NEW PATIENT CONSULTATION Patient: Abel Browne Birthdate: 1960 Referring Provider: Gerardo Shah MD PCP: Gerardo Shah MD Visit Date: 01/04/2020 CHIEF COMPLAINT 1. Chronic kidney disease 2. Polycystic kidney disease HISTORY OF PRESENT ILLNESS Abel Browne is a 59 y.o. male with a past medical history as outlined below whopresents for further evaluation of his known chronic kidney disease due to his polycystic kidney disease. The patient had a recent emergency room visit at [facility] for chest pain. He had routine labs done that demonstrated his creatinine to be higher than his previous readings and on follow-up with his primary care physician, it was recommended that he see nephrology for this issue as well as his known history of polycystic kidney disease. Hence, renal consultation/referral was requested. The patient has had documented evidence of polycystic kidney disease at least as far back as 2019 if not longer. His creatinine has been abnormal since at least 2018 if not longer as well. In spite of these issues, he has never had any extra renal issues/problems related to these two conditions. From review his records, he was seen by Dr. Sony Rangel during his hospitalization at [facility] in 2019. His evaluation at time demonstrated that his kidney disease was likely secondary to thepolycystic kidney disease rather than some type of glomerulonephritis or autoimmune disorder. He has no history of recent hospitalizations, IV contrast/dye exposure, or new medications with regard to NSAIDs or antibiotics. He denies any issues with hematuria, dysuria, nephrolithiasis, CVA/flank pain or trauma, foamy urine, frequent urinary tract infections, or urinary incontinence. He reports no other systemic issues/symptoms with regard to fevers, chills, blurry vision, headaches, abdominal pain, nausea, vomiting, diarrhea, chest pain, shortness of breath, palpitations, dizziness, or lightheadedness. Major complaint is that of fatigue. Currently, on this clinic visit, he appears in no distress. PAST MEDICAL HISTORY Diagnosis ??? Autosomal dominant polycystic kidney disease ??? Coronary arteriosclerosis ??? Gastroesophageal reflux disease ??? Hypertension ??? Vitamin B12 deficiency ALLERGIES No Known Allergies MEDICATIONS Current Outpatient Medications: ??? amLODIPine (NORVASC) 5 MG tablet, TAKE ONE TABLET BY MOUTH DAILY, Disp: , Rfl: ??? metoprolol tartrate (LOPRESSOR) 25 MG tablet, TAKE ONE TABLET BY MOUTH TWICE A DAY, Disp: , Rfl: ??? omeprazole (PriLOSEC) [address] capsule, Take 40 mg by mouth daily, Disp: , Rfl: ??? aspirin EC 81 MG EC tablet, Take 81 mg by mouth daily, Disp: , Rfl: ??? Cyanocobalamin (B-12) 1000 MCG tablet, Take 1,000 mcg by mouth daily, Disp: , Rfl: SOCIAL HISTORY Tobacco Use ??? Smoking status: Former Smoker ??? Smokeless tobacco: Never Used Substance Use Topics ??? Alcohol use: Yes Frequency: 2-3 times a week ??? Drug use: Not on file FAMILY HISTORY ??? Brain Aneurysm Mother ??? Hypertension Mother ??? Lung cancer Father REVIEW OF SYSTEMS Constitutional: No fever, weight loss or gain, no fatigue. No loss of appetite. Eyes: No sudden change in vision, eye pain, or light sensitivity ENMT: No ringing in ear, no nasal drainage. Cardiovascular: No chest pain. No Orthopnea, PND. Respiratory: No cough, no sputum production, no SOB or NUNEZ. GI: No abdominal pain. No tenderness or masses. : No dysuria or gross hematuria. No frequency or urgency. No nocturia. Musculoskeletal: No weakness, cramps, or muscle aches. No joint pain. Skin: No rash or itching. Neurologic: No weakness, tingling, or numbness in extremities. No seizures. Psychiatric: Not depressed, no suicidal ideation, generally satisfied with life. Endocrine: No excessive thirst or hunger. Not excessively hot or cold. Hematologic: No abnormal bruising or bleeding. Immunologic: No seasonal allergy/hay fever, no abnormal rashes, no excessive itching. VITALS BP 134/72 (BP Location: Right arm, Patient Position: Sitting) Temp 98.6 ??F (37 ??C) Resp 18 Ht 6' 3 (1.905 m) Wt 212 lb (96.2 kg) BMI 26.50 kg/m?? BSA 2.26 m?? PHYSICAL EXAM Head: Atraumatic, normocephalic Eyes: PERRLA, anicteric sclerae, moist conjuntivae ENMT: Moist mucous membranes, no oral lesions or exudates Neck: Supple, no tenderness or masses Cardiovascular: Normal S1, S2; no rub Respiratory: Clear bilaterally Abdominal: Soft, non-tender, non-distended; positive bowel sounds Skin: No rash, bruising, or excoriations Extremities: No cyanosis, clubbing, or edema Functional: Comfortable and in no acute distress Cognitive: Cranial nerves 2-12 intact, no focal musculoskeletal or sensory deficits noted Psychological: Appropriate affect, alert and oriented to person, place and time RECENT LABS/IMAGES Lab Results Component Value Date BUN 36 12/21/2019 CREATININE 2.6 12/21/2019 EGFRAA 30 12/21/2019 EGFR 25 12/21/2019 NA 140 12/21/2019 K 4.5 12/21/2019 CL 104 12/21/2019 CO2 26 12/21/2019 CA 9.3 12/21/2019 GLUCOSE 99 12/21/2019 Creatinine, Serum/Plasma Date Value Ref Range Status 12/21/2019 2.6 mg/dL Final 03/18/2019 2.37 mg/dL Final 11/03/2018 1.6 mg/dL Final 10/27/2018 1.77 mg/dL Final 10/31/18 Abdomen U/S: right kidney 18.9cm, left kidney 20.5cm; both kidneys filled with numerous cysts; few cysts in the liver noted; this is consistent with autosomal dominant polycystic kidney disease. ASSESSMENT AND PLAN 1. Chronic kidney disease stage 4 (CMS-HCC) 2. Autosomal dominant polycystic kidney disease 3. Essential (primary) hypertension Abel has chronic kidney disease secondary to his known diagnosis of polycystic kidney disease. Unfortunately, as evidenced by the trend of his blood tests, his kidney function has been slowly deteriorating over the last two years. I suspect this is just the natural progression of his polycystic kidney disease with regard to the numerous cysts obstructing normal renal tissue. He already had an extensive workup and evaluation [address] Rangel when he was hospitalized so Isee no reason to repeat such testing as it is unlikely to change our current therapy/management. To help reduce the rate of kidney deterioration: Control BP: follow trend Control LDL cholesterol: per PCP Control Intact PTH: will check Use ED/ARB: hold for now Low protein diet: will check Benefits of slowing renal deterioration reviewed with patient in laymen's terms. Lowering blood pressure, controlling diabetes, and controlling cholesterol reduce insults to the kidney. Low protein diet helps take excess workload off of the kidney. ED/ARB help to decrease pressure in kidney and also decrease hormones that cause scar formation. Given his advanced kidney disease, I am not sure if he is is a candidate for Jynarque but I will check his liver function tests and review the literature to determine if the benefits outweigh the risks given his clinical picture. Blood Pressure for this visit is 134/72. The follow up plan to address blood pressure is follow trend. Body mass index is 26.5 kg/m??. Follow up plan to address BMI is diet/exercise. Follow up plan to address tobacco use is ongoing counseling. Will refer for renal education Transplant evaluation Long and extensive discussion with significant other and patient (> 20 minutes) regarding all the above including dialysis, renal education, symptoms of kidney failure and transplant. Thank you for allowing me to participate in the care of your patient. Malinda Strickland MD documented in this encounter Plan of Treatment Not on file documented as of this encounter Procedures Procedure Name Priority Date/Time Associated Diagnosis Comments RENAL FUNCTION PANEL (RFP) Routine 12/21/2019 RENAL FUNCTION PANEL (RFP) Routine 03/18/2019 RENAL FUNCTION PANEL (RFP) Routine 11/03/2018 RENAL FUNCTION PANEL (RFP) Routine 10/27/2018 documented in this encounter Results * Renal Function Panel (RFP) (12/21/2019) Calcium, Serum/Plasma 9.3 mg/dL EXTERNAL LAB (NON-INTERFACE D) Carbon dioxide CO2), total, Serum/Plasma 26 mmol/L EXTERNAL LAB (NON-INTERFACE D) Chloride, Serum/Plasma 104 mmol/L EXTERNAL LAB (NON-INTERFACE D) Creatinine, Serum/Plasma 2.6 mg/dL EXTERNAL LAB (NON-INTERFACE D) Glucose, Serum/Plasma 99 mg/dL EXTERNAL LAB (NON-INTERFACE D) Potassium, Serum/Plasma 4.5 mmol/L EXTERNAL LAB (NON-INTERFACE D) Sodium, Serum/Plasma 140 mmol/L EXTERNAL LAB (NON-INTERFACE D) Urea nitrogen, Serum/Plasma (BUN) 36 mg/dL EXTERNAL LAB (NON-INTERFACE D) eGFR, non 25 mL/min EXTERNAL LAB (NON-INTERFACE D) eGFR, 30 mL/min EXTERNAL LAB (NON-INTERFACE D) Blood (Blood, Venous) Historical Provider MD LAB BLOOD ORDERAB LES Performing Organization Address [facility] Co de Phone Number EXTERNAL LAB (NON-INTERFACED) * Renal Function Panel (RFP) (03/18/2019) Creatinine, Serum/Plasma 2.37 mg/dL EXTERNAL LAB (NON-INTERFACE D) Blood (Blood, Venous) Historical Provider LAB BLOOD ORDERAB LES Performing Organization Address [facility] Co de Phone Number EXTERNAL LAB (NON-INTERFACED) * Renal Function Panel (RFP) (11/03/2018) Creatinine, Serum/Plasma 1.6 mg/dL EXTERNAL LAB (NON-INTERFACE D) Blood (Blood, Venous) Historical Provider MD LAB BLOOD ORDERAB LES Performing Organization Address [facility] Co de Phone Number EXTERNAL LAB (NON-INTERFACED) * Renal Function Panel (RFP) (10/27/2018) Creatinine, Serum/Plasma 1.77 mg/dL EXTERNAL LAB (NON-INTERFACE D) Blood (Blood, Venous) Historical Provider MD LAB BLOOD ORDERAB LES Performing Organization Address [facility] Co de Phone Number EXTERNAL LAB (NON-INTERFACED) documented in this encounter Visit Diagnoses Diagnosis Chronic kidney disease stage 4 (CMS-HCC) Autosomal dominant polycystic kidney disease Essential (primary) hypertension documented in this encounter Care Teams Director Of Student Financial Aid Relationship Specialty Start Date End Date Gerardo Shah MD [address] [place] [address] PCP - General Internal Medicine 12/28/19 documented as of this encounter
--- OUTSIDE RECORDS SUMMARY | 2024-10-16 06:49 | XMS_ITS | Encounter Summary ---
Author Organization [facility] Address [address], [place] [address] Phone Care Team Providers Care Freight Engineer Name Role Phone Gerardo Shah MD Primary Care Provider [phone] Encounter Details Date Type Department Care Team (Late st Contact Info) Description 02/24/2020 Telephone [facility] Nephrology and Hypertension [address] [place] [address], [address] [place], [place] [id number] Suzette Strickland MD [address] [facility], [address] [place] [address] Social History Tobacco Use Types Packs/Day Years [...] Notes * Telephone Encounter - Anabell Rangel MA - 02/25/2020 9:24 AM CDT Test scheduled for march 04 at 9 a.m. At [facility]. Pt notified of test date and arrival time. Order faxed. * Telephone Encounter - Suzette Strickland MD - 02/24/2020 2:14 PM CDT Can you arrange for patient to have MRI/MRA of brain at [facility] -- he has polycystic kidney disease and a family history of cerebral aneurysm (his mother) and has been having recurrent headaches. Order in chart and informed patient that with COVID-19 situation, not sure when imaging will be scheduled. Thanks. documented in this encounter Plan of Treatment Not on file documented as of this encounter Visit Diagnoses Not on filedocumented in this encounter Care Teams Freight Engineer Relationship Specialty Start Date End Date Gerardo Shah MD [address] [place] [address] PCP - General Internal Medicine 12/28/19 documented as of this encounter
--- OUTSIDE RECORDS SUMMARY | 2024-10-16 06:49 | XMS_ITS | Encounter Summary ---
Author Organization [facility] Address [address] [place] [address] Phone Care Team Providers Care Coordinate Measuring Machine Operator Name Role Phone Gerardo Shah MD Primary Care Provider [phone] Encounter Details Date Type Department Care Team (Late st Contact Info) Description 09/19/2020 Telephone [facility] Nephrology and Hypertension [address] [facility], [address] [place] [address] Anabell Rangel, LEYDI Social History Tobacco Use [...] Telephone Encounter - Anabell Rangel MA - 09/19/2020 11:26 AM CST Lab called with creat level of 5.73. STK notified. documented in this encounter Plan of Treatment Not on file documented as of this encounter Visit Diagnoses Not on filedocumented in this encounter Care Teams Coordinate Measuring Machine Operator Relationship Specialty Start Date End Date Gerardo Shah MD [address] [place] [id number] PCP - General Internal Medicine 12/28/19 documented as of this encounter
--- OUTSIDE RECORDS SUMMARY | 2024-10-16 06:49 | XMS_ITS | Encounter Summary ---
Author Organization [facility] Address [address] [address] Phone Care Team Providers Care Bread Baker Name Role Phone Gerardo Shah MD Primary Care Provider [phone] Encounter Details Date Type Department Care Team (Late st Contact Info) Description 10/10/2020 Telephone [facility] Nephrology and Hypertension [address] [facility], [address] [place] [address] Imelda Rangel MA Social History Tobacco Use [...] Miscellaneous Notes * Telephone Encounter - Imelda Rangel MA - 10/10/2020 10:03 AM CST [facility] [place] called with high creatinine of 5.82, potassium of 5.6 from this am. documented in this encounter Plan of Treatment Not on file documented as of this encounter Visit Diagnoses Not on filedocumented in this encounter Care Teams Bread Baker Relationship Specialty Start Date End Date Gerardo Shah MD [address] [place] [address] PCP - General Internal Medicine 12/28/19 documented as of this encounter
--- OUTSIDE RECORDS SUMMARY | 2024-10-16 06:49 | XMS_ITS | Encounter Summary ---
Author Organization [facility] Address [address] [place] [address] Phone Care Team Providers Care Install And Repair Technician Name Role Phone Gerardo Shah MD Primary Care Provider [phone] Encounter Details Date Type Department Care Team (Late st Contact Info) Description 09/12/2020 Telephone [facility] Nephrology and Hypertension [address] [facility], [address] [place] [address] Anabell Rangel, LEYDI Social History Tobacco Use [...] Telephone Encounter - Suzette Strickland MD - 09/12/2020 5:05 PM CST Creatinine a bit higher that what it was running...however, this is likely secondary to starting diuretic therapy since he was having issues with swelling and edema. Will continue to follow. * Telephone Encounter - Anabell Rangel MA - 09/12/2020 10:37 AM CST Lab called re: pt's creat of 6.15. STK notified. documented in this encounter Plan of Treatment Not on file documented as of this encounter Visit Diagnoses Not on filedocumented in this encounter Care Teams Install And Repair Technician Relationship Specialty Start Date End Date Gerardo Shah MD [address] [place] [address] PCP - General Internal Medicine 12/28/19 documented as of this encounter
--- OUTSIDE RECORDS SUMMARY | 2024-10-16 06:49 | XMS_ITS | Encounter Summary ---
Author Organization [facility] Address [address] [place] [address] Phone Care Team Providers Care Software Test Manager Name Role Phone Gerardo Shah MD Primary Care Provider [phone] Encounter Details Date Type Department Care Team (Late st Contact Info) Description 10/24/2020 Telephone [facility] Nephrology and Hypertension [address] [facility], [address] [place] [address] Anabell Rangel, LEYDI Social History Tobacco Use [...] encounter Miscellaneous Notes * Telephone Encounter - Szuette Strickland MD - 10/24/2020 11:00 AM CST OK. Thanks. * Telephone Encounter - Anabell Rangel MA - 10/24/2020 10:55 AM CST [facility] called with creat level 6.22. STK in office and notified. documented in this encounter Plan of Treatment Not on file documented as of this encounter Visit Diagnoses Not on filedocumented in this encounter Care Teams Software Test Manager Relationship Specialty Start Date End Date Gerardo Shah MD [address] [place] [address] PCP - General Internal Medicine 12/28/19 documented as of this encounter
--- OUTSIDE RECORDS SUMMARY | 2024-10-16 06:49 | XMS_ITS | Encounter Summary ---
Author Organization [facility] Address [address] [place] [address] Phone Care Team Providers Care Cad Manager Name Role Phone Gerardo Shah MD Primary Care Provider [phone] Encounter Details Date Type Department Care Team (Late st Contact Info) Description 07/25/2020 Telephone [facility] Nephrology and Hypertension [address] [facility], [address] [place] [address] Imelda Rangel MA Social History Tobacco Use [...] Telephone Encounter - Imelda Rangel MA - 07/26/2020 9:01 AM CDT Pt has refill and will speak to his urologist if needs it in the future. * Telephone Encounter - Suzette Strickland MD - 07/25/2020 12:14 PM CDT I am assuming Urologist prescribed this and probably should get Rx from him but I am willing to refill it in an emergency. * Telephone Encounter - Imelda Rangel MA - 07/25/2020 10:21 AM CDT Pt was given tamsulosin 0.4 mg one time daily at [facility]. There is one refill left and [facility] will ask [facility] pharmacy if they can transfer it but is asking if you will take over prescribing that after this refill if it is needed. documented in this encounter Plan of Treatment Not on file documented as of this encounter Visit Diagnoses Not on filedocumented in this encounter Care Teams Cad Manager Relationship Specialty Start Date End Date Gerardo Shah MD [address] [place] [phone] PCP - General Internal Medicine 12/28/19 documented as of this encounter
--- OUTSIDE RECORDS SUMMARY | 2024-10-16 06:49 | XMS_ITS | Encounter Summary ---
Author Organization [facility] Address [address] [address] Phone Care Team Providers Care Ergonomist Name Role Phone Gerardo Shah MD Primary Care Provider [phone] Encounter Details Date Type Department Care Team (Late st Contact Info) Description 02/24/[address] [facility] Nephrology and Hypertension [address] [place] [address], [address] [place], [place] [id number] Suzette Strickland MD [address] [facility], [address] [place] [address] Autosomal dominant polycystic kidney disease (Primary Dx); Headache Social History Tobacco Use Types Packs/Day Years [...] as of this encounter Visit Diagnoses Diagnosis Autosomal dominant polycystic kidney disease- Primary Headache documented in this encounter Care Teams Ergonomist Relationship Specialty Start Date End Date Gerardo Shah MD [address] [place] [address] PCP - General Internal Medicine 12/28/19 documented as of this encounter
--- OUTSIDE RECORDS SUMMARY | 2024-10-16 06:49 | XMS_ITS | Encounter Summary ---
Author Organization [facility] Address [address] [place] [address] Phone Care Team Providers Care Yarn Carrier Name Role Phone Gerardo Shah MD Primary Care Provider [phone] Encounter Details Date Type Department Care Team (Late st Contact Info) Description 07/29/2020 Orders Only [facility] Nephrology and Hypertension [facility], [address] [place] [address] [address] Suzette Strickland MD [address] [facility], [address] [facility] [place] [address] Social History Tobacco Use Types Packs/Day Years [...] on filedocumented in this encounter Care Teams Yarn Carrier Relationship Specialty Start Date End Date Gerardo Shah MD [address] [place] [address] PCP - General Internal Medicine 12/28/19 documented as of this encounter
--- OUTSIDE RECORDS SUMMARY | 2024-10-16 06:49 | XMS_ITS | Encounter Summary ---
Author Organization [facility] Address [address] [address] Phone Care Team Providers Care Flatwork Supervisor Name Role Phone Gerardo Shah MD Primary Care Provider [phone] Encounter Details Date Type Department Care Team (Late st Contact Info) Description 02/22/2020 1:00 PM CDT Office Visit [facility] Nephrology and Hypertension [address] [place] [address], [address] [place] [address] Suzette Strickland MD [address] [facility], [address] [place] [address] Chronic kidney disease stage 4 (CMS-HCC); Autosomal [...] Sign Reading Time Taken Comments Blood Pressure 138/74 02/22/2020 1:06 PM CDT Pulse - - Temperature 36.8 ??C (98.3 ??F) 02/22/2020 1:06 PM CD T Respiratory Rate 18 02/22/2020 1:06 PM CDT Oxygen Saturation - - Inhaled Oxygen Concentration - - Weight 97.5 kg (215 lb) 02/22/2020 1:06 PM CDT Height 190.5 cm (6' 3 ) 02/22/2020 1:06 PM CDT Body Mass Index 26.87 02/22/2020 1:06 PM CDT documented in this encounter Progress Notes * Suzette Strickland MD - 02/22/2020 1:00 PM CDT FOLLOW-UP OFFICE VISIT Patient: Abel Browne Birthdate: 1960 PCP: Gerardo Shah MD Visit Date: 02/22/2020 INTERIM HISTORY Abel Browne here for follow-up regarding his 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 He was seen about 6 weeks ago for initial evaluation of this issue. Since last seen, he appears to be doing reasonably well. No apparent distress or concerns voiced atthis time. No issues or problems to report on this clinic visit. Past medical history, social history and family history has not changed since previous visit. Has applied to [facility] for testing -- will not start testing till March 2020. ALLERGIES No Known Allergies MEDICATIONS Current [...] Skin: No rash or itching. VITALS BP 138/74 (BP Location: Right arm, Patient Position: Sitting) Temp 98.3 ??F (36.8 ??C) Resp 18 Ht 6' [...] LABS/IMAGING Lab Results Component Value Date BUN 44 02/15/2020 CREATININE 2.46 02/15/2020 EGFRAA 33 02/15/2020 EGFR 27 02/15/2020 NA 142 02/15/2020 K 5.1 02/15/2020 CL 105 02/15/2020 CO2 28 02/15/2020 CA 9.2 02/15/2020 PHOSPHATE 4.0 02/15/2020 ALBUMIN 4.1 02/15/2020 GLUCOSE 106 02/15/2020 PROTCREATUR 489 02/15/2020 PTH 75 02/15/2020 VITD 25 02/15/2020 10/31/18 Abdomen U/S: right kidney 18.9cm, left [...] think he is a candidate for [facility] As I suspect the risk outweighs the benefit. Greater the 20 minutes spent in detailed discussion regarding polycystic kidney disease, kidney failure, diet, symptoms of kidney disease, transplant...etc. Blood Pressure for this visit is 138/74. The follow up plan to address blood pressure is follow trend. Body mass index is 26.87 kg/m??. Follow up plan to address BMI is diet/exercise. Continue current medications Repeat labs prior to next visit Malinda Strickland MD documented in this encounter Plan of Treatment Not on file documented as of this encounter Procedures Procedure Name Priority Date/Time Associated Diagnosis Comments PTH, INTACT W/ CALCIUM Routine 02/15/2020 VITAMIN D, 1, 25-DIHYDROXY Routine 02/15/2020 TOTAL PROTEIN W/ CREATININE, URINE, RANDOM Routine 02/15/2020 CBC (INCLUDES DIFFERENTIAL/PLATELETS ) Routine 02/15/2020 RENAL FUNCTION PANEL (RFP) Routine 02/15/2020 documented in this encounter Results * PTH, Intact w/ Calcium (02/15/2020) PTH, Intact, Serum/Plasma 75 ng/L EXTERNAL LAB (NON-INTERFACE D) Historical Provider MD LAB BLOOD ORDERAB LES EXTERNAL LAB (NON-INTERFACED) * Vitamin D, 1, 25-Dihydroxy (02/15/2020) 25-Hydroxyvitam in D2+25-Hydroxyvi tamin D3, Serum/Plasma 25 ng/mL EXTERNAL LAB (NON-INTERFACE D) Historical Provider MD LAB BLOOD ORDERAB LES EXTERNAL LAB (NON-INTERFACED) * Total Protein w/ Creatinine, Urine, Random (02/15/2020) Protein/Creati nine, Urine 489 mg/g creatinine EXTERNAL LAB (NON-INTERFAC ED) Historical Provider MD LAB URINE ORDERAB LES Performing Organization Address [facility] Co de Phone Number EXTERNAL LAB (NON-INTERFACED) * CBC (includes Differential/Platelets) (02/15/2020) Hematocrit of Blood 42.0 % EXTERNAL LAB (NON-INTERFACE D) Leukocytes, Blood 7.3 10*9/L EXTERNAL LAB (NON-INTERFACE D) Hemoglobin, Blood 13.2 g/dL EXTERNAL LAB (NON-INTERFACE D) Platelets, Blood 288 10*9/L EXTERNAL LAB (NON-INTERFACE D) Blood (Blood, Venous) Historical Provider MD LAB BLOOD ORDERAB LES Performing Organization Address [facility] de Phone Number EXTERNAL LAB (NON-INTERFACED) * Renal Function Panel (RFP) (02/15/2020) Albumin, Serum/Plasma 4.1 g/L EXTERNAL LAB (NON-INTERFACE D) Calcium, Serum/Plasma 9.2 mg/dL EXTERNAL LAB (NON-INTERFACE D) Carbon dioxide CO2), total, Serum/Plasma 28 mmol/L EXTERNAL LAB (NON-INTERFACE D) Chloride, Serum/Plasma 105 mmol/L EXTERNAL LAB (NON-INTERFACE D) Creatinine, Serum/Plasma 2.46 mg/dL EXTERNAL LAB (NON-INTERFACE D) Glucose, Serum/Plasma 106 mg/dL EXTERNAL LAB (NON-INTERFACE D) Phosphate, Serum/Plasma 4.0 mg/dL EXTERNAL LAB (NON-INTERFACE D) Potassium, Serum/Plasma 5.1 mmol/L EXTERNAL LAB (NON-INTERFACE D) Sodium, Serum/Plasma 142 mmol/L EXTERNAL LAB (NON-INTERFACE D) Urea nitrogen, Serum/Plasma (BUN) 44 mg/dL EXTERNAL LAB (NON-INTERFACE D) eGFR, non 27 mL/min EXTERNAL LAB (NON-INTERFACE D) eGFR, 33 mL/min EXTERNAL LAB (NON-INTERFACE D) Blood (Blood, Venous) Historical Provider MD LAB BLOOD ORDERAB LES Performing Organization Address [facility] Co de Phone Number EXTERNAL LAB (NON-INTERFACED) documented in this encounter Visit Diagnoses Diagnosis Chronic kidney disease stage 4 (CMS-HCC) Autosomal dominant polycystic kidney disease Essential (primary) hypertension documented in this encounter Care Teams Flatwork Supervisor Relationship Specialty Start Date End Date Gerardo Shah MD [address] [place] [address] PCP - General Internal Medicine 12/28/19 documented as of this encounter
--- OUTSIDE RECORDS SUMMARY | 2024-10-16 06:49 | XMS_ITS | Encounter Summary ---
Author Organization [facility] Address [address], [place] [address] Phone Care Team Providers Care Inspector Metal Fabricating Name Role Phone Gerardo Shah MD Primary Care Provider [phone] Encounter Details Date Type Department Care Team (Late st Contact Info) Description 10/17/2020 Telephone [facility] Nephrology and Hypertension [address] [facility], [address] [place] [address] Imelda Rangel MA Social History Tobacco Use [...] Telephone Encounter - Suzette Strickland MD - 10/17/2020 2:47 PM CST Ok * Telephone Encounter - Imelda Rangel MA - 10/17/2020 11:56 AM CST [facility] called with creatinine of 5.83 and potassium of 4.8. documented in this encounter Plan of Treatment Not on file documented as of this encounter Visit Diagnoses Not on filedocumented in this encounter Care Teams Inspector Metal Fabricating Relationship Specialty Start Date End Date Gerardo Shah MD [address] [place] [id number] PCP - General Internal Medicine 12/28/19 documented as of this encounter
--- OUTSIDE RECORDS SUMMARY | 2024-10-16 06:49 | XMS_ITS | Encounter Summary ---
Author Organization [facility] Address [address] [place] [address] Phone Care Team Providers Care Nursing Service Director Name Role Phone Gerardo Shah MD Primary Care Provider [phone] Encounter Details Date Type Department Care Team (Late st Contact Info) Description 08/29/2020 Telephone [facility] Nephrology and Hypertension [address] [facility], [address] [place] [address] Imelda Rangel MA Social History Tobacco Use [...] Telephone Encounter - Suzette Strickland MD - 08/29/2020 11:26 AM CST This creatinine is his baseline...just make sure they fax the complete results as I more focused onhis potassium levels. Thanks. * Telephone Encounter - Anabell Rangel MA - 08/29/2020 10:52 AM CST Call from lab re: pt's creat 5.4. HEP notified per phone call. * Telephone Encounter - Imelda Ranegl MA - 08/29/2020 10:28 AM CST When you return, pt will need orders for weekly labs. On your chair. He has enough lokelma to get him through [facility]. documented in this encounter Plan of Treatment Not on file documented as of this encounter Visit Diagnoses Not on filedocumented in this encounter Care Teams Nursing Service Director Relationship Specialty Start Date End Date Gerardo Shah MD [address] [place] [address] PCP - General Internal Medicine 12/28/19 documented as of this encounter
--- OUTSIDE RECORDS SUMMARY | 2024-10-16 06:49 | XMS_ITS | Encounter Summary ---
Author Organization [facility] Address [address] [place] [address] Phone Care Team Providers Care Lumpia Wrapper Maker Name Role Phone Gerardo Shah MD Primary Care Provider [phone] Encounter Details Date Type Department Care Team (Late st Contact Info) Description 06/20/[address] [facility] Nephrology and Hypertension [address] [facility], [address] [place] [address] Imelda Rangel MA Social History Tobacco Use [...] Telephone Encounter - Imelda Rangel MA - 06/23/2020 12:41 PM CDT Mld lab ordes and food lists. * Telephone Encounter - Suzette Strickland MD - 06/23/2020 12:01 PM CDT Long and extensive discussion with -- referred to Dr. Aponte for dialysis accessed placement and he needs to watch his K+ intake; please mail several generic lab reqs (6 - 7 of them - photocopiesof original) to patient and she will check labs every 3 - 4 weeks to ensure labs are stable; can also mail out high potassium food list as well. * Telephone Encounter - Migel Diamond MA - 06/21/2020 10:17 AM CDT Pts [facility] called to let you know that cancer was found in the kidney that was removed. Now a glitch with transplant and the are wondering what to do next. Pt did labs in [place] yesterday, per your request. Please call pt as soon as labs are received because his BUN and creatine were rising while he was is hospital last week * Telephone Encounter - Imelda Rangel MA - 06/20/2020 11:43 AM CDT Per your rec, pt will get labs done at [place] today and will wait to hear from you with results. I have canc appt for 06-22 until you decide when to see after reviewing results. * Telephone Encounter - Imelda Rangel MA - 06/20/2020 9:07 AM CDT Pt had his kidney removed on 06-14-20 and labs since have shown BUN and creatinine off. Surgeon suggested they see you within and week or 2. They will come 06-22-2020 to [place]. Labs were done at [place]. documented in this encounter Plan of Treatment Not on file documented as of this encounter Visit Diagnoses Not on filedocumented in this encounter Care Teams Lumpia Wrapper Maker Relationship Specialty Start Date End Date Gerardo Shah MD [address] [place] [id number] PCP - General Internal Medicine 12/28/19 documented as of this encounter
--- OUTSIDE RECORDS SUMMARY | 2024-10-16 06:49 | XMS_ITS | Encounter Summary ---
Author Organization [facility] Address [address] [place] [address] Phone Care Team Providers Care Dining Room Tables Set Up Attendant Name Role Phone Gerardo Shah MD Primary Care Provider [phone] Encounter Details Date Type Department Care Team (Late st Contact Info) Description 08/01/2020 Telephone [facility] Nephrology and Hypertension [address] [facility], [address] [facility] [place] [address] Suzette Strickland MD [address], [address] [place] [address] Social History Tobacco Use Types Packs/Day Years [...] Telephone Encounter - Suzette Strickland MD - 08/01/2020 4:27 PM CDT Brian * Telephone Encounter - Arely Sheikh - 08/01/2020 4:22 PM CDT [facility] will parts picker samples on Sat - pt will take sat and sat - wn get labs done on Saturday. Thank you documented in this encounter Plan of Treatment Not on file documented as of this encounter Visit Diagnoses Not on filedocumented in this encounter Care Teams Dining Room Tables Set Up Attendant Relationship Specialty Start Date End Date Gerardo Shah MD [address] [place] [address] PCP - General Internal Medicine 12/28/19 documented as of this encounter
--- OUTSIDE RECORDS SUMMARY | 2024-10-16 06:49 | XMS_ITS | Encounter Summary ---
Author Organization [facility] Address [address] [place] [address] Phone Care Team Providers Care Dip Stand Loader Name Role Phone Gerardo Shah MD Primary Care Provider [phone] Encounter Details Date Type Department Care Team (Late st Contact Info) Description 09/26/2020 Telephone [facility] Nephrology and Hypertension [address] [facility], [address] [place] [address] Anabell Rangel, LEYDI Social History Tobacco Use [...] Telephone Encounter - Suzette Strickland MD - 09/26/2020 12:27 PM CST ok * Telephone Encounter - Anabell Rangel MA - 09/26/2020 11:25 AM CST [facility] called with pt's creat of 6.07 and K+ of 5.4. STK notified documented in this encounter Plan of Treatment Not on file documented as of this encounter Visit Diagnoses Not on filedocumented in this encounter Care Teams Dip Stand Loader Relationship Specialty Start Date End Date Gerardo Shah MD [address] [place] [address] PCP - General Internal Medicine 12/28/19 documented as of this encounter
--- NOTE | 2024-10-18 12:08 | PC.NURSE ---
FINAL BLOOD CULTURE REPORT; NO GROWTH AFTER 5 DAYS, NO FURTHER ACTION OR CHANGE IN TREATMENT NEEDED.
--- NOTE | 2024-10-19 09:50 | PC.NURSE ---
FINAL AEROBIC CULTURE RESULTS: ESCHERICHIA COLI . PER MOTHER IN LAW PT HAS ALREADY FOLLOWED UP WITH DR BOYD. PER DR JAIME, HE SENT OVER RX FOR KEFLEX. CALLED AND SPOKE WITH LEYDI KO AT DR BOYD'S OFFICE, WHO REPORTS PT WAS ALREADY GIVEN RX FOR CIPRO. PER DR JAIME TO CALL PHARMACY AND CANCEL THE KEFLEX, NO FURTHER TREATMENT IS NEEDED.
== END 2024-10-11 18:10 | disposition home or self-care (01) ==
PROVIDERS: Emergency Provider Emergency Medicine; PCP Internal Medicine
DX: R10.13 Epigastric pain (principal); E87.5 Hyperkalemia; I25.2 Old myocardial infarction; I12.0 Hypertensive chronic kidney disease with stage 5 chronic kidney disease or end stage renal disease; N18.6 End stage renal disease; J43.9 Emphysema, unspecified; Z99.2 Dependence on renal dialysis; Z79.899 Other long term (current) drug therapy; Z79.82 Long term (current) use of aspirin; Z87.891 Personal history of nicotine dependence; Z20.822 Contact with and (suspected) exposure to COVID-19
CPT/HCPCS: 36415; 71045; 74177; 80053; 81001; 82948; 83690; 85025; 86140; 87040; 87186; 87637; 93005; 96361; 96374; 96375; 99284; A9270; J1815; J7030; Q9967

== ENCOUNTER 2024-12-03 15:51 | Emergency (ER) | payer MEDICARE, OTHER, SELFPAY ==
--- OUTSIDE RECORDS SUMMARY | 2024-12-03 15:53 | XMS_ITS | Clinical Summary ---
Author Organization [facility] [address] Address [address] [place] [address] Care Team Providers Care Pail Bailer Name Role Phone Gerardo Shah MD Primary Care Provider [phone] Suzette Strickland MD Unavailable [phone] Rita Tapia RN Unavailable [phone] Allergies No known active allergies Medications [...] total) by mouth every morning 0 Active lidocaine-priloca ine cream 1 Active nitroglycerin (NITROSTAT) 0.[address] 1 tablet (0.4 mg total) under the tongue every 5 (five) minutes as needed for chest pain 30 tablet 3 3 Active amLODIPine (NORVASC) 5 mg tablet TAKE ONE TABLET BY MOUTH EVERY MORNING 90 tablet [address] (PROTONIX) 40 mg EC tablet Take 1 tablet (40 mg total) by mouth 2 (two) times a day 5 Active isosorbide mononitrate ER (IMDUR) 30 mg 24 hr tabletIndications :Prinzmetal's angina ([facility]) (HCC) Take 1 tablet (30 mg total) by mouth every morning 90 tablet 3 5 Active famotidine (PEPCID) 20 mg tablet Take 2 tablets (40 mg total) by mouth daily 11/10/19 25 Discontinu ed(Patient Reported) isosorbide mononitrate ER (IMDUR) 30 mg 24 hr tablet TAKE ONE TABLET BY MOUTH EVERY MORNING 30 tablet 3 4 11/10/19 Discontinu ed(Reorder ) Active Problems Patient Care Coordination No te Formatting of this note migh t be different from the original. Verbal consent - Meghann Juares Robin Problem Noted Date Diagnosed Date Prinzmetal's angina ([facility]) 03/12/2023 Malignant neoplasm of right kidney 09/07/2021 Gastroesophageal reflux disease 06/08/2021 Hypertension 06/08/2021 Vitamin B12 deficiency 06/08/2021 Kidney disease 09/29/2020 Overview (09/29/2020): Added automatically from request for surgery [id number] Encounter for surgical after care following surgery of circulatory system 09/28/2020 Stage 5 chronic kidney disea se on chronic dialysis ([facility]) 08/04/2020 Overview (08/04/2020): Added automatically from request for surgery [id number] End-stage renal disease (ESRD) ([facility]) 020 Overview (06/22/2020): Added automatically from request for surgery [id number] Autosomal dominant polycystic kidney disease 06/2020 Overview (05/05/2020): Added automatically from request for surgery [id number] Polycystic kidney disease, autosomal dominant Stage 4 chronic kidney disease ([facility]) 06/16/2 020 Pre-transplant evaluation for kidney transplant 04/12/2020 Secondary hyperparathyroidism 04/12/2020 Other chest pain 12/23/2018 End stage renal disease (CMS/HCC) Acute postoperative abdominal pain Resolved Problems Problem Noted Date Diagnosed Date Resolved Date Coronary arteriosclerosis 06/08/2021 Encounters Date Type Department Care Team Description 11/10/2024 8:00 AM BEATER MACHINE OPERATOR Office Visit [facility] Cardiology [address] [place] [id number] Danna Reynoso NP Prinzmetal's angina (CMS/HCC) (HCC) (Primary Dx) 10/06/2024 Documentation [facility] Transplant Kidney [address] Mailstop [id number] [place] [address] Kirstin Simmons 10/05/2024 Documentation [facility] Transplant Kidney [address] Mailstop [id number] [place] [address] Landy Sumner 09/30/2024 Documentation [facility] Transplant Kidney [address] Mailstop 90-90-207 [place] [address] Rita Tapia, RN 09/29/2024 Telephone [facility] Transplant Kidney [address] Mailstop 90-16-411 [place] [address] Rita Tapia, RN 09/21/2024 10:00 AM BEATER MACHINE OPERATOR - 09/21/2024 11:59 PM BEATER MACHINE OPERATOR Hospital Encounter [facility] [address] [place] [address] ESRD (end stage renal disease) (CMS/HCC) (HCC) Discharge Disposition: Discharge to home or self care 09/08/2024 11:40 AM BEATER MACHINE OPERATOR Office Visit [facility] ([facility]) - [facility] [address] [place] [address] for Advanced Medicine 11th [place] [address] [place] [address] Quique Guzman NP History of kidney cancer (Primary Dx) 09/08/2024 8:46 AM BEATER MACHINE OPERATOR - 09/08/2024 11:59 PM BEATER MACHINE OPERATOR Hospital Encounter [facility] ([facility]) [address] [place], [place] [id number] History of kidney cancer Discharge Disposition: Discharge to home or self care from Last 3 Months Immunizations Name Administration [...] obstructive pulmonary disease) (HC C) mild Bradycardia Sepsis (HCC) Family History Medical History Relation Name Comments [...] on file Legal Sex Male 4:54 AM BEATER MACHINE OPERATOR Gender Identity Not on file Sexual Orientation Straight 05/03/2020 10 :36 AM CDT Obstetrics History Last Filed Vital Signs Vital Sign Reading Time Taken Comments Blood Pressure 130/70 11/10/2024 7:57 AM BEATER MACHINE OPERATOR Pulse 67 11/10/2024 7:57 AM BEATER MACHINE OPERATOR Temperature 36.3 C (97.4 F) 09/07/2021 1:21 PM BEATER MACHINE OPERATOR Respiratory Rate 16 10/12/2020 1:20 PM BEATER MACHINE OPERATOR Oxygen Saturation 98% 11/10/2024 7:57 AM BEATER MACHINE OPERATOR Inhaled Oxygen Concentration - - Weight 82.1 kg (180 lb 14.4 oz) 11/10/2024 7:57 AM BEATER MACHINE OPERATOR Height 190.5 cm (6' 3 ) 11/10/2024 7:57 AM BEATER MACHINE OPERATOR Body Mass Index 22.61 11/10/2024 7:57 AM BEATER MACHINE OPERATOR Plan of Treatment Scheduled Procedures Name Priority [...] AND CLASS II) Routine 09/21/2024 10:00 AM BEATER MACHINE OPERATOR ESRD (end stage renal disease) (CMS/HCC) (HCC) MRI ABDOMEN KIDNEY WO CONTRAST Schedule Routine, Read Routine (OP Routine) 09/08/2024 9:58 AM BEATER MACHINE OPERATOR History of kidney cancer HEPATITIS C ANTIBODY Routine 11/08/2022 8:15 AM BEATER MACHINE OPERATOR 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) (HCC) PSA SCREEN Routine 11/08/2022 8:15 AM BEATER MACHINE OPERATOR 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) (HCC) from Last 3 Months or Most Recently Relevant to Health Maintenance Results * HLA Antibody Screen by PRA or SAB per Schedule (Class I and Class II) (09/21/2024 10:00 AM BEATER MACHINE OPERATOR) Blood 09/21/2024 10:0 0 AM BEATER MACHINE OPERATOR Narrative HISTOTRAC - BEATER MACHINE OPERATOR Sample received in lab and stored. No testing performed at this time. us Alonso Pruitt MD LAB BLOOD ORDERABLES Final Resu lt HISTOTRAC * MRI Abdomen Kidney WO Contrast (09/08/2024 9:58 AM BEATER MACHINE OPERATOR) Anatomical Region Laterality Modality Body N/A Magnetic Resonan ce 09/08/2024 1:14 PM BEATER MACHINE OPERATOR Impressions 09/08/2024 1:25 PM BEATER MACHINE OPERATOR 1. Redemonstrated post surgical changes of right [...] Donaldo Moya M.D. Narrative 09/08/2024 1:25 PM BEATER MACHINE OPERATOR EXAMINATION: MAGNETIC RESONANCE IMAGING OF THE ABDOMEN [...] suspicious osseous lesions. No suspicious abdominal adenopathy. Procedure Note Donaldo Moya [...] IMG MRI PROCEDURES Fin al Result * PSA screen (11/08/2022 8:15 AM BEATER MACHINE OPERATOR) PSA-Total 0.93 <=5.40 ng/mL [facility] Comment: Interpretive Data AGE SEX REFERENCE INTERVAL 0 minutes-150 years Female None 0 minutes-49 years Male None 50-59 years Male 0-3.90 60-69 years Male 0-5.40 70-79 years Male 0-6.20 80-150 years Male 0-6.20 The Kenn PSA Total assay procedure was used. Results from different manufacturers or methods may not be comparable. Serial testing should be performed using the same method. Current interpretive data last revised 22. Blood 11/08/2022 8:15 AM BEATER MACHINE OPERATOR 11/08/2022 8:57 AM BEATER MACHINE OPERATOR us Perla Valadez MD LAB BLOOD ORDERABLE S Final Result [facility] Department [place] [address] * Hepatitis C antibody (11/08/2022 8:15 AM BEATER MACHINE OPERATOR) Hep C Ab Nonreactive Nonreactive [facility] Comment:Antibodies to HCV no t detected. Does NOT exclude the possibility of recent exposure to HCV. Current interpretive data was last revised on 22 Blood 11/08/2022 8:15 AM BEATER MACHINE OPERATOR 11/08/2022 8:57 AM BEATER MACHINE OPERATOR us Perla Valadez MD LAB MICROBIOLOGY - GENERAL ORDERABLES Final Result Performing Organization Address [facility] [[email or web address]] Co de Phone Number [facility] Department [place] [address] from Last 3 Months or Most Recently Relevant to Health Maintenance Insurance [facility] HMO/PPO Address: [facility] [address] [place] [address] MEDICARE [facility] HMO/PPO Address: [address] [address] [place] [address] MEDICARE [facility] HMO/PPO Address: [address] [place] [phone] MEDICARE [facility] Address: [address] [place] [phone] [facility] H[facility]/PPO Address: [address] [place] [phone] MEDICARE Advance Directives For more information, please contact: [phone] * Full Code (Latest Code Status on File) Date Activated Date Inactivated Comments 07/03/2020 3:51 PM 07/07/2020 4:44 PM * Full Code Date Activated Date Inactivated Comments 06/14/2020 5:08 PM 06/18/2020 10:40 PM Care Teams Pail Bailer Relationship Specialty Start Date End Date Gerardo Shah MD PCP - General Internal Medicine 09/30/18 Suzette Strickland MD [address] [facility] [address] [place] [address] Referring Physician Nephrology 02/15/20 Rita Tapia, RN [address] [place] [address] Registered Nurse Target Worker 02/15/20
--- OUTSIDE RECORDS SUMMARY | 2024-12-03 15:53 | XMS_ITS ---
Author Organization [facility] [address] Address [address] [place] [address] Care Team Providers Care Allergy And Immunology Specialist Name Role Phone Gerardo Shah MD Primary Care Provider [phone] Suzette Strickland MD Unavailable [phone] Rita Tapia RN Unavailable [phone] Active Problems Patient Care Coordination No te Formatting of this note migh t be different from the original. 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[facility]) 03/12/2023 Malignant neoplasm of right kidney 09/07/2021 Gastroesophageal reflux disease 06/08/2021 Hypertension 06/08/2021 Vitamin B12 deficiency 06/08/2021 Kidney disease 09/29/2020 Overview (09/29/2020): Added automatically from request for surgery [id number] Encounter for surgical after care following surgery of circulatory system 09/28/2020 Stage 5 chronic kidney disea se on chronic dialysis ([facility]) 08/04/2020 Overview (08/04/2020): Added automatically from request for surgery [id number] End-stage renal disease (ESRD) ([facility]) 020 Overview (06/22/2020): Added automatically from request for surgery [id number] Autosomal dominant polycystic kidney disease 06/2020 Overview (05/05/2020): Added automatically from request for surgery [id number] Polycystic kidney disease, autosomal dominant Stage 4 chronic kidney disease (CMS/HCC) 020 Pre-transplant evaluation for kidney transplant 04/12/2020 Secondary hyperparathyroidism 04/12/2020 Other chest pain 12/23/2018 End stage renal disease ([facility]/HCC) Acute postoperative abdominal pain Current Oncology Plans No current plan information found. Past Plans No past plan information found. Radiation Treatments * No radiation treatments are documented for this patient in [facility]. Treatments may have been administered in another [...]
--- OUTSIDE RECORDS SUMMARY | 2024-12-03 15:53 | XMS_ITS | Encounter Summary ---
Author Organization [facility] Healthcare Address [address] [place] [address] Care Team Providers Care Hitch Technician Name Role Phone Gerardo Shah MD Primary Care Provider [phone] Suzette Strickland MD Unavailable [phone] Rita Tapia RN Unavailable [phone] Encounter Details Date Type Department Care Team (Late st Contact Info) Description 09/06/[address] [facility] Radiology [address] [place] [address] Marc Khan MD [address] [facility] [id number] [place], [place] [id number] Social History Tobacco Use Types Packs/Day Years Used Date Smoking Tobacco: Former Cigarettes 1.5 40 0 04/11/1978 - 2017 Smokeless Tobacco: Never Alcohol Use Standard Drinks/Week Comments Yes 2 (1 standard drink = 0.6 oz pur e alcohol) Sex and Gender Information Value Date Recorded Sex Assigned at Not on file Legal Sex Male 4:54 AM RECOVERY RN Gender Identity Not on file Sexual Orientation Straight 05/03/2020 10 :36 AM CDT documented as of this encounter Plan of Treatment Scheduled Procedures Name Priority Associated Diagnoses Date/Ti me TRANSPLANT KIDNEY ESRD (end stage renal disease) ([facility]) documented as of this encounter Visit Diagnoses Not on filedocumented in this encounter Care Teams Hitch Technician Relationship Specialty Start Date End Date Gerardo Shah MD PCP - General Internal Medicine 09/30/18 Suzette Strickland MD [address] [facility] [address] [place] [address] Referring Physician Nephrology 02/15/20 Rita Tapia, RN [address] [place] [address] Registered Nurse Personal Computer Network Analyst 02/15/20 documented as of this encounter
--- OUTSIDE RECORDS SUMMARY | 2024-12-03 15:53 | XMS_ITS | Clinical Summary ---
Author Organization [facility] Address [address], [address] [address] Phone Care Team Providers Care Leasing Representative Name Role Phone Gerardo Shah MD Primary Care Provider [phone] Stan Mendez DO Unavailable [phone] Social History Tobacco Use Types Packs/Day Years Used Date Smoking Tobacco: Never Assessed Sex and Gender Information Value Date Recorded Sex Assigned at Not on file Legal Sex Male 12:33 PM PECAN MALLOW DIPPER Gender Identity Not on file Sexual Orientation Not on file Plan of Treatment Health Maintenance Due Date Last Done Comments Hepatitis C Virus (HCV) Screening 1960 TdaP Immunization 1960 Colonoscopy 02/20/2005 Colorectal Cancer Screening 02/20/2005 Cologuard 02/20/2010 Immunochemical Fecal Occult Blood 02/20/2010 Pneumococcal Immunization (5 0+ years) (1 of 1 - PCV) 02/20/2010 Zoster Immunization (1 of 2) 02/20/2010 PSA Discussion 02/20/2015 Influenza Immunization (#1) 2024 SARS-COV-2 Immunization ( - season) 2024 Respiratory Syncytial Virus (RSV) Immunization (Adult) (1 - 1-dose 75+ series) 02/20/2035 Hepatitis B Immunization Aged Out No longer [...] patient's age to complete this topic Insurance [facility] Care Teams Leasing Representative Relationship Specialty Start Date End Date Gerardo Shah MD [address] [place] [address] PCP - General Internal Medicine 11/05/18 Stan Mendez DO [address] [place] [address] Gastroenterology 11/05/18
--- OUTSIDE RECORDS SUMMARY | 2024-12-03 15:54 | XMS_ITS | Referral Summary ---
Author Organization [facility] [address] [facility] [address] Address [address] [place] [address] Care Team Providers Care Edge Bander Operator Name Role Phone Gerardo Shah MD Primary Care Provider [phone] Suzette Strickland MD Unavailable [phone] Rita Tapia RN Unavailable [phone] Encounters Date Type Department Care Team Description 11/10/2024 8:00 AM INBOUND CUSTOMER SERVICE REPRESENTATIVE Office Visit [facility] Cardiology [address] [facility] [address] [place] [address] Danna Reynoso, EZEQUIEL Prinzmetal's angina (CMS/HCC) (HCC) (Primary Dx) 10/06/2024 Documentation [facility] [address] [facility] [place] [place] [address] [id number] [place] [address] Kirstin Simmons 10/05/2024 Documentation [facility] [address] [facility] [address] Mailstop 22-24-212 [place] [address] Landy Sumner 09/30/2024 Documentation [facility] [address] [facility] [address] Mailstop 12-42-259 [place] [address] Rita Tapia, RN 09/29/2024 Telephone [facility] Transplant Kidney [address] [facility] [address] Mailstop [id number] [place] [address] Rita Tapia RN 09/21/2024 10:00 AM INBOUND CUSTOMER SERVICE REPRESENTATIVE - 09/21/2024 11:59 PM INBOUND CUSTOMER SERVICE REPRESENTATIVE Hospital Encounter [facility] [address] [place] [address] ESRD (end stage renal disease) (CMS/HCC) (HCC) Discharge Disposition: Discharge to home or self care 09/08/2024 8:46 AM INBOUND CUSTOMER SERVICE REPRESENTATIVE - 09/08/2024 11:59 PM INBOUND CUSTOMER SERVICE REPRESENTATIVE Hospital Encounter [facility] [address] [place] [address] History of kidney cancer Discharge Disposition: Discharge to home or self care 09/08/2024 11:40 AM INBOUND CUSTOMER SERVICE REPRESENTATIVE Office Visit [facility] [address] [facility] Advanced Medicine 11th [place] [address] [place] [id number] Quique Guzman NP History of kidney cancer (Primary Dx) from Last 3 Months Allergies No known [...] hr tabletIndications :Prinzmetal's angina ([facility]) (HCC) Take 1 tablet (30 mg total) by mouth every morning 90 tablet 3 5 Active famotidine (PEPCID) 20 mg tablet Take 2 tablets (40 mg total) by mouth daily 11/10/19 25 Discontinu ed(Patient Reported) isosorbide mononitrate ER (IMDUR) 30 mg 24 hr tablet TAKE ONE TABLET BY MOUTH EVERY MORNING 30 tablet 3 4 11/10/19 25 Discontinu ed(Reorder ) Active Problems Patient Care Coordination No te Formatting of this note migh t be different from the original. Verbal consent - Meghann Juares Robin Problem Noted Date Diagnosed Date Prinzmetal's angina ([facility]) 03/12/2023 Malignant neoplasm of right kidney 09/07/2021 Gastroesophageal reflux disease 06/08/2021 Hypertension 06/08/2021 Vitamin B12 deficiency 06/08/2021 Kidney disease 09/29/2020 Overview (09/29/2020): Added automatically from request for surgery [id number] Encounter for surgical after care following surgery of circulatory system 09/28/2020 Stage 5 chronic kidney disea se on chronic dialysis ([facility]) 08/04/2020 Overview (08/04/2020): Added automatically from request for surgery [id number] End-stage renal disease (ESRD) ([facility]) 020 Overview (06/22/2020): Added automatically from request for surgery [id number] Autosomal dominant polycystic kidney disease 06/2020 Overview (05/05/2020): Added automatically from request for surgery [id number] Polycystic kidney disease, autosomal dominant Stage 4 chronic kidney disease ([facility]) 020 Pre-transplant evaluation for kidney transplant 04/12/2020 Secondary hyperparathyroidism 04/12/2020 Other chest pain 12/23/2018 End stage renal disease ([facility]) Acute postoperative abdominal pain Resolved [...] on file Legal Sex Male 4:54 AM INBOUND CUSTOMER SERVICE REPRESENTATIVE Gender Identity Not on file Sexual Orientation Straight 05/03/2020 10 :36 AM CDT Last Filed Vital Signs Vital Sign Reading Time Taken Comments Blood Pressure 130/70 11/10/2024 7:57 AM INBOUND CUSTOMER SERVICE REPRESENTATIVE Pulse 67 11/10/2024 7:57 AM INBOUND CUSTOMER SERVICE REPRESENTATIVE Temperature 36.3 C (97.4 F) 09/07/2021 1:21 PM INBOUND CUSTOMER SERVICE REPRESENTATIVE Respiratory Rate 16 10/12/2020 1:20 PM INBOUND CUSTOMER SERVICE REPRESENTATIVE Oxygen Saturation 98% 11/10/2024 7:57 AM INBOUND CUSTOMER SERVICE REPRESENTATIVE Inhaled Oxygen Concentration - - Weight 82.1 kg (180 lb 14.4 oz) 11/10/2024 7:57 AM INBOUND CUSTOMER SERVICE REPRESENTATIVE Height 190.5 cm (6' 3 ) 11/10/2024 7:57 AM INBOUND CUSTOMER SERVICE REPRESENTATIVE Body Mass Index 22.61 11/10/2024 7:57 AM INBOUND CUSTOMER SERVICE REPRESENTATIVE Plan of Treatment Scheduled Procedures Name Priority Associated Diagnoses Date/Ti me TRANSPLANT KIDNEY ESRD (end stage renal disease) ([facility]) Procedures Procedure Name Priority Date/Time Associated Diagnosis Comments HLA ANTIBODY SCREEN BY PRA OR SAB PER SCHEDULE (CLASS I AND CLASS II) Routine 09/21/2024 10:00 AM INBOUND CUSTOMER SERVICE REPRESENTATIVE ESRD (end stage renal disease) ([facility]/HCC) (HCC) MRI ABDOMEN KIDNEY WO CONTRAST Schedule Routine, Read Routine (OP Routine) 09/08/2024 9:58 AM INBOUND CUSTOMER SERVICE REPRESENTATIVE History of kidney cancer HEPATITIS C ANTIBODY Routine 11/08/2022 8:15 AM INBOUND CUSTOMER SERVICE REPRESENTATIVE 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) (HCC) PSA SCREEN Routine 11/08/2022 8:15 AM INBOUND CUSTOMER SERVICE REPRESENTATIVE 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) (HCC) from Last 3 Months or Most Recently Relevant to Health Maintenance Results * HLA Antibody Screen by PRA or SAB per Schedule (Class I and Class II) (09/21/2024 10:00 AM INBOUND CUSTOMER SERVICE REPRESENTATIVE) Blood 09/21/2024 10:0 0 AM INBOUND CUSTOMER SERVICE REPRESENTATIVE Narrative HISTOTRAC - INBOUND CUSTOMER SERVICE REPRESENTATIVE Sample received in lab and stored. No testing performed at this time. us Alonso Pruitt MD LAB BLOOD ORDERABLES Final Resu lt HISTOTRAC * MRI Abdomen Kidney WO Contrast (09/08/2024 9:58 AM INBOUND CUSTOMER SERVICE REPRESENTATIVE) Anatomical Region Laterality Modality Body N/A Magnetic Resonan ce 09/08/2024 1:14 PM INBOUND CUSTOMER SERVICE REPRESENTATIVE Impressions 09/08/2024 1:25 PM INBOUND CUSTOMER SERVICE REPRESENTATIVE 1. Redemonstrated post surgical changes of right [...] Donaldo Moya M.D. Narrative 09/08/2024 1:25 PM INBOUND CUSTOMER SERVICE REPRESENTATIVE EXAMINATION: MAGNETIC RESONANCE IMAGING OF THE ABDOMEN [...] signed by: Donaldo Moya M.D. Quique Guzman MARINE DESIGN ENGINEER IM MRI PROCEDURES Fin al Result * PSA screen (11/08/2022 8:15 AM INBOUND CUSTOMER SERVICE REPRESENTATIVE) PSA-Total 0.93 <=5.40 ng/mL [facility] Comment: Interpretive Data AGE SEX REFERENCE [...] last revised 22. Blood 11/08/2022 8:15 AM INBOUND CUSTOMER SERVICE REPRESENTATIVE 11/08/2022 8:57 AM INBOUND CUSTOMER SERVICE REPRESENTATIVE Perla Valadez MD LAB BLOOD ORDERABLE S Final Result Performing Organization Address City/[facility] Co de Phone Number [facility] Department [email or web address] [place] [address] * Hepatitis C antibody (11/08/2022 8:15 AM INBOUND CUSTOMER SERVICE REPRESENTATIVE) Hep C Ab Nonreactive Nonreactive [facility] Comment:Antibodies to HCV no t detected. Does NOT exclude the possibility of recent exposure to HCV. Current interpretive data was last revised on 22 Blood 11/08/2022 8:15 AM INBOUND CUSTOMER SERVICE REPRESENTATIVE 11/08/2022 8:57 AM INBOUND CUSTOMER SERVICE REPRESENTATIVE Perla Valadez MD LAB MICROBIOLOGY - GENERAL ORDERABLES Final Result Performing Organization Address City/[facility] Co de Phone Number [facility] Department [email or web address] [address] from Last 3 Months or Most Recently Relevant to Health Maintenance Insurance [facility] MEDICARE [facility] MEDICARE [facility] MEDICARE [facility] MEDICARE Advance Directives For more information, please contact: [phone] * Full Code (Latest Code Status on File) Date Activated Date Inactivated Comments 07/03/2020 3:51 PM 07/07/2020 4:44 PM * Full Code Date Activated Date Inactivated Comments 06/14/2020 5:08 PM 06/18/2020 10:40 PM Care Teams Edge Bander Operator Relationship Specialty Start Date End Date Gerardo Shah MD PCP - General Internal Medicine 09/30/18 Suzette Strickland MD [address] [facility] [address] [place] [address] Referring Physician Nephrology 02/15/20 Rita Tapia, RN [address] [place] [address] Registered Nurse Gas Collection System Operator 02/15/20
--- OUTSIDE RECORDS SUMMARY | 2024-12-03 15:54 | XMS_ITS ---
Author Organization [facility] [address] Address [address] [place] [address] Care Team Providers Care Diesel Mechanic Apprentice Name Role Phone Gerardo Shah MD Primary Care Provider [phone] Suzette Strickland MD Unavailable [phone] Rita Tapia RN Unavailable [phone] Transplant Episode Kidney Candidate [facility] ([place], [place]) [facility] Center waitlisted on 08/03/2020 Marked as Active on 08/15/2020 Reason: Listed in [facility] Kidney CoordinatorJo Aviva Tapia RN Email: N/A Scores Score Value Updated Exceptions/Reas ons CPRA 0 08/31/2020 EPTS (Calc) 61 12/03/2024 Care Team Name Role Phone Fax Email Rita Tapia RN Kidney Coordinator [phone] N/A Suzette Strickland MD Referring Physician [phone] N/A Zhane [address] Light Cleaner [phone] N/A N/A Events Pre-Transplant Referred: 01/07/2020 Evaluation began: 02/18/2020 Committee: 08/01/2020 Center waitlisted: 08/03/2020 Dialysis History Dialysis History Start End Type Comments Center 11/09/2020 Hemo Mon,Wed,Fri 6am [facility] Dialysis Center Information Center Phone Fax Address [facility] [phone] [facility] [address]
--- OUTSIDE RECORDS SUMMARY | 2024-12-03 15:55 | XMS_ITS | Clinical Summary ---
Author Organization [facility] Address [address] [place] [address] Phone Care Team Providers Care Milk Pickup Truck Driver Name Role Phone Gerardo Shah MD Primary Care Provider [phone] Allergies No known active allergies Medications Medication [...] (05/11/2020): Added automatically from request for surgery [id number] Chronic kidney disease stage 4 04/12/2020 Secondary [...] Comments Blood Pressure 136/80 09/19/2020 8:37 AM PHYSICAL THERAPY MANAGER Pulse - - Temperature 36.8 C (98.2 F) 09/19/2020 8:37 AM PHYSICAL THERAPY MANAGER Respiratory Rate 18 09/19/2020 8:37 AM PHYSICAL THERAPY MANAGER Oxygen Saturation - - Inhaled Oxygen Concentration - - Weight 95.3 kg (210 lb) 09/19/2020 8:37 AM PHYSICAL THERAPY MANAGER Height 190.5 cm (6' 3 ) 09/19/2020 8:37 AM PHYSICAL THERAPY MANAGER Body Mass Index 26.25 09/19/2020 8:37 AM PHYSICAL THERAPY MANAGER Plan of Treatment Health Maintenance Due Date Last Done Comments Influenza Vaccine (#1) 2024 Care Teams Milk Pickup Truck Driver Relationship Specialty Start Date End Date Gerardo Shah MD [address] [place] [address] PCP - General Internal Medicine 12/28/19
--- OUTSIDE RECORDS SUMMARY | 2024-12-03 15:55 | XMS_ITS | Encounter Summary ---
Author Organization [facility] Address [address] [place] [address] Phone Care Team Providers Care Coal Trammer Name Role Phone Gerardo Shah MD Primary Care Provider [phone] Reason for Visit * Reason Comments Med Refill Encounter Details Date Type Department Care Team (Late st Contact Info) Description 06/21/2022 Refill [facility] Nephrology and Hypertension [facility], [address] [address] Suzette Strickland MD [address] [place], [address] [place] [address] Social History Tobacco Use Types Packs/Day Years [...] on filedocumented in this encounter Care Teams Coal Trammer Relationship Specialty Start Date End Date Gerardo Shah MD [address] [place] [address] PCP - General Internal Medicine 12/28/19 documented as of this encounter
--- OUTSIDE RECORDS SUMMARY | 2024-12-03 15:55 | XMS_ITS | Encounter Summary ---
Author Organization [facility] Address [address] [place] [address] Phone Care Team Providers Care Printed Circuit Layout Taper Name Role Phone Gerardo Shah MD Primary Care Provider [phone] Reason for Visit * Reason Comments Med Refill Encounter Details Date Type Department Care Team (Late st Contact Info) Description 06/04/2022 Refill [facility] Nephrology and Hypertension [facility], [address] [address] Suzette Strickland MD [address] [facility], [address] [place] [address] Social History Tobacco Use Types Packs/Day Years [...] on filedocumented in this encounter Care Teams Printed Circuit Layout Taper Relationship Specialty Start Date End Date Gerardo Shah MD [address] [place] [address] PCP - General Internal Medicine 12/28/19 documented as of this encounter
--- OUTSIDE RECORDS SUMMARY | 2024-12-03 15:55 | XMS_ITS ---
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 Ordering Clinician Indication Dosage Frequency Signature (SIG) Comments Components Mircera 11-26 06:00: 00 Yes [id number] Number of Repeats Allowed: Frequency: DECLAN dosing, every two weeks Mircera 2023-10 2-29 14:25: 52 Yes [id number] Number of Repeats Allowed: Frequency: DECLAN dosing, every four weeks Mircera 918 17:49: 56 Yes [id number] Number of Repeats Allowed: Frequency: DECLAN dosing, every four weeks Venofer 6-27 15:24: 54 Yes [id number] Number of Repeats Allowed: Frequency: One time a weekDosesO rdered: Maintenanc e Dose 50 Milligram Route: Intravenou s Zantac 360 2022-10 2-20 12:51: 27 Yes Number of Repeats Allowed: Frequency: One time a day Lidocaine-P rilocaine 5-05 20:08: 26 Yes Number of Repeats Allowed: Frequency: Pre-dialys is amLODIPine Besylate 02-13 20:28: 52 Yes Number of Repeats Allowed: Frequency: One time a day Zinc 02-13 20:28: 25 Yes Number of Repeats Allowed: Frequency: One time a day Vitamin D 02-13 20:28: 02 Yes Number of Repeats Allowed: Frequency: One time a day Nitroglycer in 02-13 20:26: 56 Yes Number of Repeats Allowed: Frequency: As needed Cyanocobala min 02-13 20:25: 39 Yes Number of Repeats Allowed: Frequency: Every morning Bumetanide 02-13 20:25: 11 Yes Number of Repeats Allowed: Frequency: Every morning Aspirin 81 02-13 20:24: 49 Yes Number of Repeats Allowed: Frequency: One time a day Acetaminoph en 02-13 20:24: 27 Yes Number of Repeats Allowed: Frequency: As needed acetaminoph en 01-28 05:00: 00 Yes [id number] Number of Repeats Allowed: Frequency: Every 4 hours as needed heparin sodium, porcine 01-28 05:00: 00 Yes [id number] Number of Repeats Allowed: Frequency: Every Dialysis TreatmentD osesOrdere d: Loading Dose 2500 Units 1:1000 Units/mLRo tyonek: Intravenou s ondansetron hydrochlori de 01-28 05:00: 00 Yes [id number] Number of Repeats Allowed: Frequency: Every 4 hours as needed heparin sodium, porcine 01-28 05:00: 00 Yes [id number] Number of Repeats Allowed: Frequency: Every Dialysis TreatmentD osesOrdere d: Hourly Dose 1000 Units/Hr 1:1000 Units/mLRo tyonek: Intravenou s clonidine 01-28 05:00: 00 Yes [id number] Number of Repeats Allowed: Frequency: Every 4 hours as needed Normal Saline Solution 0.9% NaCl 01-28 05:00: 00 Yes [id number] Number of Repeats Allowed: Frequency: As needed Oxygen 01-28 05:00: 00 Yes [id number] Number of Repeats Allowed: Frequency: As needed diphenhydra mine hydrochlori de 01-28 05:00: 00 Yes [id number] Number of Repeats Allowed: Frequency: Every 4 hours as needed Antacid Extra Strength 3-29 18:33: 16 Yes [id number] Number of Repeats Allowed: Frequency: Every 4 hours as needed Problems This patient has no known problems. Procedures Procedure Date / Time Performed Performing Clinician Carlene ce Details AV Fistula 2020-11-09 06:00:00 Access Site Forearm (Left) Access Use Start Date 2020-11-09 06:00:0 0 DIALYSIS TREATMENT INFORMATION Conventional Hemodialysis Date Type Treatment Start Date Treatment End Date Pre-Treatment Vitals Post-Treatment Vitals Weight Gain BFR DFR Actual UF Dialysis Access 2024 In-Ce nter Hemod ialys is Treat ment 2024-12-02 T12:11:04. 000Z 2024-12-02 T15:26:29. 000Z BP Sitting (Pre-Dialysis) 147/72 mmHg BP Sitting (Post-D ialysis ) 159/ 74 mmHg BP Standing (Pre-Dialysis) 136/71 mmHg BP Standing (P ost-Dialysis) 147/79 mmHg Sitting Heart Rate Pre-Dialysis 90 BPM Sitting Heart Rate Post-Dialysis 89 BPM Standing Heart Rate Pre-Dialysis 99 BPM Standing Heart Rate Post-Dialysis 95 BPM Temperature Pre-Dialysis 99.7 degF Temperature Post -Dialysis 97.5 degF November 30, 2024 In-Center Hemodialysis Treatment 6488-18-71B69:04:47.000Z 7012-72-96M53:36:52.000Z BP Sitting (Pre-Dialysis) 135/90 mmHg BP Sitting (Post-Dialysis) 132/77 mmHg Concurrent Access: falseAV Fistula Forearm (Left) Arterial BP Standing (Pre-Dialysis) 151/80 mmHg BP Standing (P ost-Dialysis) 115/74 mmHg Sitting Heart Rate Pre-Dialysis 85 BPM Sitting Heart Rate Post-Dialysis 78 BPM Standing Heart Rate Pre-Dialysis 87 BPM Standing Heart Rate Post-Dialysis 98 BPM Temperature Pre-Dialysis 97.3 degF Temperature Post -Dialysis 97.4 degF November 27, 2024 In-Center Hemodialysis Treatment 1779-87-56B36:04:36.000Z 1785-36-23X79:32:56.000Z BP Sitting (Pre-Dialysis) 116/78 mmHg BP Sitting (Post-Dialysis) 113/70 mmHg Concurrent Access: falseAV Fistula Forearm (Left) Arterial BP Standing (Pre-Dialysis) 147/73 mmHg BP Standing (P ost-Dialysis) 112/73 mmHg Sitting Heart Rate Pre-Dialysis 84 BPM Sitting Heart Rate Post-Dialysis 99 BPM Standing Heart Rate Pre-Dialysis 84 BPM Standing Heart Rate Post-Dialysis 99 BPM Temperature Pre-Dialysis 98.4 degF Temperature Post -Dialysis 97.6 degF November 25, 2024 In-Center Hemodialysis Treatment 3669-52-36K98:11:58.000Z 3599-58-43Z20:41:58.000Z BP Sitting (Pre-Dialysis) 136/74 mmHg BP Sitting (Post-Dialysis) 137/80 mmHg Concurrent Access: falseAV Fistula Forearm (Left) Arterial BP Standing (Pre-Dialysis) 136/71 mmHg Sitti ng Heart Rate Post-Dialysis 84 BPM Sitting Heart Rate Pre-Dialysis 78 BPM Temperatu re Post-Dialysis 97.4 degF Standing Heart Rate Pre-Dialysis 75 BPM Temperature Pre-Dialysis 97.3 degF November 23, 2024 In-Center Hemodialysis Treatment 2692-27-91Z63:10:24.000Z 1165-65-88A54:38:44.000Z BP Sitting (Pre-Dialysis) 140/71 mmHg BP Sitting (Post-Dialysis) 140/79 mmHg Concurrent Access: falseAV Fistula Forearm (Left) Arterial BP Standing (Pre-Dialysis) 130/67 mmHg BP Standing (P ost-Dialysis) 145/81 mmHg Sitting Heart Rate Pre-Dialysis 69 BPM Sitting Heart Rate Post-Dialysis 81 BPM Standing Heart Rate Pre-Dialysis 73 BPM Standing Heart Rate Post-Dialysis 90 BPM Temperature Pre-Dialysis 97.7 degF Temperature Post -Dialysis 97.6 degF November 20, 2024 In-Center Hemodialysis Treatment 4003-45-31W87:07:00.000Z 5520-97-75O47:39:08.000Z BP Sitting (Pre-Dialysis) 135/69 mmHg BP Sitting (Post-Dialysis) 133/66 mmHg Concurrent Access: falseAV Fistula Forearm (Left) Arterial BP Standing (Pre-Dialysis) 136/94 mmHg BP Standing (P ost-Dialysis) 124/84 mmHg Sitting Heart Rate Pre-Dialysis 82 BPM Sitting Heart Rate Post-Dialysis 75 BPM Standing Heart Rate Pre-Dialysis 95 BPM Standing Heart Rate Post-Dialysis 96 BPM Temperature Pre-Dialysis 97.8 degF Temperature Post -Dialysis 97.3 degF November 18, 2024 In-Center Hemodialysis Treatment 4266-14-58E20:08:19.000Z 4884-06-28M84:35:49.000Z BP Sitting (Pre-Dialysis) 119/64 mmHg BP Sitting (Post-Dialysis) 137/79 mmHg Concurrent Access: falseAV Fistula Forearm (Left) Arterial BP Standing (Pre-Dialysis) 139/77 mmHg Sitti ng Heart Rate Post-Dialysis 70 BPM Sitting Heart Rate Pre-Dialysis 77 BPM Temperatu re Post-Dialysis 97.6 degF Standing Heart Rate Pre-Dialysis 81 BPM Temperature Pre-Dialysis 98.1 degF November 16, 2024 In-Center Hemodialysis Treatment 6940-27-98S87:15:33.000Z 2072-63-86V19:45:33.000Z BP Sitting (Pre-Dialysis) 141/73 mmHg BP Sitting (Post-Dialysis) 148/79 mmHg Concurrent Access: falseAV Fistula Forearm (Left) Arterial BP Standing (Pre-Dialysis) 142/74 mmHg BP Standing (P ost-Dialysis) 149/82 mmHg Sitting Heart Rate Pre-Dialysis 83 BPM Sitting Heart Rate Post-Dialysis 89 BPM Standing Heart Rate Pre-Dialysis 85 BPM Standing Heart Rate Post-Dialysis 93 BPM Temperature Pre-Dialysis 97 degF Temperature Post -Dialysis 97.5 degF November 13, 2024 In-Center Hemodialysis Treatment 3936-35-59K54:11:37.000Z 3035-38-17P57:41:37.000Z BP Sitting (Pre-Dialysis) 135/73 mmHg BP Sitting (Post-Dialysis) 122/82 mmHg Concurrent Access: falseAV Fistula Forearm (Left) Arterial BP Standing (Pre-Dialysis) 142/70 mmHg BP Standing (P ost-Dialysis) 137/74 mmHg Sitting Heart Rate Pre-Dialysis 88 BPM Sitting Heart Rate Post-Dialysis 98 BPM Standing Heart Rate Pre-Dialysis 94 BPM Standing Heart Rate Post-Dialysis 100 BPM Temperature Pre-Dialysis 97.6 degF Temperature Post -Dialysis 97.4 degF November 11, 2024 In-Center Hemodialysis Treatment 9653-56-01Z34:08:37.000Z 9156-13-24E45:34:27.000Z BP Sitting (Pre-Dialysis) 130/80 mmHg BP Sitting (Post-Dialysis) 147/89 mmHg Concurrent Access: falseAV Fistula Forearm (Left) Arterial BP Standing (Pre-Dialysis) 132/80 mmHg Sitti ng Heart Rate Post-Dialysis 90 BPM Sitting Heart Rate Pre-Dialysis 93 BPM Temperatu re Post-Dialysis 97.6 degF Standing Heart Rate Pre-Dialysis 99 BPM Temperature Pre-Dialysis 97.7 degF November 09, 2024 In-Center Hemodialysis Treatment 8584-24-20Y53:12:44.000Z 8814-90-73W48:33:09.000Z BP Sitting (Pre-Dialysis) 162/91 mmHg BP Sitting (Post-Dialysis) 128/65 mmHg Concurrent Access: falseAV Fistula Forearm (Left) Arterial BP Standing (Pre-Dialysis) 147/86 mmHg BP Standing (P ost-Dialysis) 131/81 mmHg Sitting Heart Rate Pre-Dialysis 99 BPM Sitting Heart Rate Post-Dialysis 101 BPM Standing Heart Rate Pre-Dialysis 95 BPM Standing Heart Rate Post-Dialysis 114 BPM Temperature Pre-Dialysis 98.4 degF Temperature Post -Dialysis 97.8 degF November 06, 2024 In-Center Hemodialysis Treatment 9189-52-68Y17:11:17.000Z 8650-70-68L79:41:17.000Z BP Sitting (Pre-Dialysis) 147/67 mmHg BP Sitting (Post-Dialysis) 153/90 mmHg Concurrent Access: falseAV Fistula Forearm (Left) Arterial BP Standing (Pre-Dialysis) 160/87 mmHg Sitti ng Heart Rate Post-Dialysis 68 BPM Sitting Heart Rate Pre-Dialysis 77 BPM Temperatu re Post-Dialysis 97.6 degF Standing Heart Rate Pre-Dialysis 85 BPM Temperature Pre-Dialysis 98.1 degF November 04, 2024 In-Center Hemodialysis Treatment 4886-87-07F66:14:27.000Z 1412-25-58O02:44:02.000Z BP Sitting (Pre-Dialysis) 115/68 mmHg BP Sitting (Post-Dialysis) 158/79 mmHg Concurrent Access: falseAV Fistula Forearm (Left) Arterial BP Standing (Pre-Dialysis) 149/75 mmHg Sitti ng Heart Rate Post-Dialysis 71 BPM Sitting Heart Rate Pre-Dialysis 72 BPM Temperatu re Post-Dialysis 97.7 degF Standing Heart Rate Pre-Dialysis 75 BPM Temperature Pre-Dialysis 97.9 degF October 30, 2024 In-Center Hemodialysis Treatment 3710-91-29Q59:08:00.000Z 2653-08-38S94:38:53.000Z BP Sitting (Pre-Dialysis) 133/69 mmHg BP Sitting (Post-Dialysis) 122/78 mmHg Concurrent Access: falseAV Fistula Forearm (Left) Arterial BP Standing (Pre-Dialysis) 144/61 mmHg Sitting Heart Rate Post-Dialysis 81 BPM Sitting Heart Rate Pre-Dialysis 77 BPM Standing Heart Rate Pre-Dialysis 77 BPM Temperature Pre-Dialysis 97.5 degF October 27, 2024 In-Center Hemodialysis Treatment 6632-02-98L74:24:35.000Z 9929-24-36D04:51:40.000Z BP Sitting (Pre-Dialysis) 129/70 mmHg BP Sitting (Post-Dialysis) 134/77 mmHg Concurrent Access: falseAV Fistula Forearm (Left) Arterial BP Standing (Pre-Dialysis) 126/80 mmHg Sitti ng Heart Rate Post-Dialysis 75 BPM Sitting Heart Rate Pre-Dialysis 84 BPM Temperatu re Post-Dialysis 97.2 degF Standing Heart Rate Pre-Dialysis 93 BPM Temperature Pre-Dialysis 97.2 degF October 26, 2024 In-Center Hemodialysis Treatment 7191-10-81B16:08:00.000Z 0283-95-59D77:37:42.000Z BP Sitting (Pre-Dialysis) 122/71 mmHg BP Sitting (Post-Dialysis) 134/77 mmHg Concurrent Access: falseAV Fistula Forearm (Left) Arterial BP Standing (Pre-Dialysis) 142/75 mmHg BP Standing (P ost-Dialysis) 134/74 mmHg Sitting Heart Rate Pre-Dialysis 78 BPM Sitting Heart Rate Post-Dialysis 87 BPM Standing Heart Rate Pre-Dialysis 91 BPM Standing Heart Rate Post-Dialysis 80 BPM Temperature Pre-Dialysis 97.6 degF Temperature Post -Dialysis 98.2 degF October 23, 2024 In-Center Hemodialysis Treatment [id number]:16:22.000Z 1217-25-93X86:46:22.000Z BP Sitting (Pre-Dialysis) 130/69 mmHg BP Sitting (Post-Dialysis) 152/82 mmHg Concurrent Access: falseAV Fistula Forearm (Left) Arterial BP Standing (Pre-Dialysis) 128/71 mmHg BP Standing (P ost-Dialysis) 117/82 mmHg Sitting Heart Rate Pre-Dialysis 81 BPM Sitting Heart Rate Post-Dialysis 69 BPM Standing Heart Rate Pre-Dialysis 85 BPM Standing Heart Rate Post-Dialysis 86 BPM Temperature Pre-Dialysis 97.9 degF Temperature Post -Dialysis 97.5 degF October 20, 2024 In-Center Hemodialysis Treatment [id number]:15:12.000Z 6186-47-04R38:45:37.000Z BP Sitting (Pre-Dialysis) 137/77 mmHg BP Sitting (Post-Dialysis) 135/70 mmHg Concurrent Access: falseAV Fistula Forearm (Left) Arterial Sitting Heart Rate Pre-Dialysis 114 BPM Sitting H eart Rate Post-Dialysis 87 BPM Temperature Pre-Dialysis 98.2 degF Temperature Post -Dialysis 97.3 degF October 19, 2024 In-Center Hemodialysis Treatment 3726-18-81C58:09:00.000Z 1487-23-27J59:40:47.000Z BP Sitting (Pre-Dialysis) 145/73 mmHg BP Sitting (Post-Dialysis) 159/65 mmHg Concurrent Access: falseAV Fistula Forearm (Left) Arterial BP Standing (Pre-Dialysis) 129/69 mmHg BP Standing (P ost-Dialysis) 141/76 mmHg Sitting Heart Rate Pre-Dialysis 90 BPM Sitting Heart Rate Post-Dialysis 80 BPM Standing Heart Rate Pre-Dialysis 96 BPM Standing Heart Rate Post-Dialysis 79 BPM Temperature Pre-Dialysis 97.8 degF Temperature Post -Dialysis 97.2 degF October 16, 2024 In-Center Hemodialysis Treatment 2244-00-43S34:12:01.000Z 2329-06-93E38:47:01.000Z BP Sitting (Pre-Dialysis) 120/70 mmHg BP Sitting (Post-Dialysis) 137/75 mmHg Concurrent Access: falseAV Fistula Forearm (Left) Arterial BP Standing (Pre-Dialysis) 119/66 mmHg BP Standing (P ost-Dialysis) 139/74 mmHg Sitting Heart Rate Pre-Dialysis 89 BPM Sitting Heart Rate Post-Dialysis 93 BPM Standing Heart Rate Pre-Dialysis 97 BPM Standing Heart Rate Post-Dialysis 100 BPM Temperature Pre-Dialysis 97 degF Temperature Post -Dialysis 98.2 degF October 14, 2024 In-Center Hemodialysis Treatment [id number]:07:44.000Z 5320-97-83A30:44:49.000Z BP Sitting (Pre-Dialysis) 142/78 mmHg BP Sitting (Post-Dialysis) 143/73 mmHg Concurrent Access: falseAV Fistula Forearm (Left) Arterial BP Standing (Pre-Dialysis) 143/71 mmHg BP Standing (P ost-Dialysis) 158/73 mmHg Sitting Heart Rate Pre-Dialysis 103 BPM Sitting Heart Rate Post-Dialysis 102 BPM Standing Heart Rate Pre-Dialysis 106 BPM Standing Heart Rate Post-Dialysis 113 BPM Temperature Pre-Dialysis 98.1 degF Temperature Post -Dialysis 97.5 degF October 12, 2024 In-Center Hemodialysis Treatment 5082-74-95A77:08:00.000Z 6120-37-04Q67:39:56.000Z BP Sitting (Pre-Dialysis) 113/65 mmHg BP Sitting (Post-Dialysis) 161/72 mmHg Concurrent Access: falseAV Fistula Forearm (Left) Arterial BP Standing (Pre-Dialysis) 114/72 mmHg BP Standing (P ost-Dialysis) 132/78 mmHg Sitting Heart Rate Pre-Dialysis 112 BPM Sitting Heart Rate Post-Dialysis 115 BPM Standing Heart Rate Pre-Dialysis 118 BPM Standing Heart Rate Post-Dialysis 123 BPM Temperature Pre-Dialysis 97.8 degF Temperature Post -Dialysis 97.3 degF October 09, 2024 In-Center Hemodialysis Treatment 4663-44-24Q03:08:21.000Z 2271-71-05P50:32:31.000Z BP Sitting (Pre-Dialysis) 134/69 mmHg BP Sitting (Post-Dialysis) 127/69 mmHg Concurrent Access: falseAV Fistula Forearm (Left) Arterial BP Standing (Pre-Dialysis) 148/90 mmHg BP Standing (P ost-Dialysis) 133/75 mmHg Sitting Heart Rate Pre-Dialysis 92 BPM Sitting Heart Rate Post-Dialysis 106 BPM Standing Heart Rate Pre-Dialysis 90 BPM Standing Heart Rate Post-Dialysis 118 BPM Temperature Pre-Dialysis 97.2 degF Temperature Post -Dialysis 97.2 degF October 07, 2024 In-Center Hemodialysis Treatment 8040-36-88Q50:07:00.000Z 1989-55-16D21:38:05.000Z BP Sitting (Pre-Dialysis) 118/75 mmHg BP Sitting (Post-Dialysis) 148/80 mmHg Concurrent Access: falseAV Fistula Forearm (Left) Arterial BP Standing (Pre-Dialysis) 138/72 mmHg Sitti ng Heart Rate Post-Dialysis 82 BPM Sitting Heart Rate Pre-Dialysis 78 BPM Temperatu re Post-Dialysis 97.6 degF Standing Heart Rate Pre-Dialysis 88 BPM Temperature Pre-Dialysis 97.5 degF October 05, 2024 In-Center Hemodialysis Treatment 5590-70-03C22:11:47.000Z 6369-51-16O08:41:47.000Z BP Sitting (Pre-Dialysis) 146/69 mmHg BP Sitting (Post-Dialysis) 126/65 mmHg Concurrent Access: falseAV Fistula Forearm (Left) Arterial BP Standing (Pre-Dialysis) 140/72 mmHg BP Standing (P ost-Dialysis) 124/62 mmHg Sitting Heart Rate Pre-Dialysis 82 BPM Sitting Heart Rate Post-Dialysis 83 BPM Standing Heart Rate Pre-Dialysis 84 BPM Standing Heart Rate Post-Dialysis 80 BPM Temperature Pre-Dialysis 97.5 degF Temperature Post -Dialysis 97.2 degF October 02, 2024 In-Center Hemodialysis Treatment 6261-53-26L18:12:49.000Z 6579-15-82C32:42:24.000Z BP Sitting (Pre-Dialysis) 134/74 mmHg BP Sitting (Post-Dialysis) 136/86 mmHg Concurrent Access: falseAV Fistula Forearm (Left) Arterial BP Standing (Pre-Dialysis) 105/79 mmHg Sitti ng Heart Rate Post-Dialysis 84 BPM Sitting Heart Rate Pre-Dialysis 87 BPM Temperatu re Post-Dialysis 97.4 degF Standing Heart Rate Pre-Dialysis 103 BPM Temperature Pre-Dialysis 97.9 degF September 30, 2024 In-Center Hemodialysis Treatment 3697-98-92C07:04:54.000Z 9260-15-31R12:34:54.000Z BP Sitting (Pre-Dialysis) 158/75 mmHg BP Sitting (Post-Dialysis) 144/78 mmHg Concurrent Access: falseAV Fistula Forearm (Left) Arterial BP Standing (Pre-Dialysis) 153/85 mmHg Sitti ng Heart Rate Post-Dialysis 69 BPM Sitting Heart Rate Pre-Dialysis 87 BPM Temperatu re Post-Dialysis 97.8 degF Standing Heart Rate Pre-Dialysis 94 BPM Temperature Pre-Dialysis 98.2 degF September 28, 2024 In-Center Hemodialysis Treatment 4812-11-31V07:16:12.000Z 4705-59-87A40:46:12.000Z BP Sitting (Pre-Dialysis) 133/76 mmHg BP Sitting (Post-Dialysis) 133/76 mmHg Concurrent Access: falseAV Fistula Forearm (Left) Arterial BP Standing (Pre-Dialysis) 161/76 mmHg BP Standing (P ost-Dialysis) 126/89 mmHg Sitting Heart Rate Pre-Dialysis 81 BPM Sitting Heart Rate Post-Dialysis 91 BPM Standing Heart Rate Pre-Dialysis 89 BPM Standing Heart Rate Post-Dialysis 101 BPM Temperature Pre-Dialysis 97.8 degF Temperature Post -Dialysis 97.8 degF September 25, 2024 In-Center Hemodialysis Treatment 6139-91-06Y98:06:00.000Z 4873-16-77B33:38:09.000Z BP Sitting (Pre-Dialysis) 134/65 mmHg BP Sitting (Post-Dialysis) 145/70 mmHg Concurrent Access: falseAV Fistula Forearm (Left) Arterial BP Standing (Pre-Dialysis) 140/80 mmHg BP Standing (P ost-Dialysis) 136/73 mmHg Sitting Heart Rate Pre-Dialysis 77 BPM Sitting Heart Rate Post-Dialysis 90 BPM Standing Heart Rate Pre-Dialysis 85 BPM Standing Heart Rate Post-Dialysis 91 BPM Temperature Pre-Dialysis 97.8 degF Temperature Post -Dialysis 97.2 degF September 23, 2024 In-Center Hemodialysis Treatment 0365-17-05U44:15:29.000Z 8574-76-64U74:42:09.000Z BP Sitting (Pre-Dialysis) 146/82 mmHg BP Sitting (Post-Dialysis) 126/41 mmHg Concurrent Access: falseAV Fistula Forearm (Left) Arterial BP Standing (Pre-Dialysis) 149/51 mmHg BP Standing (P ost-Dialysis) 119/69 mmHg Sitting Heart Rate Pre-Dialysis 87 BPM Sitting Heart Rate Post-Dialysis 79 BPM Standing Heart Rate Pre-Dialysis 93 BPM Standing Heart Rate Post-Dialysis 72 BPM Temperature Pre-Dialysis 98.1 degF Temperature Post -Dialysis 97.8 degF September 21, 2024 In-Center Hemodialysis Treatment 5280-36-11L02:10:07.000Z 0457-63-56E13:40:32.000Z BP Sitting (Pre-Dialysis) 144/71 mmHg BP Sitting (Post-Dialysis) 135/76 mmHg Concurrent Access: falseAV Fistula Forearm (Left) Arterial BP Standing (Pre-Dialysis) 139/76 mmHg Sitti ng Heart Rate Post-Dialysis 77 BPM Sitting Heart Rate Pre-Dialysis 77 BPM Temperatu re Post-Dialysis 97.6 degF Standing Heart Rate Pre-Dialysis 82 BPM Temperature Pre-Dialysis 97.4 degF September 18, 2024 In-Center Hemodialysis Treatment 0064-69-50U56:09:21.000Z 6838-63-23K87:40:11.000Z BP Sitting (Pre-Dialysis) 123/61 mmHg BP Sitting (Post-Dialysis) 117/85 mmHg Concurrent Access: falseAV Fistula Forearm (Left) Arterial BP Standing (Pre-Dialysis) 128/71 mmHg Sitti ng Heart Rate Post-Dialysis 78 BPM Sitting Heart Rate Pre-Dialysis 82 BPM Temperatu re Post-Dialysis 97.8 degF Standing Heart Rate Pre-Dialysis 82 BPM Temperature Pre-Dialysis 97.5 degF September 16, 2024 In-Center Hemodialysis Treatment 9366-36-38C04:05:00.000Z 9125-99-72N25:38:32.000Z BP Sitting (Pre-Dialysis) 140/85 mmHg BP Sitting (Post-Dialysis) 123/82 mmHg Concurrent Access: falseAV Fistula Forearm (Left) Arterial BP Standing (Pre-Dialysis) 145/97 mmHg Sitti ng Heart Rate Post-Dialysis 90 BPM Sitting Heart Rate Pre-Dialysis 91 BPM Temperatu re Post-Dialysis 97.8 degF Standing Heart Rate Pre-Dialysis 85 BPM Temperature Pre-Dialysis 97.6 degF September 14, 2024 In-Center Hemodialysis Treatment 1109-10-53A25:15:32.000Z 2260-26-69P60:34:42.000Z BP Sitting (Pre-Dialysis) 137/66 mmHg BP Sitting (Post-Dialysis) 134/78 mmHg Concurrent Access: falseAV Fistula Forearm (Left) Arterial BP Standing (Pre-Dialysis) 155/88 mmHg BP Standing (P ost-Dialysis) 143/84 mmHg Sitting Heart Rate Pre-Dialysis 79 BPM Sitting Heart Rate Post-Dialysis 87 BPM Standing Heart Rate Pre-Dialysis 81 BPM Standing Heart Rate Post-Dialysis 98 BPM Temperature Pre-Dialysis 98.4 degF Temperature Post -Dialysis 97.8 degF September 11, 2024 In-Center Hemodialysis Treatment 7161-43-05X71:13:03.000Z 5495-18-53M47:42:38.000Z BP Sitting (Pre-Dialysis) 128/69 mmHg BP Sitting (Post-Dialysis) 135/77 mmHg Concurrent Access: falseAV Fistula Forearm (Left) Arterial BP Standing (Pre-Dialysis) 126/80 mmHg BP Standing (P ost-Dialysis) 149/73 mmHg Sitting Heart Rate Pre-Dialysis 79 BPM Sitting Heart Rate Post-Dialysis 91 BPM Standing Heart Rate Pre-Dialysis 89 BPM Standing Heart Rate Post-Dialysis 91 BPM Temperature Pre-Dialysis 97 degF Temperature Post -Dialysis 97.2 degF September 09, 2024 In-Center Hemodialysis Treatment 5036-33-50J59:12:35.000Z 1666-29-33T26:50:05.000Z BP Sitting (Pre-Dialysis) 131/74 mmHg BP Sitting (Post-Dialysis) 139/78 mmHg Concurrent Access: falseAV Fistula Forearm (Left) Arterial BP Standing (Pre-Dialysis) 118/75 mmHg BP Standing (P ost-Dialysis) 147/79 mmHg Sitting Heart Rate Pre-Dialysis 87 BPM Sitting Heart Rate Post-Dialysis 75 BPM Standing Heart Rate Pre-Dialysis 93 BPM Standing Heart Rate Post-Dialysis 77 BPM Temperature Pre-Dialysis 97.3 degF Temperature Post -Dialysis 97.3 degF September 07, 2024 In-Center Hemodialysis Treatment 9864-61-14G22:09:00.000Z 0922-15-84Q06:40:25.000Z BP Sitting (Pre-Dialysis) 145/77 mmHg BP Sitting (Post-Dialysis) 127/81 mmHg Concurrent Access: falseAV Fistula Forearm (Left) Arterial BP Standing (Pre-Dialysis) 149/73 mmHg Sitti ng Heart Rate Post-Dialysis 68 BPM Sitting Heart Rate Pre-Dialysis 75 BPM Temperatu re Post-Dialysis 97.4 degF Standing Heart Rate Pre-Dialysis 78 BPM Temperature Pre-Dialysis 97.5 degF September 04, 2024 In-Center Hemodialysis Treatment 9356-05-80Q97:14:55.000Z 1075-40-88E43:45:20.000Z BP Sitting (Pre-Dialysis) 132/63 mmHg BP Sitting (Post-Dialysis) 130/69 mmHg Concurrent Access: falseAV Fistula Forearm (Left) Arterial BP Standing (Pre-Dialysis) 127/65 mmHg BP Standing (P ost-Dialysis) 117/65 mmHg Sitting Heart Rate Pre-Dialysis 80 BPM Sitting Heart Rate Post-Dialysis 76 BPM Standing Heart Rate Pre-Dialysis 79 BPM Standing Heart Rate Post-Dialysis 75 BPM Temperature Pre-Dialysis 97.2 degF Temperature Post -Dialysis 97.2 degF September 02, 2024 In-Center Hemodialysis Treatment 2375-22-97Q76:30:21.000Z 6807-86-06E38:59:56.000Z BP Sitting (Pre-Dialysis) 159/106 mmHg BP Sitting (Post-Dialysis) 138/81 mmHg Concurrent Access: falseAV Fistula Forearm (Left) Arterial BP Standing (Pre-Dialysis) 160/81 mmHg BP Standing (P ost-Dialysis) 129/90 mmHg Sitting Heart Rate Pre-Dialysis 78 BPM Sitting Heart Rate Post-Dialysis 81 BPM Standing Heart Rate Pre-Dialysis 90 BPM Standing Heart Rate Post-Dialysis 85 BPM Temperature Pre-Dialysis 97.2 degF Temperature Post -Dialysis 97.6 degF August 31, 2024 In-Center Hemodialysis Treatment 7642-08-89G69:26:54.000Z 8473-51-60I28:57:19.000Z BP Sitting (Pre-Dialysis) 128/66 mmHg BP Sitting (Post-Dialysis) 135/74 mmHg Concurrent Access: falseAV Fistula Forearm (Left) Arterial BP Standing (Pre-Dialysis) 116/69 mmHg BP Standing (P ost-Dialysis) 117/72 mmHg Sitting Heart Rate Pre-Dialysis 76 BPM Sitting Heart Rate Post-Dialysis 76 BPM Standing Heart Rate Pre-Dialysis 76 BPM Standing Heart Rate Post-Dialysis 75 BPM Temperature Pre-Dialysis 98.2 degF Temperature Post -Dialysis 97.2 degF August 28, 2024 In-Center Hemodialysis Treatment [id number]:45:12.000Z [id number]:14:47.000Z BP Sitting (Pre-Dialysis) 117/73 mmHg BP Sitting (Post-Dialysis) 136/80 mmHg Concurrent Access: falseAV Fistula Forearm (Left) Arterial BP Standing (Pre-Dialysis) 135/71 mmHg BP Standing (P ost-Dialysis) 117/79 mmHg Sitting Heart Rate Pre-Dialysis 83 BPM Sitting Heart Rate Post-Dialysis 88 BPM Standing Heart Rate Pre-Dialysis 87 BPM Standing Heart Rate Post-Dialysis 103 BPM Temperature Pre-Dialysis 97.7 degF Temperature Post -Dialysis 97.6 degF August 26, 2024 In-Center Hemodialysis Treatment [id number]:34:09.000Z [id number]:05:38.000Z BP Sitting (Pre-Dialysis) 120/70 mmHg BP Sitting (Post-Dialysis) 119/77 mmHg Concurrent Access: falseAV Fistula Forearm (Left) Arterial BP Standing (Pre-Dialysis) 126/73 mmHg Sitti ng Heart Rate Post-Dialysis 71 BPM Sitting Heart Rate Pre-Dialysis 71 BPM Temperatu re Post-Dialysis 97.6 degF Standing Heart Rate Pre-Dialysis 73 BPM Temperature Pre-Dialysis 97.8 degF August 24, 2024 In-Center Hemodialysis Treatment [id number]:36:00.000Z [id number]:03:43.000Z BP Sitting (Pre-Dialysis) 142/57 mmHg BP Sitting (Post-Dialysis) 133/85 mmHg Concurrent Access: falseAV Fistula Forearm (Left) Arterial BP Standing (Pre-Dialysis) 136/55 mmHg Sitti ng Heart Rate Post-Dialysis 77 BPM Sitting Heart Rate Pre-Dialysis 75 BPM Temperatu re Post-Dialysis 97.4 degF Standing Heart Rate Pre-Dialysis 76 BPM Temperature Pre-Dialysis 97.2 degF August 21, 2024 In-Center Hemodialysis Treatment [id number]:27:41.000Z [id number]:57:41.000Z BP Sitting (Pre-Dialysis) 17/65 mmHg BP Sitting (Post-Dialysis) 124/78 mmHg Concurrent Access: falseAV Fistula Forearm (Left) Arterial BP Standing (Pre-Dialysis) 131/68 mmHg Sitti ng Heart Rate Post-Dialysis 82 BPM Sitting Heart Rate Pre-Dialysis 85 BPM Temperatu re Post-Dialysis 97.6 degF Standing Heart Rate Pre-Dialysis 86 BPM Temperature Pre-Dialysis 97.2 degF August 19, 2024 In-Center Hemodialysis Treatment [id number]:32:46.000Z [id number]:01:56.000Z BP Sitting (Pre-Dialysis) 111/69 mmHg BP Sitting (Post-Dialysis) 119/88 mmHg Concurrent Access: falseAV Fistula Forearm (Left) Arterial BP Standing (Pre-Dialysis) 113/61 mmHg BP Standing (P ost-Dialysis) 129/77 mmHg Sitting Heart Rate Pre-Dialysis 70 BPM Sitting Heart Rate Post-Dialysis 76 BPM Standing Heart Rate Pre-Dialysis 69 BPM Standing Heart Rate Post-Dialysis 78 BPM Temperature Pre-Dialysis 97.2 degF Temperature Post -Dialysis 97.4 degF August 17, 2024 In-Center Hemodialysis Treatment [id number]:37:09.000Z [id number]:04:39.000Z BP Sitting (Pre-Dialysis) 118/65 mmHg BP Sitting (Post-Dialysis) 132/90 mmHg Concurrent Access: falseAV Fistula Forearm (Left) Arterial BP Standing (Pre-Dialysis) 121/67 mmHg BP Standing (P ost-Dialysis) 127/89 mmHg Sitting Heart Rate Pre-Dialysis 62 BPM Sitting Heart Rate Post-Dialysis 71 BPM Standing Heart Rate Pre-Dialysis 64 BPM Standing Heart Rate Post-Dialysis 70 BPM Temperature Pre-Dialysis 98.2 degF Temperature Post -Dialysis 97.2 degF August 14, 2024 In-Center Hemodialysis Treatment [id number]:32:21.000Z 1134-37-06H47:01:06.000Z BP Sitting (Pre-Dialysis) 120/64 mmHg BP Sitting (Post-Dialysis) 126/75 mmHg Concurrent Access: falseAV Fistula Forearm (Left) Arterial BP Standing (Pre-Dialysis) 122/67 mmHg Sitti ng Heart Rate Post-Dialysis 82 BPM Sitting Heart Rate Pre-Dialysis 77 BPM Temperatu re Post-Dialysis 97.7 degF Standing Heart Rate Pre-Dialysis 82 BPM Temperature Pre-Dialysis 98.1 degF August 12, 2024 In-Center Hemodialysis Treatment [id number]:25:02.000Z [id number]:58:47.000Z BP Sitting (Pre-Dialysis) 119/66 mmHg BP Sitting (Post-Dialysis) 143/77 mmHg Concurrent Access: falseAV Fistula Forearm (Left) Arterial BP Standing (Pre-Dialysis) 122/69 mmHg BP Standing (P ost-Dialysis) 133/78 mmHg Sitting Heart Rate Pre-Dialysis 73 BPM Sitting Heart Rate Post-Dialysis 66 BPM Standing Heart Rate Pre-Dialysis 77 BPM Standing Heart Rate Post-Dialysis 77 BPM Temperature Pre-Dialysis 98.1 degF Temperature Post -Dialysis 97.4 degF August 10, 2024 In-Center Hemodialysis Treatment [id number]:36:11.000Z [id number]:06:11.000Z BP Sitting (Pre-Dialysis) 128/67 mmHg BP Sitting (Post-Dialysis) 139/77 mmHg Concurrent Access: falseAV Fistula Forearm (Left) Arterial BP Standing (Pre-Dialysis) 115/68 mmHg BP Standing (P ost-Dialysis) 137/61 mmHg Sitting Heart Rate Pre-Dialysis 70 BPM Sitting Heart Rate Post-Dialysis 78 BPM Standing Heart Rate Pre-Dialysis 70 BPM Standing Heart Rate Post-Dialysis 76 BPM Temperature Pre-Dialysis 97.3 degF Temperature Post -Dialysis 97.2 degF August 07, 2024 In-Center Hemodialysis Treatment [id number]:20:49.000Z [id number]:50:24.000Z BP Sitting (Pre-Dialysis) 118/70 mmHg BP Sitting (Post-Dialysis) 140/60 mmHg Concurrent Access: falseAV Fistula Forearm (Left) Arterial BP Standing (Pre-Dialysis) 116/66 mmHg BP Standing (P ost-Dialysis) 150/78 mmHg Sitting Heart Rate Pre-Dialysis 76 BPM Sitting Heart Rate Post-Dialysis 73 BPM Standing Heart Rate Pre-Dialysis 74 BPM Standing Heart Rate Post-Dialysis 88 BPM Temperature Pre-Dialysis 97.9 degF Temperature Post -Dialysis 97.4 degF August 05, 2024 In-Center Hemodialysis Treatment [id number]:28:13.000Z 6940-14-55F89:00:04.000Z BP Sitting (Pre-Dialysis) 110/76 mmHg BP Sitting (Post-Dialysis) 134/73 mmHg Concurrent Access: falseAV Fistula Forearm (Left) Arterial BP Standing (Pre-Dialysis) 111/75 mmHg BP Standing (P ost-Dialysis) 111/70 mmHg Sitting Heart Rate Pre-Dialysis 72 BPM Sitting Heart Rate Post-Dialysis 78 BPM Standing Heart Rate Pre-Dialysis 75 BPM Standing Heart Rate Post-Dialysis 99 BPM Temperature Pre-Dialysis 97.2 degF Temperature Post -Dialysis 98.2 degF August 03, 2024 In-Center Hemodialysis Treatment [id number]:38:12.000Z [id number]:04:52.000Z BP Sitting (Pre-Dialysis) 160/114 mmHg BP Sitting (Post-Dialysis) 140/72 mmHg Concurrent Access: falseAV Fistula Forearm (Left) Arterial BP Standing (Pre-Dialysis) 137/97 mmHg BP Standing (P ost-Dialysis) 151/75 mmHg Sitting Heart Rate Pre-Dialysis 70 BPM Sitting Heart Rate Post-Dialysis 70 BPM Standing Heart Rate Pre-Dialysis 75 BPM Standing Heart Rate Post-Dialysis 71 BPM Temperature Pre-Dialysis 97.7 degF Temperature Post -Dialysis 97.2 degF July 31, 2024 In-Center Hemodialysis Treatment [id number]:25:31.000Z [id number]:55:06.000Z BP Sitting (Pre-Dialysis) 132/65 mmHg BP Sitting (Post-Dialysis) 138/75 mmHg Concurrent Access: falseAV Fistula Forearm (Left) Arterial BP Standing (Pre-Dialysis) 135/69 mmHg Sitti ng Heart Rate Post-Dialysis 91 BPM Sitting Heart Rate Pre-Dialysis 70 BPM Temperatu re Post-Dialysis 98.2 degF Standing Heart Rate Pre-Dialysis 78 BPM Temperature Pre-Dialysis 98.2 degF July 29, 2024 In-Center Hemodialysis Treatment [id number]:48:15.000Z 7827-90-03M72:24:05.000Z BP Sitting (Pre-Dialysis) 134/81 mmHg BP Sitting (Post-Dialysis) 125/78 mmHg Concurrent Access: falseAV Fistula Forearm (Left) Arterial BP Standing (Pre-Dialysis) 132/74 mmHg BP Standing (P ost-Dialysis) 120/86 mmHg Sitting Heart Rate Pre-Dialysis 78 BPM Sitting Heart Rate Post-Dialysis 74 BPM Standing Heart Rate Pre-Dialysis 78 BPM Standing Heart Rate Post-Dialysis 90 BPM Temperature Pre-Dialysis 98.1 degF Temperature Post -Dialysis 97.2 degF July 27, 2024 In-Center Hemodialysis Treatment [id number]:21:41.000Z [id number]:51:16.000Z BP Sitting (Pre-Dialysis) 112/67 mmHg BP Sitting (Post-Dialysis) 119/60 mmHg Concurrent Access: falseAV Fistula Forearm (Left) Arterial BP Standing (Pre-Dialysis) 128/68 mmHg Sitti ng Heart Rate Post-Dialysis 72 BPM Sitting Heart Rate Pre-Dialysis 66 BPM Temperatu re Post-Dialysis 97.2 degF Standing Heart Rate Pre-Dialysis 69 BPM Temperature Pre-Dialysis 97.5 degF July 24, 2024 In-Center Hemodialysis Treatment [id number]:29:00.000Z 6798-23-25L45:00:15.000Z BP Sitting (Pre-Dialysis) 112/66 mmHg BP Sitting (Post-Dialysis) 119/62 mmHg Concurrent Access: falseAV Fistula Forearm (Left) Arterial BP Standing (Pre-Dialysis) 121/73 mmHg BP Standing (P ost-Dialysis) 133/77 mmHg Sitting Heart Rate Pre-Dialysis 83 BPM Sitting Heart Rate Post-Dialysis 72 BPM Standing Heart Rate Pre-Dialysis 83 BPM Standing Heart Rate Post-Dialysis 84 BPM Temperature Pre-Dialysis 97.9 degF Temperature Post -Dialysis 97.2 degF July 22, 2024 In-Center Hemodialysis Treatment [id number]:23:07.000Z 9308-55-52P04:59:47.000Z BP Sitting (Pre-Dialysis) 124/67 mmHg BP Sitting (Post-Dialysis) 132/78 mmHg Concurrent Access: falseAV Fistula Forearm (Left) Arterial BP Standing (Pre-Dialysis) 131/73 mmHg BP Standing (P ost-Dialysis) 127/79 mmHg Sitting Heart Rate Pre-Dialysis 72 BPM Sitting Heart Rate Post-Dialysis 71 BPM Standing Heart Rate Pre-Dialysis 83 BPM Standing Heart Rate Post-Dialysis 87 BPM Temperature Pre-Dialysis 97.9 degF Temperature Post -Dialysis 98.3 degF July 20, 2024 In-Center Hemodialysis Treatment [id number]:23:38.000Z [id number]:55:43.000Z BP Sitting (Pre-Dialysis) 120/79 mmHg BP Sitting (Post-Dialysis) 134/85 mmHg Concurrent Access: falseAV Fistula Forearm (Left) Arterial BP Standing (Pre-Dialysis) 124/65 mmHg BP Standing (P ost-Dialysis) 132/76 mmHg Sitting Heart Rate Pre-Dialysis 76 BPM Sitting Heart Rate Post-Dialysis 90 BPM Standing Heart Rate Pre-Dialysis 74 BPM Standing Heart Rate Post-Dialysis 91 BPM Temperature Pre-Dialysis 97.5 degF Temperature Post -Dialysis 98.2 degF July 17, 2024 In-Center Hemodialysis Treatment [id number]:20:23.000Z [id number]:48:43.000Z BP Sitting (Pre-Dialysis) 140/75 mmHg BP Sitting (Post-Dialysis) 140/62 mmHg Concurrent Access: falseAV Fistula Forearm (Left) Arterial BP Standing (Pre-Dialysis) 135/65 mmHg BP Standing (P ost-Dialysis) 118/77 mmHg Sitting Heart Rate Pre-Dialysis 79 BPM Sitting Heart Rate Post-Dialysis 64 BPM Standing Heart Rate Pre-Dialysis 79 BPM Standing Heart Rate Post-Dialysis 79 BPM Temperature Pre-Dialysis 97.9 degF Temperature Post -Dialysis 97.4 degF July 15, 2024 In-Center Hemodialysis Treatment 1903-68-22L41:24:00.000Z 1916-97-64A69:56:46.000Z BP Sitting (Pre-Dialysis) 112/66 mmHg BP Sitting (Post-Dialysis) 108/57 mmHg Concurrent Access: falseAV Fistula Forearm (Left) Arterial BP Standing (Pre-Dialysis) 116/47 mmHg BP Standing (P ost-Dialysis) 118/73 mmHg Sitting Heart Rate Pre-Dialysis 82 BPM Sitting Heart Rate Post-Dialysis 70 BPM Standing Heart Rate Pre-Dialysis 83 BPM Standing Heart Rate Post-Dialysis 69 BPM Temperature Pre-Dialysis 97.9 degF Temperature Post -Dialysis 97.2 degF July 13, 2024 In-Center Hemodialysis Treatment [id number]:17:20.000Z [id number]:48:10.000Z BP Sitting (Pre-Dialysis) 122/66 mmHg BP Sitting (Post-Dialysis) 136/79 mmHg Concurrent Access: falseAV Fistula Forearm (Left) Arterial BP Standing (Pre-Dialysis) 126/68 mmHg Sitti ng Heart Rate Post-Dialysis 62 BPM Sitting Heart Rate Pre-Dialysis 82 BPM Temperatu re Post-Dialysis 97.2 degF Standing Heart Rate Pre-Dialysis 76 BPM Temperature Pre-Dialysis 97.6 degF July 10, 2024 In-Center Hemodialysis Treatment [id number]:19:45.000Z [id number]:50:10.000Z BP Sitting (Pre-Dialysis) 117/60 mmHg BP Sitting (Post-Dialysis) 132/73 mmHg Concurrent Access: falseAV Fistula Forearm (Left) Arterial BP Standing (Pre-Dialysis) 115/62 mmHg Sitti ng Heart Rate Post-Dialysis 62 BPM Sitting Heart Rate Pre-Dialysis 80 BPM Temperatu re Post-Dialysis 97.2 degF Standing Heart Rate Pre-Dialysis 79 BPM Temperature Pre-Dialysis 97.2 degF July 08, 2024 In-Center Hemodialysis Treatment [id number]:26:08.000Z 1286-54-49C83:59:03.000Z BP Sitting (Pre-Dialysis) 120/63 mmHg BP Sitting (Post-Dialysis) 120/75 mmHg Concurrent Access: falseAV Fistula Forearm (Left) Arterial BP Standing (Pre-Dialysis) 119/62 mmHg BP Standing (P ost-Dialysis) 115/72 mmHg Sitting Heart Rate Pre-Dialysis 78 BPM Sitting Heart Rate Post-Dialysis 87 BPM Standing Heart Rate Pre-Dialysis 78 BPM Standing Heart Rate Post-Dialysis 85 BPM Temperature Pre-Dialysis 97.2 degF Temperature Post -Dialysis 97.2 degF July 06, 2024 In-Center Hemodialysis Treatment [id number]:36:08.000Z 8968-04-58G69:05:18.000Z BP Sitting (Pre-Dialysis) 125/70 mmHg BP Sitting (Post-Dialysis) 135/77 mmHg Concurrent Access: falseAV Fistula Forearm (Left) Arterial BP Standing (Pre-Dialysis) 129/67 mmHg BP Standing (P ost-Dialysis) 136/76 mmHg Sitting Heart Rate Pre-Dialysis 69 BPM Sitting Heart Rate Post-Dialysis 66 BPM Standing Heart Rate Pre-Dialysis 68 BPM Standing Heart Rate Post-Dialysis 65 BPM Temperature Pre-Dialysis 97.7 degF Temperature Post -Dialysis 97.2 degF July 03, 2024 In-Center Hemodialysis Treatment [id number]:17:00.000Z 6726-76-25R61:05:31.000Z BP Sitting (Pre-Dialysis) 122/67 mmHg Temperature Post-Dialysis 97.4 degF Concurrent Access: falseAV Fistula Forearm (Left) Arterial BP Standing (Pre-Dialysis) 130/69 mmHg Sitting Heart Rate Pre-Dialysis 70 BPM Standing Heart Rate Pre-Dialysis 74 BPM Temperature Pre-Dialysis 98.2 degF July 01, 2024 In-Center Hemodialysis Treatment [id number]:22:30.000Z 7450-30-31B21:50:00.000Z BP Sitting (Pre-Dialysis) 112/66 mmHg BP Sitting (Post-Dialysis) 142/82 mmHg Concurrent Access: falseAV Fistula Forearm (Left) Arterial BP Standing (Pre-Dialysis) 122/62 mmHg BP Standing (P ost-Dialysis) 126/76 mmHg Sitting Heart Rate Pre-Dialysis 79 BPM Sitting Heart Rate Post-Dialysis 66 BPM Standing Heart Rate Pre-Dialysis 79 BPM Standing Heart Rate Post-Dialysis 80 BPM Temperature Pre-Dialysis 97.2 degF Temperature Post -Dialysis 97.2 degF June 29, 2024 In-Center Hemodialysis Treatment 0520-15-87D99:29:48.000Z 4260-96-46X15:59:48.000Z BP Sitting (Pre-Dialysis) 116/53 mmHg BP Sitting (Post-Dialysis) 140/76 mmHg Concurrent Access: falseAV Fistula Forearm (Left) Arterial BP Standing (Pre-Dialysis) 108/54 mmHg BP Standing (P ost-Dialysis) 137/63 mmHg Sitting Heart Rate Pre-Dialysis 75 BPM Sitting Heart Rate Post-Dialysis 67 BPM Standing Heart Rate Pre-Dialysis 76 BPM Standing Heart Rate Post-Dialysis 78 BPM Temperature Pre-Dialysis 97.2 degF Temperature Post -Dialysis 97.6 degF June 26, 2024 In-Center Hemodialysis Treatment [id number]:25:28.000Z 3620-71-94T65:55:03.000Z BP Sitting (Pre-Dialysis) 106/73 mmHg BP Sitting (Post-Dialysis) 134/80 mmHg Concurrent Access: falseAV Fistula Forearm (Left) Arterial BP Standing (Pre-Dialysis) 124/69 mmHg Sitti ng Heart Rate Post-Dialysis 72 BPM Sitting Heart Rate Pre-Dialysis 80 BPM Temperatu re Post-Dialysis 97.4 degF Standing Heart Rate Pre-Dialysis 82 BPM Temperature Pre-Dialysis 97.2 degF June 24, 2024 In-Center Hemodialysis Treatment 4873-18-27V15:21:31.000Z [id number]:49:26.000Z BP Sitting (Pre-Dialysis) 148/76 mmHg BP Sitting (Post-Dialysis) 134/76 mmHg Concurrent Access: falseAV Fistula Forearm (Left) Arterial BP Standing (Pre-Dialysis) 118/65 mmHg BP Standing (P ost-Dialysis) 141/77 mmHg Sitting Heart Rate Pre-Dialysis 76 BPM Sitting Heart Rate Post-Dialysis 70 BPM Standing Heart Rate Pre-Dialysis 84 BPM Standing Heart Rate Post-Dialysis 74 BPM Temperature Pre-Dialysis 98.2 degF Temperature Post -Dialysis 97.2 degF June 22, 2024 In-Center Hemodialysis Treatment [id number]:41:13.000Z 2454-19-44F35:57:03.000Z BP Sitting (Pre-Dialysis) 128/72 mmHg BP Sitting (Post-Dialysis) 131/71 mmHg Concurrent Access: falseAV Fistula Forearm (Left) Arterial Sitting Heart Rate Pre-Dialysis 65 BPM Sitting H eart Rate Post-Dialysis 62 BPM Temperature Pre-Dialysis 97.5 degF Temperature Post -Dialysis 97.5 degF June 19, 2024 In-Center Hemodialysis Treatment [id number]:19:00.000Z [id number]:48:13.000Z BP Sitting (Pre-Dialysis) 134/73 mmHg BP Sitting (Post-Dialysis) 134/82 mmHg Concurrent Access: falseAV Fistula Forearm (Left) Arterial BP Standing (Pre-Dialysis) 124/77 mmHg BP Standing (P ost-Dialysis) 120/80 mmHg Sitting Heart Rate Pre-Dialysis 73 BPM Sitting Heart Rate Post-Dialysis 66 BPM Standing Heart Rate Pre-Dialysis 84 BPM Standing Heart Rate Post-Dialysis 85 BPM Temperature Pre-Dialysis 97.8 degF Temperature Post -Dialysis 97 degF June 17, 2024 In-Center Hemodialysis Treatment [id number]:27:00.000Z [id number]:58:37.000Z BP Sitting (Pre-Dialysis) 123/62 mmHg BP Sitting (Post-Dialysis) 132/71 mmHg Concurrent Access: falseAV Fistula Forearm (Left) Arterial BP Standing (Pre-Dialysis) 117/69 mmHg BP Standing (P ost-Dialysis) 134/70 mmHg Sitting Heart Rate Pre-Dialysis 73 BPM Sitting Heart Rate Post-Dialysis 65 BPM Standing Heart Rate Pre-Dialysis 74 BPM Standing Heart Rate Post-Dialysis 76 BPM Temperature Pre-Dialysis 97.8 degF Temperature Post -Dialysis 97.6 degF June 15, 2024 In-Center Hemodialysis Treatment [id number]:29:19.000Z [id number]:58:29.000Z BP Sitting (Pre-Dialysis) 123/71 mmHg BP Sitting (Post-Dialysis) 127/82 mmHg Concurrent Access: falseAV Fistula Forearm (Left) Arterial BP Standing (Pre-Dialysis) 125/66 mmHg BP Standing (P ost-Dialysis) 128/73 mmHg Sitting Heart Rate Pre-Dialysis 75 BPM Sitting Heart Rate Post-Dialysis 75 BPM Standing Heart Rate Pre-Dialysis 80 BPM Standing Heart Rate Post-Dialysis 79 BPM Temperature Pre-Dialysis 97.2 degF Temperature Post -Dialysis 97 degF June 12, 2024 In-Center Hemodialysis Treatment [id number]:20:00.000Z 3436-98-58A05:52:01.000Z BP Sitting (Pre-Dialysis) 135/68 mmHg BP Sitting (Post-Dialysis) 117/65 mmHg Concurrent Access: falseAV Fistula Forearm (Left) Arterial BP Standing (Pre-Dialysis) 170/106 mmHg BP Standing (P ost-Dialysis) 115/66 mmHg Sitting Heart Rate Pre-Dialysis 75 BPM Sitting Heart Rate Post-Dialysis 78 BPM Standing Heart Rate Pre-Dialysis 102 BPM Standing Heart Rate Post-Dialysis 75 BPM Temperature Pre-Dialysis 98.1 degF Temperature Post -Dialysis 97.2 degF June 10, 2024 In-Center Hemodialysis Treatment [id number]:30:31.000Z 7284-78-02S41:58:51.000Z BP Sitting (Pre-Dialysis) 121/66 mmHg BP Sitting (Post-Dialysis) 121/87 mmHg Concurrent Access: falseAV Fistula Forearm (Left) Arterial BP Standing (Pre-Dialysis) 118/69 mmHg BP Standing (P ost-Dialysis) 137/97 mmHg Sitting Heart Rate Pre-Dialysis 75 BPM Sitting Heart Rate Post-Dialysis 72 BPM Standing Heart Rate Pre-Dialysis 77 BPM Standing Heart Rate Post-Dialysis 89 BPM Temperature Pre-Dialysis 97.2 degF Temperature Post -Dialysis 98 degF June 08, 2024 In-Center Hemodialysis Treatment [id number]:34:26.000Z 2361-16-22M37:04:26.000Z BP Sitting (Pre-Dialysis) 117/65 mmHg BP Sitting (Post-Dialysis) 150/80 mmHg Concurrent Access: falseAV Fistula Forearm (Left) Arterial BP Standing (Pre-Dialysis) 123/62 mmHg BP Standing (P ost-Dialysis) 145/75 mmHg Sitting Heart Rate Pre-Dialysis 66 BPM Sitting Heart Rate Post-Dialysis 80 BPM Standing Heart Rate Pre-Dialysis 65 BPM Standing Heart Rate Post-Dialysis 84 BPM Temperature Pre-Dialysis 97.2 degF Temperature Post -Dialysis 97.2 degF June 05, 2024 In-Center Hemodialysis Treatment [id number]:25:14.000Z 6398-29-76S72:56:04.000Z BP Sitting (Pre-Dialysis) 103/79 mmHg BP Sitting (Post-Dialysis) 118/71 mmHg Concurrent Access: falseAV Fistula Forearm (Left) Arterial BP Standing (Pre-Dialysis) 105/80 mmHg BP Standing (P ost-Dialysis) 123/80 mmHg Sitting Heart Rate Pre-Dialysis 72 BPM Sitting Heart Rate Post-Dialysis 70 BPM Standing Heart Rate Pre-Dialysis 73 BPM Standing Heart Rate Post-Dialysis 87 BPM Temperature Pre-Dialysis 97.2 degF Temperature Post -Dialysis 97.2 degF June 03, 2024 In-Center Hemodialysis Treatment [id number]:23:00.000Z 3965-10-07Y99:53:45.000Z BP Sitting (Pre-Dialysis) 122/70 mmHg BP Sitting (Post-Dialysis) 128/81 mmHg Concurrent Access: falseAV Fistula Forearm (Left) Arterial BP Standing (Pre-Dialysis) 143/74 mmHg BP Standing (P ost-Dialysis) 142/74 mmHg Sitting Heart Rate Pre-Dialysis 79 BPM Sitting Heart Rate Post-Dialysis 77 BPM Standing Heart Rate Pre-Dialysis 87 BPM Standing Heart Rate Post-Dialysis 79 BPM Temperature Pre-Dialysis 97.9 degF Temperature Post -Dialysis 97.6 degF June 01, 2024 In-Center Hemodialysis Treatment [id number]:16:08.000Z 6767-58-23U41:16:08.000Z BP Sitting (Pre-Dialysis) 114/63 mmHg BP Sitting (Post-Dialysis) 138/74 mmHg Concurrent Access: falseAV Fistula Forearm (Left) Arterial BP Standing (Pre-Dialysis) 125/69 mmHg Sitti ng Heart Rate Post-Dialysis 60 BPM Sitting Heart Rate Pre-Dialysis 70 BPM Temperatu re Post-Dialysis 97.2 degF Standing Heart Rate Pre-Dialysis 74 BPM Temperature Pre-Dialysis 97.7 degF May 29, 2024 In-Center Hemodialysis Treatment 5515-14-79J16:13:00.000Z [id number]:50:28.000Z BP Sitting (Pre-Dialysis) 120/66 mmHg BP Sitting (Post-Dialysis) 115/68 mmHg Concurrent Access: falseAV Fistula Forearm (Left) Arterial BP Standing (Pre-Dialysis) 119/62 mmHg BP Standing (P ost-Dialysis) 117/71 mmHg Sitting Heart Rate Pre-Dialysis 74 BPM Sitting Heart Rate Post-Dialysis 68 BPM Standing Heart Rate Pre-Dialysis 75 BPM Standing Heart Rate Post-Dialysis 69 BPM Temperature Pre-Dialysis 97.6 degF Temperature Post -Dialysis 97.2 degF May 27, 2024 In-Center Hemodialysis Treatment 4925-47-21I31:18:00.000Z 8430-05-88X73:49:01.000Z BP Sitting (Pre-Dialysis) 123/75 mmHg BP Sitting (Post-Dialysis) 120/73 mmHg Concurrent Access: falseAV Fistula Forearm (Left) Arterial BP Standing (Pre-Dialysis) 110/75 mmHg BP Standing (P ost-Dialysis) 106/77 mmHg Sitting Heart Rate Pre-Dialysis 75 BPM Sitting Heart Rate Post-Dialysis 64 BPM Standing Heart Rate Pre-Dialysis 75 BPM Standing Heart Rate Post-Dialysis 78 BPM Temperature Pre-Dialysis 97.8 degF Temperature Post -Dialysis 97.6 degF May 25, 2024 In-Center Hemodialysis Treatment [id number]:15:00.000Z 3069-14-90T63:47:52.000Z BP Sitting (Pre-Dialysis) 128/60 mmHg BP Sitting (Post-Dialysis) 138/77 mmHg Concurrent Access: falseAV Fistula Forearm (Left) Arterial BP Standing (Pre-Dialysis) 111/71 mmHg BP Standing (P ost-Dialysis) 124/79 mmHg Sitting Heart Rate Pre-Dialysis 94 BPM Sitting Heart Rate Post-Dialysis 80 BPM Standing Heart Rate Pre-Dialysis 87 BPM Standing Heart Rate Post-Dialysis 79 BPM Temperature Pre-Dialysis 98.1 degF Temperature Post -Dialysis 97.2 degF May 22, 2024 In-Center Hemodialysis Treatment [id number]:22:09.000Z 7259-23-10L63:50:04.000Z BP Sitting (Pre-Dialysis) 120/63 mmHg BP Sitting (Post-Dialysis) 113/76 mmHg Concurrent Access: falseAV Fistula Forearm (Left) Arterial BP Standing (Pre-Dialysis) 109/68 mmHg BP Standing (P ost-Dialysis) 122/85 mmHg Sitting Heart Rate Pre-Dialysis 85 BPM Sitting Heart Rate Post-Dialysis 83 BPM Standing Heart Rate Pre-Dialysis 80 BPM Standing Heart Rate Post-Dialysis 95 BPM Temperature Pre-Dialysis 98 degF Temperature Post -Dialysis 97.8 degF May 20, 2024 In-Center Hemodialysis Treatment [id number]:25:20.000Z 7426-03-41G30:02:25.000Z BP Sitting (Pre-Dialysis) 109/50 mmHg BP Sitting (Post-Dialysis) 125/62 mmHg Concurrent Access: falseAV Fistula Forearm (Left) Arterial BP Standing (Pre-Dialysis) 118/71 mmHg BP Standing (P ost-Dialysis) 117/60 mmHg Sitting Heart Rate Pre-Dialysis 85 BPM Sitting Heart Rate Post-Dialysis 62 BPM Standing Heart Rate Pre-Dialysis 87 BPM Standing Heart Rate Post-Dialysis 60 BPM Temperature Pre-Dialysis 97.6 degF Temperature Post -Dialysis 97.2 degF May 18, 2024 In-Center Hemodialysis Treatment [id number]:18:00.000Z 5930-24-27Z45:47:35.000Z BP Sitting (Pre-Dialysis) 116/64 mmHg BP Sitting (Post-Dialysis) 132/71 mmHg Concurrent Access: falseAV Fistula Forearm (Left) Arterial BP Standing (Pre-Dialysis) 115/73 mmHg Sitti ng Heart Rate Post-Dialysis 73 BPM Sitting Heart Rate Pre-Dialysis 76 BPM Temperatu re Post-Dialysis 97.8 degF Standing Heart Rate Pre-Dialysis 85 BPM Temperature Pre-Dialysis 97.4 degF May 15, 2024 In-Center Hemodialysis Treatment [id number]:33:19.000Z 8685-41-97S32:02:54.000Z BP Sitting (Pre-Dialysis) 110/55 mmHg BP Sitting (Post-Dialysis) 125/70 mmHg Concurrent Access: falseAV Fistula Forearm (Left) Arterial BP Standing (Pre-Dialysis) 113/68 mmHg BP Standing (P ost-Dialysis) 125/95 mmHg Sitting Heart Rate Pre-Dialysis 78 BPM Sitting Heart Rate Post-Dialysis 90 BPM Standing Heart Rate Pre-Dialysis 75 BPM Standing Heart Rate Post-Dialysis 105 BPM Temperature Pre-Dialysis 97.2 degF Temperature Post -Dialysis 97.6 degF May 13, 2024 In-Center Hemodialysis Treatment [id number]:22:00.000Z [id number]:55:28.000Z BP Sitting (Pre-Dialysis) 121/66 mmHg BP Sitting (Post-Dialysis) 133/65 mmHg Concurrent Access: falseAV Fistula Forearm (Left) Arterial BP Standing (Pre-Dialysis) 121/61 mmHg BP Standing (P ost-Dialysis) 116/77 mmHg Sitting Heart Rate Pre-Dialysis 77 BPM Sitting Heart Rate Post-Dialysis 85 BPM Standing Heart Rate Pre-Dialysis 76 BPM Standing Heart Rate Post-Dialysis 66 BPM Temperature Pre-Dialysis 97.9 degF Temperature Post -Dialysis 97.2 degF May 11, 2024 In-Center Hemodialysis Treatment [id number]:25:57.000Z [id number]:58:52.000Z BP Sitting (Pre-Dialysis) 123/62 mmHg BP Sitting (Post-Dialysis) 115/95 mmHg Concurrent Access: falseAV Fistula Forearm (Left) Arterial BP Standing (Pre-Dialysis) 127/63 mmHg BP Standing (P ost-Dialysis) 141/96 mmHg Sitting Heart Rate Pre-Dialysis 70 BPM Sitting Heart Rate Post-Dialysis 90 BPM Standing Heart Rate Pre-Dialysis 74 BPM Standing Heart Rate Post-Dialysis 89 BPM Temperature Pre-Dialysis 97.2 degF Temperature Post -Dialysis 97.2 degF May 08, 2024 In-Center Hemodialysis Treatment [id number]:24:32.000Z 5550-57-79W37:03:42.000Z BP Sitting (Pre-Dialysis) 115/68 mmHg BP Sitting (Post-Dialysis) 113/70 mmHg Concurrent Access: falseAV Fistula Forearm (Left) Arterial BP Standing (Pre-Dialysis) 118/69 mmHg Sitti ng Heart Rate Post-Dialysis 74 BPM Sitting Heart Rate Pre-Dialysis 72 BPM Temperatu re Post-Dialysis 97.2 degF Standing Heart Rate Pre-Dialysis 70 BPM Temperature Pre-Dialysis 97.4 degF May 06, 2024 In-Center Hemodialysis Treatment 3053-87-15N03:26:00.000Z 9967-15-71J96:59:05.000Z BP Sitting (Pre-Dialysis) 127/64 mmHg BP Sitting (Post-Dialysis) 129/56 mmHg Concurrent Access: falseAV Fistula Forearm (Left) Arterial BP Standing (Pre-Dialysis) 114/65 mmHg BP Standing (P ost-Dialysis) 121/78 mmHg Sitting Heart Rate Pre-Dialysis 85 BPM Sitting Heart Rate Post-Dialysis 59 BPM Standing Heart Rate Pre-Dialysis 86 BPM Standing Heart Rate Post-Dialysis 58 BPM Temperature Pre-Dialysis 98.1 degF Temperature Post -Dialysis 97.2 degF May 04, 2024 In-Center Hemodialysis Treatment 0158-03-08N06:27:55.000Z 7971-55-47O80:00:47.000Z BP Sitting (Pre-Dialysis) 165/65 mmHg BP Sitting (Post-Dialysis) 125/76 mmHg Concurrent Access: falseAV Fistula Forearm (Left) Arterial BP Standing (Pre-Dialysis) 142/69 mmHg BP Standing (P ost-Dialysis) 123/75 mmHg Sitting Heart Rate Pre-Dialysis 74 BPM Sitting Heart Rate Post-Dialysis 68 BPM Standing Heart Rate Pre-Dialysis 79 BPM Standing Heart Rate Post-Dialysis 66 BPM Temperature Pre-Dialysis 98.2 degF Temperature Post -Dialysis 97.2 degF May 01, 2024 In-Center Hemodialysis Treatment [id number]:23:07.000Z [id number]:49:47.000Z BP Sitting (Pre-Dialysis) 135/69 mmHg BP Sitting (Post-Dialysis) 119/62 mmHg Concurrent Access: falseAV Fistula Forearm (Left) Arterial BP Standing (Pre-Dialysis) 129/68 mmHg Sitti ng Heart Rate Post-Dialysis 59 BPM Sitting Heart Rate Pre-Dialysis 75 BPM Temperatu re Post-Dialysis 97.2 degF Standing Heart Rate Pre-Dialysis 78 BPM Temperature Pre-Dialysis 97.2 degF April 29, 2024 In-Center Hemodialysis Treatment 0230-41-54K33:37:00.000Z 8818-99-97V15:05:59.000Z BP Sitting (Pre-Dialysis) 100/62 mmHg BP Sitting (Post-Dialysis) 123/73 mmHg Concurrent Access: falseAV Fistula Forearm (Left) Arterial BP Standing (Pre-Dialysis) 131/67 mmHg BP Standing (P ost-Dialysis) 120/64 mmHg Sitting Heart Rate Pre-Dialysis 73 BPM Sitting Heart Rate Post-Dialysis 90 BPM Standing Heart Rate Pre-Dialysis 76 BPM Standing Heart Rate Post-Dialysis 89 BPM Temperature Pre-Dialysis 97.5 degF Temperature Post -Dialysis 97.2 degF April 27, 2024 In-Center Hemodialysis Treatment [id number]:21:59.000Z 4723-84-04G00:46:34.000Z BP Sitting (Pre-Dialysis) 119/65 mmHg BP Sitting (Post-Dialysis) 111/70 mmHg Concurrent Access: falseAV Fistula Forearm (Left) Arterial BP Standing (Pre-Dialysis) 113/62 mmHg BP Standing (P ost-Dialysis) 126/68 mmHg Sitting Heart Rate Pre-Dialysis 70 BPM Sitting Heart Rate Post-Dialysis 86 BPM Standing Heart Rate Pre-Dialysis 71 BPM Standing Heart Rate Post-Dialysis 87 BPM Temperature Pre-Dialysis 97.2 degF Temperature Post -Dialysis 97.2 degF April 24, 2024 In-Center Hemodialysis Treatment 7082-06-11S18:27:09.000Z 2867-43-51S08:54:39.000Z BP Sitting (Pre-Dialysis) 101/62 mmHg BP Sitting (Post-Dialysis) 118/70 mmHg Concurrent Access: falseAV Fistula Forearm (Left) Arterial BP Standing (Pre-Dialysis) 123/62 mmHg Sitti ng Heart Rate Post-Dialysis 78 BPM Sitting Heart Rate Pre-Dialysis 73 BPM Temperatu re Post-Dialysis 97.4 degF Standing Heart Rate Pre-Dialysis 72 BPM Temperature Pre-Dialysis 97.2 degF April 22, 2024 In-Center Hemodialysis Treatment [id number]:24:00.000Z 0572-56-16O28:51:33.000Z BP Sitting (Pre-Dialysis) 113/59 mmHg BP Sitting (Post-Dialysis) 125/62 mmHg Concurrent Access: falseAV Fistula Forearm (Left) Arterial BP Standing (Pre-Dialysis) 111/64 mmHg BP Standing (P ost-Dialysis) 132/65 mmHg Sitting Heart Rate Pre-Dialysis 85 BPM Sitting Heart Rate Post-Dialysis 100 BPM Standing Heart Rate Pre-Dialysis 93 BPM Standing Heart Rate Post-Dialysis 99 BPM Temperature Pre-Dialysis 97.5 degF Temperature Post -Dialysis 97.2 degF April 20, 2024 In-Center Hemodialysis Treatment [id number]:26:03.000Z 4295-08-32U78:55:13.000Z BP Sitting (Pre-Dialysis) 115/55 mmHg BP Sitting (Post-Dialysis) 127/70 mmHg Concurrent Access: falseAV Fistula Forearm (Left) Arterial BP Standing (Pre-Dialysis) 118/59 mmHg BP Standing (P ost-Dialysis) 107/76 mmHg Sitting Heart Rate Pre-Dialysis 70 BPM Sitting Heart Rate Post-Dialysis 72 BPM Standing Heart Rate Pre-Dialysis 69 BPM Standing Heart Rate Post-Dialysis 70 BPM Temperature Pre-Dialysis 97.2 degF Temperature Post -Dialysis 97.2 degF April 17, 2024 In-Center Hemodialysis Treatment 0978-06-65T83:22:00.000Z [id number]:55:33.000Z BP Sitting (Pre-Dialysis) 117/64 mmHg BP Sitting (Post-Dialysis) 128/74 mmHg Concurrent Access: falseAV Fistula Forearm (Left) Arterial BP Standing (Pre-Dialysis) 120/70 mmHg BP Standing (P ost-Dialysis) 121/71 mmHg Sitting Heart Rate Pre-Dialysis 84 BPM Sitting Heart Rate Post-Dialysis 69 BPM Standing Heart Rate Pre-Dialysis 92 BPM Standing Heart Rate Post-Dialysis 86 BPM Temperature Pre-Dialysis 98.6 degF Temperature Post -Dialysis 97.6 degF April 15, 2024 In-Center Hemodialysis Treatment [id number]:22:33.000Z 0929-31-69E03:49:38.000Z BP Sitting (Pre-Dialysis) 115/72 mmHg BP Sitting (Post-Dialysis) 122/70 mmHg Concurrent Access: falseAV Fistula Forearm (Left) Arterial BP Standing (Pre-Dialysis) 112/70 mmHg BP Standing (P ost-Dialysis) 105/80 mmHg Sitting Heart Rate Pre-Dialysis 75 BPM Sitting Heart Rate Post-Dialysis 68 BPM Standing Heart Rate Pre-Dialysis 78 BPM Standing Heart Rate Post-Dialysis 89 BPM Temperature Pre-Dialysis 97.2 degF Temperature Post -Dialysis 97.2 degF April 13, 2024 In-Center Hemodialysis Treatment [id number]:26:34.000Z [id number]:54:54.000Z BP Sitting (Pre-Dialysis) 124/66 mmHg BP Sitting (Post-Dialysis) 126/77 mmHg Concurrent Access: falseAV Fistula Forearm (Left) Arterial BP Standing (Pre-Dialysis) 121/67 mmHg BP Standing (P ost-Dialysis) 126/53 mmHg Sitting Heart Rate Pre-Dialysis 85 BPM Sitting Heart Rate Post-Dialysis 100 BPM Standing Heart Rate Pre-Dialysis 84 BPM Standing Heart Rate Post-Dialysis 101 BPM Temperature Pre-Dialysis 98.2 degF Temperature Post -Dialysis 97.2 degF April 10, 2024 In-Center Hemodialysis Treatment [id number]:22:52.000Z 7860-45-67W61:54:07.000Z BP Sitting (Pre-Dialysis) 118/56 mmHg BP Sitting (Post-Dialysis) 116/72 mmHg Concurrent Access: falseAV Fistula Forearm (Left) Arterial BP Standing (Pre-Dialysis) 117/55 mmHg BP Standing (P ost-Dialysis) 114/70 mmHg Sitting Heart Rate Pre-Dialysis 70 BPM Sitting Heart Rate Post-Dialysis 90 BPM Standing Heart Rate Pre-Dialysis 72 BPM Standing Heart Rate Post-Dialysis 89 BPM Temperature Pre-Dialysis 97.2 degF Temperature Post -Dialysis 97.2 degF April 08, 2024 In-Center Hemodialysis Treatment [id number]:22:00.000Z 7128-65-89V59:42:19.000Z BP Sitting (Pre-Dialysis) 126/68 mmHg BP Sitting (Post-Dialysis) 111/69 mmHg Concurrent Access: falseAV Fistula Forearm (Left) Arterial Sitting Heart Rate Pre-Dialysis 79 BPM BP Standing (Post-Dialysis) 101/65 mmHg Temperature Pre-Dialysis 98.2 degF Sitting Heart Ra te Post-Dialysis 67 BPM Standing Heart Rate Post-Cheri lysis 65 BPM Temperature Post-Dialysis 97 .2 degF April 06, 2024 In-Center Hemodialysis Treatment 2095-10-05Q69:36:05.000Z [id number]:11:30.000Z BP Sitting (Pre-Dialysis) 122/67 mmHg BP Sitting (Post-Dialysis) 122/76 mmHg Concurrent Access: falseAV Fistula Forearm (Left) Arterial BP Standing (Pre-Dialysis) 123/70 mmHg Sitti ng Heart Rate Post-Dialysis 72 BPM Sitting Heart Rate Pre-Dialysis 63 BPM Temperatu re Post-Dialysis 97.5 degF Standing Heart Rate Pre-Dialysis 75 BPM Temperature Pre-Dialysis 97.7 degF April 03, 2024 In-Center Hemodialysis Treatment [id number]:24:00.000Z [id number]:57:32.000Z BP Sitting (Pre-Dialysis) 123/68 mmHg BP Sitting (Post-Dialysis) 125/66 mmHg Concurrent Access: falseAV Fistula Forearm (Left) Arterial BP Standing (Pre-Dialysis) 115/72 mmHg BP Standing (P ost-Dialysis) 102/52 mmHg Sitting Heart Rate Pre-Dialysis 82 BPM Sitting Heart Rate Post-Dialysis 64 BPM Standing Heart Rate Pre-Dialysis 80 BPM Standing Heart Rate Post-Dialysis 85 BPM Temperature Pre-Dialysis 98.1 degF Temperature Post -Dialysis 97 degF April 01, 2024 In-Center Hemodialysis Treatment [id number]:28:52.000Z [id number]:59:17.000Z BP Sitting (Pre-Dialysis) 115/62 mmHg BP Sitting (Post-Dialysis) 123/71 mmHg Concurrent Access: falseAV Fistula Forearm (Left) Arterial BP Standing (Pre-Dialysis) 117/63 mmHg BP Standing (P ost-Dialysis) 101/70 mmHg Sitting Heart Rate Pre-Dialysis 75 BPM Sitting Heart Rate Post-Dialysis 82 BPM Standing Heart Rate Pre-Dialysis 78 BPM Standing Heart Rate Post-Dialysis 80 BPM Temperature Pre-Dialysis 97.2 degF Temperature Post -Dialysis 97.2 degF March 30, 2024 In-Center Hemodialysis Treatment 5830-47-53G93:40:00.000Z 9758-01-67G18:15:08.000Z BP Sitting (Pre-Dialysis) 119/54 mmHg BP Sitting (Post-Dialysis) 124/73 mmHg Concurrent Access: falseAV Fistula Forearm (Left) Arterial BP Standing (Pre-Dialysis) 114/71 mmHg BP Standing (P ost-Dialysis) 117/85 mmHg Sitting Heart Rate Pre-Dialysis 68 BPM Sitting Heart Rate Post-Dialysis 86 BPM Standing Heart Rate Pre-Dialysis 71 BPM Standing Heart Rate Post-Dialysis 93 BPM Temperature Pre-Dialysis 97.7 degF Temperature Post -Dialysis 97.8 degF March 27, 2024 In-Center Hemodialysis Treatment [id number]:29:00.000Z [id number]:02:11.000Z BP Sitting (Pre-Dialysis) 133/65 mmHg BP Sitting (Post-Dialysis) 119/78 mmHg Concurrent Access: falseAV Fistula Forearm (Left) Arterial BP Standing (Pre-Dialysis) 103/63 mmHg Sitti ng Heart Rate Post-Dialysis 64 BPM Sitting Heart Rate Pre-Dialysis 67 BPM Temperatu re Post-Dialysis 98.2 degF Standing Heart Rate Pre-Dialysis 73 BPM Temperature Pre-Dialysis 97.7 degF March 25, 2024 In-Center Hemodialysis Treatment [id number]:27:00.000Z 1024-27-36N11:58:09.000Z BP Sitting (Pre-Dialysis) 120/61 mmHg BP Sitting (Post-Dialysis) 119/52 mmHg Concurrent Access: falseAV Fistula Forearm (Left) Arterial BP Standing (Pre-Dialysis) 108/66 mmHg BP Standing (P ost-Dialysis) 116/72 mmHg Sitting Heart Rate Pre-Dialysis 64 BPM Sitting Heart Rate Post-Dialysis 70 BPM Standing Heart Rate Pre-Dialysis 72 BPM Standing Heart Rate Post-Dialysis 63 BPM Temperature Pre-Dialysis 97.5 degF Temperature Post -Dialysis 97.2 degF March 23, 2024 In-Center Hemodialysis Treatment [id number]:24:00.000Z [id number]:52:25.000Z BP Sitting (Pre-Dialysis) 112/74 mmHg BP Sitting (Post-Dialysis) 123/78 mmHg Concurrent Access: falseAV Fistula Forearm (Left) Arterial BP Standing (Pre-Dialysis) 108/56 mmHg BP Standing (P ost-Dialysis) 115/75 mmHg Sitting Heart Rate Pre-Dialysis 68 BPM Sitting Heart Rate Post-Dialysis 78 BPM Standing Heart Rate Pre-Dialysis 73 BPM Standing Heart Rate Post-Dialysis 75 BPM Temperature Pre-Dialysis 97.9 degF Temperature Post -Dialysis 97.2 degF March 20, 2024 In-Center Hemodialysis Treatment 0502-70-11N29:30:24.000Z 3599-05-88O53:00:49.000Z BP Sitting (Pre-Dialysis) 109/85 mmHg BP Sitting (Post-Dialysis) 113/76 mmHg Concurrent Access: falseAV Fistula Forearm (Left) Arterial BP Standing (Pre-Dialysis) 120/88 mmHg Sitti ng Heart Rate Post-Dialysis 82 BPM Sitting Heart Rate Pre-Dialysis 75 BPM Temperatu re Post-Dialysis 97.6 degF Standing Heart Rate Pre-Dialysis 78 BPM Temperature Pre-Dialysis 97 degF March 18, 2024 In-Center Hemodialysis Treatment 2563-05-67J82:19:00.000Z 6410-17-12E26:47:35.000Z BP Sitting (Pre-Dialysis) 106/63 mmHg BP Sitting (Post-Dialysis) 125/70 mmHg Concurrent Access: falseAV Fistula Forearm (Left) Arterial BP Standing (Pre-Dialysis) 121/66 mmHg BP Standing (P ost-Dialysis) 126/80 mmHg Sitting Heart Rate Pre-Dialysis 78 BPM Sitting Heart Rate Post-Dialysis 74 BPM Standing Heart Rate Pre-Dialysis 82 BPM Standing Heart Rate Post-Dialysis 87 BPM Temperature Pre-Dialysis 98.1 degF Temperature Post -Dialysis 97.7 degF March 16, 2024 In-Center Hemodialysis Treatment 0199-61-04G40:34:00.000Z 1820-44-27X49:06:06.000Z BP Sitting (Pre-Dialysis) 110/66 mmHg BP Sitting (Post-Dialysis) 122/74 mmHg Concurrent Access: falseAV Fistula Forearm (Left) Arterial BP Standing (Pre-Dialysis) 168/110 mmHg BP Standing (P ost-Dialysis) 117/79 mmHg Sitting Heart Rate Pre-Dialysis 73 BPM Sitting Heart Rate Post-Dialysis 91 BPM Standing Heart Rate Pre-Dialysis 91 BPM Standing Heart Rate Post-Dialysis 95 BPM Temperature Pre-Dialysis 97.9 degF Temperature Post -Dialysis 97.8 degF March 13, 2024 In-Center Hemodialysis Treatment 5835-15-74K51:24:11.000Z 7367-20-87S77:54:36.000Z BP Sitting (Pre-Dialysis) 115/66 mmHg BP Sitting (Post-Dialysis) 133/77 mmHg Concurrent Access: falseAV Fistula Forearm (Left) Arterial BP Standing (Pre-Dialysis) 113/68 mmHg BP Standing (P ost-Dialysis) 123/68 mmHg Sitting Heart Rate Pre-Dialysis 78 BPM Sitting Heart Rate Post-Dialysis 77 BPM Standing Heart Rate Pre-Dialysis 68 BPM Standing Heart Rate Post-Dialysis 90 BPM Temperature Pre-Dialysis 97.6 degF Temperature Post -Dialysis 97.8 degF March 11, 2024 In-Center Hemodialysis Treatment 2340-57-37O37:29:00.000Z 4191-11-76A87:55:19.000Z BP Sitting (Pre-Dialysis) 123/66 mmHg BP Sitting (Post-Dialysis) 132/72 mmHg Concurrent Access: falseAV Fistula Forearm (Left) Arterial BP Standing (Pre-Dialysis) 134/70 mmHg Sitti ng Heart Rate Post-Dialysis 55 BPM Sitting Heart Rate Pre-Dialysis 64 BPM Temperatu re Post-Dialysis 98.3 degF Standing Heart Rate Pre-Dialysis 77 BPM Temperature Pre-Dialysis 98.1 degF March 09, 2024 In-Center Hemodialysis Treatment 5329-69-05Z39:34:00.000Z 2079-48-84M82:05:27.000Z BP Sitting (Pre-Dialysis) 103/66 mmHg BP Sitting (Post-Dialysis) 123/69 mmHg Concurrent Access: falseAV Fistula Forearm (Left) Arterial BP Standing (Pre-Dialysis) 109/68 mmHg BP Standing (P ost-Dialysis) 120/69 mmHg Sitting Heart Rate Pre-Dialysis 73 BPM Sitting Heart Rate Post-Dialysis 67 BPM Standing Heart Rate Pre-Dialysis 79 BPM Standing Heart Rate Post-Dialysis 87 BPM Temperature Pre-Dialysis 97.8 degF Temperature Post -Dialysis 98.2 degF March 06, 2024 In-Center Hemodialysis Treatment 8243-63-43W54:21:42.000Z 0215-89-91E74:52:32.000Z BP Sitting (Pre-Dialysis) 135/73 mmHg BP Sitting (Post-Dialysis) 114/51 mmHg Concurrent Access: falseAV Fistula Forearm (Left) Arterial BP Standing (Pre-Dialysis) 128/63 mmHg BP Standing (P ost-Dialysis) 119/67 mmHg Sitting Heart Rate Pre-Dialysis 74 BPM Sitting Heart Rate Post-Dialysis 72 BPM Standing Heart Rate Pre-Dialysis 86 BPM Standing Heart Rate Post-Dialysis 99 BPM Temperature Pre-Dialysis 97.2 degF Temperature Post -Dialysis 98.2 degF March 04, 2024 In-Center Hemodialysis Treatment 5197-05-10J90:32:00.000Z 1771-47-69Q23:47:12.000Z BP Sitting (Pre-Dialysis) 129/72 mmHg BP Sitting (Post-Dialysis) 130/78 mmHg Concurrent Access: falseAV Fistula Forearm (Left) Arterial BP Standing (Pre-Dialysis) 144/66 mmHg BP Standing (P ost-Dialysis) 113/77 mmHg Sitting Heart Rate Pre-Dialysis 71 BPM Sitting Heart Rate Post-Dialysis 69 BPM Standing Heart Rate Pre-Dialysis 69 BPM Standing Heart Rate Post-Dialysis 79 BPM Temperature Pre-Dialysis 97.4 degF Temperature Post -Dialysis 97.6 degF March 02, 2024 In-Center Hemodialysis Treatment [id number]:23:37.000Z 0418-35-72Y34:54:02.000Z BP Sitting (Pre-Dialysis) 112/63 mmHg BP Sitting (Post-Dialysis) 115/63 mmHg Concurrent Access: falseAV Fistula Forearm (Left) Arterial BP Standing (Pre-Dialysis) 137/63 mmHg BP Standing (P ost-Dialysis) 119/73 mmHg Sitting Heart Rate Pre-Dialysis 72 BPM Sitting Heart Rate Post-Dialysis 65 BPM Standing Heart Rate Pre-Dialysis 74 BPM Standing Heart Rate Post-Dialysis 81 BPM Temperature Pre-Dialysis 97.7 degF Temperature Post -Dialysis 97.7 degF February 28, 2024 In-Center Hemodialysis Treatment 6355-45-26L47:14:44.000Z 0760-29-96M75:45:09.000Z BP Sitting (Pre-Dialysis) 135/72 mmHg BP Sitting (Post-Dialysis) 123/73 mmHg Concurrent Access: falseAV Fistula Forearm (Left) Arterial BP Standing (Pre-Dialysis) 124/70 mmHg Sitti ng Heart Rate Post-Dialysis 65 BPM Sitting Heart Rate Pre-Dialysis 82 BPM Temperatu re Post-Dialysis 97.8 degF Standing Heart Rate Pre-Dialysis 83 BPM Temperature Pre-Dialysis 97.7 degF February 26, 2024 In-Center Hemodialysis Treatment 2047-03-53A44:22:00.000Z 1306-18-57W10:55:26.000Z BP Sitting (Pre-Dialysis) 132/66 mmHg BP Sitting (Post-Dialysis) 135/78 mmHg Concurrent Access: falseAV Fistula Forearm (Left) Arterial BP Standing (Pre-Dialysis) 126/74 mmHg BP Standing (P ost-Dialysis) 127/75 mmHg Sitting Heart Rate Pre-Dialysis 80 BPM Sitting Heart Rate Post-Dialysis 74 BPM Standing Heart Rate Pre-Dialysis 82 BPM Standing Heart Rate Post-Dialysis 70 BPM Temperature Pre-Dialysis 98.1 degF Temperature Post -Dialysis 97.2 degF February 24, 2024 In-Center Hemodialysis Treatment 8560-30-97U37:30:17.000Z 9809-48-31X42:55:42.000Z BP Sitting (Pre-Dialysis) 131/58 mmHg BP Sitting (Post-Dialysis) 148/59 mmHg Concurrent Access: falseAV Fistula Forearm (Left) Arterial BP Standing (Pre-Dialysis) 127/63 mmHg BP Standing (P ost-Dialysis) 136/69 mmHg Sitting Heart Rate Pre-Dialysis 63 BPM Sitting Heart Rate Post-Dialysis 72 BPM Standing Heart Rate Pre-Dialysis 70 BPM Standing Heart Rate Post-Dialysis 67 BPM Temperature Pre-Dialysis 97.9 degF Temperature Post -Dialysis 97.2 degF 2024 In-Center Hemodialysis Treatment 0822-16-81S35:33:00.000Z 2985-55-80H31:03:57.000Z BP Sitting (Pre-Dialysis) 105/55 mmHg BP Sitting (Post-Dialysis) 119/74 mmHg Concurrent Access: falseAV Fistula Forearm (Left) Arterial BP Standing (Pre-Dialysis) 123/61 mmHg BP Standing (P ost-Dialysis) 126/81 mmHg Sitting Heart Rate Pre-Dialysis 75 BPM Sitting Heart Rate Post-Dialysis 87 BPM Standing Heart Rate Pre-Dialysis 81 BPM Standing Heart Rate Post-Dialysis 89 BPM Temperature Pre-Dialysis 97.9 degF Temperature Post -Dialysis 97.2 degF February 19, 2024 In-Center Hemodialysis Treatment [id number]:30:09.000Z 0920-92-00V53:00:09.000Z BP Sitting (Pre-Dialysis) 126/75 mmHg BP Sitting (Post-Dialysis) 118/78 mmHg Concurrent Access: falseAV Fistula Forearm (Left) Arterial BP Standing (Pre-Dialysis) 131/76 mmHg BP Standing (P ost-Dialysis) 105/74 mmHg Sitting Heart Rate Pre-Dialysis 72 BPM Sitting Heart Rate Post-Dialysis 74 BPM Standing Heart Rate Pre-Dialysis 77 BPM Standing Heart Rate Post-Dialysis 79 BPM Temperature Pre-Dialysis 97.7 degF February 17, 2024 In-Center Hemodialysis Treatment 6647-04-44C75:35:00.000Z 6897-57-97K14:59:57.000Z BP Sitting (Pre-Dialysis) 134/55 mmHg BP Sitting (Post-Dialysis) 127/69 mmHg Concurrent Access: falseAV Fistula Forearm (Left) Arterial BP Standing (Pre-Dialysis) 119/68 mmHg BP Standing (P ost-Dialysis) 138/66 mmHg Sitting Heart Rate Pre-Dialysis 61 BPM Sitting Heart Rate Post-Dialysis 68 BPM Standing Heart Rate Pre-Dialysis 64 BPM Standing Heart Rate Post-Dialysis 63 BPM Temperature Pre-Dialysis 97.4 degF Temperature Post -Dialysis 97.6 degF February 14, 2024 In-Center Hemodialysis Treatment 3301-84-19U03:26:00.000Z 8176-32-41H24:54:19.000Z BP Sitting (Pre-Dialysis) 134/68 mmHg BP Sitting (Post-Dialysis) 139/73 mmHg Concurrent Access: falseAV Fistula Forearm (Left) Arterial BP Standing (Pre-Dialysis) 134/70 mmHg Sitti ng Heart Rate Post-Dialysis 62 BPM Sitting Heart Rate Pre-Dialysis 67 BPM Temperatu re Post-Dialysis 97.6 degF Standing Heart Rate Pre-Dialysis 68 BPM Temperature Pre-Dialysis 97.7 degF February 12, 2024 In-Center Hemodialysis Treatment 2545-85-19T83:34:00.000Z 5586-11-01E10:04:32.000Z BP Sitting (Pre-Dialysis) 104/61 mmHg BP Sitting (Post-Dialysis) 118/65 mmHg Concurrent Access: falseAV Fistula Forearm (Left) Arterial BP Standing (Pre-Dialysis) 100/58 mmHg BP Standing (P ost-Dialysis) 122/66 mmHg Sitting Heart Rate Pre-Dialysis 72 BPM Sitting Heart Rate Post-Dialysis 68 BPM Standing Heart Rate Pre-Dialysis 71 BPM Standing Heart Rate Post-Dialysis 68 BPM Temperature Pre-Dialysis 97.8 degF Temperature Post -Dialysis 97.2 degF February 10, 2024 In-Center Hemodialysis Treatment 5727-23-08I65:25:31.000Z 6880-42-07Y25:55:56.000Z BP Sitting (Pre-Dialysis) 99/56 mmHg BP Sitting (Post-Dialysis) 129/64 mmHg Concurrent Access: falseAV Fistula Forearm (Left) Arterial BP Standing (Pre-Dialysis) 109/59 mmHg BP Standing (P ost-Dialysis) 112/72 mmHg Sitting Heart Rate Pre-Dialysis 59 BPM Sitting Heart Rate Post-Dialysis 66 BPM Standing Heart Rate Pre-Dialysis 62 BPM Standing Heart Rate Post-Dialysis 57 BPM Temperature Pre-Dialysis 97.2 degF Temperature Post -Dialysis 97.2 degF February 07, 2024 In-Center Hemodialysis Treatment 4973-05-93G01:20:58.000Z 8141-76-12H29:54:43.000Z BP Sitting (Pre-Dialysis) 101/62 mmHg BP Sitting (Post-Dialysis) 105/68 mmHg Concurrent Access: falseAV Fistula Forearm (Left) Arterial BP Standing (Pre-Dialysis) 111/78 mmHg BP Standing (P ost-Dialysis) 108/60 mmHg Sitting Heart Rate Pre-Dialysis 68 BPM Sitting Heart Rate Post-Dialysis 64 BPM Standing Heart Rate Pre-Dialysis 68 BPM Standing Heart Rate Post-Dialysis 70 BPM Temperature Pre-Dialysis 98.1 degF Temperature Post -Dialysis 97.2 degF February 05, 2024 In-Center Hemodialysis Treatment 8741-00-16Z88:31:00.000Z 8658-35-89O26:03:24.000Z BP Sitting (Pre-Dialysis) 104/54 mmHg BP Sitting (Post-Dialysis) 113/66 mmHg Concurrent Access: falseAV Fistula Forearm (Left) Arterial BP Standing (Pre-Dialysis) 112/58 mmHg BP Standing (P ost-Dialysis) 109/74 mmHg Sitting Heart Rate Pre-Dialysis 69 BPM Sitting Heart Rate Post-Dialysis 67 BPM Standing Heart Rate Pre-Dialysis 76 BPM Standing Heart Rate Post-Dialysis 82 BPM Temperature Pre-Dialysis 98.1 degF Temperature Post -Dialysis 97.2 degF February 03, 2024 In-Center Hemodialysis Treatment [id number]:31:20.000Z 2796-28-57S79:02:35.000Z BP Sitting (Pre-Dialysis) 116/70 mmHg BP Sitting (Post-Dialysis) 140/71 mmHg Concurrent Access: falseAV Fistula Forearm (Left) Arterial BP Standing (Pre-Dialysis) 129/68 mmHg BP Standing (P ost-Dialysis) 124/76 mmHg Sitting Heart Rate Pre-Dialysis 69 BPM Sitting Heart Rate Post-Dialysis 66 BPM Standing Heart Rate Pre-Dialysis 75 BPM Standing Heart Rate Post-Dialysis 75 BPM Temperature Pre-Dialysis 97.2 degF January 31, 2024 In-Center Hemodialysis Treatment [id number]:35:30.000Z 9416-13-68V90:04:40.000Z BP Sitting (Pre-Dialysis) 101/65 mmHg BP Sitting (Post-Dialysis) 110/62 mmHg Concurrent Access: falseAV Fistula Forearm (Left) Arterial BP Standing (Pre-Dialysis) 97/59 mmHg Sitti ng Heart Rate Post-Dialysis 80 BPM Sitting Heart Rate Pre-Dialysis 67 BPM Temperatu re Post-Dialysis 98.2 degF Standing Heart Rate Pre-Dialysis 67 BPM Temperature Pre-Dialysis 97.2 degF January 29, 2024 In-Center Hemodialysis Treatment 0521-49-86R69:27:03.000Z 4104-41-12D24:55:48.000Z BP Sitting (Pre-Dialysis) 111/58 mmHg BP Sitting (Post-Dialysis) 118/77 mmHg Concurrent Access: falseAV Fistula Forearm (Left) Arterial BP Standing (Pre-Dialysis) 103/54 mmHg Sitti ng Heart Rate Post-Dialysis 80 BPM Sitting Heart Rate Pre-Dialysis 68 BPM Temperatu re Post-Dialysis 97.5 degF Standing Heart Rate Pre-Dialysis 74 BPM Temperature Pre-Dialysis 97.9 degF January 27, 2024 In-Center Hemodialysis Treatment [id number]:20:42.000Z [id number]:48:12.000Z BP Sitting (Pre-Dialysis) 110/57 mmHg BP Sitting (Post-Dialysis) 114/74 mmHg Concurrent Access: falseAV Fistula Forearm (Left) Arterial BP Standing (Pre-Dialysis) 117/57 mmHg Sitti ng Heart Rate Post-Dialysis 66 BPM Sitting Heart Rate Pre-Dialysis 70 BPM Temperatu re Post-Dialysis 97.6 degF Standing Heart Rate Pre-Dialysis 71 BPM Temperature Pre-Dialysis 97.2 degF January 24, 2024 In-Center Hemodialysis Treatment [id number]:33:00.000Z [id number]:07:31.000Z BP Sitting (Pre-Dialysis) 104/55 mmHg BP Sitting (Post-Dialysis) 147/74 mmHg Concurrent Access: falseAV Fistula Forearm (Left) Arterial BP Standing (Pre-Dialysis) 110/62 mmHg BP Standing (P ost-Dialysis) 120/68 mmHg Sitting Heart Rate Pre-Dialysis 63 BPM Sitting Heart Rate Post-Dialysis 59 BPM Standing Heart Rate Pre-Dialysis 69 BPM Standing Heart Rate Post-Dialysis 72 BPM Temperature Pre-Dialysis 97.8 degF Temperature Post -Dialysis 97.8 degF January 22, 2024 In-Center Hemodialysis Treatment [id number]:27:00.000Z [id number]:58:16.000Z BP Sitting (Pre-Dialysis) 115/59 mmHg BP Sitting (Post-Dialysis) 126/83 mmHg Concurrent Access: falseAV Fistula Forearm (Left) Arterial BP Standing (Pre-Dialysis) 113/63 mmHg BP Standing (P ost-Dialysis) 113/70 mmHg Sitting Heart Rate Pre-Dialysis 69 BPM Sitting Heart Rate Post-Dialysis 88 BPM Standing Heart Rate Pre-Dialysis 72 BPM Standing Heart Rate Post-Dialysis 82 BPM Temperature Pre-Dialysis 97.9 degF Temperature Post -Dialysis 97 degF January 20, 2024 In-Center Hemodialysis Treatment [id number]:32:18.000Z [id number]:01:52.000Z BP Sitting (Pre-Dialysis) 116/57 mmHg BP Sitting (Post-Dialysis) 108/75 mmHg Concurrent Access: falseAV Fistula Forearm (Left) Arterial BP Standing (Pre-Dialysis) 101/68 mmHg Sitti ng Heart Rate Post-Dialysis 78 BPM Sitting Heart Rate Pre-Dialysis 67 BPM Temperatu re Post-Dialysis 97.2 degF Standing Heart Rate Pre-Dialysis 63 BPM Temperature Pre-Dialysis 97.2 degF January 17, 2024 In-Center Hemodialysis Treatment [id number]:20:00.000Z [id number]:51:41.000Z BP Sitting (Pre-Dialysis) 103/56 mmHg BP Sitting (Post-Dialysis) 112/63 mmHg Concurrent Access: falseAV Fistula Forearm (Left) Arterial BP Standing (Pre-Dialysis) 107/78 mmHg BP Standing (P ost-Dialysis) 101/64 mmHg Sitting Heart Rate Pre-Dialysis 65 BPM Sitting Heart Rate Post-Dialysis 62 BPM Standing Heart Rate Pre-Dialysis 63 BPM Standing Heart Rate Post-Dialysis 63 BPM Temperature Pre-Dialysis 97.9 degF Temperature Post -Dialysis 97.2 degF January 15, 2024 In-Center Hemodialysis Treatment [id number]:17:12.000Z 8415-74-77P28:01:47.000Z BP Sitting (Pre-Dialysis) 118/62 mmHg BP Sitting (Post-Dialysis) 114/65 mmHg Concurrent Access: falseAV Fistula Forearm (Left) Arterial BP Standing (Pre-Dialysis) 101/65 mmHg Sitti ng Heart Rate Post-Dialysis 97 BPM Sitting Heart Rate Pre-Dialysis 68 BPM Temperatu re Post-Dialysis 97.2 degF Standing Heart Rate Pre-Dialysis 69 BPM Temperature Pre-Dialysis 97.2 degF January 13, 2024 In-Center Hemodialysis Treatment [id number]:24:00.000Z [id number]:52:50.000Z BP Sitting (Pre-Dialysis) 111/62 mmHg BP Sitting (Post-Dialysis) 125/70 mmHg Concurrent Access: falseAV Fistula Forearm (Left) Arterial BP Standing (Pre-Dialysis) 109/53 mmHg BP Standing (P ost-Dialysis) 114/75 mmHg Sitting Heart Rate Pre-Dialysis 71 BPM Sitting Heart Rate Post-Dialysis 80 BPM Standing Heart Rate Pre-Dialysis 73 BPM Standing Heart Rate Post-Dialysis 94 BPM Temperature Pre-Dialysis 98.1 degF Temperature Post -Dialysis 97.9 degF January 10, 2024 In-Center Hemodialysis Treatment [id number]:19:45.000Z [id number]:47:40.000Z BP Sitting (Pre-Dialysis) 104/65 mmHg BP Sitting (Post-Dialysis) 132/69 mmHg Concurrent Access: falseAV Fistula Forearm (Left) Arterial BP Standing (Pre-Dialysis) 102/66 mmHg Sitting Heart Rate Post-Dialysis 63 BPM Sitting Heart Rate Pre-Dialysis 75 BPM Temperatu re Post-Dialysis 97 degF Standing Heart Rate Pre-Dialysis 76 BPM Temperature Pre-Dialysis 97.2 degF January 08, 2024 In-Center Hemodialysis Treatment [id number]:36:00.000Z 1879-05-85N77:00:00.000Z BP Sitting (Pre-Dialysis) 132/78 mmHg BP Sitting (Post-Dialysis) 115/75 mmHg Concurrent Access: falseAV Fistula Forearm (Left) Arterial BP Standing (Pre-Dialysis) 124/57 mmHg BP Standing (P ost-Dialysis) 104/66 mmHg Sitting Heart Rate Pre-Dialysis 68 BPM Sitting Heart Rate Post-Dialysis 88 BPM Standing Heart Rate Pre-Dialysis 78 BPM Standing Heart Rate Post-Dialysis 85 BPM Temperature Pre-Dialysis 97.9 degF Temperature Post -Dialysis 97.2 degF January 06, 2024 In-Center Hemodialysis Treatment [id number]:37:00.000Z [id number]:05:28.000Z BP Sitting (Pre-Dialysis) 122/61 mmHg BP Sitting (Post-Dialysis) 129/70 mmHg Concurrent Access: falseAV Fistula Forearm (Left) Arterial BP Standing (Pre-Dialysis) 106/60 mmHg Sitting Heart Rate Post-Dialysis 60 BPM Sitting Heart Rate Pre-Dialysis 61 BPM Temperatu re Post-Dialysis 97 degF Standing Heart Rate Pre-Dialysis 65 BPM Temperature Pre-Dialysis 96.8 degF January 03, 2024 In-Center Hemodialysis Treatment [id number]:31:32.000Z 0703-03-31U15:01:07.000Z BP Sitting (Pre-Dialysis) 103/59 mmHg BP Sitting (Post-Dialysis) 129/68 mmHg Concurrent Access: falseAV Fistula Forearm (Left) Arterial BP Standing (Pre-Dialysis) 110/65 mmHg BP Standing (P ost-Dialysis) 133/69 mmHg Sitting Heart Rate Pre-Dialysis 62 BPM Sitting Heart Rate Post-Dialysis 74 BPM Standing Heart Rate Pre-Dialysis 80 BPM Standing Heart Rate Post-Dialysis 72 BPM Temperature Pre-Dialysis 97 degF Temperature Post -Dialysis 97.2 degF January 01, 2024 In-Center Hemodialysis Treatment [id number]:32:00.000Z 9028-58-09Z93:02:09.000Z BP Sitting (Pre-Dialysis) 102/67 mmHg BP Sitting (Post-Dialysis) 122/78 mmHg Concurrent Access: falseAV Fistula Forearm (Left) Arterial BP Standing (Pre-Dialysis) 124/87 mmHg Sitti ng Heart Rate Post-Dialysis 84 BPM Sitting Heart Rate Pre-Dialysis 76 BPM Temperatu re Post-Dialysis 97.2 degF Standing Heart Rate Pre-Dialysis 86 BPM Temperature Pre-Dialysis 97.9 degF December 30, 2023 In-Center Hemodialysis Treatment [id number]:29:29.000Z [id number]:55:44.000Z BP Sitting (Pre-Dialysis) 116/65 mmHg BP Sitting (Post-Dialysis) 121/71 mmHg Concurrent Access: falseAV Fistula Forearm (Left) Arterial BP Standing (Pre-Dialysis) 108/62 mmHg BP Standing (P ost-Dialysis) 109/67 mmHg Sitting Heart Rate Pre-Dialysis 77 BPM Sitting Heart Rate Post-Dialysis 83 BPM Standing Heart Rate Pre-Dialysis 78 BPM Standing Heart Rate Post-Dialysis 103 BPM Temperature Pre-Dialysis 97.2 degF Temperature Post -Dialysis 97 degF December 27, 2023 In-Center Hemodialysis Treatment [id number]:40:52.000Z [id number]:08:22.000Z BP Sitting (Pre-Dialysis) 108/63 mmHg BP Sitting (Post-Dialysis) 108/60 mmHg Concurrent Access: falseAV Fistula Forearm (Left) Arterial BP Standing (Pre-Dialysis) 99/61 mmHg BP Standing (P ost-Dialysis) 105/52 mmHg Sitting Heart Rate Pre-Dialysis 71 BPM Sitting Heart Rate Post-Dialysis 59 BPM Standing Heart Rate Pre-Dialysis 73 BPM Standing Heart Rate Post-Dialysis 60 BPM Temperature Pre-Dialysis 97.2 degF Temperature Post -Dialysis 97.2 degF December 25, 2023 In-Center Hemodialysis Treatment [id number]:28:51.000Z [id number]:55:31.000Z BP Sitting (Pre-Dialysis) 117/61 mmHg BP Sitting (Post-Dialysis) 129/75 mmHg Concurrent Access: falseAV Fistula Forearm (Left) Arterial BP Standing (Pre-Dialysis) 128/63 mmHg BP Standing (P ost-Dialysis) 135/72 mmHg Sitting Heart Rate Pre-Dialysis 71 BPM Sitting Heart Rate Post-Dialysis 95 BPM Standing Heart Rate Pre-Dialysis 71 BPM Standing Heart Rate Post-Dialysis 90 BPM Temperature Pre-Dialysis 97.2 degF Temperature Post -Dialysis 97.2 degF December 23, 2023 In-Center Hemodialysis Treatment 3720-03-13H48:30:00.000Z [id number]:57:43.000Z BP Sitting (Pre-Dialysis) 116/68 mmHg BP Sitting (Post-Dialysis) 127/59 mmHg Concurrent Access: falseAV Fistula Forearm (Left) Arterial BP Standing (Pre-Dialysis) 115/65 mmHg BP Standing (P ost-Dialysis) 123/60 mmHg Sitting Heart Rate Pre-Dialysis 68 BPM Sitting Heart Rate Post-Dialysis 70 BPM Standing Heart Rate Pre-Dialysis 72 BPM Standing Heart Rate Post-Dialysis 65 BPM Temperature Pre-Dialysis 98.5 degF Temperature Post -Dialysis 97.2 degF December 20, 2023 In-Center Hemodialysis Treatment [id number]:15:48.000Z [id number]:42:53.000Z BP Sitting (Pre-Dialysis) 110/51 mmHg BP Sitting (Post-Dialysis) 112/68 mmHg Concurrent Access: falseAV Fistula Forearm (Left) Arterial BP Standing (Pre-Dialysis) 130/69 mmHg Sitti ng Heart Rate Post-Dialysis 78 BPM Sitting Heart Rate Pre-Dialysis 73 BPM Temperatu re Post-Dialysis 97.2 degF Standing Heart Rate Pre-Dialysis 88 BPM Temperature Pre-Dialysis 98.2 degF December 18, 2023 In-Center Hemodialysis Treatment [id number]:26:00.000Z [id number]:55:21.000Z BP Sitting (Pre-Dialysis) 108/62 mmHg BP Sitting (Post-Dialysis) 118/70 mmHg Concurrent Access: falseAV Fistula Forearm (Left) Arterial BP Standing (Pre-Dialysis) 110/65 mmHg BP Standing (P ost-Dialysis) 112/66 mmHg Sitting Heart Rate Pre-Dialysis 81 BPM Sitting Heart Rate Post-Dialysis 67 BPM Standing Heart Rate Pre-Dialysis 75 BPM Standing Heart Rate Post-Dialysis 86 BPM Temperature Pre-Dialysis 97.4 degF Temperature Post -Dialysis 97 degF December 16, 2023 In-Center Hemodialysis Treatment [id number]:29:16.000Z 1715-48-35T87:05:06.000Z BP Sitting (Pre-Dialysis) 121/64 mmHg BP Sitting (Post-Dialysis) 138/79 mmHg Concurrent Access: falseAV Fistula Forearm (Left) Arterial BP Standing (Pre-Dialysis) 124/70 mmHg BP Standing (P ost-Dialysis) 132/70 mmHg Sitting Heart Rate Pre-Dialysis 69 BPM Sitting Heart Rate Post-Dialysis 74 BPM Standing Heart Rate Pre-Dialysis 76 BPM Standing Heart Rate Post-Dialysis 91 BPM Temperature Pre-Dialysis 97.3 degF Temperature Post -Dialysis 97.2 degF December 13, 2023 In-Center Hemodialysis Treatment [id number]:17:00.000Z 5377-76-76E45:18:00.000Z BP Sitting (Pre-Dialysis) 131/68 mmHg BP Sitting (Post-Dialysis) 110/69 mmHg Concurrent Access: falseAV Fistula Forearm (Left) Arterial BP Standing (Pre-Dialysis) 133/74 mmHg BP Standing (P ost-Dialysis) 112/59 mmHg Sitting Heart Rate Pre-Dialysis 68 BPM Sitting Heart Rate Post-Dialysis 87 BPM Standing Heart Rate Pre-Dialysis 86 BPM Standing Heart Rate Post-Dialysis 80 BPM Temperature Pre-Dialysis 97.8 degF Temperature Post -Dialysis 97 degF December 11, 2023 In-Center Hemodialysis Treatment [id number]:26:09.000Z [id number]:46:09.000Z BP Sitting (Pre-Dialysis) 111/62 mmHg BP Sitting (Post-Dialysis) 99/57 mmHg Concurrent Access: falseAV Fistula Forearm (Left) Arterial BP Standing (Pre-Dialysis) 117/60 mmHg BP Standing (P ost-Dialysis) 112/49 mmHg Sitting Heart Rate Pre-Dialysis 67 BPM Sitting Heart Rate Post-Dialysis 79 BPM Standing Heart Rate Pre-Dialysis 80 BPM Standing Heart Rate Post-Dialysis 80 BPM Temperature Pre-Dialysis 97.9 degF Temperature Post -Dialysis 97.2 degF December 09, 2023 In-Center Hemodialysis Treatment 4217-55-97R64:34:00.000Z 1034-62-97X68:08:34.000Z BP Sitting (Pre-Dialysis) 98/56 mmHg BP Sitting (Post-Dialysis) 134/72 mmHg Concurrent Access: falseAV Fistula Forearm (Left) Arterial BP Standing (Pre-Dialysis) 128/61 mmHg BP Standing (P ost-Dialysis) 143/62 mmHg Sitting Heart Rate Pre-Dialysis 73 BPM Sitting Heart Rate Post-Dialysis 72 BPM Standing Heart Rate Pre-Dialysis 66 BPM Standing Heart Rate Post-Dialysis 86 BPM Temperature Pre-Dialysis 97.2 degF Temperature Post -Dialysis 97 degF December 06, 2023 In-Center Hemodialysis Treatment [id number]:24:09.000Z 2991-77-09W27:57:04.000Z BP Sitting (Pre-Dialysis) 114/70 mmHg BP Sitting (Post-Dialysis) 137/70 mmHg Concurrent Access: falseAV Fistula Forearm (Left) Arterial BP Standing (Pre-Dialysis) 111/60 mmHg BP Standing (P ost-Dialysis) 126/70 mmHg Sitting Heart Rate Pre-Dialysis 70 BPM Sitting Heart Rate Post-Dialysis 75 BPM Standing Heart Rate Pre-Dialysis 88 BPM Standing Heart Rate Post-Dialysis 82 BPM Temperature Pre-Dialysis 97.2 degF Temperature Post -Dialysis 97.2 degF December 04, 2023 In-Center Hemodialysis Treatment [id number]:37:00.000Z 8208-44-14K07:09:05.000Z BP Sitting (Pre-Dialysis) 107/79 mmHg BP Sitting (Post-Dialysis) 118/77 mmHg Concurrent Access: falseAV Fistula Forearm (Left) Arterial BP Standing (Pre-Dialysis) 106/65 mmHg BP Standing (P ost-Dialysis) 120/74 mmHg Sitting Heart Rate Pre-Dialysis 65 BPM Sitting Heart Rate Post-Dialysis 81 BPM Standing Heart Rate Pre-Dialysis 68 BPM Standing Heart Rate Post-Dialysis 80 BPM Temperature Pre-Dialysis 97.7 degF Temperature Post -Dialysis 97.2 degF December 02, 2023 In-Center Hemodialysis Treatment [id number]:35:30.000Z [id number]:05:55.000Z BP Sitting (Pre-Dialysis) 130/65 mmHg BP Sitting (Post-Dialysis) 135/62 mmHg Concurrent Access: falseAV Fistula Forearm (Left) Arterial BP Standing (Pre-Dialysis) 121/67 mmHg BP Standing (P ost-Dialysis) 134/74 mmHg Sitting Heart Rate Pre-Dialysis 68 BPM Sitting Heart Rate Post-Dialysis 64 BPM Standing Heart Rate Pre-Dialysis 67 BPM Standing Heart Rate Post-Dialysis 68 BPM Temperature Pre-Dialysis 97.2 degF Temperature Post -Dialysis 97.2 degF November 29, 2023 In-Center Hemodialysis Treatment [id number]:20:00.000Z [id number]:55:52.000Z BP Sitting (Pre-Dialysis) 115/62 mmHg BP Sitting (Post-Dialysis) 116/56 mmHg Concurrent Access: falseAV Fistula Forearm (Left) Arterial BP Standing (Pre-Dialysis) 113/59 mmHg BP Standing (P ost-Dialysis) 118/70 mmHg Sitting Heart Rate Pre-Dialysis 90 BPM Sitting Heart Rate Post-Dialysis 64 BPM Standing Heart Rate Pre-Dialysis 89 BPM Standing Heart Rate Post-Dialysis 84 BPM Temperature Pre-Dialysis 97.2 degF Temperature Post -Dialysis 98 degF November 27, 2023 In-Center Hemodialysis Treatment [id number]:25:00.000Z 4836-23-89U25:02:39.000Z BP Sitting (Pre-Dialysis) 147/53 mmHg BP Sitting (Post-Dialysis) 117/56 mmHg Concurrent Access: falseAV Fistula Forearm (Left) Arterial BP Standing (Pre-Dialysis) 123/73 mmHg Sitti ng Heart Rate Post-Dialysis 78 BPM Sitting Heart Rate Pre-Dialysis 74 BPM Temperatu re Post-Dialysis 98.2 degF Standing Heart Rate Pre-Dialysis 71 BPM Temperature Pre-Dialysis 97.2 degF November 25, 2023 In-Center Hemodialysis Treatment [id number]:30:00.000Z 4093-93-04F55:58:59.000Z BP Sitting (Pre-Dialysis) 119/63 mmHg BP Sitting (Post-Dialysis) 132/74 mmHg Concurrent Access: falseAV Fistula Forearm (Left) Arterial BP Standing (Pre-Dialysis) 114/72 mmHg BP Standing (P ost-Dialysis) 117/74 mmHg Sitting Heart Rate Pre-Dialysis 70 BPM Sitting Heart Rate Post-Dialysis 75 BPM Standing Heart Rate Pre-Dialysis 79 BPM Standing Heart Rate Post-Dialysis 87 BPM Temperature Pre-Dialysis 97.7 degF Temperature Post -Dialysis 97.3 degF November 22, 2023 In-Center Hemodialysis Treatment [id number]:26:00.000Z [id number]:57:18.000Z BP Sitting (Pre-Dialysis) 139/68 mmHg BP Sitting (Post-Dialysis) 134/73 mmHg Concurrent Access: falseAV Fistula Forearm (Left) Arterial BP Standing (Pre-Dialysis) 126/76 mmHg BP Standing (P ost-Dialysis) 126/75 mmHg Sitting Heart Rate Pre-Dialysis 65 BPM Sitting Heart Rate Post-Dialysis 67 BPM Standing Heart Rate Pre-Dialysis 74 BPM Standing Heart Rate Post-Dialysis 85 BPM Temperature Pre-Dialysis 97.5 degF Temperature Post -Dialysis 97.7 degF November 20, 2023 In-Center Hemodialysis Treatment [id number]:14:00.000Z 1401-40-50E03:45:19.000Z BP Sitting (Pre-Dialysis) 113/60 mmHg BP Sitting (Post-Dialysis) 120/74 mmHg Concurrent Access: falseAV Fistula Forearm (Left) Arterial BP Standing (Pre-Dialysis) 123/65 mmHg BP Standing (P ost-Dialysis) 133/69 mmHg Sitting Heart Rate Pre-Dialysis 66 BPM Sitting Heart Rate Post-Dialysis 66 BPM Standing Heart Rate Pre-Dialysis 73 BPM Standing Heart Rate Post-Dialysis 75 BPM Temperature Pre-Dialysis 97.7 degF Temperature Post -Dialysis 97.7 degF November 15, 2023 In-Center Hemodialysis Treatment [id number]:20:00.000Z 8285-36-14A19:52:09.000Z BP Sitting (Pre-Dialysis) 119/55 mmHg BP Sitting (Post-Dialysis) 124/69 mmHg Concurrent Access: falseAV Fistula Forearm (Left) Arterial BP Standing (Pre-Dialysis) 115/58 mmHg Sitting Heart Rate Post-Dialysis 74 BPM Sitting Heart Rate Pre-Dialysis 80 BPM Temperatu re Post-Dialysis 97 degF Standing Heart Rate Pre-Dialysis 79 BPM Temperature Pre-Dialysis 97.2 degF November 13, 2023 In-Center Hemodialysis Treatment [id number]:24:56.000Z 4130-87-36W95:51:11.000Z BP Sitting (Pre-Dialysis) 116/58 mmHg BP Sitting (Post-Dialysis) 120/70 mmHg Concurrent Access: falseAV Fistula Forearm (Left) Arterial BP Standing (Pre-Dialysis) 109/64 mmHg Sitti ng Heart Rate Post-Dialysis 81 BPM Sitting Heart Rate Pre-Dialysis 71 BPM Temperatu re Post-Dialysis 97.2 degF Standing Heart Rate Pre-Dialysis 80 BPM Temperature Pre-Dialysis 97.7 degF November 11, 2023 In-Center Hemodialysis Treatment [id number]:28:00.000Z 7260-49-40H84:58:29.000Z BP Sitting (Pre-Dialysis) 132/67 mmHg BP Sitting (Post-Dialysis) 129/64 mmHg Concurrent Access: falseAV Fistula Forearm (Left) Arterial BP Standing (Pre-Dialysis) 125/74 mmHg Sitti ng Heart Rate Post-Dialysis 80 BPM Sitting Heart Rate Pre-Dialysis 66 BPM Temperatu re Post-Dialysis 97.2 degF Standing Heart Rate Pre-Dialysis 81 BPM Temperature Pre-Dialysis 97.7 degF November 08, 2023 In-Center Hemodialysis Treatment [id number]:32:31.000Z 8204-35-92Q78:02:52.000Z BP Sitting (Pre-Dialysis) 102/58 mmHg BP Sitting (Post-Dialysis) 131/78 mmHg Concurrent Access: falseAV Fistula Forearm (Left) Arterial BP Standing (Pre-Dialysis) 119/73 mmHg BP Standing (P ost-Dialysis) 125/72 mmHg Sitting Heart Rate Pre-Dialysis 76 BPM Sitting Heart Rate Post-Dialysis 73 BPM Standing Heart Rate Pre-Dialysis 82 BPM Standing Heart Rate Post-Dialysis 72 BPM Temperature Pre-Dialysis 98.2 degF Temperature Post -Dialysis 97.7 degF November 06, 2023 In-Center Hemodialysis Treatment [id number]:20:04.000Z 7733-57-25S57:51:44.000Z BP Sitting (Pre-Dialysis) 123/62 mmHg BP Sitting (Post-Dialysis) 125/67 mmHg Concurrent Access: falseAV Fistula Forearm (Left) Arterial BP Standing (Pre-Dialysis) 112/64 mmHg BP Standing (P ost-Dialysis) 119/69 mmHg Sitting Heart Rate Pre-Dialysis 73 BPM Sitting Heart Rate Post-Dialysis 71 BPM Standing Heart Rate Pre-Dialysis 81 BPM Standing Heart Rate Post-Dialysis 91 BPM Temperature Pre-Dialysis 98.1 degF Temperature Post -Dialysis 98 degF November 04, 2023 In-Center Hemodialysis Treatment [id number]:25:50.000Z [id number]:58:45.000Z BP Sitting (Pre-Dialysis) 105/59 mmHg BP Sitting (Post-Dialysis) 129/69 mmHg Concurrent Access: falseAV Fistula Forearm (Left) Arterial BP Standing (Pre-Dialysis) 117/60 mmHg Sitti ng Heart Rate Post-Dialysis 75 BPM Sitting Heart Rate Pre-Dialysis 73 BPM Temperatu re Post-Dialysis 98.2 degF Standing Heart Rate Pre-Dialysis 75 BPM Temperature Pre-Dialysis 98.2 degF November 01, 2023 In-Center Hemodialysis Treatment 0171-57-15B95:30:37.000Z 6125-41-17M89:04:47.000Z BP Sitting (Pre-Dialysis) 115/63 mmHg BP Sitting (Post-Dialysis) 123/75 mmHg Concurrent Access: falseAV Fistula Forearm (Left) Arterial BP Standing (Pre-Dialysis) 117/56 mmHg BP Standing (P ost-Dialysis) 122/68 mmHg Sitting Heart Rate Pre-Dialysis 50 BPM Sitting Heart Rate Post-Dialysis 97 BPM Standing Heart Rate Pre-Dialysis 52 BPM Standing Heart Rate Post-Dialysis 97 BPM Temperature Pre-Dialysis 97.2 degF Temperature Post -Dialysis 97.2 degF October 30, 2023 In-Center Hemodialysis Treatment 6040-25-04P63:32:00.000Z 5920-35-59O53:03:20.000Z BP Sitting (Pre-Dialysis) 137/74 mmHg BP Sitting (Post-Dialysis) 142/77 mmHg Concurrent Access: falseAV Fistula Forearm (Left) Arterial BP Standing (Pre-Dialysis) 113/75 mmHg BP Standing (P ost-Dialysis) 120/66 mmHg Sitting Heart Rate Pre-Dialysis 91 BPM Sitting Heart Rate Post-Dialysis 81 BPM Standing Heart Rate Pre-Dialysis 58 BPM Standing Heart Rate Post-Dialysis 88 BPM Temperature Pre-Dialysis 97.2 degF Temperature Post -Dialysis 98.1 degF October 27, 2023 In-Center Hemodialysis Treatment [id number]:31:00.000Z 1337-54-62D92:27:44.000Z BP Sitting (Pre-Dialysis) 110/60 mmHg BP Sitting (Post-Dialysis) 126/67 mmHg Concurrent Access: falseAV Fistula Forearm (Left) Arterial BP Standing (Pre-Dialysis) 115/63 mmHg BP Standing (P ost-Dialysis) 108/76 mmHg Sitting Heart Rate Pre-Dialysis 80 BPM Sitting Heart Rate Post-Dialysis 73 BPM Standing Heart Rate Pre-Dialysis 81 BPM Standing Heart Rate Post-Dialysis 91 BPM Temperature Pre-Dialysis 97.2 degF Temperature Post -Dialysis 98 degF October 25, 2023 In-Center Hemodialysis Treatment [id number]:26:48.000Z 4815-49-43A01:55:33.000Z BP Sitting (Pre-Dialysis) 122/69 mmHg BP Sitting (Post-Dialysis) 112/66 mmHg Concurrent Access: falseAV Fistula Forearm (Left) Arterial BP Standing (Pre-Dialysis) 107/70 mmHg BP Standing (P ost-Dialysis) 117/66 mmHg Sitting Heart Rate Pre-Dialysis 77 BPM Sitting Heart Rate Post-Dialysis 72 BPM Standing Heart Rate Pre-Dialysis 75 BPM Standing Heart Rate Post-Dialysis 84 BPM Temperature Pre-Dialysis 97.2 degF Temperature Post -Dialysis 98.1 degF October 23, 2023 InCenter Hemodialysis Treatment 6746-77-43F16:34:51.000Z 1282-05-33N24:54:26.000Z BP Sitting (Pre-Dialysis) 123/68 mmHg BP Sitting (Post-Dialysis) 125/90 mmHg Concurrent Access: falseAV Fistula Forearm (Left) Arterial BP Standing (Pre-Dialysis) 133/69 mmHg Sitting Heart Rate Post-Dialysis 77 BPM Sitting Heart Rate Pre-Dialysis 65 BPM Temperatu re Post-Dialysis 98 degF Standing Heart Rate Pre-Dialysis 66 BPM Temperature Pre-Dialysis 97.2 degF October 20, 2023 In-Center Hemodialysis Treatment [id number]:18:00.000Z 7808-83-59J03:02:07.000Z BP Sitting (Pre-Dialysis) 107/66 mmHg BP Sitting (Post-Dialysis) 125/70 mmHg Concurrent Access: falseAV Fistula Forearm (Left) Arterial BP Standing (Pre-Dialysis) 138/75 mmHg Sitti ng Heart Rate Post-Dialysis 69 BPM Sitting Heart Rate Pre-Dialysis 67 BPM Temperatu re Post-Dialysis 98.2 degF Standing Heart Rate Pre-Dialysis 68 BPM Temperature Pre-Dialysis 97.7 degF October 18, 2023 In-Center Hemodialysis Treatment [id number]:18:26.000Z 7936-32-74J86:48:26.000Z BP Sitting (Pre-Dialysis) 124/64 mmHg BP Sitting (Post-Dialysis) 136/67 mmHg Concurrent Access: falseAV Fistula Forearm (Left) Arterial BP Standing (Pre-Dialysis) 123/62 mmHg BP Standing (P ost-Dialysis) 122/74 mmHg Sitting Heart Rate Pre-Dialysis 71 BPM Sitting Heart Rate Post-Dialysis 69 BPM Standing Heart Rate Pre-Dialysis 79 BPM Standing Heart Rate Post-Dialysis 81 BPM Temperature Pre-Dialysis 97.7 degF Temperature Post -Dialysis 97.7 degF October 16, 2023 In-Center Hemodialysis Treatment [id number]:20:11.000Z 1227-63-42F96:51:51.000Z BP Sitting (Pre-Dialysis) 118/71 mmHg BP Sitting (Post-Dialysis) 123/75 mmHg Concurrent Access: falseAV Fistula Forearm (Left) Arterial BP Standing (Pre-Dialysis) 125/68 mmHg Sitti ng Heart Rate Post-Dialysis 74 BPM Sitting Heart Rate Pre-Dialysis 70 BPM Temperatu re Post-Dialysis 97.4 degF Standing Heart Rate Pre-Dialysis 70 BPM Temperature Pre-Dialysis 97.6 degF October 14, 2023 In-Center Hemodialysis Treatment 3310-57-83P65:23:00.000Z [id number]:53:11.000Z BP Sitting (Pre-Dialysis) 123/65 mmHg BP Sitting (Post-Dialysis) 133/63 mmHg Concurrent Access: falseAV Fistula Forearm (Left) Arterial BP Standing (Pre-Dialysis) 117/71 mmHg BP Standing (P ost-Dialysis) 123/69 mmHg Sitting Heart Rate Pre-Dialysis 63 BPM Sitting Heart Rate Post-Dialysis 61 BPM Standing Heart Rate Pre-Dialysis 71 BPM Standing Heart Rate Post-Dialysis 69 BPM Temperature Pre-Dialysis 97.6 degF Temperature Post -Dialysis 97.6 degF October 11, 2023 In-Center Hemodialysis Treatment [id number]:25:46.000Z [id number]:56:36.000Z BP Sitting (Pre-Dialysis) 128/70 mmHg BP Sitting (Post-Dialysis) 119/71 mmHg Concurrent Access: falseAV Fistula Forearm (Left) Arterial BP Standing (Pre-Dialysis) 130/69 mmHg BP Standing (P ost-Dialysis) 126/76 mmHg Sitting Heart Rate Pre-Dialysis 63 BPM Sitting Heart Rate Post-Dialysis 72 BPM Standing Heart Rate Pre-Dialysis 59 BPM Standing Heart Rate Post-Dialysis 72 BPM Temperature Pre-Dialysis 97.6 degF Temperature Post -Dialysis 97.2 degF October 09, 2023 In-Center Hemodialysis Treatment [id number]:24:01.000Z [id number]:51:56.000Z BP Sitting (Pre-Dialysis) 121/62 mmHg BP Sitting (Post-Dialysis) 139/68 mmHg Concurrent Access: falseAV Fistula Forearm (Left) Arterial BP Standing (Pre-Dialysis) 122/67 mmHg BP Standing (P ost-Dialysis) 123/68 mmHg Sitting Heart Rate Pre-Dialysis 68 BPM Sitting Heart Rate Post-Dialysis 75 BPM Standing Heart Rate Pre-Dialysis 69 BPM Standing Heart Rate Post-Dialysis 75 BPM Temperature Pre-Dialysis 98 degF Temperature Post -Dialysis 97.2 degF October 07, 2023 In-Center Hemodialysis Treatment [id number]:29:00.000Z [id number]:03:35.000Z BP Sitting (Pre-Dialysis) 127/65 mmHg BP Sitting (Post-Dialysis) 131/71 mmHg Concurrent Access: falseAV Fistula Forearm (Left) Arterial BP Standing (Pre-Dialysis) 127/71 mmHg BP Standing (P ost-Dialysis) 144/73 mmHg Sitting Heart Rate Pre-Dialysis 68 BPM Sitting Heart Rate Post-Dialysis 61 BPM Standing Heart Rate Pre-Dialysis 72 BPM Standing Heart Rate Post-Dialysis 77 BPM Temperature Pre-Dialysis 98.1 degF Temperature Post -Dialysis 97 degF October 04, 2023 In-Center Hemodialysis Treatment [id number]:28:45.000Z [id number]:57:05.000Z BP Sitting (Pre-Dialysis) 123/61 mmHg BP Sitting (Post-Dialysis) 122/72 mmHg Concurrent Access: falseAV Fistula Forearm (Left) Arterial BP Standing (Pre-Dialysis) 131/75 mmHg BP Standing (P ost-Dialysis) 107/69 mmHg Sitting Heart Rate Pre-Dialysis 69 BPM Sitting Heart Rate Post-Dialysis 80 BPM Standing Heart Rate Pre-Dialysis 74 BPM Standing Heart Rate Post-Dialysis 91 BPM Temperature Pre-Dialysis 97.7 degF Temperature Post -Dialysis 97.4 degF October 02, 2023 In-Center Hemodialysis Treatment [id number]:29:00.000Z [id number]:00:17.000Z BP Sitting (Pre-Dialysis) 124/63 mmHg BP Sitting (Post-Dialysis) 137/50 mmHg Concurrent Access: falseAV Fistula Forearm (Left) Arterial BP Standing (Pre-Dialysis) 132/68 mmHg BP Standing (P ost-Dialysis) 141/70 mmHg Sitting Heart Rate Pre-Dialysis 74 BPM Sitting Heart Rate Post-Dialysis 65 BPM Standing Heart Rate Pre-Dialysis 80 BPM Standing Heart Rate Post-Dialysis 66 BPM Temperature Pre-Dialysis 97.9 degF Temperature Post -Dialysis 97.2 degF September 30, 2023 In-Center Hemodialysis Treatment [id number]:26:12.000Z [id number]:01:12.000Z BP Sitting (Pre-Dialysis) 141/70 mmHg BP Sitting (Post-Dialysis) 139/74 mmHg Concurrent Access: falseAV Fistula Forearm (Left) Arterial BP Standing (Pre-Dialysis) 119/74 mmHg BP Standing (P ost-Dialysis) 133/69 mmHg Sitting Heart Rate Pre-Dialysis 65 BPM Sitting Heart Rate Post-Dialysis 59 BPM Standing Heart Rate Pre-Dialysis 75 BPM Standing Heart Rate Post-Dialysis 58 BPM Temperature Pre-Dialysis 97.7 degF Temperature Post -Dialysis 97.2 degF September 27, 2023 In-Center Hemodialysis Treatment [id number]:15:45.000Z [id number]:43:48.000Z BP Sitting (Pre-Dialysis) 115/70 mmHg BP Sitting (Post-Dialysis) 126/69 mmHg Concurrent Access: falseAV Fistula Forearm (Left) Arterial BP Standing (Pre-Dialysis) 121/72 mmHg BP Standing (P ost-Dialysis) 139/72 mmHg Sitting Heart Rate Pre-Dialysis 75 BPM Sitting Heart Rate Post-Dialysis 87 BPM Standing Heart Rate Pre-Dialysis 76 BPM Standing Heart Rate Post-Dialysis 78 BPM Temperature Pre-Dialysis 98.5 degF Temperature Post -Dialysis 98.2 degF September 25, 2023 In-Center Hemodialysis Treatment 1909-08-20D76:14:14.000Z [id number]:47:34.000Z BP Sitting (Pre-Dialysis) 129/66 mmHg BP Sitting (Post-Dialysis) 120/69 mmHg Concurrent Access: falseAV Fistula Forearm (Left) Arterial BP Standing (Pre-Dialysis) 125/62 mmHg BP Standing (P ost-Dialysis) 120/68 mmHg Sitting Heart Rate Pre-Dialysis 75 BPM Sitting Heart Rate Post-Dialysis 69 BPM Standing Heart Rate Pre-Dialysis 73 BPM Standing Heart Rate Post-Dialysis 69 BPM Temperature Pre-Dialysis 97.9 degF Temperature Post -Dialysis 98.2 degF September 23, 2023 In-Center Hemodialysis Treatment [id number]:28:52.000Z [id number]:58:02.000Z BP Sitting (Pre-Dialysis) 126/64 mmHg BP Sitting (Post-Dialysis) 118/64 mmHg Concurrent Access: falseAV Fistula Forearm (Left) Arterial BP Standing (Pre-Dialysis) 125/60 mmHg BP Standing (P ost-Dialysis) 111/62 mmHg Sitting Heart Rate Pre-Dialysis 64 BPM Sitting Heart Rate Post-Dialysis 65 BPM Standing Heart Rate Pre-Dialysis 62 BPM Standing Heart Rate Post-Dialysis 62 BPM Temperature Pre-Dialysis 97.2 degF Temperature Post -Dialysis 97 degF September 20, 2023 In-Center Hemodialysis Treatment [id number]:17:00.000Z [id number]:38:35.000Z BP Sitting (Pre-Dialysis) 123/71 mmHg BP Sitting (Post-Dialysis) 148/75 mmHg Concurrent Access: falseAV Fistula Forearm (Left) Arterial BP Standing (Pre-Dialysis) 142/65 mmHg BP Standing (P ost-Dialysis) 134/77 mmHg Sitting Heart Rate Pre-Dialysis 68 BPM Sitting Heart Rate Post-Dialysis 67 BPM Standing Heart Rate Pre-Dialysis 73 BPM Standing Heart Rate Post-Dialysis 77 BPM Temperature Pre-Dialysis 97.7 degF Temperature Post -Dialysis 97.4 degF September 17, 2023 In-Center Hemodialysis Treatment [id number]:15:07.000Z [id number]:32:37.000Z BP Sitting (Pre-Dialysis) 120/61 mmHg BP Sitting (Post-Dialysis) 140/71 mmHg Concurrent Access: falseAV Fistula Forearm (Left) Arterial BP Standing (Pre-Dialysis) 147/72 mmHg BP Standing (P ost-Dialysis) 152/72 mmHg Sitting Heart Rate Pre-Dialysis 70 BPM Sitting Heart Rate Post-Dialysis 60 BPM Standing Heart Rate Pre-Dialysis 72 BPM Standing Heart Rate Post-Dialysis 71 BPM Temperature Pre-Dialysis 97.9 degF Temperature Post -Dialysis 97.2 degF September 15, 2023 In-Center Hemodialysis Treatment [id number]:11:00.000Z [id number]:44:30.000Z BP Sitting (Pre-Dialysis) 137/67 mmHg BP Sitting (Post-Dialysis) 128/64 mmHg Concurrent Access: falseAV Fistula Forearm (Left) Arterial BP Standing (Pre-Dialysis) 125/66 mmHg BP Standing (P ost-Dialysis) 123/77 mmHg Sitting Heart Rate Pre-Dialysis 62 BPM Sitting Heart Rate Post-Dialysis 58 BPM Standing Heart Rate Pre-Dialysis 70 BPM Standing Heart Rate Post-Dialysis 77 BPM Temperature Pre-Dialysis 97.5 degF Temperature Post -Dialysis 97.9 degF September 13, 2023 In-Center Hemodialysis Treatment [id number]:18:00.000Z [id number]:49:39.000Z BP Sitting (Pre-Dialysis) 95/67 mmHg BP Sitting (Post-Dialysis) 138/63 mmHg Concurrent Access: falseAV Fistula Forearm (Left) Arterial BP Standing (Pre-Dialysis) 137/63 mmHg Sitti ng Heart Rate Post-Dialysis 64 BPM Sitting Heart Rate Pre-Dialysis 72 BPM Temperatu re Post-Dialysis 97.6 degF Standing Heart Rate Pre-Dialysis 70 BPM Temperature Pre-Dialysis 97.7 degF September 11, 2023 In-Center Hemodialysis Treatment [id number]:28:36.000Z [id number]:58:11.000Z BP Sitting (Pre-Dialysis) 119/69 mmHg BP Sitting (Post-Dialysis) 115/67 mmHg Concurrent Access: falseAV Fistula Forearm (Left) Arterial BP Standing (Pre-Dialysis) 108/65 mmHg BP Standing (P ost-Dialysis) 125/65 mmHg Sitting Heart Rate Pre-Dialysis 68 BPM Sitting Heart Rate Post-Dialysis 74 BPM Standing Heart Rate Pre-Dialysis 69 BPM Standing Heart Rate Post-Dialysis 70 BPM Temperature Pre-Dialysis 97.2 degF Temperature Post -Dialysis 97.2 degF September 09, 2023 In-Center Hemodialysis Treatment [id number]:18:05.000Z [id number]:51:00.000Z BP Sitting (Pre-Dialysis) 117/60 mmHg BP Sitting (Post-Dialysis) 157/65 mmHg Concurrent Access: falseAV Fistula Forearm (Left) Arterial BP Standing (Pre-Dialysis) 110/58 mmHg BP Standing (P ost-Dialysis) 133/76 mmHg Sitting Heart Rate Pre-Dialysis 63 BPM Sitting Heart Rate Post-Dialysis 59 BPM Standing Heart Rate Pre-Dialysis 69 BPM Standing Heart Rate Post-Dialysis 73 BPM Temperature Pre-Dialysis 97.7 degF Temperature Post -Dialysis 97.5 degF September 06, 2023 In-Center Hemodialysis Treatment [id number]:08:22.000Z [id number]:39:12.000Z BP Sitting (Pre-Dialysis) 100/54 mmHg BP Sitting (Post-Dialysis) 140/64 mmHg Concurrent Access: falseAV Fistula Forearm (Left) Arterial BP Standing (Pre-Dialysis) 103/55 mmHg BP Standing (P ost-Dialysis) 141/62 mmHg Sitting Heart Rate Pre-Dialysis 66 BPM Sitting Heart Rate Post-Dialysis 72 BPM Standing Heart Rate Pre-Dialysis 65 BPM Standing Heart Rate Post-Dialysis 70 BPM Temperature Pre-Dialysis 97.2 degF Temperature Post -Dialysis 97.2 degF September 04, 2023 In-Center Hemodialysis Treatment [id number]:22:00.000Z [id number]:49:35.000Z BP Sitting (Pre-Dialysis) 129/65 mmHg BP Sitting (Post-Dialysis) 123/68 mmHg Concurrent Access: falseAV Fistula Forearm (Left) Arterial BP Standing (Pre-Dialysis) 137/77 mmHg BP Standing (P ost-Dialysis) 125/74 mmHg Sitting Heart Rate Pre-Dialysis 60 BPM Sitting Heart Rate Post-Dialysis 64 BPM Standing Heart Rate Pre-Dialysis 72 BPM Standing Heart Rate Post-Dialysis 66 BPM Temperature Pre-Dialysis 97.2 degF Temperature Post -Dialysis 97.2 degF September 02, 2023 In-Center Hemodialysis Treatment [id number]:06:02.000Z 1713-61-24G22:36:27.000Z BP Sitting (Pre-Dialysis) 120/58 mmHg BP Sitting (Post-Dialysis) 119/76 mmHg Concurrent Access: falseAV Fistula Forearm (Left) Arterial BP Standing (Pre-Dialysis) 104/55 mmHg Sitti ng Heart Rate Post-Dialysis 68 BPM Sitting Heart Rate Pre-Dialysis 60 BPM Temperatu re Post-Dialysis 97.2 degF Standing Heart Rate Pre-Dialysis 63 BPM Temperature Pre-Dialysis 97.2 degF August 30, 2023 In-Center Hemodialysis Treatment [id number]:21:00.000Z 3170-52-44V29:53:07.000Z BP Sitting (Pre-Dialysis) 124/62 mmHg BP Sitting (Post-Dialysis) 113/68 mmHg Concurrent Access: falseAV Fistula Forearm (Left) Arterial BP Standing (Pre-Dialysis) 104/62 mmHg BP Standing (P ost-Dialysis) 123/70 mmHg Sitting Heart Rate Pre-Dialysis 73 BPM Sitting Heart Rate Post-Dialysis 77 BPM Standing Heart Rate Pre-Dialysis 71 BPM Standing Heart Rate Post-Dialysis 70 BPM Temperature Pre-Dialysis 98.4 degF Temperature Post -Dialysis 98.2 degF August 28, 2023 In-Center Hemodialysis Treatment [id number]:37:00.000Z [id number]:00:30.000Z BP Sitting (Pre-Dialysis) 143/80 mmHg BP Sitting (Post-Dialysis) 159/75 mmHg Concurrent Access: falseAV Fistula Forearm (Left) Arterial BP Standing (Pre-Dialysis) 142/79 mmHg Sitti ng Heart Rate Post-Dialysis 71 BPM Sitting Heart Rate Pre-Dialysis 73 BPM Temperatu re Post-Dialysis 97.6 degF Standing Heart Rate Pre-Dialysis 69 BPM Temperature Pre-Dialysis 97.6 degF August 26, 2023 In-Center Hemodialysis Treatment [id number]:33:00.000Z 1308-17-09A75:07:00.000Z BP Sitting (Pre-Dialysis) 145/72 mmHg BP Sitting (Post-Dialysis) 130/72 mmHg Concurrent Access: falseAV Fistula Forearm (Left) Arterial BP Standing (Pre-Dialysis) 141/74 mmHg BP Standing (P ost-Dialysis) 134/74 mmHg Sitting Heart Rate Pre-Dialysis 68 BPM Sitting Heart Rate Post-Dialysis 60 BPM Standing Heart Rate Pre-Dialysis 69 BPM Standing Heart Rate Post-Dialysis 62 BPM Temperature Pre-Dialysis 97.2 degF Temperature Post -Dialysis 97.2 degF August 23, 2023 In-Center Hemodialysis Treatment 6810-27-85S26:20:00.000Z [id number]:54:35.000Z BP Sitting (Pre-Dialysis) 129/69 mmHg BP Sitting (Post-Dialysis) 133/61 mmHg Concurrent Access: falseAV Fistula Forearm (Left) Arterial BP Standing (Pre-Dialysis) 116/64 mmHg Sitti ng Heart Rate Post-Dialysis 60 BPM Sitting Heart Rate Pre-Dialysis 69 BPM Temperatu re Post-Dialysis 97.4 degF Standing Heart Rate Pre-Dialysis 77 BPM Temperature Pre-Dialysis 98.1 degF August 21, 2023 In-Center Hemodialysis Treatment 1516-07-91S49:28:00.000Z 1424-51-93Y98:02:02.000Z BP Sitting (Pre-Dialysis) 133/67 mmHg BP Sitting (Post-Dialysis) 135/80 mmHg Concurrent Access: falseAV Fistula Forearm (Left) Arterial BP Standing (Pre-Dialysis) 124/67 mmHg BP Standing (P ost-Dialysis) 134/63 mmHg Sitting Heart Rate Pre-Dialysis 64 BPM Sitting Heart Rate Post-Dialysis 81 BPM Standing Heart Rate Pre-Dialysis 71 BPM Standing Heart Rate Post-Dialysis 84 BPM Temperature Pre-Dialysis 97.6 degF Temperature Post -Dialysis 97.6 degF August 19, 2023 In-Center Hemodialysis Treatment [id number]:23:58.000Z 4600-76-41K49:48:08.000Z BP Sitting (Pre-Dialysis) 139/62 mmHg BP Sitting (Post-Dialysis) 143/66 mmHg Concurrent Access: falseAV Fistula Forearm (Left) Arterial BP Standing (Pre-Dialysis) 146/69 mmHg BP Standing (P ost-Dialysis) 133/65 mmHg Sitting Heart Rate Pre-Dialysis 69 BPM Sitting Heart Rate Post-Dialysis 55 BPM Standing Heart Rate Pre-Dialysis 65 BPM Standing Heart Rate Post-Dialysis 54 BPM Temperature Pre-Dialysis 98.2 degF Temperature Post -Dialysis 97.2 degF August 16, 2023 In-Center Hemodialysis Treatment [id number]:18:45.000Z [id number]:45:25.000Z BP Sitting (Pre-Dialysis) 127/82 mmHg BP Sitting (Post-Dialysis) 153/73 mmHg Concurrent Access: falseAV Fistula Forearm (Left) Arterial BP Standing (Pre-Dialysis) 133/85 mmHg BP Standing (P ost-Dialysis) 147/72 mmHg Sitting Heart Rate Pre-Dialysis 68 BPM Sitting Heart Rate Post-Dialysis 66 BPM Standing Heart Rate Pre-Dialysis 69 BPM Standing Heart Rate Post-Dialysis 65 BPM Temperature Pre-Dialysis 97.2 degF Temperature Post -Dialysis 97.2 degF August 14, 2023 In-Center Hemodialysis Treatment [id number]:19:04.000Z [id number]:53:39.000Z BP Sitting (Pre-Dialysis) 155/76 mmHg BP Sitting (Post-Dialysis) 159/74 mmHg Concurrent Access: falseAV Fistula Forearm (Left) Arterial BP Standing (Pre-Dialysis) 146/82 mmHg BP Standing (P ost-Dialysis) 159/96 mmHg Sitting Heart Rate Pre-Dialysis 66 BPM Sitting Heart Rate Post-Dialysis 74 BPM Standing Heart Rate Pre-Dialysis 73 BPM Standing Heart Rate Post-Dialysis 74 BPM Temperature Pre-Dialysis 98.2 degF Temperature Post -Dialysis 97.3 degF August 12, 2023 In-Center Hemodialysis Treatment [id number]:46:13.000Z [id number]:47:28.000Z BP Sitting (Pre-Dialysis) 152/73 mmHg BP Sitting (Post-Dialysis) 152/71 mmHg Concurrent Access: falseAV Fistula Forearm (Left) Arterial BP Standing (Pre-Dialysis) 153/67 mmHg BP Standing (P ost-Dialysis) 143/70 mmHg Sitting Heart Rate Pre-Dialysis 59 BPM Sitting Heart Rate Post-Dialysis 73 BPM Standing Heart Rate Pre-Dialysis 58 BPM Standing Heart Rate Post-Dialysis 70 BPM Temperature Pre-Dialysis 98.2 degF Temperature Post -Dialysis 98.2 degF August 09, 2023 In-Center Hemodialysis Treatment [id number]:19:00.000Z [id number]:50:00.000Z BP Sitting (Pre-Dialysis) 127/65 mmHg BP Sitting (Post-Dialysis) 112/69 mmHg Concurrent Access: falseAV Fistula Forearm (Left) Arterial BP Standing (Pre-Dialysis) 149/82 mmHg BP Standing (P ost-Dialysis) 138/74 mmHg Sitting Heart Rate Pre-Dialysis 68 BPM Sitting Heart Rate Post-Dialysis 67 BPM Standing Heart Rate Pre-Dialysis 77 BPM Standing Heart Rate Post-Dialysis 81 BPM Temperature Pre-Dialysis 98 degF Temperature Post -Dialysis 97.5 degF August 07, 2023 In-Center Hemodialysis Treatment 7540-77-93N15:26:31.000Z [id number]:56:31.000Z BP Sitting (Pre-Dialysis) 133/71 mmHg BP Sitting (Post-Dialysis) 146/76 mmHg Concurrent Access: falseAV Fistula Forearm (Left) Arterial BP Standing (Pre-Dialysis) 123/68 mmHg BP Standing (P ost-Dialysis) 150/75 mmHg Sitting Heart Rate Pre-Dialysis 71 BPM Sitting Heart Rate Post-Dialysis 62 BPM Standing Heart Rate Pre-Dialysis 66 BPM Standing Heart Rate Post-Dialysis 60 BPM Temperature Pre-Dialysis 98.2 degF Temperature Post -Dialysis 97.2 degF August 05, 2023 In-Center Hemodialysis Treatment 5215-63-54M21:18:37.000Z 9970-72-78P87:48:37.000Z BP Sitting (Pre-Dialysis) 137/63 mmHg BP Sitting (Post-Dialysis) 120/76 mmHg Concurrent Access: falseAV Fistula Forearm (Left) Arterial BP Standing (Pre-Dialysis) 135/62 mmHg BP Standing (P ost-Dialysis) 118/75 mmHg Sitting Heart Rate Pre-Dialysis 70 BPM Sitting Heart Rate Post-Dialysis 69 BPM Standing Heart Rate Pre-Dialysis 70 BPM Standing Heart Rate Post-Dialysis 68 BPM Temperature Pre-Dialysis 97.2 degF Temperature Post -Dialysis 97.2 degF August 02, 2023 In-Center Hemodialysis Treatment [id number]:21:02.000Z [id number]:51:27.000Z BP Sitting (Pre-Dialysis) 125/63 mmHg BP Sitting (Post-Dialysis) 165/67 mmHg Concurrent Access: falseAV Fistula Forearm (Left) Arterial BP Standing (Pre-Dialysis) 125/68 mmHg BP Standing (P ost-Dialysis) 141/77 mmHg Sitting Heart Rate Pre-Dialysis 75 BPM Sitting Heart Rate Post-Dialysis 70 BPM Standing Heart Rate Pre-Dialysis 76 BPM Standing Heart Rate Post-Dialysis 74 BPM Temperature Pre-Dialysis 97.7 degF Temperature Post -Dialysis 97.9 degF July 31, 2023 In-Center Hemodialysis Treatment 5022-27-31L62:14:00.000Z 2415-30-61G62:48:33.000Z BP Sitting (Pre-Dialysis) 124/57 mmHg BP Sitting (Post-Dialysis) 135/68 mmHg Concurrent Access: falseAV Fistula Forearm (Left) Arterial BP Standing (Pre-Dialysis) 101/61 mmHg BP Standing (P ost-Dialysis) 116/76 mmHg Sitting Heart Rate Pre-Dialysis 73 BPM Sitting Heart Rate Post-Dialysis 57 BPM Standing Heart Rate Pre-Dialysis 83 BPM Standing Heart Rate Post-Dialysis 76 BPM Temperature Pre-Dialysis 97.5 degF Temperature Post -Dialysis 97.6 degF July 29, 2023 In-Center Hemodialysis Treatment 8931-40-29Z12:15:18.000Z 6969-68-73R61:44:53.000Z BP Sitting (Pre-Dialysis) 110/69 mmHg BP Sitting (Post-Dialysis) 154/73 mmHg Concurrent Access: falseAV Fistula Forearm (Left) Arterial BP Standing (Pre-Dialysis) 112/69 mmHg BP Standing (P ost-Dialysis) 127/62 mmHg Sitting Heart Rate Pre-Dialysis 80 BPM Sitting Heart Rate Post-Dialysis 69 BPM Standing Heart Rate Pre-Dialysis 82 BPM Standing Heart Rate Post-Dialysis 63 BPM Temperature Pre-Dialysis 98.2 degF Temperature Post -Dialysis 97.2 degF July 26, 2023 In-Center Hemodialysis Treatment [id number]:25:00.000Z 8536-99-28H65:58:10.000Z BP Sitting (Pre-Dialysis) 108/64 mmHg BP Sitting (Post-Dialysis) 151/67 mmHg Concurrent Access: falseAV Fistula Forearm (Left) Arterial BP Standing (Pre-Dialysis) 110/66 mmHg BP Standing (P ost-Dialysis) 141/89 mmHg Sitting Heart Rate Pre-Dialysis 71 BPM Sitting Heart Rate Post-Dialysis 77 BPM Standing Heart Rate Pre-Dialysis 80 BPM Standing Heart Rate Post-Dialysis 76 BPM Temperature Pre-Dialysis 97.9 degF Temperature Post -Dialysis 98 degF July 24, 2023 In-Center Hemodialysis Treatment [id number]:21:26.000Z 5441-23-63S09:51:01.000Z BP Sitting (Pre-Dialysis) 98/69 mmHg BP Sitting (Post-Dialysis) 136/70 mmHg Concurrent Access: falseAV Fistula Forearm (Left) Arterial BP Standing (Pre-Dialysis) 119/65 mmHg Sitti ng Heart Rate Post-Dialysis 58 BPM Sitting Heart Rate Pre-Dialysis 69 BPM Temperatu re Post-Dialysis 98.2 degF Standing Heart Rate Pre-Dialysis 69 BPM Temperature Pre-Dialysis 98.2 degF July 22, 2023 In-Center Hemodialysis Treatment [id number]:30:00.000Z [id number]:02:07.000Z BP Sitting (Pre-Dialysis) 124/64 mmHg BP Sitting (Post-Dialysis) 141/74 mmHg Concurrent Access: falseAV Fistula Forearm (Left) Arterial BP Standing (Pre-Dialysis) 115/72 mmHg BP Standing (P ost-Dialysis) 142/70 mmHg Sitting Heart Rate Pre-Dialysis 75 BPM Sitting Heart Rate Post-Dialysis 69 BPM Standing Heart Rate Pre-Dialysis 84 BPM Standing Heart Rate Post-Dialysis 76 BPM Temperature Pre-Dialysis 98.1 degF Temperature Post -Dialysis 98.2 degF July 19, 2023 In-Center Hemodialysis Treatment [id number]:32:00.000Z 4144-29-57D20:12:13.000Z BP Sitting (Pre-Dialysis) 169/78 mmHg BP Sitting (Post-Dialysis) 132/74 mmHg Concurrent Access: falseAV Fistula Forearm (Left) Arterial BP Standing (Pre-Dialysis) 142/68 mmHg BP Standing (P ost-Dialysis) 165/80 mmHg Sitting Heart Rate Pre-Dialysis 73 BPM Sitting Heart Rate Post-Dialysis 63 BPM Standing Heart Rate Pre-Dialysis 72 BPM Standing Heart Rate Post-Dialysis 82 BPM Temperature Pre-Dialysis 97.6 degF Temperature Post -Dialysis 97.7 degF July 17, 2023 In-Center Hemodialysis Treatment 4944-09-43A26:10:00.000Z 3199-40-32O25:45:31.000Z BP Sitting (Pre-Dialysis) 104/74 mmHg BP Sitting (Post-Dialysis) 139/66 mmHg Concurrent Access: falseAV Fistula Forearm (Left) Arterial BP Standing (Pre-Dialysis) 102/69 mmHg BP Standing (P ost-Dialysis) 136/69 mmHg Sitting Heart Rate Pre-Dialysis 67 BPM Sitting Heart Rate Post-Dialysis 56 BPM Standing Heart Rate Pre-Dialysis 73 BPM Standing Heart Rate Post-Dialysis 59 BPM Temperature Pre-Dialysis 97.6 degF Temperature Post -Dialysis 98.2 degF July 15, 2023 In-Center Hemodialysis Treatment [id number]:20:00.000Z 8518-13-72U25:00:36.000Z BP Sitting (Pre-Dialysis) 123/62 mmHg BP Sitting (Post-Dialysis) 132/71 mmHg Concurrent Access: falseAV Fistula Forearm (Left) Arterial BP Standing (Pre-Dialysis) 127/65 mmHg BP Standing (P ost-Dialysis) 142/71 mmHg Sitting Heart Rate Pre-Dialysis 55 BPM Sitting Heart Rate Post-Dialysis 57 BPM Standing Heart Rate Pre-Dialysis 57 BPM Standing Heart Rate Post-Dialysis 63 BPM Temperature Pre-Dialysis 97.2 degF Temperature Post -Dialysis 98.1 degF July 12, 2023 In-Center Hemodialysis Treatment [id number]:32:00.000Z 1063-76-68P27:01:39.000Z BP Sitting (Pre-Dialysis) 94/68 mmHg BP Sitting (Post-Dialysis) 120/69 mmHg Concurrent Access: falseAV Fistula Forearm (Left) Arterial BP Standing (Pre-Dialysis) 113/78 mmHg BP Standing (P ost-Dialysis) 118/68 mmHg Sitting Heart Rate Pre-Dialysis 64 BPM Sitting Heart Rate Post-Dialysis 69 BPM Standing Heart Rate Pre-Dialysis 68 BPM Standing Heart Rate Post-Dialysis 69 BPM Temperature Pre-Dialysis 98 degF Temperature Post -Dialysis 97.2 degF July 10, 2023 In-Center Hemodialysis Treatment [id number]:16:21.000Z 7055-70-83C59:49:42.000Z BP Sitting (Pre-Dialysis) 124/81 mmHg BP Sitting (Post-Dialysis) 151/72 mmHg Concurrent Access: falseAV Fistula Forearm (Left) Arterial BP Standing (Pre-Dialysis) 122/76 mmHg BP Standing (P ost-Dialysis) 142/40 mmHg Sitting Heart Rate Pre-Dialysis 66 BPM Sitting Heart Rate Post-Dialysis 57 BPM Standing Heart Rate Pre-Dialysis 65 BPM Standing Heart Rate Post-Dialysis 67 BPM Temperature Pre-Dialysis 97.2 degF Temperature Post -Dialysis 97.2 degF July 08, 2023 In-Center Hemodialysis Treatment 1689-10-69T24:25:00.000Z 4755-39-08N28:59:34.000Z BP Sitting (Pre-Dialysis) 118/61 mmHg BP Sitting (Post-Dialysis) 136/65 mmHg Concurrent Access: falseAV Fistula Forearm (Left) Arterial BP Standing (Pre-Dialysis) 124/66 mmHg BP Standing (P ost-Dialysis) 136/72 mmHg Sitting Heart Rate Pre-Dialysis 56 BPM Sitting Heart Rate Post-Dialysis 62 BPM Standing Heart Rate Pre-Dialysis 58 BPM Standing Heart Rate Post-Dialysis 66 BPM Temperature Pre-Dialysis 97.2 degF July 05, 2023 In-Center Hemodialysis Treatment [id number]:15:36.000Z [id number]:46:26.000Z BP Sitting (Pre-Dialysis) 120/69 mmHg BP Sitting (Post-Dialysis) 150/61 mmHg Concurrent Access: falseAV Fistula Forearm (Left) Arterial BP Standing (Pre-Dialysis) 120/60 mmHg BP Standing (P ost-Dialysis) 133/68 mmHg Sitting Heart Rate Pre-Dialysis 69 BPM Sitting Heart Rate Post-Dialysis 59 BPM Standing Heart Rate Pre-Dialysis 63 BPM Standing Heart Rate Post-Dialysis 58 BPM Temperature Pre-Dialysis 97.2 degF Temperature Post -Dialysis 97.2 degF July 03, 2023 In-Center Hemodialysis Treatment [id number]:24:00.000Z 7475-28-05U57:57:10.000Z BP Sitting (Pre-Dialysis) 123/61 mmHg BP Sitting (Post-Dialysis) 145/62 mmHg Concurrent Access: falseAV Fistula Forearm (Left) Arterial BP Standing (Pre-Dialysis) 123/66 mmHg BP Standing (P ost-Dialysis) 125/73 mmHg Sitting Heart Rate Pre-Dialysis 61 BPM Sitting Heart Rate Post-Dialysis 57 BPM Standing Heart Rate Pre-Dialysis 62 BPM Standing Heart Rate Post-Dialysis 68 BPM Temperature Pre-Dialysis 98 degF Temperature Post -Dialysis 97.6 degF July 01, 2023 In-Center Hemodialysis Treatment [id number]:25:00.000Z 7080-98-30E34:00:42.000Z BP Sitting (Pre-Dialysis) 146/78 mmHg BP Sitting (Post-Dialysis) 138/71 mmHg Concurrent Access: falseAV Fistula Forearm (Left) Arterial BP Standing (Pre-Dialysis) 136/70 mmHg Sitti ng Heart Rate Post-Dialysis 55 BPM Sitting Heart Rate Pre-Dialysis 59 BPM Temperatu re Post-Dialysis 97.8 degF Standing Heart Rate Pre-Dialysis 63 BPM Temperature Pre-Dialysis 98.1 degF June 28, 2023 In-Center Hemodialysis Treatment 8045-04-53W01:25:41.000Z [id number]:56:56.000Z BP Sitting (Pre-Dialysis) 127/67 mmHg BP Sitting (Post-Dialysis) 147/69 mmHg Concurrent Access: falseAV Fistula Forearm (Left) Arterial BP Standing (Pre-Dialysis) 128/76 mmHg BP Standing (P ost-Dialysis) 150/72 mmHg Sitting Heart Rate Pre-Dialysis 64 BPM Sitting Heart Rate Post-Dialysis 61 BPM Standing Heart Rate Pre-Dialysis 73 BPM Standing Heart Rate Post-Dialysis 67 BPM Temperature Pre-Dialysis 97.7 degF Temperature Post -Dialysis 97.6 degF June 26, 2023 In-Center Hemodialysis Treatment 5102-07-27T05:20:00.000Z [id number]:47:37.000Z BP Sitting (Pre-Dialysis) 118/61 mmHg BP Sitting (Post-Dialysis) 145/75 mmHg Concurrent Access: falseAV Fistula Forearm (Left) Arterial BP Standing (Pre-Dialysis) 123/65 mmHg BP Standing (P ost-Dialysis) 156/76 mmHg Sitting Heart Rate Pre-Dialysis 59 BPM Sitting Heart Rate Post-Dialysis 72 BPM Standing Heart Rate Pre-Dialysis 59 BPM Standing Heart Rate Post-Dialysis 74 BPM Temperature Pre-Dialysis 97.2 degF Temperature Post -Dialysis 97.2 degF June 24, 2023 In-Center Hemodialysis Treatment [id number]:20:00.000Z [id number]:51:49.000Z BP Sitting (Pre-Dialysis) 135/63 mmHg BP Sitting (Post-Dialysis) 143/74 mmHg Concurrent Access: falseAV Fistula Forearm (Left) Arterial BP Standing (Pre-Dialysis) 127/63 mmHg BP Standing (P ost-Dialysis) 150/55 mmHg Sitting Heart Rate Pre-Dialysis 51 BPM Sitting Heart Rate Post-Dialysis 56 BPM Standing Heart Rate Pre-Dialysis 58 BPM Standing Heart Rate Post-Dialysis 64 BPM Temperature Pre-Dialysis 97.7 degF Temperature Post -Dialysis 97.6 degF June 21, 2023 In-Center Hemodialysis Treatment [id number]:27:00.000Z [id number]:57:02.000Z BP Sitting (Pre-Dialysis) 115/48 mmHg BP Sitting (Post-Dialysis) 136/67 mmHg Concurrent Access: falseAV Fistula Forearm (Left) Arterial BP Standing (Pre-Dialysis) 106/65 mmHg BP Standing (P ost-Dialysis) 129/69 mmHg Sitting Heart Rate Pre-Dialysis 64 BPM Sitting Heart Rate Post-Dialysis 55 BPM Standing Heart Rate Pre-Dialysis 83 BPM Standing Heart Rate Post-Dialysis 56 BPM Temperature Pre-Dialysis 97.4 degF Temperature Post -Dialysis 97.6 degF June 19, 2023 In-Center Hemodialysis Treatment [id number]:13:17.000Z [id number]:44:32.000Z BP Sitting (Pre-Dialysis) 106/54 mmHg BP Sitting (Post-Dialysis) 157/69 mmHg Concurrent Access: falseAV Fistula Forearm (Left) Arterial BP Standing (Pre-Dialysis) 122/60 mmHg Sitti ng Heart Rate Post-Dialysis 62 BPM Sitting Heart Rate Pre-Dialysis 55 BPM Temperatu re Post-Dialysis 97.2 degF Standing Heart Rate Pre-Dialysis 58 BPM Temperature Pre-Dialysis 97.2 degF June 17, 2023 In-Center Hemodialysis Treatment 4893-03-25S45:41:57.000Z [id number]:13:12.000Z BP Sitting (Pre-Dialysis) 125/67 mmHg BP Sitting (Post-Dialysis) 119/67 mmHg Concurrent Access: falseAV Fistula Forearm (Left) Arterial BP Standing (Pre-Dialysis) 121/58 mmHg BP Standing (P ost-Dialysis) 146/71 mmHg Sitting Heart Rate Pre-Dialysis 54 BPM Sitting Heart Rate Post-Dialysis 65 BPM Standing Heart Rate Pre-Dialysis 61 BPM Standing Heart Rate Post-Dialysis 63 BPM Temperature Pre-Dialysis 97.9 degF Temperature Post -Dialysis 97.2 degF June 14, 2023 In-Center Hemodialysis Treatment [id number]:34:37.000Z 1026-22-55Y28:00:02.000Z BP Sitting (Pre-Dialysis) 139/60 mmHg BP Sitting (Post-Dialysis) 114/65 mmHg Concurrent Access: falseAV Fistula Forearm (Left) Arterial BP Standing (Pre-Dialysis) 133/74 mmHg BP Standing (P ost-Dialysis) 120/69 mmHg Sitting Heart Rate Pre-Dialysis 53 BPM Sitting Heart Rate Post-Dialysis 57 BPM Standing Heart Rate Pre-Dialysis 64 BPM Standing Heart Rate Post-Dialysis 58 BPM Temperature Pre-Dialysis 97.4 degF Temperature Post -Dialysis 97.2 degF June 12, 2023 In-Center Hemodialysis Treatment 1166-10-24M05:28:00.000Z 1131-39-15S49:02:02.000Z BP Sitting (Pre-Dialysis) 117/64 mmHg BP Sitting (Post-Dialysis) 144/63 mmHg Concurrent Access: falseAV Fistula Forearm (Left) Arterial BP Standing (Pre-Dialysis) 132/58 mmHg BP Standing (P ost-Dialysis) 132/68 mmHg Sitting Heart Rate Pre-Dialysis 60 BPM Sitting Heart Rate Post-Dialysis 59 BPM Standing Heart Rate Pre-Dialysis 64 BPM Standing Heart Rate Post-Dialysis 70 BPM Temperature Pre-Dialysis 97.9 degF June 10, 2023 In-Center Hemodialysis Treatment [id number]:24:56.000Z [id number]:00:17.000Z BP Sitting (Pre-Dialysis) 121/69 mmHg BP Sitting (Post-Dialysis) 142/70 mmHg Concurrent Access: falseAV Fistula Forearm (Left) Arterial BP Standing (Pre-Dialysis) 120/68 mmHg BP Standing (P ost-Dialysis) 144/71 mmHg Sitting Heart Rate Pre-Dialysis 55 BPM Sitting Heart Rate Post-Dialysis 62 BPM Standing Heart Rate Pre-Dialysis 57 BPM Standing Heart Rate Post-Dialysis 60 BPM Temperature Pre-Dialysis 97.2 degF Temperature Post -Dialysis 97.5 degF June 07, 2023 In-Center Hemodialysis Treatment 9661-03-01O37:33:32.000Z [id number]:07:21.000Z BP Sitting (Pre-Dialysis) 118/64 mmHg BP Sitting (Post-Dialysis) 142/55 mmHg Concurrent Access: falseAV Fistula Forearm (Left) Arterial BP Standing (Pre-Dialysis) 130/68 mmHg BP Standing (P ost-Dialysis) 151/65 mmHg Sitting Heart Rate Pre-Dialysis 60 BPM Sitting Heart Rate Post-Dialysis 54 BPM Standing Heart Rate Pre-Dialysis 61 BPM Standing Heart Rate Post-Dialysis 56 BPM Temperature Pre-Dialysis 97.9 degF Temperature Post -Dialysis 97.6 degF June 05, 2023 In-Center Hemodialysis Treatment [id number]:25:00.000Z 1543-34-23J57:58:36.000Z BP Sitting (Pre-Dialysis) 141/69 mmHg BP Sitting (Post-Dialysis) 139/74 mmHg Concurrent Access: falseAV Fistula Forearm (Left) Arterial BP Standing (Pre-Dialysis) 132/64 mmHg Sitti ng Heart Rate Post-Dialysis 62 BPM Sitting Heart Rate Pre-Dialysis 87 BPM Temperatu re Post-Dialysis 97.6 degF Standing Heart Rate Pre-Dialysis 87 BPM Temperature Pre-Dialysis 97.2 degF June 03, 2023 In-Center Hemodialysis Treatment [id number]:36:46.000Z 5690-25-60E57:03:01.000Z BP Sitting (Pre-Dialysis) 148/64 mmHg BP Sitting (Post-Dialysis) 130/70 mmHg Concurrent Access: falseAV Fistula Forearm (Left) Arterial BP Standing (Pre-Dialysis) 139/58 mmHg BP Standing (P ost-Dialysis) 142/78 mmHg Sitting Heart Rate Pre-Dialysis 52 BPM Sitting Heart Rate Post-Dialysis 56 BPM Standing Heart Rate Pre-Dialysis 60 BPM Standing Heart Rate Post-Dialysis 60 BPM Temperature Pre-Dialysis 97.6 degF Temperature Post -Dialysis 97.2 degF May 31, 2023 In-Center Hemodialysis Treatment [id number]:30:00.000Z 2752-87-35U68:02:17.000Z BP Sitting (Pre-Dialysis) 101/70 mmHg BP Sitting (Post-Dialysis) 33/70 mmHg Concurrent Access: falseAV Fistula Forearm (Left) Arterial BP Standing (Pre-Dialysis) 121/63 mmHg BP Standing (P ost-Dialysis) 129/72 mmHg Sitting Heart Rate Pre-Dialysis 59 BPM Sitting Heart Rate Post-Dialysis 60 BPM Standing Heart Rate Pre-Dialysis 57 BPM Standing Heart Rate Post-Dialysis 57 BPM Temperature Pre-Dialysis 97.7 degF Temperature Post -Dialysis 97.7 degF May 29, 2023 In-Center Hemodialysis Treatment [id number]:22:00.000Z [id number]:07:13.000Z BP Sitting (Pre-Dialysis) 124/66 mmHg BP Sitting (Post-Dialysis) 161/57 mmHg Concurrent Access: falseAV Fistula Forearm (Left) Arterial BP Standing (Pre-Dialysis) 144/67 mmHg BP Standing (P ost-Dialysis) 124/69 mmHg Sitting Heart Rate Pre-Dialysis 57 BPM Sitting Heart Rate Post-Dialysis 49 BPM Standing Heart Rate Pre-Dialysis 53 BPM Standing Heart Rate Post-Dialysis 57 BPM Temperature Pre-Dialysis 97.2 degF Temperature Post -Dialysis 98 degF May 27, 2023 In-Center Hemodialysis Treatment [id number]:20:00.000Z 8940-60-35G26:58:08.000Z BP Sitting (Pre-Dialysis) 97/54 mmHg BP Sitting (Post-Dialysis) 139/74 mmHg Concurrent Access: falseAV Fistula Forearm (Left) Arterial BP Standing (Pre-Dialysis) 110/58 mmHg BP Standing (P ost-Dialysis) 136/69 mmHg Sitting Heart Rate Pre-Dialysis 67 BPM Sitting Heart Rate Post-Dialysis 58 BPM Standing Heart Rate Pre-Dialysis 69 BPM Standing Heart Rate Post-Dialysis 58 BPM Temperature Pre-Dialysis 97.2 degF Temperature Post -Dialysis 98.2 degF May 24, 2023 In-Center Hemodialysis Treatment 1333-43-28B83:28:18.000Z [id number]:34:18.000Z BP Sitting (Pre-Dialysis) 113/64 mmHg BP Sitting (Post-Dialysis) 126/69 mmHg Concurrent Access: falseAV Fistula Forearm (Left) Arterial BP Standing (Pre-Dialysis) 127/76 mmHg BP Standing (P ost-Dialysis) 125/63 mmHg Sitting Heart Rate Pre-Dialysis 58 BPM Sitting Heart Rate Post-Dialysis 87 BPM Standing Heart Rate Pre-Dialysis 57 BPM Standing Heart Rate Post-Dialysis 87 BPM Temperature Pre-Dialysis 97.2 degF Temperature Post -Dialysis 98.2 degF May 22, 2023 In-Center Hemodialysis Treatment [id number]:24:18.000Z 1891-92-27K95:50:18.000Z BP Sitting (Pre-Dialysis) 115/64 mmHg BP Sitting (Post-Dialysis) 126/67 mmHg Concurrent Access: falseAV Fistula Forearm (Left) Arterial BP Standing (Pre-Dialysis) 110/66 mmHg BP Standing (P ost-Dialysis) 168/63 mmHg Sitting Heart Rate Pre-Dialysis 59 BPM Sitting Heart Rate Post-Dialysis 68 BPM Standing Heart Rate Pre-Dialysis 59 BPM Standing Heart Rate Post-Dialysis 52 BPM Temperature Pre-Dialysis 97.2 degF Temperature Post -Dialysis 97.2 degF May 20, 2023 In-Center Hemodialysis Treatment 4250-07-51A39:28:12.000Z [id number]:47:13.000Z BP Sitting (Pre-Dialysis) 101/67 mmHg BP Sitting (Post-Dialysis) 124/67 mmHg Concurrent Access: falseAV Fistula Forearm (Left) Arterial BP Standing (Pre-Dialysis) 102/62 mmHg Sitti ng Heart Rate Post-Dialysis 68 BPM Sitting Heart Rate Pre-Dialysis 61 BPM Temperatu re Post-Dialysis 97.2 degF Standing Heart Rate Pre-Dialysis 77 BPM Temperature Pre-Dialysis 97.2 degF May 15, 2023 In-Center Hemodialysis Treatment 0340-28-88L67:22:00.000Z 9904-48-71L95:57:07.000Z BP Sitting (Pre-Dialysis) 132/98 mmHg BP Sitting (Post-Dialysis) 113/57 mmHg Concurrent Access: falseAV Fistula Forearm (Left) Arterial BP Standing (Pre-Dialysis) 114/70 mmHg BP Standing (P ost-Dialysis) 116/76 mmHg Sitting Heart Rate Pre-Dialysis 69 BPM Sitting Heart Rate Post-Dialysis 56 BPM Standing Heart Rate Pre-Dialysis 66 BPM Standing Heart Rate Post-Dialysis 68 BPM Temperature Pre-Dialysis 97.4 degF Temperature Post -Dialysis 97.4 degF May 13, 2023 In-Center Hemodialysis Treatment [id number]:45:00.000Z 9717-30-02D20:15:37.000Z BP Sitting (Pre-Dialysis) 117/57 mmHg BP Sitting (Post-Dialysis) 100/70 mmHg Concurrent Access: falseAV Fistula Forearm (Left) Arterial BP Standing (Pre-Dialysis) 121/55 mmHg BP Standing (P ost-Dialysis) 159/73 mmHg Sitting Heart Rate Pre-Dialysis 61 BPM Sitting Heart Rate Post-Dialysis 71 BPM Standing Heart Rate Pre-Dialysis 60 BPM Standing Heart Rate Post-Dialysis 71 BPM Temperature Pre-Dialysis 97.2 degF Temperature Post -Dialysis 97.2 degF May 10, 2023 [facility] Hemodialysis Treatment 5215-77-78X50:01:00.000Z [id number]:34:30.000Z BP Sitting (Pre-Dialysis) 124/70 mmHg BP Sitting (Post-Dialysis) 137/79 mmHg Concurrent Access: falseAV Fistula Forearm (Left) Arterial BP Standing (Pre-Dialysis) 117/71 mmHg BP Standing (P ost-Dialysis) 116/70 mmHg Sitting Heart Rate Pre-Dialysis 70 BPM Sitting Heart Rate Post-Dialysis 70 BPM Standing Heart Rate Pre-Dialysis 82 BPM Standing Heart Rate Post-Dialysis 70 BPM Temperature Pre-Dialysis 98.1 degF Temperature Post -Dialysis 97.5 degF May 08, 2023 In-Center Hemodialysis Treatment [id number]:02:00.000Z 6792-27-39Q04:31:12.000Z BP Sitting (Pre-Dialysis) 126/74 mmHg BP Sitting (Post-Dialysis) 134/70 mmHg Concurrent Access: falseAV Fistula Forearm (Left) Arterial BP Standing (Pre-Dialysis) 156/87 mmHg BP Standing (P ost-Dialysis) 138/68 mmHg Sitting Heart Rate Pre-Dialysis 67 BPM Sitting Heart Rate Post-Dialysis 63 BPM Standing Heart Rate Pre-Dialysis 80 BPM Standing Heart Rate Post-Dialysis 81 BPM Temperature Pre-Dialysis 97.4 degF Temperature Post -Dialysis 97.7 degF May 06, 2023 In-Center Hemodialysis Treatment [id number]:16:30.000Z 8053-36-09E56:46:29.000Z BP Sitting (Pre-Dialysis) 129/67 mmHg BP Sitting (Post-Dialysis) 120/61 mmHg Concurrent Access: falseAV Fistula Forearm (Left) Arterial BP Standing (Pre-Dialysis) 110/67 mmHg BP Standing (P ost-Dialysis) 136/75 mmHg Sitting Heart Rate Pre-Dialysis 62 BPM Sitting Heart Rate Post-Dialysis 61 BPM Standing Heart Rate Pre-Dialysis 52 BPM Standing Heart Rate Post-Dialysis 67 BPM Temperature Pre-Dialysis 97.2 degF Temperature Post -Dialysis 97.9 degF May 03, 2023 In-Center Hemodialysis Treatment 2253-21-02R43:00:00.000Z 5370-99-73N28:29:28.000Z BP Sitting (Pre-Dialysis) 112/57 mmHg BP Sitting (Post-Dialysis) 124/63 mmHg Concurrent Access: falseAV Fistula Forearm (Left) Arterial Sitting Heart Rate Pre-Dialysis 61 BPM BP Standing (Post-Dialysis) 115/63 mmHg Temperature Pre-Dialysis 98.3 degF Sitting Heart Ra te Post-Dialysis 65 BPM Standing Heart Rate Post-Cheri lysis 75 BPM Temperature Post-Dialysis 97 .6 degF May 01, 2023 In-Center Hemodialysis Treatment [id number]:31:36.000Z 7950-35-24W95:02:36.000Z BP Sitting (Pre-Dialysis) 124/71 mmHg BP Sitting (Post-Dialysis) 122/56 mmHg Concurrent Access: falseAV Fistula Forearm (Left) Arterial BP Standing (Pre-Dialysis) 118/65 mmHg BP Standing (P ost-Dialysis) 119/73 mmHg Sitting Heart Rate Pre-Dialysis 69 BPM Sitting Heart Rate Post-Dialysis 61 BPM Standing Heart Rate Pre-Dialysis 64 BPM Standing Heart Rate Post-Dialysis 69 BPM Temperature Pre-Dialysis 97.4 degF Temperature Post -Dialysis 97.4 degF April 29, 2023 In-Center Hemodialysis Treatment 0353-10-17A46:21:00.000Z [id number]:55:28.000Z BP Sitting (Pre-Dialysis) 132/70 mmHg BP Sitting (Post-Dialysis) 122/57 mmHg Concurrent Access: falseAV Fistula Forearm (Left) Arterial BP Standing (Pre-Dialysis) 104/69 mmHg BP Standing (P ost-Dialysis) 113/66 mmHg Sitting Heart Rate Pre-Dialysis 55 BPM Sitting Heart Rate Post-Dialysis 62 BPM Standing Heart Rate Pre-Dialysis 123 BPM Standing Heart Rate Post-Dialysis 68 BPM Temperature Pre-Dialysis 97.4 degF Temperature Post -Dialysis 97.4 degF April 26, 2023 In-Center Hemodialysis Treatment [id number]:05:00.000Z [id number]:37:10.000Z BP Sitting (Pre-Dialysis) 125/65 mmHg BP Sitting (Post-Dialysis) 141/65 mmHg Concurrent Access: falseAV Fistula Forearm (Left) Arterial BP Standing (Pre-Dialysis) 148/60 mmHg BP Standing (P ost-Dialysis) 134/80 mmHg Sitting Heart Rate Pre-Dialysis 59 BPM Sitting Heart Rate Post-Dialysis 58 BPM Standing Heart Rate Pre-Dialysis 76 BPM Standing Heart Rate Post-Dialysis 72 BPM Temperature Pre-Dialysis 97.2 degF Temperature Post -Dialysis 97.7 degF April 24, 2023 In-Center Hemodialysis Treatment [id number]:55:35.000Z [id number]:26:35.000Z BP Sitting (Pre-Dialysis) 116/70 mmHg BP Sitting (Post-Dialysis) 125/76 mmHg Concurrent Access: falseAV Fistula Forearm (Left) Arterial BP Standing (Pre-Dialysis) 107/64 mmHg BP Standing (P ost-Dialysis) 127/73 mmHg Sitting Heart Rate Pre-Dialysis 72 BPM Sitting Heart Rate Post-Dialysis 80 BPM Standing Heart Rate Pre-Dialysis 73 BPM Standing Heart Rate Post-Dialysis 81 BPM Temperature Pre-Dialysis 97.2 degF Temperature Post -Dialysis 97.2 degF April 22, 2023 In-Center Hemodialysis Treatment [id number]:58:00.000Z 8463-50-57F60:23:40.000Z BP Sitting (Pre-Dialysis) 115/63 mmHg BP Sitting (Post-Dialysis) 133/69 mmHg Concurrent Access: falseAV Fistula Forearm (Left) Arterial BP Standing (Pre-Dialysis) 119/62 mmHg BP Standing (P ost-Dialysis) 129/78 mmHg Sitting Heart Rate Pre-Dialysis 62 BPM Sitting Heart Rate Post-Dialysis 58 BPM Standing Heart Rate Pre-Dialysis 72 BPM Standing Heart Rate Post-Dialysis 59 BPM Temperature Pre-Dialysis 97.2 degF Temperature Post -Dialysis 98.2 degF April 19, 2023 In-Center Hemodialysis Treatment 6522-76-17H33:59:00.000Z [id number]:31:28.000Z BP Sitting (Pre-Dialysis) 135/62 mmHg BP Sitting (Post-Dialysis) 120/66 mmHg Concurrent Access: falseAV Fistula Forearm (Left) Arterial BP Standing (Pre-Dialysis) 117/69 mmHg BP Standing (P ost-Dialysis) 129/66 mmHg Sitting Heart Rate Pre-Dialysis 59 BPM Sitting Heart Rate Post-Dialysis 61 BPM Standing Heart Rate Pre-Dialysis 70 BPM Standing Heart Rate Post-Dialysis 64 BPM Temperature Pre-Dialysis 97.2 degF Temperature Post -Dialysis 97.4 degF April 17, 2023 In-Center Hemodialysis Treatment [id number]:59:00.000Z 8012-55-40K72:30:28.000Z BP Sitting (Pre-Dialysis) 133/68 mmHg BP Sitting (Post-Dialysis) 119/65 mmHg Concurrent Access: falseAV Fistula Forearm (Left) Arterial BP Standing (Pre-Dialysis) 138/74 mmHg Sitti ng Heart Rate Post-Dialysis 55 BPM Sitting Heart Rate Pre-Dialysis 51 BPM Temperatu re Post-Dialysis 97.4 degF Standing Heart Rate Pre-Dialysis 56 BPM Temperature Pre-Dialysis 97.9 degF April 15, 2023 In-Center Hemodialysis Treatment 4532-36-30K69:17:11.000Z 0965-28-90H12:46:10.000Z BP Sitting (Pre-Dialysis) 125/70 mmHg BP Sitting (Post-Dialysis) 126/67 mmHg Concurrent Access: falseAV Fistula Forearm (Left) Arterial BP Standing (Pre-Dialysis) 123/76 mmHg BP Standing (P ost-Dialysis) 140/69 mmHg Sitting Heart Rate Pre-Dialysis 76 BPM Sitting Heart Rate Post-Dialysis 70 BPM Standing Heart Rate Pre-Dialysis 59 BPM Standing Heart Rate Post-Dialysis 70 BPM Temperature Pre-Dialysis 97.2 degF Temperature Post -Dialysis 97.2 degF April 12, 2023 In-Center Hemodialysis Treatment 5963-86-96G48:57:00.000Z 2263-73-70W99:24:23.000Z BP Sitting (Pre-Dialysis) 142/56 mmHg BP Sitting (Post-Dialysis) 134/67 mmHg Concurrent Access: falseAV Fistula Forearm (Left) Arterial BP Standing (Pre-Dialysis) 120/62 mmHg BP Standing (P ost-Dialysis) 159/72 mmHg Sitting Heart Rate Pre-Dialysis 88 BPM Sitting Heart Rate Post-Dialysis 55 BPM Standing Heart Rate Pre-Dialysis 71 BPM Standing Heart Rate Post-Dialysis 69 BPM Temperature Pre-Dialysis 97.7 degF Temperature Post -Dialysis 97.2 degF April 10, 2023 In-Center Hemodialysis Treatment [id number]:14:00.000Z 4957-10-19W35:39:00.000Z BP Sitting (Pre-Dialysis) 135/62 mmHg BP Sitting (Post-Dialysis) 122/73 mmHg Concurrent Access: falseAV Fistula Forearm (Left) Arterial BP Standing (Pre-Dialysis) 118/58 mmHg BP Standing (P ost-Dialysis) 144/75 mmHg Sitting Heart Rate Pre-Dialysis 66 BPM Sitting Heart Rate Post-Dialysis 65 BPM Standing Heart Rate Pre-Dialysis 72 BPM Standing Heart Rate Post-Dialysis 73 BPM Temperature Pre-Dialysis 97.6 degF Temperature Post -Dialysis 97.9 degF April 08, 2023 In-Center Hemodialysis Treatment 1307-51-60H20:28:00.000Z 6527-24-64V47:03:20.000Z BP Sitting (Pre-Dialysis) 122/54 mmHg BP Sitting (Post-Dialysis) 109/76 mmHg Concurrent Access: falseAV Fistula Forearm (Left) Arterial BP Standing (Pre-Dialysis) 99/54 mmHg BP Standing (P ost-Dialysis) 135/75 mmHg Sitting Heart Rate Pre-Dialysis 57 BPM Sitting Heart Rate Post-Dialysis 72 BPM Standing Heart Rate Pre-Dialysis 63 BPM Standing Heart Rate Post-Dialysis 76 BPM Temperature Pre-Dialysis 97.9 degF Temperature Post -Dialysis 97.9 degF April 05, 2023 In-Center Hemodialysis Treatment 7512-00-46V33:58:00.000Z 0405-67-29R00:25:25.000Z BP Sitting (Pre-Dialysis) 145/78 mmHg BP Sitting (Post-Dialysis) 126/93 mmHg Concurrent Access: falseAV Fistula Forearm (Left) Arterial BP Standing (Pre-Dialysis) 114/61 mmHg BP Standing (P ost-Dialysis) 137/69 mmHg Sitting Heart Rate Pre-Dialysis 68 BPM Sitting Heart Rate Post-Dialysis 63 BPM Standing Heart Rate Pre-Dialysis 73 BPM Standing Heart Rate Post-Dialysis 76 BPM Temperature Pre-Dialysis 98 degF Temperature Post -Dialysis 97.6 degF April 03, 2023 In-Center Hemodialysis Treatment [id number]:56:13.000Z [id number]:19:14.000Z BP Sitting (Pre-Dialysis) 125/77 mmHg BP Sitting (Post-Dialysis) 116/61 mmHg Concurrent Access: falseAV Fistula Forearm (Left) Arterial BP Standing (Pre-Dialysis) 130/64 mmHg BP Standing (P ost-Dialysis) 135/82 mmHg Sitting Heart Rate Pre-Dialysis 65 BPM Sitting Heart Rate Post-Dialysis 59 BPM Standing Heart Rate Pre-Dialysis 98 BPM Standing Heart Rate Post-Dialysis 67 BPM Temperature Pre-Dialysis 98.2 degF Temperature Post -Dialysis 97.2 degF April 01, 2023 In-Center Hemodialysis Treatment 3552-04-44S93:19:13.000Z 3978-09-21N57:50:14.000Z BP Sitting (Pre-Dialysis) 129/70 mmHg BP Sitting (Post-Dialysis) 122/80 mmHg Concurrent Access: falseAV Fistula Forearm (Left) Arterial BP Standing (Pre-Dialysis) 137/71 mmHg BP Standing (P ost-Dialysis) 128/82 mmHg Sitting Heart Rate Pre-Dialysis 60 BPM Sitting Heart Rate Post-Dialysis 66 BPM Standing Heart Rate Pre-Dialysis 62 BPM Standing Heart Rate Post-Dialysis 82 BPM Temperature Pre-Dialysis 97.2 degF Temperature Post -Dialysis 97.4 degF March 29, 2023 In-Center Hemodialysis Treatment [id number]:55:00.000Z 2879-03-48I17:28:47.000Z BP Sitting (Pre-Dialysis) 111/49 mmHg BP Sitting (Post-Dialysis) 140/72 mmHg Concurrent Access: falseAV Fistula Forearm (Left) Arterial BP Standing (Pre-Dialysis) 121/65 mmHg BP Standing (P ost-Dialysis) 125/72 mmHg Sitting Heart Rate Pre-Dialysis 65 BPM Sitting Heart Rate Post-Dialysis 72 BPM Standing Heart Rate Pre-Dialysis 60 BPM Standing Heart Rate Post-Dialysis 70 BPM Temperature Pre-Dialysis 97.7 degF Temperature Post -Dialysis 97.2 degF March 27, 2023 In-Center Hemodialysis Treatment [id number]:54:00.000Z [id number]:29:47.000Z BP Sitting (Pre-Dialysis) 110/87 mmHg BP Sitting (Post-Dialysis) 132/77 mmHg Concurrent Access: falseAV Fistula Forearm (Left) Arterial BP Standing (Pre-Dialysis) 118/76 mmHg BP Standing (P ost-Dialysis) 143/74 mmHg Sitting Heart Rate Pre-Dialysis 97 BPM Sitting Heart Rate Post-Dialysis 57 BPM Standing Heart Rate Pre-Dialysis 67 BPM Standing Heart Rate Post-Dialysis 69 BPM Temperature Pre-Dialysis 97.7 degF Temperature Post -Dialysis 97.8 degF March 25, 2023 In-Center Hemodialysis Treatment 0575-06-07X25:04:00.000Z [id number]:32:34.000Z BP Sitting (Pre-Dialysis) 133/68 mmHg BP Sitting (Post-Dialysis) 132/61 mmHg Concurrent Access: falseAV Fistula Forearm (Left) Arterial BP Standing (Pre-Dialysis) 107/81 mmHg BP Standing (P ost-Dialysis) 135/76 mmHg Sitting Heart Rate Pre-Dialysis 68 BPM Sitting Heart Rate Post-Dialysis 65 BPM Standing Heart Rate Pre-Dialysis 71 BPM Standing Heart Rate Post-Dialysis 82 BPM Temperature Pre-Dialysis 97.9 degF Temperature Post -Dialysis 97.6 degF March 22, 2023 In-Center Hemodialysis Treatment [id number]:54:00.000Z 7568-47-09V61:29:27.000Z BP Sitting (Pre-Dialysis) 135/81 mmHg BP Sitting (Post-Dialysis) 132/63 mmHg Concurrent Access: falseAV Fistula Forearm (Left) Arterial BP Standing (Pre-Dialysis) 118/64 mmHg BP Standing (P ost-Dialysis) 127/62 mmHg Sitting Heart Rate Pre-Dialysis 58 BPM Sitting Heart Rate Post-Dialysis 80 BPM Standing Heart Rate Pre-Dialysis 63 BPM Standing Heart Rate Post-Dialysis 78 BPM Temperature Pre-Dialysis 97.7 degF Temperature Post -Dialysis 97.2 degF March 20, 2023 In-Center Hemodialysis Treatment [id number]:58:44.000Z [id number]:28:41.000Z BP Sitting (Pre-Dialysis) 122/67 mmHg BP Sitting (Post-Dialysis) 137/72 mmHg Concurrent Access: falseAV Fistula Forearm (Left) Arterial BP Standing (Pre-Dialysis) 113/63 mmHg BP Standing (P ost-Dialysis) 136/98 mmHg Sitting Heart Rate Pre-Dialysis 53 BPM Sitting Heart Rate Post-Dialysis 72 BPM Standing Heart Rate Pre-Dialysis 61 BPM Temperature Post-Dialysis 97.2 degF Temperature Pre-Dialysis 97.2 degF March 18, 2023 In-Center Hemodialysis Treatment [id number]:15:00.000Z 6609-70-58K02:36:46.000Z BP Sitting (Pre-Dialysis) 130/60 mmHg BP Sitting (Post-Dialysis) 153/65 mmHg Concurrent Access: falseAV Fistula Forearm (Left) Arterial BP Standing (Pre-Dialysis) 102/60 mmHg Sitti ng Heart Rate Post-Dialysis 59 BPM Sitting Heart Rate Pre-Dialysis 61 BPM Temperatu re Post-Dialysis 97.2 degF Standing Heart Rate Pre-Dialysis 61 BPM Temperature Pre-Dialysis 97.9 degF March 15, 2023 In-Center Hemodialysis Treatment [id number]:33:00.000Z 6905-92-67T47:02:01.000Z BP Sitting (Pre-Dialysis) 131/68 mmHg BP Sitting (Post-Dialysis) 126/66 mmHg Concurrent Access: falseAV Fistula Forearm (Left) Arterial BP Standing (Pre-Dialysis) 123/61 mmHg BP Standing (P ost-Dialysis) 128/76 mmHg Sitting Heart Rate Pre-Dialysis 62 BPM Sitting Heart Rate Post-Dialysis 55 BPM Standing Heart Rate Pre-Dialysis 63 BPM Standing Heart Rate Post-Dialysis 76 BPM Temperature Pre-Dialysis 97.7 degF Temperature Post -Dialysis 97.9 degF March 13, 2023 In-Center Hemodialysis Treatment [id number]:07:00.000Z [id number]:33:30.000Z BP Sitting (Pre-Dialysis) 116/63 mmHg BP Sitting (Post-Dialysis) 130/78 mmHg Concurrent Access: falseAV Fistula Forearm (Left) Arterial BP Standing (Pre-Dialysis) 103/55 mmHg BP Standing (P ost-Dialysis) 130/67 mmHg Sitting Heart Rate Pre-Dialysis 62 BPM Sitting Heart Rate Post-Dialysis 60 BPM Standing Heart Rate Pre-Dialysis 71 BPM Standing Heart Rate Post-Dialysis 71 BPM Temperature Pre-Dialysis 97.6 degF Temperature Post -Dialysis 97.6 degF March 11, 2023 In-Center Hemodialysis Treatment [id number]:25:00.000Z [id number]:47:02.000Z BP Sitting (Pre-Dialysis) 117/65 mmHg BP Sitting (Post-Dialysis) 141/69 mmHg Concurrent Access: falseAV Fistula Forearm (Left) Arterial BP Standing (Pre-Dialysis) 120/65 mmHg BP Standing (P ost-Dialysis) 139/68 mmHg Sitting Heart Rate Pre-Dialysis 55 BPM Sitting Heart Rate Post-Dialysis 87 BPM Standing Heart Rate Pre-Dialysis 66 BPM Standing Heart Rate Post-Dialysis 82 BPM Temperature Pre-Dialysis 97.5 degF Temperature Post -Dialysis 97.2 degF March 08, 2023 In-Center Hemodialysis Treatment [id number]:18:26.000Z [id number]:38:26.000Z BP Sitting (Pre-Dialysis) 110/83 mmHg BP Sitting (Post-Dialysis) 132/80 mmHg Concurrent Access: falseAV Fistula Forearm (Left) Arterial BP Standing (Pre-Dialysis) 120/65 mmHg BP Standing (P ost-Dialysis) 136/87 mmHg Sitting Heart Rate Pre-Dialysis 81 BPM Sitting Heart Rate Post-Dialysis 76 BPM Standing Heart Rate Pre-Dialysis 72 BPM Standing Heart Rate Post-Dialysis 76 BPM Temperature Pre-Dialysis 97.2 degF Temperature Post -Dialysis 98.2 degF March 06, 2023 In-Center Hemodialysis Treatment [id number]:31:00.000Z [id number]:44:29.000Z BP Sitting (Pre-Dialysis) 133/69 mmHg BP Sitting (Post-Dialysis) 133/69 mmHg Concurrent Access: falseAV Fistula Forearm (Left) Arterial BP Standing (Pre-Dialysis) 134/71 mmHg BP Standing (P ost-Dialysis) 157/71 mmHg Sitting Heart Rate Pre-Dialysis 60 BPM Sitting Heart Rate Post-Dialysis 68 BPM Standing Heart Rate Pre-Dialysis 65 BPM Standing Heart Rate Post-Dialysis 59 BPM Temperature Pre-Dialysis 97.7 degF Temperature Post -Dialysis 98.2 degF March 04, 2023 In-Center Hemodialysis Treatment [id number]:22:15.000Z [id number]:51:15.000Z BP Sitting (Pre-Dialysis) 116/94 mmHg BP Sitting (Post-Dialysis) 118/78 mmHg Concurrent Access: falseAV Fistula Forearm (Left) Arterial BP Standing (Pre-Dialysis) 126/64 mmHg BP Standing (P ost-Dialysis) 142/70 mmHg Sitting Heart Rate Pre-Dialysis 57 BPM Sitting Heart Rate Post-Dialysis 62 BPM Standing Heart Rate Pre-Dialysis 63 BPM Standing Heart Rate Post-Dialysis 69 BPM Temperature Pre-Dialysis 97.2 degF Temperature Post -Dialysis 97.2 degF March 01, 2023 In-Center Hemodialysis Treatment [id number]:49:00.000Z [id number]:21:00.000Z BP Sitting (Pre-Dialysis) 133/63 mmHg BP Sitting (Post-Dialysis) 146/72 mmHg Concurrent Access: falseAV Fistula Forearm (Left) Arterial BP Standing (Pre-Dialysis) 108/56 mmHg BP Standing (P ost-Dialysis) 136/65 mmHg Sitting Heart Rate Pre-Dialysis 60 BPM Sitting Heart Rate Post-Dialysis 63 BPM Standing Heart Rate Pre-Dialysis 69 BPM Standing Heart Rate Post-Dialysis 82 BPM Temperature Pre-Dialysis 97.9 degF Temperature Post -Dialysis 97.6 degF February 27, 2023 In-Center Hemodialysis Treatment [id number]:19:00.000Z [id number]:49:06.000Z BP Sitting (Pre-Dialysis) 148/70 mmHg BP Sitting (Post-Dialysis) 126/69 mmHg Concurrent Access: falseAV Fistula Forearm (Left) Arterial BP Standing (Pre-Dialysis) 129/70 mmHg BP Standing (P ost-Dialysis) 136/58 mmHg Sitting Heart Rate Pre-Dialysis 60 BPM Sitting Heart Rate Post-Dialysis 87 BPM Standing Heart Rate Pre-Dialysis 67 BPM Standing Heart Rate Post-Dialysis 87 BPM Temperature Pre-Dialysis 97.6 degF Temperature Post -Dialysis 97.2 degF February 25, 2023 In-Center Hemodialysis Treatment [id number]:45:00.000Z [id number]:15:00.000Z BP Sitting (Pre-Dialysis) 117/57 mmHg BP Sitting (Post-Dialysis) 134/65 mmHg Concurrent Access: falseAV Fistula Forearm (Left) Arterial BP Standing (Pre-Dialysis) 105/55 mmHg BP Standing (P ost-Dialysis) 136/69 mmHg Sitting Heart Rate Pre-Dialysis 58 BPM Sitting Heart Rate Post-Dialysis 69 BPM Standing Heart Rate Pre-Dialysis 59 BPM Standing Heart Rate Post-Dialysis 69 BPM Temperature Pre-Dialysis 97.2 degF Temperature Post -Dialysis 97.2 degF February 22, 2023 In-Center Hemodialysis Treatment [id number]:44:00.000Z [id number]:16:43.000Z BP Sitting (Pre-Dialysis) 117/61 mmHg BP Sitting (Post-Dialysis) 138/74 mmHg Concurrent Access: falseAV Fistula Forearm (Left) Arterial BP Standing (Pre-Dialysis) 109/63 mmHg BP Standing (P ost-Dialysis) 121/72 mmHg Sitting Heart Rate Pre-Dialysis 66 BPM Sitting Heart Rate Post-Dialysis 71 BPM Standing Heart Rate Pre-Dialysis 66 BPM Standing Heart Rate Post-Dialysis 77 BPM Temperature Pre-Dialysis 97.3 degF Temperature Post -Dialysis 97.7 degF February 20, 2023 In-Center Hemodialysis Treatment [id number]:29:00.000Z [id number]:02:33.000Z BP Sitting (Pre-Dialysis) 111/65 mmHg BP Sitting (Post-Dialysis) 146/61 mmHg Concurrent Access: falseAV Fistula Forearm (Left) Arterial BP Standing (Pre-Dialysis) 109/60 mmHg BP Standing (P ost-Dialysis) 150/65 mmHg Sitting Heart Rate Pre-Dialysis 64 BPM Sitting Heart Rate Post-Dialysis 72 BPM Standing Heart Rate Pre-Dialysis 66 BPM Standing Heart Rate Post-Dialysis 75 BPM Temperature Pre-Dialysis 97.5 degF Temperature Post -Dialysis 97.5 degF February 18, 2023 In-Center Hemodialysis Treatment [id number]:33:00.000Z [id number]:13:12.000Z BP Sitting (Pre-Dialysis) 120/72 mmHg BP Sitting (Post-Dialysis) 139/68 mmHg Concurrent Access: falseAV Fistula Forearm (Left) Arterial BP Standing (Pre-Dialysis) 105/55 mmHg Sitti ng Heart Rate Post-Dialysis 54 BPM Sitting Heart Rate Pre-Dialysis 60 BPM Temperatu re Post-Dialysis 97.2 degF Standing Heart Rate Pre-Dialysis 61 BPM Temperature Pre-Dialysis 97.2 degF February 15, 2023 In-Center Hemodialysis Treatment [id number]:26:00.000Z [id number]:58:20.000Z BP Sitting (Pre-Dialysis) 123/72 mmHg BP Sitting (Post-Dialysis) 139/68 mmHg Concurrent Access: falseAV Fistula Forearm (Left) Arterial BP Standing (Pre-Dialysis) 129/61 mmHg BP Standing (P ost-Dialysis) 135/81 mmHg Sitting Heart Rate Pre-Dialysis 64 BPM Sitting Heart Rate Post-Dialysis 59 BPM Standing Heart Rate Pre-Dialysis 77 BPM Standing Heart Rate Post-Dialysis 75 BPM Temperature Pre-Dialysis 97.9 degF Temperature Post -Dialysis 98.4 degF February 13, 2023 In-Center Hemodialysis Treatment [id number]:24:17.000Z [id number]:54:16.000Z BP Sitting (Pre-Dialysis) 115/65 mmHg BP Sitting (Post-Dialysis) 118/76 mmHg Concurrent Access: falseAV Fistula Forearm (Left) Arterial BP Standing (Pre-Dialysis) 117/67 mmHg BP Standing (P ost-Dialysis) 121/90 mmHg Sitting Heart Rate Pre-Dialysis 72 BPM Sitting Heart Rate Post-Dialysis 78 BPM Standing Heart Rate Pre-Dialysis 70 BPM Standing Heart Rate Post-Dialysis 77 BPM Temperature Pre-Dialysis 97.2 degF Temperature Post -Dialysis 98.2 degF February 11, 2023 In-Center Hemodialysis Treatment [id number]:45:00.000Z [id number]:16:00.000Z BP Sitting (Pre-Dialysis) 153/76 mmHg BP Sitting (Post-Dialysis) 141/64 mmHg Concurrent Access: falseAV Fistula Forearm (Left) Arterial BP Standing (Pre-Dialysis) 123/63 mmHg BP Standing (P ost-Dialysis) 135/71 mmHg Sitting Heart Rate Pre-Dialysis 65 BPM Sitting Heart Rate Post-Dialysis 63 BPM Standing Heart Rate Pre-Dialysis 62 BPM Standing Heart Rate Post-Dialysis 71 BPM Temperature Pre-Dialysis 98.7 degF Temperature Post -Dialysis 97.8 degF February 08, 2023 In-Center Hemodialysis Treatment [id number]:28:00.000Z [id number]:02:51.000Z BP Sitting (Pre-Dialysis) 125/67 mmHg BP Sitting (Post-Dialysis) 106/66 mmHg Concurrent Access: falseAV Fistula Forearm (Left) Arterial BP Standing (Pre-Dialysis) 131/59 mmHg BP Standing (P ost-Dialysis) 129/66 mmHg Sitting Heart Rate Pre-Dialysis 70 BPM Sitting Heart Rate Post-Dialysis 73 BPM Standing Heart Rate Pre-Dialysis 85 BPM Standing Heart Rate Post-Dialysis 78 BPM Temperature Pre-Dialysis 97.8 degF Temperature Post -Dialysis 97.5 degF February 06, 2023 In-Center Hemodialysis Treatment [id number]:08:00.000Z [id number]:41:26.000Z BP Sitting (Pre-Dialysis) 117/62 mmHg BP Sitting (Post-Dialysis) 123/69 mmHg Concurrent Access: falseAV Fistula Forearm (Left) Arterial BP Standing (Pre-Dialysis) 109/53 mmHg BP Standing (P ost-Dialysis) 136/87 mmHg Sitting Heart Rate Pre-Dialysis 74 BPM Sitting Heart Rate Post-Dialysis 87 BPM Standing Heart Rate Pre-Dialysis 91 BPM Standing Heart Rate Post-Dialysis 87 BPM Temperature Pre-Dialysis 97.6 degF Temperature Post -Dialysis 97.2 degF February 04, 2023 In-Center Hemodialysis Treatment [id number]:13:00.000Z [id number]:31:02.000Z BP Sitting (Pre-Dialysis) 118/68 mmHg BP Sitting (Post-Dialysis) 134/74 mmHg Concurrent Access: falseAV Fistula Forearm (Left) Arterial BP Standing (Pre-Dialysis) 135/73 mmHg BP Standing (P ost-Dialysis) 115/70 mmHg Sitting Heart Rate Pre-Dialysis 70 BPM Sitting Heart Rate Post-Dialysis 74 BPM Standing Heart Rate Pre-Dialysis 72 BPM Standing Heart Rate Post-Dialysis 69 BPM Temperature Pre-Dialysis 97.2 degF Temperature Post -Dialysis 97.2 degF February 01, 2023 In-Center Hemodialysis Treatment [id number]:18:00.000Z [id number]:50:35.000Z BP Sitting (Pre-Dialysis) 119/66 mmHg BP Sitting (Post-Dialysis) 107/60 mmHg Concurrent Access: falseAV Fistula Forearm (Left) Arterial BP Standing (Pre-Dialysis) 101/62 mmHg Sitti ng Heart Rate Post-Dialysis 72 BPM Sitting Heart Rate Pre-Dialysis 73 BPM Temperatu re Post-Dialysis 98.1 degF Standing Heart Rate Pre-Dialysis 80 BPM Temperature Pre-Dialysis 98 degF January 30, 2023 In-Center Hemodialysis Treatment 8839-56-07H69:20:00.000Z [id number]:44:37.000Z BP Sitting (Pre-Dialysis) 120/67 mmHg BP Sitting (Post-Dialysis) 141/58 mmHg Concurrent Access: falseAV Fistula Forearm (Left) Arterial BP Standing (Pre-Dialysis) 128/68 mmHg BP Standing (P ost-Dialysis) 137/74 mmHg Sitting Heart Rate Pre-Dialysis 87 BPM Sitting Heart Rate Post-Dialysis 70 BPM Standing Heart Rate Pre-Dialysis 71 BPM Standing Heart Rate Post-Dialysis 70 BPM Temperature Pre-Dialysis 97.2 degF Temperature Post -Dialysis 97.2 degF January 28, 2023 In-Center Hemodialysis Treatment [id number]:33:00.000Z [id number]:02:04.000Z BP Sitting (Pre-Dialysis) 139/62 mmHg BP Sitting (Post-Dialysis) 109/72 mmHg Concurrent Access: falseAV Fistula Forearm (Left) Arterial BP Standing (Pre-Dialysis) 126/66 mmHg BP Standing (P ost-Dialysis) 110/71 mmHg Sitting Heart Rate Pre-Dialysis 67 BPM Sitting Heart Rate Post-Dialysis 82 BPM Standing Heart Rate Pre-Dialysis 66 BPM Standing Heart Rate Post-Dialysis 79 BPM Temperature Pre-Dialysis 97.7 degF Temperature Post -Dialysis 97.2 degF January 25, 2023 In-Center Hemodialysis Treatment [id number]:10:00.000Z [id number]:45:18.000Z BP Sitting (Pre-Dialysis) 119/63 mmHg BP Sitting (Post-Dialysis) 128/65 mmHg Concurrent Access: falseAV Fistula Forearm (Left) Arterial BP Standing (Pre-Dialysis) 117/70 mmHg BP Standing (P ost-Dialysis) 138/67 mmHg Sitting Heart Rate Pre-Dialysis 70 BPM Sitting Heart Rate Post-Dialysis 78 BPM Standing Heart Rate Pre-Dialysis 74 BPM Standing Heart Rate Post-Dialysis 59 BPM Temperature Pre-Dialysis 97.5 degF Temperature Post -Dialysis 97.2 degF January 23, 2023 In-Center Hemodialysis Treatment [id number]:14:58.000Z [id number]:46:13.000Z BP Sitting (Pre-Dialysis) 117/53 mmHg BP Sitting (Post-Dialysis) 128/62 mmHg Concurrent Access: falseAV Fistula Forearm (Left) Arterial BP Standing (Pre-Dialysis) 120/64 mmHg BP Standing (P ost-Dialysis) 125/75 mmHg Sitting Heart Rate Pre-Dialysis 64 BPM Sitting Heart Rate Post-Dialysis 58 BPM Standing Heart Rate Pre-Dialysis 64 BPM Standing Heart Rate Post-Dialysis 71 BPM Temperature Pre-Dialysis 98.2 degF Temperature Post -Dialysis 97.2 degF January 21, 2023 In-Center Hemodialysis Treatment [id number]:15:00.000Z [id number]:46:48.000Z BP Sitting (Pre-Dialysis) 108/65 mmHg BP Sitting (Post-Dialysis) 114/74 mmHg Concurrent Access: falseAV Fistula Forearm (Left) Arterial BP Standing (Pre-Dialysis) 117/64 mmHg BP Standing (P ost-Dialysis) 138/72 mmHg Sitting Heart Rate Pre-Dialysis 60 BPM Sitting Heart Rate Post-Dialysis 60 BPM Standing Heart Rate Pre-Dialysis 62 BPM Standing Heart Rate Post-Dialysis 60 BPM Temperature Pre-Dialysis 97.2 degF Temperature Post -Dialysis 97.2 degF January 18, 2023 In-Center Hemodialysis Treatment [id number]:18:00.000Z [id number]:45:11.000Z BP Sitting (Pre-Dialysis) 116/72 mmHg BP Sitting (Post-Dialysis) 122/66 mmHg Concurrent Access: falseAV Fistula Forearm (Left) Arterial BP Standing (Pre-Dialysis) 112/73 mmHg BP Standing (P ost-Dialysis) 125/69 mmHg Sitting Heart Rate Pre-Dialysis 65 BPM Sitting Heart Rate Post-Dialysis 69 BPM Standing Heart Rate Pre-Dialysis 67 BPM Standing Heart Rate Post-Dialysis 75 BPM Temperature Pre-Dialysis 96.2 degF Temperature Post -Dialysis 97.2 degF January 16, 2023 In-Center Hemodialysis Treatment [id number]:14:00.000Z [id number]:48:49.000Z BP Sitting (Pre-Dialysis) 124/62 mmHg BP Sitting (Post-Dialysis) 134/67 mmHg Concurrent Access: falseAV Fistula Forearm (Left) Arterial BP Standing (Pre-Dialysis) 122/66 mmHg BP Standing (P ost-Dialysis) 139/70 mmHg Sitting Heart Rate Pre-Dialysis 65 BPM Sitting Heart Rate Post-Dialysis 68 BPM Standing Heart Rate Pre-Dialysis 70 BPM Standing Heart Rate Post-Dialysis 69 BPM Temperature Pre-Dialysis 97.5 degF Temperature Post -Dialysis 97.2 degF January 14, 2023 In-Center Hemodialysis Treatment [id number]:20:00.000Z 9088-24-14M95:53:56.000Z BP Sitting (Pre-Dialysis) 118/85 mmHg BP Sitting (Post-Dialysis) 125/57 mmHg Concurrent Access: falseAV Fistula Forearm (Left) Arterial BP Standing (Pre-Dialysis) 120/82 mmHg BP Standing (P ost-Dialysis) 147/70 mmHg Sitting Heart Rate Pre-Dialysis 60 BPM Sitting Heart Rate Post-Dialysis 53 BPM Standing Heart Rate Pre-Dialysis 62 BPM Standing Heart Rate Post-Dialysis 62 BPM Temperature Pre-Dialysis 97.2 degF Temperature Post -Dialysis 97.2 degF January 11, 2023 In-Center Hemodialysis Treatment [id number]:06:00.000Z [id number]:43:03.000Z BP Sitting (Pre-Dialysis) 127/64 mmHg BP Sitting (Post-Dialysis) 136/70 mmHg Concurrent Access: falseAV Fistula Forearm (Left) Arterial BP Standing (Pre-Dialysis) 121/61 mmHg BP Standing (P ost-Dialysis) 126/75 mmHg Sitting Heart Rate Pre-Dialysis 65 BPM Sitting Heart Rate Post-Dialysis 64 BPM Standing Heart Rate Pre-Dialysis 71 BPM Standing Heart Rate Post-Dialysis 77 BPM Temperature Pre-Dialysis 97.2 degF Temperature Post -Dialysis 97.2 degF January 09, 2023 In-Center Hemodialysis Treatment [id number]:03:00.000Z 5478-00-37Z55:00:00.000Z BP Sitting (Pre-Dialysis) 136/76 mmHg BP Sitting (Post-Dialysis) 118/54 mmHg Concurrent Access: falseAV Fistula Forearm (Left) Arterial BP Standing (Pre-Dialysis) 111/56 mmHg Sitti ng Heart Rate Post-Dialysis 62 BPM Sitting Heart Rate Pre-Dialysis 69 BPM Temperatu re Post-Dialysis 97.2 degF Standing Heart Rate Pre-Dialysis 69 BPM Temperature Pre-Dialysis 97.2 degF January 07, 2023 In-Center Hemodialysis Treatment 9817-56-25I97:15:00.000Z 2792-18-73Z37:48:16.000Z BP Sitting (Pre-Dialysis) 128/88 mmHg BP Sitting (Post-Dialysis) 142/65 mmHg Concurrent Access: falseAV Fistula Forearm (Left) Arterial BP Standing (Pre-Dialysis) 135/79 mmHg BP Standing (P ost-Dialysis) 140/69 mmHg Sitting Heart Rate Pre-Dialysis 68 BPM Sitting Heart Rate Post-Dialysis 61 BPM Standing Heart Rate Pre-Dialysis 78 BPM Standing Heart Rate Post-Dialysis 64 BPM Temperature Pre-Dialysis 97.9 degF Temperature Post -Dialysis 97.2 degF January 04, 2023 In-Center Hemodialysis Treatment [id number]:20:00.000Z [id number]:50:50.000Z BP Sitting (Pre-Dialysis) 130/68 mmHg BP Sitting (Post-Dialysis) 138/67 mmHg Concurrent Access: falseAV Fistula Forearm (Left) Arterial BP Standing (Pre-Dialysis) 121/62 mmHg BP Standing (P ost-Dialysis) 131/76 mmHg Sitting Heart Rate Pre-Dialysis 69 BPM Sitting Heart Rate Post-Dialysis 60 BPM Standing Heart Rate Pre-Dialysis 68 BPM Standing Heart Rate Post-Dialysis 70 BPM Temperature Pre-Dialysis 97.2 degF Temperature Post -Dialysis 97.2 degF January 02, 2023 In-Center Hemodialysis Treatment [id number]:52:00.000Z 8610-82-34P00:31:28.000Z BP Sitting (Pre-Dialysis) 133/69 mmHg BP Sitting (Post-Dialysis) 134/58 mmHg Concurrent Access: falseAV Fistula Forearm (Left) Arterial BP Standing (Pre-Dialysis) 133/71 mmHg BP Standing (P ost-Dialysis) 125/69 mmHg Sitting Heart Rate Pre-Dialysis 66 BPM Sitting Heart Rate Post-Dialysis 66 BPM Standing Heart Rate Pre-Dialysis 60 BPM Standing Heart Rate Post-Dialysis 69 BPM Temperature Pre-Dialysis 97.3 degF Temperature Post -Dialysis 97.4 degF December 31, 2022 In-Center Hemodialysis Treatment [id number]:11:35.000Z [id number]:36:35.000Z BP Sitting (Pre-Dialysis) 109/62 mmHg BP Sitting (Post-Dialysis) 109/61 mmHg Concurrent Access: falseAV Fistula Forearm (Left) Arterial BP Standing (Pre-Dialysis) 114/60 mmHg BP Standing (P ost-Dialysis) 139/60 mmHg Sitting Heart Rate Pre-Dialysis 61 BPM Sitting Heart Rate Post-Dialysis 86 BPM Standing Heart Rate Pre-Dialysis 61 BPM Standing Heart Rate Post-Dialysis 70 BPM Temperature Pre-Dialysis 97.2 degF Temperature Post -Dialysis 97.2 degF December 28, 2022 In-Center Hemodialysis Treatment [id number]:02:00.000Z [id number]:40:22.000Z BP Sitting (Pre-Dialysis) 122/64 mmHg BP Sitting (Post-Dialysis) 125/62 mmHg Concurrent Access: falseAV Fistula Forearm (Left) Arterial BP Standing (Pre-Dialysis) 114/73 mmHg BP Standing (P ost-Dialysis) 133/77 mmHg Sitting Heart Rate Pre-Dialysis 62 BPM Sitting Heart Rate Post-Dialysis 54 BPM Standing Heart Rate Pre-Dialysis 73 BPM Standing Heart Rate Post-Dialysis 55 BPM Temperature Pre-Dialysis 97.4 degF Temperature Post -Dialysis 97.2 degF December 26, 2022 In-Center Hemodialysis Treatment [id number]:59:00.000Z 9962-32-30K75:35:37.000Z BP Sitting (Pre-Dialysis) 124/70 mmHg BP Sitting (Post-Dialysis) 155/78 mmHg Concurrent Access: falseAV Fistula Forearm (Left) Arterial BP Standing (Pre-Dialysis) 124/66 mmHg BP Standing (P ost-Dialysis) 119/67 mmHg Sitting Heart Rate Pre-Dialysis 66 BPM Sitting Heart Rate Post-Dialysis 79 BPM Standing Heart Rate Pre-Dialysis 67 BPM Standing Heart Rate Post-Dialysis 75 BPM Temperature Pre-Dialysis 97.7 degF Temperature Post -Dialysis 97.2 degF December 24, 2022 In-Center Hemodialysis Treatment [id number]:10:48.000Z [id number]:37:53.000Z BP Sitting (Pre-Dialysis) 127/62 mmHg BP Sitting (Post-Dialysis) 138/71 mmHg Concurrent Access: falseAV Fistula Forearm (Left) Arterial BP Standing (Pre-Dialysis) 129/66 mmHg BP Standing (P ost-Dialysis) 141/71 mmHg Sitting Heart Rate Pre-Dialysis 62 BPM Sitting Heart Rate Post-Dialysis 58 BPM Standing Heart Rate Pre-Dialysis 63 BPM Standing Heart Rate Post-Dialysis 71 BPM Temperature Pre-Dialysis 97.2 degF Temperature Post -Dialysis 97.2 degF December 21, 2022 In-Center Hemodialysis Treatment [id number]:56:00.000Z 7831-36-36E10:30:36.000Z BP Sitting (Pre-Dialysis) 143/71 mmHg BP Sitting (Post-Dialysis) 142/69 mmHg Concurrent Access: falseAV Fistula Forearm (Left) Arterial BP Standing (Pre-Dialysis) 148/75 mmHg BP Standing (P ost-Dialysis) 134/72 mmHg Sitting Heart Rate Pre-Dialysis 64 BPM Sitting Heart Rate Post-Dialysis 61 BPM Standing Heart Rate Pre-Dialysis 70 BPM Standing Heart Rate Post-Dialysis 69 BPM Temperature Pre-Dialysis 97.7 degF Temperature Post -Dialysis 97.2 degF December 19, 2022 In-Center Hemodialysis Treatment 1904-05-58T65:00:00.000Z 4023-73-40R38:36:02.000Z BP Sitting (Pre-Dialysis) 152/90 mmHg BP Sitting (Post-Dialysis) 128/63 mmHg Concurrent Access: falseAV Fistula Forearm (Left) Arterial BP Standing (Pre-Dialysis) 125/64 mmHg BP Standing (P ost-Dialysis) 128/66 mmHg Sitting Heart Rate Pre-Dialysis 70 BPM Sitting Heart Rate Post-Dialysis 65 BPM Standing Heart Rate Pre-Dialysis 77 BPM Standing Heart Rate Post-Dialysis 67 BPM Temperature Pre-Dialysis 97.2 degF Temperature Post -Dialysis 97 degF December 17, 2022 In-Center Hemodialysis Treatment [id number]:56:00.000Z [id number]:22:45.000Z BP Sitting (Pre-Dialysis) 129/71 mmHg BP Sitting (Post-Dialysis) 134/62 mmHg Concurrent Access: falseAV Fistula Forearm (Left) Arterial BP Standing (Pre-Dialysis) 107/53 mmHg BP Standing (P ost-Dialysis) 128/68 mmHg Sitting Heart Rate Pre-Dialysis 70 BPM Sitting Heart Rate Post-Dialysis 62 BPM Standing Heart Rate Pre-Dialysis 70 BPM Standing Heart Rate Post-Dialysis 66 BPM Temperature Pre-Dialysis 97.7 degF December 14, 2022 In-Center Hemodialysis Treatment [id number]:11:00.000Z [id number]:47:50.000Z BP Sitting (Pre-Dialysis) 125/63 mmHg BP Sitting (Post-Dialysis) 121/62 mmHg Concurrent Access: falseAV Fistula Forearm (Left) Arterial BP Standing (Pre-Dialysis) 130/62 mmHg Sitting Heart Rate Post-Dialysis 57 BPM Sitting Heart Rate Pre-Dialysis 63 BPM Temperatu re Post-Dialysis 98 degF Standing Heart Rate Pre-Dialysis 66 BPM Temperature Pre-Dialysis 97 degF December 12, 2022 In-Center Hemodialysis Treatment [id number]:14:00.000Z 8556-63-84V48:50:20.000Z BP Sitting (Pre-Dialysis) 129/63 mmHg BP Sitting (Post-Dialysis) 110/62 mmHg Concurrent Access: falseAV Fistula Forearm (Left) Arterial BP Standing (Pre-Dialysis) 113/58 mmHg BP Standing (P ost-Dialysis) 129/66 mmHg Sitting Heart Rate Pre-Dialysis 61 BPM Sitting Heart Rate Post-Dialysis 65 BPM Standing Heart Rate Pre-Dialysis 66 BPM Standing Heart Rate Post-Dialysis 70 BPM Temperature Pre-Dialysis 97.7 degF Temperature Post -Dialysis 97.2 degF December 10, 2022 In-Center Hemodialysis Treatment [id number]:21:00.000Z 6089-18-29F05:30:00.000Z BP Sitting (Pre-Dialysis) 107/62 mmHg BP Sitting (Post-Dialysis) 129/68 mmHg Concurrent Access: falseAV Fistula Forearm (Left) Arterial BP Standing (Pre-Dialysis) 124/61 mmHg BP Standing (P ost-Dialysis) 124/65 mmHg Sitting Heart Rate Pre-Dialysis 61 BPM Sitting Heart Rate Post-Dialysis 87 BPM Standing Heart Rate Pre-Dialysis 62 BPM Standing Heart Rate Post-Dialysis 87 BPM Temperature Pre-Dialysis 98 degF Temperature Post -Dialysis 97.2 degF December 07, 2022 In-Center Hemodialysis Treatment [id number]:00:00.000Z 0297-55-12I39:32:22.000Z BP Sitting (Pre-Dialysis) 120/63 mmHg BP Sitting (Post-Dialysis) 139/65 mmHg Concurrent Access: falseAV Fistula Forearm (Left) Arterial BP Standing (Pre-Dialysis) 123/68 mmHg BP Standing (P ost-Dialysis) 140/83 mmHg Sitting Heart Rate Pre-Dialysis 66 BPM Sitting Heart Rate Post-Dialysis 64 BPM Standing Heart Rate Pre-Dialysis 65 BPM Standing Heart Rate Post-Dialysis 91 BPM Temperature Pre-Dialysis 97.2 degF Temperature Post -Dialysis 97.2 degF December 05, 2022 In-Center Hemodialysis Treatment [id number]:58:00.000Z 6019-72-82Q79:30:55.000Z BP Sitting (Pre-Dialysis) 118/83 mmHg BP Sitting (Post-Dialysis) 144/67 mmHg Concurrent Access: falseAV Fistula Forearm (Left) Arterial BP Standing (Pre-Dialysis) 140/96 mmHg BP Standing (P ost-Dialysis) 133/79 mmHg Sitting Heart Rate Pre-Dialysis 65 BPM Sitting Heart Rate Post-Dialysis 88 BPM Standing Heart Rate Pre-Dialysis 65 BPM Standing Heart Rate Post-Dialysis 85 BPM Temperature Pre-Dialysis 97.2 degF Temperature Post -Dialysis 97.2 degF December 03, 2022 In-Center Hemodialysis Treatment [id number]:10:00.000Z [id number]:41:03.000Z BP Sitting (Pre-Dialysis) 130/70 mmHg BP Sitting (Post-Dialysis) 137/55 mmHg Concurrent Access: falseAV Fistula Forearm (Left) Arterial BP Standing (Pre-Dialysis) 128/64 mmHg BP Standing (P ost-Dialysis) 143/65 mmHg Sitting Heart Rate Pre-Dialysis 66 BPM Sitting Heart Rate Post-Dialysis 60 BPM Standing Heart Rate Pre-Dialysis 67 BPM Standing Heart Rate Post-Dialysis 61 BPM Temperature Pre-Dialysis 97.2 degF Temperature Post -Dialysis 97.2 degF November 30, 2022 In-Center Hemodialysis Treatment [id number]:16:58.000Z [id number]:43:20.000Z BP Sitting (Pre-Dialysis) 127/72 mmHg BP Sitting (Post-Dialysis) 145/67 mmHg Concurrent Access: falseAV Fistula Forearm (Left) Arterial BP Standing (Pre-Dialysis) 126/76 mmHg BP Standing (P ost-Dialysis) 131/68 mmHg Sitting Heart Rate Pre-Dialysis 70 BPM Sitting Heart Rate Post-Dialysis 64 BPM Standing Heart Rate Pre-Dialysis 68 BPM Standing Heart Rate Post-Dialysis 70 BPM Temperature Pre-Dialysis 97.9 degF Temperature Post -Dialysis 97.2 degF November 28, 2022 In-Center Hemodialysis Treatment [id number]:21:30.000Z [id number]:49:50.000Z BP Sitting (Pre-Dialysis) 135/70 mmHg BP Sitting (Post-Dialysis) 144/74 mmHg Concurrent Access: falseAV Fistula Forearm (Left) Arterial BP Standing (Pre-Dialysis) 119/67 mmHg BP Standing (P ost-Dialysis) 152/76 mmHg Sitting Heart Rate Pre-Dialysis 69 BPM Sitting Heart Rate Post-Dialysis 74 BPM Standing Heart Rate Pre-Dialysis 69 BPM Standing Heart Rate Post-Dialysis 74 BPM Temperature Pre-Dialysis 97.2 degF Temperature Post -Dialysis 98 degF November 26, 2022 In-Center Hemodialysis Treatment [id number]:07:00.000Z [id number]:48.000Z BP Sitting (Pre-Dialysis) 126/68 mmHg BP Sitting (Post-Dialysis) 140/65 mmHg Concurrent Access: falseAV Fistula Forearm (Left) Arterial BP Standing (Pre-Dialysis) 143/79 mmHg BP Standing (P ost-Dialysis) 146/69 mmHg Sitting Heart Rate Pre-Dialysis 62 BPM Sitting Heart Rate Post-Dialysis 69 BPM Standing Heart Rate Pre-Dialysis 66 BPM Standing Heart Rate Post-Dialysis 69 BPM Temperature Pre-Dialysis 97.2 degF Temperature Post -Dialysis 97.2 degF November 23, 2022 In-Center Hemodialysis Treatment [id number]:08.000Z [id number]:01:38.000Z BP Sitting (Pre-Dialysis) 121/57 mmHg BP Sitting (Post-Dialysis) 120/78 mmHg Concurrent Access: falseAV Fistula Forearm (Left) Arterial BP Standing (Pre-Dialysis) 131/68 mmHg BP Standing (P ost-Dialysis) 142/66 mmHg Sitting Heart Rate Pre-Dialysis 62 BPM Sitting Heart Rate Post-Dialysis 95 BPM Standing Heart Rate Pre-Dialysis 61 BPM Standing Heart Rate Post-Dialysis 63 BPM Temperature Pre-Dialysis 97.2 degF Temperature Post -Dialysis 97.2 degF November 19, 2022 In-Center Hemodialysis Treatment [id number]:14:00.000Z [id number]:31:54.000Z BP Sitting (Pre-Dialysis) 136/69 mmHg BP Sitting (Post-Dialysis) 147/70 mmHg Concurrent Access: falseAV Fistula Forearm (Left) Arterial BP Standing (Pre-Dialysis) 132/73 mmHg BP Standing (P ost-Dialysis) 147/74 mmHg Sitting Heart Rate Pre-Dialysis 58 BPM Sitting Heart Rate Post-Dialysis 59 BPM Standing Heart Rate Pre-Dialysis 68 BPM Standing Heart Rate Post-Dialysis 67 BPM Temperature Pre-Dialysis 97.7 degF Temperature Post -Dialysis 97.2 degF November 16, 2022 In-Center Hemodialysis Treatment [id number]:13:00.000Z [id number]:46:50.000Z BP Sitting (Pre-Dialysis) 132/66 mmHg BP Sitting (Post-Dialysis) 129/88 mmHg Concurrent Access: falseAV Fistula Forearm (Left) Arterial BP Standing (Pre-Dialysis) 110/65 mmHg BP Standing (P ost-Dialysis) 132/70 mmHg Sitting Heart Rate Pre-Dialysis 67 BPM Sitting Heart Rate Post-Dialysis 68 BPM Standing Heart Rate Pre-Dialysis 67 BPM Standing Heart Rate Post-Dialysis 70 BPM Temperature Pre-Dialysis 97.7 degF Temperature Post -Dialysis 97.2 degF November 14, 2022 In-Center Hemodialysis Treatment [id number]:40:00.000Z [id number]:15:30.000Z BP Sitting (Pre-Dialysis) 113/61 mmHg BP Sitting (Post-Dialysis) 162/68 mmHg Concurrent Access: falseAV Fistula Forearm (Left) Arterial BP Standing (Pre-Dialysis) 125/76 mmHg BP Standing (P ost-Dialysis) 131/81 mmHg Sitting Heart Rate Pre-Dialysis 64 BPM Sitting Heart Rate Post-Dialysis 56 BPM Standing Heart Rate Pre-Dialysis 72 BPM Standing Heart Rate Post-Dialysis 74 BPM Temperature Pre-Dialysis 97.9 degF Temperature Post -Dialysis 97.7 degF November 12, 2022 In-Center Hemodialysis Treatment [id number]:25:00.000Z [id number]:55:09.000Z BP Sitting (Pre-Dialysis) 119/62 mmHg BP Sitting (Post-Dialysis) 149/79 mmHg Concurrent Access: falseAV Fistula Forearm (Left) Arterial BP Standing (Pre-Dialysis) 113/70 mmHg BP Standing (P ost-Dialysis) 135/74 mmHg Sitting Heart Rate Pre-Dialysis 56 BPM Sitting Heart Rate Post-Dialysis 60 BPM Standing Heart Rate Pre-Dialysis 62 BPM Standing Heart Rate Post-Dialysis 67 BPM Temperature Pre-Dialysis 97.2 degF Temperature Post -Dialysis 97.2 degF November 09, 2022 In-Center Hemodialysis Treatment [id number]:24:38.000Z [id number]:57:08.000Z BP Sitting (Pre-Dialysis) 145/82 mmHg BP Sitting (Post-Dialysis) 140/76 mmHg Concurrent Access: falseAV Fistula Forearm (Left) Arterial BP Standing (Pre-Dialysis) 138/80 mmHg BP Standing (P ost-Dialysis) 142/75 mmHg Sitting Heart Rate Pre-Dialysis 65 BPM Sitting Heart Rate Post-Dialysis 60 BPM Standing Heart Rate Pre-Dialysis 66 BPM Standing Heart Rate Post-Dialysis 62 BPM Temperature Pre-Dialysis 96.3 degF Temperature Post -Dialysis 97.7 degF November 07, 2022 In-Center Hemodialysis Treatment [id number]:10:00.000Z [id number]:28:37.000Z BP Sitting (Pre-Dialysis) 118/72 mmHg BP Sitting (Post-Dialysis) 147/79 mmHg Concurrent Access: falseAV Fistula Forearm (Left) Arterial BP Standing (Pre-Dialysis) 115/69 mmHg BP Standing (P ost-Dialysis) 140/69 mmHg Sitting Heart Rate Pre-Dialysis 70 BPM Sitting Heart Rate Post-Dialysis 69 BPM Standing Heart Rate Pre-Dialysis 69 BPM Standing Heart Rate Post-Dialysis 63 BPM Temperature Pre-Dialysis 97.2 degF Temperature Post -Dialysis 97.2 degF November 05, 2022 In-Center Hemodialysis Treatment [id number]:09:00.000Z [id number]:43:18.000Z BP Sitting (Pre-Dialysis) 119/66 mmHg BP Sitting (Post-Dialysis) 150/68 mmHg Concurrent Access: falseAV Fistula Forearm (Left) Arterial BP Standing (Pre-Dialysis) 131/66 mmHg BP Standing (P ost-Dialysis) 141/77 mmHg Sitting Heart Rate Pre-Dialysis 63 BPM Sitting Heart Rate Post-Dialysis 54 BPM Standing Heart Rate Pre-Dialysis 59 BPM Standing Heart Rate Post-Dialysis 70 BPM Temperature Pre-Dialysis 97.7 degF Temperature Post -Dialysis 97.2 degF November 02, 2022 In-Center Hemodialysis Treatment [id number]:25:00.000Z [id number]:07:22.000Z BP Sitting (Pre-Dialysis) 95/46 mmHg BP Sitting (Post-Dialysis) 142/65 mmHg Concurrent Access: falseAV Fistula Forearm (Left) Arterial BP Standing (Pre-Dialysis) 132/65 mmHg BP Standing (P ost-Dialysis) 135/62 mmHg Sitting Heart Rate Pre-Dialysis 62 BPM Sitting Heart Rate Post-Dialysis 66 BPM Standing Heart Rate Pre-Dialysis 77 BPM Standing Heart Rate Post-Dialysis 66 BPM Temperature Pre-Dialysis 97.2 degF Temperature Post -Dialysis 97.2 degF October 31, 2022 In-Center Hemodialysis Treatment [id number]:23:28.000Z [id number]:54:18.000Z BP Sitting (Pre-Dialysis) 135/65 mmHg BP Sitting (Post-Dialysis) 138/65 mmHg Concurrent Access: falseAV Fistula Forearm (Left) Arterial BP Standing (Pre-Dialysis) 131/68 mmHg BP Standing (P ost-Dialysis) 134/72 mmHg Sitting Heart Rate Pre-Dialysis 69 BPM Sitting Heart Rate Post-Dialysis 58 BPM Standing Heart Rate Pre-Dialysis 66 BPM Standing Heart Rate Post-Dialysis 69 BPM Temperature Pre-Dialysis 97.2 degF Temperature Post -Dialysis 97.2 degF October 29, 2022 In-Center Hemodialysis Treatment [id number]:19:00.000Z [id number]:56:17.000Z BP Sitting (Pre-Dialysis) 115/70 mmHg BP Sitting (Post-Dialysis) 134/73 mmHg Concurrent Access: falseAV Fistula Forearm (Left) Arterial BP Standing (Pre-Dialysis) 128/64 mmHg BP Standing (P ost-Dialysis) 128/82 mmHg Sitting Heart Rate Pre-Dialysis 61 BPM Sitting Heart Rate Post-Dialysis 57 BPM Standing Heart Rate Pre-Dialysis 90 BPM Standing Heart Rate Post-Dialysis 65 BPM Temperature Pre-Dialysis 97.4 degF Temperature Post -Dialysis 97.5 degF October 26, 2022 In-Center Hemodialysis Treatment [id number]:18:00.000Z [id number]:52:51.000Z BP Sitting (Pre-Dialysis) 122/71 mmHg BP Sitting (Post-Dialysis) 146/72 mmHg Concurrent Access: falseAV Fistula Forearm (Left) Arterial BP Standing (Pre-Dialysis) 119/70 mmHg BP Standing (P ost-Dialysis) 145/71 mmHg Sitting Heart Rate Pre-Dialysis 65 BPM Sitting Heart Rate Post-Dialysis 59 BPM Standing Heart Rate Pre-Dialysis 66 BPM Standing Heart Rate Post-Dialysis 67 BPM Temperature Pre-Dialysis 97.4 degF Temperature Post -Dialysis 97.2 degF October 22, 2022 In-Center Hemodialysis Treatment [id number]:14:00.000Z [id number]:43:41.000Z BP Sitting (Pre-Dialysis) 144/71 mmHg BP Sitting (Post-Dialysis) 135/62 mmHg Concurrent Access: falseAV Fistula Forearm (Left) Arterial BP Standing (Pre-Dialysis) 125/65 mmHg BP Standing (P ost-Dialysis) 129/63 mmHg Sitting Heart Rate Pre-Dialysis 58 BPM Sitting Heart Rate Post-Dialysis 55 BPM Standing Heart Rate Pre-Dialysis 62 BPM Standing Heart Rate Post-Dialysis 53 BPM Temperature Pre-Dialysis 97.9 degF Temperature Post -Dialysis 97.2 degF October 19, 2022 In-Center Hemodialysis Treatment [id number]:34:46.000Z [id number]:35:11.000Z BP Sitting (Pre-Dialysis) 124/69 mmHg BP Sitting (Post-Dialysis) 170/62 mmHg Concurrent Access: falseAV Fistula Forearm (Left) Arterial BP Standing (Pre-Dialysis) 119/67 mmHg BP Standing (P ost-Dialysis) 127/65 mmHg Sitting Heart Rate Pre-Dialysis 63 BPM Sitting Heart Rate Post-Dialysis 72 BPM Standing Heart Rate Pre-Dialysis 66 BPM Standing Heart Rate Post-Dialysis 75 BPM Temperature Pre-Dialysis 97.3 degF Temperature Post -Dialysis 97.2 degF October 17, 2022 In-Center Hemodialysis Treatment [id number]:15:00.000Z [id number]:49:37.000Z BP Sitting (Pre-Dialysis) 123/74 mmHg BP Sitting (Post-Dialysis) 115/70 mmHg Concurrent Access: falseAV Fistula Forearm (Left) Arterial BP Standing (Pre-Dialysis) 109/62 mmHg BP Standing (P ost-Dialysis) 129/71 mmHg Sitting Heart Rate Pre-Dialysis 66 BPM Sitting Heart Rate Post-Dialysis 65 BPM Standing Heart Rate Pre-Dialysis 66 BPM Standing Heart Rate Post-Dialysis 69 BPM Temperature Pre-Dialysis 97.5 degF Temperature Post -Dialysis 97.2 degF October 15, 2022 In-Center Hemodialysis Treatment [id number]:20:21.000Z [id number]:51:36.000Z BP Sitting (Pre-Dialysis) 121/65 mmHg BP Sitting (Post-Dialysis) 108/54 mmHg Concurrent Access: falseAV Fistula Forearm (Left) Arterial BP Standing (Pre-Dialysis) 119/62 mmHg Sitti ng Heart Rate Post-Dialysis 59 BPM Sitting Heart Rate Pre-Dialysis 62 BPM Temperatu re Post-Dialysis 97.7 degF Standing Heart Rate Pre-Dialysis 62 BPM Temperature Pre-Dialysis 98 degF October 12, 2022 In-Center Hemodialysis Treatment [id number]:32:50.000Z [id number]:14:30.000Z BP Sitting (Pre-Dialysis) 128/64 mmHg BP Sitting (Post-Dialysis) 136/65 mmHg Concurrent Access: falseAV Fistula Forearm (Left) Arterial BP Standing (Pre-Dialysis) 116/69 mmHg BP Standing (P ost-Dialysis) 137/67 mmHg Sitting Heart Rate Pre-Dialysis 64 BPM Sitting Heart Rate Post-Dialysis 67 BPM Standing Heart Rate Pre-Dialysis 64 BPM Standing Heart Rate Post-Dialysis 65 BPM Temperature Pre-Dialysis 98 degF Temperature Post -Dialysis 97.2 degF October 10, 2022 In-Center Hemodialysis Treatment [id number]:20:00.000Z [id number]:57:22.000Z BP Sitting (Pre-Dialysis) 123/62 mmHg BP Sitting (Post-Dialysis) 142/65 mmHg Concurrent Access: falseAV Fistula Forearm (Left) Arterial BP Standing (Pre-Dialysis) 120/66 mmHg BP Standing (P ost-Dialysis) 141/72 mmHg Sitting Heart Rate Pre-Dialysis 82 BPM Sitting Heart Rate Post-Dialysis 59 BPM Standing Heart Rate Pre-Dialysis 72 BPM Standing Heart Rate Post-Dialysis 71 BPM Temperature Pre-Dialysis 97.3 degF Temperature Post -Dialysis 98.1 degF October 08, 2022 In-Center Hemodialysis Treatment [id number]:36:00.000Z [id number]:03:23.000Z BP Sitting (Pre-Dialysis) 118/65 mmHg BP Sitting (Post-Dialysis) 137/61 mmHg Concurrent Access: falseAV Fistula Forearm (Left) Arterial BP Standing (Pre-Dialysis) 115/68 mmHg BP Standing (P ost-Dialysis) 130/64 mmHg Sitting Heart Rate Pre-Dialysis 90 BPM Sitting Heart Rate Post-Dialysis 55 BPM Standing Heart Rate Pre-Dialysis 89 BPM Standing Heart Rate Post-Dialysis 61 BPM Temperature Pre-Dialysis 97.7 degF Temperature Post -Dialysis 97.9 degF DIALYSIS ORDER Dialysis Procedure Orders Type of Dialysis Procedure Order Order Date/Time Observations In-Center Hemodialysis Treatment 2023 Target Weight 81.5 kg Dialysate Flow Rate 800 mL/min Blood Flow Rate 450 mL/min Treatment Time 210 min(total) Max UF Rate 13 mL/kg/hr Base Sodium Dialysate Base Sodium 138 mE q/L dialysate_temp 37 C BiCarb Dialysate BiCarbonate 37 mEq/L Access Concurrent No Arterial Access AV Fistula (Forearm (Left)) Venous Access AV Fistula (Forearm (Left)) Arterial Needle Display NIPRO, TULIP, 15 G x 1 , SHARP , TWIN Venous Needle NIPRO, TULIP, 15G x 1 , SHARP , TWIN Dialyzer Nipro Elisio 15H 126 4 [email or web address] Dialysate Bath Potassium Potassium 2 mEq /L Dialysate Bath Calcium Calcium 2.5 mEq/L Results Adequacy Description Draw Date Result/Unit Status Ref Range Result Comments Creatinine [Mass/volume] in Serum or Plasma 2024-11-24 22:10:19 8.85 mg/dL F 0.7-1.3 Dialyzer KRISTIE 2024-11-17 18:43:01 1264 Calc F DIALYZER FLOW-QD 2024-11-17 18:43:01 800 mL/min F URR% 2024-11-17 18:43:01 89 % F LENGTH OF DIALYSIS 2024-11-17 18:43:01 210 min F BSA JENN 2024-11-17 18:43:01 2.1 sq m F PATIENT AGE 2024-11-17 18:43:01 64 Years F WEIGHT - PRE DAY 1 2024-11-17 18:43:01 87 kg F WEIGHT - POST DAY 1 2024-11-17 18:43:01 83.3 kg F HEIGHT IN INCHES 2024-11-17 18:43:01 75 Inches F WEIGHT (KG) 2024-11-17 18:43:01 81.5 kg F VT (KT/V TX VOL) 2024-11-17 18:43:01 24.6 L F VM (KT/V MEAN VOL) 2024-11-17 18:43:01 39.6 F PRESCRIBED DAYS/WEEK 2024-11-17 18:43:01 3 Day/Wk F KT/V PRESCRIBED 2024-11-17 18:43:01 1.8 F Residual kt/v 2024-11-17 18:43:01 F Total Kt/V 2024-11-17 18:43:01 2.69 F nPCR 2024-11-17 18:43:01 1.14 G/KG/D F AMPUTATE FACTOR 2024-11-17 18:43:01 0 F TBW (Liao) 2024-11-17 18:43:01 44.82 Liters F spKt/V 2024-11-17 18:43:01 2.69 F stdKt/V (DIAL) 2024-11-17 18:43:01 N/A F Std Renal KT/V 2024-11-17 18:43:01 N/A F eKt/V 2024-11-17 18:43:01 2.24 F TOTAL HOURS/WEEK DIALYSIS 2024-11-17 18:43:01 10 hrs F stdKT/V Total 2024-11-17 18:43:01 N/A F CURRENT KRU 2024-11-17 18:43:01 F BLOOD FLOW-QWB 2024-11-17 18:43:01 449 F Urea nitrogen [Mass/volume] in Serum or Plasma 2024-11-17 18:41:22 61 mg/dL F 9.0-23.0 Urea nitrogen [Mass/volume] in Serum or Plasma --post dialysis 2024-11-17 18:18:22 7 mg/dL F 9.0-23.0 URR% 2024-11-11 06:48:20 63 % F DIALYZER FLOW-QD 2024-11-11 06:48:20 800 mL/min F LENGTH OF DIALYSIS 2024-11-11 06:48:20 197 min F Dialyzer KRISTIE 2024-11-11 06:48:20 1264 Calc F PATIENT AGE 2024-11-11 06:48:20 64 Years F BSA JENN 2024-11-11 06:48:20 2.1 sq m F WEIGHT - PRE DAY 1 2024-11-11 06:48:20 85 kg F HEIGHT IN INCHES 2024-11-11 06:48:20 75 Inches F WEIGHT - POST DAY 1 2024-11-11 06:48:20 81.8 kg F WEIGHT (KG) 2024-11-11 06:48:20 81.5 kg F PRESCRIBED DAYS/WEEK 2024-11-11 06:48:20 3 Day/Wk F VT (KT/V TX VOL) 2024-11-11 06:48:20 38.5 L F VM (KT/V MEAN VOL) 2024-11-11 06:48:20 39.6 F Residual kt/v 2024-11-11 06:48:20 F KT/V PRESCRIBED 2024-11-11 06:48:20 1.69 F Total Kt/V 2024-11-11 06:48:20 1.19 F nPCR 2024-11-11 06:48:20 0.82 G/KG/D F AMPUTATE FACTOR 2024-11-11 06:48:20 0 F TBW (Liao) 2024-11-11 06:48:20 44.32 Liters F spKt/V 2024-11-11 06:48:20 1.19 F eKt/V 2024-11-11 06:48:20 1.01 F Std Renal KT/V 2024-11-11 06:48:20 N/A F stdKT/V Total 2024-11-11 06:48:20 N/A F stdKt/V (DIAL) 2024-11-11 06:48:20 N/A F TOTAL HOURS/WEEK DIALYSIS 2024-11-11 06:48:20 10 hrs F BLOOD FLOW-QWB 2024-11-11 06:48:20 277 F CURRENT KRU 2024-11-11 06:48:20 F Urea nitrogen [Mass/volume] in Serum or Plasma 2024-11-11 06:46:25 54 mg/dL F 9.0-23.0 Urea nitrogen [Mass/volume] in Serum or Plasma --post dialysis 2024-11-11 06:05:20 20 mg/dL F 9.0-23.0 AMPUTATE FACTOR 2024-11-09 22:04:37 0 F HEIGHT IN INCHES 2024-11-09 22:04:37 75 Inches F WEIGHT (KG) 2024-11-09 22:04:37 81.5 kg F PATIENT AGE 2024-11-09 22:04:37 64 Years F Creatinine [Mass/volume] in Serum or Plasma 2024-10-24 23:13:24 8.45 mg/dL F 0.7-1.3 URR% 2024-10-07 07:12:43 75 % F DIALYZER FLOW-QD 2024-10-07 07:12:43 800 mL/min F LENGTH OF DIALYSIS 2024-10-07 07:12:43 209 min F PATIENT AGE 2024-10-07 07:12:43 64 Years F Dialyzer KRISTIE 2024-10-07 07:12:43 1264 Calc F BSA JENN 2024-10-07 07:12:43 2.1 sq m F WEIGHT - POST DAY 1 2024-10-07 07:12:43 82.5 kg F WEIGHT - PRE DAY 1 2024-10-07 07:12:43 85.6 kg F HEIGHT IN INCHES 2024-10-07 07:12:43 75 Inches F WEIGHT (KG) 2024-10-07 07:12:43 81.5 kg F PRESCRIBED DAYS/WEEK 2024-10-07 07:12:43 3 Day/Wk F VT (KT/V TX VOL) 2024-10-07 07:12:43 40.6 L F VM (KT/V MEAN VOL) 2024-10-07 07:12:43 40 F Residual kt/v 2024-10-07 07:12:43 F KT/V PRESCRIBED 2024-10-07 07:12:43 1.79 F Total Kt/V 2024-10-07 07:12:43 1.62 F nPCR 2024-10-07 07:12:43 0.92 G/KG/D F AMPUTATE FACTOR 2024-10-07 07:12:43 0 F TBW (Liao) 2024-10-07 07:12:43 44.55 Liters F spKt/V 2024-10-07 07:12:43 1.62 F eKt/V 2024-10-07 07:12:43 1.37 F stdKt/V (DIAL) 2024-10-07 07:12:43 N/A F Std Renal KT/V 2024-10-07 07:12:43 N/A F TOTAL HOURS/WEEK DIALYSIS 2024-10-07 07:12:43 10 hrs F stdKT/V Total 2024-10-07 07:12:43 N/A F BLOOD FLOW-QWB 2024-10-07 07:12:43 449 F CURRENT KRU 2024-10-07 07:12:43 F DIALYZER FLOW-QD 2024-10-07 07:12:43 800 mL/min F URR% 2024-10-07 07:12:43 75 % F Dialyzer KRISTIE 2024-10-07 07:12:43 1264 Calc F LENGTH OF DIALYSIS 2024-10-07 07:12:43 209 min F PATIENT AGE 2024-10-07 07:12:43 64 Years F BSA JENN 2024-10-07 07:12:43 2.1 sq m F WEIGHT - POST DAY 1 2024-10-07 07:12:43 82.5 kg F WEIGHT - PRE DAY 1 2024-10-07 07:12:43 85.6 kg F HEIGHT IN INCHES 2024-10-07 07:12:43 75 Inches F WEIGHT (KG) 2024-10-07 07:12:43 81.5 kg F VT (KT/V TX VOL) 2024-10-07 07:12:43 40.6 L F PRESCRIBED DAYS/WEEK 2024-10-07 07:12:43 3 Day/Wk F VM (KT/V MEAN VOL) 2024-10-07 07:12:43 40 F Residual kt/v 2024-10-07 07:12:43 F KT/V PRESCRIBED 2024-10-07 07:12:43 1.79 F Total Kt/V 2024-10-07 07:12:43 1.62 F nPCR 2024-10-07 07:12:43 0.92 G/KG/D F AMPUTATE FACTOR 2024-10-07 07:12:43 0 F TBW (Liao) 2024-10-07 07:12:43 44.55 Liters F eKt/V 2024-10-07 07:12:43 1.37 F spKt/V 2024-10-07 07:12:43 1.62 F stdKt/V (DIAL) 2024-10-07 07:12:43 N/A F Std Renal KT/V 2024-10-07 07:12:43 N/A F stdKT/V Total 2024-10-07 07:12:43 N/A F TOTAL HOURS/WEEK DIALYSIS 2024-10-07 07:12:43 10 hrs F CURRENT KRU 2024-10-07 07:12:43 F BLOOD FLOW-QWB 2024-10-07 07:12:43 449 F Urea nitrogen [Mass/volume] in Serum or Plasma 2024-10-07 07:11:14 56 mg/dL F 9.0-23.0 Urea nitrogen [Mass/volume] in Serum or Plasma 2024-10-07 07:11:14 56 mg/dL F 9.0-23.0 Urea nitrogen [Mass/volume] in Serum or Plasma --post dialysis 2024-10-07 05:39:24 14 mg/dL F 9.0-23.0 Urea nitrogen [Mass/volume] in Serum or Plasma --post dialysis 2024-10-07 05:39:24 14 mg/dL F 9.0-23.0 Creatinine [Mass/volume] in Serum or Plasma 2024-09-23 03:47:34 8.17 mg/dL F 0.7-1.3 URR% 2024-09-08 20:46:57 72 % F DIALYZER FLOW-QD 2024-09-08 20:46:57 500 mL/min F Dialyzer KRISTIE 2024-09-08 20:46:57 1264 Calc F LENGTH OF DIALYSIS 2024-09-08 20:46:57 211 min F PATIENT AGE 2024-09-08 20:46:57 64 Years F BSA JENN 2024-09-08 20:46:57 2.1 sq m F WEIGHT - POST DAY 1 2024-09-08 20:46:57 81.5 kg F HEIGHT IN INCHES 2024-09-08 20:46:57 75 Inches F PRESCRIBED DAYS/WEEK 2024-09-08 20:46:57 3 Day/Wk F WEIGHT (KG) 2024-09-08 20:46:57 81.5 kg F WEIGHT - PRE DAY 1 2024-09-08 20:46:57 85 kg F VT (KT/V TX VOL) 2024-09-08 20:46:57 39.7 L F VM (KT/V MEAN VOL) 2024-09-08 20:46:57 39.8 F Residual kt/v 2024-09-08 20:46:57 F KT/V PRESCRIBED 2024-09-08 20:46:57 1.81 F AMPUTATE FACTOR 2024-09-08 20:46:57 0 F TBW (Liao) 2024-09-08 20:46:57 44.22 Liters F nPCR 2024-09-08 20:46:57 0.92 G/KG/D F Total Kt/V 2024-09-08 20:46:57 1.51 F spKt/V 2024-09-08 20:46:57 1.51 F eKt/V 2024-09-08 20:46:57 1.28 F Std Renal KT/V 2024-09-08 20:46:57 N/A F stdKT/V Total 2024-09-08 20:46:57 N/A F stdKt/V (DIAL) 2024-09-08 20:46:57 N/A F TOTAL HOURS/WEEK DIALYSIS 2024-09-08 20:46:57 10 hrs F BLOOD FLOW-QWB 2024-09-08 20:46:57 449 F CURRENT KRU 2024-09-08 20:46:57 F DIALYZER FLOW-QD 2024-09-08 20:46:57 500 mL/min F Dialyzer KRISTIE 2024-09-08 20:46:57 1264 Calc F LENGTH OF DIALYSIS 2024-09-08 20:46:57 211 min F WEIGHT (KG) 2024-09-08 20:46:57 81.5 kg F HEIGHT IN INCHES 2024-09-08 20:46:57 75 Inches F BSA JENN 2024-09-08 20:46:57 2.1 sq m F PRESCRIBED DAYS/WEEK 2024-09-08 20:46:57 3 Day/Wk F VT (KT/V TX VOL) 2024-09-08 20:46:57 39.7 L F Total Kt/V 2024-09-08 20:46:57 1.51 F KT/V PRESCRIBED 2024-09-08 20:46:57 1.81 F nPCR 2024-09-08 20:46:57 0.92 G/KG/D F AMPUTATE FACTOR 2024-09-08 20:46:57 0 F TBW (Liao) 2024-09-08 20:46:57 44.22 Liters F spKt/V 2024-09-08 20:46:57 1.51 F eKt/V 2024-09-08 20:46:57 1.28 F stdKt/V (DIAL) 2024-09-08 20:46:57 N/A F stdKT/V Total 2024-09-08 20:46:57 N/A F TOTAL HOURS/WEEK DIALYSIS 2024-09-08 20:46:57 10 hrs F BLOOD FLOW-QWB 2024-09-08 20:46:57 449 F CURRENT KRU 2024-09-08 20:46:57 F URR% 2024-09-08 20:46:57 72 % F PATIENT AGE 2024-09-08 20:46:57 64 Years F WEIGHT - PRE DAY 1 2024-09-08 20:46:57 85 kg F WEIGHT - POST DAY 1 2024-09-08 20:46:57 81.5 kg F Residual kt/v 2024-09-08 20:46:57 F VM (KT/V MEAN VOL) 2024-09-08 20:46:57 39.8 F Std Renal KT/V 2024-09-08 20:46:57 N/A F Urea nitrogen [Mass/volume] in Serum or Plasma --post dialysis 2024-09-08 20:45:12 16 mg/dL F 9.0-23.0 Urea nitrogen [Mass/volume] in Serum or Plasma --post dialysis 2024-09-08 20:45:12 16 mg/dL F 9.0-23.0 Urea nitrogen [Mass/volume] in Serum or Plasma 2024-09-08 18:44:16 57 mg/dL F 9.0-23.0 Urea nitrogen [Mass/volume] in Serum or Plasma 2024-09-08 18:44:16 57 mg/dL F 9.0-23.0 Creatinine [Mass/volume] in Serum or Plasma 2024-08-25 13:21:16 9.09 mg/dL F 0.7-1.3 Creatinine [Mass/volume] in Serum or Plasma 2024-08-25 13:21:16 9.09 mg/dL F 0.7-1.3 URR% 2024-08-12 14:31:03 76 % F LENGTH OF DIALYSIS 2024-08-12 14:31:03 211 min F WEIGHT - POST DAY 1 2024-08-12 14:31:03 81.2 kg F WEIGHT - PRE DAY 1 2024-08-12 14:31:03 84.5 kg F HEIGHT IN INCHES 2024-08-12 14:31:03 75 Inches F DIALYZER FLOW-QD 2024-08-12 14:31:03 800 mL/min F WEIGHT (KG) 2024-08-12 14:31:03 81.5 kg F VT (KT/V TX VOL) 2024-08-12 14:31:03 39.5 L F PRESCRIBED DAYS/WEEK 2024-08-12 14:31:03 3 Day/Wk F AMPUTATE FACTOR 2024-08-12 14:31:03 0 F TBW (Liao) 2024-08-12 14:31:03 44.12 Liters F stdKT/V Total 2024-08-12 14:31:03 N/A F stdKt/V (DIAL) 2024-08-12 14:31:03 N/A F CURRENT KRU 2024-08-12 14:31:03 F Dialyzer KRISTIE 2024-08-12 14:31:03 1264 Calc F PATIENT AGE 2024-08-12 14:31:03 64 Years F BSA JENN 2024-08-12 14:31:03 2.1 sq m F VM (KT/V MEAN VOL) 2024-08-12 14:31:03 39.8 F Residual kt/v 2024-08-12 14:31:03 F Total Kt/V 2024-08-12 14:31:03 1.68 F nPCR 2024-08-12 14:31:03 1.19 G/KG/D F spKt/V 2024-08-12 14:31:03 1.68 F KT/V PRESCRIBED 2024-08-12 14:31:03 1.81 F eKt/V 2024-08-12 14:31:03 1.42 F Std Renal KT/V 2024-08-12 14:31:03 N/A F TOTAL HOURS/WEEK DIALYSIS 2024-08-12 14:31:03 10 hrs F BLOOD FLOW-QWB 2024-08-12 14:31:03 449 F Urea nitrogen [Mass/volume] in Serum or Plasma --post dialysis 2024-08-12 14:29:22 18 mg/dL F 9.0-23.0 Urea nitrogen [Mass/volume] in Serum or Plasma 2024-08-12 14:20:26 75 mg/dL F 9.0-23.0 AMPUTATE FACTOR 2024-07-31 15:04:06 0 F TBW (Liao) 2024-07-31 15:04:06 44.05 Liters F eKt/V 2024-07-31 15:04:06 1.36 F stdKT/V Total 2024-07-31 15:04:06 N/A F BLOOD FLOW-QWB 2024-07-31 15:04:06 449 F URR% 2024-07-31 15:04:06 75 % F Dialyzer KRISTIE 2024-07-31 15:04:06 1264 Calc F PATIENT AGE 2024-07-31 15:04:06 64 Years F WEIGHT (KG) 2024-07-31 15:04:06 81.5 kg F VM (KT/V MEAN VOL) 2024-07-31 15:04:06 39.9 F Residual kt/v 2024-07-31 15:04:06 F KT/V PRESCRIBED 2024-07-31 15:04:06 1.63 F Total Kt/V 2024-07-31 15:04:06 1.61 F spKt/V 2024-07-31 15:04:06 1.61 F stdKt/V (DIAL) 2024-07-31 15:04:06 N/A F Std Renal KT/V 2024-07-31 15:04:06 N/A F TOTAL HOURS/WEEK DIALYSIS 2024-07-31 15:04:06 9 hrs F CURRENT KRU 2024-07-31 15:04:06 F DIALYZER FLOW-QD 2024-07-31 15:04:06 800 mL/min F LENGTH OF DIALYSIS 2024-07-31 15:04:06 211 min F BSA JENN 2024-07-31 15:04:06 2.1 sq m F WEIGHT - POST DAY 1 2024-07-31 15:04:06 81 kg F WEIGHT - PRE DAY 1 2024-07-31 15:04:06 83.5 kg F HEIGHT IN INCHES 2024-07-31 15:04:06 75 Inches F PRESCRIBED DAYS/WEEK 2024-07-31 15:04:06 3 Day/Wk F VT (KT/V TX VOL) 2024-07-31 15:04:06 41.2 L F nPCR 2024-07-31 15:04:06 1.19 G/KG/D F DIALYZER FLOW-QD 2024-07-31 15:04:05 800 mL/min F URR% 2024-07-31 15:04:05 F Unable to calculate: Post BUN lab result is unknown Dialyzer KRISTIE 2024-07-31 15:04:05 1264 Calc F PATIENT AGE 2024-07-31 15:04:05 64 Years F LENGTH OF DIALYSIS 2024-07-31 15:04:05 208 min F WEIGHT - PRE DAY 1 2024-07-31 15:04:05 85.7 kg F WEIGHT - POST DAY 1 2024-07-31 15:04:05 82.3 kg F WEIGHT (KG) 2024-07-31 15:04:05 81.5 kg F VT (KT/V TX VOL) 2024-07-31 15:04:05 F Unable to calculate: Post BUN lab result is unknown VM (KT/V MEAN VOL) 2024-07-31 15:04:05 F Unable to calculate: Post BUN lab result is unknown Residual kt/v 2024-07-31 15:04:05 F Unable to calculate: Post BUN lab result is unknown Total Kt/V 2024-07-31 15:04:05 F Unable to calculate: Post BUN lab result is unknown nPCR 2024-07-31 15:04:05 F Unable to calculate: Post BUN lab result is unknown TBW (Liao) 2024-07-31 15:04:05 F Unable to calculate: Post BUN lab result is unknown eKt/V 2024-07-31 15:04:05 F Unable to calculate: Post BUN lab result is unknown stdKt/V (DIAL) 2024-07-31 15:04:05 F Unable to calculate: Post BUN lab result is unknown stdKT/V Total 2024-07-31 15:04:05 F Unable to calculate: Post BUN lab result is unknown TOTAL HOURS/WEEK DIALYSIS 2024-07-31 15:04:05 9 hrs F BLOOD FLOW-QWB 2024-07-31 15:04:05 390 F BSA JENN 2024-07-31 15:04:05 F Unable to calculate: Post BUN lab result is unknown PRESCRIBED DAYS/WEEK 2024-07-31 15:04:05 3 Day/Wk F HEIGHT IN INCHES 2024-07-31 15:04:05 75 Inches F KT/V PRESCRIBED 2024-07-31 15:04:05 F Unable to calculate: Post BUN lab result is unknown AMPUTATE FACTOR 2024-07-31 15:04:05 0 F spKt/V 2024-07-31 15:04:05 F Unable to calculate: Post BUN lab result is unknown Std Renal KT/V 2024-07-31 15:04:05 F Unable to calculate: Post BUN lab result is unknown CURRENT KRU 2024-07-31 15:04:05 F Unable to calculate: Post BUN lab result is unknown Creatinine [Mass/volume] in Serum or Plasma 2024-07-21 21:09:21 8.93 mg/dL F 0.7-1.3 Urea nitrogen [Mass/volume] in Serum or Plasma 2024-07-10 23:24:30 59 mg/dL F 9.0-23.0 Urea nitrogen [Mass/volume] in Serum or Plasma --post dialysis 2024-07-10 19:54:23 15 mg/dL F 9.0-23.0 Urea nitrogen [Mass/volume] in Serum or Plasma 2024-07-07 14:44:18 79 mg/dL F 9.0-23.0 Urea nitrogen [Mass/volume] in Serum or Plasma --post dialysis 2024-07-07 13:01:38 F Recollect - Unsp un specimen Creatinine [Mass/volume] in Serum or Plasma 2024-03-26 17:02:40 8.62 mg/dL F 0.7-1.3 Creatinine [Mass/volume] in Serum or Plasma 2024-03-26 17:02:40 8.62 mg/dL F 0.7-1.3 Creatinine [Mass/volume] in Serum or Plasma 2023-03-20 04:14:23 7.28 mg/dL F 0.7-1.3 Creatinine [Mass/volume] in Serum or Plasma 2023-01-17 21:24:22 6.58 mg/dL F 0.7-1.3 Creatinine [Mass/volume] in Serum or Plasma 2022-12-20 14:15:57 6.71 mg/dL F 0.7-1.3 Creatinine [Mass/volume] in Serum or Plasma 2022-12-20 14:15:57 6.71 mg/dL F 0.7-1.3 Creatinine [Mass/volume] in Serum or Plasma 2022-11-15 15:07:57 6.71 mg/dL F 0.7-1.3 Creatinine [Mass/volume] in Serum or Plasma 2022-11-15 15:07:57 6.71 mg/dL F 0.7-1.3 Creatinine [Mass/volume] in Serum or Plasma 2022-10-18 16:22:50 7.35 mg/dL F 0.7-1.3 Urea nitrogen [Mass/volume] in Serum or Plasma --post dialysis spKt/V LENGTH OF DIALYSIS CURRENT KRU VM (KT/V MEAN VOL) URR% TBW (Liao) Urea nitrogen [Mass/volume] in Serum or Plasma Std Renal KT/V DIALYZER FLOW-QD BSA JENN stdKT/V Total Dialyzer KRISTIE BLOOD FLOW-QWB stdKt/V (DIAL) VT (KT/V TX VOL) WEIGHT - PRE DAY 1 eKt/V PRESCRIBED DAYS/WEEK nPCR Residual kt/v TOTAL HOURS/WEEK DIALYSIS KT/V PRESCRIBED Total Kt/V WEIGHT - POST DAY 1 Anemia Description Draw Date Result/Unit Status Ref Range Result Comments HCT CALC HGBX3 2024-11-24 16:17:20 29.1 % F 42.0-52.0 Erythrocytes [#/volume] in Blood by Automated count 2024-11-24 16:16:18 2.97 x 10^6 cells/uL F 4.6-6.2 Hemoglobin [Mass/volume] in Blood 2024-11-24 16:16:18 9.7 g/dL F 14.0-18.0 MCH [Entitic mass] by Automated count 2024-11-24 16:16:18 32.7 pg F 25.9-34.2 MCHC [Mass/volume] by Automated count 2024-11-24 16:16:18 30.8 g/dL F 29.6-35.3 Hematocrit [Volume Fraction] of Blood by Automated count 2024-11-24 16:16:18 31.5 % F 41.0-53.0 MCV [Entitic volume] by Automated count 2024-11-24 16:16:18 106 fL F 80.0-100.0 Platelets [#/volume] in Blood by Automated count 2024-11-24 16:16:18 275 x 10^3 cells/uL F 140.0-450.0 Erythrocyte distribution width [Ratio] by Automated count 2024-11-24 16:16:16 15.7 % F 11.0-15.0 HCT CALC HGBX3 2024-11-11 08:05:16 28.5 % F 42.0-52.0 Hemoglobin [Mass/volume] in Blood 2024-11-11 08:04:12 9.5 g/dL F 14.0-18.0 Reticulocytes/100 erythrocytes in Blood by Automated count 2024-11-05 14:47:05 1.89 % F 0.7-2.5 ABSOLUTE RETIC COUNT 2024-11-05 14:47:05 0.053 x 10^6 cells/uL F 0.035-0.127 Platelets [#/volume] in Blood by Automated count 2024-10-25 03:27:34 F CANCELED - TEST CANCELED,Unable to report due to platelet clumping. Consider use of an alternative anticoagulant with referral to a reference laboratory if the condition persists., Platelets Appear Increased HCT CALC HGBX3 2024-10-25 03:11:59 27.9 % F 42.0-52.0 Erythrocyte distribution width [Ratio] by Automated count 2024-10-25 03:10:57 14.9 % F 11.0-15.0 Erythrocytes [#/volume] in Blood by Automated count 2024-10-25 03:10:57 3 x 10'6 cells/uL F 4.6-6.2 Hematocrit [Volume Fraction] of Blood by Automated count 2024-10-25 03:10:57 32.3 % F 41.0-53.0 Hemoglobin [Mass/volume] in Blood 2024-10-25 03:10:57 9.3 g/dL F 14.0-18.0 MCV [Entitic volume] by Automated count 2024-10-25 03:10:57 107.9 fL F 80.0-100.0 MCH [Entitic mass] by Automated count 2024-10-25 03:10:57 31.1 pg F 25.9-34.2 MCHC [Mass/volume] by Automated count 2024-10-25 03:10:57 28.9 g/dL F 29.6-35.3 HCT CALC HGBX3 2024-10-07 06:00:09 32.1 % F 42.0-52.0 HCT CALC HGBX3 2024-10-07 06:00:09 32.1 % F 42.0-52.0 Hemoglobin [Mass/volume] in Blood 2024-10-07 05:59:18 10.7 g/dL F 14.0-18.0 Hemoglobin [Mass/volume] in Blood 2024-10-07 05:59:18 10.7 g/dL F 14.0-18.0 IRON SATURATION 2024-09-23 08:21:25 40 % F 21.0-49.0 TIBC 2024-09-23 08:21:25 226 ug/dL F 250.0-425.0 Ferritin [Mass/volume] in Serum or Plasma 2024-09-23 08:11:54 741 ng/mL F 22.0-322.0 Iron [Mass/volume] in Serum or Plasma 2024-09-23 07:45:39 90 ug/dL F 65.0-175.0 Iron binding capacity.unsaturate d [Mass/volume] in Serum or Plasma 2024-09-23 07:45:39 136 ug/dL F 75.0-360.0 HCT CALC HGBX3 2024-09-23 03:54:29 31.8 % F 42.0-52.0 Erythrocytes [#/volume] in Blood by Automated count 2024-09-23 03:53:12 3.2 x 10'6 cells/uL F 4.6-6.2 MCH [Entitic mass] by Automated count 2024-09-23 03:53:12 33 pg F 25.9-34.2 Hemoglobin [Mass/volume] in Blood 2024-09-23 03:53:12 10.6 g/dL F 14.0-18.0 Platelets [#/volume] in Blood by Automated count 2024-09-23 03:53:12 271 x 10^3 cells/uL F 140.0-450.0 Erythrocyte distribution width [Ratio] by Automated count 2024-09-23 03:53:12 15 % F 11.0-15.0 MCHC [Mass/volume] by Automated count 2024-09-23 03:53:12 30.8 g/dL F 29.6-35.3 Hematocrit [Volume Fraction] of Blood by Automated count 2024-09-23 03:53:12 34.3 % F 41.0-53.0 MCV [Entitic volume] by Automated count 2024-09-23 03:53:12 107.1 fL F 80.0-100.0 HCT CALC HGBX3 2024-09-08 20:30:25 31.5 % F 42.0-52.0 HCT CALC HGBX3 2024-09-08 20:30:25 31.5 % F 42.0-52.0 Hemoglobin [Mass/volume] in Blood 2024-09-08 20:29:16 10.5 g/dL F 14.0-18.0 Hemoglobin [Mass/volume] in Blood 2024-09-08 20:29:16 10.5 g/dL F 14.0-18.0 HCT CALC HGBX3 2024-08-25 13:27:06 33.6 % F 42.0-52.0 HCT CALC HGBX3 2024-08-25 13:27:06 33.6 % F 42.0-52.0 MCH [Entitic mass] by Automated count 2024-08-25 13:26:13 33.7 pg F 25.9-34.2 MCH [Entitic mass] by Automated count 2024-08-25 13:26:13 33.7 pg F 25.9-34.2 Erythrocyte distribution width [Ratio] by Automated count 2024-08-25 13:26:12 15.3 % F 11.0-15.0 Erythrocytes [#/volume] in Blood by Automated count 2024-08-25 13:26:12 3.33 x 10'6 cells/uL F 4.6-6.2 Hematocrit [Volume Fraction] of Blood by Automated count 2024-08-25 13:26:12 34.8 % F 41.0-53.0 Hemoglobin [Mass/volume] in Blood 2024-08-25 13:26:12 11.2 g/dL F 14.0-18.0 MCV [Entitic volume] by Automated count 2024-08-25 13:26:12 104.4 fL F 80.0-100.0 MCHC [Mass/volume] by Automated count 2024-08-25 13:26:12 32.3 g/dL F 29.6-35.3 Platelets [#/volume] in Blood by Automated count 2024-08-25 13:26:12 263 x 10^3 cells/uL F 140.0-450.0 Hemoglobin [Mass/volume] in Blood 2024-08-25 13:26:12 11.2 g/dL F 14.0-18.0 Hematocrit [Volume Fraction] of Blood by Automated count 2024-08-25 13:26:12 34.8 % F 41.0-53.0 Platelets [#/volume] in Blood by Automated count 2024-08-25 13:26:12 263 x 10'3 cells/uL F 140.0-450.0 Erythrocytes [#/volume] in Blood by Automated count 2024-08-25 13:26:12 3.33 x 10'6 cells/uL F 4.6-6.2 Erythrocyte distribution width [Ratio] by Automated count 2024-08-25 13:26:12 15.3 % F 11.0-15.0 MCHC [Mass/volume] by Automated count 2024-08-25 13:26:12 32.3 g/dL F 29.6-35.3 MCV [Entitic volume] by Automated count 2024-08-25 13:26:12 104.4 fL F 80.0-100.0 HCT CALC HGBX3 2024-08-11 15:18:15 33.3 % F 42.0-52.0 Hemoglobin [Mass/volume] in Blood 2024-08-11 15:18:09 11.1 g/dL F 14.0-18.0 HCT CALC HGBX3 2024-07-21 22:36:09 35.1 % F 42.0-52.0 Hemoglobin [Mass/volume] in Blood 2024-07-21 22:35:14 11.7 g/dL F 14.0-18.0 MCHC [Mass/volume] by Automated count 2024-07-21 22:35:14 31.1 g/dL F 29.6-35.3 Hematocrit [Volume Fraction] of Blood by Automated count 2024-07-21 22:35:14 37.5 % F 41.0-53.0 MCV [Entitic volume] by Automated count 2024-07-21 22:35:14 104.9 fL F 80.0-100.0 Platelets [#/volume] in Blood by Automated count 2024-07-21 22:35:14 251 x 10'3 cells/uL F 140.0-450.0 Erythrocytes [#/volume] in Blood by Automated count 2024-07-21 22:35:14 3.58 x 10'6 cells/uL F 4.6-6.2 Erythrocyte distribution width [Ratio] by Automated count 2024-07-21 22:35:14 14.8 % F 11.0-15.0 MCH [Entitic mass] by Automated count 2024-07-21 22:35:14 32.6 pg F 25.9-34.2 HCT CALC HGBX3 2024-07-14 13:45:25 32.7 % F 42.0-52.0 Hemoglobin [Mass/volume] in Blood 2024-07-14 13:45:18 10.9 g/dL F 14.0-18.0 HCT CALC HGBX3 2024-07-07 15:03:05 36 % F 42.0-52.0 Hemoglobin [Mass/volume] in Blood 2024-07-07 15:02:13 12 g/dL F 14.0-18.0 IRON SATURATION 2024-03-27 06:29:01 52 % F 21.0-49.0 TIBC 2024-03-27 06:29:01 231 ug/dL F 250.0-425.0 IRON SATURATION 2024-03-27 06:29:01 52 % F 21.0-49.0 TIBC 2024-03-27 06:29:01 231 ug/dL F 250.0-425.0 Iron [Mass/volume] in Serum or Plasma 2024-03-27 06:26:33 120 ug/dL F 65.0-175.0 Iron binding capacity.unsaturate d [Mass/volume] in Serum or Plasma 2024-03-27 06:26:33 111 ug/dL F 75.0-360.0 Iron [Mass/volume] in Serum or Plasma 2024-03-27 06:26:33 120 ug/dL F 65.0-175.0 Iron binding capacity.unsaturate d [Mass/volume] in Serum or Plasma 2024-03-27 06:26:33 111 ug/dL F 75.0-360.0 Ferritin [Mass/volume] in Serum or Plasma 2024-03-27 03:45:18 725 ng/mL F 22.0-322.0 Ferritin [Mass/volume] in Serum or Plasma 2024-03-27 03:45:18 725 ng/mL F 22.0-322.0 HCT CALC HGBX3 2024-03-27 00:50:20 36 % F 42.0-52.0 HCT CALC HGBX3 2024-03-27 00:50:20 36 % F 42.0-52.0 Erythrocyte distribution width [Ratio] by Automated count 2024-03-27 00:49:35 14 % F 11.0-15.0 Erythrocytes [#/volume] in Blood by Automated count 2024-03-27 00:49:35 3.61 x 10'6 cells/uL F 4.6-6.2 Hemoglobin [Mass/volume] in Blood 2024-03-27 00:49:35 12 g/dL F 14.0-18.0 Hematocrit [Volume Fraction] of Blood by Automated count 2024-03-27 00:49:35 37.9 % F 41.0-53.0 MCV [Entitic volume] by Automated count 2024-03-27 00:49:35 105 fL F 80.0-100.0 MCH [Entitic mass] by Automated count 2024-03-27 00:49:35 33.3 pg F 25.9-34.2 MCHC [Mass/volume] by Automated count 2024-03-27 00:49:35 31.7 g/dL F 29.6-35.3 Platelets [#/volume] in Blood by Automated count 2024-03-27 00:49:35 286 x 10^3 cells/uL F 140.0-450.0 Erythrocytes [#/volume] in Blood by Automated count 2024-03-27 00:49:35 3.61 x 10'6 cells/uL F 4.6-6.2 Erythrocyte distribution width [Ratio] by Automated count 2024-03-27 00:49:35 14 % F 11.0-15.0 MCH [Entitic mass] by Automated count 2024-03-27 00:49:35 33.3 pg F 25.9-34.2 Hematocrit [Volume Fraction] of Blood by Automated count 2024-03-27 00:49:35 37.9 % F 41.0-53.0 MCV [Entitic volume] by Automated count 2024-03-27 00:49:35 105 fL F 80.0-100.0 Hemoglobin [Mass/volume] in Blood 2024-03-27 00:49:35 12 g/dL F 14.0-18.0 MCHC [Mass/volume] by Automated count 2024-03-27 00:49:35 31.7 g/dL F 29.6-35.3 Platelets [#/volume] in Blood by Automated count 2024-03-27 00:49:35 286 x 10'3 cells/uL F 140.0-450.0 IRON SATURATION 2023-03-20 06:30:07 28 % F 21.0-49.0 TIBC 2023-03-20 06:30:07 232 ug/dL F 250.0-425.0 Iron binding capacity.unsaturate d [Mass/volume] in Serum or Plasma 2023-03-20 06:22:52 168 ug/dL F 75.0-360.0 Iron [Mass/volume] in Serum or Plasma 2023-03-20 06:07:19 64 ug/dL F 65.0-175.0 HCT CALC HGBX3 2023-03-20 04:48:48 33.9 % F 42.0-52.0 Erythrocytes [#/volume] in Blood by Automated count 2023-03-20 04:48:20 3.36 x 10'6 cells/uL F 4.6-6.2 Hemoglobin [Mass/volume] in Blood 2023-03-20 04:48:20 11.3 g/dL F 14.0-18.0 MCH [Entitic mass] by Automated count 2023-03-20 04:48:20 33.8 pg F 27.0-31.0 Hematocrit [Volume Fraction] of Blood by Automated count 2023-03-20 04:48:20 36.9 % F 42.0-52.0 MCV [Entitic volume] by Automated count 2023-03-20 04:48:20 109.7 fL F 80.0-100.0 Erythrocyte distribution width [Ratio] by Automated count 2023-03-20 04:48:20 13.4 % F 11.0-15.0 MCHC [Mass/volume] by Automated count 2023-03-20 04:48:20 30.8 g/dL F 32.0-36.0 Platelets [#/volume] in Blood by Automated count 2023-03-20 04:48:20 267 x 10^3 cells/uL F 150.0-400.0 Ferritin [Mass/volume] in Serum or Plasma 2023-03-19 20:42:30 778 ng/mL F 22.0-322.0 HCT CALC HGBX3 2023-01-17 23:28:04 33.3 % F 42.0-52.0 Erythrocytes [#/volume] in Blood by Automated count 2023-01-17 23:27:22 3.4 x 10'6 cells/uL F 4.6-6.2 MCHC [Mass/volume] by Automated count 2023-01-17 23:27:22 30.8 g/dL F 32.0-36.0 Hematocrit [Volume Fraction] of Blood by Automated count 2023-01-17 23:27:22 36 % F 42.0-52.0 Platelets [#/volume] in Blood by Automated count 2023-01-17 23:27:22 265 x 10^3 cells/uL F 150.0-400.0 Hemoglobin [Mass/volume] in Blood 2023-01-17 23:27:22 11.1 g/dL F 14.0-18.0 Erythrocyte distribution width [Ratio] by Automated count 2023-01-17 23:27:22 14.1 % F 11.0-15.0 MCV [Entitic volume] by Automated count 2023-01-17 23:27:22 105.9 fL F 80.0-100.0 MCH [Entitic mass] by Automated count 2023-01-17 23:27:22 32.6 pg F 27.0-31.0 IRON SATURATION 2022-12-20 18:37:18 41 % F 21.0-49.0 TIBC 2022-12-20 18:37:18 263 ug/dL F 250.0-425.0 IRON SATURATION 2022-12-20 18:37:18 41 % F 21.0-49.0 TIBC 2022-12-20 18:37:18 263 ug/dL F 250.0-425.0 Iron [Mass/volume] in Serum or Plasma 2022-12-20 18:36:33 109 ug/dL F 65.0-175.0 Iron binding capacity.unsaturate d [Mass/volume] in Serum or Plasma 2022-12-20 18:36:33 154 ug/dL F 75.0-360.0 Iron [Mass/volume] in Serum or Plasma 2022-12-20 18:36:33 109 ug/dL F 65.0-175.0 Iron binding capacity.unsaturate d [Mass/volume] in Serum or Plasma 2022-12-20 18:36:33 154 ug/dL F 75.0-360.0 Ferritin [Mass/volume] in Serum or Plasma 2022-12-20 16:22:52 830 ng/mL F 22.0-322.0 Ferritin [Mass/volume] in Serum or Plasma 2022-12-20 16:22:52 830 ng/mL F 22.0-322.0 HCT CALC HGBX3 2022-12-20 13:59:18 33 % F 42.0-52.0 HCT CALC HGBX3 2022-12-20 13:59:18 33 % F 42.0-52.0 Erythrocyte distribution width [Ratio] by Automated count 2022-12-20 13:59:00 13.7 % F 11.0-15.0 Erythrocytes [#/volume] in Blood by Automated count 2022-12-20 13:59:00 3.45 x 10'6 cells/uL F 4.6-6.2 Hematocrit [Volume Fraction] of Blood by Automated count 2022-12-20 13:59:00 35 % F 42.0-52.0 Hemoglobin [Mass/volume] in Blood 2022-12-20 13:59:00 11 g/dL F 14.0-18.0 MCHC [Mass/volume] by Automated count 2022-12-20 13:59:00 31.5 g/dL F 32.0-36.0 MCV [Entitic volume] by Automated count 2022-12-20 13:59:00 101.5 fL F 80.0-100.0 MCH [Entitic mass] by Automated count 2022-12-20 13:59:00 32 pg F 27.0-31.0 Platelets [#/volume] in Blood by Automated count 2022-12-20 13:59:00 304 x 10^3 cells/uL F 150.0-400.0 Erythrocytes [#/volume] in Blood by Automated count 2022-12-20 13:59:00 3.45 x 10'6 cells/uL F 4.6-6.2 Erythrocyte distribution width [Ratio] by Automated count 2022-12-20 13:59:00 13.7 % F 11.0-15.0 Hemoglobin [Mass/volume] in Blood 2022-12-20 13:59:00 11 g/dL F 14.0-18.0 MCHC [Mass/volume] by Automated count 2022-12-20 13:59:00 31.5 g/dL F 32.0-36.0 Hematocrit [Volume Fraction] of Blood by Automated count 2022-12-20 13:59:00 35 % F 42.0-52.0 MCV [Entitic volume] by Automated count 2022-12-20 13:59:00 101.5 fL F 80.0-100.0 Platelets [#/volume] in Blood by Automated count 2022-12-20 13:59:00 304 x 10^3 cells/uL F 150.0-400.0 MCH [Entitic mass] by Automated count 2022-12-20 13:59:00 32 pg F 27.0-31.0 HCT CALC HGBX3 2022-11-15 15:17:58 35.1 % F 42.0-52.0 HCT CALC HGBX3 2022-11-15 15:17:58 35.1 % F 42.0-52.0 Erythrocyte distribution width [Ratio] by Automated count 2022-11-15 15:17:49 14 % F 11.0-15.0 Erythrocytes [#/volume] in Blood by Automated count 2022-11-15 15:17:49 3.58 x 10'6 cells/uL F 4.6-6.2 Hemoglobin [Mass/volume] in Blood 2022-11-15 15:17:49 11.7 g/dL F 14.0-18.0 Hematocrit [Volume Fraction] of Blood by Automated count 2022-11-15 15:17:49 36.2 % F 42.0-52.0 MCV [Entitic volume] by Automated count 2022-11-15 15:17:49 101.1 fL F 80.0-100.0 MCH [Entitic mass] by Automated count 2022-11-15 15:17:49 32.6 pg F 27.0-31.0 MCHC [Mass/volume] by Automated count 2022-11-15 15:17:49 32.2 g/dL F 32.0-36.0 Platelets [#/volume] in Blood by Automated count 2022-11-15 15:17:49 247 x 10^3 cells/uL F 150.0-400.0 Erythrocytes [#/volume] in Blood by Automated count 2022-11-15 15:17:49 3.58 x 10'6 cells/uL F 4.6-6.2 Erythrocyte distribution width [Ratio] by Automated count 2022-11-15 15:17:49 14 % F 11.0-15.0 Hemoglobin [Mass/volume] in Blood 2022-11-15 15:17:49 11.7 g/dL F 14.0-18.0 MCH [Entitic mass] by Automated count 2022-11-15 15:17:49 32.6 pg F 27.0-31.0 MCHC [Mass/volume] by Automated count 2022-11-15 15:17:49 32.2 g/dL F 32.0-36.0 Hematocrit [Volume Fraction] of Blood by Automated count 2022-11-15 15:17:49 36.2 % F 42.0-52.0 MCV [Entitic volume] by Automated count 2022-11-15 15:17:49 101.1 fL F 80.0-100.0 Platelets [#/volume] in Blood by Automated count 2022-11-15 15:17:49 247 x 10^3 cells/uL F 150.0-400.0 HCT CALC HGBX3 2022-10-18 17:26:16 37.5 % F 42.0-52.0 Erythrocyte distribution width [Ratio] by Automated count 2022-10-18 17:25:40 14 % F 11.0-15.0 MCV [Entitic volume] by Automated count 2022-10-18 17:25:40 102.6 fL F 80.0-100.0 MCH [Entitic mass] by Automated count 2022-10-18 17:25:40 33.2 pg F 27.0-31.0 Erythrocytes [#/volume] in Blood by Automated count 2022-10-18 17:25:40 3.75 x 10'6 cells/uL F 4.6-6.2 Hemoglobin [Mass/volume] in Blood 2022-10-18 17:25:40 12.5 g/dL F 14.0-18.0 MCHC [Mass/volume] by Automated count 2022-10-18 17:25:40 32.4 g/dL F 32.0-36.0 Hematocrit [Volume Fraction] of Blood by Automated count 2022-10-18 17:25:40 38.5 % F 42.0-52.0 Platelets [#/volume] in Blood by Automated count 2022-10-18 17:25:40 251 x 10^3 cells/uL F 150.0-400.0 Hemoglobin [Mass/volume] in Blood FluidBP Description Draw Date Result/Unit Status Ref Range Result Comments Sodium [Moles/volume] in Serum or Plasma 2024-11-25 07:52:12 142 mEq/L F 132.0-146.0 Sodium [Moles/volume] in Serum or Plasma 2024-10-25 06:22:08 143 mEq/L F 132.0-146.0 Sodium [Moles/volume] in Serum or Plasma 2024-09-23 07:45:39 140 mEq/L F 132.0-146.0 Sodium [Moles/volume] in Serum or Plasma 2024-08-25 15:58:43 139 mEq/L F 132.0-146.0 Sodium [Moles/volume] in Serum or Plasma 2024-08-25 15:58:43 139 mEq/L F 132.0-146.0 Sodium [Moles/volume] in Serum or Plasma 2024-07-22 06:21:22 138 mEq/L F 132.0-146.0 Sodium [Moles/volume] in Serum or Plasma 2024-03-27 06:26:32 142 mEq/L F 132.0-146.0 Sodium [Moles/volume] in Serum or Plasma 2024-03-27 06:26:32 142 mEq/L F 132.0-146.0 Sodium [Moles/volume] in Serum or Plasma 2023-03-20 04:14:23 142 mEq/L F 132.0-146.0 Sodium [Moles/volume] in Serum or Plasma 2023-01-17 21:24:22 142 mEq/L F 132.0-146.0 Sodium [Moles/volume] in Serum or Plasma 2022-12-20 14:15:57 140 mEq/L F 132.0-146.0 Sodium [Moles/volume] in Serum or Plasma 2022-12-20 14:15:57 140 mEq/L F 132.0-146.0 Sodium [Moles/volume] in Serum or Plasma 2022-11-15 15:07:57 141 mEq/L F 132.0-146.0 Sodium [Moles/volume] in Serum or Plasma 2022-11-15 15:07:57 141 mEq/L F 132.0-146.0 Sodium [Moles/volume] in Serum or Plasma 2022-10-18 16:22:50 140 mEq/L F 132.0-146.0 General Description Draw Date Result/Unit Status Ref Range Result Comments Chloride [Moles/volume] in Serum or Plasma 2024-11-25 07:52:12 107 mEq/L F 99.0-109.0 Aspartate aminotransferase [Enzymatic activity/volume] in Serum or Plasma 2024-11-24 22:10:19 14 U/L F 0.0-33.0 Alanine aminotransferase [Enzymatic activity/volume] in Serum or Plasma 2024-11-24 22:10:19 11 U/L F 10.0-49.0 Chloride [Moles/volume] in Serum or Plasma 2024-10-25 06:22:08 109 mEq/L F 99.0-109.0 Alanine aminotransferase [Enzymatic activity/volume] in Serum or Plasma 2024-10-24 23:13:24 10 U/L F 10.0-49.0 Aspartate aminotransferase [Enzymatic activity/volume] in Serum or Plasma 2024-10-24 23:13:24 9 U/L F 0.0-33.0 Chloride [Moles/volume] in Serum or Plasma 2024-09-23 07:45:39 106 mEq/L F 99.0-109.0 Aspartate aminotransferase [Enzymatic activity/volume] in Serum or Plasma 2024-09-23 03:47:34 12 U/L F 0.0-33.0 Alanine aminotransferase [Enzymatic activity/volume] in Serum or Plasma 2024-09-23 03:47:34 11 U/L F 10.0-49.0 Chloride [Moles/volume] in Serum or Plasma 2024-08-25 15:58:43 103 mEq/L F 99.0-109.0 Chloride [Moles/volume] in Serum or Plasma 2024-08-25 15:58:43 103 mEq/L F 99.0-109.0 Aspartate aminotransferase [Enzymatic activity/volume] in Serum or Plasma 2024-08-25 13:21:16 11 U/L F 0.0-33.0 Alanine aminotransferase [Enzymatic activity/volume] in Serum or Plasma 2024-08-25 13:21:16 10 U/L F 10.0-49.0 Aspartate aminotransferase [Enzymatic activity/volume] in Serum or Plasma 2024-08-25 13:21:16 11 U/L F 0.0-33.0 Alanine aminotransferase [Enzymatic activity/volume] in Serum or Plasma 2024-08-25 13:21:16 10 U/L F 10.0-49.0 Chloride [Moles/volume] in Serum or Plasma 2024-07-22 06:21:22 100 mEq/L F 99.0-109.0 Aspartate aminotransferase [Enzymatic activity/volume] in Serum or Plasma 2024-07-21 21:09:21 12 U/L F 0.0-33.0 Alanine aminotransferase [Enzymatic activity/volume] in Serum or Plasma 2024-07-21 21:09:21 10 U/L F 10.0-49.0 Chloride [Moles/volume] in Serum or Plasma 2024-03-27 06:26:32 106 mEq/L F 99.0-109.0 Chloride [Moles/volume] in Serum or Plasma 2024-03-27 06:26:32 106 mEq/L F 99.0-109.0 Aluminum [Mass/volume] in Serum or Plasma 2024-03-26 17:26:44 10 ug/L F 0.0-9.0 Aluminum [Mass/volume] in Serum or Plasma 2024-03-26 17:26:44 10 ug/L F 0.0-9.0 Alanine aminotransferase [Enzymatic activity/volume] in Serum or Plasma 2024-03-26 17:02:40 14 U/L F 10.0-49.0 Aspartate aminotransferase [Enzymatic activity/volume] in Serum or Plasma 2024-03-26 17:02:40 13 U/L F 0.0-33.0 Aspartate aminotransferase [Enzymatic activity/volume] in Serum or Plasma 2024-03-26 17:02:40 13 U/L F 0.0-33.0 Alanine aminotransferase [Enzymatic activity/volume] in Serum or Plasma 2024-03-26 17:02:40 14 U/L F 10.0-49.0 Alanine aminotransferase [Enzymatic activity/volume] in Serum or Plasma 2023-03-20 04:14:23 12 U/L F 10.0-49.0 Aspartate aminotransferase [Enzymatic activity/volume] in Serum or Plasma 2023-03-20 04:14:23 13 U/L F 0.0-33.0 Chloride [Moles/volume] in Serum or Plasma 2023-03-20 04:14:23 111 mEq/L F 99.0-109.0 Aspartate aminotransferase [Enzymatic activity/volume] in Serum or Plasma 2023-01-17 21:24:22 17 U/L F 0.0-33.0 Chloride [Moles/volume] in Serum or Plasma 2023-01-17 21:24:22 106 mEq/L F 99.0-109.0 Alanine aminotransferase [Enzymatic activity/volume] in Serum or Plasma 2023-01-17 21:24:22 12 U/L F 10.0-49.0 Aluminum [Mass/volume] in Serum or Plasma 2022-12-20 16:23:45 10 ug/L F 0.0-9.0 Aluminum [Mass/volume] in Serum or Plasma 2022-12-20 16:23:45 10 ug/L F 0.0-9.0 Chloride [Moles/volume] in Serum or Plasma 2022-12-20 14:15:57 103 mEq/L F 99.0-109.0 Alanine aminotransferase [Enzymatic activity/volume] in Serum or Plasma 2022-12-20 14:15:57 13 U/L F 10.0-49.0 Aspartate aminotransferase [Enzymatic activity/volume] in Serum or Plasma 2022-12-20 14:15:57 14 U/L F 0.0-33.0 Alanine aminotransferase [Enzymatic activity/volume] in Serum or Plasma 2022-12-20 14:15:57 13 U/L F 10.0-49.0 Aspartate aminotransferase [Enzymatic activity/volume] in Serum or Plasma 2022-12-20 14:15:57 14 U/L F 0.0-33.0 Chloride [Moles/volume] in Serum or Plasma 2022-12-20 14:15:57 103 mEq/L F 99.0-109.0 Chloride [Moles/volume] in Serum or Plasma 2022-11-15 15:07:57 105 mEq/L F 99.0-109.0 Alanine aminotransferase [Enzymatic activity/volume] in Serum or Plasma 2022-11-15 15:07:57 14 U/L F 10.0-49.0 Aspartate aminotransferase [Enzymatic activity/volume] in Serum or Plasma 2022-11-15 15:07:57 15 U/L F 0.0-33.0 Alanine aminotransferase [Enzymatic activity/volume] in Serum or Plasma 2022-11-15 15:07:57 14 U/L F 10.0-49.0 Aspartate aminotransferase [Enzymatic activity/volume] in Serum or Plasma 2022-11-15 15:07:57 15 U/L F 0.0-33.0 Chloride [Moles/volume] in Serum or Plasma 2022-11-15 15:07:57 105 mEq/L F 99.0-109.0 Aspartate aminotransferase [Enzymatic activity/volume] in Serum or Plasma 2022-10-18 16:22:50 15 U/L F 0.0-33.0 Alanine aminotransferase [Enzymatic activity/volume] in Serum or Plasma 2022-10-18 16:22:50 14 U/L F 10.0-49.0 Chloride [Moles/volume] in Serum or Plasma 2022-10-18 16:22:50 104 mEq/L F 99.0-109.0 InfectionVaccination Description Draw Date Result/Unit Status Ref Range Result Comments Basophils/100 leukocytes in Blood by Automated count 2024-11-24 16:16:18 0.6 % F Neutrophils/100 leukocytes in Blood by Automated count 2024-11-24 16:16:18 63.1 % F Monocytes/100 leukocytes in Blood by Automated count 2024-11-24 16:16:18 8 % F Lymphocytes/100 leukocytes in Blood by Automated count 2024-11-24 16:16:18 25.5 % F Eosinophils/100 leukocytes in Blood by Automated count 2024-11-24 16:16:18 2.8 % F Eosinophils [#/volume] in Blood by Automated count 2024-11-24 16:16:18 178 Cells/uL F 0.0-700.0 Basophils [#/volume] in Blood by Automated count 2024-11-24 16:16:18 38 Cells/uL F 0.0-400.0 Leukocytes [#/volume] in Blood by Automated count 2024-11-24 16:16:18 6.4 x 10^3 cells/uL F 4.0-11.0 Monocytes [#/volume] in Blood by Automated count 2024-11-24 16:16:18 509 Cells/uL F 0.0-1100.0 Neutrophils [#/volume] in Blood by Automated count 2024-11-24 16:16:18 4013 Cells/uL F 2000.0-8800. 0 Lymphocytes [#/volume] in Blood by Automated count 2024-11-24 16:16:16 1622 Cells/uL F 620.0-3660.0 Bacteria identified in Blood by [facility] culture 2024-11-10 14:55:17 F MICROBIOLOGY - FINAL REPORT REPORT OF: 11/10/24 10:02 Bacteria identified in Blood by [facility] culture 2024-11-10 14:55:17 F MICROBIOLOGY - FINAL REPORT REPORT OF: 11/10/24 10:02 Bacteria identified in Blood by [facility] culture 2024-11-09 14:53:25 P MICROBIOLOGY - PRELIMINARY REPORT OF: 11/10/24 08:56 Bacteria identified in Blood by [facility] culture 2024-11-09 14:53:25 P MICROBIOLOGY - PRELIMINARY REPORT OF: 11/10/24 08:56 Bacteria identified in Blood by [facility] culture 2024-11-09 14:53:25 P MICROBIOLOGY - PRELIMINARY REPORT OF: 11/09/24 09:54 Bacteria identified in Blood by [facility] culture 2024-11-09 14:53:25 P MICROBIOLOGY - PRELIMINARY REPORT OF: 11/09/24 09:54 Bacteria identified in Blood by [facility] culture 2024-11-08 14:51:33 P MICROBIOLOGY - PRELIMINARY REPORT OF: 11/08/24 09:52 Bacteria identified in Blood by [facility] culture 2024-11-08 14:51:33 P MICROBIOLOGY - PRELIMINARY REPORT OF: 11/08/24 09:52 Bacteria identified in Blood by [facility] culture 2024-11-07 15:00:30 P MICROBIOLOGY - PRELIMINARY REPORT OF: 11/07/24 10:01 Bacteria identified in Blood by [facility] culture 2024-11-07 15:00:30 P MICROBIOLOGY - PRELIMINARY REPORT OF: 11/07/24 10:01 Bacteria identified in Blood by [facility] culture 2024-11-06 14:58:15 P MICROBIOLOGY - PRELIMINARY REPORT OF: 11/06/24 10:00 Bacteria identified in Blood by [facility] culture 2024-11-06 14:58:15 P MICROBIOLOGY - PRELIMINARY REPORT OF: 11/06/24 10:00 Bacteria identified in Blood by [facility] culture 2024-11-05 18:51:48 P MICROBIOLOGY - PRELIMINARY REPORT OF: 11/05/24 01:53 Bacteria identified in Blood by [facility] culture 2024-11-05 18:51:48 P MICROBIOLOGY - PRELIMINARY REPORT OF: 11/05/24 01:53 Basophils/100 leukocytes in Blood by Automated count 2024-10-25 03:10:57 0.6 % F Neutrophils/100 leukocytes in Blood by Automated count 2024-10-25 03:10:57 72.8 % F Lymphocytes/100 leukocytes in Blood by Automated count 2024-10-25 03:10:57 18 % F Eosinophils/100 leukocytes in Blood by Automated count 2024-10-25 03:10:57 1.6 % F Monocytes/100 leukocytes in Blood by Automated count 2024-10-25 03:10:57 7 % F Leukocytes [#/volume] in Blood by Automated count 2024-10-25 03:10:57 9.2 x 10^3 cells/uL F 4.0-11.0 Neutrophils [#/volume] in Blood by Automated count 2024-10-25 03:10:57 6719 Cells/uL F 2000.0-8800. 0 Lymphocytes [#/volume] in Blood by Automated count 2024-10-25 03:10:57 1661 Cells/uL F 620.0-3660.0 Basophils [#/volume] in Blood by Automated count 2024-10-25 03:10:57 55 Cells/uL F 0.0-400.0 Monocytes [#/volume] in Blood by Automated count 2024-10-25 03:10:57 646 Cells/uL F 0.0-1100.0 Eosinophils [#/volume] in Blood by Automated count 2024-10-25 03:10:57 148 Cells/uL F 0.0-700.0 Lymphocytes/100 leukocytes in Blood by Automated count 2024-09-23 03:53:12 27.2 % F Eosinophils/100 leukocytes in Blood by Automated count 2024-09-23 03:53:12 2.6 % F Neutrophils/100 leukocytes in Blood by Automated count 2024-09-23 03:53:12 63.2 % F Eosinophils [#/volume] in Blood by Automated count 2024-09-23 03:53:12 140 Cells/uL F 0.0-700.0 Monocytes [#/volume] in Blood by Automated count 2024-09-23 03:53:12 350 Cells/uL F 0.0-1100.0 Neutrophils [#/volume] in Blood by Automated count 2024-09-23 03:53:12 3400 Cells/uL F 2000.0-8800. 0 Lymphocytes [#/volume] in Blood by Automated count 2024-09-23 03:53:12 1463 Cells/uL F 620.0-3660.0 Basophils/100 leukocytes in Blood by Automated count 2024-09-23 03:53:12 0.6 % F Monocytes/100 leukocytes in Blood by Automated count 2024-09-23 03:53:12 6.5 % F Leukocytes [#/volume] in Blood by Automated count 2024-09-23 03:53:12 5.4 x 10^3 cells/uL F 4.0-11.0 Basophils [#/volume] in Blood by Automated count 2024-09-23 03:53:12 32 Cells/uL F 0.0-400.0 Neutrophils/100 leukocytes in Blood by Automated count 2024-08-25 13:26:13 60.6 % F Lymphocytes/100 leukocytes in Blood by Automated count 2024-08-25 13:26:13 27.9 % F Neutrophils [#/volume] in Blood by Automated count 2024-08-25 13:26:13 3678 Cells/uL F 2000.0-8800. 0 Lymphocytes [#/volume] in Blood by Automated count 2024-08-25 13:26:13 1694 Cells/uL F 620.0-3660.0 Eosinophils [#/volume] in Blood by Automated count 2024-08-25 13:26:13 170 Cells/uL F 0.0-700.0 Neutrophils/100 leukocytes in Blood by Automated count 2024-08-25 13:26:13 60.6 % F Lymphocytes/100 leukocytes in Blood by Automated count 2024-08-25 13:26:13 27.9 % F Eosinophils [#/volume] in Blood by Automated count 2024-08-25 13:26:13 170 Cells/uL F 0.0-700.0 Lymphocytes [#/volume] in Blood by Automated count 2024-08-25 13:26:13 1694 Cells/uL F 620.0-3660.0 Neutrophils [#/volume] in Blood by Automated count 2024-08-25 13:26:13 3678 Cells/uL F 2000.0-8800. 0 Basophils/100 leukocytes in Blood by Automated count 2024-08-25 13:26:12 0.4 % F Monocytes/100 leukocytes in Blood by Automated count 2024-08-25 13:26:12 8.3 % F Eosinophils/100 leukocytes in Blood by Automated count 2024-08-25 13:26:12 2.8 % F Leukocytes [#/volume] in Blood by Automated count 2024-08-25 13:26:12 6.1 x 10^3 cells/uL F 4.0-11.0 Monocytes [#/volume] in Blood by Automated count 2024-08-25 13:26:12 504 Cells/uL F 0.0-1100.0 Basophils [#/volume] in Blood by Automated count 2024-08-25 13:26:12 24 Cells/uL F 0.0-400.0 Eosinophils/100 leukocytes in Blood by Automated count 2024-08-25 13:26:12 2.8 % F Basophils [#/volume] in Blood by Automated count 2024-08-25 13:26:12 24 Cells/uL F 0.0-400.0 Leukocytes [#/volume] in Blood by Automated count 2024-08-25 13:26:12 6.1 x 10'3 cells/uL F 4.0-11.0 Basophils/100 leukocytes in Blood by Automated count 2024-08-25 13:26:12 0.4 % F Monocytes/100 leukocytes in Blood by Automated count 2024-08-25 13:26:12 8.3 % F Monocytes [#/volume] in Blood by Automated count 2024-08-25 13:26:12 504 Cells/uL F 0.0-1100.0 Basophils/100 leukocytes in Blood by Automated count 2024-07-21 22:35:14 1 % F Lymphocytes/100 leukocytes in Blood by Automated count 2024-07-21 22:35:14 28.8 % F Monocytes/100 leukocytes in Blood by Automated count 2024-07-21 22:35:14 7.3 % F Eosinophils/100 leukocytes in Blood by Automated count 2024-07-21 22:35:14 2.5 % F Lymphocytes [#/volume] in Blood by Automated count 2024-07-21 22:35:14 1630 Cell/uL F 620.0-3660.0 Neutrophils [#/volume] in Blood by Automated count 2024-07-21 22:35:14 3419 Cell/uL F 2000.0-8800. 0 Neutrophils/100 leukocytes in Blood by Automated count 2024-07-21 22:35:14 60.4 % F Leukocytes [#/volume] in Blood by Automated count 2024-07-21 22:35:14 5.7 x 10'3 cells/uL F 4.0-11.0 Basophils [#/volume] in Blood by Automated count 2024-07-21 22:35:14 57 Cell/uL F 0.0-400.0 Eosinophils [#/volume] in Blood by Automated count 2024-07-21 22:35:14 142 Cell/uL F 0.0-700.0 Monocytes [#/volume] in Blood by Automated count 2024-07-21 22:35:14 413 Cell/uL F 0.0-1100.0 Basophils/100 leukocytes in Blood by Automated count 2024-03-27 00:49:35 0.7 % F Neutrophils/100 leukocytes in Blood by Automated count 2024-03-27 00:49:35 59.4 % F Monocytes/100 leukocytes in Blood by Automated count 2024-03-27 00:49:35 8.2 % F Eosinophils/100 leukocytes in Blood by Automated count 2024-03-27 00:49:35 2.3 % F Lymphocytes/100 leukocytes in Blood by Automated count 2024-03-27 00:49:35 29.4 % F Leukocytes [#/volume] in Blood by Automated count 2024-03-27 00:49:35 5.8 x 10^3 cells/uL F 4.0-11.0 Monocytes [#/volume] in Blood by Automated count 2024-03-27 00:49:35 478 Cell/uL F 0.0-1100.0 Neutrophils [#/volume] in Blood by Automated count 2024-03-27 00:49:35 3463 Cell/uL F 2000.0-8800. 0 Lymphocytes [#/volume] in Blood by Automated count 2024-03-27 00:49:35 1714 Cell/uL F 620.0-3660.0 Basophils [#/volume] in Blood by Automated count 2024-03-27 00:49:35 41 Cell/uL F 0.0-400.0 Eosinophils [#/volume] in Blood by Automated count 2024-03-27 00:49:35 134 Cell/uL F 0.0-700.0 Lymphocytes/100 leukocytes in Blood by Automated count 2024-03-27 00:49:35 29.4 % F Basophils [#/volume] in Blood by Automated count 2024-03-27 00:49:35 41 Cell/uL F 0.0-400.0 Neutrophils [#/volume] in Blood by Automated count 2024-03-27 00:49:35 3463 Cell/uL F 2000.0-8800. 0 Neutrophils/100 leukocytes in Blood by Automated count 2024-03-27 00:49:35 59.4 % F Basophils/100 leukocytes in Blood by Automated count 2024-03-27 00:49:35 0.7 % F Monocytes/100 leukocytes in Blood by Automated count 2024-03-27 00:49:35 8.2 % F Eosinophils/100 leukocytes in Blood by Automated count 2024-03-27 00:49:35 2.3 % F Leukocytes [#/volume] in Blood by Automated count 2024-03-27 00:49:35 5.8 x 10'3 cells/uL F 4.0-11.0 Eosinophils [#/volume] in Blood by Automated count 2024-03-27 00:49:35 134 Cell/uL F 0.0-700.0 Monocytes [#/volume] in Blood by Automated count 2024-03-27 00:49:35 478 Cell/uL F 0.0-1100.0 Lymphocytes [#/volume] in Blood by Automated count 2024-03-27 00:49:35 1714 Cell/uL F 620.0-3660.0 Neutrophils/100 leukocytes in Blood by Automated count 2023-03-20 04:48:20 67.8 % F Lymphocytes/100 leukocytes in Blood by Automated count 2023-03-20 04:48:20 24.3 % F Leukocytes [#/volume] in Blood by Automated count 2023-03-20 04:48:20 6.2 x 10^3 cells/uL F 4.5-11.0 Basophils [#/volume] in Blood by Automated count 2023-03-20 04:48:20 31.05 Cell/uL F 0.0-400.0 Eosinophils [#/volume] in Blood by Automated count 2023-03-20 04:48:20 117.99 Cell/uL F 0.0-700.0 Neutrophils [#/volume] in Blood by Automated count 2023-03-20 04:48:20 4210.38 Cell/uL F 2000.0-8800. 0 Basophils/100 leukocytes in Blood by Automated count 2023-03-20 04:48:20 0.5 % F Monocytes/100 leukocytes in Blood by Automated count 2023-03-20 04:48:20 5.5 % F Eosinophils/100 leukocytes in Blood by Automated count 2023-03-20 04:48:20 1.9 % F Monocytes [#/volume] in Blood by Automated count 2023-03-20 04:48:20 341.55 Cell/uL F 0.0-1100.0 Lymphocytes [#/volume] in Blood by Automated count 2023-03-20 04:48:20 1509.03 Cell/uL F 1100.0-4800. 0 Neutrophils/100 leukocytes in Blood by Automated count 2023-01-17 23:27:22 60.2 % F Monocytes [#/volume] in Blood by Automated count 2023-01-17 23:27:22 470.64 Cell/uL F 0.0-1100.0 Basophils/100 leukocytes in Blood by Automated count 2023-01-17 23:27:22 0.8 % F Lymphocytes [#/volume] in Blood by Automated count 2023-01-17 23:27:22 1888.92 Cell/uL F 1100.0-4800. 0 Lymphocytes/100 leukocytes in Blood by Automated count 2023-01-17 23:27:22 29.7 % F Monocytes/100 leukocytes in Blood by Automated count 2023-01-17 23:27:22 7.4 % F Eosinophils/100 leukocytes in Blood by Automated count 2023-01-17 23:27:22 1.9 % F Leukocytes [#/volume] in Blood by Automated count 2023-01-17 23:27:22 6.4 x 10^3 cells/uL F 4.5-11.0 Basophils [#/volume] in Blood by Automated count 2023-01-17 23:27:22 50.88 Cell/uL F 0.0-400.0 Eosinophils [#/volume] in Blood by Automated count 2023-01-17 23:27:22 120.84 Cell/uL F 0.0-700.0 Neutrophils [#/volume] in Blood by Automated count 2023-01-17 23:27:22 3828.72 Cell/uL F 2000.0-8800. 0 Neutrophils/100 leukocytes in Blood by Automated count 2022-12-20 13:59:00 49.3 % F Basophils/100 leukocytes in Blood by Automated count 2022-12-20 13:59:00 0.7 % F Lymphocytes/100 leukocytes in Blood by Automated count 2022-12-20 13:59:00 38.4 % F Monocytes/100 leukocytes in Blood by Automated count 2022-12-20 13:59:00 8.9 % F Eosinophils/100 leukocytes in Blood by Automated count 2022-12-20 13:59:00 2.6 % F Leukocytes [#/volume] in Blood by Automated count 2022-12-20 13:59:00 6.6 x 10^3 cells/uL F 4.5-11.0 Neutrophils [#/volume] in Blood by Automated count 2022-12-20 13:59:00 3229.15 Cell/uL F 2000.0-8800. 0 Monocytes [#/volume] in Blood by Automated count 2022-12-20 13:59:00 582.95 Cell/uL F 0.0-1100.0 Basophils [#/volume] in Blood by Automated count 2022-12-20 13:59:00 45.85 Cell/uL F 0.0-400.0 Lymphocytes [#/volume] in Blood by Automated count 2022-12-20 13:59:00 2515.2 Cell/uL F 1100.0-4800. 0 Eosinophils [#/volume] in Blood by Automated count 2022-12-20 13:59:00 170.3 Cell/uL F 0.0-700.0 Neutrophils/100 leukocytes in Blood by Automated count 2022-12-20 13:59:00 49.3 % F Leukocytes [#/volume] in Blood by Automated count 2022-12-20 13:59:00 6.6 x 10^3 cells/uL F 4.5-11.0 Lymphocytes [#/volume] in Blood by Automated count 2022-12-20 13:59:00 2515.2 Cell/uL F 1100.0-4800. 0 Basophils/100 leukocytes in Blood by Automated count 2022-12-20 13:59:00 0.7 % F Lymphocytes/100 leukocytes in Blood by Automated count 2022-12-20 13:59:00 38.4 % F Eosinophils/100 leukocytes in Blood by Automated count 2022-12-20 13:59:00 2.6 % F Monocytes/100 leukocytes in Blood by Automated count 2022-12-20 13:59:00 8.9 % F Eosinophils [#/volume] in Blood by Automated count 2022-12-20 13:59:00 170.3 Cell/uL F 0.0-700.0 Monocytes [#/volume] in Blood by Automated count 2022-12-20 13:59:00 582.95 Cell/uL F 0.0-1100.0 Basophils [#/volume] in Blood by Automated count 2022-12-20 13:59:00 45.85 Cell/uL F 0.0-400.0 Neutrophils [#/volume] in Blood by Automated count 2022-12-20 13:59:00 3229.15 Cell/uL F 2000.0-8800. 0 Neutrophils/100 leukocytes in Blood by Automated count 2022-11-15 15:17:49 61.6 % F Basophils/100 leukocytes in Blood by Automated count 2022-11-15 15:17:49 0.6 % F Lymphocytes/100 leukocytes in Blood by Automated count 2022-11-15 15:17:49 26.4 % F Monocytes/100 leukocytes in Blood by Automated count 2022-11-15 15:17:49 8.4 % F Eosinophils/100 leukocytes in Blood by Automated count 2022-11-15 15:17:49 3.1 % F Leukocytes [#/volume] in Blood by Automated count 2022-11-15 15:17:49 5.3 x 10^3 cells/uL F 4.5-11.0 Lymphocytes [#/volume] in Blood by Automated count 2022-11-15 15:17:49 1407.12 Cell/uL F 1100.0-4800. 0 Neutrophils [#/volume] in Blood by Automated count 2022-11-15 15:17:49 3283.28 Cell/uL F 2000.0-8800. 0 Monocytes [#/volume] in Blood by Automated count 2022-11-15 15:17:49 447.72 Cell/uL F 0.0-1100.0 Basophils [#/volume] in Blood by Automated count 2022-11-15 15:17:49 31.98 Cell/uL F 0.0-400.0 Eosinophils [#/volume] in Blood by Automated count 2022-11-15 15:17:49 165.23 Cell/uL F 0.0-700.0 Monocytes/100 leukocytes in Blood by Automated count 2022-11-15 15:17:49 8.4 % F Basophils [#/volume] in Blood by Automated count 2022-11-15 15:17:49 31.98 Cell/uL F 0.0-400.0 Basophils/100 leukocytes in Blood by Automated count 2022-11-15 15:17:49 0.6 % F Neutrophils/100 leukocytes in Blood by Automated count 2022-11-15 15:17:49 61.6 % F Lymphocytes/100 leukocytes in Blood by Automated count 2022-11-15 15:17:49 26.4 % F Eosinophils/100 leukocytes in Blood by Automated count 2022-11-15 15:17:49 3.1 % F Leukocytes [#/volume] in Blood by Automated count 2022-11-15 15:17:49 5.3 x 10^3 cells/uL F 4.5-11.0 Eosinophils [#/volume] in Blood by Automated count 2022-11-15 15:17:49 165.23 Cell/uL F 0.0-700.0 Monocytes [#/volume] in Blood by Automated count 2022-11-15 15:17:49 447.72 Cell/uL F 0.0-1100.0 Lymphocytes [#/volume] in Blood by Automated count 2022-11-15 15:17:49 1407.12 Cell/uL F 1100.0-4800. 0 Neutrophils [#/volume] in Blood by Automated count 2022-11-15 15:17:49 3283.28 Cell/uL F 2000.0-8800. 0 Basophils/100 leukocytes in Blood by Automated count 2022-10-18 17:25:40 0.7 % F Monocytes/100 leukocytes in Blood by Automated count 2022-10-18 17:25:40 9.3 % F Neutrophils/100 leukocytes in Blood by Automated count 2022-10-18 17:25:40 57.5 % F Eosinophils/100 leukocytes in Blood by Automated count 2022-10-18 17:25:40 1.8 % F Eosinophils [#/volume] in Blood by Automated count 2022-10-18 17:25:40 125.46 Cell/uL F 0.0-700.0 Monocytes [#/volume] in Blood by Automated count 2022-10-18 17:25:40 648.21 Cell/uL F 0.0-1100.0 Neutrophils [#/volume] in Blood by Automated count 2022-10-18 17:25:40 4007.75 Cell/uL F 2000.0-8800. 0 Lymphocytes/100 leukocytes in Blood by Automated count 2022-10-18 17:25:38 30.7 % F Leukocytes [#/volume] in Blood by Automated count 2022-10-18 17:25:38 7 x 10^3 cells/uL F 4.5-11.0 Lymphocytes [#/volume] in Blood by Automated count 2022-10-18 17:25:38 2139.79 Cell/uL F 1100.0-4800. 0 Basophils [#/volume] in Blood by Automated count 2022-10-18 17:25:38 48.79 Cell/uL F 0.0-400.0 MineralBone Disorder Description Draw Date Result/Unit Status Ref Range Result Comments Alkaline phosphatase [Enzymatic activity/volume] in Serum or Plasma 2024-11-24 22:10:19 79 U/L F 46.0-116.0 CA CORRECTED 2024-11-12 09:04:11 8 mg/dL F CA/PHOS PRODUCT 2024-11-12 09:02:21 39.8 Calc F 21.0-53.0 CA*PO4 CORRCTD 2024-11-12 09:02:21 40.6 Calc F 21.0-53.0 Phosphate [Mass/volume] in Serum or Plasma 2024-11-12 06:59:08 5.1 mg/dL F 2.4-5.1 Calcium [Mass/volume] in Serum or Plasma 2024-11-12 06:59:08 7.8 mg/dL F 8.7-10.4 Parathyrin.intact [Mass/volume] in Serum or Plasma 2024-11-11 03:19:23 166 pg/mL F 18.0-80.0 Alkaline phosphatase [Enzymatic activity/volume] in Serum or Plasma 2024-10-24 23:13:24 92 U/L F 46.0-116.0 Parathyrin.intact [Mass/volume] in Serum or Plasma 2024-10-07 15:50:59 141 pg/mL F 18.0-80.0 Parathyrin.intact [Mass/volume] in Serum or Plasma 2024-10-07 15:50:59 141 pg/mL F 18.0-80.0 CA CORRECTED 2024-10-07 09:52:12 8.3 mg/dL F CA CORRECTED 2024-10-07 09:52:12 8.3 mg/dL F CA/PHOS PRODUCT 2024-10-07 09:50:21 39.8 Calc F 21.0-53.0 CA*PO4 CORRCTD 2024-10-07 09:50:21 39.8 Calc F 21.0-53.0 CA/PHOS PRODUCT 2024-10-07 09:50:21 39.8 Calc F 21.0-53.0 CA*PO4 CORRCTD 2024-10-07 09:50:21 39.8 Calc F 21.0-53.0 Calcium [Mass/volume] in Serum or Plasma 2024-10-07 08:39:52 8.3 mg/dL F 8.7-10.4 Calcium [Mass/volume] in Serum or Plasma 2024-10-07 08:39:52 8.3 mg/dL F 8.7-10.4 Phosphate [Mass/volume] in Serum or Plasma 2024-10-07 08:39:51 4.8 mg/dL F 2.4-5.1 Phosphate [Mass/volume] in Serum or Plasma 2024-10-07 08:39:51 4.8 mg/dL F 2.4-5.1 Alkaline phosphatase [Enzymatic activity/volume] in Serum or Plasma 2024-09-23 03:47:34 71 U/L F 46.0-116.0 CA CORRECTED 2024-09-09 07:41:45 8.9 mg/dL F CA CORRECTED 2024-09-09 07:41:45 8.9 mg/dL F CA/PHOS PRODUCT 2024-09-09 07:40:44 32 Calc F 21.0-53.0 CA*PO4 CORRCTD 2024-09-09 07:40:44 32 Calc F 21.0-53.0 CA/PHOS PRODUCT 2024-09-09 07:40:44 32 Calc F 21.0-53.0 CA*PO4 CORRCTD 2024-09-09 07:40:44 32 Calc F 21.0-53.0 Calcium [Mass/volume] in Serum or Plasma 2024-09-09 07:34:06 8.9 mg/dL F 8.7-10.4 Calcium [Mass/volume] in Serum or Plasma 2024-09-09 07:34:06 8.9 mg/dL F 8.7-10.4 Phosphate [Mass/volume] in Serum or Plasma 2024-09-08 18:44:16 3.6 mg/dL F 2.4-5.1 Phosphate [Mass/volume] in Serum or Plasma 2024-09-08 18:44:16 3.6 mg/dL F 2.4-5.1 Parathyrin.intact [Mass/volume] in Serum or Plasma 2024-09-08 18:30:15 110 pg/mL F 18.0-80.0 Parathyrin.intact [Mass/volume] in Serum or Plasma 2024-09-08 18:30:15 110 pg/mL F 18.0-80.0 Alkaline phosphatase [Enzymatic activity/volume] in Serum or Plasma 2024-08-25 13:21:16 70 U/L F 46.0-116.0 Alkaline phosphatase [Enzymatic activity/volume] in Serum or Plasma 2024-08-25 13:21:16 70 U/L F 46.0-116.0 CA CORRECTED 2024-08-13 07:27:12 8 mg/dL F CA/PHOS PRODUCT 2024-08-13 07:12:55 41.6 Calc F 21.0-53.0 CA*PO4 CORRCTD 2024-08-13 07:12:55 41.6 Calc F 21.0-53.0 Calcium [Mass/volume] in Serum or Plasma 2024-08-13 07:09:53 8 mg/dL F 8.7-10.4 Phosphate [Mass/volume] in Serum or Plasma 2024-08-12 14:20:26 5.2 mg/dL F 2.4-5.1 Parathyrin.intact [Mass/volume] in Serum or Plasma 2024-08-11 18:05:24 130 pg/mL F 18.0-80.0 Alkaline phosphatase [Enzymatic activity/volume] in Serum or Plasma 2024-07-21 21:09:21 64 U/L F 46.0-116.0 CA CORRECTED 2024-07-07 20:31:06 8.6 mg/dL F CA/PHOS PRODUCT 2024-07-07 20:28:18 46.8 Calc F 21.0-53.0 CA*PO4 CORRCTD 2024-07-07 20:28:18 47.3 Calc F 21.0-53.0 Calcium [Mass/volume] in Serum or Plasma 2024-07-07 20:26:35 8.5 mg/dL F 8.7-10.4 Phosphate [Mass/volume] in Serum or Plasma 2024-07-07 14:44:18 5.5 mg/dL F 2.4-5.1 Parathyrin.intact [Mass/volume] in Serum or Plasma 2024-07-07 14:22:18 162 pg/mL F 18.0-80.0 Alkaline phosphatase [Enzymatic activity/volume] in Serum or Plasma 2024-03-26 17:02:40 73 U/L F 46.0-116.0 Alkaline phosphatase [Enzymatic activity/volume] in Serum or Plasma 2024-03-26 17:02:40 73 U/L F 46.0-116.0 Alkaline phosphatase [Enzymatic activity/volume] in Serum or Plasma 2023-03-20 04:14:23 76 U/L F 46.0-116.0 Alkaline phosphatase [Enzymatic activity/volume] in Serum or Plasma 2023-01-17 21:24:22 76 U/L F 46.0-116.0 Alkaline phosphatase [Enzymatic activity/volume] in Serum or Plasma 2022-12-20 14:15:57 72 U/L F 46.0-116.0 Alkaline phosphatase [Enzymatic activity/volume] in Serum or Plasma 2022-12-20 14:15:57 72 U/L F 46.0-116.0 Alkaline phosphatase [Enzymatic activity/volume] in Serum or Plasma 2022-11-15 15:07:57 71 U/L F 46.0-116.0 Alkaline phosphatase [Enzymatic activity/volume] in Serum or Plasma 2022-11-15 15:07:57 71 U/L F 46.0-116.0 Alkaline phosphatase [Enzymatic activity/volume] in Serum or Plasma 2022-10-18 16:22:50 64 U/L F 46.0-116.0 CA/PHOS PRODUCT CA CORRECTED Phosphate [Mass/volume] in Serum or Plasma Calcium [Mass/volume] in Serum or Plasma CA*PO4 CORRCTD Parathyrin.intact [Mass/volume] in Serum or Plasma Nutrition Description Draw Date Result/Unit Status Ref Range Result Comments Potassium [Moles/volume] in Serum or Plasma 2024-11-25 07:52:12 6.8 mEq/L F 3.5-5.5 GLOBULIN 2024-11-24 22:11:07 1.9 g/dL F 0.9-5.0 A/G RATIO 2024-11-24 22:11:07 2.1 Calc F 1.0-2.5 Albumin [Mass/volume] in Serum or Plasma by Bromocresol green (BCG) dye binding method 2024-11-24 22:10:19 4 g/dL F 3.4-4.8 Protein [Mass/volume] in Serum or Plasma 2024-11-24 22:10:19 5.9 g/dL F 5.7-8.2 Bicarbonate [Moles/volume] in Serum or Plasma 2024-11-24 22:10:19 24 mEq/L F 20.0-31.0 Lactate dehydrogenase [Enzymatic activity/volume] in Serum or Plasma 2024-11-24 22:10:19 174 U/L F 120.0-246.0 Potassium [Moles/volume] in Serum or Plasma 2024-11-12 06:59:08 5.4 mEq/L F 3.5-5.5 Potassium [Moles/volume] in Serum or Plasma 2024-10-25 06:22:08 6.1 mEq/L F 3.5-5.5 A/G RATIO 2024-10-24 23:14:05 1.6 Calc F 1.0-2.5 GLOBULIN 2024-10-24 23:14:05 2.4 g/dL F 0.9-5.0 Albumin [Mass/volume] in Serum or Plasma by Bromocresol green (BCG) dye binding method 2024-10-24 23:13:24 3.8 g/dL F 3.4-4.8 Bicarbonate [Moles/volume] in Serum or Plasma 2024-10-24 23:13:24 23 mEq/L F 20.0-31.0 Lactate dehydrogenase [Enzymatic activity/volume] in Serum or Plasma 2024-10-24 23:13:24 181 U/L F 120.0-246.0 Protein [Mass/volume] in Serum or Plasma 2024-10-24 23:13:24 6.2 g/dL F 5.7-8.2 Potassium [Moles/volume] in Serum or Plasma 2024-10-07 08:39:52 5.6 mEq/L F 3.5-5.5 Potassium [Moles/volume] in Serum or Plasma 2024-10-07 08:39:52 5.6 mEq/L F 3.5-5.5 Potassium [Moles/volume] in Serum or Plasma 2024-09-23 07:45:39 6.1 mEq/L F 3.5-5.5 GLOBULIN 2024-09-23 03:48:51 1.9 g/dL F 0.9-5.0 A/G RATIO 2024-09-23 03:48:51 2.1 Calc F 1.0-2.5 Albumin [Mass/volume] in Serum or Plasma by Bromocresol green (BCG) dye binding method 2024-09-23 03:47:34 4 g/dL F 3.4-4.8 Protein [Mass/volume] in Serum or Plasma 2024-09-23 03:47:34 5.9 g/dL F 5.7-8.2 Bicarbonate [Moles/volume] in Serum or Plasma 2024-09-23 03:47:34 25 mEq/L F 20.0-31.0 Lactate dehydrogenase [Enzymatic activity/volume] in Serum or Plasma 2024-09-23 03:47:34 153 U/L F 120.0-246.0 Potassium [Moles/volume] in Serum or Plasma 2024-09-09 07:34:05 5.7 mEq/L F 3.5-5.5 Potassium [Moles/volume] in Serum or Plasma 2024-09-09 07:34:05 5.7 mEq/L F 3.5-5.5 Potassium [Moles/volume] in Serum or Plasma 2024-08-25 15:58:43 6.2 mEq/L F 3.5-5.5 Potassium [Moles/volume] in Serum or Plasma 2024-08-25 15:58:43 6.2 mEq/L F 3.5-5.5 A/G RATIO 2024-08-25 13:21:30 2 Calc F 1.0-2.5 GLOBULIN 2024-08-25 13:21:30 2 g/dL F 0.9-5.0 A/G RATIO 2024-08-25 13:21:30 2 Calc F 1.0-2.5 GLOBULIN 2024-08-25 13:21:30 2 g/dL F 0.9-5.0 Lactate dehydrogenase [Enzymatic activity/volume] in Serum or Plasma 2024-08-25 13:21:16 183 U/L F 120.0-246.0 Protein [Mass/volume] in Serum or Plasma 2024-08-25 13:21:16 6 g/dL F 5.7-8.2 Albumin [Mass/volume] in Serum or Plasma by Bromocresol green (BCG) dye binding method 2024-08-25 13:21:16 4 g/dL F 3.4-4.8 Bicarbonate [Moles/volume] in Serum or Plasma 2024-08-25 13:21:16 25 mEq/L F 20.0-31.0 Protein [Mass/volume] in Serum or Plasma 2024-08-25 13:21:16 6 g/dL F 5.7-8.2 Lactate dehydrogenase [Enzymatic activity/volume] in Serum or Plasma 2024-08-25 13:21:16 183 U/L F 120.0-246.0 Albumin [Mass/volume] in Serum or Plasma by Bromocresol green (BCG) dye binding method 2024-08-25 13:21:16 4 g/dL F 3.4-4.8 Bicarbonate [Moles/volume] in Serum or Plasma 2024-08-25 13:21:16 25 mEq/L F 20.0-31.0 Potassium [Moles/volume] in Serum or Plasma 2024-08-13 07:09:53 5.8 mEq/L F 3.5-5.5 Potassium [Moles/volume] in Serum or Plasma 2024-07-22 06:21:22 5.7 mEq/L F 3.5-5.5 GLOBULIN 2024-07-21 21:09:47 1.9 g/dL F 0.9-5.0 A/G RATIO 2024-07-21 21:09:47 2.1 Calc F 1.0-2.5 Protein [Mass/volume] in Serum or Plasma 2024-07-21 21:09:21 5.9 g/dL F 5.7-8.2 Bicarbonate [Moles/volume] in Serum or Plasma 2024-07-21 21:09:21 27 mEq/L F 20.0-31.0 Albumin [Mass/volume] in Serum or Plasma by Bromocresol green (BCG) dye binding method 2024-07-21 21:09:21 4 g/dL F 3.4-4.8 Lactate dehydrogenase [Enzymatic activity/volume] in Serum or Plasma 2024-07-21 21:09:21 169 U/L F 120.0-246.0 Potassium [Moles/volume] in Serum or Plasma 2024-07-07 20:27:41 6.2 mEq/L F 3.5-5.5 Potassium [Moles/volume] in Serum or Plasma 2024-03-27 06:26:32 5.7 mEq/L F 3.5-5.5 Potassium [Moles/volume] in Serum or Plasma 2024-03-27 06:26:32 5.7 mEq/L F 3.5-5.5 A/G RATIO 2024-03-26 17:03:27 2.1 Calc F 1.0-2.5 GLOBULIN 2024-03-26 17:03:27 2 g/dL F 0.9-5.0 LDL-CHOLESTEROL 2024-03-26 17:03:27 58 mg/dL F 0.0-99.0 VLDL-CHOL(CALC) 2024-03-26 17:03:27 28 mg/dL F 0.0-29.0 CHOL/HDL RATIO 2024-03-26 17:03:27 3.7 Calc F 3.3-5.0 GLOBULIN 2024-03-26 17:03:27 2 g/dL F 0.9-5.0 LDL-CHOLESTEROL 2024-03-26 17:03:27 58 mg/dL F 0.0-99.0 A/G RATIO 2024-03-26 17:03:27 2.1 Calc F 1.0-2.5 VLDL-CHOL(CALC) 2024-03-26 17:03:27 28 mg/dL F 0.0-29.0 CHOL/HDL RATIO 2024-03-26 17:03:27 3.7 Calc F 3.3-5.0 Albumin [Mass/volume] in Serum or Plasma by Bromocresol green (BCG) dye binding method 2024-03-26 17:02:40 4.1 g/dL F 3.4-4.8 Cholesterol [Mass/volume] in Serum or Plasma 2024-03-26 17:02:40 118 mg/dL F 0.0-199.0 Lactate dehydrogenase [Enzymatic activity/volume] in Serum or Plasma 2024-03-26 17:02:40 157 U/L F 120.0-246.0 Bicarbonate [Moles/volume] in Serum or Plasma 2024-03-26 17:02:40 24 mEq/L F 20.0-31.0 Protein [Mass/volume] in Serum or Plasma 2024-03-26 17:02:40 6.1 g/dL F 5.7-8.2 Protein [Mass/volume] in Serum or Plasma 2024-03-26 17:02:40 138 mg/dL F 0.0-149.0 Cholesterol in HDL [Mass/volume] in Serum or Plasma 2024-03-26 17:02:40 32 mg/dL F 40.0-60.0 Albumin [Mass/volume] in Serum or Plasma by Bromocresol green (BCG) dye binding method 2024-03-26 17:02:40 4.1 g/dL F 3.4-4.8 Cholesterol [Mass/volume] in Serum or Plasma 2024-03-26 17:02:40 118 mg/dL F 0.0-199.0 Protein [Mass/volume] in Serum or Plasma 2024-03-26 17:02:40 138 mg/dL F 0.0-149.0 Bicarbonate [Moles/volume] in Serum or Plasma 2024-03-26 17:02:40 24 mEq/L F 20.0-31.0 Protein [Mass/volume] in Serum or Plasma 2024-03-26 17:02:40 6.1 g/dL F 5.7-8.2 Cholesterol in HDL [Mass/volume] in Serum or Plasma 2024-03-26 17:02:40 32 mg/dL F 40.0-60.0 Lactate dehydrogenase [Enzymatic activity/volume] in Serum or Plasma 2024-03-26 17:02:40 157 U/L F 120.0-246.0 GLOBULIN 2023-03-20 04:14:33 2.1 g/dL F 0.9-5.0 A/G RATIO 2023-03-20 04:14:33 2 Calc F 1.0-2.5 Potassium [Moles/volume] in Serum or Plasma 2023-03-20 04:14:23 6.3 mEq/L F 3.5-5.5 Albumin [Mass/volume] in Serum or Plasma by Bromocresol green (BCG) dye binding method 2023-03-20 04:14:23 4.3 g/dL F 3.4-4.8 Protein [Mass/volume] in Serum or Plasma 2023-03-20 04:14:23 6.4 g/dL F 5.7-8.2 Lactate dehydrogenase [Enzymatic activity/volume] in Serum or Plasma 2023-03-20 04:14:23 177 U/L F 120.0-246.0 Bicarbonate [Moles/volume] in Serum or Plasma 2023-03-20 04:14:23 22 mEq/L F 20.0-31.0 A/G RATIO 2023-01-17 21:24:33 2.3 Calc F 1.0-2.5 GLOBULIN 2023-01-17 21:24:33 1.9 g/dL F 0.9-5.0 Albumin [Mass/volume] in Serum or Plasma by Bromocresol green (BCG) dye binding method 2023-01-17 21:24:22 4.4 g/dL F 3.4-4.8 Protein [Mass/volume] in Serum or Plasma 2023-01-17 21:24:22 6.3 g/dL F 5.7-8.2 Potassium [Moles/volume] in Serum or Plasma 2023-01-17 21:24:22 5.2 mEq/L F 3.5-5.5 Bicarbonate [Moles/volume] in Serum or Plasma 2023-01-17 21:24:22 25 mEq/L F 20.0-31.0 Lactate dehydrogenase [Enzymatic activity/volume] in Serum or Plasma 2023-01-17 21:24:22 165 U/L F 120.0-246.0 A/G RATIO 2022-12-20 14:16:05 2.1 Calc F 1.0-2.5 GLOBULIN 2022-12-20 14:16:05 2.1 g/dL F 0.9-5.0 GLOBULIN 2022-12-20 14:16:05 2.1 g/dL F 0.9-5.0 A/G RATIO 2022-12-20 14:16:05 2.1 Calc F 1.0-2.5 Albumin [Mass/volume] in Serum or Plasma by Bromocresol green (BCG) dye binding method 2022-12-20 14:15:57 4.4 g/dL F 3.4-4.8 Bicarbonate [Moles/volume] in Serum or Plasma 2022-12-20 14:15:57 26 mEq/L F 20.0-31.0 Lactate dehydrogenase [Enzymatic activity/volume] in Serum or Plasma 2022-12-20 14:15:57 178 U/L F 120.0-246.0 Potassium [Moles/volume] in Serum or Plasma 2022-12-20 14:15:57 5.6 mEq/L F 3.5-5.5 Protein [Mass/volume] in Serum or Plasma 2022-12-20 14:15:57 6.5 g/dL F 5.7-8.2 Protein [Mass/volume] in Serum or Plasma 2022-12-20 14:15:57 6.5 g/dL F 5.7-8.2 Bicarbonate [Moles/volume] in Serum or Plasma 2022-12-20 14:15:57 26 mEq/L F 20.0-31.0 Potassium [Moles/volume] in Serum or Plasma 2022-12-20 14:15:57 5.6 mEq/L F 3.5-5.5 Albumin [Mass/volume] in Serum or Plasma by Bromocresol green (BCG) dye binding method 2022-12-20 14:15:57 4.4 g/dL F 3.4-4.8 Lactate dehydrogenase [Enzymatic activity/volume] in Serum or Plasma 2022-12-20 14:15:57 178 U/L F 120.0-246.0 A/G RATIO 2022-11-15 15:08:26 2 Calc F 1.0-2.5 GLOBULIN 2022-11-15 15:08:26 2.2 g/dL F 0.9-5.0 GLOBULIN 2022-11-15 15:08:26 2.2 g/dL F 0.9-5.0 A/G RATIO 2022-11-15 15:08:26 2 Calc F 1.0-2.5 Albumin [Mass/volume] in Serum or Plasma by Bromocresol green (BCG) dye binding method 2022-11-15 15:07:57 4.3 g/dL F 3.4-4.8 Lactate dehydrogenase [Enzymatic activity/volume] in Serum or Plasma 2022-11-15 15:07:57 170 U/L F 120.0-246.0 Bicarbonate [Moles/volume] in Serum or Plasma 2022-11-15 15:07:57 26 mEq/L F 20.0-31.0 Potassium [Moles/volume] in Serum or Plasma 2022-11-15 15:07:57 5.4 mEq/L F 3.5-5.5 Protein [Mass/volume] in Serum or Plasma 2022-11-15 15:07:57 6.5 g/dL F 5.7-8.2 Potassium [Moles/volume] in Serum or Plasma 2022-11-15 15:07:57 5.4 mEq/L F 3.5-5.5 Protein [Mass/volume] in Serum or Plasma 2022-11-15 15:07:57 6.5 g/dL F 5.7-8.2 Bicarbonate [Moles/volume] in Serum or Plasma 2022-11-15 15:07:57 26 mEq/L F 20.0-31.0 Albumin [Mass/volume] in Serum or Plasma by Bromocresol green (BCG) dye binding method 2022-11-15 15:07:57 4.3 g/dL F 3.4-4.8 Lactate dehydrogenase [Enzymatic activity/volume] in Serum or Plasma 2022-11-15 15:07:57 170 U/L F 120.0-246.0 GLOBULIN 2022-10-18 16:23:18 2.1 g/dL F 0.9-5.0 A/G RATIO 2022-10-18 16:23:18 2.2 Calc F 1.0-2.5 Albumin [Mass/volume] in Serum or Plasma by Bromocresol green (BCG) dye binding method 2022-10-18 16:22:50 4.6 g/dL F 3.4-4.8 Potassium [Moles/volume] in Serum or Plasma 2022-10-18 16:22:50 5.5 mEq/L F 3.5-5.5 Protein [Mass/volume] in Serum or Plasma 2022-10-18 16:22:50 6.7 g/dL F 5.7-8.2 Bicarbonate [Moles/volume] in Serum or Plasma 2022-10-18 16:22:50 25 mEq/L F 20.0-31.0 Lactate dehydrogenase [Enzymatic activity/volume] in Serum or Plasma 2022-10-18 16:22:50 182 U/L F 120.0-246.0 Potassium [Moles/volume] in Serum or Plasma Encounters No encounter information to report Immunizations Ordered Immunization Name Filled Immunization Name Date Status Comments Refusal Reason TST-PPD intradermal 2024-02-03 13:05:00 TST-PPD intradermal 2023-02-01 20:20:04 Hep B, adult 2023-01-18 14:50:35 Plan of Treatment Planned Activity Provider Planned Date Details Commen ts Diagnostic Test Pending [facility] 2024-08-02 05:00:00 Hemoglobin [Mass/volume] in Blood [code = 718-7] Diagnostic Test Pending [facility] 2023-01-28 05:00:00 Alanine aminotransferase [Enzymatic activity/volume] in Serum or Plasma [code = 1742-6] Diagnostic Test Pending [facility] 2023-01-28 05:00:00 Potassium [Moles/volume] in Serum or Plasma [code = 2823-3] Diagnostic Test Pending [facility] 2023-01-28 05:00:00 Sodium [Moles/volume] in Serum or Plasma [code = 2951-2] Diagnostic Test Pending [facility] 2023-01-28 05:00:00 Creatinine [Mass/volume] in Serum or Plasma [code = 2160-0] Diagnostic Test Pending [facility] 2023-02-25 05:00:00 Parathyrin.intact [Mass/volume] in Serum or Plasma [code = 2731-8] Diagnostic Test Pending [facility] 2024-05-28 05:00:00 Ferritin [Mass/volume] in Serum or Plasma [code = 2276-4] Diagnostic Test Pending [facility] 2023-04-27 05:00:00 Aluminum [Mass/volume] in Serum or Plasma [code = 5574-9] Diagnostic Test Pending [facility] 2024-07-20 11:30:46 In-Center Hemodialysis Treatment [code = ZSW653] Diet Order [facility] February 12, 2023 Diet Calorie 30 kcal/kg Fluid Value 1000 mL/d Phosphorus Value 1070 mg/d Potassium Value 2000 mg/d Protein Value 1.2 gm/kg Sodium Value 2000 mg/d Calculated Weight 89 kg
--- OUTSIDE RECORDS SUMMARY | 2024-12-03 16:40 | XMS_ITS | Encounter Summary ---
Author Organization [facility] Healthcare Address [address] [place] [address] Care Team Providers Care Traveling Crane Operator Name Role Phone Gerardo Shah MD Primary Care Provider [phone] Suzetet Strickland MD Unavailable [phone] Rita Tapia RN Unavailable [phone] Encounter Details Date Type Department Care Team (Late st Contact Info) Description 09/06/2020 Telephone [facility] Radiology [address] [place] [address] Marc Khan MD [address] [facility] [id number] [place], [place] [id number] Social History Tobacco Use Types Packs/Day Years Used Date Smoking Tobacco: Former Cigarettes 1.5 40 0 04/11/1978 - 2017 Smokeless Tobacco: Never Alcohol Use Standard Drinks/Week Comments Yes 2 (1 standard drink = 0.6 oz pur e alcohol) Sex and Gender Information Value Date Recorded Sex Assigned at Not on file Legal Sex Male 4:54 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) documented as of this encounter Visit Diagnoses Not on filedocumented in this encounter Care Teams Traveling Crane Operator Relationship Specialty Start Date End Date Gerardo Shah MD PCP - General Internal Medicine 09/30/18 Suzette Strickland MD [address] [facility] [address] [place] [address] Referring Physician Nephrology 02/15/20 Rita Tapia, RN [address] [place] [address] Registered Nurse Drill Press Operator Helper 02/15/20 documented as of this encounter
--- OUTSIDE RECORDS SUMMARY | 2024-12-03 16:40 | XMS_ITS ---
Author Organization [facility] [address] Address [address] [place] [address] Care Team Providers Care Vegetable Tester Name Role Phone Gerardo Shah MD Primary Care Provider [phone] Suzette Strickland MD Unavailable [phone] Rita Tapia RN Unavailable [phone] Active Problems Patient Care Coordination No te Formatting of this note migh t be different from the original. 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[facility]) 03/12/2023 Malignant neoplasm of right kidney 09/07/2021 Gastroesophageal reflux disease 06/08/2021 Hypertension 06/08/2021 Vitamin B12 deficiency 06/08/2021 Kidney disease 09/29/2020 Overview (09/29/2020): Added automatically from request for surgery [id number] Encounter for surgical after care following surgery of circulatory system 09/28/2020 Stage 5 chronic kidney disea se on chronic dialysis ([facility]) 08/04/2020 Overview (08/04/2020): Added automatically from request for surgery [id number] End-stage renal disease (ESRD) ([facility]) 020 Overview (06/22/2020): Added automatically from request for surgery [id number] Autosomal dominant polycystic kidney disease 06/2020 Overview (05/05/2020): Added automatically from request for surgery [id number] Polycystic kidney disease, autosomal dominant Stage 4 chronic kidney disease (CMS/HCC) 020 Pre-transplant evaluation for kidney transplant 04/12/2020 Secondary hyperparathyroidism 04/12/2020 Other chest pain 12/23/2018 End stage renal disease ([facility]) Acute postoperative abdominal pain Current Oncology Plans No current plan information found. Past Plans No past plan information found. Radiation Treatments * No radiation treatments are documented for this patient in [facility]. Treatments may have been administered in [...]
--- OUTSIDE RECORDS SUMMARY | 2024-12-03 16:40 | XMS_ITS | Clinical Summary ---
Author Organization [facility] Address [address], [address] [address] Phone Care Team Providers Care Sterile Processing Manager Name Role Phone Gerardo Shah MD Primary Care Provider [phone] Stan Mendez DO Unavailable [phone] Social History Tobacco Use Types Packs/Day Years Used Date Smoking Tobacco: Never Assessed Sex and Gender Information Value Date Recorded Sex Assigned at Not on file Legal Sex Male 12:33 PM JACKER Gender Identity Not on file Sexual Orientation [...] patient's age to complete this topic Insurance [facility] Care Teams Sterile Processing Manager Relationship Specialty Start Date End Date Gerardo Shah MD [address] [place] [address] PCP - General Internal Medicine 11/05/18 Stan Mendez DO [address] [place] [address] Gastroenterology 11/05/18
[2024-12-03 16:41] VITALS: BP 112/74; PULSE 115; RESP 20; TEMP 38.4; O2SAT 94
--- OUTSIDE RECORDS SUMMARY | 2024-12-03 16:41 | XMS_ITS | Clinical Summary ---
Author Organization [facility] [address] Address [address] [place] [address] Care Team Providers Care Cargo Router Name Role Phone Gerardo Shah MD Primary Care Provider [phone] Suzette Strickland MD Unavailable [phone] Rita Tapia RN Unavailable [phone] Allergies No known active allergies Medications [...] 30 mg 24 hr tabletIndications :Prinzmetal's angina ([facility]) (HCC) Take 1 tablet (30 mg total) [...] Problem Noted Date Diagnosed Date Prinzmetal's angina ([facility]) 03/12/2023 Malignant neoplasm of right kidney 09/07/2021 Gastroesophageal reflux disease 06/08/2021 Hypertension 06/08/2021 Vitamin B12 deficiency 06/08/2021 Kidney disease 09/29/2020 Overview (09/29/2020): Added automatically from request for surgery [id number] Encounter for surgical after care following surgery of circulatory system 09/28/2020 Stage 5 chronic kidney disea se on chronic dialysis ([facility]) 08/04/2020 Overview (08/04/2020): Added automatically from request for surgery [id number] End-stage renal disease (ESRD) ([facility]) 020 Overview (06/22/2020): Added automatically from request for surgery [id number] Autosomal dominant polycystic kidney disease 06/2020 Overview (05/05/2020): Added automatically from request for surgery [id number] Polycystic kidney disease, autosomal dominant Stage 4 chronic kidney disease ([facility]) 06/16/2 020 Pre-transplant evaluation for kidney transplant 04/12/2020 Secondary hyperparathyroidism 04/12/2020 Other chest pain 12/23/2018 End stage renal disease (CMS/HCC) Acute postoperative abdominal pain Resolved Problems Problem Noted Date Diagnosed Date Resolved Date Coronary arteriosclerosis 06/08/2021 Encounters Date Type Department Care Team Description 11/10/2024 8:00 AM LASER BEAM TRIM OPERATOR Office Visit [facility] Cardiology [address] [place] [id number] Danna Reynoso NP Prinzmetal's angina (CMS/HCC) (HCC) (Primary Dx) 10/06/2024 Documentation [facility] Transplant Kidney [address] [facility] [address] Mailstop [id number] [place] [address] Kirstin Simmons 10/05/2024 Documentation [facility] Transplant Kidney [address] [facility] [address] Mailstop [id number] [place] [address] Landy Sumner 09/30/2024 Documentation [facility] Transplant Kidney [address] [facility] [address] Mailstop [id number] [place] [address] Rita Tapia, RN 09/29/2024 Telephone [facility] Transplant Kidney [address] [facility] [address] Mailstop [id number] [place] [address] Rita Tapia, RN 09/21/2024 10:00 AM LASER BEAM TRIM OPERATOR - 09/21/2024 11:59 PM LASER BEAM TRIM OPERATOR Hospital Encounter [facility] [address] [place] [address] ESRD (end stage renal disease) (CMS/HCC) (HCC) Discharge Disposition: Discharge to home or self care 09/08/2024 11:40 AM LASER BEAM TRIM OPERATOR Office Visit [place] [facility] ([facility] - [facility] Urology [address] [place] [address] for Advanced Medicine 11th [place] [address] [place] [address] Quique Guzman NP History of kidney cancer (Primary Dx) 09/08/2024 8:46 AM LASER BEAM TRIM OPERATOR - 09/08/2024 11:59 PM LASER BEAM TRIM OPERATOR Hospital Encounter [facility] ([facility]) [address] [place], [place] [id number] History of kidney cancer Discharge Disposition: Discharge [...] on file Legal Sex Male 4:54 AM LASER BEAM TRIM OPERATOR Gender Identity Not on file Sexual Orientation Straight 05/03/2020 10 :36 AM CDT Obstetrics History Last Filed Vital Signs Vital Sign Reading Time Taken Comments Blood Pressure 130/70 11/10/2024 7:57 AM LASER BEAM TRIM OPERATOR Pulse 67 11/10/2024 7:57 AM LASER BEAM TRIM OPERATOR Temperature 36.3 C (97.4 F) 09/07/2021 1:21 PM LASER BEAM TRIM OPERATOR Respiratory Rate 16 10/12/2020 1:20 PM LASER BEAM TRIM OPERATOR Oxygen Saturation 98% 11/10/2024 7:57 AM LASER BEAM TRIM OPERATOR Inhaled Oxygen Concentration - - Weight 82.1 kg (180 lb 14.4 oz) 11/10/2024 7:57 AM LASER BEAM TRIM OPERATOR Height 190.5 cm (6' 3 ) 11/10/2024 7:57 AM LASER BEAM TRIM OPERATOR Body Mass Index 22.61 11/10/2024 7:57 AM LASER BEAM TRIM OPERATOR Plan of Treatment Scheduled Procedures Name [...] AND CLASS II) Routine 09/21/2024 10:00 AM LASER BEAM TRIM OPERATOR ESRD (end stage renal disease) (CMS/HCC) (HCC) MRI ABDOMEN KIDNEY WO CONTRAST Schedule Routine, Read Routine (OP Routine) 09/08/2024 9:58 AM LASER BEAM TRIM OPERATOR History of kidney cancer HEPATITIS C ANTIBODY Routine 11/08/2022 8:15 AM LASER BEAM TRIM OPERATOR 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) (HCC) PSA SCREEN Routine 11/08/2022 8:15 AM LASER BEAM TRIM OPERATOR 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) (HCC) from Last 3 Months or Most Recently Relevant to Health Maintenance Results * HLA Antibody Screen by PRA or SAB per Schedule (Class I and Class II) (09/21/2024 10:00 AM LASER BEAM TRIM OPERATOR) Blood 09/21/2024 10:0 0 AM LASER BEAM TRIM OPERATOR Narrative HISTOTRAC - LASER BEAM TRIM OPERATOR Sample received in lab and stored. No testing performed at this time. us Alonso Pruitt MD LAB BLOOD ORDERABLES Final Resu lt HISTOTRAC * MRI Abdomen Kidney WO Contrast (09/08/2024 9:58 AM LASER BEAM TRIM OPERATOR) Anatomical Region Laterality Modality Body N/A Magnetic Resonan ce 09/08/2024 1:14 PM LASER BEAM TRIM OPERATOR Impressions 09/08/2024 1:25 PM LASER BEAM TRIM OPERATOR 1. Redemonstrated post surgical changes of [...] Donaldo Moya M.D. Narrative 09/08/2024 1:25 PM LASER BEAM TRIM OPERATOR EXAMINATION: MAGNETIC RESONANCE IMAGING OF THE [...] Result * PSA screen (11/08/2022 8:15 AM LASER BEAM TRIM OPERATOR) PSA-Total 0.93 <=5.40 ng/mL [facility] Comment: Interpretive Data AGE SEX REFERENCE [...] last revised 22. Blood 11/08/2022 8:15 AM LASER BEAM TRIM OPERATOR 11/08/2022 8:57 AM LASER BEAM TRIM OPERATOR us Perla Valadez MD LAB BLOOD ORDERABLE S Final Result [facility] Department [place] [address] * Hepatitis C antibody (11/08/2022 8:15 AM LASER BEAM TRIM OPERATOR) Hep C Ab Nonreactive Nonreactive [facility] Comment:Antibodies to HCV no t detected. Does NOT exclude the possibility of recent exposure to HCV. Current interpretive data was last revised on 22 Blood 11/08/2022 8:15 AM LASER BEAM TRIM OPERATOR 11/08/2022 8:57 AM LASER BEAM TRIM OPERATOR us Perla Valadez MD LAB MICROBIOLOGY - GENERAL ORDERABLES Final Result Performing Organization Address [facility] Co de Phone Number [facility] Department [place] [address] from Last 3 Months or Most Recently Relevant to Health Maintenance Insurance [facility] MED[facility] MED[facility] Address: [address] [place] [id number] [facility] Advance Directives For more information, please contact: [phone] * Full Code (Latest Code Status on File) Date Activated Date Inactivated Comments 07/03/2020 3:51 PM 07/07/2020 4:44 PM * Full Code Date Activated Date Inactivated Comments 06/14/2020 5:08 PM 06/18/2020 10:40 PM Care Teams Cargo Router Relationship Specialty Start Date End Date Gerardo Shah MD PCP - General Internal Medicine 09/30/18 Suzette Strickland MD [address] [facility] [address] [place] [address] Referring Physician Nephrology 02/15/20 Rita Tapia, RN [address] [place] [address] Registered Nurse Combat Information Center Officer 02/15/20
--- OUTSIDE RECORDS SUMMARY | 2024-12-03 16:41 | XMS_ITS | Referral Summary ---
Author Organization [facility] [address] [facility] [facility] [address] Address [address] [place] [address] Care Team Providers Care Door Framer Name Role Phone Gerardo Shah MD Primary Care Provider [phone] Suzette Strickland MD Unavailable [phone] Rita Tapia RN Unavailable [phone] Encounters Date Type Department Care Team Description 11/10/2024 8:00 AM GREY WASHER Office Visit [facility] Cardiology [address] [facility] [address] [place] [address] Danna Reynoso, EZEQUIEL Prinzmetal's angina (CMS/HCC) (HCC) (Primary Dx) 10/06/2024 Documentation [facility] Transplant Kidney [address] [facility] [address] Mailstop [id number] [place] [address] Kirstin Simmons 10/05/2024 Documentation [facility] Transplant Kidney [address] [facility] [facility] [address] Mailstop [id number] [place] [address] Landy Sumner 09/30/2024 Documentation [facility] Transplant Kidney [address] [facility] [facility] [address] Mailstop [id number] [place] [address] Rita Tapia, RN 09/29/2024 Telephone [facility] Trans[facility] Kidney [address] [facility] [facility] [address] Mailstop [id number] [place] [address] Rita Tpaia RN 09/21/2024 10:00 AM GREY WASHER - 09/21/2024 11:59 PM GREY WASHER Hospital Encounter [facility] [address] [place] [address] ESRD (end stage renal disease) (CMS/HCC) (HCC) Discharge Disposition: Discharge to home or self care 09/08/2024 8:46 AM GREY WASHER - 09/08/2024 11:59 PM GREY WASHER Hospital Encounter [facility] [address] [place] [address] History of kidney cancer Discharge Disposition: Discharge to home or self care 09/08/2024 11:40 AM GREY WASHER Office Visit [facility] Urology [address] [facility] Advanced Medicine 11th [place] [address] [place] [id number] Quique Guzman NP History of kidney cancer [...] 30 mg 24 hr tabletIndications :Prinzmetal's angina ([facility]) (HCC) Take 1 tablet (30 [...] Problem Noted Date Diagnosed Date Prinzmetal's angina ([facility]) 03/12/2023 Malignant neoplasm of right kidney 09/07/2021 Gastroesophageal reflux disease 06/08/2021 Hypertension 06/08/2021 Vitamin B12 deficiency 06/08/2021 Kidney disease 09/29/2020 Overview (09/29/2020): Added automatically from request for surgery [id number] Encounter for surgical after care following surgery of circulatory system 09/28/2020 Stage 5 chronic kidney disea se on chronic dialysis ([facility]) 08/04/2020 Overview (08/04/2020): Added automatically from request for surgery [id number] End-stage renal disease (ESRD) ([facility]) 020 Overview (06/22/2020): Added automatically from request for surgery [id number] Autosomal dominant polycystic kidney disease 06/2020 Overview (05/05/2020): Added automatically from request for surgery [id number] Polycystic kidney disease, autosomal dominant Stage 4 chronic kidney disease ([facility]) 020 Pre-transplant evaluation for kidney transplant 04/12/2020 Secondary hyperparathyroidism 04/12/2020 Other chest pain 12/23/2018 End stage renal disease ([facility]) Acute postoperative abdominal pain Resolved [...] on file Legal Sex Male 4:54 AM GREY WASHER Gender Identity Not on file Sexual Orientation Straight 05/03/2020 10 :36 AM CDT Last Filed Vital Signs Vital Sign Reading Time Taken Comments Blood Pressure 130/70 11/10/2024 7:57 AM GREY WASHER Pulse 67 11/10/2024 7:57 AM GREY WASHER Temperature 36.3 C (97.4 F) 09/07/2021 1:21 PM GREY WASHER Respiratory Rate 16 10/12/2020 1:20 PM GREY WASHER Oxygen Saturation 98% 11/10/2024 7:57 AM GREY WASHER Inhaled Oxygen Concentration - - Weight 82.1 kg (180 lb 14.4 oz) 11/10/2024 7:57 AM GREY WASHER Height 190.5 cm (6' 3 ) 11/10/2024 7:57 AM GREY WASHER Body Mass Index 22.61 11/10/2024 7:57 AM GREY WASHER Plan of Treatment Scheduled Procedures Name Priority Associated Diagnoses Date/Ti me TRANSPLANT KIDNEY ESRD (end stage renal disease) ([facility]) Procedures Procedure Name Priority Date/Time Associated Diagnosis Comments HLA ANTIBODY SCREEN BY PRA OR SAB PER SCHEDULE (CLASS I AND CLASS II) Routine 09/21/2024 10:00 AM GREY WASHER ESRD (end stage renal disease) ([facility]/HCC) (HCC) MRI ABDOMEN KIDNEY WO CONTRAST Schedule Routine, Read Routine (OP Routine) 09/08/2024 9:58 AM GREY WASHER History of kidney cancer HEPATITIS C ANTIBODY Routine 11/08/2022 8:15 AM GREY WASHER 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) (HCC) PSA SCREEN Routine 11/08/2022 8:15 AM GREY WASHER 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) (HCC) from Last 3 Months or Most Recently Relevant to Health Maintenance Results * HLA Antibody Screen by PRA or SAB per Schedule (Class I and Class II) (09/21/2024 10:00 AM GREY WASHER) Blood 09/21/2024 10:0 0 AM GREY WASHER Narrative HISTOTRAC - GREY WASHER Sample received in lab and stored. No testing performed at this time. us Alonso Pruitt MD LAB BLOOD ORDERABLES Final Resu lt HISTOTRAC * MRI Abdomen Kidney WO Contrast (09/08/2024 9:58 AM GREY WASHER) Anatomical Region Laterality Modality Body N/A Magnetic Resonan ce 09/08/2024 1:14 PM GREY WASHER Impressions 09/08/2024 1:25 PM GREY WASHER 1. Redemonstrated post surgical changes of right [...] Donaldo Moya M.D. Narrative 09/08/2024 1:25 PM GREY WASHER EXAMINATION: MAGNETIC RESONANCE IMAGING OF THE ABDOMEN [...] signed by: Donaldo Moya M.D. Quique Guzman GLOBAL ENGINEERING MANAGER IM MRI PROCEDURES Fin al Result * PSA screen (11/08/2022 8:15 AM GREY WASHER) PSA-Total 0.93 <=5.40 ng/mL [facility] Comment: Interpretive Data AGE SEX REFERENCE [...] last revised 22. Blood 11/08/2022 8:15 AM GREY WASHER 11/08/2022 8:57 AM GREY WASHER Perla Valadez MD LAB BLOOD ORDERABLE S Final Result Performing Organization Address City/[facility] Co de Phone Number [facility] [place] [employer] [place] [address] * Hepatitis C antibody (11/08/2022 8:15 AM GREY WASHER) Hep C Ab Nonreactive Nonreactive [facility] Comment:Antibodies to HCV no t detected. Does NOT exclude the possibility of recent exposure to HCV. Current interpretive data was last revised on 22 Blood 11/08/2022 8:15 AM GREY WASHER 11/08/2022 8:57 AM GREY WASHER Perla Valadez MD LAB MICROBIOLOGY - GENERAL ORDERABLES Final Result Performing Organization Address City/[facility] Co de Phone Number [facility] [place] [employer] [place] [address] from Last 3 Months or Most Recently Relevant to Health Maintenance Insurance [facility] HMO/PPO Address: [address] [place] [address] MEDICARE [facility] HMO/PPO Address[address] [address] MEDICARE [facility] HMO/PPO Address: [address] [address] [place] [address] MEDICARE [facility] HMO/PPO Address: [address] [address] [place] [address] MEDICARE Advance Directives For more information, please contact: [phone] * Full Code (Latest Code Status on File) Date Activated Date Inactivated Comments 07/03/2020 3:51 PM 07/07/2020 4:44 PM * Full Code Date Activated Date Inactivated Comments 06/14/2020 5:08 PM 06/18/2020 10:40 PM Care Teams Door Framer Relationship Specialty Start Date End Date Gerardo Shah MD PCP - General Internal Medicine 09/30/18 Suzette Strickland MD [address] [facility] [address] [place] [address] Referring Physician Nephrology 02/15/20 Rita Tapia, RN [address] [place] [address] Registered Nurse Gunite Nozzle Operator 02/15/20
--- OUTSIDE RECORDS SUMMARY | 2024-12-03 16:41 | XMS_ITS ---
Author Organization [facility] [address] Address [address] [place] [address] Care Team Providers Care Lower School Music Teacher Name Role Phone Gerardo Shah MD Primary Care Provider [phone] Suzette Strickland MD Unavailable [phone] Rita Tapia RN Unavailable [phone] Transplant Episode Kidney Candidate [facility] ([place], [place]) [facility] Center waitlisted on 08/03/2020 Marked as Active on 08/15/2020 Reason: Listed in [facility] Kidney CoordinatorJo Aviva Tapia RN Email: N/A Scores Score Value Updated Exceptions/Reas ons CPRA 0 08/31/2020 EPTS (Calc) 61 12/03/2024 Care Team Name Role Phone Fax Email Rita Tapia RN Kidney Coordinator [phone] N/A Suzette Strickland MD Referring Physician [phone] N/A Zhane Hatfield Client Technical Support Associate [phone] N/A N/A Events Pre-Transplant Referred: 01/07/2020 Evaluation began: 02/18/2020 Committee: 08/01/2020 Center waitlisted: 08/03/2020 Dialysis History Dialysis History Start End Type Comments Center 11/09/2020 Hemo Mon,Wed,Fri 6am [facility] Dialysis Center Information Center Phone Fax Address [facility] [phone] [facility] [address]
--- OUTSIDE RECORDS SUMMARY | 2024-12-03 16:42 | XMS_ITS | Clinical Summary ---
Author Organization [facility] Address [address] [place] [address] Phone Care Team Providers Care Mold Sander Name Role Phone Gerardo Shah MD Primary Care Provider [phone] Allergies No known active allergies Medications Medication [...] (05/11/2020): Added automatically from request for surgery [id number] Chronic kidney disease stage 4 04/12/2020 Secondary [...] Comments Blood Pressure 136/80 09/19/2020 8:37 AM HEALTH ASSISTANT Pulse - - Temperature 36.8 C (98.2 F) 09/19/2020 8:37 AM HEALTH ASSISTANT Respiratory Rate 18 09/19/2020 8:37 AM HEALTH ASSISTANT Oxygen Saturation - - Inhaled Oxygen Concentration - - Weight 95.3 kg (210 lb) 09/19/2020 8:37 AM HEALTH ASSISTANT Height 190.5 cm (6' 3 ) 09/19/2020 8:37 AM HEALTH ASSISTANT Body Mass Index 26.25 09/19/2020 8:37 AM HEALTH ASSISTANT Plan of Treatment Health Maintenance Due Date Last Done Comments Influenza Vaccine (#1) 2024 Care Teams Mold Sander Relationship Specialty Start Date End Date Gerardo Shah MD [address] [place] [address] PCP - General Internal Medicine 12/28/19
--- OUTSIDE RECORDS SUMMARY | 2024-12-03 16:42 | XMS_ITS | Encounter Summary ---
Author Organization [facility] Address [address] [place] [address] Phone Care Team Providers Care Subsystems Engineer Name Role Phone Gerardo Shah MD Primary Care Provider [phone] Reason for Visit * Reason Comments Med Refill Encounter Details Date Type Department Care Team (Late st Contact Info) Description 06/21/2022 Refill [facility] Nephrology and Hypertension [facility], [address] [address] Suzette Strickland MD [address] [facility], [address] [place] [address] Social History Tobacco Use Types Packs/Day Years [...] on filedocumented in this encounter Care Teams Subsystems Engineer Relationship Specialty Start Date End Date Gerardo Shah MD [address] [place] [address] PCP - General Internal Medicine 12/28/19 documented as of this encounter
--- OUTSIDE RECORDS SUMMARY | 2024-12-03 16:42 | XMS_ITS | Encounter Summary ---
Author Organization [facility] Address [address] [place] [address] Phone Care Team Providers Care Free Lance Artist Name Role Phone Gerardo Shah MD Primary Care Provider [phone] Reason for Visit * Reason Comments Med Refill Encounter Details Date Type Department Care Team (Late st Contact Info) Description 06/04/2022 Refill [facility] Nephrology and Hypertension [facility], [address] [address] Suzette Strickland MD [address] [facility], [address] [place] [address] Social History Tobacco Use Types Packs/Day Years [...] on filedocumented in this encounter Care Teams Free Lance Artist Relationship Specialty Start Date End Date Gerardo Shah MD [address] [place] [address] PCP - General Internal Medicine 12/28/19 documented as of this encounter
[2024-12-03 16:43] LABS: Influenza A QL RT-PCR Positive (Negative); Influenza B QL RT-PCR Negative (Negative); RSV RNA, RT-PCR Negative (Negative); SARS-CoV-2 RNA PCR Negative (Negative)
[2024-12-03 16:44] VITALS: O2SAT 94
--- NOTE | 2024-12-03 16:53 | ED.URI ---
HPI - URI/Sore Throat General Chief Complaint: Upper Respiratory Infection Stated Complaint: cold symptoms. Time Seen by Provider: 12/03/24 15:57 Source: patient Mode of arrival: ambulatory Limitations: no limitations History of Present Illness HPI Narrative: this is a 64-year-old male with history of end-stage kidney disease presents with a 3 day history of cough congestion fever with no shortness of breath no chest pain no nausea vomiting. MD elicited complaint: fever Onset (ago): day(s) Consistency: constant Severity: mild Related Data Home Medications ?Medication ?Instructions ?Recorded ?Confirmed ?Last Taken ?Type amlodipine 5 mg tablet (Norvasc) See Rx Instructions .Route .COMPLEX 12/21/19 10/11/24 05/13/23 History aspirin 81 mg tablet,delayed See Rx Instructions .Route .COMPLEX 12/21/19 10/11/24 05/13/23 History release (Sheng Low Dose Aspirin) Allergies Allergy/AdvReac Type Severity Reaction Status Date / Time No Known Allergies Allergy Verified 12/03/24 16:38 Review of Systems Review of Systems: All systems reviewed & are unremarkable except as noted in HPI and below PMFSH Past Medical History Medical History NSTEMI (non-ST elevated myocardial infarction) Renal osteodystrophy ESRD (end stage renal disease) on dialysis CKD (chronic kidney disease) stage 4, GFR 15-29 ml/min Colon cancer screening Anemia Ankle fracture, left Polycystic kidney disease GERD (gastroesophageal reflux disease) Pneumonia Asthma Emphysema of lung COPD (chronic obstructive pulmonary disease) HTN (hypertension) Myocardial infarction NSTEMI Surgical History Surgical History History of nephrectomy Right History of bladder surgery S/P cardiac catheterization Family History Family History Mother PCK (polycystic kidney disease) Social History Social History Smoking packs per day: 1.5 Smoking cigarettes per day: 30.0 Years smoked: 40 Smoking pack-years: 60.00 Smoking status: Former smoker Alcohol intake: never Substance use: never Substance use type: does not use Lack of Transportation: No Lack of Food: Never True Current Housing: I Have Housing Concerned About Future Housing: No Difficulty Paying Gas/Electric Bills: No Difficulty Paying for Meds: No Currently Unemployed: No Education: High School Diploma/GED Difficulty w/ Childcare or Family Care: No Living arrangements: with family Gender identity (if verbalized by the patient): Male Sexual Orientation (if Verbalized by the Patient): Straight or Heterosexual Spiritual care concerns: No Exam Const: General: healthy appearing and no acute distress Nutritional Appearance: well nourished Orientation/consciousness: patient oriented x3 Limitations: no limitations HENMT: Head: normal to inspection Eyes: Conjunctivae: conjunctivae normal Neck: Neck: normal visual inspection, no lymphadenopathy and no meningeal signs Chest: Chest palpation & inspection: normal inspection of the chest Resp: Effort & Inspection: normal respiratory effort Auscultation: clear to auscultation bilaterally Cardio: Rate: regular rate Rhythm: regular rhythm GI: GI Palp: Yes Soft to palpation Auscultation: normal bowel sounds : General: Yes bladder normal to palpation Skin: General skin exam: normal color Rashes: no rashes Neuro: General: patient oriented x3 Extrem: General: normal to inspection Course Course Emergency Course: Fluids A positive will send Tamiflu to patient's local pharmacy. Vital Signs Vital signs: Vital Signs Temperature 38.4 C H 12/03/24 16:41 Pulse Rate 115 H 12/03/24 16:41 Respiratory Rate 20 12/03/24 16:41 Blood Pressure 112/74 12/03/24 16:41 Pulse Oximetry 94 12/03/24 16:41 Oxygen Delivery Room Air 12/03/24 16:41 Temperature 38.4 C H 12/03/24 16:41 Pulse Rate 115 H 12/03/24 16:41 Respiratory Rate 20 12/03/24 16:41 Blood Pressure 112/74 12/03/24 16:41 Pulse Oximetry 94 12/03/24 16:44 Oxygen Delivery Room Air 12/03/24 16:44 MDM - URI/Sore Throat Lab Data Labs: Lab Results 12/03/24 Range/Units 15:57 Influenza A (RT-PCR) Positive A (Negative) Influenza B (RT-PCR) Negative (Negative) RSV (RT-PCR) Negative (Negative) SARS-CoV-2 RNA (RT-PCR) Negative (Negative) Critical Care Time Critical Care Time Critical Care Time: No Discharge Plan Discharge Clinical Impression: Influenza Patient Disposition: Home, Self-Care Condition: Stable Instructions: Antibiotic Form, Influenza (ED) Additional Instructions: advised take medicine as prescribed, use Tylenol as needed and follow with primary if symptoms persist or worsen. Patient Language: Icelandic Prescriptions: New oseltamivir [Tamiflu] 75 mg capsule 75 mg PO Q12H 5 Days Qty: 10 0RF No Action pantoprazole 40 mg tablet,delayed release (DR/EC) 40 mg PO BID PRN (Reason: heartburn/esophagitis) Qty: 20 0RF pantoprazole [Protonix] 40 mg tablet,delayed release (DR/EC) 40 mg PO BID 28 Days Qty: 60 0RF amlodipine [Norvasc] 5 mg tablet See Rx Instructions .ROUTE .COMPLEX Rx Instructions: daily aspirin [Sheng Low Dose Aspirin] 81 mg Tablet,Delayed Release (Dr/Ec) See Rx Instructions .ROUTE .COMPLEX Rx Instructions: daily isosorbide mononitrate 30 mg Tablet Extended Release 24 Hr 30 mg PO QAM Qty: 30 2RF famotidine 40 mg tablet 40 mg PO DAILY Qty: 30 11RF bumetanide 1 mg tablet 1 mg PO DAILY Qty: 90 3RF Follow-up/Referrals: Gerardo Shah MD [Primary Care Provider] - Time of Disposition: 16:56
== END 2024-12-03 17:10 | disposition home or self-care (01) ==
PROVIDERS: Emergency Provider Emergency Medicine; PCP Internal Medicine
DX: J11.1 Influenza due to unidentified influenza virus with other respiratory manifestations (principal); I25.2 Old myocardial infarction; I12.0 Hypertensive chronic kidney disease with stage 5 chronic kidney disease or end stage renal disease; N18.6 End stage renal disease; J43.9 Emphysema, unspecified; Z87.891 Personal history of nicotine dependence; Z20.822 Contact with and (suspected) exposure to COVID-19
CPT/HCPCS: 87637; 99283

== ENCOUNTER 2025-02-06 10:13 | Emergency (ER) | payer MEDICARE, OTHER, SELFPAY ==
--- NOTE | ~2025-02-06 | CT_ITS ---
EXAM: CTA chest abdomen pelvis - 02/06/2025 11:53 CDT History: 64 years old Male with L sided chest pain radiating into back -> flank Technique A CT angiogram of the chest, abdomen, and pelvis was performed from the thoracic inlet to the ischial tuberosities during dynamic intravenous contrast administration. 100 cc of Optiray 350 were used for the study. Automatic exposure control was used for this study. Multiple axial, coronal and sagittal reconstructions were created from the initial axial data. The st udy was evaluated on independent 3D post-processing software. Post processed 3-D reconstructed rotati ng MIP and volume rendered angiographic images were generated on a NMRKT workstation. Comparison: 10/11/2024 Findings: Vascular Findings: The right brachiocephalic artery, left common carotid artery and the left subclavian artery demonstra te normal course and caliber. The pulmonary artery and major branches are well opacified without filling defect to suggest pulmonar y embolism. Aorta: The ascending thoracic aorta, aortic arch, and descending thoracic aorta demonstrates normal c ourse and caliber. No thoracic aortic aneurysm is seen. Renal: The renal arteries are well opacified and normal in caliber without significant stenosis. No a ccessory renal arteries are identified. The renal venous drainage is unremarkable. Mesenteric: The mesenteric arteries are well opacified and normal in caliber without significant sten osis and have an unremarkable branching pattern. Iliac and Femoral: The iliac arteries are well opacified and normal in course and caliber without sig nificant stenosis. No significant stenosis of the internal or external iliac arteries is identified. Nonvascular Findings: CHEST: LINES AND DEVICES: None LUNGS: Multiple areas of new tree-in-bud opacities in the left lingula, can represent pneumonia in ap propriate in clinical settings. LARGE AIRWAYS: Unremarkable PLEURA: Unremarkable HEART: Unremarkable MEDIASTINUM AND SAMMI: Unremarkable CHEST WALL/SOFT TISSUES: Unremarkable ABDOMEN/PELVIS: LIVER: Multiple hepatic cysts are again seen. GALLBLADDER: No calcified gallstones. BILE DUCTS: No dilatation. SPLEEN: Within normal limits. PANCREAS: Within normal limits. ADRENAL GLANDS: Within normal limits. KIDNEYS and URETERS: Status post right nephrectomy. Innumerable left renal cysts are again seen. URINARY BLADDER: Within normal limits. STOMACH and BOWEL: Limited evaluation of the bowel due to lack of oral contrast. Mild diffuse wall th ickening of the rectum and sigmoid colon. No obstruction. Colonic diverticulosis, without diverticuli tis. REPRODUCTIVE ORGANS: Within normal limits. MESENTERY/PERITONEAL CAVITY: No free fluid or pneumoperitoneum. LYMPH NODES: No abdominal or pelvic lymphadenopathy. ABDOMINAL WALL: Within normal limits. MUSCULOSKELETAL: Multilevel degenerative changes of the spine. IMPRESSION: No evidence of acute aortic dissection. Multiple areas of new tree-in-bud opacities in the left lingula, can represent pneumonia in appropria te in clinical settings. Mild diffuse wall thickening of the rectum and sigmoid colon may represent proctocolitis. Reviewed, dictated and finalized at location A. IMPRESSION: No evidence of acute aortic dissection. Multiple areas of new tree-in-bud opacities in the left lingula, can represent pneumonia in appropriate in clinical settings. Mild diffuse wall thickening of the rectum and sigmoid colon may represent proc tocolitis.
--- NOTE | ~2025-02-06 | XR_ITS ---
EXAM/PROCEDURE: XR chest 2V - 02/06/2025 10:45 CDT HISTORY: 64 years old Male with CHEST PAIN TECHNIQUE: Two view(s) of the chest. COMPARISON: 10/01/2024 FINDINGS: LUNGS/ PLEURA: No focal consolidation. No appreciable pneumothorax or large pleural effusion. HEART/ MEDIASTINUM: Heart appears normal in size. BONES: No acute osseous abnormality. OTHER: Visualized upper abdomen is unremarkable. IMPRESSION: No acute process. Reviewed, dictated and finalized at location A. IMPRESSION: No acute process.
--- OUTSIDE RECORDS SUMMARY | 2025-02-06 10:16 | XMS_ITS | Clinical Summary ---
Author Organization [facility] Address [address] [place] [address] Phone Care Team Providers Care Farm Assistant Name Role Phone Gerardo Shah MD Primary Care Provider [phone] Allergies No known active allergies Medications amLODIPine (NORVASC) 5 MG tablet TAKE ONE TABLET BY MOUTH DAILY 0 Active aspirin EC 81 MG EC tablet Take 81 mg by mouth daily Active metoprolol tartrate (LOPRESSOR) 25 MG tablet TAKE ONE TABLET BY MOUTH TWICE A DAY 0 Active omeprazole (PriLOSEC) [address] capsule Take 40 mg by mouth daily 9 Active Cyanocobalamin (B-12) 1000 MCG tablet Take 1,000 mcg by mouth daily Active tamsulosin (FLOMAX) 0.4 MG 24 hr capsule 0 Active Sodium Zirconium Cyclosilicate (Lokelma) 10 g pack Take by mouth 3 (three) times a week Active lidocaine-prilocai ne (EMLA) 2.5-2.5 % cream APPLY TO ACCESS SITE ONE HOUR PRIOR TO TREATMENT COVER WITH PLASTIC WRAP 30 g 11 2 Active bumetanide (BUMEX) 1 MG tablet TAKE ONE TABLET BY MOUTH DAILY 30 tablet 11 2 Active Active Problems Problem Noted Date Diagnosed Date Acute abdominal pain 09/18/2020 Autosomal dominant polycystic kidney disease Overview (05/11/2020): Added automatically from request for surgery [id number] Chronic kidney disease stage 4 04/12/2020 Secondary hyperparathyroidism 04/12/2020 Hypertension Coronary arteriosclerosis Gastroesophageal reflux disease Vitamin B12 deficiency Immunizations Immunization Administration Dates Next Due Influenza, Injectable, Quadrivalent [...] at Not on file Legal Sex Male 10:33 AM MST Gender Identity Not on file Sexual Orientation Not on file Last Filed Vital Signs Vital Sign Reading Time Taken Comments Blood Pressure 136/80 09/19/2020 8:37 AM WOOD FLOOR LAYER Pulse - - Temperature 36.8 C (98.2 F) 09/19/2020 8:37 AM WOOD FLOOR LAYER Respiratory Rate 18 09/19/2020 8:37 AM WOOD FLOOR LAYER Oxygen Saturation - - Inhaled Oxygen Concentration - - Weight 95.3 kg (210 lb) 09/19/2020 8:37 AM WOOD FLOOR LAYER Height 190.5 cm (6' 3 ) 09/19/2020 8:37 AM WOOD FLOOR LAYER Body Mass Index 26.25 09/19/2020 8:37 AM WOOD FLOOR LAYER Plan of Treatment Health Maintenance Due Date Last Done Comments Influenza Vaccine (Season Ended) 2025 Insurance Care Teams Farm Assistant Relationship Specialty Start Date End Date Gerardo Shah MD [address] [place] [id number] PCP - General Internal Medicine 12/28/19
--- OUTSIDE RECORDS SUMMARY | 2025-02-06 10:16 | XMS_ITS ---
Author Organization [facility] [address] Address [address] [place] [address] Care Team Providers Care Quarry Plug And Feather Driller Name Role Phone Gerardo Shah MD Primary Care Provider [phone] Suzette Strickland MD Unavailable [phone] Rita Tapia RN Unavailable [phone] Active Problems Patient Care Coordination No te Formatting of this note migh t be different from the original. Verbal consent - BlanquitaMeghann Robin Problem Noted Date Diagnosed Date Prinzmetal's angina 03/12/2023 Malignant neoplasm of right kidney 09/07/2021 Gastroesophageal reflux disease 06/08/2021 Hypertension 06/08/2021 Vitamin B12 deficiency 06/08/2021 Kidney disease 09/29/2020 Overview (09/29/2020): Added automatically from request for surgery [id number] Encounter for surgical after care following surgery of circulatory system 09/28/2020 Stage 5 chronic kidney disea se on chronic dialysis (CMS/HCC) 08/04/2020 Overview (08/04/2020): Added automatically from request for surgery [id number] End-stage renal disease (ESRD) 06/22/2020 Overview (06/22/2020): Added automatically from request for surgery [id number] Autosomal dominant polycystic kidney disease 06/2020 Overview (05/05/2020): Added automatically from request for surgery [id number] Polycystic kidney disease, autosomal dominant Stage 4 chronic kidney disease 04/12/2020 Pre-transplant evaluation for kidney transplant 04/12/2020 Secondary hyperparathyroidism 04/12/2020 Other chest pain 12/23/2018 End stage renal disease Acute postoperative abdominal pain Current Treatment and Therapy Plans No current plan information found. Past Treatment and Therapy Plans No past plan information found. Lifetime Dose Tracking * Chemical Lifetime Dose Automatic Entry Manual Entr y Fluoro Time 0.56 minutes 0.56 minutes 0 minutes Air kerma at the reference point (Ka,r) 1.02 mGy 1 .02 mGy 0 mGy DLP 830 mGycm 830 mGycm 0 mGycm Resolved Problems Problem Noted Date Diagnosed Date Resolved Date Coronary arteriosclerosis 06/08/2021
--- OUTSIDE RECORDS SUMMARY | 2025-02-06 10:16 | XMS_ITS | Clinical Summary ---
Author Organization [facility] [address] Address [address] [place] [address] Care Team Providers Care Container Coordinator Name Role Phone Gerardo Shah MD Primary Care Provider [phone] Suzette Strickland MD Unavailable [phone] Rita Tapia RN Unavailable [phone] Allergies No known active allergies Medications [...] 30 mg 24 hr tabletIndications :Prinzmetal's angina Take 1 tablet (30 mg total) by mouth every morning 90 tablet 3 5 Active Active Problems Patient Care Coordination No te Formatting of this note migh t be different from the original. Verbal consent - Meghann Juares Robin Problem Noted Date Diagnosed Date Prinzmetal's angina 03/12/2023 Malignant neoplasm of right kidney 09/07/2021 Gastroesophageal reflux disease 06/08/2021 Hypertension 06/08/2021 Vitamin B12 deficiency 06/08/2021 Kidney disease 09/29/2020 Overview (09/29/2020): Added automatically from request for surgery [id number] Encounter for surgical after care following surgery of circulatory system 09/28/2020 Stage 5 chronic kidney disea se on chronic dialysis ([facility]) 08/04/2020 Overview (08/04/2020): Added automatically from request for surgery [id number] End-stage renal disease (ESRD) 06/22/2020 Overview (06/22/2020): Added automatically from request for surgery [id number] Autosomal dominant polycystic kidney disease 06/2020 Overview (05/05/2020): Added automatically from request for surgery [id number] Polycystic kidney disease, autosomal dominant Stage 4 chronic kidney disease 04/12/2020 Pre-transplant evaluation for kidney transplant 04/12/2020 Secondary hyperparathyroidism 04/12/2020 Other chest pain 12/23/2018 End stage renal disease Acute postoperative abdominal pain Resolved Problems Problem Noted Date Diagnosed Date Resolved Date Coronary arteriosclerosis 06/08/2021 Encounters Date Type Department Care Team Description 12/21/2024 10:00 AM FIELD CONSULTANT - 12/21/2024 11:59 PM FIELD CONSULTANT [place] [address] ESRD (end stage renal disease) (HCC) Discharge Disposition: Discharge to home or self care 11/10/2024 8:00 AM FIELD CONSULTANT Office Visit [facility] Cardiology [address] [place] [id number] Danna Reynoso, EZEQUIEL Prinzmetal's angina (Primary Dx) from Last 3 Months Immunizations Immunization Administration Dates Next Due Hep B Vaccine [...] on file Legal Sex Male 4:54 AM FIELD CONSULTANT Gender Identity Not on file Sexual Orientation Straight 05/03/2020 10 :36 AM CDT Obstetrics History Last Filed Vital Signs Vital Sign Reading Time Taken Comments Blood Pressure 130/70 11/10/2024 7:57 AM FIELD CONSULTANT Pulse 67 11/10/2024 7:57 AM FIELD CONSULTANT Temperature 36.3 C (97.4 F) 09/07/2021 1:21 PM FIELD CONSULTANT Respiratory Rate 16 10/12/2020 1:20 PM FIELD CONSULTANT Oxygen Saturation 98% 11/10/2024 7:57 AM FIELD CONSULTANT Inhaled Oxygen Concentration - - Weight 82.1 kg (180 lb 14.4 oz) 11/10/2024 7:57 AM FIELD CONSULTANT Height 190.5 cm (6' 3 ) 11/10/2024 7:57 AM FIELD CONSULTANT Body Mass Index 22.61 11/10/2024 7:57 AM FIELD CONSULTANT Plan of Treatment Scheduled Procedures Name Priority Associated Diagnoses Date/Ti me TRANSPLANT KIDNEY ESRD (end stage renal disease) (HCC) Health Maintenance Due Date Last Done Comments Colon Cancer Screening-Colonoscopy 1960 Depression Screening 1960 DTaP/Tdap/Td Vaccine (1 - Tdap) 02/20/1971 Regular Well Visit/Exam 18-64 02/20/1978 Lung Cancer Screening 02/20/2010 Zoster Vaccine (1 of 2) 02/20/2010 Influenza Vaccine (#1) 2024 07/28/2019 Prostate Cancer Screening-PSA 11/08/2024 11/08/2022, 06/08/2021 Hepatitis C Screening Completed 11/08/2022 , 06/08/2021, 04/04/2020 Hepatitis B Screening Completed 01/18/2023 , 11/08/2022, 09/26/2022, Additional history exists Pneumococcal vaccine <65 Aged Out No longer eligible based on patient's age to complete this topic Procedures Procedure Name Priority Date/Time Associated Diagnosis Comments HLA ANTIBODY SCREEN - SAB (CLASS I AND CLASS II) Routine 12/21/2024 10:00 AM FIELD CONSULTANT ESRD (end stage renal disease) (HCC) HLA ANTIBODY SCREEN BY PRA OR SAB PER SCHEDULE (CLASS I AND CLASS II) Routine 12/21/2024 10:00 AM FIELD CONSULTANT ESRD (end stage renal disease) (HCC) HEPATITIS C ANTIBODY Routine 11/08/2022 8:15 AM FIELD CONSULTANT Stage 5 chronic kidney disease on chronic dialysis (HCC) PSA SCREEN Routine 11/08/2022 8:15 AM FIELD CONSULTANT Stage 5 chronic kidney disease on chronic dialysis (HCC) from Last 3 Months or Most Recently Relevant to Health Maintenance Results * HLA Antibody Screen by PRA or SAB per Schedule (Class I and Class II) (12/21/2024 10:00 AM FIELD CONSULTANT) Blood 12/21/2024 10:0 0 AM FIELD CONSULTANT Narrative HISTOTRAC - FIELD CONSULTANT Sample received in lab. Single Antigen Antibody Screen ordered. us Alonso Pruitt MD LAB BLOOD ORDERABLES Final Resu lt HISTOTRAC * HLA Antibody Screen - SAB (Class I and Class II) (12/21/2024 10:00 AM FIELD CONSULTANT) Class I Treatment EDTA HISTOTRAC Class I Dilution 1:1 HISTOTRAC Class I Tested Date 12/25/2024 HISTOTRAC Class I Result Negative HISTOTRAC Class I CPRA 0 HISTOTRAC Class II Treatment EDTA HISTOTRAC Class II Dilution 1:1 HISTOTRAC Class II Tested Date 12/25/2024 HISTOTRAC Class II Result Negative HISTOTRAC Class II CPRA 0 HISTOTRAC Class II Low Risk DQ7; DPB1*01:01, DPB1*11:01 HISTOTRAC 12/21/2024 10:0 0 AM FIELD CONSULTANT 12/25/2024 9:18 AM FIELD CONSULTANT Narrative HISTOTRAC - 12/25/2024 9:18 AM FIELD CONSULTANT Single-antigen HLA antibody screen is performed on serum samples using a method developed and validated by the [facility] HLA laboratory based on an FDA-approved IVD kit (LABScreen Single-Antigen, [employer], [place], [place]). All patient serum samples are pretreated with EDTA before the screen to prevent complement interference. Additional serum treatments, such as adsorption and DTT treatment, may be performed as indicated. Interpretive comments: Low risk: MFI [id number]. Moderate risk: MFI [id number]. Increased risk: MFI >/= 5000. The presence [...] antigens to avoid. Testing performed at the [facility], [address] [place] [address], 5th floor, [place], [address]. [facility] # [id number]. Nicole Rivera, Ph.D., Wrapper Hand, HLA Laboratory Harman Flores M.D., Ph.D., Highway Patrol Officer, HLA Laboratory Aviva Conway, Ph.D., CLIA Highway Patrol Officer, [facility] Clinical Laboratories Current methodology and interpretive comments last revised on 11/22/2022. us Alonso Pruitt MD LAB BLOOD ORDERABLES Final Resu lt HISTOTRAC * PSA screen (11/08/2022 8:15 AM FIELD CONSULTANT) PSA-Total 0.93 <=5.40 ng/mL [facility] Comment: Interpretive Data AGE SEX REFERENCE [...] last revised 22. Blood 11/08/2022 8:15 AM FIELD CONSULTANT 11/08/2022 8:57 AM FIELD CONSULTANT us Perla Vlaadez MD LAB BLOOD ORDERABLE S Final Result Performing Organization Address City/[facility] Co de Phone Number [facility] Department [place] [address] * Hepatitis C antibody (11/08/2022 8:15 AM FIELD CONSULTANT) Hep C Ab Nonreactive Nonreactive [facility] Comment:Antibodies to HCV no t detected. Does NOT exclude the possibility of recent exposure to HCV. Current interpretive data was last revised on 22 Blood 11/08/2022 8:15 AM FIELD CONSULTANT 11/08/2022 8:57 AM FIELD CONSULTANT Perla Valadez MD LAB MICROBIOLOGY - GENERAL ORDERABLES Final Result Performing Organization Address [facility] de Phone Number [facility] Department [place] [address] from Last 3 Months or Most Recently Relevant to Health Maintenance Insurance [facility] MEDICARE [facility] MEDICARE [facility] MEDICARE [facility] MEDICARE Advance Directives For more information, please contact: [phone] * Full Code (Latest Code Status on File) Date Activated Date Inactivated Comments 07/03/2020 3:51 PM 07/07/2020 4:44 PM * Full Code Date Activated Date Inactivated Comments 06/14/2020 5:08 PM 06/18/2020 10:40 PM Care Teams Container Coordinator Relationship Specialty Start Date End Date Gerardo Shah MD PCP - General Internal Medicine 09/30/18 Suzette Strickland MD [address] [facility] [place] [address] Referring Physician Nephrology 02/15/20 Rita Tapia, RN [address] [place] [address] Registered Nurse Horticulture Superintendent 02/15/20
--- OUTSIDE RECORDS SUMMARY | 2025-02-06 10:16 | XMS_ITS | Encounter Summary ---
Author Organization [facility] Address [address] [place] [address] Phone Care Team Providers Care Ornamental Metal Fabricator Apprentice Name Role Phone Gerardo Shah MD Primary Care Provider [phone] Reason for Visit * Reason Comments Med Refill Encounter Details Date Type Department Care Team (Late st Contact Info) Description 06/04/[address] [facility] Nephrology and Hypertension [facility], [address] [address] Suzette Strickland MD [address] [facility], [address] [place] [address] Social History Tobacco Use Types Packs/Day Years [...] on file Legal Sex Male 10:33 AM [facility] Gender Identity Not on file Sexual Orientation Not on file documented as of this encounter Plan of Treatment Not on file documented as of this encounter Visit Diagnoses Not on filedocumented in this encounter Care Teams Ornamental Metal Fabricator Apprentice Relationship Specialty Start Date End Date Gerardo Shah MD [address] [place] [address] PCP - General Internal Medicine 12/28/19 documented as of this encounter
--- OUTSIDE RECORDS SUMMARY | 2025-02-06 10:16 | XMS_ITS | Referral Summary ---
Author Organization [facility] [address] [place] [address] [address] [place] [address] Care Team Providers Care Logistics/Shipper Name Role Phone Gerardo Shah MD Primary Care Provider [phone] Suzette Strickland MD Unavailable [phone] Rita Tapia RN Unavailable [phone] Encounters Date Type Department Care Team Description 12/21/2024 10:00 AM CONSOLE OPERATOR - 12/21/2024 11:59 PM CONSOLE OPERATOR Hospital Encounter [address] [address] ESRD (end stage renal disease) ([facility]) Discharge Disposition: Discharge to home or self care 11/10/2024 8:00 AM CONSOLE OPERATOR Office Visit [facility] Cardiology [address] [facility] [address] [place] [address] Danna Reynoso NP Prinzmetal's angina (Primary Dx) from Last 3 Months Allergies [...] (09/29/2020): Added automatically from request for surgery [id number] Encounter for surgical after care following surgery of circulatory system 09/28/2020 Stage 5 chronic kidney disea se on chronic dialysis ([facility]) 08/04/2020 Overview (08/04/2020): Added automatically from request for surgery [id number] End-stage renal disease (ESRD) 06/22/2020 Overview (06/22/2020): Added automatically from request for surgery [id number] Autosomal dominant polycystic kidney disease 06/2020 Overview (05/05/2020): Added automatically from request for surgery [id number] Polycystic kidney disease, autosomal dominant Stage 4 chronic kidney disease 04/12/2020 Pre-transplant evaluation for kidney transplant 04/12/2020 Secondary hyperparathyroidism 04/12/2020 Other chest pain 12/23/2018 End stage renal disease Acute postoperative abdominal pain Resolved Problems Problem Noted Date Diagnosed Date Resolved Date Coronary arteriosclerosis 06/08/2021 Immunizations Immunization Administration Dates Next Due Hep [...] on file Legal Sex Male 4:54 AM CONSOLE OPERATOR Gender Identity Not on file Sexual Orientation Straight 05/03/2020 10 :36 AM CDT Last Filed Vital Signs Vital Sign Reading Time Taken Comments Blood Pressure 130/70 11/10/2024 7:57 AM CONSOLE OPERATOR Pulse 67 11/10/2024 7:57 AM CONSOLE OPERATOR Temperature 36.3 C (97.4 F) 09/07/2021 1:21 PM CONSOLE OPERATOR Respiratory Rate 16 10/12/2020 1:20 PM CONSOLE OPERATOR Oxygen Saturation 98% 11/10/2024 7:57 AM CONSOLE OPERATOR Inhaled Oxygen Concentration - - Weight 82.1 kg (180 lb 14.4 oz) 11/10/2024 7:57 AM CONSOLE OPERATOR Height 190.5 cm (6' 3 ) 11/10/2024 7:57 AM CONSOLE OPERATOR Body Mass Index 22.61 11/10/2024 7:57 AM CONSOLE OPERATOR Plan of Treatment Scheduled Procedures Name Priority Associated Diagnoses Date/Ti me TRANSPLANT KIDNEY ESRD (end stage renal disease) (HCC) Procedures Procedure Name Priority Date/Time Associated Diagnosis Comments HLA ANTIBODY SCREEN - SAB (CLASS I AND CLASS II) Routine 12/21/2024 10:00 AM CONSOLE OPERATOR ESRD (end stage renal disease) (HCC) HLA ANTIBODY SCREEN BY PRA OR SAB PER SCHEDULE (CLASS I AND CLASS II) Routine 12/21/2024 10:00 AM CONSOLE OPERATOR ESRD (end stage renal disease) (HCC) HEPATITIS C ANTIBODY Routine 11/08/2022 8:15 AM CONSOLE OPERATOR Stage 5 chronic kidney disease on chronic dialysis (HCC) PSA SCREEN Routine 11/08/2022 8:15 AM CONSOLE OPERATOR Stage 5 chronic kidney disease on chronic dialysis (HCC) from Last 3 Months or Most Recently Relevant to Health Maintenance Results * HLA Antibody Screen by PRA or SAB per Schedule (Class I and Class II) (12/21/2024 10:00 AM CONSOLE OPERATOR) Blood 12/21/2024 10:0 0 AM CONSOLE OPERATOR Narrative HISTOTRAC - CONSOLE OPERATOR Sample received in lab. Single Antigen Antibody Screen ordered. us Alonso Pruitt MD LAB BLOOD ORDERABLES Final Resu lt HISTOTRAC * HLA Antibody Screen - SAB (Class I and Class II) (12/21/2024 10:00 AM CONSOLE OPERATOR) Class I Treatment EDTA HISTOTRAC Class I [...] DPB1*01:01, DPB1*11:01 HISTOTRAC 12/21/2024 10:0 0 AM CONSOLE OPERATOR 12/25/2024 9:18 AM CONSOLE OPERATOR Narrative HISTOTRAC - 12/25/2024 9:18 AM CONSOLE OPERATOR Single-antigen HLA antibody screen is performed on serum samples using a method developed and validated by the [facility] HLA laboratory based on an FDA-approved IVD kit (LABScreen Single-Antigen, [employer], [place], [place]). All patient serum samples are pretreated with EDTA before the screen to prevent complement interference. Additional serum treatments, such as adsorption and DTT treatment, may be performed as indicated. Interpretive comments: Low risk: MFI [id number]. Moderate risk: MFI [id number]. Increased risk: MFI >/= 5000. The presence [...] performed at the [facility] Laboratory, [address] [place] [address], 5th floor, [place], [address]. [facility] # [id number]. Nicole Rivera, Ph.D., Production Operations Inspector, HLA Laboratory Harman Flores M.D., Ph.D., Blanket Maker, HLA Laboratory Aviva Conway, Ph.D., CLIA Blanket Maker, [facility] Laboratories Current methodology and interpretive comments last revised on 11/22/2022. us Alonso Pruitt MD LAB BLOOD ORDERABLES Final Resu lt HISTOTRAC * PSA screen (11/08/2022 8:15 AM CONSOLE OPERATOR) PSA-Total 0.93 <=5.40 ng/mL [facility] Comment: Interpretive Data AGE SEX REFERENCE INTERVAL [...] last revised 22. Blood 11/08/2022 8:15 AM CONSOLE OPERATOR 11/08/2022 8:57 AM CONSOLE OPERATOR Perla Valadez MD LAB BLOOD ORDERABLE S Final Result Performing Organization Address City/[facility]/ZIP Co de Phone Number [facility] [place] [place] [address] * Hepatitis C antibody (11/08/2022 8:15 AM CONSOLE OPERATOR) Pathologist [facility] Hep C Ab Nonreactive Nonreactive [facility] Comment:Antibodies to HCV no t detected. Does NOT exclude the possibility of recent exposure to HCV. Current interpretive data was last revised on 22 Blood 11/08/2022 8:15 AM CONSOLE OPERATOR 11/08/2022 8:57 AM CONSOLE OPERATOR Perla Valadez MD LAB MICROBIOLOGY - GENERAL ORDERABLES Final Result [facility] [place] [address] from Last 3 Months or Most Recently Relevant to Health Maintenance Insurance [facility] MEDICARE [facility] MEDICARE [facility] MEDICARE [facility] MEDICARE [facility] Address: [address] [address] [place] [address] Advance Directives For more information, please contact: [phone] * Full Code (Latest Code Status on File) Date Activated Date Inactivated Comments 07/03/2020 3:51 PM 07/07/2020 4:44 PM * Full Code Date Activated Date Inactivated Comments 06/14/2020 5:08 PM 06/18/2020 10:40 PM Care Teams Logistics/Shipper Relationship Specialty Start Date End Date Gerardo Shah MD PCP - General Internal Medicine 09/30/18 Suzette Strickland MD [address] [facility] [address] [place] [address] Referring Physician Nephrology 02/15/20 Rita Tapia, RN [address] [place] [address] Registered Nurse Edge Roller 02/15/20
--- OUTSIDE RECORDS SUMMARY | 2025-02-06 10:16 | XMS_ITS | Encounter Summary ---
Author Organization [facility] Healthcare Address [address] [place] [address] Care Team Providers Care Acid Polymerization Operator Name Role Phone Gerardo Shah MD Primary Care Provider [phone] Suzette Strickland MD Unavailable [phone] Rita Tapia RN Unavailable [phone] Encounter Details Date Type Department Care Team (Late st Contact Info) Description 09/06/2020 Telephone [facility] Radiology [address] [place] [address] Marc Khan MD [address] [id number] [address] [place], [place] [id number] Social History Tobacco Use Types Packs/Day Years Used Date Smoking Tobacco: Former Cigarettes 1.5 40 0 04/11/1978 - 2017 Smokeless Tobacco: Never Alcohol Use Standard Drinks/Week Comments Yes 2 (1 standard drink = 0.6 oz pur e alcohol) Sex and Gender Information Value Date Recorded Sex Assigned at Not on file Legal Sex Male 4:54 AM MARKETING PROFESSIONAL Gender Identity Not on file Sexual Orientation Straight 05/03/2020 10 :36 AM CDT documented as of this encounter Plan of Treatment Scheduled Procedures Name Priority Associated Diagnoses Date/Ti me TRANSPLANT KIDNEY ESRD (end stage renal disease) (HCC) documented as of this encounter Visit Diagnoses Not on filedocumented in this encounter Care Teams Acid Polymerization Operator Relationship Specialty Start Date End Date Gerardo Shah MD PCP - General Internal Medicine 09/30/18 Suzette Strickland MD [address] [facility] [address] [place] [address] Referring Physician Nephrology 02/15/20 Rita Tapia, RN [address] [place] [address] Registered Nurse Leadership Recruiter 02/15/20 documented as of this encounter
--- OUTSIDE RECORDS SUMMARY | 2025-02-06 10:16 | XMS_ITS ---
Author Organization [facility] [address] Address [address] [place] [address] Care Team Providers Care Hair Salon Manager Name Role Phone Gerardo Shah MD Primary Care Provider Suzette Strickland MD Unavailable [phone] Rita Tapia RN Unavailable [phone] Transplant Episode Kidney Candidate [facility] ([place], [place]) [facility] Center waitlisted on 08/03/2020 Marked as Active on 08/15/2020 Reason: Listed in [facility] Kidney CoordinatorJo Aviva Tapia RN Email: N/A Scores Score Value Updated Exceptions/Reas ons CPRA 0 08/31/2020 EPTS (Calc) 62 02/06/2025 Care Team Name Role Phone Fax Email Rita Tapia RN Kidney Coordinator [phone] N/A Suzette Strickland MD Referring Physician [phone] N/A Zhane Hatfield Tallow Pumper [phone] N/A N/A Events Pre-Transplant Referred: 01/07/2020 Evaluation began: 02/18/2020 Committee: 08/01/2020 Center waitlisted: 08/03/2020 Dialysis History Dialysis History Start End Type Comments Center 11/09/2020 Hemo Mon,Wed,Fri 6am [facility] Dialysis Center Information Center Phone Fax Address [facility] [phone] [facility] [address]
--- OUTSIDE RECORDS SUMMARY | 2025-02-06 10:16 | XMS_ITS | Clinical Summary ---
Author Organization [facility] Address [address], [address] [address] Phone Care Team Providers Care Wire Photo Operator News Name Role Phone Gerardo Shah MD Primary Care Provider [phone] Stan Mendez DO Unavailable [phone] Social History Tobacco Use Types Packs/Day Years Used Date Smoking Tobacco: Never Assessed Sex and Gender Information Value Date Recorded Sex Assigned at Not on file Legal Sex Male 12:33 PM EDUCATIONAL SPECIALIST Gender Identity Not on file Sexual [...] patient's age to complete this topic Insurance [facility] Care Teams Wire Photo Operator News Relationship Specialty Start Date End Date Gerardo Shah MD [address] [place] [address] PCP - General Internal Medicine 11/05/18 Stan Mendez DO [address] [place] [address] Gastroenterology 11/05/18
--- OUTSIDE RECORDS SUMMARY | 2025-02-06 10:16 | XMS_ITS | Encounter Summary ---
Author Organization [facility] Address [address] [place] [address] Phone Care Team Providers Care Salon Stylist Name Role Phone Gerardo Shah MD Primary Care Provider [phone] Reason for Visit * Reason Comments Med Refill Encounter Details Date Type Department Care Team (Late st Contact Info) Description 06/21/2022 Refill [facility] Nephrology and Hypertension [facility], [address] [address] Suzette Strickland MD [address] [facility], [address] [place] [address] Social History Tobacco Use Types Packs/Day Years [...] on file Legal Sex Male 10:33 AM [facility] Gender Identity Not on file Sexual Orientation Not on file documented as of this encounter Plan of Treatment Not on file documented as of this encounter Visit Diagnoses Not on filedocumented in this encounter Care Teams Salon Stylist Relationship Specialty Start Date End Date Gerardo Shah MD [address] [place] [address] PCP - General Internal Medicine 12/28/19 documented as of this encounter
--- NOTE | 2025-02-06 10:18 | ECG_ITS ---
Test Date: 2025-02-06 10:24:16 Measurements Intervals [place] Rate: 93 P: 149 GA: 144 QRS: 125 QRSD: 98 T: 149 QT: 338 QTc: 422 Interpretive Statements SINUS RHYTHM ARM LEADS REVERSED INCOMPLETE RIGHT BUNDLE BRANCH BLOCK MINIMAL Q WAVES- LATERAL LEADS BORDERLINE ST-T WAVE ABNORMALITY- INFERIOR LEADS BASELINE WANDER- I, III, AVL BORDERLINE ECG Compared to ECG 10/11/2024 14:19:33 No significant changes Electronically Signed On 02-06-2025 14:39:08 CDT by Manny Urban D.O.
[2025-02-06 10:24] VITALS: BP 128/82; PULSE 94; RESP 21; TEMP 36.8; O2SAT 95
[2025-02-06 10:31] VITALS: BP 138/93; PULSE 92; RESP 14; O2SAT 94
--- OUTSIDE RECORDS SUMMARY | 2025-02-06 10:36 | XMS_ITS | Clinical Summary ---
Author Organization [facility] [address] Address [address] [place] [address] Care Team Providers Care Mail Handler Assistant Name Role Phone Gerardo Shah MD Primary Care Provider [phone] Suzette Strickland MD Unavailable [phone] Rita Tapia RN Unavailable [phone] Allergies No known active allergies Medications [...] (09/29/2020): Added automatically from request for surgery [id number] Encounter for surgical after care following surgery of circulatory system 09/28/2020 Stage 5 chronic kidney disea se on chronic dialysis ([facility]) 08/04/2020 Overview (08/04/2020): Added automatically from request for surgery [id number] End-stage renal disease (ESRD) 06/22/2020 Overview (06/22/2020): Added automatically from request for surgery [id number] Autosomal dominant polycystic kidney disease 06/2020 Overview (05/05/2020): Added automatically from request for surgery [id number] Polycystic kidney disease, autosomal dominant Stage 4 chronic kidney disease 04/12/2020 Pre-transplant evaluation for kidney transplant 04/12/2020 Secondary hyperparathyroidism 04/12/2020 Other chest pain 12/23/2018 End stage renal disease Acute postoperative abdominal pain Resolved Problems Problem Noted Date Diagnosed Date Resolved Date Coronary arteriosclerosis 06/08/2021 Encounters Date Type Department Care Team Description 12/21/2024 10:00 AM ORIENTATION & MOBILITY SPECIALIST - 12/21/2024 11:59 PM ORIENTATION & MOBILITY SPECIALIST [place] [address] ESRD (end stage renal disease) (HCC) Discharge Disposition: Discharge to home or self care 11/10/2024 8:00 AM ORIENTATION & MOBILITY SPECIALIST Office Visit [facility] Medical Group Cardiology [address] [place] [address] Danna Reynoso, EEZQUIEL Prinzmetal's angina (Primary Dx) from Last 3 [...] on file Legal Sex Male 4:54 AM ORIENTATION & MOBILITY SPECIALIST Gender Identity Not on file Sexual Orientation Straight 05/03/2020 10 :36 AM CDT Obstetrics History Last Filed Vital Signs Vital Sign Reading Time Taken Comments Blood Pressure 130/70 11/10/2024 7:57 AM ORIENTATION & MOBILITY SPECIALIST Pulse 67 11/10/2024 7:57 AM ORIENTATION & MOBILITY SPECIALIST Temperature 36.3 C (97.4 F) 09/07/2021 1:21 PM ORIENTATION & MOBILITY SPECIALIST Respiratory Rate 16 10/12/2020 1:20 PM ORIENTATION & MOBILITY SPECIALIST Oxygen Saturation 98% 11/10/2024 7:57 AM ORIENTATION & MOBILITY SPECIALIST Inhaled Oxygen Concentration - - Weight 82.1 kg (180 lb 14.4 oz) 11/10/2024 7:57 AM ORIENTATION & MOBILITY SPECIALIST Height 190.5 cm (6' 3 ) 11/10/2024 7:57 AM ORIENTATION & MOBILITY SPECIALIST Body Mass Index 22.61 11/10/2024 7:57 AM ORIENTATION & MOBILITY SPECIALIST Plan of Treatment Scheduled Procedures Name Priority [...] AND CLASS II) Routine 12/21/2024 10:00 AM ORIENTATION & MOBILITY SPECIALIST ESRD (end stage renal disease) (HCC) HLA ANTIBODY SCREEN BY PRA OR SAB PER SCHEDULE (CLASS I AND CLASS II) Routine 12/21/2024 10:00 AM ORIENTATION & MOBILITY SPECIALIST ESRD (end stage renal disease) (HCC) HEPATITIS C ANTIBODY Routine 11/08/2022 8:15 AM ORIENTATION & MOBILITY SPECIALIST Stage 5 chronic kidney disease on chronic dialysis (HCC) PSA SCREEN Routine 11/08/2022 8:15 AM ORIENTATION & MOBILITY SPECIALIST Stage 5 chronic kidney disease on chronic dialysis (HCC) from Last 3 Months or Most Recently Relevant to Health Maintenance Results * HLA Antibody Screen by PRA or SAB per Schedule (Class I and Class II) (12/21/2024 10:00 AM ORIENTATION & MOBILITY SPECIALIST) Blood 12/21/2024 10:0 0 AM ORIENTATION & MOBILITY SPECIALIST Narrative HISTOTRAC - ORIENTATION & MOBILITY SPECIALIST Sample received in lab. Single Antigen Antibody Screen ordered. us Alonso Pruitt MD LAB BLOOD ORDERABLES Final Resu lt HISTOTRAC * HLA Antibody Screen - SAB (Class I and Class II) (12/21/2024 10:00 AM ORIENTATION & MOBILITY SPECIALIST) Class I Treatment EDTA HISTOTRAC Class I [...] DPB1*01:01, DPB1*11:01 HISTOTRAC 12/21/2024 10:0 0 AM ORIENTATION & MOBILITY SPECIALIST 12/25/2024 9:18 AM ORIENTATION & MOBILITY SPECIALIST Narrative HISTOTRAC - 12/25/2024 9:18 AM ORIENTATION & MOBILITY SPECIALIST Single-antigen HLA antibody screen is performed on serum samples using a method developed and validated by the [facility] HLA laboratory based on an FDA-approved IVD kit (LABScreen Single-Antigen, [employer], [place], [place]). All patient serum samples are pretreated with EDTA before the screen to prevent complement interference. Additional serum treatments, such as adsorption and DTT treatment, may be performed as indicated. Interpretive comments: Low risk: MFI [id number]. Moderate risk: MFI [id number]. Increased risk: MFI >/= 5000. The presence [...] antigens to avoid. Testing performed at the [facility], [address] [place] [address], 5th floor, [place], [address]. [facility] # [id number]. Nicole Rivera, Ph.D., Industrial Maintenance Manager, HLA Laboratory Harman Flores M.D., Ph.D., Alumni Coordinator, HLA Laboratory Aviva Conway, Ph.D., CLIA Alumni Coordinator, [facility] Current methodology and interpretive comments last revised on 11/22/2022. us Alonso Pruitt MD LAB BLOOD ORDERABLES Final Resu lt HISTOTRAC * PSA screen (11/08/2022 8:15 AM ORIENTATION & MOBILITY SPECIALIST) PSA-Total 0.93 <=5.40 ng/mL [facility] Comment: Interpretive Data AGE SEX REFERENCE [...] last revised 22. Blood 11/08/2022 8:15 AM ORIENTATION & MOBILITY SPECIALIST 11/08/2022 8:57 AM ORIENTATION & MOBILITY SPECIALIST us Perla Valadez MD LAB BLOOD ORDERABLE S Final Result Performing Organization Address City/[facility] Co de Phone Number [facility] [place] [address] * Hepatitis C antibody (11/08/2022 8:15 AM ORIENTATION & MOBILITY SPECIALIST) Hep C Ab Nonreactive Nonreactive [facility] Comment:Antibodies to HCV no t detected. Does NOT exclude the possibility of recent exposure to HCV. Current interpretive data was last revised on 22 Blood 11/08/2022 8:15 AM ORIENTATION & MOBILITY SPECIALIST 11/08/2022 8:57 AM ORIENTATION & MOBILITY SPECIALIST Perla Valadez MD LAB MICROBIOLOGY - GENERAL ORDERABLES Final Result Performing Organization Address [facility] de Phone Number [facility] [place] [address] from Last 3 Months or Most Recently Relevant to Health Maintenance Insurance [facility] MEDICARE [facility] MEDICARE [facility] MEDICARE [facility] MEDICARE Advance Directives For more information, please contact: [phone] * Full Code (Latest Code Status on File) Date Activated Date Inactivated Comments 07/03/2020 3:51 PM 07/07/2020 4:44 PM * Full Code Date Activated Date Inactivated Comments 06/14/2020 5:08 PM 06/18/2020 10:40 PM Care Teams Mail Handler Assistant Relationship Specialty Start Date End Date Gerardo Shah MD PCP - General Internal Medicine 09/30/18 Suzette Strickland MD [address] [facility] [place] [address] Referring Physician Nephrology 02/15/20 Rita Tapia, RN [address] [place] [address] Registered Nurse Manager Internal 02/15/20
--- OUTSIDE RECORDS SUMMARY | 2025-02-06 10:36 | XMS_ITS | Referral Summary ---
Author Organization [facility] [place] [address] [place] [address] [address] [place] [address] Care Team Providers Care Metal Drawer Name Role Phone Gerardo Shah MD Primary Care Provider [phone] Suzette Strickland MD Unavailable [phone] Rita Tapia RN Unavailable [phone] Encounters Date Type Department Care Team Description 12/21/2024 10:00 AM ABATTOIR SUPERVISOR - 12/21/2024 11:59 PM ABATTOIR SUPERVISOR Hospital Encounter [address] [address] ESRD (end stage renal disease) ([facility]) Discharge Disposition: Discharge to home or self care 11/10/2024 8:00 AM ABATTOIR SUPERVISOR Office Visit [facility] Medical Group Cardiology [address] [facility] [address] [place] [address] Danna Reynoso NP Prinzmetal's angina [...] (09/29/2020): Added automatically from request for surgery [id number] Encounter for surgical after care following surgery of circulatory system 09/28/2020 Stage 5 chronic kidney disea se on chronic dialysis ([facility]) 08/04/2020 Overview (08/04/2020): Added automatically from request for surgery [id number] End-stage renal disease (ESRD) 06/22/2020 Overview (06/22/2020): Added automatically from request for surgery [id number] Autosomal dominant polycystic kidney disease 06/2020 Overview (05/05/2020): Added automatically from request for surgery [id number] Polycystic kidney disease, autosomal dominant Stage 4 [...] on file Legal Sex Male 4:54 AM ABATTOIR SUPERVISOR Gender Identity Not on file Sexual Orientation Straight 05/03/2020 10 :36 AM CDT Last Filed Vital Signs Vital Sign Reading Time Taken Comments Blood Pressure 130/70 11/10/2024 7:57 AM ABATTOIR SUPERVISOR Pulse 67 11/10/2024 7:57 AM ABATTOIR SUPERVISOR Temperature 36.3 C (97.4 F) 09/07/2021 1:21 PM ABATTOIR SUPERVISOR Respiratory Rate 16 10/12/2020 1:20 PM ABATTOIR SUPERVISOR Oxygen Saturation 98% 11/10/2024 7:57 AM ABATTOIR SUPERVISOR Inhaled Oxygen Concentration - - Weight 82.1 kg (180 lb 14.4 oz) 11/10/2024 7:57 AM ABATTOIR SUPERVISOR Height 190.5 cm (6' 3 ) 11/10/2024 7:57 AM ABATTOIR SUPERVISOR Body Mass Index 22.61 11/10/2024 7:57 AM ABATTOIR SUPERVISOR Plan of Treatment Scheduled Procedures Name Priority Associated Diagnoses Date/Ti me TRANSPLANT KIDNEY ESRD (end stage renal disease) (HCC) Procedures Procedure Name Priority Date/Time Associated Diagnosis Comments HLA ANTIBODY SCREEN - SAB (CLASS I AND CLASS II) Routine 12/21/2024 10:00 AM ABATTOIR SUPERVISOR ESRD (end stage renal disease) (HCC) HLA ANTIBODY SCREEN BY PRA OR SAB PER SCHEDULE (CLASS I AND CLASS II) Routine 12/21/2024 10:00 AM ABATTOIR SUPERVISOR ESRD (end stage renal disease) (HCC) HEPATITIS C ANTIBODY Routine 11/08/2022 8:15 AM ABATTOIR SUPERVISOR Stage 5 chronic kidney disease on chronic dialysis (HCC) PSA SCREEN Routine 11/08/2022 8:15 AM ABATTOIR SUPERVISOR Stage 5 chronic kidney disease on chronic dialysis (HCC) from Last 3 Months or Most Recently Relevant to Health Maintenance Results * HLA Antibody Screen by PRA or SAB per Schedule (Class I and Class II) (12/21/2024 10:00 AM ABATTOIR SUPERVISOR) Blood 12/21/2024 10:0 0 AM ABATTOIR SUPERVISOR Narrative HISTOTRAC - ABATTOIR SUPERVISOR Sample received in lab. Single Antigen Antibody Screen ordered. us Alonso Pruitt MD LAB BLOOD ORDERABLES Final Resu lt HISTOTRAC * HLA Antibody Screen - SAB (Class I and Class II) (12/21/2024 10:00 AM ABATTOIR SUPERVISOR) Class I Treatment EDTA HISTOTRAC Class I [...] DPB1*01:01, DPB1*11:01 HISTOTRAC 12/21/2024 10:0 0 AM ABATTOIR SUPERVISOR 12/25/2024 9:18 AM ABATTOIR SUPERVISOR Narrative HISTOTRAC - 12/25/2024 9:18 AM ABATTOIR SUPERVISOR Single-antigen HLA antibody screen is performed on serum samples using a method developed and validated by the [facility] HLA laboratory based on an FDA-approved IVD kit (LABScreen Single-Antigen, [employer], [place], [place]). All patient serum samples are pretreated with EDTA before the screen to prevent complement interference. Additional serum treatments, such as adsorption and DTT treatment, may be performed as indicated. Interpretive comments: Low risk: MFI [id number]. Moderate risk: MFI [id number]. Increased risk: MFI >/= 5000. The presence [...] antigens to avoid. Testing performed at the [facility], [address] [place] [address], 5th floor, [place], [address]. [facility] # [id number]. Nicole Rivera, Ph.D., Brine Maker, HLA Laboratory Harman Flores M.D., Ph.D., Scrap Drop Engineer, HLA Laboratory Aviva Conway, Ph.D., CLIA Scrap Drop Engineer, [facility] Current methodology and interpretive comments last revised on 11/22/2022. us Alonso Pruitt MD LAB BLOOD ORDERABLES Final Resu lt HISTOTRAC * PSA screen (11/08/2022 8:15 AM ABATTOIR SUPERVISOR) PSA-Total 0.93 <=5.40 ng/mL [facility] Comment: Interpretive Data AGE SEX REFERENCE INTERVAL [...] last revised 22. Blood 11/08/2022 8:15 AM ABATTOIR SUPERVISOR 11/08/2022 8:57 AM ABATTOIR SUPERVISOR Perla Valadez MD LAB BLOOD ORDERABLE S Final Result Performing Organization Address City/[facility]/ZIP Co de Phone Number [facility] [place] [address] * Hepatitis C antibody (11/08/2022 8:15 AM ABATTOIR SUPERVISOR) Pathologist [facility] Hep C Ab Nonreactive Nonreactive [facility] Comment:Antibodies to HCV no t detected. Does NOT exclude the possibility of recent exposure to HCV. Current interpretive data was last revised on 22 Blood 11/08/2022 8:15 AM ABATTOIR SUPERVISOR 11/08/2022 8:57 AM ABATTOIR SUPERVISOR Perla Valadez MD LAB MICROBIOLOGY - GENERAL ORDERABLES Final Result [facility] [place] [address] from Last 3 Months or Most Recently Relevant to Health Maintenance Insurance [facility] MEDICARE [facility] MEDICARE [facility] MEDICARE [facility] MEDICARE [facility] Address: [address] [address] [place] [address] Advance Directives For more information, please contact: [phone] * Full Code (Latest Code Status on File) Date Activated Date Inactivated Comments 07/03/2020 3:51 PM 07/07/2020 4:44 PM * Full Code Date Activated Date Inactivated Comments 06/14/2020 5:08 PM 06/18/2020 10:40 PM Care Teams Metal Drawer Relationship Specialty Start Date End Date Gerardo Shah MD PCP - General Internal Medicine 09/30/18 Suzette Strickland MD [address] [place] [address] Referring Physician Nephrology 02/15/20 Rita Tapia, RN [address] [place] [address] Registered Nurse Home Appliance Washing Machine Mechanic 02/15/20
--- OUTSIDE RECORDS SUMMARY | 2025-02-06 10:36 | XMS_ITS | Encounter Summary ---
Author Organization [facility] Address [address] [place] [address] Phone Care Team Providers Care Ceramic Engineering Professor Name Role Phone Gerardo Shah MD Primary Care Provider [phone] Reason for Visit * Reason Comments Med Refill Encounter Details Date Type Department Care Team (Late st Contact Info) Description 06/04/2022 Refill [facility] Nephrology and Hypertension [facility], [address] [address] Suzette Strickland MD [address] [facility], [address] [place] [address] Social History Tobacco Use Types Packs/Day Years [...] on file Legal Sex Male 10:33 AM [facility] Gender Identity Not on file Sexual Orientation Not on file documented as of this encounter Plan of Treatment Not on file documented as of this encounter Visit Diagnoses Not on filedocumented in this encounter Care Teams Ceramic Engineering Professor Relationship Specialty Start Date End Date Gerardo Shah MD [address] [place] [address] PCP - General Internal Medicine 12/28/19 documented as of this encounter
--- OUTSIDE RECORDS SUMMARY | 2025-02-06 10:36 | XMS_ITS ---
Author Organization [facility] [address] Address [address] [place] [address] Care Team Providers Care Education Paraprofessional Name Role Phone Gerardo Shah MD Primary Care Provider [phone] Suzette Strickland MD Unavailable [phone] Rita Tapia RN Unavailable [phone] Active Problems Patient Care Coordination No te Formatting of this note migh t be different from the original. Verbal consent - BlanquitaMeghann Robin Problem Noted Date Diagnosed Date Prinzmetal's angina 03/12/2023 Malignant neoplasm of right kidney 09/07/2021 Gastroesophageal reflux disease 06/08/2021 Hypertension 06/08/2021 Vitamin B12 deficiency 06/08/2021 Kidney disease 09/29/2020 Overview (09/29/2020): Added automatically from request for surgery [id number] Encounter for surgical after care following surgery of circulatory system 09/28/2020 Stage 5 chronic kidney disea se on chronic dialysis (CMS/HCC) 08/04/2020 Overview (08/04/2020): Added automatically from request for surgery [id number] End-stage renal disease (ESRD) 06/22/2020 Overview (06/22/2020): Added automatically from request for surgery [id number] Autosomal dominant polycystic kidney disease 06/2020 Overview (05/05/2020): Added automatically from request for surgery [id number] Polycystic kidney disease, autosomal dominant Stage 4 [...]
--- OUTSIDE RECORDS SUMMARY | 2025-02-06 10:36 | XMS_ITS | Encounter Summary ---
Author Organization [facility] Healthcare Address [address] [place] [address] Care Team Providers Care Lamp Shades Supervisor Name Role Phone Gerardo Shah MD Primary Care Provider [phone] Suzette Strickland MD Unavailable [phone] Rita Tapia RN Unavailable [phone] Encounter Details Date Type Department Care Team (Late st Contact Info) Description 09/06/2020 Telephone [facility] Radiology [address] [place] [address] Marc Khan MD [address] [id number] [place], [place] [id number] Social History Tobacco Use Types Packs/Day Years Used Date Smoking Tobacco: Former Cigarettes 1.5 40 0 04/11/1978 - 2017 Smokeless Tobacco: Never Alcohol Use Standard Drinks/Week Comments Yes 2 (1 standard drink = 0.6 oz pur e alcohol) Sex and Gender Information Value Date Recorded Sex Assigned at Not on file Legal Sex Male 4:54 AM HEALTH CARE COACH Gender Identity Not on file Sexual Orientation Straight 05/03/2020 10 :36 AM CDT documented as of this encounter Plan of Treatment Scheduled Procedures Name Priority Associated Diagnoses Date/Ti me TRANSPLANT KIDNEY ESRD (end stage renal disease) (HCC) documented as of this encounter Visit Diagnoses Not on filedocumented in this encounter Care Teams Lamp Shades Supervisor Relationship Specialty Start Date End Date Gerardo Shah MD PCP - General Internal Medicine 09/30/18 Suzette Strickland MD [address] [facility] [address] [place] [address] Referring Physician Nephrology 02/15/20 Rita Tapia, RN [address] [place] [address] Registered Nurse Finance Intern 02/15/20 documented as of this encounter
--- OUTSIDE RECORDS SUMMARY | 2025-02-06 10:36 | XMS_ITS ---
Author Organization [facility] [place] [address] Address [address] [place] [address] Care Team Providers Care National Investigative Producer Name Role Phone Gerardo Shah MD Primary Care Provider Suzette Strickland MD Unavailable [phone] Rita Tapia RN Unavailable [phone] Transplant Episode Kidney Candidate [facility] ([place], [place]) [facility] Center waitlisted on 08/03/2020 Marked as Active on 08/15/2020 Reason: Listed in [facility] Kidney CoordinatorJo Aviva Tapia RN Email: N/A Scores Score Value Updated Exceptions/Reas ons CPRA 0 08/31/2020 EPTS (Calc) 62 02/06/2025 Care Team Name Role Phone Fax Email Rita Tapia RN Kidney Coordinator [phone] N/A Suzette Strickland MD Referring Physician [phone] N/A [facility] Financial Coordinator [phone] N/A N/A Events Pre-Transplant Referred: 01/07/2020 Evaluation began: 02/18/2020 Committee: 08/01/2020 Center waitlisted: 08/03/2020 Dialysis History Dialysis History Start End Type Comments Center 11/09/2020 Hemo Mon,Wed,Fri 6am [facility] Dialysis Center Information Center Phone Fax Address [facility] [phone] [facility] [address] [facility] [address]
--- OUTSIDE RECORDS SUMMARY | 2025-02-06 10:36 | XMS_ITS | Clinical Summary ---
Author Organization [facility] Address [address], [address] [address] Phone Care Team Providers Care Assistant Manager Of Operations Name Role Phone Gerardo Shah MD Primary Care Provider Stan Mendez DO Unavailable [phone] Social History Tobacco Use Types Packs/Day Years Used Date Smoking Tobacco: Never Assessed Sex and Gender Information Value Date Recorded Sex Assigned at Not on file Legal Sex Male 12:33 PM BOTTOM CRANE OPERATOR Gender Identity Not on file Sexual [...] patient's age to complete this topic Insurance [facility] Care Teams Assistant Manager Of Operations Relationship Specialty Start Date End Date Gerardo Shah MD [address] [place] [address] PCP - General Internal Medicine 11/05/18 Stan Mendez DO [address] [place] [address] Gastroenterology 11/05/18
[2025-02-06 10:37] LABS: Basophils Absolute Auto 0.1 K/mm3 (0.0-0.1); Basophils Percent Auto 0.5 % (0.2-1.2); Eosinophils Absolute Auto 0.1 K/mm3 (0-0.3); Eosinophils Percent Auto 0.9 % (0-4.4); Hematocrit 33.5 % (42.0-52.0); Hemoglobin 10.2 g/dL (14.0-18.0); Immature Granulocyte Absolute 0.07 K/mm3 (0.00-0.031); Immature Granulocyte Percent A 0.6 % (0-0.5); Lymphocytes Absolute Auto 1.65 K/mm3 (0.9-3.2); Lymphocytes Percent Auto 15.1 % (18.3-44.2); Mean Corpuscular HGB Conc 30.4 g/dl (32-36); Mean Corpuscular Hemoglobin 31.1 pg (26-34); Mean Corpuscular Volume 102.1 fl (80-100); Mean Platelet Volume 9.3 fl (7.4-10.4); Monocytes Absolute Auto 1.3 K/mm3 (0.1-0.6); Monocytes Percent Auto 11.7 % (2.6-8.5); Neutrophils Absolute Auto 7.8 K/mm3 (1.3-6.7); Neutrophils Percent Auto 71.2 % (45.5-73.1); Platelet Count Result 412 k/mm3 (150-375); Red Blood Count 3.28 M/mm3 (4.6-6.20); Red Cell Distribution Width 14.7 % (11.5-14.5)
--- OUTSIDE RECORDS SUMMARY | 2025-02-06 10:37 | XMS_ITS | Encounter Summary ---
Author Organization [facility] Address [address] [place] [address] Phone Care Team Providers Care Market Analyst Name Role Phone Gerardo Shah MD Primary Care Provider [phone] Reason for Visit * Reason Comments Med Refill Encounter Details Date Type Department Care Team (Late st Contact Info) Description 06/21/2022 Refill [facility] Nephrology and Hypertension [facility], [address] [address] Suzette Strickland MD [address] [place], [address] [place] [address] Social History Tobacco Use Types Packs/Day Years [...] on file Legal Sex Male 10:33 AM [facility] Gender Identity Not on file Sexual Orientation Not on file documented as of this encounter Plan of Treatment Not on file documented as of this encounter Visit Diagnoses Not on filedocumented in this encounter Care Teams Market Analyst Relationship Specialty Start Date End Date Gerardo Shah MD [address] [place] [address] PCP - General Internal Medicine 12/28/19 documented as of this encounter
--- OUTSIDE RECORDS SUMMARY | 2025-02-06 10:37 | XMS_ITS | Clinical Summary ---
Author Organization [facility] Address [address] [place] [address] Phone Care Team Providers Care Press Operator [employer] Name Role Phone Gerardo Shah MD Primary Care Provider [phone] Allergies No known active allergies Medications amLODIPine [...] (05/11/2020): Added automatically from request for surgery [id number] Chronic kidney disease stage 4 04/12/2020 Secondary [...] Comments Blood Pressure 136/80 09/19/2020 8:37 AM HAMMER RUNNER Pulse - - Temperature 36.8 C (98.2 F) 09/19/2020 8:37 AM HAMMER RUNNER Respiratory Rate 18 09/19/2020 8:37 AM HAMMER RUNNER Oxygen Saturation - - Inhaled Oxygen Concentration - - Weight 95.3 kg (210 lb) 09/19/2020 8:37 AM HAMMER RUNNER Height 190.5 cm (6' 3 ) 09/19/2020 8:37 AM HAMMER RUNNER Body Mass Index 26.25 09/19/2020 8:37 AM HAMMER RUNNER Plan of Treatment Health Maintenance Due Date Last Done Comments Influenza Vaccine (Season Ended) 2025 Insurance Care Teams Press Operator [employer] Relationship Specialty Start Date End Date Gerardo Shah MD [address] [place] [id number] PCP - General Internal Medicine 12/28/19
[2025-02-06 10:50] LABS: Alanine Aminotransferase 11 U/L (6-50); Alkaline Phosphatase 101 U/L (38-126); Anion Gap 10 mmol/L (4-12); Aspartate Amino Transferase 18 U/L (17-59); Bilirubin,Total 0.6 mg/dL (0.2-1.3); Blood Urea Nitrogen 35 mg/dL (9-20); Calcium 8.1 mg/dL (8.4-10.2); Carbon Dioxide 32 mmol/L (22-30); Chloride 97 mmol/L (98-107); Estimated CRCL calculation 12 ml/min; Estimated Glomerular Filt Rate 9; Glucose 98 mg/dL (65-110); Lipase 43 U/L (23-300); Partial Thromboplastin Time 31.3 Seconds (22.3-36.8); Potassium 4.9 mmol/L (3.4-5.0); Sodium 139 mmol/L (137-145)
[2025-02-06 11:03] LABS: Troponin I < 0.012 ng/mL (0.000-0.034)
[2025-02-06 11:15] VITALS: BP 136/88; PULSE 94; RESP 12; TEMP 36.6; O2SAT 97
[2025-02-06 12:01] VITALS: BP 132/86; PULSE 95; RESP 16; TEMP 36.6; O2SAT 94
[2025-02-06 12:13] LABS: Influenza A QL RT-PCR Negative (Negative); Influenza B QL RT-PCR Negative (Negative); RSV RNA, RT-PCR Negative (Negative); SARS-CoV-2 RNA PCR Negative (Negative)
--- NOTE | 2025-02-06 12:43 | ED.GENADULT ---
HPI - General Adult General Chief complaint: Chest Pain Stated complaint: CHEST PAIN Time Seen by Provider: 02/06/25 10:23 History of Present Illness HPI narrative: This is a 64-year-old male with autosomal dominant polycystic kidney disease, end-stage renal disease on hemodialysis Saturday presenting for cough and chest pain. Patient has been coughing for the last 2 months. However last 3 days he has developed a sharp pleuritic left-sided chest pain that radiates to his back. His cough is now productive of green sputum. He has not had any fevers chills nausea vomiting or diarrhea. Related Data Home Medications ?Medication ?Instructions ?Recorded ?Confirmed ?Last Taken ?Type amlodipine 5 mg tablet (Norvasc) See Rx Instructions .Route .COMPLEX 12/21/19 10/11/24 05/13/23 History aspirin 81 mg tablet,delayed See Rx Instructions .Route .COMPLEX 12/21/19 10/11/24 05/13/23 History release (Sheng Low Dose Aspirin) Allergies Allergy/AdvReac Type Severity Reaction Status Date / Time No Known Allergies Allergy Verified 02/06/25 10:14 [facility] Past Medical History Medical History NSTEMI (non-ST elevated myocardial infarction) Renal osteodystrophy ESRD (end stage renal disease) on dialysis CKD (chronic kidney disease) stage 4, GFR 15-29 ml/min Colon cancer screening Anemia Ankle fracture, left Polycystic kidney disease GERD (gastroesophageal reflux disease) Pneumonia Asthma Emphysema of lung COPD (chronic obstructive pulmonary disease) HTN (hypertension) Myocardial infarction NSTEMI Surgical History Surgical History History of nephrectomy Right History of bladder surgery S/P cardiac catheterization Family History Family History Mother PCK (polycystic kidney disease) Social History Social History Smoking packs per day: 1.5 Smoking cigarettes per day: 30.0 Years smoked: 40 Smoking pack-years: 60.00 Smoking status: Former smoker Alcohol intake: never Substance use: never Substance use type: does not use Lack of Transportation: No Lack of Food: Never True Current Housing: I Have Housing Concerned About Future Housing: No Difficulty Paying Gas/Electric Bills: No Difficulty Paying for Meds: No Currently Unemployed: No Education: High School Diploma/GED Difficulty w/ Childcare or Family Care: No Living arrangements: with family Gender identity (if verbalized by the patient): Male Sexual Orientation (if Verbalized by the Patient): Straight or Heterosexual Spiritual care concerns: No Exam Narrative: APPEARANCE: No apparent distress. Well-appearing Head: atraumatic. EYES: EOMI, NOSE: Atraumatic NECK: Trachea midline RESPIRATORY: 97% on room air, speaking in full sentences, rhonchi in the left lower lobe otherwise clear CARDIOVASCULAR: RRR, no peripheral edema, dialysis access in left upper extremity with palpable thrill, +2 pulses in all extremities ABDOMINAL: Non-distended soft nontender MUSCULOSKELETAl: No obvious deformities NEURO: Alert. Moving 4/4 extremities SKIN:: Warm, dry. Normal color PSYCHIATRIC: Normal affect Course Vital Signs Vital signs: Vital Signs Temperature 98.2 F 02/06/25 10:24 Pulse Rate 94 02/06/25 10:24 Respiratory Rate 21 H 02/06/25 10:24 Blood Pressure 128/82 02/06/25 10:24 Pulse Oximetry 95 02/06/25 10:24 Oxygen Delivery Room Air 02/06/25 10:24 Temperature 97.8 F 02/06/25 12:01 Pulse Rate 95 02/06/25 12:01 Respiratory Rate 16 02/06/25 12:01 Blood Pressure 132/86 02/06/25 12:01 Pulse Oximetry 94 02/06/25 12:01 Oxygen Delivery Room Air 02/06/25 12:41 Medical Decision Making [facility] Narrative Medical decision making narrative: -Course: This 64-year-old male presenting with productive cough and left-sided chest pain radiating to his back. CTA ordered to evaluate which showed tree-in-bud opacities in the left lower lobe which corresponds with the patient's pain. Patient has stable vital signs. He is well-appearing. He does not have a white count or any fevers. We will attempt outpatient management with po antibiotics although they have been given strict return precautions as he is high risk due to his medical comorbidities. Family is agreeable with this plan. Will be in the 1st dose of antibiotics here in the can fill the prescription tomorrow morning. Patient discharged. -DDX includes but is not limited to: Pneumonia, viral syndrome, bronchitis, PE, aortic dissection -Co-morbidities complicating care: End-stage renal disease on hemodialysis, polycystic kidney disease, CAD Independent EKG interpretation: Rhythm [sinus], Rate [93], [place] -[normal], [place] -[normal], QRS [narrow], QTC [normal], T waves -[negative for concerning inversions], ST Segments - [Negative for concerning elevations] Final interpretations: [Normal Sinus Rhythm] Vital Signs Vital Signs: Vital Signs Temperature 98.2 F 02/06/25 10:24 Pulse Rate 94 02/06/25 10:24 Respiratory Rate 21 H 02/06/25 10:24 Blood Pressure 128/82 02/06/25 10:24 Pulse Oximetry 95 02/06/25 10:24 Oxygen Delivery Room Air 02/06/25 10:24 Temperature 97.8 F 02/06/25 12:01 Pulse Rate 95 02/06/25 12:01 Respiratory Rate 16 02/06/25 12:01 Blood Pressure 132/86 02/06/25 12:01 Pulse Oximetry 94 02/06/25 12:01 Oxygen Delivery Room Air 02/06/25 12:41 Lab Data 02/06/25 10:32 02/06/25 10:32 Labs: Lab Results 02/06/25 02/06/25 Range/Units 10:32 11:34 WBC 11.0 H (4.5-10.0) K/mm3 RBC 3.28 L (4.6-6.20) M/mm3 Hgb 10.2 L (14.0-18.0) g/dL Hct 33.5 L (42.0-52.0) % MCV 102.1 H (80-100) fl MCH 31.1 (26-34) pg MCHC 30.4 L (32-36) g/dl RDW 14.7 H (11.5-14.5) % Plt Count 412 H (150-375) k/mm3 MPV 9.3 (7.4-10.4) fl Immature Gran % (Auto) 0.6 H (0-0.5) % Neut % (Auto) 71.2 (45.5-73.1) % Lymph % (Auto) 15.1 L (18.3-44.2) % Harding % (Auto) 11.7 H (2.6-8.5) % Eos % (Auto) 0.9 (0-4.4) % Baso % (Auto) 0.5 (0.2-1.2) % Lymph # (Auto) 1.65 (0.9-3.2) K/mm3 [place] # (Auto) 1.3 H (0.1-0.6) K/mm3 Eos # (Auto) 0.1 (0-0.3) K/mm3 Baso # (Auto) 0.1 (0.0-0.1) K/mm3 Abs Immat Gran (auto) 0.07 H (0.00-0.031) K/mm3 Absolute Neuts (auto) 7.8 H (1.3-6.7) K/mm3 Absolute Nucleated RBC 0.000 (0.0-0.012) K/mm3 Nucleated RBC % 0.0 (0.0-0.2) % PT 14.0 (11.1-14.7) Seconds INR 1.0 APTT 31.3 (22.3-36.8) Seconds Sodium 139 (137-145) mmol/L Potassium 4.9 (3.4-5.0) mmol/L Chloride 97 L (98-107) mmol/L Carbon Dioxide 32 H (22-30) mmol/L Anion Gap 10 (4-12) mmol/L BUN 35 H (9-20) mg/dL Creatinine 6.59 H (0.7-1.3) mg/dL Estim Creat Clear Calc 12 ml/min Estimated GFR 9 L (59 - ) Glucose 98 (65-110) mg/dL Lactic Acid 1.0 (0.7-2.0) mmol/L Calcium 8.1 L (8.4-10.2) mg/dL Total Bilirubin 0.6 (0.2-1.3) mg/dL AST 18 (17-59) U/L ALT 11 (6-50) U/L Alkaline Phosphatase 101 (38-126) U/L Troponin I < 0.012 (0.000-0.034) ng/mL Total Protein 7.0 (6.3-8.2) g/dL Albumin 4.0 (3.5-5.1) g/dL Lipase 43 (23-300) U/L Influenza A (RT-PCR) Negative (Negative) Influenza B (RT-PCR) Negative (Negative) RSV (RT-PCR) Negative (Negative) SARS-CoV-2 RNA (RT-PCR) Negative (Negative) Discharge Plan Discharge Clinical Impression: CAP (community acquired pneumonia) Patient Disposition: Home Condition: Stable Instructions: Antibiotic Form, Community Acquired Pneumonia (DC) Additional Instructions: You were seen in the emergency department for chest pain/cough. You have pneumonia in your left lung. Please complete the antibiotics as instructed. Please return to the ED if you feel his condition is getting worse including worsening chest pain, shortness of breath or weakness. Please follow-up with your primary care physician in 5-7 days. Patient Language: Upper Sorbian Prescriptions: New amoxicillin-pot clavulanate 875-125 mg tablet 1 tablet PO Q12H Qty: 20 0RF doxycycline hyclate 100 mg capsule 100 mg PO Q12H Qty: 20 0RF No Action pantoprazole 40 mg tablet,delayed release (DR/EC) 40 mg PO BID PRN (Reason: heartburn/esophagitis) Qty: 20 0RF pantoprazole [Protonix] 40 mg tablet,delayed release (DR/EC) 40 mg PO BID 28 Days Qty: 60 0RF oseltamivir [Tamiflu] 75 mg capsule 75 mg PO Q12H 5 Days Qty: 10 0RF amlodipine [Norvasc] 5 mg tablet See Rx Instructions .ROUTE .COMPLEX Rx Instructions: daily aspirin [Sheng Low Dose Aspirin] 81 mg Tablet,Delayed Release (Dr/Ec) See Rx Instructions .ROUTE .COMPLEX Rx Instructions: daily isosorbide mononitrate 30 mg Tablet Extended Release 24 Hr 30 mg PO QAM Qty: 30 2RF famotidine 40 mg tablet 40 mg PO DAILY Qty: 30 11RF bumetanide 1 mg tablet 1 mg PO DAILY Qty: 90 3RF Follow-up/Referrals: Gerardo Shah MD [Primary Care Provider] - 1 Week (PNA)
[2025-02-06] MEDS: AMOXICILLIN/CLAVULANATE K 875-125 MG TAB 1 TABLET PO (12:46)
[2025-02-06 12:47] VITALS: BP 133/76; PULSE 90; RESP 16; TEMP 36.6; O2SAT 95
[2025-02-06] MEDS: DOXYCYCLINE HYCLATE 100 MG TABLET PO (12:47)
== END 2025-02-06 12:59 | disposition home or self-care (01) ==
PROVIDERS: Emergency Provider Emergency Medicine; PCP Internal Medicine
DX: J18.9 Pneumonia, unspecified organism (principal); Z20.822 Contact with and (suspected) exposure to COVID-19; I12.0 Hypertensive chronic kidney disease with stage 5 chronic kidney disease or end stage renal disease; N18.6 End stage renal disease; Z99.2 Dependence on renal dialysis; N25.0 Renal osteodystrophy; J43.9 Emphysema, unspecified; I25.2 Old myocardial infarction; D64.9 Anemia, unspecified; K21.9 Gastro-esophageal reflux disease without esophagitis; Q61.2 Polycystic kidney, adult type; I45.10 Unspecified right bundle-branch block; R94.31 Abnormal electrocardiogram [ECG] [EKG]; Z90.5 Acquired absence of kidney; Z87.891 Personal history of nicotine dependence; Z79.82 Long term (current) use of aspirin; Z79.899 Other long term (current) drug therapy
CPT/HCPCS: 36415; 71046; 71275; 74174; 80053; 83605; 83690; 84484; 85025; 85610; 85730; 87637; 93005; 99284; A9270; Q9967

== ENCOUNTER 2025-02-18 08:43 | Outpatient (CLI) | payer OTHER, MEDICARE, SELFPAY ==
--- OUTSIDE RECORDS SUMMARY | 2025-02-18 09:12 | XMS_ITS | Referral Summary ---
Author Organization [facility] [address] Address [address] [place] [address] Care Team Providers Care Community Relations Police Lieutenant Name Role Phone Gerardo Shah MD Primary Care Provider [phone] Suzette Strickland MD Unavailable [phone] Keiry Tapia RN Unavailable [phone] Encounters Date Type Department Care Team Description 12/21/2024 10:00 AM [facility] - 12/21/2024 11:59 PM [facility] [place] Hospital Encounter [address] [address] ESRD (end stage renal disease) ([facility]) Discharge Disposition: Discharge to home or self care from Last 3 Months Allergies No known [...] (09/29/2020): Added automatically from request for surgery [id number] Encounter for surgical after care following surgery of circulatory system 09/28/2020 Stage 5 chronic kidney disea se on chronic dialysis ([facility]) 08/04/2020 Overview (08/04/2020): Added automatically from request for surgery [id number] End-stage renal disease (ESRD) 06/22/2020 Overview (06/22/2020): Added automatically from request for surgery [id number] Autosomal dominant polycystic kidney disease 06/2020 Overview (05/05/2020): Added automatically from request for surgery [id number] Polycystic kidney disease, autosomal dominant Stage 4 [...] on file Legal Sex Male 4:54 AM [facility] Gender Identity Not on file Sexual Orientation Straight 05/03/2020 10 :36 AM CDT Last Filed Vital Signs Vital Sign Reading Time Taken Comments Blood Pressure 130/70 11/10/2024 7:57 AM [facility] Pulse 67 11/10/2024 7:57 AM [facility] Temperature 36.3 C (97.4 F) 09/07/2021 1:21 PM [facility] Respiratory Rate 16 10/12/2020 1:20 PM [facility] Oxygen Saturation 98% 11/10/2024 7:57 AM [facility] Inhaled Oxygen Concentration - - Weight 82.1 kg (180 lb 14.4 oz) 11/10/2024 7:57 AM [facility] Height 190.5 cm (6' 3 ) 11/10/2024 7:57 AM [facility] Body Mass Index 22.61 11/10/2024 7:57 AM [facility] Plan of Treatment Scheduled Procedures Name Priority Associated Diagnoses Date/Ti me TRANSPLANT KIDNEY ESRD (end stage renal disease) (HCC) Procedures Procedure Name Priority Date/Time Associated Diagnosis Comments HLA ANTIBODY SCREEN - SAB (CLASS I AND CLASS II) Routine 12/21/2024 10:00 AM [facility] ESRD (end stage renal disease) (HCC) HLA ANTIBODY SCREEN BY PRA OR SAB PER SCHEDULE (CLASS I AND CLASS II) Routine 12/21/2024 10:00 AM [facility] ESRD (end stage renal disease) (HCC) HEPATITIS C ANTIBODY Routine 11/08/2022 8:15 AM [facility] Stage 5 chronic kidney disease on chronic dialysis (HCC) PSA SCREEN Routine 11/08/2022 8:15 AM [facility] Stage 5 chronic kidney disease on chronic dialysis (HCC) from Last 3 Months or Most Recently Relevant to Health Maintenance Results * HLA Antibody Screen by PRA or SAB per Schedule (Class I and Class II) (12/21/2024 10:00 AM [facility]) Blood 12/21/2024 10:0 0 AM [facility] Narrative [facility] - [facility] Sample received in lab. Single Antigen Antibody Screen ordered. us Alonso rPuitt MD LAB BLOOD ORDERABLES Final Resu lt HISTOTRAC * HLA Antibody Screen - SAB (Class I and Class II) (12/21/2024 10:00 AM [facility]) Class I Treatment EDTA [facility] Class I [...] DPB1*01:01, DPB1*11:01 [facility] 12/21/2024 10:0 0 AM [facility] 12/25/2024 9:18 AM [facility] Narrative HISTOTRAC - 12/25/2024 9:18 AM [facility] Single-antigen HLA antibody screen is performed on serum samples using a method developed and validated by the [facility] laboratory based on an FDA-approved IVD kit (LABScreen Single-Antigen, [employer], [place], [place]). All patient serum samples are pretreated with EDTA before the screen to prevent complement interference. Additional serum treatments, such as adsorption and DTT treatment, may be performed as indicated. Interpretive comments: Low risk: MFI [id number]. Moderate risk: MFI [id number]. Increased risk: MFI >/= 5000. The presence [...] avoid. Testing performed at the [facility], [address] [place] [address], 5th floor, [place], [address]. IA # [id number]. Nicole Rivera, Ph.D., Jet Mechanic, HLA Laboratory Harman Flores M.D., Ph.D., Rod Filler, [facility] Laboratory Aviva Conway, Ph.D., CLIA Rod Filler, [facility] Current methodology and interpretive comments last revised on 11/22/2022. us Alonso Pruitt MD LAB BLOOD ORDERABLES Final Resu lt HISTOTRAC * PSA screen (11/08/2022 8:15 AM [facility]) PSA-Total 0.93 <=5.40 ng/mL UMANG ASTORGA Comment: Interpretive Data AGE SEX REFERENCE INTERVAL [...] last revised 22. Blood 11/08/2022 8:15 AM [facility] 11/08/2022 8:57 AM [facility] Perla Valadez MD LAB BLOOD ORDERABLE S Final Result Performing Organization Address [facility] Co de Phone Number [facility] [place] [employer] [place] [address] * Hepatitis C antibody (11/08/2022 8:15 AM [facility]) Hep C Ab Nonreactive Nonreactive [facility] Comment:Antibodies to HCV no t detected. Does NOT exclude the possibility of recent exposure to HCV. Current interpretive data was last revised on 22 Blood 11/08/2022 8:15 AM [facility] 11/08/2022 8:57 AM [facility] Perla Valadez MD LAB MICROBIOLOGY - GENERAL ORDERABLES Final Result Performing Organization Address [facility] Co de Phone Number [facility] [employer] [place] [employer] [place] [address] from Last 3 Months or Most Recently Relevant to Health Maintenance Insurance [facility] H[facility]/PPO Address: [place] [id number] MEDICARE [facility] H[facility]/PPO Address[address] [address] MEDICARE [facility] H[facility]/PPO Address: [address] [address] [place] [address] MEDICARE [facility] H[facility]/PPO Address: [address] [address] [place] [address] MEDICARE Advance Directives For more information, please contact: [phone] * Full Code (Latest Code Status on File) Date Activated Date Inactivated Comments 07/03/2020 3:51 PM 07/07/2020 4:44 PM * Full Code Date Activated Date Inactivated Comments 06/14/2020 5:08 PM 06/18/2020 10:40 PM Care Teams Community Relations Police Lieutenant Relationship Specialty Start Date End Date Gerardo Shah MD PCP - General Internal Medicine 09/30/18 Suzette Strickland MD [address] [facility] [address] [place] [address] Referring Physician Nephrology 02/15/20 Keiry Tapia, RN [address] [place] [address] Registered Nurse Transplant Nurse Practitioner 02/15/20
--- OUTSIDE RECORDS SUMMARY | 2025-02-18 09:12 | XMS_ITS | Encounter Summary ---
Author Organization [facility] Address [address] [place] [address] Phone Care Team Providers Care Medicinal Chemist Name Role Phone Gerardo Shah MD Primary Care Provider [phone] Reason for Visit * Reason Comments Med Refill Encounter Details Date Type Department Care Team (Late st Contact Info) Description 06/04/2022 Refill [facility] Nephrology and Hypertension [facility], [address] [address] Suzette Strickland MD [address] [facility], [address] [place] [id number] Social History Tobacco Use Types Packs/Day Years [...] on file Legal Sex Male 10:33 AM [facility] Gender Identity Not on file Sexual Orientation Not on file documented as of this encounter Plan of Treatment Not on file documented as of this encounter Visit Diagnoses Not on filedocumented in this encounter Care Teams Medicinal Chemist Relationship Specialty Start Date End Date Gerardo Shah MD [address] [place] [address] PCP - General Internal Medicine 12/28/19 documented as of this encounter
--- OUTSIDE RECORDS SUMMARY | 2025-02-18 09:12 | XMS_ITS | Encounter Summary ---
Author Organization [facility] Address [address] [place] [address] Phone Care Team Providers Care Sticker Machine Operator Name Role Phone Gerardo Shah MD Primary Care Provider [phone] Reason for Visit * Reason Comments Med Refill Encounter Details Date Type Department Care Team (Late st Contact Info) Description 06/21/2022 Refill [facility] Nephrology and Hypertension [facility], [address] [address] Suzette Strickland MD [address] [facility], [address] [place] [address] Social History Tobacco Use Types Packs/Day Years [...] on file Legal Sex Male 10:33 AM [facility] Gender Identity Not on file Sexual Orientation Not on file documented as of this encounter Plan of Treatment Not on file documented as of this encounter Visit Diagnoses Not on filedocumented in this encounter Care Teams Sticker Machine Operator Relationship Specialty Start Date End Date Gerardo Shah MD [address] [place] [address] PCP - General Internal Medicine 12/28/19 documented as of this encounter
--- OUTSIDE RECORDS SUMMARY | 2025-02-18 09:12 | XMS_ITS ---
Author Organization [facility] [address] Address [address] [place] [address] Care Team Providers Care Alternative Medicine Practitioner Name Role Phone Gerardo Shah MD Primary Care Provider [phone] Suzette Strickland MD Unavailable [phone] Keiry Tapia RN Unavailable [phone] Active Problems Patient Care Coordination No te Formatting of this note migh t be different from the original. 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 09/07/2021 Gastroesophageal reflux disease 06/08/2021 Hypertension 06/08/2021 Vitamin B12 deficiency 06/08/2021 Kidney disease 09/29/2020 Overview (09/29/2020): Added automatically from request for surgery [id number] Encounter for surgical after care following surgery of circulatory system 09/28/2020 Stage 5 chronic kidney disea se on chronic dialysis (CMS/HCC) 08/04/2020 Overview (08/04/2020): Added automatically from request for surgery [id number] End-stage renal disease (ESRD) 06/22/2020 Overview (06/22/2020): Added automatically from request for surgery [id number] Autosomal dominant polycystic kidney disease 06/2020 Overview (05/05/2020): Added automatically from request for surgery [id number] Polycystic kidney disease, autosomal dominant Stage 4 [...]
--- OUTSIDE RECORDS SUMMARY | 2025-02-18 09:12 | XMS_ITS ---
Author Organization [facility] [address] Address [address] [place] [address] Care Team Providers Care Outreach Associate Name Role Phone Gerardo Shah MD Primary Care Provider Suzette Strickland MD Unavailable [phone] Keiry Tapia RN Unavailable [phone] Transplant Episode Kidney Candidate [facility] ([place], [place]) [facility] Center waitlisted on 08/03/2020 Marked as Active on 08/15/2020 Reason: Listed in [facility] Kidney CoordinatorKeiry Tapia RN Email: N/A Scores Score Value Updated Exceptions/Reas ons CPRA 0 08/31/2020 EPTS (Calc) 62 02/18/2025 Care Team Name Role Phone Fax Email Keiry Tapia RN Kidney Coordinator [phone] N/A Suzette Strickland MD Referring Physician [phone] N/A Zhane Hatfield Operations Lieutenant [phone] N/A N/A Events Pre-Transplant Referred: 01/07/2020 Evaluation began: 02/18/2020 Committee: 08/01/2020 Center waitlisted: 08/03/2020 Dialysis History Dialysis History Start End Type Comments Center 11/09/2020 Hemo Mon,Wed,Fri 6am [facility] Dialysis Center Information Center Phone Fax Address [facility] [phone] [address] [place] [phone]
--- OUTSIDE RECORDS SUMMARY | 2025-02-18 09:12 | XMS_ITS | Clinical Summary ---
Author Organization [facility] [address] Address [address] [place] [address] Care Team Providers Care Woodworking Shop Hand Name Role Phone Gerardo Shah MD Primary Care Provider [phone] Suzette Strickland MD Unavailable [phone] Keiry Tapia RN Unavailable [phone] Allergies No known active allergies Medications [...] (09/29/2020): Added automatically from request for surgery [id number] Encounter for surgical after care following surgery of circulatory system 09/28/2020 Stage 5 chronic kidney disea se on chronic dialysis ([facility]) 08/04/2020 Overview (08/04/2020): Added automatically from request for surgery [id number] End-stage renal disease (ESRD) 06/22/2020 Overview (06/22/2020): Added automatically from request for surgery [id number] Autosomal dominant polycystic kidney disease 06/2020 Overview (05/05/2020): Added automatically from request for surgery [id number] Polycystic kidney disease, autosomal dominant Stage 4 chronic kidney disease 04/12/2020 Pre-transplant evaluation for kidney transplant 04/12/2020 Secondary hyperparathyroidism 04/12/2020 Other chest pain 12/23/2018 End stage renal disease Acute postoperative abdominal pain Resolved Problems Problem Noted Date Diagnosed Date Resolved Date Coronary arteriosclerosis 06/08/2021 Encounters Date Type Department Care Team Description 12/21/2024 10:00 AM FACING BASTER - 12/21/2024 11:59 PM FACING BASTER Hospital Encounter [address] [address] ESRD (end stage renal disease) ([facility]) Discharge Disposition: Discharge to home or self care from Last 3 Months Immunizations Immunization Administration [...] on file Legal Sex Male 4:54 AM FACING BASTER Gender Identity Not on file Sexual Orientation Straight 05/03/2020 10 :36 AM CDT Obstetrics History Last Filed Vital Signs Vital Sign Reading Time Taken Comments Blood Pressure 130/70 11/10/2024 7:57 AM FACING BASTER Pulse 67 11/10/2024 7:57 AM FACING BASTER Temperature 36.3 C (97.4 F) 09/07/2021 1:21 PM FACING BASTER Respiratory Rate 16 10/12/2020 1:20 PM FACING BASTER Oxygen Saturation 98% 11/10/2024 7:57 AM FACING BASTER Inhaled Oxygen Concentration - - Weight 82.1 kg (180 lb 14.4 oz) 11/10/2024 7:57 AM FACING BASTER Height 190.5 cm (6' 3 ) 11/10/2024 7:57 AM FACING BASTER Body Mass Index 22.61 11/10/2024 7:57 AM FACING BASTER Plan of Treatment Scheduled Procedures Name Priority [...] AND CLASS II) Routine 12/21/2024 10:00 AM FACING BASTER ESRD (end stage renal disease) (HCC) HLA ANTIBODY SCREEN BY PRA OR SAB PER SCHEDULE (CLASS I AND CLASS II) Routine 12/21/2024 10:00 AM FACING BASTER ESRD (end stage renal disease) (HCC) HEPATITIS C ANTIBODY Routine 11/08/2022 8:15 AM FACING BASTER Stage 5 chronic kidney disease on chronic dialysis (HCC) PSA SCREEN Routine 11/08/2022 8:15 AM FACING BASTER Stage 5 chronic kidney disease on chronic dialysis (HCC) from Last 3 Months or Most Recently Relevant to Health Maintenance Results * HLA Antibody Screen by PRA or SAB per Schedule (Class I and Class II) (12/21/2024 10:00 AM FACING BASTER) Blood 12/21/2024 10:0 0 AM FACING BASTER Narrative HISTOTRAC - FACING BASTER Sample received in lab. Single Antigen Antibody Screen ordered. us Alonso Pruitt MD LAB BLOOD ORDERABLES Final Resu lt HISTOTRAC * HLA Antibody Screen - SAB (Class I and Class II) (12/21/2024 10:00 AM FACING BASTER) Class I Treatment EDTA HISTOTRAC Class I [...] DPB1*01:01, DPB1*11:01 HISTOTRAC 12/21/2024 10:0 0 AM FACING BASTER 12/25/2024 9:18 AM FACING BASTER Narrative HISTOTRAC - 12/25/2024 9:18 AM FACING BASTER Single-antigen HLA antibody screen is performed on serum samples using a method developed and validated by the [facility] laboratory based on an FDA-approved IVD kit (LABScreen Single-Antigen, [employer], [facility] [place]). All patient serum samples are pretreated with EDTA before the screen to prevent complement interference. Additional serum treatments, such as adsorption and DTT treatment, may be performed as indicated. Interpretive comments: Low risk: MFI [id number]. Moderate risk: MFI [id number]. Increased risk: MFI >/= 5000. The presence [...] antigens to avoid. Testing performed at the [facility], [address] [place] [address], 5th floor, [place], [address]. CLIA # [id number]. Nicole Rivera, Ph.D., Cruller Maker Machine, [facility] Laboratory Harman Flores M.D., Ph.D., Cafeteria Helper, [facility] Aviva Conway, Ph.D., CLIA Cafeteria Helper, [facility] Current methodology and interpretive comments last revised on 11/22/2022. us Alonso Pruitt MD LAB BLOOD ORDERABLES Final Resu lt HISTOTRAC * PSA screen (11/08/2022 8:15 AM FACING BASTER) PSA-Total 0.93 <=5.40 ng/mL [facility] Comment: Interpretive Data AGE SEX REFERENCE INTERVAL [...] last revised 22. Blood 11/08/2022 8:15 AM FACING BASTER 11/08/2022 8:57 AM FACING BASTER us Perla Valadez MD LAB BLOOD ORDERABLE S Final Result [facility] Department [place] [address] * Hepatitis C antibody (11/08/2022 8:15 AM FACING BASTER) Hep C Ab Nonreactive Nonreactive [facility] Comment:Antibodies to HCV no t detected. Does NOT exclude the possibility of recent exposure to HCV. Current interpretive data was last revised on 22 Blood 11/08/2022 8:15 AM FACING BASTER 11/08/2022 8:57 AM FACING BASTER Perla Valadez MD LAB MICROBIOLOGY - GENERAL ORDERABLES Final Result Performing Organization Address [facility] Co de Phone Number [facility] [place] [address] from Last 3 Months or Most Recently Relevant to Health Maintenance Insurance [facility] MEDICARE [facility] MEDICARE [facility] MEDICARE [facility] MEDICARE Advance Directives For more information, please contact: [phone] * Full Code (Latest Code Status on File) Date Activated Date Inactivated Comments 07/03/2020 3:51 PM 07/07/2020 4:44 PM * Full Code Date Activated Date Inactivated Comments 06/14/2020 5:08 PM 06/18/2020 10:40 PM Care Teams Woodworking Shop Hand Relationship Specialty Start Date End Date Gerardo Shah MD PCP - General Internal Medicine 09/30/18 Suzette Strickland MD [address] [facility] [address] [place] [address] Referring Physician Nephrology 02/15/20 Keiry Tapia, RN [address] [place] [address] Registered Nurse Hemmer Chainstitch 02/15/20
--- OUTSIDE RECORDS SUMMARY | 2025-02-18 09:12 | XMS_ITS | Clinical Summary ---
Author Organization [facility] Address [address] [place] [address] Phone Care Team Providers Care Tube Maker Name Role Phone Gerardo Shah MD Primary Care Provider [phone] Allergies No known active allergies Medications amLODIPine [...] (05/11/2020): Added automatically from request for surgery [id number] Chronic kidney disease stage 4 04/12/2020 Secondary [...] Comments Blood Pressure 136/80 09/19/2020 8:37 AM STRADDLE BUG OPERATOR Pulse - - Temperature 36.8 C (98.2 F) 09/19/2020 8:37 AM STRADDLE BUG OPERATOR Respiratory Rate 18 09/19/2020 8:37 AM STRADDLE BUG OPERATOR Oxygen Saturation - - Inhaled Oxygen Concentration - - Weight 95.3 kg (210 lb) 09/19/2020 8:37 AM STRADDLE BUG OPERATOR Height 190.5 cm (6' 3 ) 09/19/2020 8:37 AM STRADDLE BUG OPERATOR Body Mass Index 26.25 09/19/2020 8:37 AM STRADDLE BUG OPERATOR Plan of Treatment Health Maintenance Due Date Last Done Comments Influenza Vaccine (Season Ended) 2025 Insurance Care Teams Tube Maker Relationship Specialty Start Date End Date Gerardo Shah MD [address] [place] [id number] PCP - General Internal Medicine 12/28/19
--- OUTSIDE RECORDS SUMMARY | 2025-02-18 09:12 | XMS_ITS | Encounter Summary ---
Author Organization [facility] Healthcare Address [address] [place] [address] Care Team Providers Care Manager Materials Management Name Role Phone Gerardo Shah MD Primary Care Provider [phone] Suzette Strickland MD Unavailable [phone] Keiry Tapia RN Unavailable [phone] Encounter Details Date Type Department Care Team (Late st Contact Info) Description 09/06/2020 Telephone [facility] Radiology [address] [place] [address] Marc Khan MD [phone] [place], [place] [id number] Social History Tobacco Use Types Packs/Day Years Used Date Smoking Tobacco: Former Cigarettes 1.5 40 0 04/11/1978 - 2017 Smokeless Tobacco: Never Alcohol Use Standard Drinks/Week Comments Yes 2 (1 standard drink = 0.6 oz pur e alcohol) Sex and Gender Information Value Date Recorded Sex Assigned at Not on file Legal Sex Male 4:54 AM CUFF TURNER Gender Identity Not on file Sexual Orientation Straight 05/03/2020 10 :36 AM CDT documented as of this encounter Plan of Treatment Scheduled Procedures Name Priority Associated Diagnoses Date/Ti me TRANSPLANT KIDNEY ESRD (end stage renal disease) (HCC) documented as of this encounter Visit Diagnoses Not on filedocumented in this encounter Care Teams Manager Materials Management Relationship Specialty Start Date End Date Gerardo Shah MD PCP - General Internal Medicine 09/30/18 Suzette Strickland MD [address] [facility] [address] [place] [address] Referring Physician Nephrology 02/15/20 Keiry Tapia, RN [address] [place] [address] Registered Nurse Tank Wagon Operator 02/15/20 documented as of this encounter
[2025-02-18 09:28] LABS: Basophils Absolute Auto 0.09 K/mm3 (0.00-0.10); Basophils Percent Auto 1.2 % (0.0-1.0); Eosinophils Percent Auto 1.3 % (1.0-6.0); Hematocrit 37.6 % (40.0-54.0); Hemoglobin 11.2 g/dL (14.0-18.0); Immature Granulocyte Absolute 0.04 K/mm3 (0.00-0.00); Immature Granulocyte Percent A 0.5 % (0.0-0.0); Lymphocytes Absolute Auto 2.21 K/mm3 (1.10-4.50); Lymphocytes Percent Auto 28.9 % (18.0-42.0); Mean Corpuscular HGB Conc 29.8 g/dL (32-36); Mean Corpuscular Hemoglobin 30.9 pg (27.0-31.0); Mean Corpuscular Volume 103.6 fL (78.0-102.0); Mean Platelet Volume 9.4 fl (8.7-11.0); Monocytes Absolute Auto 0.99 K/mm3 (0.10-0.90); Monocytes Percent Auto 12.9 % (2.0-11.0); Neutrophils Absolute Auto 4.22 K/mm3 (1.70-7.20); Neutrophils Percent Auto 55.2 % (50.0-70.0); Platelet Count Result 345 K/mm3 (150-420); Red Blood Count 3.63 M/mm3 (4.70-6.10); Red Cell Distribution Width 15.4 % (11.6-14.4); White Blood Count 7.7 K/mm3 (4.8-10.8)
[2025-02-18 10:12] LABS: Toxigenic C. Diff NEGATIVE (NEGATIVE)
[2025-02-18 10:17] LABS: Alanine Aminotransferase 16 U/L (16-63); Albumin Level 3.6 g/dL (3.4-5.0); Alkaline Phosphatase 129 U/L (46-116); Anion Gap 6 mmol/L (4-12); Aspartate Amino Transferase 15 U/L (15-37); Bilirubin,Total 0.7 mg/dL (0.00-1.00); Blood Urea Nitrogen 54 mg/dL (7-18); Calcium 8.2 mg/dL (8.5-10.1); Carbon Dioxide 37 mmol/L (21-32); Chloride 102 mmol/L (98-108); Glucose 122 mg/dL (70-99); Osmolality Calculated 315 mOsm/kg (285-295); Potassium 6.2 mmol/L (3.5-5.1); Sodium 145 mmol/L (136-145)
[2025-02-18 10:30] LABS: Estimated Glomerular Filt Rate 7
[2025-02-22 18:08] LABS: Mycoplasma IgM Antibody Titer 88 U/mL
[2025-02-22 22:04] LABS: S cerevisiae Ab (IgA) 15.2 U (<=20.0); S cerevisiae Ab (IgG) 25.4 U (<=20.0)
== END 2025-02-18 08:44 | disposition home or self-care (01) ==
PROVIDERS: PCP Internal Medicine; Visit Provider Internal Medicine
DX: J18.9 Pneumonia, unspecified organism (principal); K52.9 Noninfective gastroenteritis and colitis, unspecified; J44.9 Chronic obstructive pulmonary disease, unspecified; R94.2 Abnormal results of pulmonary function studies
CPT/HCPCS: 36415; 80053; 85025; 86036; 86140; 86631; 86632; 86671; 86738; 87045; 87177; 87209; 87427; 87449; 87493; 94060; 94726; 94729

== ENCOUNTER 2025-06-10 01:38 | Day surgery (SDC) | payer MEDICARE, OTHER, SELFPAY ==
[2025-05-24 14:52] VITALS: BMI 22.6
--- OUTSIDE RECORDS SUMMARY | 2025-06-10 01:43 | XMS_ITS ---
Author Organization [facility] [address] Address [address] [place] [address] Care Team Providers Care Miniature Train Driver Name Role Phone Gerardo Shah MD Primary Care Provider [phone] Suzette Strickland MD Unavailable [phone] Keiry Tapia RN Unavailable [phone] Active Problems Patient Care Coordination No te Formatting of this note migh t be different from the original. 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 09/07/2021 Gastroesophageal reflux disease 06/08/2021 Hypertension 06/08/2021 Vitamin B12 deficiency 06/08/2021 Kidney disease 09/29/2020 Overview (09/29/2020): Added automatically from request for surgery [id number] Encounter for surgical after care following surgery of circulatory system 09/28/2020 Stage 5 chronic kidney disea se on chronic dialysis (CMS/HCC) 08/04/2020 Overview (08/04/2020): Added automatically from request for surgery [id number] End-stage renal disease (ESRD) 06/22/2020 Overview (06/22/2020): Added automatically from request for surgery [id number] Autosomal dominant polycystic kidney disease 06/2020 Overview (05/05/2020): Added automatically from request for surgery [id number] Polycystic kidney disease, autosomal dominant Stage 4 [...]
--- OUTSIDE RECORDS SUMMARY | 2025-06-10 01:43 | XMS_ITS | Clinical Summary ---
Author Organization [facility] Address [address], [address] [address] Phone Care Team Providers Care Commercial Plumber Name Role Phone Gerardo Shah MD Primary Care Provider [phone] Stan Mendez DO Unavailable Social History Tobacco Use Types Packs/Day Years Used Date Smoking Tobacco: Never Assessed Sex and Gender Information Value Date Recorded Sex Assigned at Not on file Legal Sex Male 12:33 PM GERONTOLOGY AIDE Gender Identity Not on file Sexual Orientation Not on file Plan of Treatment Health Maintenance Due Date Last Done Comments Hepatitis C Virus (HCV) Screening 1960 TdaP Immunization 1960 Cologuard 02/20/2005 Colonoscopy 02/20/2005 Colorectal Cancer Screening 02/20/2005 Immunochemical Fecal Occult Blood 02/20/2005 Pneumococcal Immunization (5 0+ years) (1 of 1 - PCV) 02/20/2010 Zoster Immunization (1 of 2) 02/20/2010 SARS-COV-2 Immunization (1 - season) 2024 Influenza Immunization (#1) 2025 Respiratory Syncytial Virus (RSV) Immunization (Adult) (1 - 1-dose 75+ series) 02/20/2035 Hepatitis B Immunization Aged Out No longer eligible based on patient's age to complete this topic Human Papillomavirus (HPV) Immunization Aged Out No longer eligible b ased on patient's age to complete this topic Meningococcal Immunization (ACWY) Aged Out No longer eligible based on patient's age to complete this topic Rotavirus Immunization Aged Out No lo nger eligible based on patient's age to complete this topic Insurance [facility] Care Teams Commercial Plumber Relationship Specialty Start Date End Date Gearrdo Shah MD [address] [place] [address] PCP - General Internal Medicine 11/05/18 Stan Mendez DO [address] [place] [address] Gastroenterology 11/05/18
--- OUTSIDE RECORDS SUMMARY | 2025-06-10 01:43 | XMS_ITS ---
Author Organization [facility] [address] Address [address] [place] [address] Care Team Providers Care Rn Case Manager Hospice Name Role Phone Gerardo Shah MD Primary Care Provider Suzette Strickland MD Unavailable [phone] Keiry Tapia RN Unavailable [phone] Transplant Episode Kidney Candidate [facility] ([place], [place]) [facility] Center waitlisted on 08/03/2020 Marked as Active on 08/15/2020 Reason: Listed in [facility] Kidney CoordinatorKeiry Tapia RN Email: N/A Scores Score Value Updated Exceptions/Reas ons CPRA 0 08/31/2020 EPTS (Calc) 65 06/10/2025 Care Team Name Role Phone Fax Email Keiry Tapia RN Kidney Coordinator [phone] N/A Suzette Strickland MD Referring Physician [phone] N/A Zhane Hatfield Dampener [phone] N/A N/A Events Pre-Transplant Referred: 01/07/2020 Evaluation began: 02/18/2020 Committee: 08/01/2020 Center waitlisted: 08/03/2020 Dialysis History Dialysis History Start End Type Comments Center 11/09/2020 Hemo Mon,Wed,Fri 6am [facility] Dialysis Center Information Center Phone Fax Address [facility] [phone] [address] [place] [phone]
--- OUTSIDE RECORDS SUMMARY | 2025-06-10 01:43 | XMS_ITS | Encounter Summary ---
Author Organization [facility] Healthcare Address [address] [place] [address] Care Team Providers Care Sap Enterprise Portal Consultant Name Role Phone Gerardo Shah MD Primary Care Provider [phone] Suzette Strickland MD Unavailable [phone] Keiry Tapia RN Unavailable [phone] Encounter Details Date Type Department Care Team (Late st Contact Info) Description 09/06/2020 Telephone [facility] Radiology [address] [place] [address] Marc Khan MD [phone] [place], [place] [id number] Social History Tobacco Use Types Packs/Day Years Used Date Smoking Tobacco: Former Cigarettes 1.5 40 0 04/11/1978 - 2017 Smokeless Tobacco: Never Alcohol Use Standard Drinks/Week Comments Yes 2 (1 standard drink = 0.6 oz pur e alcohol) Sex and Gender Information Value Date Recorded Sex Assigned at Not on file Legal Sex Male 4:54 AM BUTT MAKER Gender Identity Not on file Sexual Orientation Straight 05/03/2020 10 :36 AM CDT documented as of this encounter Plan of Treatment Scheduled Procedures Name Priority Associated Diagnoses Date/Ti me TRANSPLANT KIDNEY ESRD (end stage renal disease) (HCC) documented as of this encounter Visit Diagnoses Not on filedocumented in this encounter Care Teams Sap Enterprise Portal Consultant Relationship Specialty Start Date End Date Gerardo Shah MD PCP - General Internal Medicine 09/30/18 Suzette Strickland MD [address] [facility] [address] [place] [address] Referring Physician Nephrology 02/15/20 Keiry Tapia, RN [address] [place] [address] Registered Nurse Business Process Specialist 02/15/20 documented as of this encounter
--- OUTSIDE RECORDS SUMMARY | 2025-06-10 01:43 | XMS_ITS | Clinical Summary ---
Author Organization [facility] [address] Address [address] [place] [address] Care Team Providers Care Ship Engineer Name Role Phone Gerardo Shah MD Primary Care Provider Suzette Strickland MD Unavailable [phone] Keiry Tapia RN Unavailable [phone] Allergies No known active allergies Medications [...] chest pain 30 tablet [address] (PROTONIX) 40 mg EC tablet Take 1 tablet (40 mg total) by mouth 2 (two) times a day 5 Active isosorbide mononitrate ER (IMDUR) 30 mg 24 hr tabletIndications :Prinzmetal's angina Take 1 tablet (30 mg total) by mouth every morning 90 tablet 3 5 Active amLODIPine (NORVASC) 5 mg tablet TAKE ONE TABLET BY MOUTH EVERY MORNING 90 tablet 2 5 Active calcium carbonate-vitamin D3 2,500 mg (1,000 mg elemental)-800 unit tablet Take by mouth Active Active Problems Patient Care Coordination No te Formatting of this note migh t be different from the original. Verbal consent - Meghann Juares Robin Problem Noted Date Diagnosed Date Prinzmetal's angina 03/12/2023 Malignant neoplasm of right kidney 09/07/2021 Gastroesophageal reflux disease 06/08/2021 Hypertension 06/08/2021 Vitamin B12 deficiency 06/08/2021 Kidney disease 09/29/2020 Overview (09/29/2020): Added automatically from request for surgery [id number] Encounter for surgical after care following surgery of circulatory system 09/28/2020 Stage 5 chronic kidney disea se on chronic dialysis ([facility]) 08/04/2020 Overview (08/04/2020): Added automatically from request for surgery [id number] End-stage renal disease (ESRD) 06/22/2020 Overview (06/22/2020): Added automatically from request for surgery [id number] Autosomal dominant polycystic kidney disease 06/2020 Overview (05/05/2020): Added automatically from request for surgery [id number] Polycystic kidney disease, autosomal dominant Stage 4 chronic kidney disease 04/12/2020 Pre-transplant evaluation for kidney transplant 04/12/2020 Secondary hyperparathyroidism 04/12/2020 Other chest pain 12/23/2018 End stage renal disease Acute postoperative abdominal pain Resolved Problems Problem Noted Date Diagnosed Date Resolved Date Coronary arteriosclerosis 06/08/2021 Encounters Date Type Department Care Team Description 06/01/2025 11:00 AM CDT Office Visit [facility] Cardiology [address] [place] [address] Danna Reynoso NP Prinzmetal's angina; Lipid screening 04/19/2025 10:00 AM CDT - 04/19/2025 11:59 PM CDT Hospital Encounter [facility] [address] [place] [address] ESRD (end stage renal disease) (HCC) Discharge Disposition: Discharge to home or self care 04/15/2025 9:00 AM CDT Social Work [facility], 8th Floor, [place] [address] aMrie Rodriguez LCSW 03/24/2025 10:00 AM CDT - 03/24/2025 11:59 PM CDT Hospital Encounter [address] [address] ESRD (end stage renal disease) (HCC) Discharge [...] and vomiting) COPD (chronic obstructive pulmonary disease) mild Bradycardia Sepsis (HCC) Family History Medical [...] on file Legal Sex Male 4:54 AM HOSPICE FELLOW Gender Identity Not on file Sexual Orientation Straight 05/03/2020 10 :36 AM CDT Obstetrics History Last Filed Vital Signs Vital Sign Reading Time Taken Comments Blood Pressure 108/70 06/01/2025 11:04 AM CDT Pulse 79 06/01/2025 11:04 AM CDT Temperature 36.3 C (97.4 F) 09/07/2021 1:21 PM HOSPICE FELLOW Respiratory Rate 16 10/12/2020 1:20 PM HOSPICE FELLOW Oxygen Saturation 93% 06/01/2025 11:04 AM CDT Inhaled Oxygen Concentration - - Weight 81.6 kg (180 lb) 06/01/2025 11:04 AM CDT Height 190.5 cm (6' 3) 06/01/2025 11:04 AM CDT Body Mass Index 22.5 06/01/2025 11:04 AM CDT Plan of Treatment Scheduled Procedures Name Priority Associated Diagnoses Date/Ti me TRANSPLANT KIDNEY ESRD (end stage renal disease) (HCC) Health Maintenance Due Date Last Done Comments Colon Cancer Screening-Colonoscopy 1960 Depression Screening 1960 DTaP/Tdap/Td Vaccine (1 - Tdap) 02/20/1971 Lung Cancer Screening 02/20/2010 Pneumococcal vaccine 65+ (1 of 1 - PCV) 02/20/2010 Zoster Vaccine (1 of 2) 02/20/2010 Fall Risk Assessment 10/05/2021 10/05/2020 Prostate Cancer Screening-PSA 11/08/2024 11/08/2022, 06/08/2021 Abdominal Aortic Aneurysm (A AA) Screen 02/20/2025 04/04/2020 Well Visit 65+ 02/20/2025 Influenza Vaccine (#1) 2025 07/28/2019 Hepatitis C Screening Completed 11/08/2022 , 06/08/2021, 04/04/2020 Hepatitis B Screening Completed 01/18/2023 , 11/08/2022, 09/26/2022, Additional history exists Procedures Procedure Name Priority Date/Time Associated Diagnosis Comments POCT LIPID PANEL Routine 06/01/2025 11:1 0 AM CDT Lipid screening HLA ANTIBODY SCREEN - SAB (CLASS I AND CLASS II) Routine 04/19/2025 10:00 AM CDT ESRD (end stage renal disease) (HCC) HLA ANTIBODY SCREEN BY PRA OR SAB PER SCHEDULE (CLASS I AND CLASS II) Routine 04/19/2025 10:00 AM CDT ESRD (end stage renal disease) (HCC) HLA ANTIBODY SCREEN BY PRA OR SAB PER SCHEDULE (CLASS I AND CLASS II) Routine 03/24/2025 10:00 AM CDT ESRD (end stage renal disease) (HCC) HEPATITIS C ANTIBODY Routine 11/08/2022 8:15 AM HOSPICE FELLOW Stage 5 chronic kidney disease on chronic dialysis (HCC) PSA SCREEN Routine 11/08/2022 8:15 AM HOSPICE FELLOW Stage 5 chronic kidney disease on chronic dialysis (HCC) CT ABDOMEN PELVIS WO CONTRAST Schedule Routine, Read Routine (OP Routine) 04/04/2020 12:48 PM CDT End stage renal disease (HCC) from Last 3 Months or Most Recently Relevant to Health Maintenance Results * (ABNORMAL) POCT lipid panel (06/01/2025 11:10 AM CDT) Cholesterol, POC 119 <200 MG/DL HDL, POC 39(A) >=40 mg/dL Triglycerides, POC 96 <=149 mg/dL LDL Cholesterol POC 61 <=129 mg/dL Chol/HDL Ratio, POC 1.6 NONE Non-HDL Cholesterol, POC 80 NONE mg/dL Cholesterol Total, POC 119 30 - 199 mg/dL Capillary blood 06/01/2025 1 1:10 AM CDT Danna Reynoso NP POINT OF CARE TEST ORDERA BLES Final Result * HLA Antibody Screen by PRA or SAB per Schedule (Class I and Class II) (04/19/2025 10:00 AM CDT) Blood 04/19/2025 10:0 0 AM CDT Narrative [facility] - HOSPICE FELLOW Sample received in lab. Single Antigen Antibody Screen ordered. Alonso Pruitt MD LAB BLOOD ORDERABLES Final Resu lt [facility] * HLA Antibody Screen - SAB (Class I and Class II) (04/19/2025 10:00 AM CDT) Class I Treatment EDTA [facility] Class I Dilution 1:1 [facility] Class I Tested Date 04/22/2025 [facility] Class I Result Positive [facility] Class I CPRA 3 [facility] Class I Moderate Risk B55 [facility] Class I Low Risk A34; B54, B56 [facility] Class II Treatment EDTA [facility] Class II Dilution 1:1 [facility] Class II Tested Date 04/22/2025 [facility] Class II Result Positive [facility] Class II CPRA 35 [facility] Class II Moderate Risk DQ7 [facility] Class II Low Risk DQ7; DPB1*01:01 [facility] 04/19/2025 10:0 0 AM CDT 04/23/2025 1:59 PM CDT Narrative [facility] - 04/23/2025 1:59 PM CDT Single-antigen HLA antibody screen is performed on serum samples using a method developed and validated by the [facility] HLA laboratory based on an FDA-approved IVD kit (LABScreen Single-Antigen, [employer], [place], [place]). All patient serum samples are pretreated with EDTA before the screen to prevent complement interference. Additional serum treatments, such as adsorption and DTT treatment, may be performed as indicated. Interpretive comments: Low risk: MFI [id number]. Moderate risk: MFI [id number]. Increased risk: MFI >/= 5000. The presence [...] antigens to avoid. Testing performed at the [facility], [address] [place] [address], 5th floor, [place], [address]. [facility] # [id number]. Nicole Rivera, Ph.D., Feed Elevator Worker, HLA Laboratory Harman Flores M.D., Ph.D., Vacuum Evaporation Operator, HLA Laboratory Aviva Conway, Ph.D., CLIA Vacuum Evaporation Operator, [facility] Current methodology and interpretive comments last revised on 11/22/2022. Alonso Pruitt MD LAB BLOOD ORDERABLES Final Resu lt Performing Organization Address City/State/[facility] Co de Phone Number [facility] * HLA Antibody Screen by PRA or SAB per Schedule (Class I and Class II) (03/24/2025 10:00 AM CDT) Blood 03/24/2025 10:0 0 AM CDT Narrative [facility] - HOSPICE FELLOW Sample received in lab and stored. No testing performed at this time. Alonso Pruitt MD LAB BLOOD ORDERABLES Final Resu lt Performing Organization Address City/State/[facility] Co de Phone Number [facility] * PSA screen (11/08/2022 8:15 AM HOSPICE FELLOW) PSA-Total 0.93 <=5.40 ng/mL [facility] Comment: Interpretive Data AGE SEX [...] last revised 22. Blood 11/08/2022 8:15 AM HOSPICE FELLOW 11/08/2022 8:57 AM HOSPICE FELLOW Perla Valadez MD LAB BLOOD ORDERABLE S Final Result Performing Organization Address [facility] de Phone Number [facility] [place] [address] * Hepatitis C antibody (11/08/2022 8:15 AM HOSPICE FELLOW) Hep C Ab Nonreactive Nonreactive [facility] Comment:Antibodies to HCV no t detected. Does NOT exclude the possibility of recent exposure to HCV. Current interpretive data was last revised on 22 Blood 11/08/2022 8:15 AM HOSPICE FELLOW 11/08/2022 8:57 AM HOSPICE FELLOW Perla Valadez MD LAB MICROBIOLOGY - GENERAL ORDERABLES Final Result Performing Organization Address [facility] Co de Phone Number [facility] [place] [address] * CT Abdomen Pelvis WO Contrast (04/04/2020 12:48 PM CDT) Anatomical Region Laterality Modality Body N/A Computed Tomogra phy 04/04/2020 1:02 PM CDT Addenda Addendum by Nitish Rodriguez MD on 07/11/2021 4:15 PM CDT Follow up abdomen and pelvis CT completed 07/03/20. Aye DIETRICH, RN. Edited by: Aye Decker Electronically signed by: Nitish Rodriguez M.D. Impressions 04/04/2020 1:02 PM CDT 1. Minimal abdominal aortic and right common [...] CT. Electronically signed by: Nitish Rodriguez M.D. Narrative 04/04/2020 1:02 PM CDT EXAMINATION: Computed tomography of the abdomen and [...] IM CT PROCEDURES Edited Result - Final from Last 3 Months or Most Recently Relevant to Health Maintenance Insurance [facility] HMO/PPO Address: [address] [address] [place] [address] MEDICARE [facility] HMO/PPO Address: [address] [id number] MEDICARE [facility] HMO/PPO Address: [address] [address] [place] [address] MEDICARE [facility] HMO/PPO Address: [address] [address] [place] [address] MEDICARE Advance Directives For more information, please contact: [phone] * Full Code (Latest Code Status on File) Date Activated Date Inactivated Comments 07/03/2020 3:51 PM 07/07/2020 4:44 PM * Full Code Date Activated Date Inactivated Comments 06/14/2020 5:08 PM 06/18/2020 10:40 PM Care Teams Ship Engineer Relationship Specialty Start Date End Date Gerardo Shah MD PCP - General Internal Medicine 09/30/18 Suzette Strickland MD [address] [facility] [address] [place] [address] Referring Physician Nephrology 02/15/20 Keiry Tapia, RN [address] [place], [place] [id number] Registered Nurse Gate Agent 02/15/20
--- OUTSIDE RECORDS SUMMARY | 2025-06-10 01:45 | XMS_ITS | Encounter Summary ---
Author Organization [facility] Address [address] [place] [address] Phone Care Team Providers Care Assistant Sales Manager Name Role Phone Gerardo Shah MD Primary Care Provider [phone] Reason for Visit * Reason Comments Med Refill Encounter Details Date Type Department Care Team (Late st Contact Info) Description 06/04/2022 Refill [facility] Nephrology and Hypertension [facility], [address] [address] Suzette Strickland MD [address] [facility], [address] [place] [address] Social History Tobacco Use Types Packs/Day Years [...] on file Legal Sex Male 10:33 AM [facility] Gender Identity Not on file Sexual Orientation Not on file documented as of this encounter Plan of Treatment Not on file documented as of this encounter Visit Diagnoses Not on filedocumented in this encounter Care Teams Assistant Sales Manager Relationship Specialty Start Date End Date Gerardo Shah MD [address] [place] [address] PCP - General Internal Medicine 12/28/19 documented as of this encounter
--- OUTSIDE RECORDS SUMMARY | 2025-06-10 01:45 | XMS_ITS | Encounter Summary ---
Author Organization [facility] Address [address] [place] [address] Phone Care Team Providers Care Attending Psychiatrist Name Role Phone Gerardo Shah MD Primary Care Provider [phone] Reason for Visit * Reason Comments Med Refill Encounter Details Date Type Department Care Team (Late st Contact Info) Description 06/21/2022 Refill [facility] Nephrology and Hypertension [facility], [address] [address] Suzette Strickland MD [address] [facility], [address] [place] [address] Social History Tobacco Use Types Packs/Day Years [...] file Legal Sex Male 10:33 AM [facility] Gender Identity Not on file Sexual Orientation Not on file documented as of this encounter Plan of Treatment Not on file documented as of this encounter Visit Diagnoses Not on filedocumented in this encounter Care Teams Attending Psychiatrist Relationship Specialty Start Date End Date Gerardo Shah MD [address] [place] [address] PCP - General Internal Medicine 12/28/19 documented as of this encounter
--- OUTSIDE RECORDS SUMMARY | 2025-06-10 01:45 | XMS_ITS | Clinical Summary ---
Author Organization [facility] Address [address] [place] [address] Phone Care Team Providers Care Discharge Coordinator Name Role Phone Gerardo Shah MD Primary Care Provider [phone] Allergies No known active allergies Medications amLODIPine [...] (05/11/2020): Added automatically from request for surgery [id number] Chronic kidney disease stage 4 04/12/2020 Secondary [...] Comments Blood Pressure 136/80 09/19/2020 8:37 AM AUTOMATIC STEEL TIE ADJUSTER Pulse - - Temperature 36.8 C (98.2 F) 09/19/2020 8:37 AM AUTOMATIC STEEL TIE ADJUSTER Respiratory Rate 18 09/19/2020 8:37 AM AUTOMATIC STEEL TIE ADJUSTER Oxygen Saturation - - Inhaled Oxygen Concentration - - Weight 95.3 kg (210 lb) 09/19/2020 8:37 AM AUTOMATIC STEEL TIE ADJUSTER Height 190.5 cm (6' 3) 09/19/2020 8:37 AM AUTOMATIC STEEL TIE ADJUSTER Body Mass Index 26.25 09/19/2020 8:37 AM AUTOMATIC STEEL TIE ADJUSTER Plan of Treatment Health Maintenance Due Date Last Done Comments Pneumococcal PPSV23/PCV13 65 + Years / Low and Medium Risk (1 of 2 - PCV) 02/20/2010 Influenza Vaccine (#1) 2025 Insurance Care Teams Discharge Coordinator Relationship Specialty Start Date End Date Gerardo Shah MD [address] [place] [address] PCP - General Internal Medicine 12/28/19
[2025-06-10 08:13] VITALS: BP 134/71; PULSE 53; RESP 20; TEMP 36.8; O2SAT 98
--- NOTE | 2025-06-10 08:15 | P.PNAN_ITS ---
Anes - Initial Pre Proc Eval Procedure: Operation Date: 06/10/25 09:30 Proposed Procedures p Esophagogastroduodenoscopy & Colonoscopy - Milind Travis MD Date/Time: 06/10/25 08:15 Surgeon: Milind Travis MD Pre Op Diagnosis: Dysphagia, unspecified, Dyskinesia of esophagus Patient Data Age: 65 Gender: M Height: 1.91 m Weight: 82.7 kg Last Vital Signs Temp 36.8 C 06/10/25 08:13 Pulse 53 L 06/10/25 08:13 Resp 20 06/10/25 08:13 BP 134/71 06/10/25 08:13 Pulse Ox 98 06/10/25 08:13 O2 Del Method Room Air 06/10/25 08:13 Allergies Allergy/AdvReac Type Severity Reaction Status Date / Time No Known Allergies Allergy Verified 05/25/25 09:18 Home Medications ?Medication ?Instructions ?Recorded ?Confirmed ?Type amlodipine 5 mg tablet (Norvasc) See Rx Instructions .Route .COMPLEX 12/21/19 06/10/25 History aspirin 81 mg tablet,delayed See Rx Instructions .Route .COMPLEX 12/21/19 06/10/25 History release (Sheng Low Dose Aspirin) isosorbide mononitrate 30 mg 30 mg PO QAM #30 tabs 05/17/23 06/10/25 Rx tablet,extended release 24 hr bumetanide 1 mg tablet 1 mg PO DAILY #90 tabs 07/21/24 06/10/25 Rx pantoprazole 40 mg tablet,delayed 40 mg PO BID 4 weeks #60 tabs 10/11/24 06/10/25 Rx release (Protonix) sevelamer carbonate 800 mg tablet 800 mg PO TID 05/25/25 06/10/25 History Patient hx anesthesia problems: none Family hx anesthesia problems: none Results Review: All pre-operative results and documents have been reviewed as part of the pre- operative evaluation. FORMERLY [facility], [facility] Past Medical History Medical History NSTEMI (non-ST elevated myocardial infarction) Renal osteodystrophy ESRD (end stage renal disease) on dialysis CKD (chronic kidney disease) stage 4, GFR 15-29 ml/min Colon cancer screening Anemia Ankle fracture, left Polycystic kidney disease GERD (gastroesophageal reflux disease) Pneumonia Asthma Emphysema of lung COPD (chronic obstructive pulmonary disease) HTN (hypertension) Myocardial infarction NSTEMI Surgical History Surgical History History of nephrectomy Right History of bladder surgery S/P cardiac catheterization Family History Family History Mother PCK (polycystic kidney disease) Social History Social History Smoking packs per day: 1.5 Smoking cigarettes per day: 30.0 Years smoked: 35 Smoking pack-years: 52.50 Smoking status: Former smoker Tobacco type: cigarettes Alcohol intake: never Substance use: never Substance use type: does not use Lack of Transportation: No Lack of Food: Never True Current Housing: I Have Housing Concerned About Future Housing: No Difficulty Paying Gas/Electric Bills: No Difficulty Paying for Meds: No Currently Unemployed: No Education: High School Diploma/GED Difficulty w/ Childcare or Family Care: No Living arrangements: with family Gender identity (if verbalized by the patient): Male Sexual Orientation (if Verbalized by the Patient): Straight or Heterosexual Spiritual care concerns: No Anes - Eval Final PreProcedure Day of Procedure 06/10/25 08:15 Patient weight: normal Heart: regular rate and rhythm Lungs: clear to auscultation and normal air movement Airway: Mallampati scale class II Neurological: alert and oriented Last oral intake: >/= 8 hours ASA classification: IV Emergent: no Anesthetic plan: proceed Anesthesia type and monitoring: general GIVS and standard monitoring Results Review: All pre-operative results and documents have been reviewed as part of the pre- operative evaluation. Informed Consent: The patient's anesthetic plan and its attendant risks and benefits were discussed with the patient/family/POA. Questions were solicited and answers provided to the satisfaction of the patient/family/POA.
[2025-06-10] MEDS: SODIUM CHLORIDE 0.9% IV 500 ML 10 ML IV CONT (08:24)
--- NOTE | 2025-06-10 08:50 | PM.HPGS ---
History of Present Illness History of Present Illness Consent: Risks, benefits, and alternatives have been discussed and questions answered. Patient agrees to proceed with procedure. Chief complaint: Dysphagia, unspecified, Dyskinesia of esophagus Narrative: Abel Browne is a 65 year old male here for egd and colonoscopy. He reports dysphagia with both solids and occasionally liquids. He describes food and sometimes water getting stuck and needing to come back up. He states this happens infrequently at this times. He notes that hot beverages like coffee help open up his esophagus, last EGD 2022- Moderate stenosis in the mid esophagus and tertiary contractions noted, had esophageal balloon dilation up to 18 mm, diverticula in the mid esophagus, last colonoscopy 2019, recent CT scan showed possible thickening in rectosigmoid. History of PKD on dialysis. Review of Systems Review of Systems: All systems reviewed & are unremarkable except as noted in HPI and below PMFSH Past Medical History Medical History NSTEMI (non-ST elevated myocardial infarction) Renal osteodystrophy ESRD (end stage renal disease) on dialysis CKD (chronic kidney disease) stage 4, GFR 15-29 ml/min Colon cancer screening Anemia Ankle fracture, left Polycystic kidney disease GERD (gastroesophageal reflux disease) Pneumonia Asthma Emphysema of lung COPD (chronic obstructive pulmonary disease) HTN (hypertension) Myocardial infarction NSTEMI Surgical History Surgical History History of nephrectomy Right History of bladder surgery S/P cardiac catheterization Family History Family History Mother PCK (polycystic kidney disease) Social History Social History Smoking packs per day: 1.5 Smoking cigarettes per day: 30.0 Years smoked: 35 Smoking pack-years: 52.50 Smoking status: Former smoker Tobacco type: cigarettes Alcohol intake: never Substance use: never Substance use type: does not use Lack of Transportation: No Lack of Food: Never True Current Housing: I Have Housing Concerned About Future Housing: No Difficulty Paying Gas/Electric Bills: No Difficulty Paying for Meds: No Currently Unemployed: No Education: High School Diploma/GED Difficulty w/ Childcare or Family Care: No Living arrangements: with family Gender identity (if verbalized by the patient): Male Sexual Orientation (if Verbalized by the Patient): Straight or Heterosexual Spiritual care concerns: No Meds Home Medications and Allergies Home Medications ?Medication ?Instructions ?Recorded ?Confirmed ?Type amlodipine 5 mg tablet (Norvasc) See Rx Instructions .Route .COMPLEX 12/21/19 06/10/25 History aspirin 81 mg tablet,delayed See Rx Instructions .Route .COMPLEX 12/21/19 06/10/25 History release (Sheng Low Dose Aspirin) isosorbide mononitrate 30 mg 30 mg PO QAM #30 tabs 05/17/23 06/10/25 Rx tablet,extended release 24 hr bumetanide 1 mg tablet 1 mg PO DAILY #90 tabs 07/21/24 06/10/25 Rx pantoprazole 40 mg tablet,delayed 40 mg PO BID 4 weeks #60 tabs 10/11/24 06/10/25 Rx release (Protonix) sevelamer carbonate 800 mg tablet 800 mg PO TID 05/25/25 06/10/25 History Allergies Allergy/AdvReac Type Severity Reaction Status Date / Time No Known Allergies Allergy Verified 05/25/25 09:18 Vital Signs Vital Signs - 24 hr 06/10/25 08:13 Temperature 98.2 F Pulse Rate 53 L Respiratory Rate 20 Blood Pressure 134/71 Pulse Oximetry 98 Oxygen Delivery Room Air Exam Const: General: comfortable and no acute distress HENMT: Face/Nose/Sinus: Normal nares present Eyes: General: appearance normal, both eyes and all related structures Neck: Neck: no JVD Resp: Auscultation: clear to auscultation bilaterally Cardio: Rate: regular rate Rhythm: regular rhythm GI: Inspection: non-distended GI Palp: Yes Soft to palpation Skin: General skin exam: normal color Neuro: Speech: normal speech Extrem: General: normal to inspection Psych: Mental Status: mental status grossly normal Assessment and Plan Assessment and plan (1) Dysphagia: Code(s): R13.10 - Dysphagia, unspecified Status: Acute Assessment and Plan: egd (2) Esophageal motility disorder: Code(s): K22.4 - Dyskinesia of esophagus Status: Acute (3) Abnormal CT scan, colon: Code(s): R93.3 - Abnormal findings on diagnostic imaging of other parts of digestive tract Status: Acute Assessment and Plan: colonoscopy
--- NOTE | 2025-06-10 09:06 | SUR.OPER ---
EGD: [id number] COLON: Start 904
--- NOTE | 2025-06-10 09:14 | S_PTH ---
PATIENT: Abel Browne LOC: [facility]#:[id number] AGE/SX: 65/M ROOM: RE06/10/[address]: Milind Travis MD : 1960 BED: DIS: 06/10/2025 SPEC #: [id number] RECD: 06/10/25 10:38 STATUS: JAKE HERNANDEZ #: [id number] MANJULA: 06/10/25 09:[address]: Milind Travis DEPT: [facility] Surgical RECD BY: Amber Owusu Tissues: A - Colon Polypectomy B - Biopsy Procedures: Hematoxylin and Eosin Stain Gross and Microscopic Level 4
[2025-06-10 09:28] VITALS: BP 88/57; PULSE 70; RESP 21; O2SAT 99
[2025-06-10 09:38] VITALS: BP 86/55; PULSE 66; RESP 19; O2SAT 99
[2025-06-10 09:48] VITALS: BP 121/65; PULSE 57; RESP 19; O2SAT 99
== END 2025-06-10 09:58 | disposition home or self-care (01) ==
PROVIDERS: Referring Provider Nurse Practitioner; Visit Provider Internal Medicine Gastroenterology
PROC: 0DJ08ZZ Inspection of Upper Intestinal Tract, Via Natural or Artificial Opening Endoscopic (ICD-10-PCS; CPT 45378; principal; 2025-06-10 09:30)
DX: R93.3 Abnormal findings on diagnostic imaging of other parts of digestive tract (principal); K22.4 Dyskinesia of esophagus; D12.2 Benign neoplasm of ascending colon; K62.89 Other specified diseases of anus and rectum; K57.30 Diverticulosis of large intestine without perforation or abscess without bleeding; K63.5 Polyp of colon; I12.9 Hypertensive chronic kidney disease with stage 1 through stage 4 chronic kidney disease, or unspecified chronic kidney disease; N18.6 End stage renal disease; I25.2 Old myocardial infarction; D64.9 Anemia, unspecified; Q61.3 Polycystic kidney, unspecified; K21.9 Gastro-esophageal reflux disease without esophagitis; J45.909 Unspecified asthma, uncomplicated; J43.9 Emphysema, unspecified; Z79.82 Long term (current) use of aspirin; Z99.2 Dependence on renal dialysis; Z98.890 Other specified postprocedural states; Z98.61 Coronary angioplasty status; Z90.5 Acquired absence of kidney; Z87.891 Personal history of nicotine dependence
CPT/HCPCS: 43450; 45380; 45385; 88305; J2003; J2704; J7040

== ENCOUNTER 2025-06-11 11:28 | Emergency (ER) | payer MEDICARE, OTHER, SELFPAY ==
[2025-06-11 11:34] VITALS: BP 100/65; PULSE 97; RESP 18; TEMP 36.4; O2SAT 95
--- OUTSIDE RECORDS SUMMARY | 2025-06-11 12:18 | XMS_ITS | Encounter Summary ---
Author Organization [facility] Healthcare Address [address] [place] [address] Care Team Providers Care Key Operator Name Role Phone Gerardo Shah MD Primary Care Provider Suzette Strickland MD Unavailable [phone] Keiry Tapia RN Unavailable [phone] Encounter Details Date Type Department Care Team (Late st Contact Info) Description 09/06/2020 Telephone [facility] Radiology [address] [place] [address] Marc Khan MD [id number] [place], [place] [id number] Social History Tobacco Use Types Packs/Day Years Used Date Smoking Tobacco: Former Cigarettes 1.5 40 0 04/11/1978 - 2017 Smokeless Tobacco: Never Alcohol Use Standard Drinks/Week Comments Yes 2 (1 standard drink = 0.6 oz pur e alcohol) Sex and Gender Information Value Date Recorded Sex Assigned at Not on file Legal 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 Gender Identity Not on file Sexual Orientation Straight 05/03/2020 10 :36 AM CDT documented as of this encounter Plan of Treatment Scheduled Procedures Name Priority Associated Diagnoses Date/Ti me TRANSPLANT KIDNEY ESRD (end stage renal disease) (HCC) documented as of this encounter Visit Diagnoses Not on filedocumented in this encounter Care Teams Key Operator Relationship Specialty Start Date End Date Gerardo Shah MD PCP - General Internal Medicine 09/30/18 Suzette Strickland MD [address] [facility] [address] [place] [address] Referring Physician Nephrology 02/15/20 Keiry Tapia, RN [address] [place] [address] Registered Nurse Quality Control Checker 02/15/20 documented as of this encounter
--- OUTSIDE RECORDS SUMMARY | 2025-06-11 12:18 | XMS_ITS | Clinical Summary ---
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
--- OUTSIDE RECORDS SUMMARY | 2025-06-11 12:18 | XMS_ITS ---
Author Organization [facility] [address] Address [address] [place] [address] Care Team Providers Care Scalemaker Name Role Phone Gerardo Shah MD Primary Care Provider Suzette Strickland MD Unavailable [phone] Keiry Tapia RN Unavailable [phone] Active Problems Patient Care Coordination No te Formatting of this note migh t be different from the original. 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 09/07/2021 Gastroesophageal reflux disease 06/08/2021 Hypertension 06/08/2021 Vitamin B12 deficiency 06/08/2021 Kidney disease 09/29/2020 Overview (09/29/2020): Added automatically from request for surgery [id number] Encounter for surgical after care following surgery of circulatory system 09/28/2020 Stage 5 chronic kidney disea se on chronic dialysis (CMS/HCC) 08/04/2020 Overview (08/04/2020): Added automatically from request for surgery [id number] End-stage renal disease (ESRD) 06/22/2020 Overview (06/22/2020): Added automatically from request for surgery [id number] Autosomal dominant polycystic kidney disease 06/2020 Overview (05/05/2020): Added automatically from request for surgery [id number] Polycystic kidney disease, autosomal dominant Stage 4 [...]
--- OUTSIDE RECORDS SUMMARY | 2025-06-11 12:19 | XMS_ITS | Clinical Summary ---
Author Organization [facility] [address] Address [address] [place] [address] Care Team Providers Care Station Helper Name Role Phone Gerardo Shah MD Primary Care Provider [phone] Suzette Strickland MD Unavailable [phone] Keiry Tapia RN Unavailable [phone] Allergies No known active allergies Medications [...] (09/29/2020): Added automatically from request for surgery [id number] Encounter for surgical after care following surgery of circulatory system 09/28/2020 Stage 5 chronic kidney disea se on chronic dialysis ([facility]) 08/04/2020 Overview (08/04/2020): Added automatically from request for surgery [id number] End-stage renal disease (ESRD) 06/22/2020 Overview (06/22/2020): Added automatically from request for surgery [id number] Autosomal dominant polycystic kidney disease 06/2020 Overview (05/05/2020): Added automatically from request for surgery [id number] Polycystic kidney disease, autosomal dominant Stage 4 chronic kidney disease 04/12/2020 Pre-transplant evaluation for kidney transplant 04/12/2020 Secondary hyperparathyroidism 04/12/2020 Other chest pain 12/23/2018 End stage renal disease Acute postoperative abdominal pain Resolved Problems Problem Noted Date Diagnosed Date Resolved Date Coronary arteriosclerosis 06/08/2021 Encounters Date Type Department Care Team Description 06/01/2025 11:00 AM CDT Office Visit [facility] Cardiology [address] [place] [address] Danna Reynoso NP Prinzmetal's angina; Lipid screening 04/19/2025 10:00 AM CDT - 04/19/2025 11:59 PM CDT Hospital Encounter [facility] [address] [place] [address] ESRD (end stage renal disease) (HCC) Discharge Disposition: Discharge to home or self care 04/15/2025 9:00 AM CDT Social Work 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 Gender Identity Not on file Sexual Orientation Straight 05/03/2020 10 :36 AM CDT Obstetrics History Last Filed Vital Signs Vital Sign Reading Time Taken Comments Blood Pressure 108/70 06/01/2025 11:04 AM CDT Pulse 79 06/01/2025 11:04 AM CDT Temperature 36.3 C (97.4 F) 09/07/2021 1:21 PM CHUCKING LATHE OPERATOR Respiratory Rate 16 10/12/2020 1:20 PM CHUCKING LATHE OPERATOR Oxygen Saturation 93% 06/01/2025 11:04 AM CDT [...] HEPATITIS C ANTIBODY Routine 11/08/2022 8:15 AM CHUCKING LATHE OPERATOR Stage 5 chronic kidney disease on chronic dialysis (HCC) PSA SCREEN Routine 11/08/2022 8:15 AM CHUCKING LATHE OPERATOR Stage 5 chronic kidney disease on [...] 10:0 0 AM CDT Narrative [facility] - CHUCKING LATHE OPERATOR Sample received in lab. Single Antigen [...] a method developed and validated by the [facility] HLA laboratory based on an FDA-approved IVD kit (LABScreen Single-Antigen, [employer], [place], [place]). All patient serum samples are pretreated with EDTA before the screen to prevent complement interference. Additional serum treatments, such as adsorption and DTT treatment, may be performed as indicated. Interpretive comments: Low risk: MFI 1003-1203. Moderate risk: MFI 9946-2067. Increased risk: MFI >/= 5000. The presence [...] at the [facility], [address] [place] [address], 5th floor, [place], [address]. [facility] # [id number]. Nicole Rivera, Ph.D., Foreign Clerk, HLA Laboratory Harman Flores M.D., Ph.D., Chair Upholsterer, HLA Laboratory Aviva Conway, Ph.D., CLIA Chair Upholsterer, [facility] Clinical Laboratories Current methodology and interpretive comments last revised on 11/22/2022. Alonso Pruitt MD LAB BLOOD ORDERABLES Final Resu lt Performing Organization Address City/State/[facility] Co de Phone Number [facility] * HLA Antibody Screen by PRA or SAB per Schedule (Class I and Class II) (03/24/2025 10:00 AM CDT) Blood 03/24/2025 10:0 0 AM CDT Narrative [facility] - CHUCKING LATHE OPERATOR Sample received in lab and stored. No testing performed at this time. Alonso Pruitt MD LAB BLOOD ORDERABLES Final Resu lt Performing Organization Address City/State/[facility] Co de Phone Number [facility] * PSA screen (11/08/2022 8:15 AM CHUCKING LATHE OPERATOR) PSA-Total 0.93 <=5.40 ng/mL [facility] Comment: Interpretive Data AGE SEX REFERENCE [...] last revised 22. Blood 11/08/2022 8:15 AM CHUCKING LATHE OPERATOR 11/08/2022 8:57 AM CHUCKING LATHE OPERATOR Perla Valadez MD LAB BLOOD ORDERABLE S Final Result Performing Organization Address [facility] de Phone Number [facility] [place] [address] * Hepatitis C antibody (11/08/2022 8:15 AM CHUCKING LATHE OPERATOR) Hep C Ab Nonreactive Nonreactive [facility] Comment:Antibodies to HCV no t detected. Does NOT exclude the possibility of recent exposure to HCV. Current interpretive data was last revised on 22 Blood 11/08/2022 8:15 AM CHUCKING LATHE OPERATOR 11/08/2022 8:57 AM CHUCKING LATHE OPERATOR Perla Valadez MD LAB MICROBIOLOGY - GENERAL ORDERABLES Final Result Performing Organization Address [facility] Co de Phone Number [facility] [place] [address] * CT Abdomen Pelvis WO Contrast (04/04/2020 [...] Most Recently Relevant to Health Maintenance Insurance [facility] MEDICARE [facility] Member Subscriber Plan / Payer (Ef fective 2012-Present) Name:Natividad Browne Relation to Subscriber:Spouse Name:BLANQUITA BROWNE Date of :1960 (Home) Address: [address] [place] [address] Payer ID:[id number] (NAIC) Type:[facility] HMO/PPO Address: [address] [id number] MEDICARE [facility] MEDICARE [facility] MEDICARE Advance Directives For more information, please contact: [phone] * Full Code (Latest Code Status on File) Date Activated Date Inactivated Comments 07/03/2020 3:51 PM 07/07/2020 4:44 PM * Full Code Date Activated Date Inactivated Comments 06/14/2020 5:08 PM 06/18/2020 10:40 PM Care Teams Station Helper Relationship Specialty Start Date End Date Gerardo Shah MD PCP - General Internal Medicine 09/30/18 Suzette Strickland MD [address] [facility] [address] [place] [address] Referring Physician Nephrology 02/15/20 Keiry Tapia, RN [address] [place], [place] [id number] Registered Nurse Marketing Sales Manager 02/15/20
--- OUTSIDE RECORDS SUMMARY | 2025-06-11 12:19 | XMS_ITS | Clinical Summary ---
Author Organization [facility] Address [address] [place] [address] Phone Care Team Providers Care Window Glass Installer Name Role Phone Gerardo Shah MD Primary Care Provider [phone] Allergies No known active allergies Medications amLODIPine [...] (05/11/2020): Added automatically from request for surgery [id number] Chronic kidney disease stage 4 04/12/2020 Secondary [...] Comments Blood Pressure 136/80 09/19/2020 8:37 AM STEEL FABRICATING SUPERVISOR Pulse - - Temperature 36.8 C (98.2 F) 09/19/2020 8:37 AM STEEL FABRICATING SUPERVISOR Respiratory Rate 18 09/19/2020 8:37 AM STEEL FABRICATING SUPERVISOR Oxygen Saturation - - Inhaled Oxygen Concentration - - Weight 95.3 kg (210 lb) 09/19/2020 8:37 AM STEEL FABRICATING SUPERVISOR Height 190.5 cm (6' 3) 09/19/2020 8:37 AM STEEL FABRICATING SUPERVISOR Body Mass Index 26.25 09/19/2020 8:37 AM STEEL FABRICATING SUPERVISOR Plan of Treatment Health Maintenance Due Date Last Done Comments Pneumococcal PPSV23/PCV13 65 + Years / Low and Medium Risk (1 of 2 - PCV) 02/20/2010 Influenza Vaccine (#1) 2025 Insurance Care Teams Window Glass Installer Relationship Specialty Start Date End Date Gerardo Shah MD [address] [place] [address] PCP - General Internal Medicine 12/28/19
--- OUTSIDE RECORDS SUMMARY | 2025-06-11 12:19 | XMS_ITS ---
Author Organization [facility] [address] Address [address] [place] [address] Care Team Providers Care Taxi Driver Supervisor Name Role Phone Gerardo Shah MD Primary Care Provider Suzette Strickland MD Unavailable [phone] Keiry Tapia RN Unavailable [phone] Transplant Episode Kidney Candidate [facility] ([place], [place]) [facility] Center waitlisted on 08/03/2020 Marked as Active on 08/15/2020 Reason: Listed in [facility] Kidney CoordinatorKeiry Tapia RN Email: N/A Scores Score Value Updated Exceptions/Reas ons CPRA 0 08/31/2020 EPTS (Calc) 65 06/11/2025 Care Team Name Role Phone Fax Email Keiry Tapia RN Kidney Coordinator [phone] N/A Suzette Strickland MD Referring Physician [phone] N/A Zhane Hatfield Collar Closer Lockstitch [phone] N/A N/A Events Pre-Transplant Referred: 01/07/2020 Evaluation began: 02/18/2020 Committee: 08/01/2020 Center waitlisted: 08/03/2020 Dialysis History Dialysis History Start End Type Comments Center 11/09/2020 Hemo Mon,Wed,Fri 6am [facility] Dialysis Center Information Center Phone Fax Address [facility] [phone] [address] [place] [address]
--- OUTSIDE RECORDS SUMMARY | 2025-06-11 12:19 | XMS_ITS | Encounter Summary ---
Author Organization [facility] Address [address] [place] [address] Phone Care Team Providers Care Carpet Installation Specialist Name Role Phone Gerardo Shah MD Primary Care Provider [phone] Reason for Visit * Reason Comments Med Refill Encounter Details Date Type Department Care Team (Late st Contact Info) Description 06/04/2022 Refill [facility] Nephrology and Hypertension [facility], [address] [address] Suzette Strickland MD [address] [facility], [address] [place] [address] Social History Tobacco Use Types Packs/Day Years [...] on file Legal Sex Male 10:33 AM [facility] Gender Identity Not on file Sexual Orientation Not on file documented as of this encounter Plan of Treatment Not on file documented as of this encounter Visit Diagnoses Not on filedocumented in this encounter Care Teams Carpet Installation Specialist Relationship Specialty Start Date End Date Gerardo Shah MD [address] [place] [address] PCP - General Internal Medicine 12/28/19 documented as of this encounter
--- OUTSIDE RECORDS SUMMARY | 2025-06-11 12:19 | XMS_ITS | Encounter Summary ---
Author Organization [facility] Address [address] [place] [address] Phone Care Team Providers Care Ditcher Operator Name Role Phone Gerardo Shah MD Primary Care Provider [phone] Reason for Visit * Reason Comments Med Refill Encounter Details Date Type Department Care Team (Late st Contact Info) Description 06/21/2022 Refill [facility] Nephrology and Hypertension [facility], [address] [address] Suzette Strickland MD [address] [facility], [address] [place] [address] Social History Tobacco Use Types Packs/Day Years [...] on file Legal Sex Male 10:33 AM [facility] Gender Identity Not on file Sexual Orientation Not on file documented as of this encounter Plan of Treatment Not on file documented as of this encounter Visit Diagnoses Not on filedocumented in this encounter Care Teams Ditcher Operator Relationship Specialty Start Date End Date Gerardo Shah MD [address] [place] [address] PCP - General Internal Medicine 12/28/19 documented as of this encounter
== END 2025-06-11 12:41 | disposition left against medical advice (07) ==
PROVIDERS: Emergency Provider Student in an Organized Health Care Education/Training Program
DX: R10.9 Unspecified abdominal pain (principal)
CPT/HCPCS: 99199